=== PATIENT | male | born 1935 | race Native Hawaiian/Other Pacific Islander ===

== ENCOUNTER 2016-11-09 19:40 | Inpatient (IN) | payer MEDICAID ==
[2016-11-09] VITALS (9 sets, daily range): BP systolic 137–165; BP diastolic 62–77; PULSE 63–115; RESP 18–20; TEMP 98.1–98.6; O2SAT 88–100
[~2016-11-09] VITALS: Ht 177.8 cm; Wt 76.0 kg
[~2016-11-09 19:40] MED LIST: LORTA5 PO; METR-1 PO; SULF-154 PO; Z.0.UNKNOWN
[2016-11-09] MEDS ORDERED: ONDANSETRON HCL 4 MG/2 ML VIAL IVP ONE (20:00)
[2016-11-09] MEDS ORDERED: SODIUM CHLORIDE 0.9% FLUSH 10 ML FLUSH IVF PRN ×2 (20:00→22:15)
[2016-11-09 20:22] LABS: AUTOMATED NEUTROPHIL # 2.7 TH/MM3 (1.8-7.7); BASOPHIL % 0.1 % (0.0-2.0); EOSINOPHIL # 0.1 TH/MM3 (0-0.4); EOSINOPHIL % 0.5 % (0.0-4.0); LYMPH % 85.6 % (9.0-44.0); LYMPHOCYTE # 24.8 TH/MM3 (1.0-4.8); MEAN CELL VOLUME 89.3 FL (80.0-100.0); MEAN CORPUSCULAR HEMOGLOBIN 28.2 PG (27.0-34.0); MEAN CORPUSCULAR HGB CONC 31.6 % (32.0-36.0); MONO % 4.5 % (0.0-8.0); NEUT % 9.3 % (16.0-70.0); PLATELET COUNT 243 TH/MM3 (150-450); RED BLOOD COUNT 3.69 MIL/MM3 (4.50-5.90); RED CELL DISTRIBUTION WIDTH 18.8 % (11.6-17.2); WHITE BLOOD COUNT 28.9 TH/MM3 (4.0-11.0)
[2016-11-09] MEDS ORDERED: [UNRECOGNIZED DRUG - OTHER] PO (20:26)
[2016-11-09] MEDS ORDERED: [UNRECOGNIZED DRUG - OTHER] PO (20:26)
[2016-11-09] MEDS ORDERED: VESI5TAB2 PO (20:26)
[2016-11-09] MEDS ORDERED: PROS5TAB PO (20:26)
[2016-11-09] MEDS ORDERED: BISO5TAB5 PO (20:26)
[2016-11-09] MEDS ORDERED: GLIM1 PO (20:26)
[2016-11-09] MEDS ORDERED: TAMS0.4C4 PO (20:26)
--- NOTE | 2016-11-09 20:27 | PD ---
HPI Chief Complaint: Fall Time Seen by Provider: 19:51 Travel History International Travel<30 days: No Contact w/Intl Traveler<30days: No Traveled to known affect area: No History of Present Illness HPI 80-year-old male presents to the emergency department by EMS transport from home with backboard C-spine immobilization after a witnessed fall with loss of consciousness. According to the shrink pit operator report and a family member at bedside patient was walking up towards his family's home and when he went to make a step upwards he caught his foot on the step causing him to lose his balance and fall backwards hitting his head. Patient did have witnessed loss of consciousness. Patient apparently also had vomiting and when the paramedics arrived he was in a right lateral decubitus rescue position. Patient was placed on backboard C-spine immobilization Zofran was administered and there is been no further vomiting since the reported emesis at the scene. Patient continues to complain of nausea and dizziness. Patient does not report any arm or leg numbness or weakness. Patient has history of hypertension and atrial fibrillation. Patient takes only aspirin no other blood thinning agents reportedly. Other family members are en route to the hospital with patient's medications. PFSH Past Medical History Cardiovascular Problems: Yes Social History Alcohol Use: No Tobacco Use: No Allergies-Medications (Allergen,Severity, Reaction): Coded Allergies: Penicillins (Verified Allergy, Unknown, 11/09/16) Reported Meds & Prescriptions Reported Meds & Active Scripts Active Reported Vesicare (Solifenacin) 5 Mg Tab 5 Mg PO DAILY Tamsulosin (Tamsulosin HCl) 0.4 Mg Cap 0.4 Mg PO HS [stugeron] 25 Mg PO DAILY [urilax] 10 Mg PO DAILY Amaryl (Glimepiride) 1 Mg Tab 1 Mg PO DAILY Take with breakfast or first main meal Proscar (Finasteride) 5 Mg Tab 5 Mg PO DAILY Do not crush. Bisoprolol (Bisoprolol Fumarate) 5 Mg Tab 5 Mg PO DAILY Physical Exam Narrative GENERAL: Well-developed well-nourished male in no acute respiratory distress with backboard C-spine immobilization; GCS 14 SKIN: Warm and dry. HEAD: Atraumatic. Normocephalic. Posterior scalp area of erythema without laceration or abrasion. EYES: Pupils equal and round. Extraocular muscles intact. No scleral icterus. No injection or drainage. ENT: No nasal bleeding or discharge. Mucous membranes pink and moist. No hemotympanum bilaterally. NECK: Trachea midline. No JVD. Cervical collar in place. CARDIOVASCULAR: Regular rate and rhythm. RESPIRATORY: No accessory muscle use. Clear to auscultation. Breath sounds equal bilaterally. GASTROINTESTINAL: Abdomen soft, non-tender, nondistended. Hepatic and splenic margins not palpable. MUSCULOSKELETAL: Extremities without clubbing, cyanosis, or edema. No obvious deformities. With maintained spinal immobilization patient has been log rolled from the backboard direct palpation along the thoracic and dorsal spine elicits no pain and no bony step-off no ecchymosis or abrasion. NEUROLOGICAL: Awake and alert. No obvious cranial nerve deficits. Motor grossly within normal limits. Five out of 5 muscle strength in the arms and legs. Normal speech. PSYCHIATRIC: Appropriate mood and affect; insight and judgment normal. Data Data Last Documented VS Vital Signs Date Time Temp Pulse Resp B/P (MAP) Pulse Ox O2 Delivery O2 Flow Rate FiO2 11/09/16 21:20 87 18 161/72 (101) 97 Nasal Cannula 4.00 11/09/16 19:46 98.6 Orders Orders Electrocardiogram (11/09/16 19:51) Complete Blood Count With Diff (11/09/16 19:51) Comprehensive Metabolic Panel (11/09/16 19:51) Magnesium (Mg) (11/09/16 19:51) Act Partial Throm Time (Ptt) (11/09/16 19:51) Prothrombin Time / Inr (Pt) (11/09/16 19:51) Urinalysis - C+S If Indicated (11/09/16 19:51) Chest, Single Ap (11/09/16 19:51) Ct Brain W/O Iv Contrast(Rout) (11/09/16 19:51) Ct Cerv Spine W/O Contrast (11/09/16 19:51) Blood Glucose (11/09/16 19:51) Ecg Monitoring (11/09/16 19:51) Iv Access Insert/Monitor (11/09/16 19:51) Oximetry (11/09/16 19:51) Ondansetron Inj (Zofran Inj) (11/09/16 20:00) Sodium Chloride 0.9% Flush (Ns Flush) (11/09/16 20:00) Type And Screen (11/09/16 21:00) Platelet Pheresis (11/09/16 21:00) Blood Product Administration (11/09/16 21:00) Sodium Chlor 0.9% 250 Ml Inj (Ns 250 Ml (11/09/16 21:00) Admit Order (Ed Use Only) (11/09/16 ) ^ Saline Lock (11/09/16 22:02) Resp Oxygen Adrian C Titrat 1-4 L (11/09/16 ) Notify Dr: Other (11/09/16 22:02) Sodium Chloride 0.9% Flush (Ns Flush) (11/10/16 09:00) Sodium Chloride 0.9% Flush (Ns Flush) (11/09/16 22:15) Labs Laboratory Tests Test 11/09/16 20:05 White Blood Count 28.9 TH/MM3 Red Blood Count 3.69 MIL/MM3 Hemoglobin 10.4 GM/DL Hematocrit 33.0 % Mean Corpuscular Volume 89.3 FL Mean Corpuscular Hemoglobin 28.2 PG Mean Corpuscular Hemoglobin Concent 31.6 % Red Cell Distribution Width 18.8 % Platelet Count 243 TH/MM3 Mean Platelet Volume 7.0 FL Neutrophils (%) (Auto) 9.3 % Lymphocytes (%) (Auto) 85.6 % Monocytes (%) (Auto) 4.5 % Eosinophils (%) (Auto) 0.5 % Basophils (%) (Auto) 0.1 % Neutrophils # (Auto) 2.7 TH/MM3 Lymphocytes # (Auto) 24.8 TH/MM3 Monocytes # (Auto) 1.3 TH/MM3 Eosinophils # (Auto) 0.1 TH/MM3 Basophils # (Auto) 0.0 TH/MM3 CBC Comment AUTO DIFF Differential Total Cells Counted 100 Neutrophils % (Manual) 12 % Lymphocytes % 85 % Monocytes % 3 % Neutrophils # (Manual) 3.5 TH/MM3 Differential Comment FINAL DIFF MANUAL Platelet Estimate NORMAL Platelet Morphology Comment NORMAL Ovalocytes 1+ Keratocytes 1+ Prothrombin Time 12.3 SEC Prothromb Time International Ratio 1.1 RATIO Activated Partial Thromboplast Time 28.6 SEC Blood Urea Nitrogen 14 MG/DL Creatinine 0.62 MG/DL Random Glucose 108 MG/DL Total Protein 5.3 GM/DL Albumin 2.5 GM/DL Calcium Level 6.8 MG/DL Magnesium Level 1.4 MG/DL Alkaline Phosphatase 67 U/L Aspartate Amino Transf (AST/SGOT) 20 U/L Alanine Aminotransferase (ALT/SGPT) 17 U/L Total Bilirubin 0.7 MG/DL Sodium Level 141 MEQ/L Potassium Level 3.3 MEQ/L Chloride Level 111 MEQ/L Carbon Dioxide Level 24.1 MEQ/L Anion Gap 6 MEQ/L Estimat Glomerular Filtration Rate 124 ML/MIN Protein Corrected Calcium 7.7 MG/DL MDM Medical Decision Making Medical Screen Exam Complete: Yes Emergency Medical Condition: Yes Medical Record Reviewed: Yes Interpretation(s) Last Impressions Head CT 11/09/161950 Signed Impressions: Service Date/Time: Wednesday, November 09, 2016 20:14 - CONCLUSION: 1. Small to moderate size subdural hematoma along the right temporal and parietal lobes. 2. Multiple areas of high density intraparenchymal versus subarachnoid hemorrhage. Cj Isidro MD Chest X-Ray 11/09/161950 Signed Impressions: Service Date/Time: Wednesday, November 09, 2016 20:22 - CONCLUSION: Streaky interstitial opacities in both lungs. The chronicity of the findings are not known without prior studies for comparison. This may represent scarring and/or fibrosis. Pulmonary edema is less likely. Cj Isidro MD Cervical Spine CT 11/09/161950 Signed Impressions: Service Date/Time: Wednesday, November 09, 2016 20:14 - CONCLUSION: Negative trauma CT. Cj Isidro MD CBC & BMP Diagram 11/09/16 20:05 Total Protein 5.3 L, Albumin 2.5 L, Calcium Level 6.8 *L, Magnesium Level 1.4 L , Alkaline Phosphatase 67, Aspartate Amino Transf (AST/SGOT) 20, Alanine Aminotransferase (ALT/SGPT) 17, Total Bilirubin 0.7 Differential Diagnosis Minor closed head injury, CHI, skull fracture, concussion, arrhythmia, syncope, electrolyte disturbance, cervical spine sprain strain fracture, cord compression , TIA, CVA Narrative Course Patient placed on performing arts road manager log rolled off the backboard cervical collar remains in place; patient sent for urgent/emergent CT brain noncontrast Patient given additional antirheumatic At 8:35 PM son at bedside states that patient was attempting to step up onto a step of the home lost his balance fell backwards hit his head with immediate loss of consciousness that was estimated at 10-15 minutes during that time frame he did have an episode of 35 minutes of stiffening type tonic movement and then afterwards son rolled him over onto his side and shortly thereafter the patient seemed open his eyes appeared confused and then had an episode of vomiting. Shortly thereafter the patient was verbalizing that he wanted to set up and the son would not let him and shortly thereafter EMS arrived. Cervical collar removed by me after CT imaging reveals no acute abnormality. Patient and family informed of intracranial bleed with need for admission to the [facility] [place]. Call placed to neurosurgeon, Dr. Godfrey @ 9:50 PM Daughter in law at bedside reports recent increased dizziness and balance disturbance from baseline x 2 weeks no recent headaches no severe headaches and no family member holding the patient during fall --near by and witnessed @10 PM patient in ED noted to have increasing blood pressure systolic greater than 160mmHg --nicardipine ordered Ordered morphine sulfate 3 mg IV administered 2 mg as patient did not need additional dose of 1 mg has been wasted and not administered; pain medicine administered for complaint of pain It is [address] Godfrey is at patient's bedside Physician Communication Physician Communication discussed with NS Dr Godfrey will see in the ED and will admit; discussed with trauma surgeon Dr Philip--reports isolated head injury --to NS recommends 2 units platelets now Diagnosis Primary Impression: Subdural hematoma Additional Impression: Concussion Admitting Information Admitting Physician Requests: Admit Jeni William MD Nov 09, 2016 20:27
[2016-11-09 20:30] LABS: HEMO FLAGS AUTO DIFF
[2016-11-09 20:36] LABS: APTT (PATIENT) 28.6 SEC (24.3-30.1); INTERNATIONAL NORMALIZED RATIO 1.1 RATIO; PROTHROMBIN TIME - PATIENT 12.3 SEC (9.8-11.6)
--- NOTE | 2016-11-09 20:38 | RADRPT ---
EXAM DATE/TIME: 11/09/2016 20:14 [facility] COMPARISON: No previous studies available for comparison. INDICATIONS : Acute mental status changes after head trauma.. RADIATION DOSE: 32.43 CTDIvol (mGy) MEDICAL HISTORY : Cardiovascular disease. SURGICAL HISTORY : Non-responsive. ENCOUNTER: Initial ACUITY: 1 day PAIN SCALE: Non-responsive LOCATION: cranial TECHNIQUE: Multiple contiguous axial images were obtained of the head. Using automated exposure control and adj ustment of the mA and/or kV according to patient size, radiation dose was kept as low as reasonably a chievable to obtain optimal diagnostic quality images. DICOM format image data is available electro nically for review and comparison. FINDINGS: There is a high density subdural hematoma along the right frontal and parietal lobes measuring up to approximately 8 mm in transverse diameter. There are multiple areas of high density contusion and/or subarachnoid hemorrhage involving portions of the anterior frontal lobes, right frontal lobe and both high parietal lobes. The ventricular system is within normal limits. There is no midline shift. Diff use moderate atrophic changes noted. The posterior fossa and brainstem are intact. The suprasellar ci sterns are patent. The bone windows demonstrate no evidence of fracture. There soft tissue swelling over the right parie estephania bone. CONCLUSION: 1. Small to moderate size subdural hematoma along the right temporal and parietal lobes. 2. Multiple areas of high density intraparenchymal versus subarachnoid hemorrhage. Cj Isidro MD on November 09, 2016 at 20:31 Board Certified Radiologist. This report was verified electronically.
--- NOTE | 2016-11-09 20:40 | RADRPT ---
EXAM DATE/TIME: 11/09/2016 20:14 [facility] COMPARISON: No previous studies available for comparison. INDICATIONS : Acute mental status change after trauma. Intracranial hemorrhage.. RADIATION DOSE: 21.02 CTDIvol (mGy) MEDICAL HISTORY : Cardiovascular disease. SURGICAL HISTORY : Non-responsive. ENCOUNTER: Initial ACUITY: 1 day PAIN SCALE: Non-responsive LOCATION: neck TECHNIQUE: Volumetric scanning of the cervical spine was performed. Multiplanar reconstructions i n the sagittal, coronal and oblique axial planes were performed. Using automated exposure control a nd adjustment of the mA and/or kV according to patient size, radiation dose was kept as low as reason ably achievable to obtain optimal diagnostic quality images. DICOM format image data is available e lectronically for review and comparison. FINDINGS: The sagittal reconstructions demonstrate normal alignment and normal prevertebral soft tissues. The d ens is intact and there is a normal atlantoaxial relationship. Degenerative disc changes are present at the C3-4 through C6-7 levels with disc space narrowing hypertrophic change. There is diffuse osteo penia. The axial images demonstrate that the vertebral bodies and posterior elements are intact. The soft ti ssues are within normal limits. There is no evidence of acute fracture or malalignment. Degenerative disc and degenerative joint changes are present. CONCLUSION: Negative trauma CT. Cj Isidro MD on November 09, 2016 at 20:37 Board Certified Radiologist. This report was verified electronically.
[2016-11-09 20:44] LABS: BICARBONATE 24.1 MEQ/L (21.0-32.0); CALCIUM-PROTEIN CORRECTED 7.7 MG/DL (8.5-10.1); MAGNESIUM 1.4 MG/DL (1.5-2.5); POTASSIUM 3.3 MEQ/L (3.5-5.1); TOTAL BILIRUBIN ADULT 0.7 MG/DL (0.2-1.0)
--- NOTE | 2016-11-09 20:44 | RADRPT ---
EXAM DATE/TIME: 11/09/2016 20:22 [facility] COMPARISON: No previous studies available for comparison. INDICATIONS : Heart Palpitations, Trauma fall MEDICAL HISTORY : Cardiovascular disease. SURGICAL HISTORY : Non Responsive ENCOUNTER: Initial ACUITY: 1 day PAIN SCORE: Non-responsive. LOCATION: Bilateral chest FINDINGS: A single AP semierect view of the chest was obtained and demonstrates streaky interstitial opacities in both lungs with no focal consolidation or effusion. The heart size is within normal limits. There are mild atherosclerotic changes in the aorta. The bony thorax is intact. CONCLUSION: Streaky interstitial opacities in both lungs. The chronicity of the findings are not known without prior studies for comparison. This may represent scarring and/or fibrosis. Pulmonary ed chen is less likely. Cj Isidro MD on November 09, 2016 at 20:42 Board Certified Radiologist. This report was verified electronically.
[2016-11-09] MEDS ORDERED: SODIUM CHLOR 0.9% 250 ML INJ 250 ML IV ONE (21:00)
[2016-11-09 21:18] LABS: NEUTROPHIL # MANUAL DIFF 3.5 TH/MM3 (1.8-7.7); POLYS (SEG NEUTROPHILS) 12 % (16-70); WBC DIFF SAMPLE 100
[2016-11-09 21:23] LABS: KERATOCYTES 1+ (NORMAL); OVALOCYTES 1+ (NORMAL)
[2016-11-09 21:24] LABS: PLATELET ESTIMATE SMEAR NORMAL (NORMAL); PLATELET MORPHOLOGY NORMAL (NORMAL); SCAN/DIFF FINAL DIFF MANUAL
[2016-11-09] MEDS ORDERED: niCARdipine INJ 25 MG in SODIUM CHLOR 0.9% 250 ML INJ 250 ML IV PRN ×2 (22:15→23:45)
[2016-11-09] MEDS ORDERED: METOCLOPRAMIDE HCL 10 MG/2 ML VIAL IV PUSH ONE (22:30)
[2016-11-09 22:55] LABS: BLOOD, URINE NEG (NEG); COMMENT (UR) CULT NOT INDICATED; CULTURE IF INDICATED CULT NOT INDICATED; GLUCOSE,URINE NEG (NEG); HYALINE CAST, URINE 3 /lpf (RARE); KETONE, URINE 10 mg/dL (NEG); NITRITE,URINE NEG (NEG); PH, URINE 5.5 (5.0-8.5); SQUAMOUS EPITHELIAL CELL URINE <1 /hpf (0-5); URINE COLOR YELLOW (YELLW/STRAW)
[2016-11-09] MEDS ORDERED: MORPHINE SULFATE 4 MG/ML INJ IV PUSH ONE (23:00)
--- NOTE | 2016-11-09 23:44 | HHI.HP ---
HPI Service Neurosurgery Primary Care Physician No Primary Care Physician Chief Complaint: Fall History of Present Illness 80-year-old male who according to his family was going up a step into the house with his cane when he fell backwards, striking the back of his head. He was reportedly unconscious for 10-15 minutes. He then had some shaking in the extremities as he was waking up. He has been somewhat sleepy and a little confused since he woke up at the patient's family states that he is conversing reasonably well with them. He normally is fairly independent, ambulating with a cane and is usually mentally alert with only mild memory loss. Positive emesis reported. Patient has no complaint of headache or neck pain. No complaint of low back or joint pain. Review of Systems Constitutional: DENIES: Fever, Dizziness Eyes: DENIES: Blurred vision Respiratory: COMPLAINS OF: Wheezing, DENIES: Shortness of breath Cardiovascular: DENIES: Chest pain, Palpitations Gastrointestinal: COMPLAINS OF: Nausea, Vomiting, DENIES: Abdominal pain Musculoskeletal: DENIES: Joint pain, Muscle aches Hematologic/lymphatic: DENIES: Bruising Neurologic: COMPLAINS OF: Abnormal gait, Poor Balance, DENIES: Headache, Localized weakness Psychiatric: DENIES: Anxiety, Confusion Past Family Social History Allergies: Coded Allergies: Penicillins (Verified Allergy, Unknown, 11/09/16) Past Medical History Diabetes Hypertension Benign prostate hypertrophy 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 Possible coronary artery disease Past Surgical History Cardiac catheterization Lesion removed from neck Reported Medications Reported Meds & Active Scripts Active Reported Vesicare (Solifenacin) 5 Mg Tab 5 Mg PO DAILY Tamsulosin (Tamsulosin HCl) 0.4 Mg Cap 0.4 Mg PO HS [stugeron] 25 Mg PO DAILY [urilax] 10 Mg PO DAILY Amaryl (Glimepiride) 1 Mg Tab 1 Mg PO DAILY Take with breakfast or first main meal Proscar (Finasteride) 5 Mg Tab 5 Mg PO DAILY Do not crush. Bisoprolol (Bisoprolol Fumarate) 5 Mg Tab 5 Mg PO DAILY Family History Pulmonary disease in his parents. Social History Does not drink alcohol. Has not smoked cigarettes for many years Physical Exam Vital Signs Vital Signs Date Time Temp Pulse Resp B/P (MAP) Pulse Ox O2 Delivery O2 Flow Rate FiO2 11/09/16 23:07 98.1 115 18 137/62 97 11/09/16 22:59 110 18 137/62 (87) 96 Nasal Cannula 5.00 11/09/16 22:37 105 18 155/71 (99) 98 Nasal Cannula 5.00 11/09/16 22:26 99 20 165/77 (106) 98 Nasal Cannula 4.00 11/09/16 22:25 99 171/79 11/09/16 21:20 87 18 161/72 (101) 97 Nasal Cannula 4.00 11/09/16 20:56 93 20 164/69 (100) 100 Nasal Cannula 4.00 11/09/16 19:53 88 Room Air 11/09/16 19:46 98.6 63 20 157/74 (101) 96 Physical Exam GENERAL: This is a well-nourished, well-developed patient, no apparent distress. SKIN: No abrasions, contusion, rash noted. Skin warm and dry. HEAD: Area of abrasion and ecchymosis and mild tenderness over the bilateral posterior parietal-occipital region. EYES: Sclerae are clear and nonicteric ENT: No facial edema or ecchymosis. No periorbital edema. No CSF otorrhea or rhinorrhea. No palpable facial fracture or deformity.. Tympanic membranes clear on the left, not well seen on the right due to cerumen in the external auditory canal NECK: Trachea midline. No cervical spine tenderness. CARDIOVASCULAR: Regular rate and rhythm without murmurs, gallops, or rubs. RESPIRATORY: Clear to auscultation. Breath sounds equal bilaterally. No wheezes , rales, or rhonchi. GASTROINTESTINAL: Abdomen soft, non-tender, nondistended. No hepato-splenomegaly , or palpable masses. No guarding. MUSCULOSKELETAL: Extremities without cyanosis, or edema. No joint tenderness, or edema noted. No calf tenderness. Dorsalis pedis pulses 2+ bilateral NEUROLOGICAL: Mild lethargy He knows his family in the room. Cannot tell the date or where he is. Has poor recollection of the days earlier events. States that he "fell asleep" Speech is slow but clear Says only a few words in response to some questions. Somewhat irritable, particularly when asked to respond to questions. Follow simple commands with moderate difficulty Answers a few questions Diminished and insight Recent and remote memory are moderately diminished No evidence of anxiety or depression. Appears slightly irritable or agitated at times Pupils are equal and reactive to accommodation. Extra-ocular movements, visual magana to confrontation, facial sensorimotor, tongue, palate, sternocleidomastoid testing, hearing to finger rub testing, and bilateral shoulder shrug are all intact. Sensation is intact to light touch in all extremities Strength normal major flexion and extension groups all extremities Que's absent bilaterally No ankle clonus Plantar responses absent bilateral Fine motor movements intact upper extremities Laboratory Laboratory Tests Test 11/09/16 20:05 11/09/16 22:44 White Blood Count 28.9 Red Blood Count 3.69 Hemoglobin 10.4 Hematocrit 33.0 Mean Corpuscular Volume 89.3 Mean Corpuscular Hemoglobin 28.2 Mean Corpuscular Hemoglobin Concent 31.6 Red Cell Distribution Width 18.8 Platelet Count 243 Mean Platelet Volume 7.0 Neutrophils (%) (Auto) 9.3 Lymphocytes (%) (Auto) 85.6 Monocytes (%) (Auto) 4.5 Eosinophils (%) (Auto) 0.5 Basophils (%) (Auto) 0.1 Neutrophils # (Auto) 2.7 Lymphocytes # (Auto) 24.8 Monocytes # (Auto) 1.3 Eosinophils # (Auto) 0.1 Basophils # (Auto) 0.0 CBC Comment AUTO DIFF Differential Total Cells Counted 100 Neutrophils % (Manual) 12 Lymphocytes % 85 Monocytes % 3 Neutrophils # (Manual) 3.5 Differential Comment FINAL DIFF MANUAL Platelet Estimate NORMAL Platelet Morphology Comment NORMAL Ovalocytes 1+ Keratocytes 1+ Prothrombin Time 12.3 Prothromb Time International Ratio 1.1 Activated Partial Thromboplast Time 28.6 Blood Urea Nitrogen 14 Creatinine 0.62 Random Glucose 108 Total Protein 5.3 Albumin 2.5 Calcium Level 6.8 Magnesium Level 1.4 Alkaline Phosphatase 67 Aspartate Amino Transf (AST/SGOT) 20 Alanine Aminotransferase (ALT/SGPT) 17 Total Bilirubin 0.7 Sodium Level 141 Potassium Level 3.3 Chloride Level 111 Carbon Dioxide Level 24.1 Anion Gap 6 Estimat Glomerular Filtration Rate 124 Protein Corrected Calcium 7.7 Urine Color YELLOW Urine Turbidity CLEAR Urine pH 5.5 Urine Specific [place] 1.014 Urine Protein NEG Urine Glucose (UA) NEG Urine Ketones 10 Urine Occult Blood NEG Urine Nitrite NEG Urine Bilirubin NEG Urine Urobilinogen LESS THAN 2.0 Urine Leukocyte Esterase NEG Urine RBC 1 Urine WBC 1 Urine Squamous Epithelial Cells <1 Urine Hyaline Casts 3 Microscopic Urinalysis Comment CULT NOT INDICATED Result Diagram: 11/09/16200411/09/162004 Imaging 11/09/2016 CT scan head and cervical spine images are reviewed by the undersigned. Agree with findings as noted below: Head CT 11/09/161950 Signed Impressions: Service Date/Time: Wednesday, November 09, 2016 20:14 - CONCLUSION: 1. Small to moderate size subdural hematoma along the right temporal and parietal lobes. 2. Multiple areas of high density intraparenchymal versus subarachnoid hemorrhage. Cj Isidro MD Chest X-Ray 11/09/161950 Signed Impressions: Service Date/Time: Wednesday, November 09, 2016 20:22 - CONCLUSION: Streaky interstitial opacities in both lungs. The chronicity of the findings are not known without prior studies for comparison. This may represent scarring and/or fibrosis. Pulmonary edema is less likely. Cj Isidro MD Cervical Spine CT 11/09/161950 Signed Impressions: Service Date/Time: Wednesday, November 09, 2016 20:14 - CONCLUSION: Negative trauma CT. MD Gómez Cabrera VTE Risk Assessment Juani VTE Risk Assessment: No/Low Risk (score <= 1) VTE Pharm Contraindication: Hemorrhage Caprini Risk Assessment Model Point Value = 1 Point Value = 2 Point Value = 3 Point Value = 5 Age 41-60 Minor surgery BMI > 25 kg/m2 Swollen legs Varicose veins or History of unexplained or recurrent spontaneous Oral contraceptives or hormone replacement Sepsis (< 1 month) Serious lung disease, including pneumonia (< 1 month) Abnormal pulmonary function Acute myocardial infarction Congestive heart failure (< 1 month) History of inflammatory bowel disease Medical patient at bed rest Age 61-74 Arthroscopic surgery Major open surgery (> 45 min) Laparoscopic surgery (> 45 min) Malignancy Confined to bed (> 72 hours) Immobilizing plaster cast Central venous access Age >= 75 History of VTE Family history of VTE Factor V Leiden Prothrombin [id number] Lupus anticoagulant Anticardiolipin antibodies Elevated serum homocysteine Heparin-induced thrombocytopenia Other congenital or acquired thrombophilia Stroke (< 1 month) Elective arthroplasty Hip, pelvis, or leg fracture Acute spinal cord injury (< 1 month) Prophylaxis Regimen Total Risk Factor Score Risk Level Prophylaxis Regimen 0-1 Low Early ambulation 2 Moderate Order ONE of the following: *Sequential Compression Device (SCD) *Heparin 5000 units SQ BID 3-4 Higher Order ONE of the following medications: *Heparin 5000 units SQ TID *Enoxaparin/Lovenox 40 mg SQ daily (WT < 150 kg, CrCl > 30 mL/min) *Enoxaparin/Lovenox 30 mg SQ daily (WT < 150 kg, CrCl > 10-29 mL/min) *Enoxaparin/Lovenox 30 mg SQ BID (WT < 150 kg, CrCl > 30 mL/min) AND/OR *Sequential Compression Device (SCD) 5 or more Highest Order ONE of the following medications: *Heparin 5000 units SQ TID (Preferred with Epidurals) *Enoxaparin/Lovenox 40 mg SQ daily (WT < 150 kg, CrCl > 30 mL/min) *Enoxaparin/Lovenox 30 mg SQ daily (WT < 150 kg, CrCl > 10-29 mL/min) *Enoxaparin/Lovenox 30 mg SQ BID (WT < 150 kg, CrCl > 30 mL/min) AND *Sequential Compression Device (SCD) Assessment and Plan Assessment and Plan Impression: 1. Traumatic brain injury 2. Hypertension 3. Diabetes Plan: Patient will be admitted to intensive surgical care unit for close neurologic checks. Continue present diabetic medications with insulin sliding scale Continue nicardipine IV drip initially for blood pressure control with maintenance of the patient's previous antihypertensive medications and additional when necessary medications. Non-chemical DVT prophylaxis Ulcer prophylaxis Physical therapy evaluation with cautious mobilization out of bed. Follow up CT scan head Tony Godfrey MD Nov 09, 2016 23:44
[2016-11-09] MEDS ORDERED: GLUCAGON 1 MG/ML VIAL OTHER PRN (23:45)
[2016-11-09] MEDS ORDERED: ONDANSETRON HCL 4 MG/2 ML VIAL IV PRN (23:45)
[2016-11-10] VITALS (15 sets, daily range): BP systolic 108–127; BP diastolic 52–76; PULSE 88–132; RESP 14–22; TEMP 98.1–101.5; O2SAT 91–100
[2016-11-10] MEDS: NS + KCL 20 MEQ INJ 1,000 ML IV SCH ×3 (00:20→21:27)
--- NOTE | 2016-11-10 00:32 | PD.CONS ---
[facility] By Dr. Godfrey Reason for Consult HTN, and other chronic medical conditions Primary Care Physician No Primary Care Physician Diagnoses: History of Present Illness Written by GILBERTO Patiño acting as scribe for [Eddi] on 11/10/16 at 00: 22. 80 y/o with a history of HTN, DM, and BPH presented to the ED after a fall at home, with a LOC for 10-15 mins. Patient walks with a cane and fell backwards and hit his head. [facility] was consulted for management of HTN, and chronic conditions. Patient is oriented to person and place. He denies any pain, or headaches. Family is currently at bedside for questioning. Per the family patient has had a productive cough that they have noticed. Denies any fevers. 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 Bisoprolol (Bisoprolol Fumarate) 5 Mg Tab 5 Mg PO DAILY Active Ordered Medications Current Medications Medications (Trade) Dose Ordered Sig/Gregg Route Start Time Stop Time Status Last Admin Sodium Chloride 250 ml @ 15 mls/hr ONCE ONCE IV 11/09/16 21:00 11/10/16 13:39 11/09/16 23:09 (NS Flush) 2 ml BID IV FLUSH 11/10/16 09:00 (NS Flush) 2 ml UNSCH PRN IVF 11/09/16 22:15 (Proscar) 5 mg DAILY PO 11/10/16 09:00 (Amaryl) 1 mg DAILY PO 11/10/16 09:00 (Flomax) 0.4 mg HS PO 11/10/16 21:00 (Zebeta) 5 mg DAILY PO 11/10/16 09:00 (Detrol La) 2 mg DAILY PO 11/10/16 09:00 Nicardipine HCl 25 mg/Sodium Chloride 260 ml @ 52 mls/hr TITRATE PRN IV 11/09/16 23:45 (Colace) 100 mg BID PO 11/10/16 09:00 (Protonix) 40 mg DAILY PO 11/10/16 09:00 (Zofran Inj) 4 mg Q6H PRN IV 11/09/16 23:45 Potassium Chloride/Sodium Chloride 1,000 ml @ 84 mls/hr [id number] IV 11/09/16 23:45 11/10/16 00:20 (D50w (Vial) Inj) 50 ml UNSCH PRN IV 11/09/16 23:45 (Glucagon Inj) 1 mg UNSCH PRN OTHER 11/09/16 23:45 (NovoLIN R SUPPLEMENTAL SCALE) 1 ACHS SLIDING SCALE SQ 11/10/16 07:00 Family History Unknown family history Social History Tobacco use: prior smoker quit 1994 Alcohol use: Denies Physical Exam Vital Signs Vital Signs Date Time Temp Pulse Resp B/P (MAP) Pulse Ox O2 Delivery O2 Flow Rate FiO2 11/10/16 00:10 110 18 119/55 (76) 98 Nasal Cannula 4.00 11/09/16 23:42 98.3 109 18 137/62 97 11/09/16 23:07 98.1 115 18 137/62 97 11/09/16 22:59 110 18 137/62 (87) 96 Nasal Cannula 5.00 11/09/16 22:37 105 18 155/71 (99) 98 Nasal Cannula 5.00 11/09/16 22:26 99 20 165/77 (106) 98 Nasal Cannula 4.00 11/09/16 22:25 99 171/79 11/09/16 21:20 87 18 161/72 (101) 97 Nasal Cannula 4.00 11/09/16 20:56 93 20 164/69 (100) 100 Nasal Cannula 4.00 11/09/16 19:53 88 Room Air 11/09/16 19:46 98.6 63 20 157/74 (101) 96 Physical Exam GENERAL: This is a well-nourished, well-developed patient, in no apparent distress. SKIN: No rashes, ecchymoses or lesions. Cool and dry. HEAD: Atraumatic. Normocephalic. No temporal or scalp tenderness. EYES: Pupils equal round and reactive. Extraocular motions intact. ENT: Nose without bleeding, purulent drainage or septal hematoma. Airway patent. NECK: Trachea midline. No JVD or lymphadenopathy. CARDIOVASCULAR: Tachycardic rate and sinus rhythm without murmurs, gallops, or rubs. RESPIRATORY: No wheezes, rales, or rhonchi. Left lung base with crackles. GASTROINTESTINAL: Abdomen soft, non-tender, nondistended. No hepato-splenomegaly , or palpable masses. No guarding. MUSCULOSKELETAL: Extremities without clubbing, cyanosis, or edema. No joint tenderness, effusion, or edema noted. No calf tenderness. NEUROLOGICAL: Alert and oriented to person and place. Motor and sensory grossly within normal limits. Normal speech. Laboratory Laboratory Tests Test 11/09/16 20:05 11/09/16 22:44 White Blood Count 28.9 Red Blood Count 3.69 Hemoglobin 10.4 Hematocrit 33.0 Mean Corpuscular Volume 89.3 Mean Corpuscular Hemoglobin 28.2 Mean Corpuscular Hemoglobin Concent 31.6 Red Cell Distribution Width 18.8 Platelet Count 243 Mean Platelet Volume 7.0 Neutrophils (%) (Auto) 9.3 Lymphocytes (%) (Auto) 85.6 Monocytes (%) (Auto) 4.5 Eosinophils (%) (Auto) 0.5 Basophils (%) (Auto) 0.1 Neutrophils # (Auto) 2.7 Lymphocytes # (Auto) 24.8 Monocytes # (Auto) 1.3 Eosinophils # (Auto) 0.1 Basophils # (Auto) 0.0 CBC Comment AUTO DIFF Differential Total Cells Counted 100 Neutrophils % (Manual) 12 Lymphocytes % 85 Monocytes % 3 Neutrophils # (Manual) 3.5 Differential Comment FINAL DIFF MANUAL Platelet Estimate NORMAL Platelet Morphology Comment NORMAL Ovalocytes 1+ Keratocytes 1+ Prothrombin Time 12.3 Prothromb Time International Ratio 1.1 Activated Partial Thromboplast Time 28.6 Blood Urea Nitrogen 14 Creatinine 0.62 Random Glucose 108 Total Protein 5.3 Albumin 2.5 Calcium Level 6.8 Magnesium Level 1.4 Alkaline Phosphatase 67 Aspartate Amino Transf (AST/SGOT) 20 Alanine Aminotransferase (ALT/SGPT) 17 Total Bilirubin 0.7 Sodium Level 141 Potassium Level 3.3 Chloride Level 111 Carbon Dioxide Level 24.1 Anion Gap 6 Estimat Glomerular Filtration Rate 124 Protein Corrected Calcium 7.7 Urine Color YELLOW Urine Turbidity CLEAR Urine pH 5.5 Urine Specific [place] 1.014 Urine Protein NEG Urine Glucose (UA) NEG Urine Ketones 10 Urine Occult Blood NEG Urine Nitrite NEG Urine Bilirubin NEG Urine Urobilinogen LESS THAN 2.0 Urine Leukocyte Esterase NEG Urine RBC 1 Urine WBC 1 Urine Squamous Epithelial Cells <1 Urine Hyaline Casts 3 Microscopic Urinalysis Comment CULT NOT INDICATED Result Diagram: 11/09/16200411/09/162004 Imaging Last Impressions Head CT 11/09/161950 Signed Impressions: Service Date/Time: Wednesday, November 09, 2016 20:14 - CONCLUSION: 1. Small to moderate size subdural hematoma along the right temporal and parietal lobes. 2. Multiple areas of high density intraparenchymal versus subarachnoid hemorrhage. Cj Isidro MD Chest X-Ray 11/09/161950 Signed Impressions: Service Date/Time: Wednesday, November 09, 2016 20:22 - CONCLUSION: Streaky interstitial opacities in both lungs. The chronicity of the findings are not known without prior studies for comparison. This may represent scarring and/or fibrosis. Pulmonary edema is less likely. Cj Isidro MD Cervical Spine CT 11/09/161950 Signed Impressions: Service Date/Time: Wednesday, November 09, 2016 20:14 - CONCLUSION: Negative trauma CT. Cj Isidro MD Assessment and Plan Problem List: (1) Subdural hematoma ICD Code: I62.00 - Nontraumatic subdural hemorrhage, unspecified Status: Acute (2) Diabetes ICD Code: E11.9 - Type 2 diabetes mellitus without complications (3) Leukocytosis ICD Code: D72.829 - Elevated white blood cell count, unspecified Status: Acute (4) HTN (hypertension) ICD Code: I10 - Essential (primary) hypertension Status: Chronic Assessment and Plan 80 y/o with a history of HTN, DM, and BPH presented to the ED after a fall at home, with a LOC for 10-15 mins. Subdural hematoma Head CT reviewed and shows small to moderate size subdural hematoma along the right temporal and parietal lobes. -Managed by neurosurgery -Neuro checks Leukocytosis, wbc 28.9, unknown etiology, suspected stress, will treat empirically for cough -Levaquin IV daily -Incentive spirometer -Duonebs prn -Trend CBC in AM HTN, currently elevated, likely due to stress of fall -Cont home medications -Cardene drip PRN -Monitor vitals DM, chronic -Accu checks with SSI -Hold home PO meds for now -A1C ordered DVT prophylaxis: SCDs, hold chemical due to subdural Discussed Condition With Patient and Family This note was transcribed by scribe [Mariam Hoffman]. I, Dr. Montana Montague personally performed the history, physical exam, and medical decision making; and confirmed the accuracy of the information in the transcribed note. Authenticated by Dr. Montana Montague on 11/10/16 at 00:41. Mariam Hoffman Nov 10, 2016 00:32 Montana Montague MD Nov 10, 2016 01:41
[2016-11-10] MEDS ORDERED: MAGNESIUM SULFATE 1 GM PREMIX 100 ML IV ONE (01:45)
[2016-11-10] MEDS ORDERED: ACETAMINOPHEN 325 MG TAB PO PRN (01:45)
[2016-11-10] MEDS: LEVOFLOXACIN 750 MG PREMIX INJ 150 ML IV SCH (02:44)
--- NOTE | 2016-11-10 05:26 | RADRPT ---
EXAM DATE/TIME: 11/10/2016 04:50 [facility] COMPARISON: CT BRAIN W/O CONTRAST, November 09, 2016, 20:14. INDICATIONS : Follow up bleed. RADIATION DOSE: 32.44 CTDIvol (mGy) MEDICAL HISTORY : Hypertension. SURGICAL HISTORY : None. ENCOUNTER: Subsequent ACUITY: 1 day PAIN SCALE: Non-responsive LOCATION: cranial TECHNIQUE: Multiple contiguous axial images were obtained of the head. Using automated exposure control and adj ustment of the mA and/or kV according to patient size, radiation dose was kept as low as reasonably a chievable to obtain optimal diagnostic quality images. DICOM format image data is available electro nically for review and comparison. FINDINGS: Right greater than left bilateral subdural, subarachnoid and parenchymal hemorrhage again seen, all s lightly worse in the interim the right convexity subdural blood extends more posteriorly now to invol ve the occipital and posterior parietal lobes. It continues to measure around 8 mm in maximal thickne ss. There is increased parenchymal hemorrhage, most conspicuously of the right frontal lobe on series 4 image 17 and left frontal lobe on series 4 image 11. Blood in between the leaves of the tentorium and posterior falx has developed. There remains no midline shift. No mass lesion. No evidence of an acute ischemic event. CONCLUSION: Evolving and generally increased right greater than left subdural, parenchymal and subarachnoid blood . Please see above. Still no midline shift. Lonnie Carroll MD on November 10, 2016 at 5:20 Board Certified Radiologist. This report was verified electronically.
[2016-11-10] MEDS: INSULIN NovoLIN REGULAR SUPPLEMENTAL SCALE SQ SCH ×4 (07:00→21:00)
[2016-11-10 07:12] LABS: AUTOMATED NEUTROPHIL # 14.9 TH/MM3 (1.8-7.7); BASOPHIL # 0.1 TH/MM3 (0-0.2); BASOPHIL % 0.3 % (0.0-2.0); HEMATOCRIT 31.8 % (39.0-51.0); LYMPH % 57.9 % (9.0-44.0); LYMPHOCYTE # 22.7 TH/MM3 (1.0-4.8); MEAN CELL VOLUME 89.9 FL (80.0-100.0); MEAN CORPUSCULAR HEMOGLOBIN 29.4 PG (27.0-34.0); MEAN CORPUSCULAR HGB CONC 32.7 % (32.0-36.0); MONO % 3.7 % (0.0-8.0); NEUT % 38.1 % (16.0-70.0); PLATELET COUNT 239 TH/MM3 (150-450); RED BLOOD COUNT 3.53 MIL/MM3 (4.50-5.90); RED CELL DISTRIBUTION WIDTH 18.5 % (11.6-17.2); WHITE BLOOD COUNT 39.2 TH/MM3 (4.0-11.0)
[2016-11-10 07:16] LABS: HEMO FLAGS AUTO DIFF
[2016-11-10 07:28] LABS: APTT (PATIENT) 29.1 SEC (24.3-30.1); INTERNATIONAL NORMALIZED RATIO 1.1 RATIO; PROTHROMBIN TIME - PATIENT 12.2 SEC (9.8-11.6)
[2016-11-10 07:38] LABS: BICARBONATE 23.3 MEQ/L (21.0-32.0)
[2016-11-10] MEDS: BISOPROLOL FUMARATE 5 MG TAB PO SCH (09:00)
[2016-11-10 09:59] LABS: BANDS 8 % (0-6); EOSINOPHILS 2 % (0-4); NEUTROPHIL # MANUAL DIFF 12.2 TH/MM3 (1.8-7.7); POLYS (SEG NEUTROPHILS) 23 % (16-70); WBC DIFF SAMPLE 100
[2016-11-10 10:00] LABS: PLATELET ESTIMATE SMEAR NORMAL (NORMAL); PLATELET MORPHOLOGY NORMAL (NORMAL); SCAN/DIFF FINAL DIFF MANUAL; SMUDGE CELLS PRESENT PRESENT
[2016-11-10] MEDS: FINASTERIDE 5 MG TAB PO SCH (10:13)
[2016-11-10] MEDS: PANTOPRAZOLE SOD 40 MG DELAYED RELEASE TAB PO SCH (10:13)
[2016-11-10] MEDS: SODIUM CHLORIDE 0.9% FLUSH 10 ML FLUSH IV FLUSH SCH ×2 (10:13→21:26)
[2016-11-10] MEDS: DOCUSATE SODIUM 100 MG CAP PO SCH ×2 (10:13→21:26)
[2016-11-10] MEDS: GLIMEPIRIDE 1 MG TAB PO SCH (10:23)
[2016-11-10] MEDS: TOLTERODINE TARTRATE 2 MG CAP LA PO SCH (10:23)
--- NOTE | 2016-11-10 11:12 | HHI.PR ---
Subjective Remarks Follow-up subdural hematoma/metabolic encephalopathy 11/10/16-patient seen and examined him alert and oriented to self and place however with some confusion. Patient complains of headaches or denies any visual change. Son by the bedside. BP improved. WBC worsening Objective Vitals Vital Signs Date Time Temp Pulse Resp B/P (MAP) Pulse Ox O2 Delivery O2 Flow Rate FiO2 11/10/16 06:00 100 11/10/16 05:20 105 118/57 11/10/16 04:00 105 11/10/16 04:00 99.5 105 17 118/57 (77) 100 11/10/16 02:00 110 11/10/16 01:15 101.5 132 18 125/76 (92) 91 11/10/16 01:15 132 11/10/16 00:55 11/10/16 00:15 98.1 105 18 127/67 98 11/10/16 00:10 110 18 119/55 (76) 98 Nasal Cannula 4.00 11/09/16 23:42 98.3 109 18 137/62 97 11/09/16 23:07 98.1 115 18 137/62 97 11/09/16 22:59 110 18 137/62 (87) 96 Nasal Cannula 5.00 11/09/16 22:37 105 18 155/71 (99) 98 Nasal Cannula 5.00 11/09/16 22:26 99 20 165/77 (106) 98 Nasal Cannula 4.00 11/09/16 22:25 99 171/79 11/09/16 21:20 87 18 161/72 (101) 97 Nasal Cannula 4.00 11/09/16 20:56 93 20 164/69 (100) 100 Nasal Cannula 4.00 11/09/16 19:53 88 Room Air 11/09/16 19:46 98.6 63 20 157/74 (101) 96 I/O 11/09/16 11/09/16 11/09/16 11/10/16 11/10/16 11/10/16 06:59 14:59 22:59 06:59 14:59 22:59 Intake Total 1068 ml Output Total 1500 ml Balance -432 ml Intake IV Total 460 ml Platelets 578 ml Blood Product IV Normal Saline Flush 30 ml Output Urine Total 1500 ml Result Diagram: 11/10/16 0600 11/10/16 06 Imaging Last Impressions Head CT 11/10/16599 Signed Impressions: Service Date/Time: Thursday, November 10, 2016 04:50 - CONCLUSION: Evolving and generally increased right greater than left subdural, parenchymal and subarachnoid blood. Please see above. Still no midline shift. Lonnie Carroll MD Chest X-Ray 11/09/161950 Signed Impressions: Service Date/Time: Wednesday, November 09, 2016 20:22 - CONCLUSION: Streaky interstitial opacities in both lungs. The chronicity of the findings are not known without prior studies for comparison. This may represent scarring and/or fibrosis. Pulmonary edema is less likely. Cj Isidro MD Cervical Spine CT 11/09/161950 Signed Impressions: Service Date/Time: Wednesday, November 09, 2016 20:14 - CONCLUSION: Negative trauma CT. Cj Isidro MD Objective Remarks GENERAL: NAD however confused SKIN: Warm and dry. HEAD: Normocephalic. EYES: No scleral icterus. No injection or drainage. NECK: Supple, trachea midline. No JVD or lymphadenopathy. CARDIOVASCULAR: Regular rate and rhythm without murmurs, gallops, or rubs. RESPIRATORY: Breath sounds equal bilaterally. No accessory muscle use. GASTROINTESTINAL: Abdomen soft, non-tender, nondistended. MUSCULOSKELETAL: No cyanosis, or edema. BACK: Nontender without obvious deformity. No CVA tenderness. A/P Problem List: (1) Subdural hematoma ICD Code: I62.00 - Nontraumatic subdural hemorrhage, unspecified Status: Acute (2) Diabetes ICD Code: E11.9 - Type 2 diabetes mellitus without complications (3) Leukocytosis ICD Code: D72.829 - Elevated white blood cell count, unspecified Status: Acute (4) HTN (hypertension) ICD Code: I10 - Essential (primary) hypertension Status: Chronic Assessment and Plan 80 y/o with Subdural hematoma -Head CT reviewed and shows small to moderate size subdural hematoma along the right temporal and parietal lobes -Repeat head CT 11/10/16 evolving and worsening -Managed by neurosurgery -Neuro checks Leukocytosis -Worsening WBC -UA negative and CXR with opacities -Check Blood culture and sputum -Continue empiric Levaquin IV daily HTN, currently elevated, likely due to stress of fall -s/p Cardene drip PRN and continue with home medication DM, chronic -Accu checks with SSI -Hold home PO meds for now -A1C pending DVT prophylaxis: SCDs, hold chemical due to subdural Pontey,Chay VASQUES Nov 10, 2016 11:12
[2016-11-10 11:19] LABS: HEMOGLOBIN A1a 1.1 %; HEMOGLOBIN A1b 2.1 %; HEMOGLOBIN Ao 84.3 %; HEMOGLOBIN P3 4.1 %
--- NOTE | 2016-11-10 11:48 | HHI.NSPN ---
(Carol Lino) Note Status Status: Progress Note (Carol Lino) Interval History Interval History 80-year-old male who according to his family was going up a step into the house with his cane when he fell backwards, striking the back of his head. He was reportedly unconscious for 10-15 minutes. He then had some shaking in the extremities as he was waking up. He has been somewhat sleepy and a little confused since he woke up at the patient's family states that he is conversing reasonably well with them. He normally is fairly independent, ambulating with a cane and is usually mentally alert with only mild memory loss. Positive emesis reported. Patient has no complaint of headache or neck pain. No complaint of low back or joint pain. 11/10: nursing reports agitated overnight, currently sleeping. f/u CT Head completed, moves all four extremities. son translated - oriented to name and place only. (Carol Lino) Labs, Micro, & Vital Signs Results Date Time Temp Pulse Resp B/P (MAP) Pulse Ox O2 Delivery O2 Flow Rate FiO2 11/10/16 06:00 100 11/10/16 05:20 105 118/57 11/10/16 04:00 105 11/10/16 04:00 99.5 105 17 118/57 (77) 100 11/10/16 02:00 110 11/10/16 01:15 101.5 132 18 125/76 (92) 91 11/10/16 01:15 132 11/10/16 00:55 11/10/16 00:15 98.1 105 18 127/67 98 11/10/16 00:10 110 18 119/55 (76) 98 Nasal Cannula 4.00 11/09/16 23:42 98.3 109 18 137/62 97 11/09/16 23:07 98.1 115 18 137/62 97 11/09/16 22:59 110 18 137/62 (87) 96 Nasal Cannula 5.00 11/09/16 22:37 105 18 155/71 (99) 98 Nasal Cannula 5.00 11/09/16 22:26 99 20 165/77 (106) 98 Nasal Cannula 4.00 11/09/16 22:25 99 171/79 11/09/16 21:20 87 18 161/72 (101) 97 Nasal Cannula 4.00 11/09/16 20:56 93 20 164/69 (100) 100 Nasal Cannula 4.00 11/09/16 19:53 88 Room Air 11/09/16 19:46 98.6 63 20 157/74 (101) 96 Constitutional Vital Signs Date Time Temp Pulse Resp B/P (MAP) Pulse Ox O2 Delivery O2 Flow Rate FiO2 11/10/16 06:00 100 11/10/16 05:20 105 118/57 11/10/16 04:00 105 11/10/16 04:00 99.5 105 17 118/57 (77) 100 11/10/16 02:00 110 11/10/16 01:15 101.5 132 18 125/76 (92) 91 11/10/16 01:15 132 11/10/16 00:55 11/10/16 00:15 98.1 105 18 127/67 98 11/10/16 00:10 110 18 119/55 (76) 98 Nasal Cannula 4.00 11/09/16 23:42 98.3 109 18 137/62 97 11/09/16 23:07 98.1 115 18 137/62 97 11/09/16 22:59 110 18 137/62 (87) 96 Nasal Cannula 5.00 11/09/16 22:37 105 18 155/71 (99) 98 Nasal Cannula 5.00 11/09/16 22:26 99 20 165/77 (106) 98 Nasal Cannula 4.00 11/09/16 22:25 99 171/79 11/09/16 21:20 87 18 161/72 (101) 97 Nasal Cannula 4.00 11/09/16 20:56 93 20 164/69 (100) 100 Nasal Cannula 4.00 11/09/16 19:53 88 Room Air 11/09/16 19:46 98.6 63 20 157/74 (101) 96 (Carol Lino) Review of Systems ROS Limitations: Altered Mental Status (Carol Lino) Physical Exam Asleep but arousable, appears drowsy. per son's translation oriented to name and place only, not to time. Followed only simple commands CN: pupils 3-4 mm b/l. facial motor symmetric Left eye cataract Motor: generalized weakness but moved all four extremities against gravity to command Sensory: withdraw to local pain stimuli x 4 Cerebellar: cannot assess due to clinical condition Plantar response flexors b/l No ankle clonus (Carol Lino) The patient is lethargic but arousable Cranial nerve examination demonstrates the right pupil round, and reactive to light. Left eye cataract. Extra-ocular movements are intact with normal convergence. Facial motor function appears normal and symmetrical. Face sensation, hearing, visual magana, and olfaction can not be assessed properly due to the patients condition. The patient has an intact corneal reflex and a gag reflex. Sternocleidomastoid and trapezius have normal and symmetrical strength. Other cranial nerves are intact. Neck is soft and supple. Motor: generalized weakness but moved all four extremities against gravity to command Sensory: withdraw to local pain stimuli x 4 Deep tendon reflexes are 1+ and symmetrical in the biceps, triceps, and brachioradialis, bilaterally, in the upper extremities. In the lower extremities , the patellar and Achilles are 1+, bilaterally. There is a bilateral plantar flexion response. Hoffmanns sign is negative. There is no clonus Cerebellar examination is limited due to the patient condition (Mt Gordon MD) Medications Current Medications Current Medications Medications (Trade) Dose Ordered Sig/Gregg Route PRN Reason Start Time Stop Time Status Last Admin Dose Admin Sodium Chloride 250 ml @ 15 mls/hr ONCE ONCE IV 11/09/16 21:00 11/10/16 13:39 11/09/16 23:09 Sodium Chloride (NS Flush) 2 ml BID IV FLUSH 11/10/16 09:00 11/10/16 10:13 Sodium Chloride (NS Flush) 2 ml UNSCH PRN IVF FLUSH AFTER USING IV ACCESS 11/09/16 22:15 Finasteride (Proscar) 5 mg DAILY PO 11/10/16 09:00 11/10/16 10:13 Glimepiride (Amaryl) 1 mg DAILY PO 11/10/16 09:00 11/10/16 10:23 Tamsulosin HCl (Flomax) 0.4 mg HS PO 11/10/16 21:00 Bisoprolol Fumarate (Zebeta) 5 mg DAILY PO 11/10/16 09:00 Tolterodine Tartrate (Detrol La) 2 mg DAILY PO 11/10/16 09:00 11/10/16 10:23 Nicardipine HCl 25 mg/Sodium Chloride 260 ml @ 52 mls/hr TITRATE PRN IV SYS BP GREATER THAN 150 MMHG 11/09/16 23:45 Docusate Sodium (Colace) 100 mg BID PO 11/10/16 09:00 11/10/16 10:13 Pantoprazole Sodium (Protonix) 40 mg DAILY PO 11/10/16 09:00 11/10/16 10:13 Ondansetron HCl (Zofran Inj) 4 mg Q6H PRN IV NAUSEA OR VOMITING 11/09/16 23:45 Potassium Chloride/Sodium Chloride 1,000 ml @ 84 mls/hr [id number] IV 11/09/16 23:45 11/10/16 00:20 Dextrose (D50w (Vial) Inj) 50 ml UNSCH PRN IV HYPOGLYCEMIA-SEE COMMENTS 11/09/16 23:45 Glucagon (Glucagon Inj) 1 mg UNSCH PRN OTHER HYPOGLYCEMIA-SEE COMMENTS 11/09/16 23:45 Insulin Human Regular (NovoLIN R SUPPLEMENTAL SCALE) 1 ACHS SLIDING SCALE SQ 11/10/16 07:00 11/10/16 07:00 Levofloxacin/ Dextrose 150 ml @ 100 mls/hr Q24H IV 11/10/16 01:00 11/10/16 02:44 Acetaminophen (Tylenol) 650 mg Q4H PRN PO FEVER 11/10/16 01:45 (Carol Lino) Medical Decision Making MDM Remarks 80 y/o male 1. Traumatic brain injury following fall, f/u CT Head 11/10/16 with slight increase of right subdural hematoma and left frontal hematoma w/o midline shift 2. Hypertension 3. Diabetes (Carol Lino) Plan Plan Remarks f/u CT Head reviewed by Dr. Gordon, cont nonsurgical management, cont close neuro checks in ISC clear to start diet, advance as tolerated, PT eval with cautious mobilization OOB nonchemical dvt prophylaxis in view of acute ICH Protonix for stress ulcer prophylaxis dw son in room, and dw nursing staff (Carol Lino) Attending Statement Continue neuro checks. Pulmonary.. Continue aggressive pulmonary toilette, nasotracheal suction, and breathing treatments with nebulizers. Renal. monitor closely urine output, BUN and creatinine Endocrine. Monitor serial Acu checks and SSI as needed in detail ID monitor for signs of infection Protonix for stress ulcer prophylaxis Sterling hose and SCD's for DVT prophylaxis. The exam, history, and the medical decision-making described in the above note were completed with the assistance of the mid-level provider. I reviewed and agree with the findings presented. I attest that I had a [id number] encounter with the patient on the same day, and personally performed and documented my assessment and findings in the medical record. (Mt Gordon MD) Carol Lino Nov 10, 2016 11:48 Mt Gordon MD Nov 10, 2016 13:15
[2016-11-10] MEDS ORDERED: ACETAMINOPHEN/HYDROcodone 325 MG/10 MG TAB PO PRN (17:00)
[2016-11-10] MEDS ORDERED: MORPHINE SULFATE 4 MG/ML INJ IV PUSH PRN (17:15)
[2016-11-10] MEDS: ACETAMINOPHEN/HYDROcodone 325 MG/10 MG TAB PO SCH ×2 (18:19→21:00)
--- NOTE | 2016-11-10 20:04 | EKG ---
Date Performed: 11/10/2016 Time Performed: 01:15:32 PTAGE: 80 years EKG: Supraventricular tachycardia. Right axis deviation Possible anteroseptal infarct - age unde termined Inferior/lateral ST-T changes suggest myocardial injury/ischemia Low QRS voltages in limb le ads Abnormal ECG PREVIOUS TRACING : 11/09/2016 20.01 DOCTOR: Hector Olvera Interpretating Date/Time 11/10/2016 20:02:32
--- NOTE | 2016-11-10 20:09 | EKG ---
Date Performed: 11/09/2016 Time Performed: 20:01:15 PTAGE: 80 years EKG: Sinus rhythm MARKED RIGHT AXIS DEVIATION NONSPECIFIC ST & T-WAVE ABNORMALITY ABNORMAL ECG NO PREVIOUS TRACING DOCTOR: Hector Olvera Interpretating Date/Time 11/10/2016 20:05:36
[2016-11-10] MEDS: TAMSULOSIN HCL 0.4 MG CAP PO SCH (21:26)
[2016-11-11] VITALS (15 sets, daily range): BP systolic 114–133; BP diastolic 58–72; PULSE 86–116; RESP 17–26; TEMP 98.3–102; O2SAT 96–100
[2016-11-11] MEDS: ACETAMINOPHEN/HYDROcodone 325 MG/10 MG TAB PO SCH ×6 (01:00→20:51)
[2016-11-11] MEDS: LEVOFLOXACIN 750 MG PREMIX INJ 150 ML IV SCH (01:46)
[2016-11-11 05:38] LABS: AUTOMATED NEUTROPHIL # 8.8 TH/MM3 (1.8-7.7); BASOPHIL % 0.1 % (0.0-2.0); EOSINOPHIL % 0.1 % (0.0-4.0); HEMATOCRIT 29.8 % (39.0-51.0); LYMPH % 64.6 % (9.0-44.0); LYMPHOCYTE # 20.7 TH/MM3 (1.0-4.8); MEAN CELL VOLUME 91.4 FL (80.0-100.0); MEAN CORPUSCULAR HEMOGLOBIN 28.8 PG (27.0-34.0); MEAN CORPUSCULAR HGB CONC 31.6 % (32.0-36.0); MONO % 7.6 % (0.0-8.0); NEUT % 27.6 % (16.0-70.0); PLATELET COUNT 193 TH/MM3 (150-450); RED BLOOD COUNT 3.26 MIL/MM3 (4.50-5.90); RED CELL DISTRIBUTION WIDTH 18.8 % (11.6-17.2)
[2016-11-11 05:46] LABS: HEMO FLAGS AUTO DIFF
[2016-11-11] MEDS: INSULIN NovoLIN REGULAR SUPPLEMENTAL SCALE SQ SCH ×4 (06:35→20:52)
--- NOTE | 2016-11-11 07:44 | RADRPT ---
EXAM DATE/TIME: 11/11/2016 07:11 [facility] COMPARISON: CHEST SINGLE AP, November 09, 2016, 20:22. INDICATIONS : Short of breath. MEDICAL HISTORY : Cardiovascular disease. Hypertension SURGICAL HISTORY : None. ENCOUNTER: Initial ACUITY: 2 days PAIN SCORE: 0/10 LOCATION: Bilateral chest FINDINGS: 2 AP portable erect views of the chest were obtained and demonstrate streaky perihilar opacities exte nding upper and lower lobes with no focal consolidation or effusion. The heart size is within normal limits. The bony thorax remains intact. CONCLUSION: Mild streaky opacity remains in the perihilar regions without significant change. Cj Isidro MD on November 11, 2016 at 7:42 Board Certified Radiologist. This report was verified electronically.
[2016-11-11] MEDS ORDERED: RESP: ALBUTEROL 2.5 MG/IPRATROPIUM 0.5 MG NEB (PRN) NEB ×2 (07:45→13:30)
[2016-11-11 08:00] LABS: BANDS 2 % (0-6); POLYS (SEG NEUTROPHILS) 33 % (16-70); WBC DIFF SAMPLE 100
[2016-11-11 08:01] LABS: MYELOCYTES 1 % (0-0); NEUTROPHIL # MANUAL DIFF 11.5 TH/MM3 (1.8-7.7); OVALOCYTES 1+ (NORMAL)
[2016-11-11 08:02] LABS: KERATOCYTES OCC (NORMAL); SCAN/DIFF FINAL DIFF MANUAL
[2016-11-11] MEDS: RESP: ALBUTEROL 2.5 MG/IPRATROPIUM 0.5 MG NEB (PRN) NEB ×2 (08:19→20:13)
[2016-11-11] MEDS: FINASTERIDE 5 MG TAB PO SCH (09:00)
[2016-11-11] MEDS: PANTOPRAZOLE SOD 40 MG DELAYED RELEASE TAB PO SCH (09:00)
[2016-11-11] MEDS: GLIMEPIRIDE 1 MG TAB PO SCH (09:00)
[2016-11-11] MEDS: BISOPROLOL FUMARATE 5 MG TAB PO SCH (09:00)
[2016-11-11] MEDS: TOLTERODINE TARTRATE 2 MG CAP LA PO SCH (09:00)
[2016-11-11] MEDS: DOCUSATE SODIUM 100 MG CAP PO SCH ×2 (09:00→20:51)
[2016-11-11] MEDS: SODIUM CHLORIDE 0.9% FLUSH 10 ML FLUSH IV FLUSH SCH ×2 (09:00→20:51)
--- NOTE | 2016-11-11 09:55 | HHI.NSPN ---
(Brennon White) History Chief Complaint: Unable to obtain due to patient's mental status. (Brennon White) Interval History 11/09: 80-year-old male who according to his family was going up a step into the house with his cane when he fell backwards, striking the back of his head. He was reportedly unconscious for 10-15 minutes. He then had some shaking in the extremities as he was waking up. He has been somewhat sleepy and a little confused since he woke up at the patient's family states that he is conversing reasonably well with them. He normally is fairly independent, ambulating with a cane and is usually mentally alert with only mild memory loss. Positive emesis reported. Patient has no complaint of headache or neck pain. No complaint of low back or joint pain. 11/10: nursing reports agitated overnight, currently sleeping. f/u CT Head completed, moves all four extremities. son translated - oriented to name and place only. 11/11: Notified by PARVIN Stoner, that Nursing had notified her that the patient's mental status was worse this morning and that she had ordered a stat CT brain. When seen this morning the patient is obtunded and not answering to verbal stimuli. Nursing reports that CT had called and was sending someone up to transport the patient to the scanner. She stated that the patient did receive morphine and hydrocodone during the night for pain because he was agitated. (Brennon White) System Review Comments Unable to obtain due to patient's mental status. (Brennon White) Exam Results Vital Signs Date Time Temp Pulse Resp B/P (MAP) Pulse Ox O2 Delivery O2 Flow Rate FiO2 11/11/16 08:19 100 Nasal Cannula 2.00 11/11/16 06:00 106 11/11/16 04:00 98.7 21 122/58 (79) Intake and Output 11/11/16 11/11/16 11/12/16 08:00 16:00 00:00 Intake Total 978 ml Output Total 350 ml Balance 628 ml (Brennon White) Physical Examination GENERAL: Patient is obtunded and not responding to verbal stimuli. No evident distress. SKIN: Warm, dry & intact w/o any evident rashes, ulcerations or lesions. HEENT: No evident otorrhea or rhinorrhea. Pupils deviated to left, pupils appear equal but sluggish to react. NECK: No JVD, trachea midline. CARDIOVASCULAR: S1S2 w/regular but rapid rate, no M/G/R, radial & pedal pulses 2 + bilaterally, cap refill < 2 sec, no pedal edema. Monitor is sinus tachycardia w/o any evident ectopy. RESPIRATORY: Decreased breath sounds bilaterally w/slight expiratory wheeze noted on right, equal excursion, nonlaboured, on NC. GASTROINTESTINAL: Abdomen soft, rounded, bowel sounds not appreciated. MUSCULOSKELETAL: No evident deformity or clubbing. NEUROLOGICAL: Patient obtunded, only arouses to noxious stimuli to right hand with purposeful movement, questionable trace eye opening, moans. No response to noxious stimuli to the left hand or either foot. GCS 8-9 (E1-2 V2 M5). PERRL sluggish, left-side deviation. (Brennon White) Lab, Micro, Other Results Recent Impressions Chest X-Ray 11/11/16 0000 Signed Impressions: Service Date/Time: Friday, November 11, 2016 07:11 - CONCLUSION: Mild streaky opacity remains in the perihilar regions without significant change. Cj Isidro MD Head CT 11/10/16 0600 Signed Impressions: Service Date/Time: Thursday, November 10, 2016 04:50 - CONCLUSION: Evolving and generally increased right greater than left subdural, parenchymal and subarachnoid blood. Please see above. Still no midline shift. Lonnie Carroll MD Head CT 11/09/161950 Signed Impressions: Service Date/Time: Wednesday, November 09, 2016 20:14 - CONCLUSION: 1. Small to moderate size subdural hematoma along the right temporal and parietal lobes. 2. Multiple areas of high density intraparenchymal versus subarachnoid hemorrhage. Cj Isidro MD Chest X-Ray 11/09/161950 Signed Impressions: Service Date/Time: Wednesday, November 09, 2016 20:22 - CONCLUSION: Streaky interstitial opacities in both lungs. The chronicity of the findings are not known without prior studies for comparison. This may represent scarring and/or fibrosis. Pulmonary edema is less likely. Cj Isidro MD Cervical Spine CT 11/09/161950 Signed Impressions: Service Date/Time: Wednesday, November 09, 2016 20:14 - CONCLUSION: Negative trauma CT. Cj Isidro MD 11/09/16 11/09/16 11/10/16 11/10/16 11/11/16 11/11/16 06:00 18:00 06:00 18:00 06:00 18:00 Intake Total 1068 ml 1798 ml 978 ml Output Total 1500 ml 2150 ml 350 ml Balance -432 ml -352 ml 628 ml Intake Oral 240 ml IV Total 460 ml 1558 ml 978 ml Platelets 578 ml Blood Product IV Normal Saline Flush 30 ml Output Urine Total 1500 ml 2150 ml 350 ml Laboratory Tests Test 11/09/16 20:05 11/09/16 22:44 11/10/16 02:50 11/10/16 06:00 White Blood Count 28.9 TH/MM3 39.2 TH/MM3 Red Blood Count 3.69 MIL/MM3 3.53 MIL/MM3 Hemoglobin 10.4 GM/DL 10.4 GM/DL Hematocrit 33.0 % 31.8 % Mean Corpuscular Volume 89.3 FL 89.9 FL Mean Corpuscular Hemoglobin 28.2 PG 29.4 PG Mean Corpuscular Hemoglobin Concent 31.6 % 32.7 % Red Cell Distribution Width 18.8 % 18.5 % Platelet Count 243 TH/MM3 239 TH/MM3 Mean Platelet Volume 7.0 FL 7.6 FL Neutrophils (%) (Auto) 9.3 % 38.1 % Lymphocytes (%) (Auto) 85.6 % 57.9 % Monocytes (%) (Auto) 4.5 % 3.7 % Eosinophils (%) (Auto) 0.5 % 0.0 % Basophils (%) (Auto) 0.1 % 0.3 % Neutrophils # (Auto) 2.7 TH/MM3 14.9 TH/MM3 Lymphocytes # (Auto) 24.8 TH/MM3 22.7 TH/MM3 Monocytes # (Auto) 1.3 TH/MM3 1.4 TH/MM3 Eosinophils # (Auto) 0.1 TH/MM3 0.0 TH/MM3 Basophils # (Auto) 0.0 TH/MM3 0.1 TH/MM3 CBC Comment AUTO DIFF AUTO DIFF Differential Total Cells Counted 100 100 Neutrophils % (Manual) 12 % 23 % Lymphocytes % 85 % 62 % Monocytes % 3 % 5 % Neutrophils # (Manual) 3.5 TH/MM3 12.2 TH/MM3 Differential Comment FINAL DIFF MANUAL FINAL DIFF MANUAL Platelet Estimate NORMAL NORMAL Platelet Morphology Comment NORMAL NORMAL Ovalocytes 1+ Keratocytes 1+ Prothrombin Time 12.3 SEC 12.2 SEC Prothromb Time International Ratio 1.1 RATIO 1.1 RATIO Activated Partial Thromboplast Time 28.6 SEC 29.1 SEC Blood Urea Nitrogen 14 MG/DL 16 MG/DL Creatinine 0.62 MG/DL 0.87 MG/DL Random Glucose 108 MG/DL 164 MG/DL Total Protein 5.3 GM/DL Albumin 2.5 GM/DL Calcium Level 6.8 MG/DL 8.4 MG/DL Magnesium Level 1.4 MG/DL Alkaline Phosphatase 67 U/L Aspartate Amino Transf (AST/SGOT) 20 U/L Alanine Aminotransferase (ALT/SGPT) 17 U/L Total Bilirubin 0.7 MG/DL Sodium Level 141 MEQ/L 134 MEQ/L Potassium Level 3.3 MEQ/L 4.0 MEQ/L Chloride Level 111 MEQ/L 102 MEQ/L Carbon Dioxide Level 24.1 MEQ/L 23.3 MEQ/L Anion Gap 6 MEQ/L 9 MEQ/L Estimat Glomerular Filtration Rate 124 ML/MIN 84 ML/MIN Hemoglobin A1c 6.0 % Protein Corrected Calcium 7.7 MG/DL Urine Color YELLOW Urine Turbidity CLEAR Urine pH 5.5 Urine Specific [place] 1.014 Urine Protein NEG mg/dL Urine Glucose (UA) NEG mg/dL Urine Ketones 10 mg/dL Urine Occult Blood NEG Urine Nitrite NEG Urine Bilirubin NEG Urine Urobilinogen LESS THAN 2.0 MG/DL Urine Leukocyte Esterase NEG Urine RBC 1 /hpf Urine WBC 1 /hpf Urine Squamous Epithelial Cells <1 /hpf Urine Hyaline Casts 3 /lpf Microscopic Urinalysis Comment CULT NOT INDICATED Nasal Screen MRSA (PCR) MRSA NOT DETECTED Band Neutrophils % 8 % Eosinophils % 2 % Smudge Cells PRESENT Red Cell Morphology Comment NORMAL Test 11/11/16 04:58 White Blood Count 32.0 TH/MM3 Red Blood Count 3.26 MIL/MM3 Hemoglobin 9.4 GM/DL Hematocrit 29.8 % Mean Corpuscular Volume 91.4 FL Mean Corpuscular Hemoglobin 28.8 PG Mean Corpuscular Hemoglobin Concent 31.6 % Red Cell Distribution Width 18.8 % Platelet Count 193 TH/MM3 Mean Platelet Volume 7.3 FL Neutrophils (%) (Auto) 27.6 % Lymphocytes (%) (Auto) 64.6 % Monocytes (%) (Auto) 7.6 % Eosinophils (%) (Auto) 0.1 % Basophils (%) (Auto) 0.1 % Neutrophils # (Auto) 8.8 TH/MM3 Lymphocytes # (Auto) 20.7 TH/MM3 Monocytes # (Auto) 2.4 TH/MM3 Eosinophils # (Auto) 0.0 TH/MM3 Basophils # (Auto) 0.0 TH/MM3 CBC Comment AUTO DIFF Differential Total Cells Counted 100 Neutrophils % (Manual) 33 % Band Neutrophils % 2 % Lymphocytes % 60 % Monocytes % 4 % Neutrophils # (Manual) 11.5 TH/MM3 Myelocytes 1 % Differential Comment FINAL DIFF MANUAL Ovalocytes 1+ Keratocytes OCC Vital Signs Date Time Temp Pulse Resp B/P (MAP) Pulse Ox O2 Delivery O2 Flow Rate FiO2 11/11/16 08:19 100 Nasal Cannula 2.00 11/11/16 06:00 106 11/11/16 04:00 104 11/11/16 04:00 98.7 104 21 122/58 (79) 99 11/11/16 02:00 94 11/11/16 00:00 99.9 89 17 114/61 (78) 99 11/11/16 00:00 86 11/10/16 22:00 88 11/10/16 20:00 99.4 101 20 115/57 (76) 100 11/10/16 20:00 101 11/10/16 19:19 12 11/10/16 19:04 100 Nasal Cannula 3.00 11/10/16 19:00 100 Nasal Cannula 3.00 11/10/16 18:00 90 11/10/16 16:00 99.0 98 14 113/56 (75) 95 11/10/16 16:00 98 11/10/16 14:00 88 11/10/16 12:00 109 11/10/16 12:00 98.3 98 16 108/52 (70) 99 11/10/16 11:30 Nasal Cannula 3.00 11/10/16 10:00 109 11/10/16 08:00 98.6 109 22 111/59 (76) 98 11/10/16 08:00 109 11/10/16 07:00 98 Nasal Cannula 3.00 11/10/16 06:00 100 11/10/16 05:20 105 118/57 11/10/16 04:00 105 11/10/16 04:00 99.5 105 17 118/57 (77) 100 11/10/16 02:00 110 11/10/16 01:15 101.5 132 18 125/76 (92) 91 11/10/16 01:15 132 11/10/16 00:55 11/10/16 00:15 98.1 105 18 127/67 98 11/10/16 00:10 110 18 119/55 (76) 98 Nasal Cannula 4.00 11/09/16 23:42 98.3 109 18 137/62 97 11/09/16 23:07 98.1 115 18 137/62 97 11/09/16 22:59 110 18 137/62 (87) 96 Nasal Cannula 5.00 11/09/16 22:37 105 18 155/71 (99) 98 Nasal Cannula 5.00 11/09/16 22:26 99 20 165/77 (106) 98 Nasal Cannula 4.00 11/09/16 22:25 99 171/79 11/09/16 21:20 87 18 161/72 (101) 97 Nasal Cannula 4.00 11/09/16 20:56 93 20 164/69 (100) 100 Nasal Cannula 4.00 11/09/16 19:53 88 Room Air 11/09/16 19:46 98.6 63 20 157/74 (101) 96 (Brennon White) Medical Decision Making Impression and Plan Impression: 1. Traumatic brain injury 2. Hypertension 3. Diabetes Improved leukocytosis & neutrophilia. Slight decrease in haemoglobin. Sodium 134 yesterday morning. Patient with worsening neurological examination this morning. Plan: Stat CT brain already ordered and waiting to be done. Frequent neuro checks. Critical care management per Manager Strategy. Continue present diabetic medications with insulin sliding scale. Continue nicardipine IV drip initially for blood pressure control with maintenance of the patient's previous antihypertensive medications and additional when necessary medications. Non-chemical DVT prophylaxis. Ulcer prophylaxis. Physical therapy evaluation with cautious mobilization out of bed. (Brennon White) Attending Statement The exam, history, and the medical decision-making described in the above note were completed with the assistance of the mid-level provider. I reviewed and agree with the findings presented. I attest that I had a [id number] encounter with the patient on the same day, and personally performed and documented my assessment and findings in the medical record. Some decline in neurologic function today Continuing nicardipine blood pressure control Recheck CT scan head (Tony Godfrey MD) Brennon White Nov 11, 2016 09:55 Tony Godfrey MD Dec 15, 2016 05:32
--- NOTE | 2016-11-11 10:22 | RADRPT ---
EXAM DATE/TIME: 11/11/2016 09:44 [place] COMPARISON: CT BRAIN W/O CONTRAST, November 10, 2016, 4:50. INDICATIONS : Increased lethargy and left sided gaze this morning. RADIATION DOSE: 34.42 CTDIvol (mGy) MEDICAL HISTORY : Cardiovascular disease. Diabetes mellitus type 2. SURGICAL HISTORY : None. ENCOUNTER: Initial ACUITY: 1 day PAIN SCALE: 0/10 LOCATION: cranial TECHNIQUE: Multiple contiguous axial images were obtained of the head. Using automated exposure control and adj ustment of the mA and/or kV according to patient size, radiation dose was kept as low as reasonably a chievable to obtain optimal diagnostic quality images. DICOM format image data is available electro nically for review and comparison. FINDINGS: There are stable bifrontal contusions as well as subdural hematoma on the right and tentorial subdura l hematoma on the right as well. Subarachnoid hemorrhage is also present. Posterior fossa structures are unremarkable. The ventricles are unchanged in size. CONCLUSION: 1. Stable multiple intercranial contusions Blaine Shore MD on November 11, 2016 at 10:05 Board Certified Radiologist. This report was verified electronically.
[2016-11-11] MEDS ORDERED: levETIRAcetam 1000 MG INJ 100 ML IV ONE (12:30)
[2016-11-11] MEDS: NS + KCL 20 MEQ INJ 1,000 ML IV SCH (12:34)
--- NOTE | 2016-11-11 13:03 | PD.CONS ---
HPI Service Critical Care Medicine Consult Requested By [facility] Reason for Consult Deteriorating neurological status. Primary Care Physician No Primary Care Physician History of Present Illness 80 y/o man fell backwards two days ago and hit the back of his head quite hard. LOC and vomiting followed by general lethargy, but conversant and responsive. I was asked to see him by nurse today for lack of responsiveness about 1100 hours. Unresponsive now and morning head CT demonstrates increased edema surrounding intraparenchymal hemorrhages, unchanged subdural collections. Stat EEG revealed generalized seizure activity. Discussed with Neurosurgery Service and AED started. Patient protects airway well, nonconvulsive. Review of Systems ROS Unresponsive. with no additional comments (does not speak Japanese) Past Family Social History Allergies: Coded Allergies: Penicillins (Verified Allergy, Unknown, 11/09/16) Past Medical History Past Medical History Cardiovascular Problems: Yes Social History Alcohol Use: No Tobacco Use: No Allergies-Medications Allergies-Medications (Allergen,Severity, Reaction): Coded Allergies: Penicillins (Verified Allergy, Unknown, 11/09/16) Reported Meds & Prescriptions Reported Meds & Active Scripts Active Reported Vesicare (Solifenacin) 5 Mg Tab 5 Mg PO DAILY Tamsulosin (Tamsulosin HCl) 0.4 Mg Cap 0.4 Mg PO HS [stugeron] 25 Mg PO DAILY [urilax] 10 Mg PO DAILY Amaryl (Glimepiride) 1 Mg Tab 1 Mg PO DAILY Take with breakfast or first main meal Proscar (Finasteride) 5 Mg Tab 5 Mg PO DAILY Do not crush. Bisoprolol (Bisoprolol Fumarate) 5 Mg Tab 5 Mg PO DAILY Physical Exam Vital Signs Vital Signs Date Time Temp Pulse Resp B/P (MAP) Pulse Ox O2 Delivery O2 Flow Rate FiO2 11/11/16 08:19 100 Nasal Cannula 2.00 11/11/16 07:00 99 Nasal Cannula 3.00 11/11/16 06:00 106 11/11/16 04:00 104 11/11/16 04:00 98.7 104 21 122/58 (79) 99 11/11/16 02:00 94 11/11/16 00:00 99.9 89 17 114/61 (78) 99 11/11/16 00:00 86 11/10/16 22:00 88 11/10/16 20:00 99.4 101 20 115/57 (76) 100 11/10/16 20:00 101 11/10/16 19:19 12 11/10/16 19:04 100 Nasal Cannula 3.00 11/10/16 19:00 100 Nasal Cannula 3.00 11/10/16 18:00 90 11/10/16 16:00 99.0 98 14 113/56 (75) 95 11/10/16 16:00 98 11/10/16 14:00 88 Physical Exam Gen: Unresponsive. Neck: Rigid, airway widely patent. Lungs: Light wheezes, no crackles. Good air movement. Heart: NL S1S2, freq PMB. RRR, No JVD. Abdomen: Soft, nondistended, no guarding, no distention Extremities: Warm, well perfused. Trace edema feet. Neuro: Unresponsive. DTRs 1+ patella. No clonus. Pupils 3 mm, disconjugate gaze with slow horizontal movement. Laboratory Laboratory Tests Test 11/11/16 04:58 White Blood Count 32.0 Red Blood Count 3.26 Hemoglobin 9.4 Hematocrit 29.8 Mean Corpuscular Volume 91.4 Mean Corpuscular Hemoglobin 28.8 Mean Corpuscular Hemoglobin Concent 31.6 Red Cell Distribution Width 18.8 Platelet Count 193 Mean Platelet Volume 7.3 Neutrophils (%) (Auto) 27.6 Lymphocytes (%) (Auto) 64.6 Monocytes (%) (Auto) 7.6 Eosinophils (%) (Auto) 0.1 Basophils (%) (Auto) 0.1 Neutrophils # (Auto) 8.8 Lymphocytes # (Auto) 20.7 Monocytes # (Auto) 2.4 Eosinophils # (Auto) 0.0 Basophils # (Auto) 0.0 CBC Comment AUTO DIFF Differential Total Cells Counted 100 Neutrophils % (Manual) 33 Band Neutrophils % 2 Lymphocytes % 60 Monocytes % 4 Neutrophils # (Manual) 11.5 Myelocytes 1 Differential Comment FINAL DIFF MANUAL Ovalocytes 1+ Keratocytes OCC Date/Time Source Procedure Growth Status 11/10/16 19:15 Blood Peripheral Aerobic Blood Culture - Preliminary NO GROWTH IN 1 DAY Resulted 11/10/16 19:15 Blood Peripheral Anaerobic Blood Culture - Final QNS - SEE AEROBE REPORT Resulted Result Diagram: 11/11/16 0458 11/10/16 0600 Assessment and Plan Assessment and Plan Assessment: 1. Closed head injury 2. LOC. 3. Bilateral large intra-parenchymal hemorrhages 4. Traumatic SDH. 5. Nonconvulsive seizures. 6. DM, type 2. Oral agent controlled. Plan: 1. Keppra. 2. 2% saline bolus and maintenance. 3. Bronchodilator. 4. BNP, mag, phos 5. Protonix iv. 6. SCDs 7. SSI for euglycemia. 8. Head CT Dev Colin MD Nov 11, 2016 13:03
[2016-11-11] MEDS ORDERED: FUROSEMIDE 20 MG/2 ML VIAL IV PUSH ONE (13:30)
[2016-11-11] MEDS ORDERED: ACETAMINOPHEN 1000 MG/100 ML VIAL IV ONE (14:30)
[2016-11-11] MEDS ORDERED: SODIUM CHLORIDE 23.4% INJ 188 MEQ in SODIUM CHLOR 0.9% 1000 ML INJ 1,000 ML IV SCH (15:00)
[2016-11-11] MEDS: SODIUM CHLORIDE 23.4% INJ 188 MEQ in SODIUM CHLOR 0.9% 1000 ML INJ 1,000 ML IV SCH ×2 (15:43→16:00)
[2016-11-11 16:07] LABS: MAGNESIUM 1.9 MG/DL (1.5-2.5)
[2016-11-11] MEDS: levETIRAcetam 1000 MG INJ 100 ML IV SCH (20:39)
[2016-11-11] MEDS: TAMSULOSIN HCL 0.4 MG CAP PO SCH (20:51)
[2016-11-11] MEDS ORDERED: FOSPHENYTOIN INJ 1,000 MGPE in SODIUM CHLORIDE 0.9% INJ 50 ML IV ONE (21:30)
--- NOTE | 2016-11-11 22:53 | MG ---
cc: MORRO CANNON MD Lab No: [id number] Date: 11/11/16 Age: 80 Sex: M Race: DATE OF 1935 An 80-year-old with history of fall, hit his head, agitation, mental status changes. Stat EEG requested. 2-4 Hz activity, 20-60 microvolts, myogenic artifact noted followed by some rhythmic activity in the right frontal central region occurring at about EPOC 19, phase reversal around C4, lasts about 10-20 seconds, recurring at around EPOC 48 followed by generalized slowing, episodes of right frontal central sharp activity. Limited driving with photic stimulation. Single lead EKG showing sinus rhythm with some possible premature contraction and possible irregularity. INTERPRETATION Mild to moderate encephalopathy with asymmetric right frontal central slowing and brief bursts of sharp activity. Clinical correlation. Morro Cannon MD MG/EO /3:26 PM /10:31 PM MTDD
[2016-11-12] VITALS (18 sets, daily range): BP systolic 103–131; BP diastolic 55–62; PULSE 88–111; RESP 15–24; TEMP 98.4–100.2; O2SAT 96–100
[2016-11-12] MEDS ORDERED: LORazepam 2 MG/ML VIAL IV PRN (00:45)
[2016-11-12] MEDS: ACETAMINOPHEN/HYDROcodone 325 MG/10 MG TAB PO SCH ×2 (01:00→05:00)
[2016-11-12] MEDS: LEVOFLOXACIN 750 MG PREMIX INJ 150 ML IV SCH (01:01)
[2016-11-12] MEDS: RESP: ALBUTEROL 2.5 MG/IPRATROPIUM 0.5 MG NEB (PRN) NEB (02:10)
[2016-11-12] MEDS: FOSPHENYTOIN SODIUM 100 MG PE/2 ML VIAL IV SCH ×3 (05:41→17:50)
[2016-11-12] MEDS: INSULIN NovoLIN REGULAR SUPPLEMENTAL SCALE SQ SCH ×3 (05:42→17:51)
[2016-11-12] MEDS ORDERED: ETOMIDATE 40 MG/20 ML VIAL IV PUSH ONE (07:00)
[2016-11-12] MEDS ORDERED: ROCURONIUM INJ 100 MG/10 ML VIAL IV ONE (07:00)
[2016-11-12 07:05] LABS: BLOOD GAS BASE EXCESS 1.5 mmol/L (-2-2); BLOOD GAS HCO3 25 mmol/L (22-26); BLOOD GAS METHEMOGLOBIN 0.8 % (0-2); BLOOD GAS O2 HGB SATURATION 95 % (90-100); BLOOD GAS OXYGEN CONTENT 11.4 Vol % (12.0-20.0); BLOOD GAS PCO2 32 mmHg (38-42); BLOOD GAS PO2 85 mmHg (61-120); BLOOD GAS TOTAL HGB 8.4 G/DL (12.0-16.0); CRITICAL VALUE NO; DRAW SITE LT RADIAL; LITER FLOW 2 L/M; NUMBER OF ARTERIAL PUNCTURES 1; OXYGEN DEVICE NASAL CANNULA; TEMP CORR TO 98.6; ULNAR PULSE PRESENT
[2016-11-12 07:06] LABS: STAT NO
[2016-11-12] MEDS ORDERED: LIDOCAINE HCL 2% 100 MG/5 ML SYRINGE IV PUSH ONE (07:15)
--- NOTE | 2016-11-12 07:22 | HHI.CCPN ---
Subjective Remarks/Hospital Course 80 y/o man fell backwards two days ago and hit the back of his head quite hard. LOC and vomiting followed by general lethargy, but conversant and responsive. I was asked to see him by nurse today for lack of responsiveness about 1100 hours. Unresponsive now and morning head CT demonstrates increased edema surrounding intraparenchymal hemorrhages, unchanged subdural collections. Stat EEG revealed generalized seizure activity. Discussed with Neurosurgery Service and AED started. Patient protects airway well, nonconvulsive. Subjective 11/12: Patient unresponsive and looking towards left. On fosphenytoin 100 mg IV every 8 hours and levetiracetam 1000 mg IV twice a day. Will need intubation along with central line placed for 3% hypertonic saline Objective Vital Signs Date Time Temp Pulse Resp B/P (MAP) Pulse Ox O2 Delivery O2 Flow Rate FiO2 11/12/16 06:00 108 11/12/16 04:00 98.7 21 103/59 (74) 96 11/11/16 20:13 Nasal Cannula 3.00 Intake and Output 11/12/16 11/12/16 11/13/16 08:00 16:00 00:00 Intake Total 690 ml Output Total 650 ml Balance 40 ml Result Diagram: 11/11/16 0458 11/12/16 0428 Other Results ABG Test 11/12/16 06:44 Arterial Blood Carboxyhemoglobin 2.0 % Arterial Blood Methemoglobin 0.8 % Arterial Blood Oxygen Content 11.4 Vol % L Arterial Blood Partial Pressure CO2 32 mmHg L Arterial Blood Partial Pressure O2 85 mmHg Arterial Blood pH 7.50 H Blood Gas Base Excess 1.5 mmol/L Blood Gas HCO3 25 mmol/L Blood Gas Hemoglobin 8.4 G/DL L Blood Gas Liter Flow 2 L/M Blood Gas Oxygen Saturation 95 % Oxygen Delivery Device NASAL CANNULA Imaging Last Impressions Head CT 11/11/16 0000 Signed Impressions: Service Date/Time: Friday, November 11, 2016 09:44 - CONCLUSION: 1. Stable multiple intercranial contusions Blaine Shore MD Chest X-Ray 11/11/16 0000 Signed Impressions: Service Date/Time: Friday, November 11, 2016 07:11 - CONCLUSION: Mild streaky opacity remains in the perihilar regions without significant change. Cj Isidro MD Cervical Spine CT 11/09/161950 Signed Impressions: Service Date/Time: Wednesday, November 09, 2016 20:14 - CONCLUSION: Negative trauma CT. Cj Isidro MD Objective Remarks Gen: 80-year-old male, currently resting in bed unresponsive. Neck: Rigid, airway widely patent. No thyromegaly. Lungs: Light end expiratory wheezes, no crackles. Good air movement. Heart: RRR. S1S2, no S4. Without murmur, clicks or rubs Abdomen: Soft, nondistended, hypoactive bowel sounds are appreciated. No guarding, no distention Extremities: Warm, well perfused. Trace edema feet. Neuro: Unresponsive. DTRs 1+ patella. No clonus. Pupils 3 mm, disconjugate gaze with slow horizontal movement. A/P Assessment and Plan Neuro/Psych: Closed head injury - Traumatic Bilateral large intra-parenchymal hemorrhages/right temporal/parietal subdural hematoma and bifrontal contusions Nonconvulsive seizures CT brain 11/11 revealed bi frontal contusions, right temporal/parietal subdural hematoma around 8 mm in subarachnoid hemorrhage EEG 11/11 revealed mild to moderate encephalopathy. Right frontal/central generalized slowing with intermittent sharps waves Repeat EEG today Currently on fosphenytoin 100 mg IV every 8 hours. A.m. level pending. Along with levetiracetam 1000 mg IV twice a day. Currently on hydrocodone/acetaminophen 10/325 one to 2 tablets every 4 hours when necessary pain Currently on 2% saline at 40 cc an hour. We'll place on 3% saline at 20 cc an hour. Every 6 hours sodiums. Every 6 hours serum OSM. Goal maintain sodium currently 145 - 155 . Goal of serum osm less than 310 Neurosurgery/Dr. Godfrey follows CV: Atrial fibrillation Hypertension Currently normal saline at 84 cc an hour Currently on bisoprolol 5 mill grams by mouth daily/home medication with holding parameters for heart rate and blood pressure Not requiring vasopressors and/or antihypertensives. Goal keep systolic blood pressure less than 150 Resp: Acute respiratory insufficiency secondary to altered mental status Will likely require intubation for airway protection prvc 16/around 550/1/5/50 Ventilator bundle Albuterol/ipratropium aerosols every 6 hours with albuterol aerosols every 2 hours when necessary breakthrough dyspnea Spontaneous breathing trials when clinically indicated Follow post intubation x-ray and ABG GI: Patient is currently nothing by mouth. Start vital 1.5 trickle feeds today Lansoprazole 30 mg by tube for GI prophylaxis Docusate sodium 100 mg twice a day/senna 8.6 mg twice a day for bowel regimen : BPH Maintain Noriega Currently on tamsulosin 0.4 mg by mouth daily and tolterodine 2 mg by mouth daily - hospital substitution for finasteride 5 mg by mouth daily Endo: Diabetes mellitus - hemoglobin A1c 6.0 Currently on Novulin R sliding scale insulin every 6 hours to maintain euglycemia Holding glimepiride 5 mg by mouth daily. Renal: Creatinine currently within normal limits Monitor urine output Accurate I's and O's A.m. laboratories pending Heme: Leukocytosis Normocytic anemia Coags within normal limits. A.m. laboratories currently pending. ID: Currently on levofloxacin 500 mg IV daily We'll switch to vancomycin, aztreonam and metronidazole day #1 Pertinent cultures 11/11 - blood cultures 2 - no growth FEN: Hypophosphatemia Replace electrolytes as clinically indicated MSK: Physical therapy evaluate and treat Access - Utilize peripheral IV. Central line if indicated Prophylaxis - GI - lanosprazole DVT - SCD/pharmacological prophylaxis when okay with neurosurgery Critical care time 30 minutes Deshaun Arais MD Nov 12, 2016 07:22
[2016-11-12] MEDS ORDERED: SODIUM CHLORIDE 0.9% FLUSH 10 ML FLUSH IVF PRN (08:15)
--- NOTE | 2016-11-12 08:21 | PD.PROCEDR ---
Central Line Procedure REASON FOR PROCEDURE Central venous access PROCEDURE PERFORMED Central line placement: Right IJ CVL CONSENT Informed consent for procedure was obtained. The risks and benefits of the procedure were discussed to include but limited to bleeding, clot formation, infection, and even . ANESTHESIA Local injection of 1% Lidocaine DESCRIPTION OF THE PROCEDURE The patient was placed in supine, mild Trendelenburg position. The area was exposed and cleansed with ChloraPrep, times two. Large sterile drape was used to cover the patient, with the site exposed, under sterile conditions including cap, face mask, sterile gown, and sterile gloves. On single attempt, the introducer needle was inserted with negative pressure in syringe and venous flash was obtained. The guide wire was then advanced without any restriction and the needle was removed. The dilator was used without any complications. Using Seldinger technique the triple-lumen antibiotic coated catheter was advanced over the guide wire to a depth of 16 centimeters. The guide wire was removed. All ports were aspirated with dark venous blood return and flushed easily with sterile saline. All ports were capped. Antibiotic disc was placed around central line at puncture site. The central line was secured to the skin with two interrupted 2.0 silk sutures. The area was bandaged with sterile see- through central line bandage. RADIOLOGICAL DATA Ultrasound guidance was used to locate right internal jugular vein. Doppler/ color flow was used to confirm venous flow. COMPLICATIONS: No apparent complications ESTIMATED BLOOD LOSS: Less than 1 cc. Deshaun Arias MD Nov 12, 2016 08:21
--- NOTE | 2016-11-12 08:22 | PD.PROCEDR ---
Procedure Note Procedure DATE: 11/12/2016 PROCEDURE: Orotracheal intubation INDICATION: Respiratory failure/acute DETAILS OF PROCEDURE The patient was placed in optimal position and preoxygenated with 100% FiO2 via bag valve mask. At the start oxygen saturation was 100 %. The patient was administered 100 mg 2% lidocaine IV and 20 mg etomidate IV and 50 mg rocuronium IV. I entered the oropharynx with a size 4gvl GLIDESCOPE blade and obtained a grade 2 view of the airway. On single attempt a size 8.0 cuffed endotracheal tube was passed through the vocal cords. Correct tube location was confirmed with end tidal CO2 detector and by auscultating over bilateral lung magana. The endotracheal tube was secured with adhesive tape at a depth of 24 cm at the lips. The patient was connected to the ventilator. The patient tolerated the procedure well without any apparent complications. Oxygen saturations were maintained greater than 95% all times. STAT chest x-ray Pending at time of dictation. Deshaun Arias MD Nov 12, 2016 08:22
[2016-11-12] MEDS ORDERED: ONDANSETRON HCL 4 MG/2 ML VIAL IV PRN (08:30)
[2016-11-12] MEDS ORDERED: POTASSIUM PHOSPHATE MONOBASIC 500 MG TAB PO/TUBE PRN (08:30)
[2016-11-12] MEDS ORDERED: LACTULOSE SYRUP 20 GM/30 ML CUP PO PRN (08:30)
[2016-11-12] MEDS ORDERED: POTASSIUM CHLORIDE 25 MEQ EFFERVESCENT TAB PO PRN (08:30)
[2016-11-12] MEDS ORDERED: MAGNESIUM OXIDE 400 MG TAB PO PRN (08:30)
[2016-11-12] MEDS ORDERED: POTASSIUM CHLOR 20 MEQ PREMIX 100 ML IV PRN (08:30)
[2016-11-12] MEDS ORDERED: MAGNESIUM SULFATE INJ 2 GM in SODIUM CHLORIDE 0.9% INJ 96 ML IV PRN (08:30)
[2016-11-12] MEDS ORDERED: SODIUM CHLORIDE 0.9% FLUSH 10 ML FLUSH IV FLUSH PRN (08:30)
[2016-11-12] MEDS ORDERED: POTASSIUM PHOSPHATE INJ 30 MMOL in SODIUM CHLOR 0.9% 250 ML INJ 250 ML IV PRN (08:30)
[2016-11-12] MEDS ORDERED: MAGNESIUM SULFATE INJ 4 GM in SODIUM CHLORIDE 0.9% INJ 92 ML IV PRN (08:30)
[2016-11-12] MEDS ORDERED: BISACODYL 10 MG SUPP RECTAL PRN (08:30)
[2016-11-12] MEDS ORDERED: POTASSIUM CHLOR 40 MEQ PREMIX 100 ML IV-CENTRAL PRN (08:30)
[2016-11-12] MEDS ORDERED: Vancomycin Consult Pharmacy 1 EA OTHER SCH (08:30)
[2016-11-12] MEDS: SODIUM CHLORIDE 0.9% FLUSH 10 ML FLUSH IVF SCH (09:00)
[2016-11-12] MEDS ORDERED: 3% SALINE INJ 500 ML IV SCH (09:00)
[2016-11-12] MEDS: ARTIFICIAL TEARS OPTH SOLN 15 ML BTL EACH EYE SCH ×3 (09:00→17:05)
[2016-11-12] MEDS: FINASTERIDE 5 MG TAB PO SCH (09:00)
[2016-11-12] MEDS: JUVEN POWDER 1 PACK G-TUBE SCH ×2 (09:00→22:04)
--- NOTE | 2016-11-12 09:18 | RADRPT ---
EXAM DATE/TIME: 11/12/2016 08:15 [facility] COMPARISON: CHEST SINGLE AP, November 11, 2016, 7:11. INDICATIONS : Post central line placement. MEDICAL HISTORY : Cardiovascular disease. Diabetes mellitus type 2. SURGICAL HISTORY : None. ENCOUNTER: Subsequent ACUITY: 1 day PAIN SCORE: Non-responsive. LOCATION: Bilateral chest FINDINGS: Right internal jugular catheter tip projects over the origin of the superior vena cava. No evidence of pneumothorax. ET tube in good position. Gastric tube traverses the field of view. Patchy acinar opacities in the right midlung and left perihilar and left lower lung infiltrates are similar to kishore or exam. The heart is normal size. Mild curvature of the thoracic spine towards the right. CONCLUSION: Right IJ catheter tip at the origin the superior vena cava. No evidence of pneumothorax. Narayan Coulter MD on November 12, 2016 at 9:15 Board Certified Radiologist. This report was verified electronically.
[2016-11-12 09:24] LABS: BLOOD GAS BASE EXCESS 0.5 mmol/L (-2-2); BLOOD GAS CARBOXYHEMOGLOBIN 1.9 % (0-4); BLOOD GAS HCO3 24 mmol/L (22-26); BLOOD GAS METHEMOGLOBIN 0.7 % (0-2); BLOOD GAS O2 HGB SATURATION 97 % (90-100); BLOOD GAS OXYGEN CONTENT 11.7 Vol % (12.0-20.0); BLOOD GAS PCO2 32 mmHg (38-42); BLOOD GAS PO2 218 mmHg (61-120); BLOOD GAS TOTAL HGB 8.1 G/DL (12.0-16.0); CRITICAL VALUE NO; DRAW SITE RT RADIAL; FIO2 50 %; NUMBER OF ARTERIAL PUNCTURES 1; OXYGEN DEVICE VENTILATOR; STAT NO; TEMP CORR TO 98.6; ULNAR PULSE PRESENT; VENT SETTINGS PRVC/16/550/1.0/+5
[2016-11-12] MEDS: CHLORHEXIDINE 0.12% (ORAL KIT) 15 ML CUP MT SCH ×2 (09:29→22:00)
[2016-11-12] MEDS: SODIUM CHLOR 0.9% 1000 ML INJ 1,000 ML IV SCH (09:29)
[2016-11-12] MEDS: AZTREONAM INJ 2,000 MG in SODIUM CHLORIDE 0.9% INJ 100 ML IV SCH ×2 (09:29→16:59)
[2016-11-12] MEDS: levETIRAcetam 1000 MG INJ 100 ML IV SCH ×2 (09:30→22:05)
[2016-11-12] MEDS: SODIUM CHLORIDE 0.9% FLUSH 10 ML FLUSH IV FLUSH SCH ×2 (09:30→22:05)
[2016-11-12] MEDS: MIDAZOLAM 100 MG/100 ML INJ 100 ML IV PRN (09:30)
[2016-11-12] MEDS: 3% SALINE INJ 500 ML IV SCH (09:30)
[2016-11-12] MEDS: LANSOPRAZOLE SOLUTAB 30 MG TAB NG SCH (09:31)
[2016-11-12] MEDS: DOCUSATE SODIUM 100 MG/10 ML UDC PO SCH ×2 (09:31→22:04)
[2016-11-12] MEDS: BISOPROLOL FUMARATE 5 MG TAB PO SCH (09:31)
[2016-11-12] MEDS: TOLTERODINE TARTRATE 2 MG CAP LA PO SCH (09:31)
[2016-11-12] MEDS: SENNOSIDES SYRUP 8.8 MG/5 ML CUP NG SCH ×2 (09:31→22:04)
[2016-11-12] MEDS: RESP: ALBUTEROL 2.5 MG/IPRATROPIUM 0.5 MG NEB (SCH) INH ×3 (09:44→20:13)
[2016-11-12 09:46] LABS: AUTOMATED NEUTROPHIL # 4.3 TH/MM3 (1.8-7.7); HEMATOCRIT 22.9 % (39.0-51.0); LYMPH % 62.2 % (9.0-44.0); LYMPHOCYTE # 9.3 TH/MM3 (1.0-4.8); MEAN CELL VOLUME 88.6 FL (80.0-100.0); MEAN CORPUSCULAR HGB CONC 33.9 % (32.0-36.0); MONO % 8.8 % (0.0-8.0); PLATELET COUNT 168 TH/MM3 (150-450); RED BLOOD COUNT 2.59 MIL/MM3 (4.50-5.90); RED CELL DISTRIBUTION WIDTH 18.2 % (11.6-17.2); WHITE BLOOD COUNT 14.9 TH/MM3 (4.0-11.0)
[2016-11-12 09:50] LABS: HEMO FLAGS AUTO DIFF
[2016-11-12] MEDS ORDERED: VANCOMYCIN INJ 2,500 MG in SODIUM CHLORID 0.9% 500 ML INJ 500 ML IV ONE (10:00)
--- NOTE | 2016-11-12 10:04 | HHI.NSPN ---
History Chief Complaint: Unable to obtain due to patient's mental status. Interval History The patient has been intubated this morning due to persistent decreased mental status. Possibly a few more episodes of seizure activity reported last evening. He is continuing on Dilantin and Keppra for seizures Exam Results Vital Signs Date Time Temp Pulse Resp B/P (MAP) Pulse Ox O2 Delivery O2 Flow Rate FiO2 11/12/16 09:27 100 40 11/12/16 06:00 108 11/12/16 04:00 98.7 21 103/59 (74) 11/11/16 20:13 Nasal Cannula 3.00 Intake and Output 11/12/16 11/12/16 11/12/16 07:59 15:59 23:59 Intake Total 690 ml Output Total 650 ml Balance 40 ml Physical Examination GENERAL: Patient is now intubated SKIN: Warm, dry & intact w/o any evident rashes, ulcerations or lesions. HEENT: No CSF otorrhea or rhinorrhea NECK: No JVD, trachea midline. CARDIOVASCULAR: S1S2 w/regular but rapid rate, no M/G/R, radial & pedal pulses 2 + bilaterally, cap refill < 2 sec, no pedal edema. Monitor is sinus tachycardia w/o any evident ectopy. RESPIRATORY: Intubated. Breath sounds clear. GASTROINTESTINAL: Abdomen soft, rounded, bowel sounds not appreciated. MUSCULOSKELETAL: No evident deformity or clubbing. NEUROLOGICAL: No eye opening to voice or deep pain Does not follow commands Localizes with both upper extremities to deep pain over the chest. Mild withdrawal lower extremities to deep pain Pupils are 2-3 mm nonreactive Mild disconjugate oculocephalic movements Lab, Micro, Other Results Last 24 hours Impressions Chest X-Ray 11/12/16812 Signed Impressions: Service Date/Time: Saturday, November 12, 2016 08:15 - CONCLUSION: Right IJ catheter tip at the origin the superior vena cava. No evidence of pneumothorax. Narayan Coulter MD Laboratory Tests Test 11/11/16 14:40 11/12/16 04:28 11/12/16 06:44 11/12/16 09:08 Sodium Level 135 MEQ/L 139 MEQ/L Serum Osmolality 286 MOSM/KG 296 MOSM/KG Phosphorus Level 2.0 MG/DL Magnesium Level 1.9 MG/DL B-Type Natriuretic Peptide 460 PG/ML Blood Gas Puncture Site LT RADIAL RT RADIAL Blood Gas Patient Temperature 98.6 98.6 Blood Gas HCO3 25 mmol/L 24 mmol/L Blood Gas Base Excess 1.5 mmol/L 0.5 mmol/L Blood Gas Oxygen Saturation 95 % 97 % Arterial Blood pH 7.50 7.48 Arterial Blood Partial Pressure CO2 32 mmHg 32 mmHg Arterial Blood Partial Pressure O2 85 mmHg 218 mmHg Arterial Blood Oxygen Content 11.4 Vol % 11.7 Vol % Arterial Blood Carboxyhemoglobin 2.0 % 1.9 % Arterial Blood Methemoglobin 0.8 % 0.7 % Blood Gas Hemoglobin 8.4 G/DL 8.1 G/DL Oxygen Delivery Device NASAL CANNULA VENTILATOR Blood Gas Liter Flow 2 L/M Blood Gas Ventilator Setting PRVC/16/550/1.0/+5 Blood Gas Inspired Oxygen 50 % Test 11/12/16 09:12 White Blood Count 14.9 TH/MM3 Red Blood Count 2.59 MIL/MM3 Hemoglobin 7.8 GM/DL Hematocrit 22.9 % Mean Corpuscular Volume 88.6 FL Mean Corpuscular Hemoglobin 30.0 PG Mean Corpuscular Hemoglobin Concent 33.9 % Red Cell Distribution Width 18.2 % Platelet Count 168 TH/MM3 Mean Platelet Volume 7.2 FL Neutrophils (%) (Auto) 29.0 % Lymphocytes (%) (Auto) 62.2 % Monocytes (%) (Auto) 8.8 % Eosinophils (%) (Auto) 0.0 % Basophils (%) (Auto) 0.0 % Neutrophils # (Auto) 4.3 TH/MM3 Lymphocytes # (Auto) 9.3 TH/MM3 Monocytes # (Auto) 1.3 TH/MM3 Eosinophils # (Auto) 0.0 TH/MM3 Basophils # (Auto) 0.0 TH/MM3 CBC Comment AUTO DIFF Ammonia 27 MCMOL/L Medical Decision Making Impression and Plan Impression: 1. Traumatic brain injury. Most recent CT scan stable with scattered bilateral right and left hemisphere contusions and subarachnoid hemorrhage. No significant mass effect. 2. Persistent seizure activity. EEG 11/11/16 with occasional spikes Plan: Discussed with supervisor buffing and pasting today. Continue present anticonvulsants. Neurology consult Repeat EEG. Continue ventilatory support Patient's family in the room this morning Non-chemical DVT prophylaxis Follow-up CT scan head an Tony Bender MD Nov 12, 2016 10:04
[2016-11-12 10:09] LABS: INTERNATIONAL NORMALIZED RATIO 1.1 RATIO; PROTHROMBIN TIME - PATIENT 11.7 SEC (9.8-11.6)
--- NOTE | 2016-11-12 10:19 | RADRPT ---
EXAM DATE/TIME: 11/12/2016 08:23 [facility] COMPARISON: No previous studies available for comparison. INDICATIONS : Post NG tube placement. MEDICAL HISTORY : Cardiovascular disease. Diabetes mellitus type 2. SURGICAL HISTORY : None. ENCOUNTER: Subsequent ACUITY: 1 day PAIN SCORE: Non-responsive. LOCATION: abdomen FINDINGS: Single view centered to the mid and upper abdomen was performed Gastric tube tip and side-port projec t within the stomach. No dilated loops of bowel seen. The faint calcific densities project over the medial right kidney which measure in aggregate 2.6 x 1.2 cm. CONCLUSION: 1. Gastric tube in good position. 2. Probable right renal stones. Narayan Coulter MD on November 12, 2016 at 10:16 Board Certified Radiologist. This report was verified electronically.
[2016-11-12 10:21] LABS: BANDS 2 % (0-6); NEUTROPHIL # MANUAL DIFF 6.7 TH/MM3 (1.8-7.7); POLYS (SEG NEUTROPHILS) 43 % (16-70); WBC DIFF SAMPLE 100
[2016-11-12 10:22] LABS: PLATELET ESTIMATE SMEAR NORMAL (NORMAL); PLATELET MORPHOLOGY NORMAL (NORMAL); SCAN/DIFF FINAL DIFF MANUAL; SMUDGE CELLS PRESENT PRESENT
[2016-11-12] MEDS: VANCOMYCIN INJ 2,000 MG in SODIUM CHLORID 0.9% 500 ML INJ 500 ML IV SCH (10:27)
[2016-11-12] MEDS ORDERED: LORazepam 2 MG/ML VIAL IV PUSH ONE (12:30)
[2016-11-12 12:41] LABS: BICARBONATE 24.4 MEQ/L (21.0-32.0); POTASSIUM 3.2 MEQ/L (3.5-5.1)
[2016-11-12] MEDS: metroNIDAZOLE 500 MG TAB PO SCH ×2 (12:54→22:04)
[2016-11-12] MEDS: POTASSIUM PHOSPHATE MONOBASIC 500 MG TAB PO PRN (12:55)
[2016-11-12] MEDS: POTASSIUM CHLOR 40 MEQ PREMIX 100 ML IV-CENTRAL PRN ×2 (12:57→15:06)
--- NOTE | 2016-11-12 20:21 | MB ---
cc: ATIYA JASSO DATE OF CONSULTATION 11/12/16 REASON FOR CONSULTATION Seizure. HISTORY OF PRESENT ILLNESS Mr. Garza is an 80-year-old man who fell down stairs while walking into his house, fell backwards, striking the back of his head, with unconsciousness for 10-15 minutes. He is found to have on a CT scan of the brain small to moderate-sized subdural hematoma along the right temporal and parietal lobes, multiple high-density intraparenchymal areas of hemorrhage versus subarachnoid hemorrhage. The patient developed as well intermittent seizure activity as generalized jerking activity mainly with stimulation. He did have an EEG as well which showed evidence of sharp activity in the right frontal central area. The patient currently is on Cerebyx for seizure control at a dose of 100 milligrams IV q. 8 hours as well as Keppra 1000 milligrams IV q. 12 hours. His phenytoin level total was 6.6 which corrects with protein to 11. His albumin was low at 2.5. NEUROLOGIC EXAMINATION VITAL SIGNS: Blood pressure is 103/59, pulse is 110, respiratory rate 21, temperature 98 degrees. NEURO: Higher cortical function he is sedated, does not respond to commands. Pupils are equal, reactive. Extraocular movements intact to doll's eyes maneuver. On motor exam there is no spontaneous limb movement. No tonic-clonic activity. No posturing. LABORATORY DATA Phenytoin 6.6, protein corrected phenytoin was 11. The white count is 14,900, hemoglobin is 7.8, hematocrit 22.9%, platelet count 168,000. The sodium is 141, serum osmolality 297, PT 11.7, INR 1.1, APTT 37. IMPRESSION Cerebral contusion as well as subdural hematoma secondary to seizure. RECOMMENDATIONS We will increase the Keppra dose to 1000 milligrams q. 8 hours, also increase the Cerebyx to 100 milligrams IV q. 6 hours and follow levels. Will repeat an EEG in the morning as well. MD SID Farah/JOSE MARIA /5:01 PM /8:00 PM
[2016-11-12] MEDS: fentaNYL DRIP 250 ML IV PRN (20:33)
[2016-11-12] MEDS: TAMSULOSIN HCL 0.4 MG CAP PO SCH (22:04)
[2016-11-13] VITALS (20 sets, daily range): BP systolic 98–132; BP diastolic 55–64; PULSE 82–107; RESP 14–17; TEMP 98.3–101.4; O2SAT 98–100
[2016-11-13] MEDS: SODIUM CHLOR 0.9% 1000 ML INJ 1,000 ML IV SCH (00:08)
[2016-11-13] MEDS: FOSPHENYTOIN SODIUM 100 MG PE/2 ML VIAL IV SCH ×4 (00:43→17:42)
[2016-11-13] MEDS: AZTREONAM INJ 2,000 MG in SODIUM CHLORIDE 0.9% INJ 100 ML IV SCH ×3 (00:44→15:43)
[2016-11-13] MEDS: INSULIN NovoLIN REGULAR SUPPLEMENTAL SCALE SQ SCH ×4 (00:46→17:45)
[2016-11-13 01:00] LABS: POTASSIUM 3.7 MEQ/L (3.5-5.1)
[2016-11-13] MEDS: RESP: ALBUTEROL 2.5 MG/IPRATROPIUM 0.5 MG NEB (SCH) INH ×4 (01:48→19:59)
--- NOTE | 2016-11-13 05:43 | MG ---
cc: MORRO CANNON MD Lab No: [id number] Date: 11/12/2016 Age: 80 Sex: M Race: EEG RECORD NUMBER [id number] DATE OF 1935 NOTE 80-year-old on Versed drip. FINDINGS Asymmetric right hemispheric slowing with right frontal sharp discharges occurring, phase reversal at F8, 0.5-2 Hz. Rhythmic right hemispheric sharply contoured delta/theta activity occurring at epoch 25 followed by what appear to be discharges with minimal lateralization including at epoch 34 followed by generalized delta slowing. Recurrent episode at epoch 49 to epoch 59. Discharges more isolated and sparse towards the latter third of the recording. Single lead EKG showing sinus rhythm. INTERPRETATION Appearance of two electrographic seizures emanating from the right hemisphere as described above. Cessation of epileptic activity with less frequent right hemispheric discharges in the last third to quarter of the recording. Clinical correlation. Morro Cannon MD MG/SSB /8:12 PM /5:29 AM
[2016-11-13 05:56] LABS: HEMATOCRIT 22.4 % (39.0-51.0); MEAN CELL VOLUME 89.5 FL (80.0-100.0); MEAN CORPUSCULAR HEMOGLOBIN 30.9 PG (27.0-34.0); MEAN CORPUSCULAR HGB CONC 34.5 % (32.0-36.0); PLATELET COUNT 163 TH/MM3 (150-450); RED BLOOD COUNT 2.51 MIL/MM3 (4.50-5.90); RED CELL DISTRIBUTION WIDTH 18.2 % (11.6-17.2); WHITE BLOOD COUNT 10.6 TH/MM3 (4.0-11.0)
[2016-11-13] MEDS: levETIRAcetam 1000 MG INJ 100 ML IV SCH ×3 (05:57→21:46)
[2016-11-13] MEDS: metroNIDAZOLE 500 MG TAB PO SCH ×3 (05:57→21:46)
[2016-11-13 06:00] LABS: REVIEW FLAG FINAL
[2016-11-13 06:31] LABS: BICARBONATE 25.7 MEQ/L (21.0-32.0); MAGNESIUM 1.9 MG/DL (1.5-2.5); POTASSIUM 3.5 MEQ/L (3.5-5.1)
[2016-11-13] MEDS: CHLORHEXIDINE 0.12% (ORAL KIT) 15 ML CUP MT SCH ×2 (08:48→20:19)
[2016-11-13] MEDS: POTASSIUM CHLOR 40 MEQ PREMIX 100 ML IV-CENTRAL PRN (08:49)
[2016-11-13] MEDS: MIDAZOLAM 100 MG/100 ML INJ 100 ML IV PRN (08:49)
[2016-11-13] MEDS: LANSOPRAZOLE SOLUTAB 30 MG TAB NG SCH (08:50)
[2016-11-13] MEDS: SENNOSIDES SYRUP 8.8 MG/5 ML CUP NG SCH ×2 (08:50→21:45)
[2016-11-13] MEDS: DOCUSATE SODIUM 100 MG/10 ML UDC PO SCH ×2 (08:50→21:45)
[2016-11-13] MEDS: BISOPROLOL FUMARATE 5 MG TAB PO SCH (08:50)
[2016-11-13] MEDS: SODIUM CHLORIDE 0.9% FLUSH 10 ML FLUSH IV FLUSH SCH ×2 (08:50→21:45)
[2016-11-13] MEDS: TOLTERODINE TARTRATE 2 MG CAP LA PO SCH (08:50)
[2016-11-13] MEDS: SODIUM CHLORIDE 0.9% FLUSH 10 ML FLUSH IVF SCH (08:50)
[2016-11-13] MEDS: 3% SALINE INJ 500 ML IV SCH (08:50)
[2016-11-13] MEDS: FINASTERIDE 5 MG TAB PO SCH (08:50)
[2016-11-13] MEDS: JUVEN POWDER 1 PACK G-TUBE SCH ×2 (08:51→21:45)
[2016-11-13] MEDS: ARTIFICIAL TEARS OPTH SOLN 15 ML BTL EACH EYE SCH ×3 (08:51→17:42)
[2016-11-13] MEDS: VANCOMYCIN INJ 2,000 MG in SODIUM CHLORID 0.9% 500 ML INJ 500 ML IV SCH (10:34)
[2016-11-13] MEDS: POTASSIUM PHOSPHATE MONOBASIC 500 MG TAB PO PRN (10:35)
--- NOTE | 2016-11-13 10:51 | HHI.NSPN ---
(Brennon White) History Chief Complaint: Unable to obtain due to patient's mental status. (Brennon White) Interval History 11/09: 80-year-old male who according to his family was going up a step into the house with his cane when he fell backwards, striking the back of his head. He was reportedly unconscious for 10-15 minutes. He then had some shaking in the extremities as he was waking up. He has been somewhat sleepy and a little confused since he woke up at the patient's family states that he is conversing reasonably well with them. He normally is fairly independent, ambulating with a cane and is usually mentally alert with only mild memory loss. Positive emesis reported. Patient has no complaint of headache or neck pain. No complaint of low back or joint pain. 11/10: nursing reports agitated overnight, currently sleeping. f/u CT Head completed, moves all four extremities. son translated - oriented to name and place only. 11/11: Notified by PARVIN Stoner, that Nursing had notified her that the patient's mental status was worse this morning and that she had ordered a stat CT brain. When seen this morning the patient is obtunded and not answering to verbal stimuli. Nursing reports that CT had called and was sending someone up to transport the patient to the scanner. She stated that the patient did receive morphine and hydrocodone during the night for pain because he was agitated. 11/12: The patient has been intubated this morning due to persistent decreased mental status. Possibly a few more episodes of seizure activity reported last evening. He is continuing on Dilantin and Keppra for seizures. 11/13: The patient still is intubated, mechanically ventilated and sedated with midazolam. He does not respond to noxious stimulation. The EEG done yesterday morning did demonstrate seizure activity. Neurology evaluated the patient yesterday and adjusted his anti-epileptic medications. An EEG was done this morning prior to the patient being seen. (Brennon White) System Review Comments Unable to obtain due to patient's mental status. (Brennon White) Exam Results 11/11/16 11/11/16 11/12/16 11/12/16 11/13/16 11/13/16 06:00 18:00 06:00 18:00 06:00 18:00 Intake Total 978 ml 734 ml 690 ml 1150 ml 1182 ml 852 ml Output Total 350 ml 1000 ml 650 ml 460.0 ml 1150 ml Balance 628 ml -266 ml 40 ml 690.0 ml 32 ml 852 ml IV Total 978 ml 734 ml 690 ml 1081 ml 761 ml 852 ml Tube Feeding 69 ml 301 ml Tube Irrigant 120 ml Output Urine Total 350 ml 1000 ml 650 ml 450 ml 1150 ml Tube Feeding Residual Discard 10.0 ml # Bowel Movements 0 0 Vital Signs Date Time Temp Pulse Resp B/P (MAP) Pulse Ox O2 Delivery O2 Flow Rate FiO2 11/13/16 10:06 100 40 11/13/16 08:02 100 40 11/13/16 06:00 98 11/13/16 04:16 100 40 11/13/16 04:00 98.4 104 16 132/62 (85) 100 11/13/16 04:00 104 11/13/16 04:00 40 11/13/16 02:00 100 11/13/16 01:47 100 40 11/13/16 00:00 94 11/13/16 00:00 40 11/13/16 00:00 98.3 94 17 112/57 (75) 100 11/12/16 22:54 100 40 11/12/16 22:00 98 11/12/16 20:11 100 40 11/12/16 20:00 40 11/12/16 20:00 100 11/12/16 20:00 99.8 100 22 131/62 (85) 100 11/12/16 19:00 100 Mechanical Ventilator 40 11/12/16 18:00 99 11/12/16 17:04 100 40 11/12/16 16:00 40 11/12/16 16:00 90 11/12/16 16:00 99.5 90 21 113/55 (74) 100 11/12/16 14:00 88 11/12/16 12:00 88 11/12/16 12:00 98.4 88 15 110/56 (74) 100 11/12/16 12:00 40 11/12/16 11:32 100 40 11/12/16 10:00 106 11/12/16 09:30 40 11/12/16 09:27 100 40 11/12/16 08:00 96 11/12/16 08:00 50 11/12/16 08:00 100.2 96 20 112/57 (75) 99 11/12/16 07:50 99 50 11/12/16 07:50 100 Mechanical Ventilator 50 11/12/16 07:00 94 Nasal Cannula 3.00 11/12/16 06:00 108 11/12/16 04:00 98.7 110 21 103/59 (74) 96 11/12/16 04:00 110 11/12/16 02:00 100 11/12/16 00:00 111 11/12/16 00:00 98.9 111 24 124/59 (80) 98 11/11/16 22:00 106 11/11/16 20:13 99 Nasal Cannula 3.00 11/11/16 20:00 106 11/11/16 20:00 98.3 106 26 128/61 (83) 100 11/11/16 19:00 94 Nasal Cannula 3.00 11/11/16 18:19 100 Nasal Cannula 2.00 11/11/16 18:00 102 11/11/16 16:00 105 11/11/16 16:00 99.5 104 21 124/58 (80) 99 11/11/16 14:00 109 11/11/16 12:00 116 11/11/16 12:00 102.0 112 19 119/58 (78) 96 11/11/16 10:00 116 11/11/16 08:19 100 Nasal Cannula 2.00 11/11/16 08:00 99.2 101 20 133/72 (92) 100 11/11/16 08:00 101 11/11/16 07:00 99 Nasal Cannula 3.00 11/11/16 06:00 106 11/11/16 04:00 104 11/11/16 04:00 98.7 104 21 122/58 (79) 99 11/11/16 02:00 94 11/11/16 00:00 99.9 89 17 114/61 (78) 99 11/11/16 00:00 86 11/10/16 22:00 88 11/10/16 20:00 99.4 101 20 115/57 (76) 100 11/10/16 20:00 101 11/10/16 19:19 12 11/10/16 19:04 100 Nasal Cannula 3.00 11/10/16 19:00 100 Nasal Cannula 3.00 11/10/16 18:00 90 11/10/16 16:00 99.0 98 14 113/56 (75) 95 11/10/16 16:00 98 11/10/16 14:00 88 11/10/16 12:00 109 11/10/16 12:00 98.3 98 16 108/52 (70) 99 11/10/16 11:30 Nasal Cannula 3.00 (Brennon White) Physical Examination GENERAL: Patient is now intubated. He has midazolam 4 mL/hr infusing for sedation with fentanyl 150 mcg/hr for pain control. SKIN: Warm, dry & intact w/o any evident rashes, ulcerations or lesions. HEENT: Normocephalic. Pupils 2 mm equal but nonreactive. Orally intubated. OGT. NECK: No JVD, trachea midline. CARDIOVASCULAR: S1S2 w/RRR w/o M/G/R, radial & pedal pulses 2+ bilaterally, cap refill < 2 sec, dependent edema. Monitor is sinus rhythm w/o any evident ectopy. RESPIRATORY: Essentially clear bilaterally, equal excursion, nonlaboured, intubated and mechanically ventilated, not breathing above vent rate. GASTROINTESTINAL: Abdomen soft, rounded, bowel sounds not appreciated, OGT w/ enteral feeds. MUSCULOSKELETAL: No evident deformity or clubbing. NEUROLOGICAL: Intubated & sedated w/midazolam. GCS 3T. No eye opening to voice or noxious stimulation. Pupils are 2 mm nonreactive. Does not follow commands. No movement to localised or central noxious stimulation. Unable to assess sensation. (Brennon White) Lab, Micro, Other Results Recent Impressions Chest X-Ray 11/12/16 0813 Signed Impressions: Service Date/Time: Saturday, November 12, 2016 08:15 - CONCLUSION: Right IJ catheter tip at the origin the superior vena cava. No evidence of pneumothorax. Narayan Coulter MD Abdomen X-Ray 11/12/16 0000 Signed Impressions: Service Date/Time: Saturday, November 12, 2016 08:23 - CONCLUSION: 1. Gastric tube in good position. 2. Probable right renal stones. Narayan Coulter MD Head CT 11/11/16 0000 Signed Impressions: Service Date/Time: Friday, November 11, 2016 09:44 - CONCLUSION: 1. Stable multiple intercranial contusions Blaine Shore MD Chest X-Ray 11/11/16 0000 Signed Impressions: Service Date/Time: Friday, November 11, 2016 07:11 - CONCLUSION: Mild streaky opacity remains in the perihilar regions without significant change. Cj Isidro MD Laboratory Tests Test 11/11/16 04:58 11/11/16 14:40 11/12/16 04:28 11/12/16 06:44 White Blood Count 32.0 TH/MM3 Red Blood Count 3.26 MIL/MM3 Hemoglobin 9.4 GM/DL Hematocrit 29.8 % Mean Corpuscular Volume 91.4 FL Mean Corpuscular Hemoglobin 28.8 PG Mean Corpuscular Hemoglobin Concent 31.6 % Red Cell Distribution Width 18.8 % Platelet Count 193 TH/MM3 Mean Platelet Volume 7.3 FL Neutrophils (%) (Auto) 27.6 % Lymphocytes (%) (Auto) 64.6 % Monocytes (%) (Auto) 7.6 % Eosinophils (%) (Auto) 0.1 % Basophils (%) (Auto) 0.1 % Neutrophils # (Auto) 8.8 TH/MM3 Lymphocytes # (Auto) 20.7 TH/MM3 Monocytes # (Auto) 2.4 TH/MM3 Eosinophils # (Auto) 0.0 TH/MM3 Basophils # (Auto) 0.0 TH/MM3 CBC Comment AUTO DIFF Differential Total Cells Counted 100 Neutrophils % (Manual) 33 % Band Neutrophils % 2 % Lymphocytes % 60 % Monocytes % 4 % Neutrophils # (Manual) 11.5 TH/MM3 Myelocytes 1 % Differential Comment FINAL DIFF MANUAL Ovalocytes 1+ Keratocytes OCC Sodium Level 135 MEQ/L 139 MEQ/L Serum Osmolality 286 MOSM/KG 296 MOSM/KG Phosphorus Level 2.0 MG/DL Magnesium Level 1.9 MG/DL B-Type Natriuretic Peptide 460 PG/ML Blood Gas Puncture Site LT RADIAL Blood Gas Patient Temperature 98.6 Blood Gas HCO3 25 mmol/L Blood Gas Base Excess 1.5 mmol/L Blood Gas Oxygen Saturation 95 % Arterial Blood pH 7.50 Arterial Blood Partial Pressure CO2 32 mmHg Arterial Blood Partial Pressure O2 85 mmHg Arterial Blood Oxygen Content 11.4 Vol % Arterial Blood Carboxyhemoglobin 2.0 % Arterial Blood Methemoglobin 0.8 % Blood Gas Hemoglobin 8.4 G/DL Oxygen Delivery Device NASAL CANNULA Blood Gas Liter Flow 2 L/M Test 11/12/16 09:08 11/12/16 09:12 11/12/16 14:42 11/12/16 18:20 Blood Gas Puncture Site RT RADIAL Blood Gas Patient Temperature 98.6 Blood Gas HCO3 24 mmol/L Blood Gas Base Excess 0.5 mmol/L Blood Gas Oxygen Saturation 97 % Arterial Blood pH 7.48 Arterial Blood Partial Pressure CO2 32 mmHg Arterial Blood Partial Pressure O2 218 mmHg Arterial Blood Oxygen Content 11.7 Vol % Arterial Blood Carboxyhemoglobin 1.9 % Arterial Blood Methemoglobin 0.7 % Blood Gas Hemoglobin 8.1 G/DL Oxygen Delivery Device VENTILATOR Blood Gas Ventilator Setting PRVC/16/550/1.0/+5 Blood Gas Inspired Oxygen 50 % White Blood Count 14.9 TH/MM3 Red Blood Count 2.59 MIL/MM3 Hemoglobin 7.8 GM/DL Hematocrit 22.9 % Mean Corpuscular Volume 88.6 FL Mean Corpuscular Hemoglobin 30.0 PG Mean Corpuscular Hemoglobin Concent 33.9 % Red Cell Distribution Width 18.2 % Platelet Count 168 TH/MM3 Mean Platelet Volume 7.2 FL Neutrophils (%) (Auto) 29.0 % Lymphocytes (%) (Auto) 62.2 % Monocytes (%) (Auto) 8.8 % Eosinophils (%) (Auto) 0.0 % Basophils (%) (Auto) 0.0 % Neutrophils # (Auto) 4.3 TH/MM3 Lymphocytes # (Auto) 9.3 TH/MM3 Monocytes # (Auto) 1.3 TH/MM3 Eosinophils # (Auto) 0.0 TH/MM3 Basophils # (Auto) 0.0 TH/MM3 CBC Comment AUTO DIFF Differential Total Cells Counted 100 Neutrophils % (Manual) 43 % Band Neutrophils % 2 % Lymphocytes % 51 % Monocytes % 4 % Neutrophils # (Manual) 6.7 TH/MM3 Differential Comment FINAL DIFF MANUAL Smudge Cells PRESENT Platelet Estimate NORMAL Platelet Morphology Comment NORMAL Red Cell Morphology Comment NORMAL Prothrombin Time 11.7 SEC Prothromb Time International Ratio 1.1 RATIO Activated Partial Thromboplast Time 37.0 SEC Fibrinogen 432 mg/dL Blood Urea Nitrogen 24 MG/DL Creatinine 0.75 MG/DL Random Glucose 147 MG/DL Calcium Level 7.9 MG/DL Sodium Level 140 MEQ/L 141 MEQ/L 144 MEQ/L Potassium Level 3.2 MEQ/L Chloride Level 107 MEQ/L Carbon Dioxide Level 24.4 MEQ/L Anion Gap 9 MEQ/L Estimat Glomerular Filtration Rate 100 ML/MIN Phosphorus Level 1.8 MG/DL Magnesium Level 2.0 MG/DL Ammonia 27 MCMOL/L B-Type Natriuretic Peptide 541 PG/ML Phenytoin (Dilantin) Level 6.6 MCG/ML Serum Osmolality 297 MOSM/KG 305 MOSM/KG Test 11/13/16 00:00 11/13/16 05:40 Sodium Level 145 MEQ/L 146 MEQ/L Potassium Level 3.7 MEQ/L 3.5 MEQ/L Serum Osmolality 306 MOSM/KG 309 MOSM/KG White Blood Count 10.6 TH/MM3 Red Blood Count 2.51 MIL/MM3 Hemoglobin 7.7 GM/DL Hematocrit 22.4 % Mean Corpuscular Volume 89.5 FL Mean Corpuscular Hemoglobin 30.9 PG Mean Corpuscular Hemoglobin Concent 34.5 % Red Cell Distribution Width 18.2 % Platelet Count 163 TH/MM3 Mean Platelet Volume 7.4 FL Blood Urea Nitrogen 20 MG/DL Creatinine 0.64 MG/DL Random Glucose 186 MG/DL Calcium Level 7.5 MG/DL Phosphorus Level 1.5 MG/DL Magnesium Level 1.9 MG/DL Chloride Level 114 MEQ/L Carbon Dioxide Level 25.7 MEQ/L Anion Gap 6 MEQ/L Estimat Glomerular Filtration Rate 120 ML/MIN Phenytoin (Dilantin) Level 7.5 MCG/ML (Brennon White) Medical Decision Making Impression and Plan Impression: 1. Traumatic brain injury 2. Hypertension 3. Diabetes 4. Respiratory failure 5. Seizures Leukocytosis resolved. Haemoglobin stable. Sodium 146 this morning. Patient nonresponsive w/minimal sedation. Plan: Critical care management per Legal Cashier. Anti-epileptic medications per Neurology. Frequent neuro checks. Continue present diabetic medications with insulin sliding scale. Non-chemical DVT prophylaxis. Ulcer prophylaxis. Repeat CT brain in AM. (Brennon White) Attending Statement The exam, history, and the medical decision-making described in the above note were completed with the assistance of the mid-level provider. I reviewed and agree with the findings presented. I attest that I had a [id number] encounter with the patient on the same day, and personally performed and documented my assessment and findings in the medical record. There has been no significant change patient's neurologic status on my examination today. I spoke with the patient's daughter in the room late in the evening on 11/13/16. I discussed the patient's neurologic course and prognosis. Follow-up CT scan is planned for 11/14/16. (Tony Godfrey MD) Brennon WhiteP Nov 13, 2016 10:51 Tony Godfrey MD Nov 14, 2016 19:49
[2016-11-13] MEDS ORDERED: POTASSIUM PHOSPHATE INJ 30 MMOL in SODIUM CHLOR 0.9% 250 ML INJ 250 ML IV ONE (13:45)
--- NOTE | 2016-11-13 13:51 | HHI.CCPN ---
Subjective Remarks/Hospital Course 80 y/o man fell backwards two days ago and hit the back of his head quite hard. LOC and vomiting followed by general lethargy, but conversant and responsive. I was asked to see him by nurse today for lack of responsiveness about 1100 hours. Unresponsive now and morning head CT demonstrates increased edema surrounding intraparenchymal hemorrhages, unchanged subdural collections. Stat EEG revealed generalized seizure activity. Discussed with Neurosurgery Service and AED started. Patient protects airway well, nonconvulsive. 11/12: Patient unresponsive and looking towards left. On fosphenytoin 100 mg IV every 8 hours and levetiracetam 1000 mg IV twice a day. Will need intubation along with central line placed for 3% hypertonic saline Subjective 11/13: Intubated yesterday severity ongoing seizure activity. EEG revealed cessation of seizure activity with lorazepam injection.. Tolerating tube feeding. No bowel movement. Afebrile. Objective Vital Signs Date Time Temp Pulse Resp B/P (MAP) Pulse Ox O2 Delivery O2 Flow Rate FiO2 11/13/16 13:38 100 40 11/13/16 06:00 98 11/13/16 04:00 98.4 16 132/62 (85) 11/12/16 19:00 Mechanical Ventilator 11/12/16 07:00 3.00 Intake and Output 11/13/16 11/13/16 11/13/16 07:59 15:59 23:59 Intake Total 1082 ml 1002 ml Output Total 1150 ml Balance -68 ml 1002 ml Result Diagram: 11/13/16 0540 11/13/16 0540 Other Results Microbiology Date/Time Source Procedure Growth Status 11/11/16 14:40 Blood Peripheral Aerobic Blood Culture - Preliminary NO GROWTH IN 2 DAYS Resulted 11/11/16 14:40 Blood Peripheral Anaerobic Blood Culture - Preliminary NO GROWTH IN 2 DAYS Resulted 11/12/16 22:25 Nasal Aspirate Influenza Types A,B Antigen (MEENU) - Final NEGATIVE FOR FLU A AND B ANTIGEN.... Complete Imaging Last Impressions Chest X-Ray 11/12/16 0813 Signed Impressions: Service Date/Time: Saturday, November 12, 2016 08:15 - CONCLUSION: Right IJ catheter tip at the origin the superior vena cava. No evidence of pneumothorax. Narayan Coulter MD Abdomen X-Ray 11/12/16 0000 Signed Impressions: Service Date/Time: Saturday, November 12, 2016 08:23 - CONCLUSION: 1. Gastric tube in good position. 2. Probable right renal stones. Narayan Coulter MD Head CT 11/11/16 0000 Signed Impressions: Service Date/Time: Friday, November 11, 2016 09:44 - CONCLUSION: 1. Stable multiple intercranial contusions Blaine Shore MD Cervical Spine CT 11/09/16 195 Signed Impressions: Service Date/Time: Wednesday, November 09, 2016 20:14 - CONCLUSION: Negative trauma CT. Cj Isidro MD Objective Remarks Gen: 80-year-old male, currently resting in bed orotracheally intubated Neck: Rigid, airway widely patent. No thyromegaly.. Right IJ clean dry and intact Lungs: Light end expiratory wheezes, no crackles. Good air movement. Heart: RRR. S1S2, no S4. Without murmur, clicks or rubs Abdomen: Soft, nondistended, hypoactive bowel sounds are appreciated. No guarding, no distention Extremities: Warm, well perfused. Trace edema feet. Neuro: Cranial nerves II through XII appear grossly intact. Withdraws to pain bilaterally. Urinary Catheter: Yes Assessment to: Continue Noriega insert reason: Prolonged Immobilization Vascular Central Line Catheter: Yes Assessment to: Continue Date of Insertion: Nov 12, 2016 Line: Central Venous Catheter Side: Right Location: Internal, Jugular A/P Assessment and Plan Neuro/Psych: Closed head injury - Traumatic Bilateral large intra-parenchymal hemorrhages/right temporal/parietal subdural hematoma and bifrontal contusions Nonconvulsive seizures CT brain 11/11 revealed bi frontal contusions, right temporal/parietal subdural hematoma around 8 mm in subarachnoid hemorrhage EEG 11/11 revealed mild to moderate encephalopathy. Right frontal/central generalized slowing with intermittent sharps waves Repeat EEG 11/12 revealed 2 clinical seizure activities that cessation with 2 mg Ativan IV 1. Repeat EEG today pending Currently on fosphenytoin 100 mg IV every 6 hours. A.m. level pending. Along with levetiracetam 1000 mg IV twice a day. Currently on hydrocodone/acetaminophen 10/325 one to 2 tablets every 4 hours when necessary pain Currently on 3% saline at 20 cc an hour. Serial sodiums Every 6 hours sodiums. Every 6 hours serum OSM. Goal maintain sodium currently 145 - 155 . Goal of serum osm less than 310 Neurosurgery/Dr. Godfrey follows Repeat CT head ordered for today CV: Atrial fibrillation Hypertension Currently normal saline at 84 cc an hour Currently on bisoprolol 5 mill grams by mouth daily/home medication with holding parameters for heart rate and blood pressure Not requiring vasopressors and/or antihypertensives. Goal keep systolic blood pressure less than 150 Resp: Acute respiratory insufficiency secondary to altered mental status Will likely require intubation for airway protection [facility] 16/around 550/03/13/49 Ventilator bundle Albuterol/ipratropium aerosols every 6 hours with albuterol aerosols every 2 hours when necessary breakthrough dyspnea Spontaneous breathing trials when clinically indicated Follow post intubation x-ray and ABG GI: Continue vital 1.5 goal 65 cc daily with benefit protein Lansoprazole 30 mg by tube for GI prophylaxis Docusate sodium 100 mg twice a day/senna 8.6 mg twice a day for bowel regimen : BPH Maintain Noriega Currently on tamsulosin 0.4 mg by mouth daily and tolterodine 2 mg by mouth daily - hospital substitution for finasteride 5 mg by mouth daily Endo: Diabetes mellitus - hemoglobin A1c 6.0 Currently on Novulin R sliding scale insulin every 6 hours to maintain euglycemia Holding glimepiride 5 mg by mouth daily. Renal: Creatinine currently within normal limits Monitor urine output Accurate I's and O's A.m. laboratories pending Heme: Leukocytosis Normocytic anemia Coags within normal limits. A.m. laboratories currently pending. ID: Previously on levofloxacin 500 mg IV daily We'll switch to vancomycin, aztreonam and metronidazole day #2 Pertinent cultures 11/11 - blood cultures 2 - no growth FEN: Hypophosphatemia Replace electrolytes as clinically indicated. 30 mmol potassium phosphate IV 1 now MSK: Physical therapy evaluate and treat Access Left IJ CVL day #2 placed 11/12/2016 Prophylaxis - GI - lanosprazole DVT - SCD/pharmacological prophylaxis when okay with neurosurgery Critical care time 30 minutes Deshaun Arias MD Nov 13, 2016 13:51
--- NOTE | 2016-11-13 14:53 | HHI.PR ---
Review/Management Diagnosis s/p closed head injury with cerebral contusion and bilateral subdural hematoma secondary SZ. Plan increase phenytoin (protein corrected phenytoin 14.4) Diagnosis/Plan: Subjective Subjective Comments No acute events reported Active Medications Current Medications Medications (Trade) Dose Ordered Sig/Gregg Route Start Time Stop Time Status Last Admin (Proscar) 5 mg DAILY PO 11/10/16 09:00 11/13/16 08:50 (Flomax) 0.4 mg HS PO 11/10/16 21:00 11/12/16 22:04 (Zebeta) 5 mg DAILY PO 11/10/16 09:00 11/13/16 08:50 (Detrol La) 2 mg DAILY PO 11/10/16 09:00 11/13/16 08:50 Nicardipine HCl 25 mg/Sodium Chloride 260 ml @ 52 mls/hr TITRATE PRN IV 11/09/16 23:45 (D50w (Vial) Inj) 50 ml UNSCH PRN IV 11/09/16 23:45 (Glucagon Inj) 1 mg UNSCH PRN OTHER 11/09/16 23:45 (Ativan Inj) 1 mg Q5M PRN IV 11/12/16 00:45 11/12/16 01:45 (Peridex 0.12% Liq) 15 ml BID@08,20 MT 11/12/16 08:00 11/13/16 08:48 Midazolam HCl 100 ml @ 2 mls/hr TITRATE PRN IV 11/12/16 07:15 11/13/16 08:49 Fentanyl Citrate 250 ml @ 5 mls/hr TITRATE PRN IV 11/12/16 07:15 11/12/16 20:33 (NS Flush) DAILY IVF 11/12/16 09:00 11/13/16 08:50 (NS Flush) UNSCH PRN IVF 11/12/16 08:15 (Prevacid Odt) 30 mg DAILY NG 11/12/16 09:00 11/13/16 08:50 Pharmacy Profile Note 0 ml @ 0 mls/hr UNSCH OTHER 11/12/16 08:30 Aztreonam 2000 mg/ Sodium Chloride 100 ml @ 200 mls/hr Q8H IV 11/12/16 09:00 11/13/16 08:49 (Flagyl) 500 mg Q8HR PO 11/12/16 14:00 11/13/16 05:57 (Duane Powder) 1 pack BID G-TUBE 11/12/16 09:00 11/13/16 08:51 (NovoLIN R SUPPLEMENTAL SCALE) 1 Q6HR SQ 11/12/16 12:00 11/13/16 11:47 (Colace Liq) 100 mg Q12HR PO 11/12/16 09:00 11/13/16 08:50 (Senna Liq) 8.8 mg BID NG 11/12/16 09:00 11/13/16 08:50 (NS Flush) 2 ml UNSCH PRN IV FLUSH 11/12/16 08:30 (NS Flush) 2 ml BID IV FLUSH 11/12/16 09:00 11/13/16 08:50 (Tears Naturale Opth Soln) 1 drop TID EACH EYE 11/12/16 09:00 11/13/16 11:47 (Zofran Inj) 4 mg Q6H PRN IV 11/12/16 08:30 (Duoneb Neb) 1 ampule Q6HR NEB INH 11/12/16 10:00 11/13/16 10:00 (Albuterol Neb) 2.5 mg Q2HR NEB PRN INH 11/12/16 08:30 (Dulcolax Supp) 10 mg DAILY PRN RECTAL 11/12/16 08:30 (Lactulose Liq) 30 ml DAILY PRN PO 11/12/16 08:30 Potassium Chloride 100 ml @ 50 mls/hr Q2H PRN IV-CENTRAL 11/12/16 08:30 11/13/16 08:49 Potassium Chloride 100 ml @ 50 mls/hr Q2H PRN IV 11/12/16 08:30 (K-Lyte Cl Eff) 50 meq UNSCH PRN PO 11/12/16 08:30 Potassium Chloride 100 ml @ 25 mls/hr UNSCH PRN IV-CENTRAL 11/12/16 08:30 Potassium Chloride 100 ml @ 50 mls/hr Q2H PRN IV 11/12/16 08:30 Magnesium Sulfate 4 gm/Sodium Chloride 100 ml @ 50 mls/hr UNSCH PRN IV 11/12/16 08:30 (Mag-Ox) 800 mg UNSCH PRN PO 11/12/16 08:30 Magnesium Sulfate 2 gm/Sodium Chloride 100 ml @ 50 mls/hr UNSCH PRN IV 11/12/16 08:30 (K-Phos) 2,000 mg Q4H PRN PO 11/12/16 08:30 11/13/16 10:35 Sodium Phosphate 30 mmol/Sodium Chloride 250 ml @ 42 mls/hr UNSCH PRN IV 11/12/16 08:30 (K-Phos) 2,000 mg UNSCH PRN PO/TUBE 11/12/16 08:30 Potassium Phosphate 30 mmol/ Sodium Chloride 260 ml @ 42 mls/hr UNSCH PRN IV 11/12/16 08:30 (Tylenol 650 Mg/ 20 ml Liq) 650 mg Q6H PRN NG 11/12/16 08:45 Vancomycin HCl 2000 mg/Sodium Chloride 520 ml @ 250 mls/hr Q24H IV 11/12/16 11:00 11/13/16 10:34 Sodium Chloride 500 ml @ 20 mls/hr Q24H IV 11/12/16 09:00 11/13/16 08:50 Miscellaneous Information SPECIFIC LAB TO BE DRAWN:VANCOMYCIN TROUGH DATE TO... ONCE ONCE .XX 11/15/16 10:45 11/15/16 10:46 Levetriacetam 100 ml @ 400 mls/hr Q8HR IV 11/12/16 22:00 11/13/16 05:57 (Cerebyx Inj) 100 mgpe Q6HR IV 11/12/16 18:00 11/13/16 11:46 Potassium Phosphate 30 mmol/ Sodium Chloride 260 ml @ 43.333 mls/ hr ONCE ONCE IV 11/13/16 13:45 11/13/16 19:44 (Miralax) 17 gm BID OG-TUBE 11/13/16 21:00 (Lactulose Liq) 30 ml DAILY PO 11/14/16 09:00 UNV (Lactulose Liq) 30 ml ONCE ONCE PO 11/13/16 15:00 11/13/16 15:01 (Kondremul Liq) 30 ml ONCE ONCE PO 11/13/16 14:45 11/13/16 14:46 UNV (Glycerin Adult Supp) 2 gm BID PRN RECTAL 11/13/16 15:00 Allergies Allergies Coded Allergies Penicillins (Verified Allergy, Unknown, 11/09/16) Exam I&O / VS 11/13/16 11/13/16 11/14/16 15:00 23:00 07:00 Intake Total 1002 ml Balance 1002 ml IV Total 1002 ml Vital Signs Date Time Temp Pulse Resp B/P (MAP) Pulse Ox O2 Delivery O2 Flow Rate FiO2 11/13/16 13:38 100 40 11/13/16 10:06 100 40 11/13/16 08:02 100 40 11/13/16 06:00 98 11/13/16 04:16 100 40 11/13/16 04:00 98.4 104 16 132/62 (85) 100 11/13/16 04:00 104 11/13/16 04:00 40 11/13/16 02:00 100 11/13/16 01:47 100 40 11/13/16 00:00 94 11/13/16 00:00 40 11/13/16 00:00 98.3 94 17 112/57 (75) 100 11/12/16 22:54 100 40 11/12/16 22:00 98 11/12/16 20:11 100 40 11/12/16 20:00 40 11/12/16 20:00 100 11/12/16 20:00 99.8 100 22 131/62 (85) 100 11/12/16 19:00 100 Mechanical Ventilator 40 11/12/16 18:00 99 11/12/16 17:04 100 40 11/12/16 16:00 40 11/12/16 16:00 90 11/12/16 16:00 99.5 90 21 113/55 (74) 100 Exam Comments on ventilator. nonresponsive.PERRL MOTOR--no focal deficit. No myoclonus or clinical Sz seen at this time Objective Micro and Labs Laboratory Tests Test 11/12/16 18:20 11/13/16 00:00 11/13/16 05:40 11/13/16 13:30 Sodium Level 144 145 146 146 Serum Osmolality 305 306 309 310 Potassium Level 3.7 3.5 White Blood Count 10.6 Red Blood Count 2.51 Hemoglobin 7.7 Hematocrit 22.4 Mean Corpuscular Volume 89.5 Mean Corpuscular Hemoglobin 30.9 Mean Corpuscular Hemoglobin Concent 34.5 Red Cell Distribution Width 18.2 Platelet Count 163 Mean Platelet Volume 7.4 Blood Urea Nitrogen 20 Creatinine 0.64 Random Glucose 186 Calcium Level 7.5 Phosphorus Level 1.5 Magnesium Level 1.9 Chloride Level 114 Carbon Dioxide Level 25.7 Anion Gap 6 Estimat Glomerular Filtration Rate 120 Phenytoin (Dilantin) Level 7.5 8.6 Date/Time Source Procedure Growth Status 11/11/16 14:40 Blood Peripheral Aerobic Blood Culture - Preliminary NO GROWTH IN 2 DAYS Resulted 11/11/16 14:40 Blood Peripheral Anaerobic Blood Culture - Preliminary NO GROWTH IN 2 DAYS Resulted 11/12/16 22:25 Nasal Aspirate Influenza Types A,B Antigen (MEENU) - Final NEGATIVE FOR FLU A AND B ANTIGEN.... Complete Diagnostic Tests EEG---two electrographic sz from right hemisphere Omer Nguyen PhD Nov 13, 2016 14:53
[2016-11-13] MEDS ORDERED: LACTULOSE SYRUP 20 GM/30 ML CUP PO ONE (15:00)
[2016-11-13] MEDS ORDERED: GLYCERIN ADULT 2 GM SUPP RECTAL PRN (15:00)
[2016-11-13] MEDS ORDERED: FOSPHENYTOIN SODIUM 100 MG PE/2 ML VIAL IV ONE (16:00)
[2016-11-13] MEDS ORDERED: MINERAL OIL LIQUID 30 ML CUP PO ONE (16:00)
[2016-11-13] MEDS: ACETAMINOPHEN 650 MG/20.3 ML UDC NG PRN (16:59)
--- NOTE | 2016-11-13 17:45 | MG ---
cc: MORRO CANNON MD Lab No: [id number] Date: 11/13/2016 Age: 80 Sex: M Race: DATE OF : 1935 HISTORY: A 80 year-old with history of mental status changes. PROCEDURE: Generalized 1-3 hertz delta activity occurring. Mild pseudo periodic low voltage waveforms in the right frontal region. No driving with photic stimulation, single electrocardiogram showing sinus rhythm. INTERPRETATION: Moderate to severe encephalopathy, characterized by low amplitude delta slowing with continued right frontal slowing, periodic waves although low voltage appears to be an improvement from previous electroencephalogram. Clinical correlation. Morro Cannon MD MG/ /5:33 PM /5:35 PM
[2016-11-13] MEDS: TAMSULOSIN HCL 0.4 MG CAP PO SCH (21:00)
[2016-11-13] MEDS: POLYETHYLENE GLYCOL 17 GM PKG OG-TUBE SCH (21:45)
[2016-11-13] MEDS: fentaNYL DRIP 250 ML IV PRN (23:20)
[2016-11-14] VITALS (23 sets, daily range): BP systolic 113–151; BP diastolic 57–100; PULSE 93–128; RESP 14–20; TEMP 98.1–102.1; O2SAT 95–100
[2016-11-14] MEDS: FOSPHENYTOIN SODIUM 100 MG PE/2 ML VIAL IV SCH ×4 (00:10→16:57)
[2016-11-14] MEDS: INSULIN NovoLIN REGULAR SUPPLEMENTAL SCALE SQ SCH ×4 (00:30→16:57)
[2016-11-14] MEDS: AZTREONAM INJ 2,000 MG in SODIUM CHLORIDE 0.9% INJ 100 ML IV SCH ×3 (01:17→15:09)
[2016-11-14] MEDS ORDERED: hydrALAZINE HCL 20 MG/ML VIAL IV PUSH PRN (02:15)
[2016-11-14] MEDS: RESP: ALBUTEROL 2.5 MG/IPRATROPIUM 0.5 MG NEB (SCH) INH ×4 (02:50→20:39)
[2016-11-14] MEDS: METOPROLOL TARTRATE 5 MG/5 ML VIAL IV PUSH PRN (03:25)
[2016-11-14] MEDS: ACETAMINOPHEN 650 MG/20.3 ML UDC NG PRN ×3 (03:45→18:58)
[2016-11-14 04:05] LABS: AUTOMATED NEUTROPHIL # 4.9 TH/MM3 (1.8-7.7); BASOPHIL % 0.1 % (0.0-2.0); EOSINOPHIL # 0.1 TH/MM3 (0-0.4); EOSINOPHIL % 0.3 % (0.0-4.0); HEMATOCRIT 28.3 % (39.0-51.0); LYMPHOCYTE # 13.4 TH/MM3 (1.0-4.8); MEAN CELL VOLUME 91.1 FL (80.0-100.0); MEAN CORPUSCULAR HEMOGLOBIN 29.4 PG (27.0-34.0); MEAN CORPUSCULAR HGB CONC 32.3 % (32.0-36.0); MONO % 8.2 % (0.0-8.0); NEUT % 24.4 % (16.0-70.0); PLATELET COUNT 213 TH/MM3 (150-450); RED BLOOD COUNT 3.11 MIL/MM3 (4.50-5.90); RED CELL DISTRIBUTION WIDTH 18.5 % (11.6-17.2)
[2016-11-14 04:25] LABS: HEMO FLAGS AUTO DIFF
[2016-11-14 04:29] LABS: ALT (GPT) 12 U/L (12-78); ANION GAP 8 MEQ/L (5-15); AST (GOT) 15 U/L (15-37); BICARBONATE 24.9 MEQ/L (21.0-32.0); BLOOD UREA NITROGEN 19 MG/DL (7-18); CHLORIDE 115 MEQ/L (98-107); GLOMERULAR FILTRATION RATE 146 ML/MIN (>89); POTASSIUM 3.9 MEQ/L (3.5-5.1); SODIUM (NA) 148 MEQ/L (136-145)
[2016-11-14 04:32] LABS: ALKALINE PHOSPHATASE 58 U/L (45-117); TOTAL BILIRUBIN ADULT 1.2 MG/DL (0.2-1.0)
[2016-11-14 05:03] LABS: BANDS 2 % (0-6); NEUTROPHIL # MANUAL DIFF 5.8 TH/MM3 (1.8-7.7); POLYS (SEG NEUTROPHILS) 27 % (16-70); WBC DIFF SAMPLE 100
[2016-11-14 05:04] LABS: PLATELET ESTIMATE SMEAR NORMAL (NORMAL); PLATELET MORPHOLOGY NORMAL (NORMAL); SCAN/DIFF FINAL DIFF MANUAL
--- NOTE | 2016-11-14 05:48 | RADRPT ---
EXAM DATE/TIME: 11/14/2016 03:40 [facility] COMPARISON: CHEST SINGLE AP, November 12, 2016, 8:15. INDICATIONS : Respiratory failure MEDICAL HISTORY : Cardiovascular disease. Diabetes mellitus type 2. SURGICAL HISTORY : None. ENCOUNTER: Subsequent ACUITY: 3 days PAIN SCORE: Non-responsive. LOCATION: Bilateral chest FINDINGS: ETT is approximately 1.5 cm above the camryn. Right IJ is stable. NGT courses beyond the GE junction the tip of it from the image. Lungs are hyperaerated with mixed interstitial and airspace opacities i n the lower lobes bilaterally. Stable probable small left pleural effusion. Cardiomediastinal contour s are stable. Remainder of exam is unchanged. CONCLUSION: 1. Tubes and lines, as above. 2. Mild progression of bilateral lower lung zone mixed interstitial and airspace opacities. 3. Stable small left pleural effusion. Konstantin Dash MD on November 14, 2016 at 5:44 Board Certified Radiologist. This report was verified electronically.
--- NOTE | 2016-11-14 06:58 | RADRPT ---
EXAM DATE/TIME: 11/14/2016 06:29 [facility] COMPARISON: CT BRAIN W/O CONTRAST, November 11, 2016, 9:44. INDICATIONS : Follow up bleed. RADIATION DOSE: 27.30 CTDIvol (mGy) MEDICAL HISTORY : Cardiovascular disease. Diabetes mellitus type 2. SURGICAL HISTORY : None. ENCOUNTER: Subsequent ACUITY: 4 - 6 days PAIN SCALE: Non-responsive LOCATION: cranial TECHNIQUE: Multiple contiguous axial images were obtained of the head. Using automated exposure control and adj ustment of the mA and/or kV according to patient size, radiation dose was kept as low as reasonably a chievable to obtain optimal diagnostic quality images. DICOM format image data is available electro nically for review and comparison. FINDINGS: Evolving bilateral frontal contusions, right subdural hematoma, and tentorial subdural hematoma. Ther e is also evolving diffuse scattered bilateral subarachnoid hemorrhage. No evidence for intercurrent hemorrhage. Ventricles are stable in size and midline. Basilar cisterns are maintained. Brainstem and cerebellum are grossly intact. Remainder of exam is unchanged. CONCLUSION: 1. Evolving bifrontal contusions, subdural and subarachnoid hemorrhage. 2. No intercurrent hemorrhage or herniation. Konstantin Dash MD on November 14, 2016 at 6:53 Board Certified Radiologist. This report was verified electronically.
[2016-11-14] MEDS: metroNIDAZOLE 500 MG TAB PO SCH ×3 (07:00→21:29)
[2016-11-14] MEDS: levETIRAcetam 1000 MG INJ 100 ML IV SCH ×3 (07:00→21:29)
[2016-11-14] MEDS: CHLORHEXIDINE 0.12% (ORAL KIT) 15 ML CUP MT SCH ×2 (08:16→20:00)
[2016-11-14] MEDS: ARTIFICIAL TEARS OPTH SOLN 15 ML BTL EACH EYE SCH ×3 (08:17→16:38)
[2016-11-14] MEDS: JUVEN POWDER 1 PACK G-TUBE SCH ×2 (08:17→21:00)
[2016-11-14] MEDS: SODIUM CHLORIDE 0.9% FLUSH 10 ML FLUSH IV FLUSH SCH ×2 (08:18→21:30)
[2016-11-14] MEDS: SODIUM CHLORIDE 0.9% FLUSH 10 ML FLUSH IVF SCH (08:19)
[2016-11-14] MEDS: TOLTERODINE TARTRATE 2 MG CAP LA PO SCH (08:20)
[2016-11-14] MEDS: LACTULOSE SYRUP 20 GM/30 ML CUP PO SCH (08:20)
[2016-11-14] MEDS: DOCUSATE SODIUM 100 MG/10 ML UDC PO SCH ×2 (08:20→21:00)
[2016-11-14] MEDS: POLYETHYLENE GLYCOL 17 GM PKG OG-TUBE SCH ×2 (08:20→21:00)
[2016-11-14] MEDS: SENNOSIDES SYRUP 8.8 MG/5 ML CUP NG SCH ×2 (08:20→21:00)
[2016-11-14] MEDS: LANSOPRAZOLE SOLUTAB 30 MG TAB NG SCH (08:20)
[2016-11-14] MEDS: FINASTERIDE 5 MG TAB PO SCH (08:24)
[2016-11-14] MEDS: BISOPROLOL FUMARATE 5 MG TAB PO SCH (08:24)
[2016-11-14] MEDS: VANCOMYCIN INJ 2,000 MG in SODIUM CHLORID 0.9% 500 ML INJ 500 ML IV SCH (10:23)
[2016-11-14] MEDS: 3% SALINE INJ 500 ML IV SCH (10:24)
--- NOTE | 2016-11-14 11:28 | EKG ---
Date Performed: 11/14/2016 Time Performed: 04:31:38 PTAGE: 80 years EKG: Sinus tachycardia Rightward axis Inferior/lateral ST-T changes are nonspecific Low QRS volt ages in precordial leads Borderline ECG PREVIOUS TRACING : 11/10/2016 01.15 Compared to previous tracing, inferior and lateral ST depre ssion has nearly resolved. DOCTOR: Cesar Franco Interpretating Date/Time 11/14/2016 11:26:41
--- NOTE | 2016-11-14 14:58 | HHI.CCPN ---
Subjective Remarks/Hospital Course 80 y/o man fell backwards two days ago and hit the back of his head quite hard. LOC and vomiting followed by general lethargy, but conversant and responsive. I was asked to see him by nurse today for lack of responsiveness about 1100 hours. Unresponsive now and morning head CT demonstrates increased edema surrounding intraparenchymal hemorrhages, unchanged subdural collections. Stat EEG revealed generalized seizure activity. Discussed with Neurosurgery Service and AED started. Patient protects airway well, nonconvulsive. 11/12: Patient unresponsive and looking towards left. On fosphenytoin 100 mg IV every 8 hours and levetiracetam 1000 mg IV twice a day. Will need intubation along with central line placed for 3% hypertonic saline Subjective 11/13: Intubated yesterday severity ongoing seizure activity. EEG revealed cessation of seizure activity with lorazepam injection.. Tolerating tube feeding. No bowel movement. Afebrile. 11/14: Gas exchange acceptable. CT head worrisome. CXR with accumulating effusions. Daughter at bedside. Objective Vital Signs Date Time Temp Pulse Resp B/P (MAP) Pulse Ox O2 Delivery O2 Flow Rate FiO2 11/14/16 14:00 93 11/14/16 13:35 98.8 11/14/16 12:00 40 11/14/16 12:00 18 114/57 (76) 100 11/14/16 07:00 Mechanical Ventilator 11/12/16 07:00 3.00 Intake and Output 11/14/16 11/14/16 11/15/16 08:00 16:00 00:00 Intake Total 636 ml 1380 ml Output Total 1850 ml Balance -1214 ml 1380 ml Result Diagram: 11/14/16 0345 11/14/16 1300 Other Results Microbiology Date/Time Source Procedure Growth Status 11/12/16 22:25 Nasal Aspirate Influenza Types A,B Antigen (MEENU) - Final NEGATIVE FOR FLU A AND B ANTIGEN.... Complete 11/12/16 22:20 Sputum Endotracheal Gram Stain - Final Complete 11/12/16 22:20 Sputum Endotracheal Sputum Culture - Final HEAVY GROWTH NORMAL RESPIRATORY ITZEL Complete Imaging Last Impressions Chest X-Ray 11/12/16 0813 Signed Impressions: Service Date/Time: Saturday, November 12, 2016 08:15 - CONCLUSION: Right IJ catheter tip at the origin the superior vena cava. No evidence of pneumothorax. Narayan Coulter MD Abdomen X-Ray 11/12/16 0000 Signed Impressions: Service Date/Time: Saturday, November 12, 2016 08:23 - CONCLUSION: 1. Gastric tube in good position. 2. Probable right renal stones. Narayan Coulter MD Head CT 11/11/16 0000 Signed Impressions: Service Date/Time: Friday, November 11, 2016 09:44 - CONCLUSION: 1. Stable multiple intercranial contusions Blaine Shore MD Cervical Spine CT 11/09/161950 Signed Impressions: Service Date/Time: Wednesday, November 09, 2016 20:14 - CONCLUSION: Negative trauma CT. Cj Isidro MD Objective Remarks Gen: 80-year-old male, currently resting in bed orotracheally intubated Neck: Rigid, airway widely patent. No thyromegaly.. Right IJ clean dry and intact Lungs: Light end expiratory wheezes, no crackles. Good air movement. Heart: RRR. S1S2, no S4. Without murmur, clicks or rubs Abdomen: Soft, nondistended, hypoactive bowel sounds are appreciated. No guarding, no distention Extremities: Warm, well perfused. Trace edema feet. Neuro: Withdraws to pain bilaterally. Date of Insertion: Nov 12, 2016 Line: Central Venous Catheter Side: Right Location: Internal, Jugular A/P Assessment and Plan Neuro/Psych: Closed head injury - Traumatic Bilateral large intra-parenchymal hemorrhages/right temporal/parietal subdural hematoma and bifrontal contusions Nonconvulsive seizures CT brain 11/11 revealed bi frontal contusions, right temporal/parietal subdural hematoma around 8 mm in subarachnoid hemorrhage EEG 11/11 revealed mild to moderate encephalopathy. Right frontal/central generalized slowing with intermittent sharps waves Repeat EEG 11/12 revealed 2 clinical seizure activities that cessation with 2 mg Ativan IV 1. Repeat EEG today pending Currently on fosphenytoin 100 mg IV every 6 hours. A.m. level pending. Along with levetiracetam 1000 mg IV twice a day. Currently on hydrocodone/acetaminophen 10/325 one to 2 tablets every 4 hours when necessary pain Currently on 3% saline at 20 cc an hour. Serial sodiums Every 6 hours sodiums. Every 6 hours serum OSM. Goal maintain sodium currently 145 - 155 . Goal of serum osm less than 310 Neurosurgery/Dr. Godfrey follows Repeat CT head ordered for today -> edema CV: Atrial fibrillation Hypertension Currently normal saline at 84 cc an hour Currently on bisoprolol 5 mill grams by mouth daily/home medication with holding parameters for heart rate and blood pressure Not requiring vasopressors and/or antihypertensives. Goal keep systolic blood pressure less than 150 Resp: Acute respiratory insufficiency secondary to altered mental status Will likely require intubation for airway protection [facility] 16/around 550/03/13/49 Ventilator bundle Albuterol/ipratropium aerosols every 6 hours with albuterol aerosols every 2 hours when necessary breakthrough dyspnea Spontaneous breathing trials when clinically indicated Follow post intubation x-ray and ABG GI: Continue vital 1.5 goal 65 cc daily with benefit protein Lansoprazole 30 mg by tube for GI prophylaxis Docusate sodium 100 mg twice a day/senna 8.6 mg twice a day for bowel regimen : BPH Maintain Noriega Currently on tamsulosin 0.4 mg by mouth daily and tolterodine 2 mg by mouth daily - hospital substitution for finasteride 5 mg by mouth daily Endo: Diabetes mellitus - hemoglobin A1c 6.0 Currently on Novulin R sliding scale insulin every 6 hours to maintain euglycemia Holding glimepiride 5 mg by mouth daily. Renal: Creatinine currently within normal limits Monitor urine output Accurate I's and O's A.m. laboratories pending Heme: Leukocytosis Normocytic anemia Coags within normal limits. A.m. laboratories currently pending. ID: Previously on levofloxacin 500 mg IV daily We'll switch to vancomycin, aztreonam and metronidazole day #2 Pertinent cultures 11/11 - blood cultures 2 - no growth FEN: Hypophosphatemia Replace electrolytes as clinically indicated. 30 mmol potassium phosphate IV 1 now MSK: Physical therapy evaluate and treat Access Left IJ CVL day #3 placed 11/12/2016 Prophylaxis - GI - lanosprazole DVT - SCD/pharmacological prophylaxis when okay with neurosurgery Overall impression: Critically ill and deteriorating pulmonary status in wake of severe head injury. Unable to wean ventilator. Critical care 44 mins Dev Loaiza MD Nov 14, 2016 14:58
--- NOTE | 2016-11-14 15:48 | HHI.NSPN ---
([place] MACIAS) History Chief Complaint: Unable to obtain due to patient's mental status. (CindyBrennon MACIAS) Interval History 11/09: 80-year-old male who according to his family was going up a step into the house with his cane when he fell backwards, striking the back of his head. He was reportedly unconscious for 10-15 minutes. He then had some shaking in the extremities as he was waking up. He has been somewhat sleepy and a little confused since he woke up at the patient's family states that he is conversing reasonably well with them. He normally is fairly independent, ambulating with a cane and is usually mentally alert with only mild memory loss. Positive emesis reported. Patient has no complaint of headache or neck pain. No complaint of low back or joint pain. 11/10: nursing reports agitated overnight, currently sleeping. f/u CT Head completed, moves all four extremities. son translated - oriented to name and place only. 11/11: Notified by PARVIN Stoner, that Nursing had notified her that the patient's mental status was worse this morning and that she had ordered a stat CT brain. When seen this morning the patient is obtunded and not answering to verbal stimuli. Nursing reports that CT had called and was sending someone up to transport the patient to the scanner. She stated that the patient did receive morphine and hydrocodone during the night for pain because he was agitated. 11/12: The patient has been intubated this morning due to persistent decreased mental status. Possibly a few more episodes of seizure activity reported last evening. He is continuing on Dilantin and Keppra for seizures. 11/13: The patient still is intubated, mechanically ventilated and sedated with midazolam. He does not respond to noxious stimulation. The EEG done yesterday morning did demonstrate seizure activity. Neurology evaluated the patient yesterday and adjusted his anti-epileptic medications. An EEG was done this morning prior to the patient being seen. 11/14: The patient remains intubated. A midazolam drip is still infusing as is a fentanyl drip. A repeat Ct brain this morning demonstrated evolving contusions and haemorrhages. (Brennon White) System Review Comments Unable to obtain due to patient's mental status. (Brennon White) Exam Results 11/12/16 11/12/16 11/13/16 11/13/16 11/14/16 11/14/16 06:00 18:00 06:00 18:00 06:00 18:00 Intake Total 690 ml 1750 ml 1182 ml 2437 ml 686 ml 1380 ml Output Total 650 ml 460.0 ml 1150 ml 1500 ml 1850 ml Balance 40 ml 1290.0 ml 32 ml 937 ml -1164 ml 1380 ml IV Total 690 ml 1681 ml 761 ml 1832 ml 50 ml 1380 ml Tube Feeding 69 ml 301 ml 405 ml 536 ml Tube Irrigant 120 ml Other 200 ml 100 ml Output Urine Total 650 ml 450 ml 1150 ml 1500 ml 1850 ml Tube Feeding Residual Discard 10.0 ml 0 ml 0 ml # Bowel Movements 0 0 0 0 Vital Signs Date Time Temp Pulse Resp B/P (MAP) Pulse Ox O2 Delivery O2 Flow Rate FiO2 11/14/16 15:17 100 40 11/14/16 14:00 93 11/14/16 13:35 98.8 11/14/16 12:17 100.0 11/14/16 12:00 40 11/14/16 12:00 106 11/14/16 12:00 102.1 106 18 114/57 (76) 100 11/14/16 11:28 100 40 11/14/16 10:00 106 11/14/16 08:34 40 11/14/16 08:34 100 40 11/14/16 08:00 100 11/14/16 08:00 101.7 112 14 113/100 (104) 100 11/14/16 08:00 113 11/14/16 07:00 100 Mechanical Ventilator 11/14/16 06:15 100 100 11/14/16 06:00 112 11/14/16 04:08 100 40 11/14/16 04:00 102.1 128 14 124/66 (85) 95 11/14/16 04:00 40 11/14/16 04:00 125 11/14/16 02:00 112 11/14/16 01:15 100 40 11/14/16 00:00 98.1 100 14 140/67 (91) 100 11/14/16 00:00 100 11/14/16 00:00 40 11/13/16 22:18 100 40 11/13/16 22:00 94 11/13/16 20:33 99 40 11/13/16 20:00 40 11/13/16 20:00 98.4 82 14 98/55 (69) 98 11/13/16 20:00 82 11/13/16 19:00 100 Mechanical Ventilator 40 11/13/16 18:00 90 11/13/16 18:00 100.2 11/13/16 16:00 40 11/13/16 16:00 101.4 101 15 114/55 (74) 100 11/13/16 16:00 104 11/13/16 15:41 100 40 11/13/16 14:00 106 11/13/16 13:38 100 40 11/13/16 12:00 101 11/13/16 12:00 99.8 101 17 123/64 (83) 100 11/13/16 12:00 40 11/13/16 10:06 100 40 11/13/16 10:00 98 11/13/16 08:02 100 40 11/13/16 08:00 107 11/13/16 08:00 99.2 107 15 119/61 (80) 100 11/13/16 08:00 40 11/13/16 07:00 100 Mechanical Ventilator 40 11/13/16 06:00 98 11/13/16 04:16 100 40 11/13/16 04:00 98.4 104 16 132/62 (85) 100 11/13/16 04:00 104 11/13/16 04:00 40 11/13/16 02:00 100 11/13/16 01:47 100 40 11/13/16 00:00 94 11/13/16 00:00 40 11/13/16 00:00 98.3 94 17 112/57 (75) 100 11/12/16 22:54 100 40 11/12/16 22:00 98 11/12/16 20:11 100 40 11/12/16 20:00 40 11/12/16 20:00 100 11/12/16 20:00 99.8 100 22 131/62 (85) 100 11/12/16 19:00 100 Mechanical Ventilator 40 11/12/16 18:00 99 11/12/16 17:04 100 40 11/12/16 16:00 40 11/12/16 16:00 90 11/12/16 16:00 99.5 90 21 113/55 (74) 100 11/12/16 14:00 88 11/12/16 12:00 88 11/12/16 12:00 98.4 88 15 110/56 (74) 100 11/12/16 12:00 40 11/12/16 11:32 100 40 11/12/16 10:00 106 11/12/16 09:30 40 11/12/16 09:27 100 40 11/12/16 08:00 96 11/12/16 08:00 50 11/12/16 08:00 100.2 96 20 112/57 (75) 99 11/12/16 07:50 99 50 11/12/16 07:50 100 Mechanical Ventilator 50 11/12/16 07:00 94 Nasal Cannula 3.00 11/12/16 06:00 108 11/12/16 04:00 98.7 110 21 103/59 (74) 96 11/12/16 04:00 110 11/12/16 02:00 100 11/12/16 00:00 111 11/12/16 00:00 98.9 111 24 124/59 (80) 98 11/11/16 22:00 106 11/11/16 20:13 99 Nasal Cannula 3.00 11/11/16 20:00 106 11/11/16 20:00 98.3 106 26 128/61 (83) 100 11/11/16 19:00 94 Nasal Cannula 3.00 11/11/16 18:19 100 Nasal Cannula 2.00 11/11/16 18:00 102 11/11/16 16:00 105 11/11/16 16:00 99.5 104 21 124/58 (80) 99 (Brennon White) Physical Examination GENERAL: Patient remains intubated. He has midazolam 4 mL/hr infusing for sedation with fentanyl 100 mcg/hr for pain control. SKIN: Warm, dry & intact w/o any evident rashes, ulcerations or lesions. HEENT: Normocephalic. Right pupil 2 mm & left pupil 2.5 mm, both nonreactive. Orally intubated. OGT. NECK: No JVD, trachea midline. CARDIOVASCULAR: S1S2 w/RRR w/o M/G/R, radial & pedal pulses 2+ bilaterally, cap refill < 2 sec, dependent edema. Monitor is sinus rhythm w/o any evident ectopy. RESPIRATORY: Slightly coarse with expiratory wheezes bilaterally, equal excursion, nonlaboured, intubated and mechanically ventilated. GASTROINTESTINAL: Abdomen soft, rounded, bowel sounds not appreciated, OGT w/ enteral feeds. MUSCULOSKELETAL: No evident deformity or clubbing. NEUROLOGICAL: Intubated & sedated w/midazolam. GCS 8T (E3 V1T M4). Eye opening to voice & noxious stimulation. Right pupil 2 mm & left pupil 2.5 mm , both nonreactive. Does not follow commands. Trace movement of LUE to localised noxious stimulation to LUE & LLE. Apparent withdrawal with LUE & LLE to central noxious stimuliation. Unable to assess sensation. 3% saline at 20 mL/hr. (Brennon White) Lab, Micro, Other Results Recent Impressions Head CT 11/14/16 0600 Signed Impressions: Service Date/Time: Monday, November 14, 2016 06:29 - CONCLUSION: 1. Evolving bifrontal contusions, subdural and subarachnoid hemorrhage. 2. No intercurrent hemorrhage or herniation. Konstantin Dash MD Chest X-Ray 11/14/16 0600 Signed Impressions: Service Date/Time: Monday, November 14, 2016 03:40 - CONCLUSION: 1. Tubes and lines, as above. 2. Mild progression of bilateral lower lung zone mixed interstitial and airspace opacities. 3. Stable small left pleural effusion. Konstantin Dash MD Chest X-Ray 11/12/16 0813 Signed Impressions: Service Date/Time: Saturday, November 12, 2016 08:15 - CONCLUSION: Right IJ catheter tip at the origin the superior vena cava. No evidence of pneumothorax. Narayan Coulter MD Abdomen X-Ray 11/12/16 0000 Signed Impressions: Service Date/Time: Saturday, November 12, 2016 08:23 - CONCLUSION: 1. Gastric tube in good position. 2. Probable right renal stones. Narayan Coulter MD Laboratory Tests Test 11/12/16 04:28 11/12/16 06:44 11/12/16 09:08 11/12/16 09:12 Sodium Level 139 MEQ/L 140 MEQ/L Serum Osmolality 296 MOSM/KG Blood Gas Puncture Site LT RADIAL RT RADIAL Blood Gas Patient Temperature 98.6 98.6 Blood Gas HCO3 25 mmol/L 24 mmol/L Blood Gas Base Excess 1.5 mmol/L 0.5 mmol/L Blood Gas Oxygen Saturation 95 % 97 % Arterial Blood pH 7.50 7.48 Arterial Blood Partial Pressure CO2 32 mmHg 32 mmHg Arterial Blood Partial Pressure O2 85 mmHg 218 mmHg Arterial Blood Oxygen Content 11.4 Vol % 11.7 Vol % Arterial Blood Carboxyhemoglobin 2.0 % 1.9 % Arterial Blood Methemoglobin 0.8 % 0.7 % Blood Gas Hemoglobin 8.4 G/DL 8.1 G/DL Oxygen Delivery Device NASAL CANNULA VENTILATOR Blood Gas Liter Flow 2 L/M Blood Gas Ventilator Setting PRVC/16/550/1.0/+5 Blood Gas Inspired Oxygen 50 % White Blood Count 14.9 TH/MM3 Red Blood Count 2.59 MIL/MM3 Hemoglobin 7.8 GM/DL Hematocrit 22.9 % Mean Corpuscular Volume 88.6 FL Mean Corpuscular Hemoglobin 30.0 PG Mean Corpuscular Hemoglobin Concent 33.9 % Red Cell Distribution Width 18.2 % Platelet Count 168 TH/MM3 Mean Platelet Volume 7.2 FL Neutrophils (%) (Auto) 29.0 % Lymphocytes (%) (Auto) 62.2 % Monocytes (%) (Auto) 8.8 % Eosinophils (%) (Auto) 0.0 % Basophils (%) (Auto) 0.0 % Neutrophils # (Auto) 4.3 TH/MM3 Lymphocytes # (Auto) 9.3 TH/MM3 Monocytes # (Auto) 1.3 TH/MM3 Eosinophils # (Auto) 0.0 TH/MM3 Basophils # (Auto) 0.0 TH/MM3 CBC Comment AUTO DIFF Differential Total Cells Counted 100 Neutrophils % (Manual) 43 % Band Neutrophils % 2 % Lymphocytes % 51 % Monocytes % 4 % Neutrophils # (Manual) 6.7 TH/MM3 Differential Comment FINAL DIFF MANUAL Smudge Cells PRESENT Platelet Estimate NORMAL Platelet Morphology Comment NORMAL Red Cell Morphology Comment NORMAL Prothrombin Time 11.7 SEC Prothromb Time International Ratio 1.1 RATIO Activated Partial Thromboplast Time 37.0 SEC Fibrinogen 432 mg/dL Blood Urea Nitrogen 24 MG/DL Creatinine 0.75 MG/DL Random Glucose 147 MG/DL Calcium Level 7.9 MG/DL Potassium Level 3.2 MEQ/L Chloride Level 107 MEQ/L Carbon Dioxide Level 24.4 MEQ/L Anion Gap 9 MEQ/L Estimat Glomerular Filtration Rate 100 ML/MIN Phosphorus Level 1.8 MG/DL Magnesium Level 2.0 MG/DL Ammonia 27 MCMOL/L B-Type Natriuretic Peptide 541 PG/ML Phenytoin (Dilantin) Level 6.6 MCG/ML Test 11/12/16 14:42 11/12/16 18:20 11/13/16 00:00 11/13/16 05:40 Sodium Level 141 MEQ/L 144 MEQ/L 145 MEQ/L 146 MEQ/L Serum Osmolality 297 MOSM/KG 305 MOSM/KG 306 MOSM/KG 309 MOSM/KG Potassium Level 3.7 MEQ/L 3.5 MEQ/L White Blood Count 10.6 TH/MM3 Red Blood Count 2.51 MIL/MM3 Hemoglobin 7.7 GM/DL Hematocrit 22.4 % Mean Corpuscular Volume 89.5 FL Mean Corpuscular Hemoglobin 30.9 PG Mean Corpuscular Hemoglobin Concent 34.5 % Red Cell Distribution Width 18.2 % Platelet Count 163 TH/MM3 Mean Platelet Volume 7.4 FL Blood Urea Nitrogen 20 MG/DL Creatinine 0.64 MG/DL Random Glucose 186 MG/DL Calcium Level 7.5 MG/DL Phosphorus Level 1.5 MG/DL Magnesium Level 1.9 MG/DL Chloride Level 114 MEQ/L Carbon Dioxide Level 25.7 MEQ/L Anion Gap 6 MEQ/L Estimat Glomerular Filtration Rate 120 ML/MIN Phenytoin (Dilantin) Level 7.5 MCG/ML Test 11/13/16 13:30 11/13/16 15:35 11/13/16 18:10 11/14/16 03:45 Sodium Level 146 MEQ/L 148 MEQ/L Serum Osmolality 310 MOSM/KG 317 MOSM/KG 316 MOSM/KG Phenytoin (Dilantin) Level 8.6 MCG/ML 8.1 MCG/ML White Blood Count 20.0 TH/MM3 Red Blood Count 3.11 MIL/MM3 Hemoglobin 9.1 GM/DL Hematocrit 28.3 % Mean Corpuscular Volume 91.1 FL Mean Corpuscular Hemoglobin 29.4 PG Mean Corpuscular Hemoglobin Concent 32.3 % Red Cell Distribution Width 18.5 % Platelet Count 213 TH/MM3 Mean Platelet Volume 7.3 FL Neutrophils (%) (Auto) 24.4 % Lymphocytes (%) (Auto) 67.0 % Monocytes (%) (Auto) 8.2 % Eosinophils (%) (Auto) 0.3 % Basophils (%) (Auto) 0.1 % Neutrophils # (Auto) 4.9 TH/MM3 Lymphocytes # (Auto) 13.4 TH/MM3 Monocytes # (Auto) 1.6 TH/MM3 Eosinophils # (Auto) 0.1 TH/MM3 Basophils # (Auto) 0.0 TH/MM3 CBC Comment AUTO DIFF Differential Total Cells Counted 100 Neutrophils % (Manual) 27 % Band Neutrophils % 2 % Lymphocytes % 67 % Monocytes % 4 % Neutrophils # (Manual) 5.8 TH/MM3 Differential Comment FINAL DIFF MANUAL Platelet Estimate NORMAL Platelet Morphology Comment NORMAL Red Cell Morphology Comment NORMAL Blood Urea Nitrogen 19 MG/DL Creatinine 0.54 MG/DL Random Glucose 200 MG/DL Total Protein 6.0 GM/DL Albumin 2.2 GM/DL Calcium Level 8.0 MG/DL Phosphorus Level 1.9 MG/DL Magnesium Level 2.0 MG/DL Alkaline Phosphatase 58 U/L Aspartate Amino Transf (AST/SGOT) 15 U/L Alanine Aminotransferase (ALT/SGPT) 12 U/L Total Bilirubin 1.2 MG/DL Potassium Level 3.9 MEQ/L Chloride Level 115 MEQ/L Carbon Dioxide Level 24.9 MEQ/L Anion Gap 8 MEQ/L Estimat Glomerular Filtration Rate 146 ML/MIN Test 11/14/16 13:00 Sodium Level 149 MEQ/L Serum Osmolality 321 MOSM/KG Phenytoin (Dilantin) Level 11.7 MCG/ML (Brennon White) Medical Decision Making Impression and Plan Impression: 1. Traumatic brain injury 2. Hypertension 3. Diabetes 4. Respiratory failure 5. Seizures Leukocytosis this morning w/o neutrophilia/bandemia. Haemoglobin improved. Sodium 148 this morning & 149 this afternoon. Patient responding to noxious stimulation with eye opening & movement of left- sided extremities. Plan: Critical care management per [facility]. Anti-epileptic medications per Neurology. Frequent neuro checks. Continue present diabetic medications with insulin sliding scale. Non-chemical DVT prophylaxis. Ulcer prophylaxis. (Brennon White) Attending Statement I have personally seen and examined the patient on the date of this note. Pertinent documentation and study results have been reviewed by the undersigned. I have personally developed the treatment plan and performed medical decision making. Agree with findings, exam, and treatment plan as noted above. I spoke with the patient's family again in the room as well as on the telephone extensively this evening. He is examined by the undersigned this evening, now off sedation since early this morning. He has minimal attempted eye opening, disconjugate gaze without attempt to focus her follow. Localizes to deep pain with the right greater than left upper extremity but not following commands. The results of 11/14/16 CT scan of the head of been discussed. The study has been reviewed by the undersigned and revealed resolving diffuse proximal contusions with relatively mild diffuse subdural hygroma or hematoma formation without significant overall mass effect. EEG results reveal moderate to severe diffuse encephalopathy, no continuing seizure activity. I advised the family that the patient's prognosis is very guarded. Due to the diffuse nature of the brain injury as well as his age and poor neurologic function, it is unlikely that he will have a good recovery. It is anticipated the tracheostomy and feeding tube placement will be necessary if the family wishes to continue full supportive care. I have answered all of their questions. (Tony Godfrey MD) Brennon White Nov 14, 2016 15:48 Tony Godfrey MD Nov 14, 2016 19:52
[2016-11-14 18:01] LABS: POTASSIUM 3.6 MEQ/L (3.5-5.1)
[2016-11-14] MEDS: SODIUM PHOSPHATE INJ 30 MMOL in SODIUM CHLOR 0.9% 250 ML INJ 240 ML IV PRN (18:44)
[2016-11-14] MEDS: TAMSULOSIN HCL 0.4 MG CAP PO SCH (21:00)
--- NOTE | 2016-11-14 21:13 | HHI.PR ---
Review/Management Diagnosis s/p closed head injury with cerebral contusion and bilateral subdural hematoma secondary SZ. Plan continue current phenytoin dose Diagnosis/Plan: Subjective Subjective Comments No acute events reported No sz Active Medications Current Medications Medications (Trade) Dose Ordered Sig/Gregg Route Start Time Stop Time Status Last Admin (Proscar) 5 mg DAILY PO 11/10/16 09:00 11/14/16 08:24 (Flomax) 0.4 mg HS PO 11/10/16 21:00 11/12/16 22:04 (Zebeta) 5 mg DAILY PO 11/10/16 09:00 11/14/16 08:24 (Detrol La) 2 mg DAILY PO 11/10/16 09:00 11/14/16 08:20 Nicardipine HCl 25 mg/Sodium Chloride 260 ml @ 52 mls/hr TITRATE PRN IV 11/09/16 23:45 (D50w (Vial) Inj) 50 ml UNSCH PRN IV 11/09/16 23:45 (Glucagon Inj) 1 mg UNSCH PRN OTHER 11/09/16 23:45 (Ativan Inj) 1 mg Q5M PRN IV 11/12/16 00:45 11/12/16 01:45 (Peridex 0.12% Liq) 15 ml BID@08,20 MT 11/12/16 08:00 11/14/16 08:16 Midazolam HCl 100 ml @ 2 mls/hr TITRATE PRN IV 11/12/16 07:15 11/13/16 08:49 Fentanyl Citrate 250 ml @ 5 mls/hr TITRATE PRN IV 11/12/16 07:15 11/13/16 23:20 (NS Flush) DAILY IVF 11/12/16 09:00 11/14/16 08:19 (NS Flush) UNSCH PRN IVF 11/12/16 08:15 (Prevacid Odt) 30 mg DAILY NG 11/12/16 09:00 11/14/16 08:20 Pharmacy Profile Note 0 ml @ 0 mls/hr UNSCH OTHER 11/12/16 08:30 Aztreonam 2000 mg/ Sodium Chloride 100 ml @ 200 mls/hr Q8H IV 11/12/16 09:00 11/14/16 15:09 (Flagyl) 500 mg Q8HR PO 11/12/16 14:00 11/14/16 13:27 (Duane Powder) 1 pack BID G-TUBE 11/12/16 09:00 11/13/16 21:45 (NovoLIN R SUPPLEMENTAL SCALE) 1 Q6HR SQ 11/12/16 12:00 11/14/16 16:57 (Colace Liq) 100 mg Q12HR PO 11/12/16 09:00 11/14/16 08:20 (Senna Liq) 8.8 mg BID NG 11/12/16 09:00 11/14/16 08:20 (NS Flush) 2 ml UNSCH PRN IV FLUSH 11/12/16 08:30 (NS Flush) 2 ml BID IV FLUSH 11/12/16 09:00 11/14/16 08:18 (Tears Naturale Opth Soln) 1 drop TID EACH EYE 11/12/16 09:00 11/14/16 16:38 (Zofran Inj) 4 mg Q6H PRN IV 11/12/16 08:30 (Duoneb Neb) 1 ampule Q6HR NEB INH 11/12/16 10:00 11/14/16 20:39 (Albuterol Neb) 2.5 mg Q2HR NEB PRN INH 11/12/16 08:30 (Dulcolax Supp) 10 mg DAILY PRN RECTAL 11/12/16 08:30 (Lactulose Liq) 30 ml DAILY PRN PO 11/12/16 08:30 Potassium Chloride 100 ml @ 50 mls/hr Q2H PRN IV-CENTRAL 11/12/16 08:30 11/13/16 08:49 Potassium Chloride 100 ml @ 50 mls/hr Q2H PRN IV 11/12/16 08:30 (K-Lyte Cl Eff) 50 meq UNSCH PRN PO 11/12/16 08:30 Potassium Chloride 100 ml @ 25 mls/hr UNSCH PRN IV-CENTRAL 11/12/16 08:30 Potassium Chloride 100 ml @ 50 mls/hr Q2H PRN IV 11/12/16 08:30 Magnesium Sulfate 4 gm/Sodium Chloride 100 ml @ 50 mls/hr UNSCH PRN IV 11/12/16 08:30 (Mag-Ox) 800 mg UNSCH PRN PO 11/12/16 08:30 Magnesium Sulfate 2 gm/Sodium Chloride 100 ml @ 50 mls/hr UNSCH PRN IV 11/12/16 08:30 (K-Phos) 2,000 mg Q4H PRN PO 11/12/16 08:30 11/13/16 10:35 Sodium Phosphate 30 mmol/Sodium Chloride 250 ml @ 42 mls/hr UNSCH PRN IV 11/12/16 08:30 11/14/16 18:44 (K-Phos) 2,000 mg UNSCH PRN PO/TUBE 11/12/16 08:30 Potassium Phosphate 30 mmol/ Sodium Chloride 260 ml @ 42 mls/hr UNSCH PRN IV 11/12/16 08:30 11/14/16 06:15 (Tylenol 650 Mg/ 20 ml Liq) 650 mg Q6H PRN NG 11/12/16 08:45 11/14/16 18:58 Vancomycin HCl 2000 mg/Sodium Chloride 520 ml @ 250 mls/hr Q24H IV 11/12/16 11:00 11/14/16 10:23 Sodium Chloride 500 ml @ 20 mls/hr Q24H IV 11/12/16 09:00 11/14/16 10:24 Miscellaneous Information SPECIFIC LAB TO BE DRAWN:VANCOMYCIN TROUGH DATE TO... ONCE ONCE .XX 11/15/16 10:45 11/15/16 10:46 Levetriacetam 100 ml @ 400 mls/hr Q8HR IV 11/12/16 22:00 11/14/16 13:27 (Cerebyx Inj) 100 mgpe Q6HR IV 11/12/16 18:00 11/14/16 16:57 (Miralax) 17 gm BID OG-TUBE 11/13/16 21:00 11/14/16 08:20 (Lactulose Liq) 30 ml DAILY PO 11/14/16 09:00 11/14/16 08:20 (Glycerin Adult Supp) 2 gm BID PRN RECTAL 11/13/16 15:00 (Apresoline Inj) 20 mg Q4H PRN IV PUSH 11/14/16 02:15 11/14/16 03:07 (Lopressor Inj) 5 mg Q6H PRN IV PUSH 11/14/16 03:30 11/14/16 03:25 Allergies Allergies Coded Allergies Penicillins (Verified Allergy, Unknown, 11/09/16) Exam I&O / VS 11/14/16 11/14/16 11/15/16 15:00 23:00 07:00 Intake Total 1480 ml 3140 ml Output Total 1700 ml Balance 1480 ml 1440 ml IV Total 1480 ml 2216 ml Tube Feeding 424 ml Other 500 ml Output Urine Total 1700 ml # Bowel Movements 2 Vital Signs Date Time Temp Pulse Resp B/P (MAP) Pulse Ox O2 Delivery O2 Flow Rate FiO2 11/14/16 20:39 98 40 11/14/16 20:00 40 11/14/16 19:00 100 Mechanical Ventilator 11/14/16 18:54 101.6 11/14/16 18:00 100 11/14/16 16:00 101 11/14/16 16:00 40 11/14/16 16:00 100.1 101 19 151/65 (93) 100 11/14/16 15:17 100 40 11/14/16 14:00 93 11/14/16 13:35 98.8 11/14/16 12:17 100.0 11/14/16 12:00 40 11/14/16 12:00 106 11/14/16 12:00 102.1 106 18 114/57 (76) 100 11/14/16 11:28 100 40 11/14/16 10:00 106 11/14/16 08:34 40 11/14/16 08:34 100 40 11/14/16 08:00 100 11/14/16 08:00 101.7 112 14 113/100 (104) 100 11/14/16 08:00 113 11/14/16 07:00 100 Mechanical Ventilator 11/14/16 06:15 100 100 11/14/16 06:00 112 11/14/16 04:08 100 40 11/14/16 04:00 102.1 128 14 124/66 (85) 95 11/14/16 04:00 40 11/14/16 04:00 125 11/14/16 02:00 112 11/14/16 01:15 100 40 11/14/16 00:00 98.1 100 14 140/67 (91) 100 11/14/16 00:00 100 11/14/16 00:00 40 11/13/16 22:18 100 40 11/13/16 22:00 94 Exam Comments on ventilator. nonresponsive.PERRL MOTOR--no focal deficit. No myoclonus or clinical Sz seen at this time Objective Micro and Labs Laboratory Tests Test 11/14/16 03:45 11/14/16 13:00 11/14/16 17:25 White Blood Count 20.0 Red Blood Count 3.11 Hemoglobin 9.1 Hematocrit 28.3 Mean Corpuscular Volume 91.1 Mean Corpuscular Hemoglobin 29.4 Mean Corpuscular Hemoglobin Concent 32.3 Red Cell Distribution Width 18.5 Platelet Count 213 Mean Platelet Volume 7.3 Neutrophils (%) (Auto) 24.4 Lymphocytes (%) (Auto) 67.0 Monocytes (%) (Auto) 8.2 Eosinophils (%) (Auto) 0.3 Basophils (%) (Auto) 0.1 Neutrophils # (Auto) 4.9 Lymphocytes # (Auto) 13.4 Monocytes # (Auto) 1.6 Eosinophils # (Auto) 0.1 Basophils # (Auto) 0.0 CBC Comment AUTO DIFF Differential Total Cells Counted 100 Neutrophils % (Manual) 27 Band Neutrophils % 2 Lymphocytes % 67 Monocytes % 4 Neutrophils # (Manual) 5.8 Differential Comment FINAL DIFF MANUAL Platelet Estimate NORMAL Platelet Morphology Comment NORMAL Red Cell Morphology Comment NORMAL Blood Urea Nitrogen 19 Creatinine 0.54 Random Glucose 200 Total Protein 6.0 Albumin 2.2 Calcium Level 8.0 Phosphorus Level 1.9 2.3 Magnesium Level 2.0 Alkaline Phosphatase 58 Aspartate Amino Transf (AST/SGOT) 15 Alanine Aminotransferase (ALT/SGPT) 12 Total Bilirubin 1.2 Sodium Level 148 149 Potassium Level 3.9 3.6 Chloride Level 115 Carbon Dioxide Level 24.9 Anion Gap 8 Estimat Glomerular Filtration Rate 146 Serum Osmolality 316 321 319 Phenytoin (Dilantin) Level 11.7 Date/Time Source Procedure Growth Status 11/11/16 14:40 Blood Peripheral Aerobic Blood Culture - Preliminary NO GROWTH IN 3 DAYS Resulted 11/11/16 14:40 Blood Peripheral Anaerobic Blood Culture - Preliminary NO GROWTH IN 3 DAYS Resulted 11/12/16 22:25 Nasal Aspirate Influenza Types A,B Antigen (MEENU) - Final NEGATIVE FOR FLU A AND B ANTIGEN.... Complete Diagnostic Tests EEG---no epileptiform discharges, improved. Omer Nguyen PhD Nov 14, 2016 21:13
[2016-11-15] VITALS (15 sets, daily range): BP systolic 126–157; BP diastolic 58–86; PULSE 92–108; RESP 14–28; TEMP 100.5–102.7; O2SAT 100
[2016-11-15] MEDS: FOSPHENYTOIN SODIUM 100 MG PE/2 ML VIAL IV SCH ×4 (00:19→19:24)
[2016-11-15] MEDS: AZTREONAM INJ 2,000 MG in SODIUM CHLORIDE 0.9% INJ 100 ML IV SCH ×2 (00:19→10:09)
[2016-11-15] MEDS: INSULIN NovoLIN REGULAR SUPPLEMENTAL SCALE SQ SCH ×4 (00:47→18:00)
[2016-11-15] MEDS: ACETAMINOPHEN 650 MG/20.3 ML UDC NG PRN (02:10)
[2016-11-15] MEDS: RESP: ALBUTEROL 2.5 MG/IPRATROPIUM 0.5 MG NEB (SCH) INH ×4 (03:45→20:08)
[2016-11-15 05:42] LABS: AUTOMATED NEUTROPHIL # 4.8 TH/MM3 (1.8-7.7); BASOPHIL % 0.2 % (0.0-2.0); EOSINOPHIL % 0.2 % (0.0-4.0); HEMATOCRIT 26.1 % (39.0-51.0); LYMPH % 63.3 % (9.0-44.0); LYMPHOCYTE # 10.5 TH/MM3 (1.0-4.8); MEAN CELL VOLUME 91.2 FL (80.0-100.0); MEAN CORPUSCULAR HEMOGLOBIN 30.4 PG (27.0-34.0); MEAN CORPUSCULAR HGB CONC 33.3 % (32.0-36.0); MONO % 7.1 % (0.0-8.0); NEUT % 29.2 % (16.0-70.0); PLATELET COUNT 185 TH/MM3 (150-450); RED BLOOD COUNT 2.86 MIL/MM3 (4.50-5.90); RED CELL DISTRIBUTION WIDTH 17.8 % (11.6-17.2); WHITE BLOOD COUNT 16.6 TH/MM3 (4.0-11.0)
[2016-11-15 05:54] LABS: HEMO FLAGS AUTO DIFF
[2016-11-15] MEDS: metroNIDAZOLE 500 MG TAB PO SCH (06:26)
[2016-11-15] MEDS: levETIRAcetam 1000 MG INJ 100 ML IV SCH ×3 (06:26→21:00)
[2016-11-15] MEDS: 3% SALINE INJ 500 ML IV SCH (06:34)
[2016-11-15] MEDS: CHLORHEXIDINE 0.12% (ORAL KIT) 15 ML CUP MT SCH ×2 (08:00→20:00)
[2016-11-15 08:49] LABS: NEUTROPHIL # MANUAL DIFF 5.1 TH/MM3 (1.8-7.7); POLYS (SEG NEUTROPHILS) 31 % (16-70); WBC DIFF SAMPLE 100
[2016-11-15 08:50] LABS: ACANTHOCYTES 1+ (NORMAL); OVALOCYTES 1+ (NORMAL); PLATELET ESTIMATE SMEAR NORMAL (NORMAL); PLATELET MORPHOLOGY NORMAL (NORMAL); SCAN/DIFF FINAL DIFF MANUAL; SMUDGE CELLS PRESENT PRESENT
[2016-11-15] MEDS: POLYETHYLENE GLYCOL 17 GM PKG OG-TUBE SCH ×2 (09:00→20:59)
[2016-11-15] MEDS: DOCUSATE SODIUM 100 MG/10 ML UDC PO SCH ×2 (09:00→20:59)
[2016-11-15] MEDS: SODIUM CHLORIDE 0.9% FLUSH 10 ML FLUSH IVF SCH (09:00)
[2016-11-15] MEDS: LACTULOSE SYRUP 20 GM/30 ML CUP PO SCH (09:00)
[2016-11-15] MEDS: FINASTERIDE 5 MG TAB PO SCH (09:00)
[2016-11-15] MEDS: ARTIFICIAL TEARS OPTH SOLN 15 ML BTL EACH EYE SCH ×3 (09:00→18:00)
[2016-11-15] MEDS: SENNOSIDES SYRUP 8.8 MG/5 ML CUP NG SCH ×2 (09:00→20:59)
[2016-11-15] MEDS: TOLTERODINE TARTRATE 2 MG CAP LA PO SCH (09:00)
[2016-11-15] MEDS: LANSOPRAZOLE SOLUTAB 30 MG TAB NG SCH (10:09)
[2016-11-15] MEDS: SODIUM CHLORIDE 0.9% FLUSH 10 ML FLUSH IV FLUSH SCH ×2 (10:11→21:00)
[2016-11-15] MEDS: BISOPROLOL FUMARATE 5 MG TAB PO SCH (10:16)
[2016-11-15] MEDS ORDERED: PHARMACY ORDERED LAB ONE (10:45)
--- NOTE | 2016-11-15 10:49 | HHI.CCPN ---
Subjective Remarks/Hospital Course 80 y/o man fell backwards two days ago and hit the back of his head quite hard. LOC and vomiting followed by general lethargy, but conversant and responsive. I was asked to see him by nurse today for lack of responsiveness about 1100 hours. Unresponsive now and morning head CT demonstrates increased edema surrounding intraparenchymal hemorrhages, unchanged subdural collections. Stat EEG revealed generalized seizure activity. Discussed with Neurosurgery Service and AED started. Patient protects airway well, nonconvulsive. 11/12: Patient unresponsive and looking towards left. On fosphenytoin 100 mg IV every 8 hours and levetiracetam 1000 mg IV twice a day. Will need intubation along with central line placed for 3% hypertonic saline Subjective 11/13: Intubated yesterday severity ongoing seizure activity. EEG revealed cessation of seizure activity with lorazepam injection.. Tolerating tube feeding. No bowel movement. Afebrile. 11/14: Gas exchange acceptable. CT head worrisome. CXR with accumulating effusions. Daughter at bedside. 11/15: Severe neurological injury following backward fall. Medical therapy is maximized regarding prevention of cerebral edema and maintenance of cerebral perfusion. Objective Vital Signs Date Time Temp Pulse Resp B/P (MAP) Pulse Ox O2 Delivery O2 Flow Rate FiO2 11/15/16 08:34 40 11/15/16 08:34 100 11/15/16 06:00 98 11/15/16 04:00 100.5 18 129/65 (86) 11/14/16 19:00 Mechanical Ventilator 11/12/16 07:00 3.00 Intake and Output 11/15/16 11/15/16 11/15/16 07:59 15:59 23:59 Intake Total 944 ml Output Total 1500 ml Balance -556 ml Result Diagram: 11/15/16 0506 11/15/16 0506 Other Results Microbiology Date/Time Source Procedure Growth Status 11/12/16 22:25 Nasal Aspirate Influenza Types A,B Antigen (MEENU) - Final NEGATIVE FOR FLU A AND B ANTIGEN.... Complete 11/12/16 22:20 Sputum Endotracheal Gram Stain - Final Complete 11/12/16 22:20 Sputum Endotracheal Sputum Culture - Final HEAVY GROWTH NORMAL RESPIRATORY ITZEL Complete Imaging Last Impressions Chest X-Ray 11/12/16 0813 Signed Impressions: Service Date/Time: WedNovember 12, 2016 08:15 - CONCLUSION: Right IJ catheter tip at the origin the superior vena cava. No evidence of pneumothorax. Narayan Coulter MD Abdomen X-Ray 11/12/16 0000 Signed Impressions: Service Date/Time: Saturday, November 12, 2016 08:23 - CONCLUSION: 1. Gastric tube in good position. 2. Probable right renal stones. Narayan Coulter MD Head CT 11/11/16 0000 Signed Impressions: Service Date/Time: Friday, November 11, 2016 09:44 - CONCLUSION: 1. Stable multiple intercranial contusions Blaine Shore MD Cervical Spine CT 11/09/161950 Signed Impressions: Service Date/Time: Wednesday, November 09, 2016 20:14 - CONCLUSION: Negative trauma CT. Cj Isidro MD Objective Remarks Gen: 80-year-old male, currently resting in bed, intubated Neck: Orally intubated. No thyromegaly.. Right IJ clean dry and intact Lungs: No wheezes, no crackles. Good air movement. Heart: RRR. S1S2, no S4. Without murmur, rubs Abdomen: Soft, nondistended, active bowel sounds are appreciated. No guarding, no distention Extremities: Warm, well perfused. Trace edema feet. Neuro: Withdraws to pain bilaterally. Does not open eyes, focus or track. Date of Insertion: Nov 12, 2016 Line: Central Venous Catheter Side: Right Location: Internal, Jugular A/P Assessment and Plan Neuro/Psych: Closed head injury - Traumatic Bilateral large intra-parenchymal hemorrhages/right temporal/parietal subdural hematoma and bifrontal contusions Nonconvulsive seizures CT brain 11/11 revealed bi frontal contusions, right temporal/parietal subdural hematoma around 8 mm in subarachnoid hemorrhage EEG 11/11 revealed mild to moderate encephalopathy. Right frontal/central generalized slowing with intermittent sharps waves Repeat EEG 11/12 revealed 2 clinical seizure activities that cessation with 2 mg Ativan IV 1. Repeat EEG today pending Currently on fosphenytoin 100 mg IV every 6 hours. A.m. level pending. Along with levetiracetam 1000 mg IV twice a day. Currently on hydrocodone/acetaminophen 10/325 one to 2 tablets every 4 hours when necessary pain Currently on 3% saline at 20 cc an hour. Serial sodiums Every 6 hours sodiums. Every 6 hours serum OSM. Goal maintain sodium currently 145 - 155 . Goal of serum osm less than 300-320 Neurosurgery/Dr. Godfrey follows Repeat CT head ordered for today -> edema CV: Atrial fibrillation Hypertension Currently normal saline at 84 cc an hour Currently on bisoprolol 5 mill grams by mouth daily/home medication with holding parameters for heart rate and blood pressure Not requiring vasopressors and/or antihypertensives. Goal keep systolic blood pressure less than 150 Resp: Acute respiratory insufficiency secondary to altered mental status Will likely require intubation for airway protection [facility] 16/around 550/03/13/49 Ventilator bundle Albuterol/ipratropium aerosols every 6 hours with albuterol aerosols every 2 hours when necessary breakthrough dyspnea Spontaneous breathing trials when clinically indicated Follow post intubation x-ray and ABG GI: Continue vital 1.5 goal 65 cc daily with benefit protein Lansoprazole 30 mg by tube for GI prophylaxis Docusate sodium 100 mg twice a day/senna 8.6 mg twice a day for bowel regimen : BPH Maintain Noriega Currently on tamsulosin 0.4 mg by mouth daily and tolterodine 2 mg by mouth daily - hospital substitution for finasteride 5 mg by mouth daily Endo: Diabetes mellitus - hemoglobin A1c 6.0 Currently on Novulin R sliding scale insulin every 6 hours to maintain euglycemia Holding glimepiride 5 mg by mouth daily. Renal: Creatinine currently within normal limits Monitor urine output Accurate I's and O's Heme: Leukocytosis Normocytic anemia Coags within normal limits. A.m. laboratories currently pending. ID: Previously on levofloxacin 500 mg IV daily D/C vancomycin, aztreonam and metronidazole day #4 Pertinent cultures 11/11 - blood cultures 2 - no growth FEN: Hypophosphatemia MSK: Physical therapy evaluate and treat Access Left IJ CVL day #4 placed 11/12/2016 Prophylaxis - GI - lanosprazole DVT - SCD/pharmacological prophylaxis when okay with neurosurgery Overall impression: Critically ill and deteriorating pulmonary status in wake of severe head injury. Unable to wean ventilator. Critical care 39 mins Dev Loaiza MD Nov 15, 2016 10:49
--- NOTE | 2016-11-15 11:16 | HHI.NSPN ---
([place] MACIAS) History Chief Complaint: Unable to obtain due to patient's mental status. (CindyBrennon MACIAS) Interval History 11/09: 80-year-old male who according to his family was going up a step into the house with his cane when he fell backwards, striking the back of his head. He was reportedly unconscious for 10-15 minutes. He then had some shaking in the extremities as he was waking up. He has been somewhat sleepy and a little confused since he woke up at the patient's family states that he is conversing reasonably well with them. He normally is fairly independent, ambulating with a cane and is usually mentally alert with only mild memory loss. Positive emesis reported. Patient has no complaint of headache or neck pain. No complaint of low back or joint pain. 11/10: nursing reports agitated overnight, currently sleeping. f/u CT Head completed, moves all four extremities. son translated - oriented to name and place only. 11/11: Notified by PARVIN Stoner, that Nursing had notified her that the patient's mental status was worse this morning and that she had ordered a stat CT brain. When seen this morning the patient is obtunded and not answering to verbal stimuli. Nursing reports that CT had called and was sending someone up to transport the patient to the scanner. She stated that the patient did receive morphine and hydrocodone during the night for pain because he was agitated. 11/12: The patient has been intubated this morning due to persistent decreased mental status. Possibly a few more episodes of seizure activity reported last evening. He is continuing on Dilantin and Keppra for seizures. 11/13: The patient still is intubated, mechanically ventilated and sedated with midazolam. He does not respond to noxious stimulation. The EEG done yesterday morning did demonstrate seizure activity. Neurology evaluated the patient yesterday and adjusted his anti-epileptic medications. An EEG was done this morning prior to the patient being seen. 11/14: The patient remains intubated. A midazolam drip is still infusing as is a fentanyl drip. A repeat Ct brain this morning demonstrated evolving contusions and haemorrhages. 11/15: The patient is intubated without any sedation. The midazolam and fentanyl infusions were discontinued yesterday. A 3% saline drip continues to infuse. He did have a slight twitching of the eyelids when his name was called but no eye opening. (Brennon White) System Review Comments Unable to obtain due to patient's mental status. (Brennon White) Exam Results 11/13/16 11/13/16 11/14/16 11/14/16 11/15/16 11/15/16 05:59 17:59 05:59 17:59 05:59 17:59 Intake Total 880 ml 2253 ml 655 ml 2216 ml 3040 ml 944 ml Output Total 450 ml 1150.0 ml 1500.0 ml 1850 ml 1700 ml 1500 ml Balance 430 ml 1103.0 ml -845.0 ml 366 ml 1340 ml -556 ml IV Total 811 ml 1832 ml 50 ml 1580 ml 2116 ml 497 ml Tube Feeding 69 ml 301 ml 405 ml 536 ml 424 ml 447 ml Tube Irrigant 120 ml Other 200 ml 100 ml 500 ml Output Urine Total 450 ml 1150 ml 1500 ml 1850 ml 1700 ml 1500 ml Tube Feeding Residual Discard 0 ml 0 ml # Bowel Movements 0 0 0 0 2 0 Vital Signs Date Time Temp Pulse Resp B/P (MAP) Pulse Ox O2 Delivery O2 Flow Rate FiO2 11/15/16 08:34 40 11/15/16 08:34 100 40 11/15/16 06:00 98 11/15/16 04:12 100 40 11/15/16 04:00 100.5 92 18 129/65 (86) 100 11/15/16 04:00 92 11/15/16 04:00 40 11/15/16 02:00 102 11/15/16 00:15 100 40 11/15/16 00:00 40 11/15/16 00:00 102 11/15/16 00:00 101.3 102 20 135/68 (90) 100 11/14/16 22:42 100 40 11/14/16 22:00 100 11/14/16 20:39 98 40 11/14/16 20:00 98.5 98 20 122/61 (81) 99 11/14/16 20:00 98 11/14/16 20:00 40 11/14/16 19:00 100 Mechanical Ventilator 11/14/16 18:54 101.6 11/14/16 18:00 100 11/14/16 16:00 101 11/14/16 16:00 40 11/14/16 16:00 100.1 101 19 151/65 (93) 100 11/14/16 15:17 100 40 11/14/16 14:00 93 11/14/16 13:35 98.8 11/14/16 12:17 100.0 11/14/16 12:00 40 11/14/16 12:00 106 11/14/16 12:00 102.1 106 18 114/57 (76) 100 11/14/16 11:28 100 40 11/14/16 10:00 106 11/14/16 08:34 40 11/14/16 08:34 100 40 11/14/16 08:00 100 11/14/16 08:00 101.7 112 14 113/100 (104) 100 11/14/16 08:00 113 11/14/16 07:00 100 Mechanical Ventilator 11/14/16 06:15 100 100 11/14/16 06:00 112 11/14/16 04:08 100 40 11/14/16 04:00 102.1 128 14 124/66 (85) 95 11/14/16 04:00 40 11/14/16 04:00 125 11/14/16 02:00 112 11/14/16 01:15 100 40 11/14/16 00:00 98.1 100 14 140/67 (91) 100 11/14/16 00:00 100 11/14/16 00:00 40 11/13/16 22:18 100 40 11/13/16 22:00 94 11/13/16 20:33 99 40 11/13/16 20:00 40 11/13/16 20:00 98.4 82 14 98/55 (69) 98 11/13/16 20:00 82 11/13/16 19:00 100 Mechanical Ventilator 40 11/13/16 18:00 90 11/13/16 18:00 100.2 11/13/16 16:00 40 11/13/16 16:00 101.4 101 15 114/55 (74) 100 11/13/16 16:00 104 11/13/16 15:41 100 40 11/13/16 14:00 106 11/13/16 13:38 100 40 11/13/16 12:00 101 11/13/16 12:00 99.8 101 17 123/64 (83) 100 11/13/16 12:00 40 11/13/16 10:06 100 40 11/13/16 10:00 98 11/13/16 08:02 100 40 11/13/16 08:00 107 11/13/16 08:00 99.2 107 15 119/61 (80) 100 11/13/16 08:00 40 11/13/16 07:00 100 Mechanical Ventilator 40 11/13/16 06:00 98 11/13/16 04:16 100 40 11/13/16 04:00 98.4 104 16 132/62 (85) 100 11/13/16 04:00 104 11/13/16 04:00 40 11/13/16 02:00 100 11/13/16 01:47 100 40 11/13/16 00:00 94 11/13/16 00:00 40 11/13/16 00:00 98.3 94 17 112/57 (75) 100 11/12/16 22:54 100 40 11/12/16 22:00 98 11/12/16 20:11 100 40 11/12/16 20:00 40 11/12/16 20:00 100 11/12/16 20:00 99.8 100 22 131/62 (85) 100 11/12/16 19:00 100 Mechanical Ventilator 40 11/12/16 18:00 99 11/12/16 17:04 100 40 11/12/16 16:00 40 11/12/16 16:00 90 11/12/16 16:00 99.5 90 21 113/55 (74) 100 11/12/16 14:00 88 11/12/16 12:00 88 11/12/16 12:00 98.4 88 15 110/56 (74) 100 11/12/16 12:00 40 11/12/16 11:32 100 40 (Brennon White) Physical Examination GENERAL: Patient is intubated w/o any sedation. SKIN: Cool, dry & intact w/o any evident rashes, ulcerations or lesions. HEENT: Normocephalic. Pupils appear essentially equal but nonreactive. Orally intubated. OGT. NECK: No JVD, trachea midline. CARDIOVASCULAR: S1S2 w/RRR w/o M/G/R, radial & pedal pulses 2+ bilaterally, cap refill < 2 sec, dependent edema. Monitor is sinus rhythm w/o any evident ectopy. RESPIRATORY: Essentially clear bilaterally, equal excursion, nonlaboured, intubated and mechanically ventilated. GASTROINTESTINAL: Abdomen soft, rounded, bowel sounds not appreciated, OGT w/ enteral feeds. MUSCULOSKELETAL: No evident deformity or clubbing. NEUROLOGICAL: Intubated w/o any sedation. GCS 6T (E1 V1T M4). No eye opening to voice & noxious stimulation. He did have a slight twitching of the eyelids when his name was called. Pupils appear essentially equal, both nonreactive. Does not follow commands. No response to localised noxious stimulation but slight withdrawal with LUE to central noxious stimuliation. Unable to assess sensation. 3% saline at 20 mL/hr. (Brennon White) Lab, Micro, Other Results Recent Impressions Head CT 11/14/16599 Signed Impressions: Service Date/Time: Monday, November 14, 2016 06:29 - CONCLUSION: 1. Evolving bifrontal contusions, subdural and subarachnoid hemorrhage. 2. No intercurrent hemorrhage or herniation. Konstantin Dash MD Chest X-Ray 11/14/16 06 Signed Impressions: Service Date/Time: Monday, November 14, 2016 03:40 - CONCLUSION: 1. Tubes and lines, as above. 2. Mild progression of bilateral lower lung zone mixed interstitial and airspace opacities. 3. Stable small left pleural effusion. Konstantin Dash MD Laboratory Tests Test 11/12/16 14:42 11/12/16 18:20 11/13/16 00:00 11/13/16 05:40 Sodium Level 141 MEQ/L 144 MEQ/L 145 MEQ/L 146 MEQ/L Serum Osmolality 297 MOSM/KG 305 MOSM/KG 306 MOSM/KG 309 MOSM/KG Potassium Level 3.7 MEQ/L 3.5 MEQ/L White Blood Count 10.6 TH/MM3 Red Blood Count 2.51 MIL/MM3 Hemoglobin 7.7 GM/DL Hematocrit 22.4 % Mean Corpuscular Volume 89.5 FL Mean Corpuscular Hemoglobin 30.9 PG Mean Corpuscular Hemoglobin Concent 34.5 % Red Cell Distribution Width 18.2 % Platelet Count 163 TH/MM3 Mean Platelet Volume 7.4 FL Blood Urea Nitrogen 20 MG/DL Creatinine 0.64 MG/DL Random Glucose 186 MG/DL Calcium Level 7.5 MG/DL Phosphorus Level 1.5 MG/DL Magnesium Level 1.9 MG/DL Chloride Level 114 MEQ/L Carbon Dioxide Level 25.7 MEQ/L Anion Gap 6 MEQ/L Estimat Glomerular Filtration Rate 120 ML/MIN Phenytoin (Dilantin) Level 7.5 MCG/ML Test 11/13/16 13:30 11/13/16 15:35 11/13/16 18:10 11/14/16 03:45 Sodium Level 146 MEQ/L 148 MEQ/L Serum Osmolality 310 MOSM/KG 317 MOSM/KG 316 MOSM/KG Phenytoin (Dilantin) Level 8.6 MCG/ML 8.1 MCG/ML White Blood Count 20.0 TH/MM3 Red Blood Count 3.11 MIL/MM3 Hemoglobin 9.1 GM/DL Hematocrit 28.3 % Mean Corpuscular Volume 91.1 FL Mean Corpuscular Hemoglobin 29.4 PG Mean Corpuscular Hemoglobin Concent 32.3 % Red Cell Distribution Width 18.5 % Platelet Count 213 TH/MM3 Mean Platelet Volume 7.3 FL Neutrophils (%) (Auto) 24.4 % Lymphocytes (%) (Auto) 67.0 % Monocytes (%) (Auto) 8.2 % Eosinophils (%) (Auto) 0.3 % Basophils (%) (Auto) 0.1 % Neutrophils # (Auto) 4.9 TH/MM3 Lymphocytes # (Auto) 13.4 TH/MM3 Monocytes # (Auto) 1.6 TH/MM3 Eosinophils # (Auto) 0.1 TH/MM3 Basophils # (Auto) 0.0 TH/MM3 CBC Comment AUTO DIFF Differential Total Cells Counted 100 Neutrophils % (Manual) 27 % Band Neutrophils % 2 % Lymphocytes % 67 % Monocytes % 4 % Neutrophils # (Manual) 5.8 TH/MM3 Differential Comment FINAL DIFF MANUAL Platelet Estimate NORMAL Platelet Morphology Comment NORMAL Red Cell Morphology Comment NORMAL Blood Urea Nitrogen 19 MG/DL Creatinine 0.54 MG/DL Random Glucose 200 MG/DL Total Protein 6.0 GM/DL Albumin 2.2 GM/DL Calcium Level 8.0 MG/DL Phosphorus Level 1.9 MG/DL Magnesium Level 2.0 MG/DL Alkaline Phosphatase 58 U/L Aspartate Amino Transf (AST/SGOT) 15 U/L Alanine Aminotransferase (ALT/SGPT) 12 U/L Total Bilirubin 1.2 MG/DL Potassium Level 3.9 MEQ/L Chloride Level 115 MEQ/L Carbon Dioxide Level 24.9 MEQ/L Anion Gap 8 MEQ/L Estimat Glomerular Filtration Rate 146 ML/MIN Test 11/14/16 13:00 11/14/16 17:25 11/15/16 00:39 11/15/16 05:06 Sodium Level 149 MEQ/L 150 MEQ/L 148 MEQ/L Serum Osmolality 321 MOSM/KG 319 MOSM/KG 321 MOSM/KG 322 MOSM/KG Phenytoin (Dilantin) Level 11.7 MCG/ML Potassium Level 3.6 MEQ/L Phosphorus Level 2.3 MG/DL White Blood Count 16.6 TH/MM3 Red Blood Count 2.86 MIL/MM3 Hemoglobin 8.7 GM/DL Hematocrit 26.1 % Mean Corpuscular Volume 91.2 FL Mean Corpuscular Hemoglobin 30.4 PG Mean Corpuscular Hemoglobin Concent 33.3 % Red Cell Distribution Width 17.8 % Platelet Count 185 TH/MM3 Mean Platelet Volume 8.1 FL Neutrophils (%) (Auto) 29.2 % Lymphocytes (%) (Auto) 63.3 % Monocytes (%) (Auto) 7.1 % Eosinophils (%) (Auto) 0.2 % Basophils (%) (Auto) 0.2 % Neutrophils # (Auto) 4.8 TH/MM3 Lymphocytes # (Auto) 10.5 TH/MM3 Monocytes # (Auto) 1.2 TH/MM3 Eosinophils # (Auto) 0.0 TH/MM3 Basophils # (Auto) 0.0 TH/MM3 CBC Comment AUTO DIFF Differential Total Cells Counted 100 Neutrophils % (Manual) 31 % Lymphocytes % 67 % Monocytes % 2 % Neutrophils # (Manual) 5.1 TH/MM3 Differential Comment FINAL DIFF MANUAL Smudge Cells PRESENT Platelet Estimate NORMAL Platelet Morphology Comment NORMAL Ovalocytes 1+ Acanthocytes 1+ Test 11/15/16 10:45 (Brennon White) Medical Decision Making Impression and Plan Impression: 1. Traumatic brain injury 2. Hypertension 3. Diabetes 4. Respiratory failure 5. Seizures Leukocytosis w/some improvement. Haemoglobin essentially stable. Sodium 148 this morning. Patient with poor neurological examination, minimal response to central noxious stimulation. Plan: Discussed with patient's daughter. Plan of care discussed with Nursing. Critical care management per [employer]. Anti-epileptic medications per Neurology. Frequent neuro checks. Continue present diabetic medications with insulin sliding scale. Non-chemical DVT prophylaxis. Ulcer prophylaxis. (Brennon White) Attending Statement The exam, history, and the medical decision-making described in the above note were completed with the assistance of the mid-level provider. I reviewed and agree with the findings presented. I attest that I had a [id number] encounter with the patient on the same day, and personally performed and documented my assessment and findings in the medical record. On my examination of 11/15/16 the patient has at least moderate eye opening when stimulated. He seems to track a little to the left when stimulated, with conjugate gaze. Pupils are 3 mm reactive to 2 mm. Has brisk flexion with localization in response to deep pain over the chest and the left greater than right upper extremity. Mild withdrawal of the feet with mild deep pain stimulation. Not following commands I spoke at length with the patient's daughter today in the intensive surgical care unit. The CT scan head from 11/14/16 images were reviewed with her. Patient is a little more responsive and alert today. Issues regarding ventilator weaning, possible tracheostomy and PEG tube were discussed. She would like to wait as long as possible to place a tracheostomy, to see if the patient will improve enough to be extubated. (Tony Godfrey MD) Brennon White Nov 15, 2016 11:16 Tony Godfrey MD Nov 15, 2016 15:21
--- NOTE | 2016-11-15 14:22 | HHI.PR ---
Review/Management Diagnosis s/p closed head injury with cerebral contusion and bilateral subdural hematoma secondary SZ. Plan continue current phenytoin dose Diagnosis/Plan: Subjective Subjective Comments No acute events reported No sz noted. Active Medications Current Medications Medications (Trade) Dose Ordered Sig/Gregg Route Start Time Stop Time Status Last Admin (Proscar) 5 mg DAILY PO 11/10/16 09:00 11/14/16 08:24 (Flomax) 0.4 mg HS PO 11/10/16 21:00 11/12/16 22:04 (Zebeta) 5 mg DAILY PO 11/10/16 09:00 11/15/16 10:16 (Detrol La) 2 mg DAILY PO 11/10/16 09:00 11/14/16 08:20 Nicardipine HCl 25 mg/Sodium Chloride 260 ml @ 52 mls/hr TITRATE PRN IV 11/09/16 23:45 (D50w (Vial) Inj) 50 ml UNSCH PRN IV 11/09/16 23:45 (Glucagon Inj) 1 mg UNSCH PRN OTHER 11/09/16 23:45 (Ativan Inj) 1 mg Q5M PRN IV 11/12/16 00:45 11/12/16 01:45 (Peridex 0.12% Liq) 15 ml BID@08,20 MT 11/12/16 08:00 11/15/16 08:00 Midazolam HCl 100 ml @ 2 mls/hr TITRATE PRN IV 11/12/16 07:15 11/13/16 08:49 Fentanyl Citrate 250 ml @ 5 mls/hr TITRATE PRN IV 11/12/16 07:15 11/13/16 23:20 (NS Flush) DAILY IVF 11/12/16 09:00 11/14/16 08:19 (NS Flush) UNSCH PRN IVF 11/12/16 08:15 (Prevacid Odt) 30 mg DAILY NG 11/12/16 09:00 11/15/16 10:09 (NovoLIN R SUPPLEMENTAL SCALE) 1 Q6HR SQ 11/12/16 12:00 11/15/16 12:00 (Colace Liq) 100 mg Q12HR PO 11/12/16 09:00 11/14/16 08:20 (Senna Liq) 8.8 mg BID NG 11/12/16 09:00 11/14/16 08:20 (NS Flush) 2 ml UNSCH PRN IV FLUSH 11/12/16 08:30 (NS Flush) 2 ml BID IV FLUSH 11/12/16 09:00 11/15/16 10:11 (Tears Naturale Opth Soln) 1 drop TID EACH EYE 11/12/16 09:00 11/15/16 13:00 (Zofran Inj) 4 mg Q6H PRN IV 11/12/16 08:30 11/15/16 05:45 (Duoneb Neb) 1 ampule Q6HR NEB INH 11/12/16 10:00 11/15/16 08:33 (Albuterol Neb) 2.5 mg Q2HR NEB PRN INH 11/12/16 08:30 (Dulcolax Supp) 10 mg DAILY PRN RECTAL 11/12/16 08:30 (Lactulose Liq) 30 ml DAILY PRN PO 11/12/16 08:30 Potassium Chloride 100 ml @ 50 mls/hr Q2H PRN IV-CENTRAL 11/12/16 08:30 11/13/16 08:49 Potassium Chloride 100 ml @ 50 mls/hr Q2H PRN IV 11/12/16 08:30 (K-Lyte Cl Eff) 50 meq UNSCH PRN PO 11/12/16 08:30 Potassium Chloride 100 ml @ 25 mls/hr UNSCH PRN IV-CENTRAL 11/12/16 08:30 Potassium Chloride 100 ml @ 50 mls/hr Q2H PRN IV 11/12/16 08:30 Magnesium Sulfate 4 gm/Sodium Chloride 100 ml @ 50 mls/hr UNSCH PRN IV 11/12/16 08:30 (Mag-Ox) 800 mg UNSCH PRN PO 11/12/16 08:30 Magnesium Sulfate 2 gm/Sodium Chloride 100 ml @ 50 mls/hr UNSCH PRN IV 11/12/16 08:30 (K-Phos) 2,000 mg Q4H PRN PO 11/12/16 08:30 11/13/16 10:35 Sodium Phosphate 30 mmol/Sodium Chloride 250 ml @ 42 mls/hr UNSCH PRN IV 11/12/16 08:30 11/14/16 18:44 (K-Phos) 2,000 mg UNSCH PRN PO/TUBE 11/12/16 08:30 Potassium Phosphate 30 mmol/ Sodium Chloride 260 ml @ 42 mls/hr UNSCH PRN IV 11/12/16 08:30 11/14/16 06:15 (Tylenol 650 Mg/ 20 ml Liq) 650 mg Q6H PRN NG 11/12/16 08:45 11/15/16 02:10 Sodium Chloride 500 ml @ 20 mls/hr Q24H IV 11/12/16 09:00 11/15/16 06:34 Levetriacetam 100 ml @ 400 mls/hr Q8HR IV 11/12/16 22:00 11/15/16 13:12 (Cerebyx Inj) 100 mgpe Q6HR IV 11/12/16 18:00 11/15/16 13:12 (Miralax) 17 gm BID OG-TUBE 11/13/16 21:00 11/14/16 08:20 (Lactulose Liq) 30 ml DAILY PO 11/14/16 09:00 11/14/16 08:20 (Glycerin Adult Supp) 2 gm BID PRN RECTAL 11/13/16 15:00 (Apresoline Inj) 20 mg Q4H PRN IV PUSH 11/14/16 02:15 11/14/16 03:07 (Lopressor Inj) 5 mg Q6H PRN IV PUSH 11/14/16 03:30 11/14/16 03:25 Allergies Allergies Coded Allergies Penicillins (Verified Allergy, Unknown, 11/09/16) Exam I&O / VS Vital Signs Date Time Temp Pulse Resp B/P (MAP) Pulse Ox O2 Delivery O2 Flow Rate FiO2 11/15/16 11:52 100 40 11/15/16 08:34 40 11/15/16 08:34 100 40 11/15/16 08:00 40 11/15/16 08:00 98 11/15/16 07:00 100 Mechanical Ventilator 11/15/16 06:00 98 11/15/16 04:12 100 40 11/15/16 04:00 100.5 92 18 129/65 (86) 100 11/15/16 04:00 92 11/15/16 04:00 40 11/15/16 02:00 102 11/15/16 00:15 100 40 11/15/16 00:00 40 11/15/16 00:00 102 11/15/16 00:00 101.3 102 20 135/68 (90) 100 11/14/16 22:42 100 40 11/14/16 22:00 100 11/14/16 20:39 98 40 11/14/16 20:00 98.5 98 20 122/61 (81) 99 11/14/16 20:00 98 11/14/16 20:00 40 11/14/16 19:00 100 Mechanical Ventilator 11/14/16 18:54 101.6 11/14/16 18:00 100 11/14/16 16:00 101 11/14/16 16:00 40 11/14/16 16:00 100.1 101 19 151/65 (93) 100 11/14/16 15:17 100 40 Exam Comments on ventilator. more responsive today. Open eyes to voice. does not follow commands. PERRL MOTOR--no focal deficit. No myoclonus or clinical Sz seen at this time Objective Micro and Labs Laboratory Tests Test 11/14/16 17:25 11/15/16 00:39 11/15/16 05:06 11/15/16 10:45 Potassium Level 3.6 Serum Osmolality 319 321 322 Phosphorus Level 2.3 Sodium Level 150 148 151 White Blood Count 16.6 Red Blood Count 2.86 Hemoglobin 8.7 Hematocrit 26.1 Mean Corpuscular Volume 91.2 Mean Corpuscular Hemoglobin 30.4 Mean Corpuscular Hemoglobin Concent 33.3 Red Cell Distribution Width 17.8 Platelet Count 185 Mean Platelet Volume 8.1 Neutrophils (%) (Auto) 29.2 Lymphocytes (%) (Auto) 63.3 Monocytes (%) (Auto) 7.1 Eosinophils (%) (Auto) 0.2 Basophils (%) (Auto) 0.2 Neutrophils # (Auto) 4.8 Lymphocytes # (Auto) 10.5 Monocytes # (Auto) 1.2 Eosinophils # (Auto) 0.0 Basophils # (Auto) 0.0 CBC Comment AUTO DIFF Differential Total Cells Counted 100 Neutrophils % (Manual) 31 Lymphocytes % 67 Monocytes % 2 Neutrophils # (Manual) 5.1 Differential Comment FINAL DIFF MANUAL Smudge Cells PRESENT Platelet Estimate NORMAL Platelet Morphology Comment NORMAL Ovalocytes 1+ Acanthocytes 1+ Vancomycin Level Trough 8.0 Date/Time Source Procedure Growth Status 11/11/16 14:40 Blood Peripheral Aerobic Blood Culture - Preliminary NO GROWTH IN 4 DAYS Resulted 11/11/16 14:40 Blood Peripheral Anaerobic Blood Culture - Preliminary NO GROWTH IN 4 DAYS Resulted 11/12/16 22:25 Nasal Aspirate Influenza Types A,B Antigen (MEENU) - Final NEGATIVE FOR FLU A AND B ANTIGEN.... Complete Omer Nguyen PhD Nov 15, 2016 14:21
[2016-11-15 19:25] LABS: BICARBONATE 30.3 MEQ/L (21.0-32.0); POTASSIUM 3.5 MEQ/L (3.5-5.1)
[2016-11-15] MEDS: TAMSULOSIN HCL 0.4 MG CAP PO SCH (20:17)
[2016-11-15] MEDS: METOPROLOL TARTRATE 5 MG/5 ML VIAL IV PUSH PRN (21:35)
[2016-11-16] VITALS (19 sets, daily range): BP systolic 103–145; BP diastolic 61–80; PULSE 89–110; RESP 15–30; TEMP 98.9–102.2; O2SAT 95–100
[2016-11-16] MEDS: FOSPHENYTOIN SODIUM 100 MG PE/2 ML VIAL IV SCH ×5 (00:39→23:00)
[2016-11-16] MEDS: ACETAMINOPHEN 650 MG/20.3 ML UDC NG PRN ×4 (00:39→18:43)
[2016-11-16] MEDS: RESP: ALBUTEROL 2.5 MG/IPRATROPIUM 0.5 MG NEB (SCH) INH ×2 (01:09→07:57)
[2016-11-16 04:38] LABS: BICARBONATE 29.9 MEQ/L (21.0-32.0); POTASSIUM 3.3 MEQ/L (3.5-5.1)
[2016-11-16] MEDS: levETIRAcetam 1000 MG INJ 100 ML IV SCH ×3 (05:33→22:34)
[2016-11-16] MEDS: INSULIN NovoLIN REGULAR SUPPLEMENTAL SCALE SQ SCH ×4 (06:00→16:41)
[2016-11-16] MEDS: SODIUM CHLORIDE 0.9% FLUSH 10 ML FLUSH IVF SCH (07:34)
[2016-11-16] MEDS: SODIUM CHLORIDE 0.9% FLUSH 10 ML FLUSH IV FLUSH SCH ×2 (07:34→20:37)
[2016-11-16] MEDS: 3% SALINE INJ 500 ML IV SCH (08:34)
[2016-11-16] MEDS: SENNOSIDES SYRUP 8.8 MG/5 ML CUP NG SCH ×2 (08:34→20:37)
[2016-11-16] MEDS: BISOPROLOL FUMARATE 5 MG TAB PO SCH (08:35)
[2016-11-16] MEDS: TOLTERODINE TARTRATE 2 MG CAP LA PO SCH (08:35)
[2016-11-16] MEDS: FINASTERIDE 5 MG TAB PO SCH (08:35)
[2016-11-16] MEDS: LANSOPRAZOLE SOLUTAB 30 MG TAB NG SCH (08:35)
[2016-11-16] MEDS: CHLORHEXIDINE 0.12% (ORAL KIT) 15 ML CUP MT SCH ×2 (08:35→20:38)
[2016-11-16] MEDS: POLYETHYLENE GLYCOL 17 GM PKG OG-TUBE SCH ×2 (08:35→20:37)
[2016-11-16] MEDS: ARTIFICIAL TEARS OPTH SOLN 15 ML BTL EACH EYE SCH ×3 (08:35→17:11)
[2016-11-16] MEDS: DOCUSATE SODIUM 100 MG/10 ML UDC PO SCH ×2 (08:35→20:37)
[2016-11-16] MEDS: LACTULOSE SYRUP 20 GM/30 ML CUP PO SCH (08:35)
[2016-11-16] MEDS ORDERED: FUROSEMIDE 40 MG/4 ML VIAL IV PUSH ONE (09:30)
--- NOTE | 2016-11-16 09:37 | HHI.CCPN ---
Subjective Remarks/Hospital Course 80 y/o man fell backwards two days ago and hit the back of his head quite hard. LOC and vomiting followed by general lethargy, but conversant and responsive. I was asked to see him by nurse today for lack of responsiveness about 1100 hours. Unresponsive now and morning head CT demonstrates increased edema surrounding intraparenchymal hemorrhages, unchanged subdural collections. Stat EEG revealed generalized seizure activity. Discussed with Neurosurgery Service and AED started. Patient protects airway well, nonconvulsive. 11/12: Patient unresponsive and looking towards left. On fosphenytoin 100 mg IV every 8 hours and levetiracetam 1000 mg IV twice a day. Will need intubation along with central line placed for 3% hypertonic saline Subjective 11/13: Intubated yesterday severity ongoing seizure activity. EEG revealed cessation of seizure activity with lorazepam injection.. Tolerating tube feeding. No bowel movement. Afebrile. 11/14: Gas exchange acceptable. CT head worrisome. CXR with accumulating effusions. Daughter at bedside. 11/15: Severe neurological injury following backward fall. Medical therapy is maximized regarding prevention of cerebral edema and maintenance of cerebral perfusion. 11/16: Unresponsive. Serum well concentrated. Objective Vital Signs Date Time Temp Pulse Resp B/P (MAP) Pulse Ox O2 Delivery O2 Flow Rate FiO2 11/16/16 09:07 30 11/16/16 07:58 100 11/16/16 07:00 Mechanical Ventilator 11/16/16 06:00 106 11/16/16 04:00 98.9 15 143/80 (101) 11/12/16 07:00 3.00 Intake and Output 11/16/16 11/16/16 11/17/16 08:00 16:00 00:00 Intake Total 890 ml Output Total 1550 ml Balance -660 ml Result Diagram: 11/15/16 0506 11/16/16 0400 Imaging Last Impressions Chest X-Ray 11/12/16 0813 Signed Impressions: Service Date/Time: Saturday, November 12, 2016 08:15 - CONCLUSION: Right IJ catheter tip at the origin the superior vena cava. No evidence of pneumothorax. Narayan Coulter MD Abdomen X-Ray 11/12/16 0000 Signed Impressions: Service Date/Time: Saturday, November 12, 2016 08:23 - CONCLUSION: 1. Gastric tube in good position. 2. Probable right renal stones. Narayan Coulter MD Head CT 11/11/16 0000 Signed Impressions: Service Date/Time: Friday, November 11, 2016 09:44 - CONCLUSION: 1. Stable multiple intercranial contusions Blaine Shore MD Cervical Spine CT 11/09/161950 Signed Impressions: Service Date/Time: Wednesday, November 09, 2016 20:14 - CONCLUSION: Negative trauma CT. Cj Isidro MD Objective Remarks Gen: 80-year-old male, currently resting in bed, intubated Neck: Orally intubated. No thyromegaly.. Right IJ clean dry and intact Lungs: No wheezes, no crackles. Good air movement. Heart: RRR. S1S2, no S4. Without murmur, rubs Abdomen: Soft, nondistended, active bowel sounds are appreciated. No guarding, no distention Extremities: Warm, well perfused. Trace edema feet. Neuro: Withdraws to pain bilaterally. Does not open eyes, focus or track. Date of Insertion: Nov 12, 2016 Line: Central Venous Catheter Side: Right Location: Internal, Jugular A/P Assessment and Plan Neuro/Psych: Closed head injury - Traumatic Bilateral large intra-parenchymal hemorrhages/right temporal/parietal subdural hematoma and bifrontal contusions Nonconvulsive seizures CT brain 11/11 revealed bi frontal contusions, right temporal/parietal subdural hematoma around 8 mm in subarachnoid hemorrhage EEG 11/11 revealed mild to moderate encephalopathy. Right frontal/central generalized slowing with intermittent sharps waves Repeat EEG 11/12 revealed 2 clinical seizure activities that cessation with 2 mg Ativan IV 1. Repeat EEG today pending Currently on fosphenytoin 100 mg IV every 6 hours. A.m. level pending. Along with levetiracetam 1000 mg IV twice a day. Currently on hydrocodone/acetaminophen 10/325 one to 2 tablets every 4 hours when necessary pain Currently on 3% saline at 20 cc an hour. Serial sodiums Every 6 hours sodiums. Every 6 hours serum OSM. Goal maintain sodium currently 145 - 155 . Goal of serum osm less than 300-320 Neurosurgery/Dr. Godfrey follows Repeat CT head ordered for today -> edema CV: Atrial fibrillation Hypertension Currently normal saline at 84 cc an hour Currently on bisoprolol 5 mill grams by mouth daily/home medication with holding parameters for heart rate and blood pressure Not requiring vasopressors and/or antihypertensives. Goal keep systolic blood pressure less than 150 Resp: Acute respiratory insufficiency secondary to altered mental status Will likely require intubation for airway protection [facility] 16/around 550/1//50 Ventilator bundle Albuterol/ipratropium aerosols every 6 hours with albuterol aerosols every 2 hours when necessary breakthrough dyspnea Spontaneous breathing trials when clinically indicated Follow post intubation x-ray and ABG GI: Continue vital 1.5 goal 65 cc daily with benefit protein Lansoprazole 30 mg by tube for GI prophylaxis Docusate sodium 100 mg twice a day/senna 8.6 mg twice a day for bowel regimen : BPH Maintain Noriega Currently on tamsulosin 0.4 mg by mouth daily and tolterodine 2 mg by mouth daily - hospital substitution for finasteride 5 mg by mouth daily Endo: Diabetes mellitus - hemoglobin A1c 6.0 Currently on Novulin R sliding scale insulin every 6 hours to maintain euglycemia Holding glimepiride 5 mg by mouth daily. Renal: Creatinine currently within normal limits Monitor urine output Accurate I's and O's Heme: Leukocytosis Normocytic anemia Coags within normal limits. A.m. laboratories currently pending. ID: Previously on levofloxacin 500 mg IV daily D/C vancomycin, aztreonam and metronidazole day #4 Pertinent cultures 11/11 - blood cultures 2 - no growth FEN: Hypophosphatemia MSK: Physical therapy evaluate and treat Access Left IJ CVL day #5 placed 11/12/2016 Prophylaxis - GI - lanosprazole DVT - SCD/pharmacological prophylaxis when okay with neurosurgery Overall impression: Critically ill and deteriorating pulmonary status in wake of severe head injury. Unable to wean ventilator. Prognosis poor in this age group with this degree of neurological injury. Critical care 35 mins Dev Loaiza MD Nov 16, 2016 09:37
[2016-11-16] MEDS: METOPROLOL TARTRATE 25 MG TAB PO SCH ×2 (10:33→20:36)
--- NOTE | 2016-11-16 11:09 | HHI.NSPN ---
([place] MACIAS) History Chief Complaint: Unable to obtain due to patient's mental status. (CindyBrennon MACIAS) Interval History 11/09: 80-year-old male who according to his family was going up a step into the house with his cane when he fell backwards, striking the back of his head. He was reportedly unconscious for 10-15 minutes. He then had some shaking in the extremities as he was waking up. He has been somewhat sleepy and a little confused since he woke up at the patient's family states that he is conversing reasonably well with them. He normally is fairly independent, ambulating with a cane and is usually mentally alert with only mild memory loss. Positive emesis reported. Patient has no complaint of headache or neck pain. No complaint of low back or joint pain. 11/10: nursing reports agitated overnight, currently sleeping. f/u CT Head completed, moves all four extremities. son translated - oriented to name and place only. 11/11: Notified by PARVIN Stoner, that Nursing had notified her that the patient's mental status was worse this morning and that she had ordered a stat CT brain. When seen this morning the patient is obtunded and not answering to verbal stimuli. Nursing reports that CT had called and was sending someone up to transport the patient to the scanner. She stated that the patient did receive morphine and hydrocodone during the night for pain because he was agitated. 11/12: The patient has been intubated this morning due to persistent decreased mental status. Possibly a few more episodes of seizure activity reported last evening. He is continuing on Dilantin and Keppra for seizures. 11/13: The patient still is intubated, mechanically ventilated and sedated with midazolam. He does not respond to noxious stimulation. The EEG done yesterday morning did demonstrate seizure activity. Neurology evaluated the patient yesterday and adjusted his anti-epileptic medications. An EEG was done this morning prior to the patient being seen. 11/14: The patient remains intubated. A midazolam drip is still infusing as is a fentanyl drip. A repeat Ct brain this morning demonstrated evolving contusions and haemorrhages. 11/15: The patient is intubated without any sedation. The midazolam and fentanyl infusions were discontinued yesterday. A 3% saline drip continues to infuse. He did have a slight twitching of the eyelids when his name was called but no eye opening. 11/16: This morning the patient opened his eyes to verbal stimulation. He continues to be intubated without any sedation. (Brennon White) System Review Comments Unable to obtain due to patient's mental status. (Brennon White) Exam Results 11/14/16 11/14/16 11/15/16 11/15/16 11/16/16 11/16/16 06:00 18:00 06:00 18:00 06:00 18:00 Intake Total 1386 ml 4720 ml 1144 ml 2219 ml 790 ml 200 ml Output Total 1850 ml 1700 ml 1500 ml 1800 ml 1550 ml Balance -464 ml 3020 ml -356 ml 419 ml -760 ml 200 ml IV Total 750 ml 3796 ml 697 ml 1734 ml 479 ml 200 ml Tube Feeding 536 ml 424 ml 447 ml 485 ml 311 ml Other 100 ml 500 ml Output Urine Total 1850 ml 1700 ml 1500 ml 1800 ml 1550 ml Tube Feeding Residual Discard 0 ml # Bowel Movements 0 2 0 Vital Signs Date Time Temp Pulse Resp B/P (MAP) Pulse Ox O2 Delivery O2 Flow Rate FiO2 11/16/16 10:00 97 11/16/16 09:15 40 11/16/16 09:07 30 11/16/16 08:00 110 11/16/16 08:00 40 11/16/16 08:00 102.2 110 15 144/78 (100) 100 11/16/16 07:58 100 30 11/16/16 07:00 100 Mechanical Ventilator 30 11/16/16 06:00 106 11/16/16 04:34 100 30 11/16/16 04:00 102 11/16/16 04:00 98.9 102 15 143/80 (101) 100 11/16/16 04:00 40 11/16/16 02:00 102 11/16/16 01:09 100 30 11/16/16 00:00 40 11/16/16 00:00 108 11/16/16 00:00 102.0 108 16 139/68 (91) 100 11/15/16 22:00 102 11/15/16 20:08 100 40 11/15/16 20:00 101.9 108 28 140/67 (91) 100 11/15/16 20:00 40 11/15/16 20:00 108 11/15/16 19:00 100 Mechanical Ventilator 40 11/15/16 17:01 100 40 11/15/16 16:00 102.7 104 14 157/67 (97) 100 11/15/16 16:00 40 11/15/16 15:00 40 11/15/16 12:00 40 11/15/16 12:00 101.2 98 14 126/58 (80) 100 11/15/16 11:52 100 40 11/15/16 08:34 40 11/15/16 08:34 100 40 11/15/16 08:00 40 11/15/16 08:00 98 11/15/16 08:00 101.4 101 16 126/86 (99) 100 11/15/16 07:00 100 Mechanical Ventilator 11/15/16 06:00 98 11/15/16 04:12 100 40 11/15/16 04:00 100.5 92 18 129/65 (86) 100 11/15/16 04:00 92 11/15/16 04:00 40 11/15/16 02:00 102 11/15/16 00:15 100 40 11/15/16 00:00 40 11/15/16 00:00 102 11/15/16 00:00 101.3 102 20 135/68 (90) 100 11/14/16 22:42 100 40 11/14/16 22:00 100 11/14/16 20:39 98 40 11/14/16 20:00 98.5 98 20 122/61 (81) 99 11/14/16 20:00 98 11/14/16 20:00 40 11/14/16 19:00 100 Mechanical Ventilator 11/14/16 18:54 101.6 11/14/16 18:00 100 11/14/16 16:00 101 11/14/16 16:00 40 11/14/16 16:00 100.1 101 19 151/65 (93) 100 11/14/16 15:17 100 40 11/14/16 14:00 93 11/14/16 13:35 98.8 11/14/16 12:17 100.0 11/14/16 12:00 40 11/14/16 12:00 106 11/14/16 12:00 102.1 106 18 114/57 (76) 100 11/14/16 11:28 100 40 11/14/16 10:00 106 11/14/16 08:34 40 11/14/16 08:34 100 40 11/14/16 08:00 100 11/14/16 08:00 101.7 112 14 113/100 (104) 100 11/14/16 08:00 113 11/14/16 07:00 100 Mechanical Ventilator 11/14/16 06:15 100 100 11/14/16 06:00 112 11/14/16 04:08 100 40 11/14/16 04:00 102.1 128 14 124/66 (85) 95 11/14/16 04:00 40 11/14/16 04:00 125 11/14/16 02:00 112 11/14/16 01:15 100 40 11/14/16 00:00 98.1 100 14 140/67 (91) 100 11/14/16 00:00 100 11/14/16 00:00 40 11/13/16 22:18 100 40 11/13/16 22:00 94 11/13/16 20:33 99 40 11/13/16 20:00 40 11/13/16 20:00 98.4 82 14 98/55 (69) 98 11/13/16 20:00 82 11/13/16 19:00 100 Mechanical Ventilator 40 11/13/16 18:00 90 11/13/16 18:00 100.2 11/13/16 16:00 40 11/13/16 16:00 101.4 101 15 114/55 (74) 100 11/13/16 16:00 104 11/13/16 15:41 100 40 11/13/16 14:00 106 11/13/16 13:38 100 40 11/13/16 12:00 101 11/13/16 12:00 99.8 101 17 123/64 (83) 100 11/13/16 12:00 40 (Brennon White) Physical Examination GENERAL: Patient is intubated w/o any sedation. He does open his eyes to verbal stimulation. SKIN: Slightly hot to touch, dry & intact w/o any evident rashes, ulcerations or lesions. HEENT: Normocephalic. Pupils appear essentially equal and sluggish. Orally intubated. OGT. NECK: No JVD, trachea midline. CARDIOVASCULAR: S1S2 w/RRR w/o M/G/R, radial & pedal pulses 2+ bilaterally, cap refill < 2 sec, dependent edema. Monitor is sinus rhythm w/o any evident ectopy. RESPIRATORY: Essentially clear bilaterally, equal excursion, nonlaboured, intubated and mechanically ventilated. GASTROINTESTINAL: Abdomen soft, rounded, positive bowel sounds, OGT w/enteral feeds. MUSCULOSKELETAL: No evident deformity or clubbing. NEUROLOGICAL: Intubated w/o any sedation. GCS 8T (E3 V1T M4). Eye opening to voice & noxious stimulation. Pupils appear essentially equal and sluggish. Does not follow commands. No response to localised noxious stimulation but slight withdrawal with LUE to central noxious stimulation. Unable to assess sensation. (Brennon White) Lab, Micro, Other Results Recent Impressions Head CT 11/14/16 06 Signed Impressions: Service Date/Time: Monday, November 14, 2016 06:29 - CONCLUSION: 1. Evolving bifrontal contusions, subdural and subarachnoid hemorrhage. 2. No intercurrent hemorrhage or herniation. Konstantin Dash MD Chest X-Ray 11/14/16 06 Signed Impressions: Service Date/Time: Monday, November 14, 2016 03:40 - CONCLUSION: 1. Tubes and lines, as above. 2. Mild progression of bilateral lower lung zone mixed interstitial and airspace opacities. 3. Stable small left pleural effusion. Konstantin Dash MD Laboratory Tests Test 11/13/16 13:30 11/13/16 15:35 11/13/16 18:10 11/14/16 03:45 Sodium Level 146 MEQ/L 148 MEQ/L Serum Osmolality 310 MOSM/KG 317 MOSM/KG 316 MOSM/KG Phenytoin (Dilantin) Level 8.6 MCG/ML 8.1 MCG/ML White Blood Count 20.0 TH/MM3 Red Blood Count 3.11 MIL/MM3 Hemoglobin 9.1 GM/DL Hematocrit 28.3 % Mean Corpuscular Volume 91.1 FL Mean Corpuscular Hemoglobin 29.4 PG Mean Corpuscular Hemoglobin Concent 32.3 % Red Cell Distribution Width 18.5 % Platelet Count 213 TH/MM3 Mean Platelet Volume 7.3 FL Neutrophils (%) (Auto) 24.4 % Lymphocytes (%) (Auto) 67.0 % Monocytes (%) (Auto) 8.2 % Eosinophils (%) (Auto) 0.3 % Basophils (%) (Auto) 0.1 % Neutrophils # (Auto) 4.9 TH/MM3 Lymphocytes # (Auto) 13.4 TH/MM3 Monocytes # (Auto) 1.6 TH/MM3 Eosinophils # (Auto) 0.1 TH/MM3 Basophils # (Auto) 0.0 TH/MM3 CBC Comment AUTO DIFF Differential Total Cells Counted 100 Neutrophils % (Manual) 27 % Band Neutrophils % 2 % Lymphocytes % 67 % Monocytes % 4 % Neutrophils # (Manual) 5.8 TH/MM3 Differential Comment FINAL DIFF MANUAL Platelet Estimate NORMAL Platelet Morphology Comment NORMAL Red Cell Morphology Comment NORMAL Blood Urea Nitrogen 19 MG/DL Creatinine 0.54 MG/DL Random Glucose 200 MG/DL Total Protein 6.0 GM/DL Albumin 2.2 GM/DL Calcium Level 8.0 MG/DL Phosphorus Level 1.9 MG/DL Magnesium Level 2.0 MG/DL Alkaline Phosphatase 58 U/L Aspartate Amino Transf (AST/SGOT) 15 U/L Alanine Aminotransferase (ALT/SGPT) 12 U/L Total Bilirubin 1.2 MG/DL Potassium Level 3.9 MEQ/L Chloride Level 115 MEQ/L Carbon Dioxide Level 24.9 MEQ/L Anion Gap 8 MEQ/L Estimat Glomerular Filtration Rate 146 ML/MIN Test 11/14/16 13:00 11/14/16 17:25 11/15/16 00:39 11/15/16 05:06 Sodium Level 149 MEQ/L 150 MEQ/L 148 MEQ/L Serum Osmolality 321 MOSM/KG 319 MOSM/KG 321 MOSM/KG 322 MOSM/KG Phenytoin (Dilantin) Level 11.7 MCG/ML Potassium Level 3.6 MEQ/L Phosphorus Level 2.3 MG/DL White Blood Count 16.6 TH/MM3 Red Blood Count 2.86 MIL/MM3 Hemoglobin 8.7 GM/DL Hematocrit 26.1 % Mean Corpuscular Volume 91.2 FL Mean Corpuscular Hemoglobin 30.4 PG Mean Corpuscular Hemoglobin Concent 33.3 % Red Cell Distribution Width 17.8 % Platelet Count 185 TH/MM3 Mean Platelet Volume 8.1 FL Neutrophils (%) (Auto) 29.2 % Lymphocytes (%) (Auto) 63.3 % Monocytes (%) (Auto) 7.1 % Eosinophils (%) (Auto) 0.2 % Basophils (%) (Auto) 0.2 % Neutrophils # (Auto) 4.8 TH/MM3 Lymphocytes # (Auto) 10.5 TH/MM3 Monocytes # (Auto) 1.2 TH/MM3 Eosinophils # (Auto) 0.0 TH/MM3 Basophils # (Auto) 0.0 TH/MM3 CBC Comment AUTO DIFF Differential Total Cells Counted 100 Neutrophils % (Manual) 31 % Lymphocytes % 67 % Monocytes % 2 % Neutrophils # (Manual) 5.1 TH/MM3 Differential Comment FINAL DIFF MANUAL Smudge Cells PRESENT Platelet Estimate NORMAL Platelet Morphology Comment NORMAL Ovalocytes 1+ Acanthocytes 1+ Test 11/15/16 10:45 11/15/16 18:19 11/16/16 04:00 Sodium Level 151 MEQ/L 150 MEQ/L 151 MEQ/L Vancomycin Level Trough 8.0 MCG/ML Blood Urea Nitrogen 25 MG/DL 25 MG/DL Creatinine 0.66 MG/DL 0.71 MG/DL Random Glucose 244 MG/DL 256 MG/DL Calcium Level 7.6 MG/DL 8.1 MG/DL Potassium Level 3.5 MEQ/L 3.3 MEQ/L Chloride Level 115 MEQ/L 115 MEQ/L Carbon Dioxide Level 30.3 MEQ/L 29.9 MEQ/L Anion Gap 5 MEQ/L 6 MEQ/L Estimat Glomerular Filtration Rate 116 ML/MIN 106 ML/MIN Serum Osmolality 327 MOSM/KG (Brennon White) Medical Decision Making Impression and Plan Impression: 1. Traumatic brain injury 2. Hypertension 3. Diabetes 4. Respiratory failure 5. Seizures Sodium 151 this morning. Patient with poor neurological examination, opens eyes to voice, minimal motor response to central noxious stimulation. Plan: Plan of care discussed with Nursing. Critical care management per [employer]. Anti-epileptic medications per Neurology. Frequent neuro checks. Continue present diabetic medications with insulin sliding scale. Non-chemical DVT prophylaxis. Ulcer prophylaxis. (Brennon White) Attending Statement I have personally seen and examined the patient on 11/16/16. Pertinent documentation and study results have been reviewed by the undersigned. I have personally developed the treatment plan and performed medical decision making. Agree with findings, exam, and treatment plan as noted above. On my examination today the patient remains moderately lethargic. Now with moderate eye opening when stimulated. Not following commands Does not focus her follow with his eyes. Moderate disconjugate extraocular movements. Flexes and questionably localizes to deep pain left greater than right upper extremity. Patient continues to be somewhat more alert in the past couple days. Keep sodium within normal limits-no significant edema or mass effect on most recent CT scan. Discussion with the patient's family last evening indicates a desire to try to proceed to extubation in the next week if the patient's mental status continues to improve. (Tony Godfrey MD) Brennon White Nov 16, 2016 11:09 Tony Godfrey MD Nov 16, 2016 20:44
[2016-11-16 17:10] LABS: BICARBONATE 31.7 MEQ/L (21.0-32.0); POTASSIUM 3.3 MEQ/L (3.5-5.1)
[2016-11-16] MEDS ORDERED: FUROSEMIDE 40 MG/4 ML VIAL IV PUSH SCH (18:00)
[2016-11-16 19:42] LABS: MAGNESIUM 2.3 MG/DL (1.5-2.5)
[2016-11-16] MEDS: TAMSULOSIN HCL 0.4 MG CAP PO SCH ×2 (20:36→21:00)
[2016-11-16] MEDS: SODIUM PHOSPHATE INJ 30 MMOL in SODIUM CHLOR 0.9% 250 ML INJ 240 ML IV PRN (22:59)
[2016-11-17] VITALS (18 sets, daily range): BP systolic 122–158; BP diastolic 65–102; PULSE 78–116; RESP 20–30; TEMP 99–103.2; O2SAT 100
[2016-11-17] MEDS: INSULIN NovoLIN REGULAR SUPPLEMENTAL SCALE SQ SCH ×2 (00:22→05:59)
[2016-11-17] MEDS: levETIRAcetam 1000 MG INJ 100 ML IV SCH ×3 (05:10→21:14)
[2016-11-17] MEDS: FOSPHENYTOIN SODIUM 100 MG PE/2 ML VIAL IV SCH ×3 (05:10→18:00)
[2016-11-17] MEDS: ACETAMINOPHEN 650 MG/20.3 ML UDC NG PRN ×3 (05:10→21:14)
[2016-11-17] MEDS: METOPROLOL TARTRATE 5 MG/5 ML VIAL IV PUSH PRN ×2 (05:11→21:14)
[2016-11-17] MEDS ORDERED: MIDAZOLAM HCL 2 MG/2 ML VIAL ONE (05:30)
[2016-11-17] MEDS ORDERED: MIDAZOLAM HCL 2 MG/2 ML VIAL IV PUSH ONE (05:30)
[2016-11-17] MEDS ORDERED: SODIUM CHLOR 0.9% 1000 ML INJ 1,000 ML IV ONE ×3 (06:15→09:00)
--- NOTE | 2016-11-17 06:24 | RADRPT ---
EXAM DATE/TIME: 11/17/2016 05:42 [facility] COMPARISON: CHEST SINGLE AP, November 14, 2016, 3:40. INDICATIONS : Shortness of breath, possible pulmonary disease. MEDICAL HISTORY : Cardiovascular disease. Diabetes mellitus type II. SURGICAL HISTORY : None. ENCOUNTER: Subsequent ACUITY: 4 - 6 days PAIN SCORE: Non-responsive. LOCATION: Bilateral chest FINDINGS: A single view of the chest demonstrates endotracheal tube tip in satisfactory position. NG enters sto mach. Right central line in superior vena cava. Subsegmental basilar airspace disease. Heart size wit hin normal limits. CONCLUSION: 1. Support apparatus in satisfactory position. Subsegmental basilar air space disease improved from S eptember 8. Alex Goode MD on November 17, 2016 at 6:21 Board Certified Radiologist. This report was verified electronically.
[2016-11-17 06:25] LABS: BLOOD GAS BASE EXCESS 1.6 mmol/L (-2-2); BLOOD GAS CARBOXYHEMOGLOBIN 1.4 % (0-4); BLOOD GAS HCO3 25 mmol/L (22-26); BLOOD GAS METHEMOGLOBIN 0.8 % (0-2); BLOOD GAS O2 HGB SATURATION 96 % (90-100); BLOOD GAS OXYGEN CONTENT 14.8 Vol % (12.0-20.0); BLOOD GAS PCO2 32 mmHg (38-42); BLOOD GAS PO2 107 mmHg (61-120); BLOOD GAS TOTAL HGB 10.9 G/DL (12.0-16.0); TEMP CORR TO 98.6
[2016-11-17 06:26] LABS: CRITICAL VALUE NO; OXYGEN DEVICE VENTILATOR; VENT SETTINGS PRVC / AC /
[2016-11-17 06:27] LABS: DRAW SITE RT RADIAL; FIO2 35 %; NUMBER OF ARTERIAL PUNCTURES 1
[2016-11-17 06:31] LABS: ANION GAP 10 MEQ/L (5-15); BLOOD UREA NITROGEN 30 MG/DL (7-18); CHLORIDE 111 MEQ/L (98-107); GLOMERULAR FILTRATION RATE 71 ML/MIN (>89); POTASSIUM 4.2 MEQ/L (3.5-5.1); SODIUM (NA) 148 MEQ/L (136-145)
[2016-11-17] MEDS: SODIUM CHLORIDE 0.9% FLUSH 10 ML FLUSH IV FLUSH SCH ×2 (07:15→21:13)
[2016-11-17] MEDS: SODIUM CHLORIDE 0.9% FLUSH 10 ML FLUSH IVF SCH (07:15)
[2016-11-17 07:31] LABS: AUTOMATED NEUTROPHIL # 4.9 TH/MM3 (1.8-7.7); BASOPHIL # 0.1 TH/MM3 (0-0.2); BASOPHIL % 0.2 % (0.0-2.0); EOSINOPHIL # 0.1 TH/MM3 (0-0.4); EOSINOPHIL % 0.2 % (0.0-4.0); HEMATOCRIT 27.7 % (39.0-51.0); LYMPH % 78.7 % (9.0-44.0); LYMPHOCYTE # 23.9 TH/MM3 (1.0-4.8); MEAN CELL VOLUME 92.9 FL (80.0-100.0); MEAN CORPUSCULAR HEMOGLOBIN 29.5 PG (27.0-34.0); MEAN CORPUSCULAR HGB CONC 31.8 % (32.0-36.0); MONO % 4.8 % (0.0-8.0); NEUT % 16.1 % (16.0-70.0); PLATELET COUNT 200 TH/MM3 (150-450); RED BLOOD COUNT 2.98 MIL/MM3 (4.50-5.90); RED CELL DISTRIBUTION WIDTH 17.5 % (11.6-17.2); WHITE BLOOD COUNT 30.3 TH/MM3 (4.0-11.0)
[2016-11-17 07:38] LABS: HEMO FLAGS AUTO DIFF
[2016-11-17 07:51] LABS: AST (GOT) 33 U/L (15-37); MAGNESIUM 2.3 MG/DL (1.5-2.5); TOTAL BILIRUBIN ADULT 0.8 MG/DL (0.2-1.0)
[2016-11-17 08:13] LABS: ALKALINE PHOSPHATASE 58 U/L (45-117); ALT (GPT) 22 U/L (12-78)
[2016-11-17] MEDS ORDERED: GLUCAGON 1 MG/ML VIAL OTHER PRN (08:15)
[2016-11-17] MEDS ORDERED: Vancomycin Consult Pharmacy 1 EA OTHER SCH (08:15)
[2016-11-17] MEDS ORDERED: DEXTROSE 50% IN WATER 50 ML VIAL(D50) IV PRN (08:15)
--- NOTE | 2016-11-17 08:20 | HHI.CCPN ---
Subjective Remarks/Hospital Course 80 y/o man fell backwards two days ago and hit the back of his head quite hard. LOC and vomiting followed by general lethargy, but conversant and responsive. I was asked to see him by nurse today for lack of responsiveness about 1100 hours. Unresponsive now and morning head CT demonstrates increased edema surrounding intraparenchymal hemorrhages, unchanged subdural collections. Stat EEG revealed generalized seizure activity. Discussed with Neurosurgery Service and AED started. Patient protects airway well, nonconvulsive. 11/12: Patient unresponsive and looking towards left. On fosphenytoin 100 mg IV every 8 hours and levetiracetam 1000 mg IV twice a day. Will need intubation along with central line placed for 3% hypertonic saline Subjective 11/13: Intubated yesterday severity ongoing seizure activity. EEG revealed cessation of seizure activity with lorazepam injection.. Tolerating tube feeding. No bowel movement. Afebrile. 11/14: Gas exchange acceptable. CT head worrisome. CXR with accumulating effusions. Daughter at bedside. 11/15: Severe neurological injury following backward fall. Medical therapy is maximized regarding prevention of cerebral edema and maintenance of cerebral perfusion. 11/16: Unresponsive. Serum well concentrated. 11/17: He became hemodynamically unstable last night, associated with temp 103. Cultures obtained, abx started. Will remove central line. No neuro improvement. Objective Vital Signs Date Time Temp Pulse Resp B/P (MAP) Pulse Ox O2 Delivery O2 Flow Rate FiO2 11/17/16 07:59 100 30 11/17/16 07:00 Mechanical Ventilator 11/17/16 06:00 112 11/17/16 04:00 103.2 26 128/65 (86) Intake and Output 11/17/16 11/17/16 11/18/16 08:00 16:00 00:00 Intake Total 1380 ml Output Total 1950 ml Balance -570 ml Result Diagram: 11/17/16 0645 11/17/16 0530 Other Results Laboratory Tests Test 11/17/16 06:05 Blood Gas Puncture Site RT RADIAL Blood Gas Patient Temperature 98.6 Blood Gas HCO3 25 mmol/L (22-26) Blood Gas Base Excess 1.6 mmol/L (-2-2) Blood Gas Oxygen Saturation 96 % (90-100) Arterial Blood pH 7.49 (7.380-7.420) Arterial Blood Partial Pressure CO2 32 mmHg (38-42) Arterial Blood Partial Pressure O2 107 mmHg (61-120) Arterial Blood Oxygen Content 14.8 Vol % (12.0-20.0) Arterial Blood Carboxyhemoglobin 1.4 % (0-4) Arterial Blood Methemoglobin 0.8 % (0-2) Blood Gas Hemoglobin 10.9 G/DL (12.0-16.0) Oxygen Delivery Device VENTILATOR Blood Gas Ventilator Setting PRVC / AC / Blood Gas Inspired Oxygen 35 % Imaging Last Impressions Chest X-Ray 11/12/16 0813 Signed Impressions: Service Date/Time: Saturday, November 12, 2016 08:15 - CONCLUSION: Right IJ catheter tip at the origin the superior vena cava. No evidence of pneumothorax. Narayan Coulter MD Abdomen X-Ray 11/12/16 0000 Signed Impressions: Service Date/Time: Saturday, November 12, 2016 08:23 - CONCLUSION: 1. Gastric tube in good position. 2. Probable right renal stones. Narayan Coulter MD Head CT 11/11/16 0000 Signed Impressions: Service Date/Time: Friday, November 11, 2016 09:44 - CONCLUSION: 1. Stable multiple intercranial contusions Blaine Shore MD Cervical Spine CT 11/09/161950 Signed Impressions: Service Date/Time: Wednesday, November 09, 2016 20:14 - CONCLUSION: Negative trauma CT. Cj Isidro MD Objective Remarks Gen: 80-year-old male, intubated Neck: Supple. Orally intubated. Right IJ clean dry and intact Lungs: No wheezes, no crackles. Good air movement. Heart: RRR. S1S2. Without murmur, rubs Abdomen: Soft, nondistended, active bowel sounds are appreciated. No guarding, no distention Extremities: Warm, well perfused. Trace edema persists feet. Neuro: Withdraws to pain bilaterally. Does not open eyes, focus or track. Date of Insertion: Nov 12, 2016 Line: Central Venous Catheter Side: Right Location: Internal, Jugular A/P Assessment and Plan Neuro/Psych: Closed head injury - Traumatic Bilateral large intra-parenchymal hemorrhages/right temporal/parietal subdural hematoma and bifrontal contusions Nonconvulsive seizures CT brain 11/11 revealed bi frontal contusions, right temporal/parietal subdural hematoma around 8 mm in subarachnoid hemorrhage EEG 11/11 revealed mild to moderate encephalopathy. Right frontal/central generalized slowing with intermittent sharps waves Repeat EEG 11/12 revealed 2 clinical seizure activities that cessation with 2 mg Ativan IV 1. Repeat EEG today pending Currently on fosphenytoin 100 mg IV every 6 hours. A.m. level pending. Along with levetiracetam 1000 mg IV twice a day. Currently on hydrocodone/acetaminophen 10/325 one to 2 tablets every 4 hours when necessary pain Currently on 3% saline at 20 cc an hour. Serial sodiums Every 6 hours sodiums. Every 6 hours serum OSM. Goal maintain sodium currently 145 - 155 . Goal of serum osm less than 300-320 Neurosurgery/Dr. Godfrey follows Repeat CT head ordered for today -> edema CV: Atrial fibrillation Hypertension Currently normal saline at 84 cc an hour Currently on bisoprolol 5 mill grams by mouth daily/home medication with holding parameters for heart rate and blood pressure Not requiring vasopressors and/or antihypertensives. Goal keep systolic blood pressure less than 150 Resp: Acute respiratory insufficiency secondary to altered mental status Will likely require intubation for airway protection [facility] 16/around 550/03/13/49 Ventilator bundle Albuterol/ipratropium aerosols every 6 hours with albuterol aerosols every 2 hours when necessary breakthrough dyspnea Spontaneous breathing trials when clinically indicated Follow post intubation x-ray and ABG CXR today with light basilar infiltrates/atelectasis. GI: Continue vital 1.5 goal 65 cc daily with benefit protein Lansoprazole 30 mg by tube for GI prophylaxis Docusate sodium 100 mg twice a day/senna 8.6 mg twice a day for bowel regimen Change TFs to glucerna : BPH Maintain Noriega Currently on tamsulosin 0.4 mg by mouth daily and tolterodine 2 mg by mouth daily - hospital substitution for finasteride 5 mg by mouth daily Endo: Diabetes mellitus - hemoglobin A1c 6.0 Currently on Novulin R sliding scale insulin every 6 hours to maintain euglycemia Holding glimepiride 5 mg by mouth daily. Add levemir bid. Renal: Creatinine currently within normal limits Monitor urine output Accurate I's and O's Heme: Leukocytosis Normocytic anemia Coags within normal limits. A.m. laboratories currently pending. ID: Previously on levofloxacin 500 mg IV daily Cultures 11/17 Vanc, Cefepime started 11/17 Pertinent cultures 11/11 - blood cultures 2 - no growth FEN: Hypophosphatemia MSK: Physical therapy evaluate and treat Access Left IJ CVL day #6 placed 11/12/2016 Prophylaxis - GI - lanosprazole DVT - SCD/pharmacological prophylaxis when okay with neurosurgery Overall impression: Critically ill and deteriorating pulmonary status in wake of severe head injury. Unable to wean ventilator. No febrile to 103 and unstable hemodynamics. Prognosis poor in this age group with this degree of neurological injury. Critical care 40 mins Dev Loaiza MD Nov 17, 2016 08:20
--- NOTE | 2016-11-17 08:42 | HHI.NSPN ---
History Chief Complaint: Unable to obtain due to patient's mental status. Interval History 11/16/16: The patient has been intubated this morning due to persistent decreased mental status. Possibly a few more episodes of seizure activity reported last evening. He is continuing on Dilantin and Keppra for seizures 11/17/16: Patient remains intubated. He had a dose of intravenous sedation last night for agitation. Remains relatively alert. Positive fever last evening. Some difficulty with hemodynamic instability last evening. Exam Results Vital Signs Date Time Temp Pulse Resp B/P (MAP) Pulse Ox O2 Delivery O2 Flow Rate FiO2 11/17/16 07:59 100 30 11/17/16 07:00 Mechanical Ventilator 11/17/16 06:00 112 11/17/16 04:00 103.2 26 128/65 (86) Intake and Output 11/17/16 11/17/16 11/18/16 08:00 16:00 00:00 Intake Total 1380 ml Output Total 1950 ml Balance -570 ml Physical Examination GENERAL: Patient is intubated w/o any sedation. He does open his eyes to verbal stimulation. SKIN: Slightly hot to touch, dry & intact w/o any evident rashes, ulcerations or lesions. HEENT: Normocephalic. Pupils appear essentially equal and sluggish. Orally intubated. OGT. NECK: No JVD, trachea midline. CARDIOVASCULAR: S1S2 w/RRR w/o M/G/R, radial & pedal pulses 2+ bilaterally, cap refill < 2 sec, dependent edema. Monitor is sinus rhythm w/o any evident ectopy. RESPIRATORY: Essentially clear bilaterally, equal excursion, nonlaboured, intubated and mechanically ventilated. GASTROINTESTINAL: Abdomen soft, rounded, positive bowel sounds, OGT w/enteral feeds. MUSCULOSKELETAL: No evident deformity or clubbing. NEUROLOGICAL: Intubated w/o any sedation. Opens eyes well to voice. He tracks quite well with conjugate gaze to the left greater than right. Does not follow commands. No response to localised noxious stimulation but slight withdrawal with LUE to central noxious stimulation. Unable to assess sensation. Lab, Micro, Other Results Laboratory Tests Test 11/16/16 16:27 11/17/16 05:30 11/17/16 06:05 11/17/16 06:45 Blood Urea Nitrogen 23 MG/DL 30 MG/DL Creatinine 0.77 MG/DL 1.01 MG/DL Random Glucose 271 MG/DL 356 MG/DL Calcium Level 8.2 MG/DL 8.1 MG/DL Sodium Level 149 MEQ/L 148 MEQ/L Potassium Level 3.3 MEQ/L 4.2 MEQ/L Chloride Level 111 MEQ/L 111 MEQ/L Carbon Dioxide Level 31.7 MEQ/L 27.0 MEQ/L Anion Gap 6 MEQ/L 10 MEQ/L Estimat Glomerular Filtration Rate 97 ML/MIN 71 ML/MIN Phosphorus Level 1.8 MG/DL 3.5 MG/DL Magnesium Level 2.3 MG/DL 2.3 MG/DL Total Protein 6.4 GM/DL Albumin 2.0 GM/DL Alkaline Phosphatase 58 U/L Aspartate Amino Transf (AST/SGOT) 33 U/L Alanine Aminotransferase (ALT/SGPT) 22 U/L Total Bilirubin 0.8 MG/DL Blood Gas Puncture Site RT RADIAL Blood Gas Patient Temperature 98.6 Blood Gas HCO3 25 mmol/L Blood Gas Base Excess 1.6 mmol/L Blood Gas Oxygen Saturation 96 % Arterial Blood pH 7.49 Arterial Blood Partial Pressure CO2 32 mmHg Arterial Blood Partial Pressure O2 107 mmHg Arterial Blood Oxygen Content 14.8 Vol % Arterial Blood Carboxyhemoglobin 1.4 % Arterial Blood Methemoglobin 0.8 % Blood Gas Hemoglobin 10.9 G/DL Oxygen Delivery Device VENTILATOR Blood Gas Ventilator Setting PRVC / AC / Blood Gas Inspired Oxygen 35 % White Blood Count 30.3 TH/MM3 Red Blood Count 2.98 MIL/MM3 Hemoglobin 8.8 GM/DL Hematocrit 27.7 % Mean Corpuscular Volume 92.9 FL Mean Corpuscular Hemoglobin 29.5 PG Mean Corpuscular Hemoglobin Concent 31.8 % Red Cell Distribution Width 17.5 % Platelet Count 200 TH/MM3 Mean Platelet Volume 8.4 FL Neutrophils (%) (Auto) 16.1 % Lymphocytes (%) (Auto) 78.7 % Monocytes (%) (Auto) 4.8 % Eosinophils (%) (Auto) 0.2 % Basophils (%) (Auto) 0.2 % Neutrophils # (Auto) 4.9 TH/MM3 Lymphocytes # (Auto) 23.9 TH/MM3 Monocytes # (Auto) 1.5 TH/MM3 Eosinophils # (Auto) 0.1 TH/MM3 Basophils # (Auto) 0.1 TH/MM3 CBC Comment AUTO DIFF Medical Decision Making Impression and Plan Impression: 1. Traumatic brain injury. Most recent CT scan stable with scattered bilateral right and left hemisphere contusions and subarachnoid hemorrhage. No significant mass effect. 2. Persistent seizure activity. EEG 11/11/16 with occasional spikes 3. Fever. Increased white count to 30 K. Possible sepsis. Some hemodynamic instability last evening. Plan: Discussed with cognos administrator today. Cultures pending. Continue present anticonvulsants. Neurology consult Repeat EEG. Continue ventilatory support Patient's family in the room this morning Okay for Lovenox from neurosurgery standpoint Tony Godfrey MD Nov 17, 2016 08:42
[2016-11-17] MEDS: INSULIN DETEMIR 100 UNITS/ML VIAL SQ SCH ×2 (08:57→21:00)
[2016-11-17] MEDS: CEFEPIME INJ 2,000 MG in SODIUM CHLORIDE 0.9% INJ 100 ML IV SCH ×2 (08:58→21:12)
[2016-11-17] MEDS: SENNOSIDES SYRUP 8.8 MG/5 ML CUP NG SCH ×2 (08:58→21:13)
[2016-11-17] MEDS: LANSOPRAZOLE SOLUTAB 30 MG TAB NG SCH (08:58)
[2016-11-17] MEDS: ARTIFICIAL TEARS OPTH SOLN 15 ML BTL EACH EYE SCH ×3 (08:58→18:00)
[2016-11-17] MEDS: DOCUSATE SODIUM 100 MG/10 ML UDC PO SCH ×2 (08:58→21:13)
[2016-11-17] MEDS: POLYETHYLENE GLYCOL 17 GM PKG OG-TUBE SCH ×2 (08:58→21:13)
[2016-11-17] MEDS: METOPROLOL TARTRATE 25 MG TAB PO SCH ×2 (08:58→21:14)
[2016-11-17] MEDS: FINASTERIDE 5 MG TAB PO SCH (08:58)
[2016-11-17] MEDS: TOLTERODINE TARTRATE 2 MG CAP LA PO SCH (08:58)
[2016-11-17] MEDS: CHLORHEXIDINE 0.12% (ORAL KIT) 15 ML CUP MT SCH ×2 (08:58→21:12)
[2016-11-17] MEDS: LACTULOSE SYRUP 20 GM/30 ML CUP PO SCH (08:58)
[2016-11-17] MEDS: metroNIDAZOLE 500 MG TAB PO SCH ×3 (09:32→21:14)
[2016-11-17] MEDS: NS + KCL 20 MEQ INJ 1,000 ML IV SCH ×2 (09:32→18:08)
[2016-11-17] MEDS: INSULIN ASPART SUPPLEMENTAL SCALE SQ SCH ×3 (09:34→21:00)
[2016-11-17 11:39] LABS: BANDS 2 % (0-6); NEUTROPHIL # MANUAL DIFF 6.4 TH/MM3 (1.8-7.7); POLYS (SEG NEUTROPHILS) 19 % (16-70); WBC DIFF SAMPLE 100
[2016-11-17 11:40] LABS: ACANTHOCYTES OCC (NORMAL); OVALOCYTES 1+ (NORMAL); PLATELET ESTIMATE SMEAR NORMAL (NORMAL); PLATELET MORPHOLOGY NORMAL (NORMAL); SCAN/DIFF FINAL DIFF MANUAL; SMUDGE CELLS PRESENT PRESENT
--- NOTE | 2016-11-17 11:41 | RADRPT ---
EXAM DATE/TIME: 11/17/2016 10:03 [facility] COMPARISON: CT BRAIN W/O CONTRAST, November 14, 2016, 6:29. INDICATIONS : Subarachnoid hemorrhage. MEDICAL HISTORY : Subarachnoid hemorrhage. SURGICAL HISTORY : Cardiac cath. Neck surgery to remove cancer. ENCOUNTER: Initial ACUITY: 1 week PAIN SCORE: Nonresponsive. LOCATION: Bilateral cranial Current Exam: Nov 17, 2016 [place] Ratio: Right: UTO Left: UTO [place] Ratio: Right: UTO Left: UTO FINDINGS: Examination performed at bedside. Real-time ultrasound with the assistance of color and spectral Dop pler was utilized to evaluate the intracerebral circulation. Time-averaged maximal velocities are ca lculated in cm/s. Examination is essentially nondiagnostic due to poor transcranial windows. Flow is demonstrated in th e ophthalmic artery, vertebral arteries, and basilar artery. CONCLUSION: 1. Nondiagnostic examination due to poor transcranial windows. Konstantin Dash MD on November 17, 2016 at 11:37 Board Certified Radiologist. This report was verified electronically.
[2016-11-17] MEDS: VANCOMYCIN INJ 2,000 MG in SODIUM CHLORID 0.9% 500 ML INJ 500 ML IV ONE ×2 (12:31→13:12)
[2016-11-17] MEDS: RESP: ALBUTEROL 2.5 MG/3 ML NEB (PRN) INH (20:54)
[2016-11-17] MEDS: TAMSULOSIN HCL 0.4 MG CAP PO SCH (21:00)
[2016-11-18] VITALS (23 sets, daily range): BP systolic 127–145; BP diastolic 60–80; PULSE 97–130; RESP 26–30; TEMP 98.2–102.2; O2SAT 97–100
[2016-11-18] MEDS: FOSPHENYTOIN SODIUM 100 MG PE/2 ML VIAL IV SCH ×2 (01:28→05:34)
[2016-11-18] MEDS: INSULIN ASPART SUPPLEMENTAL SCALE SQ SCH ×4 (03:00→21:03)
[2016-11-18] MEDS: NS + KCL 20 MEQ INJ 1,000 ML IV SCH (04:02)
[2016-11-18] MEDS: ACETAMINOPHEN 650 MG/20.3 ML UDC NG PRN (04:02)
[2016-11-18] MEDS: METOPROLOL TARTRATE 5 MG/5 ML VIAL IV PUSH PRN (04:02)
[2016-11-18] MEDS: levETIRAcetam 1000 MG INJ 100 ML IV SCH ×3 (05:34→22:22)
[2016-11-18] MEDS: metroNIDAZOLE 500 MG TAB PO SCH ×3 (05:35→21:04)
[2016-11-18 08:39] LABS: BICARBONATE 23.6 MEQ/L (21.0-32.0)
[2016-11-18 08:47] LABS: POTASSIUM 5.6 MEQ/L (3.5-5.1)
[2016-11-18] MEDS: SODIUM CHLORIDE 0.9% FLUSH 10 ML FLUSH IVF SCH (09:00)
[2016-11-18] MEDS: POLYETHYLENE GLYCOL 17 GM PKG OG-TUBE SCH ×2 (09:00→21:00)
[2016-11-18] MEDS: DOCUSATE SODIUM 100 MG/10 ML UDC PO SCH ×2 (09:00→21:00)
[2016-11-18] MEDS: SODIUM CHLORIDE 0.9% FLUSH 10 ML FLUSH IV FLUSH SCH ×2 (09:00→21:01)
[2016-11-18] MEDS: SENNOSIDES SYRUP 8.8 MG/5 ML CUP NG SCH ×2 (09:00→21:00)
[2016-11-18] MEDS: LACTULOSE SYRUP 20 GM/30 ML CUP PO SCH (09:00)
--- NOTE | 2016-11-18 09:25 | HHI.NSPN ---
([place] MACIAS) History Chief Complaint: Unable to obtain due to patient's mental status. (CindyBrennon MACIAS) Interval History 11/09: 80-year-old male who according to his family was going up a step into the house with his cane when he fell backwards, striking the back of his head. He was reportedly unconscious for 10-15 minutes. He then had some shaking in the extremities as he was waking up. He has been somewhat sleepy and a little confused since he woke up at the patient's family states that he is conversing reasonably well with them. He normally is fairly independent, ambulating with a cane and is usually mentally alert with only mild memory loss. Positive emesis reported. Patient has no complaint of headache or neck pain. No complaint of low back or joint pain. 11/10: nursing reports agitated overnight, currently sleeping. f/u CT Head completed, moves all four extremities. son translated - oriented to name and place only. 11/11: Notified by PARVIN Stoner, that Nursing had notified her that the patient's mental status was worse this morning and that she had ordered a stat CT brain. When seen this morning the patient is obtunded and not answering to verbal stimuli. Nursing reports that CT had called and was sending someone up to transport the patient to the scanner. She stated that the patient did receive morphine and hydrocodone during the night for pain because he was agitated. 11/12: The patient has been intubated this morning due to persistent decreased mental status. Possibly a few more episodes of seizure activity reported last evening. He is continuing on Dilantin and Keppra for seizures. 11/13: The patient still is intubated, mechanically ventilated and sedated with midazolam. He does not respond to noxious stimulation. The EEG done yesterday morning did demonstrate seizure activity. Neurology evaluated the patient yesterday and adjusted his anti-epileptic medications. An EEG was done this morning prior to the patient being seen. 11/14: The patient remains intubated. A midazolam drip is still infusing as is a fentanyl drip. A repeat Ct brain this morning demonstrated evolving contusions and haemorrhages. 11/15: The patient is intubated without any sedation. The midazolam and fentanyl infusions were discontinued yesterday. A 3% saline drip continues to infuse. He did have a slight twitching of the eyelids when his name was called but no eye opening. 11/16: This morning the patient opened his eyes to verbal stimulation. He continues to be intubated without any sedation. 11/17/16: Patient remains intubated. He had a dose of intravenous sedation last night for agitation. Remains relatively alert. Positive fever last evening. Some difficulty with hemodynamic instability last evening. 11/18: The patient is on a cooling blanket with ice packs when seen this morning. He continues to be intubated. He does look to whomever is speaking and did follow commands. (Brennon White) System Review Comments Unable to obtain due to patient's mental status. (Brennon White) Exam Results 11/16/16 11/16/16 11/17/16 11/17/16 11/18/16 11/18/16 06:00 18:00 06:00 18:00 06:00 18:00 Intake Total 790 ml 1088 ml 1380 ml 4642 ml 2213 ml Output Total 1550 ml 2800 ml 1950 ml 1350 ml 900 ml Balance -760 ml -1712 ml -570 ml 3292 ml 1313 ml IV Total 479 ml 538 ml 467 ml 3892 ml 1327 ml Tube Feeding 311 ml 430 ml 673 ml 630 ml 586 ml Other 120 ml 240 ml 120 ml 300 ml Output Urine Total 1550 ml 2800 ml 1950 ml 1350 ml 900 ml # Bowel Movements 1 1 0 Vital Signs Date Time Temp Pulse Resp B/P (MAP) Pulse Ox O2 Delivery O2 Flow Rate FiO2 11/18/16 08:08 100 30 11/18/16 08:08 30 11/18/16 06:00 102 11/18/16 04:31 100 30 11/18/16 04:00 122 11/18/16 04:00 30 11/18/16 04:00 102.2 104 26 135/66 (89) 100 11/18/16 02:00 113 11/18/16 01:12 100 30 11/18/16 00:00 30 11/18/16 00:00 97 11/17/16 22:15 100 30 11/17/16 22:00 102 11/17/16 20:00 116 11/17/16 20:00 30 11/17/16 20:00 101.4 116 30 156/102 (120) 100 11/17/16 19:20 100 30 11/17/16 19:00 100 Mechanical Ventilator 30 11/17/16 18:00 110 11/17/16 16:00 30 11/17/16 16:00 105 11/17/16 16:00 100 30 11/17/16 16:00 100.0 105 24 158/69 (98) 100 11/17/16 14:00 78 11/17/16 12:00 109 11/17/16 12:00 30 11/17/16 12:00 101.6 114 24 151/70 (97) 100 11/17/16 11:53 100 30 11/17/16 10:00 109 11/17/16 09:48 30 11/17/16 09:45 30 11/17/16 08:00 109 11/17/16 08:00 30 11/17/16 08:00 99.5 109 24 122/66 (84) 100 11/17/16 07:59 100 30 11/17/16 07:00 100 Mechanical Ventilator 35 11/17/16 06:00 112 11/17/16 04:21 100 35 11/17/16 04:00 112 11/17/16 04:00 30 11/17/16 04:00 103.2 112 26 128/65 (86) 100 11/17/16 02:00 108 11/17/16 00:13 100 30 11/17/16 00:00 104 11/17/16 00:00 99.0 103 20 122/68 (86) 100 11/17/16 00:00 30 11/16/16 22:00 100 11/16/16 20:28 96 40 11/16/16 20:00 30 11/16/16 20:00 106 11/16/16 20:00 100.9 106 17 103/61 (75) 95 11/16/16 19:00 100 Mechanical Ventilator 30 11/16/16 18:00 107 11/16/16 17:02 99 30 11/16/16 16:00 40 11/16/16 16:00 98 11/16/16 16:00 99.6 98 30 145/77 (99) 96 11/16/16 15:57 100 30 11/16/16 14:00 98 11/16/16 12:27 96 30 11/16/16 12:00 40 11/16/16 12:00 99.9 89 28 119/71 (87) 96 11/16/16 12:00 89 11/16/16 10:00 97 11/16/16 09:15 40 11/16/16 09:07 30 11/16/16 08:00 110 11/16/16 08:00 40 11/16/16 08:00 102.2 110 15 144/78 (100) 100 11/16/16 07:58 100 30 11/16/16 07:00 100 Mechanical Ventilator 30 11/16/16 06:00 106 11/16/16 04:34 100 30 11/16/16 04:00 102 11/16/16 04:00 98.9 102 15 143/80 (101) 100 11/16/16 04:00 40 11/16/16 02:00 102 11/16/16 01:09 100 30 11/16/16 00:00 40 11/16/16 00:00 108 11/16/16 00:00 102.0 108 16 139/68 (91) 100 11/15/16 22:00 102 11/15/16 20:08 100 40 11/15/16 20:00 101.9 108 28 140/67 (91) 100 11/15/16 20:00 40 11/15/16 20:00 108 11/15/16 19:00 100 Mechanical Ventilator 40 11/15/16 17:01 100 40 11/15/16 16:00 102.7 104 14 157/67 (97) 100 11/15/16 16:00 40 11/15/16 15:00 40 11/15/16 12:00 40 11/15/16 12:00 101.2 98 14 126/58 (80) 100 11/15/16 11:52 100 40 (Brennon White) Physical Examination GENERAL: Patient remains intubated w/o any sedation. His eyes are open and he does look to whomever speaks. SKIN: Cool to touch but on cooling blanket, dry & intact w/o any evident rashes , ulcerations or lesions. HEENT: Normocephalic. Pupils appear essentially equal reactive. Orally intubated. OGT. NECK: No JVD, trachea midline. CARDIOVASCULAR: S1S2 w/RRR w/o M/G/R, radial & pedal pulses 2+ bilaterally, cap refill < 2 sec, dependent edema. Monitor is sinus tachycardia (low 100s) w/o any evident ectopy. RESPIRATORY: Essentially clear but diminished bilaterally, equal excursion, nonlaboured, intubated and mechanically ventilated. GASTROINTESTINAL: Abdomen distended, nontender, bowel sounds not appreciated, OGT w/enteral feeds. MUSCULOSKELETAL: No evident deformity or clubbing. NEUROLOGICAL: Intubated w/o any sedation. Eyes open and seems to track. PERRLA reactive. Follows commands. He does move his left hand to command but no other response to verbal command or localised noxious stimulation with RUE or BLE. Unable to assess sensation. (Brennon White) Lab, Micro, Other Results Recent Impressions Transcranial Doppler Study Complete 11/17/16 0000 Signed Impressions: Service Date/Time: Thursday, November 17, 2016 10:03 - CONCLUSION: 1. Nondiagnostic examination due to poor transcranial windows. Konstantin Dash MD Chest X-Ray 11/17/16 0000 Signed Impressions: Service Date/Time: Thursday, November 17, 2016 05:42 - CONCLUSION: 1. Support apparatus in satisfactory position. Subsegmental basilar air space disease improved from November 14. Alex Goode MD Laboratory Tests Test 11/15/16 10:45 11/15/16 18:19 11/16/16 04:00 11/16/16 16:27 Sodium Level 151 MEQ/L 150 MEQ/L 151 MEQ/L 149 MEQ/L Vancomycin Level Trough 8.0 MCG/ML Blood Urea Nitrogen 25 MG/DL 25 MG/DL 23 MG/DL Creatinine 0.66 MG/DL 0.71 MG/DL 0.77 MG/DL Random Glucose 244 MG/DL 256 MG/DL 271 MG/DL Calcium Level 7.6 MG/DL 8.1 MG/DL 8.2 MG/DL Potassium Level 3.5 MEQ/L 3.3 MEQ/L 3.3 MEQ/L Chloride Level 115 MEQ/L 115 MEQ/L 111 MEQ/L Carbon Dioxide Level 30.3 MEQ/L 29.9 MEQ/L 31.7 MEQ/L Anion Gap 5 MEQ/L 6 MEQ/L 6 MEQ/L Estimat Glomerular Filtration Rate 116 ML/MIN 106 ML/MIN 97 ML/MIN Serum Osmolality 327 MOSM/KG Phosphorus Level 1.8 MG/DL Magnesium Level 2.3 MG/DL Test 11/17/16 05:30 11/17/16 06:05 11/17/16 06:45 11/18/16 07:15 Blood Urea Nitrogen 30 MG/DL 33 MG/DL Creatinine 1.01 MG/DL 0.76 MG/DL Random Glucose 356 MG/DL 171 MG/DL Total Protein 6.4 GM/DL Albumin 2.0 GM/DL Calcium Level 8.1 MG/DL 8.1 MG/DL Phosphorus Level 3.5 MG/DL Magnesium Level 2.3 MG/DL Alkaline Phosphatase 58 U/L Aspartate Amino Transf (AST/SGOT) 33 U/L Alanine Aminotransferase (ALT/SGPT) 22 U/L Total Bilirubin 0.8 MG/DL Sodium Level 148 MEQ/L 152 MEQ/L Potassium Level 4.2 MEQ/L 5.6 MEQ/L Chloride Level 111 MEQ/L 119 MEQ/L Carbon Dioxide Level 27.0 MEQ/L 23.6 MEQ/L Anion Gap 10 MEQ/L 9 MEQ/L Estimat Glomerular Filtration Rate 71 ML/MIN 98 ML/MIN Blood Gas Puncture Site RT RADIAL Blood Gas Patient Temperature 98.6 Blood Gas HCO3 25 mmol/L Blood Gas Base Excess 1.6 mmol/L Blood Gas Oxygen Saturation 96 % Arterial Blood pH 7.49 Arterial Blood Partial Pressure CO2 32 mmHg Arterial Blood Partial Pressure O2 107 mmHg Arterial Blood Oxygen Content 14.8 Vol % Arterial Blood Carboxyhemoglobin 1.4 % Arterial Blood Methemoglobin 0.8 % Blood Gas Hemoglobin 10.9 G/DL Oxygen Delivery Device VENTILATOR Blood Gas Ventilator Setting PRVC / AC / Blood Gas Inspired Oxygen 35 % White Blood Count 30.3 TH/MM3 Red Blood Count 2.98 MIL/MM3 Hemoglobin 8.8 GM/DL Hematocrit 27.7 % Mean Corpuscular Volume 92.9 FL Mean Corpuscular Hemoglobin 29.5 PG Mean Corpuscular Hemoglobin Concent 31.8 % Red Cell Distribution Width 17.5 % Platelet Count 200 TH/MM3 Mean Platelet Volume 8.4 FL Neutrophils (%) (Auto) 16.1 % Lymphocytes (%) (Auto) 78.7 % Monocytes (%) (Auto) 4.8 % Eosinophils (%) (Auto) 0.2 % Basophils (%) (Auto) 0.2 % Neutrophils # (Auto) 4.9 TH/MM3 Lymphocytes # (Auto) 23.9 TH/MM3 Monocytes # (Auto) 1.5 TH/MM3 Eosinophils # (Auto) 0.1 TH/MM3 Basophils # (Auto) 0.1 TH/MM3 CBC Comment AUTO DIFF Differential Total Cells Counted 100 Neutrophils % (Manual) 19 % Band Neutrophils % 2 % Lymphocytes % 75 % Monocytes % 4 % Neutrophils # (Manual) 6.4 TH/MM3 Differential Comment FINAL DIFF MANUAL Smudge Cells PRESENT Platelet Estimate NORMAL Platelet Morphology Comment NORMAL Ovalocytes 1+ Acanthocytes OCC Random Vancomycin Level 9.8 COMMENT (Brennon White) Medical Decision Making Impression and Plan Impression: 1. Traumatic brain injury 2. Hypertension 3. Diabetes 4. Respiratory failure 5. Seizures Sodium 152 this morning. Worsening leukocytosis but no neutrophilia/bandemia. Patient with poor neurological examination, eyes open & appears to track, minimal motor response to command with left hand, no response to command or noxious stimulation RUE or BLE. Plan: Plan of care discussed with Nursing. Critical care management per Label Designer. Anti-epileptic medications per Neurology. Frequent neuro checks. Continue present diabetic medications with insulin sliding scale. Non-chemical DVT prophylaxis. Ulcer prophylaxis. (Brennon White) Attending Statement The exam, history, and the medical decision-making described in the above note were completed with the assistance of the mid-level provider. I reviewed and agree with the findings presented. I attest that I had a [id number] encounter with the patient on the same day, and personally performed and documented my assessment and findings in the medical record. Continued poor neurologic examination Possibly related to subclinical seizure activity Continuing anticonvulsants (Tony Godfrey MD) Brennon White Nov 18, 2016 09:25 Tony Godfrey MD Dec 15, 2016 05:32
[2016-11-18] MEDS ORDERED: FUROSEMIDE 100 MG/10 ML VIAL IV PUSH ONE (09:30)
[2016-11-18] MEDS: CEFEPIME INJ 2,000 MG in SODIUM CHLORIDE 0.9% INJ 100 ML IV SCH ×2 (09:31→21:01)
[2016-11-18] MEDS: FINASTERIDE 5 MG TAB PO SCH (09:32)
[2016-11-18] MEDS: TOLTERODINE TARTRATE 2 MG CAP LA PO SCH (09:32)
[2016-11-18] MEDS: INSULIN DETEMIR 100 UNITS/ML VIAL SQ SCH ×2 (09:32→21:02)
[2016-11-18] MEDS: LANSOPRAZOLE SOLUTAB 30 MG TAB NG SCH (09:32)
[2016-11-18] MEDS: METOPROLOL TARTRATE 25 MG TAB PO SCH ×2 (09:32→21:00)
[2016-11-18] MEDS: ARTIFICIAL TEARS OPTH SOLN 15 ML BTL EACH EYE SCH ×3 (09:33→17:54)
[2016-11-18] MEDS: CHLORHEXIDINE 0.12% (ORAL KIT) 15 ML CUP MT SCH ×2 (09:33→19:50)
--- NOTE | 2016-11-18 09:35 | HHI.CCPN ---
Subjective Remarks/Hospital Course 80 y/o man fell backwards two days ago and hit the back of his head quite hard. LOC and vomiting followed by general lethargy, but conversant and responsive. I was asked to see him by nurse today for lack of responsiveness about 1100 hours. Unresponsive now and morning head CT demonstrates increased edema surrounding intraparenchymal hemorrhages, unchanged subdural collections. Stat EEG revealed generalized seizure activity. Discussed with Neurosurgery Service and AED started. Patient protects airway well, nonconvulsive. 11/12: Patient unresponsive and looking towards left. On fosphenytoin 100 mg IV every 8 hours and levetiracetam 1000 mg IV twice a day. Will need intubation along with central line placed for 3% hypertonic saline Subjective 11/13: Intubated yesterday severity ongoing seizure activity. EEG revealed cessation of seizure activity with lorazepam injection.. Tolerating tube feeding. No bowel movement. Afebrile. 11/14: Gas exchange acceptable. CT head worrisome. CXR with accumulating effusions. Daughter at bedside. 11/15: Severe neurological injury following backward fall. Medical therapy is maximized regarding prevention of cerebral edema and maintenance of cerebral perfusion. 11/16: Unresponsive. Serum well concentrated. 11/17: He became hemodynamically unstable last night, associated with temp 103. Cultures obtained, abx started. Will remove central line. No neuro improvement. 11/18: Increased activity but not following commands. Remains edematous. Afebrile today. Temp 102.2, await sputum C&S. Objective Vital Signs Date Time Temp Pulse Resp B/P (MAP) Pulse Ox O2 Delivery O2 Flow Rate FiO2 11/18/16 08:08 100 30 11/18/16 06:00 102 11/18/16 04:00 102.2 26 135/66 (89) 11/17/16 19:00 Mechanical Ventilator Intake and Output 11/18/16 11/18/16 11/19/16 08:00 16:00 00:00 Intake Total 2213 ml Output Total 900 ml Balance 1313 ml Result Diagram: 11/17/16 0645 11/18/16 0715 Imaging Last Impressions Chest X-Ray 11/12/16 0813 Signed Impressions: Service Date/Time: Saturday, November 12, 2016 08:15 - CONCLUSION: Right IJ catheter tip at the origin the superior vena cava. No evidence of pneumothorax. Narayan Coulter MD Abdomen X-Ray 11/12/16 0000 Signed Impressions: Service Date/Time: Saturday, November 12, 2016 08:23 - CONCLUSION: 1. Gastric tube in good position. 2. Probable right renal stones. Narayan Coulter MD Head CT 11/11/16 0000 Signed Impressions: Service Date/Time: Friday, November 11, 2016 09:44 - CONCLUSION: 1. Stable multiple intercranial contusions Blaine Shore MD Cervical Spine CT 11/09/161950 Signed Impressions: Service Date/Time: Wednesday, November 09, 2016 20:14 - CONCLUSION: Negative trauma CT. Cj Isidro MD Objective Remarks Gen: 80-year-old male, intubated Neck: Supple. Orally intubated. Right IJ clean dry and intact Lungs: No wheezes, no crackles. Good air movement. Heart: RRR. S1S2. Without murmur, rubs Abdomen: Soft, nondistended, active bowel sounds are appreciated. No guarding, no distention Extremities: Warm, well perfused. Trace edema persists feet. Neuro: Withdraws to pain bilaterally. Does not open eyes, focus or track. Date of Insertion: Nov 12, 2016 Line: Central Venous Catheter Side: Right Location: Internal, Jugular A/P Assessment and Plan Neuro/Psych: Closed head injury - Traumatic Bilateral large intra-parenchymal hemorrhages/right temporal/parietal subdural hematoma and bifrontal contusions Nonconvulsive seizures CT brain 11/11 revealed bi frontal contusions, right temporal/parietal subdural hematoma around 8 mm in subarachnoid hemorrhage EEG 11/11 revealed mild to moderate encephalopathy. Right frontal/central generalized slowing with intermittent sharps waves Repeat EEG 11/12 revealed 2 clinical seizure activities that cessation with 2 mg Ativan IV 1. Repeat EEG today pending Currently on fosphenytoin 100 mg IV every 6 hours. A.m. level pending. Along with levetiracetam 1000 mg IV twice a day. Currently on hydrocodone/acetaminophen 10/325 one to 2 tablets every 4 hours when necessary pain Currently on 3% saline at 20 cc an hour. Serial sodiums Every 6 hours sodiums. Every 6 hours serum OSM. Goal maintain sodium currently 145 - 155 . Goal of serum osm less than 300-320 Neurosurgery/Dr. Godfrey follows Repeat CT head ordered for today -> edema CV: Atrial fibrillation Hypertension Currently normal saline at 84 cc an hour Currently on bisoprolol 5 mill grams by mouth daily/home medication with holding parameters for heart rate and blood pressure Not requiring vasopressors and/or antihypertensives. Goal keep systolic blood pressure less than 150 Resp: Acute respiratory insufficiency secondary to altered mental status Will likely require intubation for airway protection prvc 16/around 550/03/13/ Ventilator bundle Albuterol/ipratropium aerosols every 6 hours with albuterol aerosols every 2 hours when necessary breakthrough dyspnea Spontaneous breathing trials when clinically indicated Follow post intubation x-ray and ABG CXR today with light basilar infiltrates/atelectasis. GI: Continue vital 1.5 goal 65 cc daily with benefit protein Lansoprazole 30 mg by tube for GI prophylaxis Docusate sodium 100 mg twice a day/senna 8.6 mg twice a day for bowel regimen Change TFs to glucerna : BPH Maintain Noriega Currently on tamsulosin 0.4 mg by mouth daily and tolterodine 2 mg by mouth daily - hospital substitution for finasteride 5 mg by mouth daily Endo: Diabetes mellitus - hemoglobin A1c 6.0 Currently on Novulin R sliding scale insulin every 6 hours to maintain euglycemia Holding glimepiride 5 mg by mouth daily. Add levemir bid. Renal: Creatinine currently within normal limits Monitor urine output Accurate I's and O's Heme: Leukocytosis Normocytic anemia Coags within normal limits. A.m. laboratories currently pending. ID: Previously on levofloxacin 500 mg IV daily Cultures 11/17 Vanc, Cefepime started 11/17 Pertinent cultures 11/11 - blood cultures 2 - no growth FEN: Hypophosphatemia MSK: Physical therapy evaluate and treat Access Left IJ CVL day #7 placed 11/12/2016 Prophylaxis - GI - lanosprazole DVT - SCD/pharmacological prophylaxis when okay with neurosurgery Overall impression: Critically ill with impaired pulmonary status in wake of severe head injury. Unable to wean ventilator. Remains febrile to 102.2 and unstable hemodynamics. Critical care 38 mins Dev Loaiza MD Nov 18, 2016 09:35
[2016-11-18] MEDS: RESP: ALBUTEROL 2.5 MG/IPRATROPIUM 0.5 MG NEB (SCH) NEB ×3 (09:39→20:01)
--- NOTE | 2016-11-18 12:01 | RADRPT ---
EXAM DATE/TIME: 11/18/2016 10:32 [place] COMPARISON: CHEST SINGLE AP, November 17, 2016, 5:42. INDICATIONS : Hypoxemia. MEDICAL HISTORY : Cardiovascular disease. Diabetes mellitus type II. A-fib. SURGICAL HISTORY : None. ENCOUNTER: Subsequent ACUITY: 1 week PAIN SCORE: Non-responsive. LOCATION: Bilateral chest FINDINGS: An endotracheal tube has its tip 4 cm above the camryn. A nasogastric tube has its tip below the lucian phragm. Small bilateral pleural effusions are noted. Mild scattered infiltrates are noted bilateral ly and are stable. Degenerative changes and scoliosis of the thoracic spine are noted. The heart is stable. CONCLUSION: 1. Mild scattered stable pulmonary infiltrates. 2. Small bilateral pleural effusions. 3. Endotracheal tube and nasogastric tube in good positions. 4. Degenerative changes and scoliosis of the thoracic spine. Juan Manuel Michel MD on November 18, 2016 at 10:46 Board Certified Radiologist. This report was verified electronically.
[2016-11-18] MEDS: VANCOMYCIN INJ 2,250 MG in SODIUM CHLORID 0.9% 500 ML INJ 500 ML IV SCH (12:58)
[2016-11-18] MEDS: FOSPHENYTOIN INJ 100 MGPE in SODIUM CHLORIDE 0.9% INJ 50 ML IV SCH ×3 (13:58→23:37)
[2016-11-18 15:56] LABS: AUTOMATED NEUTROPHIL # 10.5 TH/MM3 (1.8-7.7); BASOPHIL # 0.1 TH/MM3 (0-0.2); BASOPHIL % 0.3 % (0.0-2.0); EOSINOPHIL # 0.2 TH/MM3 (0-0.4); EOSINOPHIL % 0.8 % (0.0-4.0); HEMATOCRIT 34.5 % (39.0-51.0); LYMPH % 49.9 % (9.0-44.0); LYMPHOCYTE # 12.7 TH/MM3 (1.0-4.8); MEAN CELL VOLUME 94.1 FL (80.0-100.0); MEAN CORPUSCULAR HEMOGLOBIN 30.3 PG (27.0-34.0); MEAN CORPUSCULAR HGB CONC 32.2 % (32.0-36.0); MONO % 7.5 % (0.0-8.0); NEUT % 41.5 % (16.0-70.0); PLATELET COUNT 192 TH/MM3 (150-450); RED BLOOD COUNT 3.67 MIL/MM3 (4.50-5.90); RED CELL DISTRIBUTION WIDTH 18.8 % (11.6-17.2); WHITE BLOOD COUNT 25.4 TH/MM3 (4.0-11.0)
[2016-11-18 15:58] LABS: HEMO FLAGS AUTO DIFF
--- NOTE | 2016-11-18 16:06 | HHI.PR ---
Review/Management Diagnosis s/p closed head injury with cerebral contusion and bilateral subdural hematoma secondary SZ. Plan continue current phenytoin dose and keppra recheck phenytoin level Diagnosis/Plan: Subjective Subjective Comments No acute events reported No recurrent sz--on cerebyx and keppra Active Medications Current Medications Medications (Trade) Dose Ordered Sig/Gregg Route Start Time Stop Time Status Last Admin (Proscar) 5 mg DAILY PO 11/10/16 09:00 11/18/16 09:32 (Flomax) 0.4 mg HS PO 11/10/16 21:00 11/12/16 22:04 (Detrol La) 2 mg DAILY PO 11/10/16 09:00 11/18/16 09:32 Nicardipine HCl 25 mg/Sodium Chloride 260 ml @ 52 mls/hr TITRATE PRN IV 11/09/16 23:45 (D50w (Vial) Inj) 50 ml UNSCH PRN IV 11/09/16 23:45 (Glucagon Inj) 1 mg UNSCH PRN OTHER 11/09/16 23:45 (Ativan Inj) 1 mg Q5M PRN IV 11/12/16 00:45 11/12/16 01:45 (Peridex 0.12% Liq) 15 ml BID@08,20 MT 11/12/16 08:00 11/18/16 09:33 Midazolam HCl 100 ml @ 2 mls/hr TITRATE PRN IV 11/12/16 07:15 11/13/16 08:49 Fentanyl Citrate 250 ml @ 5 mls/hr TITRATE PRN IV 11/12/16 07:15 11/13/16 23:20 (NS Flush) DAILY IVF 11/12/16 09:00 11/17/16 07:15 (NS Flush) UNSCH PRN IVF 11/12/16 08:15 (Prevacid Odt) 30 mg DAILY NG 11/12/16 09:00 11/18/16 09:32 (Colace Liq) 100 mg Q12HR PO 11/12/16 09:00 11/17/16 21:13 (Senna Liq) 8.8 mg BID NG 11/12/16 09:00 11/17/16 21:13 (NS Flush) 2 ml UNSCH PRN IV FLUSH 11/12/16 08:30 (NS Flush) 2 ml BID IV FLUSH 11/12/16 09:00 11/17/16 21:13 (Tears Naturale Opth Soln) 1 drop TID EACH EYE 11/12/16 09:00 11/18/16 13:00 (Zofran Inj) 4 mg Q6H PRN IV 11/12/16 08:30 11/15/16 05:45 (Albuterol Neb) 2.5 mg Q2HR NEB PRN INH 11/12/16 08:30 11/17/16 20:54 (Dulcolax Supp) 10 mg DAILY PRN RECTAL 11/12/16 08:30 (Lactulose Liq) 30 ml DAILY PRN PO 11/12/16 08:30 Potassium Chloride 100 ml @ 50 mls/hr Q2H PRN IV-CENTRAL 11/12/16 08:30 11/13/16 08:49 Potassium Chloride 100 ml @ 50 mls/hr Q2H PRN IV 11/12/16 08:30 (K-Lyte Cl Eff) 50 meq UNSCH PRN PO 11/12/16 08:30 Potassium Chloride 100 ml @ 25 mls/hr UNSCH PRN IV-CENTRAL 11/12/16 08:30 11/16/16 17:47 Potassium Chloride 100 ml @ 50 mls/hr Q2H PRN IV 11/12/16 08:30 11/16/16 05:34 Magnesium Sulfate 4 gm/Sodium Chloride 100 ml @ 50 mls/hr UNSCH PRN IV 11/12/16 08:30 (Mag-Ox) 800 mg UNSCH PRN PO 11/12/16 08:30 Magnesium Sulfate 2 gm/Sodium Chloride 100 ml @ 50 mls/hr UNSCH PRN IV 11/12/16 08:30 (K-Phos) 2,000 mg Q4H PRN PO 11/12/16 08:30 11/13/16 10:35 Sodium Phosphate 30 mmol/Sodium Chloride 250 ml @ 42 mls/hr UNSCH PRN IV 11/12/16 08:30 11/16/16 22:59 (K-Phos) 2,000 mg UNSCH PRN PO/TUBE 11/12/16 08:30 Potassium Phosphate 30 mmol/ Sodium Chloride 260 ml @ 42 mls/hr UNSCH PRN IV 11/12/16 08:30 11/14/16 06:15 (Tylenol 650 Mg/ 20 ml Liq) 650 mg Q6H PRN NG 11/12/16 08:45 11/18/16 04:02 Levetriacetam 100 ml @ 400 mls/hr Q8HR IV 11/12/16 22:00 11/18/16 13:00 (Miralax) 17 gm BID OG-TUBE 11/13/16 21:00 11/17/16 21:13 (Lactulose Liq) 30 ml DAILY PO 11/14/16 09:00 11/17/16 08:58 (Glycerin Adult Supp) 2 gm BID PRN RECTAL 11/13/16 15:00 (Apresoline Inj) 20 mg Q4H PRN IV PUSH 11/14/16 02:15 11/14/16 03:07 (Lopressor Inj) 5 mg Q6H PRN IV PUSH 11/14/16 03:30 11/18/16 04:02 (Lopressor) 25 mg Q12HR PO 11/16/16 09:30 11/18/16 09:32 (Levemir Inj) 12 units Q12HR SQ 11/17/16 09:00 11/18/16 09:32 (NovoLOG SUPPLEMENTAL SCALE) 1 Q6H SQ 11/17/16 09:00 11/18/16 14:47 Pharmacy Profile Note 0 ml @ 0 mls/hr UNSCH OTHER 11/17/16 08:15 Cefepime HCl 2000 mg/Sodium Chloride 100 ml @ 200 mls/hr Q12H IV 11/17/16 09:00 11/18/16 09:31 (Flagyl) 500 mg Q8HR PO 11/17/16 09:00 11/18/16 13:00 (Duoneb Neb) 1 ampule Q6HR NEB NEB 11/18/16 10:00 11/18/16 09:39 Vancomycin HCl 2250 mg/Sodium Chloride 522.5 ml @ 250 mls/hr Q18H IV 11/18/16 13:00 11/18/16 12:58 Miscellaneous Information SPECIFIC LAB TO BE DRAWN:VANCO TROUGH DATE TO... ONCE ONCE .XX 11/20/16 00:45 11/20/16 00:46 Fosphenytoin Sodium 100 mgpe/ Sodium Chloride 52 ml @ 208 mls/hr Q6HR IV 11/18/16 13:00 11/18/16 13:58 Allergies Allergies Coded Allergies Penicillins (Verified Allergy, Unknown, 11/09/16) Exam I&O / VS Vital Signs Date Time Temp Pulse Resp B/P (MAP) Pulse Ox O2 Delivery O2 Flow Rate FiO2 11/18/16 14:00 108 11/18/16 12:00 100.0 105 30 134/67 (89) 99 11/18/16 12:00 30 11/18/16 12:00 105 11/18/16 11:31 100 30 11/18/16 10:00 104 11/18/16 09:00 30 11/18/16 08:08 100 30 11/18/16 08:08 30 11/18/16 08:00 108 11/18/16 08:00 100.2 108 30 145/71 (95) 100 11/18/16 08:00 30 11/18/16 07:00 100 Mechanical Ventilator 30 11/18/16 06:00 102 11/18/16 04:31 100 30 11/18/16 04:00 122 11/18/16 04:00 30 11/18/16 04:00 102.2 104 26 135/66 (89) 100 11/18/16 02:00 113 11/18/16 01:12 100 30 11/18/16 00:00 30 11/18/16 00:00 97 11/17/16 22:15 100 30 11/17/16 22:00 102 11/17/16 20:00 116 11/17/16 20:00 30 11/17/16 20:00 101.4 116 30 156/102 (120) 100 11/17/16 19:20 100 30 11/17/16 19:00 100 Mechanical Ventilator 30 11/17/16 18:00 110 Exam Comments on ventilator. more responsive today. Open eyes to voice. does not follow commands. PERRL MOTOR--no focal deficit. No myoclonus or clinical Sz seen at this time Objective Micro and Labs Laboratory Tests Test 11/18/16 07:15 11/18/16 14:21 Blood Urea Nitrogen 33 Creatinine 0.76 Random Glucose 171 Calcium Level 8.1 Sodium Level 152 Potassium Level 5.6 Chloride Level 119 Carbon Dioxide Level 23.6 Anion Gap 9 Estimat Glomerular Filtration Rate 98 Random Vancomycin Level 9.8 White Blood Count 25.4 Red Blood Count 3.67 Hemoglobin 11.1 Hematocrit 34.5 Mean Corpuscular Volume 94.1 Mean Corpuscular Hemoglobin 30.3 Mean Corpuscular Hemoglobin Concent 32.2 Red Cell Distribution Width 18.8 Platelet Count 192 Mean Platelet Volume 9.0 Neutrophils (%) (Auto) 41.5 Lymphocytes (%) (Auto) 49.9 Monocytes (%) (Auto) 7.5 Eosinophils (%) (Auto) 0.8 Basophils (%) (Auto) 0.3 Neutrophils # (Auto) 10.5 Lymphocytes # (Auto) 12.7 Monocytes # (Auto) 1.9 Eosinophils # (Auto) 0.2 Basophils # (Auto) 0.1 CBC Comment AUTO DIFF Date/Time Source Procedure Growth Status 11/18/16 07:15 Blood Peripheral Aerobic Blood Culture Pending Received 11/18/16 07:15 Blood Peripheral Anaerobic Blood Culture Pending Received 11/17/16 08:50 Sputum Endotracheal Gram Stain - Final Resulted 11/17/16 08:50 Sputum Endotracheal Sputum Culture - Preliminary MODERATE GROWTH NORMAL RESPIRATORY FL... Resulted 11/17/16 08:50 Urine Catheterized Urine Urine Culture - Preliminary NO GROWTH IN 24 HOURS. Resulted Omer Nguyen PhD Nov 18, 2016 16:06
[2016-11-18 16:45] LABS: BANDS 3 % (0-6); NEUTROPHIL # MANUAL DIFF 13.7 TH/MM3 (1.8-7.7); POLYS (SEG NEUTROPHILS) 51 % (16-70); WBC DIFF SAMPLE 100
[2016-11-18 16:47] LABS: KERATOCYTES 1+ (NORMAL); OVALOCYTES 1+ (NORMAL); PLATELET ESTIMATE SMEAR NORMAL (NORMAL); PLATELET MORPHOLOGY NORMAL (NORMAL); SCAN/DIFF FINAL DIFF MANUAL; SMUDGE CELLS PRESENT PRESENT
[2016-11-18] MEDS: TAMSULOSIN HCL 0.4 MG CAP PO SCH (21:00)
[2016-11-18 21:30] LABS: BICARBONATE 24.5 MEQ/L (21.0-32.0); POTASSIUM 4.1 MEQ/L (3.5-5.1)
[2016-11-19] VITALS (17 sets, daily range): BP systolic 111–147; BP diastolic 56–72; PULSE 94–133; RESP 22–35; TEMP 98.4–100; O2SAT 96–100
[2016-11-19] MEDS ORDERED: METOPROLOL TARTRATE 5 MG/5 ML VIAL IV PUSH ONE (00:45)
[2016-11-19] MEDS ORDERED: DILTIAZEM HCL 25 MG/5 ML VIAL IV PUSH ONE (00:45)
[2016-11-19] MEDS ORDERED: DILTIAZEM INJ 125 MG in SODIUM CHLORIDE 0.9% INJ 100 ML IV PRN (00:45)
[2016-11-19] MEDS ORDERED: DIGOXIN 0.5 MG/2 ML VIAL IV PUSH ONE (00:45)
[2016-11-19] MEDS: INSULIN ASPART SUPPLEMENTAL SCALE SQ SCH ×4 (03:00→20:53)
[2016-11-19] MEDS: RESP: ALBUTEROL 2.5 MG/IPRATROPIUM 0.5 MG NEB (SCH) NEB ×4 (03:42→21:00)
[2016-11-19] MEDS: FOSPHENYTOIN INJ 100 MGPE in SODIUM CHLORIDE 0.9% INJ 50 ML IV SCH ×4 (05:21→23:48)
[2016-11-19] MEDS: metroNIDAZOLE 500 MG TAB PO SCH ×3 (05:21→21:33)
[2016-11-19] MEDS: levETIRAcetam 1000 MG INJ 100 ML IV SCH ×3 (05:46→22:17)
[2016-11-19] MEDS: VANCOMYCIN INJ 2,250 MG in SODIUM CHLORID 0.9% 500 ML INJ 500 ML IV SCH (06:05)
[2016-11-19] MEDS: CHLORHEXIDINE 0.12% (ORAL KIT) 15 ML CUP MT SCH ×2 (08:00→19:31)
[2016-11-19] MEDS: ARTIFICIAL TEARS OPTH SOLN 15 ML BTL EACH EYE SCH ×3 (08:50→18:00)
[2016-11-19] MEDS: DOCUSATE SODIUM 100 MG/10 ML UDC PO SCH ×2 (09:00→20:29)
[2016-11-19] MEDS: POLYETHYLENE GLYCOL 17 GM PKG OG-TUBE SCH ×2 (09:00→20:53)
[2016-11-19] MEDS: INSULIN DETEMIR 100 UNITS/ML VIAL SQ SCH ×2 (09:00→20:31)
[2016-11-19] MEDS: LACTULOSE SYRUP 20 GM/30 ML CUP PO SCH (09:00)
[2016-11-19] MEDS: SODIUM CHLORIDE 0.9% FLUSH 10 ML FLUSH IVF SCH (09:00)
[2016-11-19] MEDS: SODIUM CHLORIDE 0.9% FLUSH 10 ML FLUSH IV FLUSH SCH ×2 (09:00→20:31)
[2016-11-19] MEDS: SENNOSIDES SYRUP 8.8 MG/5 ML CUP NG SCH ×2 (09:00→20:29)
[2016-11-19] MEDS: LANSOPRAZOLE SOLUTAB 30 MG TAB NG SCH (09:06)
[2016-11-19] MEDS: TOLTERODINE TARTRATE 2 MG CAP LA PO SCH (09:06)
[2016-11-19] MEDS: METOPROLOL TARTRATE 25 MG TAB PO SCH ×2 (09:06→20:29)
[2016-11-19] MEDS: FINASTERIDE 5 MG TAB PO SCH (09:06)
[2016-11-19] MEDS: CEFEPIME INJ 2,000 MG in SODIUM CHLORIDE 0.9% INJ 100 ML IV SCH ×2 (09:07→20:30)
--- NOTE | 2016-11-19 10:25 | HHI.CCPN ---
Subjective Remarks/Hospital Course 80 y/o man fell backwards two days ago and hit the back of his head quite hard. LOC and vomiting followed by general lethargy, but conversant and responsive. I was asked to see him by nurse today for lack of responsiveness about 1100 hours. Unresponsive now and morning head CT demonstrates increased edema surrounding intraparenchymal hemorrhages, unchanged subdural collections. Stat EEG revealed generalized seizure activity. Discussed with Neurosurgery Service and AED started. Patient protects airway well, nonconvulsive. 11/12: Patient unresponsive and looking towards left. On fosphenytoin 100 mg IV every 8 hours and levetiracetam 1000 mg IV twice a day. Will need intubation along with central line placed for 3% hypertonic saline Subjective 11/13: Intubated yesterday severity ongoing seizure activity. EEG revealed cessation of seizure activity with lorazepam injection.. Tolerating tube feeding. No bowel movement. Afebrile. 11/14: Gas exchange acceptable. CT head worrisome. CXR with accumulating effusions. Daughter at bedside. 11/15: Severe neurological injury following backward fall. Medical therapy is maximized regarding prevention of cerebral edema and maintenance of cerebral perfusion. 11/16: Unresponsive. Serum well concentrated. 11/17: He became hemodynamically unstable last night, associated with temp 103. Cultures obtained, abx started. Will remove central line. No neuro improvement. 11/18: Increased activity but not following commands. Remains edematous. Afebrile today. Temp 102.2, await sputum C&S. 11/19: Breathing with more comfort but tachypneic. Gas exchange good. Will try to extubate - 50/50 chance of success. Blood with 2/4 GPC, on vancomycin. Objective Vital Signs Date Time Temp Pulse Resp B/P (MAP) Pulse Ox O2 Delivery O2 Flow Rate FiO2 11/19/16 09:53 30 11/19/16 08:43 100 11/19/16 08:00 102 11/19/16 08:00 98.7 24 146/69 (94) 11/19/16 07:00 Mechanical Ventilator Intake and Output 11/19/16 11/19/16 11/20/16 08:00 16:00 00:00 Intake Total 1156 ml Output Total 475.0 ml Balance 681.0 ml Result Diagram: 11/18/16 1421 11/18/162034 Other Results Microbiology Date/Time Source Procedure Growth Status 11/17/16 08:50 Urine Catheterized Urine Urine Culture - Final NO GROWTH IN 48 HOURS. Complete Imaging Last Impressions Chest X-Ray 11/12/16 0813 Signed Impressions: Service Date/Time: Saturday, November 12, 2016 08:15 - CONCLUSION: Right IJ catheter tip at the origin the superior vena cava. No evidence of pneumothorax. Narayan Coulter MD Abdomen X-Ray 11/12/16 0000 Signed Impressions: Service Date/Time: Saturday, November 12, 2016 08:23 - CONCLUSION: 1. Gastric tube in good position. 2. Probable right renal stones. Narayan Coulter MD Head CT 11/11/16 0000 Signed Impressions: Service Date/Time: Friday, November 11, 2016 09:44 - CONCLUSION: 1. Stable multiple intercranial contusions Blaine Shore MD Cervical Spine CT 11/09/161950 Signed Impressions: Service Date/Time: Wednesday, November 09, 2016 20:14 - CONCLUSION: Negative trauma CT. Cj Isidro MD Objective Remarks Gen: 80-year-old male, intubated Neck: Supple. Orally intubated. Right IJ clean dry and intact Lungs: No wheezes, no crackles. Good air movement. Heart: RRR. S1S2. Without murmur, rubs Abdomen: Soft, nondistended, active bowel sounds are appreciated. No guarding, no distention Extremities: Warm, well perfused. Trace edema persists feet. Neuro: Opens eyes, tracks, follows commands Date of Insertion: Nov 12, 2016 Line: Central Venous Catheter Side: Right Location: Internal, Jugular A/P Assessment and Plan Neuro/Psych: Closed head injury - Traumatic Bilateral large intra-parenchymal hemorrhages/right temporal/parietal subdural hematoma and bifrontal contusions Nonconvulsive seizures CT brain 11/11 revealed bi frontal contusions, right temporal/parietal subdural hematoma around 8 mm in subarachnoid hemorrhage EEG 11/11 revealed mild to moderate encephalopathy. Right frontal/central generalized slowing with intermittent sharps waves Repeat EEG 11/12 revealed 2 clinical seizure activities that cessation with 2 mg Ativan IV 1. Repeat EEG today pending Currently on fosphenytoin 100 mg IV every 6 hours. A.m. level pending. Along with levetiracetam 1000 mg IV twice a day. Currently on hydrocodone/acetaminophen 10/325 one to 2 tablets every 4 hours when necessary pain Currently on 3% saline at 20 cc an hour. Serial sodiums Every 6 hours sodiums. Every 6 hours serum OSM. Goal maintain sodium currently 145 - 155 . Goal of serum osm less than 300-320 Neurosurgery/Dr. Godfrey follows Repeat CT head ordered for today -> edema CV: Atrial fibrillation Hypertension Currently normal saline at 84 cc an hour Currently on bisoprolol 5 mill grams by mouth daily/home medication with holding parameters for heart rate and blood pressure Not requiring vasopressors and/or antihypertensives. Goal keep systolic blood pressure less than 150 Resp: Acute respiratory insufficiency secondary to altered mental status Will likely require intubation for airway protection [facility] 16/around 550/03/13/49 Ventilator bundle Albuterol/ipratropium aerosols every 6 hours with albuterol aerosols every 2 hours when necessary breakthrough dyspnea Spontaneous breathing trials when clinically indicated Follow post intubation x-ray and ABG CXR today with light basilar infiltrates/atelectasis. GI: Continue vital 1.5 goal 65 cc daily with benefit protein Lansoprazole 30 mg by tube for GI prophylaxis Docusate sodium 100 mg twice a day/senna 8.6 mg twice a day for bowel regimen Change TFs to glucerna : BPH Maintain Noriega Currently on tamsulosin 0.4 mg by mouth daily and tolterodine 2 mg by mouth daily - hospital substitution for finasteride 5 mg by mouth daily Endo: Diabetes mellitus - hemoglobin A1c 6.0 Currently on Novulin R sliding scale insulin every 6 hours to maintain euglycemia Holding glimepiride 5 mg by mouth daily. Add levemir bid. Renal: Creatinine currently within normal limits Monitor urine output Accurate I's and O's Heme: Leukocytosis Normocytic anemia Coags within normal limit ID: Previously on levofloxacin 500 mg IV daily Cultures 11/17 Vanc, Cefepime started 11/17 Pertinent cultures 11/11 - blood cultures 2 - no growth FEN: Hypophosphatemia MSK: Physical therapy evaluate and treat Access Left IJ CVL day #7 placed 11/12/2016 -> removed. Prophylaxis - GI - lanosprazole DVT - SCD/pharmacological prophylaxis when okay with neurosurgery Overall impression: Critically ill with impaired pulmonary status in wake of severe head injury. Will try to extubate. Dev Loaiza MD Nov 19, 2016 10:24
[2016-11-19 10:57] LABS: BASOPHIL # 0.1 TH/MM3 (0-0.2); BASOPHIL % 0.4 % (0.0-2.0); EOSINOPHIL # 0.3 TH/MM3 (0-0.4); HEMATOCRIT 27.7 % (39.0-51.0); LYMPH % 42.2 % (9.0-44.0); MEAN CORPUSCULAR HEMOGLOBIN 30.5 PG (27.0-34.0); MEAN CORPUSCULAR HGB CONC 33.5 % (32.0-36.0); MONO % 6.5 % (0.0-8.0); NEUT % 48.9 % (16.0-70.0); PLATELET COUNT 203 TH/MM3 (150-450); RED BLOOD COUNT 3.05 MIL/MM3 (4.50-5.90); RED CELL DISTRIBUTION WIDTH 17.8 % (11.6-17.2); WHITE BLOOD COUNT 14.2 TH/MM3 (4.0-11.0)
[2016-11-19 10:59] LABS: HEMO FLAGS AUTO DIFF
[2016-11-19 11:07] LABS: BICARBONATE 28.2 MEQ/L (21.0-32.0); MAGNESIUM 2.3 MG/DL (1.5-2.5); POTASSIUM 3.9 MEQ/L (3.5-5.1)
[2016-11-19 11:27] LABS: CALCIUM-PROTEIN CORRECTED 7.3 MG/DL (8.5-10.1)
[2016-11-19 13:13] LABS: BANDS 2 % (0-6); CORRECTED NUCLEATED RBC 1 /100 WBC (0-0); EOSINOPHILS 2 % (0-4); NEUTROPHIL # MANUAL DIFF 7.7 TH/MM3 (1.8-7.7); POLYS (SEG NEUTROPHILS) 52 % (16-70); WBC DIFF SAMPLE 100
[2016-11-19 13:14] LABS: SMUDGE CELLS PRESENT PRESENT
[2016-11-19 13:15] LABS: ACANTHOCYTES OCC (NORMAL); PLATELET ESTIMATE SMEAR NORMAL (NORMAL); PLATELET MORPHOLOGY NORMAL (NORMAL); SCAN/DIFF FINAL DIFF MANUAL
[2016-11-19 13:16] LABS: OVALOCYTES 1+ (NORMAL)
[2016-11-19] MEDS: SODIUM PHOSPHATE INJ 30 MMOL in SODIUM CHLOR 0.9% 250 ML INJ 240 ML IV PRN (13:58)
--- NOTE | 2016-11-19 15:07 | HHI.NSPN ---
(Brennon White) History Chief Complaint: Tired (Brennon White) Interval History 11/09: 80-year-old male who according to his family was going up a step into the house with his cane when he fell backwards, striking the back of his head. He was reportedly unconscious for 10-15 minutes. He then had some shaking in the extremities as he was waking up. He has been somewhat sleepy and a little confused since he woke up at the patient's family states that he is conversing reasonably well with them. He normally is fairly independent, ambulating with a cane and is usually mentally alert with only mild memory loss. Positive emesis reported. Patient has no complaint of headache or neck pain. No complaint of low back or joint pain. 11/10: nursing reports agitated overnight, currently sleeping. f/u CT Head completed, moves all four extremities. son translated - oriented to name and place only. 11/11: Notified by PARVIN Stoner, that Nursing had notified her that the patient's mental status was worse this morning and that she had ordered a stat CT brain. When seen this morning the patient is obtunded and not answering to verbal stimuli. Nursing reports that CT had called and was sending someone up to transport the patient to the scanner. She stated that the patient did receive morphine and hydrocodone during the night for pain because he was agitated. 11/12: The patient has been intubated this morning due to persistent decreased mental status. Possibly a few more episodes of seizure activity reported last evening. He is continuing on Dilantin and Keppra for seizures. 11/13: The patient still is intubated, mechanically ventilated and sedated with midazolam. He does not respond to noxious stimulation. The EEG done yesterday morning did demonstrate seizure activity. Neurology evaluated the patient yesterday and adjusted his anti-epileptic medications. An EEG was done this morning prior to the patient being seen. 11/14: The patient remains intubated. A midazolam drip is still infusing as is a fentanyl drip. A repeat Ct brain this morning demonstrated evolving contusions and haemorrhages. 11/15: The patient is intubated without any sedation. The midazolam and fentanyl infusions were discontinued yesterday. A 3% saline drip continues to infuse. He did have a slight twitching of the eyelids when his name was called but no eye opening. 11/16: This morning the patient opened his eyes to verbal stimulation. He continues to be intubated without any sedation. 11/17/16: Patient remains intubated. He had a dose of intravenous sedation last night for agitation. Remains relatively alert. Positive fever last evening. Some difficulty with hemodynamic instability last evening. 11/18: The patient is on a cooling blanket with ice packs when seen this morning. He continues to be intubated. He does look to whomever is speaking and did follow commands. 11/19: The patient is asleep but awakens on his own. He was extubated this morning and is now on a nasal cannula. He follows commands and moves all his extremities to a degree. He does tell his daughter that he is tired. The family reports earlier that the patient did ask where his and son were by name. (Brennon White) System Review Comments Unable to obtain due to patient's mental status. (Brennon White) Exam Results 11/17/16 11/17/16 11/18/16 11/18/16 11/19/16 11/19/16 06:00 18:00 06:00 18:00 06:00 18:00 Intake Total 1380 ml 4642 ml 2213 ml 1084.5 ml 1256 ml 152 ml Output Total 1950 ml 1350 ml 900 ml 3250 ml 475 ml 0 ml Balance -570 ml 3292 ml 1313 ml -2165.5 ml 781 ml 152 ml IV Total 467 ml 3892 ml 1327 ml 1084.5 ml 356 ml 152 ml Tube Feeding 673 ml 630 ml 586 ml 600 ml Other 240 ml 120 ml 300 ml 300 ml Output Urine Total 1950 ml 1350 ml 900 ml 3250 ml 475 ml Tube Feeding Residual Discard 0 ml 0 ml # Bowel Movements 1 0 1 0 Vital Signs Date Time Temp Pulse Resp B/P (MAP) Pulse Ox O2 Delivery O2 Flow Rate FiO2 11/19/16 14:00 100 11/19/16 12:00 98.9 98 32 119/56 (77) 100 11/19/16 12:00 105 11/19/16 10:35 100 Nasal Cannula 4.00 11/19/16 10:35 100 Nasal Cannula 4 11/19/16 10:00 98 11/19/16 09:53 Nasal Cannula 30 11/19/16 09:10 30 11/19/16 08:43 100 30 11/19/16 08:00 102 11/19/16 08:00 98.7 102 24 146/69 (94) 98 11/19/16 08:00 30 11/19/16 07:00 100 Mechanical Ventilator 30 11/19/16 06:00 94 11/19/16 04:40 96 30 11/19/16 04:00 30 11/19/16 04:00 99 11/19/16 04:00 99.5 100 28 147/72 (97) 100 11/19/16 02:00 96 11/19/16 01:23 100 30 11/19/16 00:00 30 11/19/16 00:00 100.0 133 29 111/69 (83) 100 11/19/16 00:00 133 11/18/16 23:30 130 11/18/16 23:00 100 30 11/18/16 22:18 100 30 11/18/16 22:00 100 11/18/16 21:35 100 30 11/18/16 20:00 30 11/18/16 20:00 98.2 104 28 127/60 (82) 100 11/18/16 20:00 104 11/18/16 19:16 100 30 11/18/16 19:00 100 Mechanical Ventilator 30 11/18/16 18:00 103 11/18/16 16:13 98 30 11/18/16 16:00 30 11/18/16 16:00 102 11/18/16 16:00 98.7 102 30 135/80 (98) 99 11/18/16 14:00 108 11/18/16 12:00 100.0 105 30 134/67 (89) 99 11/18/16 12:00 30 11/18/16 12:00 105 11/18/16 11:31 100 30 11/18/16 10:00 104 11/18/16 09:00 30 11/18/16 08:08 100 30 11/18/16 08:08 30 11/18/16 08:00 108 11/18/16 08:00 100.2 108 30 145/71 (95) 100 11/18/16 08:00 30 11/18/16 07:00 100 Mechanical Ventilator 30 11/18/16 06:00 102 11/18/16 04:31 100 30 11/18/16 04:00 122 11/18/16 04:00 30 11/18/16 04:00 102.2 104 26 135/66 (89) 100 11/18/16 02:00 113 11/18/16 01:12 100 30 11/18/16 00:00 30 11/18/16 00:00 97 11/17/16 22:15 100 30 11/17/16 22:00 102 11/17/16 20:00 116 11/17/16 20:00 30 11/17/16 20:00 101.4 116 30 156/102 (120) 100 11/17/16 19:20 100 30 11/17/16 19:00 100 Mechanical Ventilator 30 11/17/16 18:00 110 11/17/16 16:00 30 11/17/16 16:00 105 11/17/16 16:00 100 30 11/17/16 16:00 100.0 105 24 158/69 (98) 100 11/17/16 14:00 78 11/17/16 12:00 109 11/17/16 12:00 30 11/17/16 12:00 101.6 114 24 151/70 (97) 100 11/17/16 11:53 100 30 11/17/16 10:00 109 11/17/16 09:48 30 11/17/16 09:45 30 11/17/16 08:00 109 11/17/16 08:00 30 11/17/16 08:00 99.5 109 24 122/66 (84) 100 11/17/16 07:59 100 30 11/17/16 07:00 100 Mechanical Ventilator 35 11/17/16 06:00 112 11/17/16 04:21 100 35 11/17/16 04:00 112 11/17/16 04:00 30 11/17/16 04:00 103.2 112 26 128/65 (86) 100 11/17/16 02:00 108 11/17/16 00:13 100 30 11/17/16 00:00 104 11/17/16 00:00 99.0 103 20 122/68 (86) 100 11/17/16 00:00 30 11/16/16 22:00 100 11/16/16 20:28 96 40 11/16/16 20:00 30 11/16/16 20:00 106 11/16/16 20:00 100.9 106 17 103/61 (75) 95 11/16/16 19:00 100 Mechanical Ventilator 30 11/16/16 18:00 107 11/16/16 17:02 99 30 11/16/16 16:00 40 11/16/16 16:00 98 11/16/16 16:00 99.6 98 30 145/77 (99) 96 11/16/16 15:57 100 30 (Brennon White) Physical Examination GENERAL: Patient is asleep but awakens on his own. He is now extubated. He will look at whomever is speaking to him. SKIN: Cool, dry & intact w/o any evident rashes, ulcerations or lesions. HEENT: Normocephalic. Pupils appear essentially equal reactive. NECK: No JVD, trachea midline. CARDIOVASCULAR: S1S2 w/RRR w/o M/G/R, radial & pedal pulses 2+ bilaterally, cap refill < 2 sec, dependent edema. Monitor is sinus rhythm to sinus tachycardia ( low 100s) w/o any evident ectopy. RESPIRATORY: Slightly coarse & diminished bilaterally, equal excursion, mildly laboured, on NC. GASTROINTESTINAL: Abdomen distended, nontender, bowel sounds not appreciated. MUSCULOSKELETAL: No evident deformity or clubbing. NEUROLOGICAL: Asleep but awakens on own, drowsy, keeps drifting back off to sleep. GCS 14 (E4 V4 M6). Speaking in a few words, voice weak. Opens eyes and appears to track. PERRLA reactive. Follows commands. He does move the LUE spontaneously. He has some spontaneous movement of the LLE. He does have trace movement of the RUE & RLE to command. It appears that the patient is trying to reposition himself. Unable to assess sensation. (Brennon White) Lab, Micro, Other Results Recent Impressions Chest X-Ray 11/18/16 0000 Signed Impressions: Service Date/Time: Friday, November 18, 2016 10:32 - CONCLUSION: 1. Mild scattered stable pulmonary infiltrates. 2. Small bilateral pleural effusions. 3. Endotracheal tube and nasogastric tube in good positions. 4. Degenerative changes and scoliosis of the thoracic spine. Juan Manuel Michel MD Transcranial Doppler Study Complete 11/17/16 0000 Signed Impressions: Service Date/Time: Thursday, November 17, 2016 10:03 - CONCLUSION: 1. Nondiagnostic examination due to poor transcranial windows. Konstantin Dash MD Chest X-Ray 11/17/16 0000 Signed Impressions: Service Date/Time: Thursday, November 17, 2016 05:42 - CONCLUSION: 1. Support apparatus in satisfactory position. Subsegmental basilar air space disease improved from November 14. Alex Goode MD Laboratory Tests Test 11/16/16 16:27 11/17/16 05:30 11/17/16 06:05 11/17/16 06:45 Blood Urea Nitrogen 23 MG/DL 30 MG/DL Creatinine 0.77 MG/DL 1.01 MG/DL Random Glucose 271 MG/DL 356 MG/DL Calcium Level 8.2 MG/DL 8.1 MG/DL Sodium Level 149 MEQ/L 148 MEQ/L Potassium Level 3.3 MEQ/L 4.2 MEQ/L Chloride Level 111 MEQ/L 111 MEQ/L Carbon Dioxide Level 31.7 MEQ/L 27.0 MEQ/L Anion Gap 6 MEQ/L 10 MEQ/L Estimat Glomerular Filtration Rate 97 ML/MIN 71 ML/MIN Phosphorus Level 1.8 MG/DL 3.5 MG/DL Magnesium Level 2.3 MG/DL 2.3 MG/DL Total Protein 6.4 GM/DL Albumin 2.0 GM/DL Alkaline Phosphatase 58 U/L Aspartate Amino Transf (AST/SGOT) 33 U/L Alanine Aminotransferase (ALT/SGPT) 22 U/L Total Bilirubin 0.8 MG/DL Blood Gas Puncture Site RT RADIAL Blood Gas Patient Temperature 98.6 Blood Gas HCO3 25 mmol/L Blood Gas Base Excess 1.6 mmol/L Blood Gas Oxygen Saturation 96 % Arterial Blood pH 7.49 Arterial Blood Partial Pressure CO2 32 mmHg Arterial Blood Partial Pressure O2 107 mmHg Arterial Blood Oxygen Content 14.8 Vol % Arterial Blood Carboxyhemoglobin 1.4 % Arterial Blood Methemoglobin 0.8 % Blood Gas Hemoglobin 10.9 G/DL Oxygen Delivery Device VENTILATOR Blood Gas Ventilator Setting PRVC / AC / Blood Gas Inspired Oxygen 35 % White Blood Count 30.3 TH/MM3 Red Blood Count 2.98 MIL/MM3 Hemoglobin 8.8 GM/DL Hematocrit 27.7 % Mean Corpuscular Volume 92.9 FL Mean Corpuscular Hemoglobin 29.5 PG Mean Corpuscular Hemoglobin Concent 31.8 % Red Cell Distribution Width 17.5 % Platelet Count 200 TH/MM3 Mean Platelet Volume 8.4 FL Neutrophils (%) (Auto) 16.1 % Lymphocytes (%) (Auto) 78.7 % Monocytes (%) (Auto) 4.8 % Eosinophils (%) (Auto) 0.2 % Basophils (%) (Auto) 0.2 % Neutrophils # (Auto) 4.9 TH/MM3 Lymphocytes # (Auto) 23.9 TH/MM3 Monocytes # (Auto) 1.5 TH/MM3 Eosinophils # (Auto) 0.1 TH/MM3 Basophils # (Auto) 0.1 TH/MM3 CBC Comment AUTO DIFF Differential Total Cells Counted 100 Neutrophils % (Manual) 19 % Band Neutrophils % 2 % Lymphocytes % 75 % Monocytes % 4 % Neutrophils # (Manual) 6.4 TH/MM3 Differential Comment FINAL DIFF MANUAL Smudge Cells PRESENT Platelet Estimate NORMAL Platelet Morphology Comment NORMAL Ovalocytes 1+ Acanthocytes OCC Test 11/18/16 07:15 11/18/16 14:21 11/18/16 20:35 11/19/16 10:20 Blood Urea Nitrogen 33 MG/DL 33 MG/DL 39 MG/DL Creatinine 0.76 MG/DL 0.66 MG/DL 0.59 MG/DL Random Glucose 171 MG/DL 211 MG/DL 118 MG/DL Calcium Level 8.1 MG/DL 8.3 MG/DL 6.7 MG/DL Sodium Level 152 MEQ/L 147 MEQ/L 149 MEQ/L Potassium Level 5.6 MEQ/L 4.1 MEQ/L 3.9 MEQ/L Chloride Level 119 MEQ/L 114 MEQ/L 114 MEQ/L Carbon Dioxide Level 23.6 MEQ/L 24.5 MEQ/L 28.2 MEQ/L Anion Gap 9 MEQ/L 9 MEQ/L 7 MEQ/L Estimat Glomerular Filtration Rate 98 ML/MIN 116 ML/MIN 132 ML/MIN Random Vancomycin Level 9.8 COMMENT White Blood Count 25.4 TH/MM3 14.2 TH/MM3 Red Blood Count 3.67 MIL/MM3 3.05 MIL/MM3 Hemoglobin 11.1 GM/DL 9.3 GM/DL Hematocrit 34.5 % 27.7 % Mean Corpuscular Volume 94.1 FL 91.0 FL Mean Corpuscular Hemoglobin 30.3 PG 30.5 PG Mean Corpuscular Hemoglobin Concent 32.2 % 33.5 % Red Cell Distribution Width 18.8 % 17.8 % Platelet Count 192 TH/MM3 203 TH/MM3 Mean Platelet Volume 9.0 FL 9.0 FL Neutrophils (%) (Auto) 41.5 % 48.9 % Lymphocytes (%) (Auto) 49.9 % 42.2 % Monocytes (%) (Auto) 7.5 % 6.5 % Eosinophils (%) (Auto) 0.8 % 2.0 % Basophils (%) (Auto) 0.3 % 0.4 % Neutrophils # (Auto) 10.5 TH/MM3 7.0 TH/MM3 Lymphocytes # (Auto) 12.7 TH/MM3 6.0 TH/MM3 Monocytes # (Auto) 1.9 TH/MM3 0.9 TH/MM3 Eosinophils # (Auto) 0.2 TH/MM3 0.3 TH/MM3 Basophils # (Auto) 0.1 TH/MM3 0.1 TH/MM3 CBC Comment AUTO DIFF AUTO DIFF Differential Total Cells Counted 100 100 Neutrophils % (Manual) 51 % 52 % Band Neutrophils % 3 % 2 % Lymphocytes % 38 % 42 % Monocytes % 8 % 2 % Neutrophils # (Manual) 13.7 TH/MM3 7.7 TH/MM3 Differential Comment FINAL DIFF MANUAL FINAL DIFF MANUAL Plasma Cells % Smudge Cells PRESENT PRESENT Platelet Estimate NORMAL NORMAL Platelet Morphology Comment NORMAL NORMAL Ovalocytes 1+ 1+ Keratocytes 1+ Eosinophils % 2 % Nucleated Red Blood Cells 1 /100 WBC Basophilic Stippling MOD Acanthocytes OCC Total Protein 5.8 GM/DL Phosphorus Level 1.9 MG/DL Magnesium Level 2.3 MG/DL Protein Corrected Calcium 7.3 MG/DL Troponin I 0.11 NG/ML Thyroid Stimulating Hormone 3rd Gen 1.040 uIU/ML Phenytoin (Dilantin) Level 11.2 MCG/ML (Brennon White) Medical Decision Making Impression and Plan Impression: 1. Traumatic brain injury 2. Hypertension 3. Diabetes 4. Respiratory failure 5. Seizures Sodium 149 this morning. Improved leukocytosis w/o neutrophilia or bandemia. Patient with improved neurological examination although it is still poor. Plan: Plan of care discussed with patient's son. Critical care management per [facility]ial [facility]. Anti-epileptic medications per Neurology. Frequent neuro checks. Continue present diabetic medications with insulin sliding scale. Non-chemical DVT prophylaxis. Ulcer prophylaxis. (Brennon White) Attending Statement The exam, history, and the medical decision-making described in the above note were completed with the assistance of the mid-level provider. I reviewed and agree with the findings presented. I attest that I had a [id number] encounter with the patient on the same day, and personally performed and documented my assessment and findings in the medical record. No significant change in neurologic exam today Continuing anticonvulsants Blood pressure monitoring Prognosis guarded (Tony Godfrey MD) Brennon White Nov 19, 2016 15:07 Tony Godfrey MD Dec 15, 2016 05:33
[2016-11-19] MEDS: DEXTROSE 50% IN WATER 50 ML VIAL(D50) IV PRN (15:21)
--- NOTE | 2016-11-19 16:26 | HHI.PR ---
Review/Management Diagnosis s/p closed head injury with cerebral contusion and bilateral subdural hematoma secondary SZ. Plan continue current phenytoin dose and keppra phenytoin level is in the therapeutic range today. Diagnosis/Plan: Subjective Subjective Comments No acute events reported No seizures Active Medications Current Medications Medications (Trade) Dose Ordered Sig/Gregg Route Start Time Stop Time Status Last Admin (Proscar) 5 mg DAILY PO 11/10/16 09:00 11/19/16 09:06 (Flomax) 0.4 mg HS PO 11/10/16 21:00 11/12/16 22:04 (Detrol La) 2 mg DAILY PO 11/10/16 09:00 11/19/16 09:06 Nicardipine HCl 25 mg/Sodium Chloride 260 ml @ 52 mls/hr TITRATE PRN IV 11/09/16 23:45 (D50w (Vial) Inj) 50 ml UNSCH PRN IV 11/09/16 23:45 11/19/16 15:21 (Glucagon Inj) 1 mg UNSCH PRN OTHER 11/09/16 23:45 (Ativan Inj) 1 mg Q5M PRN IV 11/12/16 00:45 11/12/16 01:45 (Peridex 0.12% Liq) 15 ml BID@08,20 MT 11/12/16 08:00 11/19/16 08:00 Midazolam HCl 100 ml @ 2 mls/hr TITRATE PRN IV 11/12/16 07:15 11/13/16 08:49 Fentanyl Citrate 250 ml @ 5 mls/hr TITRATE PRN IV 11/12/16 07:15 11/13/16 23:20 (NS Flush) DAILY IVF 11/12/16 09:00 11/17/16 07:15 (NS Flush) UNSCH PRN IVF 11/12/16 08:15 (Prevacid Odt) 30 mg DAILY NG 11/12/16 09:00 11/19/16 09:06 (Colace Liq) 100 mg Q12HR PO 11/12/16 09:00 11/18/16 21:00 (Senna Liq) 8.8 mg BID NG 11/12/16 09:00 11/17/16 21:13 (NS Flush) 2 ml UNSCH PRN IV FLUSH 11/12/16 08:30 (NS Flush) 2 ml BID IV FLUSH 11/12/16 09:00 11/18/16 21:01 (Tears Naturale Opth Soln) 1 drop TID EACH EYE 11/12/16 09:00 11/19/16 13:00 (Zofran Inj) 4 mg Q6H PRN IV 11/12/16 08:30 11/15/16 05:45 (Albuterol Neb) 2.5 mg Q2HR NEB PRN INH 11/12/16 08:30 11/17/16 20:54 (Dulcolax Supp) 10 mg DAILY PRN RECTAL 11/12/16 08:30 (Lactulose Liq) 30 ml DAILY PRN PO 11/12/16 08:30 Potassium Chloride 100 ml @ 50 mls/hr Q2H PRN IV-CENTRAL 11/12/16 08:30 11/13/16 08:49 Potassium Chloride 100 ml @ 50 mls/hr Q2H PRN IV 11/12/16 08:30 (K-Lyte Cl Eff) 50 meq UNSCH PRN PO 11/12/16 08:30 Potassium Chloride 100 ml @ 25 mls/hr UNSCH PRN IV-CENTRAL 11/12/16 08:30 11/16/16 17:47 Potassium Chloride 100 ml @ 50 mls/hr Q2H PRN IV 11/12/16 08:30 11/16/16 05:34 Magnesium Sulfate 4 gm/Sodium Chloride 100 ml @ 50 mls/hr UNSCH PRN IV 11/12/16 08:30 (Mag-Ox) 800 mg UNSCH PRN PO 11/12/16 08:30 Magnesium Sulfate 2 gm/Sodium Chloride 100 ml @ 50 mls/hr UNSCH PRN IV 11/12/16 08:30 (K-Phos) 2,000 mg Q4H PRN PO 11/12/16 08:30 11/13/16 10:35 Sodium Phosphate 30 mmol/Sodium Chloride 250 ml @ 42 mls/hr UNSCH PRN IV 11/12/16 08:30 11/19/16 13:58 (K-Phos) 2,000 mg UNSCH PRN PO/TUBE 11/12/16 08:30 Potassium Phosphate 30 mmol/ Sodium Chloride 260 ml @ 42 mls/hr UNSCH PRN IV 11/12/16 08:30 11/14/16 06:15 (Tylenol 650 Mg/ 20 ml Liq) 650 mg Q6H PRN NG 11/12/16 08:45 11/18/16 04:02 Levetriacetam 100 ml @ 400 mls/hr Q8HR IV 11/12/16 22:00 11/19/16 13:42 (Miralax) 17 gm BID OG-TUBE 11/13/16 21:00 11/17/16 21:13 (Lactulose Liq) 30 ml DAILY PO 11/14/16 09:00 11/17/16 08:58 (Glycerin Adult Supp) 2 gm BID PRN RECTAL 11/13/16 15:00 (Apresoline Inj) 20 mg Q4H PRN IV PUSH 11/14/16 02:15 11/14/16 03:07 (Lopressor Inj) 5 mg Q6H PRN IV PUSH 11/14/16 03:30 11/18/16 04:02 (Lopressor) 25 mg Q12HR PO 11/16/16 09:30 11/19/16 09:06 (Levemir Inj) 12 units Q12HR SQ 11/17/16 09:00 11/18/16 21:02 (NovoLOG SUPPLEMENTAL SCALE) 1 Q6H SQ 11/17/16 09:00 11/18/16 21:03 Pharmacy Profile Note 0 ml @ 0 mls/hr UNSCH OTHER 11/17/16 08:15 Cefepime HCl 2000 mg/Sodium Chloride 100 ml @ 200 mls/hr Q12H IV 11/17/16 09:00 11/19/16 09:07 (Flagyl) 500 mg Q8HR PO 11/17/16 09:00 11/19/16 13:41 (Duoneb Neb) 1 ampule Q6HR NEB NEB 11/18/16 10:00 11/19/16 15:59 Vancomycin HCl 2250 mg/Sodium Chloride 522.5 ml @ 250 mls/hr Q18H IV 11/18/16 13:00 11/19/16 06:05 Miscellaneous Information SPECIFIC LAB TO BE DRAWN:VANCO TROUGH DATE TO... ONCE ONCE .XX 11/20/16 00:45 11/20/16 00:46 Fosphenytoin Sodium 100 mgpe/ Sodium Chloride 52 ml @ 208 mls/hr Q6HR IV 11/18/16 13:00 11/19/16 11:55 Diltiazem HCl 125 mg/Sodium Chloride 125 ml @ 5 mls/hr TITRATE PRN IV 11/19/16 00:45 Allergies Allergies Coded Allergies Penicillins (Verified Allergy, Unknown, 11/09/16) Exam I&O / VS 11/19/16 11/19/16 11/20/16 15:00 23:00 07:00 Output Total 0 ml Balance 0 ml Tube Feeding Residual Discard 0 ml Vital Signs Date Time Temp Pulse Resp B/P (MAP) Pulse Ox O2 Delivery O2 Flow Rate FiO2 11/19/16 16:00 106 11/19/16 16:00 98 Nasal Cannula 2.00 11/19/16 14:00 100 11/19/16 12:00 98.9 98 32 119/56 (77) 100 11/19/16 12:00 105 11/19/16 10:35 100 Nasal Cannula 4.00 11/19/16 10:35 100 Nasal Cannula 4 11/19/16 10:00 98 11/19/16 09:53 Nasal Cannula 30 11/19/16 09:10 30 11/19/16 08:43 100 30 11/19/16 08:00 102 11/19/16 08:00 98.7 102 24 146/69 (94) 98 11/19/16 08:00 30 11/19/16 07:00 100 Mechanical Ventilator 30 11/19/16 06:00 94 11/19/16 04:40 96 30 11/19/16 04:00 30 11/19/16 04:00 99 11/19/16 04:00 99.5 100 28 147/72 (97) 100 11/19/16 02:00 96 11/19/16 01:23 100 30 11/19/16 00:00 30 11/19/16 00:00 100.0 133 29 111/69 (83) 100 11/19/16 00:00 133 11/18/16 23:30 130 11/18/16 23:00 100 30 11/18/16 22:18 100 30 11/18/16 22:00 100 11/18/16 21:35 100 30 11/18/16 20:00 30 11/18/16 20:00 98.2 104 28 127/60 (82) 100 11/18/16 20:00 104 11/18/16 19:16 100 30 11/18/16 19:00 100 Mechanical Ventilator 30 11/18/16 18:00 103 Exam Comments MOTOR--no focal deficit. No myoclonus or clinical Sz seen at this time Objective Micro and Labs Laboratory Tests Test 11/18/16 20:35 11/19/16 10:20 Blood Urea Nitrogen 33 39 Creatinine 0.66 0.59 Random Glucose 211 118 Calcium Level 8.3 6.7 Sodium Level 147 149 Potassium Level 4.1 3.9 Chloride Level 114 114 Carbon Dioxide Level 24.5 28.2 Anion Gap 9 7 Estimat Glomerular Filtration Rate 116 132 White Blood Count 14.2 Red Blood Count 3.05 Hemoglobin 9.3 Hematocrit 27.7 Mean Corpuscular Volume 91.0 Mean Corpuscular Hemoglobin 30.5 Mean Corpuscular Hemoglobin Concent 33.5 Red Cell Distribution Width 17.8 Platelet Count 203 Mean Platelet Volume 9.0 Neutrophils (%) (Auto) 48.9 Lymphocytes (%) (Auto) 42.2 Monocytes (%) (Auto) 6.5 Eosinophils (%) (Auto) 2.0 Basophils (%) (Auto) 0.4 Neutrophils # (Auto) 7.0 Lymphocytes # (Auto) 6.0 Monocytes # (Auto) 0.9 Eosinophils # (Auto) 0.3 Basophils # (Auto) 0.1 CBC Comment AUTO DIFF Differential Total Cells Counted 100 Neutrophils % (Manual) 52 Band Neutrophils % 2 Lymphocytes % 42 Monocytes % 2 Eosinophils % 2 Neutrophils # (Manual) 7.7 Nucleated Red Blood Cells 1 Differential Comment FINAL DIFF MANUAL Smudge Cells PRESENT Platelet Estimate NORMAL Platelet Morphology Comment NORMAL Basophilic Stippling MOD Ovalocytes 1+ Acanthocytes OCC Total Protein 5.8 Phosphorus Level 1.9 Magnesium Level 2.3 Protein Corrected Calcium 7.3 Troponin I 0.11 Thyroid Stimulating Hormone 3rd Gen 1.040 Phenytoin (Dilantin) Level 11.2 Date/Time Source Procedure Growth Status 11/18/16 07:15 Blood Peripheral Aerobic Blood Culture - Preliminary Gram Positive Cocci Resulted 11/18/16 07:15 Blood Peripheral Anaerobic Blood Culture - Final QNS - SEE AEROBE REPORT Resulted 11/17/16 08:50 Sputum Endotracheal Gram Stain - Final Complete 11/17/16 08:50 Sputum Endotracheal Sputum Culture - Final HEAVY GROWTH NORMAL RESPIRATORY ITZEL Complete 11/17/16 08:50 Urine Catheterized Urine Urine Culture - Final NO GROWTH IN 48 HOURS. Complete Omer Nguyen PhD Nov 19, 2016 16:26
[2016-11-19] MEDS: TAMSULOSIN HCL 0.4 MG CAP PO SCH (20:29)
--- NOTE | 2016-11-19 21:27 | EKG ---
Date Performed: 11/18/2016 Time Performed: 23:23:08 PTAGE: 80 years EKG: Atrial fibrillation with rapid ventricular response. Rightward axis Possible anteroseptal i nfarct - age undetermined Inferior/lateral T wave changes are nonspecific Abnormal ECG PREVIOUS TRACING : 11/14/2016 04.31 Compared to prior tracing a fib now present DOCTOR: Zhanna Patricio Interpretating Date/Time 11/19/2016 21:26:10
[2016-11-20] VITALS (12 sets, daily range): BP systolic 107–141; BP diastolic 55–78; PULSE 98–114; RESP 19–26; TEMP 97.5–98.8; O2SAT 92–99
[2016-11-20] MEDS ORDERED: PHARMACY ORDERED LAB ONE (00:45)
[2016-11-20] MEDS: VANCOMYCIN INJ 2,250 MG in SODIUM CHLORID 0.9% 500 ML INJ 500 ML IV SCH ×2 (00:52→18:54)
[2016-11-20 01:17] LABS: AUTOMATED NEUTROPHIL # 4.7 TH/MM3 (1.8-7.7); BASOPHIL % 0.3 % (0.0-2.0); EOSINOPHIL # 0.2 TH/MM3 (0-0.4); EOSINOPHIL % 1.6 % (0.0-4.0); HEMO FLAGS AUTO DIFF; LYMPH % 52.4 % (9.0-44.0); LYMPHOCYTE # 6.3 TH/MM3 (1.0-4.8); MEAN CORPUSCULAR HEMOGLOBIN 29.3 PG (27.0-34.0); MEAN CORPUSCULAR HGB CONC 32.1 % (32.0-36.0); MONO % 6.3 % (0.0-8.0); NEUT % 39.4 % (16.0-70.0); PLATELET COUNT 257 TH/MM3 (150-450); RED BLOOD COUNT 2.96 MIL/MM3 (4.50-5.90); RED CELL DISTRIBUTION WIDTH 18.3 % (11.6-17.2)
[2016-11-20 02:10] LABS: EOSINOPHILS 1 % (0-4); NEUTROPHIL # MANUAL DIFF 8.4 TH/MM3 (1.8-7.7); POLYS (SEG NEUTROPHILS) 70 % (16-70); WBC DIFF SAMPLE 100
[2016-11-20 02:11] LABS: ACANTHOCYTES OCC (NORMAL); OVALOCYTES 1+ (NORMAL); PLATELET ESTIMATE SMEAR NORMAL (NORMAL)
[2016-11-20 02:12] LABS: PLATELET MORPHOLOGY NORMAL (NORMAL); SCAN/DIFF FINAL DIFF MANUAL; SMUDGE CELLS PRESENT PRESENT
[2016-11-20] MEDS: INSULIN ASPART SUPPLEMENTAL SCALE SQ SCH ×4 (03:00→21:00)
[2016-11-20 03:27] LABS: BICARBONATE 23.8 MEQ/L (21.0-32.0); POTASSIUM 3.4 MEQ/L (3.5-5.1)
[2016-11-20 03:30] LABS: VANCOMYCIN TROUGH 18.8 MCG/ML (5.0-10.0)
[2016-11-20] MEDS: RESP: ALBUTEROL 2.5 MG/IPRATROPIUM 0.5 MG NEB (SCH) NEB ×3 (04:02→16:15)
[2016-11-20] MEDS: FOSPHENYTOIN INJ 100 MGPE in SODIUM CHLORIDE 0.9% INJ 50 ML IV SCH ×3 (05:04→18:37)
[2016-11-20] MEDS: metroNIDAZOLE 500 MG TAB PO SCH ×3 (05:04→22:24)
[2016-11-20] MEDS: levETIRAcetam 1000 MG INJ 100 ML IV SCH ×3 (05:27→22:00)
[2016-11-20] MEDS: CHLORHEXIDINE 0.12% (ORAL KIT) 15 ML CUP MT SCH ×2 (08:00→20:00)
[2016-11-20] MEDS: SODIUM CHLORIDE 0.9% FLUSH 10 ML FLUSH IVF SCH (09:00)
[2016-11-20] MEDS: ARTIFICIAL TEARS OPTH SOLN 15 ML BTL EACH EYE SCH ×3 (09:00→18:05)
[2016-11-20] MEDS: INSULIN DETEMIR 100 UNITS/ML VIAL SQ SCH ×2 (09:02→21:00)
[2016-11-20] MEDS: POLYETHYLENE GLYCOL 17 GM PKG OG-TUBE SCH ×2 (09:03→22:22)
[2016-11-20] MEDS: CEFEPIME INJ 2,000 MG in SODIUM CHLORIDE 0.9% INJ 100 ML IV SCH (09:03)
[2016-11-20] MEDS: LANSOPRAZOLE SOLUTAB 30 MG TAB NG SCH (09:03)
[2016-11-20] MEDS: SODIUM CHLORIDE 0.9% FLUSH 10 ML FLUSH IV FLUSH SCH ×2 (09:03→21:00)
[2016-11-20] MEDS: DOCUSATE SODIUM 100 MG/10 ML UDC PO SCH ×2 (09:03→22:23)
[2016-11-20] MEDS: LACTULOSE SYRUP 20 GM/30 ML CUP PO SCH (09:03)
[2016-11-20] MEDS: FINASTERIDE 5 MG TAB PO SCH (09:04)
[2016-11-20] MEDS: TOLTERODINE TARTRATE 2 MG CAP LA PO SCH (09:04)
[2016-11-20] MEDS: SENNOSIDES SYRUP 8.8 MG/5 ML CUP NG SCH ×2 (09:04→22:23)
[2016-11-20] MEDS: METOPROLOL TARTRATE 25 MG TAB PO SCH ×2 (09:04→22:24)
--- NOTE | 2016-11-20 11:20 | HHI.CCPN ---
Subjective Remarks/Hospital Course 80 y/o man fell backwards two days ago and hit the back of his head quite hard. LOC and vomiting followed by general lethargy, but conversant and responsive. I was asked to see him by nurse today for lack of responsiveness about 1100 hours. Unresponsive now and morning head CT demonstrates increased edema surrounding intraparenchymal hemorrhages, unchanged subdural collections. Stat EEG revealed generalized seizure activity. Discussed with Neurosurgery Service and AED started. Patient protects airway well, nonconvulsive. 11/12: Patient unresponsive and looking towards left. On fosphenytoin 100 mg IV every 8 hours and levetiracetam 1000 mg IV twice a day. Will need intubation along with central line placed for 3% hypertonic saline Subjective 11/13: Intubated yesterday severity ongoing seizure activity. EEG revealed cessation of seizure activity with lorazepam injection.. Tolerating tube feeding. No bowel movement. Afebrile. 11/14: Gas exchange acceptable. CT head worrisome. CXR with accumulating effusions. Daughter at bedside. 11/15: Severe neurological injury following backward fall. Medical therapy is maximized regarding prevention of cerebral edema and maintenance of cerebral perfusion. 11/16: Unresponsive. Serum well concentrated. 11/17: He became hemodynamically unstable last night, associated with temp 103. Cultures obtained, abx started. Will remove central line. No neuro improvement. 11/18: Increased activity but not following commands. Remains edematous. Afebrile today. Temp 102.2, await sputum C&S. 11/19: Breathing with more comfort but tachypneic. Gas exchange good. Will try to extubate - 50/50 chance of success. Blood with 2/4 GPC, on vancomycin. 11/20: 80 y/o man fell backwards hitting his head about 11 days ago. Received SDHs and alejandro contusions with hemorrhage. Required intubation 7 days ago for obtundation. Now extubated 11/19 and breathing comfortably. Passed swallow evaluation for thickened liquids. Will need rehab for speech, swallowing. Generally weak. Fever to 103 3 nights ago, blood grew Staph 2/4 bottles. On vancomycin. No source identified. No central lines at the time. Objective Vital Signs Date Time Temp Pulse Resp B/P (MAP) Pulse Ox O2 Delivery O2 Flow Rate FiO2 11/20/16 08:00 110 11/20/16 07:41 99 Nasal Cannula 2.00 11/20/16 04:00 97.5 24 107/71 (83) 11/19/16 09:53 30 Intake and Output 11/20/16 11/20/16 11/21/16 08:00 16:00 00:00 Intake Total 1862.5 ml Output Total 775 ml Balance 1087.5 ml Result Diagram: 11/20/16 0045 11/20/16 0239 Imaging Last Impressions Chest X-Ray 11/12/16 0813 Signed Impressions: Service Date/Time: Saturday, November 12, 2016 08:15 - CONCLUSION: Right IJ catheter tip at the origin the superior vena cava. No evidence of pneumothorax. Narayan Coulter MD Abdomen X-Ray 11/12/16 0000 Signed Impressions: Service Date/Time: Saturday, November 12, 2016 08:23 - CONCLUSION: 1. Gastric tube in good position. 2. Probable right renal stones. Narayan Coulter MD Head CT 11/11/16 0000 Signed Impressions: Service Date/Time: Friday, November 11, 2016 09:44 - CONCLUSION: 1. Stable multiple intercranial contusions Blaine Shore MD Cervical Spine CT 11/09/161950 Signed Impressions: Service Date/Time: Wednesday, November 09, 2016 20:14 - CONCLUSION: Negative trauma CT. Cj Isidro MD Objective Remarks Gen: 80-year-old male, intubated Neck: Supple. Lungs: No wheezes, no crackles. Good air movement. Heart: RRR. S1S2. Without murmur, rubs Abdomen: Soft, nondistended, active bowel sounds. No guarding, no distention Extremities: Warm, well perfused. Trace edema persists feet. Neuro: Opens eyes, tracks, follows commands, conversant. Date of Insertion: Nov 12, 2016 Line: Central Venous Catheter Side: Right Location: Internal, Jugular A/P Assessment and Plan Neuro/Psych: Closed head injury - Traumatic Bilateral large intra-parenchymal hemorrhages/right temporal/parietal subdural hematoma and bifrontal contusions Nonconvulsive seizures CT brain 11/11 revealed bi frontal contusions, right temporal/parietal subdural hematoma around 8 mm in subarachnoid hemorrhage EEG 11/11 revealed mild to moderate encephalopathy. Right frontal/central generalized slowing with intermittent sharps waves Repeat EEG 11/12 revealed 2 clinical seizure activities that cessation with 2 mg Ativan IV 1. Repeat EEG today pending Currently on fosphenytoin 100 mg IV every 6 hours. A.m. level pending. Along with levetiracetam 1000 mg IV twice a day. Neurosurgery/Dr. Godfrey follows CV: Atrial fibrillation Hypertension Currently on lopressor with parameters for heart rate and blood pressure Not requiring vasopressors and/or antihypertensives. Goal keep systolic blood pressure less than 150 Resp: Acute respiratory insufficiency secondary to altered mental status Extubated 11/19 GI: Docusate sodium 100 mg twice a day/senna 8.6 mg twice a day for bowel regimen : BPH Maintain Noriega Currently on tamsulosin 0.4 mg by mouth daily and tolterodine 2 mg by mouth daily - hospital substitution for finasteride 5 mg by mouth daily Endo: Diabetes mellitus - hemoglobin A1c 6.0 Currently on Novulin R sliding scale insulin every 6 hours to maintain euglycemia Add levemir bid. Renal: Creatinine currently within normal limits Monitor urine output Accurate I's and O's Heme: Leukocytosis Normocytic anemia Coags within normal limit ID: Cultures 11/17 Vanc, Cefepime started 11/17 Pertinent cultures 11/11 - blood cultures 2 - no growth FEN: Hypophosphatemia MSK: Physical therapy evaluate and treat Access Left IJ CVL day #7 placed 11/12/2016 -> removed. Prophylaxis - GI - lanosprazole DVT - SCD/pharmacological prophylaxis when okay with neurosurgery Overall impression: Tolerating extubation. Very weak but conversant (hearing is weak). Dev Loaiza MD Nov 20, 2016 11:19
[2016-11-20] MEDS ORDERED: TERBUTALINE INJ 1 MG/ML AMP SQ PRN (16:30)
[2016-11-20] MEDS ORDERED: 3% SALINE INJ 500 ML IV ONE (16:30)
[2016-11-20] MEDS ORDERED: NOREPINEPHRINE INJ 4 MG in SODIUM CHLOR 0.9% 250 ML INJ 246 ML IV PRN (16:30)
--- NOTE | 2016-11-20 17:55 | HHI.NSPN ---
(Brennon White) History Chief Complaint: Generalised pain. (Brennon White) Interval History 11/09: 80-year-old male who according to his family was going up a step into the house with his cane when he fell backwards, striking the back of his head. He was reportedly unconscious for 10-15 minutes. He then had some shaking in the extremities as he was waking up. He has been somewhat sleepy and a little confused since he woke up at the patient's family states that he is conversing reasonably well with them. He normally is fairly independent, ambulating with a cane and is usually mentally alert with only mild memory loss. Positive emesis reported. Patient has no complaint of headache or neck pain. No complaint of low back or joint pain. 11/10: nursing reports agitated overnight, currently sleeping. f/u CT Head completed, moves all four extremities. son translated - oriented to name and place only. 11/11: Notified by PARVIN Stoner, that Nursing had notified her that the patient's mental status was worse this morning and that she had ordered a stat CT brain. When seen this morning the patient is obtunded and not answering to verbal stimuli. Nursing reports that CT had called and was sending someone up to transport the patient to the scanner. She stated that the patient did receive morphine and hydrocodone during the night for pain because he was agitated. 11/12: The patient has been intubated this morning due to persistent decreased mental status. Possibly a few more episodes of seizure activity reported last evening. He is continuing on Dilantin and Keppra for seizures. 11/13: The patient still is intubated, mechanically ventilated and sedated with midazolam. He does not respond to noxious stimulation. The EEG done yesterday morning did demonstrate seizure activity. Neurology evaluated the patient yesterday and adjusted his anti-epileptic medications. An EEG was done this morning prior to the patient being seen. 11/14: The patient remains intubated. A midazolam drip is still infusing as is a fentanyl drip. A repeat Ct brain this morning demonstrated evolving contusions and haemorrhages. 11/15: The patient is intubated without any sedation. The midazolam and fentanyl infusions were discontinued yesterday. A 3% saline drip continues to infuse. He did have a slight twitching of the eyelids when his name was called but no eye opening. 11/16: This morning the patient opened his eyes to verbal stimulation. He continues to be intubated without any sedation. 11/17/16: Patient remains intubated. He had a dose of intravenous sedation last night for agitation. Remains relatively alert. Positive fever last evening. Some difficulty with hemodynamic instability last evening. 11/18: The patient is on a cooling blanket with ice packs when seen this morning. He continues to be intubated. He does look to whomever is speaking and did follow commands. 11/19: The patient is asleep but awakens on his own. He was extubated this morning and is now on a nasal cannula. He follows commands and moves all his extremities to a degree. He does tell his daughter that he is tired. The family reports earlier that the patient did ask where his and son were by name. 11/20: When seen this afternoon the patient had just been transferred to a regular med/surg floor. He appears mildly distressed and is moaning. His daughter states that he has said he has pain all over. (Brennon White) System Review Comments Patient moaning when seen and not answering questions. The daughter does state that he has complained of generalised pain. (Brennon White) Exam Results 11/18/16 11/18/16 11/19/16 11/19/16 11/20/16 11/20/16 06:00 18:00 06:00 18:00 06:00 18:00 Intake Total 2213 ml 1084.5 ml 1256 ml 1307.5 ml 2364.5 ml Output Total 900 ml 3250 ml 475 ml 650 ml 775 ml Balance 1313 ml -2165.5 ml 781 ml 657.5 ml 1589.5 ml Intake Oral 240 ml IV Total 1327 ml 1084.5 ml 356 ml 976.5 ml 2124.5 ml Tube Feeding 586 ml 600 ml 281 ml 0 ml Other 300 ml 300 ml 50 ml 0 ml Output Urine Total 900 ml 3250 ml 475 ml 650 ml 775 ml Tube Feeding Residual Discard 0 ml 0 ml # Bowel Movements 0 1 0 0 0 Vital Signs Date Time Temp Pulse Resp B/P (MAP) Pulse Ox O2 Delivery O2 Flow Rate FiO2 11/20/16 16:16 93 21 11/20/16 08:00 110 11/20/16 07:41 99 Nasal Cannula 2.00 11/20/16 07:00 100 Nasal Cannula 2.00 11/20/16 06:00 111 11/20/16 04:00 97.5 105 24 107/71 (83) 97 11/20/16 04:00 105 11/20/16 02:00 102 11/20/16 00:00 98.2 100 26 110/55 (73) 97 11/20/16 00:00 100 11/19/16 22:00 104 11/19/16 21:00 98 Nasal Cannula 2.00 11/19/16 20:00 99.0 112 22 113/60 (77) 100 11/19/16 20:00 112 11/19/16 19:00 98 Nasal Cannula 2.00 11/19/16 18:00 110 11/19/16 16:00 106 11/19/16 16:00 98 Nasal Cannula 2.00 11/19/16 16:00 98.4 106 35 118/63 (81) 99 11/19/16 14:00 100 11/19/16 12:00 98.9 98 32 119/56 (77) 100 11/19/16 12:00 105 11/19/16 10:35 100 Nasal Cannula 4.00 11/19/16 10:35 100 Nasal Cannula 4 11/19/16 10:00 98 11/19/16 09:53 Nasal Cannula 30 11/19/16 09:10 30 11/19/16 08:43 100 30 11/19/16 08:00 102 11/19/16 08:00 98.7 102 24 146/69 (94) 98 11/19/16 08:00 30 11/19/16 07:00 100 Mechanical Ventilator 30 11/19/16 06:00 94 11/19/16 04:40 96 30 11/19/16 04:00 30 11/19/16 04:00 99 11/19/16 04:00 99.5 100 28 147/72 (97) 100 11/19/16 02:00 96 11/19/16 01:23 100 30 11/19/16 00:00 30 11/19/16 00:00 100.0 133 29 111/69 (83) 100 11/19/16 00:00 133 11/18/16 23:30 130 11/18/16 23:00 100 30 11/18/16 22:18 100 30 11/18/16 22:00 100 11/18/16 21:35 100 30 11/18/16 20:00 30 11/18/16 20:00 98.2 104 28 127/60 (82) 100 11/18/16 20:00 104 11/18/16 19:16 100 30 11/18/16 19:00 100 Mechanical Ventilator 30 11/18/16 18:00 103 11/18/16 16:13 98 30 11/18/16 16:00 30 11/18/16 16:00 102 11/18/16 16:00 98.7 102 30 135/80 (98) 99 11/18/16 14:00 108 11/18/16 12:00 100.0 105 30 134/67 (89) 99 11/18/16 12:00 30 11/18/16 12:00 105 11/18/16 11:31 100 30 11/18/16 10:00 104 11/18/16 09:00 30 11/18/16 08:08 100 30 11/18/16 08:08 30 11/18/16 08:00 108 11/18/16 08:00 100.2 108 30 145/71 (95) 100 11/18/16 08:00 30 11/18/16 07:00 100 Mechanical Ventilator 30 11/18/16 06:00 102 11/18/16 04:31 100 30 11/18/16 04:00 122 11/18/16 04:00 30 11/18/16 04:00 102.2 104 26 135/66 (89) 100 11/18/16 02:00 113 11/18/16 01:12 100 30 11/18/16 00:00 30 11/18/16 00:00 97 11/17/16 22:15 100 30 11/17/16 22:00 102 11/17/16 20:00 116 11/17/16 20:00 30 11/17/16 20:00 101.4 116 30 156/102 (120) 100 11/17/16 19:20 100 30 11/17/16 19:00 100 Mechanical Ventilator 30 11/17/16 18:00 110 (Brennon White) Physical Examination GENERAL: Patient awake & moaning. He appears mildly distressed & uncomfortable. SKIN: Cool, dry & intact w/o any evident rashes, ulcerations or lesions. HEENT: Normocephalic. Pupils appear essentially equal reactive. NECK: No JVD, trachea midline. CARDIOVASCULAR: S1S2 w/RRR w/o M/G/R, radial & pedal pulses 2+ bilaterally, cap refill < 2 sec, dependent edema. RESPIRATORY: Essentially clear, equal excursion, mildly laboured & tachypneic, on RA. GASTROINTESTINAL: Abdomen distended, nontender, bowel sounds not appreciated. MUSCULOSKELETAL: No evident deformity or clubbing. NEUROLOGICAL: Awake & moaning. GCS 12 (E4 V2 M6). No other verbalisation than moaning but daughter reports that he has said he is in pain. Opens eyes and appears to track. PERRLA reactive. Follows commands. He does move the LUE spontaneously. Slight spontaneous movement of the LLE. He does have trace movement of the RUE & RLE to command. Unable to assess sensation. (Brennon White) Lab, Micro, Other Results Recent Impressions Chest X-Ray 11/18/16 0000 Signed Impressions: Service Date/Time: Friday, November 18, 2016 10:32 - CONCLUSION: 1. Mild scattered stable pulmonary infiltrates. 2. Small bilateral pleural effusions. 3. Endotracheal tube and nasogastric tube in good positions. 4. Degenerative changes and scoliosis of the thoracic spine. Juan Manuel Michel MD Laboratory Tests Test 11/18/16 07:15 11/18/16 14:21 11/18/16 20:35 11/19/16 10:20 Blood Urea Nitrogen 33 MG/DL 33 MG/DL 39 MG/DL Creatinine 0.76 MG/DL 0.66 MG/DL 0.59 MG/DL Random Glucose 171 MG/DL 211 MG/DL 118 MG/DL Calcium Level 8.1 MG/DL 8.3 MG/DL 6.7 MG/DL Sodium Level 152 MEQ/L 147 MEQ/L 149 MEQ/L Potassium Level 5.6 MEQ/L 4.1 MEQ/L 3.9 MEQ/L Chloride Level 119 MEQ/L 114 MEQ/L 114 MEQ/L Carbon Dioxide Level 23.6 MEQ/L 24.5 MEQ/L 28.2 MEQ/L Anion Gap 9 MEQ/L 9 MEQ/L 7 MEQ/L Estimat Glomerular Filtration Rate 98 ML/MIN 116 ML/MIN 132 ML/MIN Random Vancomycin Level 9.8 COMMENT White Blood Count 25.4 TH/MM3 14.2 TH/MM3 Red Blood Count 3.67 MIL/MM3 3.05 MIL/MM3 Hemoglobin 11.1 GM/DL 9.3 GM/DL Hematocrit 34.5 % 27.7 % Mean Corpuscular Volume 94.1 FL 91.0 FL Mean Corpuscular Hemoglobin 30.3 PG 30.5 PG Mean Corpuscular Hemoglobin Concent 32.2 % 33.5 % Red Cell Distribution Width 18.8 % 17.8 % Platelet Count 192 TH/MM3 203 TH/MM3 Mean Platelet Volume 9.0 FL 9.0 FL Neutrophils (%) (Auto) 41.5 % 48.9 % Lymphocytes (%) (Auto) 49.9 % 42.2 % Monocytes (%) (Auto) 7.5 % 6.5 % Eosinophils (%) (Auto) 0.8 % 2.0 % Basophils (%) (Auto) 0.3 % 0.4 % Neutrophils # (Auto) 10.5 TH/MM3 7.0 TH/MM3 Lymphocytes # (Auto) 12.7 TH/MM3 6.0 TH/MM3 Monocytes # (Auto) 1.9 TH/MM3 0.9 TH/MM3 Eosinophils # (Auto) 0.2 TH/MM3 0.3 TH/MM3 Basophils # (Auto) 0.1 TH/MM3 0.1 TH/MM3 CBC Comment AUTO DIFF AUTO DIFF Differential Total Cells Counted 100 100 Neutrophils % (Manual) 51 % 52 % Band Neutrophils % 3 % 2 % Lymphocytes % 38 % 42 % Monocytes % 8 % 2 % Neutrophils # (Manual) 13.7 TH/MM3 7.7 TH/MM3 Differential Comment FINAL DIFF MANUAL FINAL DIFF MANUAL Plasma Cells % Smudge Cells PRESENT PRESENT Platelet Estimate NORMAL NORMAL Platelet Morphology Comment NORMAL NORMAL Ovalocytes 1+ 1+ Keratocytes 1+ Eosinophils % 2 % Nucleated Red Blood Cells 1 /100 WBC Basophilic Stippling MOD Acanthocytes OCC Total Protein 5.8 GM/DL Phosphorus Level 1.9 MG/DL Magnesium Level 2.3 MG/DL Protein Corrected Calcium 7.3 MG/DL Troponin I 0.11 NG/ML Thyroid Stimulating Hormone 3rd Gen 1.040 uIU/ML Phenytoin (Dilantin) Level 11.2 MCG/ML Test 11/20/16 00:45 11/20/16 02:39 White Blood Count 12.0 TH/MM3 Red Blood Count 2.96 MIL/MM3 Hemoglobin 8.7 GM/DL Hematocrit 27.0 % Mean Corpuscular Volume 91.0 FL Mean Corpuscular Hemoglobin 29.3 PG Mean Corpuscular Hemoglobin Concent 32.1 % Red Cell Distribution Width 18.3 % Platelet Count 257 TH/MM3 Mean Platelet Volume 8.8 FL Neutrophils (%) (Auto) 39.4 % Lymphocytes (%) (Auto) 52.4 % Monocytes (%) (Auto) 6.3 % Eosinophils (%) (Auto) 1.6 % Basophils (%) (Auto) 0.3 % Neutrophils # (Auto) 4.7 TH/MM3 Lymphocytes # (Auto) 6.3 TH/MM3 Monocytes # (Auto) 0.8 TH/MM3 Eosinophils # (Auto) 0.2 TH/MM3 Basophils # (Auto) 0.0 TH/MM3 CBC Comment AUTO DIFF Differential Total Cells Counted 100 Neutrophils % (Manual) 70 % Lymphocytes % 27 % Monocytes % 2 % Eosinophils % 1 % Neutrophils # (Manual) 8.4 TH/MM3 Differential Comment FINAL DIFF MANUAL Smudge Cells PRESENT Platelet Estimate NORMAL Platelet Morphology Comment NORMAL Ovalocytes 1+ Acanthocytes OCC Blood Urea Nitrogen 29 MG/DL Creatinine 0.51 MG/DL Random Glucose 118 MG/DL Calcium Level 7.6 MG/DL Sodium Level 151 MEQ/L Potassium Level 3.4 MEQ/L Chloride Level 119 MEQ/L Carbon Dioxide Level 23.8 MEQ/L Anion Gap 8 MEQ/L Estimat Glomerular Filtration Rate 156 ML/MIN Phosphorus Level 3.3 MG/DL Vancomycin Level Trough 18.8 MCG/ML (Brennon White) Medical Decision Making Impression and Plan Impression: 1. Traumatic brain injury 2. Hypertension 3. Diabetes 4. Respiratory failure 5. Seizures Sodium 151 this morning. Improved leukocytosis. Patient with essentially stable neurological examination. Plan: Plan of care discussed with patient's daughter. Neuro checks. Continue present diabetic medications with insulin sliding scale. Non-chemical DVT prophylaxis. Ulcer prophylaxis. (Brennon White) Attending Statement The exam, history, and the medical decision-making described in the above note were completed with the assistance of the mid-level provider. I reviewed and agree with the findings presented. I attest that I had a [id number] encounter with the patient on the same day, and personally performed and documented my assessment and findings in the medical record. Continuing non-chemical DVT prophylaxis Anticonvulsants (Tony Godfrey MD) Brennon White Nov 20, 2016 17:55 Tony Godfrey MD Dec 15, 2016 05:34
[2016-11-20 19:24] LABS: STAT NO; ULNAR PULSE PRESENT
[2016-11-20 20:37] LABS: BICARBONATE 26.6 MEQ/L (21.0-32.0); MAGNESIUM 2.4 MG/DL (1.5-2.5); POTASSIUM 3.5 MEQ/L (3.5-5.1)
[2016-11-20] MEDS: TAMSULOSIN HCL 0.4 MG CAP PO SCH (22:24)
[2016-11-21] VITALS (17 sets, daily range): BP systolic 112–153; BP diastolic 58–72; PULSE 94–111; RESP 20–42; TEMP 98.6–100.4; O2SAT 93–100
[2016-11-21] MEDS: INSULIN ASPART SUPPLEMENTAL SCALE SQ SCH ×3 (03:00→21:00)
[2016-11-21] MEDS: RESP: ALBUTEROL 2.5 MG/IPRATROPIUM 0.5 MG NEB (SCH) NEB ×4 (04:02→22:36)
[2016-11-21] MEDS: levETIRAcetam 1000 MG INJ 100 ML IV SCH ×3 (07:50→22:31)
[2016-11-21] MEDS: metroNIDAZOLE 500 MG TAB PO SCH (07:50)
[2016-11-21] MEDS: SODIUM CHLORIDE 0.9% FLUSH 10 ML FLUSH IVF SCH (09:00)
[2016-11-21] MEDS: TOLTERODINE TARTRATE 2 MG CAP LA PO SCH (09:00)
[2016-11-21] MEDS: FINASTERIDE 5 MG TAB PO SCH (09:00)
[2016-11-21] MEDS: LACTULOSE SYRUP 20 GM/30 ML CUP PO SCH (09:00)
[2016-11-21] MEDS: ARTIFICIAL TEARS OPTH SOLN 15 ML BTL EACH EYE SCH (09:00)
[2016-11-21] MEDS: LANSOPRAZOLE SOLUTAB 30 MG TAB NG SCH (09:00)
[2016-11-21 09:29] LABS: BLOOD GAS BASE EXCESS 3.9 mmol/L (-2-2); BLOOD GAS CARBOXYHEMOGLOBIN 1.4 % (0-4); BLOOD GAS HCO3 27 mmol/L (22-26); BLOOD GAS METHEMOGLOBIN 0.7 % (0-2); BLOOD GAS O2 HGB SATURATION 98 % (90-100); BLOOD GAS OXYGEN CONTENT 16.1 Vol % (12.0-20.0); BLOOD GAS PCO2 34 mmHg (38-42); BLOOD GAS PO2 293 mmHg (61-120); BLOOD GAS TOTAL HGB 11.2 G/DL (12.0-16.0); TEMP CORR TO 98.6
[2016-11-21 09:30] LABS: CRITICAL VALUE YES
[2016-11-21] MEDS ORDERED: FUROSEMIDE 40 MG/4 ML VIAL IV PUSH ONE (09:30)
[2016-11-21] MEDS ORDERED: RESP: ALBUTEROL 2.5 MG/IPRATROPIUM 0.5 MG NEB (SCH) NEB ONE (09:30)
[2016-11-21 09:31] LABS: DRAW SITE LT RADIAL; FIO2 100 %; LITER FLOW 15 L/M; NUMBER OF ARTERIAL PUNCTURES 1; OXYGEN DEVICE NRBR
[2016-11-21 09:32] LABS: STAT YES; ULNAR PULSE PRESENT
--- NOTE | 2016-11-21 09:56 | RADRPT ---
EXAM DATE/TIME: 11/21/2016 09:25 [facility] COMPARISON: CHEST SINGLE AP, November 18, 2016, 10:32. INDICATIONS : Shortness of breath. MEDICAL HISTORY : Cardiovascular disease. Diabetes mellitus type II. A-fib. SURGICAL HISTORY : None. ENCOUNTER: Initial ACUITY: 1 day PAIN SCORE: Non-responsive. LOCATION: Bilateral chest FINDINGS: The heart is mildly enlarged. There are bilateral pleural effusions and diffuse interstitial prominen ce suggesting congestive failure. This is stable compared to previous dated 11/18/16. There is continu ed consolidation at the left lung base. The patient has been extubated. The nasogastric tube has been removed. There degenerative changes within the spine and shoulders. CONCLUSION: 1. Continued basilar effusions and diffuse interstitial prominence suggesting congestive failure. 2. Continued consolidation at the left lung base. Anthony Burns MD on November 21, 2016 at 9:53 Board Certified Radiologist. This report was verified electronically.
--- NOTE | 2016-11-21 09:58 | HHI.PR ---
Subjective Remarks Paged by the nurse. Patient is noted requiring more O2, deteriorating. Patient with sob, no chest pain , no cough, n/v/d/c. Also is note dmore lethargic. Has worsened LE edema. No fevr or chills. Right sided weakness. Not able to move much right side either today. he is weak. Objective Vitals Vital Signs Date Time Temp Pulse Resp B/P (MAP) Pulse Ox O2 Delivery O2 Flow Rate FiO2 11/21/16 08:00 100.4 107 22 127/59 (81) 98 11/21/16 04:36 98.6 106 20 124/58 (80) 96 11/21/16 04:06 93 Nasal Cannula 4.00 11/21/16 00:30 99.2 104 22 112/71 (85) 97 11/20/16 21:40 92 Nasal Cannula 3.00 11/20/16 20:37 98.4 111 19 139/78 (98) 94 11/20/16 16:16 93 21 11/20/16 16:00 112 11/20/16 16:00 98.8 102 20 141/62 (88) 92 11/20/16 12:00 98 11/20/16 12:00 98.7 98 24 128/65 (86) 98 11/20/16 10:00 112 I/O 11/20/16 11/20/16 11/20/16 11/21/16 11/21/16 11/21/16 07:00 15:00 23:00 07:00 15:00 23:00 Intake Total 1862.5 ml 152 ml 240 ml 60 ml Output Total 775 ml 900 ml 600 ml Balance 1087.5 ml 152 ml -660 ml 60 ml -600 ml Intake Oral 240 ml 240 ml 60 ml IV Total 1622.5 ml 152 ml Tube Feeding 0 ml Other 0 ml Output Urine Total 775 ml 900 ml 600 ml # Bowel Movements 0 1 Result Diagram: 11/20/16 0045 11/20/16 1947 Imaging Last Impressions Chest X-Ray 11/21/16 0000 Signed Impressions: Service Date/Time: Monday, November 21, 2016 09:25 - CONCLUSION: 1. Continued basilar effusions and diffuse interstitial prominence suggesting congestive failure. 2. Continued consolidation at the left lung base. Anthony Burns MD Transcranial Doppler Study Complete 11/17/16 0000 Signed Impressions: Service Date/Time: Thursday, November 17, 2016 10:03 - CONCLUSION: 1. Nondiagnostic examination due to poor transcranial windows. Konstantin Dash MD Head CT 11/14/16 0600 Signed Impressions: Service Date/Time: Monday, November 14, 2016 06:29 - CONCLUSION: 1. Evolving bifrontal contusions, subdural and subarachnoid hemorrhage. 2. No intercurrent hemorrhage or herniation. Konstantin Dash MD Abdomen X-Ray 11/12/16 0000 Signed Impressions: Service Date/Time: Saturday, November 12, 2016 08:23 - CONCLUSION: 1. Gastric tube in good position. 2. Probable right renal stones. Narayan Coulter MD Cervical Spine CT 11/09/161950 Signed Impressions: Service Date/Time: Wednesday, November 09, 2016 20:14 - CONCLUSION: Negative trauma CT. Cj Isidro MD Objective Remarks GENERAL: 80 yo male, in bed, lethargic , but responding to vocal stimuli opens eyes, not able to move right side also left side of his body. With sob, on ventimask EYES: No scleral icterus. No injection or drainage. NECK: Supple, trachea midline. No JVD or lymphadenopathy. CARDIOVASCULAR: Regular rate and rhythm without murmurs, gallops, or rubs. RESPIRATORY: Breath sounds decreased, bibasilar crackles. No accessory muscle use. GASTROINTESTINAL: Abdomen soft, non-tender, nondistended. MUSCULOSKELETAL: No cyanosis, or edema. BACK: Nontender without obvious deformity. No CVA tenderness. NEURO: Doesn't follow commands, opens eyes to vocal stimuli, not able to rise hands or legs when asked. Date of Insertion: Nov 12, 2016 Line: Central Venous Catheter Side: Right Location: Internal, Jugular A/P Problem List: (1) Subdural hematoma ICD Code: I62.00 - Nontraumatic subdural hemorrhage, unspecified Status: Acute (2) Diabetes ICD Code: E11.9 - Type 2 diabetes mellitus without complications (3) Leukocytosis ICD Code: D72.829 - Elevated white blood cell count, unspecified Status: Acute (4) HTN (hypertension) ICD Code: I10 - Essential (primary) hypertension Status: Chronic Assessment and Plan Acute respiratory insufficiency secondary to altered mental status Extubated 11/19 Patient was transferred to med/surg floor and on 11/21 noted more lethargic and with sob, patiemt with acute repiratory failure 2/2 fluid overload. CXR with congestion. Receive lasix 40 IV x 1 time, prabhakar placed for accurate OP , had 1800 UOP after lasix. Respiratory status improving. ABG, cbc, bmp, LA stat. Patient was transferred back to ICU for further care, [place] [facility] consulted. Patient is also noted more letahrgic will repeat CT head, discussed with Villa MELENDREZ from neurosurgical team Neuro/Psych: Closed head injury - Traumatic Bilateral large intra-parenchymal hemorrhages/right temporal/parietal subdural hematoma and bifrontal contusions Nonconvulsive seizures CT brain 11/11 revealed bi frontal contusions, right temporal/parietal subdural hematoma around 8 mm in subarachnoid hemorrhage EEG 11/11 revealed mild to moderate encephalopathy. Right frontal/central generalized slowing with intermittent sharps waves Repeat EEG 11/12 revealed 2 clinical seizure activities that cessation with 2 mg Ativan IV 1. Repeat EEG today pending Currently on fosphenytoin 100 mg IV every 6 hours. A.m. level pending. Along with levetiracetam 1000 mg IV twice a day. Neurosurgery/Dr. Godfrey follows CV: Atrial fibrillation Hypertension Currently on lopressor with parameters for heart rate and blood pressure Not requiring vasopressors and/or antihypertensives. Goal keep systolic blood pressure less than 150 Resp: GI: Docusate sodium 100 mg twice a day/senna 8.6 mg twice a day for bowel regimen : BPH Maintain Prabhakar Currently on tamsulosin 0.4 mg by mouth daily and tolterodine 2 mg by mouth daily - hospital substitution for finasteride 5 mg by mouth daily Endo: Diabetes mellitus - hemoglobin A1c 6.0 Currently on Novulin R sliding scale insulin every 6 hours to maintain euglycemia Add levemir bid. Renal: Creatinine currently within normal limits Monitor urine output Accurate I's and O's Heme: Leukocytosis Normocytic anemia Coags within normal limit ID: Cultures 11/17 Vanc, Cefepime started 11/17 Pertinent cultures 11/11 - blood cultures 2 - no growth FEN: Hypophosphatemia MSK: Physical therapy evaluate and treat Access Left IJ CVL day #7 placed 11/12/2016 -> removed. Prophylaxis - GI - lanosprazole DVT - SCD/pharmacological prophylaxis when okay with neurosurgery Transfer to ICU as patient is deteriorating. Miracle Stanton MD Nov 21, 2016 09:58
[2016-11-21 10:04] LABS: HEMATOCRIT 29.9 % (39.0-51.0); MEAN CELL VOLUME 91.3 FL (80.0-100.0); MEAN CORPUSCULAR HEMOGLOBIN 29.5 PG (27.0-34.0); MEAN CORPUSCULAR HGB CONC 32.4 % (32.0-36.0); PLATELET COUNT 269 TH/MM3 (150-450); RED BLOOD COUNT 3.28 MIL/MM3 (4.50-5.90); RED CELL DISTRIBUTION WIDTH 17.6 % (11.6-17.2); REVIEW FLAG FINAL; WHITE BLOOD COUNT 9.4 TH/MM3 (4.0-11.0)
--- NOTE | 2016-11-21 10:07 | HHI.FPPN ---
Addendum to progress note ADDENDUM Reason for addendum: Additonal documentation Additional information S: Adrian Greenberg and Jackie responded to [facility] on 11/21/16 @ 0920 hours to Rm 1525 where Mr Garza, an 80 YO male was found with increased WOB, respiratory distress and AMS. Pt was admitted on 11/09 with subdural hematoma and recently moved out of the ICU yesterday. ST saw him yesterday and cleared him for PO intake of thick liquids. Pt was tachycardic with labored breathing and hypertensive. Additionally, spoke to [id number] who told us Mr Garza was speaking, walking and talking yesterday, but this morning on arrival she found him with labored breathing and not at baseline. Spoke to PARVIN White to coordinate care. O: Vitals: T-100.4, P-108, RR-32, BP 170/88 and 100% on nonrebreather Fasting BS 108 Physical Exam: Gen: elderly male had to rouse lying in bed on nonrebreather mask on 100% O2 HEENT: NCAT CV: tachycardic w/regular rhythm, no m/r/g Pulm: course breath sounds in bilateral lung magana, R worse than L Abdom: soft, no rebound or guarding or apparent tenderness, no masses Laboratory Tests Test 11/09/16 20:05 11/09/16 22:44 11/10/16 02:50 11/11/16 04:58 Hemoglobin A1c 6.0 % Urine Color YELLOW Urine Turbidity CLEAR Urine pH 5.5 Urine Specific [place] 1.014 Urine Protein NEG mg/dL Urine Glucose (UA) NEG mg/dL Urine Ketones 10 mg/dL Urine Occult Blood NEG Urine Nitrite NEG Urine Bilirubin NEG Urine Urobilinogen LESS THAN 2.0 MG/DL Urine Leukocyte Esterase NEG Urine RBC 1 /hpf Urine WBC 1 /hpf Urine Squamous Epithelial Cells <1 /hpf Urine Hyaline Casts 3 /lpf Microscopic Urinalysis Comment CULT NOT INDICATED Nasal Screen MRSA (PCR) MRSA NOT DETECTED Myelocytes 1 % Test 11/12/16 09:12 11/14/16 03:45 11/15/16 18:19 11/17/16 06:05 Prothrombin Time 11.7 SEC Prothromb Time International Ratio 1.1 RATIO Activated Partial Thromboplast Time 37.0 SEC Fibrinogen 432 mg/dL Ammonia 27 MCMOL/L B-Type Natriuretic Peptide 541 PG/ML Red Cell Morphology Comment NORMAL Serum Osmolality 327 MOSM/KG Blood Gas Ventilator Setting PRVC / AC / Test 11/18/16 07:15 11/18/16 14:21 11/19/16 10:20 11/20/16 00:45 Random Vancomycin Level 9.8 COMMENT Plasma Cells % Keratocytes 1+ Band Neutrophils % 2 % Nucleated Red Blood Cells 1 /100 WBC Basophilic Stippling MOD Protein Corrected Calcium 7.3 MG/DL Thyroid Stimulating Hormone 3rd Gen 1.040 uIU/ML Phenytoin (Dilantin) Level 11.2 MCG/ML Neutrophils (%) (Auto) 39.4 % Lymphocytes (%) (Auto) 52.4 % Monocytes (%) (Auto) 6.3 % Eosinophils (%) (Auto) 1.6 % Basophils (%) (Auto) 0.3 % Neutrophils # (Auto) 4.7 TH/MM3 Lymphocytes # (Auto) 6.3 TH/MM3 Monocytes # (Auto) 0.8 TH/MM3 Eosinophils # (Auto) 0.2 TH/MM3 Basophils # (Auto) 0.0 TH/MM3 CBC Comment AUTO DIFF Differential Total Cells Counted 100 Neutrophils % (Manual) 70 % Lymphocytes % 27 % Monocytes % 2 % Eosinophils % 1 % Neutrophils # (Manual) 8.4 TH/MM3 Differential Comment FINAL DIFF MANUAL Smudge Cells PRESENT Platelet Estimate NORMAL Platelet Morphology Comment NORMAL Ovalocytes 1+ Acanthocytes OCC Test 11/20/16 02:39 11/20/16 19:47 11/21/16 09:15 11/21/16 09:32 Vancomycin Level Trough 18.8 MCG/ML Estimat Glomerular Filtration Rate 108 ML/MIN Blood Urea Nitrogen 24 MG/DL Creatinine 0.70 MG/DL Random Glucose 168 MG/DL Calcium Level 7.9 MG/DL Phosphorus Level 2.2 MG/DL Magnesium Level 2.4 MG/DL Sodium Level 153 MEQ/L Potassium Level 3.5 MEQ/L Chloride Level 119 MEQ/L Carbon Dioxide Level 26.6 MEQ/L Blood Gas Puncture Site LT RADIAL Blood Gas Patient Temperature 98.6 Blood Gas HCO3 27 mmol/L Blood Gas Base Excess 3.9 mmol/L Blood Gas Oxygen Saturation 98 % Arterial Blood pH 7.52 Arterial Blood Partial Pressure CO2 34 mmHg Arterial Blood Partial Pressure O2 293 mmHg Arterial Blood Oxygen Content 16.1 Vol % Arterial Blood Carboxyhemoglobin 1.4 % Arterial Blood Methemoglobin 0.7 % Blood Gas Hemoglobin 11.2 G/DL Oxygen Delivery Device NRBR Blood Gas Liter Flow 15 L/M Blood Gas Inspired Oxygen 100 % White Blood Count 9.4 TH/MM3 Red Blood Count 3.28 MIL/MM3 Hemoglobin 9.7 GM/DL Hematocrit 29.9 % Mean Corpuscular Volume 91.3 FL Mean Corpuscular Hemoglobin 29.5 PG Mean Corpuscular Hemoglobin Concent 32.4 % Red Cell Distribution Width 17.6 % Platelet Count 269 TH/MM3 Mean Platelet Volume 8.0 FL A/P: 80 YO male w/increased WOB and respiratory distress with decreased mentation and hard to rouse. DDx: Oversedation vs fluid overload vs Aspiration vs. PE vs CVA Plan: -ABG--pH 7.52, PCO2 33, PO2 293, HCO3 27, BE 3.9, Hgb 11.2 -CXR--my reading: showed bilateral atelectasis with possible bibasilar consolidation -EKG -Troponin, CMP, CBC, D-dimer, Lactate -Lasix 40 mg IV -Duonebs -Chest CT if D-dimer high -Consider CT head -Spoke to PARVIN White who agreed with the plan -Transfer back to ICU for further mgmt Rancho Mejia MD R1 Nov 21, 2016 10:07
[2016-11-21] MEDS ORDERED: POTASSIUM CHLOR 20 MEQ PREMIX 100 ML IV ONE (10:15)
--- NOTE | 2016-11-21 10:25 | HHI.NSPN ---
(CindyBrennon MACIAS) History Chief Complaint: Unable to obtain due to patient's mental condition. (CindyBrennon MACIAS) Interval History 11/09: 80-year-old male who according to his family was going up a step into the house with his cane when he fell backwards, striking the back of his head. He was reportedly unconscious for 10-15 minutes. He then had some shaking in the extremities as he was waking up. He has been somewhat sleepy and a little confused since he woke up at the patient's family states that he is conversing reasonably well with them. He normally is fairly independent, ambulating with a cane and is usually mentally alert with only mild memory loss. Positive emesis reported. Patient has no complaint of headache or neck pain. No complaint of low back or joint pain. 11/10: nursing reports agitated overnight, currently sleeping. f/u CT Head completed, moves all four extremities. son translated - oriented to name and place only. 11/11: Notified by PARVIN Stoner, that Nursing had notified her that the patient's mental status was worse this morning and that she had ordered a stat CT brain. When seen this morning the patient is obtunded and not answering to verbal stimuli. Nursing reports that CT had called and was sending someone up to transport the patient to the scanner. She stated that the patient did receive morphine and hydrocodone during the night for pain because he was agitated. 11/12: The patient has been intubated this morning due to persistent decreased mental status. Possibly a few more episodes of seizure activity reported last evening. He is continuing on Dilantin and Keppra for seizures. 11/13: The patient still is intubated, mechanically ventilated and sedated with midazolam. He does not respond to noxious stimulation. The EEG done yesterday morning did demonstrate seizure activity. Neurology evaluated the patient yesterday and adjusted his anti-epileptic medications. An EEG was done this morning prior to the patient being seen. 11/14: The patient remains intubated. A midazolam drip is still infusing as is a fentanyl drip. A repeat Ct brain this morning demonstrated evolving contusions and haemorrhages. 11/15: The patient is intubated without any sedation. The midazolam and fentanyl infusions were discontinued yesterday. A 3% saline drip continues to infuse. He did have a slight twitching of the eyelids when his name was called but no eye opening. 11/16: This morning the patient opened his eyes to verbal stimulation. He continues to be intubated without any sedation. 11/17/16: Patient remains intubated. He had a dose of intravenous sedation last night for agitation. Remains relatively alert. Positive fever last evening. Some difficulty with hemodynamic instability last evening. 11/18: The patient is on a cooling blanket with ice packs when seen this morning. He continues to be intubated. He does look to whomever is speaking and did follow commands. 11/19: The patient is asleep but awakens on his own. He was extubated this morning and is now on a nasal cannula. He follows commands and moves all his extremities to a degree. He does tell his daughter that he is tired. The family reports earlier that the patient did ask where his and son were by name. 11/20: When seen this afternoon the patient had just been transferred to a regular med/surg floor. He appears mildly distressed and is moaning. His daughter states that he has said he has pain all over. 11/21: Notified by [facility] physician (Dr Mejia, PGY1) that patient was having increased respiratory effort. He reported that the patient's oxygen saturation was satisfactory but the chest x-ray demonstrated fluid overload. Therefore 40 mg furosemide IV was ordered as was a nebuliser treatment. When seen the patient appeared moderately distress and had just received the furosemide with the nebuliser treatment ongoing. The Charge Nurse reported that the patient was lethargic and not responding to commands. He reported that the Payment Processor is aware that the patient is being transferred to [facility] for further care and management. The Hospitalist was present and evaluating the patient. (Brennon Wihte) System Review Comments Unable to obtain due to patient's mental condition. (Brennon White) Exam Results 11/19/16 11/19/16 11/20/16 11/20/16 11/21/16 11/21/16 05:59 17:59 05:59 17:59 05:59 17:59 Intake Total 666 ml 1052 ml 2180.0 ml 1732 ml 60 ml Output Total 3250.0 ml 475.0 ml 650 ml 1675 ml 600 ml Balance -2584.0 ml 577.0 ml 1530.0 ml 57 ml 60 ml -600 ml Intake Oral 480 ml 60 ml IV Total 666 ml 152 ml 1849.0 ml 1252 ml Tube Feeding 600 ml 281 ml 0 ml Other 300 ml 50 ml 0 ml Output Urine Total 3250 ml 475 ml 650 ml 1675 ml 600 ml Tube Feeding Residual Discard 0 ml 0 ml # Bowel Movements 1 0 0 0 1 Vital Signs Date Time Temp Pulse Resp B/P (MAP) Pulse Ox O2 Delivery O2 Flow Rate FiO2 11/21/16 08:00 100.4 107 22 127/59 (81) 98 11/21/16 04:36 98.6 106 20 124/58 (80) 96 11/21/16 04:06 93 Nasal Cannula 4.00 11/21/16 00:30 99.2 104 22 112/71 (85) 97 11/20/16 21:40 92 Nasal Cannula 3.00 11/20/16 20:37 98.4 111 19 139/78 (98) 94 11/20/16 16:16 93 21 11/20/16 16:00 112 11/20/16 16:00 98.8 102 20 141/62 (88) 92 11/20/16 12:00 98 11/20/16 12:00 98.7 98 24 128/65 (86) 98 11/20/16 10:00 112 11/20/16 08:00 110 11/20/16 08:00 98.5 114 26 119/66 (83) 96 11/20/16 07:41 99 Nasal Cannula 2.00 11/20/16 07:00 100 Nasal Cannula 2.00 11/20/16 06:00 111 11/20/16 04:00 97.5 105 24 107/71 (83) 97 11/20/16 04:00 105 11/20/16 02:00 102 11/20/16 00:00 98.2 100 26 110/55 (73) 97 11/20/16 00:00 100 11/19/16 22:00 104 11/19/16 21:00 98 Nasal Cannula 2.00 11/19/16 20:00 99.0 112 22 113/60 (77) 100 11/19/16 20:00 112 11/19/16 19:00 98 Nasal Cannula 2.00 11/19/16 18:00 110 11/19/16 16:00 106 11/19/16 16:00 98 Nasal Cannula 2.00 11/19/16 16:00 98.4 106 35 118/63 (81) 99 11/19/16 14:00 100 11/19/16 12:00 98.9 98 32 119/56 (77) 100 11/19/16 12:00 105 11/19/16 10:35 100 Nasal Cannula 4.00 11/19/16 10:35 100 Nasal Cannula 4 11/19/16 10:00 98 11/19/16 09:53 Nasal Cannula 30 11/19/16 09:10 30 11/19/16 08:43 100 30 11/19/16 08:00 102 11/19/16 08:00 98.7 102 24 146/69 (94) 98 11/19/16 08:00 30 11/19/16 07:00 100 Mechanical Ventilator 30 11/19/16 06:00 94 11/19/16 04:40 96 30 11/19/16 04:00 30 11/19/16 04:00 99 11/19/16 04:00 99.5 100 28 147/72 (97) 100 11/19/16 02:00 96 11/19/16 01:23 100 30 11/19/16 00:00 30 11/19/16 00:00 100.0 133 29 111/69 (83) 100 11/19/16 00:00 133 11/18/16 23:30 130 11/18/16 23:00 100 30 11/18/16 22:18 100 30 11/18/16 22:00 100 11/18/16 21:35 100 30 11/18/16 20:00 30 11/18/16 20:00 98.2 104 28 127/60 (82) 100 11/18/16 20:00 104 11/18/16 19:16 100 30 11/18/16 19:00 100 Mechanical Ventilator 30 11/18/16 18:00 103 11/18/16 16:13 98 30 11/18/16 16:00 30 11/18/16 16:00 102 11/18/16 16:00 98.7 102 30 135/80 (98) 99 11/18/16 14:00 108 11/18/16 12:00 100.0 105 30 134/67 (89) 99 11/18/16 12:00 30 11/18/16 12:00 105 11/18/16 11:31 100 30 (Brennon White) Physical Examination GENERAL: Patient lethargic. He appears moderately distressed & uncomfortable. SKIN: Cool, dry & intact w/o any evident rashes, ulcerations or lesions. HEENT: Normocephalic. Pupils appear essentially equal reactive. NECK: No JVD, trachea midline. CARDIOVASCULAR: S1S2 w/RRR w/o M/G/R, radial & pedal pulses 2+ bilaterally, cap refill < 2 sec, increased pedal edema bilaterally this morning. RESPIRATORY: Coarse bilaterally, equal excursion, moderately laboured & tachypneic, on neb tx. GASTROINTESTINAL: Abdomen distended, nontender, bowel sounds not appreciated. MUSCULOSKELETAL: No evident deformity or clubbing. NEUROLOGICAL: Lethargic but opens eyes to verbal stimulation. GCS 10-11 (E3 V2 M5-6). No verbalisation except for moaning. Opens eyes to voice and looks at speaker. PERRLA reactive. Seems to follow simple commands. He appears to slightly move the left hand to verbal stimulation. No other movement noted to command. He was also noted to move the left hand spontaneously. Unable to assess sensation. Addendum at 1127: The patient still is lethargic. He spontaneously moves the right & left hands. His only verbalisation is moaning. He does open his eyes to voice and looks at the speaker. No motor response to noxious stimulation of either lower extremity. He is now in ISC. BET (Brennon White) Lab, Micro, Other Results Imaging Addendum at 1110: I personally reviewed the CT brain completed this morning which demonstrated continued evolution of the bleeds. No acute bleeds noted. BET Laboratory Tests Test 11/18/16 14:21 11/18/16 20:35 11/19/16 10:20 9/14/17 00:45 White Blood Count 25.4 TH/MM3 14.2 TH/MM3 12.0 TH/MM3 Red Blood Count 3.67 MIL/MM3 3.05 MIL/MM3 2.96 MIL/MM3 Hemoglobin 11.1 GM/DL 9.3 GM/DL 8.7 GM/DL Hematocrit 34.5 % 27.7 % 27.0 % Mean Corpuscular Volume 94.1 FL 91.0 FL 91.0 FL Mean Corpuscular Hemoglobin 30.3 PG 30.5 PG 29.3 PG Mean Corpuscular Hemoglobin Concent 32.2 % 33.5 % 32.1 % Red Cell Distribution Width 18.8 % 17.8 % 18.3 % Platelet Count 192 TH/MM3 203 TH/MM3 257 TH/MM3 Mean Platelet Volume 9.0 FL 9.0 FL 8.8 FL Neutrophils (%) (Auto) 41.5 % 48.9 % 39.4 % Lymphocytes (%) (Auto) 49.9 % 42.2 % 52.4 % Monocytes (%) (Auto) 7.5 % 6.5 % 6.3 % Eosinophils (%) (Auto) 0.8 % 2.0 % 1.6 % Basophils (%) (Auto) 0.3 % 0.4 % 0.3 % Neutrophils # (Auto) 10.5 TH/MM3 7.0 TH/MM3 4.7 TH/MM3 Lymphocytes # (Auto) 12.7 TH/MM3 6.0 TH/MM3 6.3 TH/MM3 Monocytes # (Auto) 1.9 TH/MM3 0.9 TH/MM3 0.8 TH/MM3 Eosinophils # (Auto) 0.2 TH/MM3 0.3 TH/MM3 0.2 TH/MM3 Basophils # (Auto) 0.1 TH/MM3 0.1 TH/MM3 0.0 TH/MM3 CBC Comment AUTO DIFF AUTO DIFF AUTO DIFF Differential Total Cells Counted 100 100 100 Neutrophils % (Manual) 51 % 52 % 70 % Band Neutrophils % 3 % 2 % Lymphocytes % 38 % 42 % 27 % Monocytes % 8 % 2 % 2 % Neutrophils # (Manual) 13.7 TH/MM3 7.7 TH/MM3 8.4 TH/MM3 Differential Comment FINAL DIFF MANUAL FINAL DIFF MANUAL FINAL DIFF MANUAL Plasma Cells % Smudge Cells PRESENT PRESENT PRESENT Platelet Estimate NORMAL NORMAL NORMAL Platelet Morphology Comment NORMAL NORMAL NORMAL Ovalocytes 1+ 1+ 1+ Keratocytes 1+ Blood Urea Nitrogen 33 MG/DL 39 MG/DL Creatinine 0.66 MG/DL 0.59 MG/DL Random Glucose 211 MG/DL 118 MG/DL Calcium Level 8.3 MG/DL 6.7 MG/DL Sodium Level 147 MEQ/L 149 MEQ/L Potassium Level 4.1 MEQ/L 3.9 MEQ/L Chloride Level 114 MEQ/L 114 MEQ/L Carbon Dioxide Level 24.5 MEQ/L 28.2 MEQ/L Anion Gap 9 MEQ/L 7 MEQ/L Estimat Glomerular Filtration Rate 116 ML/MIN 132 ML/MIN Eosinophils % 2 % 1 % Nucleated Red Blood Cells 1 /100 WBC Basophilic Stippling MOD Acanthocytes OCC OCC Total Protein 5.8 GM/DL Phosphorus Level 1.9 MG/DL Magnesium Level 2.3 MG/DL Protein Corrected Calcium 7.3 MG/DL Troponin I 0.11 NG/ML Thyroid Stimulating Hormone 3rd Gen 1.040 uIU/ML Phenytoin (Dilantin) Level 11.2 MCG/ML Test 11/20/16 02:39 11/20/16 19:47 11/21/16 09:15 11/21/16 09:32 Blood Urea Nitrogen 29 MG/DL 24 MG/DL Creatinine 0.51 MG/DL 0.70 MG/DL Random Glucose 118 MG/DL 168 MG/DL Calcium Level 7.6 MG/DL 7.9 MG/DL Sodium Level 151 MEQ/L 153 MEQ/L Potassium Level 3.4 MEQ/L 3.5 MEQ/L Chloride Level 119 MEQ/L 119 MEQ/L Carbon Dioxide Level 23.8 MEQ/L 26.6 MEQ/L Anion Gap 8 MEQ/L 7 MEQ/L Estimat Glomerular Filtration Rate 156 ML/MIN 108 ML/MIN Phosphorus Level 3.3 MG/DL 2.2 MG/DL Vancomycin Level Trough 18.8 MCG/ML Magnesium Level 2.4 MG/DL Blood Gas Puncture Site LT RADIAL Blood Gas Patient Temperature 98.6 Blood Gas HCO3 27 mmol/L Blood Gas Base Excess 3.9 mmol/L Blood Gas Oxygen Saturation 98 % Arterial Blood pH 7.52 Arterial Blood Partial Pressure CO2 34 mmHg Arterial Blood Partial Pressure O2 293 mmHg Arterial Blood Oxygen Content 16.1 Vol % Arterial Blood Carboxyhemoglobin 1.4 % Arterial Blood Methemoglobin 0.7 % Blood Gas Hemoglobin 11.2 G/DL Oxygen Delivery Device NRBR Blood Gas Liter Flow 15 L/M Blood Gas Inspired Oxygen 100 % White Blood Count 9.4 TH/MM3 Red Blood Count 3.28 MIL/MM3 Hemoglobin 9.7 GM/DL Hematocrit 29.9 % Mean Corpuscular Volume 91.3 FL Mean Corpuscular Hemoglobin 29.5 PG Mean Corpuscular Hemoglobin Concent 32.4 % Red Cell Distribution Width 17.6 % Platelet Count 269 TH/MM3 Mean Platelet Volume 8.0 FL (Brennon White) Medical Decision Making Impression and Plan Impression: 1. Traumatic brain injury 2. Hypertension 3. Diabetes 4. Respiratory failure 5. Seizures No leukocytosis this morning. Blood cultures x2 () positive for Staphylococcus aureus, Staphylococcus epidermidis & Streptococcus species, on vancomycin, sensitivities pending. Patient with essentially stable neurological examination compared to yesterday. Respiratory distress w/alkalosis. Addendum at 1140: Labs from [facility]: Sodium 149=>154; troponin I 0.08 , lactic acid: 1.5; BNP still pending. BET Plan: Plan of care discussed with patient's daughter & Hospitalist. Critical care management per Payment Processor. Frequent neuro checks. Continue present diabetic medications with insulin sliding scale. Non-chemical DVT prophylaxis. Ulcer prophylaxis. Will follow blood culture sensitivities. Stat CT brain. Transfer to [facility]. (Brennon White) Attending Statement The exam, history, and the medical decision-making described in the above note were completed with the assistance of the mid-level provider. I reviewed and agree with the findings presented. I attest that I had a [id number] encounter with the patient on the same day, and personally performed and documented my assessment and findings in the medical record. Mild improvement in neurologic exam Respiratory treatments as needed Continue non-chemical DVT prophylaxis (Tony Godfrey MD) Brennon White Nov 21, 2016 10:25 Tony Godfrey MD Dec 15, 2016 05:35
[2016-11-21 10:28] LABS: BICARBONATE 25.8 MEQ/L (21.0-32.0)
[2016-11-21 10:29] LABS: POTASSIUM 3.8 MEQ/L (3.5-5.1)
[2016-11-21 10:42] LABS: BICARBONATE 25.7 MEQ/L (21.0-32.0); CALCIUM-PROTEIN CORRECTED 8.3 MG/DL (8.5-10.1); POTASSIUM 3.6 MEQ/L (3.5-5.1); TOTAL BILIRUBIN ADULT 1.2 MG/DL (0.2-1.0)
[2016-11-21 10:42] LABS: CALCIUM-PROTEIN CORRECTED 8.3 MG/DL (8.5-10.1)
--- NOTE | 2016-11-21 11:02 | RADRPT ---
EXAM DATE/TIME: 11/21/2016 10:22 [place] COMPARISON: CT BRAIN W/O CONTRAST, November 10, 2016, 4:50. CT BRAIN W/O CONTRAST, November 09, 2016, 20:14. CT BRAIN W/O CONTRAST, November 14, 2016, 6:29. INDICATIONS : Altered mental status. RADIATION DOSE: 32.06 CTDIvol (mGy) MEDICAL HISTORY : Cardiovascular disease. Neck cancer SURGICAL HISTORY : None. ENCOUNTER: Initial ACUITY: 1 day PAIN SCALE: Non-responsive LOCATION: neck TECHNIQUE: Multiple contiguous axial images were obtained of the head. Using automated exposure control and adj ustment of the mA and/or kV according to patient size, radiation dose was kept as low as reasonably a chievable to obtain optimal diagnostic quality images. DICOM format image data is available electro nically for review and comparison. FINDINGS: There has been no significant interval change. Multifocal brain contusions are grossly stable. Predom inantly hygromas subdural fluid is again seen layering over the right convexity with some high densit y subdural fluid along the tentorium asymmetric to the right. The ventricles are stable. There is sli ght leftward subfalcine deviation which is unchanged. The basal cisterns remain patent. No new areas of hemorrhage are identified. CONCLUSION: Grossly stable brain appearance Lonnie Blanchard MD on November 21, 2016 at 10:56 Board Certified Radiologist. This report was verified electronically.
--- NOTE | 2016-11-21 13:46 | EKG ---
Date Performed: 11/21/2016 Time Performed: 10:53:58 PTAGE: 80 years EKG: Sinus rhythm BORDERLINE RIGHT AXIS DEVIATION SEPTAL MYOCARDIAL INFARCTION , PROBABLY OLD ABNORMAL ECG PREVIOUS TRACING : 11/18/2016 23.23 Sinus rhythm has replaced atrial fibrillation compared to t he old tracing. DOCTOR: Bola Walker Interpretating Date/Time 11/21/2016 13:46:16
--- NOTE | 2016-11-21 14:02 | OTSOAPIP ---
TIME SESSION COMPLETED: 2PM TREATMENT TIME: 0 MINS. CHART REVIEWED. S: EVALUATION ORDER RECEIVED O: PATIENT HALICAT TO [facility] THIS AM A: PATIENT RESPONSE TO TREATMENT:PATIENT HAD CHANGE IN STATUS P: CANCEL OT ORDER UNTIL NEW ORDERS REQUESTED _ Therapist: Danae Graham OTR/L Signature on file
--- NOTE | 2016-11-21 14:09 | HHI.CCPN ---
Subjective Remarks/Hospital Course 80 y/o man fell backwards two days ago and hit the back of his head quite hard. LOC and vomiting followed by general lethargy, but conversant and responsive. I was asked to see him by nurse today for lack of responsiveness about 1100 hours. Unresponsive now and morning head CT demonstrates increased edema surrounding intraparenchymal hemorrhages, unchanged subdural collections. Stat EEG revealed generalized seizure activity. Discussed with Neurosurgery Service and AED started. Patient protects airway well, nonconvulsive. 11/12: Patient unresponsive and looking towards left. On fosphenytoin 100 mg IV every 8 hours and levetiracetam 1000 mg IV twice a day. Will need intubation along with central line placed for 3% hypertonic saline Subjective 11/13: Intubated yesterday severity ongoing seizure activity. EEG revealed cessation of seizure activity with lorazepam injection.. Tolerating tube feeding. No bowel movement. Afebrile. 11/14: Gas exchange acceptable. CT head worrisome. CXR with accumulating effusions. Daughter at bedside. 11/15: Severe neurological injury following backward fall. Medical therapy is maximized regarding prevention of cerebral edema and maintenance of cerebral perfusion. 11/16: Unresponsive. Serum well concentrated. 11/17: He became hemodynamically unstable last night, associated with temp 103. Cultures obtained, abx started. Will remove central line. No neuro improvement. 11/18: Increased activity but not following commands. Remains edematous. Afebrile today. Temp 102.2, await sputum C&S. 11/19: Breathing with more comfort but tachypneic. Gas exchange good. Will try to extubate - 50/50 chance of success. Blood with 2/4 GPC, on vancomycin. 11/20: 80 y/o man fell backwards hitting his head about 11 days ago. Received SDHs and alejandro contusions with hemorrhage. Required intubation 7 days ago for obtundation. Now extubated 11/19 and breathing comfortably. Passed swallow evaluation for thickened liquids. Will need rehab for speech, swallowing. Generally weak. Fever to 103 3 nights ago, blood grew Staph 2/4 bottles. On vancomycin. No source identified. No central lines at the time. 11/21: More SOB today, less alert. Moves 4 limbs with strength Objective Vital Signs Date Time Temp Pulse Resp B/P (MAP) Pulse Ox O2 Delivery O2 Flow Rate FiO2 11/21/16 12:00 99.3 111 36 140/67 (91) 100 11/21/16 04:06 Nasal Cannula 4.00 11/20/16 16:16 21 Intake and Output 11/21/16 11/21/16 11/22/16 08:00 16:00 00:00 Intake Total 60 ml Output Total 2400 ml Balance 60 ml -2400 ml Result Diagram: 11/21/16 0932 11/21/16 0932 Other Results Laboratory Tests Test 11/21/16 09:15 Blood Gas Puncture Site LT RADIAL Blood Gas Patient Temperature 98.6 Blood Gas HCO3 27 mmol/L (22-26) Blood Gas Base Excess 3.9 mmol/L (-2-2) Blood Gas Oxygen Saturation 98 % (90-100) Arterial Blood pH 7.52 (7.380-7.420) Arterial Blood Partial Pressure CO2 34 mmHg (38-42) Arterial Blood Partial Pressure O2 293 mmHg (61-120) Arterial Blood Oxygen Content 16.1 Vol % (12.0-20.0) Arterial Blood Carboxyhemoglobin 1.4 % (0-4) Arterial Blood Methemoglobin 0.7 % (0-2) Blood Gas Hemoglobin 11.2 G/DL (12.0-16.0) Oxygen Delivery Device NRBR Blood Gas Liter Flow 15 L/M Blood Gas Inspired Oxygen 100 % Imaging Last Impressions Chest X-Ray 11/12/16 0813 Signed Impressions: Service Date/Time: Saturday, November 12, 2016 08:15 - CONCLUSION: Right IJ catheter tip at the origin the superior vena cava. No evidence of pneumothorax. Narayan Coulter MD Abdomen X-Ray 11/12/16 0000 Signed Impressions: Service Date/Time: Saturday, November 12, 2016 08:23 - CONCLUSION: 1. Gastric tube in good position. 2. Probable right renal stones. Narayan Coulter MD Head CT 11/11/16 0000 Signed Impressions: Service Date/Time: Friday, November 11, 2016 09:44 - CONCLUSION: 1. Stable multiple intercranial contusions Blaine Shore MD Cervical Spine CT 11/09/161950 Signed Impressions: Service Date/Time: Wednesday, November 09, 2016 20:14 - CONCLUSION: Negative trauma CT. Cj Isidro MD Objective Remarks Gen: 80-year-old male, intubated Neck: Supple. Lungs: No wheezes, few crackles. Good air movement. Heart: RRR. S1S2. Without murmur, rubs. Neck veins full. Abdomen: Soft, nondistended, active bowel sounds. No guarding, no distention Extremities: Warm, well perfused. Trace edema persists feet. Neuro: Opens eyes, tracks, lethargic, conversant. Date of Insertion: Nov 12, 2016 Line: Central Venous Catheter Side: Right Location: Internal, Jugular A/P Assessment and Plan Neuro/Psych: Closed head injury - Traumatic Bilateral large intra-parenchymal hemorrhages/right temporal/parietal subdural hematoma and bifrontal contusions Nonconvulsive seizures CT brain 11/11 revealed bi frontal contusions, right temporal/parietal subdural hematoma around 8 mm in subarachnoid hemorrhage EEG 11/11 revealed mild to moderate encephalopathy. Right frontal/central generalized slowing with intermittent sharps waves Repeat EEG 11/12 revealed 2 clinical seizure activities that cessation with 2 mg Ativan IV 1. Repeat EEG today pending Currently on fosphenytoin 100 mg IV every 6 hours. A.m. level pending. Along with levetiracetam 1000 mg IV twice a day. Neurosurgery/Dr. Godfrey follows CV: Atrial fibrillation Hypertension Currently on lopressor with parameters for heart rate and blood pressure Not requiring vasopressors and/or antihypertensives. Goal keep systolic blood pressure less than 150 Resp: Acute respiratory insufficiency secondary to altered mental status Extubated 11/19 GI: Docusate sodium 100 mg twice a day/senna 8.6 mg twice a day for bowel regimen : BPH Maintain Noriega Currently on tamsulosin 0.4 mg by mouth daily and tolterodine 2 mg by mouth daily - hospital substitution for finasteride 5 mg by mouth daily Endo: Diabetes mellitus - hemoglobin A1c 6.0 Currently on Novulin R sliding scale insulin every 6 hours to maintain euglycemia Add levemir bid. Renal: Creatinine currently within normal limits Monitor urine output Accurate I's and O's Heme: Leukocytosis Normocytic anemia Coags within normal limit ID: Cultures 11/17 Vanc, Cefepime started 11/17 Pertinent cultures 11/11 - blood cultures 2 - no growth FEN: Hypophosphatemia MSK: Physical therapy evaluate and treat Access Left IJ CVL day #7 placed 11/12/2016 -> removed. Prophylaxis - GI - lanosprazole DVT - SCD/pharmacological prophylaxis when okay with neurosurgery Overall impression: Tolerating extubation. Very weak. Moving air well. Dev Loaiza MD Nov 21, 2016 14:09
[2016-11-21] MEDS: VANCOMYCIN INJ 2,250 MG in SODIUM CHLORID 0.9% 500 ML INJ 500 ML IV SCH (15:10)
[2016-11-21] MEDS: METOPROLOL TARTRATE 5 MG/5 ML VIAL IV PUSH PRN (15:18)
[2016-11-21] MEDS: FOSPHENYTOIN INJ 100 MGPE in SODIUM CHLORIDE 0.9% INJ 50 ML IV SCH ×4 (15:24→18:37)
--- NOTE | 2016-11-21 16:46 | PD.WCN.NOT ---
Wound Consult Description: Received consult from Doctor Josse regarding sacral pressure injury Communicated with: biomass power plant manager Jillian hamlin, JAYDEN Montoya [facility] Recommendation: Please cleanse sacral,buttock, and scrotal areas with soap and water, pat dry before applying Calazime barrier cream BID and PRN. Please obtain pressure relieving support surface K-4 bed from [facility]. Please continue to turn patient every 2 hours and PRN. Additional Information: Patient seen on [address] [place] [id number] for evaluation of sacral pressure injury. Patient to R side with the assistance of [employer] assurance manager Jillian hamlin to reveal DTI measures 7 cm x 6 cm that is opening to partial thickness skin loss that measures 4 cm x 3 cm x ~<0.1cm on sacral area. Patient cleansed of stool from bowel small bowel movement, with soap and water. Patient is also noted with some moisture related partial thickness skin loss to scrotal area.Patted patient dry before applying thick layer of Calazime barrier cream. Klever CARPENTERassurance manager positioned patient off of bottom to L side with pillows [facility] Nov 21, 2016 16:46
[2016-11-21] MEDS: CHLORHEXIDINE 0.12% (ORAL KIT) 15 ML CUP MT SCH (20:00)
[2016-11-21] MEDS: TAMSULOSIN HCL 0.4 MG CAP PO SCH (21:00)
[2016-11-21] MEDS: INSULIN DETEMIR 100 UNITS/ML VIAL SQ SCH (21:00)
[2016-11-21] MEDS: SENNOSIDES SYRUP 8.8 MG/5 ML CUP NG SCH (21:00)
[2016-11-21] MEDS: METOPROLOL TARTRATE 25 MG TAB PO SCH (21:00)
[2016-11-21] MEDS: POLYETHYLENE GLYCOL 17 GM PKG OG-TUBE SCH (21:00)
[2016-11-21] MEDS: DOCUSATE SODIUM 100 MG/10 ML UDC PO SCH (21:00)
[2016-11-21] MEDS: SODIUM CHLORIDE 0.9% FLUSH 10 ML FLUSH IV FLUSH SCH (22:27)
[2016-11-22] VITALS (20 sets, daily range): BP systolic 106–154; BP diastolic 57–68; PULSE 98–110; RESP 20–30; TEMP 98.2–99.1; O2SAT 95–100
[2016-11-22] MEDS: FOSPHENYTOIN INJ 100 MGPE in SODIUM CHLORIDE 0.9% INJ 50 ML IV SCH ×4 (01:07→19:08)
[2016-11-22] MEDS: INSULIN ASPART SUPPLEMENTAL SCALE SQ SCH ×4 (03:00→21:00)
[2016-11-22] MEDS: RESP: ALBUTEROL 2.5 MG/IPRATROPIUM 0.5 MG NEB (SCH) NEB ×2 (03:34→08:01)
[2016-11-22] MEDS: levETIRAcetam 1000 MG INJ 100 ML IV SCH ×3 (05:34→21:21)
[2016-11-22] MEDS ORDERED: PHARMACY ORDERED LAB ONE (06:45)
[2016-11-22 08:05] LABS: AUTOMATED NEUTROPHIL # 3.5 TH/MM3 (1.8-7.7); BASOPHIL % 0.5 % (0.0-2.0); EOSINOPHIL # 0.3 TH/MM3 (0-0.4); EOSINOPHIL % 2.3 % (0.0-4.0); HEMATOCRIT 29.2 % (39.0-51.0); HEMO FLAGS AUTO DIFF; LYMPH % 58.1 % (9.0-44.0); LYMPHOCYTE # 6.4 TH/MM3 (1.0-4.8); MEAN CELL VOLUME 91.2 FL (80.0-100.0); MEAN CORPUSCULAR HEMOGLOBIN 29.6 PG (27.0-34.0); MEAN CORPUSCULAR HGB CONC 32.4 % (32.0-36.0); NEUT % 32.1 % (16.0-70.0); PLATELET COUNT 252 TH/MM3 (150-450); RED BLOOD COUNT 3.21 MIL/MM3 (4.50-5.90); RED CELL DISTRIBUTION WIDTH 18.1 % (11.6-17.2)
[2016-11-22 08:23] LABS: BICARBONATE 26.8 MEQ/L (21.0-32.0); POTASSIUM 3.5 MEQ/L (3.5-5.1)
[2016-11-22] MEDS: ARTIFICIAL TEARS OPTH SOLN 15 ML BTL EACH EYE SCH ×3 (09:00→18:00)
[2016-11-22] MEDS: LACTULOSE SYRUP 20 GM/30 ML CUP PO SCH (09:00)
[2016-11-22] MEDS: INSULIN DETEMIR 100 UNITS/ML VIAL SQ SCH ×2 (09:00→22:00)
[2016-11-22] MEDS: FINASTERIDE 5 MG TAB PO SCH (09:00)
[2016-11-22] MEDS: TOLTERODINE TARTRATE 2 MG CAP LA PO SCH (09:00)
[2016-11-22] MEDS: LANSOPRAZOLE SOLUTAB 30 MG TAB NG SCH (09:00)
[2016-11-22] MEDS: DOCUSATE SODIUM 100 MG/10 ML UDC PO SCH ×2 (09:00→20:56)
[2016-11-22] MEDS: POLYETHYLENE GLYCOL 17 GM PKG OG-TUBE SCH ×2 (09:00→21:00)
[2016-11-22] MEDS: METOPROLOL TARTRATE 25 MG TAB PO SCH ×2 (09:00→20:56)
[2016-11-22] MEDS: SENNOSIDES SYRUP 8.8 MG/5 ML CUP NG SCH ×2 (09:00→21:00)
[2016-11-22 09:02] LABS: BASOPHILS 1 % (0-2); CORRECTED NUCLEATED RBC 1 /100 WBC (0-0); EOSINOPHILS 2 % (0-4); NEUTROPHIL # MANUAL DIFF 4.8 TH/MM3 (1.8-7.7); POLYS (SEG NEUTROPHILS) 44 % (16-70); TOXIC GRANULATION 1+ (NORMAL); WBC DIFF SAMPLE 100
[2016-11-22 09:03] LABS: KERATOCYTES OCC (NORMAL); OVALOCYTES 1+ (NORMAL)
[2016-11-22 09:04] LABS: SCAN/DIFF FINAL DIFF MANUAL
[2016-11-22] MEDS: SODIUM CHLORIDE 0.9% FLUSH 10 ML FLUSH IV FLUSH SCH ×2 (09:26→20:55)
[2016-11-22] MEDS: SODIUM CHLORIDE 0.9% FLUSH 10 ML FLUSH IVF SCH (09:26)
[2016-11-22] MEDS: CHLORHEXIDINE 0.12% (ORAL KIT) 15 ML CUP MT SCH ×2 (09:59→20:00)
--- NOTE | 2016-11-22 10:00 | HHI.NSPN ---
(Chay Alvarez) History Chief Complaint: Unable to obtain due to patient's mental condition. (Chay Alvarez) Interval History 11/09: 80-year-old male who according to his family was going up a step into the house with his cane when he fell backwards, striking the back of his head. He was reportedly unconscious for 10-15 minutes. He then had some shaking in the extremities as he was waking up. He has been somewhat sleepy and a little confused since he woke up at the patient's family states that he is conversing reasonably well with them. He normally is fairly independent, ambulating with a cane and is usually mentally alert with only mild memory loss. Positive emesis reported. Patient has no complaint of headache or neck pain. No complaint of low back or joint pain. 11/10: nursing reports agitated overnight, currently sleeping. f/u CT Head completed, moves all four extremities. son translated - oriented to name and place only. 11/11: Notified by PARVIN Stoner, that Nursing had notified her that the patient's mental status was worse this morning and that she had ordered a stat CT brain. When seen this morning the patient is obtunded and not answering to verbal stimuli. Nursing reports that CT had called and was sending someone up to transport the patient to the scanner. She stated that the patient did receive morphine and hydrocodone during the night for pain because he was agitated. 11/12: The patient has been intubated this morning due to persistent decreased mental status. Possibly a few more episodes of seizure activity reported last evening. He is continuing on Dilantin and Keppra for seizures. 11/13: The patient still is intubated, mechanically ventilated and sedated with midazolam. He does not respond to noxious stimulation. The EEG done yesterday morning did demonstrate seizure activity. Neurology evaluated the patient yesterday and adjusted his anti-epileptic medications. An EEG was done this morning prior to the patient being seen. 11/14: The patient remains intubated. A midazolam drip is still infusing as is a fentanyl drip. A repeat Ct brain this morning demonstrated evolving contusions and haemorrhages. 11/15: The patient is intubated without any sedation. The midazolam and fentanyl infusions were discontinued yesterday. A 3% saline drip continues to infuse. He did have a slight twitching of the eyelids when his name was called but no eye opening. 11/16: This morning the patient opened his eyes to verbal stimulation. He continues to be intubated without any sedation. 11/17/16: Patient remains intubated. He had a dose of intravenous sedation last night for agitation. Remains relatively alert. Positive fever last evening. Some difficulty with hemodynamic instability last evening. 11/18: The patient is on a cooling blanket with ice packs when seen this morning. He continues to be intubated. He does look to whomever is speaking and did follow commands. 11/19: The patient is asleep but awakens on his own. He was extubated this morning and is now on a nasal cannula. He follows commands and moves all his extremities to a degree. He does tell his daughter that he is tired. The family reports earlier that the patient did ask where his and son were by name. 11/20: When seen this afternoon the patient had just been transferred to a regular med/surg floor. He appears mildly distressed and is moaning. His daughter states that he has said he has pain all over. 11/21: Notified by [facility] physician (Dr Mejia, PGY1) that patient was having increased respiratory effort. He reported that the patient's oxygen saturation was satisfactory but the chest x-ray demonstrated fluid overload. Therefore 40 mg furosemide IV was ordered as was a nebuliser treatment. When seen the patient appeared moderately distress and had just received the furosemide with the nebuliser treatment ongoing. The Charge Nurse reported that the patient was lethargic and not responding to commands. He reported that the Central Office Installer is aware that the patient is being transferred to [facility] for further care and management. The Hospitalist was present and evaluating the patient. 11/22: Patient not opening eyes or following commands. Not verbalizing. (Chay Alvarez) System Review Comments Not able to obtain given clinical condition. (Chay Alvarez) Exam Results Vital Signs Date Time Temp Pulse Resp B/P (MAP) Pulse Ox O2 Delivery O2 Flow Rate FiO2 11/22/16 08:01 99 Nasal Cannula 5.00 11/22/16 06:00 107 11/22/16 04:00 98.9 30 125/58 (80) 11/20/16 16:16 21 Intake and Output 11/22/16 11/22/16 11/23/16 08:00 16:00 00:00 Output Total 700 ml Balance -700 ml (Chay Alvarez) Physical Examination Respiratory: Clear to auscultation bilaterally. Patient on 8 L of O2 Heart: Mild sinus tachycardia. Abdomen: Soft positive bowel sounds Skin: No cyanosis or erythema Muscle: Patient follow commands for muscle testing. Withdraws to painful stimuli in extremities. Neuro: Patient not opening eyes or following commands. Left pupil appears irregular surgical. Right pupil 3 mm slight reaction (Chay Alvarez) Lab, Micro, Other Results Laboratory Tests Test 11/21/16 14:30 11/22/16 06:11 11/22/16 08:44 D-Dimer Quantitative (PE/DVT) 24.65 MG/L FEU White Blood Count 11.0 TH/MM3 Red Blood Count 3.21 MIL/MM3 Hemoglobin 9.5 GM/DL Hematocrit 29.2 % Mean Corpuscular Volume 91.2 FL Mean Corpuscular Hemoglobin 29.6 PG Mean Corpuscular Hemoglobin Concent 32.4 % Red Cell Distribution Width 18.1 % Platelet Count 252 TH/MM3 Mean Platelet Volume 7.9 FL Neutrophils (%) (Auto) 32.1 % Lymphocytes (%) (Auto) 58.1 % Monocytes (%) (Auto) 7.0 % Eosinophils (%) (Auto) 2.3 % Basophils (%) (Auto) 0.5 % Neutrophils # (Auto) 3.5 TH/MM3 Lymphocytes # (Auto) 6.4 TH/MM3 Monocytes # (Auto) 0.8 TH/MM3 Eosinophils # (Auto) 0.3 TH/MM3 Basophils # (Auto) 0.0 TH/MM3 CBC Comment AUTO DIFF Differential Total Cells Counted 100 Neutrophils % (Manual) 44 % Lymphocytes % 47 % Monocytes % 6 % Eosinophils % 2 % Basophils % 1 % Neutrophils # (Manual) 4.8 TH/MM3 Nucleated Red Blood Cells 1 /100 WBC Differential Comment FINAL DIFF MANUAL Toxic Granulation 1+ Basophilic Stippling FAINT Ovalocytes 1+ Keratocytes OCC Hematology Comments Blood Urea Nitrogen 19 MG/DL Creatinine 0.52 MG/DL Random Glucose 96 MG/DL Calcium Level 7.7 MG/DL Sodium Level 152 MEQ/L Potassium Level 3.5 MEQ/L Chloride Level 116 MEQ/L Carbon Dioxide Level 26.8 MEQ/L Anion Gap 9 MEQ/L Estimat Glomerular Filtration Rate 152 ML/MIN B-Type Natriuretic Peptide 388 PG/ML Vancomycin Level Trough 25.3 MCG/ML Last Impressions Head CT 11/21/16 0000 Signed Impressions: Service Date/Time: Monday, November 21, 2016 10:22 - CONCLUSION: Grossly stable brain appearance Lonnie Blanchard MD Chest X-Ray 11/21/16 0000 Signed Impressions: Service Date/Time: Monday, November 21, 2016 09:25 - CONCLUSION: 1. Continued basilar effusions and diffuse interstitial prominence suggesting congestive failure. 2. Continued consolidation at the left lung base. Anthony Burns MD Transcranial Doppler Study Complete 11/17/16 0000 Signed Impressions: Service Date/Time: Thursday, November 17, 2016 10:03 - CONCLUSION: 1. Nondiagnostic examination due to poor transcranial windows. Konstantin Dash MD Abdomen X-Ray 11/12/16 0000 Signed Impressions: Service Date/Time: Saturday, November 12, 2016 08:23 - CONCLUSION: 1. Gastric tube in good position. 2. Probable right renal stones. Narayan Coulter MD Cervical Spine CT 11/09/161950 Signed Impressions: Service Date/Time: Wednesday, November 09, 2016 20:14 - CONCLUSION: Negative trauma CT. Cj Isidro MD (Chay Alvarez) Medical Decision Making Impression and Plan Impression: 1. Traumatic brain injury 2. Hypertension 3. Diabetes 4. Respiratory failure 5. Seizures Blood cultures x2 () positive for Staphylococcus aureus, Staphylococcus epidermidis & Streptococcus species, on vancomycin, sensitivities pending. Plan: Critical care management per Central Office Installer. Frequent neuro checks. Continue present diabetic medications with insulin sliding scale. Non-chemical DVT prophylaxis. Ulcer prophylaxis. Will follow blood culture sensitivities. Continue rehabilitation efforts (Chay Alvarez) Attending Statement The exam, history, and the medical decision-making described in the above note were completed with the assistance of the mid-level provider. I reviewed and agree with the findings presented. I attest that I had a [id number] encounter with the patient on the same day, and personally performed and documented my assessment and findings in the medical record. (Shakir Segovia MD) Chay Alvarez Nov 22, 2016 10:00 Shakir Segovia MD Nov 22, 2016 14:13
--- NOTE | 2016-11-22 10:51 | HHI.CCPN ---
Subjective Remarks/Hospital Course 80 y/o man fell backwards two days ago and hit the back of his head quite hard. LOC and vomiting followed by general lethargy, but conversant and responsive. I was asked to see him by nurse today for lack of responsiveness about 1100 hours. Unresponsive now and morning head CT demonstrates increased edema surrounding intraparenchymal hemorrhages, unchanged subdural collections. Stat EEG revealed generalized seizure activity. Discussed with Neurosurgery Service and AED started. Patient protects airway well, nonconvulsive. 11/12: Patient unresponsive and looking towards left. On fosphenytoin 100 mg IV every 8 hours and levetiracetam 1000 mg IV twice a day. Will need intubation along with central line placed for 3% hypertonic saline Subjective 11/13: Intubated yesterday severity ongoing seizure activity. EEG revealed cessation of seizure activity with lorazepam injection.. Tolerating tube feeding. No bowel movement. Afebrile. 11/14: Gas exchange acceptable. CT head worrisome. CXR with accumulating effusions. Daughter at bedside. 11/15: Severe neurological injury following backward fall. Medical therapy is maximized regarding prevention of cerebral edema and maintenance of cerebral perfusion. 11/16: Unresponsive. Serum well concentrated. 11/17: He became hemodynamically unstable last night, associated with temp 103. Cultures obtained, abx started. Will remove central line. No neuro improvement. 11/18: Increased activity but not following commands. Remains edematous. Afebrile today. Temp 102.2, await sputum C&S. 11/19: Breathing with more comfort but tachypneic. Gas exchange good. Will try to extubate - 50/50 chance of success. Blood with 2/4 GPC, on vancomycin. 11/20: 80 y/o man fell backwards hitting his head about 11 days ago. Received SDHs and alejandro contusions with hemorrhage. Required intubation 7 days ago for obtundation. Now extubated 11/19 and breathing comfortably. Passed swallow evaluation for thickened liquids. Will need rehab for speech, swallowing. Generally weak. Fever to 103 3 nights ago, blood grew Staph 2/4 bottles. On vancomycin. No source identified. No central lines at the time. 11/21: More SOB today, less alert. Moves 4 limbs with strength. 11/22: Breathing comfortably. Fussy but eating meals. Transfer to floor. He tends to retain fluid, continue iv lasix for now, other meds PO. Objective Vital Signs Date Time Temp Pulse Resp B/P (MAP) Pulse Ox O2 Delivery O2 Flow Rate FiO2 11/22/16 08:01 99 Nasal Cannula 5.00 11/22/16 06:00 107 11/22/16 04:00 98.9 30 125/58 (80) 11/20/16 16:16 21 Intake and Output 11/22/16 11/22/16 11/23/16 08:00 16:00 00:00 Output Total 700 ml Balance -700 ml Result Diagram: 11/22/16 0611 11/22/16 0611 Imaging Last Impressions Chest X-Ray 11/12/16 0813 Signed Impressions: Service Date/Time: Saturday, November 12, 2016 08:15 - CONCLUSION: Right IJ catheter tip at the origin the superior vena cava. No evidence of pneumothorax. Narayan Coulter MD Abdomen X-Ray 11/12/16 0000 Signed Impressions: Service Date/Time: Saturday, November 12, 2016 08:23 - CONCLUSION: 1. Gastric tube in good position. 2. Probable right renal stones. Narayan Coulter MD Head CT 11/11/16 0000 Signed Impressions: Service Date/Time: Friday, November 11, 2016 09:44 - CONCLUSION: 1. Stable multiple intercranial contusions Blaine Shore MD Cervical Spine CT 11/09/161950 Signed Impressions: Service Date/Time: Wednesday, November 09, 2016 20:14 - CONCLUSION: Negative trauma CT. Cj Isidro MD Objective Remarks Gen: 80-year-old male, intubated Neck: Supple. Lungs: No wheezes, clear. Good air movement. Heart: RRR. S1S2. Without murmur, rubs. No JVD. Abdomen: Soft, nondistended, active bowel sounds. No guarding, no distention Extremities: Warm, well perfused. Edema feet and ankles. Neuro: Opens eyes, tracks, much more alert, conversant. Date of Insertion: Nov 12, 2016 Line: Central Venous Catheter Side: Right Location: Internal, Jugular A/P Assessment and Plan Neuro/Psych: Closed head injury - Traumatic Bilateral large intra-parenchymal hemorrhages/right temporal/parietal subdural hematoma and bifrontal contusions Nonconvulsive seizures CT brain 11/11 revealed bi frontal contusions, right temporal/parietal subdural hematoma around 8 mm in subarachnoid hemorrhage EEG 11/11 revealed mild to moderate encephalopathy. Right frontal/central generalized slowing with intermittent sharps waves Repeat EEG 11/12 revealed 2 clinical seizure activities that cessation with 2 mg Ativan IV 1. Repeat EEG today pending Currently on fosphenytoin 100 mg IV every 6 hours. A.m. level pending. Along with levetiracetam 1000 mg IV twice a day. Neurosurgery/Dr. Godfrey follows CV: Atrial fibrillation Hypertension Currently on lopressor with parameters for heart rate and blood pressure Not requiring vasopressors and/or antihypertensives. Goal keep systolic blood pressure less than 150 Resp: Acute respiratory insufficiency secondary to altered mental status Extubated 11/19 GI: Docusate sodium 100 mg twice a day/senna 8.6 mg twice a day for bowel regimen : BPH Maintain Noriega Currently on tamsulosin 0.4 mg by mouth daily and tolterodine 2 mg by mouth daily - hospital substitution for finasteride 5 mg by mouth daily Endo: Diabetes mellitus - hemoglobin A1c 6.0 Currently on Novulin R sliding scale insulin every 6 hours to maintain euglycemia Add levemir bid. Renal: Creatinine currently within normal limits Monitor urine output Accurate I's and O's Heme: Leukocytosis Normocytic anemia Coags within normal limit ID: Cultures 11/17 Vanc, Cefepime started 11/17 Pertinent cultures 11/11 - blood cultures 2 - no growth 11/18: blood cults Contaminants FEN: Hypophosphatemia MSK: Physical therapy evaluate and treat Access PIV Prophylaxis - GI - lanosprazole DVT - SCD/pharmacological prophylaxis when okay with neurosurgery Overall impression: Improved breathing. Comfortable now. 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 Dev Loaiza MD Nov 22, 2016 10:50
[2016-11-22] MEDS: FUROSEMIDE 40 MG/4 ML VIAL IV PUSH SCH (11:29)
[2016-11-22] MEDS: TAMSULOSIN HCL 0.4 MG CAP PO SCH (21:20)
[2016-11-23] VITALS (12 sets, daily range): BP systolic 110–123; BP diastolic 57–65; PULSE 83–96; RESP 22–29; TEMP 97.6–98.9; O2SAT 96–100
[2016-11-23] MEDS: FOSPHENYTOIN INJ 100 MGPE in SODIUM CHLORIDE 0.9% INJ 50 ML IV SCH ×4 (00:14→17:50)
[2016-11-23] MEDS: INSULIN ASPART SUPPLEMENTAL SCALE SQ SCH ×4 (03:00→22:13)
[2016-11-23] MEDS: levETIRAcetam 1000 MG INJ 100 ML IV SCH ×3 (05:36→22:11)
[2016-11-23 05:38] LABS: BICARBONATE 30.9 MEQ/L (21.0-32.0); POTASSIUM 3.1 MEQ/L (3.5-5.1)
[2016-11-23] MEDS: POTASSIUM CHLOR 20 MEQ PREMIX 100 ML IV PRN ×4 (06:24→13:09)
--- NOTE | 2016-11-23 06:56 | HHI.NSPN ---
(Chay Alvarez) History Chief Complaint: Unable to obtain due to patient's mental condition. (Chay Alvarez) Interval History 11/09: 80-year-old male who according to his family was going up a step into the house with his cane when he fell backwards, striking the back of his head. He was reportedly unconscious for 10-15 minutes. He then had some shaking in the extremities as he was waking up. He has been somewhat sleepy and a little confused since he woke up at the patient's family states that he is conversing reasonably well with them. He normally is fairly independent, ambulating with a cane and is usually mentally alert with only mild memory loss. Positive emesis reported. Patient has no complaint of headache or neck pain. No complaint of low back or joint pain. 11/10: nursing reports agitated overnight, currently sleeping. f/u CT Head completed, moves all four extremities. son translated - oriented to name and place only. 11/11: Notified by PARVIN Stoner, that Nursing had notified her that the patient's mental status was worse this morning and that she had ordered a stat CT brain. When seen this morning the patient is obtunded and not answering to verbal stimuli. Nursing reports that CT had called and was sending someone up to transport the patient to the scanner. She stated that the patient did receive morphine and hydrocodone during the night for pain because he was agitated. 11/12: The patient has been intubated this morning due to persistent decreased mental status. Possibly a few more episodes of seizure activity reported last evening. He is continuing on Dilantin and Keppra for seizures. 11/13: The patient still is intubated, mechanically ventilated and sedated with midazolam. He does not respond to noxious stimulation. The EEG done yesterday morning did demonstrate seizure activity. Neurology evaluated the patient yesterday and adjusted his anti-epileptic medications. An EEG was done this morning prior to the patient being seen. 11/14: The patient remains intubated. A midazolam drip is still infusing as is a fentanyl drip. A repeat Ct brain this morning demonstrated evolving contusions and haemorrhages. 11/15: The patient is intubated without any sedation. The midazolam and fentanyl infusions were discontinued yesterday. A 3% saline drip continues to infuse. He did have a slight twitching of the eyelids when his name was called but no eye opening. 11/16: This morning the patient opened his eyes to verbal stimulation. He continues to be intubated without any sedation. 11/17/16: Patient remains intubated. He had a dose of intravenous sedation last night for agitation. Remains relatively alert. Positive fever last evening. Some difficulty with hemodynamic instability last evening. 11/18: The patient is on a cooling blanket with ice packs when seen this morning. He continues to be intubated. He does look to whomever is speaking and did follow commands. 11/19: The patient is asleep but awakens on his own. He was extubated this morning and is now on a nasal cannula. He follows commands and moves all his extremities to a degree. He does tell his daughter that he is tired. The family reports earlier that the patient did ask where his and son were by name. 11/20: When seen this afternoon the patient had just been transferred to a regular med/surg floor. He appears mildly distressed and is moaning. His daughter states that he has said he has pain all over. 11/21: Notified by [facility] physician (Dr Mejia, PGY1) that patient was having increased respiratory effort. He reported that the patient's oxygen saturation was satisfactory but the chest x-ray demonstrated fluid overload. Therefore 40 mg furosemide IV was ordered as was a nebuliser treatment. When seen the patient appeared moderately distress and had just received the furosemide with the nebuliser treatment ongoing. The Charge Nurse reported that the patient was lethargic and not responding to commands. He reported that the Artificial Glass Eye Maker is aware that the patient is being transferred to [facility] for further care and management. The Hospitalist was present and evaluating the patient. 11/22: Patient not opening eyes or following commands. Not verbalizing. 11/23: Pt opens eyes and tracks around room. He is restless. Not following commands for staff or reportedly family. Pt not verbalizing. (Chay Alvarez) System Review Comments Not able to obtain given clinical condition. (Chay Alvarez) Exam Results Vital Signs Date Time Temp Pulse Resp B/P (MAP) Pulse Ox O2 Delivery O2 Flow Rate FiO2 11/23/16 06:00 95 11/23/16 04:00 98.3 26 118/58 (78) 96 11/22/16 21:30 Nasal Cannula 2.00 11/20/16 16:16 21 Intake and Output 11/23/16 11/23/16 11/24/16 08:00 16:00 00:00 Intake Total 204 ml Output Total 400 ml Balance -196 ml (Chay Alvarez) Physical Examination Respiratory: Clear to auscultation bilaterally. Patient on 6 L of O2 Heart: NSR. No murmurs Abdomen: Soft positive bowel sounds Skin: No cyanosis or erythema Muscle: Patient not following commands for muscle testing. Restless when he awakens. Moves right upper extremity more spontaneously than LUE although RN states he has brought both above his head. Neuro: Patient opening eyes to voice. Restless when awoken. Not following commands. Left pupil appears irregular surgical. Right pupil 3 mm slight reaction. Not verbalizing. (Chay Alvarez) Lab, Micro, Other Results Last Impressions Head CT 11/21/16 0000 Signed Impressions: Service Date/Time: Monday, November 21, 2016 10:22 - CONCLUSION: Grossly stable brain appearance Lonnie Blanchard MD Chest X-Ray 11/21/16 0000 Signed Impressions: Service Date/Time: Monday, November 21, 2016 09:25 - CONCLUSION: 1. Continued basilar effusions and diffuse interstitial prominence suggesting congestive failure. 2. Continued consolidation at the left lung base. Anthony Burns MD Transcranial Doppler Study Complete 11/17/16 0000 Signed Impressions: Service Date/Time: Thursday, November 17, 2016 10:03 - CONCLUSION: 1. Nondiagnostic examination due to poor transcranial windows. Konstantin Dash MD Abdomen X-Ray 11/12/16 0000 Signed Impressions: Service Date/Time: Saturday, November 12, 2016 08:23 - CONCLUSION: 1. Gastric tube in good position. 2. Probable right renal stones. Narayan Coulter MD Cervical Spine CT 11/09/161950 Signed Impressions: Service Date/Time: Wednesday, November 09, 2016 20:14 - CONCLUSION: Negative trauma CT. Cj Isidro MD Laboratory Tests Test 11/22/16 08:44 11/23/16 04:55 Vancomycin Level Trough 25.3 MCG/ML Blood Urea Nitrogen 17 MG/DL Creatinine 0.60 MG/DL Random Glucose 122 MG/DL Calcium Level 8.4 MG/DL Sodium Level 150 MEQ/L Potassium Level 3.1 MEQ/L Chloride Level 113 MEQ/L Carbon Dioxide Level 30.9 MEQ/L Anion Gap 6 MEQ/L Estimat Glomerular Filtration Rate 129 ML/MIN Random Vancomycin Level 15.0 COMMENT (Chay Alvarez) Medical Decision Making Impression and Plan Impression: 1. Traumatic brain injury 2. Hypertension 3. Diabetes 4. Respiratory failure 5. Seizures Blood cultures x2 () positive for Staphylococcus aureus, Staphylococcus epidermidis & Streptococcus species, on vancomycin, sensitivities pending. Plan: Critical care management per Artificial Glass Eye Maker. Frequent neuro checks. Continue present diabetic medications with insulin sliding scale. Non-chemical DVT prophylaxis. Ulcer prophylaxis. Continue rehabilitation efforts (Chay Alvarez) Attending Statement The exam, history, and the medical decision-making described in the above note were completed with the assistance of the mid-level provider. I reviewed and agree with the findings presented. I attest that I had a [id number] encounter with the patient on the same day, and personally performed and documented my assessment and findings in the medical record. (Shakir Segovia MD) Chay Alvarez Nov 23, 2016 06:56 Shakir Segovia MD Nov 23, 2016 10:21
[2016-11-23] MEDS: ARTIFICIAL TEARS OPTH SOLN 15 ML BTL EACH EYE SCH ×3 (08:01→17:37)
[2016-11-23] MEDS: SODIUM CHLORIDE 0.9% FLUSH 10 ML FLUSH IV FLUSH SCH ×2 (08:01→22:15)
[2016-11-23] MEDS: CHLORHEXIDINE 0.12% (ORAL KIT) 15 ML CUP MT SCH ×2 (08:01→22:15)
[2016-11-23] MEDS: POLYETHYLENE GLYCOL 17 GM PKG OG-TUBE SCH ×2 (08:02→22:17)
[2016-11-23] MEDS: SODIUM CHLORIDE 0.9% FLUSH 10 ML FLUSH IVF SCH (08:02)
[2016-11-23] MEDS: SENNOSIDES SYRUP 8.8 MG/5 ML CUP NG SCH ×2 (08:02→22:17)
[2016-11-23] MEDS: TOLTERODINE TARTRATE 2 MG CAP LA PO SCH (08:03)
[2016-11-23] MEDS: FINASTERIDE 5 MG TAB PO SCH (08:03)
[2016-11-23] MEDS: LACTULOSE SYRUP 20 GM/30 ML CUP PO SCH (08:03)
[2016-11-23] MEDS: DOCUSATE SODIUM 100 MG/10 ML UDC PO SCH ×2 (08:04→22:17)
--- NOTE | 2016-11-23 08:37 | HHI.CCPN ---
Subjective Remarks/Hospital Course 80 y/o man fell backwards two days ago and hit the back of his head quite hard. LOC and vomiting followed by general lethargy, but conversant and responsive. I was asked to see him by nurse today for lack of responsiveness about 1100 hours. Unresponsive now and morning head CT demonstrates increased edema surrounding intraparenchymal hemorrhages, unchanged subdural collections. Stat EEG revealed generalized seizure activity. Discussed with Neurosurgery Service and AED started. Patient protects airway well, nonconvulsive. 11/12: Patient unresponsive and looking towards left. On fosphenytoin 100 mg IV every 8 hours and levetiracetam 1000 mg IV twice a day. Will need intubation along with central line placed for 3% hypertonic saline Subjective 11/13: Intubated yesterday severity ongoing seizure activity. EEG revealed cessation of seizure activity with lorazepam injection.. Tolerating tube feeding. No bowel movement. Afebrile. 11/14: Gas exchange acceptable. CT head worrisome. CXR with accumulating effusions. Daughter at bedside. 11/15: Severe neurological injury following backward fall. Medical therapy is maximized regarding prevention of cerebral edema and maintenance of cerebral perfusion. 11/16: Unresponsive. Serum well concentrated. 11/17: He became hemodynamically unstable last night, associated with temp 103. Cultures obtained, abx started. Will remove central line. No neuro improvement. 11/18: Increased activity but not following commands. Remains edematous. Afebrile today. Temp 102.2, await sputum C&S. 11/19: Breathing with more comfort but tachypneic. Gas exchange good. Will try to extubate - 50/50 chance of success. Blood with 2/4 GPC, on vancomycin. 11/20: 80 y/o man fell backwards hitting his head about 11 days ago. Received SDHs and alejandro contusions with hemorrhage. Required intubation 7 days ago for obtundation. Now extubated 11/19 and breathing comfortably. Passed swallow evaluation for thickened liquids. Will need rehab for speech, swallowing. Generally weak. Fever to 103 3 nights ago, blood grew Staph 2/4 bottles. On vancomycin. No source identified. No central lines at the time. 11/21: More SOB today, less alert. Moves 4 limbs with strength. 11/22: Breathing comfortably. Fussy but eating meals. Transfer to floor. He tends to retain fluid, continue iv lasix for now, other meds PO. 11/23: Elderly man fell backward and hit his head 2 weeks ago. Developed SDH and two intraparenchymal hemorrhages. Required mechanical ventilation when he became obtunded on 3rd day. Extubated a week ago. Very weak, but cooperative. Eating now. Objective Vital Signs Date Time Temp Pulse Resp B/P (MAP) Pulse Ox O2 Delivery O2 Flow Rate FiO2 11/23/16 07:00 Nasal Cannula 2.00 11/23/16 06:00 95 11/23/16 04:00 98.3 26 118/58 (78) 96 11/20/16 16:16 21 Intake and Output 11/23/16 11/23/16 11/24/16 08:00 16:00 00:00 Intake Total 204 ml Output Total 400 ml Balance -196 ml Result Diagram: 11/22/16 0611 11/23/16 0455 Imaging Last Impressions Chest X-Ray 11/12/16 0813 Signed Impressions: Service Date/Time: Saturday, November 12, 2016 08:15 - CONCLUSION: Right IJ catheter tip at the origin the superior vena cava. No evidence of pneumothorax. Narayan Coulter MD Abdomen X-Ray 11/12/16 0000 Signed Impressions: Service Date/Time: Saturday, November 12, 2016 08:23 - CONCLUSION: 1. Gastric tube in good position. 2. Probable right renal stones. Narayan Coulter MD Head CT 11/11/16 0000 Signed Impressions: Service Date/Time: Friday, November 11, 2016 09:44 - CONCLUSION: 1. Stable multiple intercranial contusions Blaine Shore MD Cervical Spine CT 11/09/161950 Signed Impressions: Service Date/Time: Wednesday, November 09, 2016 20:14 - CONCLUSION: Negative trauma CT. Cj Isidro MD Objective Remarks Gen: 80-year-old male, conversant. Neck: Supple. Lungs: No wheezes, clear. Good air movement. Heart: RRR. S1S2. Without murmur, rubs. No JVD. Abdomen: Soft, nondistended, active bowel sounds. No guarding, no distention. Extremities: Warm, well perfused. Chronic edema feet and ankles. Neuro: Opens eyes, tracks, much more alert, conversant. Swallows well, eating. Date of Insertion: Nov 12, 2016 Line: Central Venous Catheter Side: Right Location: Internal, Jugular A/P Assessment and Plan Neuro/Psych: Closed head injury - Traumatic Bilateral large intra-parenchymal hemorrhages/right temporal/parietal subdural hematoma and bifrontal contusions Nonconvulsive seizures CT brain 11/11 revealed bi frontal contusions, right temporal/parietal subdural hematoma around 8 mm in subarachnoid hemorrhage EEG 11/11 revealed mild to moderate encephalopathy. Right frontal/central generalized slowing with intermittent sharps waves Repeat EEG 11/12 revealed 2 clinical seizure activities that cessation with 2 mg Ativan IV 1. Repeat EEG today pending Currently on fosphenytoin 100 mg IV every 6 hours. A.m. level pending. Along with levetiracetam 1000 mg IV twice a day. Neurosurgery/Dr. Godfrey follows CV: Atrial fibrillation Hypertension Currently on lopressor with parameters for heart rate and blood pressure Not requiring vasopressors and/or antihypertensives. Goal keep systolic blood pressure less than 150 Resp: Acute respiratory insufficiency secondary to altered mental status Extubated 11/19 GI: Docusate sodium 100 mg twice a day/senna 8.6 mg twice a day for bowel regimen : BPH Maintain Noriega Currently on tamsulosin 0.4 mg by mouth daily and tolterodine 2 mg by mouth daily - hospital substitution for finasteride 5 mg by mouth daily Endo: Diabetes mellitus - hemoglobin A1c 6.0 Currently on Novulin R sliding scale insulin every 6 hours to maintain euglycemia Levemir bid. Renal: Creatinine currently within normal limits Monitor urine output Accurate I's and O's Heme: Leukocytosis Normocytic anemia Coags within normal limit ID: Cultures 11/17 Vanc, Cefepime started 11/17 for a possible sepsis episode. Cefepime stopped . Vanc until 11/25. Staph in blood but no central lines at the time. Pertinent cultures 11/11 - blood cultures 2 - no growth 11/18: blood cults: Contaminants FEN: Hypophosphatemia MSK: Physical therapy evaluate and treat Access PIV Prophylaxis - GI - lanosprazole DVT - SCD/pharmacological prophylaxis when okay with neurosurgery Overall impression: Improved breathing. Comfortable now. 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 Dev Loaiza MD Nov 23, 2016 08:37
[2016-11-23] MEDS: METOPROLOL TARTRATE 25 MG TAB PO SCH ×2 (08:39→22:12)
[2016-11-23] MEDS: FUROSEMIDE 40 MG/4 ML VIAL IV PUSH SCH (08:39)
[2016-11-23] MEDS: LANSOPRAZOLE SOLUTAB 30 MG TAB NG SCH (08:39)
[2016-11-23] MEDS: INSULIN DETEMIR 100 UNITS/ML VIAL SQ SCH ×2 (08:40→22:14)
[2016-11-23] MEDS ORDERED: VANCOMYCIN INJ 1,600 MG in SODIUM CHLORID 0.9% 500 ML INJ 500 ML IV ONE (11:00)
--- NOTE | 2016-11-23 15:27 | ECHRPT ---
Indication: HEART FAILURE CONCLUSIONS The left ventricular systolic function is mildly reduced with an estimated ejection fraction in the range of 45- 50%. Hypokinetic apical cap wall motion. Hypokinetic apical anterior wall. Hypokinetic mid-anterior septal wall motion. Doppler parameters are consistent with impaired left ventricular relaxtion (grade 1 diastolic dysfun ction). Moderate mitral annular calcification. Mild thickening of the mitral valve leaflets. Trace mitral valve regurgitation. The aortic valve is not well visualized. Aortic valve sclerosis is present. No aortic valve stenosis. No aortic valve regurgitation. There is mild tricuspid valve regurgitation. There is estimated mild pulmonary hypertension present (range 40-50 mmHg). The inferior vena cava (IVC) is normal in size. BP: 127 / 59 HR: 107 Rhythm: Sinus MEASUREMENTS (Male / Female) Normal Values Technical Quality:Fair 2D ECHO LV Diastolic Diameter PLAX 4.9 cm 4.2 - 5.9 / 3.9 - 5.3 cm LV Systolic Diameter PLAX 3.0 cm IVS Diastolic Thickness 1.0 cm 0.6 - 1.0 / 0.6 - 0.9 cm LVPW Diastolic Thickness 1.0 cm 0.6 - 1.0 / 0.6 - 0.9 cm LV Relative Wall Thickness 0.4 LVOT Diameter 2.0 cm Aortic Root Diameter 2.6 cm LA Systolic Diameter LX 2.1 cm 3.0 - 4.0 / 2.7 - 3.8 cm M-MODE AV Cusp Separation MM 1.8 cm DOPPLER AV Peak Velocity 157.0 cm/s AV Peak Gradient 9.9 mmHg AV Mean Gradient 4.0 mmHg AV Velocity Time Integral 22.8 cm LVOT Peak Velocity 86.5 cm/s LVOT Peak Gradient 3.0 mmHg LVOT Velocity Time Integral 16.5 cm LVOT Cardiac Index 2774.7 cm/minm AV Area Cont Eq vti 2.3 cm AV Area Cont Eq pk 1.7 cm Mitral E Point Velocity 87.9 cm/s Mitral A Point Velocity 114.0 cm/s Mitral E to A Ratio 0.8 LV E' Lateral Velocity 5.9 cm/s Mitral E to LV E' Lateral Ratio 14.8 LV E' Septal Velocity 6.8 cm/s Mitral E to LV E' Septal Ratio 12.9 TR Peak Velocity 273.0 cm/s TR Peak Gradient 29.8 mmHg PV Peak Velocity 70.7 cm/s PV Peak Gradient 2.0 mmHg FINDINGS LEFT VENTRICLE The left ventricular systolic function is mildly reduced with an estimated ejection fraction in the range of 45- 50%. Hypokinetic apical cap wall motion. Hypokinetic apical anterior wall. Hypokinetic mid-anterior septal wall motion. Doppler parameters are consistent with impaired left ventricular relaxtion (grade 1 diastolic dysfun ction). RIGHT VENTRICLE Normal right ventricular size and systolic function. LEFT ATRIUM The left atrial size is normal. RIGHT ATRIUM The right atrial size is normal. ATRIAL SEPTUM Normal atrial septal thickness without atrial level shunting by limited color doppler interrogation. AORTA The aortic root and proximal ascending aorta are normal in size on limited imaging. MITRAL VALVE Moderate mitral annular calcification. Mild thickening of the mitral valve leaflets. Trace mitral valve regurgitation. AORTIC VALVE The aortic valve is not well visualized. Aortic valve sclerosis is present. No aortic valve stenosis. No aortic valve regurgitation. TRICUSPID VALVE Structurally normal tricuspid valve. There is mild tricuspid valve regurgitation. There is estimated mild pulmonary hypertension present (range 40-50 mmHg). VESSELS The inferior vena cava (IVC) is normal in size. PERICARDIUM No pericardial effusion. Roderick Bryson MD (Electronically Signed) Final Date:23 November 2016 15:26
[2016-11-23] MEDS: TAMSULOSIN HCL 0.4 MG CAP PO SCH (22:12)
[2016-11-24] MEDS: FOSPHENYTOIN INJ 100 MGPE in SODIUM CHLORIDE 0.9% INJ 50 ML IV SCH ×5 (00:03→22:14)
[2016-11-24 00:04] VITALS: BP 113/58; PULSE 88; RESP 24; TEMP 97.7; O2SAT 94
[2016-11-24] MEDS: INSULIN ASPART SUPPLEMENTAL SCALE SQ SCH ×5 (03:51→21:00)
[2016-11-24 04:10] VITALS: BP 127/65; PULSE 85; RESP 24; TEMP 97.8; O2SAT 91
[2016-11-24] MEDS: DEXTROSE 50% IN WATER 50 ML VIAL(D50) IV PRN (04:19)
[2016-11-24] MEDS: levETIRAcetam 1000 MG INJ 100 ML IV SCH ×3 (05:30→22:17)
[2016-11-24] MEDS: CHLORHEXIDINE 0.12% (ORAL KIT) 15 ML CUP MT SCH ×2 (07:37→20:00)
[2016-11-24 08:00] VITALS: BP 133/63; PULSE 85; RESP 18; TEMP 97.7; O2SAT 94
[2016-11-24 08:17] LABS: AUTOMATED NEUTROPHIL # 2.9 TH/MM3 (1.8-7.7); BASOPHIL % 0.4 % (0.0-2.0); EOSINOPHIL # 0.2 TH/MM3 (0-0.4); EOSINOPHIL % 2.3 % (0.0-4.0); HEMATOCRIT 27.9 % (39.0-51.0); LYMPHOCYTE # 6.5 TH/MM3 (1.0-4.8); MEAN CELL VOLUME 91.2 FL (80.0-100.0); MEAN CORPUSCULAR HEMOGLOBIN 29.5 PG (27.0-34.0); MEAN CORPUSCULAR HGB CONC 32.4 % (32.0-36.0); MONO % 7.3 % (0.0-8.0); PLATELET COUNT 299 TH/MM3 (150-450); RED BLOOD COUNT 3.06 MIL/MM3 (4.50-5.90); WHITE BLOOD COUNT 10.5 TH/MM3 (4.0-11.0)
[2016-11-24 08:19] LABS: HEMO FLAGS AUTO DIFF
[2016-11-24 08:38] LABS: BICARBONATE 29.5 MEQ/L (21.0-32.0); POTASSIUM 3.3 MEQ/L (3.5-5.1)
[2016-11-24] MEDS: POLYETHYLENE GLYCOL 17 GM PKG OG-TUBE SCH ×2 (09:00→22:15)
[2016-11-24] MEDS: INSULIN DETEMIR 100 UNITS/ML VIAL SQ SCH ×2 (09:00→15:29)
[2016-11-24] MEDS: SENNOSIDES SYRUP 8.8 MG/5 ML CUP NG SCH ×2 (09:00→22:16)
[2016-11-24] MEDS: LACTULOSE SYRUP 20 GM/30 ML CUP PO SCH (09:00)
[2016-11-24] MEDS: DOCUSATE SODIUM 100 MG/10 ML UDC PO SCH ×2 (09:00→22:15)
--- NOTE | 2016-11-24 09:04 | HHI.PR ---
Subjective Remarks In bed, with some sob, appears with congestion. Answers to some questions,. he is very weak and feels very tired. Cough , nonproductive. No fever or chills. No abdominal pain . No n/v/d/c. decreased appetite. Objective Vitals Vital Signs Date Time Temp Pulse Resp B/P (MAP) Pulse Ox O2 Delivery O2 Flow Rate FiO2 11/24/16 04:10 97.8 85 24 127/65 (85) 91 11/24/16 01:43 95 Nasal Cannula 1.00 11/24/16 00:04 97.7 88 24 113/58 (76) 94 11/23/16 21:40 97.7 91 22 111/62 (78) 96 11/23/16 18:00 89 11/23/16 16:00 97.6 83 26 123/58 (79) 98 11/23/16 16:00 83 11/23/16 14:00 87 11/23/16 12:00 97.7 84 26 116/65 (82) 97 11/23/16 12:00 84 11/23/16 10:00 85 I/O 11/23/16 11/23/16 11/23/16 11/24/16 11/24/16 11/24/16 07:00 15:00 23:00 07:00 15:00 23:00 Intake Total 204 ml 750 ml 768 ml 50 ml Output Total 400 ml 1850 ml 200 ml Balance -196 ml 750 ml -1082 ml -150 ml IV Total 204 ml 750 ml 768 ml 50 ml Output Urine Total 400 ml 1850 ml 200 ml # Bowel Movements 1 2 Result Diagram: 11/24/16 0739 11/24/16 0739 Imaging Last Impressions Head CT 11/21/16 0000 Signed Impressions: Service Date/Time: Monday, November 21, 2016 10:22 - CONCLUSION: Grossly stable brain appearance Lonnie Blanchard MD Chest X-Ray 11/21/16 0000 Signed Impressions: Service Date/Time: Monday, November 21, 2016 09:25 - CONCLUSION: 1. Continued basilar effusions and diffuse interstitial prominence suggesting congestive failure. 2. Continued consolidation at the left lung base. Anthony Burns MD Transcranial Doppler Study Complete 11/17/16 0000 Signed Impressions: Service Date/Time: Thursday, November 17, 2016 10:03 - CONCLUSION: 1. Nondiagnostic examination due to poor transcranial windows. Konstantin Dash MD Abdomen X-Ray 11/12/16 0000 Signed Impressions: Service Date/Time: Saturday, November 12, 2016 08:23 - CONCLUSION: 1. Gastric tube in good position. 2. Probable right renal stones. Narayan Coulter MD Cervical Spine CT 11/09/16 195 Signed Impressions: Service Date/Time: Wednesday, November 09, 2016 20:14 - CONCLUSION: Negative trauma CT. Cj Isidro MD Objective Remarks GENERAL: 80 yo male, in bed, appears chronically ill, sick. EYES: No scleral icterus. No injection or drainage. NECK: Supple, trachea midline. No JVD or lymphadenopathy. CARDIOVASCULAR: Regular rate and rhythm without murmurs, gallops, or rubs. RESPIRATORY: Breath sounds decreased, bibasilar crackles. No accessory muscle use. GASTROINTESTINAL: Abdomen soft, non-tender, nondistended. MUSCULOSKELETAL: No cyanosis, or edema. BACK: Nontender without obvious deformity. No CVA tenderness. NEURO: Patient is more awake, Moves arms in legs. Date of Insertion: Nov 12, 2016 Line: Central Venous Catheter Side: Right Location: Internal, Jugular A/P Problem List: (1) Subdural hematoma ICD Code: I62.00 - Nontraumatic subdural hemorrhage, unspecified Status: Acute (2) Diabetes ICD Code: E11.9 - Type 2 diabetes mellitus without complications (3) Leukocytosis ICD Code: D72.829 - Elevated white blood cell count, unspecified Status: Acute (4) HTN (hypertension) ICD Code: I10 - Essential (primary) hypertension Status: Chronic Assessment and Plan Acute respiratory insufficiency secondary to altered mental status Extubated 11/19 Patient was transferred to med/surg floor and on 11/21 noted more lethargic and with sob, patiemt with acute repiratory failure 2/2 fluid overload. CXR with congestion. Receive lasix 40 IV x 1 time, prabhakar placed for accurate OP , had 1800 UOP after lasix. Respiratory status improving. ABG, cbc, bmp, LA stat. Patient was transferred back to ICU for further care, In Process Inspector consulted. Patient is also noted more letahrgic will repeat CT head, discussed with Villa MELENDREZ from neurosurgical team 11/24/16 patient still with sob , congested, continue lasix. monitor UOP and kidney function closely. O2 support as Neuro/Psych: Closed head injury - Traumatic Bilateral large intra-parenchymal hemorrhages/right temporal/parietal subdural hematoma and bifrontal contusions Nonconvulsive seizures CT brain 11/11 revealed bi frontal contusions, right temporal/parietal subdural hematoma around 8 mm in subarachnoid hemorrhage EEG 11/11 revealed mild to moderate encephalopathy. Right frontal/central generalized slowing with intermittent sharps waves Repeat EEG 11/12 revealed 2 clinical seizure activities that cessation with 2 mg Ativan IV 1. Repeat EEG today pending Currently on fosphenytoin 100 mg IV every 6 hours. A.m. level pending. Along with levetiracetam 1000 mg IV twice a day. Neurosurgery/Dr. Godfrey follows CV: Atrial fibrillation Hypertension Currently on lopressor with parameters for heart rate and blood pressure Not requiring vasopressors and/or antihypertensives. Goal keep systolic blood pressure less than 150 Resp: GI: Docusate sodium 100 mg twice a day/senna 8.6 mg twice a day for bowel regimen : BPH Maintain Prabhakar Currently on tamsulosin 0.4 mg by mouth daily and tolterodine 2 mg by mouth daily - hospital substitution for finasteride 5 mg by mouth daily Endo: Diabetes mellitus - hemoglobin A1c 6.0 Currently on Novulin R sliding scale insulin every 6 hours to maintain euglycemia Add levemir bid. Renal: Creatinine currently within normal limits Monitor urine output Accurate I's and O's Heme: Leukocytosis Normocytic anemia Coags within normal limit ID: Cultures 11/17 Vanc, Cefepime started 11/17 Pertinent cultures 11/11 - blood cultures 2 - no growth FEN: Hypophosphatemia MSK: Physical therapy evaluate and treat Access Left IJ CVL day #7 placed 11/12/2016 -> removed. Prophylaxis - GI - lanosprazole DVT - SCD/pharmacological prophylaxis when okay with neurosurgery Discussed with the patient,. nurse, family at bedside DC plan; Pending improvement. Need rehab. Consult PT/OT /Miracle Parra MD Nov 24, 2016 09:04
[2016-11-24] MEDS: TOLTERODINE TARTRATE 2 MG CAP LA PO SCH (09:19)
[2016-11-24] MEDS: SODIUM CHLORIDE 0.9% FLUSH 10 ML FLUSH IV FLUSH SCH ×2 (09:19→21:00)
[2016-11-24] MEDS: FUROSEMIDE 40 MG/4 ML VIAL IV PUSH SCH (09:20)
[2016-11-24] MEDS: METOPROLOL TARTRATE 25 MG TAB PO SCH ×2 (09:20→22:16)
[2016-11-24] MEDS: LANSOPRAZOLE SOLUTAB 30 MG TAB NG SCH (09:21)
[2016-11-24] MEDS: SODIUM CHLORIDE 0.9% FLUSH 10 ML FLUSH IVF SCH (09:21)
[2016-11-24] MEDS: FINASTERIDE 5 MG TAB PO SCH (09:21)
[2016-11-24] MEDS: ARTIFICIAL TEARS OPTH SOLN 15 ML BTL EACH EYE SCH ×3 (09:22→17:47)
[2016-11-24 09:35] LABS: EOSINOPHILS 3 % (0-4); NEUTROPHIL # MANUAL DIFF 3.7 TH/MM3 (1.8-7.7); POLYS (SEG NEUTROPHILS) 35 % (16-70); WBC DIFF SAMPLE 100
[2016-11-24 09:36] LABS: PLATELET ESTIMATE SMEAR NORMAL (NORMAL); PLATELET MORPHOLOGY NORMAL (NORMAL); SCAN/DIFF FINAL DIFF MANUAL; SMUDGE CELLS PRESENT PRESENT
[2016-11-24 09:38] LABS: ACANTHOCYTES OCC (NORMAL)
[2016-11-24 12:00] VITALS: BP 101/56; PULSE 99; RESP 26; TEMP 97.5; O2SAT 98
--- NOTE | 2016-11-24 12:14 | HHI.NSPN ---
(CindyBrennon MACIAS) History Chief Complaint: Unable to obtain due to patient's mental condition. (CindyBrennon MACIAS) Interval History 11/09: 80-year-old male who according to his family was going up a step into the house with his cane when he fell backwards, striking the back of his head. He was reportedly unconscious for 10-15 minutes. He then had some shaking in the extremities as he was waking up. He has been somewhat sleepy and a little confused since he woke up at the patient's family states that he is conversing reasonably well with them. He normally is fairly independent, ambulating with a cane and is usually mentally alert with only mild memory loss. Positive emesis reported. Patient has no complaint of headache or neck pain. No complaint of low back or joint pain. 11/10: nursing reports agitated overnight, currently sleeping. f/u CT Head completed, moves all four extremities. son translated - oriented to name and place only. 11/11: Notified by PARVIN Stoner, that Nursing had notified her that the patient's mental status was worse this morning and that she had ordered a stat CT brain. When seen this morning the patient is obtunded and not answering to verbal stimuli. Nursing reports that CT had called and was sending someone up to transport the patient to the scanner. She stated that the patient did receive morphine and hydrocodone during the night for pain because he was agitated. 11/12: The patient has been intubated this morning due to persistent decreased mental status. Possibly a few more episodes of seizure activity reported last evening. He is continuing on Dilantin and Keppra for seizures. 11/13: The patient still is intubated, mechanically ventilated and sedated with midazolam. He does not respond to noxious stimulation. The EEG done yesterday morning did demonstrate seizure activity. Neurology evaluated the patient yesterday and adjusted his anti-epileptic medications. An EEG was done this morning prior to the patient being seen. 11/14: The patient remains intubated. A midazolam drip is still infusing as is a fentanyl drip. A repeat Ct brain this morning demonstrated evolving contusions and haemorrhages. 11/15: The patient is intubated without any sedation. The midazolam and fentanyl infusions were discontinued yesterday. A 3% saline drip continues to infuse. He did have a slight twitching of the eyelids when his name was called but no eye opening. 11/16: This morning the patient opened his eyes to verbal stimulation. He continues to be intubated without any sedation. 11/17/16: Patient remains intubated. He had a dose of intravenous sedation last night for agitation. Remains relatively alert. Positive fever last evening. Some difficulty with hemodynamic instability last evening. 11/18: The patient is on a cooling blanket with ice packs when seen this morning. He continues to be intubated. He does look to whomever is speaking and did follow commands. 11/19: The patient is asleep but awakens on his own. He was extubated this morning and is now on a nasal cannula. He follows commands and moves all his extremities to a degree. He does tell his daughter that he is tired. The family reports earlier that the patient did ask where his and son were by name. 11/20: When seen this afternoon the patient had just been transferred to a regular med/surg floor. He appears mildly distressed and is moaning. His daughter states that he has said he has pain all over. 11/21: Notified by [facility] physician (Dr Mejia, PGY1) that patient was having increased respiratory effort. He reported that the patient's oxygen saturation was satisfactory but the chest x-ray demonstrated fluid overload. Therefore 40 mg furosemide IV was ordered as was a nebuliser treatment. When seen the patient appeared moderately distress and had just received the furosemide with the nebuliser treatment ongoing. The Charge Nurse reported that the patient was lethargic and not responding to commands. He reported that the Stereo Equipment Installer is aware that the patient is being transferred to [facility] for further care and management. The Hospitalist was present and evaluating the patient. 11/22: Patient not opening eyes or following commands. Not verbalizing. 11/23: Pt opens eyes and tracks around room. He is restless. Not following commands for staff or reportedly family. Pt not verbalizing. 11/24: This morning the patient is awake and tracks. He is noted to move the upper extremities spontaneously. He moans but there is no other verbalisation. The son did state that yesterday he was talking quite a bit. When asked the son states that he has no complaint of pain but says that he feels tired all the time. (Brennon White) System Review Comments Unable to obtain due to patient's mental condition. (Brennon White) Exam Results 11/22/16 11/22/16 11/23/16 11/23/16 11/24/16 11/24/16 06:00 18:00 06:00 18:00 06:00 18:00 Intake Total 240 ml 356 ml 1368 ml 200 ml Output Total 700 ml 2200 ml 400 ml 1850 ml 200 ml Balance -700 ml -1960 ml -44 ml -482 ml 200 ml -200 ml Intake Oral 240 ml IV Total 356 ml 1368 ml 200 ml Output Urine Total 700 ml 2200 ml 400 ml 1850 ml 200 ml # Bowel Movements 1 1 2 Vital Signs Date Time Temp Pulse Resp B/P (MAP) Pulse Ox O2 Delivery O2 Flow Rate FiO2 11/24/16 08:00 97.7 85 18 133/63 (86) 94 11/24/16 04:10 97.8 85 24 127/65 (85) 91 11/24/16 01:43 95 Nasal Cannula 1.00 11/24/16 00:04 97.7 88 24 113/58 (76) 94 11/23/16 21:40 97.7 91 22 111/62 (78) 96 11/23/16 18:00 89 11/23/16 16:00 97.6 83 26 123/58 (79) 98 11/23/16 16:00 83 11/23/16 14:00 87 11/23/16 12:00 97.7 84 26 116/65 (82) 97 11/23/16 12:00 84 11/23/16 10:00 85 11/23/16 08:00 98.2 95 26 110/58 (75) 96 11/23/16 08:00 94 11/23/16 07:00 96 Nasal Cannula 2.00 11/23/16 07:00 Nasal Cannula 2.00 11/23/16 06:00 95 11/23/16 04:00 96 11/23/16 04:00 98.3 96 26 118/58 (78) 96 11/23/16 02:00 95 11/23/16 00:00 98.9 92 29 117/57 (77) 100 11/23/16 00:00 92 11/22/16 22:00 98 11/22/16 21:30 98 Nasal Cannula 2.00 11/22/16 21:07 97 4.00 11/22/16 20:00 106 11/22/16 20:00 99.1 106 24 125/68 (87) 99 11/22/16 19:00 99 Nasal Cannula 4.00 11/22/16 18:00 108 11/22/16 16:00 98.9 108 20 113/57 (75) 95 11/22/16 16:00 108 11/22/16 15:00 110 11/22/16 14:00 110 11/22/16 13:00 108 11/22/16 12:00 98.6 108 24 127/62 (83) 100 11/22/16 12:00 108 11/22/16 11:00 106 11/22/16 10:00 106 11/22/16 09:00 100 Non-Rebreather 11/22/16 09:00 108 11/22/16 08:01 99 Nasal Cannula 5.00 11/22/16 08:00 106 11/22/16 08:00 98.2 106 24 106/61 (76) 100 11/22/16 06:57 106 11/22/16 06:00 107 11/22/16 04:00 98.9 108 30 125/58 (80) 100 11/22/16 04:00 108 11/22/16 03:35 96 Simple Mask 8.00 11/22/16 02:00 106 11/22/16 00:00 108 11/22/16 00:00 98.6 108 30 154/64 (94) 100 11/21/16 22:55 99 Simple Mask 10.00 11/21/16 22:00 102 11/21/16 20:00 99.3 100 35 144/60 (88) 100 11/21/16 20:00 100 11/21/16 19:00 100 Non-Rebreather 11/21/16 16:00 99.0 94 34 146/65 (92) 100 11/21/16 15:58 100 Partial Rebreather 12.00 11/21/16 12:00 99.3 111 36 140/67 (91) 100 (Brennon White) Physical Examination GENERAL: Patient awake & tracking. He does not appear in any distress. SKIN: Warm, dry & intact w/o any evident rashes, ulcerations or lesions. HEENT: Normocephalic. Right pupil 2mm and appears sluggish, left appears irregular. NECK: No JVD, trachea midline. CARDIOVASCULAR: S1S2 w/RRR w/o M/G/R, radial & pedal pulses 2+ bilaterally, cap refill < 2 sec, 1+ pedal edema bilaterally. RESPIRATORY: Essentially clear bilaterally, equal excursion, slightly tachypneic , on NC. GASTROINTESTINAL: Abdomen soft, appears tender, moaning & reaches for practitioner's hands as palpated, bowel sounds not appreciated. MUSCULOSKELETAL: No evident deformity or clubbing. NEUROLOGICAL: Awake & moaning. GCS 11-12 (E4 V2 M5-6). No verbalisation except for moaning. Right pupil 2mm and appears sluggish, left appears irregular, patient attempts to avoid having pupils checked. Questionable if patient did follow simple commands. Questionable if patient did squeeze right had to command. He spontaneously moves all extremities to a limited degree but no other movement noted to command. He did reach up and grasp this practitioner's hand with his right as well as move the left hand upon palpation of the abdomen. Unable to assess sensation. (Brennon White) Lab, Micro, Other Results Laboratory Tests Test 11/21/16 14:30 11/22/16 06:11 11/22/16 08:44 11/23/16 04:55 D-Dimer Quantitative (PE/DVT) 24.65 MG/L FEU White Blood Count 11.0 TH/MM3 Red Blood Count 3.21 MIL/MM3 Hemoglobin 9.5 GM/DL Hematocrit 29.2 % Mean Corpuscular Volume 91.2 FL Mean Corpuscular Hemoglobin 29.6 PG Mean Corpuscular Hemoglobin Concent 32.4 % Red Cell Distribution Width 18.1 % Platelet Count 252 TH/MM3 Mean Platelet Volume 7.9 FL Neutrophils (%) (Auto) 32.1 % Lymphocytes (%) (Auto) 58.1 % Monocytes (%) (Auto) 7.0 % Eosinophils (%) (Auto) 2.3 % Basophils (%) (Auto) 0.5 % Neutrophils # (Auto) 3.5 TH/MM3 Lymphocytes # (Auto) 6.4 TH/MM3 Monocytes # (Auto) 0.8 TH/MM3 Eosinophils # (Auto) 0.3 TH/MM3 Basophils # (Auto) 0.0 TH/MM3 CBC Comment AUTO DIFF Differential Total Cells Counted 100 Neutrophils % (Manual) 44 % Lymphocytes % 47 % Monocytes % 6 % Eosinophils % 2 % Basophils % 1 % Neutrophils # (Manual) 4.8 TH/MM3 Nucleated Red Blood Cells 1 /100 WBC Differential Comment FINAL DIFF MANUAL Toxic Granulation 1+ Basophilic Stippling FAINT Ovalocytes 1+ Keratocytes OCC Hematology Comments Blood Urea Nitrogen 19 MG/DL 17 MG/DL Creatinine 0.52 MG/DL 0.60 MG/DL Random Glucose 96 MG/DL 122 MG/DL Calcium Level 7.7 MG/DL 8.4 MG/DL Sodium Level 152 MEQ/L 150 MEQ/L Potassium Level 3.5 MEQ/L 3.1 MEQ/L Chloride Level 116 MEQ/L 113 MEQ/L Carbon Dioxide Level 26.8 MEQ/L 30.9 MEQ/L Anion Gap 9 MEQ/L 6 MEQ/L Estimat Glomerular Filtration Rate 152 ML/MIN 129 ML/MIN B-Type Natriuretic Peptide 388 PG/ML Vancomycin Level Trough 25.3 MCG/ML Random Vancomycin Level 15.0 COMMENT Test 11/23/16 20:40 11/24/16 07:39 Potassium Level 3.6 MEQ/L 3.3 MEQ/L White Blood Count 10.5 TH/MM3 Red Blood Count 3.06 MIL/MM3 Hemoglobin 9.0 GM/DL Hematocrit 27.9 % Mean Corpuscular Volume 91.2 FL Mean Corpuscular Hemoglobin 29.5 PG Mean Corpuscular Hemoglobin Concent 32.4 % Red Cell Distribution Width 18.0 % Platelet Count 299 TH/MM3 Mean Platelet Volume 7.6 FL Neutrophils (%) (Auto) 28.0 % Lymphocytes (%) (Auto) 62.0 % Monocytes (%) (Auto) 7.3 % Eosinophils (%) (Auto) 2.3 % Basophils (%) (Auto) 0.4 % Neutrophils # (Auto) 2.9 TH/MM3 Lymphocytes # (Auto) 6.5 TH/MM3 Monocytes # (Auto) 0.8 TH/MM3 Eosinophils # (Auto) 0.2 TH/MM3 Basophils # (Auto) 0.0 TH/MM3 CBC Comment AUTO DIFF Differential Total Cells Counted 100 Neutrophils % (Manual) 35 % Lymphocytes % 60 % Monocytes % 2 % Eosinophils % 3 % Neutrophils # (Manual) 3.7 TH/MM3 Differential Comment FINAL DIFF MANUAL Smudge Cells PRESENT Platelet Estimate NORMAL Platelet Morphology Comment NORMAL Basophilic Stippling FAINT Acanthocytes OCC Blood Urea Nitrogen 19 MG/DL Creatinine 0.49 MG/DL Random Glucose 108 MG/DL Calcium Level 7.8 MG/DL Sodium Level 148 MEQ/L Chloride Level 112 MEQ/L Carbon Dioxide Level 29.5 MEQ/L Anion Gap 7 MEQ/L Estimat Glomerular Filtration Rate 163 ML/MIN Random Vancomycin Level 15.5 COMMENT (Brennon White) Medical Decision Making Impression and Plan Impression: 1. Traumatic brain injury 2. Hypertension 3. Diabetes 4. Respiratory failure 5. Seizures No leukocytosis this morning. Sodium 148 this morning. Blood cultures x2 () positive for Staphylococcus aureus, Staphylococcus epidermidis & Viridians Streptococcus group & Staphylococcus warneri, on vancomycin. Patient maintaining airway, neuro exam essentially stable. Plan: Plan of care discussed with patient's son. Medical management per Hospitalist. Continue neuro checks. Continue present diabetic medications with insulin sliding scale. Non-chemical DVT prophylaxis. Ulcer prophylaxis. Appreciate Hospitalist's input and assistance. (Brennon White) Attending Statement The exam, history, and the medical decision-making described in the above note were completed with the assistance of the mid-level provider. I reviewed and agree with the findings presented. I attest that I had a [id number] encounter with the patient on the same day, and personally performed and documented my assessment and findings in the medical record. Continuing insulin sliding scale Monitoring electrolytes Continue seizure prophylaxis (Tony Godfrey MD) Brennon White Nov 24, 2016 12:12 Tony Godfrey MD Dec 15, 2016 05:36
[2016-11-24] MEDS: VANCOMYCIN 1,500 MG/NS 500 ML IV SCH ×2 (13:29)
[2016-11-24] MEDS ORDERED: DEXTROSE 50% IN WATER 50 ML SYRINGE ONE ×2 (15:14→15:21)
[2016-11-24 16:00] VITALS: BP 110/58; PULSE 78; RESP 22; TEMP 98.1; O2SAT 94
[2016-11-24 20:00] VITALS: BP 130/69; PULSE 83; RESP 18; TEMP 97.4; O2SAT 94
[2016-11-24] MEDS: TAMSULOSIN HCL 0.4 MG CAP PO SCH (22:16)
[2016-11-24] MEDS: ACETAMINOPHEN 650 MG/20.3 ML UDC NG PRN (22:16)
[2016-11-25] VITALS: BP 132/73; PULSE 78; RESP 18; TEMP 97.2; O2SAT 94
[2016-11-25 04:00] VITALS: BP 135/66; PULSE 83; RESP 20; TEMP 97.2; O2SAT 96
[2016-11-25 08:00] VITALS: BP 125/67; PULSE 87; RESP 24; O2SAT 99
[2016-11-25] MEDS: INSULIN ASPART SUPPLEMENTAL SCALE SQ SCH ×4 (08:00→21:11)
[2016-11-25] MEDS: CHLORHEXIDINE 0.12% (ORAL KIT) 15 ML CUP MT SCH ×2 (08:00→20:00)
[2016-11-25] MEDS: SENNOSIDES SYRUP 8.8 MG/5 ML CUP NG SCH ×2 (09:00→20:59)
[2016-11-25] MEDS: METOPROLOL TARTRATE 25 MG TAB PO SCH ×2 (09:00→20:59)
[2016-11-25] MEDS: FUROSEMIDE 40 MG/4 ML VIAL IV PUSH SCH (09:00)
[2016-11-25] MEDS: LACTULOSE SYRUP 20 GM/30 ML CUP PO SCH (09:00)
[2016-11-25] MEDS: POLYETHYLENE GLYCOL 17 GM PKG OG-TUBE SCH ×2 (09:00→20:59)
[2016-11-25] MEDS: SODIUM CHLORIDE 0.9% FLUSH 10 ML FLUSH IV FLUSH SCH ×2 (09:00→20:59)
[2016-11-25] MEDS: ARTIFICIAL TEARS OPTH SOLN 15 ML BTL EACH EYE SCH ×3 (09:00→18:00)
[2016-11-25] MEDS: SODIUM CHLORIDE 0.9% FLUSH 10 ML FLUSH IVF SCH (09:00)
[2016-11-25] MEDS: DOCUSATE SODIUM 100 MG/10 ML UDC PO SCH ×2 (09:00→20:59)
[2016-11-25] MEDS ORDERED: DEXTROSE 50% IN WATER 50 ML SYRINGE IV PRN (09:30)
[2016-11-25] MEDS: LANSOPRAZOLE SOLUTAB 30 MG TAB NG SCH (10:00)
[2016-11-25] MEDS: FINASTERIDE 5 MG TAB PO SCH (10:00)
[2016-11-25] MEDS: TOLTERODINE TARTRATE 2 MG CAP LA PO SCH (10:05)
--- NOTE | 2016-11-25 10:16 | HHI.PR ---
Subjective Remarks More awake and alert today, follows some commands per family. Moves hands more than the legs. Noted hypoglycemic as he is not eating DC levemir. on hypoglycemic protocol. NO fever or chills. Feels very weak and tired. No appetite. Objective Vitals Vital Signs Date Time Temp Pulse Resp B/P (MAP) Pulse Ox O2 Delivery O2 Flow Rate FiO2 11/25/16 08:00 87 24 125/67 (86) 99 11/25/16 04:00 97.2 83 20 135/66 (89) 96 11/25/16 00:00 97.2 78 18 132/73 (92) 94 11/24/16 20:00 97.4 83 18 130/69 (89) 94 11/24/16 16:00 98.1 78 22 110/58 (75) 94 11/24/16 12:00 97.5 99 26 101/56 (71) 98 I/O 11/24/16 11/24/16 11/24/16 11/25/16 11/25/16 11/25/16 07:00 15:00 23:00 07:00 15:00 23:00 Intake Total 50 ml 50 ml 600 ml 700 ml Output Total 200 ml 775 ml Balance -150 ml -725 ml 600 ml 700 ml Intake Oral 0 ml 700 ml IV Total 50 ml 50 ml 600 ml Output Urine Total 200 ml 775 ml # Bowel Movements 1 Result Diagram: 11/24/16 0739 11/24/16 1632 Imaging Last Impressions Head CT 11/21/16 0000 Signed Impressions: Service Date/Time: Monday, November 21, 2016 10:22 - CONCLUSION: Grossly stable brain appearance Lonnie Blanchard MD Chest X-Ray 11/21/16 0000 Signed Impressions: Service Date/Time: Monday, November 21, 2016 09:25 - CONCLUSION: 1. Continued basilar effusions and diffuse interstitial prominence suggesting congestive failure. 2. Continued consolidation at the left lung base. Anthony Burns MD Transcranial Doppler Study Complete 11/17/16 0000 Signed Impressions: Service Date/Time: Thursday, November 17, 2016 10:03 - CONCLUSION: 1. Nondiagnostic examination due to poor transcranial windows. Konstantin Dash MD Abdomen X-Ray 11/12/16 0000 Signed Impressions: Service Date/Time: Saturday, November 12, 2016 08:23 - CONCLUSION: 1. Gastric tube in good position. 2. Probable right renal stones. Narayan Coulter MD Cervical Spine CT 11/09/161950 Signed Impressions: Service Date/Time: Wednesday, November 09, 2016 20:14 - CONCLUSION: Negative trauma CT. Cj Isidro MD Objective Remarks GENERAL: 80 yo male, in bed, appears chronically ill, sick. EYES: No scleral icterus. No injection or drainage. NECK: Supple, trachea midline. No JVD or lymphadenopathy. CARDIOVASCULAR: Regular rate and rhythm without murmurs, gallops, or rubs. RESPIRATORY: Breath sounds decreased, bibasilar crackles. No accessory muscle use. GASTROINTESTINAL: Abdomen soft, non-tender, nondistended. MUSCULOSKELETAL: No cyanosis, or edema. BACK: Nontender without obvious deformity. No CVA tenderness. NEURO: Patient is more awake, Moves arms in legs. Date of Insertion: Nov 12, 2016 Line: Central Venous Catheter Side: Right Location: Internal, Jugular A/P Problem List: (1) Subdural hematoma ICD Code: I62.00 - Nontraumatic subdural hemorrhage, unspecified Status: Acute (2) Diabetes ICD Code: E11.9 - Type 2 diabetes mellitus without complications (3) Leukocytosis ICD Code: D72.829 - Elevated white blood cell count, unspecified Status: Acute (4) HTN (hypertension) ICD Code: I10 - Essential (primary) hypertension Status: Chronic Assessment and Plan Acute respiratory insufficiency secondary to altered mental status, improving Extubated 11/19 Patient was transferred to med/surg floor and on 11/21 noted more lethargic and with sob, patiemt with acute repiratory failure 2/2 fluid overload. CXR with congestion. Receive lasix 40 IV x 1 time, prabhakar placed for accurate OP , had 1800 UOP after lasix. Respiratory status improving. ABG, cbc, bmp, LA stat. Patient was transferred back to ICU for further care, Skip Locator consulted. Patient is also noted more letahrgic will repeat CT head, discussed with Villa MELENDREZ from neurosurgical team 11/24/16 patient still with sob , congested, continue lasix. monitor UOP and kidney function closely. O2 support Neuro/Psych: Closed head injury - Traumatic Bilateral large intra-parenchymal hemorrhages/right temporal/parietal subdural hematoma and bifrontal contusions Nonconvulsive seizures CT brain 11/11 revealed bi frontal contusions, right temporal/parietal subdural hematoma around 8 mm in subarachnoid hemorrhage EEG 11/11 revealed mild to moderate encephalopathy. Right frontal/central generalized slowing with intermittent sharps waves Repeat EEG 11/12 revealed 2 clinical seizure activities that cessation with 2 mg Ativan IV 1. Repeat EEG today pending Currently on fosphenytoin 100 mg IV every 6 hours. A.m. level pending. Along with levetiracetam 1000 mg IV twice a day. Neurosurgery/Dr. Godfrey follows CV: Atrial fibrillation Hypertension Currently on lopressor with parameters for heart rate and blood pressure Not requiring vasopressors and/or antihypertensives. Goal keep systolic blood pressure less than 150 Resp: GI: Docusate sodium 100 mg twice a day/senna 8.6 mg twice a day for bowel regimen : BPH Maintain Prabhakar Currently on tamsulosin 0.4 mg by mouth daily and tolterodine 2 mg by mouth daily - hospital substitution for finasteride 5 mg by mouth daily Endo: Diabetes mellitus - hemoglobin A1c 6.0 DC levemir as noted hypoglycemia patient is not eating. Novolin R sliding scale insulin if need. Hypoglycemic protocol CXonsul dietary Add MVT, megace to increase appetite Junior Paralegal for calorie count Renal: Creatinine currently within normal limits Monitor urine output Accurate I's and O's Heme: Leukocytosis Normocytic anemia Coags within normal limit ID: Cultures 11/17 Vanc, Cefepime started 11/17 Pertinent cultures 11/11 - blood cultures 2 - no growth FEN: Hypophosphatemia MSK: Physical therapy evaluate and treat Access Left IJ CVL day #7 placed 11/12/2016 -> removed. Prophylaxis - GI - lanosprazole DVT - SCD/pharmacological prophylaxis when okay with neurosurgery Discussed with the patient,. nurse, family at bedside DC plan; Pending improvement. Needs rehab. Consult PT/OT /Miracle Parra MD Nov 25, 2016 10:15
[2016-11-25] MEDS ORDERED: MEGESTROL ACETATE SUSP 400 MG/10 ML CUP PO ONE (11:15)
[2016-11-25 12:00] VITALS: BP 107/63; PULSE 87; RESP 24; O2SAT 99
[2016-11-25] MEDS: FOSPHENYTOIN INJ 100 MGPE in SODIUM CHLORIDE 0.9% INJ 50 ML IV SCH ×3 (12:00→23:30)
[2016-11-25] MEDS: levETIRAcetam 1000 MG INJ 100 ML IV SCH ×2 (13:31→21:00)
[2016-11-25] MEDS: VANCOMYCIN 1,500 MG/NS 500 ML IV SCH ×2 (14:40)
[2016-11-25 16:00] VITALS: BP 121/62; PULSE 85; RESP 24; O2SAT 99
--- NOTE | 2016-11-25 16:03 | HHI.NSPN ---
(CindyBrennon MACIAS) History Chief Complaint: Unable to obtain due to patient's mental condition. (CindyBrennon MACIAS) Interval History 11/09: 80-year-old male who according to his family was going up a step into the house with his cane when he fell backwards, striking the back of his head. He was reportedly unconscious for 10-15 minutes. He then had some shaking in the extremities as he was waking up. He has been somewhat sleepy and a little confused since he woke up at the patient's family states that he is conversing reasonably well with them. He normally is fairly independent, ambulating with a cane and is usually mentally alert with only mild memory loss. Positive emesis reported. Patient has no complaint of headache or neck pain. No complaint of low back or joint pain. 11/10: nursing reports agitated overnight, currently sleeping. f/u CT Head completed, moves all four extremities. son translated - oriented to name and place only. 11/11: Notified by PARVIN Stoner, that Nursing had notified her that the patient's mental status was worse this morning and that she had ordered a stat CT brain. When seen this morning the patient is obtunded and not answering to verbal stimuli. Nursing reports that CT had called and was sending someone up to transport the patient to the scanner. She stated that the patient did receive morphine and hydrocodone during the night for pain because he was agitated. 11/12: The patient has been intubated this morning due to persistent decreased mental status. Possibly a few more episodes of seizure activity reported last evening. He is continuing on Dilantin and Keppra for seizures. 11/13: The patient still is intubated, mechanically ventilated and sedated with midazolam. He does not respond to noxious stimulation. The EEG done yesterday morning did demonstrate seizure activity. Neurology evaluated the patient yesterday and adjusted his anti-epileptic medications. An EEG was done this morning prior to the patient being seen. 11/14: The patient remains intubated. A midazolam drip is still infusing as is a fentanyl drip. A repeat Ct brain this morning demonstrated evolving contusions and haemorrhages. 11/15: The patient is intubated without any sedation. The midazolam and fentanyl infusions were discontinued yesterday. A 3% saline drip continues to infuse. He did have a slight twitching of the eyelids when his name was called but no eye opening. 11/16: This morning the patient opened his eyes to verbal stimulation. He continues to be intubated without any sedation. 11/17/16: Patient remains intubated. He had a dose of intravenous sedation last night for agitation. Remains relatively alert. Positive fever last evening. Some difficulty with hemodynamic instability last evening. 11/18: The patient is on a cooling blanket with ice packs when seen this morning. He continues to be intubated. He does look to whomever is speaking and did follow commands. 11/19: The patient is asleep but awakens on his own. He was extubated this morning and is now on a nasal cannula. He follows commands and moves all his extremities to a degree. He does tell his daughter that he is tired. The family reports earlier that the patient did ask where his and son were by name. 11/20: When seen this afternoon the patient had just been transferred to a regular med/surg floor. He appears mildly distressed and is moaning. His daughter states that he has said he has pain all over. 11/21: Notified by [facility] physician (Dr Mejia, PGY1) that patient was having increased respiratory effort. He reported that the patient's oxygen saturation was satisfactory but the chest x-ray demonstrated fluid overload. Therefore 40 mg furosemide IV was ordered as was a nebuliser treatment. When seen the patient appeared moderately distress and had just received the furosemide with the nebuliser treatment ongoing. The Charge Nurse reported that the patient was lethargic and not responding to commands. He reported that the Analog Circuit Designer is aware that the patient is being transferred to [facility] for further care and management. The Hospitalist was present and evaluating the patient. 11/22: Patient not opening eyes or following commands. Not verbalizing. 11/23: Pt opens eyes and tracks around room. He is restless. Not following commands for staff or reportedly family. Pt not verbalizing. 11/24: This morning the patient is awake and tracks. He is noted to move the upper extremities spontaneously. He moans but there is no other verbalisation. The son did state that yesterday he was talking quite a bit. When asked the son states that he has no complaint of pain but says that he feels tired all the time. 11/25: The patient is drowsy when seen this afternoon. He does squeeze with the right hand mimicking it demonstrated, otherwise he responded to local noxious stimulation. He did attempt to verbalise a few words. (Brennon White) System Review Comments Unable to obtain due to patient's mental condition. (Brennon White) Exam Results 11/23/16 11/23/16 11/24/16 11/24/16 11/25/16 11/25/16 06:00 18:00 06:00 18:00 06:00 18:00 Intake Total 356 ml 1368 ml 200 ml 650 ml 1180 ml Output Total 400 ml 1850 ml 975 ml Balance -44 ml -482 ml 200 ml -325 ml 1180 ml Intake Oral 0 ml 1180 ml IV Total 356 ml 1368 ml 200 ml 650 ml Output Urine Total 400 ml 1850 ml 975 ml # Bowel Movements 1 2 1 2 Vital Signs Date Time Temp Pulse Resp B/P (MAP) Pulse Ox O2 Delivery O2 Flow Rate FiO2 11/25/16 12:00 87 24 107/63 (78) 99 11/25/16 08:00 87 24 125/67 (86) 99 11/25/16 04:00 97.2 83 20 135/66 (89) 96 11/25/16 00:00 97.2 78 18 132/73 (92) 94 11/24/16 20:00 97.4 83 18 130/69 (89) 94 11/24/16 16:00 98.1 78 22 110/58 (75) 94 11/24/16 12:00 97.5 99 26 101/56 (71) 98 11/24/16 08:00 97.7 85 18 133/63 (86) 94 11/24/16 08:00 94 Nasal Cannula 1.00 11/24/16 04:10 97.8 85 24 127/65 (85) 91 11/24/16 01:43 95 Nasal Cannula 1.00 11/24/16 00:04 97.7 88 24 113/58 (76) 94 11/23/16 21:40 97.7 91 22 111/62 (78) 96 11/23/16 18:00 89 11/23/16 16:00 97.6 83 26 123/58 (79) 98 11/23/16 16:00 83 11/23/16 14:00 87 11/23/16 12:00 97.7 84 26 116/65 (82) 97 11/23/16 12:00 84 11/23/16 10:00 85 11/23/16 08:00 98.2 95 26 110/58 (75) 96 11/23/16 08:00 94 11/23/16 07:00 96 Nasal Cannula 2.00 11/23/16 07:00 Nasal Cannula 2.00 11/23/16 06:00 95 11/23/16 04:00 96 11/23/16 04:00 98.3 96 26 118/58 (78) 96 11/23/16 02:00 95 11/23/16 00:00 98.9 92 29 117/57 (77) 100 11/23/16 00:00 92 11/22/16 22:00 98 11/22/16 21:30 98 Nasal Cannula 2.00 11/22/16 21:07 97 4.00 11/22/16 20:00 106 11/22/16 20:00 99.1 106 24 125/68 (87) 99 11/22/16 19:00 99 Nasal Cannula 4.00 11/22/16 18:00 108 11/22/16 16:00 98.9 108 20 113/57 (75) 95 11/22/16 16:00 108 (Brennon White) Physical Examination GENERAL: Patient drowsy but does interact. He does not appear in any distress. SKIN: Warm, dry & intact w/o any evident rashes, ulcerations or lesions. HEENT: Normocephalic. Right pupil 2mm and appears sluggish, left appears irregular. NECK: No JVD, trachea midline. CARDIOVASCULAR: S1S2 w/RRR w/o M/G/R, radial & pedal pulses 2+ bilaterally, cap refill < 2 sec, 1+ pedal edema bilaterally. RESPIRATORY: Slightly coarse bilaterally w/referred sounds from throat, equal excursion, slightly tachypneic, on NC. GASTROINTESTINAL: Abdomen soft, appears nontender, bowel sounds not appreciated. MUSCULOSKELETAL: No evident deformity or clubbing. NEUROLOGICAL: Awake & fairly alert briefly but does drift off to sleep. GCS 13 (E4 V3 M6). Attempted to verbal a few words otherwise was moaning. Right pupil 2mm and appears sluggish, left appears irregular, patient attempts to avoid having pupils checked. Did mimick simple command to squeeze after demonstrated. Weak right hand egg packer to command. Withdrew to local noxious stimulation to LUE & BLE. Unable to assess sensation. (Brennon White) Lab, Micro, Other Results Laboratory Tests Test 11/23/16 04:55 11/23/16 20:40 11/24/16 07:39 11/24/16 16:32 Blood Urea Nitrogen 17 MG/DL 19 MG/DL Creatinine 0.60 MG/DL 0.49 MG/DL Random Glucose 122 MG/DL 108 MG/DL 144 MG/DL Calcium Level 8.4 MG/DL 7.8 MG/DL Sodium Level 150 MEQ/L 148 MEQ/L Potassium Level 3.1 MEQ/L 3.6 MEQ/L 3.3 MEQ/L Chloride Level 113 MEQ/L 112 MEQ/L Carbon Dioxide Level 30.9 MEQ/L 29.5 MEQ/L Anion Gap 6 MEQ/L 7 MEQ/L Estimat Glomerular Filtration Rate 129 ML/MIN 163 ML/MIN Random Vancomycin Level 15.0 COMMENT 15.5 COMMENT White Blood Count 10.5 TH/MM3 Red Blood Count 3.06 MIL/MM3 Hemoglobin 9.0 GM/DL Hematocrit 27.9 % Mean Corpuscular Volume 91.2 FL Mean Corpuscular Hemoglobin 29.5 PG Mean Corpuscular Hemoglobin Concent 32.4 % Red Cell Distribution Width 18.0 % Platelet Count 299 TH/MM3 Mean Platelet Volume 7.6 FL Neutrophils (%) (Auto) 28.0 % Lymphocytes (%) (Auto) 62.0 % Monocytes (%) (Auto) 7.3 % Eosinophils (%) (Auto) 2.3 % Basophils (%) (Auto) 0.4 % Neutrophils # (Auto) 2.9 TH/MM3 Lymphocytes # (Auto) 6.5 TH/MM3 Monocytes # (Auto) 0.8 TH/MM3 Eosinophils # (Auto) 0.2 TH/MM3 Basophils # (Auto) 0.0 TH/MM3 CBC Comment AUTO DIFF Differential Total Cells Counted 100 Neutrophils % (Manual) 35 % Lymphocytes % 60 % Monocytes % 2 % Eosinophils % 3 % Neutrophils # (Manual) 3.7 TH/MM3 Differential Comment FINAL DIFF MANUAL Smudge Cells PRESENT Platelet Estimate NORMAL Platelet Morphology Comment NORMAL Basophilic Stippling FAINT Acanthocytes OCC (Brennon White) Medical Decision Making Impression and Plan Impression: 1. Traumatic brain injury 2. Hypertension 3. Diabetes 4. Respiratory failure 5. Seizures Patient maintaining airway, neuro exam essentially stable. Plan: Medical management per Hospitalist. Continue neuro checks. Continue present diabetic medications with insulin sliding scale. Non-chemical DVT prophylaxis. Ulcer prophylaxis. Appreciate Hospitalist's input and assistance. (Brennon White) Attending Statement I have personally seen and examined the patient on the date of this note. Pertinent documentation and study results have been reviewed by the undersigned. I have personally developed the treatment plan and performed medical decision making. Agree with findings, exam, and treatment plan as noted above. On examination this evening, the patient is moderately lethargic. However the patient's daughter at bedside states that he has been mostly quite alert today, conversing a little with the family and following commands. She states that he ate quite well today. Respirations to auscultation reveal mild upper airway congestion, but lung magana otherwise clear. Cardiac regular Abdomen soft The patient's most recent CT scan of the head from 11/21/16 was reviewed with the patient's daughter today. No significant increase in subdural fluid collection compared to the previous scan. There may be some improvement in the left frontotemporal parietal subdural fluid collection. Right frontal contusions continue to evolve with decreasing attenuation. Labs reviewed. Persistent electrolyte abnormalities including mild hypokalemia. Medicine notes reviewed. Patient remains on antihypertensive medications. Remains on antibiotics with recent positive blood cultures from 11/18/16 and reviewed. Wound care evaluation and interventions continue for sacral skin ulceration. Diabetes medications adjusted per medicine. Case management no severe. He is stable for discharge to penitentiary or inpatient rehabilitation from a neurosurgery standpoint once cleared by medicine service. Had a long discussion with the patient's daughter in the room today, for approximately 15 minutes and all questions answered. (Tony Godfrey MD) Brennon White Nov 25, 2016 16:03 Tony Godfrey MD Nov 25, 2016 21:02
[2016-11-25 20:00] VITALS: BP 108/54; PULSE 91; RESP 18; TEMP 97.4; O2SAT 98
[2016-11-25] MEDS: TAMSULOSIN HCL 0.4 MG CAP PO SCH (20:59)
[2016-11-26] VITALS (8 sets, daily range): BP systolic 118–142; BP diastolic 50–88; PULSE 79–111; RESP 18–22; TEMP 97.2–98.9; O2SAT 94–98
[2016-11-26] MEDS: levETIRAcetam 1000 MG INJ 100 ML IV SCH ×3 (05:17→21:53)
[2016-11-26] MEDS: FOSPHENYTOIN INJ 100 MGPE in SODIUM CHLORIDE 0.9% INJ 50 ML IV SCH ×4 (05:17→23:46)
[2016-11-26] MEDS: CHLORHEXIDINE 0.12% (ORAL KIT) 15 ML CUP MT SCH ×2 (08:00→20:00)
[2016-11-26] MEDS: INSULIN ASPART SUPPLEMENTAL SCALE SQ SCH ×4 (08:00→21:00)
[2016-11-26] MEDS ORDERED: CALCIUM CARBONATE 500 MG CHEWABLE TAB CHEW ONE (08:15)
[2016-11-26] MEDS: SODIUM CHLORIDE 0.9% FLUSH 10 ML FLUSH IVF SCH (09:00)
[2016-11-26] MEDS: POTASSIUM PHOSPHATE MONOBASIC 500 MG TAB PO SCH (09:00)
[2016-11-26] MEDS: SENNOSIDES SYRUP 8.8 MG/5 ML CUP NG SCH ×2 (09:00→21:00)
[2016-11-26] MEDS: SODIUM CHLORIDE 0.9% FLUSH 10 ML FLUSH IV FLUSH SCH ×2 (09:00→21:54)
[2016-11-26] MEDS: ARTIFICIAL TEARS OPTH SOLN 15 ML BTL EACH EYE SCH ×3 (09:00→17:33)
[2016-11-26] MEDS: LACTULOSE SYRUP 20 GM/30 ML CUP PO SCH (09:00)
[2016-11-26] MEDS: POLYETHYLENE GLYCOL 17 GM PKG OG-TUBE SCH ×2 (09:00→21:00)
[2016-11-26] MEDS: CALCIUM CARBONATE 500 MG CHEWABLE TAB CHEW SCH ×2 (09:00→21:49)
[2016-11-26] MEDS: METOPROLOL TARTRATE 25 MG TAB PO SCH ×2 (09:00→21:49)
[2016-11-26] MEDS: FUROSEMIDE 40 MG/4 ML VIAL IV PUSH SCH (10:42)
[2016-11-26] MEDS: MEGESTROL ACETATE SUSP 400 MG/10 ML CUP PO SCH (10:46)
[2016-11-26] MEDS: FINASTERIDE 5 MG TAB PO SCH (10:46)
[2016-11-26] MEDS: LANSOPRAZOLE SOLUTAB 30 MG TAB NG SCH (10:46)
[2016-11-26] MEDS: DOCUSATE SODIUM 100 MG/10 ML UDC PO SCH ×2 (10:46→21:00)
[2016-11-26] MEDS: TOLTERODINE TARTRATE 2 MG CAP LA PO SCH (10:48)
[2016-11-26 11:26] LABS: HEMATOCRIT 27.3 % (39.0-51.0); MEAN CELL VOLUME 90.3 FL (80.0-100.0); MEAN CORPUSCULAR HEMOGLOBIN 29.1 PG (27.0-34.0); MEAN CORPUSCULAR HGB CONC 32.3 % (32.0-36.0); PLATELET COUNT 312 TH/MM3 (150-450); RED BLOOD COUNT 3.02 MIL/MM3 (4.50-5.90); RED CELL DISTRIBUTION WIDTH 18.5 % (11.6-17.2); WHITE BLOOD COUNT 7.9 TH/MM3 (4.0-11.0)
[2016-11-26 11:35] LABS: HEMO FLAGS AUTO DIFF
[2016-11-26 11:40] LABS: ALT (GPT) 15 U/L (12-78); ANION GAP 7 MEQ/L (5-15); AST (GOT) 29 U/L (15-37); BICARBONATE 25.6 MEQ/L (21.0-32.0); BLOOD UREA NITROGEN 18 MG/DL (7-18); CHLORIDE 110 MEQ/L (98-107); GLOMERULAR FILTRATION RATE 149 ML/MIN (>89); MAGNESIUM 1.9 MG/DL (1.5-2.5); POTASSIUM 3.2 MEQ/L (3.5-5.1); SODIUM (NA) 143 MEQ/L (136-145)
[2016-11-26 11:42] LABS: ALKALINE PHOSPHATASE 140 U/L (45-117); TOTAL BILIRUBIN ADULT 2.5 MG/DL (0.2-1.0)
--- NOTE | 2016-11-26 11:51 | HHI.PR ---
Subjective Remarks Sleepy per family he is sleepy but arousable by vocal stimuli. Patient falls asleep easily. Follows some commands when asked by family. not able to do PT. Not much cough, no wheezing. Patient denies having any pain. Objective Vitals Vital Signs Date Time Temp Pulse Resp B/P (MAP) Pulse Ox O2 Delivery O2 Flow Rate FiO2 11/26/16 09:14 97 Nasal Cannula 2.00 11/26/16 08:00 98.7 111 20 119/56 (77) 98 11/26/16 05:46 98.9 110 20 118/50 (72) 95 11/26/16 00:00 98.7 79 18 142/88 (106) 94 11/25/16 23:30 94 Nasal Cannula 2.00 11/25/16 21:55 Nasal Cannula 2.00 11/25/16 21:12 Nasal Cannula 2.00 11/25/16 20:00 97.4 91 18 108/54 (72) 98 11/25/16 16:00 85 24 121/62 (81) 99 11/25/16 12:00 87 24 107/63 (78) 99 I/O 11/25/16 11/25/16 11/25/16 11/26/16 11/26/16 11/26/16 07:00 15:00 23:00 07:00 15:00 23:00 Intake Total 1180 ml Output Total 950 ml Balance 1180 ml -950 ml Intake Oral 1180 ml Output Urine Total 950 ml # Bowel Movements 2 2 Result Diagram: 11/26/16 1042 11/26/16 1042 Imaging Last Impressions Head CT 11/21/16 0000 Signed Impressions: Service Date/Time: Monday, November 21, 2016 10:22 - CONCLUSION: Grossly stable brain appearance Lonnie Blanchard MD Chest X-Ray 11/21/16 0000 Signed Impressions: Service Date/Time: Monday, November 21, 2016 09:25 - CONCLUSION: 1. Continued basilar effusions and diffuse interstitial prominence suggesting congestive failure. 2. Continued consolidation at the left lung base. Anthony Burns MD Transcranial Doppler Study Complete 11/17/16 0000 Signed Impressions: Service Date/Time: Thursday, November 17, 2016 10:03 - CONCLUSION: 1. Nondiagnostic examination due to poor transcranial windows. Konstantin Dash MD Abdomen X-Ray 11/12/16 0000 Signed Impressions: Service Date/Time: Saturday, November 12, 2016 08:23 - CONCLUSION: 1. Gastric tube in good position. 2. Probable right renal stones. Narayan Coulter MD Cervical Spine CT 11/09/161950 Signed Impressions: Service Date/Time: Wednesday, November 09, 2016 20:14 - CONCLUSION: Negative trauma CT. Cj Isidro MD Objective Remarks GENERAL: 80 yo male, in bed, appears chronically ill, sick. EYES: No scleral icterus. No injection or drainage. NECK: Supple, trachea midline. No JVD or lymphadenopathy. CARDIOVASCULAR: Regular rate and rhythm without murmurs, gallops, or rubs. RESPIRATORY: Breath sounds decreased, bibasilar crackles. No accessory muscle use. GASTROINTESTINAL: Abdomen soft, non-tender, nondistended. MUSCULOSKELETAL: No cyanosis, or edema. BACK: Nontender without obvious deformity. No CVA tenderness. NEURO: Patient is more awake, Moves arms in legs. Date of Insertion: Nov 12, 2016 Line: Central Venous Catheter Side: Right Location: Internal, Jugular A/P Problem List: (1) Subdural hematoma ICD Code: I62.00 - Nontraumatic subdural hemorrhage, unspecified Status: Acute (2) Diabetes ICD Code: E11.9 - Type 2 diabetes mellitus without complications (3) Leukocytosis ICD Code: D72.829 - Elevated white blood cell count, unspecified Status: Acute (4) HTN (hypertension) ICD Code: I10 - Essential (primary) hypertension Status: Chronic Assessment and Plan Acute respiratory insufficiency secondary to altered mental status, improving Extubated 11/19 Patient was transferred to med/surg floor and on 11/21 noted more lethargic and with sob, patiemt with acute repiratory failure 2/2 fluid overload. CXR with congestion. Receive lasix 40 IV x 1 time, prabhakar placed for accurate OP , had 1800 UOP after lasix. Respiratory status improving. ABG, cbc, bmp, LA stat. Patient was transferred back to ICU for further care, Sales Order Clerk consulted. Patient is also noted more letahrgic will repeat CT head, discussed with Villa MELENDREZ from neurosurgical team 11/24/16 patient still with sob , congested, continue lasix. monitor UOP and kidney function closely. O2 support Neuro/Psych: Closed head injury - Traumatic Bilateral large intra-parenchymal hemorrhages/right temporal/parietal subdural hematoma and bifrontal contusions Nonconvulsive seizures CT brain 11/11 revealed bi frontal contusions, right temporal/parietal subdural hematoma around 8 mm in subarachnoid hemorrhage EEG 11/11 revealed mild to moderate encephalopathy. Right frontal/central generalized slowing with intermittent sharps waves Repeat EEG 11/12 revealed 2 clinical seizure activities that cessation with 2 mg Ativan IV 1. Repeat EEG today pending Currently on fosphenytoin 100 mg IV every 6 hours. A.m. level pending. Along with levetiracetam 1000 mg IV twice a day. Neurosurgery/Dr. Godfrey follows CV: Atrial fibrillation Hypertension Currently on lopressor with parameters for heart rate and blood pressure Not requiring vasopressors and/or antihypertensives. Goal keep systolic blood pressure less than 150 Resp: GI: Docusate sodium 100 mg twice a day/senna 8.6 mg twice a day for bowel regimen : BPH Maintain Prabhakar Currently on tamsulosin 0.4 mg by mouth daily and tolterodine 2 mg by mouth daily - hospital substitution for finasteride 5 mg by mouth daily Endo: Diabetes mellitus - hemoglobin A1c 6.0 DC levemir as noted hypoglycemia patient is not eating. Novolin R sliding scale insulin if need. Hypoglycemic protocol CXonsul dietary Add MVT, megace to increase appetite Running Instructor for calorie count Renal: Creatinine currently within normal limits Monitor urine output Accurate I's and O's Heme: Leukocytosis Normocytic anemia Coags within normal limit ID: Cultures 11/17 Vanc, Cefepime started 11/17 Pertinent cultures 11/11 - blood cultures 2 - no growth FEN: Hypophosphatemia MSK: Physical therapy evaluate and treat Access Left IJ CVL day #7 placed 11/12/2016 -> removed. Prophylaxis - GI - lanosprazole DVT - SCD/pharmacological prophylaxis when okay with neurosurgery Discussed with the patient,. nurse, family at bedside DC plan; Pending improvement. Needs rehab. Consult PT/OT /Miracle Parra MD Nov 26, 2016 11:51
[2016-11-26 12:41] LABS: BANDS 2 % (0-6); EOSINOPHILS 3 % (0-4); NEUTROPHIL # MANUAL DIFF 3.2 TH/MM3 (1.8-7.7); POLYS (SEG NEUTROPHILS) 38 % (16-70); SCAN/DIFF FINAL DIFF MANUAL; SMUDGE CELLS PRESENT PRESENT; WBC DIFF SAMPLE 100
[2016-11-26 12:42] LABS: PLATELET ESTIMATE SMEAR NORMAL (NORMAL); PLATELET MORPHOLOGY NORMAL (NORMAL)
[2016-11-26] MEDS ORDERED: PHARMACY ORDERED LAB ONE (12:45)
--- NOTE | 2016-11-26 13:15 | HHI.NSPN ---
(CindyBrennon MACIAS) History Chief Complaint: Unable to obtain due to patient's mental condition. (CindyBrennon MACIAS) Interval History 11/09: 80-year-old male who according to his family was going up a step into the house with his cane when he fell backwards, striking the back of his head. He was reportedly unconscious for 10-15 minutes. He then had some shaking in the extremities as he was waking up. He has been somewhat sleepy and a little confused since he woke up at the patient's family states that he is conversing reasonably well with them. He normally is fairly independent, ambulating with a cane and is usually mentally alert with only mild memory loss. Positive emesis reported. Patient has no complaint of headache or neck pain. No complaint of low back or joint pain. 11/10: nursing reports agitated overnight, currently sleeping. f/u CT Head completed, moves all four extremities. son translated - oriented to name and place only. 11/11: Notified by PARVIN Stoner, that Nursing had notified her that the patient's mental status was worse this morning and that she had ordered a stat CT brain. When seen this morning the patient is obtunded and not answering to verbal stimuli. Nursing reports that CT had called and was sending someone up to transport the patient to the scanner. She stated that the patient did receive morphine and hydrocodone during the night for pain because he was agitated. 11/12: The patient has been intubated this morning due to persistent decreased mental status. Possibly a few more episodes of seizure activity reported last evening. He is continuing on Dilantin and Keppra for seizures. 11/13: The patient still is intubated, mechanically ventilated and sedated with midazolam. He does not respond to noxious stimulation. The EEG done yesterday morning did demonstrate seizure activity. Neurology evaluated the patient yesterday and adjusted his anti-epileptic medications. An EEG was done this morning prior to the patient being seen. 11/14: The patient remains intubated. A midazolam drip is still infusing as is a fentanyl drip. A repeat Ct brain this morning demonstrated evolving contusions and haemorrhages. 11/15: The patient is intubated without any sedation. The midazolam and fentanyl infusions were discontinued yesterday. A 3% saline drip continues to infuse. He did have a slight twitching of the eyelids when his name was called but no eye opening. 11/16: This morning the patient opened his eyes to verbal stimulation. He continues to be intubated without any sedation. 11/17/16: Patient remains intubated. He had a dose of intravenous sedation last night for agitation. Remains relatively alert. Positive fever last evening. Some difficulty with hemodynamic instability last evening. 11/18: The patient is on a cooling blanket with ice packs when seen this morning. He continues to be intubated. He does look to whomever is speaking and did follow commands. 11/19: The patient is asleep but awakens on his own. He was extubated this morning and is now on a nasal cannula. He follows commands and moves all his extremities to a degree. He does tell his daughter that he is tired. The family reports earlier that the patient did ask where his and son were by name. 11/20: When seen this afternoon the patient had just been transferred to a regular med/surg floor. He appears mildly distressed and is moaning. His daughter states that he has said he has pain all over. 11/21: Notified by [facility] physician (Dr Mejia, PGY1) that patient was having increased respiratory effort. He reported that the patient's oxygen saturation was satisfactory but the chest x-ray demonstrated fluid overload. Therefore 40 mg furosemide IV was ordered as was a nebuliser treatment. When seen the patient appeared moderately distress and had just received the furosemide with the nebuliser treatment ongoing. The Charge Nurse reported that the patient was lethargic and not responding to commands. He reported that the Physical Chemist is aware that the patient is being transferred to [facility] for further care and management. The Hospitalist was present and evaluating the patient. 11/22: Patient not opening eyes or following commands. Not verbalizing. 11/23: Pt opens eyes and tracks around room. He is restless. Not following commands for staff or reportedly family. Pt not verbalizing. 11/24: This morning the patient is awake and tracks. He is noted to move the upper extremities spontaneously. He moans but there is no other verbalisation. The son did state that yesterday he was talking quite a bit. When asked the son states that he has no complaint of pain but says that he feels tired all the time. 11/25: The patient is drowsy when seen this afternoon. He does squeeze with the right hand mimicking it demonstrated, otherwise he responded to local noxious stimulation. He did attempt to verbalise a few words. 11/26: The patient is initially seen with Dr Godfrey this morning and is lethargic. His daughter reports that he will not wake up to eat breakfast. This afternoon when seen the patient remains lethargic and minimally responsive to noxious stimulation. His daughter reported that the patient was up for the whole night, not last night but the night before. (Brennon White) System Review Comments Unable to obtain due to patient's mental condition. (Brennon White) Exam Results 11/24/16 11/24/16 11/25/16 11/25/16 11/26/16 11/26/16 06:00 18:00 06:00 18:00 06:00 18:00 Intake Total 200 ml 650 ml 1180 ml Output Total 975 ml 950 ml Balance 200 ml -325 ml 1180 ml -950 ml Intake Oral 0 ml 1180 ml IV Total 200 ml 650 ml Output Urine Total 975 ml 950 ml # Bowel Movements 1 2 2 Vital Signs Date Time Temp Pulse Resp B/P (MAP) Pulse Ox O2 Delivery O2 Flow Rate FiO2 11/26/16 12:00 98.6 104 20 122/61 (81) 95 11/26/16 09:14 97 Nasal Cannula 2.00 11/26/16 08:00 98.7 111 20 119/56 (77) 98 11/26/16 05:46 98.9 110 20 118/50 (72) 95 11/26/16 00:00 98.7 79 18 142/88 (106) 94 11/25/16 23:30 94 Nasal Cannula 2.00 11/25/16 21:55 Nasal Cannula 2.00 11/25/16 21:12 Nasal Cannula 2.00 11/25/16 20:00 97.4 91 18 108/54 (72) 98 11/25/16 16:00 85 24 121/62 (81) 99 11/25/16 12:00 87 24 107/63 (78) 99 11/25/16 08:00 87 24 125/67 (86) 99 11/25/16 04:00 97.2 83 20 135/66 (89) 96 11/25/16 00:00 97.2 78 18 132/73 (92) 94 11/24/16 20:00 97.4 83 18 130/69 (89) 94 11/24/16 16:00 98.1 78 22 110/58 (75) 94 11/24/16 12:00 97.5 99 26 101/56 (71) 98 11/24/16 08:00 97.7 85 18 133/63 (86) 94 11/24/16 08:00 94 Nasal Cannula 1.00 11/24/16 04:10 97.8 85 24 127/65 (85) 91 11/24/16 01:43 95 Nasal Cannula 1.00 11/24/16 00:04 97.7 88 24 113/58 (76) 94 11/23/16 21:40 97.7 91 22 111/62 (78) 96 11/23/16 18:00 89 11/23/16 16:00 97.6 83 26 123/58 (79) 98 11/23/16 16:00 83 11/23/16 14:00 87 (Brennon White) Physical Examination GENERAL: Patient lethargic but does not appear in any distress. SKIN: Warm, dry & intact w/o any evident rashes, ulcerations or lesions. HEENT: Normocephalic. NECK: No JVD, trachea midline. CARDIOVASCULAR: S1S2 w/regular but rapid rate w/o M/G/R, radial & pedal pulses 2 + bilaterally, cap refill < 2 sec, 1+ pedal edema bilaterally. RESPIRATORY: Essentially clear bilaterally, equal excursion, nonlaboured, on NC. GASTROINTESTINAL: Abdomen soft, appears nontender, bowel sounds not appreciated. MUSCULOSKELETAL: No evident deformity or clubbing. NEUROLOGICAL: Lethargic. GCS 9 (E2 V2 M5). Patient closes eyes and turns head to avoid having pupils checked. Moans in response to noxious stimulation. Partial eye opening to central noxious stimulation. Weak movement to local noxious stimulation to LUE=LLE>RUE, none to the RLE. Patient with purposeful movement left hand to try and remove practitioner's hand to central noxious stimulation. Unable to assess sensation. (Brennon White) Lab, Micro, Other Results Laboratory Tests Test 11/23/16 20:40 11/24/16 07:39 11/24/16 16:32 11/26/16 09:15 Potassium Level 3.6 MEQ/L 3.3 MEQ/L White Blood Count 10.5 TH/MM3 Red Blood Count 3.06 MIL/MM3 Hemoglobin 9.0 GM/DL Hematocrit 27.9 % Mean Corpuscular Volume 91.2 FL Mean Corpuscular Hemoglobin 29.5 PG Mean Corpuscular Hemoglobin Concent 32.4 % Red Cell Distribution Width 18.0 % Platelet Count 299 TH/MM3 Mean Platelet Volume 7.6 FL Neutrophils (%) (Auto) 28.0 % Lymphocytes (%) (Auto) 62.0 % Monocytes (%) (Auto) 7.3 % Eosinophils (%) (Auto) 2.3 % Basophils (%) (Auto) 0.4 % Neutrophils # (Auto) 2.9 TH/MM3 Lymphocytes # (Auto) 6.5 TH/MM3 Monocytes # (Auto) 0.8 TH/MM3 Eosinophils # (Auto) 0.2 TH/MM3 Basophils # (Auto) 0.0 TH/MM3 CBC Comment AUTO DIFF Differential Total Cells Counted 100 Neutrophils % (Manual) 35 % Lymphocytes % 60 % Monocytes % 2 % Eosinophils % 3 % Neutrophils # (Manual) 3.7 TH/MM3 Differential Comment FINAL DIFF MANUAL Smudge Cells PRESENT Platelet Estimate NORMAL Platelet Morphology Comment NORMAL Basophilic Stippling FAINT Acanthocytes OCC Blood Urea Nitrogen 19 MG/DL Creatinine 0.49 MG/DL 0.53 MG/DL Random Glucose 108 MG/DL 144 MG/DL Calcium Level 7.8 MG/DL Sodium Level 148 MEQ/L Chloride Level 112 MEQ/L Carbon Dioxide Level 29.5 MEQ/L Anion Gap 7 MEQ/L Estimat Glomerular Filtration Rate 163 ML/MIN 149 ML/MIN Random Vancomycin Level 15.5 COMMENT Test 11/26/16 10:42 11/26/16 12:42 White Blood Count 7.9 TH/MM3 Red Blood Count 3.02 MIL/MM3 Hemoglobin 8.8 GM/DL Hematocrit 27.3 % Mean Corpuscular Volume 90.3 FL Mean Corpuscular Hemoglobin 29.1 PG Mean Corpuscular Hemoglobin Concent 32.3 % Red Cell Distribution Width 18.5 % Platelet Count 312 TH/MM3 Mean Platelet Volume 7.2 FL CBC Comment AUTO DIFF Differential Total Cells Counted 100 Neutrophils % (Manual) 38 % Band Neutrophils % 2 % Lymphocytes % 54 % Monocytes % 3 % Eosinophils % 3 % Neutrophils # (Manual) 3.2 TH/MM3 Differential Comment FINAL DIFF MANUAL Smudge Cells PRESENT Platelet Estimate NORMAL Platelet Morphology Comment NORMAL Blood Urea Nitrogen 18 MG/DL Creatinine 0.53 MG/DL Random Glucose 142 MG/DL Total Protein 5.4 GM/DL Albumin 1.5 GM/DL Calcium Level 7.7 MG/DL Phosphorus Level 2.5 MG/DL Magnesium Level 1.9 MG/DL Alkaline Phosphatase 140 U/L Aspartate Amino Transf (AST/SGOT) 29 U/L Alanine Aminotransferase (ALT/SGPT) 15 U/L Total Bilirubin 2.5 MG/DL Sodium Level 143 MEQ/L Potassium Level 3.2 MEQ/L Chloride Level 110 MEQ/L Carbon Dioxide Level 25.6 MEQ/L Anion Gap 7 MEQ/L Estimat Glomerular Filtration Rate 149 ML/MIN Prealbumin 6 MG/DL (Brennon White) Medical Decision Making Impression and Plan Impression: 1. Traumatic brain injury 2. Hypertension 3. Diabetes 4. Respiratory failure 5. Seizures Patient maintaining airway, less responsive today. Labs reviewed, low potassium being replaced by Hospitalist. Plan: Medical management per Hospitalist. Continue neuro checks. Continue present diabetic medications with insulin sliding scale. Non-chemical DVT prophylaxis. Ulcer prophylaxis. Appreciate Hospitalist's input and assistance. If patient remains lethargic tomorrow will obtain CT brain. (Brennon White) Attending Statement I have personally seen and examined the patient on 11/26/16. Pertinent documentation and study results have been reviewed by the undersigned. I have personally developed the treatment plan and performed medical decision making. Agree with findings, exam, and treatment plan as noted above. Patient remained somewhat lethargic today. Brief eye opening and focusing to the left but not following commands. Mild flexion up her extremities to deep pain. No attempt to verbalize. Remains with upper respiratory congestion. Cardiac exam regular without murmur. Abdomen soft Not tolerating diet well. Discussed with family. Continuing supportive care. Prognosis for meaningful recovery appears rather poor this point. (Tony Godfrey MD) Brennon White Nov 26, 2016 13:15 Tony Godfrey MD Nov 27, 2016 21:18
[2016-11-26] MEDS: VANCOMYCIN 1,500 MG/NS 500 ML IV SCH ×2 (14:08)
[2016-11-26] MEDS: TAMSULOSIN HCL 0.4 MG CAP PO SCH (21:49)
[2016-11-27] VITALS (7 sets, daily range): BP systolic 118–133; BP diastolic 56–74; PULSE 95–110; RESP 19–22; TEMP 96.4–98; O2SAT 93–97
[2016-11-27] MEDS: levETIRAcetam 1000 MG INJ 100 ML IV SCH ×3 (05:09→21:08)
[2016-11-27] MEDS: FOSPHENYTOIN INJ 100 MGPE in SODIUM CHLORIDE 0.9% INJ 50 ML IV SCH ×4 (05:09→23:50)
[2016-11-27] MEDS: INSULIN ASPART SUPPLEMENTAL SCALE SQ SCH ×4 (08:52→21:00)
[2016-11-27] MEDS: TOLTERODINE TARTRATE 2 MG CAP LA PO SCH (08:58)
[2016-11-27] MEDS: CALCIUM CARBONATE 500 MG CHEWABLE TAB CHEW SCH ×2 (08:58→21:08)
[2016-11-27] MEDS: LANSOPRAZOLE SOLUTAB 30 MG TAB NG SCH (08:58)
[2016-11-27] MEDS: MEGESTROL ACETATE SUSP 400 MG/10 ML CUP PO SCH (08:58)
[2016-11-27] MEDS: METOPROLOL TARTRATE 25 MG TAB PO SCH ×2 (08:58→21:08)
[2016-11-27] MEDS: FINASTERIDE 5 MG TAB PO SCH (08:58)
[2016-11-27] MEDS: DOCUSATE SODIUM 100 MG/10 ML UDC PO SCH ×2 (09:00→21:00)
[2016-11-27] MEDS: LACTULOSE SYRUP 20 GM/30 ML CUP PO SCH (09:00)
[2016-11-27] MEDS: POLYETHYLENE GLYCOL 17 GM PKG OG-TUBE SCH ×2 (09:00→21:00)
[2016-11-27] MEDS: SENNOSIDES SYRUP 8.8 MG/5 ML CUP NG SCH ×2 (09:00→21:00)
[2016-11-27] MEDS: POTASSIUM PHOSPHATE MONOBASIC 500 MG TAB PO SCH (09:00)
[2016-11-27] MEDS: SODIUM CHLORIDE 0.9% FLUSH 10 ML FLUSH IV FLUSH SCH ×2 (09:08→21:09)
[2016-11-27] MEDS: FUROSEMIDE 40 MG/4 ML VIAL IV PUSH SCH (09:08)
[2016-11-27] MEDS: SODIUM CHLORIDE 0.9% FLUSH 10 ML FLUSH IVF SCH (09:09)
--- NOTE | 2016-11-27 09:20 | HHI.PR ---
Subjective Remarks In bed, more awake today. Feels very tired. BS better controlled. Not eating much. Family at bedside. Moves arms more than the legs, follows some commands when family asks. Objective Vitals Vital Signs Date Time Temp Pulse Resp B/P (MAP) Pulse Ox O2 Delivery O2 Flow Rate FiO2 11/27/16 09:15 98.0 98 20 118/56 (76) 96 11/27/16 08:45 96 Nasal Cannula 2.00 11/27/16 04:00 97.4 95 20 128/60 (82) 97 11/26/16 23:45 Nasal Cannula 2.00 11/26/16 20:00 97.2 96 20 123/62 (82) 95 11/26/16 17:46 96 Nasal Cannula 2.00 11/26/16 17:17 98.6 102 22 119/57 (77) 96 11/26/16 12:00 98.6 104 20 122/61 (81) 95 I/O 11/26/16 11/26/16 11/26/16 11/27/16 11/27/16 11/27/16 07:00 15:00 23:00 07:00 15:00 23:00 Intake Total 100 ml 104 ml Output Total 950 ml 875 ml Balance -950 ml 100 ml -771 ml IV Total 100 ml 104 ml Output Urine Total 950 ml 875 ml # Bowel Movements 2 2 Result Diagram: 11/26/16 1042 11/26/16 1042 Imaging Last Impressions Head CT 11/21/16 0000 Signed Impressions: Service Date/Time: Monday, November 21, 2016 10:22 - CONCLUSION: Grossly stable brain appearance Lonnie Blanchard MD Chest X-Ray 11/21/16 0000 Signed Impressions: Service Date/Time: Monday, November 21, 2016 09:25 - CONCLUSION: 1. Continued basilar effusions and diffuse interstitial prominence suggesting congestive failure. 2. Continued consolidation at the left lung base. Anthony Burns MD Transcranial Doppler Study Complete 11/17/16 0000 Signed Impressions: Service Date/Time: Thursday, November 17, 2016 10:03 - CONCLUSION: 1. Nondiagnostic examination due to poor transcranial windows. Konstantin Dash MD Abdomen X-Ray 11/12/16 0000 Signed Impressions: Service Date/Time: Saturday, November 12, 2016 08:23 - CONCLUSION: 1. Gastric tube in good position. 2. Probable right renal stones. Narayan Coulter MD Cervical Spine CT 11/09/161950 Signed Impressions: Service Date/Time: Wednesday, November 09, 2016 20:14 - CONCLUSION: Negative trauma CT. Cj Isidro MD Objective Remarks GENERAL: 80 yo male, in bed, appears chronically ill, sick. EYES: No scleral icterus. No injection or drainage. NECK: Supple, trachea midline. No JVD or lymphadenopathy. CARDIOVASCULAR: Regular rate and rhythm without murmurs, gallops, or rubs. RESPIRATORY: Breath sounds decreased, bibasilar crackles. No accessory muscle use. GASTROINTESTINAL: Abdomen soft, non-tender, nondistended. MUSCULOSKELETAL: No cyanosis, or edema. BACK: Nontender without obvious deformity. No CVA tenderness. NEURO: Patient is more awake, Moves arms in legs. Date of Insertion: Nov 12, 2016 Line: Central Venous Catheter Side: Right Location: Internal, Jugular A/P Problem List: (1) Subdural hematoma ICD Code: I62.00 - Nontraumatic subdural hemorrhage, unspecified Status: Acute (2) Diabetes ICD Code: E11.9 - Type 2 diabetes mellitus without complications (3) Leukocytosis ICD Code: D72.829 - Elevated white blood cell count, unspecified Status: Acute (4) HTN (hypertension) ICD Code: I10 - Essential (primary) hypertension Status: Chronic Assessment and Plan Acute respiratory insufficiency secondary to altered mental status, improving Extubated 11/19 Patient was transferred to med/surg floor and on 11/21 noted more lethargic and with sob, patiemt with acute repiratory failure 2/2 fluid overload. CXR with congestion. Receive lasix 40 IV x 1 time, prabhakar placed for accurate OP , had 1800 UOP after lasix. Respiratory status improving. ABG, cbc, bmp, LA stat. Patient was transferred back to ICU for further care, Manufacturing Leader consulted. Patient is also noted more letahrgic will repeat CT head, discussed with Villa MELENDREZ from neurosurgical team 11/24/16 patient still with sob , congested, continue lasix. monitor UOP and kidney function closely. O2 support Neuro/Psych: Closed head injury - Traumatic Bilateral large intra-parenchymal hemorrhages/right temporal/parietal subdural hematoma and bifrontal contusions Nonconvulsive seizures CT brain 11/11 revealed bi frontal contusions, right temporal/parietal subdural hematoma around 8 mm in subarachnoid hemorrhage EEG 11/11 revealed mild to moderate encephalopathy. Right frontal/central generalized slowing with intermittent sharps waves Repeat EEG 11/12 revealed 2 clinical seizure activities that cessation with 2 mg Ativan IV 1. Repeat EEG today pending Currently on fosphenytoin 100 mg IV every 6 hours. A.m. level pending. Along with levetiracetam 1000 mg IV twice a day. Neurosurgery/Dr. Godfrey follows CV: Atrial fibrillation Hypertension Currently on lopressor with parameters for heart rate and blood pressure Not requiring vasopressors and/or antihypertensives. Goal keep systolic blood pressure less than 150 Resp: GI: Docusate sodium 100 mg twice a day/senna 8.6 mg twice a day for bowel regimen : BPH Maintain Prabhakar Currently on tamsulosin 0.4 mg by mouth daily and tolterodine 2 mg by mouth daily - hospital substitution for finasteride 5 mg by mouth daily Endo: Diabetes mellitus - hemoglobin A1c 6.0 DC levemir as noted hypoglycemia patient is not eating. Novolin R sliding scale insulin if need. Hypoglycemic protocol CXonsul dietary Add MVT, megace to increase appetite Solder Making Supervisor for calorie count Renal: Creatinine currently within normal limits Monitor urine output Accurate I's and O's Heme: Leukocytosis Normocytic anemia Coags within normal limit ID: Cultures 11/17 Vanc, Cefepime started 11/17 Pertinent cultures 11/11 - blood cultures 2 - no growth FEN: Hypophosphatemia MSK: Physical therapy evaluate and treat Access Left IJ CVL day #7 placed 11/12/2016 -> removed. Prophylaxis - GI - lanosprazole DVT - SCD/pharmacological prophylaxis when okay with neurosurgery Discussed with the patient,. nurse, family at bedside DC plan; Pending improvement. Needs rehab. Consult PT/OT /Miracle Parra MD Nov 27, 2016 09:20
[2016-11-27 11:20] LABS: AUTOMATED NEUTROPHIL # 1.8 TH/MM3 (1.8-7.7); BASOPHIL % 0.3 % (0.0-2.0); EOSINOPHIL # 0.1 TH/MM3 (0-0.4); EOSINOPHIL % 1.3 % (0.0-4.0); LYMPH % 70.3 % (9.0-44.0); LYMPHOCYTE # 6.5 TH/MM3 (1.0-4.8); MEAN CELL VOLUME 89.5 FL (80.0-100.0); MEAN CORPUSCULAR HEMOGLOBIN 28.9 PG (27.0-34.0); MEAN CORPUSCULAR HGB CONC 32.3 % (32.0-36.0); MONO % 8.3 % (0.0-8.0); NEUT % 19.8 % (16.0-70.0); PLATELET COUNT 377 TH/MM3 (150-450); RED BLOOD COUNT 3.24 MIL/MM3 (4.50-5.90); RED CELL DISTRIBUTION WIDTH 18.6 % (11.6-17.2); WHITE BLOOD COUNT 9.2 TH/MM3 (4.0-11.0)
[2016-11-27 11:25] LABS: HEMO FLAGS AUTO DIFF
[2016-11-27] MEDS: ARTIFICIAL TEARS OPTH SOLN 15 ML BTL EACH EYE SCH ×3 (11:48→18:00)
[2016-11-27 11:50] LABS: BICARBONATE 24.8 MEQ/L (21.0-32.0)
[2016-11-27] MEDS: VANCOMYCIN 1,500 MG/NS 500 ML IV SCH ×2 (12:20)
[2016-11-27 12:51] LABS: BANDS 2 % (0-6); NEUTROPHIL # MANUAL DIFF 2.6 TH/MM3 (1.8-7.7); POLYS (SEG NEUTROPHILS) 26 % (16-70); WBC DIFF SAMPLE 100
[2016-11-27 12:52] LABS: OVALOCYTES 1+ (NORMAL); PLATELET ESTIMATE SMEAR NORMAL (NORMAL); PLATELET MORPHOLOGY NORMAL (NORMAL); SCAN/DIFF FINAL DIFF MANUAL
[2016-11-27 12:53] LABS: SMUDGE CELLS PRESENT PRESENT
--- NOTE | 2016-11-27 12:55 | HHI.NSPN ---
(CindyBrennon MACIAS) History Chief Complaint: Unable to obtain due to patient's mental condition. (CindyBrennon MACIAS) Interval History 11/09: 80-year-old male who according to his family was going up a step into the house with his cane when he fell backwards, striking the back of his head. He was reportedly unconscious for 10-15 minutes. He then had some shaking in the extremities as he was waking up. He has been somewhat sleepy and a little confused since he woke up at the patient's family states that he is conversing reasonably well with them. He normally is fairly independent, ambulating with a cane and is usually mentally alert with only mild memory loss. Positive emesis reported. Patient has no complaint of headache or neck pain. No complaint of low back or joint pain. 11/10: nursing reports agitated overnight, currently sleeping. f/u CT Head completed, moves all four extremities. son translated - oriented to name and place only. 11/11: Notified by PARVIN Stoner, that Nursing had notified her that the patient's mental status was worse this morning and that she had ordered a stat CT brain. When seen this morning the patient is obtunded and not answering to verbal stimuli. Nursing reports that CT had called and was sending someone up to transport the patient to the scanner. She stated that the patient did receive morphine and hydrocodone during the night for pain because he was agitated. 11/12: The patient has been intubated this morning due to persistent decreased mental status. Possibly a few more episodes of seizure activity reported last evening. He is continuing on Dilantin and Keppra for seizures. 11/13: The patient still is intubated, mechanically ventilated and sedated with midazolam. He does not respond to noxious stimulation. The EEG done yesterday morning did demonstrate seizure activity. Neurology evaluated the patient yesterday and adjusted his anti-epileptic medications. An EEG was done this morning prior to the patient being seen. 11/14: The patient remains intubated. A midazolam drip is still infusing as is a fentanyl drip. A repeat Ct brain this morning demonstrated evolving contusions and haemorrhages. 11/15: The patient is intubated without any sedation. The midazolam and fentanyl infusions were discontinued yesterday. A 3% saline drip continues to infuse. He did have a slight twitching of the eyelids when his name was called but no eye opening. 11/16: This morning the patient opened his eyes to verbal stimulation. He continues to be intubated without any sedation. 11/17/16: Patient remains intubated. He had a dose of intravenous sedation last night for agitation. Remains relatively alert. Positive fever last evening. Some difficulty with hemodynamic instability last evening. 11/18: The patient is on a cooling blanket with ice packs when seen this morning. He continues to be intubated. He does look to whomever is speaking and did follow commands. 11/19: The patient is asleep but awakens on his own. He was extubated this morning and is now on a nasal cannula. He follows commands and moves all his extremities to a degree. He does tell his daughter that he is tired. The family reports earlier that the patient did ask where his and son were by name. 11/20: When seen this afternoon the patient had just been transferred to a regular med/surg floor. He appears mildly distressed and is moaning. His daughter states that he has said he has pain all over. 11/21: Notified by [facility] physician (Dr Mejia, PGY1) that patient was having increased respiratory effort. He reported that the patient's oxygen saturation was satisfactory but the chest x-ray demonstrated fluid overload. Therefore 40 mg furosemide IV was ordered as was a nebuliser treatment. When seen the patient appeared moderately distress and had just received the furosemide with the nebuliser treatment ongoing. The Charge Nurse reported that the patient was lethargic and not responding to commands. He reported that the S[employer] Fil[employer] Extruder is aware that the patient is being transferred to [facility] for further care and management. The Hospitalist was present and evaluating the patient. 11/22: Patient not opening eyes or following commands. Not verbalizing. 11/23: Pt opens eyes and tracks around room. He is restless. Not following commands for staff or reportedly family. Pt not verbalizing. 11/24: This morning the patient is awake and tracks. He is noted to move the upper extremities spontaneously. He moans but there is no other verbalisation. The son did state that yesterday he was talking quite a bit. When asked the son states that he has no complaint of pain but says that he feels tired all the time. 11/25: The patient is drowsy when seen this afternoon. He does squeeze with the right hand mimicking it demonstrated, otherwise he responded to local noxious stimulation. He did attempt to verbalise a few words. 11/26: The patient is initially seen with Dr Godfrey this morning and is lethargic. His daughter reports that he will not wake up to eat breakfast. This afternoon when seen the patient remains lethargic and minimally responsive to noxious stimulation. His daughter reported that the patient was up for the whole night, not last night but the night before. 11/27: This morning the patient remains lethargic. His daughter reports that he did briefly wake some yesterday and she was able to feed him but not today. (Brennon White) System Review Comments Unable to obtain due to patient's mental condition. (Brennon White) Exam Results 11/25/16 11/25/16 11/26/16 11/26/16 11/27/16 11/27/16 06:00 18:00 06:00 18:00 06:00 18:00 Intake Total 1180 ml 204 ml Output Total 950 ml 875 ml Balance 1180 ml -950 ml -671 ml Intake Oral 1180 ml IV Total 204 ml Output Urine Total 950 ml 875 ml # Bowel Movements 2 2 2 Vital Signs Date Time Temp Pulse Resp B/P (MAP) Pulse Ox O2 Delivery O2 Flow Rate FiO2 11/27/16 12:06 96.4 100 19 128/74 (92) 95 11/27/16 12:01 Nasal Cannula 2.00 11/27/16 09:15 98.0 98 20 118/56 (76) 96 11/27/16 08:45 96 Nasal Cannula 2.00 11/27/16 04:00 97.4 95 20 128/60 (82) 97 11/26/16 23:45 Nasal Cannula 2.00 11/26/16 20:00 97.2 96 20 123/62 (82) 95 11/26/16 17:46 96 Nasal Cannula 2.00 11/26/16 17:17 98.6 102 22 119/57 (77) 96 11/26/16 12:00 98.6 104 20 122/61 (81) 95 11/26/16 09:14 97 Nasal Cannula 2.00 11/26/16 08:00 98.7 111 20 119/56 (77) 98 11/26/16 07:00 98 Nasal Cannula 2.00 11/26/16 05:46 98.9 110 20 118/50 (72) 95 11/26/16 00:00 98.7 79 18 142/88 (106) 94 11/25/16 23:30 94 Nasal Cannula 2.00 11/25/16 21:55 Nasal Cannula 2.00 11/25/16 21:12 Nasal Cannula 2.00 11/25/16 20:00 97.4 91 18 108/54 (72) 98 11/25/16 16:00 85 24 121/62 (81) 99 11/25/16 12:00 87 24 107/63 (78) 99 11/25/16 08:00 87 24 125/67 (86) 99 11/25/16 04:00 97.2 83 20 135/66 (89) 96 11/25/16 00:00 97.2 78 18 132/73 (92) 94 11/24/16 20:00 97.4 83 18 130/69 (89) 94 11/24/16 16:00 98.1 78 22 110/58 (75) 94 (Brennon White) Physical Examination GENERAL: Patient remains lethargic, no apparent in any distress. SKIN: Warm, dry & intact w/o any evident rashes, ulcerations or lesions. HEENT: Normocephalic. NECK: No JVD, trachea midline. CARDIOVASCULAR: S1S2 w/RRR w/o M/G/R, radial & pedal pulses 2+ bilaterally, cap refill < 2 sec, 1+ pedal edema bilaterally. RESPIRATORY: Essentially clear bilaterally, equal excursion, nonlaboured, on NC. GASTROINTESTINAL: Abdomen soft, appears nontender, bowel sounds not appreciated. MUSCULOSKELETAL: No evident deformity or clubbing. NEUROLOGICAL: Lethargic. GCS 9 (E2 V2 M5). Patient resistant to left pupil being examined, right appears 3 mm and reactive. Moans in response to noxious stimulation. Partial eye opening to local noxious stimulation. Weak movement to local noxious stimulation to LUE but none to the others, does moan w/stimulation to UEs. Patient spontaneously moves left hand and right hand. Unable to assess sensation. (Brennon White) Lab, Micro, Other Results Laboratory Tests Test 11/24/16 16:32 11/26/16 09:15 11/26/16 10:42 11/26/16 12:42 Random Glucose 144 MG/DL 142 MG/DL Creatinine 0.53 MG/DL 0.53 MG/DL Estimat Glomerular Filtration Rate 149 ML/MIN 149 ML/MIN White Blood Count 7.9 TH/MM3 Red Blood Count 3.02 MIL/MM3 Hemoglobin 8.8 GM/DL Hematocrit 27.3 % Mean Corpuscular Volume 90.3 FL Mean Corpuscular Hemoglobin 29.1 PG Mean Corpuscular Hemoglobin Concent 32.3 % Red Cell Distribution Width 18.5 % Platelet Count 312 TH/MM3 Mean Platelet Volume 7.2 FL CBC Comment AUTO DIFF Differential Total Cells Counted 100 Neutrophils % (Manual) 38 % Band Neutrophils % 2 % Lymphocytes % 54 % Monocytes % 3 % Eosinophils % 3 % Neutrophils # (Manual) 3.2 TH/MM3 Differential Comment FINAL DIFF MANUAL Smudge Cells PRESENT Platelet Estimate NORMAL Platelet Morphology Comment NORMAL Blood Urea Nitrogen 18 MG/DL Total Protein 5.4 GM/DL Albumin 1.5 GM/DL Calcium Level 7.7 MG/DL Phosphorus Level 2.5 MG/DL Magnesium Level 1.9 MG/DL Alkaline Phosphatase 140 U/L Aspartate Amino Transf (AST/SGOT) 29 U/L Alanine Aminotransferase (ALT/SGPT) 15 U/L Total Bilirubin 2.5 MG/DL Sodium Level 143 MEQ/L Potassium Level 3.2 MEQ/L Chloride Level 110 MEQ/L Carbon Dioxide Level 25.6 MEQ/L Anion Gap 7 MEQ/L Prealbumin 6 MG/DL Vancomycin Level Trough 15.4 MCG/ML Test 11/27/16 10:10 White Blood Count 9.2 TH/MM3 Red Blood Count 3.24 MIL/MM3 Hemoglobin 9.4 GM/DL Hematocrit 29.0 % Mean Corpuscular Volume 89.5 FL Mean Corpuscular Hemoglobin 28.9 PG Mean Corpuscular Hemoglobin Concent 32.3 % Red Cell Distribution Width 18.6 % Platelet Count 377 TH/MM3 Mean Platelet Volume 7.2 FL Neutrophils (%) (Auto) 19.8 % Lymphocytes (%) (Auto) 70.3 % Monocytes (%) (Auto) 8.3 % Eosinophils (%) (Auto) 1.3 % Basophils (%) (Auto) 0.3 % Neutrophils # (Auto) 1.8 TH/MM3 Lymphocytes # (Auto) 6.5 TH/MM3 Monocytes # (Auto) 0.8 TH/MM3 Eosinophils # (Auto) 0.1 TH/MM3 Basophils # (Auto) 0.0 TH/MM3 CBC Comment AUTO DIFF Blood Urea Nitrogen 16 MG/DL Creatinine 0.53 MG/DL Random Glucose 137 MG/DL Calcium Level 8.1 MG/DL Phosphorus Level 2.7 MG/DL Magnesium Level 2.0 MG/DL Sodium Level 140 MEQ/L Potassium Level 3.0 MEQ/L Chloride Level 106 MEQ/L Carbon Dioxide Level 24.8 MEQ/L Anion Gap 9 MEQ/L Estimat Glomerular Filtration Rate 149 ML/MIN (Brennon White) Medical Decision Making Impression and Plan Impression: 1. Traumatic brain injury 2. Hypertension 3. Diabetes 4. Respiratory failure 5. Seizures Patient maintaining airway, still with poor neuro exam. Plan: Medical management per Hospitalist. Continue neuro checks. Continue present diabetic medications with insulin sliding scale. Non-chemical DVT prophylaxis. Ulcer prophylaxis. Appreciate Hospitalist's input and assistance. CT brain w/o contrast. (Brennon White) Attending Statement The exam, history, and the medical decision-making described in the above note were completed with the assistance of the mid-level provider. I reviewed and agree with the findings presented. I attest that I had a [id number] encounter with the patient on the same day, and personally performed and documented my assessment and findings in the medical record. On my examination today, the patient continues with upper respiratory congestion. Irregular heart rate Abdomen soft nontender Brief line opening to voice. Focuses to the left to voice. Minimal left grasp, not definitely to command. Mild withdrawal lower extremities deep pain Lesser movement right upper extremity Labs reviewed. Decreased potassium, albumin, protein. Overall poor nutritional intake. Discussed treatment plan and prognosis with the family at bedside. Plan repeat CT scan head in the a.m. (Tony Godfrey MD) Brennon White Nov 27, 2016 12:55 Tony Godfrey MD Nov 27, 2016 21:22
[2016-11-27] MEDS: CHLORHEXIDINE 0.12% (ORAL KIT) 15 ML CUP MT SCH ×2 (15:43→20:00)
[2016-11-27] MEDS: TAMSULOSIN HCL 0.4 MG CAP PO SCH (21:08)
[2016-11-27] MEDS: RESP: ALBUTEROL 2.5 MG/3 ML NEB (PRN) INH (21:36)
--- NOTE | 2016-11-27 22:58 | RADRPT ---
EXAM DATE/TIME: 11/27/2016 22:36 [facility] COMPARISON: CHEST SINGLE AP, November 21, 2016, 9:25. INDICATIONS : Congestion MEDICAL HISTORY : Cardiovascular disease. Neck cancer SURGICAL HISTORY : None. ENCOUNTER: Subsequent ACUITY: 4 - 6 days PAIN SCORE: Non-responsive. LOCATION: chest FINDINGS: Bibasilar consolidation improved, now mild. Probably a small pleural effusion on each side. No pneumo thorax. Heart size stable, thin normal limits. CONCLUSION: Decreasing consolidation and effusions of both bases. Lonnie Carroll MD on November 27, 2016 at 22:56 Board Certified Radiologist. This report was verified electronically.
[2016-11-28 01:15] VITALS: BP 124/58; PULSE 91; RESP 20; TEMP 97.4; O2SAT 94
[2016-11-28 05:44] VITALS: BP 122/62; PULSE 97; RESP 22; TEMP 97.9; O2SAT 94
[2016-11-28] MEDS: levETIRAcetam 1000 MG INJ 100 ML IV SCH ×3 (06:26→21:44)
[2016-11-28] MEDS: FOSPHENYTOIN INJ 100 MGPE in SODIUM CHLORIDE 0.9% INJ 50 ML IV SCH ×3 (06:27→18:23)
[2016-11-28] MEDS: CHLORHEXIDINE 0.12% (ORAL KIT) 15 ML CUP MT SCH ×2 (08:00→20:00)
[2016-11-28 08:23] VITALS: BP 134/62; PULSE 105; RESP 20; TEMP 97.8; O2SAT 95
--- NOTE | 2016-11-28 08:58 | RADRPT ---
EXAM DATE/TIME: 11/28/2016 08:21 [facility] COMPARISON: CT BRAIN W/O CONTRAST, November 14, 2016, 6:29. INDICATIONS : Altered mental status. RADIATION DOSE: 29.57 CTDIvol (mGy) MEDICAL HISTORY : Cardiovascular disease. Diabetes SURGICAL HISTORY : None. ENCOUNTER: Subsequent ACUITY: 3 weeks PAIN SCALE: Non-responsive LOCATION: cranial TECHNIQUE: Multiple contiguous axial images were obtained of the head. Using automated exposure control and adj ustment of the mA and/or kV according to patient size, radiation dose was kept as low as reasonably a chievable to obtain optimal diagnostic quality images. DICOM format image data is available electro nically for review and comparison. FINDINGS: CEREBRUM: Bilateral evolving intraparenchymal hemorrhages are again seen. Adjacent areas of vasogenic edema rem ains within the frontal lobes. Cerebral atrophy. No midline shift. Minimal subdural hemorrhages bilat erally. POSTERIOR FOSSA: The cerebellum and brainstem are intact. The 4th ventricle is midline. The cerebellopontine angle i s unremarkable. EXTRACRANIAL: The visualized portion of the orbits is intact. SKULL: The calvaria is intact. No evidence of skull fracture. CONCLUSION: 1. Evolving bilateral intraparenchymal hemorrhages with vasogenic edema. Decreasing acute hemorrhage. 2. No midline shift. Chay De La Cruz MD on November 28, 2016 at 8:50 Board Certified Radiologist. This report was verified electronically.
[2016-11-28] MEDS: LANSOPRAZOLE SOLUTAB 30 MG TAB NG SCH (09:19)
[2016-11-28] MEDS: CALCIUM CARBONATE 500 MG CHEWABLE TAB CHEW SCH ×2 (09:19→21:48)
[2016-11-28] MEDS: FINASTERIDE 5 MG TAB PO SCH (09:19)
[2016-11-28] MEDS: POTASSIUM PHOSPHATE MONOBASIC 500 MG TAB PO SCH (09:19)
[2016-11-28] MEDS: TOLTERODINE TARTRATE 2 MG CAP LA PO SCH (09:19)
[2016-11-28] MEDS: LACTULOSE SYRUP 20 GM/30 ML CUP PO SCH (09:20)
[2016-11-28] MEDS: MEGESTROL ACETATE SUSP 400 MG/10 ML CUP PO SCH (09:20)
[2016-11-28] MEDS: FUROSEMIDE 40 MG/4 ML VIAL IV PUSH SCH (09:20)
[2016-11-28] MEDS: DOCUSATE SODIUM 100 MG/10 ML UDC PO SCH ×2 (09:20→21:00)
[2016-11-28] MEDS: METOPROLOL TARTRATE 25 MG TAB PO SCH ×2 (09:20→21:48)
[2016-11-28] MEDS: POLYETHYLENE GLYCOL 17 GM PKG OG-TUBE SCH ×2 (09:21→21:00)
[2016-11-28] MEDS: SENNOSIDES SYRUP 8.8 MG/5 ML CUP NG SCH ×2 (09:21→21:00)
[2016-11-28] MEDS: SODIUM CHLORIDE 0.9% FLUSH 10 ML FLUSH IV FLUSH SCH ×2 (09:22→21:46)
[2016-11-28] MEDS: SODIUM CHLORIDE 0.9% FLUSH 10 ML FLUSH IVF SCH (09:22)
[2016-11-28] MEDS: ARTIFICIAL TEARS OPTH SOLN 15 ML BTL EACH EYE SCH ×3 (09:22→18:23)
[2016-11-28] MEDS: INSULIN ASPART SUPPLEMENTAL SCALE SQ SCH ×4 (09:22→21:00)
--- NOTE | 2016-11-28 11:22 | HHI.NSPN ---
(CindyBrennon MACIAS) History Chief Complaint: Unable to obtain due to patient's mental condition. (CindyBrennon MACIAS) Interval History 11/09: 80-year-old male who according to his family was going up a step into the house with his cane when he fell backwards, striking the back of his head. He was reportedly unconscious for 10-15 minutes. He then had some shaking in the extremities as he was waking up. He has been somewhat sleepy and a little confused since he woke up at the patient's family states that he is conversing reasonably well with them. He normally is fairly independent, ambulating with a cane and is usually mentally alert with only mild memory loss. Positive emesis reported. Patient has no complaint of headache or neck pain. No complaint of low back or joint pain. 11/10: nursing reports agitated overnight, currently sleeping. f/u CT Head completed, moves all four extremities. son translated - oriented to name and place only. 11/11: Notified by PARVIN Stoner, that Nursing had notified her that the patient's mental status was worse this morning and that she had ordered a stat CT brain. When seen this morning the patient is obtunded and not answering to verbal stimuli. Nursing reports that CT had called and was sending someone up to transport the patient to the scanner. She stated that the patient did receive morphine and hydrocodone during the night for pain because he was agitated. 11/12: The patient has been intubated this morning due to persistent decreased mental status. Possibly a few more episodes of seizure activity reported last evening. He is continuing on Dilantin and Keppra for seizures. 11/13: The patient still is intubated, mechanically ventilated and sedated with midazolam. He does not respond to noxious stimulation. The EEG done yesterday morning did demonstrate seizure activity. Neurology evaluated the patient yesterday and adjusted his anti-epileptic medications. An EEG was done this morning prior to the patient being seen. 11/14: The patient remains intubated. A midazolam drip is still infusing as is a fentanyl drip. A repeat Ct brain this morning demonstrated evolving contusions and haemorrhages. 11/15: The patient is intubated without any sedation. The midazolam and fentanyl infusions were discontinued yesterday. A 3% saline drip continues to infuse. He did have a slight twitching of the eyelids when his name was called but no eye opening. 11/16: This morning the patient opened his eyes to verbal stimulation. He continues to be intubated without any sedation. 11/17/16: Patient remains intubated. He had a dose of intravenous sedation last night for agitation. Remains relatively alert. Positive fever last evening. Some difficulty with hemodynamic instability last evening. 11/18: The patient is on a cooling blanket with ice packs when seen this morning. He continues to be intubated. He does look to whomever is speaking and did follow commands. 11/19: The patient is asleep but awakens on his own. He was extubated this morning and is now on a nasal cannula. He follows commands and moves all his extremities to a degree. He does tell his daughter that he is tired. The family reports earlier that the patient did ask where his and son were by name. 11/20: When seen this afternoon the patient had just been transferred to a regular med/surg floor. He appears mildly distressed and is moaning. His daughter states that he has said he has pain all over. 11/21: Notified by [facility] physician (Dr Mejia, PGY1) that patient was having increased respiratory effort. He reported that the patient's oxygen saturation was satisfactory but the chest x-ray demonstrated fluid overload. Therefore 40 mg furosemide IV was ordered as was a nebuliser treatment. When seen the patient appeared moderately distress and had just received the furosemide with the nebuliser treatment ongoing. The Charge Nurse reported that the patient was lethargic and not responding to commands. He reported that the [employer] is aware that the patient is being transferred to [facility] for further care and management. The Hospitalist was present and evaluating the patient. 11/22: Patient not opening eyes or following commands. Not verbalizing. 11/23: Pt opens eyes and tracks around room. He is restless. Not following commands for staff or reportedly family. Pt not verbalizing. 11/24: This morning the patient is awake and tracks. He is noted to move the upper extremities spontaneously. He moans but there is no other verbalisation. The son did state that yesterday he was talking quite a bit. When asked the son states that he has no complaint of pain but says that he feels tired all the time. 11/25: The patient is drowsy when seen this afternoon. He does squeeze with the right hand mimicking it demonstrated, otherwise he responded to local noxious stimulation. He did attempt to verbalise a few words. 11/26: The patient is initially seen with Dr Godfrey this morning and is lethargic. His daughter reports that he will not wake up to eat breakfast. This afternoon when seen the patient remains lethargic and minimally responsive to noxious stimulation. His daughter reported that the patient was up for the whole night, not last night but the night before. 11/27: This morning the patient remains lethargic. His daughter reports that he did briefly wake some yesterday and she was able to feed him but not today. 11/28: The patient is drowsy this morning. He does awaken to voice and looks at this practitioner. The son states that the patient didn't know him this morning. He did say the patient did squeeze with his right hand and moved it spontaneously and would grab the covers and move them. He does say that the patient did not move any of his other extremities. The patient did eat well this morning according to the son. The son did have to feed the patient. The patient had a repeat CT brain yesterday due to his continued lethargy/ drowsiness which demonstrated continued evolution of the bilateral intraparenchymal haemorrhages with the subdural haemorrhages decreasing. (Brennon White) System Review Comments Unable to obtain due to patient's mental condition. (Brennon White) Exam Results 11/26/16 11/26/16 11/27/16 11/27/16 11/28/16 11/28/16 06:00 18:00 06:00 18:00 06:00 18:00 Intake Total 204 ml 1062 ml 100 ml 100 ml Output Total 950 ml 875 ml 2800 ml 200 ml Balance -950 ml -671 ml -1738 ml -100 ml 100 ml IV Total 204 ml 1062 ml 100 ml 100 ml Output Urine Total 950 ml 875 ml 2800 ml 200 ml # Bowel Movements 2 2 1 Vital Signs Date Time Temp Pulse Resp B/P (MAP) Pulse Ox O2 Delivery O2 Flow Rate FiO2 11/28/16 09:43 95 Nasal Cannula 3.00 Humidified 11/28/16 08:23 97.8 105 20 134/62 (86) 95 11/28/16 05:44 97.9 97 22 122/62 (82) 94 11/28/16 01:15 97.4 91 20 124/58 (80) 94 11/27/16 21:32 94 Nasal Cannula 3.00 Humidified 11/27/16 20:30 97.7 96 20 120/59 (79) 93 11/27/16 18:01 96 Nasal Cannula 2.00 11/27/16 16:26 97.9 110 22 133/70 (91) 96 11/27/16 12:06 96.4 100 19 128/74 (92) 95 11/27/16 12:01 Nasal Cannula 2.00 11/27/16 09:15 98.0 98 20 118/56 (76) 96 11/27/16 08:45 96 Nasal Cannula 2.00 11/27/16 04:00 97.4 95 20 128/60 (82) 97 11/26/16 23:45 Nasal Cannula 2.00 11/26/16 20:00 97.2 96 20 123/62 (82) 95 11/26/16 17:46 96 Nasal Cannula 2.00 11/26/16 17:17 98.6 102 22 119/57 (77) 96 11/26/16 12:00 98.6 104 20 122/61 (81) 95 11/26/16 09:14 97 Nasal Cannula 2.00 11/26/16 08:00 98.7 111 20 119/56 (77) 98 11/26/16 07:00 98 Nasal Cannula 2.00 11/26/16 05:46 98.9 110 20 118/50 (72) 95 11/26/16 00:00 98.7 79 18 142/88 (106) 94 11/25/16 23:30 94 Nasal Cannula 2.00 11/25/16 21:55 Nasal Cannula 2.00 11/25/16 21:12 Nasal Cannula 2.00 11/25/16 20:00 97.4 91 18 108/54 (72) 98 11/25/16 16:00 85 24 121/62 (81) 99 11/25/16 12:00 87 24 107/63 (78) 99 (Brennon White) Physical Examination GENERAL: Patient drowsy, opens eyes to voice and looks at this practitioner, no apparent distress. SKIN: Warm, dry & intact w/o any evident rashes, ulcerations or lesions. HEENT: Normocephalic. Pupils appear to be 2 mm and sluggish. NECK: No JVD, trachea midline. CARDIOVASCULAR: S1S2 w/RRR w/o M/G/R, radial & pedal pulses 2+ bilaterally, cap refill < 2 sec, 1+ pedal edema bilaterally. RESPIRATORY: Essentially clear bilaterally, equal excursion, nonlaboured, on NC. GASTROINTESTINAL: Abdomen soft, appears nontender, positive bowel sounds. MUSCULOSKELETAL: No evident deformity or clubbing. NEUROLOGICAL: Drowsy, opens eyes to voice and looks at this practitioner. GCS 9 (E3 V2 M4). Pupils appear to be 2 mm and sluggish. Does not follow any commands. Moans in response to noxious stimulation to BUE. Very weak withdrawal response to local noxious stimulation to right hand>left hand, none to BLE. Unable to assess sensation. (Brennon White) Lab, Micro, Other Results Recent Impressions Head CT 11/28/16 0600 Signed Impressions: Service Date/Time: Monday, November 28, 2016 08:21 - CONCLUSION: 1. Evolving bilateral intraparenchymal hemorrhages with vasogenic edema. Decreasing acute hemorrhage. 2. No midline shift. Chay De La Cruz MD Chest X-Ray 11/27/16 0000 Signed Impressions: Service Date/Time: November 22:36 - CONCLUSION: Decreasing consolidation and effusions of both bases. Lonnie Carroll MD Laboratory Tests Test 11/26/16 09:15 11/26/16 10:42 11/26/16 12:42 11/27/16 10:10 Creatinine 0.53 MG/DL 0.53 MG/DL 0.53 MG/DL Estimat Glomerular Filtration Rate 149 ML/MIN 149 ML/MIN 149 ML/MIN White Blood Count 7.9 TH/MM3 9.2 TH/MM3 Red Blood Count 3.02 MIL/MM3 3.24 MIL/MM3 Hemoglobin 8.8 GM/DL 9.4 GM/DL Hematocrit 27.3 % 29.0 % Mean Corpuscular Volume 90.3 FL 89.5 FL Mean Corpuscular Hemoglobin 29.1 PG 28.9 PG Mean Corpuscular Hemoglobin Concent 32.3 % 32.3 % Red Cell Distribution Width 18.5 % 18.6 % Platelet Count 312 TH/MM3 377 TH/MM3 Mean Platelet Volume 7.2 FL 7.2 FL CBC Comment AUTO DIFF AUTO DIFF Differential Total Cells Counted 100 100 Neutrophils % (Manual) 38 % 26 % Band Neutrophils % 2 % 2 % Lymphocytes % 54 % 65 % Monocytes % 3 % 7 % Eosinophils % 3 % Neutrophils # (Manual) 3.2 TH/MM3 2.6 TH/MM3 Differential Comment FINAL DIFF MANUAL FINAL DIFF MANUAL Smudge Cells PRESENT PRESENT Platelet Estimate NORMAL NORMAL Platelet Morphology Comment NORMAL NORMAL Blood Urea Nitrogen 18 MG/DL 16 MG/DL Random Glucose 142 MG/DL 137 MG/DL Total Protein 5.4 GM/DL Albumin 1.5 GM/DL Calcium Level 7.7 MG/DL 8.1 MG/DL Phosphorus Level 2.5 MG/DL 2.7 MG/DL Magnesium Level 1.9 MG/DL 2.0 MG/DL Alkaline Phosphatase 140 U/L Aspartate Amino Transf (AST/SGOT) 29 U/L Alanine Aminotransferase (ALT/SGPT) 15 U/L Total Bilirubin 2.5 MG/DL Sodium Level 143 MEQ/L 140 MEQ/L Potassium Level 3.2 MEQ/L 3.0 MEQ/L Chloride Level 110 MEQ/L 106 MEQ/L Carbon Dioxide Level 25.6 MEQ/L 24.8 MEQ/L Anion Gap 7 MEQ/L 9 MEQ/L Prealbumin 6 MG/DL Vancomycin Level Trough 15.4 MCG/ML Neutrophils (%) (Auto) 19.8 % Lymphocytes (%) (Auto) 70.3 % Monocytes (%) (Auto) 8.3 % Eosinophils (%) (Auto) 1.3 % Basophils (%) (Auto) 0.3 % Neutrophils # (Auto) 1.8 TH/MM3 Lymphocytes # (Auto) 6.5 TH/MM3 Monocytes # (Auto) 0.8 TH/MM3 Eosinophils # (Auto) 0.1 TH/MM3 Basophils # (Auto) 0.0 TH/MM3 Ovalocytes 1+ Test 11/28/16 06:22 Creatinine 0.46 MG/DL Estimat Glomerular Filtration Rate 175 ML/MIN (Brennon White) Medical Decision Making Impression and Plan Impression: 1. Traumatic brain injury 2. Hypertension 3. Diabetes 4. Respiratory failure 5. Seizures Patient continues to maintain his airway, neuro exam essentially stable. Repeat CT brain yesterday with continued evolution of intraparenchymal haemorrhages and decrease in the subdurals. Plan: Medical management per Hospitalist. Continue neuro checks. Continue present diabetic medications with insulin sliding scale. Non-chemical DVT prophylaxis. Ulcer prophylaxis. Appreciate Hospitalist's input and assistance. (Brennon White) Attending Statement The exam, history, and the medical decision-making described in the above note were completed with the assistance of the mid-level provider. I reviewed and agree with the findings presented. I attest that I had a [id number] encounter with the patient on the same day, and personally performed and documented my assessment and findings in the medical record. On my examination today, the patient is little more alert. He focuses and follows with conjugate gaze for a reasonably long period of time. He has a mild left grasp, questionably to command. Minimal right upper extremity motor function. He does not attempt to verbalize. 11/28/2016 CT scan head images reviewed by the undersigned. There is relatively stable bilateral subdural hygroma, diffuse atrophy, mild to moderate diffuse ventriculomegaly, all likely related to atrophy. The bilateral contusions are resolving. No family in the room this evening. He is stable from a neurosurgical standpoint. No neurosurgical intervention planned Family is inquiring regarding transfer to [facility]. He is stable for discharge to rehabilitation/residential from a neurosurgery standpoint. (Tony Godfrey MD) Brennon White Nov 28, 2016 11:22 Tony Godfrey MD Nov 28, 2016 19:53
--- NOTE | 2016-11-28 11:31 | HHI.PR ---
Subjective Remarks Went for cT , was seen thereafter. Patien tis more awake and alert today. however he does fall asleep easily. Some cough, however he is too weak to cough. No wheezing. K low, however was noted eating better. Follows commands with family. BS better controlled no more hypoglycemia Objective Vitals Vital Signs Date Time Temp Pulse Resp B/P (MAP) Pulse Ox O2 Delivery O2 Flow Rate FiO2 11/28/16 09:43 95 Nasal Cannula 3.00 Humidified 11/28/16 08:23 97.8 105 20 134/62 (86) 95 11/28/16 05:44 97.9 97 22 122/62 (82) 94 11/28/16 01:15 97.4 91 20 124/58 (80) 94 11/27/16 21:32 94 Nasal Cannula 3.00 Humidified 11/27/16 20:30 97.7 96 20 120/59 (79) 93 11/27/16 18:01 96 Nasal Cannula 2.00 11/27/16 16:26 97.9 110 22 133/70 (91) 96 11/27/16 12:06 96.4 100 19 128/74 (92) 95 11/27/16 12:01 Nasal Cannula 2.00 I/O 11/27/16 11/27/16 11/27/16 11/28/16 11/28/16 11/28/16 07:00 15:00 23:00 07:00 15:00 23:00 Intake Total 104 ml 1062 ml 200 ml Output Total 875 ml 2800 ml 200 ml Balance -771 ml -2800 ml 1062 ml 0 ml IV Total 104 ml 1062 ml 200 ml Output Urine Total 875 ml 2800 ml 200 ml # Bowel Movements 2 1 Result Diagram: 11/27/16 1010 11/28/16 0622 Imaging Last Impressions Head CT 11/28/16 0600 Signed Impressions: Service Date/Time: Monday, November 28, 2016 08:21 - CONCLUSION: 1. Evolving bilateral intraparenchymal hemorrhages with vasogenic edema. Decreasing acute hemorrhage. 2. No midline shift. Chay De La Cruz MD Chest X-Ray 11/27/16 0000 Signed Impressions: Service Date/Time: November 22:36 - CONCLUSION: Decreasing consolidation and effusions of both bases. Lonnie Carroll MD Transcranial Doppler Study Complete 11/17/16 0000 Signed Impressions: Service Date/Time: Thursday, November 17, 2016 10:03 - CONCLUSION: 1. Nondiagnostic examination due to poor transcranial windows. Konstantin Dash MD Abdomen X-Ray 11/12/16 0000 Signed Impressions: Service Date/Time: Saturday, November 12, 2016 08:23 - CONCLUSION: 1. Gastric tube in good position. 2. Probable right renal stones. Narayan Coulter MD Cervical Spine CT 11/09/161950 Signed Impressions: Service Date/Time: Wednesday, November 09, 2016 20:14 - CONCLUSION: Negative trauma CT. Cj Isidro MD Objective Remarks GENERAL: 80 yo male, in bed, appears chronically ill, sick. EYES: No scleral icterus. No injection or drainage. NECK: Supple, trachea midline. No JVD or lymphadenopathy. CARDIOVASCULAR: Regular rate and rhythm without murmurs, gallops, or rubs. RESPIRATORY: Breath sounds decreased, bibasilar crackles. No accessory muscle use. GASTROINTESTINAL: Abdomen soft, non-tender, nondistended. MUSCULOSKELETAL: No cyanosis, or edema. BACK: Nontender without obvious deformity. No CVA tenderness. NEURO: Patient is more awake, Moves arms in legs. Date of Insertion: Nov 12, 2016 Line: Central Venous Catheter Side: Right Location: Internal, Jugular A/P Problem List: (1) Subdural hematoma ICD Code: I62.00 - Nontraumatic subdural hemorrhage, unspecified Status: Acute (2) Diabetes ICD Code: E11.9 - Type 2 diabetes mellitus without complications (3) Leukocytosis ICD Code: D72.829 - Elevated white blood cell count, unspecified Status: Acute (4) HTN (hypertension) ICD Code: I10 - Essential (primary) hypertension Status: Chronic Assessment and Plan Acute respiratory insufficiency secondary to altered mental status, improving Extubated 11/19 Patient was transferred to med/surg floor and on 11/21 noted more lethargic and with sob, patiemt with acute repiratory failure 2/2 fluid overload. CXR with congestion. Receive lasix 40 IV x 1 time, prabhakar placed for accurate OP , had 1800 UOP after lasix. Respiratory status improving. ABG, cbc, bmp, LA stat. Patient was transferred back to ICU for further care, Grants Manager consulted. Patient is also noted more letahrgic will repeat CT head, discussed with Villa MELENDREZ from neurosurgical team 11/24/16 patient still with sob , congested, continue lasix. monitor UOP and kidney function closely. O2 support Neuro/Psych: Closed head injury - Traumatic Bilateral large intra-parenchymal hemorrhages/right temporal/parietal subdural hematoma and bifrontal contusions Nonconvulsive seizures CT brain 11/11 revealed bi frontal contusions, right temporal/parietal subdural hematoma around 8 mm in subarachnoid hemorrhage EEG 11/11 revealed mild to moderate encephalopathy. Right frontal/central generalized slowing with intermittent sharps waves Repeat EEG 11/12 revealed 2 clinical seizure activities that cessation with 2 mg Ativan IV 1. Repeat EEG today pending Currently on fosphenytoin 100 mg IV every 6 hours. A.m. level pending. Along with levetiracetam 1000 mg IV twice a day. Neurosurgery/Dr. Godfrey follows Repeat CT 11/28/16 reviewed evolving bilat hhg with associated vasogenic edema, decreasing acute bleeding CV: Atrial fibrillation Hypertension Currently on lopressor with parameters for heart rate and blood pressure Not requiring vasopressors and/or antihypertensives. Goal keep systolic blood pressure less than 150 Resp: GI: Docusate sodium 100 mg twice a day/senna 8.6 mg twice a day for bowel regimen : BPH Maintain Prabhakar Currently on tamsulosin 0.4 mg by mouth daily and tolterodine 2 mg by mouth daily - hospital substitution for finasteride 5 mg by mouth daily Endo: Diabetes mellitus - hemoglobin A1c 6.0 DC levemir as noted hypoglycemia patient is not eating. Novolin R sliding scale insulin if need. Hypoglycemic protocol CXonsul dietary Add MVT, megace to increase appetite [employer] Associate for calorie count Renal: Creatinine currently within normal limits Monitor urine output Accurate I's and O's Heme: Leukocytosis Normocytic anemia Coags within normal limit ID: Cultures 11/17 Vanc, Cefepime started 11/17 Pertinent cultures 11/11 - blood cultures 2 - no growth FEN: Hypophosphatemia MSK: Physical therapy evaluate and treat Access Left IJ CVL day #7 placed 11/12/2016 -> removed. Prophylaxis - GI - lanosprazole DVT - SCD/pharmacological prophylaxis when okay with neurosurgery Discussed with the patient,. nurse, family at bedside DC plan: Pending improvement. Needs rehab. Consult PT/OT /Miracle Parra MD Nov 28, 2016 11:31
[2016-11-28 11:58] VITALS: BP 137/66; PULSE 103; RESP 20; TEMP 97.4; O2SAT 95
[2016-11-28] MEDS: VANCOMYCIN 1,500 MG/NS 500 ML IV SCH ×2 (12:08)
[2016-11-28 16:21] VITALS: BP 119/60; PULSE 93; RESP 20; TEMP 97.4; O2SAT 96
[2016-11-28 20:18] VITALS: BP 117/56; PULSE 91; RESP 20; TEMP 97.5
[2016-11-28] MEDS: TAMSULOSIN HCL 0.4 MG CAP PO SCH (21:48)
[2016-11-29] VITALS (7 sets, daily range): BP systolic 119–141; BP diastolic 57–73; PULSE 86–104; RESP 16–22; TEMP 97.3–98.1; O2SAT 93–99
[2016-11-29] MEDS: FOSPHENYTOIN INJ 100 MGPE in SODIUM CHLORIDE 0.9% INJ 50 ML IV SCH ×4 (00:01→17:01)
[2016-11-29] MEDS: levETIRAcetam 1000 MG INJ 100 ML IV SCH ×3 (05:47→20:33)
[2016-11-29] MEDS: CHLORHEXIDINE 0.12% (ORAL KIT) 15 ML CUP MT SCH ×2 (07:49→20:00)
[2016-11-29] MEDS: INSULIN ASPART SUPPLEMENTAL SCALE SQ SCH ×4 (07:50→20:32)
[2016-11-29] MEDS: DOCUSATE SODIUM 100 MG/10 ML UDC PO SCH ×2 (09:00→20:37)
[2016-11-29] MEDS: SENNOSIDES SYRUP 8.8 MG/5 ML CUP NG SCH ×2 (09:00→20:50)
[2016-11-29] MEDS: ARTIFICIAL TEARS OPTH SOLN 15 ML BTL EACH EYE SCH ×3 (09:00→16:48)
[2016-11-29] MEDS: SODIUM CHLORIDE 0.9% FLUSH 10 ML FLUSH IVF SCH (09:00)
[2016-11-29] MEDS: SODIUM CHLORIDE 0.9% FLUSH 10 ML FLUSH IV FLUSH SCH ×2 (09:00→20:37)
[2016-11-29] MEDS: POLYETHYLENE GLYCOL 17 GM PKG OG-TUBE SCH ×2 (09:00→20:36)
[2016-11-29] MEDS: LACTULOSE SYRUP 20 GM/30 ML CUP PO SCH (09:00)
[2016-11-29] MEDS: FUROSEMIDE 40 MG/4 ML VIAL IV PUSH SCH ×2 (09:00→10:43)
[2016-11-29] MEDS: MEGESTROL ACETATE SUSP 400 MG/10 ML CUP PO SCH (09:16)
[2016-11-29] MEDS: TOLTERODINE TARTRATE 2 MG CAP LA PO SCH (09:16)
[2016-11-29] MEDS: FINASTERIDE 5 MG TAB PO SCH (09:16)
[2016-11-29] MEDS: CALCIUM CARBONATE 500 MG CHEWABLE TAB CHEW SCH ×2 (09:16→20:37)
[2016-11-29] MEDS: LANSOPRAZOLE SOLUTAB 30 MG TAB NG SCH (09:16)
[2016-11-29] MEDS: METOPROLOL TARTRATE 25 MG TAB PO SCH ×2 (09:16→20:37)
[2016-11-29] MEDS ORDERED: POTASSIUM CHLORIDE 25 MEQ EFFERVESCENT TAB PO ONE (10:30)
--- NOTE | 2016-11-29 11:22 | HHI.PR ---
Subjective Remarks Follow-up traumatic brain injury/intraparenchymal hemorrhage/subdural hemorrhaging/acute respiratory insufficiency/metabolic encephalopathy 11/29/16-patient seen and examined, daughter by the bedside. He is responding to daughter's cues. Per daughter, patient seems to be more alert. Like patient to be transferred back to [facility] in 2-3 weeks after discharge, and she is wondering if he can make it on a special plane Objective Vitals Vital Signs Date Time Temp Pulse Resp B/P (MAP) Pulse Ox O2 Delivery O2 Flow Rate FiO2 11/29/16 09:43 97 Nasal Cannula 2.00 11/29/16 04:00 98.1 92 22 126/58 (80) 95 11/29/16 03:06 Nasal Cannula 2.00 Humidified 11/29/16 00:00 97.6 86 22 119/57 (77) 97 11/28/16 20:18 97.5 91 20 117/56 (76) 11/28/16 16:21 97.4 93 20 119/60 (79) 96 11/28/16 11:58 97.4 103 20 137/66 (89) 95 I/O 11/28/16 11/28/16 11/28/16 11/29/16 11/29/16 11/29/16 07:00 15:00 23:00 07:00 15:00 23:00 Intake Total 200 ml 951 ml 200 ml Output Total 200 ml 2500 ml 350 ml Balance 0 ml -1549 ml -150 ml Intake Oral 120 ml IV Total 200 ml 831 ml 200 ml Output Urine Total 200 ml 2500 ml 350 ml # Bowel Movements 1 Result Diagram: 11/27/16 1010 11/28/16 0622 Imaging Last Impressions Head CT 11/28/16 0600 Signed Impressions: Service Date/Time: Monday, November 28, 2016 08:21 - CONCLUSION: 1. Evolving bilateral intraparenchymal hemorrhages with vasogenic edema. Decreasing acute hemorrhage. 2. No midline shift. Chay De La Cruz MD Chest X-Ray 11/27/16 0000 Signed Impressions: Service Date/Time: November 22:36 - CONCLUSION: Decreasing consolidation and effusions of both bases. Lonnie Carroll MD Transcranial Doppler Study Complete 11/17/16 0000 Signed Impressions: Service Date/Time: Thursday, November 17, 2016 10:03 - CONCLUSION: 1. Nondiagnostic examination due to poor transcranial windows. Konstantin Dash MD Abdomen X-Ray 11/12/16 0000 Signed Impressions: Service Date/Time: Saturday, November 12, 2016 08:23 - CONCLUSION: 1. Gastric tube in good position. 2. Probable right renal stones. Narayan Coulter MD Cervical Spine CT 11/09/16 195 Signed Impressions: Service Date/Time: Wednesday, November 09, 2016 20:14 - CONCLUSION: Negative trauma CT. Cj Isidro MD Objective Remarks GENERAL: NAD , somehow lethargic but easily arousable SKIN: Warm and dry. HEAD: Normocephalic. EYES: No scleral icterus. No injection or drainage. NECK: Supple, trachea midline. No JVD or lymphadenopathy. CARDIOVASCULAR: Regular rate and rhythm without murmurs, gallops, or rubs. RESPIRATORY: Breath sounds equal bilaterally. No accessory muscle use. GASTROINTESTINAL: Abdomen soft, non-tender, nondistended. MUSCULOSKELETAL: No cyanosis, or edema. BACK: Nontender without obvious deformity. No CVA tenderness. Date of Insertion: Nov 12, 2016 Line: Central Venous Catheter Side: Right Location: Internal, Jugular A/P Problem List: (1) Subdural hematoma ICD Code: I62.00 - Nontraumatic subdural hemorrhage, unspecified Status: Acute (2) Diabetes ICD Code: E11.9 - Type 2 diabetes mellitus without complications (3) Leukocytosis ICD Code: D72.829 - Elevated white blood cell count, unspecified Status: Acute (4) HTN (hypertension) ICD Code: I10 - Essential (primary) hypertension Status: Chronic Assessment and Plan 80 y/o with Closed head injury Subdural hematoma Bilateral intracranial hemorrhaging -Repeat head CT 11/28/16 noted and review by me -Managed by neurosurgery and no indication for surgery at this time -Neuro checks Metabolic encephalopathy Improving and continue with current care Acute respiratory insufficiency secondary to altered mental status Improving Continue with DuoNeb when necessary and maintain oxygen saturation above 92% Atrial fibrillation Hypertension Continue with Lopressor Oral anticoagulation contraindicated secondary to intracranial bleed Benign prosthetic hyperplasia Continue with Flomax Noriega care Diabetes mellitus - hemoglobin A1c 6.0 Prophylaxis - GI - lanosprazole DVT - SCD/pharmacological prophylaxis when okay with neurosurgery Pontey,Chay MD Nov 29, 2016 11:22
[2016-11-29] MEDS: VANCOMYCIN 1,500 MG/NS 500 ML IV SCH ×2 (12:20)
--- NOTE | 2016-11-29 12:43 | HHI.NSPN ---
(Carol Lino) Note Status Status: Progress Note (Carol Lino) Interval History Interval History 80-year-old male who according to his family was going up a step into the house with his cane when he fell backwards, striking the back of his head. He was reportedly unconscious for 10-15 minutes. He then had some shaking in the extremities as he was waking up. He has been somewhat sleepy and a little confused since he woke up at the patient's family states that he is conversing reasonably well with them. He normally is fairly independent, ambulating with a cane and is usually mentally alert with only mild memory loss. Positive emesis reported. Patient has no complaint of headache or neck pain. No complaint of low back or joint pain. 11/10: nursing reports agitated overnight, currently sleeping. f/u CT Head completed, moves all four extremities. son translated - oriented to name and place only. 11/09: 80-year-old male who according to his family was going up a step into the house with his cane when he fell backwards, striking the back of his head. He was reportedly unconscious for 10-15 minutes. He then had some shaking in the extremities as he was waking up. He has been somewhat sleepy and a little confused since he woke up at the patient's family states that he is conversing reasonably well with them. He normally is fairly independent, ambulating with a cane and is usually mentally alert with only mild memory loss. Positive emesis reported. Patient has no complaint of headache or neck pain. No complaint of low back or joint pain. 11/10: nursing reports agitated overnight, currently sleeping. f/u CT Head completed, moves all four extremities. son translated - oriented to name and place only. 11/11: Notified by PARVIN Stoner, that Nursing had notified her that the patient's mental status was worse this morning and that she had ordered a stat CT brain. When seen this morning the patient is obtunded and not answering to verbal stimuli. Nursing reports that CT had called and was sending someone up to transport the patient to the scanner. She stated that the patient did receive morphine and hydrocodone during the night for pain because he was agitated. 11/12: The patient has been intubated this morning due to persistent decreased mental status. Possibly a few more episodes of seizure activity reported last evening. He is continuing on Dilantin and Keppra for seizures. 11/13: The patient still is intubated, mechanically ventilated and sedated with midazolam. He does not respond to noxious stimulation. The EEG done yesterday morning did demonstrate seizure activity. Neurology evaluated the patient yesterday and adjusted his anti-epileptic medications. An EEG was done this morning prior to the patient being seen. 11/14: The patient remains intubated. A midazolam drip is still infusing as is a fentanyl drip. A repeat Ct brain this morning demonstrated evolving contusions and haemorrhages. 11/15: The patient is intubated without any sedation. The midazolam and fentanyl infusions were discontinued yesterday. A 3% saline drip continues to infuse. He did have a slight twitching of the eyelids when his name was called but no eye opening. 11/16: This morning the patient opened his eyes to verbal stimulation. He continues to be intubated without any sedation. 11/17/16: Patient remains intubated. He had a dose of intravenous sedation last night for agitation. Remains relatively alert. Positive fever last evening. Some difficulty with hemodynamic instability last evening. 11/18: The patient is on a cooling blanket with ice packs when seen this morning. He continues to be intubated. He does look to whomever is speaking and did follow commands. 11/19: The patient is asleep but awakens on his own. He was extubated this morning and is now on a nasal cannula. He follows commands and moves all his extremities to a degree. He does tell his daughter that he is tired. The family reports earlier that the patient did ask where his and son were by name. 11/20: When seen this afternoon the patient had just been transferred to a regular med/surg floor. He appears mildly distressed and is moaning. His daughter states that he has said he has pain all over. 11/21: Notified by [facility] physician (Dr Mejia, PGY1) that patient was having increased respiratory effort. He reported that the patient's oxygen saturation was satisfactory but the chest x-ray demonstrated fluid overload. Therefore 40 mg furosemide IV was ordered as was a nebuliser treatment. When seen the patient appeared moderately distress and had just received the furosemide with the nebuliser treatment ongoing. The Charge Nurse reported that the patient was lethargic and not responding to commands. He reported that the Graduation Coach is aware that the patient is being transferred to [facility] for further care and management. The Hospitalist was present and evaluating the patient. 11/22: Patient not opening eyes or following commands. Not verbalizing. 11/23: Pt opens eyes and tracks around room. He is restless. Not following commands for staff or reportedly family. Pt not verbalizing. 11/24: This morning the patient is awake and tracks. He is noted to move the upper extremities spontaneously. He moans but there is no other verbalisation. The son did state that yesterday he was talking quite a bit. When asked the son states that he has no complaint of pain but says that he feels tired all the time. 11/25: The patient is drowsy when seen this afternoon. He does squeeze with the right hand mimicking it demonstrated, otherwise he responded to local noxious stimulation. He did attempt to verbalise a few words. 11/26: The patient is initially seen with Dr Godfrey this morning and is lethargic. His daughter reports that he will not wake up to eat breakfast. This afternoon when seen the patient remains lethargic and minimally responsive to noxious stimulation. His daughter reported that the patient was up for the whole night, not last night but the night before. 11/27: This morning the patient remains lethargic. His daughter reports that he did briefly wake some yesterday and she was able to feed him but not today. 11/28: The patient is drowsy this morning. He does awaken to voice and looks at this practitioner. The son states that the patient didn't know him this morning. He did say the patient did squeeze with his right hand and moved it spontaneously and would grab the covers and move them. He does say that the patient did not move any of his other extremities. The patient did eat well this morning according to the son. The son did have to feed the patient. The patient had a repeat CT brain yesterday due to his continued lethargy/ drowsiness which demonstrated continued evolution of the bilateral intraparenchymal haemorrhages with the subdural haemorrhages decreasing. 11/29: family in room, says pt doing well, she would like to try to fly him back to [place] for more medical care following completion of rehab (Carol Lino) Labs, Micro, & Vital Signs Results Date Time Temp Pulse Resp B/P (MAP) Pulse Ox O2 Delivery O2 Flow Rate FiO2 11/29/16 09:43 97 Nasal Cannula 2.00 11/29/16 08:00 97.3 101 16 141/65 (90) 98 11/29/16 04:00 98.1 92 22 126/58 (80) 95 11/29/16 03:06 Nasal Cannula 2.00 Humidified 11/29/16 00:00 97.6 86 22 119/57 (77) 97 11/28/16 20:18 97.5 91 20 117/56 (76) 11/28/16 16:21 97.4 93 20 119/60 (79) 96 Constitutional Vital Signs Date Time Temp Pulse Resp B/P (MAP) Pulse Ox O2 Delivery O2 Flow Rate FiO2 11/29/16 09:43 97 Nasal Cannula 2.00 11/29/16 08:00 97.3 101 16 141/65 (90) 98 11/29/16 04:00 98.1 92 22 126/58 (80) 95 11/29/16 03:06 Nasal Cannula 2.00 Humidified 11/29/16 00:00 97.6 86 22 119/57 (77) 97 11/28/16 20:18 97.5 91 20 117/56 (76) 11/28/16 16:21 97.4 93 20 119/60 (79) 96 (Carol Lino) Physical Exam Awake, opens eyes to voice, focuses. no acute distress. Not following commands, nonverbal. Moans to pain stimuli CN: Pupils appear to be 2 mm and sluggish to react. Facial symmetric at rest Motor: minimal response to local pain stimuli (Carol Lino) Awake, opens eyes to voice, focuses. no acute distress. Not following commands, Moans to pain stimuli CN: Pupils appear to be 2 mm and sluggish to react. Facial symmetric at rest Motor: minimal response to local pain stimuli Sensory exam. He respoinds to pain Cerebellar is not possible due to his condition (Mt Gordon MD) Medications Current Medications Current Medications Medications (Trade) Dose Ordered Sig/Gregg Route PRN Reason Start Time Stop Time Status Last Admin Dose Admin Finasteride (Proscar) 5 mg DAILY PO 11/10/16 09:00 11/29/16 09:16 Tamsulosin HCl (Flomax) 0.4 mg HS PO 11/10/16 21:00 11/28/16 21:48 Tolterodine Tartrate (Detrol La) 2 mg DAILY PO 11/10/16 09:00 11/29/16 09:16 Glucagon (Glucagon Inj) 1 mg UNSCH PRN OTHER HYPOGLYCEMIA-SEE COMMENTS 11/09/16 23:45 11/24/16 03:48 Lorazepam (Ativan Inj) 1 mg Q5M PRN IV SEIZURES 11/12/16 00:45 11/12/16 01:45 Chlorhexidine Gluconate (Peridex 0.12% Liq) 15 ml BID@08,20 MT 11/12/16 08:00 11/28/16 20:00 Midazolam HCl 100 ml @ 2 mls/hr TITRATE PRN IV SEDATION 11/12/16 07:15 11/13/16 08:49 Sodium Chloride (NS Flush) DAILY IVF 11/12/16 09:00 11/28/16 09:22 Sodium Chloride (NS Flush) UNSCH PRN IVF SEE PROTOCOL 11/12/16 08:15 Lansoprazole (Prevacid Odt) 30 mg DAILY NG 11/12/16 09:00 11/29/16 09:16 Docusate Sodium (Colace Liq) 100 mg Q12HR PO 11/12/16 09:00 11/26/16 10:46 Sennosides (Senna Liq) 8.8 mg BID NG 11/12/16 09:00 11/24/16 22:16 Sodium Chloride (NS Flush) 2 ml UNSCH PRN IV FLUSH FLUSH AFTER USING IV ACCESS 11/12/16 08:30 Sodium Chloride (NS Flush) 2 ml BID IV FLUSH 11/12/16 09:00 11/29/16 09:00 Artificial Tears (Tears Naturale Opth Soln) 1 drop TID EACH EYE 11/12/16 09:00 11/29/16 09:00 Ondansetron HCl (Zofran Inj) 4 mg Q6H PRN IV NAUSEA OR VOMITING 11/12/16 08:30 11/15/16 05:45 Albuterol Sulfate (Albuterol Neb) 2.5 mg Q2HR NEB PRN INH SOB/WHEEZING 11/12/16 08:30 11/27/16 21:36 Bisacodyl (Dulcolax Supp) 10 mg DAILY PRN RECTAL SEVERE CONSITIPATION 11/12/16 08:30 Lactulose (Lactulose Liq) 30 ml DAILY PRN PO SEVERE CONSITIPATION 11/12/16 08:30 Acetaminophen (Tylenol 650 Mg/ 20 ml Liq) 650 mg Q6H PRN NG FEVER 11/12/16 08:45 11/24/16 22:16 Levetriacetam 100 ml @ 400 mls/hr Q8HR IV 11/12/16 22:00 11/29/16 05:47 Polyethylene Glycol (Miralax) 17 gm BID OG-TUBE 11/13/16 21:00 11/24/16 22:15 Lactulose (Lactulose Liq) 30 ml DAILY PO 11/14/16 09:00 11/22/16 09:00 Glycerin (Glycerin Adult Supp) 2 gm BID PRN RECTAL CONSTIPATION - SEVERE 11/13/16 15:00 Hydralazine HCl (Apresoline Inj) 20 mg Q4H PRN IV PUSH SBP>150, DBP>90 11/14/16 02:15 11/14/16 03:07 Metoprolol Tartrate (Lopressor) 25 mg Q12HR PO 11/16/16 09:30 11/29/16 09:16 Pharmacy Profile Note 0 ml @ 0 mls/hr UNSCH OTHER 11/17/16 08:15 Fosphenytoin Sodium 100 mgpe/ Sodium Chloride 52 ml @ 208 mls/hr Q6HR IV 11/18/16 13:00 11/29/16 12:19 Terbutaline Sulfate (Brethine Inj) 1 mg UNSCH PRN SQ For Extravasation 11/20/16 16:30 Furosemide (Lasix Inj) 40 mg DAILY IV PUSH 11/22/16 11:00 11/29/16 10:43 Vancomycin HCl 1500 mg/Sodium Chloride 515 ml @ 257.5 mls/ hr Q24H IV 11/24/16 13:00 11/29/16 12:20 Insulin Aspart (NovoLOG SUPPLEMENTAL SCALE) 1 ACHS SLIDING SCALE SQ 11/24/16 17:00 11/29/16 12:19 Dextrose (D50w (Syr) Inj) 50 ml UNSCH PRN IV HYPOGLYCEMIA-SEE COMMENTS 11/25/16 09:30 11/25/16 09:46 Megestrol Acetate (Megace Liq) 400 mg DAILY PO 11/26/16 09:00 11/29/16 09:16 Calcium Carbonate (Tums Chew) 500 mg Q12HR CHEW 11/26/16 09:00 12/06/16 08:59 11/29/16 09:16 Miscellaneous Information SPECIFIC LAB TO BE DRAWN:VANCOMYCIN TROUGH DATE TO... ONCE ONCE .XX 11/30/16 12:45 11/30/16 12:46 (Carol Lino) Medical Decision Making MDM Remarks 80 y/o male 1. Traumatic brain injury following fall, Repeat CT brain with continued evolution of intraparenchymal hemorrhages and decrease in the subdural 2. Hypertension 3. Diabetes 4. Seizures (Carol Lino) Plan Plan Remarks neuro stable cont current care and treatment start dc planning to SNF/rehab - case mgt consulted cont medical mgt dw family (Carol Lino) Attending Statement Continue neuro checks. Pulmonary.. Continue aggressive pulmonary toilette, nasotracheal suction, and breathing treatments with nebulizers. Nutrition. NPO Renal. monitor closely urine output, BUN and creatinine Endocrine. Monitor serial Acu checks and SSI as needed in detail ID monitor for signs of infection Protonix for stress ulcer prophylaxis Sterling hose and SCD's for DVT prophylaxis The exam, history, and the medical decision-making described in the above note were completed with the assistance of the mid-level provider. I reviewed and agree with the findings presented. I attest that I had a [id number] encounter with the patient on the same day, and personally performed and documented my assessment and findings in the medical record. (Mt Gordon MD) Carol Lino Nov 29, 2016 12:43 Mt Gordon MD Nov 29, 2016 22:37
[2016-11-29] MEDS: TAMSULOSIN HCL 0.4 MG CAP PO SCH (20:37)
[2016-11-29] MEDS: RESP: ALBUTEROL 2.5 MG/3 ML NEB (PRN) INH (21:19)
[2016-11-30] VITALS: BP_SYST 114; BP_SYST 155; BP_DIAS 54; BP_DIAS 69; PULSE 87; RESP 18; TEMP 97.4; O2SAT 93; O2SAT 96
[2016-11-30] MEDS: FOSPHENYTOIN INJ 100 MGPE in SODIUM CHLORIDE 0.9% INJ 50 ML IV SCH ×4 (00:56→17:18)
[2016-11-30 04:00] VITALS: BP 128/60; PULSE 89; RESP 18; TEMP 98.2; O2SAT 95
[2016-11-30] MEDS: levETIRAcetam 1000 MG INJ 100 ML IV SCH ×2 (05:35→14:00)
[2016-11-30] MEDS: INSULIN ASPART SUPPLEMENTAL SCALE SQ SCH ×4 (07:58→21:25)
[2016-11-30] MEDS: CHLORHEXIDINE 0.12% (ORAL KIT) 15 ML CUP MT SCH ×2 (07:58→20:00)
[2016-11-30] MEDS: DOCUSATE SODIUM 100 MG/10 ML UDC PO SCH ×2 (07:59→21:22)
[2016-11-30] MEDS: POLYETHYLENE GLYCOL 17 GM PKG OG-TUBE SCH ×2 (07:59→21:22)
[2016-11-30] MEDS: SENNOSIDES SYRUP 8.8 MG/5 ML CUP NG SCH ×2 (07:59→21:22)
[2016-11-30] MEDS: LACTULOSE SYRUP 20 GM/30 ML CUP PO SCH (07:59)
[2016-11-30] MEDS: ARTIFICIAL TEARS OPTH SOLN 15 ML BTL EACH EYE SCH ×3 (07:59→17:17)
[2016-11-30 08:00] VITALS: BP 142/67; PULSE 66; RESP 20; TEMP 98.2; O2SAT 96
[2016-11-30] MEDS: SODIUM CHLORIDE 0.9% FLUSH 10 ML FLUSH IV FLUSH SCH ×2 (09:00→21:23)
[2016-11-30] MEDS: SODIUM CHLORIDE 0.9% FLUSH 10 ML FLUSH IVF SCH (09:00)
[2016-11-30] MEDS: FUROSEMIDE 40 MG/4 ML VIAL IV PUSH SCH (09:01)
[2016-11-30] MEDS: LANSOPRAZOLE SOLUTAB 30 MG TAB NG SCH (09:01)
[2016-11-30] MEDS: FINASTERIDE 5 MG TAB PO SCH (09:01)
[2016-11-30] MEDS: MEGESTROL ACETATE SUSP 400 MG/10 ML CUP PO SCH (09:01)
[2016-11-30] MEDS: METOPROLOL TARTRATE 25 MG TAB PO SCH ×2 (09:01→21:24)
[2016-11-30] MEDS: CALCIUM CARBONATE 500 MG CHEWABLE TAB CHEW SCH ×2 (09:01→21:21)
[2016-11-30] MEDS: TOLTERODINE TARTRATE 2 MG CAP LA PO SCH (09:01)
--- NOTE | 2016-11-30 10:08 | HHI.PR ---
Subjective Remarks Follow-up traumatic brain injury/intraparenchymal hemorrhage/subdural hemorrhaging/acute respiratory insufficiency/metabolic encephalopathy 11/29/16-patient seen and examined, daughter by the bedside. He is responding to daughter's cues. Per daughter, patient seems to be more alert. Like patient to be transferred back to [facility] in 2-3 weeks after discharge, and she is wondering if he can make it on a special plane 11/30/16-patient seen and examined, patient much more alert today. Appears to be choking on his food. Son By the Bedside Objective Vitals Vital Signs Date Time Temp Pulse Resp B/P (MAP) Pulse Ox O2 Delivery O2 Flow Rate FiO2 11/30/16 08:00 98.2 66 20 142/67 (92) 96 11/30/16 07:31 96 Nasal Cannula 2.00 Humidified 11/30/16 04:00 98.2 89 18 128/60 (82) 95 11/30/16 00:00 97.4 87 18 114/54 (74) 96 11/30/16 00:00 97 Nasal Cannula 2.00 11/29/16 21:21 99 Nasal Cannula 2.00 11/29/16 20:00 97.4 92 18 129/73 (91) 96 11/29/16 16:00 97.6 94 18 133/65 (87) 94 11/29/16 12:00 97.8 104 16 135/72 (93) 93 I/O 11/29/16 11/29/16 11/29/16 11/30/16 11/30/16 11/30/16 07:00 15:00 23:00 07:00 15:00 23:00 Intake Total 200 ml 200 ml 100 ml 52 ml Output Total 350 ml 1725 ml 700 ml 325 ml Balance -150 ml -1525 ml -600 ml -273 ml Intake Oral 200 ml IV Total 200 ml 100 ml 52 ml Output Urine Total 350 ml 1725 ml 700 ml 325 ml # Bowel Movements 1 1 1 Result Diagram: 11/27/16 1010 11/28/16 0622 Objective Remarks GENERAL: NAD , somehow lethargic but easily arousable SKIN: Warm and dry. HEAD: Normocephalic. EYES: No scleral icterus. No injection or drainage. NECK: Supple, trachea midline. No JVD or lymphadenopathy. CARDIOVASCULAR: Regular rate and rhythm without murmurs, gallops, or rubs. RESPIRATORY: Breath sounds equal bilaterally. No accessory muscle use. GASTROINTESTINAL: Abdomen soft, non-tender, nondistended. MUSCULOSKELETAL: No cyanosis, or edema. BACK: Nontender without obvious deformity. No CVA tenderness. Date of Insertion: Nov 12, 2016 Line: Central Venous Catheter Side: Right Location: Internal, Jugular A/P Problem List: (1) Subdural hematoma ICD Code: I62.00 - Nontraumatic subdural hemorrhage, unspecified Status: Acute (2) Diabetes ICD Code: E11.9 - Type 2 diabetes mellitus without complications (3) Leukocytosis ICD Code: D72.829 - Elevated white blood cell count, unspecified Status: Acute (4) HTN (hypertension) ICD Code: I10 - Essential (primary) hypertension Status: Chronic (5) Dysphagia ICD Code: R13.10 - Dysphagia, unspecified Assessment and Plan 80 y/o with Closed head injury Subdural hematoma Bilateral intracranial hemorrhaging -Repeat head CT 11/28/16 noted and review by me -Managed by neurosurgery and no indication for surgery at this time -Neuro checks Metabolic encephalopathy Improving and continue with current care Acute respiratory insufficiency secondary to altered mental status Improving Continue with DuoNeb when necessary and maintain oxygen saturation above 92% Atrial fibrillation Hypertension Continue with Lopressor Oral anticoagulation contraindicated secondary to intracranial bleed Benign prosthetic hyperplasia Continue with Flomax Noriega care Diabetes mellitus - hemoglobin A1c 6.0 Dysphagia r/o Check modified barium swallow today 11/30/16 Prophylaxis - GI - lanosprazole DVT - SCD/pharmacological prophylaxis when okay with neurosurgery Chay Veliz MD Nov 30, 2016 10:08
--- NOTE | 2016-11-30 10:33 | HHI.NSPN ---
(Carol Lino) Note Status Status: Progress Note (Carol Lino) Interval History Interval History 80-year-old male who according to his family was going up a step into the house with his cane when he fell backwards, striking the back of his head. He was reportedly unconscious for 10-15 minutes. He then had some shaking in the extremities as he was waking up. He has been somewhat sleepy and a little confused since he woke up at the patient's family states that he is conversing reasonably well with them. He normally is fairly independent, ambulating with a cane and is usually mentally alert with only mild memory loss. Positive emesis reported. Patient has no complaint of headache or neck pain. No complaint of low back or joint pain. 11/10: nursing reports agitated overnight, currently sleeping. f/u CT Head completed, moves all four extremities. son translated - oriented to name and place only. 11/09: 80-year-old male who according to his family was going up a step into the house with his cane when he fell backwards, striking the back of his head. He was reportedly unconscious for 10-15 minutes. He then had some shaking in the extremities as he was waking up. He has been somewhat sleepy and a little confused since he woke up at the patient's family states that he is conversing reasonably well with them. He normally is fairly independent, ambulating with a cane and is usually mentally alert with only mild memory loss. Positive emesis reported. Patient has no complaint of headache or neck pain. No complaint of low back or joint pain. 11/10: nursing reports agitated overnight, currently sleeping. f/u CT Head completed, moves all four extremities. son translated - oriented to name and place only. 11/11: Notified by PARVIN Stoner, that Nursing had notified her that the patient's mental status was worse this morning and that she had ordered a stat CT brain. When seen this morning the patient is obtunded and not answering to verbal stimuli. Nursing reports that CT had called and was sending someone up to transport the patient to the scanner. She stated that the patient did receive morphine and hydrocodone during the night for pain because he was agitated. 11/12: The patient has been intubated this morning due to persistent decreased mental status. Possibly a few more episodes of seizure activity reported last evening. He is continuing on Dilantin and Keppra for seizures. 11/13: The patient still is intubated, mechanically ventilated and sedated with midazolam. He does not respond to noxious stimulation. The EEG done yesterday morning did demonstrate seizure activity. Neurology evaluated the patient yesterday and adjusted his anti-epileptic medications. An EEG was done this morning prior to the patient being seen. 11/14: The patient remains intubated. A midazolam drip is still infusing as is a fentanyl drip. A repeat Ct brain this morning demonstrated evolving contusions and haemorrhages. 11/15: The patient is intubated without any sedation. The midazolam and fentanyl infusions were discontinued yesterday. A 3% saline drip continues to infuse. He did have a slight twitching of the eyelids when his name was called but no eye opening. 11/16: This morning the patient opened his eyes to verbal stimulation. He continues to be intubated without any sedation. 11/17/16: Patient remains intubated. He had a dose of intravenous sedation last night for agitation. Remains relatively alert. Positive fever last evening. Some difficulty with hemodynamic instability last evening. 11/18: The patient is on a cooling blanket with ice packs when seen this morning. He continues to be intubated. He does look to whomever is speaking and did follow commands. 11/19: The patient is asleep but awakens on his own. He was extubated this morning and is now on a nasal cannula. He follows commands and moves all his extremities to a degree. He does tell his daughter that he is tired. The family reports earlier that the patient did ask where his and son were by name. 11/20: When seen this afternoon the patient had just been transferred to a regular med/surg floor. He appears mildly distressed and is moaning. His daughter states that he has said he has pain all over. 11/21: Notified by [facility] physician (Dr Mejia, PGY1) that patient was having increased respiratory effort. He reported that the patient's oxygen saturation was satisfactory but the chest x-ray demonstrated fluid overload. Therefore 40 mg furosemide IV was ordered as was a nebuliser treatment. When seen the patient appeared moderately distress and had just received the furosemide with the nebuliser treatment ongoing. The Charge Nurse reported that the patient was lethargic and not responding to commands. He reported that the Tube Lancer is aware that the patient is being transferred to [facility] for further care and management. The Hospitalist was present and evaluating the patient. 11/22: Patient not opening eyes or following commands. Not verbalizing. 11/23: Pt opens eyes and tracks around room. He is restless. Not following commands for staff or reportedly family. Pt not verbalizing. 11/24: This morning the patient is awake and tracks. He is noted to move the upper extremities spontaneously. He moans but there is no other verbalisation. The son did state that yesterday he was talking quite a bit. When asked the son states that he has no complaint of pain but says that he feels tired all the time. 11/25: The patient is drowsy when seen this afternoon. He does squeeze with the right hand mimicking it demonstrated, otherwise he responded to local noxious stimulation. He did attempt to verbalise a few words. 11/26: The patient is initially seen with Dr Godfrey this morning and is lethargic. His daughter reports that he will not wake up to eat breakfast. This afternoon when seen the patient remains lethargic and minimally responsive to noxious stimulation. His daughter reported that the patient was up for the whole night, not last night but the night before. 11/27: This morning the patient remains lethargic. His daughter reports that he did briefly wake some yesterday and she was able to feed him but not today. 11/28: The patient is drowsy this morning. He does awaken to voice and looks at this practitioner. The son states that the patient didn't know him this morning. He did say the patient did squeeze with his right hand and moved it spontaneously and would grab the covers and move them. He does say that the patient did not move any of his other extremities. The patient did eat well this morning according to the son. The son did have to feed the patient. The patient had a repeat CT brain yesterday due to his continued lethargy/ drowsiness which demonstrated continued evolution of the bilateral intraparenchymal haemorrhages with the subdural haemorrhages decreasing. 11/29: family in room, says pt doing well, she would like to try to fly him back to [place] for more medical care following completion of rehab 11/30: appears more awake today, son would like to try to have patient brought back to [place] following discharge. (Carol Lino) Labs, Micro, & Vital Signs Results Date Time Temp Pulse Resp B/P (MAP) Pulse Ox O2 Delivery O2 Flow Rate FiO2 11/30/16 08:00 98.2 66 20 142/67 (92) 96 11/30/16 07:31 96 Nasal Cannula 2.00 Humidified 11/30/16 04:00 98.2 89 18 128/60 (82) 95 11/30/16 00:00 97.4 87 18 114/54 (74) 96 11/30/16 00:00 97 Nasal Cannula 2.00 11/29/16 21:21 99 Nasal Cannula 2.00 11/29/16 20:00 97.4 92 18 129/73 (91) 96 11/29/16 16:00 97.6 94 18 133/65 (87) 94 11/29/16 12:00 97.8 104 16 135/72 (93) 93 Constitutional Vital Signs Date Time Temp Pulse Resp B/P (MAP) Pulse Ox O2 Delivery O2 Flow Rate FiO2 11/30/16 08:00 98.2 66 20 142/67 (92) 96 11/30/16 07:31 96 Nasal Cannula 2.00 Humidified 11/30/16 04:00 98.2 89 18 128/60 (82) 95 11/30/16 00:00 97.4 87 18 114/54 (74) 96 11/30/16 00:00 97 Nasal Cannula 2.00 11/29/16 21:21 99 Nasal Cannula 2.00 11/29/16 20:00 97.4 92 18 129/73 (91) 96 11/29/16 16:00 97.6 94 18 133/65 (87) 94 11/29/16 12:00 97.8 104 16 135/72 (93) 93 (Carol Lino) Review of Systems ROS Limitations: Clinical Condition (Carol Lino) Physical Exam Appearing more awake and alert today. Mumbling. Looks around the room. Motor: Moving right upper extremity purposefully. intermittent left upper and b/ l LE movements CN: Pupils 3-4 mm and sluggish to react. Facial symmetric at rest Neck: soft, supple Cerebellar: cannot assess due to clinical condition (Carol Lino) Awake, opens eyes to voice, focuses. no acute distress. Not following commands, Moans to pain stimuli CN: Pupils appear to be 2 mm and sluggish to react. Facial symmetric at rest Motor: minimal response to local pain stimuli Sensory exam. He respoinds to pain Cerebellar is not possible due to his condition (Mt Gordon MD) Medications Current Medications Current Medications Medications (Trade) Dose Ordered Sig/Gregg Route PRN Reason Start Time Stop Time Status Last Admin Dose Admin Finasteride (Proscar) 5 mg DAILY PO 11/10/16 09:00 11/30/16 09:01 Tamsulosin HCl (Flomax) 0.4 mg HS PO 11/10/16 21:00 11/29/16 20:37 Tolterodine Tartrate (Detrol La) 2 mg DAILY PO 11/10/16 09:00 11/30/16 09:01 Glucagon (Glucagon Inj) 1 mg UNSCH PRN OTHER HYPOGLYCEMIA-SEE COMMENTS 11/09/16 23:45 11/24/16 03:48 Lorazepam (Ativan Inj) 1 mg Q5M PRN IV SEIZURES 11/12/16 00:45 11/12/16 01:45 Chlorhexidine Gluconate (Peridex 0.12% Liq) 15 ml BID@08,20 MT 11/12/16 08:00 11/28/16 20:00 Midazolam HCl 100 ml @ 2 mls/hr TITRATE PRN IV SEDATION 11/12/16 07:15 11/13/16 08:49 Sodium Chloride (NS Flush) DAILY IVF 11/12/16 09:00 11/28/16 09:22 Sodium Chloride (NS Flush) UNSCH PRN IVF SEE PROTOCOL 11/12/16 08:15 Lansoprazole (Prevacid Odt) 30 mg DAILY NG 11/12/16 09:00 11/30/16 09:01 Docusate Sodium (Colace Liq) 100 mg Q12HR PO 11/12/16 09:00 11/29/16 20:37 Sennosides (Senna Liq) 8.8 mg BID NG 11/12/16 09:00 11/24/16 22:16 Sodium Chloride (NS Flush) 2 ml UNSCH PRN IV FLUSH FLUSH AFTER USING IV ACCESS 11/12/16 08:30 Sodium Chloride (NS Flush) 2 ml BID IV FLUSH 11/12/16 09:00 11/30/16 09:00 Artificial Tears (Tears Naturale Opth Soln) 1 drop TID EACH EYE 11/12/16 09:00 11/29/16 09:00 Ondansetron HCl (Zofran Inj) 4 mg Q6H PRN IV NAUSEA OR VOMITING 11/12/16 08:30 11/15/16 05:45 Albuterol Sulfate (Albuterol Neb) 2.5 mg Q2HR NEB PRN INH SOB/WHEEZING 11/12/16 08:30 11/29/16 21:19 Bisacodyl (Dulcolax Supp) 10 mg DAILY PRN RECTAL SEVERE CONSITIPATION 11/12/16 08:30 Lactulose (Lactulose Liq) 30 ml DAILY PRN PO SEVERE CONSITIPATION 11/12/16 08:30 Acetaminophen (Tylenol 650 Mg/ 20 ml Liq) 650 mg Q6H PRN NG FEVER 11/12/16 08:45 11/24/16 22:16 Levetriacetam 100 ml @ 400 mls/hr Q8HR IV 11/12/16 22:00 11/30/16 05:35 Polyethylene Glycol (Miralax) 17 gm BID OG-TUBE 11/13/16 21:00 11/29/16 20:36 Lactulose (Lactulose Liq) 30 ml DAILY PO 11/14/16 09:00 11/22/16 09:00 Glycerin (Glycerin Adult Supp) 2 gm BID PRN RECTAL CONSTIPATION - SEVERE 11/13/16 15:00 Hydralazine HCl (Apresoline Inj) 20 mg Q4H PRN IV PUSH SBP>150, DBP>90 11/14/16 02:15 11/14/16 03:07 Metoprolol Tartrate (Lopressor) 25 mg Q12HR PO 11/16/16 09:30 11/30/16 09:01 Pharmacy Profile Note 0 ml @ 0 mls/hr UNSCH OTHER 11/17/16 08:15 Fosphenytoin Sodium 100 mgpe/ Sodium Chloride 52 ml @ 208 mls/hr Q6HR IV 11/18/16 13:00 11/30/16 06:18 Terbutaline Sulfate (Brethine Inj) 1 mg UNSCH PRN SQ For Extravasation 11/20/16 16:30 Furosemide (Lasix Inj) 40 mg DAILY IV PUSH 11/22/16 11:00 11/30/16 09:01 Vancomycin HCl 1500 mg/Sodium Chloride 515 ml @ 257.5 mls/ hr Q24H IV 11/24/16 13:00 11/29/16 12:20 Insulin Aspart (NovoLOG SUPPLEMENTAL SCALE) 1 ACHS SLIDING SCALE SQ 11/24/16 17:00 11/29/16 20:32 Dextrose (D50w (Syr) Inj) 50 ml UNSCH PRN IV HYPOGLYCEMIA-SEE COMMENTS 11/25/16 09:30 11/25/16 09:46 Megestrol Acetate (Megace Liq) 400 mg DAILY PO 11/26/16 09:00 11/30/16 09:01 Calcium Carbonate (Tums Chew) 500 mg Q12HR CHEW 11/26/16 09:00 12/06/16 08:59 11/30/16 09:01 Miscellaneous Information SPECIFIC LAB TO BE DRAWN:VANCOMYCIN TROUGH DATE TO... ONCE ONCE .XX 11/30/16 12:45 11/30/16 12:46 (Carol Lino) Current Medications Current Medications Ondansetron HCl (Zofran Inj) 4 mg ONCE ONCE IVP Last administered on 11/09/16 19:57; Start 11/09/16 at 20:00; Stop 11/09/16 at 20:01; Status DC Sodium Chloride (NS Flush) 2 ml UNSCH PRN IVF FLUSH AFTER USING IV ACCESS; Start 11/09/16 at 20:00; Stop 11/09/16 at 22:09; Status DC Sodium Chloride 250 ml @ 15 mls/hr ONCE ONCE IV Last administered on 23:09; Start 11/09/16 at 21:00; Stop 11/10/16 at 13:39; Status DC Sodium Chloride (NS Flush) 2 ml BID IV FLUSH Last administered on 11/11/16 09: 00; Start 11/10/16 at 09:00; Stop 11/12/16 at 08:15; Status DC Sodium Chloride (NS Flush) 2 ml UNSCH PRN IVF FLUSH AFTER USING IV ACCESS; Start 11/09/16 at 22:15; Stop 11/12/16 at 08:15; Status DC Nicardipine HCl 25 mg/Sodium Chloride 260 ml @ 52 mls/hr TITRATE PRN IV Blood pressure management Last administered on 11/09/16 22:25; Start 11/09/16 at 22:15 ; Stop 11/09/16 at 23:53; Status DC Metoclopramide HCl (Reglan Inj) 10 mg ONCE ONCE IV PUSH Last administered on 22:36; Start 11/09/16 at 22:30; Stop 11/09/16 at 22:31; Status DC Morphine Sulfate (Morphine Inj) 3 mg ONCE ONCE IV PUSH Last administered on 23:01; Start 11/09/16 at 23:00; Stop 11/09/16 at 23:01; Status DC Finasteride (Proscar) 5 mg DAILY PO Last administered on 11/30/16 09:01; Start 11/10/16 at 09:00 Glimepiride (Amaryl) 1 mg DAILY PO Last administered on 11/10/16 10:23; Start 11/10/16 at 09:00; Stop 11/11/16 at 13:35; Status DC Tamsulosin HCl (Flomax) 0.4 mg HS PO Last administered on 11/29/16 20:37; Start 11/10/16 at 21:00 Bisoprolol Fumarate (Zebeta) 5 mg DAILY PO Last administered on 11/16/16 08:35 ; Start 11/10/16 at 09:00; Stop 11/16/16 at 09:35; Status DC Tolterodine Tartrate (Detrol La) 2 mg DAILY PO Last administered on 11/30/16 09:01; Start 11/10/16 at 09:00 Nicardipine HCl 25 mg/Sodium Chloride 260 ml @ 52 mls/hr TITRATE PRN IV SYS BP GREATER THAN 150 MMHG; Start 11/09/16 at 23:45; Stop 11/21/16 at 14:08; Status DC Docusate Sodium (Colace) 100 mg BID PO Last administered on 11/10/16 21:26; Start 11/10/16 at 09:00; Stop 11/12/16 at 08:21; Status DC Pantoprazole Sodium (Protonix) 40 mg DAILY PO Last administered on 11/10/16 10: 13; Start 11/10/16 at 09:00; Stop 11/11/16 at 13:35; Status DC Ondansetron HCl (Zofran Inj) 4 mg Q6H PRN IV NAUSEA OR VOMITING; Start 11/09/16 at 23:45; Stop 11/12/16 at 08:55; Status DC Potassium Chloride/Sodium Chloride 1,000 ml @ 84 mls/hr [id number] IV Last administered on 11/11/16 12:34; Start 11/09/16 at 23:45; Stop 11/11/16 at 13:35; Status DC Dextrose (D50w (Vial) Inj) 50 ml UNSCH PRN IV HYPOGLYCEMIA-SEE COMMENTS Last administered on 11/24/16 04:19; Start 11/09/16 at 23:45; Stop 11/25/16 at 09:27 ; Status DC Glucagon (Glucagon Inj) 1 mg UNSCH PRN OTHER HYPOGLYCEMIA-SEE COMMENTS Last administered on 11/24/16 03:48; Start 11/09/16 at 23:45 Insulin Human Regular (NovoLIN R SUPPLEMENTAL SCALE) 1 ACHS SLIDING SCALE SQ Last administered on 11/10/16 11:00; Start 11/10/16 at 07:00; Stop 11/12/16 at 08: 21; Status DC Levofloxacin/ Dextrose 150 ml @ 100 mls/hr Q24H IV Last administered on 01:01; Start 11/10/16 at 01:00; Stop 11/12/16 at 08:21; Status DC Acetaminophen (Tylenol) 650 mg Q4H PRN PO FEVER; Start 11/10/16 at 01:45; Stop 11/12/16 at 08:21; Status DC Magnesium Sulfate/ Dextrose 100 ml @ 100 mls/hr ONCE ONCE IV Last administered on 11/10/16 02:44; Start 11/10/16 at 01:45; Stop 11/10/16 at 02:44; Status DC Acetaminophen/ Hydrocodone Bitart ([place] 10-325 Mg) 1 tab Q4H PO Last administered on 11/10/16 18:19; Start 11/10/16 at 17:00; Stop 11/12/16 at 08:21; Status DC Acetaminophen/ Hydrocodone Bitart ([place] 10-325 Mg) 1 tab Q4H PRN PO PAIN 4-10 ; Start 11/10/16 at 17:00; Stop 11/12/16 at 08:21; Status DC Morphine Sulfate (Morphine Inj) 2 mg Q4H PRN IV PUSH BREAKTHROUGH PAIN Last administered on 11/10/16 18:18; Start 11/10/16 at 17:15; Stop 11/12/16 at 08:26; Status DC Albuterol/ Ipratropium (Duoneb Neb) 1 ampule Q6HR WHILE AWAKE NEB PRN NEB WHEEZING; Start 11/11/16 at 07:45; Stop 11/11/16 at 08:10; Status DC Albuterol/ Ipratropium (Duoneb Neb) 1 ampule Q2HR NEB PRN NEB SOB/WHEEZING Last administered on 11/12/16 02:10; Start 11/11/16 at 09:00; Stop 11/12/16 at 08: 21; Status DC Levetriacetam 100 ml @ 400 mls/hr BOLUS ONCE IV Last administered on 12:33; Start 11/11/16 at 12:30; Stop 11/11/16 at 12:44; Status DC Levetriacetam 100 ml @ 400 mls/hr Q12HR IV Last administered on 11/12/16 09:30 ; Start 11/11/16 at 21:00; Stop 11/12/16 at 17:07; Status DC Sodium Chloride 188 meq/Sodium Chloride 1,047 ml @ 40 mls/hr Q24H IV Last administered on 11/11/16 15:00; Start 11/11/16 at 15:00; Stop 11/12/16 at 08:21; Status DC Acetaminophen (Ofirmev 1000 Mg/ 100 ml Inj) 1,000 mg ONCE ONCE IV Last administered on 11/11/16 14:54; Start 11/11/16 at 14:30; Stop 11/11/16 at 14:31; Status DC Albuterol/ Ipratropium (Duoneb Neb) 1 ampule Q4HR NEB PRN NEB wheezing; Start 11/11/16 at 13:30; Stop 11/12/16 at 08:21; Status DC Furosemide (Lasix Inj) 20 mg ONCE ONCE IV PUSH Last administered on 11/11/16 14:54; Start 11/11/16 at 13:30; Stop 11/11/16 at 14:27; Status DC Sodium Chloride 188 meq/Sodium Chloride 200 ml @ 200 mls/hr Q1H IV Last administered on 11/11/16 16:00; Start 11/11/16 at 15:00; Stop 11/11/16 at 16:00; Status DC Fosphenytoin Sodium 1000 mgpe/ Sodium Chloride 70 ml @ 280 mls/hr ONCE ONCE IV Last administered on 11/11/16 21:44; Start 11/11/16 at 21:30; Stop 11/11/16 at 21:44; Status DC Fosphenytoin Sodium (Cerebyx Inj) 100 mgpe Q8HR IV Last administered on 12:54; Start 11/12/16 at 06:00; Stop 11/12/16 at 17:07; Status DC Lorazepam (Ativan Inj) 1 mg Q5M PRN IV SEIZURES Last administered on 11/12/16 01:45; Start 11/12/16 at 00:45 Etomidate (Amidate Inj) 40 mg ONCE ONCE IV PUSH Last administered on 11/12/16 07:00; Start 11/12/16 at 07:00; Stop 11/12/16 at 07:15; Status DC Rocuronium [place] (Zemuron Inj) 100 mg BOLUS ONCE IV Last administered on 11/12 07:00; Start 11/12/16 at 07:00; Stop 11/12/16 at 07:16; Status DC Lidocaine HCl (Xylocaine 2% Inj) 100 mg ONCE ONCE IV PUSH Last administered on 11/12/16 07:39; Start 11/12/16 at 07:15; Stop 11/12/16 at 07:16; Status DC Chlorhexidine Gluconate (Peridex 0.12% Liq) 15 ml BID@08,20 MT Last administered on 11/28/16 20:00; Start 11/12/16 at 08:00 Midazolam HCl 100 ml @ 2 mls/hr TITRATE PRN IV SEDATION Last administered on 08:49; Start 11/12/16 at 07:15 Fentanyl Citrate 250 ml @ 5 mls/hr TITRATE PRN IV SEDATION Last administered on 11/13/16 23:20; Start 11/12/16 at 07:15; Stop 11/21/16 at 14:08; Status DC Sodium Chloride (NS Flush) DAILY IVF Last administered on 11/28/16 09:22; Start 11/12/16 at 09:00 Sodium Chloride (NS Flush) UNSCH PRN IVF SEE PROTOCOL; Start 11/12/16 at 08:15 Lansoprazole (Prevacid Odt) 30 mg DAILY NG Last administered on 11/30/16 09:01 ; Start 11/12/16 at 09:00 Sodium Chloride 500 ml @ 20 mls/hr CONTINUOUS IV ; Start 11/12/16 at 09:00; Status Cancel Pharmacy Profile Note 0 ml @ 0 mls/hr UNSCH OTHER ; Start 11/12/16 at 08:30; Stop 11/15/16 at 10:51; Status DC Aztreonam 2000 mg/ Sodium Chloride 100 ml @ 200 mls/hr Q8H IV Last administered on 11/15/16 10:09; Start 11/12/16 at 09:00; Stop 11/15/16 at 10:51; Status DC Metronidazole (Flagyl) 500 mg Q8HR PO Last administered on 11/15/16 06:26; Start 11/12/16 at 14:00; Stop 11/15/16 at 10:51; Status DC Arginine HCl ([place] Powder) 1 pack BID G-TUBE Last administered on 11/14/16 21: 00; Start 11/12/16 at 09:00; Stop 11/15/16 at 04:13; Status DC Insulin Human Regular (NovoLIN R SUPPLEMENTAL SCALE) 1 Q6HR SQ Last administered on 11/17/16 05:59; Start 11/12/16 at 12:00; Stop 11/17/16 at 08:09 ; Status DC Docusate Sodium (Colace Liq) 100 mg Q12HR PO Last administered on 11/29/16 20: 37; Start 11/12/16 at 09:00 Sennosides (Senna Liq) 8.8 mg BID NG Last administered on 11/24/16 22:16; Start 11/12/16 at 09:00 Sodium Chloride (NS Flush) 2 ml UNSCH PRN IV FLUSH FLUSH AFTER USING IV ACCESS ; Start 11/12/16 at 08:30 Sodium Chloride (NS Flush) 2 ml BID IV FLUSH Last administered on 11/30/16 09: 00; Start 11/12/16 at 09:00 Artificial Tears (Tears Naturale Opth Soln) 1 drop TID EACH EYE Last administered on 11/29/16 09:00; Start 11/12/16 at 09:00 Ondansetron HCl (Zofran Inj) 4 mg Q6H PRN IV NAUSEA OR VOMITING Last administered on 11/15/16 05:45; Start 11/12/16 at 08:30 Albuterol/ Ipratropium (Duoneb Neb) 1 ampule Q6HR NEB INH Last administered on 11/16/16 07:57; Start 11/12/16 at 10:00; Stop 11/16/16 at 09:59; Status DC Albuterol Sulfate (Albuterol Neb) 2.5 mg Q2HR NEB PRN INH SOB/WHEEZING Last administered on 11/29/16 21:19; Start 11/12/16 at 08:30 Bisacodyl (Dulcolax Supp) 10 mg DAILY PRN RECTAL SEVERE CONSITIPATION; Start at 08:30 Lactulose (Lactulose Liq) 30 ml DAILY PRN PO SEVERE CONSITIPATION; Start at 08:30 Sodium Chloride 1,000 ml @ 84 mls/hr [id number] IV Last administered on 11/13/16 00:08; Start 11/12/16 at 08:30; Stop 11/13/16 at 08:18; Status DC Potassium Chloride 100 ml @ 50 mls/hr Q2H PRN IV-CENTRAL For Potassium 2.8 - 3.2 mEq/L Last administered on 11/13/16 08:49; Start 11/12/16 at 08:30; Stop at 07:46; Status DC Potassium Chloride 100 ml @ 50 mls/hr Q2H PRN IV For Potassium 2.8 - 3.2 mEq/ L Last administered on 11/23/16 13:09; Start 11/12/16 at 08:30; Stop 11/24/16 at 07:46; Status DC Potassium Bicarb/ Potassium Chloride (K-[place] Cl Eff) 50 meq UNSCH PRN PO For Potassium 3.3 - 3.5 mEq/L Last administered on 11/20/16 13:06; Start 11/12/16 at 08:30; Stop 11/24/16 at 07:46; Status DC Potassium Chloride 100 ml @ 25 mls/hr UNSCH PRN IV-CENTRAL For Potassium 3.3 - 3.5 mEq/L Last administered on 11/16/16 17:47; Start 11/12/16 at 08:30; Stop 11/24/16 at 07:46; Status DC Potassium Chloride 100 ml @ 50 mls/hr Q2H PRN IV For Potassium 3.3 - 3.5 mEq/ L Last administered on 11/16/16 05:34; Start 11/12/16 at 08:30; Stop 11/24/16 at 07:46; Status DC Magnesium Sulfate 4 gm/Sodium Chloride 100 ml @ 50 mls/hr UNSCH PRN IV For Magnesium 0.9 - 1.1 mg/dL; Start 11/12/16 at 08:30; Stop 11/24/16 at 07:46; Status DC Magnesium Oxide (Mag-Ox) 800 mg UNSCH PRN PO For Magnesium 1.2 - 1.6 mg/dL; Start 11/12/16 at 08:30; Stop 11/24/16 at 07:46; Status DC Magnesium Sulfate 2 gm/Sodium Chloride 100 ml @ 50 mls/hr UNSCH PRN IV For Magnesium 1.2 - 1.6 mg/dL; Start 11/12/16 at 08:30; Stop 11/24/16 at 07:46; Status DC Potassium Phosphate (K-Phos) 2,000 mg Q4H PRN PO For Phosphorus < 2.5 mg/dL Last administered on 11/13/16 10:35; Start 11/12/16 at 08:30; Stop 11/24/16 at 07 :46; Status DC Sodium Phosphate 30 mmol/Sodium Chloride 250 ml @ 42 mls/hr UNSCH PRN IV For Phosphorus < 2.5 mg/dL Last administered on 11/19/16 13:58; Start 11/12/16 at 08 :30; Stop 11/24/16 at 07:46; Status DC Potassium Phosphate (K-Phos) 2,000 mg UNSCH PRN PO/TUBE SEE LABEL COMMENTS; Start 11/12/16 at 08:30; Stop 11/24/16 at 07:46; Status DC Potassium Phosphate 30 mmol/ Sodium Chloride 260 ml @ 42 mls/hr UNSCH PRN IV SEE LABEL COMMENTS Last administered on 11/14/16 06:15; Start 11/12/16 at 08:30; Stop 11/24/16 at 07:46; Status DC Acetaminophen (Tylenol 650 Mg/ 20 ml Liq) 650 mg Q6H PRN NG FEVER Last administered on 11/24/16 22:16; Start 11/12/16 at 08:45 Vancomycin HCl 2500 mg/Sodium Chloride 525 ml @ 250 mls/hr ONCE ONCE IV ; Start 11/12/16 at 10:00; Stop 11/12/16 at 10:00; Status DC Vancomycin HCl 2000 mg/Sodium Chloride 520 ml @ 250 mls/hr Q24H IV Last administered on 11/14/16 10:23; Start 11/12/16 at 11:00; Stop 11/15/16 at 10:51; Status DC Sodium Chloride 500 ml @ 20 mls/hr Q24H IV Last administered on 11/16/16 08: 34; Start 11/12/16 at 09:00; Stop 11/16/16 at 09:35; Status DC Miscellaneous Information SPECIFIC LAB TO BE DRAWN:VANCOMYCIN TROUGH DATE TO... ONCE ONCE .XX Last administered on 11/15/16 10:40; Start 11/15/16 at 10:45; Stop 11/15/16 at 10:46; Status DC Lorazepam (Ativan Inj) 2 mg ONCE ONCE IV PUSH Last administered on 11/12/16 12 :43; Start 11/12/16 at 12:30; Stop 11/12/16 at 12:31; Status DC Levetriacetam 100 ml @ 400 mls/hr Q8HR IV Last administered on 11/30/16 05:35 ; Start 11/12/16 at 22:00; Status Future Hold Fosphenytoin Sodium (Cerebyx Inj) 100 mgpe Q6HR IV Last administered on 05:34; Start 11/12/16 at 18:00; Stop 11/18/16 at 13:11; Status DC Potassium Phosphate 30 mmol/ Sodium Chloride 260 ml @ 43.333 mls/ hr ONCE ONCE IV Last administered on 11/13/16 15:42; Start 11/13/16 at 13:45; Stop at 19:44; Status DC Polyethylene Glycol (Miralax) 17 gm BID OG-TUBE Last administered on 11/29/16 20:36; Start 11/13/16 at 21:00 Lactulose (Lactulose Liq) 30 ml DAILY PO Last administered on 11/22/16 09:00; Start 11/14/16 at 09:00 Lactulose (Lactulose Liq) 30 ml ONCE ONCE PO Last administered on 11/13/16 15: 42; Start 11/13/16 at 15:00; Stop 11/13/16 at 15:01; Status DC Mineral Oil (Mineral Oil Liq) 30 ml ONCE ONCE PO ; Start 11/13/16 at 16:00; Stop 11/13/16 at 16:01; Status DC Glycerin (Glycerin Adult Supp) 2 gm BID PRN RECTAL CONSTIPATION - SEVERE; Start 11/13/16 at 15:00 Fosphenytoin Sodium (Cerebyx Inj) 300 mgpe ONCE ONCE IV Last administered on 15:43; Start 11/13/16 at 16:00; Stop 11/13/16 at 16:01; Status DC Hydralazine HCl (Apresoline Inj) 20 mg Q4H PRN IV PUSH SBP>150, DBP>90 Last administered on 11/14/16 03:07; Start 11/14/16 at 02:15 Metoprolol Tartrate (Lopressor Inj) 5 mg Q6H PRN IV PUSH HR>100 Last administered on 11/21/16 15:18; Start 11/14/16 at 03:30; Stop 11/22/16 at 10:47 ; Status DC Metoprolol Tartrate (Lopressor) 25 mg Q12HR PO Last administered on 11/30/16 09:01; Start 11/16/16 at 09:30 Furosemide (Lasix Inj) 40 mg ONCE ONCE IV PUSH Last administered on 11/16/16 10:34; Start 11/16/16 at 09:30; Stop 11/16/16 at 09:36; Status DC Furosemide (Lasix Inj) 40 mg BID@09,18 IV PUSH Last administered on 11/16/16 17:11; Start 11/16/16 at 18:00; Stop 11/17/16 at 08:47; Status DC Midazolam HCl (Versed Inj) 2 mg ONCE ONCE IV PUSH Last administered on 05:31; Start 11/17/16 at 05:30; Stop 11/17/16 at 05:31; Status DC Fentanyl Citrate (fentaNYL INJ) 100 mcg ONCE ONCE IV PUSH Last administered on 11/17/16 05:31; Start 11/17/16 at 05:30; Stop 11/17/16 at 05:31; Status DC Fentanyl Citrate (fentaNYL INJ) 100 mcg STK-MED ONCE .ROUTE ; Start 11/17/16 at 05:30; Stop 11/17/16 at 05:31; Status DC Midazolam HCl (Versed Inj) 2 mg STK-MED ONCE .ROUTE ; Start 11/17/16 at 05:30; Stop 11/17/16 at 05:31; Status DC Sodium Chloride 1,000 ml @ 999 mls/hr BOLUS ONCE IV Last administered on 11/17 06:15; Start 11/17/16 at 06:15; Stop 11/17/16 at 07:15; Status DC Sodium Chloride 1,000 ml @ 999 mls/hr BOLUS ONCE IV Last administered on 11/17 06:15; Start 11/17/16 at 06:15; Stop 11/17/16 at 07:15; Status DC Insulin Detemir (Levemir Inj) 12 units Q12HR SQ Last administered on 11/24/16 09:00; Start 11/17/16 at 09:00; Stop 11/24/16 at 16:11; Status DC Dextrose (D50w (Vial) Inj) 50 ml UNSCH PRN IV HYPOGLYCEMIA-SEE COMMENTS; Start 11/17/16 at 08:15; Status UNV Glucagon (Glucagon Inj) 1 mg UNSCH PRN OTHER HYPOGLYCEMIA-SEE COMMENTS; Start 11/17/16 at 08:15; Status UNV Insulin Aspart (NovoLOG SUPPLEMENTAL SCALE) 1 Q6H SQ Last administered on 22:13; Start 11/17/16 at 09:00; Stop 11/24/16 at 16:17; Status DC Pharmacy Profile Note 0 ml @ 0 mls/hr UNSCH OTHER ; Start 11/17/16 at 08:15 Cefepime HCl 2000 mg/Sodium Chloride 100 ml @ 200 mls/hr Q12H IV Last administered on 11/20/16 09:03; Start 11/17/16 at 09:00; Stop 11/20/16 at 11:24 ; Status DC Potassium Chloride/Sodium Chloride 1,000 ml @ 100 mls/hr Q10H IV Last administered on 11/18/16 04:02; Start 11/17/16 at 08:45; Stop 11/18/16 at 09:29 ; Status DC Metronidazole (Flagyl) 500 mg Q8HR PO Last administered on 11/21/16 07:50; Start 11/17/16 at 09:00; Stop 11/21/16 at 14:08; Status DC Sodium Chloride 1,000 ml @ 999 mls/hr BOLUS ONCE IV Last administered on 11/17 09:32; Start 11/17/16 at 09:00; Stop 11/17/16 at 10:00; Status DC Vancomycin HCl 2000 mg/Sodium Chloride 520 ml @ 260 mls/hr ONCE ONCE IV Last administered on 11/17/16 13:12; Start 11/17/16 at 12:00; Stop 11/17/16 at 13:59 ; Status DC Furosemide (Lasix Inj) 60 mg ONCE ONCE IV PUSH Last administered on 11/18/16 09:36; Start 11/18/16 at 09:30; Stop 11/18/16 at 09:31; Status DC Albuterol/ Ipratropium (Duoneb Neb) 1 ampule Q6HR NEB NEB Last administered on 11/22/16 08:01; Start 11/18/16 at 10:00; Stop 11/22/16 at 09:59; Status DC Vancomycin HCl 2250 mg/Sodium Chloride 522.5 ml @ 250 mls/hr Q18H IV Last administered on 11/21/16 15:10; Start 11/18/16 at 13:00; Stop 11/23/16 at 08:53 ; Status DC Miscellaneous Information SPECIFIC LAB TO BE DRAWN:VANCO TROUGH DATE TO... ONCE ONCE .XX Last administered on 11/20/16 00:45; Start 11/20/16 at 00:45; Stop 11/20/16 at 00:46; Status DC Fosphenytoin Sodium 100 mgpe/ Sodium Chloride 52 ml @ 208 mls/hr Q6HR IV Last administered on 11/30/16 13:10; Start 11/18/16 at 13:00; Status Future Hold Diltiazem HCl (Cardizem Inj) 15 mg ONCE ONCE IV PUSH Last administered on 11/19 01:01; Start 11/19/16 at 00:45; Stop 11/19/16 at 00:48; Status DC Diltiazem HCl 125 mg/Sodium Chloride 125 ml @ 5 mls/hr TITRATE PRN IV Tachycardia; Start 11/19/16 at 00:45; Stop 11/22/16 at 10:47; Status DC Metoprolol Tartrate (Lopressor Inj) 5 mg ONCE ONCE IV PUSH Last administered on 11/19/16 00:53; Start 11/19/16 at 00:45; Stop 11/19/16 at 00:49; Status DC Digoxin (Lanoxin Inj) 0.25 mg ONCE ONCE IV PUSH ; Start 11/19/16 at 00:45; Stop 11/19/16 at 00:47; Status DC Miscellaneous Information SPECIFIC LAB TO BE RENETTA... ONCE ONCE .XX Last administered on 11/22/16 06:45; Start 11/22/16 at 06:45; Stop 11/22/16 at 06:46 ; Status DC Norepinephrine Bitartrate 4 mg/ Sodium Chloride 250 ml @ 7.5 mls/hr TITRATE PRN IV Blood pressure management; Start 11/20/16 at 16:30; Stop 11/21/16 at 14: 08; Status DC Terbutaline Sulfate (Brethine Inj) 1 mg UNSCH PRN SQ For Extravasation; Start 11/20/16 at 16:30 Sodium Chloride 500 ml @ 20 mls/hr ONCE ONCE IV Last administered on 18:05; Start 11/20/16 at 16:30; Stop 11/21/16 at 14:08; Status DC Furosemide (Lasix Inj) 40 mg ONCE ONCE IV PUSH Last administered on 11/21/16 09:31; Start 11/21/16 at 09:30; Stop 11/21/16 at 09:31; Status DC Albuterol/ Ipratropium (Duoneb Neb) 1 ampule ONCE ONCE NEB Last administered on 11/21/16 09:30; Start 11/21/16 at 09:30; Stop 11/21/16 at 10:00; Status DC Potassium Chloride 100 ml @ 50 mls/hr BOLUS ONCE IV ; Start 11/21/16 at 10:15 ; Stop 11/21/16 at 12:14; Status DC Furosemide (Lasix Inj) 40 mg DAILY IV PUSH Last administered on 11/30/16 09:01 ; Start 11/22/16 at 11:00 Vancomycin HCl 1600 mg/Sodium Chloride 516 ml @ 250 mls/hr ONCE ONCE IV Last administered on 11/23/16 10:47; Start 11/23/16 at 11:00; Stop 11/23/16 at 13:03 ; Status DC Vancomycin HCl 1500 mg/Sodium Chloride 515 ml @ 257.5 mls/ hr Q24H IV Last administered on 11/29/16 12:20; Start 11/24/16 at 13:00; Stop 11/30/16 at 14:50 ; Status DC Miscellaneous Information SPECIFIC LAB TO BE RENETTA... ONCE ONCE .XX Last administered on 11/26/16 12:45; Start 11/26/16 at 12:45; Stop 11/26/16 at 12:46 ; Status DC Dextrose (D50w (Syr) Inj) 50 ml STK-MED ONCE .ROUTE Last administered on 15:18; Start 11/24/16 at 15:14; Stop 11/24/16 at 15:15; Status DC Dextrose (D50w (Syr) Inj) 50 ml STK-MED ONCE .ROUTE ; Start 11/24/16 at 15:21; Stop 11/24/16 at 15:22; Status DC Insulin Aspart (NovoLOG SUPPLEMENTAL SCALE) 1 ACHS SLIDING SCALE SQ Last administered on 11/30/16 17:19; Start 11/24/16 at 17:00 Dextrose (D50w (Syr) Inj) 50 ml UNSCH PRN IV HYPOGLYCEMIA-SEE COMMENTS Last administered on 11/25/16 09:46; Start 11/25/16 at 09:30 Megestrol Acetate (Megace Liq) 400 mg ONCE ONCE PO Last administered on 13:08; Start 11/25/16 at 11:15; Stop 11/25/16 at 11:19; Status DC Megestrol Acetate (Megace Liq) 400 mg DAILY PO Last administered on 11/30/16 09:01; Start 11/26/16 at 09:00 Calcium Carbonate (Tums Chew) 500 mg ONCE ONCE CHEW Last administered on 10:47; Start 11/26/16 at 08:15; Stop 11/26/16 at 08:17; Status DC Calcium Carbonate (Tums Chew) 500 mg Q12HR CHEW Last administered on 11/30/16 09:01; Start 11/26/16 at 09:00; Stop 12/06/16 at 08:59 Potassium Phosphate (K-Phos) 500 mg DAILY PO Last administered on 11/28/16 09: 19; Start 11/26/16 at 09:00; Stop 11/29/16 at 08:59; Status DC Miscellaneous Information SPECIFIC LAB TO BE DRAWN:VANCOMYCIN TROUGH DATE TO... ONCE ONCE .XX Last administered on 11/30/16 12:45; Start 11/30/16 at 12:45; Stop 11/30/16 at 12:46; Status DC Potassium Bicarb/ Potassium Chloride (K-Lyte Cl Eff) 50 meq ONCE ONCE PO Last administered on 11/29/16 10:43; Start 11/29/16 at 10:30; Stop 11/29/16 at 10:31; Status DC Vancomycin HCl 1750 mg/Sodium Chloride 517.5 ml @ 257.5 mls/ hr Q24H IV ; Start 11/30/16 at 17:00; Status Future Hold Miscellaneous Information SPECIFIC LAB TO BE RENETTA... ONCE ONCE .XX ; Start 12/02 at 16:45; Stop 12/02/16 at 16:46 Levetriacetam (Keppra) 1,000 mg Q8HR PO ; Start 11/30/16 at 22:00 Phenytoin (Dilantin) 100 mg Q6HR PO ; Start 11/30/16 at 19:45 (Mt Gordon MD) Medical Decision Making MDM Remarks 80 y/o male 1. Traumatic brain injury following fall, Repeat CT brain with continued evolution of intraparenchymal hemorrhages and decrease in the subdural 2. Hypertension 3. Diabetes 4. Seizures (Carol Lino) MDM Remarks Last 48 hours Impressions Upper Extremity Ultrasound 11/30/16 0000 Signed Impressions: Service Date/Time: Wednesday, November 30, 2016 18:49 - CONCLUSION: 1. Superficial venous thrombosis. 2. No deep venous thrombosis. Cj Isdiro MD Modified Barium Swallow 11/30/16 0000 Signed Impressions: Service Date/Time: Wednesday, November 30, 2016 00:00 - CONCLUSION: Please refer to speech pathology report for full details. Lonnie Cook MD (Mt Gordon MD) Plan Plan Remarks cont current care and treatment case mgt for dc planning to SNF/rehab son would like to bring pt back to [facility] from [place] standpoint for travel via air cont medical mgt Dr. Gordon dw son in room (Carol Lino) Plan Remarks Continue neuro checks. Pulmonary.. Continue aggressive pulmonary toilette, nasotracheal suction, and breathing treatments with nebulizers. Nutrition. NPO Renal. monitor closely urine output, BUN and creatinine Endocrine. Monitor serial Acu checks and SSI as needed in detail ID monitor for signs of infection Protonix for stress ulcer prophylaxis Sterling hose and SCD's for DVT prophylaxis The exam, history, and the medical decision-making described in the above note were completed with the assistance of the mid-level provider. I reviewed and agree with the findings presented. I attest that I had a [id number] encounter with the patient on the same day, and personally performed and documented my assessment and findings in the medical record. (Mt Gordon MD) Carol Lino Nov 30, 2016 10:33 Mt Gordon MD Nov 30, 2016 21:18
[2016-11-30 12:00] VITALS: BP 127/66; PULSE 98; RESP 20; TEMP 98.1; O2SAT 97
[2016-11-30] MEDS ORDERED: PHARMACY ORDERED LAB ONE (12:45)
--- NOTE | 2016-11-30 13:02 | RADRPT ---
EXAM DATE/TIME: 11/30/2016 00:00 [facility] COMPARISON: No previous studies available for comparison. INDICATIONS : Dysphagia FLUORO TIME: 2.5 minutes IMAGE COUNT: 0 CONTRAST: Dose as prescribed by speech pathologist. MEDICAL HISTORY : Cardiovascular disease. Diabetes mellitus type II. SURGICAL HISTORY : None. ENCOUNTER: Initial ACUITY: 3 weeks PAIN SCORE: Non-responsive. LOCATION: Bilateral esophagus FINDINGS: A modified barium swallow was performed with speech pathology. Patient was given a variety of liquids to swallow. Material pools in the vallecula. However, no aspiration is observed. For a full detailed report, see report by the speech pathologist. CONCLUSION: Please refer to speech pathology report for full details. Lonnie Cook MD on November 30, 2016 at 13:00 Board Certified Radiologist. This report was verified electronically.
[2016-11-30 16:00] VITALS: BP 132/63; PULSE 99; RESP 20; TEMP 98.1; O2SAT 97
[2016-11-30] MEDS ORDERED: VANCOMYCIN INJ 1,750 MG in SODIUM CHLORID 0.9% 500 ML INJ 500 ML IV SCH (17:00)
--- NOTE | 2016-11-30 19:36 | RADRPT ---
EXAM DATE/TIME: 11/30/2016 18:49 [facility] COMPARISON: No previous studies available for comparison. INDICATIONS : Left arm swelling. MEDICAL HISTORY : Atrial fibrillation. Nausea. Vomiting. Diabetes. Chemotherapy. SURGICAL HISTORY : Neck surgery for cancer removal. Cardiac catheterization. ENCOUNTER: Initial ACUITY: 1 day PAIN SCORE: Non-responsive LOCATION: Left arm. FINDINGS: There is spontaneous flow documented in the brachial, basilic, axillary, and subclavian veins. The v essels are compressible and augmentation response is documented. Superficial thrombosis is noted in t he left cephalic vein extending from the proximal upper arm to the wrist. No filling defects are seen . The flow is phasic with respiration. Direction of flow in the jugular vein is caudal. CONCLUSION: 1. Superficial venous thrombosis. 2. No deep venous thrombosis. Cj Isidro MD on November 30, 2016 at 19:34 Board Certified Radiologist. This report was verified electronically.
[2016-11-30] MEDS: levETIRAcetam 500 MG TAB PO SCH (21:20)
[2016-11-30] MEDS: TAMSULOSIN HCL 0.4 MG CAP PO SCH (21:24)
[2016-11-30] MEDS: PHENYTOIN SODIUM 100 MG CAP PO SCH (21:46)
[2016-11-30 22:00] VITALS: BP 141/68; PULSE 98; RESP 19; TEMP 97.7; O2SAT 96
[2016-12-01 00:40] VITALS: BP 140/60; PULSE 88; RESP 19; TEMP 98.4; O2SAT 96
[2016-12-01] MEDS: PHENYTOIN SODIUM 100 MG CAP PO SCH ×4 (00:59→18:12)
[2016-12-01 04:00] VITALS: BP 143/75; PULSE 97; RESP 19; TEMP 97.6; O2SAT 97
[2016-12-01] MEDS: levETIRAcetam 500 MG TAB PO SCH ×3 (05:53→21:14)
[2016-12-01 08:00] VITALS: BP 145/74; PULSE 95; RESP 20; TEMP 97.4; O2SAT 96
[2016-12-01] MEDS: INSULIN ASPART SUPPLEMENTAL SCALE SQ SCH ×4 (08:00→21:16)
[2016-12-01] MEDS: CHLORHEXIDINE 0.12% (ORAL KIT) 15 ML CUP MT SCH ×2 (08:00→20:00)
[2016-12-01] MEDS: DOCUSATE SODIUM 100 MG/10 ML UDC PO SCH ×2 (09:00→21:00)
[2016-12-01] MEDS: SODIUM CHLORIDE 0.9% FLUSH 10 ML FLUSH IV FLUSH SCH ×2 (09:00→21:14)
[2016-12-01] MEDS: LACTULOSE SYRUP 20 GM/30 ML CUP PO SCH (09:00)
[2016-12-01] MEDS: SODIUM CHLORIDE 0.9% FLUSH 10 ML FLUSH IVF SCH (09:00)
[2016-12-01] MEDS: LANSOPRAZOLE SOLUTAB 30 MG TAB NG SCH (09:00)
[2016-12-01] MEDS: POLYETHYLENE GLYCOL 17 GM PKG OG-TUBE SCH ×2 (09:00→21:00)
[2016-12-01] MEDS: SENNOSIDES SYRUP 8.8 MG/5 ML CUP NG SCH ×2 (09:00→21:14)
[2016-12-01] MEDS: ARTIFICIAL TEARS OPTH SOLN 15 ML BTL EACH EYE SCH ×3 (09:00→18:00)
[2016-12-01] MEDS: MEGESTROL ACETATE SUSP 400 MG/10 ML CUP PO SCH (09:29)
[2016-12-01] MEDS: FUROSEMIDE 40 MG/4 ML VIAL IV PUSH SCH (09:29)
[2016-12-01] MEDS: METOPROLOL TARTRATE 25 MG TAB PO SCH ×2 (09:31→21:15)
[2016-12-01] MEDS: FINASTERIDE 5 MG TAB PO SCH (09:33)
[2016-12-01] MEDS: CALCIUM CARBONATE 500 MG CHEWABLE TAB CHEW SCH ×2 (09:34→21:13)
[2016-12-01] MEDS: TOLTERODINE TARTRATE 2 MG CAP LA PO SCH (09:36)
--- NOTE | 2016-12-01 11:46 | HHI.PR ---
Subjective Remarks Follow-up traumatic brain injury/intraparenchymal hemorrhage/subdural hemorrhaging/acute respiratory insufficiency/metabolic encephalopathy 11/29/16-patient seen and examined, daughter by the bedside. He is responding to daughter's cues. Per daughter, patient seems to be more alert. Like patient to be transferred back to [facility] in 2-3 weeks after discharge, and she is wondering if he can make it on a special plane 11/30/16-patient seen and examined, patient much more alert today. Appears to be choking on his food. Son By the Bedside 12/01/16-patient seen and examined; he appears more drowsy and lethargic today. Doppler left upper extremity positive for superficial venous thrombosis. Afebrile. Daughter by the bedside Objective Vitals Vital Signs Date Time Temp Pulse Resp B/P (MAP) Pulse Ox O2 Delivery O2 Flow Rate FiO2 12/01/16 08:00 97.4 95 20 145/74 (97) 96 12/01/16 04:00 97.6 97 19 143/75 (97) 97 12/01/16 00:40 98.4 88 19 140/60 (86) 96 11/30/16 22:00 97.7 98 19 141/68 (92) 96 11/30/16 22:00 Nasal Cannula 2.00 Humidified 11/30/16 16:00 98.1 99 20 132/63 (86) 97 11/30/16 12:00 98.1 98 20 127/66 (86) 97 I/O 11/30/16 11/30/16 11/30/16 12/01/16 12/01/16 12/01/16 07:00 15:00 23:00 07:00 15:00 23:00 Intake Total 52 ml 200 ml 250 ml Output Total 325 ml 2000 ml 200 ml 300 ml 600 ml Balance -273 ml -2000 ml 0 ml -50 ml -600 ml Intake Oral 200 ml 250 ml IV Total 52 ml Output Urine Total 325 ml 2000 ml 200 ml 300 ml 600 ml # Bowel Movements 1 1 2 3 Result Diagram: 11/27/16 1010 11/30/16 1330 Imaging Last Impressions Upper Extremity Ultrasound 11/30/16 0000 Signed Impressions: Service Date/Time: Wednesday, November 30, 2016 18:49 - CONCLUSION: 1. Superficial venous thrombosis. 2. No deep venous thrombosis. Cj Isidro MD Modified Barium Swallow 11/30/16 0000 Signed Impressions: Service Date/Time: Wednesday, November 30, 2016 00:00 - CONCLUSION: Please refer to speech pathology report for full details. Lonnie Cook MD Head CT 11/28/16 0600 Signed Impressions: Service Date/Time: Monday, November 28, 2016 08:21 - CONCLUSION: 1. Evolving bilateral intraparenchymal hemorrhages with vasogenic edema. Decreasing acute hemorrhage. 2. No midline shift. Chay De La Cruz MD Chest X-Ray 11/27/16 0000 Signed Impressions: Service Date/Time: November 22:36 - CONCLUSION: Decreasing consolidation and effusions of both bases. Lonnie Carroll MD Transcranial Doppler Study Complete 11/17/16 0000 Signed Impressions: Service Date/Time: Thursday, November 17, 2016 10:03 - CONCLUSION: 1. Nondiagnostic examination due to poor transcranial windows. Konstantin Dash MD Abdomen X-Ray 11/12/16 0000 Signed Impressions: Service Date/Time: Saturday, November 12, 2016 08:23 - CONCLUSION: 1. Gastric tube in good position. 2. Probable right renal stones. Narayan Coulter MD Cervical Spine CT 11/09/161950 Signed Impressions: Service Date/Time: Wednesday, November 09, 2016 20:14 - CONCLUSION: Negative trauma CT. Cj Isidro MD Objective Remarks GENERAL: NAD , somehow lethargic but easily arousable SKIN: Warm and dry. HEAD: Normocephalic. EYES: No scleral icterus. No injection or drainage. NECK: Supple, trachea midline. No JVD or lymphadenopathy. CARDIOVASCULAR: Regular rate and rhythm without murmurs, gallops, or rubs. RESPIRATORY: Breath sounds equal bilaterally. No accessory muscle use. GASTROINTESTINAL: Abdomen soft, non-tender, nondistended. MUSCULOSKELETAL: No cyanosis, or edema. BACK: Nontender without obvious deformity. No CVA tenderness. Date of Insertion: Nov 12, 2016 Line: Central Venous Catheter Side: Right Location: Internal, Jugular A/P Problem List: (1) Subdural hematoma ICD Code: I62.00 - Nontraumatic subdural hemorrhage, unspecified Status: Acute (2) Diabetes ICD Code: E11.9 - Type 2 diabetes mellitus without complications (3) Leukocytosis ICD Code: D72.829 - Elevated white blood cell count, unspecified Status: Acute (4) HTN (hypertension) ICD Code: I10 - Essential (primary) hypertension Status: Chronic (5) Dysphagia ICD Code: R13.10 - Dysphagia, unspecified Assessment and Plan 80 y/o with Closed head injury Subdural hematoma Bilateral intracranial hemorrhaging -Secondary to mentation change, will check head CT today 12/01/16 -Managed by neurosurgery and no indication for surgery at this time -Neuro checks -Continue with Keppra and Dilantin by mouth Metabolic encephalopathy Recheck head CT today 12/01/16 Also check chest x-ray to rule out any pulmonary infiltrate Acute respiratory insufficiency secondary to altered mental status Improving Continue with DuoNeb when necessary and maintain oxygen saturation above 92% Atrial fibrillation Hypertension Continue with Lopressor Oral anticoagulation contraindicated secondary to intracranial bleed Benign prosthetic hyperplasia Continue with Flomax Noriega care Diabetes mellitus - hemoglobin A1c 6.0 Dysphagia r/o Check modified barium swallow today 11/30/16 Prophylaxis - GI - lanosprazole DVT - SCD/pharmacological prophylaxis when okay with neurosurgery Chay Veliz MD Dec 01, 2016 11:46
[2016-12-01 12:00] VITALS: BP 138/69; PULSE 97; RESP 20; TEMP 97.6; O2SAT 97
--- NOTE | 2016-12-01 12:00 | HHI.NSPN ---
([facility]) History Chief Complaint: Unable to obtain due to patient's clinical condition. ([facility]) Interval History 11/09: 80-year-old male who according to his family was going up a step into the house with his cane when he fell backwards, striking the back of his head. He was reportedly unconscious for 10-15 minutes. He then had some shaking in the extremities as he was waking up. He has been somewhat sleepy and a little confused since he woke up at the patient's family states that he is conversing reasonably well with them. He normally is fairly independent, ambulating with a cane and is usually mentally alert with only mild memory loss. Positive emesis reported. Patient has no complaint of headache or neck pain. No complaint of low back or joint pain. 11/10: nursing reports agitated overnight, currently sleeping. f/u CT Head completed, moves all four extremities. son translated - oriented to name and place only. 11/11: Notified by PARVIN Stoner, that Nursing had notified her that the patient's mental status was worse this morning and that she had ordered a stat CT brain. When seen this morning the patient is obtunded and not answering to verbal stimuli. Nursing reports that CT had called and was sending someone up to transport the patient to the scanner. She stated that the patient did receive morphine and hydrocodone during the night for pain because he was agitated. 11/12: The patient has been intubated this morning due to persistent decreased mental status. Possibly a few more episodes of seizure activity reported last evening. He is continuing on Dilantin and Keppra for seizures. 11/13: The patient still is intubated, mechanically ventilated and sedated with midazolam. He does not respond to noxious stimulation. The EEG done yesterday morning did demonstrate seizure activity. Neurology evaluated the patient yesterday and adjusted his anti-epileptic medications. An EEG was done this morning prior to the patient being seen. 11/14: The patient remains intubated. A midazolam drip is still infusing as is a fentanyl drip. A repeat Ct brain this morning demonstrated evolving contusions and haemorrhages. 11/15: The patient is intubated without any sedation. The midazolam and fentanyl infusions were discontinued yesterday. A 3% saline drip continues to infuse. He did have a slight twitching of the eyelids when his name was called but no eye opening. 11/16: This morning the patient opened his eyes to verbal stimulation. He continues to be intubated without any sedation. 11/17/16: Patient remains intubated. He had a dose of intravenous sedation last night for agitation. Remains relatively alert. Positive fever last evening. Some difficulty with hemodynamic instability last evening. 11/18: The patient is on a cooling blanket with ice packs when seen this morning. He continues to be intubated. He does look to whomever is speaking and did follow commands. 11/19: The patient is asleep but awakens on his own. He was extubated this morning and is now on a nasal cannula. He follows commands and moves all his extremities to a degree. He does tell his daughter that he is tired. The family reports earlier that the patient did ask where his and son were by name. 11/20: When seen this afternoon the patient had just been transferred to a regular med/surg floor. He appears mildly distressed and is moaning. His daughter states that he has said he has pain all over. 11/21: Notified by [facility] physician (Dr Mejia, PGY1) that patient was having increased respiratory effort. He reported that the patient's oxygen saturation was satisfactory but the chest x-ray demonstrated fluid overload. Therefore 40 mg furosemide IV was ordered as was a nebuliser treatment. When seen the patient appeared moderately distress and had just received the furosemide with the nebuliser treatment ongoing. The Charge Nurse reported that the patient was lethargic and not responding to commands. He reported that the [employer] T[employer] Helper is aware that the patient is being transferred to [facility] for further care and management. The Hospitalist was present and evaluating the patient. 11/22: Patient not opening eyes or following commands. Not verbalizing. 11/23: Pt opens eyes and tracks around room. He is restless. Not following commands for staff or reportedly family. Pt not verbalizing. 11/24: This morning the patient is awake and tracks. He is noted to move the upper extremities spontaneously. He moans but there is no other verbalisation. The son did state that yesterday he was talking quite a bit. When asked the son states that he has no complaint of pain but says that he feels tired all the time. 11/25: The patient is drowsy when seen this afternoon. He does squeeze with the right hand mimicking it demonstrated, otherwise he responded to local noxious stimulation. He did attempt to verbalise a few words. 11/26: The patient is initially seen with Dr Godfrey this morning and is lethargic. His daughter reports that he will not wake up to eat breakfast. This afternoon when seen the patient remains lethargic and minimally responsive to noxious stimulation. His daughter reported that the patient was up for the whole night, not last night but the night before. 11/27: This morning the patient remains lethargic. His daughter reports that he did briefly wake some yesterday and she was able to feed him but not today. 11/28: The patient is drowsy this morning. He does awaken to voice and looks at this practitioner. The son states that the patient didn't know him this morning. He did say the patient did squeeze with his right hand and moved it spontaneously and would grab the covers and move them. He does say that the patient did not move any of his other extremities. The patient did eat well this morning according to the son. The son did have to feed the patient. The patient had a repeat CT brain yesterday due to his continued lethargy/ drowsiness which demonstrated continued evolution of the bilateral intraparenchymal haemorrhages with the subdural haemorrhages decreasing. 11/29: family in room, says pt doing well, she would like to try to fly him back to [facility] for more medical care following completion of rehab 11/30: appears more awake today, son would like to try to have patient brought back to [facility] following discharge. 12/01: The patient is awake today when seen. After the daughter told him who I was he responded with "Daniel doctor." He did follow some some commands. In speaking with the daughter the plan is to take her father back home in 3 to 4 weeks, basically once all the arrangements have been made. When asked about transferring to [facility] she said that the family wanted him to stay here until the arrangements have been made. Notified this morning by PARVIN Valdez, that Dr Navarrete had notified him that there is a physician in [place] [facility] that would like to speak with Dr Godfrey regarding the patient and that the telephone number is on the chart. (Brennon White) System Review Comments Unable to obtain due to patient's clinical condition. (Brennon White) Exam Results 11/29/16 11/29/16 11/30/16 11/30/16 12/01/16 12/01/16 06:00 18:00 06:00 18:00 06:00 18:00 Intake Total 1031 ml 200 ml 152 ml 450 ml Output Total 2475 ml 625 ml 2000 ml 500 ml 600 ml Balance 1031 ml -2275 ml -473 ml -2000 ml -50 ml -600 ml Intake Oral 200 ml 450 ml IV Total 1031 ml 152 ml Output Urine Total 2475 ml 625 ml 2000 ml 500 ml 600 ml # Bowel Movements 2 1 1 5 Vital Signs Date Time Temp Pulse Resp B/P (MAP) Pulse Ox O2 Delivery O2 Flow Rate FiO2 12/01/16 08:00 97.4 95 20 145/74 (97) 96 12/01/16 04:00 97.6 97 19 143/75 (97) 97 12/01/16 00:40 98.4 88 19 140/60 (86) 96 11/30/16 22:00 97.7 98 19 141/68 (92) 96 11/30/16 22:00 Nasal Cannula 2.00 Humidified 11/30/16 16:00 98.1 99 20 132/63 (86) 97 11/30/16 12:00 98.1 98 20 127/66 (86) 97 11/30/16 08:00 98.2 66 20 142/67 (92) 96 11/30/16 07:31 96 Nasal Cannula 2.00 Humidified 11/30/16 04:00 98.2 89 18 128/60 (82) 95 11/30/16 00:00 97.4 87 18 114/54 (74) 96 11/30/16 00:00 97 Nasal Cannula 2.00 11/29/16 21:21 99 Nasal Cannula 2.00 11/29/16 20:00 97.4 92 18 129/73 (91) 96 11/29/16 16:00 97.6 94 18 133/65 (87) 94 11/29/16 12:00 97.8 104 16 135/72 (93) 93 11/29/16 09:43 97 Nasal Cannula 2.00 11/29/16 08:00 97.3 101 16 141/65 (90) 98 11/29/16 04:00 98.1 92 22 126/58 (80) 95 11/29/16 03:06 Nasal Cannula 2.00 Humidified 11/29/16 00:00 97.6 86 22 119/57 (77) 97 11/28/16 20:18 97.5 91 20 117/56 (76) 11/28/16 16:21 97.4 93 20 119/60 (79) 96 11/28/16 11:58 97.4 103 20 137/66 (89) 95 (Brennon White) Physical Examination GENERAL: Patient awake and looks at this practitioner, no apparent distress. SKIN: Warm, dry & intact w/o any evident rashes, ulcerations or lesions. HEENT: Normocephalic. Pupils appear to be 2 mm and sluggish. NECK: No JVD, trachea midline. CARDIOVASCULAR: S1S2 w/RRR w/o M/G/R, radial & pedal pulses 2+ bilaterally, cap refill < 2 sec, 1+ pedal edema bilaterally. RESPIRATORY: Essentially clear bilaterally, equal excursion, nonlaboured, on NC. GASTROINTESTINAL: Abdomen soft, nontender, positive bowel sounds. MUSCULOSKELETAL: No evident deformity or clubbing. NEUROLOGICAL: Awake & alert, looks at this practitioner. GCS 13 (E4 V3 M6). Pupils appear to be 2 mm and sluggish. Follow simple commands with some coaxing. He does verbalise "Hello doctor" after his daughter tells him who I am, voice is garbled. He does squeeze to command with both hands R>L, but no response to command or noxious stimulation to BLE. Unable to assess sensation. (Brennon White) Lab, Micro, Other Results Recent Impressions Upper Extremity Ultrasound 11/30/16 0000 Signed Impressions: Service Date/Time: Wednesday, November 30, 2016 18:49 - CONCLUSION: 1. Superficial venous thrombosis. 2. No deep venous thrombosis. Cj Isidro MD Modified Barium Swallow 11/30/16 0000 Signed Impressions: Service Date/Time: Wednesday, November 30, 2016 00:00 - CONCLUSION: Please refer to speech pathology report for full details. Lonnie Cook MD Laboratory Tests Test 11/30/16 13:30 Creatinine 0.66 MG/DL Estimat Glomerular Filtration Rate 116 ML/MIN Vancomycin Level Trough 8.0 MCG/ML (Brennon White) Medical Decision Making Impression and Plan Impression: 1. Traumatic brain injury 2. Hypertension 3. Diabetes 4. Respiratory failure 5. Seizures Patient maintaining airway, neuro exam with slight improvement o/w stable. Repeat CT brain with continued evolution of intraparenchymal haemorrhages and decrease in the subdurals. Plan: Medical management per Hospitalist. Continue neuro checks. Continue present diabetic medications with insulin sliding scale. Non-chemical DVT prophylaxis. Ulcer prophylaxis. Appreciate Hospitalist's input and assistance. Patient is able to be discharged for further rehab from NSGY's perspective. (Brennon White) Attending Statement The exam, history, and the medical decision-making described in the above note were completed with the assistance of the mid-level provider. I reviewed and agree with the findings presented. I attest that I had a [id number] encounter with the patient on the same day, and personally performed and documented my assessment and findings in the medical record. More alert and responsive today. Family considering transfer home (Tony Godfrey MD) Brennon White Dec 01, 2016 11:59 Tony Godfrey MD Dec 02, 2016 21:47
--- NOTE | 2016-12-01 13:01 | RADRPT ---
EXAM DATE/TIME: 12/01/2016 11:38 [facility] COMPARISON: CHEST SINGLE AP, November 27, 2016, 22:36. BA SWALLOW W/SPEECH PATHOLOGY, November 30, 2016, 0:00. INDICATIONS : Shory of breath MEDICAL HISTORY : atrial fibrillation, diabetes, chemotherapy SURGICAL HISTORY : neck surgery for cancer, cardiac catherization ENCOUNTER: Initial ACUITY: 1 week PAIN SCORE: Non-responsive. LOCATION: Bilateral chest FINDINGS: The heart is mildly enlarged. There is a left basilar effusion and mild consolidative change in the l eft lower lobe. There is diffuse interstitial prominence which is similar in appearance to previous d ated 11/27/16. Exam would suggest congestive failure. The osseous structures are intact. CONCLUSION: 1. Small bilateral effusions with consolidative changes in the left lower lobe and diffuse interstiti al prominence. Exam would suggest congestive failure. Study is stable compared to prior dated 11/27/16 . Anthony Burns MD on December 01, 2016 at 12:59 Board Certified Radiologist. This report was verified electronically.
--- NOTE | 2016-12-01 13:42 | RADRPT ---
EXAM DATE/TIME: 12/01/2016 13:14 [facility] COMPARISON: CT BRAIN W/O CONTRAST, November 21, 2016, 10:22. CT BRAIN W/O CONTRAST, November 28, 2016, 8:21. INDICATIONS : Follow up intracranial hemorrhage. RADIATION DOSE: 56.40 CTDIvol (mGy) MEDICAL HISTORY : Cardiovascular disease. Diabetes mellitus type 2. SURGICAL HISTORY : None. ENCOUNTER: Subsequent ACUITY: 2 weeks PAIN SCALE: 0/10 LOCATION: cranial TECHNIQUE: Multiple contiguous axial images were obtained of the head. Using automated exposure control and adj ustment of the mA and/or kV according to patient size, radiation dose was kept as low as reasonably a chievable to obtain optimal diagnostic quality images. DICOM format image data is available electro nically for review and comparison. FINDINGS: Bilateral hypodense subdural hematomas are seen in the occipital region and along the tentorium cereb hillary on the right as well as small right frontal subdural hematoma unchanged. The left frontal parenc hymal bleed is decreased in density with a small amount of edema identified. There is atrophy and mod erate confluent hypodense white matter disease in the periventricular regions. The right frontal and left insular bleeds are much less conspicuous with a small amount of residual high density in the rig ht frontal region with a small amount of surrounding edema. There is no midline shift or mass effect. Vascular calcifications are noted. No fractures. CONCLUSION: Evolving intracranial hemorrhagic foci as above, both intra-axial and extra-axial. Jesus Lee MD on December 01, 2016 at 13:39 Board Certified Radiologist. This report was verified electronically.
[2016-12-01 15:14] LABS: AUTOMATED NEUTROPHIL # 1.7 TH/MM3 (1.8-7.7); BASOPHIL % 0.1 % (0.0-2.0); EOSINOPHIL # 0.1 TH/MM3 (0-0.4); EOSINOPHIL % 1.1 % (0.0-4.0); HEMATOCRIT 30.1 % (39.0-51.0); LYMPH % 75.3 % (9.0-44.0); LYMPHOCYTE # 8.7 TH/MM3 (1.0-4.8); MEAN CELL VOLUME 89.5 FL (80.0-100.0); MEAN CORPUSCULAR HEMOGLOBIN 28.8 PG (27.0-34.0); MEAN CORPUSCULAR HGB CONC 32.1 % (32.0-36.0); MONO % 8.4 % (0.0-8.0); NEUT % 15.1 % (16.0-70.0); PLATELET COUNT 347 TH/MM3 (150-450); RED BLOOD COUNT 3.36 MIL/MM3 (4.50-5.90); RED CELL DISTRIBUTION WIDTH 19.5 % (11.6-17.2); WHITE BLOOD COUNT 11.6 TH/MM3 (4.0-11.0)
[2016-12-01 15:20] LABS: HEMO FLAGS AUTO DIFF
[2016-12-01 15:32] LABS: POTASSIUM 3.8 MEQ/L (3.5-5.1)
[2016-12-01 16:00] VITALS: BP 147/70; PULSE 98; RESP 20; TEMP 98.1; O2SAT 98
[2016-12-01 18:02] LABS: BLASTS 1 % (0-0); EOSINOPHILS 1 % (0-4); NEUTROPHIL # MANUAL DIFF 1.7 TH/MM3 (1.8-7.7); POLYS (SEG NEUTROPHILS) 15 % (16-70); WBC DIFF SAMPLE 100
[2016-12-01 18:03] LABS: PLATELET ESTIMATE SMEAR NORMAL (NORMAL); PLATELET MORPHOLOGY NORMAL (NORMAL); SCAN/DIFF FINAL DIFF MANUAL
[2016-12-01 18:04] LABS: OVALOCYTES 1+ (NORMAL)
[2016-12-01 18:05] LABS: KERATOCYTES OCC (NORMAL)
[2016-12-01 18:10] LABS: SMUDGE CELLS PRESENT PRESENT
[2016-12-01] MEDS: VANCOMYCIN INJ 1,750 MG in SODIUM CHLORID 0.9% 500 ML INJ 500 ML IV SCH (18:18)
[2016-12-01 20:00] VITALS: BP 139/65; PULSE 95; RESP 20; TEMP 97.2; O2SAT 98
[2016-12-01] MEDS: TAMSULOSIN HCL 0.4 MG CAP PO SCH (21:15)
[2016-12-01 21:57] LABS: BLOOD, URINE TRACE (NEG); COMMENT (UR) CATH-CULTURE IND; CULTURE IF INDICATED CATH CULTURE IND; GLUCOSE,URINE NEG (NEG); KETONE, URINE NEG (NEG); MUCUS URINE FEW /lpf (OCC); NITRITE,URINE NEG (NEG); PH, URINE 5.5 (5.0-8.5); SQUAMOUS EPITHELIAL CELL URINE 1 /hpf (0-5); URINE COLOR YELLOW (YELLW/STRAW)
[2016-12-02] VITALS (7 sets, daily range): BP systolic 127–152; BP diastolic 60–74; PULSE 85–107; RESP 18–20; TEMP 97.2–98.3; O2SAT 95–100
[2016-12-02] MEDS: PHENYTOIN SODIUM 100 MG CAP PO SCH ×4 (00:11→18:48)
[2016-12-02] MEDS: levETIRAcetam 500 MG TAB PO SCH ×3 (05:22→21:01)
[2016-12-02] MEDS: CHLORHEXIDINE 0.12% (ORAL KIT) 15 ML CUP MT SCH ×2 (08:00→20:00)
[2016-12-02] MEDS: INSULIN ASPART SUPPLEMENTAL SCALE SQ SCH ×4 (08:00→20:54)
[2016-12-02] MEDS: ARTIFICIAL TEARS OPTH SOLN 15 ML BTL EACH EYE SCH ×3 (09:00→18:00)
[2016-12-02] MEDS: SODIUM CHLORIDE 0.9% FLUSH 10 ML FLUSH IVF SCH (09:00)
[2016-12-02] MEDS: MEGESTROL ACETATE SUSP 400 MG/10 ML CUP PO SCH (09:54)
[2016-12-02] MEDS: POLYETHYLENE GLYCOL 17 GM PKG OG-TUBE SCH ×2 (09:54→20:54)
[2016-12-02] MEDS: LACTULOSE SYRUP 20 GM/30 ML CUP PO SCH (09:54)
[2016-12-02] MEDS: TOLTERODINE TARTRATE 2 MG CAP LA PO SCH (09:54)
[2016-12-02] MEDS: CALCIUM CARBONATE 500 MG CHEWABLE TAB CHEW SCH ×2 (09:54→20:53)
[2016-12-02] MEDS: DOCUSATE SODIUM 100 MG/10 ML UDC PO SCH ×2 (09:54→20:53)
[2016-12-02] MEDS: SENNOSIDES SYRUP 8.8 MG/5 ML CUP NG SCH ×2 (09:55→20:53)
[2016-12-02] MEDS: LANSOPRAZOLE SOLUTAB 30 MG TAB NG SCH (09:55)
[2016-12-02] MEDS: FUROSEMIDE 40 MG/4 ML VIAL IV PUSH SCH (09:55)
[2016-12-02] MEDS: FINASTERIDE 5 MG TAB PO SCH (09:56)
[2016-12-02] MEDS: SODIUM CHLORIDE 0.9% FLUSH 10 ML FLUSH IV FLUSH SCH ×2 (09:56→20:54)
[2016-12-02] MEDS: METOPROLOL TARTRATE 25 MG TAB PO SCH ×2 (09:56→20:54)
--- NOTE | 2016-12-02 11:27 | HHI.PR ---
Subjective Remarks Follow-up traumatic brain injury/intraparenchymal hemorrhage/subdural hemorrhaging/acute respiratory insufficiency/metabolic encephalopathy 11/29/16-patient seen and examined, daughter by the bedside. He is responding to daughter's cues. Per daughter, patient seems to be more alert. Like patient to be transferred back to [facility] in 2-3 weeks after discharge, and she is wondering if he can make it on a special plane 11/30/16-patient seen and examined, patient much more alert today. Appears to be choking on his food. Son By the Bedside 12/01/16-patient seen and examined; he appears more drowsy and lethargic today. Doppler left upper extremity positive for superficial venous thrombosis. Afebrile. Daughter by the bedside 12/02/16-patient seen and examined much more alert today. UA positive. Afebrile. WBC up. Daughter by the bedside Objective Vitals Vital Signs Date Time Temp Pulse Resp B/P (MAP) Pulse Ox O2 Delivery O2 Flow Rate FiO2 12/02/16 08:00 97.4 107 20 152/74 (100) 97 12/02/16 05:26 97.9 101 19 144/74 (97) 96 12/02/16 00:08 97.2 85 20 131/64 (86) 100 12/01/16 21:30 96 Nasal Cannula 2.00 Humidified 12/01/16 20:00 97.2 95 20 139/65 (89) 98 12/01/16 16:00 98.1 98 20 147/70 (95) 98 12/01/16 12:00 97.6 97 20 138/69 (92) 97 I/O 12/01/16 12/01/16 12/01/16 12/02/16 12/02/16 12/02/16 07:00 15:00 23:00 07:00 15:00 23:00 Intake Total 250 ml Output Total 300 ml 1250 ml 800 ml 1100 ml Balance -50 ml -1250 ml -800 ml -1100 ml Intake Oral 250 ml Output Urine Total 300 ml 1250 ml 800 ml 1100 ml # Bowel Movements 3 Result Diagram: 12/01/16 1449 12/02/16 0830 Imaging Last Impressions Head CT 12/01/16 0000 Signed Impressions: Service Date/Time: Thursday, December 01, 2016 13:14 - CONCLUSION: Evolving intracranial hemorrhagic foci as above, both intra-axial and extra-axial. Jesus Lee MD Chest X-Ray 12/01/16 0000 Signed Impressions: Service Date/Time: Thursday, December 01, 2016 11:38 - CONCLUSION: 1. Small bilateral effusions with consolidative changes in the left lower lobe and diffuse interstitial prominence. Exam would suggest congestive failure. Study is stable compared to prior dated 11/27/16. Anthony Burns MD Upper Extremity Ultrasound 11/30/16 0000 Signed Impressions: Service Date/Time: Wednesday, November 30, 2016 18:49 - CONCLUSION: 1. Superficial venous thrombosis. 2. No deep venous thrombosis. Cj Isidro MD Modified Barium Swallow 11/30/16 0000 Signed Impressions: Service Date/Time: Wednesday, November 30, 2016 00:00 - CONCLUSION: Please refer to speech pathology report for full details. Lonnie Cook MD Transcranial Doppler Study Complete 11/17/16 0000 Signed Impressions: Service Date/Time: Thursday, November 17, 2016 10:03 - CONCLUSION: 1. Nondiagnostic examination due to poor transcranial windows. Konstantin Dash MD Abdomen X-Ray 11/12/16 0000 Signed Impressions: Service Date/Time: Saturday, November 12, 2016 08:23 - CONCLUSION: 1. Gastric tube in good position. 2. Probable right renal stones. Narayan Coulter MD Cervical Spine CT 11/09/161950 Signed Impressions: Service Date/Time: Wednesday, November 09, 2016 20:14 - CONCLUSION: Negative trauma CT. Cj Isidro MD Objective Remarks GENERAL: NAD , somehow lethargic but easily arousable SKIN: Warm and dry. HEAD: Normocephalic. EYES: No scleral icterus. No injection or drainage. NECK: Supple, trachea midline. No JVD or lymphadenopathy. CARDIOVASCULAR: Regular rate and rhythm without murmurs, gallops, or rubs. RESPIRATORY: Breath sounds equal bilaterally. No accessory muscle use. GASTROINTESTINAL: Abdomen soft, non-tender, nondistended. MUSCULOSKELETAL: No cyanosis, or edema. BACK: Nontender without obvious deformity. No CVA tenderness. Date of Insertion: Nov 12, 2016 Line: Central Venous Catheter Side: Right Location: Internal, Jugular A/P Problem List: (1) Subdural hematoma ICD Code: I62.00 - Nontraumatic subdural hemorrhage, unspecified Status: Acute (2) Diabetes ICD Code: E11.9 - Type 2 diabetes mellitus without complications (3) Leukocytosis ICD Code: D72.829 - Elevated white blood cell count, unspecified Status: Acute (4) HTN (hypertension) ICD Code: I10 - Essential (primary) hypertension Status: Chronic (5) Dysphagia ICD Code: R13.10 - Dysphagia, unspecified (6) Urinary tract infection ICD Code: N39.0 - Urinary tract infection, site not specified Assessment and Plan 80 y/o with Closed head injury Subdural hematoma Bilateral intracranial hemorrhaging -Managed by neurosurgery and no indication for surgery at this time -Neuro checks -Continue with Keppra and Dilantin by mouth Metabolic encephalopathy-improving Recheck head CT 12/01/16 noted UA positive therefore will start patient on Azactam Acute respiratory insufficiency secondary to altered mental status Improving Continue with DuoNeb when necessary and maintain oxygen saturation above 92% Atrial fibrillation Hypertension Continue with Lopressor Oral anticoagulation contraindicated secondary to intracranial bleed Benign prosthetic hyperplasia Continue with Flomax Noriega care Diabetes mellitus - hemoglobin A1c 6.0 Dysphagia r/o Barium swallow study normal Urinary tract infection Start Azactam 1 g IV every 12H today 12/02/16 pending urine culture Prophylaxis - GI - lanosprazole DVT - SCD/pharmacological prophylaxis when okay with neurosurgery Chay Veliz MD Dec 02, 2016 11:27
[2016-12-02] MEDS: AZTREONAM INJ 2,000 MG in SODIUM CHLORIDE 0.9% INJ 100 ML IV SCH (13:15)
--- NOTE | 2016-12-02 16:35 | HHI.NSPN ---
([facility]) History Chief Complaint: Unable to obtain due to patient's clinical condition. ([facility]) Interval History 11/09: 80-year-old male who according to his family was going up a step into the house with his cane when he fell backwards, striking the back of his head. He was reportedly unconscious for 10-15 minutes. He then had some shaking in the extremities as he was waking up. He has been somewhat sleepy and a little confused since he woke up at the patient's family states that he is conversing reasonably well with them. He normally is fairly independent, ambulating with a cane and is usually mentally alert with only mild memory loss. Positive emesis reported. Patient has no complaint of headache or neck pain. No complaint of low back or joint pain. 11/10: nursing reports agitated overnight, currently sleeping. f/u CT Head completed, moves all four extremities. son translated - oriented to name and place only. 11/11: Notified by PARVIN Stoner, that Nursing had notified her that the patient's mental status was worse this morning and that she had ordered a stat CT brain. When seen this morning the patient is obtunded and not answering to verbal stimuli. Nursing reports that CT had called and was sending someone up to transport the patient to the scanner. She stated that the patient did receive morphine and hydrocodone during the night for pain because he was agitated. 11/12: The patient has been intubated this morning due to persistent decreased mental status. Possibly a few more episodes of seizure activity reported last evening. He is continuing on Dilantin and Keppra for seizures. 11/13: The patient still is intubated, mechanically ventilated and sedated with midazolam. He does not respond to noxious stimulation. The EEG done yesterday morning did demonstrate seizure activity. Neurology evaluated the patient yesterday and adjusted his anti-epileptic medications. An EEG was done this morning prior to the patient being seen. 11/14: The patient remains intubated. A midazolam drip is still infusing as is a fentanyl drip. A repeat Ct brain this morning demonstrated evolving contusions and haemorrhages. 11/15: The patient is intubated without any sedation. The midazolam and fentanyl infusions were discontinued yesterday. A 3% saline drip continues to infuse. He did have a slight twitching of the eyelids when his name was called but no eye opening. 11/16: This morning the patient opened his eyes to verbal stimulation. He continues to be intubated without any sedation. 11/17/16: Patient remains intubated. He had a dose of intravenous sedation last night for agitation. Remains relatively alert. Positive fever last evening. Some difficulty with hemodynamic instability last evening. 11/18: The patient is on a cooling blanket with ice packs when seen this morning. He continues to be intubated. He does look to whomever is speaking and did follow commands. 11/19: The patient is asleep but awakens on his own. He was extubated this morning and is now on a nasal cannula. He follows commands and moves all his extremities to a degree. He does tell his daughter that he is tired. The family reports earlier that the patient did ask where his and son were by name. 11/20: When seen this afternoon the patient had just been transferred to a regular med/surg floor. He appears mildly distressed and is moaning. His daughter states that he has said he has pain all over. 11/21: Notified by [facility] physician (Dr Mejia, PGY1) that patient was having increased respiratory effort. He reported that the patient's oxygen saturation was satisfactory but the chest x-ray demonstrated fluid overload. Therefore 40 mg furosemide IV was ordered as was a nebuliser treatment. When seen the patient appeared moderately distress and had just received the furosemide with the nebuliser treatment ongoing. The Charge Nurse reported that the patient was lethargic and not responding to commands. He reported that the Strip Machine Tender is aware that the patient is being transferred to [facility] for further care and management. The Hospitalist was present and evaluating the patient. 11/22: Patient not opening eyes or following commands. Not verbalizing. 11/23: Pt opens eyes and tracks around room. He is restless. Not following commands for staff or reportedly family. Pt not verbalizing. 11/24: This morning the patient is awake and tracks. He is noted to move the upper extremities spontaneously. He moans but there is no other verbalisation. The son did state that yesterday he was talking quite a bit. When asked the son states that he has no complaint of pain but says that he feels tired all the time. 11/25: The patient is drowsy when seen this afternoon. He does squeeze with the right hand mimicking it demonstrated, otherwise he responded to local noxious stimulation. He did attempt to verbalise a few words. 11/26: The patient is initially seen with Dr Godfrey this morning and is lethargic. His daughter reports that he will not wake up to eat breakfast. This afternoon when seen the patient remains lethargic and minimally responsive to noxious stimulation. His daughter reported that the patient was up for the whole night, not last night but the night before. 11/27: This morning the patient remains lethargic. His daughter reports that he did briefly wake some yesterday and she was able to feed him but not today. 11/28: The patient is drowsy this morning. He does awaken to voice and looks at this practitioner. The son states that the patient didn't know him this morning. He did say the patient did squeeze with his right hand and moved it spontaneously and would grab the covers and move them. He does say that the patient did not move any of his other extremities. The patient did eat well this morning according to the son. The son did have to feed the patient. The patient had a repeat CT brain yesterday due to his continued lethargy/ drowsiness which demonstrated continued evolution of the bilateral intraparenchymal haemorrhages with the subdural haemorrhages decreasing. 11/29: family in room, says pt doing well, she would like to try to fly him back to [facility] for more medical care following completion of rehab 11/30: appears more awake today, son would like to try to have patient brought back to [facility] following discharge. 12/01: The patient is awake today when seen. After the daughter told him who I was he responded with "Daniel doctor." He did follow some some commands. In speaking with the daughter the plan is to take her father back home in 3 to 4 weeks, basically once all the arrangements have been made. When asked about transferring to [facility] she said that the family wanted him to stay here until the arrangements have been made. Notified this morning by PARVIN Valdez, that Dr Navarrete had notified him that there is a physician in [place] that would like to speak with Dr Godfrey regarding the patient and that the telephone number is on the chart. 12/02: When seen this afternoon the patient is awake and alert. He does respond and grasps this practitioner's hand in greeting it seems. He does not verbalise. He did have a repeat CT brain yesterday afternoon which demonstrated evolving haemorrhages. (Brennon White) System Review Comments Unable to obtain due to patient's clinical condition. (Brennon White) Exam Results 11/30/16 11/30/16 12/01/16 12/01/16 12/02/16 12/02/16 05:59 17:59 05:59 17:59 05:59 17:59 Intake Total 152 ml 450 ml Output Total 300 ml 2325 ml 500 ml 1250 ml 1900 ml 1000 ml Balance -148 ml -2325 ml -50 ml -1250 ml -1900 ml -1000 ml Intake Oral 450 ml IV Total 152 ml Output Urine Total 300 ml 2325 ml 500 ml 1250 ml 1900 ml 1000 ml # Bowel Movements 2 5 Vital Signs Date Time Temp Pulse Resp B/P (MAP) Pulse Ox O2 Delivery O2 Flow Rate FiO2 12/02/16 16:00 97.3 103 20 127/66 (86) 98 12/02/16 12:00 98.0 103 20 147/67 (93) 95 12/02/16 08:00 97.4 107 20 152/74 (100) 97 12/02/16 05:26 97.9 101 19 144/74 (97) 96 12/02/16 00:08 97.2 85 20 131/64 (86) 100 12/01/16 21:30 96 Nasal Cannula 2.00 Humidified 12/01/16 20:00 97.2 95 20 139/65 (89) 98 12/01/16 16:00 98.1 98 20 147/70 (95) 98 12/01/16 12:00 97.6 97 20 138/69 (92) 97 12/01/16 08:00 97.4 95 20 145/74 (97) 96 12/01/16 07:00 Nasal Cannula 2.00 12/01/16 04:00 97.6 97 19 143/75 (97) 97 12/01/16 00:40 98.4 88 19 140/60 (86) 96 11/30/16 22:00 97.7 98 19 141/68 (92) 96 11/30/16 22:00 Nasal Cannula 2.00 Humidified 11/30/16 16:00 98.1 99 20 132/63 (86) 97 11/30/16 12:00 98.1 98 20 127/66 (86) 97 11/30/16 08:00 98.2 66 20 142/67 (92) 96 11/30/16 07:31 96 Nasal Cannula 2.00 Humidified 11/30/16 04:00 98.2 89 18 128/60 (82) 95 11/30/16 00:00 97.4 87 18 114/54 (74) 96 11/30/16 00:00 97 Nasal Cannula 2.00 11/29/16 21:21 99 Nasal Cannula 2.00 11/29/16 20:00 97.4 92 18 129/73 (91) 96 (Brennon White) Physical Examination GENERAL: Patient awake & alert, readily interacts, no apparent distress. SKIN: Warm, dry & intact w/o any evident rashes, ulcerations or lesions. HEENT: Normocephalic, atraumatic. NECK: No JVD, trachea midline. CARDIOVASCULAR: S1S2 w/RRR w/o M/G/R, radial & pedal pulses 2+ bilaterally, cap refill < 2 sec, 1+ pedal edema bilaterally. RESPIRATORY: Essentially clear bilaterally, equal excursion, nonlaboured, on NC. GASTROINTESTINAL: Abdomen soft, nontender, positive bowel sounds. MUSCULOSKELETAL: No evident deformity or clubbing. NEUROLOGICAL: Awake & alert, readily interacts. GCS 13 (E4 V3 M6). Moans only, no verbalisation otherwise. Follow simple commands. He is noted to spontaneously move the LUE. 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 Unable to assess sensation. (Brennon White) Lab, Micro, Other Results Recent Impressions Head CT 12/01/16 0000 Signed Impressions: Service Date/Time: Thursday, December 01, 2016 13:14 - CONCLUSION: Evolving intracranial hemorrhagic foci as above, both intra-axial and extra-axial. Jesus Lee MD Chest X-Ray 12/01/16 0000 Signed Impressions: Service Date/Time: Thursday, December 01, 2016 11:38 - CONCLUSION: 1. Small bilateral effusions with consolidative changes in the left lower lobe and diffuse interstitial prominence. Exam would suggest congestive failure. Study is stable compared to prior dated 11/27/16. Anthony Burns MD Upper Extremity Ultrasound 11/30/16 0000 Signed Impressions: Service Date/Time: Wednesday, November 30, 2016 18:49 - CONCLUSION: 1. Superficial venous thrombosis. 2. No deep venous thrombosis. Cj Isidro MD Modified Barium Swallow 11/30/16 0000 Signed Impressions: Service Date/Time: Wednesday, November 30, 2016 00:00 - CONCLUSION: Please refer to speech pathology report for full details. Lonnie Cook MD Laboratory Tests Test 11/30/16 13:30 12/01/16 14:49 12/01/16 21:30 12/02/16 08:30 Creatinine 0.66 MG/DL 0.66 MG/DL 0.47 MG/DL Estimat Glomerular Filtration Rate 116 ML/MIN 116 ML/MIN 171 ML/MIN Vancomycin Level Trough 8.0 MCG/ML White Blood Count 11.6 TH/MM3 Red Blood Count 3.36 MIL/MM3 Hemoglobin 9.7 GM/DL Hematocrit 30.1 % Mean Corpuscular Volume 89.5 FL Mean Corpuscular Hemoglobin 28.8 PG Mean Corpuscular Hemoglobin Concent 32.1 % Red Cell Distribution Width 19.5 % Platelet Count 347 TH/MM3 Mean Platelet Volume 6.7 FL Neutrophils (%) (Auto) 15.1 % Lymphocytes (%) (Auto) 75.3 % Monocytes (%) (Auto) 8.4 % Eosinophils (%) (Auto) 1.1 % Basophils (%) (Auto) 0.1 % Neutrophils # (Auto) 1.7 TH/MM3 Lymphocytes # (Auto) 8.7 TH/MM3 Monocytes # (Auto) 1.0 TH/MM3 Eosinophils # (Auto) 0.1 TH/MM3 Basophils # (Auto) 0.0 TH/MM3 CBC Comment AUTO DIFF Differential Total Cells Counted 100 Neutrophils % (Manual) 15 % Lymphocytes % 81 % Monocytes % 2 % Eosinophils % 1 % Neutrophils # (Manual) 1.7 TH/MM3 Differential Comment FINAL DIFF MANUAL Atypical Lymphocytes % Blastocytes 1 % Smudge Cells PRESENT Platelet Estimate NORMAL Platelet Morphology Comment NORMAL Ovalocytes 1+ Keratocytes OCC Blood Urea Nitrogen 15 MG/DL Random Glucose 226 MG/DL Calcium Level 8.2 MG/DL Sodium Level 135 MEQ/L Potassium Level 3.8 MEQ/L Chloride Level 101 MEQ/L Carbon Dioxide Level 27.0 MEQ/L Anion Gap 7 MEQ/L Ammonia 18 MCMOL/L Urine Color YELLOW Urine Turbidity CLOUDY Urine pH 5.5 Urine Specific [place] 1.022 Urine Protein 30 mg/dL Urine Glucose (UA) NEG mg/dL Urine Ketones NEG mg/dL Urine Occult Blood TRACE Urine Nitrite NEG Urine Bilirubin NEG Urine Urobilinogen 4.0 MG/DL Urine Leukocyte Esterase LARGE Urine RBC 165 /hpf Urine WBC 148 /hpf Urine Squamous Epithelial Cells 1 /hpf Urine Amorphous Sediment RARE Urine Mucus FEW /lpf Urine Yeast (Budding) MANY Microscopic Urinalysis Comment CATH-CULTURE IND (Brennon White) Medical Decision Making Impression and Plan Impression: 1. Traumatic brain injury 2. Hypertension 3. Diabetes 4. Respiratory failure 5. Seizures Patient maintaining airway, neuro exam with slight improvement o/w stable. CT brain with continued evolution of intraparenchymal haemorrhages and decrease in the subdurals. CT brain demonstrates evolving haemorrhages. Plan: Medical management per Hospitalist. Continue neuro checks. Non-chemical DVT prophylaxis. Ulcer prophylaxis. Appreciate Hospitalist's input and assistance. Patient is able to be discharged for further rehab from NSGY's perspective. (Brennon White) Attending Statement The exam, history, and the medical decision-making described in the above note were completed with the assistance of the mid-level provider. I reviewed and agree with the findings presented. I attest that I had a [id number] encounter with the patient on the same day, and personally performed and documented my assessment and findings in the medical record. Neurologic exam fluctuates but gradually improving Stable for discharge with arrangements made (Tony Godfrey MD) Brennon White Dec 02, 2016 16:35 Tony Godfrey MD Dec 15, 2016 05:37
[2016-12-02] MEDS: VANCOMYCIN INJ 1,750 MG in SODIUM CHLORID 0.9% 500 ML INJ 500 ML IV SCH (18:53)
[2016-12-02] MEDS: TAMSULOSIN HCL 0.4 MG CAP PO SCH (20:53)
[2016-12-02] MEDS: MUPIROCIN 2% CREAM 15 GM TOPICAL SCH (20:53)
[2016-12-03] MEDS: AZTREONAM INJ 2,000 MG in SODIUM CHLORIDE 0.9% INJ 100 ML IV SCH ×2 (00:04→12:00)
[2016-12-03] MEDS: PHENYTOIN SODIUM 100 MG CAP PO SCH ×4 (00:05→18:11)
--- NOTE | 2016-12-03 01:53 | RADRPT ---
EXAM DATE/TIME: 12/03/2016 00:53 [facility] COMPARISON: No previous studies available for comparison. INDICATIONS : Right arm swelling. MEDICAL HISTORY : Atrial fibrillation. Nausea. Vomiting. Diabetes. Chemotherapy. SURGICAL HISTORY : Neck surgery for cancer removal. Cardiac catheterization. ENCOUNTER: Subsequent ACUITY: 1 day PAIN SCORE: Non-responsive LOCATION: Right arm. FINDINGS: The examination is positive for occlusive deep venous thrombosis in the cephalic and basilic vein on the right. Internal jugular, subclavian, axillary and brachial veins are patent. CONCLUSION: 1. Occlusive DVT in the cephalic and basilic vein on the right. Alex Goode MD on December 03, 2016 at 1:51 Board Certified Radiologist. This report was verified electronically.
[2016-12-03 04:00] VITALS: BP 115/57; PULSE 104; RESP 18; TEMP 97.9; O2SAT 96
[2016-12-03] MEDS: levETIRAcetam 500 MG TAB PO SCH ×3 (05:25→21:21)
[2016-12-03 08:00] VITALS: BP 123/58; PULSE 107; RESP 15; TEMP 98.1; O2SAT 97
[2016-12-03] MEDS: CHLORHEXIDINE 0.12% (ORAL KIT) 15 ML CUP MT SCH ×2 (08:00→20:00)
[2016-12-03] MEDS: LACTULOSE SYRUP 20 GM/30 ML CUP PO SCH (09:00)
[2016-12-03] MEDS: SENNOSIDES SYRUP 8.8 MG/5 ML CUP NG SCH ×2 (09:00→21:00)
[2016-12-03] MEDS: ARTIFICIAL TEARS OPTH SOLN 15 ML BTL EACH EYE SCH ×3 (09:00→18:00)
[2016-12-03] MEDS: DOCUSATE SODIUM 100 MG/10 ML UDC PO SCH ×2 (09:00→21:00)
[2016-12-03] MEDS: LANSOPRAZOLE SOLUTAB 30 MG TAB NG SCH (09:00)
[2016-12-03] MEDS: MUPIROCIN 2% CREAM 15 GM TOPICAL SCH ×2 (09:00→21:22)
[2016-12-03] MEDS: SODIUM CHLORIDE 0.9% FLUSH 10 ML FLUSH IV FLUSH SCH ×2 (09:00→21:00)
[2016-12-03] MEDS: POLYETHYLENE GLYCOL 17 GM PKG OG-TUBE SCH ×2 (09:00→21:00)
[2016-12-03] MEDS: SODIUM CHLORIDE 0.9% FLUSH 10 ML FLUSH IVF SCH (09:00)
[2016-12-03] MEDS: CALCIUM CARBONATE 500 MG CHEWABLE TAB CHEW SCH ×2 (09:12→21:21)
[2016-12-03] MEDS: MEGESTROL ACETATE SUSP 400 MG/10 ML CUP PO SCH (09:12)
[2016-12-03] MEDS: FINASTERIDE 5 MG TAB PO SCH (09:13)
[2016-12-03] MEDS: TOLTERODINE TARTRATE 2 MG CAP LA PO SCH (09:13)
[2016-12-03] MEDS: METOPROLOL TARTRATE 25 MG TAB PO SCH ×2 (09:13→21:21)
[2016-12-03] MEDS: INSULIN ASPART SUPPLEMENTAL SCALE SQ SCH ×4 (09:15→21:00)
[2016-12-03] MEDS: FUROSEMIDE 40 MG/4 ML VIAL IV PUSH SCH (10:28)
--- NOTE | 2016-12-03 10:58 | HHI.NSPN ---
([facility]) History Chief Complaint: Unable to obtain due to patient's clinical condition. ([facility]) Interval History 11/09: 80-year-old male who according to his family was going up a step into the house with his cane when he fell backwards, striking the back of his head. He was reportedly unconscious for 10-15 minutes. He then had some shaking in the extremities as he was waking up. He has been somewhat sleepy and a little confused since he woke up at the patient's family states that he is conversing reasonably well with them. He normally is fairly independent, ambulating with a cane and is usually mentally alert with only mild memory loss. Positive emesis reported. Patient has no complaint of headache or neck pain. No complaint of low back or joint pain. 11/10: nursing reports agitated overnight, currently sleeping. f/u CT Head completed, moves all four extremities. son translated - oriented to name and place only. 11/11: Notified by PARVIN Stoner, that Nursing had notified her that the patient's mental status was worse this morning and that she had ordered a stat CT brain. When seen this morning the patient is obtunded and not answering to verbal stimuli. Nursing reports that CT had called and was sending someone up to transport the patient to the scanner. She stated that the patient did receive morphine and hydrocodone during the night for pain because he was agitated. 11/12: The patient has been intubated this morning due to persistent decreased mental status. Possibly a few more episodes of seizure activity reported last evening. He is continuing on Dilantin and Keppra for seizures. 11/13: The patient still is intubated, mechanically ventilated and sedated with midazolam. He does not respond to noxious stimulation. The EEG done yesterday morning did demonstrate seizure activity. Neurology evaluated the patient yesterday and adjusted his anti-epileptic medications. An EEG was done this morning prior to the patient being seen. 11/14: The patient remains intubated. A midazolam drip is still infusing as is a fentanyl drip. A repeat Ct brain this morning demonstrated evolving contusions and haemorrhages. 11/15: The patient is intubated without any sedation. The midazolam and fentanyl infusions were discontinued yesterday. A 3% saline drip continues to infuse. He did have a slight twitching of the eyelids when his name was called but no eye opening. 11/16: This morning the patient opened his eyes to verbal stimulation. He continues to be intubated without any sedation. 11/17/16: Patient remains intubated. He had a dose of intravenous sedation last night for agitation. Remains relatively alert. Positive fever last evening. Some difficulty with hemodynamic instability last evening. 11/18: The patient is on a cooling blanket with ice packs when seen this morning. He continues to be intubated. He does look to whomever is speaking and did follow commands. 11/19: The patient is asleep but awakens on his own. He was extubated this morning and is now on a nasal cannula. He follows commands and moves all his extremities to a degree. He does tell his daughter that he is tired. The family reports earlier that the patient did ask where his and son were by name. 11/20: When seen this afternoon the patient had just been transferred to a regular med/surg floor. He appears mildly distressed and is moaning. His daughter states that he has said he has pain all over. 11/21: Notified by [facility] physician (Dr Mejia, PGY1) that patient was having increased respiratory effort. He reported that the patient's oxygen saturation was satisfactory but the chest x-ray demonstrated fluid overload. Therefore 40 mg furosemide IV was ordered as was a nebuliser treatment. When seen the patient appeared moderately distress and had just received the furosemide with the nebuliser treatment ongoing. The Charge Nurse reported that the patient was lethargic and not responding to commands. He reported that the Underpresser Hand is aware that the patient is being transferred to [facility] for further care and management. The Hospitalist was present and evaluating the patient. 11/22: Patient not opening eyes or following commands. Not verbalizing. 11/23: Pt opens eyes and tracks around room. He is restless. Not following commands for staff or reportedly family. Pt not verbalizing. 11/24: This morning the patient is awake and tracks. He is noted to move the upper extremities spontaneously. He moans but there is no other verbalisation. The son did state that yesterday he was talking quite a bit. When asked the son states that he has no complaint of pain but says that he feels tired all the time. 11/25: The patient is drowsy when seen this afternoon. He does squeeze with the right hand mimicking it demonstrated, otherwise he responded to local noxious stimulation. He did attempt to verbalise a few words. 11/26: The patient is initially seen with Dr Godfrey this morning and is lethargic. His daughter reports that he will not wake up to eat breakfast. This afternoon when seen the patient remains lethargic and minimally responsive to noxious stimulation. His daughter reported that the patient was up for the whole night, not last night but the night before. 11/27: This morning the patient remains lethargic. His daughter reports that he did briefly wake some yesterday and she was able to feed him but not today. 11/28: The patient is drowsy this morning. He does awaken to voice and looks at this practitioner. The son states that the patient didn't know him this morning. He did say the patient did squeeze with his right hand and moved it spontaneously and would grab the covers and move them. He does say that the patient did not move any of his other extremities. The patient did eat well this morning according to the son. The son did have to feed the patient. The patient had a repeat CT brain yesterday due to his continued lethargy/ drowsiness which demonstrated continued evolution of the bilateral intraparenchymal haemorrhages with the subdural haemorrhages decreasing. 11/29: family in room, says pt doing well, she would like to try to fly him back to [facility] for more medical care following completion of rehab 11/30: appears more awake today, son would like to try to have patient brought back to [facility] following discharge. 12/01: The patient is awake today when seen. After the daughter told him who I was he responded with "Daniel doctor." He did follow some some commands. In speaking with the daughter the plan is to take her father back home in 3 to 4 weeks, basically once all the arrangements have been made. When asked about transferring to [facility] she said that the family wanted him to stay here until the arrangements have been made. Notified this morning by PARVIN Valdez, that Dr Navarrete had notified him that there is a physician in [facility] that would like to speak with Dr Godfrey regarding the patient and that the telephone number is on the chart. 12/02: When seen this afternoon the patient is awake and alert. He does respond and grasps this practitioner's hand in greeting it seems. He does not verbalise. He did have a repeat CT brain yesterday afternoon which demonstrated evolving haemorrhages. 12/03:This morning the patient is awake. He does try to verbalise a couple words but it is garbled. Nursing reports that the patient has had diarrhea and held the docusate and lactulose. The patient had an ultrasound of the right upper extremity yesterday which did demonstrated occlusive thrombus to the cephalic and basilic veins. (Brennon White) System Review Comments Unable to obtain due to patient's clinical condition. (Brennon White) Exam Results 12/01/16 12/01/16 12/02/16 12/02/16 12/03/16 12/03/16 06:00 18:00 06:00 18:00 06:00 18:00 Intake Total 450 ml Output Total 500 ml 1250 ml 1900 ml 1000 ml 1000 ml 400 ml Balance -50 ml -1250 ml -1900 ml -1000 ml -1000 ml -400 ml Intake Oral 450 ml Output Urine Total 500 ml 1250 ml 1900 ml 1000 ml 1000 ml 400 ml # Bowel Movements 5 2 Vital Signs Date Time Temp Pulse Resp B/P (MAP) Pulse Ox O2 Delivery O2 Flow Rate FiO2 12/03/16 08:00 98.1 107 15 123/58 (79) 97 12/03/16 04:00 97.9 104 18 115/57 (76) 96 12/02/16 23:31 97 Nasal Cannula 2.00 12/02/16 23:00 98.2 101 18 132/60 (84) 97 12/02/16 20:00 98.3 105 20 138/70 (92) 97 12/02/16 16:00 97.3 103 20 127/66 (86) 98 12/02/16 12:00 98.0 103 20 147/67 (93) 95 12/02/16 08:00 97.4 107 20 152/74 (100) 97 12/02/16 05:26 97.9 101 19 144/74 (97) 96 12/02/16 00:08 97.2 85 20 131/64 (86) 100 12/01/16 21:30 96 Nasal Cannula 2.00 Humidified 12/01/16 20:00 97.2 95 20 139/65 (89) 98 12/01/16 16:00 98.1 98 20 147/70 (95) 98 12/01/16 12:00 97.6 97 20 138/69 (92) 97 12/01/16 08:00 97.4 95 20 145/74 (97) 96 12/01/16 07:00 Nasal Cannula 2.00 12/01/16 04:00 97.6 97 19 143/75 (97) 97 12/01/16 00:40 98.4 88 19 140/60 (86) 96 11/30/16 22:00 97.7 98 19 141/68 (92) 96 11/30/16 22:00 Nasal Cannula 2.00 Humidified 11/30/16 16:00 98.1 99 20 132/63 (86) 97 11/30/16 12:00 98.1 98 20 127/66 (86) 97 (Brennon White) Physical Examination GENERAL: Patient awake & fairly alert, interacts w/some coaxing, no apparent distress. SKIN: Warm, dry & intact w/o any evident rashes, ulcerations or lesions. HEENT: Normocephalic, atraumatic. NECK: No JVD, trachea midline. CARDIOVASCULAR: S1S2 w/RRR w/o M/G/R, radial & pedal pulses 2+ bilaterally, cap refill < 2 sec, 1+ pedal edema bilaterally. RESPIRATORY: Essentially clear bilaterally, equal excursion, nonlaboured, on NC. GASTROINTESTINAL: Abdomen soft, nontender, positive bowel sounds. MUSCULOSKELETAL: No evident deformity or clubbing. NEUROLOGICAL: Awake & alert, readily interacts. GCS 13 (E4 V3 M6). Attempts to verbalis a couple words but garbled. Follow simple commands. He does spontaneously move the LUE. Slight squeeze with the left hand and trace movement of the left foot to command , no response on right. Unable to assess sensation. (Brennon White) Lab, Micro, Other Results Recent Impressions Upper Extremity Ultrasound 12/02/16 0000 Signed Impressions: Service Date/Time: Saturday, December 03, 2016 00:53 - CONCLUSION: 1. Occlusive DVT in the cephalic and basilic vein on the right. Alex Goode MD Head CT 12/01/16 0000 Signed Impressions: Service Date/Time: Thursday, December 01, 2016 13:14 - CONCLUSION: Evolving intracranial hemorrhagic foci as above, both intra-axial and extra-axial. Jesus Lee MD Chest X-Ray 12/01/16 0000 Signed Impressions: Service Date/Time: Thursday, December 01, 2016 11:38 - CONCLUSION: 1. Small bilateral effusions with consolidative changes in the left lower lobe and diffuse interstitial prominence. Exam would suggest congestive failure. Study is stable compared to prior dated 11/27/16. Anthony Burns MD Laboratory Tests Test 11/30/16 13:30 12/01/16 14:49 12/01/16 21:30 12/02/16 08:30 Creatinine 0.66 MG/DL 0.66 MG/DL 0.47 MG/DL Estimat Glomerular Filtration Rate 116 ML/MIN 116 ML/MIN 171 ML/MIN Vancomycin Level Trough 8.0 MCG/ML White Blood Count 11.6 TH/MM3 Red Blood Count 3.36 MIL/MM3 Hemoglobin 9.7 GM/DL Hematocrit 30.1 % Mean Corpuscular Volume 89.5 FL Mean Corpuscular Hemoglobin 28.8 PG Mean Corpuscular Hemoglobin Concent 32.1 % Red Cell Distribution Width 19.5 % Platelet Count 347 TH/MM3 Mean Platelet Volume 6.7 FL Neutrophils (%) (Auto) 15.1 % Lymphocytes (%) (Auto) 75.3 % Monocytes (%) (Auto) 8.4 % Eosinophils (%) (Auto) 1.1 % Basophils (%) (Auto) 0.1 % Neutrophils # (Auto) 1.7 TH/MM3 Lymphocytes # (Auto) 8.7 TH/MM3 Monocytes # (Auto) 1.0 TH/MM3 Eosinophils # (Auto) 0.1 TH/MM3 Basophils # (Auto) 0.0 TH/MM3 CBC Comment AUTO DIFF Differential Total Cells Counted 100 Neutrophils % (Manual) 15 % Lymphocytes % 81 % Monocytes % 2 % Eosinophils % 1 % Neutrophils # (Manual) 1.7 TH/MM3 Differential Comment FINAL DIFF MANUAL Atypical Lymphocytes % Blastocytes 1 % Smudge Cells PRESENT Platelet Estimate NORMAL Platelet Morphology Comment NORMAL Ovalocytes 1+ Keratocytes OCC Blood Urea Nitrogen 15 MG/DL Random Glucose 226 MG/DL Calcium Level 8.2 MG/DL Sodium Level 135 MEQ/L Potassium Level 3.8 MEQ/L Chloride Level 101 MEQ/L Carbon Dioxide Level 27.0 MEQ/L Anion Gap 7 MEQ/L Ammonia 18 MCMOL/L Urine Color YELLOW Urine Turbidity CLOUDY Urine pH 5.5 Urine Specific [place] 1.022 Urine Protein 30 mg/dL Urine Glucose (UA) NEG mg/dL Urine Ketones NEG mg/dL Urine Occult Blood TRACE Urine Nitrite NEG Urine Bilirubin NEG Urine Urobilinogen 4.0 MG/DL Urine Leukocyte Esterase LARGE Urine RBC 165 /hpf Urine WBC 148 /hpf Urine Squamous Epithelial Cells 1 /hpf Urine Amorphous Sediment RARE Urine Mucus FEW /lpf Urine Yeast (Budding) MANY Microscopic Urinalysis Comment CATH-CULTURE IND (Brennon White) Medical Decision Making Impression and Plan Impression: 1. Traumatic brain injury 2. Hypertension 3. Diabetes 4. Respiratory failure 5. Seizures Patient maintaining airway, neuro exam stable. CT brain with continued evolution of intraparenchymal haemorrhages and decrease in the subdurals. CT brain demonstrates evolving haemorrhages. Occlusive DVT to right cephalic & basilic veins. Plan: Medical management per Hospitalist. Continue neuro checks. Ulcer prophylaxis. Appreciate Hospitalist's input and assistance. Patient is able to be discharged for further rehab from NSGY's perspective. (Brennon White) Attending Statement The exam, history, and the medical decision-making described in the above note were completed with the assistance of the mid-level provider. I reviewed and agree with the findings presented. I attest that I had a [id number] encounter with the patient on the same day, and personally performed and documented my assessment and findings in the medical record. Neurologic exam gradually improving Continuing respiratory treatments as needed Ongoing discussions with family regarding discharge plans (Tony Godfrey MD) Brennon White Dec 03, 2016 10:58 Tony Godfrey MD Dec 15, 2016 05:38
--- NOTE | 2016-12-03 11:53 | HHI.PR ---
Subjective Remarks Follow-up traumatic brain injury/intraparenchymal hemorrhage/subdural hemorrhaging/acute respiratory insufficiency/metabolic encephalopathy 11/29/16-patient seen and examined, daughter by the bedside. He is responding to daughter's cues. Per daughter, patient seems to be more alert. Like patient to be transferred back to [facility] in 2-3 weeks after discharge, and she is wondering if he can make it on a special plane 11/30/16-patient seen and examined, patient much more alert today. Appears to be choking on his food. Son By the Bedside 12/01/16-patient seen and examined; he appears more drowsy and lethargic today. Doppler left upper extremity positive for superficial venous thrombosis. Afebrile. Daughter by the bedside 12/02/16-patient seen and examined much more alert today. UA positive. Afebrile. WBC up. Daughter by the bedside 12/03/16-patient seen and examined alert however showing discomfort from Noriega. Daughter by the bedside Objective Vitals Vital Signs Date Time Temp Pulse Resp B/P (MAP) Pulse Ox O2 Delivery O2 Flow Rate FiO2 12/03/16 08:00 98.1 107 15 123/58 (79) 97 12/03/16 04:00 97.9 104 18 115/57 (76) 96 12/02/16 23:31 97 Nasal Cannula 2.00 12/02/16 23:00 98.2 101 18 132/60 (84) 97 12/02/16 20:00 98.3 105 20 138/70 (92) 97 12/02/16 16:00 97.3 103 20 127/66 (86) 98 12/02/16 12:00 98.0 103 20 147/67 (93) 95 I/O 12/02/16 12/02/16 12/02/16 12/03/16 12/03/16 12/03/16 07:00 15:00 23:00 07:00 15:00 23:00 Output Total 1100 ml 2000 ml 400 ml Balance -1100 ml -2000 ml -400 ml Output Urine Total 1100 ml 2000 ml 400 ml # Bowel Movements 2 Result Diagram: 12/01/16 1449 12/02/16 0830 Imaging Last Impressions Upper Extremity Ultrasound 12/02/16 0000 Signed Impressions: Service Date/Time: Saturday, December 03, 2016 00:53 - CONCLUSION: 1. Occlusive DVT in the cephalic and basilic vein on the right. Alex Goode MD Head CT 12/01/16 0000 Signed Impressions: Service Date/Time: Thursday, December 01, 2016 13:14 - CONCLUSION: Evolving intracranial hemorrhagic foci as above, both intra-axial and extra-axial. Jesus Lee MD Chest X-Ray 12/01/16 0000 Signed Impressions: Service Date/Time: Thursday, December 01, 2016 11:38 - CONCLUSION: 1. Small bilateral effusions with consolidative changes in the left lower lobe and diffuse interstitial prominence. Exam would suggest congestive failure. Study is stable compared to prior dated 11/27/16. Anthony Burns MD Modified Barium Swallow 11/30/16 0000 Signed Impressions: Service Date/Time: Wednesday, November 30, 2016 00:00 - CONCLUSION: Please refer to speech pathology report for full details. Lonnie Cook MD Transcranial Doppler Study Complete 11/17/16 0000 Signed Impressions: Service Date/Time: Thursday, November 17, 2016 10:03 - CONCLUSION: 1. Nondiagnostic examination due to poor transcranial windows. Konstantin Dash MD Abdomen X-Ray 11/12/16 0000 Signed Impressions: Service Date/Time: Saturday, November 12, 2016 08:23 - CONCLUSION: 1. Gastric tube in good position. 2. Probable right renal stones. Narayan Coulter MD Cervical Spine CT 11/09/161950 Signed Impressions: Service Date/Time: Wednesday, November 09, 2016 20:14 - CONCLUSION: Negative trauma CT. Cj Isidro MD Objective Remarks GENERAL: NAD , somehow lethargic but easily arousable SKIN: Warm and dry. HEAD: Normocephalic. EYES: No scleral icterus. No injection or drainage. NECK: Supple, trachea midline. No JVD or lymphadenopathy. CARDIOVASCULAR: Regular rate and rhythm without murmurs, gallops, or rubs. RESPIRATORY: Breath sounds equal bilaterally. No accessory muscle use. GASTROINTESTINAL: Abdomen soft, non-tender, nondistended. MUSCULOSKELETAL: No cyanosis, or edema. BACK: Nontender without obvious deformity. No CVA tenderness. Date of Insertion: Nov 12, 2016 Line: Central Venous Catheter Side: Right Location: Internal, Jugular A/P Problem List: (1) Subdural hematoma ICD Code: I62.00 - Nontraumatic subdural hemorrhage, unspecified Status: Acute (2) Diabetes ICD Code: E11.9 - Type 2 diabetes mellitus without complications (3) Leukocytosis ICD Code: D72.829 - Elevated white blood cell count, unspecified Status: Acute (4) HTN (hypertension) ICD Code: I10 - Essential (primary) hypertension Status: Chronic (5) Dysphagia ICD Code: R13.10 - Dysphagia, unspecified (6) Urinary tract infection ICD Code: N39.0 - Urinary tract infection, site not specified Assessment and Plan 80 y/o with Closed head injury Subdural hematoma Bilateral intracranial hemorrhaging -Managed by neurosurgery and no indication for surgery at this time -Neuro checks -Continue with Keppra and Dilantin by mouth; monitor level Metabolic encephalopathy-improving Recheck head CT 12/01/16 noted UA positive therefore will start patient on Azactam Acute respiratory insufficiency secondary to altered mental status Improving Continue with DuoNeb when necessary and maintain oxygen saturation above 92% Atrial fibrillation Hypertension Continue with Lopressor Oral anticoagulation contraindicated secondary to intracranial bleed Benign prosthetic hyperplasia Continue with Flomax Noriega care Diabetes mellitus - hemoglobin A1c 6.0 Occlusive DVT in cephalic vein right upper extremity Hematology consultation pending Dysphagia r/o Barium swallow study normal Urinary tract infection Continue Azactam 1 g IV every 12H Start patient on Diflucan 100 mg by mouth daily 11/26/16 secondary to been culture positive for Jane Prophylaxis - GI - lanosprazole DVT - SCD/pharmacological prophylaxis when okay with neurosurgery Chay Veliz MD Dec 03, 2016 11:53
[2016-12-03 12:00] VITALS: BP 122/61; PULSE 99; RESP 15; TEMP 98.3; O2SAT 95
[2016-12-03 16:00] VITALS: BP 136/64; PULSE 97; RESP 15; TEMP 98.3; O2SAT 96
[2016-12-03] MEDS ORDERED: PHARMACY ORDERED LAB ONE (17:45)
[2016-12-03] MEDS: BELLADONNA ALKALOIDS/OPIUM 60 MG SUPP RECTAL SCH (18:00)
[2016-12-03] MEDS: VANCOMYCIN INJ 1,750 MG in SODIUM CHLORID 0.9% 500 ML INJ 500 ML IV SCH (18:04)
[2016-12-03 20:00] VITALS: BP 140/77; PULSE 96; RESP 18; TEMP 98.1; O2SAT 99
[2016-12-03 20:07] LABS: FERRITIN 399 NG/ML (26-388); LDH SERUM 284 U/L (87-241); TRANSFERRIN IRON PROFILE 115 MG/DL (200-360)
[2016-12-03] MEDS: TAMSULOSIN HCL 0.4 MG CAP PO SCH (21:21)
--- NOTE | 2016-12-03 22:00 | MB ---
cc: TACO FERRELL MD DATE OF CONSULTATION 12/03/2016 REASON FOR HEMATOLOGY CONSULT: HISTORY OF THE PRESENT ILLNESS Mr. Garza is an 80-year-old gentleman with a history of high blood pressure, benign prostate hypertrophy, type 2 diabetes mellitus, coronary artery disease who was admitted to the hospital on November 09 after a fall at home where he fell backwards and hit the back of his head. He was unconcious after the fall and per family report experienced seizure activity prior to awakening. He had altered mental status and was brought to the hospital. Head CT scan on admission showed a small to moderate-sized subdural hematoma along the right frontal and parietal lobes measuring up to 8 mm with multiple areas of high density contusions and / or subarachnoid hemorrhage involving portions of the anterior frontal lobes, right frontal lobe and both high parietal lobes. Neurosurgery has been following the patient throughout his hospital stay. He was admitted to the Intensive Care Unit and followed with close neurologic checks. His blood pressure was managed closely. He had a complicated hospital course requiring intubation, antiepileptic medications for seizures, antibioitc therapy for infection. After extubation, he was noted to have decreased ability to breathe and was given Lasix. He was transferred again to a higher level of care due to worsening mental status. He is currently on a regular floor bed. His family reports that his mental status is improving, however his mental status is not yet at baseline. Hematology service was consulted for evaluation and management of blood clot. He was noted to have right arm swelling and he had an ultrasound that was done on November 30 which revealed a superficial venous thrombosis in the left cephalic vein extending from the proximal upper arm to the wrist. No DVT was identified at that time. Repeat ultrasound was done on December 02, 2016 which showed a occlusive deep venous thrombosis in the cephalic and basilic vein on the right. Internal jugular, subclavian, axillary and brachial veins are patent. REVIEW OF SYSTEMS Unable to obtain due to mental status. PAST MEDICAL HISTORY 1. Hypertension. 2. BPH. 3. Diabetes mellitus type 2. 4. Heart disease. PAST SURGICAL HISTORY 1. Resection of lymph node in neck that was benign. 2. Coronary artery angioplasty. FAMILY HISTORY No family history of blood clots. SOCIAL HISTORY The patient lives in this area with his son and [id number]. He has a good support system with his extended family. He was a previous smoker but quit many years ago. Denies any alcohol use and he is currently retired. ALLERGIES ALLERGY TO PENICILLIN. MEDICATIONS Current hospital medications include: 1. Aztreonam. 2. Bisacodyl. 3. Calcium carbonate. 4. Docusate. 5. Finasteride. 6. Fluconazole. 7. Lasix. 8. Hydralazine. 9. Aspart insulin. 10. Lactulose. 11. Pantoprazole. 12. Keppra. 13. Lorazepam. 14. Megace. 15. Metoprolol. 16. Midazolam. 17. Dilantin. 18. MiraLax. 19. Senna. 20. Flomax. 21. Vancomycin. PHYSICAL EXAMINATION GENERAL: elderly, frail man in no distress, sleeping in bed NECK: supple with no palpable LAD EYES: No scleral icterus CV: regular rate and rhythm with no murmurs Lungs: clear to auscultation bilaterally Abdomen: soft, nontender, nondistended, bowel sounds present Ext: bilateral lower extremities with no edema. Left arm with no swelling, peripheral IV in place. Right arm with non pitting edema. No palpable veins Neuro: sleeping during the majority of the interview. Responds to family members at bedside, smiles when asked questions, recognizes family members. Skin: no rashes, bruises ASSESSMENT AND PLAN 1. Clot of right upper extremity basilic and cephalic veins. Discussed ultrasound with radiologist. Discussed that the cephalic vein is a superficial vein that is long and drains to the subclavian vein while the basilic vein is a short segment superficial vein that drains into the brachial vein. Discussed that at this institution the basilic vein is called a deep vein due to the short segment and the drainage into the brachial vein. Ultrasound noted that the brachial vein was patent. He does have edema that is present on physical exam. Discussed with family treatment of superficial and deep upper extremity thrombosis. This includes anticoagulation for DVT of the upper extremities and consideration of anticoagulation for symptomatic superficial venous thrombosis although ideal treatment is unclear from the literature. Discussed that thrombosis was presumable due to irritation from previous IV catheter. Discussed that with any anticoagulation there is a risk fo bleeding and given the fact that he recently has had intracranial hemorrhage and is still not recovered, he would be at great risk to have worsening of the bleeding in his brain. The benefits of anticoagulation include decreased clot propagation and prevention of clot breakage and traveling to the lungs causing a pulmonary embolism. Discussed at length with family at bedside risks versus benefits of anticoagulation. Feel that the risks of anticoagulation vastly outweigh benefit. Would hold off on anticoagulation at this point in time. Would avoid having any intravenous lines placed in his right arm. Would ask for neurosurgery's comments on when it would be safe for him to be on anticoagulation 2. Anemia. Uncertain of baseline. Hemoglobin at the time of hospital admission was 10.4 and has ranged from 7.7-11.1 during this hospitalization. We will order studies for work up including vitamin B12, folate, iron studies. We will order a peripheral blood smear. 3. Intermittent leukocytosis. White blood cell count of 28.9 on admission to the hospital that has slowly declined and is 11.6 today. He is currently being treated for a urinary tract infection with blood cultures from the growing multiple bacteria in the aerobic bottle. Differential on CBC December 01 showed one blast cell. He has also intermittently had bandemia during his hospital stay. Will order repeat CBC, blood smear and flow cytometry for further evaluation. This is likely secondary due to bone marrow stress from hospitalization and infection but we will certainly rule out underlying bone marrow malignancy. MD GENEVA Ortega/SCHUYLER /5:58 PM /9:19 PM MTDMary
[2016-12-03 22:16] LABS: RETIC % 2.5 % (0.4-3.0); REVIEW FLAG FINAL
[2016-12-03 22:21] LABS: AUTOMATED NEUTROPHIL # 2.6 TH/MM3 (1.8-7.7); BASOPHIL % 0.1 % (0.0-2.0); EOSINOPHIL # 0.1 TH/MM3 (0-0.4); EOSINOPHIL % 0.7 % (0.0-4.0); HEMATOCRIT 31.5 % (39.0-51.0); LYMPH % 73.1 % (9.0-44.0); LYMPHOCYTE # 11.1 TH/MM3 (1.0-4.8); MEAN CORPUSCULAR HEMOGLOBIN 29.2 PG (27.0-34.0); MEAN CORPUSCULAR HGB CONC 32.8 % (32.0-36.0); MONO % 8.8 % (0.0-8.0); NEUT % 17.3 % (16.0-70.0); PLATELET COUNT 319 TH/MM3 (150-450); RED BLOOD COUNT 3.54 MIL/MM3 (4.50-5.90); RED CELL DISTRIBUTION WIDTH 19.4 % (11.6-17.2); WHITE BLOOD COUNT 15.2 TH/MM3 (4.0-11.0)
[2016-12-03 22:23] LABS: HEMO FLAGS AUTO DIFF
[2016-12-03 22:48] LABS: BANDS 2 % (0-6); EOSINOPHILS 2 % (0-4); NEUTROPHIL # MANUAL DIFF 3.6 TH/MM3 (1.8-7.7); POLYS (SEG NEUTROPHILS) 22 % (16-70); WBC DIFF SAMPLE 100
[2016-12-03 22:49] LABS: PLATELET ESTIMATE SMEAR NORMAL (NORMAL); PLATELET MORPHOLOGY NORMAL (NORMAL); SCAN/DIFF FINAL DIFF MANUAL
[2016-12-04] VITALS (7 sets, daily range): BP systolic 120–179; BP diastolic 55–88; PULSE 95–108; RESP 16–22; TEMP 97.9–98.8; O2SAT 93–98
[2016-12-04] MEDS: BELLADONNA ALKALOIDS/OPIUM 60 MG SUPP RECTAL SCH ×5 (00:10→23:54)
[2016-12-04] MEDS: AZTREONAM INJ 2,000 MG in SODIUM CHLORIDE 0.9% INJ 100 ML IV SCH (00:10)
[2016-12-04] MEDS: PHENYTOIN SODIUM 100 MG CAP PO SCH ×5 (00:10→23:54)
[2016-12-04] MEDS: levETIRAcetam 500 MG TAB PO SCH ×3 (06:26→21:13)
[2016-12-04] MEDS: CHLORHEXIDINE 0.12% (ORAL KIT) 15 ML CUP MT SCH ×2 (08:00→21:12)
[2016-12-04] MEDS: INSULIN ASPART SUPPLEMENTAL SCALE SQ SCH ×4 (08:00→21:12)
[2016-12-04] MEDS: LACTULOSE SYRUP 20 GM/30 ML CUP PO SCH (08:33)
[2016-12-04] MEDS: SODIUM CHLORIDE 0.9% FLUSH 10 ML FLUSH IVF SCH (08:33)
[2016-12-04] MEDS: POLYETHYLENE GLYCOL 17 GM PKG OG-TUBE SCH ×2 (08:33→21:14)
[2016-12-04] MEDS: FUROSEMIDE 40 MG/4 ML VIAL IV PUSH SCH (08:37)
[2016-12-04] MEDS: SODIUM CHLORIDE 0.9% FLUSH 10 ML FLUSH IV FLUSH SCH ×2 (08:37→21:15)
[2016-12-04] MEDS: DOCUSATE SODIUM 100 MG/10 ML UDC PO SCH ×2 (08:38→21:14)
[2016-12-04] MEDS: SENNOSIDES SYRUP 8.8 MG/5 ML CUP NG SCH (08:39)
[2016-12-04] MEDS: MEGESTROL ACETATE SUSP 400 MG/10 ML CUP PO SCH (08:39)
[2016-12-04] MEDS: TOLTERODINE TARTRATE 2 MG CAP LA PO SCH (08:40)
[2016-12-04] MEDS: METOPROLOL TARTRATE 25 MG TAB PO SCH ×2 (08:40→21:13)
[2016-12-04] MEDS: LANSOPRAZOLE SOLUTAB 30 MG TAB NG SCH (08:40)
[2016-12-04] MEDS: FINASTERIDE 5 MG TAB PO SCH (08:40)
[2016-12-04] MEDS: CALCIUM CARBONATE 500 MG CHEWABLE TAB CHEW SCH ×2 (08:40→21:15)
[2016-12-04] MEDS: ARTIFICIAL TEARS OPTH SOLN 15 ML BTL EACH EYE SCH ×3 (08:40→14:15)
[2016-12-04] MEDS: FLUCONAZOLE 100 MG TAB PO SCH (08:40)
[2016-12-04] MEDS: MUPIROCIN 2% CREAM 15 GM TOPICAL SCH ×2 (08:41→21:13)
[2016-12-04 10:04] LABS: INTERNATIONAL NORMALIZED RATIO 1.1 RATIO; PROTHROMBIN TIME - PATIENT 11.9 SEC (9.8-11.6)
--- NOTE | 2016-12-04 10:55 | HHI.NSPN ---
History Chief Complaint: Unable to obtain due to patient's clinical condition. Interval History 11/09: 80-year-old male who according to his family was going up a step into the house with his cane when he fell backwards, striking the back of his head. He was reportedly unconscious for 10-15 minutes. He then had some shaking in the extremities as he was waking up. He has been somewhat sleepy and a little confused since he woke up at the patient's family states that he is conversing reasonably well with them. He normally is fairly independent, ambulating with a cane and is usually mentally alert with only mild memory loss. Positive emesis reported. Patient has no complaint of headache or neck pain. No complaint of low back or joint pain. 11/10: nursing reports agitated overnight, currently sleeping. f/u CT Head completed, moves all four extremities. son translated - oriented to name and place only. 11/11: Notified by PARVIN Stoner, that Nursing had notified her that the patient's mental status was worse this morning and that she had ordered a stat CT brain. When seen this morning the patient is obtunded and not answering to verbal stimuli. Nursing reports that CT had called and was sending someone up to transport the patient to the scanner. She stated that the patient did receive morphine and hydrocodone during the night for pain because he was agitated. 11/12: The patient has been intubated this morning due to persistent decreased mental status. Possibly a few more episodes of seizure activity reported last evening. He is continuing on Dilantin and Keppra for seizures. 11/13: The patient still is intubated, mechanically ventilated and sedated with midazolam. He does not respond to noxious stimulation. The EEG done yesterday morning did demonstrate seizure activity. Neurology evaluated the patient yesterday and adjusted his anti-epileptic medications. An EEG was done this morning prior to the patient being seen. 11/14: The patient remains intubated. A midazolam drip is still infusing as is a fentanyl drip. A repeat Ct brain this morning demonstrated evolving contusions and haemorrhages. 11/15: The patient is intubated without any sedation. The midazolam and fentanyl infusions were discontinued yesterday. A 3% saline drip continues to infuse. He did have a slight twitching of the eyelids when his name was called but no eye opening. 11/16: This morning the patient opened his eyes to verbal stimulation. He continues to be intubated without any sedation. 11/17/16: Patient remains intubated. He had a dose of intravenous sedation last night for agitation. Remains relatively alert. Positive fever last evening. Some difficulty with hemodynamic instability last evening. 11/18: The patient is on a cooling blanket with ice packs when seen this morning. He continues to be intubated. He does look to whomever is speaking and did follow commands. 11/19: The patient is asleep but awakens on his own. He was extubated this morning and is now on a nasal cannula. He follows commands and moves all his extremities to a degree. He does tell his daughter that he is tired. The family reports earlier that the patient did ask where his and son were by name. 11/20: When seen this afternoon the patient had just been transferred to a regular med/surg floor. He appears mildly distressed and is moaning. His daughter states that he has said he has pain all over. 11/21: Notified by [facility] physician (Dr Mejia, PGY1) that patient was having increased respiratory effort. He reported that the patient's oxygen saturation was satisfactory but the chest x-ray demonstrated fluid overload. Therefore 40 mg furosemide IV was ordered as was a nebuliser treatment. When seen the patient appeared moderately distress and had just received the furosemide with the nebuliser treatment ongoing. The Charge Nurse reported that the patient was lethargic and not responding to commands. He reported that the [employer] is aware that the patient is being transferred to [facility] for further care and management. The Hospitalist was present and evaluating the patient. 11/22: Patient not opening eyes or following commands. Not verbalizing. 11/23: Pt opens eyes and tracks around room. He is restless. Not following commands for staff or reportedly family. Pt not verbalizing. 12/04: Pt opens eyes. Not following commands. Not verbalizing. System Review Comments Not able to obtain given clinical condition. Exam Results Vital Signs Date Time Temp Pulse Resp B/P (MAP) Pulse Ox O2 Delivery O2 Flow Rate FiO2 12/04/16 04:00 98.4 98 18 144/67 (92) 96 12/03/16 22:00 Nasal Cannula 2.00 Intake and Output 12/04/16 12/04/16 12/05/16 08:00 16:00 00:00 Output Total 300 ml Balance -300 ml Physical Examination GENERAL: Patient awake & fairly alert, interacts w/some coaxing, no apparent distress. SKIN: Warm, dry & intact w/o any evident rashes, ulcerations or lesions. HEENT: Normocephalic, atraumatic. NECK: No JVD, trachea midline. CARDIOVASCULAR: S1S2 w/RRR w/o M/G/R. RESPIRATORY: mild coarse bs bilaterally. GASTROINTESTINAL: Abdomen soft, nontender, positive bowel sounds. MUSCULOSKELETAL: No evident deformity or clubbing. NEUROLOGICAL: Awake. He does spontaneously move the LUE. Slight squeeze with the left hand and trace movement of the left foot to command , no response on right. Unable to assess sensation. Lab, Micro, Other Results Last Impressions Upper Extremity Ultrasound 12/02/16 0000 Signed Impressions: Service Date/Time: Saturday, December 03, 2016 00:53 - CONCLUSION: 1. Occlusive DVT in the cephalic and basilic vein on the right. Alex Goode MD Head CT 12/01/16 0000 Signed Impressions: Service Date/Time: Thursday, December 01, 2016 13:14 - CONCLUSION: Evolving intracranial hemorrhagic foci as above, both intra-axial and extra-axial. Jesus Lee MD Chest X-Ray 12/01/16 0000 Signed Impressions: Service Date/Time: Thursday, December 01, 2016 11:38 - CONCLUSION: 1. Small bilateral effusions with consolidative changes in the left lower lobe and diffuse interstitial prominence. Exam would suggest congestive failure. Study is stable compared to prior dated 11/27/16. Anthony Burns MD Modified Barium Swallow 11/30/16 0000 Signed Impressions: Service Date/Time: Wednesday, November 30, 2016 00:00 - CONCLUSION: Please refer to speech pathology report for full details. Lonnie Cook MD Transcranial Doppler Study Complete 11/17/16 0000 Signed Impressions: Service Date/Time: Thursday, November 17, 2016 10:03 - CONCLUSION: 1. Nondiagnostic examination due to poor transcranial windows. Konstantin Dash MD Abdomen X-Ray 11/12/16 0000 Signed Impressions: Service Date/Time: Saturday, November 12, 2016 08:23 - CONCLUSION: 1. Gastric tube in good position. 2. Probable right renal stones. Narayan Coulter MD Cervical Spine CT 11/09/16 195 Signed Impressions: Service Date/Time: Wednesday, November 09, 2016 20:14 - CONCLUSION: Negative trauma CT. Cj Isidro MD Laboratory Tests Test 12/03/16 17:50 12/03/16 21:51 12/04/16 09:15 Haptoglobin 87 MG/DL Iron Level 41 MCG/DL Total Iron Binding Capacity 161 MCG/DL Percent Iron Saturation 25.5 % Ferritin 399 NG/ML Lactate Dehydrogenase 284 U/L Vitamin B12 Level 1653 PG/ML Vancomycin Level Trough 14.4 MCG/ML White Blood Count 15.2 TH/MM3 Red Blood Count 3.54 MIL/MM3 Hemoglobin 10.3 GM/DL Hematocrit 31.5 % Mean Corpuscular Volume 89.0 FL Mean Corpuscular Hemoglobin 29.2 PG Mean Corpuscular Hemoglobin Concent 32.8 % Red Cell Distribution Width 19.4 % Platelet Count 319 TH/MM3 Mean Platelet Volume 6.9 FL Neutrophils (%) (Auto) 17.3 % Lymphocytes (%) (Auto) 73.1 % Monocytes (%) (Auto) 8.8 % Eosinophils (%) (Auto) 0.7 % Basophils (%) (Auto) 0.1 % Neutrophils # (Auto) 2.6 TH/MM3 Lymphocytes # (Auto) 11.1 TH/MM3 Monocytes # (Auto) 1.3 TH/MM3 Eosinophils # (Auto) 0.1 TH/MM3 Basophils # (Auto) 0.0 TH/MM3 CBC Comment AUTO DIFF Differential Total Cells Counted 100 Neutrophils % (Manual) 22 % Band Neutrophils % 2 % Lymphocytes % 67 % Monocytes % 7 % Eosinophils % 2 % Neutrophils # (Manual) 3.6 TH/MM3 Differential Comment FINAL DIFF MANUAL Atypical Lymphocytes % Platelet Estimate NORMAL Platelet Morphology Comment NORMAL Blood Smear Pathologist Review Reticulocyte Count 2.5 % Absolute Reticulocyte Count 89.1 MIL/L Prothrombin Time 11.9 SEC Prothromb Time International Ratio 1.1 RATIO Activated Partial Thromboplast Time 32.0 SEC Creatinine 0.62 MG/DL Estimat Glomerular Filtration Rate 124 ML/MIN Folate 11.7 NG/ML Medical Decision Making Impression and Plan Impression: 1. Traumatic brain injury 2. Hypertension 3. Diabetes 4. Respiratory failure 5. Seizures Plan: Continue with neuro checks. Non-chemical DVT prophylaxis. Ulcer prophylaxis. Continue rehabilitation efforts Chay Alvarez Dec 04, 2016 10:55 am
--- NOTE | 2016-12-04 11:07 | HHI.PR ---
Subjective Remarks Follow-up traumatic brain injury/intraparenchymal hemorrhage/subdural hemorrhaging/acute respiratory insufficiency/metabolic encephalopathy 11/29/16-patient seen and examined, daughter by the bedside. He is responding to daughter's cues. Per daughter, patient seems to be more alert. Like patient to be transferred back to [facility] in 2-3 weeks after discharge, and she is wondering if he can make it on a special plane 11/30/16-patient seen and examined, patient much more alert today. Appears to be choking on his food. Son By the Bedside 12/01/16-patient seen and examined; he appears more drowsy and lethargic today. Doppler left upper extremity positive for superficial venous thrombosis. Afebrile. Daughter by the bedside 12/02/16-patient seen and examined much more alert today. UA positive. Afebrile. WBC up. Daughter by the bedside 12/03/16-patient seen and examined alert however showing discomfort from Noriega. Daughter by the bedside 12/04/16-patient seen and examined, some shortness of breath and goggling sounds ; WBC trending up Objective Vitals Vital Signs Date Time Temp Pulse Resp B/P (MAP) Pulse Ox O2 Delivery O2 Flow Rate FiO2 12/04/16 04:00 98.4 98 18 144/67 (92) 96 12/04/16 00:18 98.3 95 18 120/61 (80) 98 12/03/16 22:00 98 Nasal Cannula 2.00 12/03/16 20:00 98.1 96 18 140/77 (98) 99 12/03/16 16:00 98.3 97 15 136/64 (88) 96 12/03/16 12:00 98.3 99 15 122/61 (81) 95 I/O 12/03/16 12/03/16 12/03/16 12/04/16 12/04/16 12/04/16 07:00 15:00 23:00 07:00 15:00 23:00 Output Total 400 ml 300 ml Balance -400 ml -300 ml Output Urine Total 400 ml 300 ml # Bowel Movements 2 3 Result Diagram: 12/03/16215012/04/1615 Objective Remarks GENERAL: NAD , somehow lethargic but easily arousable SKIN: Warm and dry. HEAD: Normocephalic. EYES: No scleral icterus. No injection or drainage. NECK: Supple, trachea midline. No JVD or lymphadenopathy. CARDIOVASCULAR: Regular rate and rhythm without murmurs, gallops, or rubs. RESPIRATORY: Breath sounds equal bilaterally. No accessory muscle use. GASTROINTESTINAL: Abdomen soft, non-tender, nondistended. MUSCULOSKELETAL: No cyanosis, or edema. BACK: Nontender without obvious deformity. No CVA tenderness. Date of Insertion: Nov 12, 2016 Line: Central Venous Catheter Side: Right Location: Internal, Jugular A/P Problem List: (1) Subdural hematoma ICD Code: I62.00 - Nontraumatic subdural hemorrhage, unspecified Status: Acute (2) Diabetes ICD Code: E11.9 - Type 2 diabetes mellitus without complications (3) Leukocytosis ICD Code: D72.829 - Elevated white blood cell count, unspecified Status: Acute (4) HTN (hypertension) ICD Code: I10 - Essential (primary) hypertension Status: Chronic (5) Dysphagia ICD Code: R13.10 - Dysphagia, unspecified (6) Urinary tract infection ICD Code: N39.0 - Urinary tract infection, site not specified Assessment and Plan 80 y/o with Closed head injury Subdural hematoma Bilateral intracranial hemorrhaging -Managed by neurosurgery and no indication for surgery at this time -Neuro checks -Continue with Keppra and Dilantin by mouth; monitor level Metabolic encephalopathy-improving head CT 12/01/16 noted Respiratory insufficiency Check checks x-ray CPT Schedule and DuoNeb when necessary and maintain oxygen saturation above 92% Atrial fibrillation Hypertension Continue with Lopressor Oral anticoagulation contraindicated secondary to intracranial bleed Decubitus ulcer Start Santyl Reconsult wound care Repositioning every 2 hour Benign prosthetic hyperplasia Continue with Flomax Noriega care Diabetes mellitus - hemoglobin A1c 6.0 Occlusive DVT in cephalic vein right upper extremity Hematology consultation appreciated however oral anticoagulation contraindicated Dysphagia r/o Barium swallow study normal Urinary tract infection Continue Azactam 1 g IV every 12H on Diflucan 100 mg by mouth daily 12/03/16 secondary to been culture positive for Jane Prophylaxis - GI - lanosprazole DVT - SCD/pharmacological prophylaxis when okay with neurosurgery Chay Veliz MD Dec 04, 2016 11:07
[2016-12-04] MEDS ORDERED: HYOSCYAMINE 0.125 MG TAB PO PRN (11:30)
[2016-12-04] MEDS: COLLAGENASE OINT 30 GM TUBE TOPICAL SCH (11:38)
--- NOTE | 2016-12-04 12:39 | RADRPT ---
EXAM DATE/TIME: 12/04/2016 11:58 [facility] COMPARISON: CHEST SINGLE AP, December 01, 2016, 11:38. INDICATIONS : Shortness of breath; Infiltrate. MEDICAL HISTORY : atrial fibrillation, diabetes, chemotherapy SURGICAL HISTORY : neck surgery for cancer, cardiac catherization ENCOUNTER: Subsequent ACUITY: 3 weeks PAIN SCORE: 0/10 LOCATION: Bilateral chest FINDINGS: There has been improvement in aeration with decrease in interstitial and bibasilar alveolar infiltrat e. Slight blunting of the left costophrenic angle indicates some residual left pleural fluid. Cardiac contours are grossly stable. CONCLUSION: Improving aeration. Lonnie Blanchard MD on December 04, 2016 at 12:37 Board Certified Radiologist. This report was verified electronically.
[2016-12-04] MEDS: RESP: ALBUTEROL 2.5 MG/IPRATROPIUM 0.5 MG NEB (SCH) NEB ×2 (14:26→19:57)
[2016-12-04] MEDS: VANCOMYCIN INJ 1,750 MG in SODIUM CHLORID 0.9% 500 ML INJ 500 ML IV SCH (17:04)
--- NOTE | 2016-12-04 18:16 | PD.WCN.NOT ---
Wound Consult Description: Patient seen for follow up of DTI to sacral area. Communicated with: JAYDEN hamlin and call placed to Doctor Jose Alfredo Recommendation: Please cleanse unstageable pressure injury to sacral area with normal saline only. Apply mable thick coverage of santyl ointment to wound bed on sacral area and cover with Slightly moistened Maxorb II (Calcium alginate) dressing. Cover with ABD pad secured with tape or cover with bordered gauze. Please apply skin prep to periwound before applying adhesive to skin.Please change dressing daily Additional Information: Patient seen on [address] for follow up of sacral DTI. Position patient to R side with the assistance of Orin hamlin and [employer] to reveal adhesive foam dressing in place over wound. Removed adhesive foam dressing in place to reveal unstagable pressure injury to sacral area. Wound measures 4.5cm x 2.2cm x slough. Wound bed presents with ~30% coverage yellow adherent slough and ~70% pink tissue.Wound is noted with a butterfly shape and well defined wound margins that appear attached. Wound drainage is minimal and sero-sanguinous without odor.Patient cleansed of stool from bowel small bowel movement, with soap and water. Wound cleansed with normal saline and applied adhesive foam dressing in place for now. Sprayed periwound with skin prep before applying dressing. Ashley Ghotra [facility] Dec 04, 2016 18:16
[2016-12-04] MEDS: TAMSULOSIN HCL 0.4 MG CAP PO SCH (21:13)
[2016-12-05] VITALS (8 sets, daily range): BP systolic 130–139; BP diastolic 63–76; PULSE 95–109; RESP 17–22; TEMP 97.4–99.6; O2SAT 93–99
[2016-12-05] MEDS: PHENYTOIN SODIUM 100 MG CAP PO SCH ×3 (05:22→17:01)
[2016-12-05] MEDS: BELLADONNA ALKALOIDS/OPIUM 60 MG SUPP RECTAL SCH (05:22)
[2016-12-05] MEDS: levETIRAcetam 500 MG TAB PO SCH ×3 (05:22→20:52)
[2016-12-05 07:24] LABS: AUTOMATED NEUTROPHIL # 3.1 TH/MM3 (1.8-7.7); BASOPHIL % 0.2 % (0.0-2.0); EOSINOPHIL # 0.1 TH/MM3 (0-0.4); EOSINOPHIL % 0.9 % (0.0-4.0); HEMATOCRIT 27.9 % (39.0-51.0); LYMPH % 66.4 % (9.0-44.0); LYMPHOCYTE # 8.9 TH/MM3 (1.0-4.8); MEAN CELL VOLUME 88.1 FL (80.0-100.0); MEAN CORPUSCULAR HEMOGLOBIN 29.6 PG (27.0-34.0); MEAN CORPUSCULAR HGB CONC 33.6 % (32.0-36.0); MONO % 9.3 % (0.0-8.0); NEUT % 23.2 % (16.0-70.0); PLATELET COUNT 300 TH/MM3 (150-450); RED BLOOD COUNT 3.16 MIL/MM3 (4.50-5.90); RED CELL DISTRIBUTION WIDTH 19.1 % (11.6-17.2); WHITE BLOOD COUNT 13.4 TH/MM3 (4.0-11.0)
[2016-12-05] MEDS: INSULIN ASPART SUPPLEMENTAL SCALE SQ SCH ×4 (07:32→21:24)
[2016-12-05 07:34] LABS: HEMO FLAGS AUTO DIFF
[2016-12-05 07:43] LABS: BICARBONATE 29.4 MEQ/L (21.0-32.0); POTASSIUM 3.6 MEQ/L (3.5-5.1)
[2016-12-05] MEDS: CHLORHEXIDINE 0.12% (ORAL KIT) 15 ML CUP MT SCH ×2 (08:00→20:51)
[2016-12-05] MEDS: RESP: ALBUTEROL 2.5 MG/IPRATROPIUM 0.5 MG NEB (SCH) NEB ×3 (08:14→20:04)
[2016-12-05] MEDS: POLYETHYLENE GLYCOL 17 GM PKG OG-TUBE SCH ×2 (09:00→20:52)
[2016-12-05] MEDS: ARTIFICIAL TEARS OPTH SOLN 15 ML BTL EACH EYE SCH ×3 (09:00→16:23)
[2016-12-05] MEDS: SODIUM CHLORIDE 0.9% FLUSH 10 ML FLUSH IVF SCH (09:00)
[2016-12-05] MEDS: SODIUM CHLORIDE 0.9% FLUSH 10 ML FLUSH IV FLUSH SCH ×2 (09:00→21:00)
[2016-12-05] MEDS: FUROSEMIDE 40 MG/4 ML VIAL IV PUSH SCH (09:22)
[2016-12-05] MEDS: TOLTERODINE TARTRATE 2 MG CAP LA PO SCH (09:22)
[2016-12-05] MEDS: FINASTERIDE 5 MG TAB PO SCH (09:22)
[2016-12-05] MEDS: LANSOPRAZOLE SOLUTAB 30 MG TAB NG SCH (09:22)
[2016-12-05] MEDS: FLUCONAZOLE 100 MG TAB PO SCH (09:22)
[2016-12-05] MEDS: MEGESTROL ACETATE SUSP 400 MG/10 ML CUP PO SCH (09:22)
[2016-12-05] MEDS: CALCIUM CARBONATE 500 MG CHEWABLE TAB CHEW SCH ×2 (09:22→20:51)
[2016-12-05] MEDS: DOCUSATE SODIUM 100 MG/10 ML UDC PO SCH ×2 (09:22→20:53)
[2016-12-05] MEDS: METOPROLOL TARTRATE 25 MG TAB PO SCH ×2 (09:23→20:51)
[2016-12-05] MEDS: MUPIROCIN 2% CREAM 15 GM TOPICAL SCH ×2 (09:24→20:52)
[2016-12-05] MEDS: COLLAGENASE OINT 30 GM TUBE TOPICAL SCH (09:25)
--- NOTE | 2016-12-05 11:25 | HHI.PR ---
Subjective Remarks Follow-up traumatic brain injury/intraparenchymal hemorrhage/subdural hemorrhaging/acute respiratory insufficiency/metabolic encephalopathy 11/29/16-patient seen and examined, daughter by the bedside. He is responding to daughter's cues. Per daughter, patient seems to be more alert. Like patient to be transferred back to [facility] in 2-3 weeks after discharge, and she is wondering if he can make it on a special plane 11/30/16-patient seen and examined, patient much more alert today. Appears to be choking on his food. Son By the Bedside 12/01/16-patient seen and examined; he appears more drowsy and lethargic today. Doppler left upper extremity positive for superficial venous thrombosis. Afebrile. Daughter by the bedside 12/02/16-patient seen and examined much more alert today. UA positive. Afebrile. WBC up. Daughter by the bedside 12/03/16-patient seen and examined alert however showing discomfort from Noriega. Daughter by the bedside 12/04/16-patient seen and examined, some shortness of breath and goggling sounds ; WBC trending up 12/05/16-patient seen and examined, patient is more oriented today and more talkative. Afebrile Objective Vitals Vital Signs Date Time Temp Pulse Resp B/P (MAP) Pulse Ox O2 Delivery O2 Flow Rate FiO2 12/05/16 08:00 97.4 95 17 131/67 (88) 97 12/05/16 05:15 98.3 97 20 132/63 (86) 97 12/05/16 02:23 95 Nasal Cannula 2.00 12/05/16 01:02 97 Nasal Cannula 3.00 12/05/16 00:40 97.7 101 22 130/76 (94) 95 12/04/16 20:30 98.8 108 22 138/88 (105) 96 12/04/16 19:59 95 Nasal Cannula 3.00 12/04/16 16:00 98.2 103 16 124/55 (78) 93 12/04/16 12:00 97.9 97 16 122/68 (86) 93 I/O 12/04/16 12/04/16 12/04/16 12/05/16 12/05/16 12/05/16 07:00 15:00 23:00 07:00 15:00 23:00 Intake Total 425 ml 100 ml Output Total 300 ml 200 ml 600 ml Balance -300 ml 225 ml -500 ml Intake Oral 425 ml 100 ml Output Urine Total 300 ml 200 ml 600 ml # Bowel Movements 3 0 0 Result Diagram: 12/05/1670212/05/16702 Objective Remarks GENERAL: NAD , somehow lethargic but easily arousable SKIN: Warm and dry. HEAD: Normocephalic. EYES: No scleral icterus. No injection or drainage. NECK: Supple, trachea midline. No JVD or lymphadenopathy. CARDIOVASCULAR: Regular rate and rhythm without murmurs, gallops, or rubs. RESPIRATORY: Breath sounds equal bilaterally. No accessory muscle use. GASTROINTESTINAL: Abdomen soft, non-tender, nondistended. MUSCULOSKELETAL: No cyanosis, or edema. BACK: Nontender without obvious deformity. No CVA tenderness. Date of Insertion: Nov 12, 2016 Line: Central Venous Catheter Side: Right Location: Internal, Jugular A/P Problem List: (1) Subdural hematoma ICD Code: I62.00 - Nontraumatic subdural hemorrhage, unspecified Status: Acute (2) Diabetes ICD Code: E11.9 - Type 2 diabetes mellitus without complications (3) Leukocytosis ICD Code: D72.829 - Elevated white blood cell count, unspecified Status: Acute (4) HTN (hypertension) ICD Code: I10 - Essential (primary) hypertension Status: Chronic (5) Dysphagia ICD Code: R13.10 - Dysphagia, unspecified (6) Urinary tract infection ICD Code: N39.0 - Urinary tract infection, site not specified Assessment and Plan 80 y/o with Closed head injury Subdural hematoma Bilateral intracranial hemorrhaging -Managed by neurosurgery and no indication for surgery at this time -Neuro checks -Continue with Keppra and Dilantin by mouth; monitor level Metabolic encephalopathy-improving head CT 12/01/16 noted CXR with improving aeration Respiratory insufficiency Chest x-ray with improvement in aeration Continue CPT Schedule and DuoNeb when necessary and maintain oxygen saturation above 92% Atrial fibrillation Hypertension Continue with Lopressor Oral anticoagulation contraindicated secondary to intracranial bleed Decubitus ulcer Continue Santyl Reconsult wound care Repositioning every 2 hour Benign prosthetic hyperplasia Continue with Flomax Noriega care Diabetes mellitus - hemoglobin A1c 6.0 Occlusive DVT in cephalic vein right upper extremity Hematology consultation appreciated however oral anticoagulation contraindicated Dysphagia r/o Barium swallow study normal Urinary tract infection d/jose luis Azactam 1 g IV every 12H on Diflucan 100 mg by mouth daily 12/03/16 secondary to been culture positive for Jane Prophylaxis - GI - lanosprazole DVT - SCD/pharmacological prophylaxis when okay with neurosurgery Chay Veliz MD Dec 05, 2016 11:25
--- NOTE | 2016-12-05 11:55 | HHI.NSPN ---
History Chief Complaint: Unable to obtain due to patient's clinical condition. Interval History Chief Complaint: Unable to obtain due to patient's clinical condition. Interval History 11/09: 80-year-old male who according to his family was going up a step into the house with his cane when he fell backwards, striking the back of his head. He was reportedly unconscious for 10-15 minutes. He then had some shaking in the extremities as he was waking up. He has been somewhat sleepy and a little confused since he woke up at the patient's family states that he is conversing reasonably well with them. He normally is fairly independent, ambulating with a cane and is usually mentally alert with only mild memory loss. Positive emesis reported. Patient has no complaint of headache or neck pain. No complaint of low back or joint pain. 11/10: nursing reports agitated overnight, currently sleeping. f/u CT Head completed, moves all four extremities. son translated - oriented to name and place only. 11/11: Notified by PARVIN Stoner, that Nursing had notified her that the patient's mental status was worse this morning and that she had ordered a stat CT brain. When seen this morning the patient is obtunded and not answering to verbal stimuli. Nursing reports that CT had called and was sending someone up to transport the patient to the scanner. She stated that the patient did receive morphine and hydrocodone during the night for pain because he was agitated. 11/12: The patient has been intubated this morning due to persistent decreased mental status. Possibly a few more episodes of seizure activity reported last evening. He is continuing on Dilantin and Keppra for seizures. 11/13: The patient still is intubated, mechanically ventilated and sedated with midazolam. He does not respond to noxious stimulation. The EEG done yesterday morning did demonstrate seizure activity. Neurology evaluated the patient yesterday and adjusted his anti-epileptic medications. An EEG was done this morning prior to the patient being seen. 11/14: The patient remains intubated. A midazolam drip is still infusing as is a fentanyl drip. A repeat Ct brain this morning demonstrated evolving contusions and haemorrhages. 11/15: The patient is intubated without any sedation. The midazolam and fentanyl infusions were discontinued yesterday. A 3% saline drip continues to infuse. He did have a slight twitching of the eyelids when his name was called but no eye opening. 11/16: This morning the patient opened his eyes to verbal stimulation. He continues to be intubated without any sedation. 11/17/16: Patient remains intubated. He had a dose of intravenous sedation last night for agitation. Remains relatively alert. Positive fever last evening. Some difficulty with hemodynamic instability last evening. 11/18: The patient is on a cooling blanket with ice packs when seen this morning. He continues to be intubated. He does look to whomever is speaking and did follow commands. 11/19: The patient is asleep but awakens on his own. He was extubated this morning and is now on a nasal cannula. He follows commands and moves all his extremities to a degree. He does tell his daughter that he is tired. The family reports earlier that the patient did ask where his and son were by name. 11/20: When seen this afternoon the patient had just been transferred to a regular med/surg floor. He appears mildly distressed and is moaning. His daughter states that he has said he has pain all over. 11/21: Notified by [facility] physician (Dr Mejia, PGY1) that patient was having increased respiratory effort. He reported that the patient's oxygen saturation was satisfactory but the chest x-ray demonstrated fluid overload. Therefore 40 mg furosemide IV was ordered as was a nebuliser treatment. When seen the patient appeared moderately distress and had just received the furosemide with the nebuliser treatment ongoing. The Charge Nurse reported that the patient was lethargic and not responding to commands. He reported that the Agitator Operator is aware that the patient is being transferred to [facility] for further care and management. The Hospitalist was present and evaluating the patient. 11/22: Patient not opening eyes or following commands. Not verbalizing. 11/23: Pt opens eyes and tracks around room. He is restless. Not following commands for staff or reportedly family. Pt not verbalizing. 12/04: Pt opens eyes. Not following commands. Not verbalizing. 12/05: Patient opens eyes to voice, smiles, questionable followed simple command left UE x one, not following commands other extremities. Not verbalizing. System Review Comments Not able to obtain given clinical condition. Exam Results Vital Signs Date Time Temp Pulse Resp B/P (MAP) Pulse Ox O2 Delivery O2 Flow Rate FiO2 12/05/16 08:00 97.4 95 17 131/67 (88) 97 12/05/16 02:23 Nasal Cannula 2.00 Intake and Output 12/05/16 12/05/16 12/06/16 08:00 16:00 00:00 Intake Total 100 ml Output Total 600 ml Balance -500 ml Physical Examination GENERAL: Patient awake & fairly alert, interacts w/some coaxing, no apparent distress. SKIN: Warm, dry & intact w/o any evident rashes, ulcerations or lesions. HEENT: Normocephalic, atraumatic. NECK: No JVD, trachea midline. CARDIOVASCULAR: S1S2 w/RRR w/o M/G/R. RESPIRATORY: mild coarse bs bilaterally. GASTROINTESTINAL: Abdomen soft, nontender, positive bowel sounds. MUSCULOSKELETAL: No evident deformity or clubbing. NEUROLOGICAL: Awake. He does spontaneously move the LUE. Slight squeeze with the left hand and trace movement of the left foot to command , no response on right. Unable to assess sensation. Lab, Micro, Other Results Last Impressions Chest X-Ray 12/04/16 0000 Signed Impressions: Service Date/Time: November 11:58 - CONCLUSION: Improving aeration. Lonnie Blanchard MD Upper Extremity Ultrasound 12/02/16 0000 Signed Impressions: Service Date/Time: Saturday, December 03, 2016 00:53 - CONCLUSION: 1. Occlusive DVT in the cephalic and basilic vein on the right. Alex Goode MD Head CT 12/01/16 0000 Signed Impressions: Service Date/Time: Thursday, December 01, 2016 13:14 - CONCLUSION: Evolving intracranial hemorrhagic foci as above, both intra-axial and extra-axial. Jesus Lee MD Modified Barium Swallow 11/30/16 0000 Signed Impressions: Service Date/Time: Wednesday, November 30, 2016 00:00 - CONCLUSION: Please refer to speech pathology report for full details. Lonnie Cook MD Transcranial Doppler Study Complete 11/17/16 0000 Signed Impressions: Service Date/Time: Thursday, November 17, 2016 10:03 - CONCLUSION: 1. Nondiagnostic examination due to poor transcranial windows. Konstantin Dash MD Abdomen X-Ray 11/12/16 0000 Signed Impressions: Service Date/Time: Saturday, November 12, 2016 08:23 - CONCLUSION: 1. Gastric tube in good position. 2. Probable right renal stones. Narayan Coulter MD Cervical Spine CT 11/09/161950 Signed Impressions: Service Date/Time: Wednesday, November 09, 2016 20:14 - CONCLUSION: Negative trauma CT. Cj Isidro MD Medical Decision Making Impression and Plan Medical Decision Making Impression and Plan Impression: 1. Traumatic brain injury 2. Hypertension 3. Diabetes 4. Respiratory failure 5. Seizures Plan: Continue with neuro checks. Non-chemical DVT prophylaxis. Ulcer prophylaxis. Continue rehabilitation efforts. Continue Current Care. Total Minutes: 18 Galen Jimenes MD Dec 05, 2016 11:55
[2016-12-05 12:32] LABS: BANDS 1 % (0-6); EOSINOPHILS 1 % (0-4); NEUTROPHIL # MANUAL DIFF 2.9 TH/MM3 (1.8-7.7); POLYS (SEG NEUTROPHILS) 21 % (16-70); WBC DIFF SAMPLE 100
[2016-12-05 12:35] LABS: PLATELET ESTIMATE SMEAR NORMAL (NORMAL); PLATELET MORPHOLOGY NORMAL (NORMAL); SCAN/DIFF FINAL DIFF MANUAL; SMUDGE CELLS PRESENT PRESENT
[2016-12-05 12:36] LABS: OVALOCYTES 1+ (NORMAL)
--- NOTE | 2016-12-05 14:40 | PD.ONC.PN ---
Subjective Subjective Remarks Mr. Garza has reduced swelling in arm. He does not follow direction. Objective Data Date Time Temp Pulse Resp B/P (MAP) Pulse Ox O2 Delivery O2 Flow Rate FiO2 12/05/16 12:00 Nasal Cannula 2.00 12/05/16 08:00 97.4 95 17 131/67 (88) 97 12/05/16 05:15 98.3 97 20 132/63 (86) 97 12/05/16 02:23 95 Nasal Cannula 2.00 12/05/16 01:02 97 Nasal Cannula 3.00 12/05/16 00:40 97.7 101 22 130/76 (94) 95 12/04/16 20:30 98.8 108 22 138/88 (105) 96 12/04/16 19:59 95 Nasal Cannula 3.00 12/04/16 16:00 98.2 103 16 124/55 (78) 93 12/05/16 12/05/16 12/05/16 06:59 14:59 22:59 Intake Total 100 ml Output Total 600 ml Balance -500 ml Result Diagram: 12/05/16 0703 12/05/16 0703 Laboratory Results Laboratory Tests Test 12/05/16 07:03 White Blood Count 13.4 TH/MM3 Red Blood Count 3.16 MIL/MM3 Hemoglobin 9.4 GM/DL Hematocrit 27.9 % Mean Corpuscular Volume 88.1 FL Mean Corpuscular Hemoglobin 29.6 PG Mean Corpuscular Hemoglobin Concent 33.6 % Red Cell Distribution Width 19.1 % Platelet Count 300 TH/MM3 Mean Platelet Volume 6.8 FL Neutrophils (%) (Auto) 23.2 % Lymphocytes (%) (Auto) 66.4 % Monocytes (%) (Auto) 9.3 % Eosinophils (%) (Auto) 0.9 % Basophils (%) (Auto) 0.2 % Neutrophils # (Auto) 3.1 TH/MM3 Lymphocytes # (Auto) 8.9 TH/MM3 Monocytes # (Auto) 1.2 TH/MM3 Eosinophils # (Auto) 0.1 TH/MM3 Basophils # (Auto) 0.0 TH/MM3 CBC Comment AUTO DIFF Differential Total Cells Counted 100 Neutrophils % (Manual) 21 % Band Neutrophils % 1 % Lymphocytes % 69 % Monocytes % 8 % Eosinophils % 1 % Neutrophils # (Manual) 2.9 TH/MM3 Differential Comment FINAL DIFF MANUAL Smudge Cells PRESENT Platelet Estimate NORMAL Platelet Morphology Comment NORMAL Ovalocytes 1+ Blood Urea Nitrogen 15 MG/DL Creatinine 0.51 MG/DL Random Glucose 142 MG/DL Calcium Level 8.7 MG/DL Sodium Level 135 MEQ/L Potassium Level 3.6 MEQ/L Chloride Level 99 MEQ/L Carbon Dioxide Level 29.4 MEQ/L Anion Gap 7 MEQ/L Estimat Glomerular Filtration Rate 156 ML/MIN Culture Results Microbiology Date/Time Source Procedure Growth Status 12/04/16 18:10 Blood Peripheral Aerobic Blood Culture - Preliminary NO GROWTH IN 1 DAY Resulted 12/04/16 18:10 Blood Peripheral Anaerobic Blood Culture - Preliminary NO GROWTH IN 1 DAY Resulted 12/04/16 18:05 Blood Peripheral Aerobic Blood Culture - Preliminary NO GROWTH IN 1 DAY Resulted 12/04/16 18:05 Blood Peripheral Anaerobic Blood Culture - Preliminary NO GROWTH IN 1 DAY Resulted Administered Medications Medications (Trade) Dose Ordered Sig/Gregg Route PRN Reason Start Time Stop Time Status Last Admin Dose Admin Finasteride (Proscar) 5 mg DAILY PO 11/10/16 09:00 12/05/16 09:22 Tamsulosin HCl (Flomax) 0.4 mg HS PO 11/10/16 21:00 12/04/16 21:13 Tolterodine Tartrate (Detrol La) 2 mg DAILY PO 11/10/16 09:00 12/05/16 09:22 Glucagon (Glucagon Inj) 1 mg UNSCH PRN OTHER HYPOGLYCEMIA-SEE COMMENTS 11/09/16 23:45 11/24/16 03:48 Lorazepam (Ativan Inj) 1 mg Q5M PRN IV SEIZURES 11/12/16 00:45 11/12/16 01:45 Chlorhexidine Gluconate (Peridex 0.12% Liq) 15 ml BID@08,20 MT 11/12/16 08:00 12/05/16 08:00 Midazolam HCl 100 ml @ 2 mls/hr TITRATE PRN IV SEDATION 11/12/16 07:15 11/13/16 08:49 Sodium Chloride (NS Flush) DAILY IVF 11/12/16 09:00 11/28/16 09:22 Lansoprazole (Prevacid Odt) 30 mg DAILY NG 11/12/16 09:00 12/05/16 09:22 Docusate Sodium (Colace Liq) 100 mg Q12HR PO 11/12/16 09:00 12/05/16 09:22 Sodium Chloride (NS Flush) 2 ml BID IV FLUSH 11/12/16 09:00 12/05/16 09:00 Artificial Tears (Tears Naturale Opth Soln) 1 drop TID EACH EYE 11/12/16 09:00 12/05/16 09:00 Ondansetron HCl (Zofran Inj) 4 mg Q6H PRN IV NAUSEA OR VOMITING 11/12/16 08:30 11/15/16 05:45 Albuterol Sulfate (Albuterol Neb) 2.5 mg Q2HR NEB PRN INH SOB/WHEEZING 11/12/16 08:30 11/29/16 21:19 Acetaminophen (Tylenol 650 Mg/ 20 ml Liq) 650 mg Q6H PRN NG FEVER 11/12/16 08:45 11/24/16 22:16 Levetriacetam 100 ml @ 400 mls/hr Q8HR IV 11/12/16 22:00 Future Hold 11/30/16 05:35 Polyethylene Glycol (Miralax) 17 gm BID OG-TUBE 11/13/16 21:00 12/02/16 09:54 Lactulose (Lactulose Liq) 30 ml DAILY PO 11/14/16 09:00 Future Hold 12/02/16 09:54 Hydralazine HCl (Apresoline Inj) 20 mg Q4H PRN IV PUSH SBP>150, DBP>90 11/14/16 02:15 11/14/16 03:07 Metoprolol Tartrate (Lopressor) 25 mg Q12HR PO 11/16/16 09:30 12/05/16 09:23 Fosphenytoin Sodium 100 mgpe/ Sodium Chloride 52 ml @ 208 mls/hr Q6HR IV 11/18/16 13:00 Future Hold 11/30/16 13:10 Furosemide (Lasix Inj) 40 mg DAILY IV PUSH 11/22/16 11:00 12/05/16 09:22 Insulin Aspart (NovoLOG SUPPLEMENTAL SCALE) 1 ACHS SLIDING SCALE SQ 11/24/16 17:00 12/05/16 12:00 Dextrose (D50w (Syr) Inj) 50 ml UNSCH PRN IV HYPOGLYCEMIA-SEE COMMENTS 11/25/16 09:30 11/25/16 09:46 Megestrol Acetate (Megace Liq) 400 mg DAILY PO 11/26/16 09:00 12/05/16 09:22 Calcium Carbonate (Tums Chew) 500 mg Q12HR CHEW 11/26/16 09:00 12/06/16 08:59 12/05/16 09:22 Levetriacetam (Keppra) 1,000 mg Q8HR PO 11/30/16 22:00 12/05/16 05:22 Phenytoin (Dilantin) 100 mg Q6HR PO 11/30/16 19:45 12/05/16 12:05 Vancomycin HCl 1750 mg/Sodium Chloride 517.5 ml @ 257.5 mls/ hr Q24H IV 12/01/16 18:00 12/04/16 17:04 Mupirocin (Bactroban 2% Cream) 1 applic Q12HR TOPICAL 12/02/16 21:00 12/05/16 09:24 Fluconazole (Diflucan) 100 mg DAILY PO 12/04/16 09:00 12/05/16 09:22 Collagenase (Santyl Oint) 1 applic DAILY TOPICAL 12/04/16 12:00 12/05/16 09:25 Albuterol/ Ipratropium (Duoneb Neb) 1 ampule Q6HR WHILE AWAKE NEB NEB 12/04/16 14:00 12/05/16 08:14 Objective Remarks GENERAL: appears stated age, no distress SKIN: Warm and dry. HEAD: Normocephalic. EYES: No scleral icterus. No injection or drainage. NECK: Supple, trachea midline. LYMPHATIC: No adenopathy. CARDIOVASCULAR: Regular rate and rhythm without murmurs. RESPIRATORY: Breath sounds equal bilaterally. No accessory muscle use. GASTROINTESTINAL: Abdomen soft, non-tender, nondistended. EXTREMITIES: No edema of bilateral lower extremities. No edema of bilateral upper extremities NEUROLOGICAL: Does not follow directions, responds to verbal stimuli. Assessment/Plan Assessment 1. Intracranial hemorrhage: after fall. Currently with encephalopathy. Neurosurgery service following. Precludes systemic anticoagulation. 2. Right sided cephalic and basilic vein clot: decreased swelling in right arm , no tenderness on exam, no cording of veins. Continue to monitor. 3. Anemia: ACD likely exacerbated by acute infection. B12, folate, haptoglobin WNL. Stable. Continue to follow. 4. Leukocytosis with early forms on differential. Peripheral blood smear notes possibility of underlying bone marrow disorder. Flow cytometry sent. Will follow up results. Veronica Man MD Dec 05, 2016 14:39
[2016-12-05] MEDS: VANCOMYCIN INJ 1,750 MG in SODIUM CHLORID 0.9% 500 ML INJ 500 ML IV SCH (17:01)
[2016-12-05] MEDS: TAMSULOSIN HCL 0.4 MG CAP PO SCH (20:51)
[2016-12-06] VITALS (8 sets, daily range): BP systolic 127–156; BP diastolic 61–69; PULSE 100–120; RESP 18–20; TEMP 98–99.9; O2SAT 92–100
[2016-12-06] MEDS: PHENYTOIN SODIUM 100 MG CAP PO SCH ×5 (00:17→23:19)
[2016-12-06] MEDS: levETIRAcetam 500 MG TAB PO SCH ×3 (05:39→20:47)
[2016-12-06] MEDS: INSULIN ASPART SUPPLEMENTAL SCALE SQ SCH ×4 (08:00→20:41)
[2016-12-06] MEDS: CHLORHEXIDINE 0.12% (ORAL KIT) 15 ML CUP MT SCH ×2 (08:00→20:41)
[2016-12-06] MEDS: FUROSEMIDE 40 MG/4 ML VIAL IV PUSH SCH (08:59)
[2016-12-06] MEDS: FINASTERIDE 5 MG TAB PO SCH (08:59)
[2016-12-06] MEDS: MEGESTROL ACETATE SUSP 400 MG/10 ML CUP PO SCH (08:59)
[2016-12-06] MEDS: LANSOPRAZOLE SOLUTAB 30 MG TAB NG SCH (08:59)
[2016-12-06] MEDS: FLUCONAZOLE 100 MG TAB PO SCH (08:59)
[2016-12-06] MEDS: METOPROLOL TARTRATE 25 MG TAB PO SCH ×2 (08:59→20:40)
[2016-12-06] MEDS: DOCUSATE SODIUM 100 MG/10 ML UDC PO SCH ×2 (08:59→20:41)
[2016-12-06] MEDS: TOLTERODINE TARTRATE 2 MG CAP LA PO SCH (08:59)
[2016-12-06] MEDS: ARTIFICIAL TEARS OPTH SOLN 15 ML BTL EACH EYE SCH ×3 (09:00→17:27)
[2016-12-06] MEDS: POLYETHYLENE GLYCOL 17 GM PKG OG-TUBE SCH ×2 (09:00→20:41)
[2016-12-06] MEDS: SODIUM CHLORIDE 0.9% FLUSH 10 ML FLUSH IVF SCH (09:00)
[2016-12-06] MEDS: SODIUM CHLORIDE 0.9% FLUSH 10 ML FLUSH IV FLUSH SCH ×2 (09:00→20:41)
[2016-12-06] MEDS: MUPIROCIN 2% CREAM 15 GM TOPICAL SCH ×2 (09:00→20:41)
[2016-12-06] MEDS: COLLAGENASE OINT 30 GM TUBE TOPICAL SCH (09:00)
[2016-12-06] MEDS: RESP: ALBUTEROL 2.5 MG/IPRATROPIUM 0.5 MG NEB (SCH) NEB ×3 (09:32→20:48)
--- NOTE | 2016-12-06 10:18 | HHI.PR ---
Subjective Remarks Follow up visit SDH, UE DVT, HTN, DM2. Patient seen and examined today. Daughter at the bedside. Daughter reports that overnight patient has been talking and telling stories to family members. Patient is more alert and awake , garbled speech. Respiratory therapist at the bedside giving nebulizer treatment. Patient keeps on pulling and tugging on the mask. When asked if he is doing okay, patient just looked at me and close his eyes. When asked to follow commands, patient does not want to move his extremities but was observed moving it prior to asking. As per daughter, patient does not usually follow commands to anyone but would do everything by himself. Appears comfortable. Objective Vitals Vital Signs Date Time Temp Pulse Resp B/P (MAP) Pulse Ox O2 Delivery O2 Flow Rate FiO2 12/06/16 09:32 95 Nasal Cannula 2.00 12/06/16 08:05 98.2 109 18 156/67 (96) 95 12/06/16 05:41 98.7 107 19 147/68 (94) 100 12/06/16 02:42 Nasal Cannula 2.00 12/06/16 01:17 99.9 100 19 140/64 (89) 95 12/05/16 20:08 99 Nasal Cannula 3.00 12/05/16 20:00 99.6 109 18 139/71 (93) 93 12/05/16 16:00 98.6 100 17 136/69 (91) 96 12/05/16 12:00 Nasal Cannula 2.00 12/05/16 12:00 99.2 96 17 131/72 (91) 95 I/O 12/05/16 12/05/16 12/05/16 12/06/16 12/06/16 12/06/16 07:00 15:00 23:00 07:00 15:00 23:00 Intake Total 100 ml 60 ml Output Total 600 ml 500 ml Balance -500 ml -440 ml Intake Oral 100 ml 60 ml Output Urine Total 600 ml 500 ml # Bowel Movements 0 Result Diagram: 12/05/1603 12/05/1603 Imaging Last Impressions Chest X-Ray 12/04/16 0000 Signed Impressions: Service Date/Time: November 11:58 - CONCLUSION: Improving aeration. Lonnie Blanchard MD Upper Extremity Ultrasound 12/02/16 0000 Signed Impressions: Service Date/Time: Saturday, December 03, 2016 00:53 - CONCLUSION: 1. Occlusive DVT in the cephalic and basilic vein on the right. Alex Goode MD Head CT 12/01/16 0000 Signed Impressions: Service Date/Time: Thursday, December 01, 2016 13:14 - CONCLUSION: Evolving intracranial hemorrhagic foci as above, both intra-axial and extra-axial. Jesus Lee MD Modified Barium Swallow 11/30/16 0000 Signed Impressions: Service Date/Time: Wednesday, November 30, 2016 00:00 - CONCLUSION: Please refer to speech pathology report for full details. Lonnie Cook MD Transcranial Doppler Study Complete 11/17/16 0000 Signed Impressions: Service Date/Time: Thursday, November 17, 2016 10:03 - CONCLUSION: 1. Nondiagnostic examination due to poor transcranial windows. Konstantin Dash MD Abdomen X-Ray 11/12/16 0000 Signed Impressions: Service Date/Time: Saturday, November 12, 2016 08:23 - CONCLUSION: 1. Gastric tube in good position. 2. Probable right renal stones. Narayan Coulter MD Cervical Spine CT 11/09/161950 Signed Impressions: Service Date/Time: Wednesday, November 09, 2016 20:14 - CONCLUSION: Negative trauma CT. Cj Isidro MD Objective Remarks GENERAL: This is a thin-appearing, well-developed patient, in no apparent distress. SKIN: Warm and dry. HEENT: Normocephalic. Pupils equal round and reactive. Nose without bleeding. Airway patent. NECK: Trachea midline. Supple. CARDIOVASCULAR: Regular rate and rhythm without murmurs, gallops, or rubs. RESPIRATORY: Diminished bilateral bases. No wheezes, rales, or rhonchi. GASTROINTESTINAL: Abdomen soft, non-tender, nondistended. Bowel Sounds normoactive x4. MUSCULOSKELETAL: Extremities without clubbing, cyanosis, bilateral lower extremity +1 edema. NEUROLOGICAL: Awake and alert. Moves all extremities weakly. Garbled speech. Date of Insertion: Nov 12, 2016 Line: Central Venous Catheter Side: Right Location: Internal, Jugular A/P Problem List: (1) Subdural hematoma ICD Code: I62.00 - Nontraumatic subdural hemorrhage, unspecified Status: Acute (2) Diabetes ICD Code: E11.9 - Type 2 diabetes mellitus without complications (3) Leukocytosis ICD Code: D72.829 - Elevated white blood cell count, unspecified Status: Acute (4) HTN (hypertension) ICD Code: I10 - Essential (primary) hypertension Status: Chronic (5) Dysphagia ICD Code: R13.10 - Dysphagia, unspecified (6) Urinary tract infection ICD Code: N39.0 - Urinary tract infection, site not specified Assessment and Plan 80 y/o with a history of HTN, DM, and BPH presented to the ED after a fall at home, with a LOC for 10-15 mins. Closed head injury Subdural hematoma Bilateral intracranial hemorrhaging - Managed by neurosurgery and no indication for surgery at this time - Neuro checks - Continue with Keppra and Dilantin by mouth; monitor level Metabolic encephalopathy-improving - head CT 12/01/16 noted - CXR with improving aeration - More awake and alert. Leukocytosis, ? Sepsis Anemia - Blood cultures NG x1 day. Will continue to follow. - Continue Vancomycin for now. Will DC when BC culture is negative - Hematology following. Ordered other testing R/O other bone marrow abnormality. Follow results. - Low grade temp 99.9 Respiratory insufficiency - Chest x-ray with improvement in aeration - Continue CPT - Schedule and DuoNeb when necessary and maintain oxygen saturation above 92% - Improving aeration with CXR Atrial fibrillation Hypertension - Continue with Lopressor 25mg BID - Oral anticoagulation contraindicated secondary to intracranial bleed - Monitor BP Trend Decubitus ulcer, DTI sacral area - Continue Santyl - Wound care following. Recommends mable thick coverage of santyl ointment to wound bed on sacral area and cover with Slightly moistened Maxorb II ( Calcium alginate) dressing. Cover with ABD pad secured with tape or cover with bordered gauze. 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 Monitor accucheck Occlusive DVT in cephalic vein right upper extremity - Hematology consultation appreciated however oral anticoagulation contraindicated - Avoid IV access RUE Dysphagia r/o - Barium swallow study normal Urinary tract infection - off Azactam 1 g IV every 12H - on Diflucan 100 mg by mouth daily 12/03/16 secondary to been culture positive for Jane Prophylaxis GI - lanosprazole DVT - SCD/pharmacological prophylaxis when okay with neurosurgery Discuss with patient, daughter, Nickvince Discharge Planning Plan for patient to go back to [facility]. Pending Medicaid application. CM following. Difficult SNF placement. Veronica Coley Dec 06, 2016 10:18
--- NOTE | 2016-12-06 13:47 | HHI.NSPN ---
History Chief Complaint: Unable to obtain due to patient's clinical condition. Interval History Chief Complaint: Unable to obtain due to patient's clinical condition. Interval History 11/09: 80-year-old male who according to his family was going up a step into the house with his cane when he fell backwards, striking the back of his head. He was reportedly unconscious for 10-15 minutes. He then had some shaking in the extremities as he was waking up. He has been somewhat sleepy and a little confused since he woke up at the patient's family states that he is conversing reasonably well with them. He normally is fairly independent, ambulating with a cane and is usually mentally alert with only mild memory loss. Positive emesis reported. Patient has no complaint of headache or neck pain. No complaint of low back or joint pain. 11/10: nursing reports agitated overnight, currently sleeping. f/u CT Head completed, moves all four extremities. son translated - oriented to name and place only. 11/11: Notified by PARVIN Stoner, that Nursing had notified her that the patient's mental status was worse this morning and that she had ordered a stat CT brain. When seen this morning the patient is obtunded and not answering to verbal stimuli. Nursing reports that CT had called and was sending someone up to transport the patient to the scanner. She stated that the patient did receive morphine and hydrocodone during the night for pain because he was agitated. 11/12: The patient has been intubated this morning due to persistent decreased mental status. Possibly a few more episodes of seizure activity reported last evening. He is continuing on Dilantin and Keppra for seizures. 11/13: The patient still is intubated, mechanically ventilated and sedated with midazolam. He does not respond to noxious stimulation. The EEG done yesterday morning did demonstrate seizure activity. Neurology evaluated the patient yesterday and adjusted his anti-epileptic medications. An EEG was done this morning prior to the patient being seen. 11/14: The patient remains intubated. A midazolam drip is still infusing as is a fentanyl drip. A repeat Ct brain this morning demonstrated evolving contusions and haemorrhages. 11/15: The patient is intubated without any sedation. The midazolam and fentanyl infusions were discontinued yesterday. A 3% saline drip continues to infuse. He did have a slight twitching of the eyelids when his name was called but no eye opening. 11/16: This morning the patient opened his eyes to verbal stimulation. He continues to be intubated without any sedation. 11/17/16: Patient remains intubated. He had a dose of intravenous sedation last night for agitation. Remains relatively alert. Positive fever last evening. Some difficulty with hemodynamic instability last evening. 11/18: The patient is on a cooling blanket with ice packs when seen this morning. He continues to be intubated. He does look to whomever is speaking and did follow commands. 11/19: The patient is asleep but awakens on his own. He was extubated this morning and is now on a nasal cannula. He follows commands and moves all his extremities to a degree. He does tell his daughter that he is tired. The family reports earlier that the patient did ask where his and son were by name. 11/20: When seen this afternoon the patient had just been transferred to a regular med/surg floor. He appears mildly distressed and is moaning. His daughter states that he has said he has pain all over. 11/21: Notified by [facility] physician (Dr Mejia, PGY1) that patient was having increased respiratory effort. He reported that the patient's oxygen saturation was satisfactory but the chest x-ray demonstrated fluid overload. Therefore 40 mg furosemide IV was ordered as was a nebuliser treatment. When seen the patient appeared moderately distress and had just received the furosemide with the nebuliser treatment ongoing. The Charge Nurse reported that the patient was lethargic and not responding to commands. He reported that the Furnace Feeder is aware that the patient is being transferred to [facility] for further care and management. The Hospitalist was present and evaluating the patient. 11/22: Patient not opening eyes or following commands. Not verbalizing. 11/23: Pt opens eyes and tracks around room. He is restless. Not following commands for staff or reportedly family. Pt not verbalizing. 12/04: Pt opens eyes. Not following commands. Not verbalizing. 12/05: Patient opens eyes to voice, smiles, questionable followed simple command left UE x one, not following commands other extremities. Not verbalizing. 12/06: Patient's Daughter at bedside. Patient opens eyes to voice, smiles, questionable followed simple command left UE x one, not following commands other extremities. Not verbalizing. System Review Comments Not able to obtain given clinical condition. Exam Results Vital Signs Date Time Temp Pulse Resp B/P (MAP) Pulse Ox O2 Delivery O2 Flow Rate FiO2 12/06/16 12:00 98.0 109 18 127/65 (85) 96 12/06/16 10:30 Nasal Cannula 3.00 Intake and Output 12/06/16 12/06/16 12/07/16 08:00 16:00 00:00 Intake Total 60 ml Output Total 500 ml Balance -440 ml Physical Examination GENERAL: Patient awake & fairly alert, interacts w/some coaxing, no apparent distress. SKIN: Warm, dry & intact w/o any evident rashes, ulcerations or lesions. HEENT: Normocephalic, atraumatic. NECK: No JVD, trachea midline. CARDIOVASCULAR: S1S2 w/RRR w/o M/G/R. RESPIRATORY: mild coarse bs bilaterally. GASTROINTESTINAL: Abdomen soft, nontender, positive bowel sounds. MUSCULOSKELETAL: No evident deformity or clubbing. NEUROLOGICAL: Awake. He does spontaneously move the LUE. Slight squeeze with the left hand and trace movement of the left foot to command , no response on right. Unable to assess sensation. Lab, Micro, Other Results Current Medications Medications (Trade) Dose Ordered Sig/Gregg Route PRN Reason Start Time Stop Time Status Last Admin Dose Admin Finasteride (Proscar) 5 mg DAILY PO 11/10/16 09:00 12/06/16 08:59 Tamsulosin HCl (Flomax) 0.4 mg HS PO 11/10/16 21:00 12/05/16 20:51 Tolterodine Tartrate (Detrol La) 2 mg DAILY PO 11/10/16 09:00 12/06/16 08:59 Glucagon (Glucagon Inj) 1 mg UNSCH PRN OTHER HYPOGLYCEMIA-SEE COMMENTS 11/09/16 23:45 11/24/16 03:48 Lorazepam (Ativan Inj) 1 mg Q5M PRN IV SEIZURES 11/12/16 00:45 11/12/16 01:45 Chlorhexidine Gluconate (Peridex 0.12% Liq) 15 ml BID@08,20 MT 11/12/16 08:00 12/06/16 08:00 Midazolam HCl 100 ml @ 2 mls/hr TITRATE PRN IV SEDATION 11/12/16 07:15 11/13/16 08:49 Sodium Chloride (NS Flush) DAILY IVF 11/12/16 09:00 11/28/16 09:22 Sodium Chloride (NS Flush) UNSCH PRN IVF SEE PROTOCOL 11/12/16 08:15 Lansoprazole (Prevacid Odt) 30 mg DAILY NG 11/12/16 09:00 12/06/16 08:59 Docusate Sodium (Colace Liq) 100 mg Q12HR PO 11/12/16 09:00 12/06/16 08:59 Sodium Chloride (NS Flush) 2 ml UNSCH PRN IV FLUSH FLUSH AFTER USING IV ACCESS 11/12/16 08:30 Sodium Chloride (NS Flush) 2 ml BID IV FLUSH 11/12/16 09:00 12/06/16 09:00 Artificial Tears (Tears Naturale Opth Soln) 1 drop TID EACH EYE 11/12/16 09:00 12/06/16 13:00 Ondansetron HCl (Zofran Inj) 4 mg Q6H PRN IV NAUSEA OR VOMITING 11/12/16 08:30 11/15/16 05:45 Albuterol Sulfate (Albuterol Neb) 2.5 mg Q2HR NEB PRN INH SOB/WHEEZING 11/12/16 08:30 11/29/16 21:19 Bisacodyl (Dulcolax Supp) 10 mg DAILY PRN RECTAL SEVERE CONSITIPATION 11/12/16 08:30 Acetaminophen (Tylenol 650 Mg/ 20 ml Liq) 650 mg Q6H PRN NG FEVER 11/12/16 08:45 11/24/16 22:16 Levetriacetam 100 ml @ 400 mls/hr Q8HR IV 11/12/16 22:00 Future Hold 11/30/16 05:35 Polyethylene Glycol (Miralax) 17 gm BID OG-TUBE 11/13/16 21:00 12/02/16 09:54 Lactulose (Lactulose Liq) 30 ml DAILY PO 11/14/16 09:00 Future Hold 12/02/16 09:54 Glycerin (Glycerin Adult Supp) 2 gm BID PRN RECTAL CONSTIPATION - SEVERE 11/13/16 15:00 Hydralazine HCl (Apresoline Inj) 20 mg Q4H PRN IV PUSH SBP>150, DBP>90 11/14/16 02:15 11/14/16 03:07 Metoprolol Tartrate (Lopressor) 25 mg Q12HR PO 11/16/16 09:30 12/06/16 08:59 Pharmacy Profile Note 0 ml @ 0 mls/hr UNSCH OTHER 11/17/16 08:15 Fosphenytoin Sodium 100 mgpe/ Sodium Chloride 52 ml @ 208 mls/hr Q6HR IV 11/18/16 13:00 Future Hold 11/30/16 13:10 Terbutaline Sulfate (Brethine Inj) 1 mg UNSCH PRN SQ For Extravasation 11/20/16 16:30 Furosemide (Lasix Inj) 40 mg DAILY IV PUSH 11/22/16 11:00 12/06/16 08:59 Insulin Aspart (NovoLOG SUPPLEMENTAL SCALE) 1 ACHS SLIDING SCALE SQ 11/24/16 17:00 12/06/16 12:00 Dextrose (D50w (Syr) Inj) 50 ml UNSCH PRN IV HYPOGLYCEMIA-SEE COMMENTS 11/25/16 09:30 11/25/16 09:46 Megestrol Acetate (Megace Liq) 400 mg DAILY PO 11/26/16 09:00 12/06/16 08:59 Levetriacetam (Keppra) 1,000 mg Q8HR PO 11/30/16 22:00 12/06/16 13:33 Phenytoin (Dilantin) 100 mg Q6HR PO 11/30/16 19:45 12/06/16 12:45 Vancomycin HCl 1750 mg/Sodium Chloride 517.5 ml @ 257.5 mls/ hr Q24H IV 12/01/16 18:00 12/05/16 17:01 Mupirocin (Bactroban 2% Cream) 1 applic Q12HR TOPICAL 12/02/16 21:00 12/06/16 09:00 Fluconazole (Diflucan) 100 mg DAILY PO 12/04/16 09:00 12/06/16 08:59 Collagenase (Santyl Oint) 1 applic DAILY TOPICAL 12/04/16 12:00 12/06/16 09:00 Albuterol/ Ipratropium (Duoneb Neb) 1 ampule Q6HR WHILE AWAKE NEB NEB 12/04/16 14:00 12/06/16 12:06 Hyoscyamine Sulfate (Levsin) 0.125 mg Q4H PRN PO abdo spasm 12/04/16 11:30 Heparin Sodium (Porcine) (Heparin Central Flush) 200 units DAILY IV FLUSH 12/05/16 12:00 Medical Decision Making Impression and Plan Medical Decision Making Impression and Plan Impression: 1. Traumatic brain injury 2. Hypertension 3. Diabetes 4. Respiratory failure 5. Seizures Plan: Continue with neuro checks. Non-chemical DVT prophylaxis. Ulcer prophylaxis. Continue rehabilitation efforts. Continue Current Care. Total Minutes: 18 Galen Jimenes MD Dec 06, 2016 13:47
[2016-12-06] MEDS: VANCOMYCIN INJ 1,750 MG in SODIUM CHLORID 0.9% 500 ML INJ 500 ML IV SCH (17:13)
[2016-12-06] MEDS: TAMSULOSIN HCL 0.4 MG CAP PO SCH (20:40)
[2016-12-06] MEDS: ACETAMINOPHEN 650 MG/20.3 ML UDC NG PRN (23:19)
[2016-12-07] VITALS (9 sets, daily range): BP systolic 66–160; BP diastolic 63–84; PULSE 104–126; RESP 18–20; TEMP 98.4–102.2; O2SAT 90–98
[2016-12-07] MEDS: PHENYTOIN SODIUM 100 MG CAP PO SCH ×3 (05:02→17:05)
[2016-12-07] MEDS: levETIRAcetam 500 MG TAB PO SCH ×3 (05:02→21:52)
[2016-12-07] MEDS: CHLORHEXIDINE 0.12% (ORAL KIT) 15 ML CUP MT SCH ×2 (08:00→21:56)
[2016-12-07] MEDS: INSULIN ASPART SUPPLEMENTAL SCALE SQ SCH ×4 (08:00→21:59)
[2016-12-07] MEDS: TOLTERODINE TARTRATE 2 MG CAP LA PO SCH (08:46)
[2016-12-07] MEDS: FLUCONAZOLE 100 MG TAB PO SCH (08:47)
[2016-12-07] MEDS: LANSOPRAZOLE SOLUTAB 30 MG TAB NG SCH (08:47)
[2016-12-07] MEDS: FUROSEMIDE 40 MG/4 ML VIAL IV PUSH SCH (08:47)
[2016-12-07] MEDS: METOPROLOL TARTRATE 25 MG TAB PO SCH ×2 (08:47→21:56)
[2016-12-07] MEDS: FINASTERIDE 5 MG TAB PO SCH (08:47)
[2016-12-07] MEDS: SODIUM CHLORIDE 0.9% FLUSH 10 ML FLUSH IV FLUSH SCH ×2 (08:47→21:56)
[2016-12-07] MEDS: DOCUSATE SODIUM 100 MG/10 ML UDC PO SCH ×2 (08:47→21:52)
[2016-12-07] MEDS: MEGESTROL ACETATE SUSP 400 MG/10 ML CUP PO SCH (08:47)
[2016-12-07] MEDS: ARTIFICIAL TEARS OPTH SOLN 15 ML BTL EACH EYE SCH ×3 (08:47→17:05)
[2016-12-07] MEDS: MUPIROCIN 2% CREAM 15 GM TOPICAL SCH ×2 (08:48→21:57)
[2016-12-07] MEDS: SODIUM CHLORIDE 0.9% FLUSH 10 ML FLUSH IVF SCH (08:48)
[2016-12-07] MEDS: POLYETHYLENE GLYCOL 17 GM PKG OG-TUBE SCH ×2 (08:48→21:52)
[2016-12-07] MEDS: COLLAGENASE OINT 30 GM TUBE TOPICAL SCH (08:49)
[2016-12-07] MEDS: RESP: ALBUTEROL 2.5 MG/IPRATROPIUM 0.5 MG NEB (SCH) NEB ×3 (09:41→19:43)
[2016-12-07 10:03] LABS: HEMATOCRIT 31.6 % (39.0-51.0); MEAN CORPUSCULAR HEMOGLOBIN 29.4 PG (27.0-34.0); MEAN CORPUSCULAR HGB CONC 33.4 % (32.0-36.0); PLATELET COUNT 323 TH/MM3 (150-450); RED BLOOD COUNT 3.59 MIL/MM3 (4.50-5.90); RED CELL DISTRIBUTION WIDTH 18.5 % (11.6-17.2); REVIEW FLAG FINAL; WHITE BLOOD COUNT 16.4 TH/MM3 (4.0-11.0)
[2016-12-07 10:07] LABS: BICARBONATE 27.8 MEQ/L (21.0-32.0); POTASSIUM 3.4 MEQ/L (3.5-5.1)
--- NOTE | 2016-12-07 10:23 | HHI.PR ---
Objective Vitals Vital Signs Date Time Temp Pulse Resp B/P (MAP) Pulse Ox O2 Delivery O2 Flow Rate FiO2 12/07/16 09:41 95 21 12/07/16 09:30 Nasal Cannula 3.00 12/07/16 08:16 98.5 104 18 160/84 (109) 98 12/07/16 05:29 98.7 105 18 150/70 (96) 96 12/07/16 00:36 100.1 104 18 132/63 (86) 95 12/06/16 20:49 94 Nasal Cannula 3.00 12/06/16 20:27 99.0 120 18 130/61 (84) 94 12/06/16 19:45 Nasal Cannula 2.00 12/06/16 17:12 99.2 120 20 147/69 (95) 92 12/06/16 12:00 98.0 109 18 127/65 (85) 96 12/06/16 10:30 Nasal Cannula 3.00 I/O 12/06/16 12/06/16 12/06/16 12/07/16 12/07/16 12/07/16 07:00 15:00 23:00 07:00 15:00 23:00 Intake Total 60 ml 720 ml 480 ml Output Total 500 ml 1100 ml 500 ml Balance -440 ml -380 ml -20 ml Intake Oral 60 ml 720 ml 480 ml Output Urine Total 500 ml 1100 ml 500 ml # Bowel Movements 1 1 Result Diagram: 12/07/1659 12/07/1659 Objective Remarks GENERAL: This is a thin-appearing, well-developed patient, in no apparent distress. SKIN: Warm and dry. HEENT: Normocephalic. Pupils equal round and reactive. Nose without bleeding. Airway patent. NECK: Trachea midline. Supple. CARDIOVASCULAR: Regular rate and rhythm without murmurs, gallops, or rubs. RESPIRATORY: Diminished bilateral bases. No wheezes, rales, or rhonchi. GASTROINTESTINAL: Abdomen soft, non-tender, nondistended. Bowel Sounds normoactive x4. MUSCULOSKELETAL: Extremities without clubbing, cyanosis, bilateral lower extremity +1 edema. NEUROLOGICAL: Awake and alert. Moves all extremities weakly. Garbled speech. Date of Insertion: Nov 12, 2016 Line: Central Venous Catheter Side: Right Location: Internal, Jugular A/P Problem List: (1) Subdural hematoma ICD Code: I62.00 - Nontraumatic subdural hemorrhage, unspecified Status: Acute (2) Diabetes ICD Code: E11.9 - Type 2 diabetes mellitus without complications (3) Leukocytosis ICD Code: D72.829 - Elevated white blood cell count, unspecified Status: Acute (4) HTN (hypertension) ICD Code: I10 - Essential (primary) hypertension Status: Chronic (5) Dysphagia ICD Code: R13.10 - Dysphagia, unspecified (6) Urinary tract infection ICD Code: N39.0 - Urinary tract infection, site not specified Assessment and Plan 80 y/o with a history of HTN, DM, and BPH presented to the ED after a fall at home, with a LOC for 10-15 mins. Closed head injury Subdural hematoma Bilateral intracranial hemorrhaging - Managed by neurosurgery and no indication for surgery at this time - Neuro checks - Continue with Keppra and Dilantin by mouth; monitor level Metabolic encephalopathy-improving - head CT 12/01/16 noted - CXR with improving aeration - More awake and alert. Leukocytosis, ? Sepsis Anemia - Blood cultures NG x1 day. Will continue to follow. - Continue Vancomycin for now. Will DC when BC culture is negative - Hematology following. Ordered other testing R/O other bone marrow abnormality. Follow results. - Low grade temp 99.9 Respiratory insufficiency - Chest x-ray with improvement in aeration - Continue CPT - Schedule and DuoNeb when necessary and maintain oxygen saturation above 92% - Improving aeration with CXR Atrial fibrillation Hypertension - Continue with Lopressor 25mg BID - Oral anticoagulation contraindicated secondary to intracranial bleed - Monitor BP Trend Decubitus ulcer, DTI sacral area - Continue Santyl - Wound care following. Recommends mable thick coverage of santyl ointment to wound bed on sacral area and cover with Slightly moistened Maxorb II ( Calcium alginate) dressing. Cover with ABD pad secured with tape or cover with bordered gauze. 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 Monitor accucheck Occlusive DVT in cephalic vein right upper extremity - Hematology consultation appreciated however oral anticoagulation contraindicated - Avoid IV access RUE Dysphagia r/o - Barium swallow study normal Urinary tract infection - off Azactam 1 g IV every 12H - on Diflucan 100 mg by mouth daily 12/03/16 secondary to been culture positive for Jane Prophylaxis GI - lanosprazole DVT - SCD/pharmacological prophylaxis when okay with neurosurgery Discuss with patient, daughter, Dr. Veliz Discharge Planning Plan for patient to go back to [facility]. Pending Medicaid application. CM following. Difficult SNF placement. Veronica Coley Dec 07, 2016 10:23
--- NOTE | 2016-12-07 10:35 | HHI.PR ---
Subjective Remarks Follow up visit SDH, UE DVT, HTN, DM2. Patient seen and examined today. Daughter at the bedside. Daughter reports that patient was awake overnight and usually now being sleepy at the day time. Has not been OOB. daughter reports prabhakar has been tugged by patient and is now having minimal leaking. Patient stimulated by name call. Opens eyes, patient said "hello" and when asked, states "I am okay". Follows some commands. Denies any complaints. Objective Vitals Vital Signs Date Time Temp Pulse Resp B/P (MAP) Pulse Ox O2 Delivery O2 Flow Rate FiO2 12/07/16 09:41 95 21 12/07/16 09:30 Nasal Cannula 3.00 12/07/16 08:16 98.5 104 18 160/84 (109) 98 12/07/16 05:29 98.7 105 18 150/70 (96) 96 12/07/16 00:36 100.1 104 18 132/63 (86) 95 12/06/16 20:49 94 Nasal Cannula 3.00 12/06/16 20:27 99.0 120 18 130/61 (84) 94 12/06/16 19:45 Nasal Cannula 2.00 12/06/16 17:12 99.2 120 20 147/69 (95) 92 12/06/16 12:00 98.0 109 18 127/65 (85) 96 12/06/16 10:30 Nasal Cannula 3.00 I/O 12/06/16 12/06/16 12/06/16 12/07/16 12/07/16 12/07/16 07:00 15:00 23:00 07:00 15:00 23:00 Intake Total 60 ml 720 ml 480 ml Output Total 500 ml 1100 ml 500 ml Balance -440 ml -380 ml -20 ml Intake Oral 60 ml 720 ml 480 ml Output Urine Total 500 ml 1100 ml 500 ml # Bowel Movements 1 1 Result Diagram: 12/07/1659 12/07/1659 Imaging Last Impressions Chest X-Ray 12/04/16 0000 Signed Impressions: Service Date/Time: November 11:58 - CONCLUSION: Improving aeration. Lonnie Blanchard MD Upper Extremity Ultrasound 12/02/16 0000 Signed Impressions: Service Date/Time: Saturday, December 03, 2016 00:53 - CONCLUSION: 1. Occlusive DVT in the cephalic and basilic vein on the right. Alex Goode MD Head CT 12/01/16 0000 Signed Impressions: Service Date/Time: Thursday, December 01, 2016 13:14 - CONCLUSION: Evolving intracranial hemorrhagic foci as above, both intra-axial and extra-axial. Jesus Lee MD Modified Barium Swallow 11/30/16 0000 Signed Impressions: Service Date/Time: Wednesday, November 30, 2016 00:00 - CONCLUSION: Please refer to speech pathology report for full details. Lonnie Cook MD Transcranial Doppler Study Complete 11/17/16 0000 Signed Impressions: Service Date/Time: Thursday, November 17, 2016 10:03 - CONCLUSION: 1. Nondiagnostic examination due to poor transcranial windows. Konstantin Dash MD Abdomen X-Ray 11/12/16 0000 Signed Impressions: Service Date/Time: Saturday, November 12, 2016 08:23 - CONCLUSION: 1. Gastric tube in good position. 2. Probable right renal stones. Narayan Coulter MD Cervical Spine CT 11/09/161950 Signed Impressions: Service Date/Time: Wednesday, November 09, 2016 20:14 - CONCLUSION: Negative trauma CT. Cj Isidro MD Objective Remarks GENERAL: This is a thin-appearing, well-developed patient, in no apparent distress. SKIN: Warm and dry. HEENT: Normocephalic. Pupils equal round and reactive. Nose without bleeding. Airway patent. NECK: Trachea midline. Supple. CARDIOVASCULAR: Regular rate and rhythm without murmurs, gallops, or rubs. RESPIRATORY: Diminished bilateral bases. No wheezes, rales, or rhonchi. GASTROINTESTINAL: Abdomen soft, non-tender, nondistended. Bowel Sounds normoactive x4. MUSCULOSKELETAL: Extremities without clubbing, cyanosis, bilateral lower extremity +1 edema. NEUROLOGICAL: Awake and alert. Moves all extremities weakly. Clear speech. Date of Insertion: Nov 12, 2016 Line: Central Venous Catheter Side: Right Location: Internal, Jugular A/P Problem List: (1) Subdural hematoma ICD Code: I62.00 - Nontraumatic subdural hemorrhage, unspecified Status: Acute (2) Diabetes ICD Code: E11.9 - Type 2 diabetes mellitus without complications (3) Leukocytosis ICD Code: D72.829 - Elevated white blood cell count, unspecified Status: Acute (4) HTN (hypertension) ICD Code: I10 - Essential (primary) hypertension Status: Chronic (5) Dysphagia ICD Code: R13.10 - Dysphagia, unspecified (6) Urinary tract infection ICD Code: N39.0 - Urinary tract infection, site not specified Assessment and Plan 80 y/o with a history of HTN, DM, and BPH presented to the ED after a fall at home, with a LOC for 10-15 mins. Closed head injury Subdural hematoma Bilateral intracranial hemorrhaging - Managed by neurosurgery and no indication for surgery at this time - Neuro checks - Continue with Keppra and Dilantin by mouth; monitor level - Improving mentation Metabolic encephalopathy-improving - head CT 12/01/16 noted - CXR with improving aeration - More awake and alert. Leukocytosis, ? Sepsis Anemia - Blood cultures NG x1 day. Will continue to follow. - Continue Vancomycin for now. Will DC when BC culture is negative - Hematology following. Ordered other testing R/O other bone marrow abnormality. Follow results. Respiratory insufficiency - Chest x-ray with improvement in aeration - Continue CPT - Schedule and DuoNeb when necessary and maintain oxygen saturation above 92% - Improving aeration with CXR Atrial fibrillation Hypertension - Continue with Lopressor 25mg BID - Oral anticoagulation contraindicated secondary to intracranial bleed - Monitor BP Trend Decubitus ulcer, DTI sacral area - Continue Santyl - Wound care following. Recommends mable thick coverage of santyl ointment to wound bed on sacral area and cover with Slightly moistened Maxorb II ( Calcium alginate) dressing. Cover with ABD pad secured with tape or cover with bordered gauze. 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 Monitor accucheck Occlusive DVT in cephalic vein right upper extremity - Hematology consultation appreciated however oral anticoagulation contraindicated - Avoid IV access RUE Dysphagia r/o - Barium swallow study normal Urinary tract infection - off Azactam 1 g IV every 12H - on Diflucan 100 mg by mouth daily 12/03/16 secondary to been culture positive for Jane Prabhakar leaking - Reinflate, if continues to leak will reinsert Generalized weakness - Has not been OOB to chair. Attempts by PT unsuccessful because he is drowsy in AM. Waking hours at night. Will request stretcher chair and increase activity in AM. May benefit with sleep program. Prophylaxis GI - lanosprazole DVT - SCD/pharmacological prophylaxis when okay with neurosurgery Discuss with patient, daughter, Rosalbasherrell Discharge Planning Plan for patient to go back to [facility]. Pending Medicaid application. CM following. Difficult SNF placement. Veronica Coley Dec 07, 2016 10:35
--- NOTE | 2016-12-07 12:21 | HHI.NSPN ---
History Chief Complaint: Unable to obtain due to patient's clinical condition. Interval History Chief Complaint: Unable to obtain due to patient's clinical condition. Interval History 11/09: 80-year-old male who according to his family was going up a step into the house with his cane when he fell backwards, striking the back of his head. He was reportedly unconscious for 10-15 minutes. He then had some shaking in the extremities as he was waking up. He has been somewhat sleepy and a little confused since he woke up at the patient's family states that he is conversing reasonably well with them. He normally is fairly independent, ambulating with a cane and is usually mentally alert with only mild memory loss. Positive emesis reported. Patient has no complaint of headache or neck pain. No complaint of low back or joint pain. 11/10: nursing reports agitated overnight, currently sleeping. f/u CT Head completed, moves all four extremities. son translated - oriented to name and place only. 11/11: Notified by PARVIN Stoner, that Nursing had notified her that the patient's mental status was worse this morning and that she had ordered a stat CT brain. When seen this morning the patient is obtunded and not answering to verbal stimuli. Nursing reports that CT had called and was sending someone up to transport the patient to the scanner. She stated that the patient did receive morphine and hydrocodone during the night for pain because he was agitated. 11/12: The patient has been intubated this morning due to persistent decreased mental status. Possibly a few more episodes of seizure activity reported last evening. He is continuing on Dilantin and Keppra for seizures. 11/13: The patient still is intubated, mechanically ventilated and sedated with midazolam. He does not respond to noxious stimulation. The EEG done yesterday morning did demonstrate seizure activity. Neurology evaluated the patient yesterday and adjusted his anti-epileptic medications. An EEG was done this morning prior to the patient being seen. 11/14: The patient remains intubated. A midazolam drip is still infusing as is a fentanyl drip. A repeat Ct brain this morning demonstrated evolving contusions and haemorrhages. 11/15: The patient is intubated without any sedation. The midazolam and fentanyl infusions were discontinued yesterday. A 3% saline drip continues to infuse. He did have a slight twitching of the eyelids when his name was called but no eye opening. 11/16: This morning the patient opened his eyes to verbal stimulation. He continues to be intubated without any sedation. 11/17/16: Patient remains intubated. He had a dose of intravenous sedation last night for agitation. Remains relatively alert. Positive fever last evening. Some difficulty with hemodynamic instability last evening. 11/18: The patient is on a cooling blanket with ice packs when seen this morning. He continues to be intubated. He does look to whomever is speaking and did follow commands. 11/19: The patient is asleep but awakens on his own. He was extubated this morning and is now on a nasal cannula. He follows commands and moves all his extremities to a degree. He does tell his daughter that he is tired. The family reports earlier that the patient did ask where his and son were by name. 11/20: When seen this afternoon the patient had just been transferred to a regular med/surg floor. He appears mildly distressed and is moaning. His daughter states that he has said he has pain all over. 11/21: Notified by [facility] physician (Dr Mejia, PGY1) that patient was having increased respiratory effort. He reported that the patient's oxygen saturation was satisfactory but the chest x-ray demonstrated fluid overload. Therefore 40 mg furosemide IV was ordered as was a nebuliser treatment. When seen the patient appeared moderately distress and had just received the furosemide with the nebuliser treatment ongoing. The Charge Nurse reported that the patient was lethargic and not responding to commands. He reported that the Probation And Patrol Agent is aware that the patient is being transferred to [facility] for further care and management. The Hospitalist was present and evaluating the patient. 11/22: Patient not opening eyes or following commands. Not verbalizing. 11/23: Pt opens eyes and tracks around room. He is restless. Not following commands for staff or reportedly family. Pt not verbalizing. 12/04: Pt opens eyes. Not following commands. Not verbalizing. 12/05: Patient opens eyes to voice, smiles, questionable followed simple command left UE x one, not following commands other extremities. Not verbalizing. 12/06: Patient's Daughter at bedside. Patient opens eyes to voice, smiles, questionable followed simple command left UE x one, not following commands other extremities. Not verbalizing. 12/07: Patient opens eyes to voice, smiles, questionable followed simple command left UE x one, not following commands other extremities. Not verbalizing. System Review Comments Not able to obtain given clinical condition. Exam Results Vital Signs Date Time Temp Pulse Resp B/P (MAP) Pulse Ox O2 Delivery O2 Flow Rate FiO2 12/07/16 12:04 98.4 105 18 130/70 (90) 91 12/07/16 09:41 21 12/07/16 09:30 Nasal Cannula 3.00 Intake and Output 12/07/16 12/07/16 12/08/16 08:00 16:00 00:00 Intake Total 480 ml Output Total 500 ml Balance -20 ml Physical Examination GENERAL: Patient awake & fairly alert, interacts w/some coaxing, no apparent distress. SKIN: Warm, dry & intact w/o any evident rashes, ulcerations or lesions. HEENT: Normocephalic, atraumatic. NECK: No JVD, trachea midline. CARDIOVASCULAR: S1S2 w/RRR w/o M/G/R. RESPIRATORY: mild coarse bs bilaterally. GASTROINTESTINAL: Abdomen soft, nontender, positive bowel sounds. MUSCULOSKELETAL: No evident deformity or clubbing. NEUROLOGICAL: Awake. He does spontaneously move the LUE. Slight squeeze with the left hand and trace movement of the left foot to command , no response on right. Unable to assess sensation. Medical Decision Making Impression and Plan Medical Decision Making Impression and Plan Impression: 1. Traumatic brain injury 2. Hypertension 3. Diabetes 4. Respiratory failure 5. Seizures Plan: Continue with neuro checks. Non-chemical DVT prophylaxis. Ulcer prophylaxis. Continue rehabilitation efforts. Continue Current Care. Total Minutes: 18 Galen Jimenes MD Dec 07, 2016 12:21
[2016-12-07] MEDS ORDERED: POTASSIUM CHLORIDE 10 MEQ CONTROLLED RELEASE TAB PO ONE (13:00)
[2016-12-07] MEDS: VANCOMYCIN INJ 1,750 MG in SODIUM CHLORID 0.9% 500 ML INJ 500 ML IV SCH (17:05)
[2016-12-07] MEDS: ACETAMINOPHEN 650 MG/20.3 ML UDC NG PRN (19:35)
[2016-12-07] MEDS: TAMSULOSIN HCL 0.4 MG CAP PO SCH (22:17)
[2016-12-08] VITALS (7 sets, daily range): BP systolic 132–168; BP diastolic 63–76; PULSE 96–104; RESP 18–20; TEMP 98.2–98.6; O2SAT 95–100
[2016-12-08] MEDS: PHENYTOIN SODIUM 100 MG CAP PO SCH ×5 (00:30→16:52)
[2016-12-08] MEDS: levETIRAcetam 500 MG TAB PO SCH ×3 (05:19→21:21)
[2016-12-08] MEDS: CHLORHEXIDINE 0.12% (ORAL KIT) 15 ML CUP MT SCH ×2 (08:00→21:17)
[2016-12-08] MEDS: INSULIN ASPART SUPPLEMENTAL SCALE SQ SCH ×4 (08:00→21:21)
[2016-12-08] MEDS: SODIUM CHLORIDE 0.9% FLUSH 10 ML FLUSH IVF SCH (08:47)
[2016-12-08] MEDS: POLYETHYLENE GLYCOL 17 GM PKG OG-TUBE SCH ×2 (08:47→21:18)
[2016-12-08] MEDS: ARTIFICIAL TEARS OPTH SOLN 15 ML BTL EACH EYE SCH ×3 (08:47→16:46)
[2016-12-08] MEDS: TOLTERODINE TARTRATE 2 MG CAP LA PO SCH (08:56)
[2016-12-08] MEDS: FINASTERIDE 5 MG TAB PO SCH (08:56)
[2016-12-08] MEDS: FLUCONAZOLE 100 MG TAB PO SCH (08:56)
[2016-12-08] MEDS: MEGESTROL ACETATE SUSP 400 MG/10 ML CUP PO SCH (08:56)
[2016-12-08] MEDS: METOPROLOL TARTRATE 25 MG TAB PO SCH ×2 (08:56→21:20)
[2016-12-08] MEDS: LANSOPRAZOLE SOLUTAB 30 MG TAB NG SCH (08:57)
[2016-12-08] MEDS: MUPIROCIN 2% CREAM 15 GM TOPICAL SCH ×2 (08:57→21:21)
[2016-12-08] MEDS: SODIUM CHLORIDE 0.9% FLUSH 10 ML FLUSH IV FLUSH SCH ×2 (08:57→21:17)
[2016-12-08] MEDS: DOCUSATE SODIUM 100 MG/10 ML UDC PO SCH ×2 (08:57→21:00)
[2016-12-08] MEDS: FUROSEMIDE 40 MG/4 ML VIAL IV PUSH SCH (08:57)
[2016-12-08] MEDS: COLLAGENASE OINT 30 GM TUBE TOPICAL SCH (08:58)
--- NOTE | 2016-12-08 10:54 | HHI.PR ---
Subjective Remarks Follow up visit SDH, UE DVT, HTN, DM2. Patient seen and examined today. Daughter in law at the bedside. Patient laying in bed. Drowsy/ lethargic. States he is tired. As per family member, janel was up early to day and sat in stretcher chair for breakfast, then she had to be cleaned and bathe that it tired him out. States he still talks more at nigh but now sleeping on and off at night compared to previous days. No acute issues. Objective Vitals Vital Signs Date Time Temp Pulse Resp B/P (MAP) Pulse Ox O2 Delivery O2 Flow Rate FiO2 12/08/16 08:42 98.3 103 20 142/71 (94) 96 12/08/16 05:42 98.4 103 20 168/76 (106) 97 12/08/16 01:22 98.6 104 20 132/70 (90) 100 12/07/16 21:50 99.7 12/07/16 20:31 102.2 126 20 151/70 (97) 95 12/07/16 20:00 100 Nasal Cannula 3.00 12/07/16 19:44 91 Nasal Cannula 3.00 12/07/16 16:31 98.4 112 18 66/ 92 12/07/16 12:04 98.4 105 18 130/70 (90) 91 I/O 12/07/16 12/07/16 12/07/16 12/08/16 12/08/16 12/08/16 07:00 15:00 23:00 07:00 15:00 23:00 Intake Total 480 ml 1237.5 ml 120 ml Output Total 500 ml 1425 ml 500 ml Balance -20 ml -187.5 ml -380 ml Intake Oral 480 ml 720 ml 120 ml IV Total 517.5 ml Output Urine Total 500 ml 1425 ml 500 ml # Bowel Movements 1 Result Diagram: 12/07/16 0859 12/07/1659 Imaging Last Impressions Chest X-Ray 12/04/16 0000 Signed Impressions: Service Date/Time: November 11:58 - CONCLUSION: Improving aeration. Lonnie Blanchard MD Upper Extremity Ultrasound 12/02/16 0000 Signed Impressions: Service Date/Time: Saturday, December 03, 2016 00:53 - CONCLUSION: 1. Occlusive DVT in the cephalic and basilic vein on the right. Alex Goode MD Head CT 12/01/16 0000 Signed Impressions: Service Date/Time: Thursday, December 01, 2016 13:14 - CONCLUSION: Evolving intracranial hemorrhagic foci as above, both intra-axial and extra-axial. Jesus Lee MD Modified Barium Swallow 11/30/16 0000 Signed Impressions: Service Date/Time: Wednesday, November 30, 2016 00:00 - CONCLUSION: Please refer to speech pathology report for full details. Lonnie Cook MD Transcranial Doppler Study Complete 11/17/16 0000 Signed Impressions: Service Date/Time: Thursday, November 17, 2016 10:03 - CONCLUSION: 1. Nondiagnostic examination due to poor transcranial windows. Konstantin Dash MD Abdomen X-Ray 11/12/16 0000 Signed Impressions: Service Date/Time: Saturday, November 12, 2016 08:23 - CONCLUSION: 1. Gastric tube in good position. 2. Probable right renal stones. Narayan Coulter MD Cervical Spine CT 11/09/161950 Signed Impressions: Service Date/Time: Wednesday, November 09, 2016 20:14 - CONCLUSION: Negative trauma CT. Cj Isidro MD Objective Remarks GENERAL: This is a thin-appearing, well-developed patient, in no apparent distress. SKIN: Warm and dry. HEENT: Nose without bleeding. Airway patent. NECK: Trachea midline. Supple. CARDIOVASCULAR: Regular rate and rhythm without murmurs, gallops, or rubs. RESPIRATORY: Coarse breath sounds BUL. No wheezes, rales, or rhonchi. GASTROINTESTINAL: Abdomen soft, non-tender, nondistended. Bowel Sounds normoactive x4. MUSCULOSKELETAL: Extremities without clubbing, cyanosis, bilateral lower extremity +1 edema. NEUROLOGICAL: Drowsy. Moves all extremities weakly. Clear speech. Date of Insertion: Nov 12, 2016 Line: Central Venous Catheter Side: Right Location: Internal, Jugular A/P Problem List: (1) Subdural hematoma ICD Code: I62.00 - Nontraumatic subdural hemorrhage, unspecified Status: Acute (2) Diabetes ICD Code: E11.9 - Type 2 diabetes mellitus without complications (3) Leukocytosis ICD Code: D72.829 - Elevated white blood cell count, unspecified Status: Acute (4) HTN (hypertension) ICD Code: I10 - Essential (primary) hypertension Status: Chronic (5) Dysphagia ICD Code: R13.10 - Dysphagia, unspecified (6) Urinary tract infection ICD Code: N39.0 - Urinary tract infection, site not specified Assessment and Plan 80 y/o with a history of HTN, DM, and BPH presented to the ED after a fall at home, with a LOC for 10-15 mins. Closed head injury Subdural hematoma Bilateral intracranial hemorrhaging - Managed by neurosurgery and no indication for surgery at this time - Neuro checks - Continue with Keppra and Dilantin by mouth; monitor level - Improving mentation Metabolic encephalopathy-improving - head CT 12/01/16 noted - CXR with improving aeration - Continue neurochecks Leukocytosis, ? Sepsis Anemia - WBC 15.2 -->13.4 --> 16.4 - Continue Vancomycin for now. Will DC when BC culture is negative in 5 days. Blood cultures NG x4 days. - Hematology following. Ordered other testing R/O other bone marrow abnormality. Follow results. - Trend WBC Respiratory insufficiency - Chest x-ray with improvement in aeration - Continue CPT - Schedule and DuoNeb when necessary and maintain oxygen saturation above 92% - Improving aeration with CXR Atrial fibrillation Hypertension - Continue with Lopressor 25mg BID - Oral anticoagulation contraindicated secondary to intracranial bleed - Monitor BP Trend Decubitus ulcer, DTI sacral area - Continue Santyl - Wound care following. Recommends mable thick coverage of santyl ointment to wound bed on sacral area and cover with Slightly moistened Maxorb II ( Calcium alginate) dressing. Cover with ABD pad secured with tape or cover with bordered gauze. 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 Monitor accucheck Occlusive DVT in cephalic vein right upper extremity - Hematology consultation appreciated however oral anticoagulation contraindicated - Avoid IV access RUE Dysphagia r/o - Barium swallow study normal Urinary tract infection - off Azactam 1 g IV every 12H - on Diflucan 100 mg by mouth daily 12/03/16 secondary to been culture positive for Jane - Plan for voiding trial when more awake and active Generalized weakness, prolonged hospitalization - Has not been OOB to chair. - Attempts by PT unsuccessful because he is drowsy in AM. Waking hours at night, improving - Stretcher chair and increase activity in AM. Participates - May benefit with sleep program. Prophylaxis GI - lanosprazole DVT - SCD/pharmacological prophylaxis when okay with neurosurgery Discuss with patient, daughter, Dr. Veliz Discharge Planning Plan for patient to go back to [facility]. Pending Medicaid application. CM following. Difficult SNF placement. Veronica Coley Dec 08, 2016 10:54
[2016-12-08 11:00] LABS: BICARBONATE 28.2 MEQ/L (21.0-32.0); POTASSIUM 3.5 MEQ/L (3.5-5.1)
[2016-12-08] MEDS: RESP: ALBUTEROL 2.5 MG/IPRATROPIUM 0.5 MG NEB (SCH) NEB ×2 (14:14→20:21)
[2016-12-08] MEDS: VANCOMYCIN INJ 1,750 MG in SODIUM CHLORID 0.9% 500 ML INJ 500 ML IV SCH (16:46)
[2016-12-08] MEDS: TAMSULOSIN HCL 0.4 MG CAP PO SCH (21:18)
[2016-12-09] VITALS (8 sets, daily range): BP systolic 99–144; BP diastolic 54–70; PULSE 92–147; RESP 18–20; TEMP 97.8–99.7; O2SAT 92–98
[2016-12-09] MEDS: PHENYTOIN SODIUM 100 MG CAP PO SCH ×4 (01:02→17:27)
[2016-12-09] MEDS: levETIRAcetam 500 MG TAB PO SCH ×3 (07:03→21:37)
[2016-12-09] MEDS: CHLORHEXIDINE 0.12% (ORAL KIT) 15 ML CUP MT SCH ×2 (07:22→21:57)
[2016-12-09] MEDS: INSULIN ASPART SUPPLEMENTAL SCALE SQ SCH ×4 (08:00→21:46)
[2016-12-09] MEDS: RESP: ALBUTEROL 2.5 MG/IPRATROPIUM 0.5 MG NEB (SCH) NEB ×3 (08:20→19:10)
[2016-12-09] MEDS: POLYETHYLENE GLYCOL 17 GM PKG OG-TUBE SCH ×2 (08:21→21:53)
[2016-12-09] MEDS: SODIUM CHLORIDE 0.9% FLUSH 10 ML FLUSH IVF SCH (08:33)
[2016-12-09] MEDS: FUROSEMIDE 40 MG/4 ML VIAL IV PUSH SCH (08:33)
[2016-12-09] MEDS: ARTIFICIAL TEARS OPTH SOLN 15 ML BTL EACH EYE SCH ×3 (08:33→17:27)
[2016-12-09] MEDS: SODIUM CHLORIDE 0.9% FLUSH 10 ML FLUSH IV FLUSH SCH ×2 (08:33→21:56)
[2016-12-09] MEDS: DOCUSATE SODIUM 100 MG/10 ML UDC PO SCH ×2 (08:37→21:35)
[2016-12-09] MEDS: MEGESTROL ACETATE SUSP 400 MG/10 ML CUP PO SCH (08:37)
[2016-12-09] MEDS: FLUCONAZOLE 100 MG TAB PO SCH (08:40)
[2016-12-09] MEDS: LANSOPRAZOLE SOLUTAB 30 MG TAB NG SCH (08:40)
[2016-12-09] MEDS: TOLTERODINE TARTRATE 2 MG CAP LA PO SCH (08:40)
[2016-12-09] MEDS: METOPROLOL TARTRATE 25 MG TAB PO SCH ×2 (08:40→21:37)
[2016-12-09] MEDS: FINASTERIDE 5 MG TAB PO SCH (08:40)
[2016-12-09 08:45] LABS: MEAN CELL VOLUME 88.6 FL (80.0-100.0); MEAN CORPUSCULAR HEMOGLOBIN 28.5 PG (27.0-34.0); MEAN CORPUSCULAR HGB CONC 32.2 % (32.0-36.0); PLATELET COUNT 324 TH/MM3 (150-450); RED BLOOD COUNT 3.28 MIL/MM3 (4.50-5.90); REVIEW FLAG FINAL
[2016-12-09] MEDS: COLLAGENASE OINT 30 GM TUBE TOPICAL SCH (08:45)
[2016-12-09] MEDS: MUPIROCIN 2% CREAM 15 GM TOPICAL SCH ×2 (08:45→21:52)
--- NOTE | 2016-12-09 10:54 | HHI.PR ---
Subjective Remarks Follow up visit SDH, UE DVT, HTN, DM2. Patient seen and examined today. Daughter at the bedside. Patient laying in bed. Drowsy/ lethargic. Patient said hello and that he is doing okay and went back to sleep. Daughter states that patient did not sleep again last night and was talking to everyone. States last night he has complaints of generalized pain but does not describe or elaborates on it. Appears comfortable. No acute issues. Objective Vitals Vital Signs Date Time Temp Pulse Resp B/P (MAP) Pulse Ox O2 Delivery O2 Flow Rate FiO2 12/09/16 08:51 98.1 147 18 112/70 (84) 95 12/09/16 08:50 95 Nasal Cannula 2.00 12/09/16 08:23 95 Nasal Cannula 3.00 12/09/16 04:00 97.8 92 18 141/67 (91) 92 12/09/16 00:00 98 Nasal Cannula 2.00 12/09/16 00:00 98.5 111 18 144/68 (93) 95 12/08/16 20:21 96 Nasal Cannula 3.00 12/08/16 20:15 100 Nasal Cannula 3.00 12/08/16 20:00 98.5 104 18 141/69 (93) 96 12/08/16 15:54 98.3 102 20 133/64 (87) 96 12/08/16 12:20 95 Nasal Cannula 2.00 12/08/16 12:19 98.2 96 20 133/63 (86) 95 I/O 12/08/16 12/08/16 12/08/16 12/09/16 12/09/16 12/09/16 07:00 15:00 23:00 07:00 15:00 23:00 Intake Total 120 ml 480 ml 517.5 ml 60 ml Output Total 500 ml 875 ml 800 ml Balance -380 ml -395 ml 517.5 ml 60 ml -800 ml Intake Oral 120 ml 480 ml 60 ml IV Total 517.5 ml Output Urine Total 500 ml 875 ml 800 ml # Bowel Movements 1 2 Result Diagram: 12/09/16 0806 12/08/16 0921 Imaging Last Impressions Chest X-Ray 12/04/16 0000 Signed Impressions: Service Date/Time: November 11:58 - CONCLUSION: Improving aeration. Lonnie Blanchard MD Upper Extremity Ultrasound 12/02/16 0000 Signed Impressions: Service Date/Time: Saturday, December 03, 2016 00:53 - CONCLUSION: 1. Occlusive DVT in the cephalic and basilic vein on the right. Alex Goode MD Head CT 12/01/16 0000 Signed Impressions: Service Date/Time: Thursday, December 01, 2016 13:14 - CONCLUSION: Evolving intracranial hemorrhagic foci as above, both intra-axial and extra-axial. Jesus Lee MD Modified Barium Swallow 11/30/16 0000 Signed Impressions: Service Date/Time: Wednesday, November 30, 2016 00:00 - CONCLUSION: Please refer to speech pathology report for full details. Lonnie Cook MD Transcranial Doppler Study Complete 11/17/16 Signed Impressions: Service Date/Time: Thursday, November 17, 2016 10:03 - CONCLUSION: 1. Nondiagnostic examination due to poor transcranial windows. Konstantin Dash MD Abdomen X-Ray 11/12/16 Signed Impressions: Service Date/Time: Saturday, November 12, 2016 08:23 - CONCLUSION: 1. Gastric tube in good position. 2. Probable right renal stones. Narayan Coulter MD Cervical Spine CT 11/09/161950 Signed Impressions: Service Date/Time: Wednesday, November 09, 2016 20:14 - CONCLUSION: Negative trauma CT. Cj Isidro MD Objective Remarks GENERAL: This is a thin-appearing, well-developed patient, in no apparent distress. SKIN: Warm and dry. HEENT: Nose without bleeding. Airway patent. NECK: Trachea midline. Supple. CARDIOVASCULAR: Tachycardia without murmurs, gallops, or rubs. RESPIRATORY: Coarse breath sounds BUL. No wheezes, rales, or rhonchi. GASTROINTESTINAL: Abdomen soft, non-tender, nondistended. Bowel Sounds normoactive x4. MUSCULOSKELETAL: Extremities without clubbing, cyanosis, bilateral lower extremity +1 edema. NEUROLOGICAL: Drowsy. Moves all extremities weakly. Clear speech. Date of Insertion: Nov 12, 2016 Line: Central Venous Catheter Side: Right Location: Internal, Jugular A/P Problem List: (1) Subdural hematoma ICD Code: I62.00 - Nontraumatic subdural hemorrhage, unspecified Status: Acute (2) Diabetes ICD Code: E11.9 - Type 2 diabetes mellitus without complications (3) Leukocytosis ICD Code: D72.829 - Elevated white blood cell count, unspecified Status: Acute (4) HTN (hypertension) ICD Code: I10 - Essential (primary) hypertension Status: Chronic (5) Dysphagia ICD Code: R13.10 - Dysphagia, unspecified (6) Urinary tract infection ICD Code: N39.0 - Urinary tract infection, site not specified Assessment and Plan 80 y/o with a history of HTN, DM, and BPH presented to the ED after a fall at home, with a LOC for 10-15 mins. Closed head injury Subdural hematoma Bilateral intracranial hemorrhaging - Managed by neurosurgery and no indication for surgery at this time - Neuro checks, seizure precautions - Continue with Keppra and Dilantin by mouth; monitor level - Improving mentation Metabolic encephalopathy-improving - head CT 12/01/16 showed Bilateral hypodense subdural hematomas are seen in the occipital region and along the tentorium cerebelli on the right as well as small right frontal subdural hematoma unchanged. The left frontal parenchymal bleed is decreased in density with a small amount of edema identified. There is atrophy and moderate confluent hypodense white matter disease in the periventricular regions. The right frontal and left insular bleeds are much less conspicuous with a small amount of residual high density in the right frontal region with a small amount of surrounding edema. There is no midline shift or mass effect. Vascular calcifications are noted. No fractures. - CXR with improving aeration - Continue neurochecks Leukocytosis, ? Sepsis Anemia - WBC 15.2 -->13.4 --> 16.4 --> 13.0 - Hematology following. Ordered other testing R/O other bone marrow abnormality. Follow results. - Blood cultures no growth in 5 days. DC Vanco as planned. - Continue to trend WBC Respiratory insufficiency - Chest x-ray with improvement in aeration - Continue CPT - Schedule and DuoNeb when necessary and maintain oxygen saturation above 92% - Improving aeration with CXR Atrial fibrillation Hypertension - Continue with Lopressor 25mg BID - Oral anticoagulation contraindicated secondary to intracranial bleed - Monitor BP Trend - HR elevated 120s-140's. On exam HR 90s-100s. Continue to monitor. Decubitus ulcer, DTI sacral area - Continue Santyl - Wound care following. Recommends mable thick coverage of santyl ointment to wound bed on sacral area and cover with Slightly moistened Maxorb II ( Calcium alginate) dressing. Cover with ABD pad secured with tape or cover with bordered gauze. 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 Monitor accucheck Occlusive DVT in cephalic vein right upper extremity - Hematology consultation appreciated however oral anticoagulation contraindicated - Avoid IV access RUE Dysphagia r/o - Barium swallow study normal Urinary tract infection - off Azactam 1 g IV every 12H - on Diflucan 100 mg by mouth daily 12/03/16 secondary to been culture positive for Jane - Plan for voiding trial when more awake and active Generalized weakness, prolonged hospitalization - Has not been OOB to chair. - Attempts by PT unsuccessful because he is drowsy in AM. Waking hours at night, improving - Stretcher chair and increase activity in AM. - May benefit with sleep program. Prophylaxis GI - lanosprazole DVT - SCD/pharmacological prophylaxis when okay with neurosurgery Discuss with patient, daughter, Dr. Veliz Discharge Planning Plan for patient to go back to [facility]. Pending Medicaid application. CM following. Difficult SNF placement. Veronica Coley Dec 09, 2016 10:54
--- NOTE | 2016-12-09 11:44 | PD.ONC.PN ---
Subjective Subjective Remarks Resting in bed with daughter at bedside. Objective Data Date Time Temp Pulse Resp B/P (MAP) Pulse Ox O2 Delivery O2 Flow Rate FiO2 12/09/16 08:51 98.1 147 18 112/70 (84) 95 12/09/16 08:50 95 Nasal Cannula 2.00 12/09/16 08:23 95 Nasal Cannula 3.00 12/09/16 04:00 97.8 92 18 141/67 (91) 92 12/09/16 00:00 98 Nasal Cannula 2.00 12/09/16 00:00 98.5 111 18 144/68 (93) 95 12/08/16 20:21 96 Nasal Cannula 3.00 12/08/16 20:15 100 Nasal Cannula 3.00 12/08/16 20:00 98.5 104 18 141/69 (93) 96 12/08/16 15:54 98.3 102 20 133/64 (87) 96 12/08/16 12:20 95 Nasal Cannula 2.00 12/08/16 12:19 98.2 96 20 133/63 (86) 95 12/09/16 12/09/16 12/09/16 07:00 15:00 23:00 Intake Total 60 ml Output Total 800 ml Balance 60 ml -800 ml Result Diagram: 12/09/16 0806 12/08/16 0921 Laboratory Results Laboratory Tests Test 12/09/16 08:06 White Blood Count 13.0 TH/MM3 Red Blood Count 3.28 MIL/MM3 Hemoglobin 9.3 GM/DL Hematocrit 29.0 % Mean Corpuscular Volume 88.6 FL Mean Corpuscular Hemoglobin 28.5 PG Mean Corpuscular Hemoglobin Concent 32.2 % Red Cell Distribution Width 18.0 % Platelet Count 324 TH/MM3 Mean Platelet Volume 7.1 FL Administered Medications Medications (Trade) Dose Ordered Sig/Gregg Route PRN Reason Start Time Stop Time Status Last Admin Dose Admin Finasteride (Proscar) 5 mg DAILY PO 11/10/16 09:00 12/09/16 08:40 Tamsulosin HCl (Flomax) 0.4 mg HS PO 11/10/16 21:00 12/08/16 21:18 Tolterodine Tartrate (Detrol La) 2 mg DAILY PO 11/10/16 09:00 12/09/16 08:40 Glucagon (Glucagon Inj) 1 mg UNSCH PRN OTHER HYPOGLYCEMIA-SEE COMMENTS 11/09/16 23:45 11/24/16 03:48 Lorazepam (Ativan Inj) 1 mg Q5M PRN IV SEIZURES 11/12/16 00:45 11/12/16 01:45 Chlorhexidine Gluconate (Peridex 0.12% Liq) 15 ml BID@08,20 MT 11/12/16 08:00 12/08/16 21:17 Sodium Chloride (NS Flush) DAILY IVF 11/12/16 09:00 11/28/16 09:22 Lansoprazole (Prevacid Odt) 30 mg DAILY NG 11/12/16 09:00 12/09/16 08:40 Docusate Sodium (Colace Liq) 100 mg Q12HR PO 11/12/16 09:00 12/09/16 08:37 Sodium Chloride (NS Flush) 2 ml BID IV FLUSH 11/12/16 09:00 12/09/16 08:33 Artificial Tears (Tears Naturale Opth Soln) 1 drop TID EACH EYE 11/12/16 09:00 12/09/16 08:33 Ondansetron HCl (Zofran Inj) 4 mg Q6H PRN IV NAUSEA OR VOMITING 11/12/16 08:30 11/15/16 05:45 Albuterol Sulfate (Albuterol Neb) 2.5 mg Q2HR NEB PRN INH SOB/WHEEZING 11/12/16 08:30 11/29/16 21:19 Acetaminophen (Tylenol 650 Mg/ 20 ml Liq) 650 mg Q6H PRN NG FEVER 11/12/16 08:45 12/07/16 19:35 Levetriacetam 100 ml @ 400 mls/hr Q8HR IV 11/12/16 22:00 Future Hold 11/30/16 05:35 Polyethylene Glycol (Miralax) 17 gm BID OG-TUBE 11/13/16 21:00 12/09/16 08:21 Lactulose (Lactulose Liq) 30 ml DAILY PO 11/14/16 09:00 Future Hold 12/02/16 09:54 Hydralazine HCl (Apresoline Inj) 20 mg Q4H PRN IV PUSH SBP>150, DBP>90 11/14/16 02:15 11/14/16 03:07 Metoprolol Tartrate (Lopressor) 25 mg Q12HR PO 11/16/16 09:30 12/09/16 08:40 Fosphenytoin Sodium 100 mgpe/ Sodium Chloride 52 ml @ 208 mls/hr Q6HR IV 11/18/16 13:00 Future Hold 11/30/16 13:10 Furosemide (Lasix Inj) 40 mg DAILY IV PUSH 11/22/16 11:00 12/09/16 08:33 Insulin Aspart (NovoLOG SUPPLEMENTAL SCALE) 1 ACHS SLIDING SCALE SQ 11/24/16 17:00 12/09/16 08:00 Dextrose (D50w (Syr) Inj) 50 ml UNSCH PRN IV HYPOGLYCEMIA-SEE COMMENTS 11/25/16 09:30 11/25/16 09:46 Megestrol Acetate (Megace Liq) 400 mg DAILY PO 11/26/16 09:00 12/09/16 08:37 Levetriacetam (Keppra) 1,000 mg Q8HR PO 11/30/16 22:00 12/09/16 07:03 Phenytoin (Dilantin) 100 mg Q6HR PO 11/30/16 19:45 12/09/16 07:03 Vancomycin HCl 1750 mg/Sodium Chloride 517.5 ml @ 257.5 mls/ hr Q24H IV 12/01/16 18:00 12/08/16 16:46 Mupirocin (Bactroban 2% Cream) 1 applic Q12HR TOPICAL 12/02/16 21:00 12/09/16 08:45 Fluconazole (Diflucan) 100 mg DAILY PO 12/04/16 09:00 12/09/16 08:40 Collagenase (Santyl Oint) 1 applic DAILY TOPICAL 12/04/16 12:00 12/09/16 08:45 Albuterol/ Ipratropium (Duoneb Neb) 1 ampule Q6HR WHILE AWAKE NEB NEB 12/08/16 14:00 12/09/16 08:20 Objective Remarks GENERAL: elderly man in no distress SKIN: Warm and dry. HEAD: Normocephalic. EYES: No scleral icterus. No injection or drainage. NECK: Supple, trachea midline. No JVD or lymphadenopathy. LYMPHATIC: No adenopathy. CARDIOVASCULAR: Regular rate and rhythm without murmurs. RESPIRATORY: Breath sounds equal bilaterally. No accessory muscle use. GASTROINTESTINAL: Abdomen soft, non-tender, nondistended. EXTREMITIES: No edema of extremities NEUROLOGICAL: do not follow commands Assessment/Plan Assessment 1. Subdural and intracranial hemorrhage: sustained after fall. Mental status not at baseline. Neurosurgery service following closely. 2. Right sided cephalic and basilic vein clot: decreased swelling in right arm , no tenderness on exam, no cording of veins. Continue to monitor. Recent intracranial bleed precludes systemic anticoagulation. 3. Anemia: ACD likely exacerbated by acute infection. B12, folate, haptoglobin WNL. Stable during hospitalization. Continue to follow. 4. 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 Awaiting results of TCR gene rearrangement studies from pathology. Discussed with family. Veronica Man MD Dec 09, 2016 11:43
[2016-12-09] MEDS: VANCOMYCIN INJ 1,750 MG in SODIUM CHLORID 0.9% 500 ML INJ 500 ML IV SCH (17:27)
[2016-12-09] MEDS ORDERED: PHARMACY ORDERED LAB ONE (17:45)
[2016-12-09] MEDS: TAMSULOSIN HCL 0.4 MG CAP PO SCH (21:35)
[2016-12-10] VITALS (9 sets, daily range): BP systolic 121–160; BP diastolic 61–74; PULSE 90–106; RESP 18–20; TEMP 97.4–98.7; O2SAT 92–99
[2016-12-10] MEDS: PHENYTOIN SODIUM 100 MG CAP PO SCH ×5 (00:38→23:00)
[2016-12-10] MEDS: levETIRAcetam 500 MG TAB PO SCH ×3 (05:52→22:31)
[2016-12-10] MEDS: CHLORHEXIDINE 0.12% (ORAL KIT) 15 ML CUP MT SCH ×2 (07:34→20:00)
[2016-12-10] MEDS: INSULIN ASPART SUPPLEMENTAL SCALE SQ SCH ×4 (08:00→21:00)
[2016-12-10] MEDS: RESP: ALBUTEROL 2.5 MG/IPRATROPIUM 0.5 MG NEB (SCH) NEB ×3 (08:03→19:17)
[2016-12-10] MEDS: SODIUM CHLORIDE 0.9% FLUSH 10 ML FLUSH IVF SCH (08:07)
[2016-12-10] MEDS: POLYETHYLENE GLYCOL 17 GM PKG OG-TUBE SCH ×2 (08:45→22:31)
[2016-12-10] MEDS: FLUCONAZOLE 100 MG TAB PO SCH (08:46)
[2016-12-10] MEDS: METOPROLOL TARTRATE 25 MG TAB PO SCH ×2 (08:46→22:31)
[2016-12-10] MEDS: FINASTERIDE 5 MG TAB PO SCH (08:46)
[2016-12-10] MEDS: LANSOPRAZOLE SOLUTAB 30 MG TAB NG SCH (08:46)
[2016-12-10] MEDS: MEGESTROL ACETATE SUSP 400 MG/10 ML CUP PO SCH (08:49)
[2016-12-10] MEDS: DOCUSATE SODIUM 100 MG/10 ML UDC PO SCH ×2 (08:50→22:31)
[2016-12-10] MEDS: FUROSEMIDE 40 MG/4 ML VIAL IV PUSH SCH (08:51)
[2016-12-10] MEDS: SODIUM CHLORIDE 0.9% FLUSH 10 ML FLUSH IV FLUSH SCH ×2 (08:51→21:00)
[2016-12-10] MEDS: COLLAGENASE OINT 30 GM TUBE TOPICAL SCH (08:56)
[2016-12-10] MEDS: MUPIROCIN 2% CREAM 15 GM TOPICAL SCH ×2 (08:56→21:00)
[2016-12-10] MEDS: ARTIFICIAL TEARS OPTH SOLN 15 ML BTL EACH EYE SCH ×3 (08:57→17:04)
--- NOTE | 2016-12-10 09:36 | HHI.PR ---
Subjective Remarks Follow up visit SDH, UE DVT, HTN, DM2. Patient seen and examined today. Daughter at the bedside. Patient laying in bed. Drowsy/ lethargic. States he is doing okay. Discuss with patient and daughter did he needs encouragement and increased activity including out of bed to chair. If patient has pain informed the nurse and the nurse could give pain medication but this should not monitor him from increasing his activity as well as getting out of bed to chair. Encouraged daughter to do range of motion exercises while patient is in bed and when she stays with the patient. Appears comfortable. No acute issues Objective Vitals Vital Signs Date Time Temp Pulse Resp B/P (MAP) Pulse Ox O2 Delivery O2 Flow Rate FiO2 12/10/16 08:04 92 Nasal Cannula 2.00 12/10/16 08:00 98.5 102 20 151/69 (96) 97 12/10/16 05:00 97.5 99 18 160/74 (102) 96 12/10/16 00:29 97.5 90 18 121/61 (81) 97 12/09/16 20:41 99.1 95 20 114/56 (75) 98 12/09/16 20:00 97 Nasal Cannula 2.00 12/09/16 19:10 96 Nasal Cannula 3.00 12/09/16 16:00 99.6 97 18 99/54 (69) 96 12/09/16 12:50 99.7 124 18 109/58 (75) 95 I/O 12/09/16 12/09/16 12/09/16 12/10/16 12/10/16 12/10/16 07:00 15:00 23:00 07:00 15:00 23:00 Intake Total 60 ml 240 ml 517.5 ml Output Total 1100 ml 325 ml Balance 60 ml -860 ml 517.5 ml -325 ml Intake Oral 60 ml 240 ml IV Total 517.5 ml Output Urine Total 1100 ml 325 ml # Bowel Movements 1 4 2 Result Diagram: 12/09/1680512/10/16 0708 Imaging Last Impressions Chest X-Ray 12/04/16 0000 Signed Impressions: Service Date/Time: November 11:58 - CONCLUSION: Improving aeration. Lonnie Blanchard MD Upper Extremity Ultrasound 12/02/16 0000 Signed Impressions: Service Date/Time: Saturday, December 03, 2016 00:53 - CONCLUSION: 1. Occlusive DVT in the cephalic and basilic vein on the right. Alex Goode MD Head CT 12/01/16 0000 Signed Impressions: Service Date/Time: Thursday, December 01, 2016 13:14 - CONCLUSION: Evolving intracranial hemorrhagic foci as above, both intra-axial and extra-axial. Jesus Lee MD Modified Barium Swallow 11/30/16 0000 Signed Impressions: Service Date/Time: Wednesday, November 30, 2016 00:00 - CONCLUSION: Please refer to speech pathology report for full details. Lonnie Cook MD Transcranial Doppler Study Complete 11/17/16 0000 Signed Impressions: Service Date/Time: Thursday, November 17, 2016 10:03 - CONCLUSION: 1. Nondiagnostic examination due to poor transcranial windows. Konstantin Dash MD Abdomen X-Ray 11/12/16 0000 Signed Impressions: Service Date/Time: Saturday, November 12, 2016 08:23 - CONCLUSION: 1. Gastric tube in good position. 2. Probable right renal stones. Narayan Coulter MD Cervical Spine CT 11/09/161950 Signed Impressions: Service Date/Time: Wednesday, November 09, 2016 20:14 - CONCLUSION: Negative trauma CT. Cj Isidro MD Objective Remarks GENERAL: This is a thin-appearing, well-developed patient, in no apparent distress. SKIN: Warm and dry. HEENT: Nose without bleeding. Airway patent. NECK: Trachea midline. Supple. CARDIOVASCULAR: Heart rate irregular, rate wnl without murmurs, gallops, or rubs. RESPIRATORY: Coarse breath sounds BUL. No wheezes, rales, or rhonchi. GASTROINTESTINAL: Abdomen soft, non-tender, nondistended. Bowel Sounds normoactive x4. MUSCULOSKELETAL: Extremities without clubbing, cyanosis, bilateral lower extremity +1 edema. NEUROLOGICAL: Drowsy. Moves all extremities weakly. Clear speech. Date of Insertion: Nov 12, 2016 Line: Central Venous Catheter Side: Right Location: Internal, Jugular A/P Problem List: (1) Subdural hematoma ICD Code: I62.00 - Nontraumatic subdural hemorrhage, unspecified Status: Acute (2) Diabetes ICD Code: E11.9 - Type 2 diabetes mellitus without complications (3) Leukocytosis ICD Code: D72.829 - Elevated white blood cell count, unspecified Status: Acute (4) HTN (hypertension) ICD Code: I10 - Essential (primary) hypertension Status: Chronic (5) Dysphagia ICD Code: R13.10 - Dysphagia, unspecified (6) Urinary tract infection ICD Code: N39.0 - Urinary tract infection, site not specified Assessment and Plan 80 y/o with a history of HTN, DM, and BPH presented to the ED after a fall at home, with a LOC for 10-15 mins. Closed head injury Subdural hematoma Bilateral intracranial hemorrhaging - Managed by neurosurgery and no indication for surgery at this time - Neuro checks, seizure precautions - Continue with Keppra and Dilantin by mouth; monitor level - Improving mentation Metabolic encephalopathy-improving - head CT 12/01/16 showed Bilateral hypodense subdural hematomas are seen in the occipital region and along the tentorium cerebelli on the right as well as small right frontal subdural hematoma unchanged. The left frontal parenchymal bleed is decreased in density with a small amount of edema identified. There is atrophy and moderate confluent hypodense white matter disease in the periventricular regions. The right frontal and left insular bleeds are much less conspicuous with a small amount of residual high density in the right frontal region with a small amount of surrounding edema. There is no midline shift or mass effect. Vascular calcifications are noted. No fractures. - CXR with improving aeration - Continue neurochecks Leukocytosis, ? Sepsis Anemia - WBC 15.2 -->13.4 --> 16.4 --> 13.0 - Hematology following. Ordered other testing R/O other bone marrow abnormality. Follow results. - Blood cultures no growth in 5 days. DC Vanco as planned. - Continue to trend WBC. 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 Respiratory insufficiency - Chest x-ray with improvement in aeration - Continue CPT - Schedule and DuoNeb when necessary and maintain oxygen saturation above 92% - Improving aeration with CXR Atrial fibrillation Hypertension - Continue with Lopressor 25mg BID - Oral anticoagulation contraindicated secondary to intracranial bleed - Monitor BP Trend - On exam HR 90s Decubitus ulcer, DTI sacral area - Continue Santyl - Wound care following. Recommends mable thick coverage of santyl ointment to wound bed on sacral area and cover with Slightly moistened Maxorb II ( Calcium alginate) dressing. Cover with ABD pad secured with tape or cover with bordered gauze. 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 Monitor accucheck Occlusive DVT in cephalic vein right upper extremity - Hematology consultation appreciated however oral anticoagulation contraindicated - Avoid IV access RUE Dysphagia r/o - Barium swallow study normal Urinary tract infection - off Azactam 1 g IV every 12H - on Diflucan 100 mg by mouth daily 12/03/16 secondary to been culture positive for Jane - Plan for voiding trial when more awake and active Generalized weakness, prolonged hospitalization - Has not been OOB to chair. - Attempts by PT unsuccessful because he is drowsy in AM. Waking hours at night, improving - Encourage family to do ROM exercises with patient while in bed. Needs to be aggressive with increase activity, OOB-chair, if patient has pain, to be addressed with pain medication -tylenol. Discuss with family members that pain should not deter him to increase his activities or being OOB to chair. - May benefit with sleep program. Encourage activities in the morning so that patient can sleep during the night. Prophylaxis GI - lanosprazole DVT - SCD/pharmacological prophylaxis when okay with neurosurgery Discuss with patient, daughter, Dr. Hoang Discharge Planning Plan for patient to go back to [facility]. Pending Medicaid application. CM following. Difficult SNF placement. Veronica Coley Dec 10, 2016 09:36
[2016-12-10] MEDS: TOLTERODINE TARTRATE 2 MG CAP LA PO SCH (09:49)
[2016-12-10] MEDS: TAMSULOSIN HCL 0.4 MG CAP PO SCH (22:31)
[2016-12-11] VITALS (8 sets, daily range): BP systolic 131–171; BP diastolic 63–80; PULSE 97–113; RESP 14–20; TEMP 97.4–98.7; O2SAT 95–99
[2016-12-11] MEDS: PHENYTOIN SODIUM 100 MG CAP PO SCH ×3 (06:36→17:03)
[2016-12-11] MEDS: levETIRAcetam 500 MG TAB PO SCH ×3 (06:36→21:17)
[2016-12-11] MEDS: RESP: ALBUTEROL 2.5 MG/IPRATROPIUM 0.5 MG NEB (SCH) NEB ×3 (07:52→19:45)
[2016-12-11] MEDS: CHLORHEXIDINE 0.12% (ORAL KIT) 15 ML CUP MT SCH ×2 (08:00→20:00)
[2016-12-11] MEDS: INSULIN ASPART SUPPLEMENTAL SCALE SQ SCH ×4 (08:00→21:18)
[2016-12-11] MEDS: POLYETHYLENE GLYCOL 17 GM PKG OG-TUBE SCH ×2 (09:00→21:16)
[2016-12-11] MEDS: SODIUM CHLORIDE 0.9% FLUSH 10 ML FLUSH IVF SCH (09:00)
[2016-12-11] MEDS: ARTIFICIAL TEARS OPTH SOLN 15 ML BTL EACH EYE SCH ×3 (09:00→17:03)
[2016-12-11] MEDS: DOCUSATE SODIUM 100 MG/10 ML UDC PO SCH ×2 (09:00→21:17)
[2016-12-11] MEDS: FUROSEMIDE 40 MG/4 ML VIAL IV PUSH SCH (09:00)
[2016-12-11] MEDS: SODIUM CHLORIDE 0.9% FLUSH 10 ML FLUSH IV FLUSH SCH ×2 (09:00→21:19)
[2016-12-11] MEDS: TOLTERODINE TARTRATE 2 MG CAP LA PO SCH (10:01)
[2016-12-11] MEDS: FINASTERIDE 5 MG TAB PO SCH (10:01)
[2016-12-11] MEDS: FLUCONAZOLE 100 MG TAB PO SCH (10:01)
[2016-12-11] MEDS: LANSOPRAZOLE SOLUTAB 30 MG TAB NG SCH (10:01)
[2016-12-11] MEDS: METOPROLOL TARTRATE 25 MG TAB PO SCH ×2 (10:01→21:17)
[2016-12-11] MEDS: COLLAGENASE OINT 30 GM TUBE TOPICAL SCH (10:04)
[2016-12-11] MEDS: MEGESTROL ACETATE SUSP 400 MG/10 ML CUP PO SCH (10:05)
[2016-12-11] MEDS: MUPIROCIN 2% CREAM 15 GM TOPICAL SCH ×2 (10:05→21:18)
--- NOTE | 2016-12-11 10:13 | HHI.PR ---
Subjective Remarks Follow up visit SDH, UE DVT, HTN, DM2. Patient seen and examined today. Son at the bedside. Patient laying in bed. Drowsy/ lethargic. Coughs occasionally. States he is tired. According to son, patient is awake at night and tired in the morning. States his usual routine at home is that he stays up all nigh until 2-4 in am and wakes up at 4 in the afternoon. Objective Vitals Vital Signs Date Time Temp Pulse Resp B/P (MAP) Pulse Ox O2 Delivery O2 Flow Rate FiO2 12/11/16 08:00 98.2 110 14 136/63 (87) 96 12/11/16 07:53 98 Nasal Cannula 2.00 12/11/16 04:00 98.3 104 20 153/74 (100) 95 12/11/16 00:00 97.6 101 20 157/74 (101) 99 12/10/16 22:43 106 153/72 (99) 12/10/16 22:30 Nasal Cannula 2.00 12/10/16 20:01 98.6 90 18 148/68 (94) 99 12/10/16 19:17 97 Nasal Cannula 2.00 12/10/16 16:00 97.4 102 20 149/70 (96) 97 12/10/16 13:07 98.7 98 20 136/61 (86) 99 I/O 12/10/16 12/10/16 12/10/16 12/11/16 12/11/16 12/11/16 07:00 15:00 23:00 07:00 15:00 23:00 Output Total 325 ml 1400 ml 250 ml 350 ml Balance -325 ml -1400 ml -250 ml -350 ml Output Urine Total 325 ml 1400 ml 250 ml 350 ml # Bowel Movements 2 1 Result Diagram: 12/09/16 0806 12/10/16 0708 Imaging Last Impressions Chest X-Ray 12/04/16 0000 Signed Impressions: Service Date/Time: November 11:58 - CONCLUSION: Improving aeration. Lonnie Blanchard MD Upper Extremity Ultrasound 12/02/16 0000 Signed Impressions: Service Date/Time: Saturday, December 03, 2016 00:53 - CONCLUSION: 1. Occlusive DVT in the cephalic and basilic vein on the right. Alex Goode MD Head CT 12/01/16 0000 Signed Impressions: Service Date/Time: Thursday, December 01, 2016 13:14 - CONCLUSION: Evolving intracranial hemorrhagic foci as above, both intra-axial and extra-axial. Jesus Lee MD Modified Barium Swallow 11/30/16 0000 Signed Impressions: Service Date/Time: Wednesday, November 30, 2016 00:00 - CONCLUSION: Please refer to speech pathology report for full details. Lonnie Cook MD Transcranial Doppler Study Complete 11/17/16 0000 Signed Impressions: Service Date/Time: Thursday, November 17, 2016 10:03 - CONCLUSION: 1. Nondiagnostic examination due to poor transcranial windows. Konstantin Dash MD Abdomen X-Ray 11/12/16 0000 Signed Impressions: Service Date/Time: Saturday, November 12, 2016 08:23 - CONCLUSION: 1. Gastric tube in good position. 2. Probable right renal stones. Narayan Coulter MD Cervical Spine CT 11/09/161950 Signed Impressions: Service Date/Time: Wednesday, November 09, 2016 20:14 - CONCLUSION: Negative trauma CT. Cj Isidro MD Objective Remarks GENERAL: This is a thin-appearing, well-developed patient, in no apparent distress. SKIN: Warm and dry. HEENT: Nose without bleeding. Airway patent. NECK: Trachea midline. Supple. CARDIOVASCULAR: Heart rate irregular, rate wnl without murmurs, gallops, or rubs. RESPIRATORY: Coarse breath sounds BUL. No wheezes, rales, or rhonchi. GASTROINTESTINAL: Abdomen soft, non-tender, nondistended. Bowel Sounds normoactive x4. MUSCULOSKELETAL: Extremities without clubbing, cyanosis, bilateral lower extremity +1 edema. NEUROLOGICAL: Drowsy. Moves all extremities weakly. Date of Insertion: Nov 12, 2016 Line: Central Venous Catheter Side: Right Location: Internal, Jugular A/P Problem List: (1) Subdural hematoma ICD Code: I62.00 - Nontraumatic subdural hemorrhage, unspecified Status: Acute (2) Diabetes ICD Code: E11.9 - Type 2 diabetes mellitus without complications (3) Leukocytosis ICD Code: D72.829 - Elevated white blood cell count, unspecified Status: Acute (4) HTN (hypertension) ICD Code: I10 - Essential (primary) hypertension Status: Chronic (5) Dysphagia ICD Code: R13.10 - Dysphagia, unspecified (6) Urinary tract infection ICD Code: N39.0 - Urinary tract infection, site not specified Assessment and Plan 80 y/o with a history of HTN, DM, and BPH presented to the ED after a fall at home, with a LOC for 10-15 mins. Closed head injury Subdural hematoma Bilateral intracranial hemorrhaging - Managed by neurosurgery and no indication for surgery at this time - Neuro checks, seizure precautions - Continue with Keppra and Dilantin by mouth; monitor level - Lethargic in am. Metabolic encephalopathy-improving - head CT 12/01/16 showed Bilateral hypodense subdural hematomas are seen in the occipital region and along the tentorium cerebelli on the right as well as small right frontal subdural hematoma unchanged. The left frontal parenchymal bleed is decreased in density with a small amount of edema identified. There is atrophy and moderate confluent hypodense white matter disease in the periventricular regions. The right frontal and left insular bleeds are much less conspicuous with a small amount of residual high density in the right frontal region with a small amount of surrounding edema. There is no midline shift or mass effect. Vascular calcifications are noted. No fractures. - CXR with improving aeration - Continue neurochecks Leukocytosis, ? Sepsis Anemia - WBC 15.2 -->13.4 --> 16.4 --> 13.0 - Hematology following. Ordered other testing R/O other bone marrow abnormality. Follow results. - Blood cultures no growth in 5 days. DC Vanco as planned. - Continue to trend WBC. 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 Respiratory insufficiency - Chest x-ray with improvement in aeration - Continue CPT - Schedule and DuoNeb when necessary and maintain oxygen saturation above 92% - Improving aeration with CXR - Wean off O2 nc Atrial fibrillation Hypertension - Continue with Lopressor 25mg BID - Oral anticoagulation contraindicated secondary to intracranial bleed - Monitor BP Trend - On exam HR 80s- 90s Decubitus ulcer, DTI sacral area - Continue Santyl - Wound care following. Recommends mable thick coverage of santyl ointment to wound bed on sacral area and cover with Slightly moistened Maxorb II ( Calcium alginate) dressing. Cover with ABD pad secured with tape or cover with bordered gauze. 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 Monitor accucheck Occlusive DVT in cephalic vein right upper extremity - Hematology consultation appreciated however oral anticoagulation contraindicated - Avoid IV access RUE Dysphagia r/o - Barium swallow study normal Urinary tract infection - off Azactam 1 g IV every 12H - on Diflucan 100 mg by mouth daily 12/03/16 secondary to been culture positive for Jane - Plan for voiding trial when more awake and active Generalized weakness, prolonged hospitalization - Has not been OOB to chair. - Attempts by PT unsuccessful because he is drowsy in AM. Waking hours at night, improving - Encourage family to do ROM exercises with patient while in bed. Needs to be aggressive with increase activity, OOB-chair, if patient has pain, to be addressed with pain medication -tylenol. Discuss with family members that pain should not deter him to increase his activities or being OOB to chair. - May benefit with sleep program. Encourage activities in the morning so that patient can sleep during the night. Will ask neurosurgery if ok to give sleep aid at night. Prophylaxis GI - lanosprazole DVT - SCD/pharmacological prophylaxis when okay with neurosurgery Discuss with patient, Son, Dr. Hoang Discharge Planning Plan for patient to go back to [facility]. Pending Medicaid application. CM following. Difficult SNF placement. May transfer to [facility] when bed is available. Veronica Coley Dec 11, 2016 10:13
[2016-12-11 15:37] LABS: BLOOD GAS BASE EXCESS 5.3 mmol/L (-2-2); BLOOD GAS HCO3 29 mmol/L (22-26); BLOOD GAS METHEMOGLOBIN 0.6 % (0-2); BLOOD GAS O2 HGB SATURATION 92 % (90-100); BLOOD GAS OXYGEN CONTENT 12.6 Vol % (12.0-20.0); BLOOD GAS PCO2 35 mmHg (38-42); BLOOD GAS PO2 68 mmHg (61-120); BLOOD GAS TOTAL HGB 9.7 G/DL (12.0-16.0); TEMP CORR TO 98.6
[2016-12-11 15:38] LABS: CRITICAL VALUE YES
[2016-12-11 15:39] LABS: DRAW SITE RT RADIAL; FIO2 21 %; NUMBER OF ARTERIAL PUNCTURES 1; OXYGEN DEVICE RA; STAT NO; ULNAR PULSE PRESENT
[2016-12-11] MEDS ORDERED: PHARMACY ORDERED LAB ONE (17:45)
[2016-12-11] MEDS: TAMSULOSIN HCL 0.4 MG CAP PO SCH (21:17)
[2016-12-12] VITALS: BP 145/67; PULSE 97; RESP 19; RESP 20; TEMP 97.5; O2SAT 95
[2016-12-12] MEDS: PHENYTOIN SODIUM 100 MG CAP PO SCH ×5 (00:12→23:56)
[2016-12-12 04:00] VITALS: BP 148/72; PULSE 106; RESP 20; TEMP 98.2; O2SAT 93
[2016-12-12] MEDS: levETIRAcetam 500 MG TAB PO SCH ×3 (06:27→23:56)
[2016-12-12] MEDS: CHLORHEXIDINE 0.12% (ORAL KIT) 15 ML CUP MT SCH ×2 (07:57→20:00)
[2016-12-12] MEDS: SODIUM CHLORIDE 0.9% FLUSH 10 ML FLUSH IVF SCH (07:58)
[2016-12-12] MEDS: DOCUSATE SODIUM 100 MG/10 ML UDC PO SCH ×2 (07:58→20:41)
[2016-12-12] MEDS: POLYETHYLENE GLYCOL 17 GM PKG OG-TUBE SCH ×2 (07:58→20:41)
[2016-12-12 08:00] VITALS: BP 163/56; PULSE 106; RESP 20; TEMP 98.5; O2SAT 96
[2016-12-12] MEDS: MUPIROCIN 2% CREAM 15 GM TOPICAL SCH ×2 (08:00→20:42)
[2016-12-12] MEDS: INSULIN ASPART SUPPLEMENTAL SCALE SQ SCH ×4 (08:00→20:42)
[2016-12-12] MEDS: ARTIFICIAL TEARS OPTH SOLN 15 ML BTL EACH EYE SCH ×3 (08:01→17:29)
[2016-12-12] MEDS: COLLAGENASE OINT 30 GM TUBE TOPICAL SCH (08:01)
[2016-12-12] MEDS: FLUCONAZOLE 100 MG TAB PO SCH (08:02)
[2016-12-12] MEDS: SODIUM CHLORIDE 0.9% FLUSH 10 ML FLUSH IV FLUSH SCH ×2 (08:02→20:41)
[2016-12-12] MEDS: TOLTERODINE TARTRATE 2 MG CAP LA PO SCH (08:02)
[2016-12-12] MEDS: LANSOPRAZOLE SOLUTAB 30 MG TAB NG SCH (08:02)
[2016-12-12] MEDS: FUROSEMIDE 40 MG/4 ML VIAL IV PUSH SCH (08:03)
[2016-12-12] MEDS: MEGESTROL ACETATE SUSP 400 MG/10 ML CUP PO SCH (08:04)
[2016-12-12] MEDS: METOPROLOL TARTRATE 25 MG TAB PO SCH (08:04)
[2016-12-12] MEDS: FINASTERIDE 5 MG TAB PO SCH (08:05)
[2016-12-12 08:17] LABS: BASOPHIL % 0.4 % (0.0-2.0); EOSINOPHIL # 0.2 TH/MM3 (0-0.4); EOSINOPHIL % 1.6 % (0.0-4.0); HEMATOCRIT 29.7 % (39.0-51.0); LYMPH % 63.6 % (9.0-44.0); LYMPHOCYTE # 7.6 TH/MM3 (1.0-4.8); MEAN CELL VOLUME 87.8 FL (80.0-100.0); MEAN CORPUSCULAR HEMOGLOBIN 29.4 PG (27.0-34.0); MEAN CORPUSCULAR HGB CONC 33.5 % (32.0-36.0); MONO % 9.4 % (0.0-8.0); PLATELET COUNT 417 TH/MM3 (150-450); RED BLOOD COUNT 3.38 MIL/MM3 (4.50-5.90); RED CELL DISTRIBUTION WIDTH 18.4 % (11.6-17.2); WHITE BLOOD COUNT 11.9 TH/MM3 (4.0-11.0)
[2016-12-12 08:25] LABS: HEMO FLAGS AUTO DIFF
[2016-12-12 08:31] LABS: BICARBONATE 29.2 MEQ/L (21.0-32.0)
[2016-12-12 08:34] LABS: POTASSIUM 2.9 MEQ/L (3.5-5.1)
[2016-12-12 09:41] LABS: BANDS 1 % (0-6); BASOPHILS 3 % (0-2); METAMYELOCYTES 2 % (0-1); PLATELET ESTIMATE SMEAR NORMAL (NORMAL); PLATELET MORPHOLOGY NORMAL (NORMAL); POLYS (SEG NEUTROPHILS) 39 % (16-70); SCAN/DIFF FINAL DIFF MANUAL; WBC DIFF SAMPLE 100
[2016-12-12] MEDS: RESP: ALBUTEROL 2.5 MG/IPRATROPIUM 0.5 MG NEB (SCH) NEB (10:13)
--- NOTE | 2016-12-12 10:57 | HHI.PR ---
Subjective Remarks Follow up visit SDH, UE DVT, HTN, DM2. Patient seen and examined today. Patient is laying in bed. Continues to be drowsy and lethargic. Grimaces to pain. Occasional cough noted. As per nursing, no acute issues overnight. Patient was out of bed yesterday for about 2 hours with physical therapy. Appears comfortable. Objective Vitals Vital Signs Date Time Temp Pulse Resp B/P (MAP) Pulse Ox O2 Delivery O2 Flow Rate FiO2 12/12/16 08:00 98.5 106 20 163/56 (91) 96 12/12/16 07:00 96 Room Air 12/12/16 04:00 98.2 106 20 148/72 (97) 93 12/12/16 00:00 97.5 97 19 95 12/12/16 00:00 97.5 97 20 145/67 (93) 95 12/11/16 22:15 Room Air 12/11/16 20:00 98.4 104 20 171/80 (110) 95 12/11/16 19:46 95 21 12/11/16 16:00 98.7 97 14 164/75 (104) 95 12/11/16 12:00 97.4 113 14 131/73 (92) 97 I/O 12/11/16 12/11/16 12/11/16 12/12/16 12/12/16 12/12/16 07:00 15:00 23:00 07:00 15:00 23:00 Intake Total 290 ml Output Total 350 ml 600 ml Balance -350 ml 290 ml -600 ml Intake Oral 290 ml Output Urine Total 350 ml 600 ml # Bowel Movements 1 Result Diagram: 12/12/16 0713 12/12/16 0713 Imaging Last Impressions Chest X-Ray 12/04/16 0000 Signed Impressions: Service Date/Time: November 11:58 - CONCLUSION: Improving aeration. Lonnie Blanchard MD Upper Extremity Ultrasound 12/02/16 0000 Signed Impressions: Service Date/Time: Saturday, December 03, 2016 00:53 - CONCLUSION: 1. Occlusive DVT in the cephalic and basilic vein on the right. Alex Goode MD Head CT 12/01/16 0000 Signed Impressions: Service Date/Time: Thursday, December 01, 2016 13:14 - CONCLUSION: Evolving intracranial hemorrhagic foci as above, both intra-axial and extra-axial. Jesus Lee MD Modified Barium Swallow 11/30/16 0000 Signed Impressions: Service Date/Time: Wednesday, November 30, 2016 00:00 - CONCLUSION: Please refer to speech pathology report for full details. oLnnie Cook MD Transcranial Doppler Study Complete 11/17/16 0000 Signed Impressions: Service Date/Time: Thursday, November 17, 2016 10:03 - CONCLUSION: 1. Nondiagnostic examination due to poor transcranial windows. Konstantin Dash MD Abdomen X-Ray 11/12/16 0000 Signed Impressions: Service Date/Time: Saturday, November 12, 2016 08:23 - CONCLUSION: 1. Gastric tube in good position. 2. Probable right renal stones. Narayan Coulter MD Cervical Spine CT 11/09/161950 Signed Impressions: Service Date/Time: Wednesday, November 09, 2016 20:14 - CONCLUSION: Negative trauma CT. Cj Isidro MD Objective Remarks GENERAL: This is a thin-appearing, well-developed patient, in no apparent distress. SKIN: Warm and dry. HEENT: Nose without bleeding. Airway patent. NECK: Trachea midline. Supple. CARDIOVASCULAR: Heart rate irregular, rate wnl without murmurs, gallops, or rubs. RESPIRATORY: Coarse breath sounds BUL. No wheezes, rales, or rhonchi. GASTROINTESTINAL: Abdomen soft, non-tender, nondistended. Bowel Sounds normoactive x4. MUSCULOSKELETAL: Extremities without clubbing, cyanosis, bilateral lower extremity trace edema. NEUROLOGICAL: Drowsy. Moves all extremities weakly. Date of Insertion: Nov 12, 2016 Line: Central Venous Catheter Side: Right Location: Internal, Jugular A/P Problem List: (1) Subdural hematoma ICD Code: I62.00 - Nontraumatic subdural hemorrhage, unspecified Status: Acute (2) Diabetes ICD Code: E11.9 - Type 2 diabetes mellitus without complications (3) Leukocytosis ICD Code: D72.829 - Elevated white blood cell count, unspecified Status: Acute (4) HTN (hypertension) ICD Code: I10 - Essential (primary) hypertension Status: Chronic (5) Dysphagia ICD Code: R13.10 - Dysphagia, unspecified (6) Urinary tract infection ICD Code: N39.0 - Urinary tract infection, site not specified Assessment and Plan 80 y/o with a history of HTN, DM, and BPH presented to the ED after a fall at home, with a LOC for 10-15 mins. Closed head injury Subdural hematoma Bilateral intracranial hemorrhaging - Managed by neurosurgery and no indication for surgery at this time - Neuro checks, seizure precautions - Continue with Keppra and Dilantin by mouth; monitor level - Lethargic in am. Metabolic encephalopathy-improving - head CT 12/01/16 showed Bilateral hypodense subdural hematomas are seen in the occipital region and along the tentorium cerebelli on the right as well as small right frontal subdural hematoma unchanged. The left frontal parenchymal bleed is decreased in density with a small amount of edema identified. There is atrophy and moderate confluent hypodense white matter disease in the periventricular regions. The right frontal and left insular bleeds are much less conspicuous with a small amount of residual high density in the right frontal region with a small amount of surrounding edema. There is no midline shift or mass effect. Vascular calcifications are noted. No fractures. - CXR with improving aeration - Continue neurochecks - Ammonia level within normal. ABG without any changes. Leukocytosis, ? Sepsis Anemia - WBC 15.2 -->13.4 --> 16.4 --> 13.0 - Hematology following. Ordered other testing R/O other bone marrow abnormality. Follow results. - Blood cultures no growth in 5 days. DC Vanco as planned. - Continue to trend WBC. 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 Respiratory insufficiency - Chest x-ray with improvement in aeration - Continue CPT - Schedule and DuoNeb when necessary and maintain oxygen saturation above 92% - Improving aeration with CXR - Wean off O2 nc Atrial fibrillation Hypertension - Continue with Lopressor 25mg BID, increase to TID for better rate control and BP control - Oral anticoagulation contraindicated secondary to intracranial bleed - Monitor BP Trend, HR Decubitus ulcer, DTI sacral area - Continue Santyl - Wound care following. Recommends mable thick coverage of santyl ointment to wound bed on sacral area and cover with Slightly moistened Maxorb II ( Calcium alginate) dressing. Cover with ABD pad secured with tape or cover with bordered gauze. 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 Monitor accucheck Occlusive DVT in cephalic vein right upper extremity - Hematology consultation appreciated however oral anticoagulation contraindicated - Avoid IV access RUE Dysphagia r/o - Barium swallow study normal - Reassess by speech for swallowing evaluation. Nursing reports patient is coughing with meals. Urinary tract infection - off Azactam 1 g IV every 12H - on Diflucan 100 mg by mouth daily 12/03/16 secondary to been culture positive for Ajne - Plan for voiding trial when more awake and active Generalized weakness, prolonged hospitalization - Has not been OOB to chair. - Attempts by PT unsuccessful because he is drowsy in AM. Waking hours at night, improving - Encourage family to do ROM exercises with patient while in bed. Needs to be aggressive with increase activity, OOB-chair, if patient has pain, to be addressed with pain medication -tylenol. Discuss with family members that pain should not deter him to increase his activities or being OOB to chair. - May benefit with sleep program. Encourage activities in the morning so that patient can sleep during the night. Will ask neurosurgery if ok to give sleep aid at night. Prophylaxis GI - lanosprazole DVT - SCD/pharmacological prophylaxis when okay with neurosurgery Discuss with patient, nursing, Dr. Haong Discharge Planning Plan for patient to go back to [facility]. Pending Medicaid application. CM following. Difficult SNF placement. May transfer to [facility] when bed is available. Veronica Coley Dec 12, 2016 10:57
[2016-12-12] MEDS ORDERED: POTASSIUM CHLORIDE 25 MEQ EFFERVESCENT TAB PO ONE ×2 (11:00→11:30)
[2016-12-12] MEDS: POTASSIUM CHLOR 20 MEQ PREMIX 100 ML IV SCH ×2 (11:50→14:20)
[2016-12-12 12:00] VITALS: BP 146/71; PULSE 99; RESP 20; TEMP 98; O2SAT 95
[2016-12-12 16:00] VITALS: BP 159/77; PULSE 103; RESP 18; TEMP 99.3; O2SAT 96
[2016-12-12] MEDS ORDERED: METOPROLOL TARTRATE 25 MG TAB PO SCH (18:00)
--- NOTE | 2016-12-12 18:21 | PD.ONC.PN ---
Subjective Subjective Remarks Resting in bed, does not follow commands Objective Data Date Time Temp Pulse Resp B/P (MAP) Pulse Ox O2 Delivery O2 Flow Rate FiO2 12/12/16 16:00 99.3 103 18 159/77 (104) 96 12/12/16 12:00 98.0 99 20 146/71 (96) 95 12/12/16 08:00 98.5 106 20 163/56 (91) 96 12/12/16 07:00 96 Room Air 12/12/16 04:00 98.2 106 20 148/72 (97) 93 12/12/16 00:00 97.5 97 19 95 12/12/16 00:00 97.5 97 20 145/67 (93) 95 12/11/16 22:15 Room Air 12/11/16 20:00 98.4 104 20 171/80 (110) 95 12/11/16 19:46 95 21 12/12/16 12/12/16 12/12/16 07:00 15:00 23:00 Output Total 600 ml Balance -600 ml Result Diagram: 12/12/1613 12/12/16 0713 Laboratory Results Laboratory Tests Test 12/12/16 07:13 White Blood Count 11.9 TH/MM3 Red Blood Count 3.38 MIL/MM3 Hemoglobin 10.0 GM/DL Hematocrit 29.7 % Mean Corpuscular Volume 87.8 FL Mean Corpuscular Hemoglobin 29.4 PG Mean Corpuscular Hemoglobin Concent 33.5 % Red Cell Distribution Width 18.4 % Platelet Count 417 TH/MM3 Mean Platelet Volume 7.3 FL Neutrophils (%) (Auto) 25.0 % Lymphocytes (%) (Auto) 63.6 % Monocytes (%) (Auto) 9.4 % Eosinophils (%) (Auto) 1.6 % Basophils (%) (Auto) 0.4 % Neutrophils # (Auto) 3.0 TH/MM3 Lymphocytes # (Auto) 7.6 TH/MM3 Monocytes # (Auto) 1.1 TH/MM3 Eosinophils # (Auto) 0.2 TH/MM3 Basophils # (Auto) 0.0 TH/MM3 CBC Comment AUTO DIFF Differential Total Cells Counted 100 Neutrophils % (Manual) 39 % Band Neutrophils % 1 % Lymphocytes % 46 % Monocytes % 9 % Basophils % 3 % Neutrophils # (Manual) 5.0 TH/MM3 Metamyelocytes 2 % Differential Comment FINAL DIFF MANUAL Platelet Estimate NORMAL Platelet Morphology Comment NORMAL Red Cell Morphology Comment NORMAL Blood Urea Nitrogen 17 MG/DL Creatinine 0.64 MG/DL Random Glucose 158 MG/DL Calcium Level 9.5 MG/DL Sodium Level 135 MEQ/L Potassium Level 2.9 MEQ/L Chloride Level 99 MEQ/L Carbon Dioxide Level 29.2 MEQ/L Anion Gap 7 MEQ/L Estimat Glomerular Filtration Rate 120 ML/MIN Administered Medications Medications (Trade) Dose Ordered Sig/Gregg Route PRN Reason Start Time Stop Time Status Last Admin Dose Admin Finasteride (Proscar) 5 mg DAILY PO 11/10/16 09:00 12/12/16 08:05 Tamsulosin HCl (Flomax) 0.4 mg HS PO 11/10/16 21:00 12/11/16 21:17 Tolterodine Tartrate (Detrol La) 2 mg DAILY PO 11/10/16 09:00 12/12/16 08:02 Glucagon (Glucagon Inj) 1 mg UNSCH PRN OTHER HYPOGLYCEMIA-SEE COMMENTS 11/09/16 23:45 11/24/16 03:48 Lorazepam (Ativan Inj) 1 mg Q5M PRN IV SEIZURES 11/12/16 00:45 11/12/16 01:45 Chlorhexidine Gluconate (Peridex 0.12% Liq) 15 ml BID@08,20 MT 11/12/16 08:00 12/09/16 21:57 Sodium Chloride (NS Flush) DAILY IVF 11/12/16 09:00 11/28/16 09:22 Lansoprazole (Prevacid Odt) 30 mg DAILY NG 11/12/16 09:00 12/12/16 08:02 Docusate Sodium (Colace Liq) 100 mg Q12HR PO 11/12/16 09:00 12/11/16 21:17 Sodium Chloride (NS Flush) 2 ml BID IV FLUSH 11/12/16 09:00 12/12/16 08:02 Artificial Tears (Tears Naturale Opth Soln) 1 drop TID EACH EYE 11/12/16 09:00 12/12/16 17:29 Ondansetron HCl (Zofran Inj) 4 mg Q6H PRN IV NAUSEA OR VOMITING 11/12/16 08:30 11/15/16 05:45 Albuterol Sulfate (Albuterol Neb) 2.5 mg Q2HR NEB PRN INH SOB/WHEEZING 11/12/16 08:30 11/29/16 21:19 Acetaminophen (Tylenol 650 Mg/ 20 ml Liq) 650 mg Q6H PRN NG FEVER 11/12/16 08:45 12/07/16 19:35 Levetriacetam 100 ml @ 400 mls/hr Q8HR IV 11/12/16 22:00 Future Hold 11/30/16 05:35 Polyethylene Glycol (Miralax) 17 gm BID OG-TUBE 11/13/16 21:00 12/11/16 21:16 Lactulose (Lactulose Liq) 30 ml DAILY PO 11/14/16 09:00 Future Hold 12/02/16 09:54 Hydralazine HCl (Apresoline Inj) 20 mg Q4H PRN IV PUSH SBP>150, DBP>90 11/14/16 02:15 11/14/16 03:07 Fosphenytoin Sodium 100 mgpe/ Sodium Chloride 52 ml @ 208 mls/hr Q6HR IV 11/18/16 13:00 Future Hold 11/30/16 13:10 Furosemide (Lasix Inj) 40 mg DAILY IV PUSH 11/22/16 11:00 12/12/16 08:03 Insulin Aspart (NovoLOG SUPPLEMENTAL SCALE) 1 ACHS SLIDING SCALE SQ 11/24/16 17:00 12/12/16 12:00 Dextrose (D50w (Syr) Inj) 50 ml UNSCH PRN IV HYPOGLYCEMIA-SEE COMMENTS 11/25/16 09:30 11/25/16 09:46 Megestrol Acetate (Megace Liq) 400 mg DAILY PO 11/26/16 09:00 12/12/16 08:04 Levetriacetam (Keppra) 1,000 mg Q8HR PO 11/30/16 22:00 12/12/16 11:55 Phenytoin (Dilantin) 100 mg Q6HR PO 11/30/16 19:45 12/12/16 17:29 Mupirocin (Bactroban 2% Cream) 1 applic Q12HR TOPICAL 12/02/16 21:00 12/12/16 08:00 Fluconazole (Diflucan) 100 mg DAILY PO 12/04/16 09:00 12/12/16 08:02 Collagenase (Santyl Oint) 1 applic DAILY TOPICAL 12/04/16 12:00 12/12/16 08:01 Objective Remarks GENERAL: elderly man in no distress SKIN: Warm and dry. HEAD: Normocephalic. EYES: No scleral icterus. No injection or drainage. NECK: Supple, trachea midline. No JVD or lymphadenopathy. LYMPHATIC: No adenopathy. CARDIOVASCULAR: Regular rate and rhythm without murmurs. RESPIRATORY: Breath sounds equal bilaterally. No accessory muscle use. EXTREMITIES: No cyanosis, or edema, SCDs in place MUSCULOSKELETAL: Adequate muscle tone. NEUROLOGICAL: does not respond to questions or follow commands Assessment/Plan Assessment 1. Subdural and intracranial hemorrhage: sustained after fall. Mental status not at baseline. Neurosurgery service following closely. 2. Right sided cephalic and basilic vein clot: decreased swelling in right arm , no tenderness on exam, no cording of veins. Continue to monitor. Recent intracranial bleed precludes systemic anticoagulation. Would avoid IV line placement in right arm 3. Anemia: ACD likely exacerbated by acute infection. B12, folate, haptoglobin WNL. Stable during hospitalization. Continue to follow. 4. 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 Awaiting results of TCR gene rearrangement studies from pathology. Veronica Man MD Dec 12, 2016 18:21
[2016-12-12 20:00] VITALS: BP 149/73; PULSE 103; RESP 18; TEMP 99.2; O2SAT 96
[2016-12-12] MEDS: ACETAMINOPHEN SUSP 160 MG/5 ML UDC PO PRN (20:39)
[2016-12-12] MEDS: TAMSULOSIN HCL 0.4 MG CAP PO SCH (20:41)
--- NOTE | 2016-12-12 23:13 | HHI.NSPN ---
History Chief Complaint: Unable to obtain due to patient's clinical condition. Interval History Patient reported to be sleeping a little better at night. Still lethargic much of the day. According to family he is saying a few words and responds to questions, remains confused, following a few commands occasionally. Exam Results Vital Signs Date Time Temp Pulse Resp B/P (MAP) Pulse Ox O2 Delivery O2 Flow Rate FiO2 12/12/16 22:06 18 12/12/16 20:00 99.2 103 149/73 (98) 96 12/12/16 07:00 Room Air 12/11/16 19:46 21 12/11/16 07:53 2.00 Intake and Output 12/12/16 12/12/16 12/13/16 08:00 16:00 00:00 Output Total 600 ml Balance -600 ml Physical Examination GENERAL: Patient sitting up in bed, no apparent distress SKIN: Warm, dry & intact. Protective dressing in place over sacrum HEENT: Normocephalic, atraumatic. NECK: No JVD, trachea midline. CARDIOVASCULAR: Regular without murmur RESPIRATORY: Clear, regular, nonlabored GASTROINTESTINAL: Abdomen soft, nontender, positive bowel sounds. MUSCULOSKELETAL: No evident deformity or clubbing. NEUROLOGICAL: Awake and relatively alert Readily focuses to the left greater than right with conjugate gaze and response to verbal stimulation. Seems to attempt to verbalize, unintelligible. Not following commands but occasional purposeful movements with the left greater than right upper extremity. Lab, Micro, Other Results Laboratory Tests Test 12/12/16 07:13 White Blood Count 11.9 TH/MM3 Red Blood Count 3.38 MIL/MM3 Hemoglobin 10.0 GM/DL Hematocrit 29.7 % Mean Corpuscular Volume 87.8 FL Mean Corpuscular Hemoglobin 29.4 PG Mean Corpuscular Hemoglobin Concent 33.5 % Red Cell Distribution Width 18.4 % Platelet Count 417 TH/MM3 Mean Platelet Volume 7.3 FL Neutrophils (%) (Auto) 25.0 % Lymphocytes (%) (Auto) 63.6 % Monocytes (%) (Auto) 9.4 % Eosinophils (%) (Auto) 1.6 % Basophils (%) (Auto) 0.4 % Neutrophils # (Auto) 3.0 TH/MM3 Lymphocytes # (Auto) 7.6 TH/MM3 Monocytes # (Auto) 1.1 TH/MM3 Eosinophils # (Auto) 0.2 TH/MM3 Basophils # (Auto) 0.0 TH/MM3 CBC Comment AUTO DIFF Differential Total Cells Counted 100 Neutrophils % (Manual) 39 % Band Neutrophils % 1 % Lymphocytes % 46 % Monocytes % 9 % Basophils % 3 % Neutrophils # (Manual) 5.0 TH/MM3 Metamyelocytes 2 % Differential Comment FINAL DIFF MANUAL Platelet Estimate NORMAL Platelet Morphology Comment NORMAL Red Cell Morphology Comment NORMAL Blood Urea Nitrogen 17 MG/DL Creatinine 0.64 MG/DL Random Glucose 158 MG/DL Calcium Level 9.5 MG/DL Sodium Level 135 MEQ/L Potassium Level 2.9 MEQ/L Chloride Level 99 MEQ/L Carbon Dioxide Level 29.2 MEQ/L Anion Gap 7 MEQ/L Estimat Glomerular Filtration Rate 120 ML/MIN Medical Decision Making Impression and Plan Impression/plan: 1. Traumatic brain injury. Most recent CT scan stable with resolving contusions, stable mild to moderate subdural fluid collections without significant mass effect. 2. UTI. Positive Jane on recent culture. On Diflucan 3. Hypertension, atrial fibrillation. Remains on Lopressor. 3. Recent seizures. He remains on Keppra and Dilantin. Recheck Dilantin level 4. Sacral decubitus ulcer. Continuing decubitus precautions, wound care, Santyl 5. Leukocytosis. Hematology following-workup in progress 6. Diabetes. Remains on insulin sliding scale. 7. Respiratory insufficiency. Improving. Most recent chest x-ray improved. Weaning off oxygen. Findings were discussed with the patient's family on 12/11/16. They are trying to make arrangements to transfer the patient back to [facility]. Continuing therapy Total Minutes: 18 Tony Godfrey MD Dec 12, 2016 23:13
[2016-12-13 00:11] VITALS: BP 132/76; PULSE 133; RESP 19; TEMP 99.3; O2SAT 94
[2016-12-13] MEDS: METOPROLOL TARTRATE 25 MG TAB PO SCH ×4 (00:51→20:40)
[2016-12-13 04:12] VITALS: BP 139/76; PULSE 116; RESP 18; TEMP 98.7; O2SAT 94
[2016-12-13] MEDS: levETIRAcetam 500 MG TAB PO SCH ×3 (06:15→20:40)
[2016-12-13] MEDS: PHENYTOIN SODIUM 100 MG CAP PO SCH ×3 (06:15→17:37)
[2016-12-13 06:59] LABS: BICARBONATE 23.2 MEQ/L (21.0-32.0)
[2016-12-13 07:06] LABS: POTASSIUM 4.7 MEQ/L (3.5-5.1)
[2016-12-13 08:00] VITALS: BP 138/78; PULSE 106; RESP 19; TEMP 98.2; O2SAT 94
[2016-12-13] MEDS: CHLORHEXIDINE 0.12% (ORAL KIT) 15 ML CUP MT SCH ×2 (08:00→20:51)
[2016-12-13] MEDS: INSULIN ASPART SUPPLEMENTAL SCALE SQ SCH ×4 (08:00→21:00)
[2016-12-13] MEDS: SODIUM CHLORIDE 0.9% FLUSH 10 ML FLUSH IV FLUSH SCH ×2 (09:00→20:42)
[2016-12-13] MEDS: COLLAGENASE OINT 30 GM TUBE TOPICAL SCH (09:00)
[2016-12-13] MEDS: POLYETHYLENE GLYCOL 17 GM PKG OG-TUBE SCH ×2 (09:00→20:39)
[2016-12-13] MEDS: ARTIFICIAL TEARS OPTH SOLN 15 ML BTL EACH EYE SCH ×3 (09:00→17:37)
[2016-12-13] MEDS: FUROSEMIDE 40 MG/4 ML VIAL IV PUSH SCH (09:00)
[2016-12-13] MEDS: SODIUM CHLORIDE 0.9% FLUSH 10 ML FLUSH IVF SCH (09:00)
[2016-12-13] MEDS: DOCUSATE SODIUM 100 MG/10 ML UDC PO SCH ×2 (10:28→20:39)
[2016-12-13] MEDS: MEGESTROL ACETATE SUSP 400 MG/10 ML CUP PO SCH (10:28)
[2016-12-13] MEDS: FLUCONAZOLE 100 MG TAB PO SCH (10:28)
[2016-12-13] MEDS: TOLTERODINE TARTRATE 2 MG CAP LA PO SCH (10:28)
[2016-12-13] MEDS: LANSOPRAZOLE SOLUTAB 30 MG TAB NG SCH (10:28)
[2016-12-13] MEDS: FINASTERIDE 5 MG TAB PO SCH (10:28)
[2016-12-13] MEDS: MUPIROCIN 2% CREAM 15 GM TOPICAL SCH ×2 (10:30→20:52)
--- NOTE | 2016-12-13 11:13 | HHI.PR ---
Subjective Remarks Follow up visit SDH, UE DVT, HTN, DM2. 12/13: Seen in his bedroom in the presence of his Daughter Miss Cardozo, he is a patient with status post Traumatic Brain injury, CT scan demonstrated resolving contusion, stable mild to moderate subdural fluid collections with out significant mass effect. No nausea, vomit or diarrhea. Objective Vital Signs Date Time Temp Pulse Resp B/P (MAP) Pulse Ox O2 Delivery O2 Flow Rate FiO2 12/13/16 08:00 98.2 106 19 138/78 (98) 94 12/13/16 04:12 98.7 116 18 139/76 (97) 94 12/13/16 00:11 99.3 133 19 132/76 (94) 94 12/12/16 22:06 18 12/12/16 21:35 95 Room Air 12/12/16 20:00 99.2 103 18 149/73 (98) 96 12/12/16 16:00 99.3 103 18 159/77 (104) 96 12/12/16 12:00 98.0 99 20 146/71 (96) 95 I/O 12/12/16 12/12/16 12/12/16 12/13/16 12/13/16 12/13/16 06:59 14:59 22:59 06:59 14:59 22:59 Output Total 600 ml 600 ml Balance -600 ml -600 ml Output Urine Total 600 ml 600 ml # Bowel Movements 1 1 Result Diagram: 12/12/16 0713 12/13/16 0600 Imaging Last Impressions Chest X-Ray 12/04/16 0000 Signed Impressions: Service Date/Time: November 11:58 - CONCLUSION: Improving aeration. Lonnie Blanchard MD Upper Extremity Ultrasound 12/02/16 0000 Signed Impressions: Service Date/Time: Saturday, December 03, 2016 00:53 - CONCLUSION: 1. Occlusive DVT in the cephalic and basilic vein on the right. Alex Goode MD Head CT 12/01/16 0000 Signed Impressions: Service Date/Time: Thursday, December 01, 2016 13:14 - CONCLUSION: Evolving intracranial hemorrhagic foci as above, both intra-axial and extra-axial. Jesus Lee MD Modified Barium Swallow 11/30/16 0000 Signed Impressions: Service Date/Time: Wednesday, November 30, 2016 00:00 - CONCLUSION: Please refer to speech pathology report for full details. Lonnie Cook MD Transcranial Doppler Study Complete 11/17/16 0000 Signed Impressions: Service Date/Time: Thursday, November 17, 2016 10:03 - CONCLUSION: 1. Nondiagnostic examination due to poor transcranial windows. Konstantin Dash MD Abdomen X-Ray 11/12/16 0000 Signed Impressions: Service Date/Time: Saturday, November 12, 2016 08:23 - CONCLUSION: 1. Gastric tube in good position. 2. Probable right renal stones. Narayan Coulter MD Cervical Spine CT 11/09/161950 Signed Impressions: Service Date/Time: Wednesday, November 09, 2016 20:14 - CONCLUSION: Negative trauma CT. Cj Isidro MD Procedures None Other Results Laboratory Tests Test 11/09/16 20:05 11/09/16 22:44 11/10/16 02:50 11/11/16 04:58 Hemoglobin A1c 6.0 % Urine Hyaline Casts 3 /lpf Nasal Screen MRSA (PCR) MRSA NOT DETECTED Myelocytes 1 % Test 11/12/16 09:12 11/15/16 18:19 11/17/16 06:05 11/18/16 14:21 Fibrinogen 432 mg/dL Serum Osmolality 327 MOSM/KG Blood Gas Ventilator Setting PRVC / AC / Plasma Cells % Test 11/19/16 10:20 11/21/16 09:15 11/21/16 09:32 11/21/16 14:30 Thyroid Stimulating Hormone 3rd Gen 1.040 uIU/ML Phenytoin (Dilantin) Level 11.2 MCG/ML Blood Gas Liter Flow 15 L/M Lactic Acid Level 1.5 mmol/L Protein Corrected Calcium 8.3 MG/DL Troponin I 0.08 NG/ML D-Dimer Quantitative (PE/DVT) 24.65 MG/L FEU Test 11/22/16 06:11 11/24/16 07:39 11/26/16 10:42 11/27/16 10:10 Nucleated Red Blood Cells 1 /100 WBC Toxic Granulation 1+ Hematology Comments B-Type Natriuretic Peptide 388 PG/ML Basophilic Stippling FAINT Acanthocytes OCC Random Vancomycin Level 15.5 COMMENT Blood Urea Nitrogen 18 MG/DL 16 MG/DL Creatinine 0.53 MG/DL 0.53 MG/DL Random Glucose 142 MG/DL 137 MG/DL Total Protein 5.4 GM/DL Albumin 1.5 GM/DL Calcium Level 7.7 MG/DL 8.1 MG/DL Phosphorus Level 2.5 MG/DL 2.7 MG/DL Magnesium Level 1.9 MG/DL 2.0 MG/DL Alkaline Phosphatase 140 U/L Aspartate Amino Transf (AST/SGOT) 29 U/L Alanine Aminotransferase (ALT/SGPT) 15 U/L Total Bilirubin 2.5 MG/DL Sodium Level 143 MEQ/L 140 MEQ/L Potassium Level 3.2 MEQ/L 3.0 MEQ/L Chloride Level 110 MEQ/L 106 MEQ/L Carbon Dioxide Level 25.6 MEQ/L 24.8 MEQ/L Prealbumin 6 MG/DL Test 12/01/16 14:49 12/01/16 21:30 12/03/16 17:50 12/03/16 21:51 Blastocytes 1 % Keratocytes OCC Urine Color YELLOW Urine Turbidity CLOUDY Urine pH 5.5 Urine Specific Seanor 1.022 Urine Protein 30 mg/dL Urine Glucose (UA) NEG mg/dL Urine Ketones NEG mg/dL Urine Occult Blood TRACE Urine Nitrite NEG Urine Bilirubin NEG Urine Urobilinogen 4.0 MG/DL Urine Leukocyte Esterase LARGE Urine RBC 165 /hpf Urine WBC 148 /hpf Urine Squamous Epithelial Cells 1 /hpf Urine Amorphous Sediment RARE Urine Mucus FEW /lpf Urine Yeast (Budding) MANY Microscopic Urinalysis Comment CATH-CULTURE IND Haptoglobin 87 MG/DL Iron Level 41 MCG/DL Total Iron Binding Capacity 161 MCG/DL Percent Iron Saturation 25.5 % Ferritin 399 NG/ML Lactate Dehydrogenase 284 U/L Vitamin B12 Level 1653 PG/ML Atypical Lymphocytes % Blood Smear Pathologist Review Reticulocyte Count 2.5 % Absolute Reticulocyte Count 89.1 MIL/L Test 12/04/16 09:15 12/05/16 07:03 12/09/16 16:45 12/11/16 13:31 Prothrombin Time 11.9 SEC Prothromb Time International Ratio 1.1 RATIO Activated Partial Thromboplast Time 32.0 SEC Folate 11.7 NG/ML Immunophenotypic Analysis (T) Eosinophils % 1 % Smudge Cells PRESENT Ovalocytes 1+ Vancomycin Level Trough 15.8 MCG/ML Ammonia 15 MCMOL/L Test 12/11/16 15:20 12/12/16 07:13 12/13/16 06:00 Blood Gas Puncture Site RT RADIAL Blood Gas Patient Temperature 98.6 Blood Gas HCO3 29 mmol/L Blood Gas Base Excess 5.3 mmol/L Blood Gas Oxygen Saturation 92 % Arterial Blood pH 7.52 Arterial Blood Partial Pressure CO2 35 mmHg Arterial Blood Partial Pressure O2 68 mmHg Arterial Blood Oxygen Content 12.6 Vol % Arterial Blood Carboxyhemoglobin 2.0 % Arterial Blood Methemoglobin 0.6 % Blood Gas Hemoglobin 9.7 G/DL Oxygen Delivery Device RA Blood Gas Inspired Oxygen 21 % White Blood Count 11.9 TH/MM3 Red Blood Count 3.38 MIL/MM3 Hemoglobin 10.0 GM/DL Hematocrit 29.7 % Mean Corpuscular Volume 87.8 FL Mean Corpuscular Hemoglobin 29.4 PG Mean Corpuscular Hemoglobin Concent 33.5 % Red Cell Distribution Width 18.4 % Platelet Count 417 TH/MM3 Mean Platelet Volume 7.3 FL Neutrophils (%) (Auto) 25.0 % Lymphocytes (%) (Auto) 63.6 % Monocytes (%) (Auto) 9.4 % Eosinophils (%) (Auto) 1.6 % Basophils (%) (Auto) 0.4 % Neutrophils # (Auto) 3.0 TH/MM3 Lymphocytes # (Auto) 7.6 TH/MM3 Monocytes # (Auto) 1.1 TH/MM3 Eosinophils # (Auto) 0.2 TH/MM3 Basophils # (Auto) 0.0 TH/MM3 CBC Comment AUTO DIFF Differential Total Cells Counted 100 Neutrophils % (Manual) 39 % Band Neutrophils % 1 % Lymphocytes % 46 % Monocytes % 9 % Basophils % 3 % Neutrophils # (Manual) 5.0 TH/MM3 Metamyelocytes 2 % Differential Comment FINAL DIFF MANUAL Platelet Estimate NORMAL Platelet Morphology Comment NORMAL Red Cell Morphology Comment NORMAL Blood Urea Nitrogen 23 MG/DL Creatinine 0.72 MG/DL Random Glucose 202 MG/DL Calcium Level 9.2 MG/DL Sodium Level 135 MEQ/L Potassium Level 4.7 MEQ/L Chloride Level 104 MEQ/L Carbon Dioxide Level 23.2 MEQ/L Anion Gap 8 MEQ/L Estimat Glomerular Filtration Rate 105 ML/MIN Objective Remarks GENERAL: This is a thin-appearing, well-developed patient, in no apparent distress. SKIN: Warm and dry. HEENT: Nose without bleeding. Airway patent. NECK: Trachea midline. Supple. CARDIOVASCULAR: Heart rate irregular, rate wnl without murmurs, gallops, or rubs. RESPIRATORY: Coarse breath sounds BUL. No wheezes, rales, or rhonchi. GASTROINTESTINAL: Abdomen soft, non-tender, nondistended. Bowel Sounds normoactive x4. MUSCULOSKELETAL: Extremities without clubbing, cyanosis, bilateral lower extremity trace edema. NEUROLOGICAL: Drowsy. Moves all extremities weakly. Medications and IVs Current Medications Medications (Trade) Dose Ordered Sig/Gregg Route Start Time Stop Time Status Last Admin (Proscar) 5 mg DAILY PO 11/10/16 09:00 12/13/16 10:28 (Flomax) 0.4 mg HS PO 11/10/16 21:00 12/12/16 20:41 (Detrol La) 2 mg DAILY PO 11/10/16 09:00 12/13/16 10:28 (Glucagon Inj) 1 mg UNSCH PRN OTHER 11/09/16 23:45 11/24/16 03:48 (Ativan Inj) 1 mg Q5M PRN IV 11/12/16 00:45 11/12/16 01:45 (Peridex 0.12% Liq) 15 ml BID@08,20 MT 11/12/16 08:00 12/13/16 08:00 (NS Flush) DAILY IVF 11/12/16 09:00 11/28/16 09:22 (NS Flush) UNSCH PRN IVF 11/12/16 08:15 (Prevacid Odt) 30 mg DAILY NG 11/12/16 09:00 12/13/16 10:28 (Colace Liq) 100 mg Q12HR PO 11/12/16 09:00 12/13/16 10:28 (NS Flush) 2 ml UNSCH PRN IV FLUSH 11/12/16 08:30 (NS Flush) 2 ml BID IV FLUSH 11/12/16 09:00 12/13/16 09:00 (Tears Naturale Opth Soln) 1 drop TID EACH EYE 11/12/16 09:00 12/13/16 09:00 (Zofran Inj) 4 mg Q6H PRN IV 11/12/16 08:30 11/15/16 05:45 (Albuterol Neb) 2.5 mg Q2HR NEB PRN INH 11/12/16 08:30 11/29/16 21:19 (Dulcolax Supp) 10 mg DAILY PRN RECTAL 11/12/16 08:30 (Tylenol 650 Mg/ 20 ml Liq) 650 mg Q6H PRN NG 11/12/16 08:45 12/07/16 19:35 Levetriacetam 100 ml @ 400 mls/hr Q8HR IV 11/12/16 22:00 Future Hold 11/30/16 05:35 (Miralax) 17 gm BID OG-TUBE 11/13/16 21:00 12/12/16 20:41 (Lactulose Liq) 30 ml DAILY PO 11/14/16 09:00 Future Hold 12/02/16 09:54 (Glycerin Adult Supp) 2 gm BID PRN RECTAL 11/13/16 15:00 (Apresoline Inj) 20 mg Q4H PRN IV PUSH 11/14/16 02:15 11/14/16 03:07 Fosphenytoin Sodium 100 mgpe/ Sodium Chloride 52 ml @ 208 mls/hr Q6HR IV 11/18/16 13:00 Future Hold 11/30/16 13:10 (Brethine Inj) 1 mg UNSCH PRN SQ 11/20/16 16:30 (Lasix Inj) 40 mg DAILY IV PUSH 11/22/16 11:00 12/13/16 09:00 (NovoLOG SUPPLEMENTAL SCALE) 1 ACHS SLIDING SCALE SQ 11/24/16 17:00 12/13/16 08:00 (D50w (Syr) Inj) 50 ml UNSCH PRN IV 11/25/16 09:30 11/25/16 09:46 (Megace Liq) 400 mg DAILY PO 11/26/16 09:00 12/13/16 10:28 (Keppra) 1,000 mg Q8HR PO 11/30/16 22:00 12/13/16 06:15 (Dilantin) 100 mg Q6HR PO 11/30/16 19:45 12/13/16 06:15 (Bactroban 2% Cream) 1 applic Q12HR TOPICAL 12/02/16 21:00 12/13/16 10:30 (Diflucan) 100 mg DAILY PO 12/04/16 09:00 12/13/16 10:28 (Santyl Oint) 1 applic DAILY TOPICAL 12/04/16 12:00 12/13/16 09:00 (Levsin) 0.125 mg Q4H PRN PO 12/04/16 11:30 (Heparin Central Flush) 200 units DAILY IV FLUSH 12/05/16 12:00 (Tylenol 160 Mg/ 5 ml Liq) 650 mg Q4H PRN PO 12/11/16 11:00 12/12/16 20:39 (Lopressor) 25 mg Q8HR PO 12/13/16 00:45 12/13/16 06:15 A/P Assessment and Plan 80 y/o with a history of HTN, DM, and BPH presented to the ED after a fall at home, with a LOC for 10-15 mins. Closed head injury Subdural hematoma Bilateral intracranial hemorrhaging - Managed by neurosurgery and no indication for surgery. - Neuro checks, seizure precautions - Continue with Keppra and Dilantin by mouth; monitor level, confused. Metabolic encephalopathy-improving - head CT 12/01/16 showed Bilateral hypodense subdural hematomas are seen in the occipital region and along the tentorium cerebelli on the right as well as small right frontal subdural hematoma unchanged. The left frontal parenchymal bleed is decreased in density with a small amount of edema identified. There is atrophy and moderate confluent hypodense white matter disease in the periventricular regions. The right frontal and left insular bleeds are much less conspicuous with a small amount of residual high density in the right frontal region with a small amount of surrounding edema. There is no midline shift or mass effect. Vascular calcifications are noted. No fractures. - CXR with improving aeration - Continue neurochecks - Ammonia level within normal. ABG without any changes. Leukocytosis, ? Sepsis Anemia - WBC 15.2 -->13.4 --> 16.4 --> 13.0 - Hematology following. Ordered other testing R/O other bone marrow abnormality. Follow results. - Blood cultures no growth in 5 days. DC Vanco as planned. - Continue to trend WBC. 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 Atrial fibrillation Hypertension - Continue with Lopressor 25mg BID, increase to TID for better rate control and BP control - Oral anticoagulation contraindicated secondary to intracranial bleed - Monitor BP Trend, HR Decubitus ulcer, DTI sacral area - Continue Santyl - Wound care following. Recommends mable thick coverage of Santyl ointment. 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 Monitor accucheck Occlusive DVT in cephalic vein right upper extremity - Hematology consultation appreciated however oral anticoagulation contraindicated - Avoid IV access RUE Urinary tract infection - off Azactam 1 g IV every 12H - on Diflucan 100 mg by mouth daily 12/03/16 secondary to been culture positive for Jane Generalized weakness, prolonged hospitalization - Attempts by PT unsuccessful because he is drowsy in AM. Waking hours at night, improving Prophylaxis GI - lanosprazole DVT - SCD/pharmacological prophylaxis when okay with neurosurgery Discharge Planning 12/12/16- Pt only qualifies for emergency medicaid, no placement possible at this time. [facility] and [facility] both declined. Unable to proceed with discharge planning at this time. Kameron Mcfarland MD Dec 13, 2016 11:13
--- NOTE | 2016-12-13 11:18 | HHI.PR ---
Review/Management Plan continue current phenytoin dose and keppra phenytoin level is in the therapeutic range today. 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 eating less; losing weight taking pills no sz activity Active Medications Current Medications Medications (Trade) Dose Ordered Sig/Gregg Route Start Time Stop Time Status Last Admin (Proscar) 5 mg DAILY PO 11/10/16 09:00 12/13/16 10:28 (Flomax) 0.4 mg HS PO 11/10/16 21:00 12/12/16 20:41 (Detrol La) 2 mg DAILY PO 11/10/16 09:00 12/13/16 10:28 (Glucagon Inj) 1 mg UNSCH PRN OTHER 11/09/16 23:45 11/24/16 03:48 (Ativan Inj) 1 mg Q5M PRN IV 11/12/16 00:45 11/12/16 01:45 (Peridex 0.12% Liq) 15 ml BID@08,20 MT 11/12/16 08:00 12/13/16 08:00 (NS Flush) DAILY IVF 11/12/16 09:00 11/28/16 09:22 (NS Flush) UNSCH PRN IVF 11/12/16 08:15 (Prevacid Odt) 30 mg DAILY NG 11/12/16 09:00 12/13/16 10:28 (Colace Liq) 100 mg Q12HR PO 11/12/16 09:00 12/13/16 10:28 (NS Flush) 2 ml UNSCH PRN IV FLUSH 11/12/16 08:30 (NS Flush) 2 ml BID IV FLUSH 11/12/16 09:00 12/13/16 09:00 (Tears Naturale Opth Soln) 1 drop TID EACH EYE 11/12/16 09:00 12/13/16 09:00 (Zofran Inj) 4 mg Q6H PRN IV 11/12/16 08:30 11/15/16 05:45 (Albuterol Neb) 2.5 mg Q2HR NEB PRN INH 11/12/16 08:30 11/29/16 21:19 (Dulcolax Supp) 10 mg DAILY PRN RECTAL 11/12/16 08:30 (Tylenol 650 Mg/ 20 ml Liq) 650 mg Q6H PRN NG 11/12/16 08:45 12/07/16 19:35 Levetriacetam 100 ml @ 400 mls/hr Q8HR IV 11/12/16 22:00 Future Hold 11/30/16 05:35 (Miralax) 17 gm BID OG-TUBE 11/13/16 21:00 12/12/16 20:41 (Lactulose Liq) 30 ml DAILY PO 11/14/16 09:00 Future Hold 12/02/16 09:54 (Glycerin Adult Supp) 2 gm BID PRN RECTAL 11/13/16 15:00 (Apresoline Inj) 20 mg Q4H PRN IV PUSH 11/14/16 02:15 11/14/16 03:07 Fosphenytoin Sodium 100 mgpe/ Sodium Chloride 52 ml @ 208 mls/hr Q6HR IV 11/18/16 13:00 Future Hold 11/30/16 13:10 (Brethine Inj) 1 mg UNSCH PRN SQ 11/20/16 16:30 (Lasix Inj) 40 mg DAILY IV PUSH 11/22/16 11:00 12/13/16 09:00 (NovoLOG SUPPLEMENTAL SCALE) 1 ACHS SLIDING SCALE SQ 11/24/16 17:00 12/13/16 08:00 (D50w (Syr) Inj) 50 ml UNSCH PRN IV 11/25/16 09:30 11/25/16 09:46 (Megace Liq) 400 mg DAILY PO 11/26/16 09:00 12/13/16 10:28 (Keppra) 1,000 mg Q8HR PO 11/30/16 22:00 12/13/16 06:15 (Dilantin) 100 mg Q6HR PO 11/30/16 19:45 12/13/16 06:15 (Bactroban 2% Cream) 1 applic Q12HR TOPICAL 12/02/16 21:00 12/13/16 10:30 (Diflucan) 100 mg DAILY PO 12/04/16 09:00 12/13/16 10:28 (Santyl Oint) 1 applic DAILY TOPICAL 12/04/16 12:00 12/13/16 09:00 (Levsin) 0.125 mg Q4H PRN PO 12/04/16 11:30 (Heparin Central Flush) 200 units DAILY IV FLUSH 12/05/16 12:00 (Tylenol 160 Mg/ 5 ml Liq) 650 mg Q4H PRN PO 12/11/16 11:00 12/12/16 20:39 (Lopressor) 25 mg Q8HR PO 12/13/16 00:45 12/13/16 06:15 Allergies Allergies Coded Allergies Penicillins (Verified Allergy, Unknown, 11/09/16) Review of Systems All other ROS: ROS reviewed as documented in chart Exam I&O / VS Vital Signs Date Time Temp Pulse Resp B/P (MAP) Pulse Ox O2 Delivery O2 Flow Rate FiO2 12/13/16 08:00 98.2 106 19 138/78 (98) 94 12/13/16 04:12 98.7 116 18 139/76 (97) 94 12/13/16 00:11 99.3 133 19 132/76 (94) 94 12/12/16 22:06 18 12/12/16 21:35 95 Room Air 12/12/16 20:00 99.2 103 18 149/73 (98) 96 12/12/16 16:00 99.3 103 18 159/77 (104) 96 12/12/16 12:00 98.0 99 20 146/71 (96) 95 Exam Comments drowsy, not following, not verbal, head tilt to left, grimaces, resists pupillary exam, mild rt hemiparesis, localizes well with left side Objective Micro and Labs Laboratory Tests Test 12/13/16 06:00 Blood Urea Nitrogen 23 Creatinine 0.72 Random Glucose 202 Calcium Level 9.2 Sodium Level 135 Potassium Level 4.7 Chloride Level 104 Carbon Dioxide Level 23.2 Anion Gap 8 Estimat Glomerular Filtration Rate 105 Date/Time Source Procedure Growth Status 12/04/16 18:10 Blood Peripheral Aerobic Blood Culture - Final NO GROWTH IN 5 DAYS Complete 12/04/16 18:10 Blood Peripheral Anaerobic Blood Culture - Final NO GROWTH IN 5 DAYS Complete 11/17/16 08:50 Sputum Endotracheal Gram Stain - Final Complete 11/17/16 08:50 Sputum Endotracheal Sputum Culture - Final HEAVY GROWTH NORMAL RESPIRATORY ITZEL Complete 12/01/16 21:30 Urine Catheterized Urine Urine Culture - Final Jane Albicans Complete Problem Qualifiers (1) Traumatic brain injury: Qualified Codes: S06.9X1A - Unspecified intracranial injury with loss of consciousness of 30 minutes or less, initial encounter (2) HTN (hypertension): Qualified Codes: I10 - Essential (primary) hypertension Ernst Pedersen MD Dec 13, 2016 11:18
[2016-12-13 12:00] VITALS: BP 143/75; PULSE 95; RESP 18; TEMP 99; O2SAT 97
--- NOTE | 2016-12-13 13:05 | RADRPT ---
EXAM DATE/TIME: 12/13/2016 12:20 [facility] COMPARISON: CT BRAIN W/O CONTRAST, December 01, 2016, 13:14. INDICATIONS : Lethargy. Fall with hit to back of head and loss of conciousness. MEDICAL HISTORY : Benign prostatic hyperplasia, (BPH) Diabetes mellitus type 2. Hypertension. SURGICAL HISTORY : Lesion removed from neck. ENCOUNTER: Sequela ACUITY: 1 month PAIN SCORE: 0/10 LOCATION: cranial TECHNIQUE: Multiplanar, multisequence MRI of the brain was performed without contrast. FINDINGS: Axial diffusion restricted images demonstrate areas of acute subdural and intraparenchymal hemorrhage . There is lateral hemorrhage seen posteriorly along the right posterior parietal cortex measuring 3 mm in thickness. This extends down along the occipital cortex as well. This area measures 7 mm. This is seen bilaterally. There is intraparenchymal hemorrhage evident in the anterior right parietal fili ex measuring 1.9 x 1.9 cm. There is a secondary of intraparenchymal hemorrhage evident in the orbital frontal portion of the left frontal lobe entering approximately 1.5 x 1.8 cm. The SWI images demonst rate scattered areas of punctate intraparenchymal hemorrhage within both hemispheres. These areas are similar in size to the previous CT scan of 12/01/16. They are however isodense on that examination. There is cortical atrophy. The ventricles are dilated. There is a punctate area of hemorrhage seen along the anterior aspect of the left cerebellar hemisphe re within the posterior fossa. The posterior fossa is otherwise unremarkable in appearance. The visualized portion of sinus and orbit are intact. CONCLUSION: 1. The examination demonstrates multiple small areas of intraparenchymal and extra-axial hemorrhage a s described above. These areas are more apparent on the patient's MRI examination than on the CT. Dir ect comparison is made. The areas of edema and hemorrhage appear similar though they are isointense o n the CT. 2. There is extensive white matter signal abnormality consistent with microvascular ischemic demyelin ative change. There is cortical atrophy. Anthony Burns MD on December 13, 2016 at 12:55 Board Certified Radiologist. This report was verified electronically.
[2016-12-13 15:55] LABS: BACTERIA, URINE MOD /hpf; BLOOD, URINE MOD (NEG); CALCIUM OXALATE CRYSTALS,URINE OCC /hpf; GLUCOSE,URINE NEG (NEG); HYALINE CAST, URINE 7 /lpf (RARE); KETONE, URINE NEG (NEG); MUCUS URINE FEW /lpf (OCC); NITRITE,URINE NEG (NEG); SQUAMOUS EPITHELIAL CELL URINE <1 /hpf (0-5); URINE COLOR YELLOW (YELLW/STRAW)
[2016-12-13 15:59] LABS: COMMENT (UR) CATH-CULTURE IND; CULTURE IF INDICATED CATH CULTURE IND
[2016-12-13 16:00] VITALS: BP 145/79; PULSE 95; RESP 19; TEMP 97.9; O2SAT 96
--- NOTE | 2016-12-13 16:41 | HHI.NSPN ---
History Chief Complaint: Unable to obtain due to patient's clinical condition. Interval History Slept little better last night according to family. According to family he is saying a few words and responds to questions, remains confused, following a few commands occasionally. Exam Results Vital Signs Date Time Temp Pulse Resp B/P (MAP) Pulse Ox O2 Delivery O2 Flow Rate FiO2 12/13/16 16:00 97.9 95 19 145/79 (101) 96 12/13/16 09:30 Nasal Cannula 2.00 12/11/16 19:46 21 Intake and Output 12/13/16 12/13/16 12/14/16 08:00 16:00 00:00 Intake Total 480 ml Output Total 1200 ml Balance -720 ml Physical Examination GENERAL: Patient sitting up in bed, no apparent distress SKIN: Warm, dry & intact. Protective dressing in place over sacrum HEENT: Normocephalic, atraumatic. NECK: No JVD, trachea midline. CARDIOVASCULAR: Regular without murmur RESPIRATORY: Clear, regular, nonlabored GASTROINTESTINAL: Abdomen soft, nontender, positive bowel sounds. MUSCULOSKELETAL: No evident deformity or clubbing. NEUROLOGICAL: He is sleeping this afternoon when examined. A little less responsive but gradually arouses with stimulation. Readily focuses to the left greater than right with conjugate gaze and response to verbal stimulation. Nonverbal Not following commands but occasional purposeful movements with the left greater than right upper extremity. He reaches up with his left hand and scratches his nose Lab, Micro, Other Results Laboratory Tests Test 12/13/16 06:00 12/13/16 14:46 Blood Urea Nitrogen 23 MG/DL Creatinine 0.72 MG/DL Random Glucose 202 MG/DL Calcium Level 9.2 MG/DL Sodium Level 135 MEQ/L Potassium Level 4.7 MEQ/L Chloride Level 104 MEQ/L Carbon Dioxide Level 23.2 MEQ/L Anion Gap 8 MEQ/L Estimat Glomerular Filtration Rate 105 ML/MIN Phenytoin (Dilantin) Level 8.0 MCG/ML Urine Color YELLOW Urine Turbidity HAZY Urine pH 6.0 Urine Specific [place] 1.018 Urine Protein 30 mg/dL Urine Glucose (UA) NEG mg/dL Urine Ketones NEG mg/dL Urine Occult Blood MOD Urine Nitrite NEG Urine Bilirubin NEG Urine Urobilinogen 4.0 MG/DL Urine Leukocyte Esterase MOD Urine RBC 53 /hpf Urine WBC 36 /hpf Urine WBC Clumps RARE Urine Squamous Epithelial Cells <1 /hpf Urine Calcium Oxalate Crystals OCC /hpf Urine Bacteria MOD /hpf Urine Hyaline Casts 7 /lpf Urine Mucus FEW /lpf Microscopic Urinalysis Comment CATH-CULTURE IND Medical Decision Making Impression and Plan Impression/plan: 1. Traumatic brain injury. Most recent CT scan stable with resolving contusions, stable mild to moderate subdural fluid collections without significant mass effect. 2. UTI. Positive Jane on recent culture. On Diflucan 3. Hypertension, atrial fibrillation. Remains on Lopressor. 3. Recent seizures. He remains on Keppra and Dilantin. 12/13/16 Dilantin level 8.0 4. Sacral decubitus ulcer. Continuing decubitus precautions, wound care, Santyl 5. Leukocytosis. Hematology following-workup in progress 6. Diabetes. Remains on insulin sliding scale. 7. Respiratory insufficiency. Improving. Most recent chest x-ray improved. Weaning off oxygen. Findings were discussed with the patient's family again today, his oldest son in the room. They are trying to make arrangements to transfer the patient back to [facility]. Continuing therapy Total Minutes: 18 Tony Godfrey MD Dec 13, 2016 16:41
[2016-12-13] MEDS: TAMSULOSIN HCL 0.4 MG CAP PO SCH (20:39)
[2016-12-13 21:45] VITALS: BP 135/73; PULSE 98; RESP 21; TEMP 98.7; O2SAT 97
--- NOTE | 2016-12-13 22:32 | MG ---
cc: MORRO CANNON MD Lab No: [id number] Date: 12/13/16 Age: 80 Sex: M Race: 1935. An 80-year-old, history of lethargy, confusion. Generalized 1-3 Hz delta activity 20-50 microvolts with occasional theta intrusion, left greater than right slowing. Mild EEG variability reactivity. Limited driving with photic stimulation. Single lead EKG showing sinus rhythm. INTERPRETATION Moderate encephalopathy with asymmetric left greater than right slowing. Clinical correlation. MD GABY Chatman/ /9:36 PM /10:23 PM
[2016-12-14] VITALS (7 sets, daily range): BP systolic 120–175; BP diastolic 73–86; PULSE 91–101; RESP 16–20; TEMP 97.9–98.4; O2SAT 96–97
[2016-12-14] MEDS: PHENYTOIN SODIUM 100 MG CAP PO SCH ×4 (00:22→17:17)
[2016-12-14] MEDS: ACETAMINOPHEN SUSP 160 MG/5 ML UDC PO PRN (02:33)
[2016-12-14] MEDS: levETIRAcetam 500 MG TAB PO SCH ×3 (06:48→21:59)
[2016-12-14] MEDS: METOPROLOL TARTRATE 25 MG TAB PO SCH ×3 (06:49→21:59)
[2016-12-14] MEDS: CHLORHEXIDINE 0.12% (ORAL KIT) 15 ML CUP MT SCH ×2 (08:00→20:00)
[2016-12-14] MEDS: INSULIN ASPART SUPPLEMENTAL SCALE SQ SCH ×4 (08:00→22:05)
[2016-12-14] MEDS: ARTIFICIAL TEARS OPTH SOLN 15 ML BTL EACH EYE SCH ×3 (08:47→17:15)
[2016-12-14] MEDS: SODIUM CHLORIDE 0.9% FLUSH 10 ML FLUSH IV FLUSH SCH ×2 (08:48→22:00)
[2016-12-14] MEDS: POLYETHYLENE GLYCOL 17 GM PKG OG-TUBE SCH ×2 (08:48→21:00)
[2016-12-14] MEDS: SODIUM CHLORIDE 0.9% FLUSH 10 ML FLUSH IVF SCH (08:48)
[2016-12-14] MEDS: COLLAGENASE OINT 30 GM TUBE TOPICAL SCH (08:48)
[2016-12-14] MEDS: FUROSEMIDE 40 MG/4 ML VIAL IV PUSH SCH (08:50)
[2016-12-14] MEDS: FINASTERIDE 5 MG TAB PO SCH (08:51)
[2016-12-14] MEDS: LANSOPRAZOLE SOLUTAB 30 MG TAB NG SCH (08:51)
[2016-12-14] MEDS: MUPIROCIN 2% CREAM 15 GM TOPICAL SCH ×2 (08:51→21:00)
[2016-12-14] MEDS: DOCUSATE SODIUM 100 MG/10 ML UDC PO SCH ×2 (08:51→21:59)
[2016-12-14] MEDS: TOLTERODINE TARTRATE 2 MG CAP LA PO SCH (08:51)
[2016-12-14] MEDS: MEGESTROL ACETATE SUSP 400 MG/10 ML CUP PO SCH (08:51)
[2016-12-14] MEDS: FLUCONAZOLE 100 MG TAB PO SCH (08:51)
--- NOTE | 2016-12-14 11:07 | HHI.PR ---
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 Status: Acute (3) HTN (hypertension) ICD Codes: I10 - Essential (primary) hypertension Status: Chronic (4) Diabetes ICD Codes: E11.9 - Type 2 diabetes mellitus without complications Status: Chronic (5) Subdural hematoma ICD Codes: I62.00 - Nontraumatic subdural hemorrhage, unspecified Status: Acute Subjective Subjective Comments No acute events reported No sz Active Medications Current Medications Medications (Trade) Dose Ordered Sig/Gregg Route Start Time Stop Time Status Last Admin (Proscar) 5 mg DAILY PO 11/10/16 09:00 12/14/16 08:51 (Flomax) 0.4 mg HS PO 11/10/16 21:00 12/13/16 20:39 (Detrol La) 2 mg DAILY PO 11/10/16 09:00 12/14/16 08:51 (Glucagon Inj) 1 mg UNSCH PRN OTHER 11/09/16 23:45 11/24/16 03:48 (Ativan Inj) 1 mg Q5M PRN IV 11/12/16 00:45 11/12/16 01:45 (Peridex 0.12% Liq) 15 ml BID@08,20 MT 11/12/16 08:00 12/13/16 20:51 (NS Flush) DAILY IVF 11/12/16 09:00 11/28/16 09:22 (NS Flush) UNSCH PRN IVF 11/12/16 08:15 (Prevacid Odt) 30 mg DAILY NG 11/12/16 09:00 12/14/16 08:51 (Colace Liq) 100 mg Q12HR PO 11/12/16 09:00 12/14/16 08:51 (NS Flush) 2 ml UNSCH PRN IV FLUSH 11/12/16 08:30 (NS Flush) 2 ml BID IV FLUSH 11/12/16 09:00 12/14/16 08:48 (Tears Naturale Opth Soln) 1 drop TID EACH EYE 11/12/16 09:00 12/14/16 08:47 (Zofran Inj) 4 mg Q6H PRN IV 11/12/16 08:30 11/15/16 05:45 (Albuterol Neb) 2.5 mg Q2HR NEB PRN INH 11/12/16 08:30 11/29/16 21:19 (Dulcolax Supp) 10 mg DAILY PRN RECTAL 11/12/16 08:30 (Tylenol 650 Mg/ 20 ml Liq) 650 mg Q6H PRN NG 11/12/16 08:45 12/07/16 19:35 Levetriacetam 100 ml @ 400 mls/hr Q8HR IV 11/12/16 22:00 Future Hold 11/30/16 05:35 (Miralax) 17 gm BID OG-TUBE 11/13/16 21:00 12/13/16 20:39 (Lactulose Liq) 30 ml DAILY PO 11/14/16 09:00 Future Hold 12/02/16 09:54 (Glycerin Adult Supp) 2 gm BID PRN RECTAL 11/13/16 15:00 (Apresoline Inj) 20 mg Q4H PRN IV PUSH 11/14/16 02:15 11/14/16 03:07 Fosphenytoin Sodium 100 mgpe/ Sodium Chloride 52 ml @ 208 mls/hr Q6HR IV 11/18/16 13:00 Future Hold 11/30/16 13:10 (Brethine Inj) 1 mg UNSCH PRN SQ 11/20/16 16:30 (Lasix Inj) 40 mg DAILY IV PUSH 11/22/16 11:00 12/14/16 08:50 (NovoLOG SUPPLEMENTAL SCALE) 1 ACHS SLIDING SCALE SQ 11/24/16 17:00 12/14/16 08:00 (D50w (Syr) Inj) 50 ml UNSCH PRN IV 11/25/16 09:30 11/25/16 09:46 (Megace Liq) 400 mg DAILY PO 11/26/16 09:00 12/14/16 08:51 (Keppra) 1,000 mg Q8HR PO 11/30/16 22:00 12/14/16 06:48 (Dilantin) 100 mg Q6HR PO 11/30/16 19:45 12/14/16 06:48 (Bactroban 2% Cream) 1 applic Q12HR TOPICAL 12/02/16 21:00 12/14/16 08:51 (Diflucan) 100 mg DAILY PO 12/04/16 09:00 12/14/16 08:51 (Santyl Oint) 1 applic DAILY TOPICAL 12/04/16 12:00 12/14/16 08:48 (Levsin) 0.125 mg Q4H PRN PO 12/04/16 11:30 (Heparin Central Flush) 200 units DAILY IV FLUSH 12/05/16 12:00 (Tylenol 160 Mg/ 5 ml Liq) 650 mg Q4H PRN PO 12/11/16 11:00 12/14/16 02:33 (Lopressor) 25 mg Q8HR PO 12/13/16 00:45 12/14/16 06:49 Allergies Allergies Coded Allergies Penicillins (Verified Allergy, Unknown, 11/09/16) Review of Systems All other ROS: ROS reviewed as documented in chart Exam I&O / VS Vital Signs Date Time Temp Pulse Resp B/P (MAP) Pulse Ox O2 Delivery O2 Flow Rate FiO2 12/14/16 09:15 95 164/81 (108) 97 12/14/16 08:00 98.3 94 18 175/86 (115) 96 12/14/16 06:30 98.0 100 20 120/80 (93) 96 12/14/16 04:14 Room Air 12/14/16 00:30 97.9 96 20 130/76 (94) 96 12/13/16 21:45 98.7 98 21 135/73 (93) 97 12/13/16 16:00 97.9 95 19 145/79 (101) 96 12/13/16 12:00 99.0 95 18 143/75 (97) 97 Exam Comments alert, not following, not verbal, better eye contact, ou 3-2mm, mild rt hemiparesis, localizes well with left side Objective Micro and Labs Laboratory Tests Test 12/13/16 14:46 12/14/16 08:10 Urine Color YELLOW Urine Turbidity HAZY Urine pH 6.0 Urine Specific [place] 1.018 Urine Protein 30 Urine Glucose (UA) NEG Urine Ketones NEG Urine Occult Blood MOD Urine Nitrite NEG Urine Bilirubin NEG Urine Urobilinogen 4.0 Urine Leukocyte Esterase MOD Urine RBC 53 Urine WBC 36 Urine WBC Clumps RARE Urine Squamous Epithelial Cells <1 Urine Calcium Oxalate Crystals OCC Urine Bacteria MOD Urine Hyaline Casts 7 Urine Mucus FEW Microscopic Urinalysis Comment CATH-CULTURE IND Phenytoin (Dilantin) Level 11.0 Date/Time Source Procedure Growth Status 12/04/16 18:10 Blood Peripheral Aerobic Blood Culture - Final NO GROWTH IN 5 DAYS Complete 12/04/16 18:10 Blood Peripheral Anaerobic Blood Culture - Final NO GROWTH IN 5 DAYS Complete 11/17/16 08:50 Sputum Endotracheal Gram Stain - Final Complete 11/17/16 08:50 Sputum Endotracheal Sputum Culture - Final HEAVY GROWTH NORMAL RESPIRATORY ITZEL Complete 12/13/16 14:46 Urine Catheterized Urine Urine Culture Pending Received Problem Qualifiers (1) Traumatic brain injury: Qualified Codes: S06.9X1A - Unspecified intracranial injury with loss of consciousness of 30 minutes or less, initial encounter (2) HTN (hypertension): Qualified Codes: I10 - Essential (primary) hypertension Ernst Pedersen MD Dec 14, 2016 11:07
--- NOTE | 2016-12-14 13:38 | HHI.PR ---
Subjective Remarks Follow up visit SDH, UE DVT, HTN, DM2. Patient seen and examined today. Patient is laying in bed. Continues to be drowsy and lethargic. Grimaces to pain. Occasional cough noted. As per nursing, no acute issues overnight. Patient was out of bed yesterday for about 2 hours with physical therapy. Appears comfortable. 12/14: Seen in his bedroom in the presence of nurse, and his Daughter Miss Cardozo no new issues. continue Neurosurgery working the case Objective Vital Signs Date Time Temp Pulse Resp B/P (MAP) Pulse Ox O2 Delivery O2 Flow Rate FiO2 12/14/16 09:15 95 164/81 (108) 97 12/14/16 08:00 98.3 94 18 175/86 (115) 96 12/14/16 06:30 98.0 100 20 120/80 (93) 96 12/14/16 04:14 Room Air 12/14/16 00:30 97.9 96 20 130/76 (94) 96 12/13/16 21:45 98.7 98 21 135/73 (93) 97 12/13/16 16:00 97.9 95 19 145/79 (101) 96 I/O 12/13/16 12/13/16 12/13/16 12/14/16 12/14/16 12/14/16 07:00 15:00 23:00 07:00 15:00 23:00 Intake Total 480 ml 540 ml 150 ml Output Total 1200 ml 200 ml 300 ml Balance -720 ml 340 ml -150 ml Intake Oral 480 ml 540 ml 150 ml Output Urine Total 1200 ml 200 ml 300 ml # Bowel Movements 1 2 0 2 Result Diagram: 12/12/16 0713 12/13/16 0600 Imaging Last Impressions Brain MRI 12/13/16 0000 Signed Impressions: Service Date/Time: Tuesday, December 13, 2016 12:20 - CONCLUSION: 1. The examination demonstrates multiple small areas of intraparenchymal and extra-axial hemorrhage as described above. These areas are more apparent on the patient's MRI examination than on the CT. Direct comparison is made. The areas of edema and hemorrhage appear similar though they are isointense on the CT. 2. 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 There is cortical atrophy. Anthony Burns MD Chest X-Ray 12/04/16 0000 Signed Impressions: Service Date/Time: November 11:58 - CONCLUSION: Improving aeration. Lonnie Blanchard MD Upper Extremity Ultrasound 12/02/16 0000 Signed Impressions: Service Date/Time: Saturday, December 03, 2016 00:53 - CONCLUSION: 1. Occlusive DVT in the cephalic and basilic vein on the right. Alex Goode MD Head CT 12/01/16 0000 Signed Impressions: Service Date/Time: Thursday, December 01, 2016 13:14 - CONCLUSION: Evolving intracranial hemorrhagic foci as above, both intra-axial and extra-axial. Jesus Lee MD Modified Barium Swallow 11/30/16 0000 Signed Impressions: Service Date/Time: Wednesday, November 30, 2016 00:00 - CONCLUSION: Please refer to speech pathology report for full details. Lonnie Cook MD Transcranial Doppler Study Complete 11/17/16 0000 Signed Impressions: Service Date/Time: Thursday, November 17, 2016 10:03 - CONCLUSION: 1. Nondiagnostic examination due to poor transcranial windows. Konstantin Dash MD Abdomen X-Ray 11/12/16 0000 Signed Impressions: Service Date/Time: Saturday, November 12, 2016 08:23 - CONCLUSION: 1. Gastric tube in good position. 2. Probable right renal stones. Narayan Coulter MD Cervical Spine CT 11/09/161950 Signed Impressions: Service Date/Time: Wednesday, November 09, 2016 20:14 - CONCLUSION: Negative trauma CT. Cj Isidro MD Procedures NONE Other Results Laboratory Tests Test 11/09/16 20:05 11/10/16 02:50 11/11/16 04:58 11/12/16 09:12 Hemoglobin A1c 6.0 % Nasal Screen MRSA (PCR) MRSA NOT DETECTED Myelocytes 1 % Fibrinogen 432 mg/dL Test 11/15/16 18:19 11/17/16 06:05 11/18/16 14:21 11/19/16 10:20 Serum Osmolality 327 MOSM/KG Blood Gas Ventilator Setting PRVC / AC / Plasma Cells % Thyroid Stimulating Hormone 3rd Gen 1.040 uIU/ML Test 11/21/16 09:15 11/21/16 09:32 11/21/16 14:30 11/22/16 06:11 Blood Gas Liter Flow 15 L/M Lactic Acid Level 1.5 mmol/L Protein Corrected Calcium 8.3 MG/DL Troponin I 0.08 NG/ML D-Dimer Quantitative (PE/DVT) 24.65 MG/L FEU Nucleated Red Blood Cells 1 /100 WBC Toxic Granulation 1+ Hematology Comments B-Type Natriuretic Peptide 388 PG/ML Test 11/24/16 07:39 11/26/16 10:42 11/27/16 10:10 12/01/16 14:49 Basophilic Stippling FAINT Acanthocytes OCC Random Vancomycin Level 15.5 COMMENT Blood Urea Nitrogen 18 MG/DL 16 MG/DL Creatinine 0.53 MG/DL 0.53 MG/DL Random Glucose 142 MG/DL 137 MG/DL Total Protein 5.4 GM/DL Albumin 1.5 GM/DL Calcium Level 7.7 MG/DL 8.1 MG/DL Phosphorus Level 2.5 MG/DL 2.7 MG/DL Magnesium Level 1.9 MG/DL 2.0 MG/DL Alkaline Phosphatase 140 U/L Aspartate Amino Transf (AST/SGOT) 29 U/L Alanine Aminotransferase (ALT/SGPT) 15 U/L Total Bilirubin 2.5 MG/DL Sodium Level 143 MEQ/L 140 MEQ/L Potassium Level 3.2 MEQ/L 3.0 MEQ/L Chloride Level 110 MEQ/L 106 MEQ/L Carbon Dioxide Level 25.6 MEQ/L 24.8 MEQ/L Prealbumin 6 MG/DL Blastocytes 1 % Keratocytes OCC Test 12/01/16 21:30 12/03/16 17:50 12/03/16 21:51 12/04/16 09:15 Urine Amorphous Sediment RARE Urine Yeast (Budding) MANY Haptoglobin 87 MG/DL Iron Level 41 MCG/DL Total Iron Binding Capacity 161 MCG/DL Percent Iron Saturation 25.5 % Ferritin 399 NG/ML Lactate Dehydrogenase 284 U/L Vitamin B12 Level 1653 PG/ML Atypical Lymphocytes % Blood Smear Pathologist Review Reticulocyte Count 2.5 % Absolute Reticulocyte Count 89.1 MIL/L Prothrombin Time 11.9 SEC Prothromb Time International Ratio 1.1 RATIO Activated Partial Thromboplast Time 32.0 SEC Folate 11.7 NG/ML Immunophenotypic Analysis (T) Test 12/05/16 07:03 12/09/16 16:45 12/11/16 13:31 12/11/16 15:20 Eosinophils % 1 % Smudge Cells PRESENT Ovalocytes 1+ Vancomycin Level Trough 15.8 MCG/ML Ammonia 15 MCMOL/L Blood Gas Puncture Site RT RADIAL Blood Gas Patient Temperature 98.6 Blood Gas HCO3 29 mmol/L Blood Gas Base Excess 5.3 mmol/L Blood Gas Oxygen Saturation 92 % Arterial Blood pH 7.52 Arterial Blood Partial Pressure CO2 35 mmHg Arterial Blood Partial Pressure O2 68 mmHg Arterial Blood Oxygen Content 12.6 Vol % Arterial Blood Carboxyhemoglobin 2.0 % Arterial Blood Methemoglobin 0.6 % Blood Gas Hemoglobin 9.7 G/DL Oxygen Delivery Device RA Blood Gas Inspired Oxygen 21 % Test 12/12/16 07:13 12/13/16 06:00 12/13/16 14:46 12/14/16 08:10 White Blood Count 11.9 TH/MM3 Red Blood Count 3.38 MIL/MM3 Hemoglobin 10.0 GM/DL Hematocrit 29.7 % Mean Corpuscular Volume 87.8 FL Mean Corpuscular Hemoglobin 29.4 PG Mean Corpuscular Hemoglobin Concent 33.5 % Red Cell Distribution Width 18.4 % Platelet Count 417 TH/MM3 Mean Platelet Volume 7.3 FL Neutrophils (%) (Auto) 25.0 % Lymphocytes (%) (Auto) 63.6 % Monocytes (%) (Auto) 9.4 % Eosinophils (%) (Auto) 1.6 % Basophils (%) (Auto) 0.4 % Neutrophils # (Auto) 3.0 TH/MM3 Lymphocytes # (Auto) 7.6 TH/MM3 Monocytes # (Auto) 1.1 TH/MM3 Eosinophils # (Auto) 0.2 TH/MM3 Basophils # (Auto) 0.0 TH/MM3 CBC Comment AUTO DIFF Differential Total Cells Counted 100 Neutrophils % (Manual) 39 % Band Neutrophils % 1 % Lymphocytes % 46 % Monocytes % 9 % Basophils % 3 % Neutrophils # (Manual) 5.0 TH/MM3 Metamyelocytes 2 % Differential Comment FINAL DIFF MANUAL Platelet Estimate NORMAL Platelet Morphology Comment NORMAL Red Cell Morphology Comment NORMAL Blood Urea Nitrogen 23 MG/DL Creatinine 0.72 MG/DL Random Glucose 202 MG/DL Calcium Level 9.2 MG/DL Sodium Level 135 MEQ/L Potassium Level 4.7 MEQ/L Chloride Level 104 MEQ/L Carbon Dioxide Level 23.2 MEQ/L Anion Gap 8 MEQ/L Estimat Glomerular Filtration Rate 105 ML/MIN Urine Color YELLOW Urine Turbidity HAZY Urine pH 6.0 Urine Specific [place] 1.018 Urine Protein 30 mg/dL Urine Glucose (UA) NEG mg/dL Urine Ketones NEG mg/dL Urine Occult Blood MOD Urine Nitrite NEG Urine Bilirubin NEG Urine Urobilinogen 4.0 MG/DL Urine Leukocyte Esterase MOD Urine RBC 53 /hpf Urine WBC 36 /hpf Urine WBC Clumps RARE Urine Squamous Epithelial Cells <1 /hpf Urine Calcium Oxalate Crystals OCC /hpf Urine Bacteria MOD /hpf Urine Hyaline Casts 7 /lpf Urine Mucus FEW /lpf Microscopic Urinalysis Comment CATH-CULTURE IND Albumin 2.3 GM/DL Phenytoin (Dilantin) Level 11.0 MCG/ML Objective Remarks GENERAL: This is a thin-appearing, well-developed patient, in no apparent distress. SKIN: Warm and dry. HEENT: Nose without bleeding. Airway patent. NECK: Trachea midline. Supple. CARDIOVASCULAR: Heart rate irregular, rate wnl without murmurs, gallops, or rubs. RESPIRATORY: Coarse breath sounds BUL. No wheezes, rales, or rhonchi. GASTROINTESTINAL: Abdomen soft, non-tender, nondistended. Bowel Sounds normoactive x4. MUSCULOSKELETAL: Extremities without clubbing, cyanosis, bilateral lower extremity trace edema. NEUROLOGICAL: Drowsy. Moves all extremities weakly. Medications and IVs Current Medications Medications (Trade) Dose Ordered Sig/Gregg Route Start Time Stop Time Status Last Admin (Proscar) 5 mg DAILY PO 11/10/16 09:00 12/14/16 08:51 (Flomax) 0.4 mg HS PO 11/10/16 21:00 12/13/16 20:39 (Detrol La) 2 mg DAILY PO 11/10/16 09:00 12/14/16 08:51 (Glucagon Inj) 1 mg UNSCH PRN OTHER 11/09/16 23:45 11/24/16 03:48 (Ativan Inj) 1 mg Q5M PRN IV 11/12/16 00:45 11/12/16 01:45 (Peridex 0.12% Liq) 15 ml BID@08,20 MT 11/12/16 08:00 12/13/16 20:51 (NS Flush) DAILY IVF 11/12/16 09:00 11/28/16 09:22 (NS Flush) UNSCH PRN IVF 11/12/16 08:15 (Prevacid Odt) 30 mg DAILY NG 11/12/16 09:00 12/14/16 08:51 (Colace Liq) 100 mg Q12HR PO 11/12/16 09:00 12/14/16 08:51 (NS Flush) 2 ml UNSCH PRN IV FLUSH 11/12/16 08:30 (NS Flush) 2 ml BID IV FLUSH 11/12/16 09:00 12/14/16 08:48 (Tears Naturale Opth Soln) 1 drop TID EACH EYE 11/12/16 09:00 12/14/16 12:48 (Zofran Inj) 4 mg Q6H PRN IV 11/12/16 08:30 11/15/16 05:45 (Albuterol Neb) 2.5 mg Q2HR NEB PRN INH 11/12/16 08:30 11/29/16 21:19 (Dulcolax Supp) 10 mg DAILY PRN RECTAL 11/12/16 08:30 (Tylenol 650 Mg/ 20 ml Liq) 650 mg Q6H PRN NG 11/12/16 08:45 12/07/16 19:35 Levetriacetam 100 ml @ 400 mls/hr Q8HR IV 11/12/16 22:00 Future Hold 11/30/16 05:35 (Miralax) 17 gm BID OG-TUBE 11/13/16 21:00 12/13/16 20:39 (Lactulose Liq) 30 ml DAILY PO 11/14/16 09:00 Future Hold 12/02/16 09:54 (Glycerin Adult Supp) 2 gm BID PRN RECTAL 11/13/16 15:00 (Apresoline Inj) 20 mg Q4H PRN IV PUSH 11/14/16 02:15 11/14/16 03:07 Fosphenytoin Sodium 100 mgpe/ Sodium Chloride 52 ml @ 208 mls/hr Q6HR IV 11/18/16 13:00 Future Hold 11/30/16 13:10 (Brethine Inj) 1 mg UNSCH PRN SQ 11/20/16 16:30 (Lasix Inj) 40 mg DAILY IV PUSH 11/22/16 11:00 12/14/16 08:50 (NovoLOG SUPPLEMENTAL SCALE) 1 ACHS SLIDING SCALE SQ 11/24/16 17:00 12/14/16 12:00 (D50w (Syr) Inj) 50 ml UNSCH PRN IV 11/25/16 09:30 11/25/16 09:46 (Megace Liq) 400 mg DAILY PO 11/26/16 09:00 12/14/16 08:51 (Keppra) 1,000 mg Q8HR PO 11/30/16 22:00 12/14/16 12:49 (Bactroban 2% Cream) 1 applic Q12HR TOPICAL 12/02/16 21:00 12/14/16 08:51 (Diflucan) 100 mg DAILY PO 12/04/16 09:00 12/14/16 08:51 (Santyl Oint) 1 applic DAILY TOPICAL 12/04/16 12:00 12/14/16 08:48 (Levsin) 0.125 mg Q4H PRN PO 12/04/16 11:30 (Heparin Central Flush) 200 units DAILY IV FLUSH 12/05/16 12:00 (Tylenol 160 Mg/ 5 ml Liq) 650 mg Q4H PRN PO 12/11/16 11:00 12/14/16 02:33 (Lopressor) 25 mg Q8HR PO 12/13/16 00:45 12/14/16 12:48 (Dilantin) 100 mg TID PO 12/14/16 13:00 12/14/16 12:49 A/P Assessment and Plan 80 y/o with a history of HTN, DM, and BPH presented to the ED after a fall at home, with a LOC for 10-15 mins. Closed head injury Subdural hematoma Bilateral intracranial hemorrhaging - Managed by neurosurgery and no indication for surgery. - Neuro checks, seizure precautions - Continue with Keppra and Dilantin by mouth; monitor level, confused. Metabolic encephalopathy-improving - head CT 12/01/16 showed Bilateral hypodense subdural hematomas are seen in the occipital region and along the tentorium cerebelli on the right as well as small right frontal subdural hematoma unchanged. The left frontal parenchymal bleed is decreased in density with a small amount of edema identified. There is atrophy and moderate confluent hypodense white matter disease in the periventricular regions. The right frontal and left insular bleeds are much less conspicuous with a small amount of residual high density in the right frontal region with a small amount of surrounding edema. There is no midline shift or mass effect. Vascular calcifications are noted. No fractures. - CXR with improving aeration - Continue neurochecks - Ammonia level within normal. ABG without any changes. Leukocytosis, ? Sepsis Anemia - WBC 15.2 -->13.4 --> 16.4 --> 13.0 - Hematology following. Ordered other testing R/O other bone marrow abnormality. Follow results. - Blood cultures no growth in 5 days. DC Vanco as planned. - Continue to trend WBC. 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 Atrial fibrillation Hypertension - Continue with Lopressor 25mg BID, increase to TID for better rate control and BP control - Oral anticoagulation contraindicated secondary to intracranial bleed - Monitor BP Trend, HR Decubitus ulcer, DTI sacral area - Continue Santyl - Wound care following. Recommends mable thick coverage of Santyl ointment. 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 Monitor accucheck Occlusive DVT in cephalic vein right upper extremity - Hematology consultation appreciated however oral anticoagulation contraindicated - Avoid IV access RUE Urinary tract infection - off Azactam 1 g IV every 12H - on Diflucan 100 mg by mouth daily 12/03/16 secondary to been culture positive for Jane Generalized weakness, prolonged hospitalization - Attempts by PT unsuccessful because he is drowsy in AM. Waking hours at night, improving Prophylaxis GI - lanosprazole DVT - SCD/pharmacological prophylaxis when okay with neurosurgery Discharge Planning 12/12/16- Pt only qualifies for emergency medicaid, no placement possible at this time. [facility] and [facility] both declined. Unable to proceed with discharge planning at this time. Kameron Mcfarland MD Dec 14, 2016 13:38
--- NOTE | 2016-12-14 19:04 | HHI.NSPN ---
History Chief Complaint: Unable to obtain due to patient's clinical condition. Interval History A little more alert today. According to family he is saying a few words and responds to questions, remains confused, following a few commands occasionally. Exam Results Vital Signs Date Time Temp Pulse Resp B/P (MAP) Pulse Ox O2 Delivery O2 Flow Rate FiO2 12/14/16 16:00 98.1 91 16 157/80 (105) 96 12/14/16 04:14 Room Air 12/13/16 09:30 2.00 12/11/16 19:46 21 Intake and Output 12/14/16 12/14/16 12/15/16 08:00 16:00 00:00 Intake Total 150 ml Output Total 300 ml 400 ml Balance -150 ml -400 ml Physical Examination GENERAL: Patient sitting up in bed, no apparent distress SKIN: Warm, dry & intact. Protective dressing in place over sacrum HEENT: Normocephalic, atraumatic. NECK: No JVD, trachea midline. CARDIOVASCULAR: Regular without murmur RESPIRATORY: Clear, regular, nonlabored GASTROINTESTINAL: Abdomen soft, nontender, positive bowel sounds. MUSCULOSKELETAL: No evident deformity or clubbing. NEUROLOGICAL: He is awake and alert today. He tracks and focuses well with his eyes. Attempts to verbalize. His family states that his words are partially intelligible. Not following commands but occasional purposeful movements with the left greater than right upper extremity. Medical Decision Making Impression and Plan Impression/plan: 1. Traumatic brain injury. Most recent CT scan stable with resolving contusions, stable mild to moderate subdural fluid collections without significant mass effect. 2. UTI. Positive Jane on recent culture. On Diflucan 3. Hypertension, atrial fibrillation. Remains on Lopressor. 3. Recent seizures. He remains on Keppra and Dilantin. 12/13/16 Dilantin level 8.0 4. Sacral decubitus ulcer. Continuing decubitus precautions, wound care, Santyl 5. Leukocytosis. Hematology following-workup in progress 6. Diabetes. Remains on insulin sliding scale. 7. Respiratory insufficiency. Improving. Most recent chest x-ray improved. Weaning off oxygen. Findings were discussed with the patient's family again today. We will assist them with any documentation that they require to transfer the patient back to [facility]. Continuing therapy Total Minutes: 18 Tony Godfrey MD Dec 14, 2016 19:04
[2016-12-14] MEDS: TAMSULOSIN HCL 0.4 MG CAP PO SCH (21:59)
[2016-12-15 00:15] VITALS: BP 135/76; PULSE 94; RESP 20; TEMP 97.7; O2SAT 98
[2016-12-15] MEDS: METOPROLOL TARTRATE 25 MG TAB PO SCH ×3 (05:37→21:04)
[2016-12-15] MEDS: levETIRAcetam 500 MG TAB PO SCH ×3 (05:37→21:04)
[2016-12-15 06:00] VITALS: BP 139/86; PULSE 101; RESP 20; TEMP 98.1; O2SAT 98
[2016-12-15] MEDS: SODIUM CHLORIDE 0.9% FLUSH 10 ML FLUSH IVF SCH (09:00)
[2016-12-15] MEDS: POLYETHYLENE GLYCOL 17 GM PKG OG-TUBE SCH ×2 (09:00→21:00)
[2016-12-15] MEDS: DOCUSATE SODIUM 100 MG/10 ML UDC PO SCH ×2 (09:00→21:00)
[2016-12-15] MEDS: INSULIN ASPART SUPPLEMENTAL SCALE SQ SCH ×4 (09:04→21:16)
[2016-12-15] MEDS: TOLTERODINE TARTRATE 2 MG CAP LA PO SCH (09:05)
[2016-12-15] MEDS: FUROSEMIDE 40 MG/4 ML VIAL IV PUSH SCH (09:06)
[2016-12-15] MEDS: FINASTERIDE 5 MG TAB PO SCH (09:06)
[2016-12-15] MEDS: FLUCONAZOLE 100 MG TAB PO SCH (09:06)
[2016-12-15] MEDS: LANSOPRAZOLE SOLUTAB 30 MG TAB NG SCH (09:06)
[2016-12-15] MEDS: SODIUM CHLORIDE 0.9% FLUSH 10 ML FLUSH IV FLUSH SCH ×2 (09:07→21:04)
[2016-12-15] MEDS: MEGESTROL ACETATE SUSP 400 MG/10 ML CUP PO SCH (09:07)
[2016-12-15 09:09] VITALS: BP 128/78; PULSE 102; RESP 20; TEMP 98.2; O2SAT 94
[2016-12-15] MEDS: CHLORHEXIDINE 0.12% (ORAL KIT) 15 ML CUP MT SCH ×2 (09:09→20:00)
[2016-12-15] MEDS: COLLAGENASE OINT 30 GM TUBE TOPICAL SCH (09:09)
[2016-12-15] MEDS: ARTIFICIAL TEARS OPTH SOLN 15 ML BTL EACH EYE SCH ×3 (09:09→18:00)
[2016-12-15] MEDS: MUPIROCIN 2% CREAM 15 GM TOPICAL SCH ×2 (09:10→21:00)
[2016-12-15] MEDS: PHENYTOIN SODIUM 100 MG CAP PO SCH ×3 (09:11→18:07)
[2016-12-15 10:29] LABS: MAGNESIUM 1.9 MG/DL (1.5-2.5)
--- NOTE | 2016-12-15 12:08 | HHI.NSPN ---
([facility] [facility]) History Chief Complaint: Unable to obtain due to patient's clinical condition. ([place] [facility]) Interval History 11/09: 80-year-old male who according to his family was going up a step into the house with his cane when he fell backwards, striking the back of his head. He was reportedly unconscious for 10-15 minutes. He then had some shaking in the extremities as he was waking up. He has been somewhat sleepy and a little confused since he woke up at the patient's family states that he is conversing reasonably well with them. He normally is fairly independent, ambulating with a cane and is usually mentally alert with only mild memory loss. Positive emesis reported. Patient has no complaint of headache or neck pain. No complaint of low back or joint pain. 11/10: nursing reports agitated overnight, currently sleeping. f/u CT Head completed, moves all four extremities. son translated - oriented to name and place only. 11/11: Notified by PARVIN Stoner, that Nursing had notified her that the patient's mental status was worse this morning and that she had ordered a stat CT brain. When seen this morning the patient is obtunded and not answering to verbal stimuli. Nursing reports that CT had called and was sending someone up to transport the patient to the scanner. She stated that the patient did receive morphine and hydrocodone during the night for pain because he was agitated. 11/12: The patient has been intubated this morning due to persistent decreased mental status. Possibly a few more episodes of seizure activity reported last evening. He is continuing on Dilantin and Keppra for seizures. 11/13: The patient still is intubated, mechanically ventilated and sedated with midazolam. He does not respond to noxious stimulation. The EEG done yesterday morning did demonstrate seizure activity. Neurology evaluated the patient yesterday and adjusted his anti-epileptic medications. An EEG was done this morning prior to the patient being seen. 11/14: The patient remains intubated. A midazolam drip is still infusing as is a fentanyl drip. A repeat Ct brain this morning demonstrated evolving contusions and haemorrhages. 11/15: The patient is intubated without any sedation. The midazolam and fentanyl infusions were discontinued yesterday. A 3% saline drip continues to infuse. He did have a slight twitching of the eyelids when his name was called but no eye opening. 11/16: This morning the patient opened his eyes to verbal stimulation. He continues to be intubated without any sedation. 11/17/16: Patient remains intubated. He had a dose of intravenous sedation last night for agitation. Remains relatively alert. Positive fever last evening. Some difficulty with hemodynamic instability last evening. 11/18: The patient is on a cooling blanket with ice packs when seen this morning. He continues to be intubated. He does look to whomever is speaking and did follow commands. 11/19: The patient is asleep but awakens on his own. He was extubated this morning and is now on a nasal cannula. He follows commands and moves all his extremities to a degree. He does tell his daughter that he is tired. The family reports earlier that the patient did ask where his and son were by name. 11/20: When seen this afternoon the patient had just been transferred to a regular med/surg floor. He appears mildly distressed and is moaning. His daughter states that he has said he has pain all over. 11/21: Notified by [facility] physician (Dr Mejia, PGY1) that patient was having increased respiratory effort. He reported that the patient's oxygen saturation was satisfactory but the chest x-ray demonstrated fluid overload. Therefore 40 mg furosemide IV was ordered as was a nebuliser treatment. When seen the patient appeared moderately distress and had just received the furosemide with the nebuliser treatment ongoing. The Charge Nurse reported that the patient was lethargic and not responding to commands. He reported that the Advance Agent is aware that the patient is being transferred to [facility] for further care and management. The Hospitalist was present and evaluating the patient. 11/22: Patient not opening eyes or following commands. Not verbalizing. 11/23: Pt opens eyes and tracks around room. He is restless. Not following commands for staff or reportedly family. Pt not verbalizing. 11/24: This morning the patient is awake and tracks. He is noted to move the upper extremities spontaneously. He moans but there is no other verbalisation. The son did state that yesterday he was talking quite a bit. When asked the son states that he has no complaint of pain but says that he feels tired all the time. 11/25: The patient is drowsy when seen this afternoon. He does squeeze with the right hand mimicking it demonstrated, otherwise he responded to local noxious stimulation. He did attempt to verbalise a few words. 11/26: The patient is initially seen with Dr Godfrey this morning and is lethargic. His daughter reports that he will not wake up to eat breakfast. This afternoon when seen the patient remains lethargic and minimally responsive to noxious stimulation. His daughter reported that the patient was up for the whole night, not last night but the night before. 11/27: This morning the patient remains lethargic. His daughter reports that he did briefly wake some yesterday and she was able to feed him but not today. 11/28: The patient is drowsy this morning. He does awaken to voice and looks at this practitioner. The son states that the patient didn't know him this morning. He did say the patient did squeeze with his right hand and moved it spontaneously and would grab the covers and move them. He does say that the patient did not move any of his other extremities. The patient did eat well this morning according to the son. The son did have to feed the patient. The patient had a repeat CT brain yesterday due to his continued lethargy/ drowsiness which demonstrated continued evolution of the bilateral intraparenchymal haemorrhages with the subdural haemorrhages decreasing. 11/29: family in room, says pt doing well, she would like to try to fly him back to [facility] for more medical care following completion of rehab 11/30: appears more awake today, son would like to try to have patient brought back to [facility] following discharge. 12/01: The patient is awake today when seen. After the daughter told him who I was he responded with "Daniel doctor." He did follow some some commands. In speaking with the daughter the plan is to take her father back home in 3 to 4 weeks, basically once all the arrangements have been made. When asked about transferring to [place] she said that the family wanted him to stay here until the arrangements have been made. Notified this morning by PARVIN Valdez, that Dr Navarrete had notified him that there is a physician in [place] that would like to speak with Dr Godfrey regarding the patient and that the telephone number is on the chart. 12/02: When seen this afternoon the patient is awake and alert. He does respond and grasps this practitioner's hand in greeting it seems. He does not verbalise. He did have a repeat CT brain yesterday afternoon which demonstrated evolving haemorrhages. 12/03:This morning the patient is awake. He does try to verbalise a couple words but it is garbled. Nursing reports that the patient has had diarrhea and held the docusate and lactulose. The patient had an ultrasound of the right upper extremity yesterday which did demonstrated occlusive thrombus to the cephalic and basilic veins. 12/04: Pt opens eyes. Not following commands. Not verbalizing. 12/05: Patient opens eyes to voice, smiles, questionable followed simple command left UE x one, not following commands other extremities. Not verbalizing. 12/06: Patient's Daughter at bedside. Patient opens eyes to voice, smiles, questionable followed simple command left UE x one, not following commands other extremities. Not verbalizing. 12/07: Patient opens eyes to voice, smiles, questionable followed simple command left UE x one, not following commands other extremities. Not verbalizing. 12/13: Patient reported to be sleeping a little better at night. Still lethargic much of the day. According to family he is saying a few words and responds to questions, remains confused, following a few commands occasionally. 12/15: Patient extremely lethargic. No response to verbal stimulation but did withdraw upper extremities and open eyes to localised noxious stimulation. Slight moaning but no other response. (Brennon White) System Review Comments Unable to obtain due to patient's clinical condition. (Brennon White) Exam Results 12/13/16 12/13/16 12/14/16 12/14/16 12/15/16 12/15/16 06:00 18:00 06:00 18:00 06:00 18:00 Intake Total 480 ml 540 ml 150 ml 100 ml Output Total 600 ml 1200 ml 200 ml 700 ml 400 ml Balance -600 ml -720 ml 340 ml -550 ml -300 ml Intake Oral 480 ml 540 ml 150 ml 100 ml Output Urine Total 600 ml 1200 ml 200 ml 700 ml 400 ml # Bowel Movements 2 2 0 6 1 Vital Signs Date Time Temp Pulse Resp B/P (MAP) Pulse Ox O2 Delivery O2 Flow Rate FiO2 12/15/16 09:09 98.2 102 20 128/78 (95) 94 12/15/16 06:00 98.1 101 20 139/86 (103) 98 12/15/16 00:15 97.7 94 20 135/76 (95) 98 12/14/16 21:30 98.2 100 20 148/73 (98) 97 12/14/16 16:00 98.1 91 16 157/80 (105) 96 12/14/16 12:00 98.4 101 19 134/75 (94) 97 12/14/16 09:15 95 164/81 (108) 97 12/14/16 08:00 98.3 94 18 175/86 (115) 96 12/14/16 06:30 98.0 100 20 120/80 (93) 96 12/14/16 04:14 Room Air 12/14/16 00:30 97.9 96 20 130/76 (94) 96 12/13/16 21:45 98.7 98 21 135/73 (93) 97 12/13/16 16:00 97.9 95 19 145/79 (101) 96 12/13/16 12:00 99.0 95 18 143/75 (97) 97 12/13/16 09:30 Nasal Cannula 2.00 12/13/16 08:00 98.2 106 19 138/78 (98) 94 12/13/16 04:12 98.7 116 18 139/76 (97) 94 12/13/16 00:11 99.3 133 19 132/76 (94) 94 12/12/16 22:06 18 12/12/16 21:35 95 Room Air 12/12/16 20:00 99.2 103 18 149/73 (98) 96 12/12/16 16:00 99.3 103 18 159/77 (104) 96 12/12/16 12:00 98.0 99 20 146/71 (96) 95 (Brennon White) Physical Examination GENERAL: Lethargic, minimal response to noxious stimulation. SKIN: Warm, dry & intact. HEENT: Normocephalic, atraumatic. NECK: No JVD, trachea midline. CARDIOVASCULAR: S1S2 w/RRR w/o M/G/R, radial & pedal pulses 2+ bilaterally, cap refill < 2 sec, 1+ pedal edema. RESPIRATORY: Clear but slightly decreased bilaterally w/o W/R/R, equal excursion , nonlaboured, on RA. GASTROINTESTINAL: Abdomen soft, nontender, positive bowel sounds. MUSCULOSKELETAL: No evident deformity or clubbing. NEUROLOGICAL: Lethargic, GCS 8-9 (E2 V2 M4-5). Eye opening & slight moaning to local noxious stimulus to BUE. Did not follow commands. Withdrawal response vs questionable purposeful movement of BUE to local noxious stimulation, no response with BLE. (Brennon White) Lab, Micro, Other Results Recent Impressions Brain MRI 12/13/16 0000 Signed Impressions: Service Date/Time: Tuesday, December 13, 2016 12:20 - CONCLUSION: 1. The examination demonstrates multiple small areas of intraparenchymal and extra-axial hemorrhage as described above. These areas are more apparent on the patient's MRI examination than on the CT. Direct comparison is made. The areas of edema and hemorrhage appear similar though they are isointense on the CT. 2. 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 There is cortical atrophy. Anthony Burns MD Laboratory Tests Test 12/13/16 06:00 12/13/16 14:46 12/14/16 08:10 12/14/16 13:50 Blood Urea Nitrogen 23 MG/DL Creatinine 0.72 MG/DL Random Glucose 202 MG/DL Calcium Level 9.2 MG/DL Sodium Level 135 MEQ/L Potassium Level 4.7 MEQ/L Chloride Level 104 MEQ/L Carbon Dioxide Level 23.2 MEQ/L Anion Gap 8 MEQ/L Estimat Glomerular Filtration Rate 105 ML/MIN Phenytoin (Dilantin) Level 8.0 MCG/ML 11.0 MCG/ML Urine Color YELLOW Urine Turbidity HAZY Urine pH 6.0 Urine Specific [place] 1.018 Urine Protein 30 mg/dL Urine Glucose (UA) NEG mg/dL Urine Ketones NEG mg/dL Urine Occult Blood MOD Urine Nitrite NEG Urine Bilirubin NEG Urine Urobilinogen 4.0 MG/DL Urine Leukocyte Esterase MOD Urine RBC 53 /hpf Urine WBC 36 /hpf Urine WBC Clumps RARE Urine Squamous Epithelial Cells <1 /hpf Urine Calcium Oxalate Crystals OCC /hpf Urine Bacteria MOD /hpf Urine Hyaline Casts 7 /lpf Urine Mucus FEW /lpf Microscopic Urinalysis Comment CATH-CULTURE IND Albumin 2.3 GM/DL Test 12/15/16 07:39 Potassium Level 3.0 MEQ/L Phosphorus Level 2.9 MG/DL Magnesium Level 1.9 MG/DL Phenytoin (Dilantin) Level 11.0 MCG/ML (Brennon White) Medical Decision Making Impression and Plan Impression: 1. Traumatic brain injury 2. Respiratory failure, improved 3. Seizures 4. Jane UTI, resolved 5. Occlusive DVT to right cephalic & basilic veins 6. Leukocytosis 7. Sacral decubitus 8. Atrial fibrillation 9. Hypertension 10. Diabetes Patient maintaining airway, lethargic today. CT brain with continued evolution of intraparenchymal haemorrhages and decrease in the subdurals. CT brain demonstrates evolving haemorrhages. MRI brain demonstrates intraparenchymal & extra-axial haemorrhages w/ edema stable when compared to CT. 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 Plan: Medical management per Hospitalist. Remains on insulin sliding scale. Remains on metoprolol. Remains on Keppra and Dilantin. Continue decubitus precautions and wound care w/Santyl. Continue neuro checks. Haematology for leukocytosis work-up. Ulcer prophylaxis. Appreciate Hospitalist's input and assistance. Arrangements being made to transfer patient back to [facility]. (Brennon White) Attending Statement I have personally seen and examined the patient on the date of this note. Pertinent documentation and study results have been reviewed by the undersigned. I have personally developed the treatment plan and performed medical decision making. Agree with findings, exam, and treatment plan as noted above. Examination on 12/16/16 reveals relatively stable overall neurologic function. Continues to attempt to vocalize Not following commands consistently Spontaneous purposeful movements of her extremities Continuing Dilantin and Keppra for seizures Respiratory treatments as needed Continue therapies Family continues to try to arrange transfer back to [facility]. (Tony Godfrey MD) Brennon White Dec 15, 2016 12:08 Tony Godfrey MD Dec 17, 2016 19:58
[2016-12-15 12:39] VITALS: BP 133/69; PULSE 110; RESP 20; TEMP 97.2; O2SAT 95
--- NOTE | 2016-12-15 15:57 | HHI.PR ---
Subjective Remarks Follow up visit SDH, UE DVT, HTN, DM2. Patient seen and examined today. Patient is laying in bed. Continues to be drowsy and lethargic. Grimaces to pain. Occasional cough noted. As per nursing, no acute issues overnight. Patient was out of bed yesterday for about 2 hours with physical therapy. Appears comfortable. 12/15: Seen in his bedroom in the presence of his Daughter Miss Cardozo, stable continue Confused, Neurosurgery following, no nausea, vomit of diarrhea. Objective Vital Signs Date Time Temp Pulse Resp B/P (MAP) Pulse Ox O2 Delivery O2 Flow Rate FiO2 12/15/16 12:39 97.2 110 20 133/69 (90) 95 12/15/16 09:09 98.2 102 20 128/78 (95) 94 12/15/16 06:00 98.1 101 20 139/86 (103) 98 12/15/16 00:15 97.7 94 20 135/76 (95) 98 12/14/16 21:30 98.2 100 20 148/73 (98) 97 12/14/16 16:00 98.1 91 16 157/80 (105) 96 I/O 12/14/16 12/14/16 12/14/16 12/15/16 12/15/16 12/15/16 07:00 15:00 23:00 07:00 15:00 23:00 Intake Total 150 ml 0 ml 100 ml Output Total 300 ml 400 ml 100 ml 300 ml Balance -150 ml -400 ml -100 ml -200 ml Intake Oral 150 ml 0 ml 100 ml Output Urine Total 300 ml 400 ml 100 ml 300 ml # Bowel Movements 2 4 0 1 Result Diagram: 12/12/16 0713 12/15/16 0739 Imaging Last Impressions Brain MRI 12/13/16 0000 Signed Impressions: Service Date/Time: Tuesday, December 13, 2016 12:20 - CONCLUSION: 1. The examination demonstrates multiple small areas of intraparenchymal and extra-axial hemorrhage as described above. These areas are more apparent on the patient's MRI examination than on the CT. Direct comparison is made. The areas of edema and hemorrhage appear similar though they are isointense on the CT. 2. 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 There is cortical atrophy. Anthony Burns MD Chest X-Ray 12/04/16 0000 Signed Impressions: Service Date/Time: November 11:58 - CONCLUSION: Improving aeration. Lonnie Blanchard MD Upper Extremity Ultrasound 12/02/16 0000 Signed Impressions: Service Date/Time: Saturday, December 03, 2016 00:53 - CONCLUSION: 1. Occlusive DVT in the cephalic and basilic vein on the right. Alex Goode MD Head CT 12/01/16 0000 Signed Impressions: Service Date/Time: Thursday, December 01, 2016 13:14 - CONCLUSION: Evolving intracranial hemorrhagic foci as above, both intra-axial and extra-axial. Jesus Lee MD Modified Barium Swallow 11/30/16 0000 Signed Impressions: Service Date/Time: Wednesday, November 30, 2016 00:00 - CONCLUSION: Please refer to speech pathology report for full details. Lonnie Cook MD Transcranial Doppler Study Complete 11/17/16 0000 Signed Impressions: Service Date/Time: Thursday, November 17, 2016 10:03 - CONCLUSION: 1. Nondiagnostic examination due to poor transcranial windows. Konstantin Dash MD Abdomen X-Ray 11/12/16 0000 Signed Impressions: Service Date/Time: Saturday, November 12, 2016 08:23 - CONCLUSION: 1. Gastric tube in good position. 2. Probable right renal stones. Narayan Coulter MD Cervical Spine CT 11/09/161950 Signed Impressions: Service Date/Time: Wednesday, November 09, 2016 20:14 - CONCLUSION: Negative trauma CT. Cj Isidro MD Procedures None Other Results Laboratory Tests Test 11/09/16 20:05 11/10/16 02:50 11/11/16 04:58 11/12/16 09:12 Hemoglobin A1c 6.0 % Nasal Screen MRSA (PCR) MRSA NOT DETECTED Myelocytes 1 % Fibrinogen 432 mg/dL Test 11/15/16 18:19 11/17/16 06:05 11/18/16 14:21 11/19/16 10:20 Serum Osmolality 327 MOSM/KG Blood Gas Ventilator Setting PRVC / AC / Plasma Cells % Thyroid Stimulating Hormone 3rd Gen 1.040 uIU/ML Test 11/21/16 09:15 11/21/16 09:32 11/21/16 14:30 11/22/16 06:11 Blood Gas Liter Flow 15 L/M Lactic Acid Level 1.5 mmol/L Protein Corrected Calcium 8.3 MG/DL Troponin I 0.08 NG/ML D-Dimer Quantitative (PE/DVT) 24.65 MG/L FEU Nucleated Red Blood Cells 1 /100 WBC Toxic Granulation 1+ Hematology Comments B-Type Natriuretic Peptide 388 PG/ML Test 11/24/16 07:39 11/26/16 10:42 12/01/16 14:49 12/01/16 21:30 Basophilic Stippling FAINT Acanthocytes OCC Random Vancomycin Level 15.5 COMMENT Blood Urea Nitrogen 18 MG/DL Creatinine 0.53 MG/DL Random Glucose 142 MG/DL Total Protein 5.4 GM/DL Albumin 1.5 GM/DL Calcium Level 7.7 MG/DL Phosphorus Level 2.5 MG/DL Magnesium Level 1.9 MG/DL Alkaline Phosphatase 140 U/L Aspartate Amino Transf (AST/SGOT) 29 U/L Alanine Aminotransferase (ALT/SGPT) 15 U/L Total Bilirubin 2.5 MG/DL Sodium Level 143 MEQ/L Potassium Level 3.2 MEQ/L Chloride Level 110 MEQ/L Carbon Dioxide Level 25.6 MEQ/L Prealbumin 6 MG/DL Blastocytes 1 % Keratocytes OCC Urine Amorphous Sediment RARE Urine Yeast (Budding) MANY Test 12/03/16 17:50 12/03/16 21:51 12/04/16 09:15 12/05/16 07:03 Haptoglobin 87 MG/DL Iron Level 41 MCG/DL Total Iron Binding Capacity 161 MCG/DL Percent Iron Saturation 25.5 % Ferritin 399 NG/ML Lactate Dehydrogenase 284 U/L Vitamin B12 Level 1653 PG/ML Atypical Lymphocytes % Blood Smear Pathologist Review Reticulocyte Count 2.5 % Absolute Reticulocyte Count 89.1 MIL/L Prothrombin Time 11.9 SEC Prothromb Time International Ratio 1.1 RATIO Activated Partial Thromboplast Time 32.0 SEC Folate 11.7 NG/ML Immunophenotypic Analysis (T) Eosinophils % 1 % Smudge Cells PRESENT Ovalocytes 1+ Test 12/09/16 16:45 12/11/16 13:31 12/11/16 15:20 12/12/16 07:13 Vancomycin Level Trough 15.8 MCG/ML Ammonia 15 MCMOL/L Blood Gas Puncture Site RT RADIAL Blood Gas Patient Temperature 98.6 Blood Gas HCO3 29 mmol/L Blood Gas Base Excess 5.3 mmol/L Blood Gas Oxygen Saturation 92 % Arterial Blood pH 7.52 Arterial Blood Partial Pressure CO2 35 mmHg Arterial Blood Partial Pressure O2 68 mmHg Arterial Blood Oxygen Content 12.6 Vol % Arterial Blood Carboxyhemoglobin 2.0 % Arterial Blood Methemoglobin 0.6 % Blood Gas Hemoglobin 9.7 G/DL Oxygen Delivery Device RA Blood Gas Inspired Oxygen 21 % White Blood Count 11.9 TH/MM3 Red Blood Count 3.38 MIL/MM3 Hemoglobin 10.0 GM/DL Hematocrit 29.7 % Mean Corpuscular Volume 87.8 FL Mean Corpuscular Hemoglobin 29.4 PG Mean Corpuscular Hemoglobin Concent 33.5 % Red Cell Distribution Width 18.4 % Platelet Count 417 TH/MM3 Mean Platelet Volume 7.3 FL Neutrophils (%) (Auto) 25.0 % Lymphocytes (%) (Auto) 63.6 % Monocytes (%) (Auto) 9.4 % Eosinophils (%) (Auto) 1.6 % Basophils (%) (Auto) 0.4 % Neutrophils # (Auto) 3.0 TH/MM3 Lymphocytes # (Auto) 7.6 TH/MM3 Monocytes # (Auto) 1.1 TH/MM3 Eosinophils # (Auto) 0.2 TH/MM3 Basophils # (Auto) 0.0 TH/MM3 CBC Comment AUTO DIFF Differential Total Cells Counted 100 Neutrophils % (Manual) 39 % Band Neutrophils % 1 % Lymphocytes % 46 % Monocytes % 9 % Basophils % 3 % Neutrophils # (Manual) 5.0 TH/MM3 Metamyelocytes 2 % Differential Comment FINAL DIFF MANUAL Platelet Estimate NORMAL Platelet Morphology Comment NORMAL Red Cell Morphology Comment NORMAL Test 12/13/16 06:00 12/13/16 14:46 12/14/16 08:10 12/14/16 13:50 Blood Urea Nitrogen 23 MG/DL Creatinine 0.72 MG/DL Random Glucose 202 MG/DL Calcium Level 9.2 MG/DL Sodium Level 135 MEQ/L Potassium Level 4.7 MEQ/L Chloride Level 104 MEQ/L Carbon Dioxide Level 23.2 MEQ/L Anion Gap 8 MEQ/L Estimat Glomerular Filtration Rate 105 ML/MIN Urine Color YELLOW Urine Turbidity HAZY Urine pH 6.0 Urine Specific [place] 1.018 Urine Protein 30 mg/dL Urine Glucose (UA) NEG mg/dL Urine Ketones NEG mg/dL Urine Occult Blood MOD Urine Nitrite NEG Urine Bilirubin NEG Urine Urobilinogen 4.0 MG/DL Urine Leukocyte Esterase MOD Urine RBC 53 /hpf Urine WBC 36 /hpf Urine WBC Clumps RARE Urine Squamous Epithelial Cells <1 /hpf Urine Calcium Oxalate Crystals OCC /hpf Urine Bacteria MOD /hpf Urine Hyaline Casts 7 /lpf Urine Mucus FEW /lpf Microscopic Urinalysis Comment CATH-CULTURE IND Albumin 2.3 GM/DL Test 12/15/16 07:39 Potassium Level 3.0 MEQ/L Phosphorus Level 2.9 MG/DL Magnesium Level 1.9 MG/DL Phenytoin (Dilantin) Level 11.0 MCG/ML Objective Remarks GENERAL: This is a thin-appearing, well-developed patient, in no apparent distress. SKIN: Warm and dry. HEENT: Nose without bleeding. Airway patent. NECK: Trachea midline. Supple. CARDIOVASCULAR: Heart rate irregular, rate wnl without murmurs, gallops, or rubs. RESPIRATORY: Coarse breath sounds BUL. No wheezes, rales, or rhonchi. GASTROINTESTINAL: Abdomen soft, non-tender, nondistended. Bowel Sounds normoactive x4. MUSCULOSKELETAL: Extremities without clubbing, cyanosis, bilateral lower extremity trace edema. NEUROLOGICAL: Drowsy. Moves all extremities weakly. Medications and IVs Current Medications Medications (Trade) Dose Ordered Sig/Gregg Route Start Time Stop Time Status Last Admin (Proscar) 5 mg DAILY PO 11/10/16 09:00 12/15/16 09:06 (Flomax) 0.4 mg HS PO 11/10/16 21:00 12/14/16 21:59 (Detrol La) 2 mg DAILY PO 11/10/16 09:00 12/15/16 09:05 (Glucagon Inj) 1 mg UNSCH PRN OTHER 11/09/16 23:45 11/24/16 03:48 (Ativan Inj) 1 mg Q5M PRN IV 11/12/16 00:45 11/12/16 01:45 (Peridex 0.12% Liq) 15 ml BID@08,20 MT 11/12/16 08:00 12/15/16 09:09 (NS Flush) DAILY IVF 11/12/16 09:00 11/28/16 09:22 (NS Flush) UNSCH PRN IVF 11/12/16 08:15 (Prevacid Odt) 30 mg DAILY NG 11/12/16 09:00 12/15/16 09:06 (Colace Liq) 100 mg Q12HR PO 11/12/16 09:00 12/14/16 21:59 (NS Flush) 2 ml UNSCH PRN IV FLUSH 11/12/16 08:30 (NS Flush) 2 ml BID IV FLUSH 11/12/16 09:00 12/15/16 09:07 (Tears Naturale Opth Soln) 1 drop TID EACH EYE 11/12/16 09:00 12/15/16 13:23 (Zofran Inj) 4 mg Q6H PRN IV 11/12/16 08:30 11/15/16 05:45 (Albuterol Neb) 2.5 mg Q2HR NEB PRN INH 11/12/16 08:30 11/29/16 21:19 (Dulcolax Supp) 10 mg DAILY PRN RECTAL 11/12/16 08:30 (Tylenol 650 Mg/ 20 ml Liq) 650 mg Q6H PRN NG 11/12/16 08:45 12/07/16 19:35 Levetriacetam 100 ml @ 400 mls/hr Q8HR IV 11/12/16 22:00 Future Hold 11/30/16 05:35 (Miralax) 17 gm BID OG-TUBE 11/13/16 21:00 12/13/16 20:39 (Lactulose Liq) 30 ml DAILY PO 11/14/16 09:00 Future Hold 12/02/16 09:54 (Glycerin Adult Supp) 2 gm BID PRN RECTAL 11/13/16 15:00 (Apresoline Inj) 20 mg Q4H PRN IV PUSH 11/14/16 02:15 11/14/16 03:07 Fosphenytoin Sodium 100 mgpe/ Sodium Chloride 52 ml @ 208 mls/hr Q6HR IV 11/18/16 13:00 Future Hold 11/30/16 13:10 (Brethine Inj) 1 mg UNSCH PRN SQ 11/20/16 16:30 (Lasix Inj) 40 mg DAILY IV PUSH 11/22/16 11:00 12/15/16 09:06 (NovoLOG SUPPLEMENTAL SCALE) 1 ACHS SLIDING SCALE SQ 11/24/16 17:00 12/15/16 13:23 (D50w (Syr) Inj) 50 ml UNSCH PRN IV 11/25/16 09:30 11/25/16 09:46 (Megace Liq) 400 mg DAILY PO 11/26/16 09:00 12/15/16 09:07 (Keppra) 1,000 mg Q8HR PO 11/30/16 22:00 12/15/16 13:22 (Bactroban 2% Cream) 1 applic Q12HR TOPICAL 12/02/16 21:00 12/15/16 09:10 (Diflucan) 100 mg DAILY PO 12/04/16 09:00 12/15/16 09:06 (Santyl Oint) 1 applic DAILY TOPICAL 12/04/16 12:00 12/15/16 09:09 (Levsin) 0.125 mg Q4H PRN PO 12/04/16 11:30 (Heparin Central Flush) 200 units DAILY IV FLUSH 12/05/16 12:00 (Tylenol 160 Mg/ 5 ml Liq) 650 mg Q4H PRN PO 12/11/16 11:00 12/14/16 02:33 (Lopressor) 25 mg Q8HR PO 12/13/16 00:45 12/15/16 13:22 (Dilantin) 100 mg TID PO 12/14/16 13:00 12/15/16 13:22 A/P Assessment and Plan 80 y/o with a history of HTN, DM, and BPH presented to the ED after a fall at home, with a LOC for 10-15 mins. Closed head injury Subdural hematoma Bilateral intracranial hemorrhaging - Managed by neurosurgery and no indication for surgery. - Neuro checks, seizure precautions - Keppra and Cerebyx on hold. Metabolic encephalopathy-improving - head CT 12/01/16 showed Bilateral hypodense subdural hematomas are seen in the occipital region and along the tentorium cerebelli on the right as well as small right frontal subdural hematoma unchanged. The left frontal parenchymal bleed is decreased in density with a small amount of edema identified. There is atrophy and moderate confluent hypodense white matter disease in the periventricular regions. The right frontal and left insular bleeds are much less conspicuous with a small amount of residual high density in the right frontal region with a small amount of surrounding edema. There is no midline shift or mass effect. Vascular calcifications are noted. No fractures. - CXR with improving aeration - Continue neurochecks - Ammonia level within normal. ABG without any changes. Leukocytosis, ? Sepsis Anemia - WBC 15.2 -->13.4 --> 16.4 --> 13.0 - Hematology following. Ordered other testing R/O other bone marrow abnormality. Follow results. - Blood cultures no growth in 5 days. DC Vanco as planned. - Continue to trend WBC. 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 Atrial fibrillation Hypertension - Continue with Lopressor 25mg BID, increase to TID for better rate control and BP control - Oral anticoagulation contraindicated secondary to intracranial bleed - Monitor BP Trend, HR Decubitus ulcer, DTI sacral area - Continue Santyl - Wound care following. Recommends mable thick coverage of Santyl ointment. 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 Monitor accucheck Occlusive DVT in cephalic vein right upper extremity - Hematology consultation appreciated however oral anticoagulation contraindicated - Avoid IV access RUE Urinary tract infection - off Azactam 1 g IV every 12H - on Diflucan 100 mg by mouth daily 12/03/16 secondary to been culture positive for Jane Generalized weakness, prolonged hospitalization - Attempts by PT unsuccessful because he is drowsy in AM. Waking hours at night, improving Prophylaxis GI - lanosprazole DVT - SCD/pharmacological prophylaxis when okay with neurosurgery No changes to anterior assessment. Discharge Planning 12/12/16- Pt only qualifies for emergency medicaid, no placement possible at this time. [facility] declined. Unable to proceed with discharge planning at this time. Kameron Mcfarland MD Dec 15, 2016 15:57
[2016-12-15 16:27] VITALS: BP 135/67; PULSE 94; RESP 20; TEMP 97.4; O2SAT 97
[2016-12-15] MEDS: TAMSULOSIN HCL 0.4 MG CAP PO SCH (21:04)
[2016-12-15 21:08] VITALS: BP 155/79; PULSE 90; RESP 24; TEMP 94.7; O2SAT 97
[2016-12-16] VITALS (7 sets, daily range): BP systolic 121–158; BP diastolic 75–85; PULSE 87–115; RESP 17–24; TEMP 97.2–98.2; O2SAT 95–98
[2016-12-16] MEDS: METOPROLOL TARTRATE 25 MG TAB PO SCH ×3 (06:37→21:29)
[2016-12-16] MEDS: levETIRAcetam 500 MG TAB PO SCH ×3 (06:37→21:28)
[2016-12-16] MEDS: CHLORHEXIDINE 0.12% (ORAL KIT) 15 ML CUP MT SCH ×2 (08:00→20:00)
[2016-12-16] MEDS: INSULIN ASPART SUPPLEMENTAL SCALE SQ SCH (08:42)
[2016-12-16] MEDS: SODIUM CHLORIDE 0.9% FLUSH 10 ML FLUSH IV FLUSH SCH ×2 (08:44→21:00)
[2016-12-16] MEDS: ARTIFICIAL TEARS OPTH SOLN 15 ML BTL EACH EYE SCH ×3 (08:44→17:25)
[2016-12-16] MEDS: SODIUM CHLORIDE 0.9% FLUSH 10 ML FLUSH IVF SCH (08:44)
[2016-12-16] MEDS: TOLTERODINE TARTRATE 2 MG CAP LA PO SCH (08:45)
[2016-12-16] MEDS: DOCUSATE SODIUM 100 MG/10 ML UDC PO SCH ×2 (08:45→21:00)
[2016-12-16] MEDS: FINASTERIDE 5 MG TAB PO SCH (08:45)
[2016-12-16] MEDS: FLUCONAZOLE 100 MG TAB PO SCH (08:45)
[2016-12-16] MEDS: FUROSEMIDE 40 MG/4 ML VIAL IV PUSH SCH (08:45)
[2016-12-16] MEDS: POLYETHYLENE GLYCOL 17 GM PKG OG-TUBE SCH ×2 (08:45→21:00)
[2016-12-16] MEDS: LANSOPRAZOLE SOLUTAB 30 MG TAB NG SCH (08:45)
[2016-12-16] MEDS: PHENYTOIN SODIUM 100 MG CAP PO SCH ×3 (08:45→17:25)
[2016-12-16] MEDS: MEGESTROL ACETATE SUSP 400 MG/10 ML CUP PO SCH (08:46)
[2016-12-16] MEDS: MUPIROCIN 2% CREAM 15 GM TOPICAL SCH ×2 (08:55→21:33)
[2016-12-16] MEDS: COLLAGENASE OINT 30 GM TUBE TOPICAL SCH (08:56)
[2016-12-16] MEDS ORDERED: POTASSIUM CHLORIDE 20 MEQ CONTROLLED RELEASE TAB PO ONE ×2 (10:30→13:00)
--- NOTE | 2016-12-16 10:40 | HHI.PR ---
Subjective Remarks Follow up visit SDH, UE DVT, HTN, DM2. Patient seen and examined today. Patient is laying in bed. Continues to be drowsy and lethargic. Grimaces to pain. Occasional cough noted. As per nursing, no acute issues overnight. Patient was out of bed yesterday for about 2 hours with physical therapy. Appears comfortable. 12/16: Stable in his bedroom, in sitting position and sometimes seen in chair. continue confused. no nausea, vomit or diarrhea his Daughter by his side. Objective Vital Signs Date Time Temp Pulse Resp B/P (MAP) Pulse Ox O2 Delivery O2 Flow Rate FiO2 12/16/16 08:28 97.8 104 19 142/85 (104) 95 12/16/16 05:17 98.2 99 24 141/77 (98) 96 12/16/16 01:38 97.5 97 24 149/83 (105) 97 12/15/16 21:08 94.7 90 24 155/79 (104) 97 12/15/16 16:27 97.4 94 20 135/67 (89) 97 12/15/16 12:39 97.2 110 20 133/69 (90) 95 I/O 12/15/16 12/15/16 12/15/16 12/16/16 12/16/16 12/16/16 07:00 15:00 23:00 07:00 15:00 23:00 Intake Total 100 ml 240 ml Output Total 300 ml 350 ml 600 ml Balance -200 ml -110 ml -600 ml Intake Oral 100 ml 240 ml Output Urine Total 300 ml 350 ml 600 ml # Bowel Movements 1 1 Result Diagram: 12/12/16 0713 12/15/16 0739 Imaging Last Impressions Brain MRI 12/13/16 0000 Signed Impressions: Service Date/Time: Tuesday, December 13, 2016 12:20 - CONCLUSION: 1. The examination demonstrates multiple small areas of intraparenchymal and extra-axial hemorrhage as described above. These areas are more apparent on the patient's MRI examination than on the CT. Direct comparison is made. The areas of edema and hemorrhage appear similar though they are isointense on the CT. 2. 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 There is cortical atrophy. Anthony Burns MD Chest X-Ray 12/04/16 0000 Signed Impressions: Service Date/Time: November 11:58 - CONCLUSION: Improving aeration. Lonnie Blanchard MD Upper Extremity Ultrasound 12/02/16 0000 Signed Impressions: Service Date/Time: Saturday, December 03, 2016 00:53 - CONCLUSION: 1. Occlusive DVT in the cephalic and basilic vein on the right. Alex Goode MD Head CT 12/01/16 0000 Signed Impressions: Service Date/Time: Thursday, December 01, 2016 13:14 - CONCLUSION: Evolving intracranial hemorrhagic foci as above, both intra-axial and extra-axial. Jesus Lee MD Modified Barium Swallow 11/30/16 0000 Signed Impressions: Service Date/Time: Wednesday, November 30, 2016 00:00 - CONCLUSION: Please refer to speech pathology report for full details. Lonnie Cook MD Transcranial Doppler Study Complete 11/17/16 0000 Signed Impressions: Service Date/Time: Thursday, November 17, 2016 10:03 - CONCLUSION: 1. Nondiagnostic examination due to poor transcranial windows. Konstantin Dash MD Abdomen X-Ray 11/12/16 0000 Signed Impressions: Service Date/Time: Saturday, November 12, 2016 08:23 - CONCLUSION: 1. Gastric tube in good position. 2. Probable right renal stones. Narayan Coulter MD Cervical Spine CT 11/09/161950 Signed Impressions: Service Date/Time: Wednesday, November 09, 2016 20:14 - CONCLUSION: Negative trauma CT. Cj Isidro MD Procedures None Other Results Laboratory Tests Test 11/09/16 20:05 11/10/16 02:50 11/11/16 04:58 11/12/16 09:12 Hemoglobin A1c 6.0 % Nasal Screen MRSA (PCR) MRSA NOT DETECTED Myelocytes 1 % Fibrinogen 432 mg/dL Test 11/15/16 18:19 11/17/16 06:05 11/18/16 14:21 11/19/16 10:20 Serum Osmolality 327 MOSM/KG Blood Gas Ventilator Setting PRVC / AC / Plasma Cells % Thyroid Stimulating Hormone 3rd Gen 1.040 uIU/ML Test 11/21/16 09:15 11/21/16 09:32 11/21/16 14:30 11/22/16 06:11 Blood Gas Liter Flow 15 L/M Lactic Acid Level 1.5 mmol/L Protein Corrected Calcium 8.3 MG/DL Troponin I 0.08 NG/ML D-Dimer Quantitative (PE/DVT) 24.65 MG/L FEU Nucleated Red Blood Cells 1 /100 WBC Toxic Granulation 1+ Hematology Comments B-Type Natriuretic Peptide 388 PG/ML Test 11/24/16 07:39 11/26/16 10:42 12/01/16 14:49 12/01/16 21:30 Basophilic Stippling FAINT Acanthocytes OCC Random Vancomycin Level 15.5 COMMENT Blood Urea Nitrogen 18 MG/DL Creatinine 0.53 MG/DL Random Glucose 142 MG/DL Total Protein 5.4 GM/DL Albumin 1.5 GM/DL Calcium Level 7.7 MG/DL Phosphorus Level 2.5 MG/DL Magnesium Level 1.9 MG/DL Alkaline Phosphatase 140 U/L Aspartate Amino Transf (AST/SGOT) 29 U/L Alanine Aminotransferase (ALT/SGPT) 15 U/L Total Bilirubin 2.5 MG/DL Sodium Level 143 MEQ/L Potassium Level 3.2 MEQ/L Chloride Level 110 MEQ/L Carbon Dioxide Level 25.6 MEQ/L Prealbumin 6 MG/DL Blastocytes 1 % Keratocytes OCC Urine Amorphous Sediment RARE Urine Yeast (Budding) MANY Test 12/03/16 17:50 12/03/16 21:51 12/04/16 09:15 12/05/16 07:03 Haptoglobin 87 MG/DL Iron Level 41 MCG/DL Total Iron Binding Capacity 161 MCG/DL Percent Iron Saturation 25.5 % Ferritin 399 NG/ML Lactate Dehydrogenase 284 U/L Vitamin B12 Level 1653 PG/ML Atypical Lymphocytes % Blood Smear Pathologist Review Reticulocyte Count 2.5 % Absolute Reticulocyte Count 89.1 MIL/L Prothrombin Time 11.9 SEC Prothromb Time International Ratio 1.1 RATIO Activated Partial Thromboplast Time 32.0 SEC Folate 11.7 NG/ML Immunophenotypic Analysis (T) Eosinophils % 1 % Smudge Cells PRESENT Ovalocytes 1+ Test 12/09/16 16:45 12/11/16 13:31 12/11/16 15:20 12/12/16 07:13 Vancomycin Level Trough 15.8 MCG/ML Ammonia 15 MCMOL/L Blood Gas Puncture Site RT RADIAL Blood Gas Patient Temperature 98.6 Blood Gas HCO3 29 mmol/L Blood Gas Base Excess 5.3 mmol/L Blood Gas Oxygen Saturation 92 % Arterial Blood pH 7.52 Arterial Blood Partial Pressure CO2 35 mmHg Arterial Blood Partial Pressure O2 68 mmHg Arterial Blood Oxygen Content 12.6 Vol % Arterial Blood Carboxyhemoglobin 2.0 % Arterial Blood Methemoglobin 0.6 % Blood Gas Hemoglobin 9.7 G/DL Oxygen Delivery Device RA Blood Gas Inspired Oxygen 21 % White Blood Count 11.9 TH/MM3 Red Blood Count 3.38 MIL/MM3 Hemoglobin 10.0 GM/DL Hematocrit 29.7 % Mean Corpuscular Volume 87.8 FL Mean Corpuscular Hemoglobin 29.4 PG Mean Corpuscular Hemoglobin Concent 33.5 % Red Cell Distribution Width 18.4 % Platelet Count 417 TH/MM3 Mean Platelet Volume 7.3 FL Neutrophils (%) (Auto) 25.0 % Lymphocytes (%) (Auto) 63.6 % Monocytes (%) (Auto) 9.4 % Eosinophils (%) (Auto) 1.6 % Basophils (%) (Auto) 0.4 % Neutrophils # (Auto) 3.0 TH/MM3 Lymphocytes # (Auto) 7.6 TH/MM3 Monocytes # (Auto) 1.1 TH/MM3 Eosinophils # (Auto) 0.2 TH/MM3 Basophils # (Auto) 0.0 TH/MM3 CBC Comment AUTO DIFF Differential Total Cells Counted 100 Neutrophils % (Manual) 39 % Band Neutrophils % 1 % Lymphocytes % 46 % Monocytes % 9 % Basophils % 3 % Neutrophils # (Manual) 5.0 TH/MM3 Metamyelocytes 2 % Differential Comment FINAL DIFF MANUAL Platelet Estimate NORMAL Platelet Morphology Comment NORMAL Red Cell Morphology Comment NORMAL Test 12/13/16 06:00 12/13/16 14:46 12/14/16 08:10 12/14/16 13:50 Blood Urea Nitrogen 23 MG/DL Creatinine 0.72 MG/DL Random Glucose 202 MG/DL Calcium Level 9.2 MG/DL Sodium Level 135 MEQ/L Potassium Level 4.7 MEQ/L Chloride Level 104 MEQ/L Carbon Dioxide Level 23.2 MEQ/L Anion Gap 8 MEQ/L Estimat Glomerular Filtration Rate 105 ML/MIN Urine Color YELLOW Urine Turbidity HAZY Urine pH 6.0 Urine Specific [place] 1.018 Urine Protein 30 mg/dL Urine Glucose (UA) NEG mg/dL Urine Ketones NEG mg/dL Urine Occult Blood MOD Urine Nitrite NEG Urine Bilirubin NEG Urine Urobilinogen 4.0 MG/DL Urine Leukocyte Esterase MOD Urine RBC 53 /hpf Urine WBC 36 /hpf Urine WBC Clumps RARE Urine Squamous Epithelial Cells <1 /hpf Urine Calcium Oxalate Crystals OCC /hpf Urine Bacteria MOD /hpf Urine Hyaline Casts 7 /lpf Urine Mucus FEW /lpf Microscopic Urinalysis Comment CATH-CULTURE IND Albumin 2.3 GM/DL Test 12/15/16 07:39 12/16/16 09:15 Potassium Level 3.0 MEQ/L Phosphorus Level 2.9 MG/DL Magnesium Level 1.9 MG/DL Phenytoin (Dilantin) Level 10.4 MCG/ML Objective Remarks GENERAL: This is a thin-appearing, well-developed patient, in no apparent distress. SKIN: Warm and dry. HEENT: Nose without bleeding. Airway patent. NECK: Trachea midline. Supple. CARDIOVASCULAR: Heart rate irregular, rate wnl without murmurs, gallops, or rubs. RESPIRATORY: Coarse breath sounds BUL. No wheezes, rales, or rhonchi. GASTROINTESTINAL: Abdomen soft, non-tender, nondistended. Bowel Sounds normoactive x4. MUSCULOSKELETAL: Extremities without clubbing, cyanosis, bilateral lower extremity trace edema. NEUROLOGICAL: Drowsy. Moves all extremities weakly. Medications and IVs Current Medications Medications (Trade) Dose Ordered Sig/Gregg Route Start Time Stop Time Status Last Admin (Proscar) 5 mg DAILY PO 11/10/16 09:00 12/16/16 08:45 (Flomax) 0.4 mg HS PO 11/10/16 21:00 12/15/16 21:04 (Detrol La) 2 mg DAILY PO 11/10/16 09:00 12/16/16 08:45 (Glucagon Inj) 1 mg UNSCH PRN OTHER 11/09/16 23:45 11/24/16 03:48 (Ativan Inj) 1 mg Q5M PRN IV 11/12/16 00:45 11/12/16 01:45 (Peridex 0.12% Liq) 15 ml BID@08,20 MT 11/12/16 08:00 12/15/16 20:00 (NS Flush) DAILY IVF 11/12/16 09:00 11/28/16 09:22 (NS Flush) UNSCH PRN IVF 11/12/16 08:15 (Prevacid Odt) 30 mg DAILY NG 11/12/16 09:00 12/16/16 08:45 (Colace Liq) 100 mg Q12HR PO 11/12/16 09:00 12/14/16 21:59 (NS Flush) 2 ml UNSCH PRN IV FLUSH 11/12/16 08:30 (NS Flush) 2 ml BID IV FLUSH 11/12/16 09:00 12/16/16 08:44 (Tears Naturale Opth Soln) 1 drop TID EACH EYE 11/12/16 09:00 12/16/16 08:44 (Zofran Inj) 4 mg Q6H PRN IV 11/12/16 08:30 11/15/16 05:45 (Albuterol Neb) 2.5 mg Q2HR NEB PRN INH 11/12/16 08:30 11/29/16 21:19 (Dulcolax Supp) 10 mg DAILY PRN RECTAL 11/12/16 08:30 (Tylenol 650 Mg/ 20 ml Liq) 650 mg Q6H PRN NG 11/12/16 08:45 12/07/16 19:35 Levetriacetam 100 ml @ 400 mls/hr Q8HR IV 11/12/16 22:00 Future Hold 11/30/16 05:35 (Miralax) 17 gm BID OG-TUBE 11/13/16 21:00 12/13/16 20:39 (Lactulose Liq) 30 ml DAILY PO 11/14/16 09:00 Future Hold 12/02/16 09:54 (Glycerin Adult Supp) 2 gm BID PRN RECTAL 11/13/16 15:00 (Apresoline Inj) 20 mg Q4H PRN IV PUSH 11/14/16 02:15 11/14/16 03:07 Fosphenytoin Sodium 100 mgpe/ Sodium Chloride 52 ml @ 208 mls/hr Q6HR IV 11/18/16 13:00 Future Hold 11/30/16 13:10 (Brethine Inj) 1 mg UNSCH PRN SQ 11/20/16 16:30 (Lasix Inj) 40 mg DAILY IV PUSH 11/22/16 11:00 12/16/16 08:45 (NovoLOG SUPPLEMENTAL SCALE) 1 ACHS SLIDING SCALE SQ 11/24/16 17:00 12/16/16 08:42 (D50w (Syr) Inj) 50 ml UNSCH PRN IV 11/25/16 09:30 11/25/16 09:46 (Megace Liq) 400 mg DAILY PO 11/26/16 09:00 12/16/16 08:46 (Keppra) 1,000 mg Q8HR PO 11/30/16 22:00 12/16/16 06:37 (Bactroban 2% Cream) 1 applic Q12HR TOPICAL 12/02/16 21:00 12/16/16 08:55 (Diflucan) 100 mg DAILY PO 12/04/16 09:00 12/16/16 08:45 (Santyl Oint) 1 applic DAILY TOPICAL 12/04/16 12:00 12/16/16 08:56 (Levsin) 0.125 mg Q4H PRN PO 12/04/16 11:30 (Heparin Central Flush) 200 units DAILY IV FLUSH 12/05/16 12:00 (Tylenol 160 Mg/ 5 ml Liq) 650 mg Q4H PRN PO 12/11/16 11:00 12/14/16 02:33 (Lopressor) 25 mg Q8HR PO 12/13/16 00:45 12/16/16 06:37 (Dilantin) 100 mg TID PO 12/14/16 13:00 12/16/16 08:45 (KCl) 40 meq ONCE ONCE PO 12/16/16 10:30 12/16/16 10:31 (KCl) 40 meq ONCE ONCE PO 12/16/16 13:00 12/16/16 13:01 A/P Assessment and Plan 80 y/o with a history of HTN, DM, and BPH presented to the ED after a fall at home, with a LOC for 10-15 mins. Closed head injury Subdural hematoma Bilateral intracranial hemorrhaging - Managed by neurosurgery and no indication for surgery. - Neuro checks, seizure precautions - Keppra and Cerebyx on hold. Metabolic encephalopathy-improving - head CT 12/01/16 showed Bilateral hypodense subdural hematomas are seen in the occipital region and along the tentorium cerebelli on the right as well as small right frontal subdural hematoma unchanged. The left frontal parenchymal bleed is decreased in density with a small amount of edema identified. There is atrophy and moderate confluent hypodense white matter disease in the periventricular regions. The right frontal and left insular bleeds are much less conspicuous with a small amount of residual high density in the right frontal region with a small amount of surrounding edema. There is no midline shift or mass effect. Vascular calcifications are noted. No fractures. - CXR with improving aeration - Continue neurochecks - Ammonia level within normal. ABG without any changes. Leukocytosis, ? Sepsis Anemia - WBC 15.2 -->13.4 --> 16.4 --> 13.0 - Hematology following. Ordered other testing R/O other bone marrow abnormality. Follow results. - Blood cultures no growth in 5 days. DC Vanco as planned. - Continue to trend WBC. 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 Atrial fibrillation Hypertension - Continue with Lopressor 25mg BID, increase to TID for better rate control and BP control - Oral anticoagulation contraindicated secondary to intracranial bleed - Monitor BP Trend, HR Decubitus ulcer, DTI sacral area - Continue Santyl - Wound care following. Recommends mable thick coverage of Santyl ointment. 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 Monitor accucheck increased insulin sliding scale to Moderate due to uncontrol Occlusive DVT in cephalic vein right upper extremity - Hematology consultation appreciated however oral anticoagulation contraindicated - Avoid IV access RUE Urinary tract infection - off Azactam 1 g IV every 12H - on Diflucan 100 mg by mouth daily 12/03/16 secondary to been culture positive for Jane Generalized weakness, prolonged hospitalization - Attempts by PT unsuccessful because he is drowsy in AM. Waking hours at night, improving Electrolyte derangement Potassium in 3 replaced. Prophylaxis GI - lanosprazole DVT - SCD/pharmacological prophylaxis when okay with neurosurgery No changes to anterior assessment. Discharge Planning 12/12/16- Pt only qualifies for emergency medicaid, no placement possible at this time. [facility] both declined. Unable to proceed with discharge planning at this time. Kameron Mcfarland MD Dec 16, 2016 10:40
[2016-12-16] MEDS: INSULIN NovoLIN REGULAR SUPPLEMENTAL SCALE SQ SCH ×3 (12:19→21:32)
--- NOTE | 2016-12-16 15:23 | HHI.NSPN ---
([facility]) History Chief Complaint: Unable to obtain due to patient's clinical condition. ([facility]) Interval History 11/09: 80-year-old male who according to his family was going up a step into the house with his cane when he fell backwards, striking the back of his head. He was reportedly unconscious for 10-15 minutes. He then had some shaking in the extremities as he was waking up. He has been somewhat sleepy and a little confused since he woke up at the patient's family states that he is conversing reasonably well with them. He normally is fairly independent, ambulating with a cane and is usually mentally alert with only mild memory loss. Positive emesis reported. Patient has no complaint of headache or neck pain. No complaint of low back or joint pain. 11/10: nursing reports agitated overnight, currently sleeping. f/u CT Head completed, moves all four extremities. son translated - oriented to name and place only. 11/11: Notified by PARVIN Stoner, that Nursing had notified her that the patient's mental status was worse this morning and that she had ordered a stat CT brain. When seen this morning the patient is obtunded and not answering to verbal stimuli. Nursing reports that CT had called and was sending someone up to transport the patient to the scanner. She stated that the patient did receive morphine and hydrocodone during the night for pain because he was agitated. 11/12: The patient has been intubated this morning due to persistent decreased mental status. Possibly a few more episodes of seizure activity reported last evening. He is continuing on Dilantin and Keppra for seizures. 11/13: The patient still is intubated, mechanically ventilated and sedated with midazolam. He does not respond to noxious stimulation. The EEG done yesterday morning did demonstrate seizure activity. Neurology evaluated the patient yesterday and adjusted his anti-epileptic medications. An EEG was done this morning prior to the patient being seen. 11/14: The patient remains intubated. A midazolam drip is still infusing as is a fentanyl drip. A repeat Ct brain this morning demonstrated evolving contusions and haemorrhages. 11/15: The patient is intubated without any sedation. The midazolam and fentanyl infusions were discontinued yesterday. A 3% saline drip continues to infuse. He did have a slight twitching of the eyelids when his name was called but no eye opening. 11/16: This morning the patient opened his eyes to verbal stimulation. He continues to be intubated without any sedation. 11/17/16: Patient remains intubated. He had a dose of intravenous sedation last night for agitation. Remains relatively alert. Positive fever last evening. Some difficulty with hemodynamic instability last evening. 11/18: The patient is on a cooling blanket with ice packs when seen this morning. He continues to be intubated. He does look to whomever is speaking and did follow commands. 11/19: The patient is asleep but awakens on his own. He was extubated this morning and is now on a nasal cannula. He follows commands and moves all his extremities to a degree. He does tell his daughter that he is tired. The family reports earlier that the patient did ask where his and son were by name. 11/20: When seen this afternoon the patient had just been transferred to a regular med/surg floor. He appears mildly distressed and is moaning. His daughter states that he has said he has pain all over. 11/21: Notified by [facility] physician (Dr Mejia, PGY1) that patient was having increased respiratory effort. He reported that the patient's oxygen saturation was satisfactory but the chest x-ray demonstrated fluid overload. Therefore 40 mg furosemide IV was ordered as was a nebuliser treatment. When seen the patient appeared moderately distress and had just received the furosemide with the nebuliser treatment ongoing. The Charge Nurse reported that the patient was lethargic and not responding to commands. He reported that the Headline Writer is aware that the patient is being transferred to [facility] for further care and management. The Hospitalist was present and evaluating the patient. 11/22: Patient not opening eyes or following commands. Not verbalizing. 11/23: Pt opens eyes and tracks around room. He is restless. Not following commands for staff or reportedly family. Pt not verbalizing. 11/24: This morning the patient is awake and tracks. He is noted to move the upper extremities spontaneously. He moans but there is no other verbalisation. The son did state that yesterday he was talking quite a bit. When asked the son states that he has no complaint of pain but says that he feels tired all the time. 11/25: The patient is drowsy when seen this afternoon. He does squeeze with the right hand mimicking it demonstrated, otherwise he responded to local noxious stimulation. He did attempt to verbalise a few words. 11/26: The patient is initially seen with Dr Godfrey this morning and is lethargic. His daughter reports that he will not wake up to eat breakfast. This afternoon when seen the patient remains lethargic and minimally responsive to noxious stimulation. His daughter reported that the patient was up for the whole night, not last night but the night before. 11/27: This morning the patient remains lethargic. His daughter reports that he did briefly wake some yesterday and she was able to feed him but not today. 11/28: The patient is drowsy this morning. He does awaken to voice and looks at this practitioner. The son states that the patient didn't know him this morning. He did say the patient did squeeze with his right hand and moved it spontaneously and would grab the covers and move them. He does say that the patient did not move any of his other extremities. The patient did eat well this morning according to the son. The son did have to feed the patient. The patient had a repeat CT brain yesterday due to his continued lethargy/ drowsiness which demonstrated continued evolution of the bilateral intraparenchymal haemorrhages with the subdural haemorrhages decreasing. 11/29: family in room, says pt doing well, she would like to try to fly him back to [facility] for more medical care following completion of rehab 11/30: appears more awake today, son would like to try to have patient brought back to [facility] following discharge. 12/01: The patient is awake today when seen. After the daughter told him who I was he responded with "Daniel doctor." He did follow some some commands. In speaking with the daughter the plan is to take her father back home in 3 to 4 weeks, basically once all the arrangements have been made. When asked about transferring to [facility] she said that the family wanted him to stay here until the arrangements have been made. Notified this morning by PARVIN Valdez, that Dr Navarrete had notified him that there is a physician in [place] that would like to speak with Dr Godfrey regarding the patient and that the telephone number is on the chart. 12/02: When seen this afternoon the patient is awake and alert. He does respond and grasps this practitioner's hand in greeting it seems. He does not verbalise. He did have a repeat CT brain yesterday afternoon which demonstrated evolving haemorrhages. 12/03:This morning the patient is awake. He does try to verbalise a couple words but it is garbled. Nursing reports that the patient has had diarrhea and held the docusate and lactulose. The patient had an ultrasound of the right upper extremity yesterday which did demonstrated occlusive thrombus to the cephalic and basilic veins. 12/04: Pt opens eyes. Not following commands. Not verbalizing. 12/05: Patient opens eyes to voice, smiles, questionable followed simple command left UE x one, not following commands other extremities. Not verbalizing. 12/06: Patient's Daughter at bedside. Patient opens eyes to voice, smiles, questionable followed simple command left UE x one, not following commands other extremities. Not verbalizing. 12/07: Patient opens eyes to voice, smiles, questionable followed simple command left UE x one, not following commands other extremities. Not verbalizing. 12/13: Patient reported to be sleeping a little better at night. Still lethargic much of the day. According to family he is saying a few words and responds to questions, remains confused, following a few commands occasionally. 12/15: Patient extremely lethargic. No response to verbal stimulation but did withdraw upper extremities and open eyes to localised noxious stimulation. Slight moaning but no other response. 12/16: The patient is lethargic but less so today. He was noted to open his eyes and move both upper extremities spontaneously. He did respond to some commands weakly but did not verbalise. (Brennon White) System Review Comments Unable to obtain due to patient's clinical condition. (Brennon White) Exam Results 12/14/16 12/14/16 12/15/16 12/15/16 12/16/16 12/16/16 05:59 17:59 05:59 17:59 05:59 17:59 Intake Total 540 ml 150 ml 0 ml 340 ml 240 ml Output Total 200 ml 700 ml 100 ml 650 ml 600 ml 550 ml Balance 340 ml -550 ml -100 ml -310 ml -600 ml -310 ml Intake Oral 540 ml 150 ml 0 ml 340 ml 240 ml Output Urine Total 200 ml 700 ml 100 ml 650 ml 600 ml 550 ml Bladder Scan Volume Amount 517 ml # Bowel Movements 0 6 0 2 Vital Signs Date Time Temp Pulse Resp B/P (MAP) Pulse Ox O2 Delivery O2 Flow Rate FiO2 12/16/16 13:21 97.2 115 18 121/78 (92) 96 12/16/16 08:28 97.8 104 19 142/85 (104) 95 12/16/16 05:17 98.2 99 24 141/77 (98) 96 12/16/16 01:38 97.5 97 24 149/83 (105) 97 12/15/16 21:08 94.7 90 24 155/79 (104) 97 12/15/16 16:27 97.4 94 20 135/67 (89) 97 12/15/16 12:39 97.2 110 20 133/69 (90) 95 12/15/16 09:09 98.2 102 20 128/78 (95) 94 12/15/16 06:00 98.1 101 20 139/86 (103) 98 12/15/16 00:15 97.7 94 20 135/76 (95) 98 12/14/16 21:30 98.2 100 20 148/73 (98) 97 12/14/16 16:00 98.1 91 16 157/80 (105) 96 12/14/16 12:00 98.4 101 19 134/75 (94) 97 12/14/16 09:15 95 164/81 (108) 97 12/14/16 08:00 98.3 94 18 175/86 (115) 96 12/14/16 06:30 98.0 100 20 120/80 (93) 96 12/14/16 04:14 Room Air 12/14/16 00:30 97.9 96 20 130/76 (94) 96 12/13/16 21:45 98.7 98 21 135/73 (93) 97 12/13/16 16:00 97.9 95 19 145/79 (101) 96 (Brennon White) Physical Examination GENERAL: Slightly less lethargic, some response to commands, no apparent distress. SKIN: Warm, dry & intact. HEENT: Normocephalic, atraumatic. NECK: No JVD, trachea midline. CARDIOVASCULAR: S1S2 w/RRR w/o M/G/R, radial & pedal pulses 2+ bilaterally, cap refill < 2 sec, 1+ pedal edema. RESPIRATORY: Clear but slightly decreased bilaterally w/o W/R/R, equal excursion , nonlaboured, on RA. GASTROINTESTINAL: Abdomen soft, nontender, bowel sounds not appreciated. MUSCULOSKELETAL: No evident deformity or clubbing. NEUROLOGICAL: Slightly less lethargic, GCS 10 (E3 V1 M6). Eye opening spontaneously. No verbalisation. Did follow some simple commands. Spontaneous movement of the upper extremities noted. Trace squeeze with left hand to command. Did move toes and feet to command. (Brennon White) Lab, Micro, Other Results Laboratory Tests Test 12/14/16 08:10 12/14/16 13:50 12/15/16 07:39 12/16/16 09:15 Albumin 2.3 GM/DL Phenytoin (Dilantin) Level 11.0 MCG/ML 11.0 MCG/ML 10.4 MCG/ML Potassium Level 3.0 MEQ/L Phosphorus Level 2.9 MG/DL Magnesium Level 1.9 MG/DL (Brennon White) Medical Decision Making Impression and Plan Impression: 1. Traumatic brain injury 2. Respiratory failure, improved 3. Seizures 4. Jane UTI, resolved 5. Occlusive DVT to right cephalic & basilic veins 6. Leukocytosis 7. Sacral decubitus 8. Atrial fibrillation 9. Hypertension 10. Diabetes Patient maintaining airway, less lethargic today and did follow some commands. CT brain with continued evolution of intraparenchymal haemorrhages and decrease in the subdurals. CT brain demonstrates evolving haemorrhages. MRI brain demonstrates intraparenchymal & extra-axial haemorrhages w/ edema stable when compared to CT. 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 Plan: Medical management per Hospitalist. Remains on insulin sliding scale. Remains on metoprolol. Remains on Keppra and Dilantin. Continue decubitus precautions and wound care w/Santyl. Continue neuro checks. Haematology for leukocytosis work-up. Ulcer prophylaxis. Appreciate Hospitalist's input and assistance. Arrangements being made to transfer patient back to [facility]. (Brennon White) Attending Statement I have personally seen and examined the patient on the date of this note. Pertinent documentation and study results have been reviewed by the undersigned. I have personally developed the treatment plan and performed medical decision making. Agree with findings, exam, and treatment plan as noted above. Examination on 12/16/16 reveals relatively stable overall neurologic function. Continues to attempt to vocalize Seems to occasionally move his left upper and lower extremity to command today Spontaneous purposeful movements of her extremities Continuing Dilantin and Keppra for seizures Respiratory treatments as needed Sacral decubitus care Continue therapies Family continues to try to arrange transfer back to [facility]. (Tony Godfrey MD) Brennon White Dec 16, 2016 15:23 Tony Godfrey MD Dec 17, 2016 20:00
[2016-12-16] MEDS: TAMSULOSIN HCL 0.4 MG CAP PO SCH (21:28)
[2016-12-17 00:41] VITALS: BP 154/78; PULSE 98; RESP 24; TEMP 99.2; O2SAT 98
[2016-12-17] MEDS: levETIRAcetam 500 MG TAB PO SCH ×3 (05:38→20:28)
[2016-12-17] MEDS: METOPROLOL TARTRATE 25 MG TAB PO SCH ×3 (05:38→20:28)
[2016-12-17 05:40] VITALS: BP 140/76; PULSE 96; RESP 20; TEMP 97; O2SAT 96
[2016-12-17 08:00] VITALS: BP 165/87; PULSE 93; RESP 18; TEMP 97.9; O2SAT 97
[2016-12-17] MEDS: CHLORHEXIDINE 0.12% (ORAL KIT) 15 ML CUP MT SCH ×2 (08:00→20:00)
[2016-12-17] MEDS: INSULIN NovoLIN REGULAR SUPPLEMENTAL SCALE SQ SCH ×4 (08:10→20:47)
[2016-12-17] MEDS: ARTIFICIAL TEARS OPTH SOLN 15 ML BTL EACH EYE SCH ×3 (08:13→17:31)
[2016-12-17] MEDS: COLLAGENASE OINT 30 GM TUBE TOPICAL SCH (08:15)
[2016-12-17] MEDS: MUPIROCIN 2% CREAM 15 GM TOPICAL SCH ×2 (08:15→20:28)
[2016-12-17] MEDS: FUROSEMIDE 40 MG/4 ML VIAL IV PUSH SCH (08:15)
[2016-12-17] MEDS: SODIUM CHLORIDE 0.9% FLUSH 10 ML FLUSH IVF SCH (08:17)
[2016-12-17] MEDS: SODIUM CHLORIDE 0.9% FLUSH 10 ML FLUSH IV FLUSH SCH ×2 (08:17→20:27)
[2016-12-17] MEDS: TOLTERODINE TARTRATE 2 MG CAP LA PO SCH (08:18)
[2016-12-17] MEDS: DOCUSATE SODIUM 100 MG/10 ML UDC PO SCH ×2 (08:18→20:27)
[2016-12-17] MEDS: POLYETHYLENE GLYCOL 17 GM PKG OG-TUBE SCH ×2 (08:18→20:27)
[2016-12-17] MEDS: PHENYTOIN SODIUM 100 MG CAP PO SCH ×3 (08:18→17:31)
[2016-12-17] MEDS: FINASTERIDE 5 MG TAB PO SCH (08:18)
[2016-12-17] MEDS: FLUCONAZOLE 100 MG TAB PO SCH (08:18)
[2016-12-17] MEDS: MEGESTROL ACETATE SUSP 400 MG/10 ML CUP PO SCH (08:18)
[2016-12-17] MEDS: LANSOPRAZOLE SOLUTAB 30 MG TAB NG SCH (08:18)
--- NOTE | 2016-12-17 09:24 | HHI.PR ---
Subjective Remarks Follow up visit SDH, UE DVT, HTN, DM2. Patient seen and examined today. Patient is laying in bed. Continues to be drowsy and lethargic. Grimaces to pain. Occasional cough noted. As per nursing, no acute issues overnight. Patient was out of bed yesterday for about 2 hours with physical therapy. Appears comfortable. 12/16: Stable in his bedroom, in sitting position and sometimes seen in chair. continue confused. no nausea, vomit or diarrhea his Daughter by his side. 12/17: Seen in his bedroom in the presence of His Daughter and Daughter, they asked me about his father and consulted to Palliative care consult placed but they want to continue Aggressive management at this time. No nausea, vomit or diarrhea. Objective Vital Signs Date Time Temp Pulse Resp B/P (MAP) Pulse Ox O2 Delivery O2 Flow Rate FiO2 12/17/16 08:00 97.9 93 18 165/87 (113) 97 12/17/16 05:40 97.0 96 20 140/76 (97) 96 12/17/16 00:41 99.2 98 24 154/78 (103) 98 12/16/16 22:32 98 12/16/16 21:25 97.7 93 20 158/75 (102) 98 12/16/16 16:24 97.4 87 17 144/78 (100) 96 12/16/16 13:21 97.2 115 18 121/78 (92) 96 I/O 12/16/16 12/16/16 12/16/16 12/17/16 12/17/16 12/17/16 07:00 15:00 23:00 07:00 15:00 23:00 Intake Total 240 ml Output Total 600 ml 550 ml 500 ml Balance -600 ml -310 ml -500 ml Intake Oral 240 ml Output Urine Total 600 ml 550 ml 500 ml Bladder Scan Volume Amount 517 ml 244 ml 260 ml 517 ml 315 ml Result Diagram: 12/15/16 0739 Imaging Last Impressions Brain MRI 12/13/16 0000 Signed Impressions: Service Date/Time: Tuesday, December 13, 2016 12:20 - CONCLUSION: 1. The examination demonstrates multiple small areas of intraparenchymal and extra-axial hemorrhage as described above. These areas are more apparent on the patient's MRI examination than on the CT. Direct comparison is made. The areas of edema and hemorrhage appear similar though they are isointense on the CT. 2. 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 There is cortical atrophy. Anthony Burns MD Chest X-Ray 12/04/16 0000 Signed Impressions: Service Date/Time: November 11:58 - CONCLUSION: Improving aeration. Lonnie Blanchard MD Upper Extremity Ultrasound 12/02/16 0000 Signed Impressions: Service Date/Time: Saturday, December 03, 2016 00:53 - CONCLUSION: 1. Occlusive DVT in the cephalic and basilic vein on the right. Alex Goode MD Head CT 12/01/16 0000 Signed Impressions: Service Date/Time: Thursday, December 01, 2016 13:14 - CONCLUSION: Evolving intracranial hemorrhagic foci as above, both intra-axial and extra-axial. Jesus Lee MD Modified Barium Swallow 11/30/16 0000 Signed Impressions: Service Date/Time: Wednesday, November 30, 2016 00:00 - CONCLUSION: Please refer to speech pathology report for full details. Lonnie Cook MD Transcranial Doppler Study Complete 11/17/16 0000 Signed Impressions: Service Date/Time: Thursday, November 17, 2016 10:03 - CONCLUSION: 1. Nondiagnostic examination due to poor transcranial windows. Konstantin Dash MD Abdomen X-Ray 11/12/16 0000 Signed Impressions: Service Date/Time: Saturday, November 12, 2016 08:23 - CONCLUSION: 1. Gastric tube in good position. 2. Probable right renal stones. Narayan Coulter MD Cervical Spine CT 11/09/161950 Signed Impressions: Service Date/Time: Wednesday, November 09, 2016 20:14 - CONCLUSION: Negative trauma CT. Cj Isidro MD Procedures None Other Results Laboratory Tests Test 11/09/16 20:05 11/10/16 02:50 11/11/16 04:58 11/12/16 09:12 Hemoglobin A1c 6.0 % Nasal Screen MRSA (PCR) MRSA NOT DETECTED Myelocytes 1 % Fibrinogen 432 mg/dL Test 11/15/16 18:19 11/17/16 06:05 11/18/16 14:21 11/19/16 10:20 Serum Osmolality 327 MOSM/KG Blood Gas Ventilator Setting PRVC / AC / Plasma Cells % Thyroid Stimulating Hormone 3rd Gen 1.040 uIU/ML Test 11/21/16 09:15 11/21/16 09:32 11/21/16 14:30 11/22/16 06:11 Blood Gas Liter Flow 15 L/M Lactic Acid Level 1.5 mmol/L Protein Corrected Calcium 8.3 MG/DL Troponin I 0.08 NG/ML D-Dimer Quantitative (PE/DVT) 24.65 MG/L FEU Nucleated Red Blood Cells 1 /100 WBC Toxic Granulation 1+ Hematology Comments B-Type Natriuretic Peptide 388 PG/ML Test 11/24/16 07:39 11/26/16 10:42 12/01/16 14:49 12/01/16 21:30 Basophilic Stippling FAINT Acanthocytes OCC Random Vancomycin Level 15.5 COMMENT Blood Urea Nitrogen 18 MG/DL Creatinine 0.53 MG/DL Random Glucose 142 MG/DL Total Protein 5.4 GM/DL Albumin 1.5 GM/DL Calcium Level 7.7 MG/DL Phosphorus Level 2.5 MG/DL Magnesium Level 1.9 MG/DL Alkaline Phosphatase 140 U/L Aspartate Amino Transf (AST/SGOT) 29 U/L Alanine Aminotransferase (ALT/SGPT) 15 U/L Total Bilirubin 2.5 MG/DL Sodium Level 143 MEQ/L Potassium Level 3.2 MEQ/L Chloride Level 110 MEQ/L Carbon Dioxide Level 25.6 MEQ/L Prealbumin 6 MG/DL Blastocytes 1 % Keratocytes OCC Urine Amorphous Sediment RARE Urine Yeast (Budding) MANY Test 12/03/16 17:50 12/03/16 21:51 12/04/16 09:15 12/05/16 07:03 Haptoglobin 87 MG/DL Iron Level 41 MCG/DL Total Iron Binding Capacity 161 MCG/DL Percent Iron Saturation 25.5 % Ferritin 399 NG/ML Lactate Dehydrogenase 284 U/L Vitamin B12 Level 1653 PG/ML Atypical Lymphocytes % Blood Smear Pathologist Review Reticulocyte Count 2.5 % Absolute Reticulocyte Count 89.1 MIL/L Prothrombin Time 11.9 SEC Prothromb Time International Ratio 1.1 RATIO Activated Partial Thromboplast Time 32.0 SEC T-Cell Gene Rearrangement (PCR) Folate 11.7 NG/ML Immunophenotypic Analysis (T) Eosinophils % 1 % Smudge Cells PRESENT Ovalocytes 1+ Test 12/09/16 16:45 10/5/17 13:31 12/11/16 15:20 12/12/16 07:13 Vancomycin Level Trough 15.8 MCG/ML Ammonia 15 MCMOL/L Blood Gas Puncture Site RT RADIAL Blood Gas Patient Temperature 98.6 Blood Gas HCO3 29 mmol/L Blood Gas Base Excess 5.3 mmol/L Blood Gas Oxygen Saturation 92 % Arterial Blood pH 7.52 Arterial Blood Partial Pressure CO2 35 mmHg Arterial Blood Partial Pressure O2 68 mmHg Arterial Blood Oxygen Content 12.6 Vol % Arterial Blood Carboxyhemoglobin 2.0 % Arterial Blood Methemoglobin 0.6 % Blood Gas Hemoglobin 9.7 G/DL Oxygen Delivery Device RA Blood Gas Inspired Oxygen 21 % White Blood Count 11.9 TH/MM3 Red Blood Count 3.38 MIL/MM3 Hemoglobin 10.0 GM/DL Hematocrit 29.7 % Mean Corpuscular Volume 87.8 FL Mean Corpuscular Hemoglobin 29.4 PG Mean Corpuscular Hemoglobin Concent 33.5 % Red Cell Distribution Width 18.4 % Platelet Count 417 TH/MM3 Mean Platelet Volume 7.3 FL Neutrophils (%) (Auto) 25.0 % Lymphocytes (%) (Auto) 63.6 % Monocytes (%) (Auto) 9.4 % Eosinophils (%) (Auto) 1.6 % Basophils (%) (Auto) 0.4 % Neutrophils # (Auto) 3.0 TH/MM3 Lymphocytes # (Auto) 7.6 TH/MM3 Monocytes # (Auto) 1.1 TH/MM3 Eosinophils # (Auto) 0.2 TH/MM3 Basophils # (Auto) 0.0 TH/MM3 CBC Comment AUTO DIFF Differential Total Cells Counted 100 Neutrophils % (Manual) 39 % Band Neutrophils % 1 % Lymphocytes % 46 % Monocytes % 9 % Basophils % 3 % Neutrophils # (Manual) 5.0 TH/MM3 Metamyelocytes 2 % Differential Comment FINAL DIFF MANUAL Platelet Estimate NORMAL Platelet Morphology Comment NORMAL Red Cell Morphology Comment NORMAL Test 12/13/16 06:00 12/13/16 14:46 12/14/16 08:10 12/14/16 13:50 Blood Urea Nitrogen 23 MG/DL Creatinine 0.72 MG/DL Random Glucose 202 MG/DL Calcium Level 9.2 MG/DL Sodium Level 135 MEQ/L Potassium Level 4.7 MEQ/L Chloride Level 104 MEQ/L Carbon Dioxide Level 23.2 MEQ/L Anion Gap 8 MEQ/L Estimat Glomerular Filtration Rate 105 ML/MIN Urine Color YELLOW Urine Turbidity HAZY Urine pH 6.0 Urine Specific Cooper 1.018 Urine Protein 30 mg/dL Urine Glucose (UA) NEG mg/dL Urine Ketones NEG mg/dL Urine Occult Blood MOD Urine Nitrite NEG Urine Bilirubin NEG Urine Urobilinogen 4.0 MG/DL Urine Leukocyte Esterase MOD Urine RBC 53 /hpf Urine WBC 36 /hpf Urine WBC Clumps RARE Urine Squamous Epithelial Cells <1 /hpf Urine Calcium Oxalate Crystals OCC /hpf Urine Bacteria MOD /hpf Urine Hyaline Casts 7 /lpf Urine Mucus FEW /lpf Microscopic Urinalysis Comment CATH-CULTURE IND Albumin 2.3 GM/DL Test 12/15/16 07:39 12/16/16 09:15 Potassium Level 3.0 MEQ/L Phosphorus Level 2.9 MG/DL Magnesium Level 1.9 MG/DL Phenytoin (Dilantin) Level 10.4 MCG/ML Objective Remarks GENERAL: Well-developed patient, in no apparent distress. SKIN: Warm and dry. HEENT: Nose without bleeding. Airway patent. NECK: Trachea midline. Supple. CARDIOVASCULAR: Heart rate irregular, rate wnl without murmurs, gallops, or rubs. RESPIRATORY: Coarse breath sounds BUL. No wheezes, rales, or rhonchi. GASTROINTESTINAL: Abdomen soft, non-tender, nondistended. Bowel Sounds normoactive x4. MUSCULOSKELETAL: Extremities without clubbing, cyanosis, bilateral lower extremity trace edema. NEUROLOGICAL: Drowsy. Moves all extremities weak, confused. Medications and IVs Current Medications Medications (Trade) Dose Ordered Sig/Gregg Route Start Time Stop Time Status Last Admin (Proscar) 5 mg DAILY PO 11/10/16 09:00 12/17/16 08:18 (Flomax) 0.4 mg HS PO 11/10/16 21:00 12/16/16 21:28 (Detrol La) 2 mg DAILY PO 11/10/16 09:00 12/17/16 08:18 (Glucagon Inj) 1 mg UNSCH PRN OTHER 11/09/16 23:45 11/24/16 03:48 (Ativan Inj) 1 mg Q5M PRN IV 11/12/16 00:45 11/12/16 01:45 (Peridex 0.12% Liq) 15 ml BID@08,20 MT 11/12/16 08:00 12/15/16 20:00 (NS Flush) DAILY IVF 11/12/16 09:00 11/28/16 09:22 (NS Flush) UNSCH PRN IVF 11/12/16 08:15 (Prevacid Odt) 30 mg DAILY NG 11/12/16 09:00 12/17/16 08:18 (Colace Liq) 100 mg Q12HR PO 11/12/16 09:00 12/17/16 08:18 (NS Flush) 2 ml UNSCH PRN IV FLUSH 11/12/16 08:30 (NS Flush) 2 ml BID IV FLUSH 11/12/16 09:00 12/17/16 08:17 (Tears Naturale Opth Soln) 1 drop TID EACH EYE 11/12/16 09:00 12/17/16 08:13 (Zofran Inj) 4 mg Q6H PRN IV 11/12/16 08:30 11/15/16 05:45 (Albuterol Neb) 2.5 mg Q2HR NEB PRN INH 11/12/16 08:30 11/29/16 21:19 (Dulcolax Supp) 10 mg DAILY PRN RECTAL 11/12/16 08:30 (Tylenol 650 Mg/ 20 ml Liq) 650 mg Q6H PRN NG 11/12/16 08:45 12/07/16 19:35 Levetriacetam 100 ml @ 400 mls/hr Q8HR IV 11/12/16 22:00 Future Hold 11/30/16 05:35 (Miralax) 17 gm BID OG-TUBE 11/13/16 21:00 12/13/16 20:39 (Lactulose Liq) 30 ml DAILY PO 11/14/16 09:00 Future Hold 12/02/16 09:54 (Glycerin Adult Supp) 2 gm BID PRN RECTAL 11/13/16 15:00 (Apresoline Inj) 20 mg Q4H PRN IV PUSH 11/14/16 02:15 11/14/16 03:07 Fosphenytoin Sodium 100 mgpe/ Sodium Chloride 52 ml @ 208 mls/hr Q6HR IV 11/18/16 13:00 Future Hold 11/30/16 13:10 (Brethine Inj) 1 mg UNSCH PRN SQ 11/20/16 16:30 (Lasix Inj) 40 mg DAILY IV PUSH 11/22/16 11:00 12/17/16 08:15 (D50w (Syr) Inj) 50 ml UNSCH PRN IV 11/25/16 09:30 11/25/16 09:46 (Megace Liq) 400 mg DAILY PO 11/26/16 09:00 12/17/16 08:18 (Keppra) 1,000 mg Q8HR PO 11/30/16 22:00 12/17/16 05:38 (Bactroban 2% Cream) 1 applic Q12HR TOPICAL 12/02/16 21:00 12/17/16 08:15 (Diflucan) 100 mg DAILY PO 12/04/16 09:00 12/17/16 08:18 (Santyl Oint) 1 applic DAILY TOPICAL 12/04/16 12:00 12/17/16 08:15 (Levsin) 0.125 mg Q4H PRN PO 12/04/16 11:30 (Heparin Central Flush) 200 units DAILY IV FLUSH 12/05/16 12:00 (Tylenol 160 Mg/ 5 ml Liq) 650 mg Q4H PRN PO 12/11/16 11:00 12/14/16 02:33 (Lopressor) 25 mg Q8HR PO 12/13/16 00:45 12/17/16 05:38 (Dilantin) 100 mg TID PO 12/14/16 13:00 12/17/16 08:18 (NovoLIN R SUPPLEMENTAL SCALE) 1 ACHS SLIDING SCALE SQ 12/16/16 12:00 12/17/16 08:10 A/P Assessment and Plan 80 y/o with a history of HTN, DM, and BPH presented to the ED after a fall at home, with a LOC for 10-15 mins. Closed head injury Subdural hematoma Bilateral intracranial hemorrhaging - Managed by neurosurgery and no indication for surgery. - Neuro checks, seizure precautions - Keppra and Cerebyx on hold. Metabolic encephalopathy-improving - head CT 12/01/16 showed Bilateral hypodense subdural hematomas are seen in the occipital region and along the tentorium cerebelli on the right as well as small right frontal subdural hematoma unchanged. The left frontal parenchymal bleed is decreased in density with a small amount of edema identified. There is atrophy and moderate confluent hypodense white matter disease in the periventricular regions. The right frontal and left insular bleeds are much less conspicuous with a small amount of residual high density in the right frontal region with a small amount of surrounding edema. There is no midline shift or mass effect. Vascular calcifications are noted. No fractures. Anemia - WBC 15.2 -->13.4 --> 16.4 --> 13.0 - Hematology following. Ordered other testing R/O other bone marrow abnormality. Follow results. - Blood cultures no growth in 5 days. DC Vanco as planned. - Continue to trend WBC. 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 Atrial fibrillation Hypertension - Continue with Lopressor 25mg BID, increase to TID for better rate control and BP control - Oral anticoagulation contraindicated secondary to intracranial bleed - Monitor BP Trend, HR Decubitus ulcer, DTI sacral area - Continue Santyl - Wound care following. Recommends mable thick coverage of Santyl ointment. 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 Diabetes mellitus - hemoglobin A1c 6.0 - ISS. Uncontrolled blood sugars and started on long lasting insulin low dose. Occlusive DVT in cephalic vein right upper extremity - Hematology consultation appreciated however oral anticoagulation contraindicated - Avoid IV access RUE Urinary tract infection - off Azactam 1 g IV every 12H - on Diflucan 100 mg by mouth daily 12/03/16 secondary to been culture positive for Jane Generalized weakness, prolonged hospitalization - Attempts by PT unsuccessful because he is drowsy in AM. Waking hours at night, improving Prophylaxis GI - lanosprazole DVT - SCD/pharmacological prophylaxis when okay with neurosurgery No changes to anterior assessment. Discharge Planning 12/12/16- Pt only qualifies for emergency medicaid, no placement possible at this time. [facility] declined. Unable to proceed with discharge planning at this time. Kameron Mcfarland MD Dec 17, 2016 09:24
[2016-12-17 10:30] LABS: AUTOMATED NEUTROPHIL # 3.1 TH/MM3 (1.8-7.7); BASOPHIL # 0.1 TH/MM3 (0-0.2); BASOPHIL % 0.5 % (0.0-2.0); EOSINOPHIL # 0.2 TH/MM3 (0-0.4); HEMATOCRIT 36.2 % (39.0-51.0); LYMPH % 72.6 % (9.0-44.0); LYMPHOCYTE # 12.2 TH/MM3 (1.0-4.8); MEAN CORPUSCULAR HEMOGLOBIN 29.1 PG (27.0-34.0); MEAN CORPUSCULAR HGB CONC 32.7 % (32.0-36.0); MONO % 7.7 % (0.0-8.0); NEUT % 18.2 % (16.0-70.0); PLATELET COUNT 532 TH/MM3 (150-450); RED BLOOD COUNT 4.07 MIL/MM3 (4.50-5.90); RED CELL DISTRIBUTION WIDTH 18.8 % (11.6-17.2); WHITE BLOOD COUNT 16.8 TH/MM3 (4.0-11.0)
[2016-12-17 10:32] LABS: HEMO FLAGS AUTO DIFF
[2016-12-17 11:07] LABS: BASOPHILS 1 % (0-2); EOSINOPHILS 1 % (0-4); METAMYELOCYTES 1 % (0-1); MYELOCYTES 1 % (0-0); NEUTROPHIL # MANUAL DIFF 7.4 TH/MM3 (1.8-7.7); POLYS (SEG NEUTROPHILS) 42 % (16-70); WBC DIFF SAMPLE 100
[2016-12-17 11:08] LABS: PLATELET ESTIMATE SMEAR HIGH (NORMAL); PLATELET MORPHOLOGY NORMAL (NORMAL); SCAN/DIFF FINAL DIFF MANUAL
[2016-12-17 11:13] LABS: BICARBONATE 23.9 MEQ/L (21.0-32.0); POTASSIUM 4.3 MEQ/L (3.5-5.1)
[2016-12-17 12:00] VITALS: BP 144/84; PULSE 116; RESP 18; TEMP 97.4; O2SAT 97
--- NOTE | 2016-12-17 12:31 | PD.CONS ---
Consult Service Palliative Care . Consult Requested By Dr. Morillo . Primary Care Physician No Primary Care Physician . Reason for Consultation a. To assist with evaluation and management of symptoms including: Encephalopathy, debility, dysphasia b. To assist medical decision maker(s) with: better understanding of current medical conditions; weighing benefits/burdens of medical treatment options; making medical treatment decisions. . HPI History of Present Illness Mr. 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 He presented to [facility] ED on 2016 via EMS from his home after a witnessed fall with loss of consciousness. Per EMS report, the patient was observed by his grandson walking into the house when he missed the front step falling backward onto the concrete walkway and hitting his head. He experienced loss of consciousness and vomiting followed by general lethargy. Upon arrival to the ED, the patient was oriented to person and place. Complaining of persistent nausea and dizziness. Family verbalized concern that patient had experienced increased dizziness and balance disturbances from baseline 2 weeks. Patient was hypertensive with a systolic blood pressure was >160 in the ED; nicardipine was ordered. = Chest x-ray showed streaky interstitial opacities in both lung; also clearly representing scarring and/or fibrosis. Pulmonary edema less likely. = CT of the cervical spine was negative = CT of the head revealed a small to moderate size subdural hematoma along the right temporal and parietal lobes. There were multiple areas of high density intraparenchymal versus subarachnoid hemorrhage. Neurosurgery was consulted, no indication for surgery. Follow-up CT on 11/10/2016 showed evolving and generally increased right > left subdural, parenchymal and subarachnoid blood. No midline shift. Stat EEG revealed generalized seizure activity. Cerebyx increased to 100 mg IV every 6 hours and Keppra increased to 1000 mg every 8 hours. 11/12/16: Patient unresponsive, subsequently intubated. Imaging continues to reveal evolving bifrontal contusions, subdural and subarachnoid hemorrhage. Patient remained intubated for approximately 1 week before being extubated on 11/19/2016; swallow evaluation completed with recommendations for thickened liquids. 11/21/2016: CT of the brain showing no significant interval change. Multifocal brain contusions are grossly stable. Predominantly hygromas subdural fluid is again seen layering over the right convexity with some high density subdural fluid along the tentorium asymmetric to the right. The ventricles are stable. There is slight leftward subfalcine deviation which is unchanged. The basal cisterns remain patent. No new areas of hemorrhage were identified. Follow-up chest x-ray with continued basilar effusions and diffuse interstitial prominence suggesting congestive failure. Continued consolidation at the left lung base. Cultures from 11/18/16 growing multiple bacteria in the aerobic bottle. 12/03/2016: Hematology was consulted for evaluation and management of a blood clot. Patient developed right arm swelling, and ultrasound done on 11/30/16 revealed a superficial venous thrombosis in the left cephalic vein extending from the proximal arm to the wrist a repeat ultrasound on 12/02/16 showed an occlusive DVT in the cephalic and basilic vein on the right. His persistent benefits of anticoagulation were discussed with the family who felt the risk of anticoagulation vastly outweighed the benefits. 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 Awaiting results of TCR gene rearrangement studies from pathology. 12/13/2016 MRI of the brain demonstrated multiple areas of intraparenchymal and extra-axial hemorrhages. These areas are more apparent on the patient's MRI examination on the CT. The areas of edema and hemorrhage appears similar though they are isointense on the CT. 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 There is cortical atrophy. Per case management note, patient qualifies for emergency Medicaid only therefore placement is not possible at this time.Family indicating they would like to arrange for the patient to return to [facility] upon discharge. Palliative Care was consulted to assist with symptom management and to discuss with the family the benefits and burdens of his current illnesses and the options regarding future care. . Function/Cognitive Trajectory Patient was active prior to this hospitalization traveling every year to the [place] to visit his son/family and spending a month in [place]. Family reports the patient had experienced increased dizziness and balance disturbances from baseline for 2 weeks prior to his fall and subsequent brain injury. . Review of Systems ROS Limitations: Altered Mental Status, Speech Impaired, Poor Historian Constitutional: COMPLAINS OF: Weight loss (approximate weight loss of 60 lbs. 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 CAD . Past Surgical History Cardiac catheterization Lesion removed from neck . Reported Medications Vesicare (Solifenacin) 5 Mg Tab 5 Mg PO DAILY Tamsulosin (Tamsulosin HCl) 0.4 Mg Cap 0.4 Mg PO HS [stugeron] 25 Mg PO DAILY [urilax] 10 Mg PO DAILY Amaryl (Glimepiride) 1 Mg Tab 1 Mg PO DAILY Take with breakfast or first main meal Proscar (Finasteride) 5 Mg Tab 5 Mg PO DAILY Do not crush. Bisoprolol (Bisoprolol Fumarate) 5 Mg Tab 5 Mg PO DAILY . Current Medications Medications (Trade) Dose Ordered Sig/Gregg Route Start Time Stop Time Status Last Admin (Proscar) 5 mg DAILY PO 11/10/16 09:00 12/17/16 08:18 (Flomax) 0.4 mg HS PO 11/10/16 21:00 12/16/16 21:28 (Detrol La) 2 mg DAILY PO 11/10/16 09:00 12/17/16 08:18 (Glucagon Inj) 1 mg UNSCH PRN OTHER 11/09/16 23:45 11/24/16 03:48 (Ativan Inj) 1 mg Q5M PRN IV 11/12/16 00:45 11/12/16 01:45 (Peridex 0.12% Liq) 15 ml BID@08,20 MT 11/12/16 08:00 12/15/16 20:00 (NS Flush) DAILY IVF 11/12/16 09:00 11/28/16 09:22 (NS Flush) UNSCH PRN IVF 11/12/16 08:15 (Prevacid Odt) 30 mg DAILY NG 11/12/16 09:00 12/17/16 08:18 (Colace Liq) 100 mg Q12HR PO 11/12/16 09:00 12/17/16 08:18 (NS Flush) 2 ml UNSCH PRN IV FLUSH 11/12/16 08:30 (NS Flush) 2 ml BID IV FLUSH 11/12/16 09:00 12/17/16 08:17 (Tears Naturale Opth Soln) 1 drop TID EACH EYE 11/12/16 09:00 12/17/16 08:13 (Zofran Inj) 4 mg Q6H PRN IV 11/12/16 08:30 11/15/16 05:45 (Albuterol Neb) 2.5 mg Q2HR NEB PRN INH 11/12/16 08:30 11/29/16 21:19 (Dulcolax Supp) 10 mg DAILY PRN RECTAL 11/12/16 08:30 (Tylenol 650 Mg/ 20 ml Liq) 650 mg Q6H PRN NG 11/12/16 08:45 12/07/16 19:35 Levetriacetam 100 ml @ 400 mls/hr Q8HR IV 11/12/16 22:00 Future Hold 11/30/16 05:35 (Miralax) 17 gm BID OG-TUBE 11/13/16 21:00 12/13/16 20:39 (Lactulose Liq) 30 ml DAILY PO 11/14/16 09:00 Future Hold 12/02/16 09:54 (Glycerin Adult Supp) 2 gm BID PRN RECTAL 11/13/16 15:00 (Apresoline Inj) 20 mg Q4H PRN IV PUSH 11/14/16 02:15 11/14/16 03:07 Fosphenytoin Sodium 100 mgpe/ Sodium Chloride 52 ml @ 208 mls/hr Q6HR IV 11/18/16 13:00 Future Hold 11/30/16 13:10 (Brethine Inj) 1 mg UNSCH PRN SQ 11/20/16 16:30 (Lasix Inj) 40 mg DAILY IV PUSH 11/22/16 11:00 12/17/16 08:15 (D50w (Syr) Inj) 50 ml UNSCH PRN IV 11/25/16 09:30 11/25/16 09:46 (Megace Liq) 400 mg DAILY PO 11/26/16 09:00 12/17/16 08:18 (Keppra) 1,000 mg Q8HR PO 11/30/16 22:00 12/17/16 05:38 (Bactroban 2% Cream) 1 applic Q12HR TOPICAL 12/02/16 21:00 12/17/16 08:15 (Diflucan) 100 mg DAILY PO 12/04/16 09:00 12/17/16 08:18 (Santyl Oint) 1 applic DAILY TOPICAL 12/04/16 12:00 12/17/16 08:15 (Levsin) 0.125 mg Q4H PRN PO 12/04/16 11:30 (Heparin Central Flush) 200 units DAILY IV FLUSH 12/05/16 12:00 (Tylenol 160 Mg/ 5 ml Liq) 650 mg Q4H PRN PO 12/11/16 11:00 12/14/16 02:33 (Lopressor) 25 mg Q8HR PO 12/13/16 00:45 12/17/16 05:38 (Dilantin) 100 mg TID PO 12/14/16 13:00 12/17/16 08:18 (NovoLIN R SUPPLEMENTAL SCALE) 1 ACHS SLIDING SCALE SQ 12/16/16 12:00 12/17/16 08:10 (Norvasc) 5 mg DAILY PO 12/17/16 12:00 (Levemir Inj) 5 units Q12H SQ 12/17/16 12:00 . Family History Pulmonary disease in parents. . Substance Use Tobacco: Remote history tobacco use Alcohol: Patient does not consume alcohol Prescription med abuse: None known Illicits: None known . Psychosocial History Patient was born in [place] [facility]. His preferred pain which is Lithuanian. He has been to his (Marlene) for approximately 60 years. Together they have 4 children (2 boys and 2 girls) and 14 grandchildren. 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 He loves to travel and visits his son in the [place] yearly; he also spends time in each at every year. . Spiritual/Cultural Factors Bahai . Living Will: Never completed Health Care Surrogate: Never completed Durable Power of Psychiatric Nursing Aide: Never completed Documented care wishes: No known documented care wishes are available. . Today's verbally stated goals: Patient is unable to participate in establishment of medical treatment goals secondary to his current clinical condition. . Family/friends goals: Family is working to coordinate patient's transfer from [facility] in [place] to a [facility] in [facility]. The medical team is aware. . Ethical and Legal Issues Per [place] statutes, in the absence of written advanced directives healthcare proxy decision making would fall to the patient's . However, the patient's family is making decisions together and have mutually agreed on aggressive goals at this time. Physical Exam Vital Signs Date Time Temp Pulse Resp B/P (MAP) Pulse Ox O2 Delivery O2 Flow Rate FiO2 12/17/16 08:00 97.9 93 18 165/87 (113) 97 12/17/16 05:40 97.0 96 20 140/76 (97) 96 12/17/16 00:41 99.2 98 24 154/78 (103) 98 12/16/16 22:32 98 12/16/16 21:25 97.7 93 20 158/75 (102) 98 12/16/16 16:24 97.4 87 17 144/78 (100) 96 12/16/16 13:21 97.2 115 18 121/78 (92) 96 12/17/16 12/18/16 19:00 07:00 Output Total 475 ml Balance -475 ml Output Urine Total 475 ml Exam CONSTITUTIONAL/GENERAL: This is an elderly, frail man who is restless in a recliner chair. TUBES/LINES/DRAINS:PIV, Noriega catheter SKIN: No jaundice, rashes, or lesions. Ecchymoses to all 4 extremities. No wounds seen anteriorly. Skin temperature appropriate. Not diaphoretic. HEAD: Atraumatic. Normocephalic. EYES: Pupils equal and round and reactive. Extraocular motions intact. No scleral icterus. No injection or drainage. Fundi not examined. ENT: Hard of hearing . Nose without bleeding or purulent drainage. Moist oral mucosa. NECK: Trachea midline. Supple, nontender. CARDIOVASCULAR: Regular rate and rhythm without murmurs, gallops, or rubs. No JVD. Peripheral pulses symmetric. RESPIRATORY/CHEST: Symmetric, unlabored respirations. Clear to auscultation. Breath sounds equal bilaterally. No wheezes, rales, or rhonchi. GASTROINTESTINAL: Abdomen soft, non-tender, nondistended. No guarding. Bowel sounds present. GENITOURINARY: Without palpable bladder distension. Noriega catheter in place. MUSCULOSKELETAL: Extremities without clubbing, cyanosis. 2 +edema to BLE. No mottling or clubbing. NEUROLOGICAL: Awake and lethargic. Motor and sensory grossly within normal limits. Tends to lean to the left. Follows simple commands. Moves all extremities. PSYCHIATRIC: No obvious anxiety/depression. no apparent hallucinations or other psychotic thought process. Restless in chair. . Diagnostic Tests Laboratory Laboratory Tests Test 12/14/16 13:50 12/15/16 07:39 12/16/16 09:15 12/17/16 08:35 Potassium Level 3.0 MEQ/L (3.5-5.1) 4.3 MEQ/L (3.5-5.1) Phosphorus Level 2.9 MG/DL (2.5-4.9) Magnesium Level 1.9 MG/DL (1.5-2.5) Phenytoin (Dilantin) Level 11.0 MCG/ML (10.0-20.0) 10.4 MCG/ML (10.0-20.0) 11.4 MCG/ML (10.0-20.0) White Blood Count 16.8 TH/MM3 (4.0-11.0) Red Blood Count 4.07 MIL/MM3 (4.50-5.90) Hemoglobin 11.9 GM/DL (13.0-17.0) Hematocrit 36.2 % (39.0-51.0) Mean Corpuscular Volume 89.0 FL (80.0-100.0) Mean Corpuscular Hemoglobin 29.1 PG (27.0-34.0) Mean Corpuscular Hemoglobin Concent 32.7 % (32.0-36.0) Red Cell Distribution Width 18.8 % (11.6-17.2) Platelet Count 532 TH/MM3 (150-450) Mean Platelet Volume 7.2 FL (7.0-11.0) Neutrophils (%) (Auto) 18.2 % (16.0-70.0) Lymphocytes (%) (Auto) 72.6 % (9.0-44.0) Monocytes (%) (Auto) 7.7 % (0.0-8.0) Eosinophils (%) (Auto) 1.0 % (0.0-4.0) Basophils (%) (Auto) 0.5 % (0.0-2.0) Neutrophils # (Auto) 3.1 TH/MM3 (1.8-7.7) Lymphocytes # (Auto) 12.2 TH/MM3 (1.0-4.8) Monocytes # (Auto) 1.3 TH/MM3 (0-0.9) Eosinophils # (Auto) 0.2 TH/MM3 (0-0.4) Basophils # (Auto) 0.1 TH/MM3 (0-0.2) CBC Comment AUTO DIFF Differential Total Cells Counted 100 Neutrophils % (Manual) 42 % (16-70) Lymphocytes % 34 % (9-44) Monocytes % 20 % (0-8) Eosinophils % 1 % (0-4) Basophils % 1 % (0-2) Neutrophils # (Manual) 7.4 TH/MM3 (1.8-7.7) Metamyelocytes 1 % (0-1) Myelocytes 1 % (0-0) Differential Comment FINAL DIFF MANUAL Platelet Estimate HIGH (NORMAL) Platelet Morphology Comment NORMAL (NORMAL) Blood Urea Nitrogen 29 MG/DL (7-18) Creatinine 0.59 MG/DL (0.60-1.30) Random Glucose 178 MG/DL (74-106) Calcium Level 10.1 MG/DL (8.5-10.1) Sodium Level 137 MEQ/L (136-145) Chloride Level 103 MEQ/L (98-107) Carbon Dioxide Level 23.9 MEQ/L (21.0-32.0) Anion Gap 10 MEQ/L (5-15) Estimat Glomerular Filtration Rate 131 ML/MIN (>89) Result Diagram: 12/17/16 0835 12/17/16 0835 Procedures 11/12/2016: Right IJ CVL placement 11/12/2016: Intubation : Extubation Patient/Family Conference Present at Family Conference: Met with patient's daughter (Juliane) at bedside and again privately. Also present, [employer] translation program was utilized. . Family Conference Location: Bedside, Consult Room Issues Discussed: * Palliative care role, purpose, approach * Additional medical, psychosocial, and spiritual history * Patients general health, functional status, and cognitive changes in the months leading up to the current hospitalization * Patient/family understanding of the current medical problems * Patient/family understanding of prognosis * Patients goals of care as best understood from advance directives and/or conversations and/or values * Current medical treatment options and benefits/burdens of those options * Likely scenarios comparing ongoing aggressive care with a transition to comfort measures only * Questions answered to the best of my ability * Palliative care contact information provided . Assessment and Plan Disease Oriented Problem List: (1) Sacral decubitus ulcer (2) Atrial fibrillation (3) Subdural hematoma (4) Leukocytosis (5) HTN (hypertension) (6) Urinary tract infection (7) Traumatic brain injury (8) Diabetes (9) Post traumatic seizure Symptom Scale: (1) Debility (2) Encephalopathy (3) Dysphasia Pertinent Non-Medical Issues Psychosocial: Patient was born in [place] [facility]. His preferred pain which is Lithuanian. He has been to his (Marlene) for approximately 60 years. Together they have 4 children (2 boys and 2 girls) and 14 grandchildren. 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 He loves to travel and visits his son in the [place] yearly; he also spends time in each at every year. Spiritual: Bahai Legal: Per [place] statutes, in the absence of written advanced directives healthcare proxy decision making would fall to the patient's . However, the patient's family is making decisions together and have mutually agreed on aggressive goals at this time. Ethical issues impacting care: No known ethical issues impacting care at this time. . Important Contacts Marty Garza: son: [phone] Karen Castro: [id number]: [phone] . Prognosis Patient is a 81-year-old male who sustained a traumatic brain injury after a fall with LOC on 11/09/2016. MRI brain demonstrates intraparenchymal & extra-axial hemorrhages w/edema stable when compared to CT. 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 Patient remains intermittently confused with ongoing neurological deficits. He is on Keppra and Dilantin for generalized seizures that were noted on EEG. Patient's hospitalization has been complicated by bacteremia and UTI. Given the patient's advanced age, complicated hospital course is persistent neurological deficits; he is at risk for ongoing decline and continued complications requiring rehospitalization. . Code Status: Full Code Plan * FULL CODE * Decision-making: Per [place] statutes, in the absence of written advanced directives healthcare proxy decision making would fall to the patient's . However, the patient's family is making decisions together and have mutually agreed on aggressive goals at this time. * AGGRESSIVE GOALS * Per case management note, patient qualifies for emergency Medicaid only therefore placement is not possible at this time.Family indicating they would like to arrange for the patient to return to [facility] upon discharge. The medical team is aware of this plan. * Met with patient's daughter (Juliane) at bedside and again privately. Also present, Axel MACIAS. [employer] translation program was utilized. * Discussed with Dr. Morillo, outsole caser (Mary) and bedside nurse (Chantelle). * Symptom management - encephalopathy: Awake and lethargic, intermittently confused. Responsiveness is variable. Responds to some questions with 1-2 word answers, however Lithuanian is his [place] language. He follows simple commands. Tends to lean to the left. * Symptom management - dysphasia: Patient tolerating pured diet with nectar consistency thickened liquids without any signs or symptoms of aspiration. His intake is poor per family. Speech therapy continues to follow. * Symptom management - debility: Patient was active prior to this hospitalization traveling every year to the [place] to visit his son/ family and spending a month in [place]. Family reports the patient had experienced increased dizziness and balance disturbances from baseline for 2 weeks prior to his fall and subsequent brain injury. Requires Felton lift for transfers from bed to chair. Occupational therapy and physical therapy following. * Palliative care contact information provided to the patient's daughter. * Palliative care will continue to follow this patient throughout his hospitalization to establish trust, assist with symptom management and clarification of medical treatment goals. Thank you for the opportunity to participate in the care of Mr. Garza. . Attestation To help prompt me to consider important information that might be impacting today's encounter and assessment, information from prior notes written by myself or my colleagues may have been "brought forward" into today's note. My signature on this note, however, is an attestation that I personally performed the exam, history, and/or decision-making noted today, and, unless otherwise indicated, the interactions with patient, family, and staff as well as the review of records all occurred today. I also attest that the listed assessment and stated plan reflect my best clinical judgment today based on the combination of historical information, prior notes, and today's exam/ interactions. When time spent is documented, it refers only to time spent today by the signer, or if indicated, combined time spent today by collaborating physician/nurse practitioner. . Hillary Wen Dec 17, 2016 12:31
[2016-12-17] MEDS: amLODIPine BESYLATE 5 MG TAB PO SCH (13:08)
[2016-12-17] MEDS: INSULIN DETEMIR 100 UNITS/ML VIAL SQ SCH ×2 (13:08→23:31)
[2016-12-17 16:00] VITALS: BP 149/77; PULSE 99; RESP 18; TEMP 98.2; O2SAT 97
[2016-12-17] MEDS: TAMSULOSIN HCL 0.4 MG CAP PO SCH (20:28)
[2016-12-17 21:15] VITALS: BP 145/85; PULSE 97; RESP 16; TEMP 98.1; O2SAT 97
[2016-12-18 00:05] VITALS: BP 149/75; PULSE 79; RESP 16; TEMP 97.3; O2SAT 96
[2016-12-18 04:00] VITALS: BP 155/97; PULSE 104; RESP 16; TEMP 97.2; O2SAT 95
[2016-12-18] MEDS: METOPROLOL TARTRATE 25 MG TAB PO SCH ×3 (06:06→21:33)
[2016-12-18] MEDS: levETIRAcetam 500 MG TAB PO SCH ×3 (06:06→21:33)
[2016-12-18 08:00] VITALS: BP 140/87; PULSE 99; RESP 18; TEMP 98.2; O2SAT 98
[2016-12-18] MEDS: INSULIN NovoLIN REGULAR SUPPLEMENTAL SCALE SQ SCH ×4 (08:00→21:00)
[2016-12-18] MEDS: CHLORHEXIDINE 0.12% (ORAL KIT) 15 ML CUP MT SCH ×2 (08:00→20:00)
[2016-12-18] MEDS: FUROSEMIDE 40 MG/4 ML VIAL IV PUSH SCH (09:00)
[2016-12-18] MEDS: ARTIFICIAL TEARS OPTH SOLN 15 ML BTL EACH EYE SCH ×3 (09:00→18:00)
[2016-12-18] MEDS: COLLAGENASE OINT 30 GM TUBE TOPICAL SCH (09:00)
[2016-12-18] MEDS: SODIUM CHLORIDE 0.9% FLUSH 10 ML FLUSH IVF SCH (09:00)
[2016-12-18] MEDS: POLYETHYLENE GLYCOL 17 GM PKG OG-TUBE SCH ×2 (09:00→21:33)
[2016-12-18] MEDS: FLUCONAZOLE 100 MG TAB PO SCH (09:40)
[2016-12-18] MEDS: PHENYTOIN SODIUM 100 MG CAP PO SCH ×3 (09:40→18:26)
[2016-12-18] MEDS: TOLTERODINE TARTRATE 2 MG CAP LA PO SCH (09:40)
[2016-12-18] MEDS: amLODIPine BESYLATE 5 MG TAB PO SCH (09:40)
[2016-12-18] MEDS: LANSOPRAZOLE SOLUTAB 30 MG TAB NG SCH (09:40)
[2016-12-18] MEDS: MEGESTROL ACETATE SUSP 400 MG/10 ML CUP PO SCH (09:40)
[2016-12-18] MEDS: FINASTERIDE 5 MG TAB PO SCH (09:40)
[2016-12-18] MEDS: DOCUSATE SODIUM 100 MG/10 ML UDC PO SCH ×2 (09:42→21:33)
[2016-12-18] MEDS: SODIUM CHLORIDE 0.9% FLUSH 10 ML FLUSH IV FLUSH SCH ×2 (09:44→21:00)
[2016-12-18 12:36] VITALS: BP 110/67; PULSE 102; RESP 18; TEMP 98.1; O2SAT 99
--- NOTE | 2016-12-18 13:29 | HHI.PR ---
Subjective Remarks Follow up visit SDH, UE DVT, HTN, DM2. Patient seen and examined today. Patient is laying in bed. Continues to be drowsy and lethargic. Grimaces to pain. Occasional cough noted. As per nursing, no acute issues overnight. Patient was out of bed yesterday for about 2 hours with physical therapy. Appears comfortable. 12/16: Stable in his bedroom, in sitting position and sometimes seen in chair. continue confused. no nausea, vomit or diarrhea his Daughter by his side. 12/17: Seen in his bedroom in the presence of His Daughter and Daughter, they asked me about his father and consulted to Palliative care consult placed but they want to continue Aggressive management at this time. 12/18: Stable, Lethargic and weak as per her Daughter in the room, Mrs. Cardozo. No Nausea, vomit or diarrhea. Objective Vital Signs Date Time Temp Pulse Resp B/P (MAP) Pulse Ox O2 Delivery O2 Flow Rate FiO2 12/18/16 12:36 98.1 102 18 110/67 (81) 99 12/18/16 08:00 98.2 99 18 140/87 (104) 98 12/18/16 04:00 97.2 104 16 155/97 (116) 95 12/18/16 00:05 97.3 79 16 149/75 (99) 96 12/17/16 21:15 98.1 97 16 145/85 (105) 97 12/17/16 16:00 98.2 99 18 149/77 (101) 97 I/O 12/17/16 12/17/16 12/17/16 12/18/16 12/18/16 12/18/16 07:00 15:00 23:00 07:00 15:00 23:00 Output Total 500 ml 475 ml 450 ml Balance -500 ml -475 ml -450 ml Output Urine Total 500 ml 475 ml 450 ml Bladder Scan Volume Amount 260 ml 315 ml # Bowel Movements 1 0 Result Diagram: 12/17/16 0835 12/17/16 0835 Imaging Last Impressions Brain MRI 12/13/16 0000 Signed Impressions: Service Date/Time: Tuesday, December 13, 2016 12:20 - CONCLUSION: 1. The examination demonstrates multiple small areas of intraparenchymal and extra-axial hemorrhage as described above. These areas are more apparent on the patient's MRI examination than on the CT. Direct comparison is made. The areas of edema and hemorrhage appear similar though they are isointense on the CT. 2. 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 There is cortical atrophy. Anthony Burns MD Chest X-Ray 12/04/16 0000 Signed Impressions: Service Date/Time: November 11:58 - CONCLUSION: Improving aeration. Lonnie Blanchard MD Upper Extremity Ultrasound 12/02/16 0000 Signed Impressions: Service Date/Time: Saturday, December 03, 2016 00:53 - CONCLUSION: 1. Occlusive DVT in the cephalic and basilic vein on the right. Alex Goode MD Head CT 12/01/16 0000 Signed Impressions: Service Date/Time: Thursday, December 01, 2016 13:14 - CONCLUSION: Evolving intracranial hemorrhagic foci as above, both intra-axial and extra-axial. Jesus Lee MD Modified Barium Swallow 11/30/16 0000 Signed Impressions: Service Date/Time: Wednesday, November 30, 2016 00:00 - CONCLUSION: Please refer to speech pathology report for full details. Lonnie Cook MD Transcranial Doppler Study Complete 11/17/16 0000 Signed Impressions: Service Date/Time: Thursday, November 17, 2016 10:03 - CONCLUSION: 1. Nondiagnostic examination due to poor transcranial windows. Konstantin Dash MD Abdomen X-Ray 11/12/16 0000 Signed Impressions: Service Date/Time: Saturday, November 12, 2016 08:23 - CONCLUSION: 1. Gastric tube in good position. 2. Probable right renal stones. Narayan Coulter MD Cervical Spine CT 11/09/161950 Signed Impressions: Service Date/Time: Wednesday, November 09, 2016 20:14 - CONCLUSION: Negative trauma CT. Cj Isidro MD Procedures None Other Results Laboratory Tests Test 11/09/16 20:05 11/10/16 02:50 11/12/16 09:12 11/15/16 18:19 Hemoglobin A1c 6.0 % Nasal Screen MRSA (PCR) MRSA NOT DETECTED Fibrinogen 432 mg/dL Serum Osmolality 327 MOSM/KG Test 11/17/16 06:05 11/18/16 14:21 11/19/16 10:20 11/21/16 09:15 Blood Gas Ventilator Setting PRVC / AC / Plasma Cells % Thyroid Stimulating Hormone 3rd Gen 1.040 uIU/ML Blood Gas Liter Flow 15 L/M Test 11/21/16 09:32 11/21/16 14:30 11/22/16 06:11 11/24/16 07:39 Lactic Acid Level 1.5 mmol/L Protein Corrected Calcium 8.3 MG/DL Troponin I 0.08 NG/ML D-Dimer Quantitative (PE/DVT) 24.65 MG/L FEU Nucleated Red Blood Cells 1 /100 WBC Toxic Granulation 1+ Hematology Comments B-Type Natriuretic Peptide 388 PG/ML Basophilic Stippling FAINT Acanthocytes OCC Random Vancomycin Level 15.5 COMMENT Test 11/26/16 10:42 12/01/16 14:49 12/01/16 21:30 12/03/16 17:50 Blood Urea Nitrogen 18 MG/DL Creatinine 0.53 MG/DL Random Glucose 142 MG/DL Total Protein 5.4 GM/DL Albumin 1.5 GM/DL Calcium Level 7.7 MG/DL Phosphorus Level 2.5 MG/DL Magnesium Level 1.9 MG/DL Alkaline Phosphatase 140 U/L Aspartate Amino Transf (AST/SGOT) 29 U/L Alanine Aminotransferase (ALT/SGPT) 15 U/L Total Bilirubin 2.5 MG/DL Sodium Level 143 MEQ/L Potassium Level 3.2 MEQ/L Chloride Level 110 MEQ/L Carbon Dioxide Level 25.6 MEQ/L Prealbumin 6 MG/DL Blastocytes 1 % Keratocytes OCC Urine Amorphous Sediment RARE Urine Yeast (Budding) MANY Haptoglobin 87 MG/DL Iron Level 41 MCG/DL Total Iron Binding Capacity 161 MCG/DL Percent Iron Saturation 25.5 % Ferritin 399 NG/ML Lactate Dehydrogenase 284 U/L Vitamin B12 Level 1653 PG/ML Test 12/03/16 21:51 12/04/16 09:15 12/05/16 07:03 12/09/16 16:45 Atypical Lymphocytes % Blood Smear Pathologist Review Reticulocyte Count 2.5 % Absolute Reticulocyte Count 89.1 MIL/L Prothrombin Time 11.9 SEC Prothromb Time International Ratio 1.1 RATIO Activated Partial Thromboplast Time 32.0 SEC T-Cell Gene Rearrangement (PCR) Folate 11.7 NG/ML Immunophenotypic Analysis (T) Smudge Cells PRESENT Ovalocytes 1+ Vancomycin Level Trough 15.8 MCG/ML Test 12/11/16 13:31 12/11/16 15:20 12/12/16 07:13 12/13/16 14:46 Ammonia 15 MCMOL/L Blood Gas Puncture Site RT RADIAL Blood Gas Patient Temperature 98.6 Blood Gas HCO3 29 mmol/L Blood Gas Base Excess 5.3 mmol/L Blood Gas Oxygen Saturation 92 % Arterial Blood pH 7.52 Arterial Blood Partial Pressure CO2 35 mmHg Arterial Blood Partial Pressure O2 68 mmHg Arterial Blood Oxygen Content 12.6 Vol % Arterial Blood Carboxyhemoglobin 2.0 % Arterial Blood Methemoglobin 0.6 % Blood Gas Hemoglobin 9.7 G/DL Oxygen Delivery Device RA Blood Gas Inspired Oxygen 21 % Band Neutrophils % 1 % Red Cell Morphology Comment NORMAL Urine Color YELLOW Urine Turbidity HAZY Urine pH 6.0 Urine Specific [place] 1.018 Urine Protein 30 mg/dL Urine Glucose (UA) NEG mg/dL Urine Ketones NEG mg/dL Urine Occult Blood MOD Urine Nitrite NEG Urine Bilirubin NEG Urine Urobilinogen 4.0 MG/DL Urine Leukocyte Esterase MOD Urine RBC 53 /hpf Urine WBC 36 /hpf Urine WBC Clumps RARE Urine Squamous Epithelial Cells <1 /hpf Urine Calcium Oxalate Crystals OCC /hpf Urine Bacteria MOD /hpf Urine Hyaline Casts 7 /lpf Urine Mucus FEW /lpf Microscopic Urinalysis Comment CATH-CULTURE IND Test 12/14/16 08:10 12/14/16 13:50 12/15/16 07:39 12/17/16 08:35 Albumin 2.3 GM/DL Phosphorus Level 2.9 MG/DL Magnesium Level 1.9 MG/DL White Blood Count 16.8 TH/MM3 Red Blood Count 4.07 MIL/MM3 Hemoglobin 11.9 GM/DL Hematocrit 36.2 % Mean Corpuscular Volume 89.0 FL Mean Corpuscular Hemoglobin 29.1 PG Mean Corpuscular Hemoglobin Concent 32.7 % Red Cell Distribution Width 18.8 % Platelet Count 532 TH/MM3 Mean Platelet Volume 7.2 FL Neutrophils (%) (Auto) 18.2 % Lymphocytes (%) (Auto) 72.6 % Monocytes (%) (Auto) 7.7 % Eosinophils (%) (Auto) 1.0 % Basophils (%) (Auto) 0.5 % Neutrophils # (Auto) 3.1 TH/MM3 Lymphocytes # (Auto) 12.2 TH/MM3 Monocytes # (Auto) 1.3 TH/MM3 Eosinophils # (Auto) 0.2 TH/MM3 Basophils # (Auto) 0.1 TH/MM3 CBC Comment AUTO DIFF Differential Total Cells Counted 100 Neutrophils % (Manual) 42 % Lymphocytes % 34 % Monocytes % 20 % Eosinophils % 1 % Basophils % 1 % Neutrophils # (Manual) 7.4 TH/MM3 Metamyelocytes 1 % Myelocytes 1 % Differential Comment FINAL DIFF MANUAL Platelet Estimate HIGH Platelet Morphology Comment NORMAL Blood Urea Nitrogen 29 MG/DL Creatinine 0.59 MG/DL Random Glucose 178 MG/DL Calcium Level 10.1 MG/DL Sodium Level 137 MEQ/L Potassium Level 4.3 MEQ/L Chloride Level 103 MEQ/L Carbon Dioxide Level 23.9 MEQ/L Anion Gap 10 MEQ/L Estimat Glomerular Filtration Rate 131 ML/MIN Test 12/18/16 08:38 Phenytoin (Dilantin) Level 10.2 MCG/ML Objective Remarks GENERAL: Well-developed patient, in no apparent distress. SKIN: Warm and dry. HEENT: Nose without bleeding. Airway patent. NECK: Trachea midline. Supple. CARDIOVASCULAR: Heart rate irregular, rate wnl without murmurs, gallops, or rubs. RESPIRATORY: Coarse breath sounds BUL. No wheezes, rales, or rhonchi. GASTROINTESTINAL: Abdomen soft, non-tender, nondistended. Bowel Sounds normoactive x4. MUSCULOSKELETAL: Extremities without clubbing, cyanosis, bilateral lower extremity trace edema. NEUROLOGICAL: Drowsy. Moves all extremities weak, confused. Medications and IVs Current Medications Medications (Trade) Dose Ordered Sig/Gregg Route Start Time Stop Time Status Last Admin (Proscar) 5 mg DAILY PO 11/10/16 09:00 12/18/16 09:40 (Flomax) 0.4 mg HS PO 11/10/16 21:00 12/17/16 20:28 (Detrol La) 2 mg DAILY PO 11/10/16 09:00 12/18/16 09:40 (Glucagon Inj) 1 mg UNSCH PRN OTHER 11/09/16 23:45 11/24/16 03:48 (Ativan Inj) 1 mg Q5M PRN IV 11/12/16 00:45 11/12/16 01:45 (Peridex 0.12% Liq) 15 ml BID@08,20 MT 11/12/16 08:00 12/15/16 20:00 (NS Flush) DAILY IVF 11/12/16 09:00 11/28/16 09:22 (NS Flush) UNSCH PRN IVF 11/12/16 08:15 (Prevacid Odt) 30 mg DAILY NG 11/12/16 09:00 12/18/16 09:40 (Colace Liq) 100 mg Q12HR PO 11/12/16 09:00 12/18/16 09:42 (NS Flush) 2 ml UNSCH PRN IV FLUSH 11/12/16 08:30 (NS Flush) 2 ml BID IV FLUSH 11/12/16 09:00 12/18/16 09:44 (Tears Naturale Opth Soln) 1 drop TID EACH EYE 11/12/16 09:00 12/17/16 17:31 (Zofran Inj) 4 mg Q6H PRN IV 11/12/16 08:30 11/15/16 05:45 (Albuterol Neb) 2.5 mg Q2HR NEB PRN INH 11/12/16 08:30 11/29/16 21:19 (Dulcolax Supp) 10 mg DAILY PRN RECTAL 11/12/16 08:30 (Tylenol 650 Mg/ 20 ml Liq) 650 mg Q6H PRN NG 11/12/16 08:45 12/07/16 19:35 Levetriacetam 100 ml @ 400 mls/hr Q8HR IV 11/12/16 22:00 Future Hold 11/30/16 05:35 (Miralax) 17 gm BID OG-TUBE 11/13/16 21:00 12/13/16 20:39 (Lactulose Liq) 30 ml DAILY PO 11/14/16 09:00 Future Hold 12/02/16 09:54 (Glycerin Adult Supp) 2 gm BID PRN RECTAL 11/13/16 15:00 (Apresoline Inj) 20 mg Q4H PRN IV PUSH 11/14/16 02:15 11/14/16 03:07 Fosphenytoin Sodium 100 mgpe/ Sodium Chloride 52 ml @ 208 mls/hr Q6HR IV 11/18/16 13:00 Future Hold 11/30/16 13:10 (Brethine Inj) 1 mg UNSCH PRN SQ 11/20/16 16:30 (Lasix Inj) 40 mg DAILY IV PUSH 11/22/16 11:00 12/18/16 09:00 (D50w (Syr) Inj) 50 ml UNSCH PRN IV 11/25/16 09:30 11/25/16 09:46 (Megace Liq) 400 mg DAILY PO 11/26/16 09:00 12/18/16 09:40 (Keppra) 1,000 mg Q8HR PO 11/30/16 22:00 12/18/16 06:06 (Bactroban 2% Cream) 1 applic Q12HR TOPICAL 12/02/16 21:00 12/17/16 20:28 (Diflucan) 100 mg DAILY PO 12/04/16 09:00 12/18/16 09:40 (Santyl Oint) 1 applic DAILY TOPICAL 12/04/16 12:00 12/17/16 08:15 (Levsin) 0.125 mg Q4H PRN PO 12/04/16 11:30 (Heparin Central Flush) 200 units DAILY IV FLUSH 12/05/16 12:00 (Tylenol 160 Mg/ 5 ml Liq) 650 mg Q4H PRN PO 12/11/16 11:00 12/14/16 02:33 (Lopressor) 25 mg Q8HR PO 12/13/16 00:45 12/18/16 06:06 (Dilantin) 100 mg TID PO 12/14/16 13:00 12/18/16 09:40 (NovoLIN R SUPPLEMENTAL SCALE) 1 ACHS SLIDING SCALE SQ 12/16/16 12:00 12/17/16 20:47 (Norvasc) 5 mg DAILY PO 12/17/16 12:00 12/18/16 09:40 (Levemir Inj) 5 units Q12H SQ 12/17/16 12:00 12/17/16 23:31 A/P Assessment and Plan 80 y/o with a history of HTN, DM, and BPH presented to the ED after a fall at home, with a LOC for 10-15 mins. Closed head injury Subdural hematoma Bilateral intracranial hemorrhaging - Managed by neurosurgery and no indication for surgery. - Neuro checks, seizure precautions - Keppra and Cerebyx on hold. Metabolic encephalopathy-improving - head CT 12/01/16 showed Bilateral hypodense subdural hematomas are seen in the occipital region and along the tentorium cerebelli on the right as well as small right frontal subdural hematoma unchanged. The left frontal parenchymal bleed is decreased in density with a small amount of edema identified. There is atrophy and moderate confluent hypodense white matter disease in the periventricular regions. The right frontal and left insular bleeds are much less conspicuous with a small amount of residual high density in the right frontal region with a small amount of surrounding edema. There is no midline shift or mass effect. Vascular calcifications are noted. No fractures. Anemia - WBC 15.2 -->13.4 --> 16.4 --> 13.0 - Hematology following. Ordered other testing R/O other bone marrow abnormality. Follow results. - Blood cultures no growth in 5 days. DC Vanco as planned. - Continue to trend WBC. 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 Atrial fibrillation Hypertension - Continue with Lopressor 25mg BID, increase to TID for better rate control and BP control - Oral anticoagulation contraindicated secondary to intracranial bleed - Monitor BP Trend, HR Decubitus ulcer, DTI sacral area - Continue Santyl - Wound care following. Recommends mable thick coverage of Santyl ointment. 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 Diabetes mellitus - hemoglobin A1c 6.0 - ISS. Uncontrolled blood sugars and started on long lasting insulin low dose. Occlusive DVT in cephalic vein right upper extremity - Hematology consultation appreciated however oral anticoagulation contraindicated - Avoid IV access RUE Urinary tract infection - off Azactam 1 g IV every 12H - on Diflucan 100 mg by mouth daily 12/03/16 secondary to been culture positive for Jane, Stop today will follow Urinalysis and culture, he has Noriega cath high risk for reinfection. Generalized weakness, prolonged hospitalization - Attempts by PT unsuccessful because he is drowsy in AM. Waking hours at night, improving Prophylaxis GI - lanosprazole DVT - SCD/pharmacological prophylaxis when okay with neurosurgery Discharge Planning 12/16/16- [place] nurse- family is asking for records, stated Dr. Godfrey stated he would get records for family to give to the [facility]. Nurse kenia Godfrey and confirmed. Following for outcome of family's meeting with makeda[place]. Kameron Mcfarland MD Dec 18, 2016 13:29
[2016-12-18] MEDS: INSULIN DETEMIR 100 UNITS/ML VIAL SQ SCH (13:42)
[2016-12-18 16:38] VITALS: BP 137/82; PULSE 91; RESP 18; TEMP 98.2; O2SAT 99
[2016-12-18] MEDS: MUPIROCIN 2% CREAM 15 GM TOPICAL SCH ×2 (18:28→21:00)
[2016-12-18 20:45] VITALS: BP 136/72; PULSE 104; RESP 18; TEMP 98.6; O2SAT 95
--- NOTE | 2016-12-18 21:15 | HHI.NSPN ---
History Chief Complaint: Unable to obtain due to patient's clinical condition. Interval History A little more alert today. According to family he is saying a few words and responds to questions, remains confused, following a few commands occasionally. Exam Results Vital Signs Date Time Temp Pulse Resp B/P (MAP) Pulse Ox O2 Delivery O2 Flow Rate FiO2 12/18/16 20:45 98.6 104 18 136/72 (93) 95 Intake and Output 12/18/16 12/18/16 12/19/16 08:00 16:00 00:00 Intake Total 480 ml Output Total 450 ml 575 ml Balance -450 ml -95 ml Physical Examination GENERAL: Awake and relatively alert. SKIN: Warm, dry & intact. HEENT: Normocephalic, atraumatic. NECK: No JVD, trachea midline. CARDIOVASCULAR: Regular rhythm. RESPIRATORY: Clear respirations GASTROINTESTINAL: Abdomen soft, no obvious tenderness MUSCULOSKELETAL: No evident deformity or clubbing. NEUROLOGICAL: Tracks with his eyes Conjugate gaze Moves upper and lower extremities mild to moderate spontaneous and intermittent to command Lab, Micro, Other Results Laboratory Tests Test 12/18/16 08:38 Phenytoin (Dilantin) Level 10.2 MCG/ML Medical Decision Making Impression and Plan Impression/plan: 1. Traumatic brain injury. Most recent CT scan stable with resolving contusions, stable mild to moderate subdural fluid collections without significant mass effect. 2. UTI. Positive Jane on recent culture. On Diflucan 3. Hypertension, atrial fibrillation. Remains on Lopressor. 3. Recent seizures. He remains on Keppra and Dilantin. Dilantin level today satisfactory 4. Sacral decubitus ulcer. Continuing decubitus precautions, wound care, Santyl 5. Leukocytosis. Hematology following-workup in progress 6. Diabetes. Remains on insulin sliding scale. 7. Respiratory insufficiency. Improving. Most recent chest x-ray improved. Weaning off oxygen. Family is continuing efforts to have the patient transferred back to [facility] [place]. Tony Godfrey MD Dec 18, 2016 21:15
[2016-12-18] MEDS: TAMSULOSIN HCL 0.4 MG CAP PO SCH (21:33)
[2016-12-19] MEDS: INSULIN DETEMIR 100 UNITS/ML VIAL SQ SCH ×2 (00:19→13:36)
[2016-12-19 01:11] VITALS: BP 153/81; PULSE 103; RESP 18; TEMP 97.8; O2SAT 95
[2016-12-19 05:15] VITALS: BP 126/82; PULSE 104; RESP 16; TEMP 97.6; O2SAT 96
[2016-12-19] MEDS: METOPROLOL TARTRATE 25 MG TAB PO SCH ×3 (05:41→20:45)
[2016-12-19] MEDS: levETIRAcetam 500 MG TAB PO SCH ×3 (05:41→20:45)
[2016-12-19 08:00] VITALS: BP 143/80; PULSE 102; RESP 18; TEMP 97.6; O2SAT 97
[2016-12-19] MEDS: INSULIN NovoLIN REGULAR SUPPLEMENTAL SCALE SQ SCH ×4 (08:00→20:34)
[2016-12-19] MEDS: CHLORHEXIDINE 0.12% (ORAL KIT) 15 ML CUP MT SCH ×2 (08:00→20:00)
[2016-12-19] MEDS: POLYETHYLENE GLYCOL 17 GM PKG OG-TUBE SCH ×2 (09:00→20:34)
[2016-12-19] MEDS: TOLTERODINE TARTRATE 2 MG CAP LA PO SCH (09:00)
[2016-12-19] MEDS: SODIUM CHLORIDE 0.9% FLUSH 10 ML FLUSH IV FLUSH SCH ×2 (09:00→20:34)
[2016-12-19] MEDS: ARTIFICIAL TEARS OPTH SOLN 15 ML BTL EACH EYE SCH ×3 (09:00→18:00)
[2016-12-19] MEDS: MUPIROCIN 2% CREAM 15 GM TOPICAL SCH ×2 (09:00→20:37)
[2016-12-19] MEDS: SODIUM CHLORIDE 0.9% FLUSH 10 ML FLUSH IVF SCH (09:00)
[2016-12-19] MEDS: COLLAGENASE OINT 30 GM TUBE TOPICAL SCH ×2 (09:00→14:50)
--- NOTE | 2016-12-19 09:44 | HHI.NSPN ---
([facility]) History Chief Complaint: Unable to obtain due to patient's clinical condition. ([facility]) Interval History 11/09: 80-year-old male who according to his family was going up a step into the house with his cane when he fell backwards, striking the back of his head. He was reportedly unconscious for 10-15 minutes. He then had some shaking in the extremities as he was waking up. He has been somewhat sleepy and a little confused since he woke up at the patient's family states that he is conversing reasonably well with them. He normally is fairly independent, ambulating with a cane and is usually mentally alert with only mild memory loss. Positive emesis reported. Patient has no complaint of headache or neck pain. No complaint of low back or joint pain. 11/10: nursing reports agitated overnight, currently sleeping. f/u CT Head completed, moves all four extremities. son translated - oriented to name and place only. 11/11: Notified by PARVIN Stoner, that Nursing had notified her that the patient's mental status was worse this morning and that she had ordered a stat CT brain. When seen this morning the patient is obtunded and not answering to verbal stimuli. Nursing reports that CT had called and was sending someone up to transport the patient to the scanner. She stated that the patient did receive morphine and hydrocodone during the night for pain because he was agitated. 11/12: The patient has been intubated this morning due to persistent decreased mental status. Possibly a few more episodes of seizure activity reported last evening. He is continuing on Dilantin and Keppra for seizures. 11/13: The patient still is intubated, mechanically ventilated and sedated with midazolam. He does not respond to noxious stimulation. The EEG done yesterday morning did demonstrate seizure activity. Neurology evaluated the patient yesterday and adjusted his anti-epileptic medications. An EEG was done this morning prior to the patient being seen. 11/14: The patient remains intubated. A midazolam drip is still infusing as is a fentanyl drip. A repeat Ct brain this morning demonstrated evolving contusions and haemorrhages. 11/15: The patient is intubated without any sedation. The midazolam and fentanyl infusions were discontinued yesterday. A 3% saline drip continues to infuse. He did have a slight twitching of the eyelids when his name was called but no eye opening. 11/16: This morning the patient opened his eyes to verbal stimulation. He continues to be intubated without any sedation. 11/17/16: Patient remains intubated. He had a dose of intravenous sedation last night for agitation. Remains relatively alert. Positive fever last evening. Some difficulty with hemodynamic instability last evening. 11/18: The patient is on a cooling blanket with ice packs when seen this morning. He continues to be intubated. He does look to whomever is speaking and did follow commands. 11/19: The patient is asleep but awakens on his own. He was extubated this morning and is now on a nasal cannula. He follows commands and moves all his extremities to a degree. He does tell his daughter that he is tired. The family reports earlier that the patient did ask where his and son were by name. 11/20: When seen this afternoon the patient had just been transferred to a regular med/surg floor. He appears mildly distressed and is moaning. His daughter states that he has said he has pain all over. 11/21: Notified by [facility] physician (Dr Mejia, PGY1) that patient was having increased respiratory effort. He reported that the patient's oxygen saturation was satisfactory but the chest x-ray demonstrated fluid overload. Therefore 40 mg furosemide IV was ordered as was a nebuliser treatment. When seen the patient appeared moderately distress and had just received the furosemide with the nebuliser treatment ongoing. The Charge Nurse reported that the patient was lethargic and not responding to commands. He reported that the [employer] is aware that the patient is being transferred to [facility] for further care and management. The Hospitalist was present and evaluating the patient. 11/22: Patient not opening eyes or following commands. Not verbalizing. 11/23: Pt opens eyes and tracks around room. He is restless. Not following commands for staff or reportedly family. Pt not verbalizing. 11/24: This morning the patient is awake and tracks. He is noted to move the upper extremities spontaneously. He moans but there is no other verbalisation. The son did state that yesterday he was talking quite a bit. When asked the son states that he has no complaint of pain but says that he feels tired all the time. 11/25: The patient is drowsy when seen this afternoon. He does squeeze with the right hand mimicking it demonstrated, otherwise he responded to local noxious stimulation. He did attempt to verbalise a few words. 11/26: The patient is initially seen with Dr Godfrey this morning and is lethargic. His daughter reports that he will not wake up to eat breakfast. This afternoon when seen the patient remains lethargic and minimally responsive to noxious stimulation. His daughter reported that the patient was up for the whole night, not last night but the night before. 11/27: This morning the patient remains lethargic. His daughter reports that he did briefly wake some yesterday and she was able to feed him but not today. 11/28: The patient is drowsy this morning. He does awaken to voice and looks at this practitioner. The son states that the patient didn't know him this morning. He did say the patient did squeeze with his right hand and moved it spontaneously and would grab the covers and move them. He does say that the patient did not move any of his other extremities. The patient did eat well this morning according to the son. The son did have to feed the patient. The patient had a repeat CT brain yesterday due to his continued lethargy/ drowsiness which demonstrated continued evolution of the bilateral intraparenchymal haemorrhages with the subdural haemorrhages decreasing. 11/29: family in room, says pt doing well, she would like to try to fly him back to [facility] for more medical care following completion of rehab 11/30: appears more awake today, son would like to try to have patient brought back to [facility] following discharge. 12/01: The patient is awake today when seen. After the daughter told him who I was he responded with "Daniel doctor." He did follow some some commands. In speaking with the daughter the plan is to take her father back home in 3 to 4 weeks, basically once all the arrangements have been made. When asked about transferring to [facility] she said that the family wanted him to stay here until the arrangements have been made. Notified this morning by PARVIN Valdez, that Dr Navarrete had notified him that there is a physician in [facility] that would like to speak with Dr Godfrey regarding the patient and that the telephone number is on the chart. 12/02: When seen this afternoon the patient is awake and alert. He does respond and grasps this practitioner's hand in greeting it seems. He does not verbalise. He did have a repeat CT brain yesterday afternoon which demonstrated evolving haemorrhages. 12/03:This morning the patient is awake. He does try to verbalise a couple words but it is garbled. Nursing reports that the patient has had diarrhea and held the docusate and lactulose. The patient had an ultrasound of the right upper extremity yesterday which did demonstrated occlusive thrombus to the cephalic and basilic veins. 12/04: Pt opens eyes. Not following commands. Not verbalizing. 12/05: Patient opens eyes to voice, smiles, questionable followed simple command left UE x one, not following commands other extremities. Not verbalizing. 12/06: Patient's Daughter at bedside. Patient opens eyes to voice, smiles, questionable followed simple command left UE x one, not following commands other extremities. Not verbalizing. 12/07: Patient opens eyes to voice, smiles, questionable followed simple command left UE x one, not following commands other extremities. Not verbalizing. 12/13: Patient reported to be sleeping a little better at night. Still lethargic much of the day. According to family he is saying a few words and responds to questions, remains confused, following a few commands occasionally. 12/15: Patient extremely lethargic. No response to verbal stimulation but did withdraw upper extremities and open eyes to localised noxious stimulation. Slight moaning but no other response. 12/16: The patient is lethargic but less so today. He was noted to open his eyes and move both upper extremities spontaneously. He did respond to some commands weakly but did not verbalise. 12/19: This morning the patient is seen in rounds with Dr. Godfrey. The patient is awake and alert and did track with his eyes. The undersigned acts as a scribe for the remainder of this note. (Brennon White) Exam Results 12/17/16 12/17/16 12/18/16 12/18/16/13/17 10/13/17 06:00 18:00 06:00 18:00 06:00 18:00 Intake Total 480 ml Output Total 500 ml 475 ml 1025 ml Balance -500 ml -475 ml -545 ml Intake Oral 480 ml Output Urine Total 500 ml 475 ml 1025 ml Bladder Scan Volume Amount 260 ml 315 ml # Bowel Movements 1 1 Vital Signs Date Time Temp Pulse Resp B/P (MAP) Pulse Ox O2 Delivery O2 Flow Rate FiO2 12/19/16 08:00 97.6 102 18 143/80 (101) 97 12/19/16 05:15 97.6 104 16 126/82 (97) 96 12/19/16 01:11 97.8 103 18 153/81 (105) 95 12/18/16 20:45 98.6 104 18 136/72 (93) 95 12/18/16 16:38 98.2 91 18 137/82 (100) 99 12/18/16 12:36 98.1 102 18 110/67 (81) 99 12/18/16 08:00 98.2 99 18 140/87 (104) 98 12/18/16 04:00 97.2 104 16 155/97 (116) 95 12/18/16 00:05 97.3 79 16 149/75 (99) 96 12/17/16 21:15 98.1 97 16 145/85 (105) 97 12/17/16 16:00 98.2 99 18 149/77 (101) 97 12/17/16 12:00 97.4 116 18 144/84 (104) 97 12/17/16 08:00 97.9 93 18 165/87 (113) 97 12/17/16 05:40 97.0 96 20 140/76 (97) 96 12/17/16 00:41 99.2 98 24 154/78 (103) 98 12/16/16 22:32 98 12/16/16 21:25 97.7 93 20 158/75 (102) 98 12/16/16 16:24 97.4 87 17 144/78 (100) 96 12/16/16 13:21 97.2 115 18 121/78 (92) 96 (Brennon White) Physical Examination Awake and alert but nonverbal. The patient did track with his eyes. He spontaneously moved both upper extremities. He had a weak hand grasp with the right hand. (Brennon White) Lab, Micro, Other Results Laboratory Tests Test 12/17/16 08:35 12/18/16 08:38 12/19/16 07:49 White Blood Count 16.8 TH/MM3 Red Blood Count 4.07 MIL/MM3 Hemoglobin 11.9 GM/DL Hematocrit 36.2 % Mean Corpuscular Volume 89.0 FL Mean Corpuscular Hemoglobin 29.1 PG Mean Corpuscular Hemoglobin Concent 32.7 % Red Cell Distribution Width 18.8 % Platelet Count 532 TH/MM3 Mean Platelet Volume 7.2 FL Neutrophils (%) (Auto) 18.2 % Lymphocytes (%) (Auto) 72.6 % Monocytes (%) (Auto) 7.7 % Eosinophils (%) (Auto) 1.0 % Basophils (%) (Auto) 0.5 % Neutrophils # (Auto) 3.1 TH/MM3 Lymphocytes # (Auto) 12.2 TH/MM3 Monocytes # (Auto) 1.3 TH/MM3 Eosinophils # (Auto) 0.2 TH/MM3 Basophils # (Auto) 0.1 TH/MM3 CBC Comment AUTO DIFF Differential Total Cells Counted 100 Neutrophils % (Manual) 42 % Lymphocytes % 34 % Monocytes % 20 % Eosinophils % 1 % Basophils % 1 % Neutrophils # (Manual) 7.4 TH/MM3 Metamyelocytes 1 % Myelocytes 1 % Differential Comment FINAL DIFF MANUAL Platelet Estimate HIGH Platelet Morphology Comment NORMAL Blood Urea Nitrogen 29 MG/DL Creatinine 0.59 MG/DL Random Glucose 178 MG/DL Calcium Level 10.1 MG/DL Sodium Level 137 MEQ/L Potassium Level 4.3 MEQ/L Chloride Level 103 MEQ/L Carbon Dioxide Level 23.9 MEQ/L Anion Gap 10 MEQ/L Estimat Glomerular Filtration Rate 131 ML/MIN Phenytoin (Dilantin) Level 11.4 MCG/ML 10.2 MCG/ML 11.2 MCG/ML (Brennon White) Medical Decision Making Impression and Plan Impression: 1. Traumatic brain injury 2. Respiratory failure, improved 3. Seizures 4. Jane UTI, resolved 5. Occlusive DVT to right cephalic & basilic veins 6. Leukocytosis 7. Sacral decubitus 8. Atrial fibrillation 9. Hypertension 10. Diabetes Plan: Medical management per Hospitalist. No active issues for Neurosurgery. Will see if Hospitalist will accept patient. (Brennon White) Attending Statement I have personally seen and examined the patient on the date of this note. Pertinent documentation and study results have been reviewed by the undersigned. I have personally developed the treatment plan and performed medical decision making. Agree with findings, exam, and treatment plan as noted above. Patient remains relatively awake and alert this morning. Tracking with his eyes Grasps both hands, apparently to command. Purposeful with the upper extremities. Neurologic exam stable No further neurosurgical intervention planned. Possible transfer to medicine service. Family arranging transfer to [facility]. (Tony Godfrey MD) Brennon White Dec 19, 2016 09:44 Tony Godfrey MD Dec 19, 2016 18:25
[2016-12-19] MEDS: amLODIPine BESYLATE 5 MG TAB PO SCH (09:56)
[2016-12-19] MEDS: FINASTERIDE 5 MG TAB PO SCH (09:56)
[2016-12-19] MEDS: PHENYTOIN SODIUM 100 MG CAP PO SCH ×3 (09:56→18:19)
[2016-12-19] MEDS: MEGESTROL ACETATE SUSP 400 MG/10 ML CUP PO SCH (09:57)
[2016-12-19] MEDS: LANSOPRAZOLE SOLUTAB 30 MG TAB NG SCH (09:57)
[2016-12-19] MEDS: FUROSEMIDE 40 MG/4 ML VIAL IV PUSH SCH (09:57)
[2016-12-19] MEDS: DOCUSATE SODIUM 100 MG/10 ML UDC PO SCH ×2 (09:57→20:34)
--- NOTE | 2016-12-19 10:11 | HHI.PR ---
Subjective Remarks Follow up visit SDH, UE DVT, HTN, DM2. Patient seen and examined today. Patient is laying in bed. Continues to be drowsy and lethargic. Grimaces to pain. Occasional cough noted. As per nursing, no acute issues overnight. Patient was out of bed yesterday for about 2 hours with physical therapy. Appears comfortable. 12/16: Stable in his bedroom, in sitting position and sometimes seen in chair. continue confused. no nausea, vomit or diarrhea his Daughter by his side. 12/17: Seen in his bedroom in the presence of His Daughter and Daughter, they asked me about his father and consulted to Palliative care consult placed but they want to continue Aggressive management at this time. 12/18: Stable, Lethargic and weak as per her Daughter in the room, Mrs. Cardozo. No Nausea, vomit or diarrhea. 12/19: Seen with his Son in the room Mr. Sanders, stable no changes to anterior assessment, has Noriega cath in place, no nausea, vomit, or diarrhea, adjusted Insulin due to uncontrolled blood sugar. Objective Vital Signs Date Time Temp Pulse Resp B/P (MAP) Pulse Ox O2 Delivery O2 Flow Rate FiO2 12/19/16 08:00 97.6 102 18 143/80 (101) 97 12/19/16 05:15 97.6 104 16 126/82 (97) 96 12/19/16 01:11 97.8 103 18 153/81 (105) 95 12/18/16 20:45 98.6 104 18 136/72 (93) 95 12/18/16 16:38 98.2 91 18 137/82 (100) 99 12/18/16 12:36 98.1 102 18 110/67 (81) 99 I/O 12/18/16 12/18/16 12/18/16 12/19/16 12/19/16 12/19/16 07:00 15:00 23:00 07:00 15:00 23:00 Intake Total 480 ml Output Total 450 ml 575 ml Balance -450 ml -95 ml Intake Oral 480 ml Output Urine Total 450 ml 575 ml # Bowel Movements 0 1 Result Diagram: 12/17/16 0835 12/17/16 0835 Imaging Last Impressions Brain MRI 12/13/16 0000 Signed Impressions: Service Date/Time: Tuesday, December 13, 2016 12:20 - CONCLUSION: 1. The examination demonstrates multiple small areas of intraparenchymal and extra-axial hemorrhage as described above. These areas are more apparent on the patient's MRI examination than on the CT. Direct comparison is made. The areas of edema and hemorrhage appear similar though they are isointense on the CT. 2. 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 There is cortical atrophy. Anthony Burns MD Chest X-Ray 12/04/16 0000 Signed Impressions: Service Date/Time: November 11:58 - CONCLUSION: Improving aeration. Lonnie Blanchard MD Upper Extremity Ultrasound 12/02/16 0000 Signed Impressions: Service Date/Time: Saturday, December 03, 2016 00:53 - CONCLUSION: 1. Occlusive DVT in the cephalic and basilic vein on the right. Alex Goode MD Head CT 12/01/16 0000 Signed Impressions: Service Date/Time: Thursday, December 01, 2016 13:14 - CONCLUSION: Evolving intracranial hemorrhagic foci as above, both intra-axial and extra-axial. Jesus Lee MD Modified Barium Swallow 11/30/16 0000 Signed Impressions: Service Date/Time: Wednesday, November 30, 2016 00:00 - CONCLUSION: Please refer to speech pathology report for full details. Lonnie Cook MD Transcranial Doppler Study Complete 11/17/16 0000 Signed Impressions: Service Date/Time: Thursday, November 17, 2016 10:03 - CONCLUSION: 1. Nondiagnostic examination due to poor transcranial windows. Konstantin Dash MD Abdomen X-Ray 11/12/16 0000 Signed Impressions: Service Date/Time: Saturday, November 12, 2016 08:23 - CONCLUSION: 1. Gastric tube in good position. 2. Probable right renal stones. Narayan Coulter MD Cervical Spine CT 11/09/161950 Signed Impressions: Service Date/Time: Wednesday, November 09, 2016 20:14 - CONCLUSION: Negative trauma CT. Cj Isidro MD Procedures None Other Results Laboratory Tests Test 11/09/16 20:05 11/10/16 02:50 11/12/16 09:12 11/15/16 18:19 Hemoglobin A1c 6.0 % Nasal Screen MRSA (PCR) MRSA NOT DETECTED Fibrinogen 432 mg/dL Serum Osmolality 327 MOSM/KG Test 11/17/16 06:05 11/18/16 14:21 11/19/16 10:20 11/21/16 09:15 Blood Gas Ventilator Setting PRVC / AC / Plasma Cells % Thyroid Stimulating Hormone 3rd Gen 1.040 uIU/ML Blood Gas Liter Flow 15 L/M Test 11/21/16 09:32 11/21/16 14:30 11/22/16 06:11 11/24/16 07:39 Lactic Acid Level 1.5 mmol/L Protein Corrected Calcium 8.3 MG/DL Troponin I 0.08 NG/ML D-Dimer Quantitative (PE/DVT) 24.65 MG/L FEU Nucleated Red Blood Cells 1 /100 WBC Toxic Granulation 1+ Hematology Comments B-Type Natriuretic Peptide 388 PG/ML Basophilic Stippling FAINT Acanthocytes OCC Random Vancomycin Level 15.5 COMMENT Test 11/26/16 10:42 12/01/16 14:49 12/01/16 21:30 12/03/16 17:50 Blood Urea Nitrogen 18 MG/DL Creatinine 0.53 MG/DL Random Glucose 142 MG/DL Total Protein 5.4 GM/DL Albumin 1.5 GM/DL Calcium Level 7.7 MG/DL Phosphorus Level 2.5 MG/DL Magnesium Level 1.9 MG/DL Alkaline Phosphatase 140 U/L Aspartate Amino Transf (AST/SGOT) 29 U/L Alanine Aminotransferase (ALT/SGPT) 15 U/L Total Bilirubin 2.5 MG/DL Sodium Level 143 MEQ/L Potassium Level 3.2 MEQ/L Chloride Level 110 MEQ/L Carbon Dioxide Level 25.6 MEQ/L Prealbumin 6 MG/DL Blastocytes 1 % Keratocytes OCC Urine Amorphous Sediment RARE Urine Yeast (Budding) MANY Haptoglobin 87 MG/DL Iron Level 41 MCG/DL Total Iron Binding Capacity 161 MCG/DL Percent Iron Saturation 25.5 % Ferritin 399 NG/ML Lactate Dehydrogenase 284 U/L Vitamin B12 Level 1653 PG/ML Test 12/03/16 21:51 12/04/16 09:15 12/05/16 07:03 12/09/16 16:45 Atypical Lymphocytes % Blood Smear Pathologist Review Reticulocyte Count 2.5 % Absolute Reticulocyte Count 89.1 MIL/L Prothrombin Time 11.9 SEC Prothromb Time International Ratio 1.1 RATIO Activated Partial Thromboplast Time 32.0 SEC T-Cell Gene Rearrangement (PCR) Folate 11.7 NG/ML Immunophenotypic Analysis (T) Smudge Cells PRESENT Ovalocytes 1+ Vancomycin Level Trough 15.8 MCG/ML Test 12/11/16 13:31 12/11/16 15:20 12/12/16 07:13 12/13/16 14:46 Ammonia 15 MCMOL/L Blood Gas Puncture Site RT RADIAL Blood Gas Patient Temperature 98.6 Blood Gas HCO3 29 mmol/L Blood Gas Base Excess 5.3 mmol/L Blood Gas Oxygen Saturation 92 % Arterial Blood pH 7.52 Arterial Blood Partial Pressure CO2 35 mmHg Arterial Blood Partial Pressure O2 68 mmHg Arterial Blood Oxygen Content 12.6 Vol % Arterial Blood Carboxyhemoglobin 2.0 % Arterial Blood Methemoglobin 0.6 % Blood Gas Hemoglobin 9.7 G/DL Oxygen Delivery Device RA Blood Gas Inspired Oxygen 21 % Band Neutrophils % 1 % Red Cell Morphology Comment NORMAL Urine Color YELLOW Urine Turbidity HAZY Urine pH 6.0 Urine Specific [place] 1.018 Urine Protein 30 mg/dL Urine Glucose (UA) NEG mg/dL Urine Ketones NEG mg/dL Urine Occult Blood MOD Urine Nitrite NEG Urine Bilirubin NEG Urine Urobilinogen 4.0 MG/DL Urine Leukocyte Esterase MOD Urine RBC 53 /hpf Urine WBC 36 /hpf Urine WBC Clumps RARE Urine Squamous Epithelial Cells <1 /hpf Urine Calcium Oxalate Crystals OCC /hpf Urine Bacteria MOD /hpf Urine Hyaline Casts 7 /lpf Urine Mucus FEW /lpf Microscopic Urinalysis Comment CATH-CULTURE IND Test 12/14/16 08:10 12/14/16 13:50 12/15/16 07:39 12/17/16 08:35 Albumin 2.3 GM/DL Free Phenytoin Level 1.5 mg/L Phosphorus Level 2.9 MG/DL Magnesium Level 1.9 MG/DL White Blood Count 16.8 TH/MM3 Red Blood Count 4.07 MIL/MM3 Hemoglobin 11.9 GM/DL Hematocrit 36.2 % Mean Corpuscular Volume 89.0 FL Mean Corpuscular Hemoglobin 29.1 PG Mean Corpuscular Hemoglobin Concent 32.7 % Red Cell Distribution Width 18.8 % Platelet Count 532 TH/MM3 Mean Platelet Volume 7.2 FL Neutrophils (%) (Auto) 18.2 % Lymphocytes (%) (Auto) 72.6 % Monocytes (%) (Auto) 7.7 % Eosinophils (%) (Auto) 1.0 % Basophils (%) (Auto) 0.5 % Neutrophils # (Auto) 3.1 TH/MM3 Lymphocytes # (Auto) 12.2 TH/MM3 Monocytes # (Auto) 1.3 TH/MM3 Eosinophils # (Auto) 0.2 TH/MM3 Basophils # (Auto) 0.1 TH/MM3 CBC Comment AUTO DIFF Differential Total Cells Counted 100 Neutrophils % (Manual) 42 % Lymphocytes % 34 % Monocytes % 20 % Eosinophils % 1 % Basophils % 1 % Neutrophils # (Manual) 7.4 TH/MM3 Metamyelocytes 1 % Myelocytes 1 % Differential Comment FINAL DIFF MANUAL Platelet Estimate HIGH Platelet Morphology Comment NORMAL Blood Urea Nitrogen 29 MG/DL Creatinine 0.59 MG/DL Random Glucose 178 MG/DL Calcium Level 10.1 MG/DL Sodium Level 137 MEQ/L Potassium Level 4.3 MEQ/L Chloride Level 103 MEQ/L Carbon Dioxide Level 23.9 MEQ/L Anion Gap 10 MEQ/L Estimat Glomerular Filtration Rate 131 ML/MIN Test 12/19/16 07:49 Phenytoin (Dilantin) Level 11.2 MCG/ML Objective Remarks GENERAL: Well-developed patient, in no apparent distress. SKIN: Warm and dry. HEENT: Nose without bleeding. Airway patent. NECK: Trachea midline. Supple. CARDIOVASCULAR: Heart rate irregular, rate wnl without murmurs, gallops, or rubs. RESPIRATORY: Coarse breath sounds BUL. No wheezes, rales, or rhonchi. GASTROINTESTINAL: Abdomen soft, non-tender, nondistended. Bowel Sounds normoactive x4. MUSCULOSKELETAL: Extremities without clubbing, cyanosis, bilateral lower extremity trace edema. NEUROLOGICAL: Drowsy. Moves all extremities weak, confused. Medications and IVs Current Medications Medications (Trade) Dose Ordered Sig/Gregg Route Start Time Stop Time Status Last Admin (Proscar) 5 mg DAILY PO 11/10/16 09:00 12/18/16 09:40 (Flomax) 0.4 mg HS PO 11/10/16 21:00 12/18/16 21:33 (Detrol La) 2 mg DAILY PO 11/10/16 09:00 12/18/16 09:40 (Glucagon Inj) 1 mg UNSCH PRN OTHER 11/09/16 23:45 11/24/16 03:48 (Ativan Inj) 1 mg Q5M PRN IV 11/12/16 00:45 11/12/16 01:45 (Peridex 0.12% Liq) 15 ml BID@08,20 MT 11/12/16 08:00 12/18/16 20:00 (NS Flush) DAILY IVF 11/12/16 09:00 11/28/16 09:22 (NS Flush) UNSCH PRN IVF 11/12/16 08:15 (Prevacid Odt) 30 mg DAILY NG 11/12/16 09:00 12/18/16 09:40 (Colace Liq) 100 mg Q12HR PO 11/12/16 09:00 12/18/16 21:33 (NS Flush) 2 ml UNSCH PRN IV FLUSH 11/12/16 08:30 (NS Flush) 2 ml BID IV FLUSH 11/12/16 09:00 12/18/16 21:00 (Tears Naturale Opth Soln) 1 drop TID EACH EYE 11/12/16 09:00 12/18/16 18:00 (Zofran Inj) 4 mg Q6H PRN IV 11/12/16 08:30 11/15/16 05:45 (Albuterol Neb) 2.5 mg Q2HR NEB PRN INH 11/12/16 08:30 11/29/16 21:19 (Dulcolax Supp) 10 mg DAILY PRN RECTAL 11/12/16 08:30 (Tylenol 650 Mg/ 20 ml Liq) 650 mg Q6H PRN NG 11/12/16 08:45 12/07/16 19:35 Levetriacetam 100 ml @ 400 mls/hr Q8HR IV 11/12/16 22:00 Future Hold 11/30/16 05:35 (Miralax) 17 gm BID OG-TUBE 11/13/16 21:00 12/18/16 21:33 (Lactulose Liq) 30 ml DAILY PO 11/14/16 09:00 Future Hold 12/02/16 09:54 (Glycerin Adult Supp) 2 gm BID PRN RECTAL 11/13/16 15:00 (Apresoline Inj) 20 mg Q4H PRN IV PUSH 11/14/16 02:15 11/14/16 03:07 Fosphenytoin Sodium 100 mgpe/ Sodium Chloride 52 ml @ 208 mls/hr Q6HR IV 11/18/16 13:00 Future Hold 11/30/16 13:10 (Brethine Inj) 1 mg UNSCH PRN SQ 11/20/16 16:30 (Lasix Inj) 40 mg DAILY IV PUSH 11/22/16 11:00 12/18/16 09:00 (D50w (Syr) Inj) 50 ml UNSCH PRN IV 11/25/16 09:30 11/25/16 09:46 (Megace Liq) 400 mg DAILY PO 11/26/16 09:00 12/18/16 09:40 (Keppra) 1,000 mg Q8HR PO 11/30/16 22:00 12/19/16 05:41 (Bactroban 2% Cream) 1 applic Q12HR TOPICAL 12/02/16 21:00 12/18/16 21:00 (Santyl Oint) 1 applic DAILY TOPICAL 12/04/16 12:00 12/18/16 09:00 (Levsin) 0.125 mg Q4H PRN PO 12/04/16 11:30 (Heparin Central Flush) 200 units DAILY IV FLUSH 12/05/16 12:00 (Tylenol 160 Mg/ 5 ml Liq) 650 mg Q4H PRN PO 12/11/16 11:00 12/14/16 02:33 (Lopressor) 25 mg Q8HR PO 12/13/16 00:45 12/19/16 05:41 (Dilantin) 100 mg TID PO 12/14/16 13:00 12/18/16 18:26 (NovoLIN R SUPPLEMENTAL SCALE) 1 ACHS SLIDING SCALE SQ 12/16/16 12:00 12/18/16 21:00 (Norvasc) 5 mg DAILY PO 12/17/16 12:00 12/18/16 09:40 (Levemir Inj) 5 units Q12H SQ 12/17/16 12:00 12/19/16 00:19 A/P Assessment and Plan 80 y/o with a history of HTN, DM, and BPH presented to the ED after a fall at home, with a LOC for 10-15 mins. Closed head injury Subdural hematoma Bilateral intracranial hemorrhaging - Managed by neurosurgery and no indication for surgery. - Neuro checks, seizure precautions - Keppra and Cerebyx on hold. Metabolic encephalopathy-improving - head CT 12/01/16 showed Bilateral hypodense subdural hematomas are seen in the occipital region and along the tentorium cerebelli on the right as well as small right frontal subdural hematoma unchanged. The left frontal parenchymal bleed is decreased in density with a small amount of edema identified. There is atrophy and moderate confluent hypodense white matter disease in the periventricular regions. The right frontal and left insular bleeds are much less conspicuous with a small amount of residual high density in the right frontal region with a small amount of surrounding edema. There is no midline shift or mass effect. Vascular calcifications are noted. No fractures. Anemia - WBC 15.2 -->13.4 --> 16.4 --> 13.0 - Hematology following. Ordered other testing R/O other bone marrow abnormality. Follow results. - Blood cultures no growth in 5 days. DC Vanco as planned. - Continue to trend WBC. 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 Atrial fibrillation Hypertension - Continue with Lopressor 25mg BID, increase to TID for better rate control and BP control - Oral anticoagulation contraindicated secondary to intracranial bleed - Monitor BP Trend, HR Decubitus ulcer, DTI sacral area - Continue Santyl - Wound care following. Recommends mable thick coverage of Santyl ointment. 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 Diabetes mellitus - hemoglobin A1c 6.0 - ISS. Uncontrolled blood sugars, will continue sliding scale increased Levemir to 10 units BID. Occlusive DVT in cephalic vein right upper extremity - Hematology consultation appreciated however oral anticoagulation contraindicated - Avoid IV access RUE Urinary tract infection - off Azactam 1 g IV every 12H - on Diflucan 100 mg by mouth daily 12/03/16 secondary to been culture positive for Jane, Stop 12/18/16 will follow Urinalysis and culture, he has Noriega cath high risk for reinfection. Generalized weakness, prolonged hospitalization - Attempts by PT unsuccessful because he is drowsy in AM. Waking hours at night, improving Prophylaxis GI - lanosprazole DVT - SCD/pharmacological prophylaxis when okay with neurosurgery Discharge Planning Staffing Account Manager working the discharge. Kameron Mcfarland MD Dec 19, 2016 10:11
[2016-12-19] MEDS ORDERED: INSULIN DETEMIR 100 UNITS/ML VIAL SQ ONE (11:15)
[2016-12-19 12:00] VITALS: BP 133/78; PULSE 107; RESP 18; TEMP 98.1; O2SAT 96
--- NOTE | 2016-12-19 14:41 | PD.WCN.NOT ---
Wound Consult Description: Follow up for sacral DTI that is now opened to unstageable pressure injury Communicated with: JAYDEN Bright and Doctor Ilia Recommendation: Please continue to cleanse unstageable pressure injury to sacral area with normal saline only. Apply mable thick coverage of santyl ointment to wound bed on sacral area and cover with Slightly moistened Maxorb II (Calcium alginate) dressing. Cover with ABD pad secured with tape or cover with bordered gauze. Please apply skin prep to periwound before applying adhesive to skin.Please change dressing daily Additional Information: Patient seen on for follow up of sacral DTI opened to unstageable pressure injury.Patient positioned to R side with the assistance of Deangelo CARPENTER [address] [place] [id number] and [employer] to reveal wound to sacral area. Wound measures ~4cm x ~4cm x slough. Wound bed presents with ~20% coverage yellow adherent slough and ~80% pink tissue.Wound already covered with Santyl ointment that was applied by Deangelo CARPENTER [address] [place] [phone] Wound is noted with a round shape and well defined wound margins that appear attached. Wound drainage is minimal and sero-sanguinous without odor.Patient cleansed of stool from bowel small bowel movement, with soap and water.Applied slightly moistened maxorb II (Calcium alginate) over wound bed and covered wound with bordered gauze. Applied skin prep to periwound before applying bordered gauze.Wound appears overall improved today. Ashley Ghotra [facility] Dec 19, 2016 14:41
[2016-12-19 16:00] VITALS: BP 144/78; PULSE 95; RESP 18; TEMP 97.4; O2SAT 98
[2016-12-19] MEDS: TAMSULOSIN HCL 0.4 MG CAP PO SCH (20:34)
[2016-12-19 20:48] VITALS: BP 160/94; PULSE 93; RESP 18; TEMP 97.5; O2SAT 99
[2016-12-20 01:08] VITALS: BP 181/92; PULSE 95; RESP 18; TEMP 97.5; O2SAT 100
[2016-12-20] MEDS: ACETAMINOPHEN 650 MG/20.3 ML UDC NG PRN (02:14)
[2016-12-20 04:00] VITALS: BP 135/72; PULSE 88; RESP 18; TEMP 97.5; O2SAT 97
[2016-12-20] MEDS: METOPROLOL TARTRATE 25 MG TAB PO SCH ×3 (06:09→21:47)
[2016-12-20] MEDS: levETIRAcetam 500 MG TAB PO SCH ×3 (06:09→21:47)
[2016-12-20 08:00] VITALS: BP 156/87; PULSE 95; RESP 20; TEMP 97.5; O2SAT 99
[2016-12-20] MEDS: CHLORHEXIDINE 0.12% (ORAL KIT) 15 ML CUP MT SCH ×2 (08:00→20:00)
[2016-12-20] MEDS: INSULIN NovoLIN REGULAR SUPPLEMENTAL SCALE SQ SCH ×4 (08:00→21:00)
[2016-12-20 08:38] LABS: POTASSIUM 3.6 MEQ/L (3.5-5.1)
[2016-12-20] MEDS: MUPIROCIN 2% CREAM 15 GM TOPICAL SCH ×2 (09:00→20:36)
[2016-12-20] MEDS: DOCUSATE SODIUM 100 MG/10 ML UDC PO SCH ×2 (09:00→20:35)
[2016-12-20] MEDS: SODIUM CHLORIDE 0.9% FLUSH 10 ML FLUSH IVF SCH (09:00)
[2016-12-20] MEDS: COLLAGENASE OINT 30 GM TUBE TOPICAL SCH ×2 (09:00)
[2016-12-20] MEDS: POLYETHYLENE GLYCOL 17 GM PKG OG-TUBE SCH ×2 (09:00→20:35)
[2016-12-20] MEDS: ARTIFICIAL TEARS OPTH SOLN 15 ML BTL EACH EYE SCH ×3 (09:00→17:24)
--- NOTE | 2016-12-20 09:02 | HHI.NSPN ---
History Chief Complaint: Unable to obtain due to patient's clinical condition. Interval History 11/09: 80-year-old male who according to his family was going up a step into the house with his cane when he fell backwards, striking the back of his head. He was reportedly unconscious for 10-15 minutes. He then had some shaking in the extremities as he was waking up. He has been somewhat sleepy and a little confused since he woke up at the patient's family states that he is conversing reasonably well with them. He normally is fairly independent, ambulating with a cane and is usually mentally alert with only mild memory loss. Positive emesis reported. Patient has no complaint of headache or neck pain. No complaint of low back or joint pain. 11/10: nursing reports agitated overnight, currently sleeping. f/u CT Head completed, moves all four extremities. son translated - oriented to name and place only. 11/11: Notified by PARVIN Stoner, that Nursing had notified her that the patient's mental status was worse this morning and that she had ordered a stat CT brain. When seen this morning the patient is obtunded and not answering to verbal stimuli. Nursing reports that CT had called and was sending someone up to transport the patient to the scanner. She stated that the patient did receive morphine and hydrocodone during the night for pain because he was agitated. 11/12: The patient has been intubated this morning due to persistent decreased mental status. Possibly a few more episodes of seizure activity reported last evening. He is continuing on Dilantin and Keppra for seizures. 11/13: The patient still is intubated, mechanically ventilated and sedated with midazolam. He does not respond to noxious stimulation. The EEG done yesterday morning did demonstrate seizure activity. Neurology evaluated the patient yesterday and adjusted his anti-epileptic medications. An EEG was done this morning prior to the patient being seen. 11/14: The patient remains intubated. A midazolam drip is still infusing as is a fentanyl drip. A repeat Ct brain this morning demonstrated evolving contusions and haemorrhages. 11/15: The patient is intubated without any sedation. The midazolam and fentanyl infusions were discontinued yesterday. A 3% saline drip continues to infuse. He did have a slight twitching of the eyelids when his name was called but no eye opening. 11/16: This morning the patient opened his eyes to verbal stimulation. He continues to be intubated without any sedation. 11/17/16: Patient remains intubated. He had a dose of intravenous sedation last night for agitation. Remains relatively alert. Positive fever last evening. Some difficulty with hemodynamic instability last evening. 11/18: The patient is on a cooling blanket with ice packs when seen this morning. He continues to be intubated. He does look to whomever is speaking and did follow commands. 11/19: The patient is asleep but awakens on his own. He was extubated this morning and is now on a nasal cannula. He follows commands and moves all his extremities to a degree. He does tell his daughter that he is tired. The family reports earlier that the patient did ask where his and son were by name. 11/20: When seen this afternoon the patient had just been transferred to a regular med/surg floor. He appears mildly distressed and is moaning. His daughter states that he has said he has pain all over. 11/21: Notified by [facility] physician (Dr Mejia, PGY1) that patient was having increased respiratory effort. He reported that the patient's oxygen saturation was satisfactory but the chest x-ray demonstrated fluid overload. Therefore 40 mg furosemide IV was ordered as was a nebuliser treatment. When seen the patient appeared moderately distress and had just received the furosemide with the nebuliser treatment ongoing. The Charge Nurse reported that the patient was lethargic and not responding to commands. He reported that the [employer] Operator is aware that the patient is being transferred to [facility] for further care and management. The Hospitalist was present and evaluating the patient. 11/22: Patient not opening eyes or following commands. Not verbalizing. 11/23: Pt opens eyes and tracks around room. He is restless. Not following commands for staff or reportedly family. Pt not verbalizing. 12/04: Pt opens eyes. Not following commands. Not verbalizing. 12/20: Pt awake being fed by family. follows commands for family at bedside moves toes and whipper hands. System Review Comments Not able to obtain given clinical exam. Exam Results Vital Signs Date Time Temp Pulse Resp B/P (MAP) Pulse Ox O2 Delivery O2 Flow Rate FiO2 12/20/16 08:00 97.5 95 20 156/87 (110) 99 Intake and Output 12/20/16 12/20/16 12/21/16 08:00 16:00 00:00 Output Total 600 ml Balance -600 ml Physical Examination Resp: CTA bilaterally Heart: NSR no murmurs Abd: Soft positive bs Skin: No cyanosis or erythema Muscle: Moves toes and whipper hands to command. Neuro: Pt awake and alert. Follows commands for family. Not verbalizing. Lab, Micro, Other Results Laboratory Tests Test 12/20/16 08:03 Potassium Level 3.6 MEQ/L Phosphorus Level 3.2 MG/DL Magnesium Level 2.0 MG/DL Medical Decision Making Impression and Plan Impression: 1. Traumatic brain injury 2. Hypertension 3. Diabetes 4. Respiratory failure 5. Seizures Plan: Continue with neuro checks. Non-chemical DVT prophylaxis. Ulcer prophylaxis. Continue rehabilitation efforts Discussed plan of care with hospitalist. Family working on getting approval for transfer to [place]. Chay Alvarez Dec 20, 2016 9:02 am
--- NOTE | 2016-12-20 09:20 | HHI.PR ---
Subjective Remarks Follow up visit SDH, UE DVT, HTN, DM2. Patient seen and examined today. Patient is laying in bed. Continues to be drowsy and lethargic. Grimaces to pain. Occasional cough noted. As per nursing, no acute issues overnight. Patient was out of bed yesterday for about 2 hours with physical therapy. Appears comfortable. 12/16: Stable in his bedroom, in sitting position and sometimes seen in chair. continue confused. no nausea, vomit or diarrhea his Daughter by his side. 12/17: Seen in his bedroom in the presence of His Daughter and Daughter, they asked me about his father and consulted to Palliative care consult placed but they want to continue Aggressive management at this time. 12/18: Stable, Lethargic and weak as per her Daughter in the room, Mrs. Cardozo. No Nausea, vomit or diarrhea. 12/19: Seen with his Son in the room Mr. Sanders, stable no changes to anterior assessment, has Noriega cath in place, adjusted Insulin due to uncontrolled blood sugar. 12/20: Seen in the presence of his Daughter no new issues, discussed with Neurosurgery specialist PARVIN, awaiting for [employer] approval to come back to [place], no nausea, vomit or diarrhea, improving as per Neurosurgery. Objective Vital Signs Date Time Temp Pulse Resp B/P (MAP) Pulse Ox O2 Delivery O2 Flow Rate FiO2 12/20/16 08:00 97.5 95 20 156/87 (110) 99 12/20/16 04:00 97.5 88 18 135/72 (93) 97 12/20/16 01:08 97.5 95 18 181/92 (121) 100 12/19/16 20:48 97.5 93 18 160/94 (116) 99 12/19/16 16:00 97.4 95 18 144/78 (100) 98 12/19/16 12:00 98.1 107 18 133/78 (96) 96 I/O 12/19/16 12/19/16 12/19/16 12/20/16 12/20/16 12/20/16 06:59 14:59 22:59 06:59 14:59 22:59 Intake Total 480 ml Output Total 400 ml 600 ml Balance 80 ml -600 ml Intake Oral 480 ml Output Urine Total 400 ml 600 ml # Bowel Movements 2 1 2 Result Diagram: 12/17/16 0835 12/20/16 0803 Imaging Last Impressions Brain MRI 12/13/16 0000 Signed Impressions: Service Date/Time: Tuesday, December 13, 2016 12:20 - CONCLUSION: 1. The examination demonstrates multiple small areas of intraparenchymal and extra-axial hemorrhage as described above. These areas are more apparent on the patient's MRI examination than on the CT. Direct comparison is made. The areas of edema and hemorrhage appear similar though they are isointense on the CT. 2. 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 There is cortical atrophy. Anthony Burns MD Chest X-Ray 12/04/16 0000 Signed Impressions: Service Date/Time: November 11:58 - CONCLUSION: Improving aeration. Lonnie Blanchard MD Upper Extremity Ultrasound 12/02/16 0000 Signed Impressions: Service Date/Time: Saturday, December 03, 2016 00:53 - CONCLUSION: 1. Occlusive DVT in the cephalic and basilic vein on the right. Alex Goode MD Head CT 12/01/16 0000 Signed Impressions: Service Date/Time: Thursday, December 01, 2016 13:14 - CONCLUSION: Evolving intracranial hemorrhagic foci as above, both intra-axial and extra-axial. Jesus Lee MD Modified Barium Swallow 11/30/16 0000 Signed Impressions: Service Date/Time: Wednesday, November 30, 2016 00:00 - CONCLUSION: Please refer to speech pathology report for full details. Lonnie Cook MD Transcranial Doppler Study Complete 11/17/16 0000 Signed Impressions: Service Date/Time: Thursday, November 17, 2016 10:03 - CONCLUSION: 1. Nondiagnostic examination due to poor transcranial windows. Konstantin Dash MD Abdomen X-Ray 11/12/16 0000 Signed Impressions: Service Date/Time: Saturday, November 12, 2016 08:23 - CONCLUSION: 1. Gastric tube in good position. 2. Probable right renal stones. Narayan Coulter MD Cervical Spine CT 11/09/161950 Signed Impressions: Service Date/Time: Wednesday, November 09, 2016 20:14 - CONCLUSION: Negative trauma CT. Cj Isidro MD Procedures None Other Results Laboratory Tests Test 11/09/16 20:05 11/10/16 02:50 11/12/16 09:12 11/15/16 18:19 Hemoglobin A1c 6.0 % Nasal Screen MRSA (PCR) MRSA NOT DETECTED Fibrinogen 432 mg/dL Serum Osmolality 327 MOSM/KG Test 11/17/16 06:05 11/18/16 14:21 11/19/16 10:20 11/21/16 09:15 Blood Gas Ventilator Setting PRVC / AC / Plasma Cells % Thyroid Stimulating Hormone 3rd Gen 1.040 uIU/ML Blood Gas Liter Flow 15 L/M Test 11/21/16 09:32 11/21/16 14:30 11/22/16 06:11 11/24/16 07:39 Lactic Acid Level 1.5 mmol/L Protein Corrected Calcium 8.3 MG/DL Troponin I 0.08 NG/ML D-Dimer Quantitative (PE/DVT) 24.65 MG/L FEU Nucleated Red Blood Cells 1 /100 WBC Toxic Granulation 1+ Hematology Comments B-Type Natriuretic Peptide 388 PG/ML Basophilic Stippling FAINT Acanthocytes OCC Random Vancomycin Level 15.5 COMMENT Test 11/26/16 10:42 12/01/16 14:49 12/01/16 21:30 12/03/16 17:50 Blood Urea Nitrogen 18 MG/DL Creatinine 0.53 MG/DL Random Glucose 142 MG/DL Total Protein 5.4 GM/DL Albumin 1.5 GM/DL Calcium Level 7.7 MG/DL Phosphorus Level 2.5 MG/DL Magnesium Level 1.9 MG/DL Alkaline Phosphatase 140 U/L Aspartate Amino Transf (AST/SGOT) 29 U/L Alanine Aminotransferase (ALT/SGPT) 15 U/L Total Bilirubin 2.5 MG/DL Sodium Level 143 MEQ/L Potassium Level 3.2 MEQ/L Chloride Level 110 MEQ/L Carbon Dioxide Level 25.6 MEQ/L Prealbumin 6 MG/DL Blastocytes 1 % Keratocytes OCC Urine Amorphous Sediment RARE Urine Yeast (Budding) MANY Haptoglobin 87 MG/DL Iron Level 41 MCG/DL Total Iron Binding Capacity 161 MCG/DL Percent Iron Saturation 25.5 % Ferritin 399 NG/ML Lactate Dehydrogenase 284 U/L Vitamin B12 Level 1653 PG/ML Test 12/03/16 21:51 12/04/16 09:15 12/05/16 07:03 12/09/16 16:45 Atypical Lymphocytes % Blood Smear Pathologist Review Reticulocyte Count 2.5 % Absolute Reticulocyte Count 89.1 MIL/L Prothrombin Time 11.9 SEC Prothromb Time International Ratio 1.1 RATIO Activated Partial Thromboplast Time 32.0 SEC T-Cell Gene Rearrangement (PCR) Folate 11.7 NG/ML Immunophenotypic Analysis (T) Smudge Cells PRESENT Ovalocytes 1+ Vancomycin Level Trough 15.8 MCG/ML Test 12/11/16 13:31 12/11/16 15:20 12/12/16 07:13 12/13/16 14:46 Ammonia 15 MCMOL/L Blood Gas Puncture Site RT RADIAL Blood Gas Patient Temperature 98.6 Blood Gas HCO3 29 mmol/L Blood Gas Base Excess 5.3 mmol/L Blood Gas Oxygen Saturation 92 % Arterial Blood pH 7.52 Arterial Blood Partial Pressure CO2 35 mmHg Arterial Blood Partial Pressure O2 68 mmHg Arterial Blood Oxygen Content 12.6 Vol % Arterial Blood Carboxyhemoglobin 2.0 % Arterial Blood Methemoglobin 0.6 % Blood Gas Hemoglobin 9.7 G/DL Oxygen Delivery Device RA Blood Gas Inspired Oxygen 21 % Band Neutrophils % 1 % Red Cell Morphology Comment NORMAL Urine Color YELLOW Urine Turbidity HAZY Urine pH 6.0 Urine Specific [place] 1.018 Urine Protein 30 mg/dL Urine Glucose (UA) NEG mg/dL Urine Ketones NEG mg/dL Urine Occult Blood MOD Urine Nitrite NEG Urine Bilirubin NEG Urine Urobilinogen 4.0 MG/DL Urine Leukocyte Esterase MOD Urine RBC 53 /hpf Urine WBC 36 /hpf Urine WBC Clumps RARE Urine Squamous Epithelial Cells <1 /hpf Urine Calcium Oxalate Crystals OCC /hpf Urine Bacteria MOD /hpf Urine Hyaline Casts 7 /lpf Urine Mucus FEW /lpf Microscopic Urinalysis Comment CATH-CULTURE IND Test 12/14/16 08:10 12/14/16 13:50 12/17/16 08:35 12/19/16 07:49 Albumin 2.3 GM/DL Free Phenytoin Level 1.5 mg/L White Blood Count 16.8 TH/MM3 Red Blood Count 4.07 MIL/MM3 Hemoglobin 11.9 GM/DL Hematocrit 36.2 % Mean Corpuscular Volume 89.0 FL Mean Corpuscular Hemoglobin 29.1 PG Mean Corpuscular Hemoglobin Concent 32.7 % Red Cell Distribution Width 18.8 % Platelet Count 532 TH/MM3 Mean Platelet Volume 7.2 FL Neutrophils (%) (Auto) 18.2 % Lymphocytes (%) (Auto) 72.6 % Monocytes (%) (Auto) 7.7 % Eosinophils (%) (Auto) 1.0 % Basophils (%) (Auto) 0.5 % Neutrophils # (Auto) 3.1 TH/MM3 Lymphocytes # (Auto) 12.2 TH/MM3 Monocytes # (Auto) 1.3 TH/MM3 Eosinophils # (Auto) 0.2 TH/MM3 Basophils # (Auto) 0.1 TH/MM3 CBC Comment AUTO DIFF Differential Total Cells Counted 100 Neutrophils % (Manual) 42 % Lymphocytes % 34 % Monocytes % 20 % Eosinophils % 1 % Basophils % 1 % Neutrophils # (Manual) 7.4 TH/MM3 Metamyelocytes 1 % Myelocytes 1 % Differential Comment FINAL DIFF MANUAL Platelet Estimate HIGH Platelet Morphology Comment NORMAL Blood Urea Nitrogen 29 MG/DL Creatinine 0.59 MG/DL Random Glucose 178 MG/DL Calcium Level 10.1 MG/DL Sodium Level 137 MEQ/L Potassium Level 4.3 MEQ/L Chloride Level 103 MEQ/L Carbon Dioxide Level 23.9 MEQ/L Anion Gap 10 MEQ/L Estimat Glomerular Filtration Rate 131 ML/MIN Phenytoin (Dilantin) Level 11.2 MCG/ML Test 12/20/16 08:03 Potassium Level 3.6 MEQ/L Phosphorus Level 3.2 MG/DL Magnesium Level 2.0 MG/DL Objective Remarks GENERAL: Well-developed patient, in no apparent distress. SKIN: Warm and dry. HEENT: Nose without bleeding. Airway patent. NECK: Trachea midline. Supple. MUSCULOSKELETAL: Extremities without clubbing, cyanosis NEUROLOGICAL: Drowsy. Moves all extremities weak, confused. Medications and IVs Current Medications Medications (Trade) Dose Ordered Sig/Gregg Route Start Time Stop Time Status Last Admin (Proscar) 5 mg DAILY PO 11/10/16 09:00 12/19/16 09:56 (Flomax) 0.4 mg HS PO 11/10/16 21:00 12/19/16 20:34 (Detrol La) 2 mg DAILY PO 11/10/16 09:00 12/19/16 09:00 (Glucagon Inj) 1 mg UNSCH PRN OTHER 11/09/16 23:45 11/24/16 03:48 (Ativan Inj) 1 mg Q5M PRN IV 11/12/16 00:45 11/12/16 01:45 (Peridex 0.12% Liq) 15 ml BID@08,20 MT 11/12/16 08:00 12/19/16 20:00 (NS Flush) DAILY IVF 11/12/16 09:00 11/28/16 09:22 (NS Flush) UNSCH PRN IVF 11/12/16 08:15 (Prevacid Odt) 30 mg DAILY NG 11/12/16 09:00 12/19/16 09:57 (Colace Liq) 100 mg Q12HR PO 11/12/16 09:00 12/19/16 20:34 (NS Flush) 2 ml UNSCH PRN IV FLUSH 11/12/16 08:30 (NS Flush) 2 ml BID IV FLUSH 11/12/16 09:00 12/19/16 20:34 (Tears Naturale Opth Soln) 1 drop TID EACH EYE 11/12/16 09:00 12/19/16 18:00 (Zofran Inj) 4 mg Q6H PRN IV 11/12/16 08:30 11/15/16 05:45 (Albuterol Neb) 2.5 mg Q2HR NEB PRN INH 11/12/16 08:30 11/29/16 21:19 (Dulcolax Supp) 10 mg DAILY PRN RECTAL 11/12/16 08:30 (Tylenol 650 Mg/ 20 ml Liq) 650 mg Q6H PRN NG 11/12/16 08:45 12/20/16 02:14 Levetriacetam 100 ml @ 400 mls/hr Q8HR IV 11/12/16 22:00 Future Hold 11/30/16 05:35 (Miralax) 17 gm BID OG-TUBE 11/13/16 21:00 12/19/16 20:34 (Lactulose Liq) 30 ml DAILY PO 11/14/16 09:00 Future Hold 12/02/16 09:54 (Glycerin Adult Supp) 2 gm BID PRN RECTAL 11/13/16 15:00 (Apresoline Inj) 20 mg Q4H PRN IV PUSH 11/14/16 02:15 11/14/16 03:07 Fosphenytoin Sodium 100 mgpe/ Sodium Chloride 52 ml @ 208 mls/hr Q6HR IV 11/18/16 13:00 Future Hold 11/30/16 13:10 (Brethine Inj) 1 mg UNSCH PRN SQ 11/20/16 16:30 (Lasix Inj) 40 mg DAILY IV PUSH 11/22/16 11:00 12/19/16 09:57 (D50w (Syr) Inj) 50 ml UNSCH PRN IV 11/25/16 09:30 11/25/16 09:46 (Megace Liq) 400 mg DAILY PO 11/26/16 09:00 12/19/16 09:57 (Keppra) 1,000 mg Q8HR PO 11/30/16 22:00 12/20/16 06:09 (Bactroban 2% Cream) 1 applic Q12HR TOPICAL 12/02/16 21:00 12/19/16 20:37 (Santyl Oint) 1 applic DAILY TOPICAL 12/04/16 12:00 12/18/16 09:00 (Levsin) 0.125 mg Q4H PRN PO 12/04/16 11:30 (Heparin Central Flush) 200 units DAILY IV FLUSH 12/05/16 12:00 (Tylenol 160 Mg/ 5 ml Liq) 650 mg Q4H PRN PO 12/11/16 11:00 12/14/16 02:33 (Lopressor) 25 mg Q8HR PO 12/13/16 00:45 12/20/16 06:09 (Dilantin) 100 mg TID PO 12/14/16 13:00 12/19/16 18:19 (NovoLIN R SUPPLEMENTAL SCALE) 1 ACHS SLIDING SCALE SQ 12/16/16 12:00 12/19/16 20:34 (Norvasc) 5 mg DAILY PO 12/17/16 12:00 12/19/16 09:56 (Levemir Inj) 10 units Q12H SQ 12/19/16 12:00 12/20/16 00:00 (Santyl Oint) 1 applic DAILY TOPICAL 12/19/16 14:45 12/19/16 14:50 A/P Assessment and Plan 80 y/o with a history of HTN, DM, and BPH presented to the ED after a fall at home, with a LOC for 10-15 mins. Closed head injury Subdural hematoma Bilateral intracranial hemorrhaging - Managed by neurosurgery and no indication for surgery. - Neuro checks, seizure precautions - Keppra and Cerebyx on hold. Metabolic encephalopathy-improving - head CT 12/01/16 showed Bilateral hypodense subdural hematomas are seen in the occipital region and along the tentorium cerebelli on the right as well as small right frontal subdural hematoma unchanged. The left frontal parenchymal bleed is decreased in density with a small amount of edema identified. There is atrophy and moderate confluent hypodense white matter disease in the periventricular regions. The right frontal and left insular bleeds are much less conspicuous with a small amount of residual high density in the right frontal region with a small amount of surrounding edema. There is no midline shift or mass effect. Vascular calcifications are noted. No fractures. Anemia - WBC 15.2 -->13.4 --> 16.4 --> 13.0 - Hematology following. Ordered other testing R/O other bone marrow abnormality. Follow results. - Blood cultures no growth in 5 days. DC Vanco as planned. - Continue to trend WBC. 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 Atrial fibrillation Hypertension - Continue with Lopressor 25mg BID, increase to TID for better rate control and BP control - Oral anticoagulation contraindicated secondary to intracranial bleed - Monitor BP Trend, HR Decubitus ulcer, DTI sacral area - Continue Santyl - Wound care following. Recommends mable thick coverage of Santyl ointment. 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 Diabetes mellitus - hemoglobin A1c 6.0 - ISS. Uncontrolled blood sugars, will continue sliding scale increased Levemir to 10 units BID. Occlusive DVT in cephalic vein right upper extremity - Hematology consultation appreciated however oral anticoagulation contraindicated - Avoid IV access RUE Urinary tract infection - off Azactam 1 g IV every 12H - on Diflucan 100 mg by mouth daily 12/03/16 secondary to been culture positive for Jane, Stop 12/18/16 will follow Urinalysis and culture, he has Noriega cath high risk for reinfection. Electrolyte derangement replaced. Prophylaxis GI - lanosprazole DVT - SCD/pharmacological prophylaxis when okay with neurosurgery Discussed with Patient and his Daughter in the room, also with Neurosurgery PARVIN Alvarez appreciated input. Discharge Planning Maintenance Carpenter working the discharge. Kameron Mcfarland MD Dec 20, 2016 09:20
[2016-12-20] MEDS ORDERED: POTASSIUM CHLORIDE 25 MEQ EFFERVESCENT TAB PO ONE (10:00)
[2016-12-20] MEDS: LANSOPRAZOLE SOLUTAB 30 MG TAB NG SCH (10:24)
[2016-12-20] MEDS: PHENYTOIN SODIUM 100 MG CAP PO SCH ×3 (10:25→17:24)
[2016-12-20] MEDS: TOLTERODINE TARTRATE 2 MG CAP LA PO SCH (10:25)
[2016-12-20] MEDS: FINASTERIDE 5 MG TAB PO SCH (10:25)
[2016-12-20] MEDS: amLODIPine BESYLATE 5 MG TAB PO SCH (10:25)
[2016-12-20] MEDS: MEGESTROL ACETATE SUSP 400 MG/10 ML CUP PO SCH (10:25)
[2016-12-20] MEDS: FUROSEMIDE 40 MG/4 ML VIAL IV PUSH SCH (10:26)
[2016-12-20] MEDS: SODIUM CHLORIDE 0.9% FLUSH 10 ML FLUSH IV FLUSH SCH ×2 (10:28→20:36)
[2016-12-20 12:00] VITALS: BP 139/74; PULSE 99; RESP 20; TEMP 97.7; O2SAT 98
[2016-12-20] MEDS: INSULIN DETEMIR 100 UNITS/ML VIAL SQ SCH ×2 (12:00)
[2016-12-20 16:00] VITALS: BP 151/79; PULSE 97; RESP 20; TEMP 98.3; O2SAT 98
[2016-12-20] MEDS: TAMSULOSIN HCL 0.4 MG CAP PO SCH (20:35)
[2016-12-20 20:54] VITALS: BP 131/77; PULSE 94; RESP 18; TEMP 98.3; O2SAT 98
[2016-12-21 00:37] VITALS: BP 142/76; PULSE 97; RESP 18; TEMP 97.7; O2SAT 99
[2016-12-21 05:30] VITALS: BP 131/87; PULSE 108; RESP 18; TEMP 97.4; O2SAT 97
[2016-12-21] MEDS: METOPROLOL TARTRATE 25 MG TAB PO SCH ×3 (06:29→21:23)
[2016-12-21] MEDS: levETIRAcetam 500 MG TAB PO SCH ×3 (06:31→21:23)
[2016-12-21] MEDS: INSULIN NovoLIN REGULAR SUPPLEMENTAL SCALE SQ SCH ×4 (07:29→21:00)
[2016-12-21 08:00] VITALS: BP 135/67; PULSE 105; RESP 16; TEMP 97.7; O2SAT 96
[2016-12-21] MEDS: CHLORHEXIDINE 0.12% (ORAL KIT) 15 ML CUP MT SCH ×2 (08:00→21:38)
[2016-12-21] MEDS: ARTIFICIAL TEARS OPTH SOLN 15 ML BTL EACH EYE SCH ×3 (08:32→17:51)
[2016-12-21] MEDS: MUPIROCIN 2% CREAM 15 GM TOPICAL SCH ×2 (08:33→21:00)
[2016-12-21] MEDS: MEGESTROL ACETATE SUSP 400 MG/10 ML CUP PO SCH (08:35)
[2016-12-21] MEDS: FUROSEMIDE 40 MG/4 ML VIAL IV PUSH SCH (08:37)
[2016-12-21] MEDS: SODIUM CHLORIDE 0.9% FLUSH 10 ML FLUSH IVF SCH (08:39)
[2016-12-21] MEDS: SODIUM CHLORIDE 0.9% FLUSH 10 ML FLUSH IV FLUSH SCH ×2 (08:39→21:24)
[2016-12-21] MEDS: LANSOPRAZOLE SOLUTAB 30 MG TAB NG SCH (08:40)
[2016-12-21] MEDS: POLYETHYLENE GLYCOL 17 GM PKG OG-TUBE SCH ×2 (08:41→21:00)
[2016-12-21] MEDS: DOCUSATE SODIUM 100 MG/10 ML UDC PO SCH ×2 (08:41→21:00)
[2016-12-21] MEDS: TOLTERODINE TARTRATE 2 MG CAP LA PO SCH (08:42)
[2016-12-21] MEDS: PHENYTOIN SODIUM 100 MG CAP PO SCH ×3 (08:42→17:51)
[2016-12-21] MEDS: FINASTERIDE 5 MG TAB PO SCH (08:44)
[2016-12-21] MEDS: amLODIPine BESYLATE 5 MG TAB PO SCH (08:45)
[2016-12-21] MEDS: INSULIN DETEMIR 100 UNITS/ML VIAL SQ SCH ×2 (08:47→21:00)
[2016-12-21] MEDS: COLLAGENASE OINT 30 GM TUBE TOPICAL SCH ×2 (08:48)
[2016-12-21 11:30] VITALS: BP 120/73; PULSE 104; RESP 17; TEMP 97.9; O2SAT 99
--- NOTE | 2016-12-21 13:08 | HHI.PR ---
Subjective Remarks Follow up visit SDH, UE DVT, HTN, DM2. Patient seen and examined today. Patient is laying in bed. Continues to be drowsy and lethargic. Grimaces to pain. Occasional cough noted. As per nursing, no acute issues overnight. Patient was out of bed yesterday for about 2 hours with physical therapy. Appears comfortable. 12/16: Stable in his bedroom, in sitting position and sometimes seen in chair. continue confused. no nausea, vomit or diarrhea his Daughter by his side. 12/17: Seen in his bedroom in the presence of His Daughter and Daughter, they asked me about his father and consulted to Palliative care consult placed but they want to continue Aggressive management at this time. 12/18: Stable, Lethargic and weak as per her Daughter in the room, Mrs. Cardozo. No Nausea, vomit or diarrhea. 12/19: Seen with his Son in the room Mr. Sanders, stable no changes to anterior assessment, has Noriega cath in place, adjusted Insulin due to uncontrolled blood sugar. 12/20: Seen in the presence of his Daughter no new issues, discussed with Neurosurgery specialist PARVIN, awaiting for [facility] approval to come back to [place], no nausea, vomit or diarrhea, improving as per Neurosurgery 12-21 NOT BEEN CLEARED TO GO HOME YET, AWAIT CLEARANCE BY HIS EMBASSY TOLERATING A DIET BUT VERY SLOW TO EAT IT Objective Vitals Vital Signs Date Time Temp Pulse Resp B/P (MAP) Pulse Ox O2 Delivery O2 Flow Rate FiO2 12/21/16 11:30 97.9 104 17 120/73 (89) 99 12/21/16 08:00 97.7 105 16 135/67 (89) 96 12/21/16 05:30 97.4 108 18 131/87 (102) 97 12/21/16 00:37 97.7 97 18 142/76 (98) 99 12/20/16 20:54 98.3 94 18 131/77 (95) 98 12/20/16 16:00 98.3 97 20 151/79 (103) 98 I/O 12/20/16 12/20/16 12/20/16 12/21/16 12/21/16 12/21/16 07:00 15:00 23:00 07:00 15:00 23:00 Intake Total 1200 ml Output Total 600 ml 550 ml 1000 ml Balance -600 ml 650 ml -1000 ml Intake Oral 1200 ml Output Urine Total 600 ml 550 ml 1000 ml # Bowel Movements 2 1 1 Result Diagram: 12/17/16 0835 12/20/16 0803 Other Results Laboratory Tests Test 12/19/16 07:49 12/20/16 08:03 Phenytoin (Dilantin) Level 11.2 MCG/ML Potassium Level 3.6 MEQ/L Phosphorus Level 3.2 MG/DL Magnesium Level 2.0 MG/DL Imaging Last Impressions Brain MRI 12/13/16 0000 Signed Impressions: Service Date/Time: Tuesday, December 13, 2016 12:20 - CONCLUSION: 1. The examination demonstrates multiple small areas of intraparenchymal and extra-axial hemorrhage as described above. These areas are more apparent on the patient's MRI examination than on the CT. Direct comparison is made. The areas of edema and hemorrhage appear similar though they are isointense on the CT. 2. 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 There is cortical atrophy. Anthony Burns MD Chest X-Ray 12/04/16 0000 Signed Impressions: Service Date/Time: November 11:58 - CONCLUSION: Improving aeration. Lonnie Blanchard MD Upper Extremity Ultrasound 12/02/16 0000 Signed Impressions: Service Date/Time: Saturday, December 03, 2016 00:53 - CONCLUSION: 1. Occlusive DVT in the cephalic and basilic vein on the right. Alex Goode MD Head CT 12/01/16 0000 Signed Impressions: Service Date/Time: Thursday, December 01, 2016 13:14 - CONCLUSION: Evolving intracranial hemorrhagic foci as above, both intra-axial and extra-axial. Jesus Lee MD Modified Barium Swallow 11/30/16 0000 Signed Impressions: Service Date/Time: Wednesday, November 30, 2016 00:00 - CONCLUSION: Please refer to speech pathology report for full details. Lonnie Cook MD Transcranial Doppler Study Complete 11/17/16 0000 Signed Impressions: Service Date/Time: Thursday, November 17, 2016 10:03 - CONCLUSION: 1. Nondiagnostic examination due to poor transcranial windows. Konstantin Dash MD Abdomen X-Ray 11/12/16 0000 Signed Impressions: Service Date/Time: Saturday, November 12, 2016 08:23 - CONCLUSION: 1. Gastric tube in good position. 2. Probable right renal stones. Narayan Coulter MD Cervical Spine CT 11/09/161950 Signed Impressions: Service Date/Time: Wednesday, November 09, 2016 20:14 - CONCLUSION: Negative trauma CT. Cj Isidro MD Objective Remarks GENERAL: CONFUSED SKIN: Warm and dry. HEAD: Atraumatic. Normocephalic. EYES: Pupils equal and round. No scleral icterus. No injection or drainage. ENT: No nasal bleeding or discharge. Mucous membranes pink and moist. NECK: Trachea midline. No JVD. SUPPLE CARDIOVASCULAR: IRRegular rate and rhythm. S1,S 2 NO S3 OR S4 RESPIRATORY: No accessory muscle use. Clear to auscultation. Breath sounds equal bilaterally. GASTROINTESTINAL: Abdomen soft, non-tender, nondistended. Hepatic and splenic margins not palpable. MUSCULOSKELETAL: Extremities without clubbing, cyanosis, or edema. No obvious deformities. NEUROLOGICAL: Awake and alert. No obvious cranial nerve deficits. Motor grossly within normal limits. 4 out of 5 muscle strength in the arms and legs. ABNormal speech. PSYCHIATRIC: INAppropriate mood and affect; insight and judgment ABnormal. Medications and IVs Current Medications Ondansetron HCl (Zofran Inj) 4 mg ONCE ONCE IVP Last administered on 11/09/16 19:57; Start 11/09/16 at 20:00; Stop 11/09/16 at 20:01; Status DC Sodium Chloride (NS Flush) 2 ml UNSCH PRN IVF FLUSH AFTER USING IV ACCESS; Start 11/09/16 at 20:00; Stop 11/09/16 at 22:09; Status DC Sodium Chloride 250 ml @ 15 mls/hr ONCE ONCE IV Last administered on 23:09; Start 11/09/16 at 21:00; Stop 11/10/16 at 13:39; Status DC Sodium Chloride (NS Flush) 2 ml BID IV FLUSH Last administered on 11/11/16 09: 00; Start 11/10/16 at 09:00; Stop 11/12/16 at 08:15; Status DC Sodium Chloride (NS Flush) 2 ml UNSCH PRN IVF FLUSH AFTER USING IV ACCESS; Start 11/09/16 at 22:15; Stop 11/12/16 at 08:15; Status DC Nicardipine HCl 25 mg/Sodium Chloride 260 ml @ 52 mls/hr TITRATE PRN IV Blood pressure management Last administered on 11/09/16 22:25; Start 11/09/16 at 22:15 ; Stop 11/09/16 at 23:53; Status DC Metoclopramide HCl (Reglan Inj) 10 mg ONCE ONCE IV PUSH Last administered on 22:36; Start 11/09/16 at 22:30; Stop 11/09/16 at 22:31; Status DC Morphine Sulfate (Morphine Inj) 3 mg ONCE ONCE IV PUSH Last administered on 23:01; Start 11/09/16 at 23:00; Stop 11/09/16 at 23:01; Status DC Finasteride (Proscar) 5 mg DAILY PO Last administered on 12/21/16 08:44; Start 11/10/16 at 09:00 Glimepiride (Amaryl) 1 mg DAILY PO Last administered on 11/10/16 10:23; Start 11/10/16 at 09:00; Stop 11/11/16 at 13:35; Status DC Tamsulosin HCl (Flomax) 0.4 mg HS PO Last administered on 12/20/16 20:35; Start 11/10/16 at 21:00 Bisoprolol Fumarate (Zebeta) 5 mg DAILY PO Last administered on 11/16/16 08:35 ; Start 11/10/16 at 09:00; Stop 11/16/16 at 09:35; Status DC Tolterodine Tartrate (Detrol La) 2 mg DAILY PO Last administered on 12/21/16 08:42; Start 11/10/16 at 09:00 Nicardipine HCl 25 mg/Sodium Chloride 260 ml @ 52 mls/hr TITRATE PRN IV SYS BP GREATER THAN 150 MMHG; Start 11/09/16 at 23:45; Stop 11/21/16 at 14:08; Status DC Docusate Sodium (Colace) 100 mg BID PO Last administered on 11/10/16 21:26; Start 11/10/16 at 09:00; Stop 11/12/16 at 08:21; Status DC Pantoprazole Sodium (Protonix) 40 mg DAILY PO Last administered on 11/10/16 10: 13; Start 11/10/16 at 09:00; Stop 11/11/16 at 13:35; Status DC Ondansetron HCl (Zofran Inj) 4 mg Q6H PRN IV NAUSEA OR VOMITING; Start 11/09/16 at 23:45; Stop 11/12/16 at 08:55; Status DC Potassium Chloride/Sodium Chloride 1,000 ml @ 84 mls/hr [id number] IV Last administered on 11/11/16 12:34; Start 11/09/16 at 23:45; Stop 11/11/16 at 13:35; Status DC Dextrose (D50w (Vial) Inj) 50 ml UNSCH PRN IV HYPOGLYCEMIA-SEE COMMENTS Last administered on 11/24/16 04:19; Start 11/09/16 at 23:45; Stop 11/25/16 at 09:27 ; Status DC Glucagon (Glucagon Inj) 1 mg UNSCH PRN OTHER HYPOGLYCEMIA-SEE COMMENTS Last administered on 11/24/16 03:48; Start 11/09/16 at 23:45 Insulin Human Regular (NovoLIN R SUPPLEMENTAL SCALE) 1 ACHS SLIDING SCALE SQ Last administered on 11/10/16 11:00; Start 11/10/16 at 07:00; Stop 11/12/16 at 08: 21; Status DC Levofloxacin/ Dextrose 150 ml @ 100 mls/hr Q24H IV Last administered on 01:01; Start 11/10/16 at 01:00; Stop 11/12/16 at 08:21; Status DC Acetaminophen (Tylenol) 650 mg Q4H PRN PO FEVER; Start 11/10/16 at 01:45; Stop 11/12/16 at 08:21; Status DC Magnesium Sulfate/ Dextrose 100 ml @ 100 mls/hr ONCE ONCE IV Last administered on 11/10/16 02:44; Start 11/10/16 at 01:45; Stop 11/10/16 at 02:44; Status DC Acetaminophen/ Hydrocodone Bitart ([place] 10-325 Mg) 1 tab Q4H PO Last administered on 11/10/16 18:19; Start 11/10/16 at 17:00; Stop 11/12/16 at 08:21; Status DC Acetaminophen/ Hydrocodone Bitart ([place] 10-325 Mg) 1 tab Q4H PRN PO PAIN 4-10 ; Start 11/10/16 at 17:00; Stop 11/12/16 at 08:21; Status DC Morphine Sulfate (Morphine Inj) 2 mg Q4H PRN IV PUSH BREAKTHROUGH PAIN Last administered on 11/10/16 18:18; Start 11/10/16 at 17:15; Stop 11/12/16 at 08:26; Status DC Albuterol/ Ipratropium (Duoneb Neb) 1 ampule Q6HR WHILE AWAKE NEB PRN NEB WHEEZING; Start 11/11/16 at 07:45; Stop 11/11/16 at 08:10; Status DC Albuterol/ Ipratropium (Duoneb Neb) 1 ampule Q2HR NEB PRN NEB SOB/WHEEZING Last administered on 11/12/16 02:10; Start 11/11/16 at 09:00; Stop 11/12/16 at 08: 21; Status DC Levetriacetam 100 ml @ 400 mls/hr BOLUS ONCE IV Last administered on 12:33; Start 11/11/16 at 12:30; Stop 11/11/16 at 12:44; Status DC Levetriacetam 100 ml @ 400 mls/hr Q12HR IV Last administered on 11/12/16 09:30 ; Start 11/11/16 at 21:00; Stop 11/12/16 at 17:07; Status DC Sodium Chloride 188 meq/Sodium Chloride 1,047 ml @ 40 mls/hr Q24H IV Last administered on 11/11/16 15:00; Start 11/11/16 at 15:00; Stop 11/12/16 at 08:21; Status DC Acetaminophen (Ofirmev 1000 Mg/ 100 ml Inj) 1,000 mg ONCE ONCE IV Last administered on 11/11/16 14:54; Start 11/11/16 at 14:30; Stop 11/11/16 at 14:31; Status DC Albuterol/ Ipratropium (Duoneb Neb) 1 ampule Q4HR NEB PRN NEB wheezing; Start 11/11/16 at 13:30; Stop 11/12/16 at 08:21; Status DC Furosemide (Lasix Inj) 20 mg ONCE ONCE IV PUSH Last administered on 11/11/16 14:54; Start 11/11/16 at 13:30; Stop 11/11/16 at 14:27; Status DC Sodium Chloride 188 meq/Sodium Chloride 200 ml @ 200 mls/hr Q1H IV Last administered on 11/11/16 16:00; Start 11/11/16 at 15:00; Stop 11/11/16 at 16:00; Status DC Fosphenytoin Sodium 1000 mgpe/ Sodium Chloride 70 ml @ 280 mls/hr ONCE ONCE IV Last administered on 11/11/16 21:44; Start 11/11/16 at 21:30; Stop 11/11/16 at 21:44; Status DC Fosphenytoin Sodium (Cerebyx Inj) 100 mgpe Q8HR IV Last administered on 12:54; Start 11/12/16 at 06:00; Stop 11/12/16 at 17:07; Status DC Lorazepam (Ativan Inj) 1 mg Q5M PRN IV SEIZURES Last administered on 11/12/16 01:45; Start 11/12/16 at 00:45 Etomidate (Amidate Inj) 40 mg ONCE ONCE IV PUSH Last administered on 11/12/16 07:00; Start 11/12/16 at 07:00; Stop 11/12/16 at 07:15; Status DC Rocuronium [place] (Zemuron Inj) 100 mg BOLUS ONCE IV Last administered on 11/12 07:00; Start 11/12/16 at 07:00; Stop 11/12/16 at 07:16; Status DC Lidocaine HCl (Xylocaine 2% Inj) 100 mg ONCE ONCE IV PUSH Last administered on 11/12/16 07:39; Start 11/12/16 at 07:15; Stop 11/12/16 at 07:16; Status DC Chlorhexidine Gluconate (Peridex 0.12% Liq) 15 ml BID@08,20 MT Last administered on 12/21/16 08:00; Start 11/12/16 at 08:00 Midazolam HCl 100 ml @ 2 mls/hr TITRATE PRN IV SEDATION Last administered on 08:49; Start 11/12/16 at 07:15; Stop 12/08/16 at 12:35; Status DC Fentanyl Citrate 250 ml @ 5 mls/hr TITRATE PRN IV SEDATION Last administered on 11/13/16 23:20; Start 11/12/16 at 07:15; Stop 11/21/16 at 14:08; Status DC Sodium Chloride (NS Flush) DAILY IVF Last administered on 11/28/16 09:22; Start 11/12/16 at 09:00 Sodium Chloride (NS Flush) UNSCH PRN IVF SEE PROTOCOL; Start 11/12/16 at 08:15 Lansoprazole (Prevacid Odt) 30 mg DAILY NG Last administered on 12/21/16 08: 40; Start 11/12/16 at 09:00 Sodium Chloride 500 ml @ 20 mls/hr CONTINUOUS IV ; Start 11/12/16 at 09:00; Status Cancel Pharmacy Profile Note 0 ml @ 0 mls/hr UNSCH OTHER ; Start 11/12/16 at 08:30; Stop 11/15/16 at 10:51; Status DC Aztreonam 2000 mg/ Sodium Chloride 100 ml @ 200 mls/hr Q8H IV Last administered on 11/15/16 10:09; Start 11/12/16 at 09:00; Stop 11/15/16 at 10:51; Status DC Metronidazole (Flagyl) 500 mg Q8HR PO Last administered on 11/15/16 06:26; Start 11/12/16 at 14:00; Stop 11/15/16 at 10:51; Status DC Arginine HCl ([place] Powder) 1 pack BID G-TUBE Last administered on 11/14/16 21: 00; Start 11/12/16 at 09:00; Stop 11/15/16 at 04:13; Status DC Insulin Human Regular (NovoLIN R SUPPLEMENTAL SCALE) 1 Q6HR SQ Last administered on 11/17/16 05:59; Start 11/12/16 at 12:00; Stop 11/17/16 at 08:09 ; Status DC Docusate Sodium (Colace Liq) 100 mg Q12HR PO Last administered on 12/19/16 20 :34; Start 11/12/16 at 09:00 Sennosides (Senna Liq) 8.8 mg BID NG Last administered on 12/04/16 08:39; Start 11/12/16 at 09:00; Stop 12/04/16 at 11:03; Status DC Sodium Chloride (NS Flush) 2 ml UNSCH PRN IV FLUSH FLUSH AFTER USING IV ACCESS ; Start 11/12/16 at 08:30 Sodium Chloride (NS Flush) 2 ml BID IV FLUSH Last administered on 12/21/16 08 :39; Start 11/12/16 at 09:00 Artificial Tears (Tears Naturale Opth Soln) 1 drop TID EACH EYE Last administered on 12/21/16 08:32; Start 11/12/16 at 09:00 Ondansetron HCl (Zofran Inj) 4 mg Q6H PRN IV NAUSEA OR VOMITING Last administered on 11/15/16 05:45; Start 11/12/16 at 08:30 Albuterol/ Ipratropium (Duoneb Neb) 1 ampule Q6HR NEB INH Last administered on 11/16/16 07:57; Start 11/12/16 at 10:00; Stop 11/16/16 at 09:59; Status DC Albuterol Sulfate (Albuterol Neb) 2.5 mg Q2HR NEB PRN INH SOB/WHEEZING Last administered on 11/29/16 21:19; Start 11/12/16 at 08:30 Bisacodyl (Dulcolax Supp) 10 mg DAILY PRN RECTAL SEVERE CONSITIPATION; Start at 08:30 Lactulose (Lactulose Liq) 30 ml DAILY PRN PO SEVERE CONSITIPATION; Start at 08:30; Stop 12/04/16 at 11:03; Status DC Sodium Chloride 1,000 ml @ 84 mls/hr [id number] IV Last administered on 11/13/16 00:08; Start 11/12/16 at 08:30; Stop 11/13/16 at 08:18; Status DC Potassium Chloride 100 ml @ 50 mls/hr Q2H PRN IV-CENTRAL For Potassium 2.8 - 3.2 mEq/L Last administered on 11/13/16 08:49; Start 11/12/16 at 08:30; Stop at 07:46; Status DC Potassium Chloride 100 ml @ 50 mls/hr Q2H PRN IV For Potassium 2.8 - 3.2 mEq/ L Last administered on 11/23/16 13:09; Start 11/12/16 at 08:30; Stop 11/24/16 at 07:46; Status DC Potassium Bicarb/ Potassium Chloride (K-Lyte Cl Eff) 50 meq UNSCH PRN PO For Potassium 3.3 - 3.5 mEq/L Last administered on 11/20/16 13:06; Start 11/12/16 at 08:30; Stop 11/24/16 at 07:46; Status DC Potassium Chloride 100 ml @ 25 mls/hr UNSCH PRN IV-CENTRAL For Potassium 3.3 - 3.5 mEq/L Last administered on 11/16/16 17:47; Start 11/12/16 at 08:30; Stop 11/24/16 at 07:46; Status DC Potassium Chloride 100 ml @ 50 mls/hr Q2H PRN IV For Potassium 3.3 - 3.5 mEq/ L Last administered on 11/16/16 05:34; Start 11/12/16 at 08:30; Stop 11/24/16 at 07:46; Status DC Magnesium Sulfate 4 gm/Sodium Chloride 100 ml @ 50 mls/hr UNSCH PRN IV For Magnesium 0.9 - 1.1 mg/dL; Start 11/12/16 at 08:30; Stop 11/24/16 at 07:46; Status DC Magnesium Oxide (Mag-Ox) 800 mg UNSCH PRN PO For Magnesium 1.2 - 1.6 mg/dL; Start 11/12/16 at 08:30; Stop 11/24/16 at 07:46; Status DC Magnesium Sulfate 2 gm/Sodium Chloride 100 ml @ 50 mls/hr UNSCH PRN IV For Magnesium 1.2 - 1.6 mg/dL; Start 11/12/16 at 08:30; Stop 11/24/16 at 07:46; Status DC Potassium Phosphate (K-Phos) 2,000 mg Q4H PRN PO For Phosphorus < 2.5 mg/dL Last administered on 11/13/16 10:35; Start 11/12/16 at 08:30; Stop 11/24/16 at 07 :46; Status DC Sodium Phosphate 30 mmol/Sodium Chloride 250 ml @ 42 mls/hr UNSCH PRN IV For Phosphorus < 2.5 mg/dL Last administered on 11/19/16 13:58; Start 11/12/16 at 08 :30; Stop 11/24/16 at 07:46; Status DC Potassium Phosphate (K-Phos) 2,000 mg UNSCH PRN PO/TUBE SEE LABEL COMMENTS; Start 11/12/16 at 08:30; Stop 11/24/16 at 07:46; Status DC Potassium Phosphate 30 mmol/ Sodium Chloride 260 ml @ 42 mls/hr UNSCH PRN IV SEE LABEL COMMENTS Last administered on 11/14/16 06:15; Start 11/12/16 at 08:30; Stop 11/24/16 at 07:46; Status DC Acetaminophen (Tylenol 650 Mg/ 20 ml Liq) 650 mg Q6H PRN NG FEVER Last administered on 12/20/16 02:14; Start 11/12/16 at 08:45 Vancomycin HCl 2500 mg/Sodium Chloride 525 ml @ 250 mls/hr ONCE ONCE IV ; Start 11/12/16 at 10:00; Stop 11/12/16 at 10:00; Status DC Vancomycin HCl 2000 mg/Sodium Chloride 520 ml @ 250 mls/hr Q24H IV Last administered on 11/14/16 10:23; Start 11/12/16 at 11:00; Stop 11/15/16 at 10:51; Status DC Sodium Chloride 500 ml @ 20 mls/hr Q24H IV Last administered on 11/16/16 08: 34; Start 11/12/16 at 09:00; Stop 11/16/16 at 09:35; Status DC Miscellaneous Information SPECIFIC LAB TO BE DRAWN:VANCOMYCIN TROUGH DATE TO... ONCE ONCE .XX Last administered on 11/15/16 10:40; Start 11/15/16 at 10:45; Stop 11/15/16 at 10:46; Status DC Lorazepam (Ativan Inj) 2 mg ONCE ONCE IV PUSH Last administered on 11/12/16 12 :43; Start 11/12/16 at 12:30; Stop 11/12/16 at 12:31; Status DC Levetriacetam 100 ml @ 400 mls/hr Q8HR IV Last administered on 11/30/16 05:35 ; Start 11/12/16 at 22:00; Status Future Hold Fosphenytoin Sodium (Cerebyx Inj) 100 mgpe Q6HR IV Last administered on 05:34; Start 11/12/16 at 18:00; Stop 11/18/16 at 13:11; Status DC Potassium Phosphate 30 mmol/ Sodium Chloride 260 ml @ 43.333 mls/ hr ONCE ONCE IV Last administered on 11/13/16 15:42; Start 11/13/16 at 13:45; Stop at 19:44; Status DC Polyethylene Glycol (Miralax) 17 gm BID OG-TUBE Last administered on 20:34; Start 11/13/16 at 21:00 Lactulose (Lactulose Liq) 30 ml DAILY PO Last administered on 12/02/16 09:54; Start 11/14/16 at 09:00; Status Future Hold Lactulose (Lactulose Liq) 30 ml ONCE ONCE PO Last administered on 11/13/16 15: 42; Start 11/13/16 at 15:00; Stop 11/13/16 at 15:01; Status DC Mineral Oil (Mineral Oil Liq) 30 ml ONCE ONCE PO ; Start 11/13/16 at 16:00; Stop 11/13/16 at 16:01; Status DC Glycerin (Glycerin Adult Supp) 2 gm BID PRN RECTAL CONSTIPATION - SEVERE; Start 11/13/16 at 15:00 Fosphenytoin Sodium (Cerebyx Inj) 300 mgpe ONCE ONCE IV Last administered on 15:43; Start 11/13/16 at 16:00; Stop 11/13/16 at 16:01; Status DC Hydralazine HCl (Apresoline Inj) 20 mg Q4H PRN IV PUSH SBP>150, DBP>90 Last administered on 11/14/16 03:07; Start 11/14/16 at 02:15 Metoprolol Tartrate (Lopressor Inj) 5 mg Q6H PRN IV PUSH HR>100 Last administered on 11/21/16 15:18; Start 11/14/16 at 03:30; Stop 11/22/16 at 10:47 ; Status DC Metoprolol Tartrate (Lopressor) 25 mg Q12HR PO Last administered on 12/12/16 08:04; Start 11/16/16 at 09:30; Stop 12/12/16 at 17:53; Status DC Furosemide (Lasix Inj) 40 mg ONCE ONCE IV PUSH Last administered on 11/16/16 10:34; Start 11/16/16 at 09:30; Stop 11/16/16 at 09:36; Status DC Furosemide (Lasix Inj) 40 mg BID@09,18 IV PUSH Last administered on 11/16/16 17:11; Start 11/16/16 at 18:00; Stop 11/17/16 at 08:47; Status DC Midazolam HCl (Versed Inj) 2 mg ONCE ONCE IV PUSH Last administered on 05:31; Start 11/17/16 at 05:30; Stop 11/17/16 at 05:31; Status DC Fentanyl Citrate (fentaNYL INJ) 100 mcg ONCE ONCE IV PUSH Last administered on 11/17/16 05:31; Start 11/17/16 at 05:30; Stop 11/17/16 at 05:31; Status DC Fentanyl Citrate (fentaNYL INJ) 100 mcg STK-MED ONCE .ROUTE ; Start 11/17/16 at 05:30; Stop 11/17/16 at 05:31; Status DC Midazolam HCl (Versed Inj) 2 mg STK-MED ONCE .ROUTE ; Start 11/17/16 at 05:30; Stop 11/17/16 at 05:31; Status DC Sodium Chloride 1,000 ml @ 999 mls/hr BOLUS ONCE IV Last administered on 11/17 06:15; Start 11/17/16 at 06:15; Stop 11/17/16 at 07:15; Status DC Sodium Chloride 1,000 ml @ 999 mls/hr BOLUS ONCE IV Last administered on 11/17 06:15; Start 11/17/16 at 06:15; Stop 11/17/16 at 07:15; Status DC Insulin Detemir (Levemir Inj) 12 units Q12HR SQ Last administered on 11/24/16 09:00; Start 11/17/16 at 09:00; Stop 11/24/16 at 16:11; Status DC Dextrose (D50w (Vial) Inj) 50 ml UNSCH PRN IV HYPOGLYCEMIA-SEE COMMENTS; Start 11/17/16 at 08:15; Status UNV Glucagon (Glucagon Inj) 1 mg UNSCH PRN OTHER HYPOGLYCEMIA-SEE COMMENTS; Start 11/17/16 at 08:15; Status UNV Insulin Aspart (NovoLOG SUPPLEMENTAL SCALE) 1 Q6H SQ Last administered on 22:13; Start 11/17/16 at 09:00; Stop 11/24/16 at 16:17; Status DC Pharmacy Profile Note 0 ml @ 0 mls/hr UNSCH OTHER ; Start 11/17/16 at 08:15; Stop 12/10/16 at 09:28; Status DC Cefepime HCl 2000 mg/Sodium Chloride 100 ml @ 200 mls/hr Q12H IV Last administered on 11/20/16 09:03; Start 11/17/16 at 09:00; Stop 11/20/16 at 11:24 ; Status DC Potassium Chloride/Sodium Chloride 1,000 ml @ 100 mls/hr Q10H IV Last administered on 11/18/16 04:02; Start 11/17/16 at 08:45; Stop 11/18/16 at 09:29 ; Status DC Metronidazole (Flagyl) 500 mg Q8HR PO Last administered on 11/21/16 07:50; Start 11/17/16 at 09:00; Stop 11/21/16 at 14:08; Status DC Sodium Chloride 1,000 ml @ 999 mls/hr BOLUS ONCE IV Last administered on 11/17 09:32; Start 11/17/16 at 09:00; Stop 11/17/16 at 10:00; Status DC Vancomycin HCl 2000 mg/Sodium Chloride 520 ml @ 260 mls/hr ONCE ONCE IV Last administered on 11/17/16 13:12; Start 11/17/16 at 12:00; Stop 11/17/16 at 13:59 ; Status DC Furosemide (Lasix Inj) 60 mg ONCE ONCE IV PUSH Last administered on 11/18/16 09:36; Start 11/18/16 at 09:30; Stop 11/18/16 at 09:31; Status DC Albuterol/ Ipratropium (Duoneb Neb) 1 ampule Q6HR NEB NEB Last administered on 11/22/16 08:01; Start 11/18/16 at 10:00; Stop 11/22/16 at 09:59; Status DC Vancomycin HCl 2250 mg/Sodium Chloride 522.5 ml @ 250 mls/hr Q18H IV Last administered on 11/21/16 15:10; Start 11/18/16 at 13:00; Stop 11/23/16 at 08:53 ; Status DC Miscellaneous Information SPECIFIC LAB TO BE DRAWN:VANCO TROUGH DATE TO... ONCE ONCE .XX Last administered on 11/20/16 00:45; Start 11/20/16 at 00:45; Stop 11/20/16 at 00:46; Status DC Fosphenytoin Sodium 100 mgpe/ Sodium Chloride 52 ml @ 208 mls/hr Q6HR IV Last administered on 11/30/16 13:10; Start 11/18/16 at 13:00; Status Future Hold Diltiazem HCl (Cardizem Inj) 15 mg ONCE ONCE IV PUSH Last administered on 11/19 01:01; Start 11/19/16 at 00:45; Stop 11/19/16 at 00:48; Status DC Diltiazem HCl 125 mg/Sodium Chloride 125 ml @ 5 mls/hr TITRATE PRN IV Tachycardia; Start 11/19/16 at 00:45; Stop 11/22/16 at 10:47; Status DC Metoprolol Tartrate (Lopressor Inj) 5 mg ONCE ONCE IV PUSH Last administered on 11/19/16 00:53; Start 11/19/16 at 00:45; Stop 11/19/16 at 00:49; Status DC Digoxin (Lanoxin Inj) 0.25 mg ONCE ONCE IV PUSH ; Start 11/19/16 at 00:45; Stop 11/19/16 at 00:47; Status DC Miscellaneous Information SPECIFIC LAB TO BE RENETTA... ONCE ONCE .XX Last administered on 11/22/16 06:45; Start 11/22/16 at 06:45; Stop 11/22/16 at 06:46 ; Status DC Norepinephrine Bitartrate 4 mg/ Sodium Chloride 250 ml @ 7.5 mls/hr TITRATE PRN IV Blood pressure management; Start 11/20/16 at 16:30; Stop 11/21/16 at 14: 08; Status DC Terbutaline Sulfate (Brethine Inj) 1 mg UNSCH PRN SQ For Extravasation; Start 11/20/16 at 16:30 Sodium Chloride 500 ml @ 20 mls/hr ONCE ONCE IV Last administered on 18:05; Start 11/20/16 at 16:30; Stop 11/21/16 at 14:08; Status DC Furosemide (Lasix Inj) 40 mg ONCE ONCE IV PUSH Last administered on 11/21/16 09:31; Start 11/21/16 at 09:30; Stop 11/21/16 at 09:31; Status DC Albuterol/ Ipratropium (Duoneb Neb) 1 ampule ONCE ONCE NEB Last administered on 11/21/16 09:30; Start 11/21/16 at 09:30; Stop 11/21/16 at 10:00; Status DC Potassium Chloride 100 ml @ 50 mls/hr BOLUS ONCE IV ; Start 11/21/16 at 10:15 ; Stop 11/21/16 at 12:14; Status DC Furosemide (Lasix Inj) 40 mg DAILY IV PUSH Last administered on 12/21/16 08: 37; Start 11/22/16 at 11:00 Vancomycin HCl 1600 mg/Sodium Chloride 516 ml @ 250 mls/hr ONCE ONCE IV Last administered on 11/23/16 10:47; Start 11/23/16 at 11:00; Stop 11/23/16 at 13:03 ; Status DC Vancomycin HCl 1500 mg/Sodium Chloride 515 ml @ 257.5 mls/ hr Q24H IV Last administered on 11/29/16 12:20; Start 11/24/16 at 13:00; Stop 11/30/16 at 14:50 ; Status DC Miscellaneous Information SPECIFIC LAB TO BE RENETTA... ONCE ONCE .XX Last administered on 11/26/16 12:45; Start 11/26/16 at 12:45; Stop 11/26/16 at 12:46 ; Status DC Dextrose (D50w (Syr) Inj) 50 ml STK-MED ONCE .ROUTE Last administered on 15:18; Start 11/24/16 at 15:14; Stop 11/24/16 at 15:15; Status DC Dextrose (D50w (Syr) Inj) 50 ml STK-MED ONCE .ROUTE ; Start 11/24/16 at 15:21; Stop 11/24/16 at 15:22; Status DC Insulin Aspart (NovoLOG SUPPLEMENTAL SCALE) 1 ACHS SLIDING SCALE SQ Last administered on 12/16/16 08:42; Start 11/24/16 at 17:00; Stop 12/16/16 at 10: 40; Status DC Dextrose (D50w (Syr) Inj) 50 ml UNSCH PRN IV HYPOGLYCEMIA-SEE COMMENTS Last administered on 11/25/16 09:46; Start 11/25/16 at 09:30 Megestrol Acetate (Megace Liq) 400 mg ONCE ONCE PO Last administered on 13:08; Start 11/25/16 at 11:15; Stop 11/25/16 at 11:19; Status DC Megestrol Acetate (Megace Liq) 400 mg DAILY PO Last administered on 12/21/16 08:35; Start 11/26/16 at 09:00 Calcium Carbonate (Tums Chew) 500 mg ONCE ONCE CHEW Last administered on 10:47; Start 11/26/16 at 08:15; Stop 11/26/16 at 08:17; Status DC Calcium Carbonate (Tums Chew) 500 mg Q12HR CHEW Last administered on 12/05/16 20:51; Start 11/26/16 at 09:00; Stop 12/06/16 at 08:59; Status DC Potassium Phosphate (K-Phos) 500 mg DAILY PO Last administered on 11/28/16 09: 19; Start 11/26/16 at 09:00; Stop 11/29/16 at 08:59; Status DC Miscellaneous Information SPECIFIC LAB TO BE DRAWN:VANCOMYCIN TROUGH DATE TO... ONCE ONCE .XX Last administered on 11/30/16 12:45; Start 11/30/16 at 12:45; Stop 11/30/16 at 12:46; Status DC Potassium Bicarb/ Potassium Chloride (K-Lyte Cl Eff) 50 meq ONCE ONCE PO Last administered on 11/29/16 10:43; Start 11/29/16 at 10:30; Stop 11/29/16 at 10:31; Status DC Vancomycin HCl 1750 mg/Sodium Chloride 517.5 ml @ 257.5 mls/ hr Q24H IV ; Start 11/30/16 at 17:00; Stop 12/01/16 at 17:17; Status DC Miscellaneous Information SPECIFIC LAB TO BE RENETTA... ONCE ONCE .XX Last administered on 12/03/16 17:45; Start 12/03/16 at 17:45; Stop 12/03/16 at 17:46 ; Status DC Levetriacetam (Keppra) 1,000 mg Q8HR PO Last administered on 12/21/16 06:31; Start 11/30/16 at 22:00 Phenytoin (Dilantin) 100 mg Q6HR PO Last administered on 12/14/16 06:48; Start 11/30/16 at 19:45; Stop 12/14/16 at 11:06; Status DC Vancomycin HCl 1750 mg/Sodium Chloride 517.5 ml @ 257.5 mls/ hr Q24H IV Last administered on 12/09/16 17:27; Start 12/01/16 at 18:00; Stop 12/10/16 at 09:28 ; Status DC Aztreonam 2000 mg/ Sodium Chloride 100 ml @ 200 mls/hr Q12H IV Last administered on 12/04/16 00:10; Start 12/02/16 at 12:00; Stop 12/04/16 at 11:08 ; Status DC Mupirocin (Bactroban 2% Cream) 1 applic Q12HR TOPICAL Last administered on 08:33; Start 12/02/16 at 21:00 Fluconazole (Diflucan) 100 mg DAILY PO Last administered on 12/18/16 09:40; Start 12/04/16 at 09:00; Stop 12/18/16 at 13:32; Status DC Belladonna Alkaloids/Opium (B & O Supp) 60 mg Q6HR RECTAL Last administered on 12/05/16 05:22; Start 12/03/16 at 18:00; Stop 12/05/16 at 08:31; Status DC Collagenase (Santyl Oint) 1 applic DAILY TOPICAL Last administered on 08:48; Start 12/04/16 at 12:00 Albuterol/ Ipratropium (Duoneb Neb) 1 ampule Q6HR WHILE AWAKE NEB NEB Last administered on 12/07/16 19:43; Start 12/04/16 at 14:00; Stop 12/08/16 at 12:35 ; Status DC Hyoscyamine Sulfate (Levsin) 0.125 mg Q4H PRN PO abdo spasm; Start 12/04/16 at 11:30 Heparin Sodium (Porcine) (Heparin Central Flush) 200 units DAILY IV FLUSH Last administered on 12/21/16 08:33; Start 12/05/16 at 12:00 Miscellaneous Information SPECIFIC LAB TO BE DRAWN:VANCOMYCIN TROUGH DATE TO... ONCE ONCE .XX Last administered on 12/09/16 16:54; Start 12/09/16 at 17:45; Stop 12/09/16 at 17:46; Status DC Potassium Chloride (KCl) 30 meq ONCE ONCE PO Last administered on 12/07/16 13 :03; Start 12/07/16 at 13:00; Stop 12/07/16 at 13:01; Status DC Albuterol/ Ipratropium (Duoneb Neb) 1 ampule Q6HR WHILE AWAKE NEB NEB Last administered on 12/12/16 10:13; Start 12/08/16 at 14:00; Stop 12/12/16 at 12:29 ; Status DC Miscellaneous Information SPECIFIC LAB TO BE DRAWN:VANCO TROUGH DATE TO BE DR... ONCE ONCE .XX ; Start 12/11/16 at 17:45; Stop 12/11/16 at 17:46; Status Cancel Acetaminophen (Tylenol 160 Mg/ 5 ml Liq) 650 mg Q4H PRN PO PAIN SCALE 1-10 Last administered on 12/14/16 02:33; Start 12/11/16 at 11:00 Potassium Bicarb/ Potassium Chloride (K-Lyte Cl Eff) 50 meq ONCE ONCE PO ; Start 12/12/16 at 11:00; Stop 12/12/16 at 11:10; Status DC Potassium Chloride 100 ml @ 50 mls/hr Q2H IV Last administered on 12/12/16 14 :20; Start 12/12/16 at 11:30; Stop 12/12/16 at 15:29; Status DC Potassium Bicarb/ Potassium Chloride (K-Lyte Cl Eff) 25 meq ONCE ONCE PO Last administered on 12/12/16 11:50; Start 12/12/16 at 11:30; Stop 12/12/16 at 11:31; Status DC Metoprolol Tartrate (Lopressor) 25 mg TID PO Last administered on 12/12/16 18: 31; Start 12/12/16 at 18:00; Stop 12/13/16 at 00:44; Status DC Metoprolol Tartrate (Lopressor) 25 mg Q8HR PO Last administered on 12/21/16 06:29; Start 12/13/16 at 00:45 Phenytoin (Dilantin) 100 mg TID PO Last administered on 12/21/16 08:42; Start 12/14/16 at 13:00 Potassium Chloride (KCl) 40 meq ONCE ONCE PO Last administered on 12/16/16 11:45; Start 12/16/16 at 10:30; Stop 12/16/16 at 10:31; Status DC Potassium Chloride (KCl) 40 meq ONCE ONCE PO Last administered on 12/16/16 14:04; Start 12/16/16 at 13:00; Stop 12/16/16 at 13:01; Status DC Insulin Human Regular (NovoLIN R SUPPLEMENTAL SCALE) 1 ACHS SLIDING SCALE SQ Last administered on 12/20/16 17:00; Start 12/16/16 at 12:00 Amlodipine Besylate (Norvasc) 5 mg DAILY PO Last administered on 12/21/16 08: 45; Start 12/17/16 at 12:00 Insulin Detemir (Levemir Inj) 5 units Q12H SQ Last administered on 12/19/16 00:19; Start 12/17/16 at 12:00; Stop 12/19/16 at 10:29; Status DC Insulin Detemir (Levemir Inj) 10 units Q12H SQ Last administered on 12/20/16 12:00; Start 12/19/16 at 12:00; Stop 12/21/16 at 00:28; Status DC Insulin Detemir (Levemir Inj) 5 units ONCE ONCE SQ Last administered on 13:36; Start 12/19/16 at 11:15; Stop 12/19/16 at 11:16; Status DC Collagenase (Santyl Oint) 1 applic DAILY TOPICAL Last administered on 09:00; Start 12/19/16 at 14:45 Potassium Bicarb/ Potassium Chloride (K-Lyte Cl Eff) 25 meq ONCE ONCE PO Last administered on 12/20/16 10:00; Start 12/20/16 at 10:00; Stop 12/20/16 at 10:01; Status DC Insulin Detemir (Levemir Inj) 10 units BID SQ Last administered on 12/21/16t 08:47; Start 12/21/16 at 09:00 Date of Insertion: Nov 12, 2016 Line: Central Venous Catheter Side: Right Location: Internal, Jugular A/P Problem List: (1) Subdural hematoma ICD Code: I62.00 - Nontraumatic subdural hemorrhage, unspecified Status: Acute (2) Diabetes ICD Code: E11.9 - Type 2 diabetes mellitus without complications Status: Chronic (3) Leukocytosis ICD Code: D72.829 - Elevated white blood cell count, unspecified Status: Acute (4) HTN (hypertension) ICD Code: I10 - Essential (primary) hypertension Status: Chronic (5) Dysphagia ICD Code: R13.10 - Dysphagia, unspecified (6) Urinary tract infection ICD Code: N39.0 - Urinary tract infection, site not specified Assessment and Plan 80 y/o with a history of HTN, DM, and BPH presented to the ED after a fall at home, with a LOC for 10-15 mins. Closed head injury Subdural hematoma Bilateral intracranial hemorrhaging - Managed by neurosurgery and no indication for surgery. - Neuro checks, seizure precautions - Keppra and Cerebyx on hold. Metabolic encephalopathy-improving - head CT 12/01/16 showed Bilateral hypodense subdural hematomas are seen in the occipital region and along the tentorium cerebelli on the right as well as small right frontal subdural hematoma unchanged. The left frontal parenchymal bleed is decreased in density with a small amount of edema identified. There is atrophy and moderate confluent hypodense white matter disease in the periventricular regions. The right frontal and left insular bleeds are much less conspicuous with a small amount of residual high density in the right frontal region with a small amount of surrounding edema. There is no midline shift or mass effect. Vascular calcifications are noted. No fractures. Anemia - WBC 15.2 -->13.4 --> 16.4 --> 13.0 - Hematology following. Ordered other testing R/O other bone marrow abnormality. Follow results. - Blood cultures no growth in 5 days. DC Vanco as planned. - Continue to trend WBC. 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 Atrial fibrillation Hypertension - Continue with Lopressor 25mg BID, increase to TID for better rate control and BP control - Oral anticoagulation contraindicated secondary to intracranial bleed - Monitor BP Trend, HR Decubitus ulcer, DTI sacral area - Continue Santyl - Wound care following. Recommends mable thick coverage of Santyl ointment. 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 Diabetes mellitus - hemoglobin A1c 6.0 - ISS. Uncontrolled blood sugars, will continue sliding scale increased Levemir to 10 units BID. Occlusive DVT in cephalic vein right upper extremity - Hematology consultation appreciated however oral anticoagulation contraindicated - Avoid IV access RUE Urinary tract infection - off Azactam 1 g IV every 12H - on Diflucan 100 mg by mouth daily 12/03/16 secondary to been culture positive for Jane, Stop 12/18/16 will follow Urinalysis and culture, he has Noriega cath high risk for reinfection. Electrolyte derangement replaced. Prophylaxis GI - lanosprazole DVT - SCD/pharmacological prophylaxis when okay with neurosurgery Discussed with Patient and his Daughter in the room, Discharge Planning AWAIT SAFE PLACEMENT AND RETURN TO HIS [facility]OM[facility] Problem Qualifiers (1) HTN (hypertension): Qualified Codes: I10 - Essential (primary) hypertension Lawrence Deal DO Dec 21, 2016 13:08
[2016-12-21 15:32] VITALS: BP 141/74; PULSE 91; RESP 16; TEMP 97.8; O2SAT 99
[2016-12-21 20:30] VITALS: BP 171/89; PULSE 102; RESP 20; TEMP 97.4; O2SAT 98
[2016-12-21] MEDS: TAMSULOSIN HCL 0.4 MG CAP PO SCH (21:23)
[2016-12-22 00:29] VITALS: BP 161/82; PULSE 92; RESP 18; TEMP 97.4; O2SAT 97
[2016-12-22 05:00] VITALS: BP 142/76; PULSE 98; RESP 18; TEMP 98.2; O2SAT 96
[2016-12-22] MEDS: levETIRAcetam 500 MG TAB PO SCH ×3 (05:59→21:02)
[2016-12-22] MEDS: METOPROLOL TARTRATE 25 MG TAB PO SCH ×3 (05:59→21:02)
[2016-12-22] MEDS: CHLORHEXIDINE 0.12% (ORAL KIT) 15 ML CUP MT SCH ×2 (08:00→20:00)
[2016-12-22] MEDS: INSULIN NovoLIN REGULAR SUPPLEMENTAL SCALE SQ SCH ×4 (08:00→21:06)
[2016-12-22] MEDS: ARTIFICIAL TEARS OPTH SOLN 15 ML BTL EACH EYE SCH ×3 (08:24→17:23)
[2016-12-22] MEDS: DOCUSATE SODIUM 100 MG/10 ML UDC PO SCH ×2 (08:30→21:00)
[2016-12-22] MEDS: FINASTERIDE 5 MG TAB PO SCH (08:30)
[2016-12-22] MEDS: amLODIPine BESYLATE 5 MG TAB PO SCH (08:30)
[2016-12-22] MEDS: MEGESTROL ACETATE SUSP 400 MG/10 ML CUP PO SCH (08:30)
[2016-12-22] MEDS: LANSOPRAZOLE SOLUTAB 30 MG TAB NG SCH (08:30)
[2016-12-22] MEDS: INSULIN DETEMIR 100 UNITS/ML VIAL SQ SCH ×2 (08:31→21:08)
[2016-12-22] MEDS: PHENYTOIN SODIUM 100 MG CAP PO SCH ×3 (08:31→17:24)
[2016-12-22] MEDS: COLLAGENASE OINT 30 GM TUBE TOPICAL SCH ×2 (08:31)
[2016-12-22] MEDS: FUROSEMIDE 40 MG/4 ML VIAL IV PUSH SCH (08:31)
[2016-12-22] MEDS: TOLTERODINE TARTRATE 2 MG CAP LA PO SCH (08:31)
[2016-12-22] MEDS: SODIUM CHLORIDE 0.9% FLUSH 10 ML FLUSH IV FLUSH SCH ×2 (08:40→21:10)
[2016-12-22] MEDS: SODIUM CHLORIDE 0.9% FLUSH 10 ML FLUSH IVF SCH (08:40)
[2016-12-22 08:41] VITALS: BP 135/82; PULSE 94; RESP 20; TEMP 97.8; O2SAT 97
[2016-12-22] MEDS: POLYETHYLENE GLYCOL 17 GM PKG OG-TUBE SCH ×2 (08:41→21:00)
[2016-12-22] MEDS: MUPIROCIN 2% CREAM 15 GM TOPICAL SCH ×2 (08:41→21:11)
[2016-12-22 13:00] VITALS: BP 137/74; PULSE 101; RESP 20; TEMP 97.5; O2SAT 98
--- NOTE | 2016-12-22 13:06 | HHI.PR ---
Subjective Remarks Follow up visit SDH, UE DVT, HTN, DM2. Patient seen and examined today. Patient is laying in bed. Continues to be drowsy and lethargic. Grimaces to pain. Occasional cough noted. As per nursing, no acute issues overnight. Patient was out of bed yesterday for about 2 hours with physical therapy. Appears comfortable. 12/16: Stable in his bedroom, in sitting position and sometimes seen in chair. continue confused. no nausea, vomit or diarrhea his Daughter by his side. 12/17: Seen in his bedroom in the presence of His Daughter and Daughter, they asked me about his father and consulted to Palliative care consult placed but they want to continue Aggressive management at this time. 12/18: Stable, Lethargic and weak as per her Daughter in the room, Mrs. Cardozo. No Nausea, vomit or diarrhea. 12/19: Seen with his Son in the room Mr. Sanders, stable no changes to anterior assessment, has Noriega cath in place, adjusted Insulin due to uncontrolled blood sugar. 12/20: Seen in the presence of his Daughter no new issues, discussed with Neurosurgery specialist PARVIN, awaiting for [facility] approval to come back to [place], no nausea, vomit or diarrhea, improving as per Neurosurgery 10-15 NOT BEEN CLEARED TO GO HOME YET, AWAIT CLEARANCE BY HIS EMBASSY TOLERATING A DIET BUT VERY SLOW TO EAT IT 10-16 SUGARS ARE BORDERLINE BUT POOR ORAL INTAKE STILL BLOOD SUGAR WAS 130S THIS MORNING SUSAN RN AND FAMILY AND PT Objective Vitals Vital Signs Date Time Temp Pulse Resp B/P (MAP) Pulse Ox O2 Delivery O2 Flow Rate FiO2 12/22/16 08:41 97.8 94 20 135/82 (99) 97 12/22/16 05:00 98.2 98 18 142/76 (98) 96 12/22/16 00:29 97.4 92 18 161/82 (108) 97 12/21/16 20:30 97.4 102 20 171/89 (116) 98 12/21/16 15:32 97.8 91 16 141/74 (96) 99 I/O 12/21/16 12/21/16 12/21/16 12/22/16 12/22/16 12/22/16 06:59 14:59 22:59 06:59 14:59 22:59 Output Total 1000 ml 400 ml 175 ml Balance -1000 ml -400 ml -175 ml Output Urine Total 1000 ml 400 ml 175 ml # Bowel Movements 1 1 Result Diagram: 12/20/16 0803 Imaging Last Impressions Brain MRI 12/13/16 0000 Signed Impressions: Service Date/Time: Tuesday, December 13, 2016 12:20 - CONCLUSION: 1. The examination demonstrates multiple small areas of intraparenchymal and extra-axial hemorrhage as described above. These areas are more apparent on the patient's MRI examination than on the CT. Direct comparison is made. The areas of edema and hemorrhage appear similar though they are isointense on the CT. 2. 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 There is cortical atrophy. Anthony Burns MD Chest X-Ray 12/04/16 0000 Signed Impressions: Service Date/Time: November 11:58 - CONCLUSION: Improving aeration. Lonnie Blanchard MD Upper Extremity Ultrasound 12/02/16 0000 Signed Impressions: Service Date/Time: Saturday, December 03, 2016 00:53 - CONCLUSION: 1. Occlusive DVT in the cephalic and basilic vein on the right. Alex Goode MD Head CT 12/01/16 0000 Signed Impressions: Service Date/Time: Thursday, December 01, 2016 13:14 - CONCLUSION: Evolving intracranial hemorrhagic foci as above, both intra-axial and extra-axial. Jesus Lee MD Modified Barium Swallow 11/30/16 0000 Signed Impressions: Service Date/Time: Wednesday, November 30, 2016 00:00 - CONCLUSION: Please refer to speech pathology report for full details. Lonnie Cook MD Transcranial Doppler Study Complete 11/17/16 0000 Signed Impressions: Service Date/Time: Thursday, November 17, 2016 10:03 - CONCLUSION: 1. Nondiagnostic examination due to poor transcranial windows. Konstantin Dash MD Abdomen X-Ray 11/12/16 0000 Signed Impressions: Service Date/Time: Saturday, November 12, 2016 08:23 - CONCLUSION: 1. Gastric tube in good position. 2. Probable right renal stones. Narayan Coulter MD Cervical Spine CT 11/09/161950 Signed Impressions: Service Date/Time: Wednesday, November 09, 2016 20:14 - CONCLUSION: Negative trauma CT. Cj Isidro MD Objective Remarks GENERAL: CONFUSED SKIN: Warm and dry. HEAD: Atraumatic. Normocephalic. EYES: Pupils equal and round. No scleral icterus. No injection or drainage. ENT: No nasal bleeding or discharge. Mucous membranes pink and moist. NECK: Trachea midline. No JVD. SUPPLE CARDIOVASCULAR: IRRegular rate and rhythm. S1,S 2 NO S3 OR S4 RESPIRATORY: No accessory muscle use. Clear to auscultation. Breath sounds equal bilaterally. GASTROINTESTINAL: Abdomen soft, non-tender, nondistended. Hepatic and splenic margins not palpable. MUSCULOSKELETAL: Extremities without clubbing, cyanosis, or edema. No obvious deformities. NEUROLOGICAL: Awake and alert. No obvious cranial nerve deficits. Motor grossly within normal limits. 4 out of 5 muscle strength in the arms and legs. ABNormal speech. PSYCHIATRIC: INAppropriate mood and affect; insight and judgment ABnormal. Medications and IVs Current Medications Ondansetron HCl (Zofran Inj) 4 mg ONCE ONCE IVP Last administered on 11/09/16 19:57; Start 11/09/16 at 20:00; Stop 11/09/16 at 20:01; Status DC Sodium Chloride (NS Flush) 2 ml UNSCH PRN IVF FLUSH AFTER USING IV ACCESS; Start 11/09/16 at 20:00; Stop 11/09/16 at 22:09; Status DC Sodium Chloride 250 ml @ 15 mls/hr ONCE ONCE IV Last administered on 23:09; Start 11/09/16 at 21:00; Stop 11/10/16 at 13:39; Status DC Sodium Chloride (NS Flush) 2 ml BID IV FLUSH Last administered on 11/11/16 09: 00; Start 11/10/16 at 09:00; Stop 11/12/16 at 08:15; Status DC Sodium Chloride (NS Flush) 2 ml UNSCH PRN IVF FLUSH AFTER USING IV ACCESS; Start 11/09/16 at 22:15; Stop 11/12/16 at 08:15; Status DC Nicardipine HCl 25 mg/Sodium Chloride 260 ml @ 52 mls/hr TITRATE PRN IV Blood pressure management Last administered on 11/09/16 22:25; Start 11/09/16 at 22:15 ; Stop 11/09/16 at 23:53; Status DC Metoclopramide HCl (Reglan Inj) 10 mg ONCE ONCE IV PUSH Last administered on 22:36; Start 11/09/16 at 22:30; Stop 11/09/16 at 22:31; Status DC Morphine Sulfate (Morphine Inj) 3 mg ONCE ONCE IV PUSH Last administered on 23:01; Start 11/09/16 at 23:00; Stop 11/09/16 at 23:01; Status DC Finasteride (Proscar) 5 mg DAILY PO Last administered on 12/22/16 08:30; Start 11/10/16 at 09:00 Glimepiride (Amaryl) 1 mg DAILY PO Last administered on 11/10/16 10:23; Start 11/10/16 at 09:00; Stop 11/11/16 at 13:35; Status DC Tamsulosin HCl (Flomax) 0.4 mg HS PO Last administered on 12/21/16 21:23; Start 11/10/16 at 21:00 Bisoprolol Fumarate (Zebeta) 5 mg DAILY PO Last administered on 11/16/16 08:35 ; Start 11/10/16 at 09:00; Stop 11/16/16 at 09:35; Status DC Tolterodine Tartrate (Detrol La) 2 mg DAILY PO Last administered on 12/22/16 08:31; Start 11/10/16 at 09:00 Nicardipine HCl 25 mg/Sodium Chloride 260 ml @ 52 mls/hr TITRATE PRN IV SYS BP GREATER THAN 150 MMHG; Start 11/09/16 at 23:45; Stop 11/21/16 at 14:08; Status DC Docusate Sodium (Colace) 100 mg BID PO Last administered on 11/10/16 21:26; Start 11/10/16 at 09:00; Stop 11/12/16 at 08:21; Status DC Pantoprazole Sodium (Protonix) 40 mg DAILY PO Last administered on 11/10/16 10: 13; Start 11/10/16 at 09:00; Stop 11/11/16 at 13:35; Status DC Ondansetron HCl (Zofran Inj) 4 mg Q6H PRN IV NAUSEA OR VOMITING; Start 11/09/16 at 23:45; Stop 11/12/16 at 08:55; Status DC Potassium Chloride/Sodium Chloride 1,000 ml @ 84 mls/hr [id number] IV Last administered on 11/11/16 12:34; Start 11/09/16 at 23:45; Stop 11/11/16 at 13:35; Status DC Dextrose (D50w (Vial) Inj) 50 ml UNSCH PRN IV HYPOGLYCEMIA-SEE COMMENTS Last administered on 11/24/16 04:19; Start 11/09/16 at 23:45; Stop 11/25/16 at 09:27 ; Status DC Glucagon (Glucagon Inj) 1 mg UNSCH PRN OTHER HYPOGLYCEMIA-SEE COMMENTS Last administered on 11/24/16 03:48; Start 11/09/16 at 23:45 Insulin Human Regular (NovoLIN R SUPPLEMENTAL SCALE) 1 ACHS SLIDING SCALE SQ Last administered on 11/10/16 11:00; Start 11/10/16 at 07:00; Stop 11/12/16 at 08: 21; Status DC Levofloxacin/ Dextrose 150 ml @ 100 mls/hr Q24H IV Last administered on 01:01; Start 11/10/16 at 01:00; Stop 11/12/16 at 08:21; Status DC Acetaminophen (Tylenol) 650 mg Q4H PRN PO FEVER; Start 11/10/16 at 01:45; Stop 11/12/16 at 08:21; Status DC Magnesium Sulfate/ Dextrose 100 ml @ 100 mls/hr ONCE ONCE IV Last administered on 11/10/16 02:44; Start 11/10/16 at 01:45; Stop 11/10/16 at 02:44; Status DC Acetaminophen/ Hydrocodone Bitart ([place] 10-325 Mg) 1 tab Q4H PO Last administered on 11/10/16 18:19; Start 11/10/16 at 17:00; Stop 11/12/16 at 08:21; Status DC Acetaminophen/ Hydrocodone Bitart ([place] 10-325 Mg) 1 tab Q4H PRN PO PAIN 4-10 ; Start 11/10/16 at 17:00; Stop 11/12/16 at 08:21; Status DC Morphine Sulfate (Morphine Inj) 2 mg Q4H PRN IV PUSH BREAKTHROUGH PAIN Last administered on 11/10/16 18:18; Start 11/10/16 at 17:15; Stop 11/12/16 at 08:26; Status DC Albuterol/ Ipratropium (Duoneb Neb) 1 ampule Q6HR WHILE AWAKE NEB PRN NEB WHEEZING; Start 11/11/16 at 07:45; Stop 11/11/16 at 08:10; Status DC Albuterol/ Ipratropium (Duoneb Neb) 1 ampule Q2HR NEB PRN NEB SOB/WHEEZING Last administered on 11/12/16 02:10; Start 11/11/16 at 09:00; Stop 11/12/16 at 08: 21; Status DC Levetriacetam 100 ml @ 400 mls/hr BOLUS ONCE IV Last administered on 12:33; Start 11/11/16 at 12:30; Stop 11/11/16 at 12:44; Status DC Levetriacetam 100 ml @ 400 mls/hr Q12HR IV Last administered on 11/12/16 09:30 ; Start 11/11/16 at 21:00; Stop 11/12/16 at 17:07; Status DC Sodium Chloride 188 meq/Sodium Chloride 1,047 ml @ 40 mls/hr Q24H IV Last administered on 11/11/16 15:00; Start 11/11/16 at 15:00; Stop 11/12/16 at 08:21; Status DC Acetaminophen (Ofirmev 1000 Mg/ 100 ml Inj) 1,000 mg ONCE ONCE IV Last administered on 11/11/16 14:54; Start 11/11/16 at 14:30; Stop 11/11/16 at 14:31; Status DC Albuterol/ Ipratropium (Duoneb Neb) 1 ampule Q4HR NEB PRN NEB wheezing; Start 11/11/16 at 13:30; Stop 11/12/16 at 08:21; Status DC Furosemide (Lasix Inj) 20 mg ONCE ONCE IV PUSH Last administered on 11/11/16 14:54; Start 11/11/16 at 13:30; Stop 11/11/16 at 14:27; Status DC Sodium Chloride 188 meq/Sodium Chloride 200 ml @ 200 mls/hr Q1H IV Last administered on 11/11/16 16:00; Start 11/11/16 at 15:00; Stop 11/11/16 at 16:00; Status DC Fosphenytoin Sodium 1000 mgpe/ Sodium Chloride 70 ml @ 280 mls/hr ONCE ONCE IV Last administered on 11/11/16 21:44; Start 11/11/16 at 21:30; Stop 11/11/16 at 21:44; Status DC Fosphenytoin Sodium (Cerebyx Inj) 100 mgpe Q8HR IV Last administered on 12:54; Start 11/12/16 at 06:00; Stop 11/12/16 at 17:07; Status DC Lorazepam (Ativan Inj) 1 mg Q5M PRN IV SEIZURES Last administered on 11/12/16 01:45; Start 11/12/16 at 00:45 Etomidate (Amidate Inj) 40 mg ONCE ONCE IV PUSH Last administered on 11/12/16 07:00; Start 11/12/16 at 07:00; Stop 11/12/16 at 07:15; Status DC Rocuronium [place] (Zemuron Inj) 100 mg BOLUS ONCE IV Last administered on 11/12 07:00; Start 11/12/16 at 07:00; Stop 11/12/16 at 07:16; Status DC Lidocaine HCl (Xylocaine 2% Inj) 100 mg ONCE ONCE IV PUSH Last administered on 11/12/16 07:39; Start 11/12/16 at 07:15; Stop 11/12/16 at 07:16; Status DC Chlorhexidine Gluconate (Peridex 0.12% Liq) 15 ml BID@08,20 MT Last administered on 12/21/16 21:38; Start 11/12/16 at 08:00 Midazolam HCl 100 ml @ 2 mls/hr TITRATE PRN IV SEDATION Last administered on 08:49; Start 11/12/16 at 07:15; Stop 12/08/16 at 12:35; Status DC Fentanyl Citrate 250 ml @ 5 mls/hr TITRATE PRN IV SEDATION Last administered on 11/13/16 23:20; Start 11/12/16 at 07:15; Stop 11/21/16 at 14:08; Status DC Sodium Chloride (NS Flush) DAILY IVF Last administered on 11/28/16 09:22; Start 11/12/16 at 09:00 Sodium Chloride (NS Flush) UNSCH PRN IVF SEE PROTOCOL; Start 11/12/16 at 08:15 Lansoprazole (Prevacid Odt) 30 mg DAILY NG Last administered on 12/22/16 08: 30; Start 11/12/16 at 09:00 Sodium Chloride 500 ml @ 20 mls/hr CONTINUOUS IV ; Start 11/12/16 at 09:00; Status Cancel Pharmacy Profile Note 0 ml @ 0 mls/hr UNSCH OTHER ; Start 11/12/16 at 08:30; Stop 11/15/16 at 10:51; Status DC Aztreonam 2000 mg/ Sodium Chloride 100 ml @ 200 mls/hr Q8H IV Last administered on 11/15/16 10:09; Start 11/12/16 at 09:00; Stop 11/15/16 at 10:51; Status DC Metronidazole (Flagyl) 500 mg Q8HR PO Last administered on 11/15/16 06:26; Start 11/12/16 at 14:00; Stop 11/15/16 at 10:51; Status DC Arginine HCl ([place] Powder) 1 pack BID G-TUBE Last administered on 11/14/16 21: 00; Start 11/12/16 at 09:00; Stop 11/15/16 at 04:13; Status DC Insulin Human Regular (NovoLIN R SUPPLEMENTAL SCALE) 1 Q6HR SQ Last administered on 11/17/16 05:59; Start 11/12/16 at 12:00; Stop 11/17/16 at 08:09 ; Status DC Docusate Sodium (Colace Liq) 100 mg Q12HR PO Last administered on 12/22/16 08 :30; Start 11/12/16 at 09:00 Sennosides (Senna Liq) 8.8 mg BID NG Last administered on 12/04/16 08:39; Start 11/12/16 at 09:00; Stop 12/04/16 at 11:03; Status DC Sodium Chloride (NS Flush) 2 ml UNSCH PRN IV FLUSH FLUSH AFTER USING IV ACCESS ; Start 11/12/16 at 08:30 Sodium Chloride (NS Flush) 2 ml BID IV FLUSH Last administered on 12/22/16 08 :40; Start 11/12/16 at 09:00 Artificial Tears (Tears Naturale Opth Soln) 1 drop TID EACH EYE Last administered on 12/22/16 08:24; Start 11/12/16 at 09:00 Ondansetron HCl (Zofran Inj) 4 mg Q6H PRN IV NAUSEA OR VOMITING Last administered on 11/15/16 05:45; Start 11/12/16 at 08:30 Albuterol/ Ipratropium (Duoneb Neb) 1 ampule Q6HR NEB INH Last administered on 11/16/16 07:57; Start 11/12/16 at 10:00; Stop 11/16/16 at 09:59; Status DC Albuterol Sulfate (Albuterol Neb) 2.5 mg Q2HR NEB PRN INH SOB/WHEEZING Last administered on 11/29/16 21:19; Start 11/12/16 at 08:30 Bisacodyl (Dulcolax Supp) 10 mg DAILY PRN RECTAL SEVERE CONSITIPATION; Start at 08:30 Lactulose (Lactulose Liq) 30 ml DAILY PRN PO SEVERE CONSITIPATION; Start at 08:30; Stop 12/04/16 at 11:03; Status DC Sodium Chloride 1,000 ml @ 84 mls/hr [id number] IV Last administered on 11/13/16 00:08; Start 11/12/16 at 08:30; Stop 11/13/16 at 08:18; Status DC Potassium Chloride 100 ml @ 50 mls/hr Q2H PRN IV-CENTRAL For Potassium 2.8 - 3.2 mEq/L Last administered on 11/13/16 08:49; Start 11/12/16 at 08:30; Stop at 07:46; Status DC Potassium Chloride 100 ml @ 50 mls/hr Q2H PRN IV For Potassium 2.8 - 3.2 mEq/ L Last administered on 11/23/16 13:09; Start 11/12/16 at 08:30; Stop 11/24/16 at 07:46; Status DC Potassium Bicarb/ Potassium Chloride (K-Lyte Cl Eff) 50 meq UNSCH PRN PO For Potassium 3.3 - 3.5 mEq/L Last administered on 11/20/16 13:06; Start 11/12/16 at 08:30; Stop 11/24/16 at 07:46; Status DC Potassium Chloride 100 ml @ 25 mls/hr UNSCH PRN IV-CENTRAL For Potassium 3.3 - 3.5 mEq/L Last administered on 11/16/16 17:47; Start 11/12/16 at 08:30; Stop 11/24/16 at 07:46; Status DC Potassium Chloride 100 ml @ 50 mls/hr Q2H PRN IV For Potassium 3.3 - 3.5 mEq/ L Last administered on 11/16/16 05:34; Start 11/12/16 at 08:30; Stop 11/24/16 at 07:46; Status DC Magnesium Sulfate 4 gm/Sodium Chloride 100 ml @ 50 mls/hr UNSCH PRN IV For Magnesium 0.9 - 1.1 mg/dL; Start 11/12/16 at 08:30; Stop 11/24/16 at 07:46; Status DC Magnesium Oxide (Mag-Ox) 800 mg UNSCH PRN PO For Magnesium 1.2 - 1.6 mg/dL; Start 11/12/16 at 08:30; Stop 11/24/16 at 07:46; Status DC Magnesium Sulfate 2 gm/Sodium Chloride 100 ml @ 50 mls/hr UNSCH PRN IV For Magnesium 1.2 - 1.6 mg/dL; Start 11/12/16 at 08:30; Stop 11/24/16 at 07:46; Status DC Potassium Phosphate (K-Phos) 2,000 mg Q4H PRN PO For Phosphorus < 2.5 mg/dL Last administered on 11/13/16 10:35; Start 11/12/16 at 08:30; Stop 11/24/16 at 07 :46; Status DC Sodium Phosphate 30 mmol/Sodium Chloride 250 ml @ 42 mls/hr UNSCH PRN IV For Phosphorus < 2.5 mg/dL Last administered on 11/19/16 13:58; Start 11/12/16 at 08 :30; Stop 11/24/16 at 07:46; Status DC Potassium Phosphate (K-Phos) 2,000 mg UNSCH PRN PO/TUBE SEE LABEL COMMENTS; Start 11/12/16 at 08:30; Stop 11/24/16 at 07:46; Status DC Potassium Phosphate 30 mmol/ Sodium Chloride 260 ml @ 42 mls/hr UNSCH PRN IV SEE LABEL COMMENTS Last administered on 11/14/16 06:15; Start 11/12/16 at 08:30; Stop 11/24/16 at 07:46; Status DC Acetaminophen (Tylenol 650 Mg/ 20 ml Liq) 650 mg Q6H PRN NG FEVER Last administered on 12/20/16 02:14; Start 11/12/16 at 08:45 Vancomycin HCl 2500 mg/Sodium Chloride 525 ml @ 250 mls/hr ONCE ONCE IV ; Start 11/12/16 at 10:00; Stop 11/12/16 at 10:00; Status DC Vancomycin HCl 2000 mg/Sodium Chloride 520 ml @ 250 mls/hr Q24H IV Last administered on 11/14/16 10:23; Start 11/12/16 at 11:00; Stop 11/15/16 at 10:51; Status DC Sodium Chloride 500 ml @ 20 mls/hr Q24H IV Last administered on 11/16/16 08: 34; Start 11/12/16 at 09:00; Stop 11/16/16 at 09:35; Status DC Miscellaneous Information SPECIFIC LAB TO BE DRAWN:VANCOMYCIN TROUGH DATE TO... ONCE ONCE .XX Last administered on 11/15/16 10:40; Start 11/15/16 at 10:45; Stop 11/15/16 at 10:46; Status DC Lorazepam (Ativan Inj) 2 mg ONCE ONCE IV PUSH Last administered on 11/12/16 12 :43; Start 11/12/16 at 12:30; Stop 11/12/16 at 12:31; Status DC Levetriacetam 100 ml @ 400 mls/hr Q8HR IV Last administered on 11/30/16 05:35 ; Start 11/12/16 at 22:00; Status Future Hold Fosphenytoin Sodium (Cerebyx Inj) 100 mgpe Q6HR IV Last administered on 05:34; Start 11/12/16 at 18:00; Stop 11/18/16 at 13:11; Status DC Potassium Phosphate 30 mmol/ Sodium Chloride 260 ml @ 43.333 mls/ hr ONCE ONCE IV Last administered on 11/13/16 15:42; Start 11/13/16 at 13:45; Stop at 19:44; Status DC Polyethylene Glycol (Miralax) 17 gm BID OG-TUBE Last administered on 20:34; Start 11/13/16 at 21:00 Lactulose (Lactulose Liq) 30 ml DAILY PO Last administered on 12/02/16 09:54; Start 11/14/16 at 09:00; Status Future Hold Lactulose (Lactulose Liq) 30 ml ONCE ONCE PO Last administered on 11/13/16 15: 42; Start 11/13/16 at 15:00; Stop 11/13/16 at 15:01; Status DC Mineral Oil (Mineral Oil Liq) 30 ml ONCE ONCE PO ; Start 11/13/16 at 16:00; Stop 11/13/16 at 16:01; Status DC Glycerin (Glycerin Adult Supp) 2 gm BID PRN RECTAL CONSTIPATION - SEVERE; Start 11/13/16 at 15:00 Fosphenytoin Sodium (Cerebyx Inj) 300 mgpe ONCE ONCE IV Last administered on 15:43; Start 11/13/16 at 16:00; Stop 11/13/16 at 16:01; Status DC Hydralazine HCl (Apresoline Inj) 20 mg Q4H PRN IV PUSH SBP>150, DBP>90 Last administered on 11/14/16 03:07; Start 11/14/16 at 02:15 Metoprolol Tartrate (Lopressor Inj) 5 mg Q6H PRN IV PUSH HR>100 Last administered on 11/21/16 15:18; Start 11/14/16 at 03:30; Stop 11/22/16 at 10:47 ; Status DC Metoprolol Tartrate (Lopressor) 25 mg Q12HR PO Last administered on 12/12/16 08:04; Start 11/16/16 at 09:30; Stop 12/12/16 at 17:53; Status DC Furosemide (Lasix Inj) 40 mg ONCE ONCE IV PUSH Last administered on 11/16/16 10:34; Start 11/16/16 at 09:30; Stop 11/16/16 at 09:36; Status DC Furosemide (Lasix Inj) 40 mg BID@,18 IV PUSH Last administered on 11/16/16 17:11; Start 11/16/16 at 18:00; Stop 11/17/16 at 08:47; Status DC Midazolam HCl (Versed Inj) 2 mg ONCE ONCE IV PUSH Last administered on 05:31; Start 11/17/16 at 05:30; Stop 11/17/16 at 05:31; Status DC Fentanyl Citrate (fentaNYL INJ) 100 mcg ONCE ONCE IV PUSH Last administered on 11/17/16 05:31; Start 11/17/16 at 05:30; Stop 11/17/16 at 05:31; Status DC Fentanyl Citrate (fentaNYL INJ) 100 mcg STK-MED ONCE .ROUTE ; Start 11/17/16 at 05:30; Stop 11/17/16 at 05:31; Status DC Midazolam HCl (Versed Inj) 2 mg STK-MED ONCE .ROUTE ; Start 11/17/16 at 05:30; Stop 11/17/16 at 05:31; Status DC Sodium Chloride 1,000 ml @ 999 mls/hr BOLUS ONCE IV Last administered on 11/17 06:15; Start 11/17/16 at 06:15; Stop 11/17/16 at 07:15; Status DC Sodium Chloride 1,000 ml @ 999 mls/hr BOLUS ONCE IV Last administered on 11/17 06:15; Start 11/17/16 at 06:15; Stop 11/17/16 at 07:15; Status DC Insulin Detemir (Levemir Inj) 12 units Q12HR SQ Last administered on 11/24/16 09:00; Start 11/17/16 at 09:00; Stop 11/24/16 at 16:11; Status DC Dextrose (D50w (Vial) Inj) 50 ml UNSCH PRN IV HYPOGLYCEMIA-SEE COMMENTS; Start 11/17/16 at 08:15; Status UNV Glucagon (Glucagon Inj) 1 mg UNSCH PRN OTHER HYPOGLYCEMIA-SEE COMMENTS; Start 11/17/16 at 08:15; Status UNV Insulin Aspart (NovoLOG SUPPLEMENTAL SCALE) 1 Q6H SQ Last administered on 22:13; Start 11/17/16 at 09:00; Stop 11/24/16 at 16:17; Status DC Pharmacy Profile Note 0 ml @ 0 mls/hr UNSCH OTHER ; Start 11/17/16 at 08:15; Stop 12/10/16 at 09:28; Status DC Cefepime HCl 2000 mg/Sodium Chloride 100 ml @ 200 mls/hr Q12H IV Last administered on 11/20/16 09:03; Start 11/17/16 at 09:00; Stop 11/20/16 at 11:24 ; Status DC Potassium Chloride/Sodium Chloride 1,000 ml @ 100 mls/hr Q10H IV Last administered on 11/18/16 04:02; Start 11/17/16 at 08:45; Stop 11/18/16 at 09:29 ; Status DC Metronidazole (Flagyl) 500 mg Q8HR PO Last administered on 11/21/16 07:50; Start 11/17/16 at 09:00; Stop 11/21/16 at 14:08; Status DC Sodium Chloride 1,000 ml @ 999 mls/hr BOLUS ONCE IV Last administered on 11/17 09:32; Start 11/17/16 at 09:00; Stop 11/17/16 at 10:00; Status DC Vancomycin HCl 2000 mg/Sodium Chloride 520 ml @ 260 mls/hr ONCE ONCE IV Last administered on 11/17/16 13:12; Start 11/17/16 at 12:00; Stop 11/17/16 at 13:59 ; Status DC Furosemide (Lasix Inj) 60 mg ONCE ONCE IV PUSH Last administered on 11/18/16 09:36; Start 11/18/16 at 09:30; Stop 11/18/16 at 09:31; Status DC Albuterol/ Ipratropium (Duoneb Neb) 1 ampule Q6HR NEB NEB Last administered on 11/22/16 08:01; Start 11/18/16 at 10:00; Stop 11/22/16 at 09:59; Status DC Vancomycin HCl 2250 mg/Sodium Chloride 522.5 ml @ 250 mls/hr Q18H IV Last administered on 11/21/16 15:10; Start 11/18/16 at 13:00; Stop 11/23/16 at 08:53 ; Status DC Miscellaneous Information SPECIFIC LAB TO BE DRAWN:VANCO TROUGH DATE TO... ONCE ONCE .XX Last administered on 11/20/16 00:45; Start 11/20/16 at 00:45; Stop 11/20/16 at 00:46; Status DC Fosphenytoin Sodium 100 mgpe/ Sodium Chloride 52 ml @ 208 mls/hr Q6HR IV Last administered on 11/30/16 13:10; Start 11/18/16 at 13:00; Status Future Hold Diltiazem HCl (Cardizem Inj) 15 mg ONCE ONCE IV PUSH Last administered on 11/19 01:01; Start 11/19/16 at 00:45; Stop 11/19/16 at 00:48; Status DC Diltiazem HCl 125 mg/Sodium Chloride 125 ml @ 5 mls/hr TITRATE PRN IV Tachycardia; Start 11/19/16 at 00:45; Stop 11/22/16 at 10:47; Status DC Metoprolol Tartrate (Lopressor Inj) 5 mg ONCE ONCE IV PUSH Last administered on 11/19/16 00:53; Start 11/19/16 at 00:45; Stop 11/19/16 at 00:49; Status DC Digoxin (Lanoxin Inj) 0.25 mg ONCE ONCE IV PUSH ; Start 11/19/16 at 00:45; Stop 11/19/16 at 00:47; Status DC Miscellaneous Information SPECIFIC LAB TO BE RENETTA... ONCE ONCE .XX Last administered on 11/22/16 06:45; Start 11/22/16 at 06:45; Stop 11/22/16 at 06:46 ; Status DC Norepinephrine Bitartrate 4 mg/ Sodium Chloride 250 ml @ 7.5 mls/hr TITRATE PRN IV Blood pressure management; Start 11/20/16 at 16:30; Stop 11/21/16 at 14: 08; Status DC Terbutaline Sulfate (Brethine Inj) 1 mg UNSCH PRN SQ For Extravasation; Start 11/20/16 at 16:30 Sodium Chloride 500 ml @ 20 mls/hr ONCE ONCE IV Last administered on 18:05; Start 11/20/16 at 16:30; Stop 11/21/16 at 14:08; Status DC Furosemide (Lasix Inj) 40 mg ONCE ONCE IV PUSH Last administered on 11/21/16 09:31; Start 11/21/16 at 09:30; Stop 11/21/16 at 09:31; Status DC Albuterol/ Ipratropium (Duoneb Neb) 1 ampule ONCE ONCE NEB Last administered on 11/21/16 09:30; Start 11/21/16 at 09:30; Stop 11/21/16 at 10:00; Status DC Potassium Chloride 100 ml @ 50 mls/hr BOLUS ONCE IV ; Start 11/21/16 at 10:15 ; Stop 11/21/16 at 12:14; Status DC Furosemide (Lasix Inj) 40 mg DAILY IV PUSH Last administered on 12/22/16 08: 31; Start 11/22/16 at 11:00 Vancomycin HCl 1600 mg/Sodium Chloride 516 ml @ 250 mls/hr ONCE ONCE IV Last administered on 11/23/16 10:47; Start 11/23/16 at 11:00; Stop 11/23/16 at 13:03 ; Status DC Vancomycin HCl 1500 mg/Sodium Chloride 515 ml @ 257.5 mls/ hr Q24H IV Last administered on 11/29/16 12:20; Start 11/24/16 at 13:00; Stop 11/30/16 at 14:50 ; Status DC Miscellaneous Information SPECIFIC LAB TO BE RENETTA... ONCE ONCE .XX Last administered on 11/26/16 12:45; Start 11/26/16 at 12:45; Stop 11/26/16 at 12:46 ; Status DC Dextrose (D50w (Syr) Inj) 50 ml STK-MED ONCE .ROUTE Last administered on 15:18; Start 11/24/16 at 15:14; Stop 11/24/16 at 15:15; Status DC Dextrose (D50w (Syr) Inj) 50 ml STK-MED ONCE .ROUTE ; Start 11/24/16 at 15:21; Stop 11/24/16 at 15:22; Status DC Insulin Aspart (NovoLOG SUPPLEMENTAL SCALE) 1 ACHS SLIDING SCALE SQ Last administered on 12/16/16 08:42; Start 11/24/16 at 17:00; Stop 12/16/16 at 10: 40; Status DC Dextrose (D50w (Syr) Inj) 50 ml UNSCH PRN IV HYPOGLYCEMIA-SEE COMMENTS Last administered on 11/25/16 09:46; Start 11/25/16 at 09:30 Megestrol Acetate (Megace Liq) 400 mg ONCE ONCE PO Last administered on 13:08; Start 11/25/16 at 11:15; Stop 11/25/16 at 11:19; Status DC Megestrol Acetate (Megace Liq) 400 mg DAILY PO Last administered on 12/22/16 08:30; Start 11/26/16 at 09:00 Calcium Carbonate (Tums Chew) 500 mg ONCE ONCE CHEW Last administered on 10:47; Start 11/26/16 at 08:15; Stop 11/26/16 at 08:17; Status DC Calcium Carbonate (Tums Chew) 500 mg Q12HR CHEW Last administered on 12/05/16 20:51; Start 11/26/16 at 09:00; Stop 12/06/16 at 08:59; Status DC Potassium Phosphate (K-Phos) 500 mg DAILY PO Last administered on 11/28/16 09: 19; Start 11/26/16 at 09:00; Stop 11/29/16 at 08:59; Status DC Miscellaneous Information SPECIFIC LAB TO BE DRAWN:VANCOMYCIN TROUGH DATE TO... ONCE ONCE .XX Last administered on 11/30/16 12:45; Start 11/30/16 at 12:45; Stop 11/30/16 at 12:46; Status DC Potassium Bicarb/ Potassium Chloride (K-Lyte Cl Eff) 50 meq ONCE ONCE PO Last administered on 11/29/16 10:43; Start 11/29/16 at 10:30; Stop 11/29/16 at 10:31; Status DC Vancomycin HCl 1750 mg/Sodium Chloride 517.5 ml @ 257.5 mls/ hr Q24H IV ; Start 11/30/16 at 17:00; Stop 12/01/16 at 17:17; Status DC Miscellaneous Information SPECIFIC LAB TO BE RENETTA... ONCE ONCE .XX Last administered on 12/03/16 17:45; Start 12/03/16 at 17:45; Stop 12/03/16 at 17:46 ; Status DC Levetriacetam (Keppra) 1,000 mg Q8HR PO Last administered on 12/22/16 05:59; Start 11/30/16 at 22:00 Phenytoin (Dilantin) 100 mg Q6HR PO Last administered on 12/14/16 06:48; Start 11/30/16 at 19:45; Stop 12/14/16 at 11:06; Status DC Vancomycin HCl 1750 mg/Sodium Chloride 517.5 ml @ 257.5 mls/ hr Q24H IV Last administered on 12/09/16 17:27; Start 12/01/16 at 18:00; Stop 12/10/16 at 09:28 ; Status DC Aztreonam 2000 mg/ Sodium Chloride 100 ml @ 200 mls/hr Q12H IV Last administered on 12/04/16 00:10; Start 12/02/16 at 12:00; Stop 12/04/16 at 11:08 ; Status DC Mupirocin (Bactroban 2% Cream) 1 applic Q12HR TOPICAL Last administered on 08:41; Start 12/02/16 at 21:00 Fluconazole (Diflucan) 100 mg DAILY PO Last administered on 12/18/16 09:40; Start 12/04/16 at 09:00; Stop 12/18/16 at 13:32; Status DC Belladonna Alkaloids/Opium (B & O Supp) 60 mg Q6HR RECTAL Last administered on 12/05/16 05:22; Start 12/03/16 at 18:00; Stop 12/05/16 at 08:31; Status DC Collagenase (Santyl Oint) 1 applic DAILY TOPICAL Last administered on 08:31; Start 12/04/16 at 12:00 Albuterol/ Ipratropium (Duoneb Neb) 1 ampule Q6HR WHILE AWAKE NEB NEB Last administered on 12/07/16 19:43; Start 12/04/16 at 14:00; Stop 12/08/16 at 12:35 ; Status DC Hyoscyamine Sulfate (Levsin) 0.125 mg Q4H PRN PO abdo spasm; Start 12/04/16 at 11:30 Heparin Sodium (Porcine) (Heparin Central Flush) 200 units DAILY IV FLUSH Last administered on 12/21/16 08:33; Start 12/05/16 at 12:00 Miscellaneous Information SPECIFIC LAB TO BE DRAWN:VANCOMYCIN TROUGH DATE TO... ONCE ONCE .XX Last administered on 12/09/16 16:54; Start 12/09/16 at 17:45; Stop 12/09/16 at 17:46; Status DC Potassium Chloride (KCl) 30 meq ONCE ONCE PO Last administered on 12/07/16 13 :03; Start 12/07/16 at 13:00; Stop 12/07/16 at 13:01; Status DC Albuterol/ Ipratropium (Duoneb Neb) 1 ampule Q6HR WHILE AWAKE NEB NEB Last administered on 12/12/16 10:13; Start 12/08/16 at 14:00; Stop 12/12/16 at 12:29 ; Status DC Miscellaneous Information SPECIFIC LAB TO BE DRAWN:VANCO TROUGH DATE TO BE DR... ONCE ONCE .XX ; Start 12/11/16 at 17:45; Stop 12/11/16 at 17:46; Status Cancel Acetaminophen (Tylenol 160 Mg/ 5 ml Liq) 650 mg Q4H PRN PO PAIN SCALE 1-10 Last administered on 12/14/16 02:33; Start 12/11/16 at 11:00 Potassium Bicarb/ Potassium Chloride (K-Lyte Cl Eff) 50 meq ONCE ONCE PO ; Start 12/12/16 at 11:00; Stop 12/12/16 at 11:10; Status DC Potassium Chloride 100 ml @ 50 mls/hr Q2H IV Last administered on 12/12/16 14 :20; Start 12/12/16 at 11:30; Stop 12/12/16 at 15:29; Status DC Potassium Bicarb/ Potassium Chloride (K-Lyte Cl Eff) 25 meq ONCE ONCE PO Last administered on 12/12/16 11:50; Start 12/12/16 at 11:30; Stop 12/12/16 at 11:31; Status DC Metoprolol Tartrate (Lopressor) 25 mg TID PO Last administered on 12/12/16 18: 31; Start 12/12/16 at 18:00; Stop 12/13/16 at 00:44; Status DC Metoprolol Tartrate (Lopressor) 25 mg Q8HR PO Last administered on 12/22/16 05:59; Start 12/13/16 at 00:45 Phenytoin (Dilantin) 100 mg TID PO Last administered on 12/22/16 08:31; Start 12/14/16 at 13:00 Potassium Chloride (KCl) 40 meq ONCE ONCE PO Last administered on 12/16/16 11:45; Start 12/16/16 at 10:30; Stop 12/16/16 at 10:31; Status DC Potassium Chloride (KCl) 40 meq ONCE ONCE PO Last administered on 12/16/16 14:04; Start 12/16/16 at 13:00; Stop 12/16/16 at 13:01; Status DC Insulin Human Regular (NovoLIN R SUPPLEMENTAL SCALE) 1 ACHS SLIDING SCALE SQ Last administered on 12/21/16 21:00; Start 12/16/16 at 12:00 Amlodipine Besylate (Norvasc) 5 mg DAILY PO Last administered on 12/22/16 08: 30; Start 12/17/16 at 12:00 Insulin Detemir (Levemir Inj) 5 units Q12H SQ Last administered on 12/19/16 00:19; Start 12/17/16 at 12:00; Stop 12/19/16 at 10:29; Status DC Insulin Detemir (Levemir Inj) 10 units Q12H SQ Last administered on 12/20/16 12:00; Start 12/19/16 at 12:00; Stop 12/21/16 at 00:28; Status DC Insulin Detemir (Levemir Inj) 5 units ONCE ONCE SQ Last administered on 13:36; Start 12/19/16 at 11:15; Stop 12/19/16 at 11:16; Status DC Collagenase (Santyl Oint) 1 applic DAILY TOPICAL Last administered on 08:31; Start 12/19/16 at 14:45 Potassium Bicarb/ Potassium Chloride (K-Lyte Cl Eff) 25 meq ONCE ONCE PO Last administered on 12/20/16 10:00; Start 12/20/16 at 10:00; Stop 12/20/16 at 10:01; Status DC Insulin Detemir (Levemir Inj) 10 units BID SQ Last administered on 12/22/16 08:31; Start 12/21/16 at 09:00 Date of Insertion: Nov 12, 2016 Line: Central Venous Catheter Side: Right Location: Internal, Jugular A/P Problem List: (1) Subdural hematoma ICD Code: I62.00 - Nontraumatic subdural hemorrhage, unspecified Status: Acute (2) Diabetes ICD Code: E11.9 - Type 2 diabetes mellitus without complications Status: Chronic (3) Leukocytosis ICD Code: D72.829 - Elevated white blood cell count, unspecified Status: Acute (4) HTN (hypertension) ICD Code: I10 - Essential (primary) hypertension Status: Chronic (5) Dysphagia ICD Code: R13.10 - Dysphagia, unspecified (6) Urinary tract infection ICD Code: N39.0 - Urinary tract infection, site not specified Assessment and Plan 80 y/o with a history of HTN, DM, and BPH presented to the ED after a fall at home, with a LOC for 10-15 mins. Closed head injury Subdural hematoma Bilateral intracranial hemorrhaging - Managed by neurosurgery and no indication for surgery. - Neuro checks, seizure precautions - Keppra and Cerebyx on hold. Metabolic encephalopathy-improving - head CT 12/01/16 showed Bilateral hypodense subdural hematomas are seen in the occipital region and along the tentorium cerebelli on the right as well as small right frontal subdural hematoma unchanged. The left frontal parenchymal bleed is decreased in density with a small amount of edema identified. There is atrophy and moderate confluent hypodense white matter disease in the periventricular regions. The right frontal and left insular bleeds are much less conspicuous with a small amount of residual high density in the right frontal region with a small amount of surrounding edema. There is no midline shift or mass effect. Vascular calcifications are noted. No fractures. Anemia - WBC 15.2 -->13.4 --> 16.4 --> 13.0 - Hematology following. Ordered other testing R/O other bone marrow abnormality. Follow results. - Blood cultures no growth in 5 days. DC Vanco as planned. - Continue to trend WBC. 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 Atrial fibrillation Hypertension - Continue with Lopressor 25mg BID, increase to TID for better rate control and BP control - Oral anticoagulation contraindicated secondary to intracranial bleed - Monitor BP Trend, HR Decubitus ulcer, DTI sacral area - Continue Santyl - Wound care following. Recommends mable thick coverage of Santyl ointment. 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 Diabetes mellitus - hemoglobin A1c 6.0 - ISS. Uncontrolled blood sugars, will continue sliding scale increased Levemir to 10 units BID. MONITOR BLOOD SUGARS Occlusive DVT in cephalic vein right upper extremity - Hematology consultation appreciated however oral anticoagulation contraindicated - Avoid IV access RUE Urinary tract infection - off Azactam 1 g IV every 12H - on Diflucan 100 mg by mouth daily 12/03/16 secondary to been culture positive for Jane, Stop 12/18/16 will follow Urinalysis and culture, he has Noriega cath high risk for reinfection. Electrolyte derangement replaced. Prophylaxis GI - lanosprazole DVT - SCD/pharmacological prophylaxis when okay with neurosurgery AM LABS Discussed with Patient and his Daughter in the room, Discharge Planning AWAIT SAFE PLACEMENT AND RETURN TO HIS HOMELAND Problem Qualifiers (1) HTN (hypertension): Qualified Codes: I10 - Essential (primary) hypertension Lawrence Deal DO Dec 22, 2016 13:06
--- NOTE | 2016-12-22 13:09 | HHI.NSPN ---
History Chief Complaint: Unable to obtain due to patient's clinical condition. Interval History A little more alert today. According to family he is saying a few words and responds to questions, remains confused, following a few commands occasionally. Exam Results Vital Signs Date Time Temp Pulse Resp B/P (MAP) Pulse Ox O2 Delivery O2 Flow Rate FiO2 12/22/16 13:00 97.5 101 20 137/74 (95) 98 Intake and Output 12/22/16 12/22/16 12/23/16 08:00 16:00 00:00 Output Total 175 ml Balance -175 ml Physical Examination Resp: CTA bilaterally Heart: NSR no murmurs Abd: Soft positive bs Skin: No cyanosis or erythema Neuro: Pt awake and alert. He focuses and follows relatively well to the right and left. Moves upper and lower extremities with moderate strength spontaneous. Not following commands this morning. Medical Decision Making Impression and Plan Impression/plan: 1. Traumatic brain injury. Most recent CT scan stable with resolving contusions, stable mild to moderate subdural fluid collections without significant mass effect. 2. UTI. Initial treatment completed. Follow-up urine culture negative thus far. 3. Hypertension, atrial fibrillation. Remains on Lopressor. 3. Recent seizures. He remains on Keppra and Dilantin. Dilantin level today satisfactory 4. Sacral decubitus ulcer. Continuing decubitus precautions, wound care, Santyl 5. Leukocytosis. Hematology following-workup in progress 6. Diabetes. Remains on insulin sliding scale. 7. Respiratory insufficiency. Improving. Most recent chest x-ray improved. Weaning off oxygen. Family is continuing efforts to have the patient transferred back to [facility]. Tony Godfrey MD Dec 22, 2016 13:09
--- NOTE | 2016-12-22 15:32 | HHI.HCPN ---
Reason for visit a. To assist with evaluation and management of symptoms including: Encephalopathy, debility, dysphasia b. To assist medical decision maker(s) with: better understanding of current medical conditions; weighing benefits/burdens of medical treatment options; making medical treatment decisions. . (Axel Whitney) Subjective/Interval History Mr. 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 He presented to [facility] ED on 2016 via EMS from his home after a witnessed fall with loss of consciousness. Per EMS report, the patient was observed by his grandson walking into the house when he missed the front step falling backward onto the concrete walkway and hitting his head. Patient seen in room. Sleeping but easily arousable. Daughter at bedside. Patient not communicating much and daughter verbalizes that he does communicate with her in indonesian though he is not talking much and seems to be sleeping more. Daughter reported that patient sometimes does not participate in PT because he is very sleepy. Patient is afebrile. SBP 130s- 140s. O2 saturation high 90s on room air. Speech therapy following. Per daughter patient takes a long time to finish his meals. Patient needs to be fed. No current imaging and laboratory workup. Discussed case with bedside RN. Daughter stated that they are still waiting for clearance from [facility] to have patient transferred to [facility]. . Family/friend interactions Spoke to patients matthieu Cardozo at bedside. Awaiting clearance from [facility]. . (Axel Whitney) Advance Directives Living Will: Never completed Health Care Surrogate: Never completed Durable Power of Client Relationship Consultant: Never completed (Axel Whitney) Advance Directive Specifics Documented care wishes: No known documented care wishes are available. . (Axel Whitney) Objective Vital Signs Date Time Temp Pulse Resp B/P (MAP) Pulse Ox O2 Delivery O2 Flow Rate FiO2 12/22/16 13:00 97.5 101 20 137/74 (95) 98 12/22/16 08:41 97.8 94 20 135/82 (99) 97 12/22/16 05:00 98.2 98 18 142/76 (98) 96 12/22/16 00:29 97.4 92 18 161/82 (108) 97 12/21/16 20:30 97.4 102 20 171/89 (116) 98 12/21/16 15:32 97.8 91 16 141/74 (96) 99 Intake & Output 12/22/16 12/22/16 07:00 19:00 Output Total 175 ml Balance -175 ml Output Urine Total 175 ml # Bowel Movements 1 Physical Exam CONSTITUTIONAL/GENERAL: This is an elderly, ill looking frail man with no signs of distress or discomfort. TUBES/LINES/DRAINS:PIV, Noriega catheter SKIN: No jaundice, rashes, or lesions. Ecchymoses to all 4 extremities. No wounds seen anteriorly. Skin temperature appropriate. Not diaphoretic. HEAD: Atraumatic. Normocephalic. EYES: Pupils equal and round and reactive. Extraocular motions intact. No scleral icterus. No injection or drainage. Fundi not examined. ENT: Hard of hearing . Nose without bleeding or purulent drainage. Moist oral mucosa. NECK: Trachea midline. Supple, nontender. CARDIOVASCULAR: Regular rate and rhythm without murmurs, gallops, or rubs. No JVD. Peripheral pulses symmetric. RESPIRATORY/CHEST: Symmetric, unlabored respirations. Clear to auscultation. Breath sounds equal bilaterally. No wheezes, rales, or rhonchi. GASTROINTESTINAL: Abdomen soft, non-tender, nondistended. No guarding. Bowel sounds present. GENITOURINARY: Without palpable bladder distension. Noriega catheter in place. MUSCULOSKELETAL: Extremities without clubbing, cyanosis.No edema to all 4 extremities. No mottling or clubbing. NEUROLOGICAL: Sleeping and easily arousable. Motor and sensory grossly within normal limits.Follows simple commands when asked in Slovenian by daughter. Moves all extremities. PSYCHIATRIC: No obvious anxiety/depression. no apparent hallucinations or other psychotic thought process. . (Axel Whitney) Diagnostic Tests Laboratory Laboratory Tests Test 12/20/16 08:03 Potassium Level 3.6 MEQ/L (3.5-5.1) Phosphorus Level 3.2 MG/DL (2.5-4.9) Magnesium Level 2.0 MG/DL (1.5-2.5) (Axel Whitney) Result Diagram: 12/20/16 0803 Imaging Last Impressions Brain MRI 12/13/16 0000 Signed Impressions: Service Date/Time: Tuesday, December 13, 2016 12:20 - CONCLUSION: 1. The examination demonstrates multiple small areas of intraparenchymal and extra-axial hemorrhage as described above. These areas are more apparent on the patient's MRI examination than on the CT. Direct comparison is made. The areas of edema and hemorrhage appear similar though they are isointense on the CT. 2. 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 There is cortical atrophy. Anthony Burns MD Chest X-Ray 12/04/16 0000 Signed Impressions: Service Date/Time: November 11:58 - CONCLUSION: Improving aeration. Lonnie Blanchard MD Upper Extremity Ultrasound 12/02/16 0000 Signed Impressions: Service Date/Time: Saturday, December 03, 2016 00:53 - CONCLUSION: 1. Occlusive DVT in the cephalic and basilic vein on the right. Alex Goode MD Head CT 12/01/16 0000 Signed Impressions: Service Date/Time: Thursday, December 01, 2016 13:14 - CONCLUSION: Evolving intracranial hemorrhagic foci as above, both intra-axial and extra-axial. Jesus Lee MD Modified Barium Swallow 11/30/16 0000 Signed Impressions: Service Date/Time: Wednesday, November 30, 2016 00:00 - CONCLUSION: Please refer to speech pathology report for full details. Lonnie Cook MD Transcranial Doppler Study Complete 11/17/16 0000 Signed Impressions: Service Date/Time: Thursday, November 17, 2016 10:03 - CONCLUSION: 1. Nondiagnostic examination due to poor transcranial windows. Konstantin Dash MD Abdomen X-Ray 11/12/16 0000 Signed Impressions: Service Date/Time: Saturday, November 12, 2016 08:23 - CONCLUSION: 1. Gastric tube in good position. 2. Probable right renal stones. Narayan Coulter MD Cervical Spine CT 11/09/161950 Signed Impressions: Service Date/Time: Wednesday, November 09, 2016 20:14 - CONCLUSION: Negative trauma CT. Cj Isidro MD Procedures 11/12/2016: Right IJ CVL placement 11/12/2016: Intubation 12/19/2016: Extubation (Axel Whitney) Assessment and Plan Disease Oriented Problem List: (1) Sacral decubitus ulcer (2) Atrial fibrillation (3) Subdural hematoma (4) Leukocytosis (5) HTN (hypertension) (6) Urinary tract infection (7) Traumatic brain injury (8) Diabetes (9) Post traumatic seizure Symptom Scale: (1) Debility 0-10 Scale: Unable to quantify (2) Encephalopathy 0-10 Scale: Unable to quantify (3) Dysphasia 0-10 Scale: Unable to quantify Pertinent Non-Medical Issues Psychosocial: Patient was born in [place]. His preferred pain which is Slovenian. He has been to his (Marlene) for approximately 60 years. Together they have 4 children (2 boys and 2 girls) and 14 grandchildren. 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 [facility]. He loves to travel and visits his son in the [place] yearly; he also spends time in each at every year. Spiritual: Buddhist Legal: Per [place] statutes, in the absence of written advanced directives healthcare proxy decision making would fall to the patient's . However, the patient's family is making decisions together and have mutually agreed on aggressive goals at this time. Ethical issues impacting care: No known ethical issues impacting care at this time. . Important Contacts Marty Garza: son: [phone] Karen Castro: [id number]: [phone] . Prognosis Patient is a 81-year-old male who sustained a traumatic brain injury after a fall with LOC on 11/09/2016. MRI brain demonstrates intraparenchymal & extra-axial hemorrhages w/edema stable when compared to CT. 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 Patient remains intermittently confused with ongoing neurological deficits. He is on Keppra and Dilantin for generalized seizures that were noted on EEG. Patient's hospitalization has been complicated by bacteremia and UTI. Given the patient's advanced age, complicated hospital course is persistent neurological deficits; he is at risk for ongoing decline and continued complications requiring rehospitalization. . Code Status: Full Code Plan * FULL CODE * Decision-making: Per [place] statutes, in the absence of written advanced directives healthcare proxy decision making would fall to the patient's . However, the patient's family is making decisions together and have mutually agreed on aggressive goals at this time. * Goals -12/22/2016- Remain Aggressive * Symptom management - dysphasia: Patient tolerating pured diet with nectar consistency thickened liquids without any signs or symptoms of aspiration. His intake is poor per family. Requires to be fed, per daughter patient takes a long time to finish a meal- approximately 1 hour. Speech therapy continues to follow. Continues to be at risk for aspiration, close monitoring required when eating. * Symptom management - debility: Patient was active prior to this hospitalization traveling every year to the [place] to visit his son/ family and spending a month in [place]. Family reports the patient had experienced increased dizziness and balance disturbances from baseline for 2 weeks prior to his fall and subsequent brain injury. Requires Felton lift for transfers from bed to chair. Occupational therapy and physical therapy following. Patient increasingly getting sleepy and weaker, unable to participate in therapy. * Palliative care contact information provided to the patient's daughter. * Palliative care will continue to follow this patient throughout his hospitalization to establish trust, assist with symptom management and clarification of medical treatment goals. (Axel Whitney) Plan Plan Above assessment and plan reviewed, patient evaluated in dual visit with GILBERTO Zheng. Agree with above assessment and plan. (Hillary Wen) Attestation To help prompt me to consider important information that might be impacting today's encounter and assessment, information from prior notes written by myself or my colleagues may have been "brought forward" into today's note. My signature on this note, however, is an attestation that I personally performed the exam, history, and/or decision-making noted today, and, unless otherwise indicated, the interactions with patient, family, and staff as well as the review of records all occurred today. I also attest that the listed assessment and stated plan reflect my best clinical judgment today based on the combination of historical information, prior notes, and today's exam/ interactions. When time spent is documented, it refers only to time spent today by the signer, or if indicated, combined time spent today by collaborating physician/nurse practitioner. . (Axel Whitney) Axel Whitney Dec 22, 2016 15:32 Hillary Wen Dec 22, 2016 17:22
--- NOTE | 2016-12-22 15:58 | PD.ONC.PN ---
Subjective Subjective Remarks Resting in bed with daughter at bedside. Objective Data Date Time Temp Pulse Resp B/P (MAP) Pulse Ox O2 Delivery O2 Flow Rate FiO2 12/22/16 13:00 97.5 101 20 137/74 (95) 98 12/22/16 08:41 97.8 94 20 135/82 (99) 97 12/22/16 05:00 98.2 98 18 142/76 (98) 96 12/22/16 00:29 97.4 92 18 161/82 (108) 97 12/21/16 20:30 97.4 102 20 171/89 (116) 98 12/22/16 12/22/16 12/22/16 07:00 15:00 23:00 Output Total 175 ml Balance -175 ml Result Diagram: 12/20/16802 Administered Medications Medications (Trade) Dose Ordered Sig/Gregg Route PRN Reason Start Time Stop Time Status Last Admin Dose Admin Finasteride (Proscar) 5 mg DAILY PO 11/10/16 09:00 12/22/16 08:30 Tamsulosin HCl (Flomax) 0.4 mg HS PO 11/10/16 21:00 12/21/16 21:23 Tolterodine Tartrate (Detrol La) 2 mg DAILY PO 11/10/16 09:00 12/22/16 08:31 Glucagon (Glucagon Inj) 1 mg UNSCH PRN OTHER HYPOGLYCEMIA-SEE COMMENTS 11/09/16 23:45 11/24/16 03:48 Lorazepam (Ativan Inj) 1 mg Q5M PRN IV SEIZURES 11/12/16 00:45 11/12/16 01:45 Chlorhexidine Gluconate (Peridex 0.12% Liq) 15 ml BID@08,20 MT 11/12/16 08:00 12/21/16 21:38 Sodium Chloride (NS Flush) DAILY IVF 11/12/16 09:00 11/28/16 09:22 Lansoprazole (Prevacid Odt) 30 mg DAILY NG 11/12/16 09:00 12/22/16 08:30 Docusate Sodium (Colace Liq) 100 mg Q12HR PO 11/12/16 09:00 12/22/16 08:30 Sodium Chloride (NS Flush) 2 ml BID IV FLUSH 11/12/16 09:00 12/22/16 08:40 Artificial Tears (Tears Naturale Opth Soln) 1 drop TID EACH EYE 11/12/16 09:00 12/22/16 13:00 Ondansetron HCl (Zofran Inj) 4 mg Q6H PRN IV NAUSEA OR VOMITING 11/12/16 08:30 11/15/16 05:45 Albuterol Sulfate (Albuterol Neb) 2.5 mg Q2HR NEB PRN INH SOB/WHEEZING 11/12/16 08:30 11/29/16 21:19 Acetaminophen (Tylenol 650 Mg/ 20 ml Liq) 650 mg Q6H PRN NG FEVER 11/12/16 08:45 12/20/16 02:14 Levetriacetam 100 ml @ 400 mls/hr Q8HR IV 11/12/16 22:00 Future Hold 11/30/16 05:35 Polyethylene Glycol (Miralax) 17 gm BID OG-TUBE 11/13/16 21:00 12/19/16 20:34 Lactulose (Lactulose Liq) 30 ml DAILY PO 11/14/16 09:00 Future Hold 12/02/16 09:54 Hydralazine HCl (Apresoline Inj) 20 mg Q4H PRN IV PUSH SBP>150, DBP>90 11/14/16 02:15 11/14/16 03:07 Fosphenytoin Sodium 100 mgpe/ Sodium Chloride 52 ml @ 208 mls/hr Q6HR IV 11/18/16 13:00 Future Hold 11/30/16 13:10 Furosemide (Lasix Inj) 40 mg DAILY IV PUSH 11/22/16 11:00 12/22/16 08:31 Dextrose (D50w (Syr) Inj) 50 ml UNSCH PRN IV HYPOGLYCEMIA-SEE COMMENTS 11/25/16 09:30 11/25/16 09:46 Megestrol Acetate (Megace Liq) 400 mg DAILY PO 11/26/16 09:00 12/22/16 08:30 Levetriacetam (Keppra) 1,000 mg Q8HR PO 11/30/16 22:00 12/22/16 13:02 Mupirocin (Bactroban 2% Cream) 1 applic Q12HR TOPICAL 12/02/16 21:00 12/22/16 08:41 Collagenase (Santyl Oint) 1 applic DAILY TOPICAL 12/04/16 12:00 12/22/16 08:31 Heparin Sodium (Porcine) (Heparin Central Flush) 200 units DAILY IV FLUSH 12/05/16 12:00 12/21/16 08:33 Acetaminophen (Tylenol 160 Mg/ 5 ml Liq) 650 mg Q4H PRN PO PAIN SCALE 1-10 12/11/16 11:00 12/14/16 02:33 Metoprolol Tartrate (Lopressor) 25 mg Q8HR PO 12/13/16 00:45 12/22/16 13:02 Phenytoin (Dilantin) 100 mg TID PO 12/14/16 13:00 12/22/16 13:02 Insulin Human Regular (NovoLIN R SUPPLEMENTAL SCALE) 1 ACHS SLIDING SCALE SQ 12/16/16 12:00 12/21/16 21:00 Amlodipine Besylate (Norvasc) 5 mg DAILY PO 12/17/16 12:00 12/22/16 08:30 Collagenase (Santyl Oint) 1 applic DAILY TOPICAL 12/19/16 14:45 12/22/16 08:31 Insulin Detemir (Levemir Inj) 10 units BID SQ 12/21/16 09:00 12/22/16 08:31 Objective Remarks GENERAL: frail, elderly man, sleeping in bed SKIN: Warm and dry. HEAD: Normocephalic. LYMPHATIC: No adenopathy. RESPIRATORY: No accessory muscle use. GASTROINTESTINAL: Abdomen soft, non-tender, nondistended. NEUROLOGICAL: Per daughter he does not interact with family. Occasionally will say single words. Does not follow commands Assessment/Plan Assessment 1. Subdural and intracranial hemorrhage: sustained after fall. Mental status not at baseline. Neurosurgery service following closely. 2. Right sided cephalic and basilic vein clot: Recent intracranial bleed precludes systemic anticoagulation. 3. Anemia: ACD likely exacerbated by acute infection. B12, folate, haptoglobin WNL. Stable during hospitalization. Continue to follow. 4. 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 TCR gamma gene rearrangement is detected indicating the presence of a monoclonal lymphoid population. 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 Ideally would perform further evaluation to include bone marrow biopsy. Given seemingly indolent nature of this disease, no severe cytopenias, no B symptoms, no splenomegaly on exam and very frail status (PS of 4) patient would not be a candidate for treatment. This was discussed with his family at bedside. Will hold off on further evaluation at this time. If mental status and performance status improve can proceed with work up at a future date. Daughter stated that they are working on transferring patient to a hospital in [facility]. Hematology consult service will sign off at this time. Please call with further questions or concerns. Veronica Man MD Dec 22, 2016 15:58
[2016-12-22 16:30] VITALS: BP 138/75; PULSE 90; RESP 18; TEMP 98.6; O2SAT 98
[2016-12-22 20:00] VITALS: BP 148/66; PULSE 95; RESP 19; TEMP 97.8; O2SAT 100
[2016-12-22] MEDS: TAMSULOSIN HCL 0.4 MG CAP PO SCH (21:02)
[2016-12-23] VITALS: BP 146/72; PULSE 94; RESP 24; TEMP 97.9; O2SAT 99
[2016-12-23 04:00] VITALS: BP 154/88; PULSE 104; RESP 22; TEMP 97.8; O2SAT 97
[2016-12-23] MEDS: METOPROLOL TARTRATE 25 MG TAB PO SCH ×3 (05:20→21:09)
[2016-12-23] MEDS: levETIRAcetam 500 MG TAB PO SCH ×3 (05:20→21:09)
[2016-12-23 07:12] LABS: HEMATOCRIT 36.4 % (39.0-51.0); MEAN CELL VOLUME 87.6 FL (80.0-100.0); MEAN CORPUSCULAR HEMOGLOBIN 28.9 PG (27.0-34.0); PLATELET COUNT 425 TH/MM3 (150-450); RED BLOOD COUNT 4.15 MIL/MM3 (4.50-5.90); RED CELL DISTRIBUTION WIDTH 19.3 % (11.6-17.2); WHITE BLOOD COUNT 13.5 TH/MM3 (4.0-11.0)
[2016-12-23 07:14] LABS: HEMO FLAGS AUTO DIFF
[2016-12-23 07:44] LABS: ANION GAP 8 MEQ/L (5-15); AST (GOT) 46 U/L (15-37); BICARBONATE 28.7 MEQ/L (21.0-32.0); BLOOD UREA NITROGEN 29 MG/DL (7-18); CHLORIDE 104 MEQ/L (98-107); GLOMERULAR FILTRATION RATE 152 ML/MIN (>89); POTASSIUM 3.1 MEQ/L (3.5-5.1); SODIUM (NA) 141 MEQ/L (136-145)
[2016-12-23 07:45] LABS: ALT (GPT) 50 U/L (12-78)
[2016-12-23 07:47] LABS: ALKALINE PHOSPHATASE 169 U/L (45-117); TOTAL BILIRUBIN ADULT 0.7 MG/DL (0.2-1.0)
[2016-12-23 07:54] LABS: EOSINOPHILS 3 % (0-4); NEUTROPHIL # MANUAL DIFF 3.2 TH/MM3 (1.8-7.7); PLATELET ESTIMATE SMEAR NORMAL (NORMAL); POLYS (SEG NEUTROPHILS) 24 % (16-70); SCAN/DIFF FINAL DIFF MANUAL; WBC DIFF SAMPLE 100
[2016-12-23 07:55] LABS: PLATELET MORPHOLOGY NORMAL (NORMAL)
[2016-12-23 08:00] VITALS: BP 149/88; PULSE 99; RESP 18; TEMP 97.6; O2SAT 95
[2016-12-23] MEDS: CHLORHEXIDINE 0.12% (ORAL KIT) 15 ML CUP MT SCH ×2 (08:00→20:00)
[2016-12-23] MEDS: MEGESTROL ACETATE SUSP 400 MG/10 ML CUP PO SCH (08:51)
[2016-12-23] MEDS: INSULIN DETEMIR 100 UNITS/ML VIAL SQ SCH ×2 (08:51→21:00)
[2016-12-23] MEDS: LANSOPRAZOLE SOLUTAB 30 MG TAB NG SCH (08:53)
[2016-12-23] MEDS: TOLTERODINE TARTRATE 2 MG CAP LA PO SCH (08:53)
[2016-12-23] MEDS: amLODIPine BESYLATE 5 MG TAB PO SCH (08:53)
[2016-12-23] MEDS: PHENYTOIN SODIUM 100 MG CAP PO SCH ×3 (08:53→16:59)
[2016-12-23] MEDS: FINASTERIDE 5 MG TAB PO SCH (08:53)
[2016-12-23] MEDS: FUROSEMIDE 40 MG/4 ML VIAL IV PUSH SCH (08:56)
[2016-12-23] MEDS: ARTIFICIAL TEARS OPTH SOLN 15 ML BTL EACH EYE SCH ×3 (08:59→18:00)
[2016-12-23] MEDS: MUPIROCIN 2% CREAM 15 GM TOPICAL SCH ×2 (09:00→21:00)
[2016-12-23] MEDS: DOCUSATE SODIUM 100 MG/10 ML UDC PO SCH ×2 (09:00→21:09)
[2016-12-23] MEDS: COLLAGENASE OINT 30 GM TUBE TOPICAL SCH ×2 (09:00)
[2016-12-23] MEDS: SODIUM CHLORIDE 0.9% FLUSH 10 ML FLUSH IV FLUSH SCH ×2 (09:00→21:09)
[2016-12-23] MEDS: POLYETHYLENE GLYCOL 17 GM PKG OG-TUBE SCH ×2 (09:00→21:09)
[2016-12-23] MEDS: SODIUM CHLORIDE 0.9% FLUSH 10 ML FLUSH IVF SCH (09:00)
--- NOTE | 2016-12-23 09:11 | HHI.NSPN ---
(Brennon Whiet) History Chief Complaint: Unable to obtain due to patient's clinical condition. (Brennon White) Interval History 12/07: Patient opens eyes to voice, smiles, questionable followed simple command left UE x one, not following commands other extremities. Not verbalizing. 12/13: Patient reported to be sleeping a little better at night. Still lethargic much of the day. According to family he is saying a few words and responds to questions, remains confused, following a few commands occasionally. 12/15: Patient extremely lethargic. No response to verbal stimulation but did withdraw upper extremities and open eyes to localised noxious stimulation. Slight moaning but no other response. 12/16: The patient is lethargic but less so today. He was noted to open his eyes and move both upper extremities spontaneously. He did respond to some commands weakly but did not verbalise. 12/19: This morning the patient is seen in rounds with Dr. Godfrey. The patient is awake and alert and did track with his eyes. 12/23: When seen this morning the patient's daughter is feeding him. He does spontaneously open his eyes and move the upper extremities. He does appear to track with the eyes. (Brennon White) System Review Comments Unable to obtain due to patient's clinical condition. (Brennon White) Exam Results 12/21/16 12/21/16 12/22/16 12/22/16 12/23/16 12/23/16 06:00 18:00 06:00 18:00 06:00 18:00 Intake Total 480 ml Output Total 1000 ml 400 ml 975 ml 525 ml Balance -1000 ml -400 ml -495 ml -525 ml Intake Oral 480 ml Output Urine Total 1000 ml 400 ml 975 ml 525 ml # Bowel Movements 1 2 0 Vital Signs Date Time Temp Pulse Resp B/P (MAP) Pulse Ox O2 Delivery O2 Flow Rate FiO2 12/23/16 04:00 97.8 104 22 154/88 (110) 97 12/23/16 00:00 97.9 94 24 146/72 (96) 99 12/22/16 20:00 97.8 95 19 148/66 (93) 100 12/22/16 16:30 98.6 90 18 138/75 (96) 98 12/22/16 13:00 97.5 101 20 137/74 (95) 98 12/22/16 08:41 97.8 94 20 135/82 (99) 97 12/22/16 05:00 98.2 98 18 142/76 (98) 96 12/22/16 00:29 97.4 92 18 161/82 (108) 97 12/21/16 20:30 97.4 102 20 171/89 (116) 98 12/21/16 15:32 97.8 91 16 141/74 (96) 99 12/21/16 11:30 97.9 104 17 120/73 (89) 99 12/21/16 08:00 97.7 105 16 135/67 (89) 96 12/21/16 05:30 97.4 108 18 131/87 (102) 97 12/21/16 00:37 97.7 97 18 142/76 (98) 99 12/20/16 20:54 98.3 94 18 131/77 (95) 98 12/20/16 16:00 98.3 97 20 151/79 (103) 98 12/20/16 12:00 97.7 99 20 139/74 (95) 98 (Brennon White) Physical Examination GENERAL: Drowsy but awake, appears to track, being fed breakfast, no apparent distress. SKIN: Warm, dry & intact. HEENT: Normocephalic, atraumatic. NECK: No JVD, trachea midline. CARDIOVASCULAR: S1S2 w/RRR w/o M/G/R, radial & pedal pulses 2+ bilaterally, cap refill < 2 sec, 1+ pedal edema. RESPIRATORY: Clear but decreased bilaterally w/o W/R/R, equal excursion, nonlaboured, on RA. GASTROINTESTINAL: Abdomen soft, nontender, bowel sounds not appreciated. MUSCULOSKELETAL: No evident deformity or clubbing. NEUROLOGICAL: Drowsy but awake, GCS 10 (E4 V1 M5). Eye open spontaneously, appears to track. No verbalisation other than clearing throat. Did not follow any simple commands. Spontaneous movement of the upper extremities noted but no response to command w /any extremity. (Brennon White) Lab, Micro, Other Results Laboratory Tests Test 12/23/16 06:34 White Blood Count 13.5 TH/MM3 Red Blood Count 4.15 MIL/MM3 Hemoglobin 12.0 GM/DL Hematocrit 36.4 % Mean Corpuscular Volume 87.6 FL Mean Corpuscular Hemoglobin 28.9 PG Mean Corpuscular Hemoglobin Concent 33.0 % Red Cell Distribution Width 19.3 % Platelet Count 425 TH/MM3 Mean Platelet Volume 7.0 FL CBC Comment AUTO DIFF Differential Total Cells Counted 100 Neutrophils % (Manual) 24 % Lymphocytes % 63 % Monocytes % 10 % Eosinophils % 3 % Neutrophils # (Manual) 3.2 TH/MM3 Differential Comment FINAL DIFF MANUAL Platelet Estimate NORMAL Platelet Morphology Comment NORMAL Blood Urea Nitrogen 29 MG/DL Creatinine 0.52 MG/DL Random Glucose 128 MG/DL Total Protein 7.8 GM/DL Albumin 2.6 GM/DL Calcium Level 10.2 MG/DL Phosphorus Level 2.9 MG/DL Magnesium Level 2.0 MG/DL Alkaline Phosphatase 169 U/L Aspartate Amino Transf (AST/SGOT) 46 U/L Alanine Aminotransferase (ALT/SGPT) 50 U/L Total Bilirubin 0.7 MG/DL Sodium Level 141 MEQ/L Potassium Level 3.1 MEQ/L Chloride Level 104 MEQ/L Carbon Dioxide Level 28.7 MEQ/L Anion Gap 8 MEQ/L Estimat Glomerular Filtration Rate 152 ML/MIN (Brennon White) Medical Decision Making Impression and Plan Impression: 1. Traumatic brain injury 2. Respiratory failure, improved 3. Seizures 4. Jane UTI, resolved 5. Occlusive DVT to right cephalic & basilic veins 6. Leukocytosis 7. Sacral decubitus 8. Atrial fibrillation 9. Hypertension 10. Diabetes Patient awake but not following commands. T-cell lymphoproliferative disorder per Haematology/Oncology, at present feel patient is not a candidate for treatment. Plan: Medical management per Hospitalist. No active issues for Neurosurgery. Will see if Hospitalist will accept patient. Awaiting clearance for medical transport back to [facility]. Appreciate Hospitalist, Palliative Care & Haematology/Oncology input. (Brennon White) Attending Statement Right attestation Patient seems to be a little less alert for the past couple days. He is awake but at least moderately lethargic. His family states that he only infrequently will say 1 or 2 words. He is not following commands He has moderate conjugate extraocular movements He is purposeful with the upper extremities, moves all extremities mild to moderate spontaneous. Continue to monitor neurologic exam. A follow-up CT scan of the head will be obtained this week if he continues to remain more lethargic. He has a slight amount of erythema around the left forearm IV site. A bio patch is in place. This was discussed with his nurse this morning and an assessment will be made to possibly change the IV site. (Tony Godfrey MD) Brennon White Dec 23, 2016 09:11 Tony Godfrey MD Dec 23, 2016 10:03
[2016-12-23] MEDS: INSULIN NovoLIN REGULAR SUPPLEMENTAL SCALE SQ SCH ×4 (09:15→21:00)
[2016-12-23 12:00] VITALS: BP 136/78; PULSE 114; RESP 20; TEMP 97.7; O2SAT 99
[2016-12-23] MEDS: POTASSIUM CHLORIDE 20 MEQ CONTROLLED RELEASE TAB PO SCH ×3 (13:07→20:00)
--- NOTE | 2016-12-23 13:41 | HHI.PR ---
Subjective Remarks Follow up visit SDH, UE DVT, HTN, DM2. Patient seen and examined today. Patient is laying in bed. Continues to be drowsy and lethargic. Grimaces to pain. Occasional cough noted. As per nursing, no acute issues overnight. Patient was out of bed yesterday for about 2 hours with physical therapy. Appears comfortable. 12/16: Stable in his bedroom, in sitting position and sometimes seen in chair. continue confused. no nausea, vomit or diarrhea his Daughter by his side. 12/17: Seen in his bedroom in the presence of His Daughter and Daughter, they asked me about his father and consulted to Palliative care consult placed but they want to continue Aggressive management at this time. 12/18: Stable, Lethargic and weak as per her Daughter in the room, Mrs. Cardozo. No Nausea, vomit or diarrhea. 12/19: Seen with his Son in the room Mr. Sanders, stable no changes to anterior assessment, has Noriega cath in place, adjusted Insulin due to uncontrolled blood sugar. 12/20: Seen in the presence of his Daughter no new issues, discussed with Neurosurgery specialist PARVIN, awaiting for [facility] approval to come back to [place], no nausea, vomit or diarrhea, improving as per Neurosurgery 1015 NOT BEEN CLEARED TO GO HOME YET, AWAIT CLEARANCE BY HIS EMBASSY TOLERATING A DIET BUT VERY SLOW TO EAT IT 10-16 SUGARS ARE BORDERLINE BUT POOR ORAL INTAKE STILL BLOOD SUGAR WAS 130S THIS MORNING DW RN AND FAMILY AND PT 12-23 NO NEW COMPLAINTS DW RN AND DAUGHTER AND CM Objective Vitals Vital Signs Date Time Temp Pulse Resp B/P (MAP) Pulse Ox O2 Delivery O2 Flow Rate FiO2 12/23/16 12:00 97.7 114 20 136/78 (97) 99 12/23/16 08:00 97.6 99 18 149/88 (108) 95 12/23/16 04:00 97.8 104 22 154/88 (110) 97 12/23/16 00:00 97.9 94 24 146/72 (96) 99 12/22/16 20:00 97.8 95 19 148/66 (93) 100 12/22/16 16:30 98.6 90 18 138/75 (96) 98 I/O 12/22/16 12/22/16 12/22/16 12/23/16 12/23/16 10/17/17 07:00 15:00 23:00 07:00 15:00 23:00 Intake Total 480 ml Output Total 175 ml 800 ml 425 ml 100 ml Balance -175 ml -320 ml -425 ml -100 ml Intake Oral 480 ml Output Urine Total 175 ml 800 ml 425 ml 100 ml # Bowel Movements 1 1 0 Result Diagram: 12/23/16 0634 12/23/16 0634 Other Results Laboratory Tests Test 12/23/16 06:34 White Blood Count 13.5 TH/MM3 Red Blood Count 4.15 MIL/MM3 Hemoglobin 12.0 GM/DL Hematocrit 36.4 % Mean Corpuscular Volume 87.6 FL Mean Corpuscular Hemoglobin 28.9 PG Mean Corpuscular Hemoglobin Concent 33.0 % Red Cell Distribution Width 19.3 % Platelet Count 425 TH/MM3 Mean Platelet Volume 7.0 FL CBC Comment AUTO DIFF Differential Total Cells Counted 100 Neutrophils % (Manual) 24 % Lymphocytes % 63 % Monocytes % 10 % Eosinophils % 3 % Neutrophils # (Manual) 3.2 TH/MM3 Differential Comment FINAL DIFF MANUAL Platelet Estimate NORMAL Platelet Morphology Comment NORMAL Blood Urea Nitrogen 29 MG/DL Creatinine 0.52 MG/DL Random Glucose 128 MG/DL Total Protein 7.8 GM/DL Albumin 2.6 GM/DL Calcium Level 10.2 MG/DL Phosphorus Level 2.9 MG/DL Magnesium Level 2.0 MG/DL Alkaline Phosphatase 169 U/L Aspartate Amino Transf (AST/SGOT) 46 U/L Alanine Aminotransferase (ALT/SGPT) 50 U/L Total Bilirubin 0.7 MG/DL Sodium Level 141 MEQ/L Potassium Level 3.1 MEQ/L Chloride Level 104 MEQ/L Carbon Dioxide Level 28.7 MEQ/L Anion Gap 8 MEQ/L Estimat Glomerular Filtration Rate 152 ML/MIN Imaging Last Impressions Brain MRI 12/13/16 0000 Signed Impressions: Service Date/Time: Tuesday, December 13, 2016 12:20 - CONCLUSION: 1. The examination demonstrates multiple small areas of intraparenchymal and extra-axial hemorrhage as described above. These areas are more apparent on the patient's MRI examination than on the CT. Direct comparison is made. The areas of edema and hemorrhage appear similar though they are isointense on the CT. 2. 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 There is cortical atrophy. Anthony Burns MD Chest X-Ray 12/04/16 0000 Signed Impressions: Service Date/Time: November 11:58 - CONCLUSION: Improving aeration. Lonnie Blanhcard MD Upper Extremity Ultrasound 12/02/16 0000 Signed Impressions: Service Date/Time: Saturday, December 03, 2016 00:53 - CONCLUSION: 1. Occlusive DVT in the cephalic and basilic vein on the right. Alex Goode MD Head CT 12/01/16 0000 Signed Impressions: Service Date/Time: Thursday, December 01, 2016 13:14 - CONCLUSION: Evolving intracranial hemorrhagic foci as above, both intra-axial and extra-axial. Jesus Lee MD Modified Barium Swallow 11/30/16 0000 Signed Impressions: Service Date/Time: Wednesday, November 30, 2016 00:00 - CONCLUSION: Please refer to speech pathology report for full details. Lonnie Cook MD Transcranial Doppler Study Complete 11/17/16 0000 Signed Impressions: Service Date/Time: Thursday, November 17, 2016 10:03 - CONCLUSION: 1. Nondiagnostic examination due to poor transcranial windows. Konstantin Dash MD Abdomen X-Ray 11/12/16 0000 Signed Impressions: Service Date/Time: Saturday, November 12, 2016 08:23 - CONCLUSION: 1. Gastric tube in good position. 2. Probable right renal stones. Narayan Coulter MD Cervical Spine CT 11/09/161950 Signed Impressions: Service Date/Time: Wednesday, November 09, 2016 20:14 - CONCLUSION: Negative trauma CT. Cj Isidro MD Objective Remarks GENERAL: CONFUSED SKIN: Warm and dry. HEAD: Atraumatic. Normocephalic. EYES: Pupils equal and round. No scleral icterus. No injection or drainage. ENT: No nasal bleeding or discharge. Mucous membranes pink and moist. NECK: Trachea midline. No JVD. SUPPLE CARDIOVASCULAR: IRRegular rate and rhythm. S1,S 2 NO S3 OR S4 RESPIRATORY: No accessory muscle use. Clear to auscultation. Breath sounds equal bilaterally. GASTROINTESTINAL: Abdomen soft, non-tender, nondistended. Hepatic and splenic margins not palpable. MUSCULOSKELETAL: Extremities without clubbing, cyanosis, or edema. No obvious deformities. NEUROLOGICAL: Awake and alert. No obvious cranial nerve deficits. Motor grossly within normal limits. 4 out of 5 muscle strength in the arms and legs. ABNormal speech. PSYCHIATRIC: INAppropriate mood and affect; insight and judgment ABnormal. Medications and IVs Current Medications Ondansetron HCl (Zofran Inj) 4 mg ONCE ONCE IVP Last administered on 11/09/16 19:57; Start 11/09/16 at 20:00; Stop 11/09/16 at 20:01; Status DC Sodium Chloride (NS Flush) 2 ml UNSCH PRN IVF FLUSH AFTER USING IV ACCESS; Start 11/09/16 at 20:00; Stop 11/09/16 at 22:09; Status DC Sodium Chloride 250 ml @ 15 mls/hr ONCE ONCE IV Last administered on 23:09; Start 11/09/16 at 21:00; Stop 11/10/16 at 13:39; Status DC Sodium Chloride (NS Flush) 2 ml BID IV FLUSH Last administered on 11/11/16 09: 00; Start 11/10/16 at 09:00; Stop 11/12/16 at 08:15; Status DC Sodium Chloride (NS Flush) 2 ml UNSCH PRN IVF FLUSH AFTER USING IV ACCESS; Start 11/09/16 at 22:15; Stop 11/12/16 at 08:15; Status DC Nicardipine HCl 25 mg/Sodium Chloride 260 ml @ 52 mls/hr TITRATE PRN IV Blood pressure management Last administered on 11/09/16 22:25; Start 11/09/16 at 22:15 ; Stop 11/09/16 at 23:53; Status DC Metoclopramide HCl (Reglan Inj) 10 mg ONCE ONCE IV PUSH Last administered on 22:36; Start 11/09/16 at 22:30; Stop 11/09/16 at 22:31; Status DC Morphine Sulfate (Morphine Inj) 3 mg ONCE ONCE IV PUSH Last administered on 23:01; Start 11/09/16 at 23:00; Stop 11/09/16 at 23:01; Status DC Finasteride (Proscar) 5 mg DAILY PO Last administered on 12/23/16 08:53; Start 11/10/16 at 09:00 Glimepiride (Amaryl) 1 mg DAILY PO Last administered on 11/10/16 10:23; Start 11/10/16 at 09:00; Stop 11/11/16 at 13:35; Status DC Tamsulosin HCl (Flomax) 0.4 mg HS PO Last administered on 12/22/16 21:02; Start 11/10/16 at 21:00 Bisoprolol Fumarate (Zebeta) 5 mg DAILY PO Last administered on 11/16/16 08:35 ; Start 11/10/16 at 09:00; Stop 11/16/16 at 09:35; Status DC Tolterodine Tartrate (Detrol La) 2 mg DAILY PO Last administered on 12/23/16 08:53; Start 11/10/16 at 09:00 Nicardipine HCl 25 mg/Sodium Chloride 260 ml @ 52 mls/hr TITRATE PRN IV SYS BP GREATER THAN 150 MMHG; Start 11/09/16 at 23:45; Stop 11/21/16 at 14:08; Status DC Docusate Sodium (Colace) 100 mg BID PO Last administered on 11/10/16 21:26; Start 11/10/16 at 09:00; Stop 11/12/16 at 08:21; Status DC Pantoprazole Sodium (Protonix) 40 mg DAILY PO Last administered on 11/10/16 10: 13; Start 11/10/16 at 09:00; Stop 11/11/16 at 13:35; Status DC Ondansetron HCl (Zofran Inj) 4 mg Q6H PRN IV NAUSEA OR VOMITING; Start 11/09/16 at 23:45; Stop 11/12/16 at 08:55; Status DC Potassium Chloride/Sodium Chloride 1,000 ml @ 84 mls/hr [id number] IV Last administered on 11/11/16 12:34; Start 11/09/16 at 23:45; Stop 11/11/16 at 13:35; Status DC Dextrose (D50w (Vial) Inj) 50 ml UNSCH PRN IV HYPOGLYCEMIA-SEE COMMENTS Last administered on 11/24/16 04:19; Start 11/09/16 at 23:45; Stop 11/25/16 at 09:27 ; Status DC Glucagon (Glucagon Inj) 1 mg UNSCH PRN OTHER HYPOGLYCEMIA-SEE COMMENTS Last administered on 11/24/16 03:48; Start 11/09/16 at 23:45 Insulin Human Regular (NovoLIN R SUPPLEMENTAL SCALE) 1 ACHS SLIDING SCALE SQ Last administered on 11/10/16 11:00; Start 11/10/16 at 07:00; Stop 11/12/16 at 08: 21; Status DC Levofloxacin/ Dextrose 150 ml @ 100 mls/hr Q24H IV Last administered on 01:01; Start 11/10/16 at 01:00; Stop 11/12/16 at 08:21; Status DC Acetaminophen (Tylenol) 650 mg Q4H PRN PO FEVER; Start 11/10/16 at 01:45; Stop 11/12/16 at 08:21; Status DC Magnesium Sulfate/ Dextrose 100 ml @ 100 mls/hr ONCE ONCE IV Last administered on 11/10/16 02:44; Start 11/10/16 at 01:45; Stop 11/10/16 at 02:44; Status DC Acetaminophen/ Hydrocodone Bitart ([place] 10-325 Mg) 1 tab Q4H PO Last administered on 11/10/16 18:19; Start 11/10/16 at 17:00; Stop 11/12/16 at 08:21; Status DC Acetaminophen/ Hydrocodone Bitart ([place] 10-325 Mg) 1 tab Q4H PRN PO PAIN 4-10 ; Start 11/10/16 at 17:00; Stop 11/12/16 at 08:21; Status DC Morphine Sulfate (Morphine Inj) 2 mg Q4H PRN IV PUSH BREAKTHROUGH PAIN Last administered on 11/10/16 18:18; Start 11/10/16 at 17:15; Stop 11/12/16 at 08:26; Status DC Albuterol/ Ipratropium (Duoneb Neb) 1 ampule Q6HR WHILE AWAKE NEB PRN NEB WHEEZING; Start 11/11/16 at 07:45; Stop 11/11/16 at 08:10; Status DC Albuterol/ Ipratropium (Duoneb Neb) 1 ampule Q2HR NEB PRN NEB SOB/WHEEZING Last administered on 11/12/16 02:10; Start 11/11/16 at 09:00; Stop 11/12/16 at 08: 21; Status DC Levetriacetam 100 ml @ 400 mls/hr BOLUS ONCE IV Last administered on 12:33; Start 11/11/16 at 12:30; Stop 11/11/16 at 12:44; Status DC Levetriacetam 100 ml @ 400 mls/hr Q12HR IV Last administered on 11/12/16 09:30 ; Start 11/11/16 at 21:00; Stop 11/12/16 at 17:07; Status DC Sodium Chloride 188 meq/Sodium Chloride 1,047 ml @ 40 mls/hr Q24H IV Last administered on 11/11/16 15:00; Start 11/11/16 at 15:00; Stop 11/12/16 at 08:21; Status DC Acetaminophen (Ofirmev 1000 Mg/ 100 ml Inj) 1,000 mg ONCE ONCE IV Last administered on 11/11/16 14:54; Start 11/11/16 at 14:30; Stop 11/11/16 at 14:31; Status DC Albuterol/ Ipratropium (Duoneb Neb) 1 ampule Q4HR NEB PRN NEB wheezing; Start 11/11/16 at 13:30; Stop 11/12/16 at 08:21; Status DC Furosemide (Lasix Inj) 20 mg ONCE ONCE IV PUSH Last administered on 11/11/16 14:54; Start 11/11/16 at 13:30; Stop 11/11/16 at 14:27; Status DC Sodium Chloride 188 meq/Sodium Chloride 200 ml @ 200 mls/hr Q1H IV Last administered on 11/11/16 16:00; Start 11/11/16 at 15:00; Stop 11/11/16 at 16:00; Status DC Fosphenytoin Sodium 1000 mgpe/ Sodium Chloride 70 ml @ 280 mls/hr ONCE ONCE IV Last administered on 11/11/16 21:44; Start 11/11/16 at 21:30; Stop 11/11/16 at 21:44; Status DC Fosphenytoin Sodium (Cerebyx Inj) 100 mgpe Q8HR IV Last administered on 12:54; Start 11/12/16 at 06:00; Stop 11/12/16 at 17:07; Status DC Lorazepam (Ativan Inj) 1 mg Q5M PRN IV SEIZURES Last administered on 11/12/16 01:45; Start 11/12/16 at 00:45 Etomidate (Amidate Inj) 40 mg ONCE ONCE IV PUSH Last administered on 11/12/16 07:00; Start 11/12/16 at 07:00; Stop 11/12/16 at 07:15; Status DC Rocuronium [place] (Zemuron Inj) 100 mg BOLUS ONCE IV Last administered on 11/12 07:00; Start 11/12/16 at 07:00; Stop 11/12/16 at 07:16; Status DC Lidocaine HCl (Xylocaine 2% Inj) 100 mg ONCE ONCE IV PUSH Last administered on 11/12/16 07:39; Start 11/12/16 at 07:15; Stop 11/12/16 at 07:16; Status DC Chlorhexidine Gluconate (Peridex 0.12% Liq) 15 ml BID@08,20 MT Last administered on 12/23/16 08:00; Start 11/12/16 at 08:00 Midazolam HCl 100 ml @ 2 mls/hr TITRATE PRN IV SEDATION Last administered on 08:49; Start 11/12/16 at 07:15; Stop 12/08/16 at 12:35; Status DC Fentanyl Citrate 250 ml @ 5 mls/hr TITRATE PRN IV SEDATION Last administered on 11/13/16 23:20; Start 11/12/16 at 07:15; Stop 11/21/16 at 14:08; Status DC Sodium Chloride (NS Flush) DAILY IVF Last administered on 12/23/16 09:00; Start 11/12/16 at 09:00 Sodium Chloride (NS Flush) UNSCH PRN IVF SEE PROTOCOL; Start 11/12/16 at 08:15 Lansoprazole (Prevacid Odt) 30 mg DAILY NG Last administered on 12/23/16 08: 53; Start 11/12/16 at 09:00 Sodium Chloride 500 ml @ 20 mls/hr CONTINUOUS IV ; Start 11/12/16 at 09:00; Status Cancel Pharmacy Profile Note 0 ml @ 0 mls/hr UNSCH OTHER ; Start 11/12/16 at 08:30; Stop 11/15/16 at 10:51; Status DC Aztreonam 2000 mg/ Sodium Chloride 100 ml @ 200 mls/hr Q8H IV Last administered on 11/15/16 10:09; Start 11/12/16 at 09:00; Stop 11/15/16 at 10:51; Status DC Metronidazole (Flagyl) 500 mg Q8HR PO Last administered on 11/15/16 06:26; Start 11/12/16 at 14:00; Stop 11/15/16 at 10:51; Status DC Arginine HCl ([place] Powder) 1 pack BID G-TUBE Last administered on 11/14/16 21: 00; Start 11/12/16 at 09:00; Stop 11/15/16 at 04:13; Status DC Insulin Human Regular (NovoLIN R SUPPLEMENTAL SCALE) 1 Q6HR SQ Last administered on 11/17/16 05:59; Start 11/12/16 at 12:00; Stop 11/17/16 at 08:09 ; Status DC Docusate Sodium (Colace Liq) 100 mg Q12HR PO Last administered on 12/22/16 08 :30; Start 11/12/16 at 09:00 Sennosides (Senna Liq) 8.8 mg BID NG Last administered on 12/04/16 08:39; Start 11/12/16 at 09:00; Stop 12/04/16 at 11:03; Status DC Sodium Chloride (NS Flush) 2 ml UNSCH PRN IV FLUSH FLUSH AFTER USING IV ACCESS ; Start 11/12/16 at 08:30 Sodium Chloride (NS Flush) 2 ml BID IV FLUSH Last administered on 12/23/16 09 :00; Start 11/12/16 at 09:00 Artificial Tears (Tears Naturale Opth Soln) 1 drop TID EACH EYE Last administered on 12/23/16 13:00; Start 11/12/16 at 09:00 Ondansetron HCl (Zofran Inj) 4 mg Q6H PRN IV NAUSEA OR VOMITING Last administered on 11/15/16 05:45; Start 11/12/16 at 08:30 Albuterol/ Ipratropium (Duoneb Neb) 1 ampule Q6HR NEB INH Last administered on 11/16/16 07:57; Start 11/12/16 at 10:00; Stop 11/16/16 at 09:59; Status DC Albuterol Sulfate (Albuterol Neb) 2.5 mg Q2HR NEB PRN INH SOB/WHEEZING Last administered on 11/29/16 21:19; Start 11/12/16 at 08:30 Bisacodyl (Dulcolax Supp) 10 mg DAILY PRN RECTAL SEVERE CONSITIPATION; Start at 08:30 Lactulose (Lactulose Liq) 30 ml DAILY PRN PO SEVERE CONSITIPATION; Start at 08:30; Stop 12/04/16 at 11:03; Status DC Sodium Chloride 1,000 ml @ 84 mls/hr [id number] IV Last administered on 11/13/16 00:08; Start 11/12/16 at 08:30; Stop 11/13/16 at 08:18; Status DC Potassium Chloride 100 ml @ 50 mls/hr Q2H PRN IV-CENTRAL For Potassium 2.8 - 3.2 mEq/L Last administered on 11/13/16 08:49; Start 11/12/16 at 08:30; Stop at 07:46; Status DC Potassium Chloride 100 ml @ 50 mls/hr Q2H PRN IV For Potassium 2.8 - 3.2 mEq/ L Last administered on 11/23/16 13:09; Start 11/12/16 at 08:30; Stop 11/24/16 at 07:46; Status DC Potassium Bicarb/ Potassium Chloride (K-Lyte Cl Eff) 50 meq UNSCH PRN PO For Potassium 3.3 - 3.5 mEq/L Last administered on 11/20/16 13:06; Start 11/12/16 at 08:30; Stop 11/24/16 at 07:46; Status DC Potassium Chloride 100 ml @ 25 mls/hr UNSCH PRN IV-CENTRAL For Potassium 3.3 - 3.5 mEq/L Last administered on 11/16/16 17:47; Start 11/12/16 at 08:30; Stop 11/24/16 at 07:46; Status DC Potassium Chloride 100 ml @ 50 mls/hr Q2H PRN IV For Potassium 3.3 - 3.5 mEq/ L Last administered on 11/16/16 05:34; Start 11/12/16 at 08:30; Stop 11/24/16 at 07:46; Status DC Magnesium Sulfate 4 gm/Sodium Chloride 100 ml @ 50 mls/hr UNSCH PRN IV For Magnesium 0.9 - 1.1 mg/dL; Start 11/12/16 at 08:30; Stop 11/24/16 at 07:46; Status DC Magnesium Oxide (Mag-Ox) 800 mg UNSCH PRN PO For Magnesium 1.2 - 1.6 mg/dL; Start 11/12/16 at 08:30; Stop 11/24/16 at 07:46; Status DC Magnesium Sulfate 2 gm/Sodium Chloride 100 ml @ 50 mls/hr UNSCH PRN IV For Magnesium 1.2 - 1.6 mg/dL; Start 11/12/16 at 08:30; Stop 11/24/16 at 07:46; Status DC Potassium Phosphate (K-Phos) 2,000 mg Q4H PRN PO For Phosphorus < 2.5 mg/dL Last administered on 11/13/16 10:35; Start 11/12/16 at 08:30; Stop 11/24/16 at 07 :46; Status DC Sodium Phosphate 30 mmol/Sodium Chloride 250 ml @ 42 mls/hr UNSCH PRN IV For Phosphorus < 2.5 mg/dL Last administered on 11/19/16 13:58; Start 11/12/16 at 08 :30; Stop 11/24/16 at 07:46; Status DC Potassium Phosphate (K-Phos) 2,000 mg UNSCH PRN PO/TUBE SEE LABEL COMMENTS; Start 11/12/16 at 08:30; Stop 11/24/16 at 07:46; Status DC Potassium Phosphate 30 mmol/ Sodium Chloride 260 ml @ 42 mls/hr UNSCH PRN IV SEE LABEL COMMENTS Last administered on 11/14/16 06:15; Start 11/12/16 at 08:30; Stop 11/24/16 at 07:46; Status DC Acetaminophen (Tylenol 650 Mg/ 20 ml Liq) 650 mg Q6H PRN NG FEVER Last administered on 12/20/16t 02:14; Start 11/12/16 at 08:45 Vancomycin HCl 2500 mg/Sodium Chloride 525 ml @ 250 mls/hr ONCE ONCE IV ; Start 11/12/16 at 10:00; Stop 11/12/16 at 10:00; Status DC Vancomycin HCl 2000 mg/Sodium Chloride 520 ml @ 250 mls/hr Q24H IV Last administered on 11/14/16 10:23; Start 11/12/16 at 11:00; Stop 11/15/16 at 10:51; Status DC Sodium Chloride 500 ml @ 20 mls/hr Q24H IV Last administered on 11/16/16 08: 34; Start 11/12/16 at 09:00; Stop 11/16/16 at 09:35; Status DC Miscellaneous Information SPECIFIC LAB TO BE DRAWN:VANCOMYCIN TROUGH DATE TO... ONCE ONCE .XX Last administered on 11/15/16 10:40; Start 11/15/16 at 10:45; Stop 11/15/16 at 10:46; Status DC Lorazepam (Ativan Inj) 2 mg ONCE ONCE IV PUSH Last administered on 11/12/16 12 :43; Start 11/12/16 at 12:30; Stop 11/12/16 at 12:31; Status DC Levetriacetam 100 ml @ 400 mls/hr Q8HR IV Last administered on 11/30/16 05:35 ; Start 11/12/16 at 22:00; Status Future Hold Fosphenytoin Sodium (Cerebyx Inj) 100 mgpe Q6HR IV Last administered on 05:34; Start 11/12/16 at 18:00; Stop 11/18/16 at 13:11; Status DC Potassium Phosphate 30 mmol/ Sodium Chloride 260 ml @ 43.333 mls/ hr ONCE ONCE IV Last administered on 11/13/16 15:42; Start 11/13/16 at 13:45; Stop at 19:44; Status DC Polyethylene Glycol (Miralax) 17 gm BID OG-TUBE Last administered on 20:34; Start 11/13/16 at 21:00 Lactulose (Lactulose Liq) 30 ml DAILY PO Last administered on 12/02/16 09:54; Start 11/14/16 at 09:00; Status Future Hold Lactulose (Lactulose Liq) 30 ml ONCE ONCE PO Last administered on 11/13/16 15: 42; Start 11/13/16 at 15:00; Stop 11/13/16 at 15:01; Status DC Mineral Oil (Mineral Oil Liq) 30 ml ONCE ONCE PO ; Start 11/13/16 at 16:00; Stop 11/13/16 at 16:01; Status DC Glycerin (Glycerin Adult Supp) 2 gm BID PRN RECTAL CONSTIPATION - SEVERE; Start 11/13/16 at 15:00 Fosphenytoin Sodium (Cerebyx Inj) 300 mgpe ONCE ONCE IV Last administered on 15:43; Start 11/13/16 at 16:00; Stop 11/13/16 at 16:01; Status DC Hydralazine HCl (Apresoline Inj) 20 mg Q4H PRN IV PUSH SBP>150, DBP>90 Last administered on 11/14/16 03:07; Start 11/14/16 at 02:15 Metoprolol Tartrate (Lopressor Inj) 5 mg Q6H PRN IV PUSH HR>100 Last administered on 11/21/16 15:18; Start 11/14/16 at 03:30; Stop 11/22/16 at 10:47 ; Status DC Metoprolol Tartrate (Lopressor) 25 mg Q12HR PO Last administered on 12/12/16 08:04; Start 11/16/16 at 09:30; Stop 12/12/16 at 17:53; Status DC Furosemide (Lasix Inj) 40 mg ONCE ONCE IV PUSH Last administered on 11/16/16 10:34; Start 11/16/16 at 09:30; Stop 11/16/16 at 09:36; Status DC Furosemide (Lasix Inj) 40 mg BID@,18 IV PUSH Last administered on 11/16/16 17:11; Start 11/16/16 at 18:00; Stop 11/17/16 at 08:47; Status DC Midazolam HCl (Versed Inj) 2 mg ONCE ONCE IV PUSH Last administered on 05:31; Start 11/17/16 at 05:30; Stop 11/17/16 at 05:31; Status DC Fentanyl Citrate (fentaNYL INJ) 100 mcg ONCE ONCE IV PUSH Last administered on 11/17/16 05:31; Start 11/17/16 at 05:30; Stop 11/17/16 at 05:31; Status DC Fentanyl Citrate (fentaNYL INJ) 100 mcg STK-MED ONCE .ROUTE ; Start 11/17/16 at 05:30; Stop 11/17/16 at 05:31; Status DC Midazolam HCl (Versed Inj) 2 mg STK-MED ONCE .ROUTE ; Start 11/17/16 at 05:30; Stop 11/17/16 at 05:31; Status DC Sodium Chloride 1,000 ml @ 999 mls/hr BOLUS ONCE IV Last administered on 11/17 06:15; Start 11/17/16 at 06:15; Stop 11/17/16 at 07:15; Status DC Sodium Chloride 1,000 ml @ 999 mls/hr BOLUS ONCE IV Last administered on 11/17 06:15; Start 11/17/16 at 06:15; Stop 11/17/16 at 07:15; Status DC Insulin Detemir (Levemir Inj) 12 units Q12HR SQ Last administered on 11/24/16 09:00; Start 11/17/16 at 09:00; Stop 11/24/16 at 16:11; Status DC Dextrose (D50w (Vial) Inj) 50 ml UNSCH PRN IV HYPOGLYCEMIA-SEE COMMENTS; Start 11/17/16 at 08:15; Status UNV Glucagon (Glucagon Inj) 1 mg UNSCH PRN OTHER HYPOGLYCEMIA-SEE COMMENTS; Start 11/17/16 at 08:15; Status UNV Insulin Aspart (NovoLOG SUPPLEMENTAL SCALE) 1 Q6H SQ Last administered on 22:13; Start 11/17/16 at 09:00; Stop 11/24/16 at 16:17; Status DC Pharmacy Profile Note 0 ml @ 0 mls/hr UNSCH OTHER ; Start 11/17/16 at 08:15; Stop 12/10/16 at 09:28; Status DC Cefepime HCl 2000 mg/Sodium Chloride 100 ml @ 200 mls/hr Q12H IV Last administered on 11/20/16 09:03; Start 11/17/16 at 09:00; Stop 11/20/16 at 11:24 ; Status DC Potassium Chloride/Sodium Chloride 1,000 ml @ 100 mls/hr Q10H IV Last administered on 11/18/16 04:02; Start 11/17/16 at 08:45; Stop 11/18/16 at 09:29 ; Status DC Metronidazole (Flagyl) 500 mg Q8HR PO Last administered on 11/21/16 07:50; Start 11/17/16 at 09:00; Stop 11/21/16 at 14:08; Status DC Sodium Chloride 1,000 ml @ 999 mls/hr BOLUS ONCE IV Last administered on 11/17 09:32; Start 11/17/16 at 09:00; Stop 11/17/16 at 10:00; Status DC Vancomycin HCl 2000 mg/Sodium Chloride 520 ml @ 260 mls/hr ONCE ONCE IV Last administered on 11/17/16 13:12; Start 11/17/16 at 12:00; Stop 11/17/16 at 13:59 ; Status DC Furosemide (Lasix Inj) 60 mg ONCE ONCE IV PUSH Last administered on 11/18/16 09:36; Start 11/18/16 at 09:30; Stop 11/18/16 at 09:31; Status DC Albuterol/ Ipratropium (Duoneb Neb) 1 ampule Q6HR NEB NEB Last administered on 11/22/16 08:01; Start 11/18/16 at 10:00; Stop 11/22/16 at 09:59; Status DC Vancomycin HCl 2250 mg/Sodium Chloride 522.5 ml @ 250 mls/hr Q18H IV Last administered on 11/21/16 15:10; Start 11/18/16 at 13:00; Stop 11/23/16 at 08:53 ; Status DC Miscellaneous Information SPECIFIC LAB TO BE DRAWN:VANCO TROUGH DATE TO... ONCE ONCE .XX Last administered on 11/20/16 00:45; Start 11/20/16 at 00:45; Stop 11/20/16 at 00:46; Status DC Fosphenytoin Sodium 100 mgpe/ Sodium Chloride 52 ml @ 208 mls/hr Q6HR IV Last administered on 11/30/16 13:10; Start 11/18/16 at 13:00; Status Future Hold Diltiazem HCl (Cardizem Inj) 15 mg ONCE ONCE IV PUSH Last administered on 11/19 01:01; Start 11/19/16 at 00:45; Stop 11/19/16 at 00:48; Status DC Diltiazem HCl 125 mg/Sodium Chloride 125 ml @ 5 mls/hr TITRATE PRN IV Tachycardia; Start 11/19/16 at 00:45; Stop 11/22/16 at 10:47; Status DC Metoprolol Tartrate (Lopressor Inj) 5 mg ONCE ONCE IV PUSH Last administered on 11/19/16 00:53; Start 11/19/16 at 00:45; Stop 11/19/16 at 00:49; Status DC Digoxin (Lanoxin Inj) 0.25 mg ONCE ONCE IV PUSH ; Start 11/19/16 at 00:45; Stop 11/19/16 at 00:47; Status DC Miscellaneous Information SPECIFIC LAB TO BE RENETTA... ONCE ONCE .XX Last administered on 11/22/16 06:45; Start 11/22/16 at 06:45; Stop 11/22/16 at 06:46 ; Status DC Norepinephrine Bitartrate 4 mg/ Sodium Chloride 250 ml @ 7.5 mls/hr TITRATE PRN IV Blood pressure management; Start 11/20/16 at 16:30; Stop 11/21/16 at 14: 08; Status DC Terbutaline Sulfate (Brethine Inj) 1 mg UNSCH PRN SQ For Extravasation; Start 11/20/16 at 16:30 Sodium Chloride 500 ml @ 20 mls/hr ONCE ONCE IV Last administered on 18:05; Start 11/20/16 at 16:30; Stop 11/21/16 at 14:08; Status DC Furosemide (Lasix Inj) 40 mg ONCE ONCE IV PUSH Last administered on 11/21/16 09:31; Start 11/21/16 at 09:30; Stop 11/21/16 at 09:31; Status DC Albuterol/ Ipratropium (Duoneb Neb) 1 ampule ONCE ONCE NEB Last administered on 11/21/16 09:30; Start 11/21/16 at 09:30; Stop 11/21/16 at 10:00; Status DC Potassium Chloride 100 ml @ 50 mls/hr BOLUS ONCE IV ; Start 11/21/16 at 10:15 ; Stop 11/21/16 at 12:14; Status DC Furosemide (Lasix Inj) 40 mg DAILY IV PUSH Last administered on 12/23/16 08: 56; Start 11/22/16 at 11:00 Vancomycin HCl 1600 mg/Sodium Chloride 516 ml @ 250 mls/hr ONCE ONCE IV Last administered on 11/23/16 10:47; Start 11/23/16 at 11:00; Stop 11/23/16 at 13:03 ; Status DC Vancomycin HCl 1500 mg/Sodium Chloride 515 ml @ 257.5 mls/ hr Q24H IV Last administered on 11/29/16 12:20; Start 11/24/16 at 13:00; Stop 11/30/16 at 14:50 ; Status DC Miscellaneous Information SPECIFIC LAB TO BE RENETTA... ONCE ONCE .XX Last administered on 11/26/16 12:45; Start 11/26/16 at 12:45; Stop 11/26/16 at 12:46 ; Status DC Dextrose (D50w (Syr) Inj) 50 ml STK-MED ONCE .ROUTE Last administered on 15:18; Start 11/24/16 at 15:14; Stop 11/24/16 at 15:15; Status DC Dextrose (D50w (Syr) Inj) 50 ml STK-MED ONCE .ROUTE ; Start 11/24/16 at 15:21; Stop 11/24/16 at 15:22; Status DC Insulin Aspart (NovoLOG SUPPLEMENTAL SCALE) 1 ACHS SLIDING SCALE SQ Last administered on 12/16/16 08:42; Start 11/24/16 at 17:00; Stop 12/16/16 at 10: 40; Status DC Dextrose (D50w (Syr) Inj) 50 ml UNSCH PRN IV HYPOGLYCEMIA-SEE COMMENTS Last administered on 11/25/16 09:46; Start 11/25/16 at 09:30 Megestrol Acetate (Megace Liq) 400 mg ONCE ONCE PO Last administered on 13:08; Start 11/25/16 at 11:15; Stop 11/25/16 at 11:19; Status DC Megestrol Acetate (Megace Liq) 400 mg DAILY PO Last administered on 12/23/16 08:51; Start 11/26/16 at 09:00 Calcium Carbonate (Tums Chew) 500 mg ONCE ONCE CHEW Last administered on 10:47; Start 11/26/16 at 08:15; Stop 11/26/16 at 08:17; Status DC Calcium Carbonate (Tums Chew) 500 mg Q12HR CHEW Last administered on 12/05/16 20:51; Start 11/26/16 at 09:00; Stop 12/06/16 at 08:59; Status DC Potassium Phosphate (K-Phos) 500 mg DAILY PO Last administered on 11/28/16 09: 19; Start 11/26/16 at 09:00; Stop 11/29/16 at 08:59; Status DC Miscellaneous Information SPECIFIC LAB TO BE DRAWN:VANCOMYCIN TROUGH DATE TO... ONCE ONCE .XX Last administered on 11/30/16 12:45; Start 11/30/16 at 12:45; Stop 11/30/16 at 12:46; Status DC Potassium Bicarb/ Potassium Chloride (K-Lyte Cl Eff) 50 meq ONCE ONCE PO Last administered on 11/29/16 10:43; Start 11/29/16 at 10:30; Stop 11/29/16 at 10:31; Status DC Vancomycin HCl 1750 mg/Sodium Chloride 517.5 ml @ 257.5 mls/ hr Q24H IV ; Start 11/30/16 at 17:00; Stop 12/01/16 at 17:17; Status DC Miscellaneous Information SPECIFIC LAB TO BE RENETTA... ONCE ONCE .XX Last administered on 12/03/16 17:45; Start 12/03/16 at 17:45; Stop 12/03/16 at 17:46 ; Status DC Levetriacetam (Keppra) 1,000 mg Q8HR PO Last administered on 12/23/16 13:02; Start 11/30/16 at 22:00 Phenytoin (Dilantin) 100 mg Q6HR PO Last administered on 12/14/16 06:48; Start 11/30/16 at 19:45; Stop 12/14/16 at 11:06; Status DC Vancomycin HCl 1750 mg/Sodium Chloride 517.5 ml @ 257.5 mls/ hr Q24H IV Last administered on 12/09/16 17:27; Start 12/01/16 at 18:00; Stop 12/10/16 at 09:28 ; Status DC Aztreonam 2000 mg/ Sodium Chloride 100 ml @ 200 mls/hr Q12H IV Last administered on 12/04/16 00:10; Start 12/02/16 at 12:00; Stop 12/04/16 at 11:08 ; Status DC Mupirocin (Bactroban 2% Cream) 1 applic Q12HR TOPICAL Last administered on 09:00; Start 12/02/16 at 21:00 Fluconazole (Diflucan) 100 mg DAILY PO Last administered on 12/18/16 09:40; Start 12/04/16 at 09:00; Stop 12/18/16 at 13:32; Status DC Belladonna Alkaloids/Opium (B & O Supp) 60 mg Q6HR RECTAL Last administered on 12/05/16 05:22; Start 12/03/16 at 18:00; Stop 12/05/16 at 08:31; Status DC Collagenase (Santyl Oint) 1 applic DAILY TOPICAL Last administered on 08:31; Start 12/04/16 at 12:00 Albuterol/ Ipratropium (Duoneb Neb) 1 ampule Q6HR WHILE AWAKE NEB NEB Last administered on 12/07/16 19:43; Start 12/04/16 at 14:00; Stop 12/08/16 at 12:35 ; Status DC Hyoscyamine Sulfate (Levsin) 0.125 mg Q4H PRN PO abdo spasm; Start 12/04/16 at 11:30 Heparin Sodium (Porcine) (Heparin Central Flush) 200 units DAILY IV FLUSH Last administered on 12/23/16 09:00; Start 12/05/16 at 12:00 Miscellaneous Information SPECIFIC LAB TO BE DRAWN:VANCOMYCIN TROUGH DATE TO... ONCE ONCE .XX Last administered on 12/09/16 16:54; Start 12/09/16 at 17:45; Stop 12/09/16 at 17:46; Status DC Potassium Chloride (KCl) 30 meq ONCE ONCE PO Last administered on 12/07/16 13 :03; Start 12/07/16 at 13:00; Stop 12/07/16 at 13:01; Status DC Albuterol/ Ipratropium (Duoneb Neb) 1 ampule Q6HR WHILE AWAKE NEB NEB Last administered on 12/12/16 10:13; Start 12/08/16 at 14:00; Stop 12/12/16 at 12:29 ; Status DC Miscellaneous Information SPECIFIC LAB TO BE DRAWN:VANCO TROUGH DATE TO BE DR... ONCE ONCE .XX ; Start 12/11/16 at 17:45; Stop 12/11/16 at 17:46; Status Cancel Acetaminophen (Tylenol 160 Mg/ 5 ml Liq) 650 mg Q4H PRN PO PAIN SCALE 1-10 Last administered on 12/14/16 02:33; Start 12/11/16 at 11:00 Potassium Bicarb/ Potassium Chloride (K-Lyte Cl Eff) 50 meq ONCE ONCE PO ; Start 12/12/16 at 11:00; Stop 12/12/16 at 11:10; Status DC Potassium Chloride 100 ml @ 50 mls/hr Q2H IV Last administered on 12/12/16 14 :20; Start 12/12/16 at 11:30; Stop 12/12/16 at 15:29; Status DC Potassium Bicarb/ Potassium Chloride (K-Lyte Cl Eff) 25 meq ONCE ONCE PO Last administered on 12/12/16 11:50; Start 12/12/16 at 11:30; Stop 12/12/16 at 11:31; Status DC Metoprolol Tartrate (Lopressor) 25 mg TID PO Last administered on 12/12/16 18: 31; Start 12/12/16 at 18:00; Stop 12/13/16 at 00:44; Status DC Metoprolol Tartrate (Lopressor) 25 mg Q8HR PO Last administered on 12/23/16 13:02; Start 12/13/16 at 00:45 Phenytoin (Dilantin) 100 mg TID PO Last administered on 12/23/16 13:02; Start 12/14/16 at 13:00 Potassium Chloride (KCl) 40 meq ONCE ONCE PO Last administered on 12/16/16 11:45; Start 12/16/16 at 10:30; Stop 12/16/16 at 10:31; Status DC Potassium Chloride (KCl) 40 meq ONCE ONCE PO Last administered on 12/16/16 14:04; Start 12/16/16 at 13:00; Stop 12/16/16 at 13:01; Status DC Insulin Human Regular (NovoLIN R SUPPLEMENTAL SCALE) 1 ACHS SLIDING SCALE SQ Last administered on 12/23/16 13:00; Start 12/16/16 at 12:00 Amlodipine Besylate (Norvasc) 5 mg DAILY PO Last administered on 12/23/16 08: 53; Start 12/17/16 at 12:00 Insulin Detemir (Levemir Inj) 5 units Q12H SQ Last administered on 12/19/16 00:19; Start 12/17/16 at 12:00; Stop 12/19/16 at 10:29; Status DC Insulin Detemir (Levemir Inj) 10 units Q12H SQ Last administered on 12/20/16 12:00; Start 12/19/16 at 12:00; Stop 12/21/16 at 00:28; Status DC Insulin Detemir (Levemir Inj) 5 units ONCE ONCE SQ Last administered on 13:36; Start 12/19/16 at 11:15; Stop 12/19/16 at 11:16; Status DC Collagenase (Santyl Oint) 1 applic DAILY TOPICAL Last administered on 08:31; Start 12/19/16 at 14:45 Potassium Bicarb/ Potassium Chloride (K-Lyte Cl Eff) 25 meq ONCE ONCE PO Last administered on 12/20/16 10:00; Start 12/20/16 at 10:00; Stop 12/20/16 at 10:01; Status DC Insulin Detemir (Levemir Inj) 10 units BID SQ Last administered on 12/23/16 08:51; Start 12/21/16 at 09:00 Potassium Chloride (KCl) 20 meq Q4HR PO Last administered on 12/23/16 13:07; Start 12/23/16 at 12:00; Stop 12/24/16 at 00:01 Date of Insertion: Nov 12, 2016 Line: Central Venous Catheter Side: Right Location: Internal, Jugular A/P Problem List: (1) Subdural hematoma ICD Code: I62.00 - Nontraumatic subdural hemorrhage, unspecified Status: Acute (2) Diabetes ICD Code: E11.9 - Type 2 diabetes mellitus without complications Status: Chronic (3) Leukocytosis ICD Code: D72.829 - Elevated white blood cell count, unspecified Status: Acute (4) HTN (hypertension) ICD Code: I10 - Essential (primary) hypertension Status: Chronic (5) Dysphagia ICD Code: R13.10 - Dysphagia, unspecified (6) Urinary tract infection ICD Code: N39.0 - Urinary tract infection, site not specified Assessment and Plan 80 y/o with a history of HTN, DM, and BPH presented to the ED after a fall at home, with a LOC for 10-15 mins. Closed head injury Subdural hematoma Bilateral intracranial hemorrhaging - Managed by neurosurgery and no indication for surgery. - Neuro checks, seizure precautions - Keppra and Cerebyx on hold. Metabolic encephalopathy-improving - head CT 12/01/16 showed Bilateral hypodense subdural hematomas are seen in the occipital region and along the tentorium cerebelli on the right as well as small right frontal subdural hematoma unchanged. The left frontal parenchymal bleed is decreased in density with a small amount of edema identified. There is atrophy and moderate confluent hypodense white matter disease in the periventricular regions. The right frontal and left insular bleeds are much less conspicuous with a small amount of residual high density in the right frontal region with a small amount of surrounding edema. There is no midline shift or mass effect. Vascular calcifications are noted. No fractures. Anemia - WBC 15.2 -->13.4 --> 16.4 --> 13.0 - Hematology following. Ordered other testing R/O other bone marrow abnormality. Follow results. - Blood cultures no growth in 5 days. DC Vanco as planned. - Continue to trend WBC. 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 Atrial fibrillation Hypertension - Continue with Lopressor 25mg BID, increase to TID for better rate control and BP control - Oral anticoagulation contraindicated secondary to intracranial bleed - Monitor BP Trend, HR Decubitus ulcer, DTI sacral area - Continue Santyl - Wound care following. Recommends mable thick coverage of Santyl ointment. 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 Diabetes mellitus - hemoglobin A1c 6.0 - ISS. Uncontrolled blood sugars, will continue sliding scale increased Levemir to 10 units BID. MONITOR BLOOD SUGARS Occlusive DVT in cephalic vein right upper extremity - Hematology consultation appreciated however oral anticoagulation contraindicated - Avoid IV access RUE Urinary tract infection - off Azactam 1 g IV every 12H - on Diflucan 100 mg by mouth daily 12/03/16 secondary to been culture positive for Jane, Stop 12/18/16 will follow Urinalysis and culture, he has Noriega cath high risk for reinfection. 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 HYPOKALEMIA WILL REPLACE Prophylaxis GI - lanosprazole DVT - SCD/pharmacological prophylaxis when okay with neurosurgery AM LABS Discussed with Patient and his Daughter in the room, Discharge Planning AWAIT SAFE PLACEMENT AND RETURN TO HIS [facility]EL[facility] IN [facility] Problem Qualifiers (1) HTN (hypertension): Qualified Codes: I10 - Essential (primary) hypertension Lawrence Deal DO Dec 23, 2016 13:41
[2016-12-23] MEDS ORDERED: POTASSIUM CHLORIDE 25 MEQ EFFERVESCENT TAB PO ONE (13:45)
[2016-12-23 16:00] VITALS: BP 150/72; PULSE 95; RESP 18; TEMP 97.6; O2SAT 97
[2016-12-23 20:00] VITALS: BP 168/74; PULSE 100; RESP 19; TEMP 97.8; O2SAT 99
[2016-12-23] MEDS: TAMSULOSIN HCL 0.4 MG CAP PO SCH (21:08)
[2016-12-24] VITALS: BP 139/87; PULSE 96; RESP 19; TEMP 98; O2SAT 98
[2016-12-24] MEDS: POTASSIUM CHLORIDE 20 MEQ CONTROLLED RELEASE TAB PO SCH (00:09)
[2016-12-24 04:00] VITALS: BP 134/74; PULSE 62; RESP 18; TEMP 97.8; O2SAT 100
[2016-12-24] MEDS: levETIRAcetam 500 MG TAB PO SCH ×3 (05:06→21:10)
[2016-12-24] MEDS: METOPROLOL TARTRATE 25 MG TAB PO SCH ×3 (05:06→21:11)
[2016-12-24 08:00] VITALS: BP 145/92; PULSE 94; RESP 20; TEMP 97.9; O2SAT 98
[2016-12-24] MEDS: CHLORHEXIDINE 0.12% (ORAL KIT) 15 ML CUP MT SCH ×2 (08:00→20:00)
[2016-12-24] MEDS: INSULIN NovoLIN REGULAR SUPPLEMENTAL SCALE SQ SCH ×4 (08:00→21:00)
[2016-12-24] MEDS: SODIUM CHLORIDE 0.9% FLUSH 10 ML FLUSH IV FLUSH SCH ×2 (09:00→21:12)
[2016-12-24] MEDS: POLYETHYLENE GLYCOL 17 GM PKG OG-TUBE SCH ×2 (09:00→21:00)
[2016-12-24] MEDS: ARTIFICIAL TEARS OPTH SOLN 15 ML BTL EACH EYE SCH ×3 (09:00→18:00)
[2016-12-24] MEDS: MUPIROCIN 2% CREAM 15 GM TOPICAL SCH ×2 (09:00→21:00)
[2016-12-24] MEDS: SODIUM CHLORIDE 0.9% FLUSH 10 ML FLUSH IVF SCH (09:00)
[2016-12-24] MEDS: COLLAGENASE OINT 30 GM TUBE TOPICAL SCH ×2 (09:00→16:39)
[2016-12-24] MEDS: INSULIN DETEMIR 100 UNITS/ML VIAL SQ SCH ×2 (09:00→21:00)
--- NOTE | 2016-12-24 09:18 | HHI.NSPN ---
History Chief Complaint: Unable to obtain due to patient's clinical condition. Interval History Much more alert today. Exam Results Vital Signs Date Time Temp Pulse Resp B/P (MAP) Pulse Ox O2 Delivery O2 Flow Rate FiO2 12/24/16 04:00 97.8 62 18 134/74 (94) 100 Intake and Output 12/24/16 12/24/16 12/25/16 08:00 16:00 00:00 Output Total 150 ml Balance -150 ml Physical Examination GENERAL: Awake and alert. No apparent distress SKIN: Warm, dry & intact. HEENT: Normocephalic, atraumatic. NECK: No JVD, trachea midline. CARDIOVASCULAR: S1S2 w/RRR w/o M/G/R, radial & pedal pulses 2+ bilaterally, cap refill < 2 sec, 1+ pedal edema. RESPIRATORY: Clear but decreased bilaterally w/o W/R/R, equal excursion, nonlaboured, on RA. GASTROINTESTINAL: Abdomen soft, nontender, bowel sounds not appreciated. MUSCULOSKELETAL: No evident deformity or clubbing. NEUROLOGICAL: Awake and alert. He is actually talking relatively well today, short phrases. Extraocular movements are intact. Facial motor movements appear symmetric Moves all extremities with good strength. Medical Decision Making Impression and Plan Impression/plan: 1. Traumatic brain injury. Most recent CT scan stable with resolving contusions, stable mild to moderate subdural fluid collections without significant mass effect. He is much more alert on examination of 12/24/16, conversing relatively well. 2. UTI. Initial treatment completed. Follow-up urine culture negative thus far. 3. Hypertension, atrial fibrillation. Remains on Lopressor. 3. Recent seizures. He remains on Keppra and Dilantin. Dilantin level today satisfactory 4. Sacral decubitus ulcer. Continuing decubitus precautions, wound care, Santyl 5. Leukocytosis. Hematology following-workup in progress 6. Diabetes. Remains on insulin sliding scale. 7. Respiratory insufficiency. Improving. Most recent chest x-ray improved. Weaning off oxygen. Family is continuing efforts to have the patient transferred back to [facility]. Tony Godfrey MD Dec 24, 2016 09:18
[2016-12-24] MEDS: LANSOPRAZOLE SOLUTAB 30 MG TAB NG SCH (10:10)
[2016-12-24] MEDS: MEGESTROL ACETATE SUSP 400 MG/10 ML CUP PO SCH (10:10)
[2016-12-24] MEDS: FUROSEMIDE 40 MG/4 ML VIAL IV PUSH SCH (10:11)
[2016-12-24] MEDS: TOLTERODINE TARTRATE 2 MG CAP LA PO SCH (10:12)
[2016-12-24] MEDS: DOCUSATE SODIUM 100 MG/10 ML UDC PO SCH ×2 (10:12→21:11)
[2016-12-24] MEDS: PHENYTOIN SODIUM 100 MG CAP PO SCH ×3 (10:13→18:04)
[2016-12-24] MEDS: FINASTERIDE 5 MG TAB PO SCH (10:13)
[2016-12-24] MEDS: amLODIPine BESYLATE 5 MG TAB PO SCH (10:15)
[2016-12-24 10:54] LABS: AUTOMATED NEUTROPHIL # 2.7 TH/MM3 (1.8-7.7); BASOPHIL # 0.1 TH/MM3 (0-0.2); BASOPHIL % 0.3 % (0.0-2.0); EOSINOPHIL # 0.1 TH/MM3 (0-0.4); EOSINOPHIL % 0.8 % (0.0-4.0); HEMATOCRIT 37.6 % (39.0-51.0); LYMPH % 75.3 % (9.0-44.0); LYMPHOCYTE # 12.5 TH/MM3 (1.0-4.8); MEAN CELL VOLUME 88.5 FL (80.0-100.0); MEAN CORPUSCULAR HEMOGLOBIN 29.3 PG (27.0-34.0); MEAN CORPUSCULAR HGB CONC 33.1 % (32.0-36.0); MONO % 7.6 % (0.0-8.0); PLATELET COUNT 418 TH/MM3 (150-450); RED BLOOD COUNT 4.25 MIL/MM3 (4.50-5.90); RED CELL DISTRIBUTION WIDTH 18.8 % (11.6-17.2); WHITE BLOOD COUNT 16.6 TH/MM3 (4.0-11.0)
[2016-12-24 11:00] LABS: HEMO FLAGS AUTO DIFF
[2016-12-24 11:15] LABS: ANION GAP 6 MEQ/L (5-15); AST (GOT) 39 U/L (15-37); BLOOD UREA NITROGEN 31 MG/DL (7-18); CHLORIDE 106 MEQ/L (98-107); GLOMERULAR FILTRATION RATE 111 ML/MIN (>89); MAGNESIUM 2.1 MG/DL (1.5-2.5); SODIUM (NA) 141 MEQ/L (136-145)
[2016-12-24 11:23] LABS: ALKALINE PHOSPHATASE 177 U/L (45-117); ALT (GPT) 48 U/L (12-78); TOTAL BILIRUBIN ADULT 0.7 MG/DL (0.2-1.0)
--- NOTE | 2016-12-24 11:45 | HHI.PR ---
Subjective Remarks Follow up visit SDH, UE DVT, HTN, DM2. Patient seen and examined today. Patient is laying in bed. Continues to be drowsy and lethargic. Grimaces to pain. Occasional cough noted. As per nursing, no acute issues overnight. Patient was out of bed yesterday for about 2 hours with physical therapy. Appears comfortable. 12/16: Stable in his bedroom, in sitting position and sometimes seen in chair. continue confused. no nausea, vomit or diarrhea his Daughter by his side. 12/17: Seen in his bedroom in the presence of His Daughter and Daughter, they asked me about his father and consulted to Palliative care consult placed but they want to continue Aggressive management at this time. 12/18: Stable, Lethargic and weak as per her Daughter in the room, Mrs. Cardozo. No Nausea, vomit or diarrhea. 12/19: Seen with his Son in the room Mr. Sanders, stable no changes to anterior assessment, has Noriega cath in place, adjusted Insulin due to uncontrolled blood sugar. 12/20: Seen in the presence of his Daughter no new issues, discussed with Neurosurgery specialist PARVIN, awaiting for [facility] approval to come back to [place], no nausea, vomit or diarrhea, improving as per Neurosurgery 10-15 NOT BEEN CLEARED TO GO HOME YET, AWAIT CLEARANCE BY HIS EMBASSY TOLERATING A DIET BUT VERY SLOW TO EAT IT 10-16 SUGARS ARE BORDERLINE BUT POOR ORAL INTAKE STILL BLOOD SUGAR WAS 130S THIS MORNING DW RN AND FAMILY AND PT 10-17 NO NEW COMPLAINTS DW RN AND DAUGHTER AND CM 10-18 SEEN SITTING IN CHAIR WITH DAUGHTER IN ATTENDANCE NO NEW COMPLAINTS AWAIT SAFE TRANSIT HOME TO [facility] Objective Vitals Vital Signs Date Time Temp Pulse Resp B/P (MAP) Pulse Ox O2 Delivery O2 Flow Rate FiO2 12/24/16 08:00 97.9 94 20 145/92 (109) 98 12/24/16 04:00 97.8 62 18 134/74 (94) 100 12/24/16 00:00 98.0 96 19 139/87 (104) 98 12/23/16 20:00 97.8 100 19 168/74 (105) 99 12/23/16 16:00 97.6 95 18 150/72 (98) 97 12/23/16 12:00 97.7 114 20 136/78 (97) 99 I/O 12/23/16 12/23/16 12/23/16 12/24/16 12/24/16 12/24/16 06:59 14:59 22:59 06:59 14:59 22:59 Output Total 100 ml 425 ml 150 ml 150 ml Balance -100 ml -425 ml -150 ml -150 ml Output Urine Total 100 ml 425 ml 150 ml 150 ml # Bowel Movements 0 1 0 1 Result Diagram: 12/24/16 0836 12/24/16 0836 Other Results Laboratory Tests Test 12/23/16 06:34 12/24/16 08:36 White Blood Count 13.5 TH/MM3 16.6 TH/MM3 Red Blood Count 4.15 MIL/MM3 4.25 MIL/MM3 Hemoglobin 12.0 GM/DL 12.4 GM/DL Hematocrit 36.4 % 37.6 % Mean Corpuscular Volume 87.6 FL 88.5 FL Mean Corpuscular Hemoglobin 28.9 PG 29.3 PG Mean Corpuscular Hemoglobin Concent 33.0 % 33.1 % Red Cell Distribution Width 19.3 % 18.8 % Platelet Count 425 TH/MM3 418 TH/MM3 Mean Platelet Volume 7.0 FL 7.7 FL CBC Comment AUTO DIFF AUTO DIFF Differential Total Cells Counted 100 Neutrophils % (Manual) 24 % Lymphocytes % 63 % Monocytes % 10 % Eosinophils % 3 % Neutrophils # (Manual) 3.2 TH/MM3 Differential Comment FINAL DIFF MANUAL Platelet Estimate NORMAL Platelet Morphology Comment NORMAL Blood Urea Nitrogen 29 MG/DL 31 MG/DL Creatinine 0.52 MG/DL 0.68 MG/DL Random Glucose 128 MG/DL 78 MG/DL Total Protein 7.8 GM/DL 8.1 GM/DL Albumin 2.6 GM/DL 2.7 GM/DL Calcium Level 10.2 MG/DL 10.4 MG/DL Phosphorus Level 2.9 MG/DL 2.5 MG/DL Magnesium Level 2.0 MG/DL 2.1 MG/DL Alkaline Phosphatase 169 U/L 177 U/L Aspartate Amino Transf (AST/SGOT) 46 U/L 39 U/L Alanine Aminotransferase (ALT/SGPT) 50 U/L 48 U/L Total Bilirubin 0.7 MG/DL 0.7 MG/DL Sodium Level 141 MEQ/L 141 MEQ/L Potassium Level 3.1 MEQ/L 4.0 MEQ/L Chloride Level 104 MEQ/L 106 MEQ/L Carbon Dioxide Level 28.7 MEQ/L 29.0 MEQ/L Anion Gap 8 MEQ/L 6 MEQ/L Estimat Glomerular Filtration Rate 152 ML/MIN 111 ML/MIN Neutrophils (%) (Auto) 16.0 % Lymphocytes (%) (Auto) 75.3 % Monocytes (%) (Auto) 7.6 % Eosinophils (%) (Auto) 0.8 % Basophils (%) (Auto) 0.3 % Neutrophils # (Auto) 2.7 TH/MM3 Lymphocytes # (Auto) 12.5 TH/MM3 Monocytes # (Auto) 1.3 TH/MM3 Eosinophils # (Auto) 0.1 TH/MM3 Basophils # (Auto) 0.1 TH/MM3 Imaging Last Impressions Brain MRI 12/13/16 0000 Signed Impressions: Service Date/Time: Tuesday, December 13, 2016 12:20 - CONCLUSION: 1. The examination demonstrates multiple small areas of intraparenchymal and extra-axial hemorrhage as described above. These areas are more apparent on the patient's MRI examination than on the CT. Direct comparison is made. The areas of edema and hemorrhage appear similar though they are isointense on the CT. 2. 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 There is cortical atrophy. Anthony Burns MD Chest X-Ray 12/04/16 0000 Signed Impressions: Service Date/Time: November 11:58 - CONCLUSION: Improving aeration. Lonnie Blanchard MD Upper Extremity Ultrasound 12/02/16 0000 Signed Impressions: Service Date/Time: Saturday, December 03, 2016 00:53 - CONCLUSION: 1. Occlusive DVT in the cephalic and basilic vein on the right. Alex Goode MD Head CT 12/01/16 0000 Signed Impressions: Service Date/Time: Thursday, December 01, 2016 13:14 - CONCLUSION: Evolving intracranial hemorrhagic foci as above, both intra-axial and extra-axial. Jesus Lee MD Modified Barium Swallow 11/30/16 0000 Signed Impressions: Service Date/Time: Wednesday, November 30, 2016 00:00 - CONCLUSION: Please refer to speech pathology report for full details. Lonnie Cook MD Transcranial Doppler Study Complete 11/17/16 0000 Signed Impressions: Service Date/Time: Thursday, November 17, 2016 10:03 - CONCLUSION: 1. Nondiagnostic examination due to poor transcranial windows. Konstantin Dash MD Abdomen X-Ray 11/12/16 0000 Signed Impressions: Service Date/Time: Saturday, November 12, 2016 08:23 - CONCLUSION: 1. Gastric tube in good position. 2. Probable right renal stones. Narayan Coulter MD Cervical Spine CT 11/09/16 195 Signed Impressions: Service Date/Time: Wednesday, November 09, 2016 20:14 - CONCLUSION: Negative trauma CT. Cj Isidro MD Objective Remarks GENERAL: CONFUSED SKIN: Warm and dry. HEAD: Atraumatic. Normocephalic. EYES: Pupils equal and round. No scleral icterus. No injection or drainage. ENT: No nasal bleeding or discharge. Mucous membranes pink and moist. NECK: Trachea midline. No JVD. SUPPLE CARDIOVASCULAR: IRRegular rate and rhythm. S1,S 2 NO S3 OR S4 RESPIRATORY: No accessory muscle use. Clear to auscultation. Breath sounds equal bilaterally. GASTROINTESTINAL: Abdomen soft, non-tender, nondistended. Hepatic and splenic margins not palpable. MUSCULOSKELETAL: Extremities without clubbing, cyanosis, or edema. No obvious deformities. NEUROLOGICAL: Awake and alert. No obvious cranial nerve deficits. Motor grossly within normal limits. 4 out of 5 muscle strength in the arms and legs. ABNormal speech. PSYCHIATRIC: INAppropriate mood and affect; insight and judgment ABnormal. Medications and IVs Current Medications Ondansetron HCl (Zofran Inj) 4 mg ONCE ONCE IVP Last administered on 11/09/16 19:57; Start 11/09/16 at 20:00; Stop 11/09/16 at 20:01; Status DC Sodium Chloride (NS Flush) 2 ml UNSCH PRN IVF FLUSH AFTER USING IV ACCESS; Start 11/09/16 at 20:00; Stop 11/09/16 at 22:09; Status DC Sodium Chloride 250 ml @ 15 mls/hr ONCE ONCE IV Last administered on 23:09; Start 11/09/16 at 21:00; Stop 11/10/16 at 13:39; Status DC Sodium Chloride (NS Flush) 2 ml BID IV FLUSH Last administered on 11/11/16 09: 00; Start 11/10/16 at 09:00; Stop 11/12/16 at 08:15; Status DC Sodium Chloride (NS Flush) 2 ml UNSCH PRN IVF FLUSH AFTER USING IV ACCESS; Start 11/09/16 at 22:15; Stop 11/12/16 at 08:15; Status DC Nicardipine HCl 25 mg/Sodium Chloride 260 ml @ 52 mls/hr TITRATE PRN IV Blood pressure management Last administered on 11/09/16 22:25; Start 11/09/16 at 22:15 ; Stop 11/09/16 at 23:53; Status DC Metoclopramide HCl (Reglan Inj) 10 mg ONCE ONCE IV PUSH Last administered on 22:36; Start 11/09/16 at 22:30; Stop 11/09/16 at 22:31; Status DC Morphine Sulfate (Morphine Inj) 3 mg ONCE ONCE IV PUSH Last administered on 23:01; Start 11/09/16 at 23:00; Stop 11/09/16 at 23:01; Status DC Finasteride (Proscar) 5 mg DAILY PO Last administered on 12/24/16 10:13; Start 11/10/16 at 09:00 Glimepiride (Amaryl) 1 mg DAILY PO Last administered on 11/10/16 10:23; Start 11/10/16 at 09:00; Stop 11/11/16 at 13:35; Status DC Tamsulosin HCl (Flomax) 0.4 mg HS PO Last administered on 12/23/16 21:08; Start 11/10/16 at 21:00 Bisoprolol Fumarate (Zebeta) 5 mg DAILY PO Last administered on 11/16/16 08:35 ; Start 11/10/16 at 09:00; Stop 11/16/16 at 09:35; Status DC Tolterodine Tartrate (Detrol La) 2 mg DAILY PO Last administered on 12/24/16 10:12; Start 11/10/16 at 09:00 Nicardipine HCl 25 mg/Sodium Chloride 260 ml @ 52 mls/hr TITRATE PRN IV SYS BP GREATER THAN 150 MMHG; Start 11/09/16 at 23:45; Stop 11/21/16 at 14:08; Status DC Docusate Sodium (Colace) 100 mg BID PO Last administered on 11/10/16 21:26; Start 11/10/16 at 09:00; Stop 11/12/16 at 08:21; Status DC Pantoprazole Sodium (Protonix) 40 mg DAILY PO Last administered on 11/10/16 10: 13; Start 11/10/16 at 09:00; Stop 11/11/16 at 13:35; Status DC Ondansetron HCl (Zofran Inj) 4 mg Q6H PRN IV NAUSEA OR VOMITING; Start 11/09/16 at 23:45; Stop 11/12/16 at 08:55; Status DC Potassium Chloride/Sodium Chloride 1,000 ml @ 84 mls/hr [id number] IV Last administered on 11/11/16 12:34; Start 11/09/16 at 23:45; Stop 11/11/16 at 13:35; Status DC Dextrose (D50w (Vial) Inj) 50 ml UNSCH PRN IV HYPOGLYCEMIA-SEE COMMENTS Last administered on 11/24/16 04:19; Start 11/09/16 at 23:45; Stop 11/25/16 at 09:27 ; Status DC Glucagon (Glucagon Inj) 1 mg UNSCH PRN OTHER HYPOGLYCEMIA-SEE COMMENTS Last administered on 11/24/16 03:48; Start 11/09/16 at 23:45 Insulin Human Regular (NovoLIN R SUPPLEMENTAL SCALE) 1 ACHS SLIDING SCALE SQ Last administered on 11/10/16 11:00; Start 11/10/16 at 07:00; Stop 11/12/16 at 08: 21; Status DC Levofloxacin/ Dextrose 150 ml @ 100 mls/hr Q24H IV Last administered on 01:01; Start 11/10/16 at 01:00; Stop 11/12/16 at 08:21; Status DC Acetaminophen (Tylenol) 650 mg Q4H PRN PO FEVER; Start 11/10/16 at 01:45; Stop 11/12/16 at 08:21; Status DC Magnesium Sulfate/ Dextrose 100 ml @ 100 mls/hr ONCE ONCE IV Last administered on 11/10/16 02:44; Start 11/10/16 at 01:45; Stop 11/10/16 at 02:44; Status DC Acetaminophen/ Hydrocodone Bitart ([place] 10-325 Mg) 1 tab Q4H PO Last administered on 11/10/16 18:19; Start 11/10/16 at 17:00; Stop 11/12/16 at 08:21; Status DC Acetaminophen/ Hydrocodone Bitart ([place] 10-325 Mg) 1 tab Q4H PRN PO PAIN 4-10 ; Start 11/10/16 at 17:00; Stop 11/12/16 at 08:21; Status DC Morphine Sulfate (Morphine Inj) 2 mg Q4H PRN IV PUSH BREAKTHROUGH PAIN Last administered on 11/10/16 18:18; Start 11/10/16 at 17:15; Stop 11/12/16 at 08:26; Status DC Albuterol/ Ipratropium (Duoneb Neb) 1 ampule Q6HR WHILE AWAKE NEB PRN NEB WHEEZING; Start 11/11/16 at 07:45; Stop 11/11/16 at 08:10; Status DC Albuterol/ Ipratropium (Duoneb Neb) 1 ampule Q2HR NEB PRN NEB SOB/WHEEZING Last administered on 11/12/16 02:10; Start 11/11/16 at 09:00; Stop 11/12/16 at 08: 21; Status DC Levetriacetam 100 ml @ 400 mls/hr BOLUS ONCE IV Last administered on 12:33; Start 11/11/16 at 12:30; Stop 11/11/16 at 12:44; Status DC Levetriacetam 100 ml @ 400 mls/hr Q12HR IV Last administered on 11/12/16 09:30 ; Start 11/11/16 at 21:00; Stop 11/12/16 at 17:07; Status DC Sodium Chloride 188 meq/Sodium Chloride 1,047 ml @ 40 mls/hr Q24H IV Last administered on 11/11/16 15:00; Start 11/11/16 at 15:00; Stop 11/12/16 at 08:21; Status DC Acetaminophen (Ofirmev 1000 Mg/ 100 ml Inj) 1,000 mg ONCE ONCE IV Last administered on 11/11/16 14:54; Start 11/11/16 at 14:30; Stop 11/11/16 at 14:31; Status DC Albuterol/ Ipratropium (Duoneb Neb) 1 ampule Q4HR NEB PRN NEB wheezing; Start 11/11/16 at 13:30; Stop 11/12/16 at 08:21; Status DC Furosemide (Lasix Inj) 20 mg ONCE ONCE IV PUSH Last administered on 11/11/16 14:54; Start 11/11/16 at 13:30; Stop 11/11/16 at 14:27; Status DC Sodium Chloride 188 meq/Sodium Chloride 200 ml @ 200 mls/hr Q1H IV Last administered on 11/11/16 16:00; Start 11/11/16 at 15:00; Stop 11/11/16 at 16:00; Status DC Fosphenytoin Sodium 1000 mgpe/ Sodium Chloride 70 ml @ 280 mls/hr ONCE ONCE IV Last administered on 11/11/16 21:44; Start 11/11/16 at 21:30; Stop 11/11/16 at 21:44; Status DC Fosphenytoin Sodium (Cerebyx Inj) 100 mgpe Q8HR IV Last administered on 12:54; Start 11/12/16 at 06:00; Stop 11/12/16 at 17:07; Status DC Lorazepam (Ativan Inj) 1 mg Q5M PRN IV SEIZURES Last administered on 11/12/16 01:45; Start 11/12/16 at 00:45 Etomidate (Amidate Inj) 40 mg ONCE ONCE IV PUSH Last administered on 11/12/16 07:00; Start 11/12/16 at 07:00; Stop 11/12/16 at 07:15; Status DC Rocuronium Hitchcock (Zemuron Inj) 100 mg BOLUS ONCE IV Last administered on 11/12 07:00; Start 11/12/16 at 07:00; Stop 11/12/16 at 07:16; Status DC Lidocaine HCl (Xylocaine 2% Inj) 100 mg ONCE ONCE IV PUSH Last administered on 11/12/16 07:39; Start 11/12/16 at 07:15; Stop 11/12/16 at 07:16; Status DC Chlorhexidine Gluconate (Peridex 0.12% Liq) 15 ml BID@08,20 MT Last administered on 12/23/16 20:00; Start 11/12/16 at 08:00 Midazolam HCl 100 ml @ 2 mls/hr TITRATE PRN IV SEDATION Last administered on 08:49; Start 11/12/16 at 07:15; Stop 12/08/16 at 12:35; Status DC Fentanyl Citrate 250 ml @ 5 mls/hr TITRATE PRN IV SEDATION Last administered on 11/13/16 23:20; Start 11/12/16 at 07:15; Stop 11/21/16 at 14:08; Status DC Sodium Chloride (NS Flush) DAILY IVF Last administered on 12/23/16 09:00; Start 11/12/16 at 09:00 Sodium Chloride (NS Flush) UNSCH PRN IVF SEE PROTOCOL; Start 11/12/16 at 08:15 Lansoprazole (Prevacid Odt) 30 mg DAILY NG Last administered on 12/24/16 10: 10; Start 11/12/16 at 09:00 Sodium Chloride 500 ml @ 20 mls/hr CONTINUOUS IV ; Start 11/12/16 at 09:00; Status Cancel Pharmacy Profile Note 0 ml @ 0 mls/hr UNSCH OTHER ; Start 11/12/16 at 08:30; Stop 11/15/16 at 10:51; Status DC Aztreonam 2000 mg/ Sodium Chloride 100 ml @ 200 mls/hr Q8H IV Last administered on 11/15/16 10:09; Start 11/12/16 at 09:00; Stop 11/15/16 at 10:51; Status DC Metronidazole (Flagyl) 500 mg Q8HR PO Last administered on 11/15/16 06:26; Start 11/12/16 at 14:00; Stop 11/15/16 at 10:51; Status DC Arginine HCl (Duane Powder) 1 pack BID G-TUBE Last administered on 11/14/16 21: 00; Start 11/12/16 at 09:00; Stop 11/15/16 at 04:13; Status DC Insulin Human Regular (NovoLIN R SUPPLEMENTAL SCALE) 1 Q6HR SQ Last administered on 11/17/16 05:59; Start 11/12/16 at 12:00; Stop 11/17/16 at 08:09 ; Status DC Docusate Sodium (Colace Liq) 100 mg Q12HR PO Last administered on 12/24/16 10 :12; Start 11/12/16 at 09:00 Sennosides (Senna Liq) 8.8 mg BID NG Last administered on 12/04/16 08:39; Start 11/12/16 at 09:00; Stop 12/04/16 at 11:03; Status DC Sodium Chloride (NS Flush) 2 ml UNSCH PRN IV FLUSH FLUSH AFTER USING IV ACCESS ; Start 11/12/16 at 08:30 Sodium Chloride (NS Flush) 2 ml BID IV FLUSH Last administered on 12/23/16 21 :09; Start 11/12/16 at 09:00 Artificial Tears (Tears Naturale Opth Soln) 1 drop TID EACH EYE Last administered on 12/23/16 13:00; Start 11/12/16 at 09:00 Ondansetron HCl (Zofran Inj) 4 mg Q6H PRN IV NAUSEA OR VOMITING Last administered on 11/15/16 05:45; Start 11/12/16 at 08:30 Albuterol/ Ipratropium (Duoneb Neb) 1 ampule Q6HR NEB INH Last administered on 11/16/16 07:57; Start 11/12/16 at 10:00; Stop 11/16/16 at 09:59; Status DC Albuterol Sulfate (Albuterol Neb) 2.5 mg Q2HR NEB PRN INH SOB/WHEEZING Last administered on 11/29/16 21:19; Start 11/12/16 at 08:30 Bisacodyl (Dulcolax Supp) 10 mg DAILY PRN RECTAL SEVERE CONSITIPATION; Start at 08:30 Lactulose (Lactulose Liq) 30 ml DAILY PRN PO SEVERE CONSITIPATION; Start at 08:30; Stop 12/04/16 at 11:03; Status DC Sodium Chloride 1,000 ml @ 84 mls/hr [id number] IV Last administered on 11/13/16 00:08; Start 11/12/16 at 08:30; Stop 11/13/16 at 08:18; Status DC Potassium Chloride 100 ml @ 50 mls/hr Q2H PRN IV-CENTRAL For Potassium 2.8 - 3.2 mEq/L Last administered on 11/13/16 08:49; Start 11/12/16 at 08:30; Stop at 07:46; Status DC Potassium Chloride 100 ml @ 50 mls/hr Q2H PRN IV For Potassium 2.8 - 3.2 mEq/ L Last administered on 11/23/16 13:09; Start 11/12/16 at 08:30; Stop 11/24/16 at 07:46; Status DC Potassium Bicarb/ Potassium Chloride (K-Lyte Cl Eff) 50 meq UNSCH PRN PO For Potassium 3.3 - 3.5 mEq/L Last administered on 11/20/16 13:06; Start 11/12/16 at 08:30; Stop 11/24/16 at 07:46; Status DC Potassium Chloride 100 ml @ 25 mls/hr UNSCH PRN IV-CENTRAL For Potassium 3.3 - 3.5 mEq/L Last administered on 11/16/16 17:47; Start 11/12/16 at 08:30; Stop 11/24/16 at 07:46; Status DC Potassium Chloride 100 ml @ 50 mls/hr Q2H PRN IV For Potassium 3.3 - 3.5 mEq/ L Last administered on 11/16/16 05:34; Start 11/12/16 at 08:30; Stop 11/24/16 at 07:46; Status DC Magnesium Sulfate 4 gm/Sodium Chloride 100 ml @ 50 mls/hr UNSCH PRN IV For Magnesium 0.9 - 1.1 mg/dL; Start 11/12/16 at 08:30; Stop 11/24/16 at 07:46; Status DC Magnesium Oxide (Mag-Ox) 800 mg UNSCH PRN PO For Magnesium 1.2 - 1.6 mg/dL; Start 11/12/16 at 08:30; Stop 11/24/16 at 07:46; Status DC Magnesium Sulfate 2 gm/Sodium Chloride 100 ml @ 50 mls/hr UNSCH PRN IV For Magnesium 1.2 - 1.6 mg/dL; Start 11/12/16 at 08:30; Stop 11/24/16 at 07:46; Status DC Potassium Phosphate (K-Phos) 2,000 mg Q4H PRN PO For Phosphorus < 2.5 mg/dL Last administered on 11/13/16 10:35; Start 11/12/16 at 08:30; Stop 11/24/16 at 07 :46; Status DC Sodium Phosphate 30 mmol/Sodium Chloride 250 ml @ 42 mls/hr UNSCH PRN IV For Phosphorus < 2.5 mg/dL Last administered on 11/19/16 13:58; Start 11/12/16 at 08 :30; Stop 11/24/16 at 07:46; Status DC Potassium Phosphate (K-Phos) 2,000 mg UNSCH PRN PO/TUBE SEE LABEL COMMENTS; Start 11/12/16 at 08:30; Stop 11/24/16 at 07:46; Status DC Potassium Phosphate 30 mmol/ Sodium Chloride 260 ml @ 42 mls/hr UNSCH PRN IV SEE LABEL COMMENTS Last administered on 11/14/16 06:15; Start 11/12/16 at 08:30; Stop 11/24/16 at 07:46; Status DC Acetaminophen (Tylenol 650 Mg/ 20 ml Liq) 650 mg Q6H PRN NG FEVER Last administered on 12/20/16 02:14; Start 11/12/16 at 08:45 Vancomycin HCl 2500 mg/Sodium Chloride 525 ml @ 250 mls/hr ONCE ONCE IV ; Start 11/12/16 at 10:00; Stop 11/12/16 at 10:00; Status DC Vancomycin HCl 2000 mg/Sodium Chloride 520 ml @ 250 mls/hr Q24H IV Last administered on 11/14/16 10:23; Start 11/12/16 at 11:00; Stop 11/15/16 at 10:51; Status DC Sodium Chloride 500 ml @ 20 mls/hr Q24H IV Last administered on 11/16/16 08: 34; Start 11/12/16 at 09:00; Stop 11/16/16 at 09:35; Status DC Miscellaneous Information SPECIFIC LAB TO BE DRAWN:VANCOMYCIN TROUGH DATE TO... ONCE ONCE .XX Last administered on 11/15/16 10:40; Start 11/15/16 at 10:45; Stop 11/15/16 at 10:46; Status DC Lorazepam (Ativan Inj) 2 mg ONCE ONCE IV PUSH Last administered on 11/12/16 12 :43; Start 11/12/16 at 12:30; Stop 11/12/16 at 12:31; Status DC Levetriacetam 100 ml @ 400 mls/hr Q8HR IV Last administered on 11/30/16 05:35 ; Start 11/12/16 at 22:00; Status Future Hold Fosphenytoin Sodium (Cerebyx Inj) 100 mgpe Q6HR IV Last administered on 05:34; Start 11/12/16 at 18:00; Stop 11/18/16 at 13:11; Status DC Potassium Phosphate 30 mmol/ Sodium Chloride 260 ml @ 43.333 mls/ hr ONCE ONCE IV Last administered on 11/13/16 15:42; Start 11/13/16 at 13:45; Stop at 19:44; Status DC Polyethylene Glycol (Miralax) 17 gm BID OG-TUBE Last administered on 21:09; Start 11/13/16 at 21:00 Lactulose (Lactulose Liq) 30 ml DAILY PO Last administered on 12/02/16 09:54; Start 11/14/16 at 09:00; Status Future Hold Lactulose (Lactulose Liq) 30 ml ONCE ONCE PO Last administered on 11/13/16 15: 42; Start 11/13/16 at 15:00; Stop 11/13/16 at 15:01; Status DC Mineral Oil (Mineral Oil Liq) 30 ml ONCE ONCE PO ; Start 11/13/16 at 16:00; Stop 11/13/16 at 16:01; Status DC Glycerin (Glycerin Adult Supp) 2 gm BID PRN RECTAL CONSTIPATION - SEVERE; Start 11/13/16 at 15:00 Fosphenytoin Sodium (Cerebyx Inj) 300 mgpe ONCE ONCE IV Last administered on 15:43; Start 11/13/16 at 16:00; Stop 11/13/16 at 16:01; Status DC Hydralazine HCl (Apresoline Inj) 20 mg Q4H PRN IV PUSH SBP>150, DBP>90 Last administered on 11/14/16 03:07; Start 11/14/16 at 02:15 Metoprolol Tartrate (Lopressor Inj) 5 mg Q6H PRN IV PUSH HR>100 Last administered on 11/21/16 15:18; Start 11/14/16 at 03:30; Stop 11/22/16 at 10:47 ; Status DC Metoprolol Tartrate (Lopressor) 25 mg Q12HR PO Last administered on 12/12/16 08:04; Start 11/16/16 at 09:30; Stop 12/12/16 at 17:53; Status DC Furosemide (Lasix Inj) 40 mg ONCE ONCE IV PUSH Last administered on 11/16/16 10:34; Start 11/16/16 at 09:30; Stop 11/16/16 at 09:36; Status DC Furosemide (Lasix Inj) 40 mg BID@09,18 IV PUSH Last administered on 11/16/16 17:11; Start 11/16/16 at 18:00; Stop 11/17/16 at 08:47; Status DC Midazolam HCl (Versed Inj) 2 mg ONCE ONCE IV PUSH Last administered on 05:31; Start 11/17/16 at 05:30; Stop 11/17/16 at 05:31; Status DC Fentanyl Citrate (fentaNYL INJ) 100 mcg ONCE ONCE IV PUSH Last administered on 11/17/16 05:31; Start 11/17/16 at 05:30; Stop 11/17/16 at 05:31; Status DC Fentanyl Citrate (fentaNYL INJ) 100 mcg STK-MED ONCE .ROUTE ; Start 11/17/16 at 05:30; Stop 11/17/16 at 05:31; Status DC Midazolam HCl (Versed Inj) 2 mg STK-MED ONCE .ROUTE ; Start 11/17/16 at 05:30; Stop 11/17/16 at 05:31; Status DC Sodium Chloride 1,000 ml @ 999 mls/hr BOLUS ONCE IV Last administered on 11/17 06:15; Start 11/17/16 at 06:15; Stop 11/17/16 at 07:15; Status DC Sodium Chloride 1,000 ml @ 999 mls/hr BOLUS ONCE IV Last administered on 11/17 06:15; Start 11/17/16 at 06:15; Stop 11/17/16 at 07:15; Status DC Insulin Detemir (Levemir Inj) 12 units Q12HR SQ Last administered on 11/24/16 09:00; Start 11/17/16 at 09:00; Stop 11/24/16 at 16:11; Status DC Dextrose (D50w (Vial) Inj) 50 ml UNSCH PRN IV HYPOGLYCEMIA-SEE COMMENTS; Start 11/17/16 at 08:15; Status UNV Glucagon (Glucagon Inj) 1 mg UNSCH PRN OTHER HYPOGLYCEMIA-SEE COMMENTS; Start 11/17/16 at 08:15; Status UNV Insulin Aspart (NovoLOG SUPPLEMENTAL SCALE) 1 Q6H SQ Last administered on 22:13; Start 11/17/16 at 09:00; Stop 11/24/16 at 16:17; Status DC Pharmacy Profile Note 0 ml @ 0 mls/hr UNSCH OTHER ; Start 11/17/16 at 08:15; Stop 12/10/16 at 09:28; Status DC Cefepime HCl 2000 mg/Sodium Chloride 100 ml @ 200 mls/hr Q12H IV Last administered on 11/20/16 09:03; Start 11/17/16 at 09:00; Stop 11/20/16 at 11:24 ; Status DC Potassium Chloride/Sodium Chloride 1,000 ml @ 100 mls/hr Q10H IV Last administered on 11/18/16 04:02; Start 11/17/16 at 08:45; Stop 11/18/16 at 09:29 ; Status DC Metronidazole (Flagyl) 500 mg Q8HR PO Last administered on 11/21/16 07:50; Start 11/17/16 at 09:00; Stop 11/21/16 at 14:08; Status DC Sodium Chloride 1,000 ml @ 999 mls/hr BOLUS ONCE IV Last administered on 11/17 09:32; Start 11/17/16 at 09:00; Stop 11/17/16 at 10:00; Status DC Vancomycin HCl 2000 mg/Sodium Chloride 520 ml @ 260 mls/hr ONCE ONCE IV Last administered on 11/17/16 13:12; Start 11/17/16 at 12:00; Stop 11/17/16 at 13:59 ; Status DC Furosemide (Lasix Inj) 60 mg ONCE ONCE IV PUSH Last administered on 11/18/16 09:36; Start 11/18/16 at 09:30; Stop 11/18/16 at 09:31; Status DC Albuterol/ Ipratropium (Duoneb Neb) 1 ampule Q6HR NEB NEB Last administered on 11/22/16 08:01; Start 11/18/16 at 10:00; Stop 11/22/16 at 09:59; Status DC Vancomycin HCl 2250 mg/Sodium Chloride 522.5 ml @ 250 mls/hr Q18H IV Last administered on 11/21/16 15:10; Start 11/18/16 at 13:00; Stop 11/23/16 at 08:53 ; Status DC Miscellaneous Information SPECIFIC LAB TO BE DRAWN:VANCO TROUGH DATE TO... ONCE ONCE .XX Last administered on 11/20/16 00:45; Start 11/20/16 at 00:45; Stop 11/20/16 at 00:46; Status DC Fosphenytoin Sodium 100 mgpe/ Sodium Chloride 52 ml @ 208 mls/hr Q6HR IV Last administered on 11/30/16 13:10; Start 11/18/16 at 13:00; Status Future Hold Diltiazem HCl (Cardizem Inj) 15 mg ONCE ONCE IV PUSH Last administered on 11/19 01:01; Start 11/19/16 at 00:45; Stop 11/19/16 at 00:48; Status DC Diltiazem HCl 125 mg/Sodium Chloride 125 ml @ 5 mls/hr TITRATE PRN IV Tachycardia; Start 11/19/16 at 00:45; Stop 11/22/16 at 10:47; Status DC Metoprolol Tartrate (Lopressor Inj) 5 mg ONCE ONCE IV PUSH Last administered on 11/19/16 00:53; Start 11/19/16 at 00:45; Stop 11/19/16 at 00:49; Status DC Digoxin (Lanoxin Inj) 0.25 mg ONCE ONCE IV PUSH ; Start 11/19/16 at 00:45; Stop 11/19/16 at 00:47; Status DC Miscellaneous Information SPECIFIC LAB TO BE RENETTA... ONCE ONCE .XX Last administered on 11/22/16 06:45; Start 11/22/16 at 06:45; Stop 11/22/16 at 06:46 ; Status DC Norepinephrine Bitartrate 4 mg/ Sodium Chloride 250 ml @ 7.5 mls/hr TITRATE PRN IV Blood pressure management; Start 11/20/16 at 16:30; Stop 11/21/16 at 14: 08; Status DC Terbutaline Sulfate (Brethine Inj) 1 mg UNSCH PRN SQ For Extravasation; Start 11/20/16 at 16:30 Sodium Chloride 500 ml @ 20 mls/hr ONCE ONCE IV Last administered on 18:05; Start 11/20/16 at 16:30; Stop 11/21/16 at 14:08; Status DC Furosemide (Lasix Inj) 40 mg ONCE ONCE IV PUSH Last administered on 11/21/16 09:31; Start 11/21/16 at 09:30; Stop 11/21/16 at 09:31; Status DC Albuterol/ Ipratropium (Duoneb Neb) 1 ampule ONCE ONCE NEB Last administered on 11/21/16 09:30; Start 11/21/16 at 09:30; Stop 11/21/16 at 10:00; Status DC Potassium Chloride 100 ml @ 50 mls/hr BOLUS ONCE IV ; Start 11/21/16 at 10:15 ; Stop 11/21/16 at 12:14; Status DC Furosemide (Lasix Inj) 40 mg DAILY IV PUSH Last administered on 12/24/16 10: 11; Start 11/22/16 at 11:00 Vancomycin HCl 1600 mg/Sodium Chloride 516 ml @ 250 mls/hr ONCE ONCE IV Last administered on 11/23/16 10:47; Start 11/23/16 at 11:00; Stop 11/23/16 at 13:03 ; Status DC Vancomycin HCl 1500 mg/Sodium Chloride 515 ml @ 257.5 mls/ hr Q24H IV Last administered on 11/29/16 12:20; Start 11/24/16 at 13:00; Stop 11/30/16 at 14:50 ; Status DC Miscellaneous Information SPECIFIC LAB TO BE RENETTA... ONCE ONCE .XX Last administered on 11/26/16 12:45; Start 11/26/16 at 12:45; Stop 11/26/16 at 12:46 ; Status DC Dextrose (D50w (Syr) Inj) 50 ml STK-MED ONCE .ROUTE Last administered on 15:18; Start 11/24/16 at 15:14; Stop 11/24/16 at 15:15; Status DC Dextrose (D50w (Syr) Inj) 50 ml STK-MED ONCE .ROUTE ; Start 11/24/16 at 15:21; Stop 11/24/16 at 15:22; Status DC Insulin Aspart (NovoLOG SUPPLEMENTAL SCALE) 1 ACHS SLIDING SCALE SQ Last administered on 12/16/16 08:42; Start 11/24/16 at 17:00; Stop 12/16/16 at 10: 40; Status DC Dextrose (D50w (Syr) Inj) 50 ml UNSCH PRN IV HYPOGLYCEMIA-SEE COMMENTS Last administered on 11/25/16 09:46; Start 11/25/16 at 09:30 Megestrol Acetate (Megace Liq) 400 mg ONCE ONCE PO Last administered on 13:08; Start 11/25/16 at 11:15; Stop 11/25/16 at 11:19; Status DC Megestrol Acetate (Megace Liq) 400 mg DAILY PO Last administered on 12/24/16 10:10; Start 11/26/16 at 09:00 Calcium Carbonate (Tums Chew) 500 mg ONCE ONCE CHEW Last administered on 10:47; Start 11/26/16 at 08:15; Stop 11/26/16 at 08:17; Status DC Calcium Carbonate (Tums Chew) 500 mg Q12HR CHEW Last administered on 12/05/16 20:51; Start 11/26/16 at 09:00; Stop 12/06/16 at 08:59; Status DC Potassium Phosphate (K-Phos) 500 mg DAILY PO Last administered on 11/28/16 09: 19; Start 11/26/16 at 09:00; Stop 11/29/16 at 08:59; Status DC Miscellaneous Information SPECIFIC LAB TO BE DRAWN:VANCOMYCIN TROUGH DATE TO... ONCE ONCE .XX Last administered on 11/30/16 12:45; Start 11/30/16 at 12:45; Stop 11/30/16 at 12:46; Status DC Potassium Bicarb/ Potassium Chloride (K-Lyte Cl Eff) 50 meq ONCE ONCE PO Last administered on 11/29/16 10:43; Start 11/29/16 at 10:30; Stop 11/29/16 at 10:31; Status DC Vancomycin HCl 1750 mg/Sodium Chloride 517.5 ml @ 257.5 mls/ hr Q24H IV ; Start 11/30/16 at 17:00; Stop 12/01/16 at 17:17; Status DC Miscellaneous Information SPECIFIC LAB TO BE RENETTA... ONCE ONCE .XX Last administered on 12/03/16 17:45; Start 12/03/16 at 17:45; Stop 12/03/16 at 17:46 ; Status DC Levetriacetam (Keppra) 1,000 mg Q8HR PO Last administered on 12/24/16 05:06; Start 11/30/16 at 22:00 Phenytoin (Dilantin) 100 mg Q6HR PO Last administered on 12/14/16 06:48; Start 11/30/16 at 19:45; Stop 12/14/16 at 11:06; Status DC Vancomycin HCl 1750 mg/Sodium Chloride 517.5 ml @ 257.5 mls/ hr Q24H IV Last administered on 12/09/16 17:27; Start 12/01/16 at 18:00; Stop 12/10/16 at 09:28 ; Status DC Aztreonam 2000 mg/ Sodium Chloride 100 ml @ 200 mls/hr Q12H IV Last administered on 12/04/16 00:10; Start 12/02/16 at 12:00; Stop 12/04/16 at 11:08 ; Status DC Mupirocin (Bactroban 2% Cream) 1 applic Q12HR TOPICAL Last administered on 09:00; Start 12/02/16 at 21:00 Fluconazole (Diflucan) 100 mg DAILY PO Last administered on 12/18/16 09:40; Start 12/04/16 at 09:00; Stop 12/18/16 at 13:32; Status DC Belladonna Alkaloids/Opium (B & O Supp) 60 mg Q6HR RECTAL Last administered on 12/05/16 05:22; Start 12/03/16 at 18:00; Stop 12/05/16 at 08:31; Status DC Collagenase (Santyl Oint) 1 applic DAILY TOPICAL Last administered on 08:31; Start 12/04/16 at 12:00 Albuterol/ Ipratropium (Duoneb Neb) 1 ampule Q6HR WHILE AWAKE NEB NEB Last administered on 12/07/16 19:43; Start 12/04/16 at 14:00; Stop 12/08/16 at 12:35 ; Status DC Hyoscyamine Sulfate (Levsin) 0.125 mg Q4H PRN PO abdo spasm; Start 12/04/16 at 11:30 Heparin Sodium (Porcine) (Heparin Central Flush) 200 units DAILY IV FLUSH Last administered on 12/23/16 09:00; Start 12/05/16 at 12:00 Miscellaneous Information SPECIFIC LAB TO BE DRAWN:VANCOMYCIN TROUGH DATE TO... ONCE ONCE .XX Last administered on 12/09/16 16:54; Start 12/09/16 at 17:45; Stop 12/09/16 at 17:46; Status DC Potassium Chloride (KCl) 30 meq ONCE ONCE PO Last administered on 12/07/16 13 :03; Start 12/07/16 at 13:00; Stop 12/07/16 at 13:01; Status DC Albuterol/ Ipratropium (Duoneb Neb) 1 ampule Q6HR WHILE AWAKE NEB NEB Last administered on 12/12/16 10:13; Start 12/08/16 at 14:00; Stop 12/12/16 at 12:29 ; Status DC Miscellaneous Information SPECIFIC LAB TO BE DRAWN:VANCO TROUGH DATE TO BE DR... ONCE ONCE .XX ; Start 12/11/16 at 17:45; Stop 12/11/16 at 17:46; Status Cancel Acetaminophen (Tylenol 160 Mg/ 5 ml Liq) 650 mg Q4H PRN PO PAIN SCALE 1-10 Last administered on 12/14/16 02:33; Start 12/11/16 at 11:00 Potassium Bicarb/ Potassium Chloride (K-Lyte Cl Eff) 50 meq ONCE ONCE PO ; Start 12/12/16 at 11:00; Stop 12/12/16 at 11:10; Status DC Potassium Chloride 100 ml @ 50 mls/hr Q2H IV Last administered on 12/12/16 14 :20; Start 12/12/16 at 11:30; Stop 12/12/16 at 15:29; Status DC Potassium Bicarb/ Potassium Chloride (K-Lyte Cl Eff) 25 meq ONCE ONCE PO Last administered on 12/12/16 11:50; Start 12/12/16 at 11:30; Stop 12/12/16 at 11:31; Status DC Metoprolol Tartrate (Lopressor) 25 mg TID PO Last administered on 12/12/16 18: 31; Start 12/12/16 at 18:00; Stop 12/13/16 at 00:44; Status DC Metoprolol Tartrate (Lopressor) 25 mg Q8HR PO Last administered on 12/24/16 05:06; Start 12/13/16 at 00:45 Phenytoin (Dilantin) 100 mg TID PO Last administered on 12/24/16 10:13; Start 12/14/16 at 13:00 Potassium Chloride (KCl) 40 meq ONCE ONCE PO Last administered on 12/16/16 11:45; Start 12/16/16 at 10:30; Stop 12/16/16 at 10:31; Status DC Potassium Chloride (KCl) 40 meq ONCE ONCE PO Last administered on 12/16/16 14:04; Start 12/16/16 at 13:00; Stop 12/16/16 at 13:01; Status DC Insulin Human Regular (NovoLIN R SUPPLEMENTAL SCALE) 1 ACHS SLIDING SCALE SQ Last administered on 12/23/16 21:00; Start 12/16/16 at 12:00 Amlodipine Besylate (Norvasc) 5 mg DAILY PO Last administered on 12/24/16 10: 15; Start 12/17/16 at 12:00 Insulin Detemir (Levemir Inj) 5 units Q12H SQ Last administered on 12/19/16 00:19; Start 12/17/16 at 12:00; Stop 12/19/16 at 10:29; Status DC Insulin Detemir (Levemir Inj) 10 units Q12H SQ Last administered on 12/20/16 12:00; Start 12/19/16 at 12:00; Stop 12/21/16 at 00:28; Status DC Insulin Detemir (Levemir Inj) 5 units ONCE ONCE SQ Last administered on 13:36; Start 12/19/16 at 11:15; Stop 12/19/16 at 11:16; Status DC Collagenase (Santyl Oint) 1 applic DAILY TOPICAL Last administered on 08:31; Start 12/19/16 at 14:45 Potassium Bicarb/ Potassium Chloride (K-Lyte Cl Eff) 25 meq ONCE ONCE PO Last administered on 12/20/16 10:00; Start 12/20/16 at 10:00; Stop 12/20/16 at 10:01; Status DC Insulin Detemir (Levemir Inj) 10 units BID SQ Last administered on 12/24/16 09:00; Start 12/21/16 at 09:00 Potassium Chloride (KCl) 20 meq Q4HR PO Last administered on 12/24/16 00:09; Start 12/23/16 at 12:00; Stop 12/24/16 at 00:01; Status DC Potassium Bicarb/ Potassium Chloride (K-Lyte Cl Eff) 50 meq ONCE ONCE PO Last administered on 12/23/16 13:45; Start 12/23/16 at 13:45; Stop 12/23/16 at 13:46; Status DC Date of Insertion: Nov 12, 2016 Line: Central Venous Catheter Side: Right Location: Internal, Jugular A/P Problem List: (1) Subdural hematoma ICD Code: I62.00 - Nontraumatic subdural hemorrhage, unspecified Status: Acute (2) Diabetes ICD Code: E11.9 - Type 2 diabetes mellitus without complications Status: Chronic (3) Leukocytosis ICD Code: D72.829 - Elevated white blood cell count, unspecified Status: Acute (4) HTN (hypertension) ICD Code: I10 - Essential (primary) hypertension Status: Chronic (5) Dysphagia ICD Code: R13.10 - Dysphagia, unspecified (6) Urinary tract infection ICD Code: N39.0 - Urinary tract infection, site not specified Assessment and Plan 80 y/o with a history of HTN, DM, and BPH presented to the ED after a fall at home, with a LOC for 10-15 mins. Closed head injury Subdural hematoma Bilateral intracranial hemorrhaging - Managed by neurosurgery and no indication for surgery. - Neuro checks, seizure precautions - Keppra and Cerebyx on hold. Metabolic encephalopathy-improving - head CT 12/01/16 showed Bilateral hypodense subdural hematomas are seen in the occipital region and along the tentorium cerebelli on the right as well as small right frontal subdural hematoma unchanged. The left frontal parenchymal bleed is decreased in density with a small amount of edema identified. There is atrophy and moderate confluent hypodense white matter disease in the periventricular regions. The right frontal and left insular bleeds are much less conspicuous with a small amount of residual high density in the right frontal region with a small amount of surrounding edema. There is no midline shift or mass effect. Vascular calcifications are noted. No fractures. Anemia - WBC 15.2 -->13.4 --> 16.4 --> 13.0->16 - Hematology following. Ordered other testing R/O other bone marrow abnormality. Follow results. - Blood cultures no growth in 5 days. DC Vanco as planned. - Continue to trend WBC. 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 Atrial fibrillation Hypertension - Continue with Lopressor 25mg BID, increase to TID for better rate control and BP control - Oral anticoagulation contraindicated secondary to intracranial bleed - Monitor BP Trend, HR Decubitus ulcer, DTI sacral area - Continue Santyl - Wound care following. Recommends mable thick coverage of Santyl ointment. 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 Diabetes mellitus - hemoglobin A1c 6.0 - ISS. Uncontrolled blood sugars, will continue sliding scale increased Levemir to 10 units BID. MONITOR BLOOD SUGARS Occlusive DVT in cephalic vein right upper extremity - Hematology consultation appreciated however oral anticoagulation contraindicated - Avoid IV access RUE Urinary tract infection - off Azactam 1 g IV every 12H - on Diflucan 100 mg by mouth daily 12/03/16 secondary to been culture positive for Jane, Stop 12/18/16 will follow Urinalysis and culture, he has Noriega cath high risk for reinfection. 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 HYPOKALEMIA WILL REPLACE Prophylaxis GI - lanosprazole DVT - SCD/pharmacological prophylaxis when okay with neurosurgery AM LABS Discussed with Patient and his Daughter in the room, Discharge Planning AWAIT SAFE PLACEMENT AND RETURN TO HIS [facility]ELAND IN [facility] Problem Qualifiers (1) HTN (hypertension): Qualified Codes: I10 - Essential (primary) hypertension Lawrence Deal DO Dec 24, 2016 11:45
[2016-12-24 11:48] LABS: NEUTROPHIL # MANUAL DIFF 0.8 TH/MM3 (1.8-7.7); POLYS (SEG NEUTROPHILS) 5 % (16-70); WBC DIFF SAMPLE 100
[2016-12-24 11:50] LABS: PLATELET ESTIMATE SMEAR HIGH (NORMAL); PLATELET MORPHOLOGY NORMAL (NORMAL); SCAN/DIFF FINAL DIFF MANUAL
[2016-12-24 12:00] VITALS: BP 130/82; PULSE 107; RESP 20; TEMP 97.7; O2SAT 98
[2016-12-24 20:33] VITALS: BP 141/79; PULSE 100; RESP 18; TEMP 98.5; O2SAT 98
[2016-12-24] MEDS: TAMSULOSIN HCL 0.4 MG CAP PO SCH (21:11)
[2016-12-25 00:16] VITALS: BP 132/100; PULSE 101; RESP 19; TEMP 99.1; O2SAT 98
[2016-12-25 04:30] VITALS: BP 158/79; PULSE 102; RESP 19; TEMP 97.9; O2SAT 96
[2016-12-25] MEDS: METOPROLOL TARTRATE 25 MG TAB PO SCH ×3 (06:30→22:00)
[2016-12-25] MEDS: levETIRAcetam 500 MG TAB PO SCH ×3 (06:30→21:01)
[2016-12-25] MEDS: CHLORHEXIDINE 0.12% (ORAL KIT) 15 ML CUP MT SCH ×2 (08:00→20:00)
[2016-12-25] MEDS: INSULIN NovoLIN REGULAR SUPPLEMENTAL SCALE SQ SCH ×4 (08:00→21:00)
[2016-12-25] MEDS: DOCUSATE SODIUM 100 MG/10 ML UDC PO SCH ×2 (08:58→21:02)
[2016-12-25] MEDS: TOLTERODINE TARTRATE 2 MG CAP LA PO SCH (08:58)
[2016-12-25] MEDS: POLYETHYLENE GLYCOL 17 GM PKG OG-TUBE SCH ×2 (08:58→21:02)
[2016-12-25] MEDS: MEGESTROL ACETATE SUSP 400 MG/10 ML CUP PO SCH (08:58)
[2016-12-25] MEDS: LANSOPRAZOLE SOLUTAB 30 MG TAB NG SCH (08:59)
[2016-12-25] MEDS: amLODIPine BESYLATE 5 MG TAB PO SCH (08:59)
[2016-12-25] MEDS: FINASTERIDE 5 MG TAB PO SCH (08:59)
[2016-12-25] MEDS: FUROSEMIDE 40 MG/4 ML VIAL IV PUSH SCH (08:59)
[2016-12-25] MEDS: PHENYTOIN SODIUM 100 MG CAP PO SCH ×3 (08:59→17:41)
[2016-12-25] MEDS: SODIUM CHLORIDE 0.9% FLUSH 10 ML FLUSH IVF SCH (09:00)
[2016-12-25] MEDS: SODIUM CHLORIDE 0.9% FLUSH 10 ML FLUSH IV FLUSH SCH ×2 (09:00→21:00)
[2016-12-25] MEDS: MUPIROCIN 2% CREAM 15 GM TOPICAL SCH ×2 (09:00→21:00)
[2016-12-25] MEDS: COLLAGENASE OINT 30 GM TUBE TOPICAL SCH ×2 (09:00)
[2016-12-25] MEDS: ARTIFICIAL TEARS OPTH SOLN 15 ML BTL EACH EYE SCH ×3 (09:00→18:00)
[2016-12-25] MEDS: INSULIN DETEMIR 100 UNITS/ML VIAL SQ SCH ×2 (09:00→21:00)
--- NOTE | 2016-12-25 09:30 | HHI.NSPN ---
(Brennon White) History Chief Complaint: Unable to obtain due to patient's clinical condition. (Brennon White) Interval History 12/07: Patient opens eyes to voice, smiles, questionable followed simple command left UE x one, not following commands other extremities. Not verbalizing. 12/13: Patient reported to be sleeping a little better at night. Still lethargic much of the day. According to family he is saying a few words and responds to questions, remains confused, following a few commands occasionally. 12/15: Patient extremely lethargic. No response to verbal stimulation but did withdraw upper extremities and open eyes to localised noxious stimulation. Slight moaning but no other response. 12/16: The patient is lethargic but less so today. He was noted to open his eyes and move both upper extremities spontaneously. He did respond to some commands weakly but did not verbalise. 12/19: This morning the patient is seen in rounds with Dr. Godfrey. The patient is awake and alert and did track with his eyes. 12/23: When seen this morning the patient's daughter is feeding him. He does spontaneously open his eyes and move the upper extremities. He does appear to track with the eyes. 12/24: The patient is awake this morning and moving the right upper extremity spontaneously. He is watching Nursing and his family as they move about in the room. The [id number] reports that the embassy is to call the hospital once everything is ready for the patient to be transferred back to [facility] or if they need any further information. She says her , the patient's son, spoke with the embassy yesterday. (Brennon White) System Review Comments Unable to obtain due to patient's clinical condition. (Brennon White) Exam Results 12/23/16 12/23/16 12/24/16 12/24/16 12/25/16 12/25/16 06:00 18:00 06:00 18:00 06:00 18:00 Intake Total 120 ml 60 ml Output Total 525 ml 425 ml 150 ml 150 ml 250 ml 150 ml Balance -525 ml -425 ml -150 ml -150 ml -130 ml -90 ml Intake Oral 120 ml 60 ml Output Urine Total 525 ml 425 ml 150 ml 150 ml 250 ml 150 ml # Bowel Movements 0 1 0 1 1 Vital Signs Date Time Temp Pulse Resp B/P (MAP) Pulse Ox O2 Delivery O2 Flow Rate FiO2 12/25/16 04:30 97.9 102 19 158/79 (105) 96 12/25/16 00:16 99.1 101 19 132/100 (111) 98 12/24/16 20:33 98.5 100 18 141/79 (99) 98 12/24/16 12:00 97.7 107 20 130/82 (98) 98 12/24/16 08:00 97.9 94 20 145/92 (109) 98 12/24/16 04:00 97.8 62 18 134/74 (94) 100 12/24/16 00:00 98.0 96 19 139/87 (104) 98 12/23/16 20:00 97.8 100 19 168/74 (105) 99 12/23/16 16:00 97.6 95 18 150/72 (98) 97 12/23/16 12:00 97.7 114 20 136/78 (97) 99 12/23/16 08:00 97.6 99 18 149/88 (108) 95 12/23/16 04:00 97.8 104 22 154/88 (110) 97 12/23/16 00:00 97.9 94 24 146/72 (96) 99 12/22/16 20:00 97.8 95 19 148/66 (93) 100 12/22/16 16:30 98.6 90 18 138/75 (96) 98 12/22/16 13:00 97.5 101 20 137/74 (95) 98 (Brennon White) Physical Examination GENERAL: Awake and alert. Looking about as Nursing and family move around in the room. No apparent distress SKIN: Warm, dry & intact. HEENT: Normocephalic, atraumatic. NECK: No JVD, trachea midline. CARDIOVASCULAR: S1S2 w/RRR w/o M/G/R, radial & pedal pulses 2+ bilaterally, cap refill < 2 sec, 1+ pedal edema. RESPIRATORY: Clear but decreased bilaterally w/o W/R/R, equal excursion, nonlaboured, on RA. GASTROINTESTINAL: Abdomen soft, nontender, bowel sounds not appreciated. MUSCULOSKELETAL: No evident deformity or clubbing. NEUROLOGICAL: Awake and alert. He did speak in short phrases. Follows simple commands. Facial motor movements appear symmetric. Moves all extremities with good strength. (Brennon White) Lab, Micro, Other Results Laboratory Tests Test 12/23/16 06:34 12/24/16 08:36 White Blood Count 13.5 TH/MM3 16.6 TH/MM3 Red Blood Count 4.15 MIL/MM3 4.25 MIL/MM3 Hemoglobin 12.0 GM/DL 12.4 GM/DL Hematocrit 36.4 % 37.6 % Mean Corpuscular Volume 87.6 FL 88.5 FL Mean Corpuscular Hemoglobin 28.9 PG 29.3 PG Mean Corpuscular Hemoglobin Concent 33.0 % 33.1 % Red Cell Distribution Width 19.3 % 18.8 % Platelet Count 425 TH/MM3 418 TH/MM3 Mean Platelet Volume 7.0 FL 7.7 FL CBC Comment AUTO DIFF AUTO DIFF Differential Total Cells Counted 100 100 Neutrophils % (Manual) 24 % 5 % Lymphocytes % 63 % 89 % Monocytes % 10 % 6 % Eosinophils % 3 % Neutrophils # (Manual) 3.2 TH/MM3 0.8 TH/MM3 Differential Comment FINAL DIFF MANUAL FINAL DIFF MANUAL Platelet Estimate NORMAL HIGH Platelet Morphology Comment NORMAL NORMAL Blood Urea Nitrogen 29 MG/DL 31 MG/DL Creatinine 0.52 MG/DL 0.68 MG/DL Random Glucose 128 MG/DL 78 MG/DL Total Protein 7.8 GM/DL 8.1 GM/DL Albumin 2.6 GM/DL 2.7 GM/DL Calcium Level 10.2 MG/DL 10.4 MG/DL Phosphorus Level 2.9 MG/DL 2.5 MG/DL Magnesium Level 2.0 MG/DL 2.1 MG/DL Alkaline Phosphatase 169 U/L 177 U/L Aspartate Amino Transf (AST/SGOT) 46 U/L 39 U/L Alanine Aminotransferase (ALT/SGPT) 50 U/L 48 U/L Total Bilirubin 0.7 MG/DL 0.7 MG/DL Sodium Level 141 MEQ/L 141 MEQ/L Potassium Level 3.1 MEQ/L 4.0 MEQ/L Chloride Level 104 MEQ/L 106 MEQ/L Carbon Dioxide Level 28.7 MEQ/L 29.0 MEQ/L Anion Gap 8 MEQ/L 6 MEQ/L Estimat Glomerular Filtration Rate 152 ML/MIN 111 ML/MIN Neutrophils (%) (Auto) 16.0 % Lymphocytes (%) (Auto) 75.3 % Monocytes (%) (Auto) 7.6 % Eosinophils (%) (Auto) 0.8 % Basophils (%) (Auto) 0.3 % Neutrophils # (Auto) 2.7 TH/MM3 Lymphocytes # (Auto) 12.5 TH/MM3 Monocytes # (Auto) 1.3 TH/MM3 Eosinophils # (Auto) 0.1 TH/MM3 Basophils # (Auto) 0.1 TH/MM3 (Brennon White) Medical Decision Making Impression and Plan Impression: 1. Traumatic brain injury 2. Respiratory failure, improved 3. Seizures 4. Jane UTI, resolved 5. Occlusive DVT to right cephalic & basilic veins 6. Leukocytosis 7. Sacral decubitus 8. Atrial fibrillation 9. Hypertension 10. Diabetes Patient awake, more interactive today. T-cell lymphoproliferative disorder per Haematology/Oncology, at present feel patient is not a candidate for treatment. Plan: Medical management per Hospitalist. No active issues for Neurosurgery. Awaiting clearance for medical transport back to [facility]. Appreciate Hospitalist, Palliative Care & Haematology/Oncology input. (Brennon White) Attending Statement I have personally seen and examined the patient on the date of this note. Pertinent documentation and study results have been reviewed by the undersigned. I have personally developed the treatment plan and performed medical decision making. Agree with findings, exam, and treatment plan as noted above. Patient initially not very alert this morning, but upon follow-up examination is relatively awake, trying to converse. Moves all extremities Patient status discussed with family in the room today. No significant change in neurologic exam over the past week. Continuing efforts for transfer back home. (Tony Godfrey MD) Brennon White Dec 25, 2016 09:30 Tony Godfrey MD Dec 25, 2016 17:46
[2016-12-25 10:20] VITALS: BP 134/79; PULSE 100; RESP 20; TEMP 98.2; O2SAT 98
[2016-12-25 12:16] VITALS: BP 142/82; PULSE 101; RESP 20; TEMP 97.6; O2SAT 98
[2016-12-25 16:03] VITALS: BP 129/69; PULSE 94; RESP 20; TEMP 98.3; O2SAT 97
--- NOTE | 2016-12-25 19:23 | HHI.PR ---
Subjective Remarks no major overnight events patient is nonverbal. afebrile w stable vital signs Objective Vitals Vital Signs Date Time Temp Pulse Resp B/P (MAP) Pulse Ox O2 Delivery O2 Flow Rate FiO2 12/25/16 16:03 98.3 94 20 129/69 (89) 97 12/25/16 12:16 97.6 101 20 142/82 (102) 98 12/25/16 10:20 98.2 100 20 134/79 (97) 98 12/25/16 04:30 97.9 102 19 158/79 (105) 96 12/25/16 00:16 99.1 101 19 132/100 (111) 98 12/24/16 20:33 98.5 100 18 141/79 (99) 98 I/O 12/24/16 12/24/16 12/24/16 12/25/16 12/25/16 12/25/16 07:00 15:00 23:00 07:00 15:00 23:00 Intake Total 120 ml 60 ml 600 ml Output Total 150 ml 250 ml 150 ml 450 ml Balance -150 ml -130 ml -90 ml 150 ml Intake Oral 120 ml 60 ml 600 ml Output Urine Total 150 ml 250 ml 150 ml 450 ml # Bowel Movements 1 1 2 Result Diagram: 12/24/16 0836 12/24/1636 Imaging Last Impressions Brain MRI 12/13/16 0000 Signed Impressions: Service Date/Time: Tuesday, December 13, 2016 12:20 - CONCLUSION: 1. The examination demonstrates multiple small areas of intraparenchymal and extra-axial hemorrhage as described above. These areas are more apparent on the patient's MRI examination than on the CT. Direct comparison is made. The areas of edema and hemorrhage appear similar though they are isointense on the CT. 2. 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 There is cortical atrophy. Anthony Burns MD Chest X-Ray 12/04/16 0000 Signed Impressions: Service Date/Time: November 11:58 - CONCLUSION: Improving aeration. Lonnie Blanchard MD Upper Extremity Ultrasound 12/02/16 0000 Signed Impressions: Service Date/Time: Saturday, December 03, 2016 00:53 - CONCLUSION: 1. Occlusive DVT in the cephalic and basilic vein on the right. Alex Goode MD Head CT 12/01/16 0000 Signed Impressions: Service Date/Time: Thursday, December 01, 2016 13:14 - CONCLUSION: Evolving intracranial hemorrhagic foci as above, both intra-axial and extra-axial. Jesus Lee MD Modified Barium Swallow 11/30/16 0000 Signed Impressions: Service Date/Time: Wednesday, November 30, 2016 00:00 - CONCLUSION: Please refer to speech pathology report for full details. Lonnie Cook MD Transcranial Doppler Study Complete 11/17/16 0000 Signed Impressions: Service Date/Time: Thursday, November 17, 2016 10:03 - CONCLUSION: 1. Nondiagnostic examination due to poor transcranial windows. Konstantin Dash MD Abdomen X-Ray 11/12/16 0000 Signed Impressions: Service Date/Time: Saturday, November 12, 2016 08:23 - CONCLUSION: 1. Gastric tube in good position. 2. Probable right renal stones. Narayan Coulter MD Cervical Spine CT 11/09/161950 Signed Impressions: Service Date/Time: Wednesday, November 09, 2016 20:14 - CONCLUSION: Negative trauma CT. Cj Isidro MD Objective Remarks Patient awake and alert Non verbal Clear lungs BL Awake and alert. No obvious cranial nerve deficits. Motor grossly within normal limits. 4 out of 5 muscle strength in the arms and legs. abnormal insight and judgement. Medications and IVs Current Medications Medications (Trade) Dose Ordered Sig/Gregg Route Start Time Stop Time Status Last Admin (Proscar) 5 mg DAILY PO 11/10/16 09:00 12/25/16 08:59 (Flomax) 0.4 mg HS PO 11/10/16 21:00 12/25/16 21:02 (Detrol La) 2 mg DAILY PO 11/10/16 09:00 12/25/16 08:58 (Glucagon Inj) 1 mg UNSCH PRN OTHER 11/09/16 23:45 11/24/16 03:48 (Ativan Inj) 1 mg Q5M PRN IV 11/12/16 00:45 11/12/16 01:45 (Peridex 0.12% Liq) 15 ml BID@08,20 MT 11/12/16 08:00 12/24/16 20:00 (NS Flush) DAILY IVF 11/12/16 09:00 12/23/16 09:00 (NS Flush) UNSCH PRN IVF 11/12/16 08:15 (Prevacid Odt) 30 mg DAILY NG 11/12/16 09:00 12/25/16 08:59 (Colace Liq) 100 mg Q12HR PO 11/12/16 09:00 12/25/16 21:02 (NS Flush) 2 ml UNSCH PRN IV FLUSH 11/12/16 08:30 (NS Flush) 2 ml BID IV FLUSH 11/12/16 09:00 12/25/16 21:00 (Tears Naturale Opth Soln) 1 drop TID EACH EYE 11/12/16 09:00 12/25/16 18:00 (Zofran Inj) 4 mg Q6H PRN IV 11/12/16 08:30 11/15/16 05:45 (Albuterol Neb) 2.5 mg Q2HR NEB PRN INH 11/12/16 08:30 11/29/16 21:19 (Dulcolax Supp) 10 mg DAILY PRN RECTAL 11/12/16 08:30 (Tylenol 650 Mg/ 20 ml Liq) 650 mg Q6H PRN NG 11/12/16 08:45 12/20/16 02:14 Levetriacetam 100 ml @ 400 mls/hr Q8HR IV 11/12/16 22:00 Future Hold 11/30/16 05:35 (Miralax) 17 gm BID OG-TUBE 11/13/16 21:00 12/25/16 21:02 (Lactulose Liq) 30 ml DAILY PO 11/14/16 09:00 Future Hold 12/02/16 09:54 (Glycerin Adult Supp) 2 gm BID PRN RECTAL 11/13/16 15:00 (Apresoline Inj) 20 mg Q4H PRN IV PUSH 11/14/16 02:15 11/14/16 03:07 Fosphenytoin Sodium 100 mgpe/ Sodium Chloride 52 ml @ 208 mls/hr Q6HR IV 11/18/16 13:00 Future Hold 11/30/16 13:10 (Brethine Inj) 1 mg UNSCH PRN SQ 11/20/16 16:30 (Lasix Inj) 40 mg DAILY IV PUSH 11/22/16 11:00 12/25/16 08:59 (D50w (Syr) Inj) 50 ml UNSCH PRN IV 11/25/16 09:30 11/25/16 09:46 (Megace Liq) 400 mg DAILY PO 11/26/16 09:00 12/25/16 08:58 (Keppra) 1,000 mg Q8HR PO 11/30/16 22:00 12/25/16 21:01 (Bactroban 2% Cream) 1 applic Q12HR TOPICAL 12/02/16 21:00 12/25/16 21:00 (Santyl Oint) 1 applic DAILY TOPICAL 12/04/16 12:00 12/25/16 09:00 (Levsin) 0.125 mg Q4H PRN PO 12/04/16 11:30 (Heparin Central Flush) 200 units DAILY IV FLUSH 12/05/16 12:00 12/23/16 09:00 (Tylenol 160 Mg/ 5 ml Liq) 650 mg Q4H PRN PO 12/11/16 11:00 12/14/16 02:33 (Lopressor) 25 mg Q8HR PO 12/13/16 00:45 12/25/16 22:00 (Dilantin) 100 mg TID PO 12/14/16 13:00 12/25/16 17:41 (NovoLIN R SUPPLEMENTAL SCALE) 1 ACHS SLIDING SCALE SQ 12/16/16 12:00 12/25/16 21:00 (Norvasc) 5 mg DAILY PO 12/17/16 12:00 12/25/16 08:59 (Santyl Oint) 1 applic DAILY TOPICAL 12/19/16 14:45 12/24/16 09:00 (Levemir Inj) 10 units BID SQ 12/21/16 09:00 12/25/16 21:00 Date of Insertion: Nov 12, 2016 Line: Central Venous Catheter Side: Right Location: Internal, Jugular A/P Problem List: (1) Subdural hematoma ICD Code: I62.00 - Nontraumatic subdural hemorrhage, unspecified Status: Acute (2) Diabetes ICD Code: E11.9 - Type 2 diabetes mellitus without complications Status: Chronic (3) Leukocytosis ICD Code: D72.829 - Elevated white blood cell count, unspecified Status: Acute (4) HTN (hypertension) ICD Code: I10 - Essential (primary) hypertension Status: Chronic (5) Dysphagia ICD Code: R13.10 - Dysphagia, unspecified (6) Urinary tract infection ICD Code: N39.0 - Urinary tract infection, site not specified Assessment and Plan 80 y/o with a history of HTN, DM, and BPH presented to the ED after a fall at home, with a LOC for 10-15 mins. Closed head injury Subdural hematoma Bilateral intracranial hemorrhaging - Managed by neurosurgery and no indication for surgery. - Neuro checks, seizure precautions - Keppra and Cerebyx on hold. Metabolic encephalopathy-improving - head CT 12/01/16 showed Bilateral hypodense subdural hematomas are seen in the occipital region and along the tentorium cerebelli on the right as well as small right frontal subdural hematoma unchanged. The left frontal parenchymal bleed is decreased in density with a small amount of edema identified. There is atrophy and moderate confluent hypodense white matter disease in the periventricular regions. The right frontal and left insular bleeds are much less conspicuous with a small amount of residual high density in the right frontal region with a small amount of surrounding edema. There is no midline shift or mass effect. Vascular calcifications are noted. No fractures. Anemia - WBC 15.2 -->13.4 --> 16.4 --> 13.0->16 - Hematology following. Ordered other testing R/O other bone marrow abnormality. Follow results. - Blood cultures no growth in 5 days. DC Vanco as planned. - Continue to trend WBC. 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 Atrial fibrillation Hypertension - Continue with Lopressor 25mg BID, increase to TID for better rate control and BP control - Oral anticoagulation contraindicated secondary to intracranial bleed - Monitor BP Trend, HR Decubitus ulcer, DTI sacral area - Continue Santyl - Wound care following. Recommends mable thick coverage of Santyl ointment. 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 Diabetes mellitus - hemoglobin A1c 6.0 - ISS. Uncontrolled blood sugars, will continue sliding scale increased Levemir to 10 units BID. MONITOR BLOOD SUGARS Occlusive DVT in cephalic vein right upper extremity - Hematology consultation appreciated however oral anticoagulation contraindicated - Avoid IV access RUE Urinary tract infection - off Azactam 1 g IV every 12H - on Diflucan 100 mg by mouth daily 12/03/16 secondary to been culture positive for Jane, Stop 12/18/16 will follow Urinalysis and culture, he has Noriega cath high risk for reinfection. 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 Prophylaxis GI - lanosprazole DVT - SCD/pharmacological prophylaxis when okay with neurosurgery Problem Qualifiers (1) HTN (hypertension): Qualified Codes: I10 - Essential (primary) hypertension Carlos Mc MD Dec 25, 2016 19:23
[2016-12-25 20:37] VITALS: BP 159/80; PULSE 100; RESP 17; TEMP 97.6; O2SAT 97
[2016-12-25] MEDS: TAMSULOSIN HCL 0.4 MG CAP PO SCH (21:02)
[2016-12-26 00:29] VITALS: BP 137/58; PULSE 92; RESP 18; TEMP 98.4; O2SAT 97
[2016-12-26 04:54] VITALS: BP 147/83; PULSE 103; RESP 18; TEMP 98.6; O2SAT 96
[2016-12-26] MEDS: levETIRAcetam 500 MG TAB PO SCH ×3 (05:59→21:08)
[2016-12-26] MEDS: METOPROLOL TARTRATE 25 MG TAB PO SCH ×3 (05:59→21:08)
[2016-12-26] MEDS: CHLORHEXIDINE 0.12% (ORAL KIT) 15 ML CUP MT SCH ×2 (08:00→20:00)
[2016-12-26] MEDS: INSULIN NovoLIN REGULAR SUPPLEMENTAL SCALE SQ SCH ×4 (08:00→21:00)
[2016-12-26 08:30] VITALS: BP 135/87; PULSE 104; RESP 17; TEMP 98.1; O2SAT 96
[2016-12-26] MEDS: SODIUM CHLORIDE 0.9% FLUSH 10 ML FLUSH IVF SCH (09:00)
[2016-12-26] MEDS: COLLAGENASE OINT 30 GM TUBE TOPICAL SCH ×2 (09:00)
[2016-12-26] MEDS: DOCUSATE SODIUM 100 MG/10 ML UDC PO SCH ×2 (09:00→21:08)
[2016-12-26] MEDS: ARTIFICIAL TEARS OPTH SOLN 15 ML BTL EACH EYE SCH ×3 (09:00→18:00)
[2016-12-26] MEDS: INSULIN DETEMIR 100 UNITS/ML VIAL SQ SCH ×2 (09:00→21:00)
[2016-12-26] MEDS: SODIUM CHLORIDE 0.9% FLUSH 10 ML FLUSH IV FLUSH SCH ×2 (09:00→21:00)
[2016-12-26] MEDS: POLYETHYLENE GLYCOL 17 GM PKG OG-TUBE SCH ×2 (09:00→21:08)
[2016-12-26] MEDS: PHENYTOIN SODIUM 100 MG CAP PO SCH ×3 (09:40→18:07)
[2016-12-26] MEDS: FUROSEMIDE 40 MG/4 ML VIAL IV PUSH SCH (09:41)
[2016-12-26] MEDS: LANSOPRAZOLE SOLUTAB 30 MG TAB NG SCH (09:42)
[2016-12-26] MEDS: amLODIPine BESYLATE 5 MG TAB PO SCH (09:42)
[2016-12-26] MEDS: TOLTERODINE TARTRATE 2 MG CAP LA PO SCH (09:42)
[2016-12-26] MEDS: FINASTERIDE 5 MG TAB PO SCH (09:43)
[2016-12-26] MEDS: MEGESTROL ACETATE SUSP 400 MG/10 ML CUP PO SCH (09:43)
[2016-12-26] MEDS: MUPIROCIN 2% CREAM 15 GM TOPICAL SCH ×2 (09:46→21:00)
--- NOTE | 2016-12-26 09:52 | HHI.NSPN ---
History Chief Complaint: Unable to obtain due to patient's clinical condition. Interval History No new problems reported by the family. Remains a little lethargic this morning. Mental status has been fluctuating according to family. Exam Results Vital Signs Date Time Temp Pulse Resp B/P (MAP) Pulse Ox O2 Delivery O2 Flow Rate FiO2 12/26/16 08:30 98.1 104 17 135/87 (103) 96 Intake and Output 12/26/16 12/26/16 12/27/16 08:00 16:00 00:00 Intake Total 120 ml Output Total 150 ml Balance -30 ml Physical Examination GENERAL: Mild to moderate lethargy. SKIN: Warm, dry & intact. HEENT: Normocephalic, atraumatic. NECK: No JVD, trachea midline. CARDIOVASCULAR: S1S2 w/RRR w/o M/G/R, radial & pedal pulses 2+ bilaterally, cap refill < 2 sec, 1+ pedal edema. RESPIRATORY: Clear but decreased bilaterally w/o W/R/R, equal excursion, nonlaboured, on RA. GASTROINTESTINAL: Abdomen soft, nontender, bowel sounds not appreciated. MUSCULOSKELETAL: No evident deformity or clubbing. NEUROLOGICAL: Mild to moderate lethargy. Arouses easily to voice Says one or 2 words intermittent Follows simple commands. Facial motor movements appear symmetric. Moves all extremities with good strength. Medical Decision Making Impression and Plan Impression/plan: 1. Traumatic brain injury. Most recent CT scan stable with resolving contusions, stable mild to moderate subdural fluid collections without significant mass effect. Mental status fluctuating throughout the day but overall stable over the past week. 2. UTI. Initial treatment completed. Follow-up urine culture negative thus far. 3. Hypertension, atrial fibrillation. Remains on Lopressor. 3. Recent seizures. He remains on Keppra and Dilantin. Dilantin level today satisfactory 4. Sacral decubitus ulcer. Continuing decubitus precautions, wound care, Santyl 5. Leukocytosis. Hematology following-workup in progress 6. Diabetes. Remains on insulin sliding scale. 7. Respiratory insufficiency. Improving. Most recent chest x-ray improved. Weaning off oxygen. Family is continuing efforts to have the patient transferred back to [facility]. Patient's family states that they are waiting word from the embassy regarding transportation Tony Godfrey MD Dec 26, 2016 09:52
--- NOTE | 2016-12-26 11:43 | HHI.PR ---
Subjective Remarks Follow up visit SDH, UE DVT, HTN, DM2. Patient seen and examined today. Patient is laying in bed. Continues to be drowsy and lethargic. Eyes opening to name call and tactile stimulation. Daughter at the bedside. Patient appears to be comfortable. As per daughter, patient continues to have on and off slowly at night and in the daytime. States that he has been eating better. No acute issues overnight. Objective Vitals Vital Signs Date Time Temp Pulse Resp B/P (MAP) Pulse Ox O2 Delivery O2 Flow Rate FiO2 12/26/16 08:30 98.1 104 17 135/87 (103) 96 12/26/16 04:54 98.6 103 18 147/83 (104) 96 12/26/16 00:29 98.4 92 18 137/58 (84) 97 12/25/16 20:37 97.6 100 17 159/80 (106) 97 12/25/16 16:03 98.3 94 20 129/69 (89) 97 12/25/16 12:16 97.6 101 20 142/82 (102) 98 I/O 12/25/16 12/25/16 12/25/16 12/26/16 12/26/16 12/26/16 07:00 15:00 23:00 07:00 15:00 23:00 Intake Total 60 ml 600 ml 120 ml 120 ml Output Total 150 ml 450 ml 200 ml 150 ml Balance -90 ml 150 ml -80 ml -30 ml Intake Oral 60 ml 600 ml 120 ml 120 ml Output Urine Total 150 ml 450 ml 200 ml 150 ml # Bowel Movements 2 1 Result Diagram: 12/24/1636 12/24/1636 Imaging Last Impressions Brain MRI 12/13/16 0000 Signed Impressions: Service Date/Time: Tuesday, December 13, 2016 12:20 - CONCLUSION: 1. The examination demonstrates multiple small areas of intraparenchymal and extra-axial hemorrhage as described above. These areas are more apparent on the patient's MRI examination than on the CT. Direct comparison is made. The areas of edema and hemorrhage appear similar though they are isointense on the CT. 2. 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 There is cortical atrophy. Anthony Burns MD Chest X-Ray 12/04/16 0000 Signed Impressions: Service Date/Time: November 11:58 - CONCLUSION: Improving aeration. Lonnie Blanchard MD Upper Extremity Ultrasound 12/02/16 0000 Signed Impressions: Service Date/Time: Saturday, December 03, 2016 00:53 - CONCLUSION: 1. Occlusive DVT in the cephalic and basilic vein on the right. Alex Goode MD Head CT 12/01/16 0000 Signed Impressions: Service Date/Time: Thursday, December 01, 2016 13:14 - CONCLUSION: Evolving intracranial hemorrhagic foci as above, both intra-axial and extra-axial. Jesus Lee MD Modified Barium Swallow 11/30/16 Signed Impressions: Service Date/Time: Wednesday, November 30, 2016 00:00 - CONCLUSION: Please refer to speech pathology report for full details. Lonnie Cook MD Transcranial Doppler Study Complete 11/17/16 Signed Impressions: Service Date/Time: Thursday, November 17, 2016 10:03 - CONCLUSION: 1. Nondiagnostic examination due to poor transcranial windows. Konstantin Dash MD Abdomen X-Ray 11/12/16 Signed Impressions: Service Date/Time: Saturday, November 12, 2016 08:23 - CONCLUSION: 1. Gastric tube in good position. 2. Probable right renal stones. Narayan Coulter MD Cervical Spine CT 11/09/161950 Signed Impressions: Service Date/Time: Wednesday, November 09, 2016 20:14 - CONCLUSION: Negative trauma CT. Cj Isidro MD Objective Remarks GENERAL: This is a thin-appearing, well-developed patient, in no apparent distress. SKIN: Warm and dry. HEENT: Nose without bleeding. Airway patent. NECK: Trachea midline. Supple. CARDIOVASCULAR: Heart rate irregular, rate wnl without murmurs, gallops, or rubs. RESPIRATORY: Coarse breath sounds BUL. No wheezes, rales, or rhonchi. GASTROINTESTINAL: Abdomen soft, non-tender, nondistended. Bowel Sounds normoactive x4. MUSCULOSKELETAL: Extremities without clubbing, cyanosis, bilateral lower extremity trace edema. NEUROLOGICAL: Drowsy. Moves all extremities weakly. Date of Insertion: Nov 12, 2016 Line: Central Venous Catheter Side: Right Location: Internal, Jugular A/P Problem List: (1) Subdural hematoma ICD Code: I62.00 - Nontraumatic subdural hemorrhage, unspecified Status: Acute (2) Diabetes ICD Code: E11.9 - Type 2 diabetes mellitus without complications Status: Chronic (3) Leukocytosis ICD Code: D72.829 - Elevated white blood cell count, unspecified Status: Acute (4) HTN (hypertension) ICD Code: I10 - Essential (primary) hypertension Status: Chronic (5) Dysphagia ICD Code: R13.10 - Dysphagia, unspecified (6) Urinary tract infection ICD Code: N39.0 - Urinary tract infection, site not specified Assessment and Plan 80 y/o with a history of HTN, DM, and BPH presented to the ED after a fall at home, with a LOC for 10-15 mins. Closed head injury Subdural hematoma Bilateral intracranial hemorrhaging - Managed by neurosurgery and no indication for surgery at this time - Neuro checks, seizure precautions - Continue with Keppra and Dilantin by mouth; monitor level - Lethargic in am. Metabolic encephalopathy - head CT 12/01/16 showed Bilateral hypodense subdural hematomas are seen in the occipital region and along the tentorium cerebelli on the right as well as small right frontal subdural hematoma unchanged. The left frontal parenchymal bleed is decreased in density with a small amount of edema identified. There is atrophy and moderate confluent hypodense white matter disease in the periventricular regions. The right frontal and left insular bleeds are much less conspicuous with a small amount of residual high density in the right frontal region with a small amount of surrounding edema. There is no midline shift or mass effect. Vascular calcifications are noted. No fractures. - CXR with improving aeration - Continue neurochecks - Ammonia level within normal. ABG without any changes. - Repeat brain MRI 12/13/16 showed 1. Examination demonstrates multiple small areas of intraparenchymal and extra ache she'll hemorrhage as described above he Sears are more apparent on the patient's MRI examination done on the CT. Direct comparison is made. The areas of edema and hemorrhage appears similar though they are isointense on the CT. 2. 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 There is cortical atrophy. - Patient remains lethargic on and off. Leukocytosis Anemia - Hematology following. Ordered other testing R/O other bone marrow abnormality. Follow results. - Blood cultures no growth in 5 days. Off antibiotics. 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 Respiratory insufficiency - Chest x-ray with improvement in aeration - Continue CPT - Schedule and DuoNeb when necessary and maintain oxygen saturation above 92% - Improving aeration with CXR - Wean off O2 nc Atrial fibrillation Hypertension - Continue with Lopressor 25mg BID, increase to TID for better rate control and BP control - Oral anticoagulation contraindicated secondary to intracranial bleed - Monitor BP Trend, HR Decubitus ulcer, DTI sacral area - Continue Santyl - Wound care following. Recommends mable thick coverage of santyl ointment to wound bed on sacral area and cover with Slightly moistened Maxorb II ( Calcium alginate) dressing. Cover with ABD pad secured with tape or cover with bordered gauze. 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 Monitor accucheck Occlusive DVT in cephalic vein right upper extremity - Hematology consultation appreciated however oral anticoagulation contraindicated - Avoid IV access RUE Dysphagia secondary to intracranial hemorrhage - Barium swallow study normal - Reassess by speech for swallowing evaluation. Recommends pure diet, nectar thickened consistency liquids. - Aspiration precaution Generalized weakness, prolonged hospitalization - Has not been OOB to chair. - Attempts by PT unsuccessful because he is drowsy in AM. Waking hours at night, improving - Encourage family to do ROM exercises with patient while in bed. Needs to be aggressive with increase activity, OOB-chair, if patient has pain, to be addressed with pain medication -tylenol. Discuss with family members that pain should not deter him to increase his activities or being OOB to chair. - Encourage activities in the morning so that patient can sleep during the night. Urinary tract infection, resolved - off antibiotics - Plan for voiding trial when more awake and active. Prophylaxis GI - lanosprazole DVT - SCD/pharmacological prophylaxis when okay with neurosurgery Discuss with patient, nursing, Dr. Hoang Discharge Planning CM daughter at the bedside. States that [facility] will contact the hospital when they are ready for patient transfer. Plan for patient to go back to [facility]. Pending Medicaid application. CM following. Difficult SNF placement. Transfer to [facility] when bed is available. Problem Qualifiers (1) HTN (hypertension): Qualified Codes: I10 - Essential (primary) hypertension Veronica Coley Dec 26, 2016 11:43
[2016-12-26 12:12] VITALS: BP 119/64; PULSE 104; RESP 20; TEMP 97.9; O2SAT 95
[2016-12-26 16:01] VITALS: BP 136/75; PULSE 93; RESP 20; TEMP 97.9; O2SAT 98
[2016-12-26 20:46] VITALS: BP 144/76; RESP 20; TEMP 97.6; O2SAT 99
[2016-12-26] MEDS: TAMSULOSIN HCL 0.4 MG CAP PO SCH (21:08)
[2016-12-27 01:00] VITALS: BP 155/89; PULSE 98; RESP 24; TEMP 97.4; O2SAT 98
[2016-12-27 05:11] VITALS: BP 149/86; PULSE 110; RESP 24; TEMP 97.2; O2SAT 99
[2016-12-27] MEDS: levETIRAcetam 500 MG TAB PO SCH ×3 (06:39→21:00)
[2016-12-27] MEDS: METOPROLOL TARTRATE 25 MG TAB PO SCH ×3 (06:39→21:00)
[2016-12-27 08:00] VITALS: BP 154/92; PULSE 107; RESP 18; TEMP 98.1; O2SAT 98
[2016-12-27] MEDS: INSULIN NovoLIN REGULAR SUPPLEMENTAL SCALE SQ SCH ×4 (08:00→20:55)
[2016-12-27] MEDS: CHLORHEXIDINE 0.12% (ORAL KIT) 15 ML CUP MT SCH ×2 (08:00→20:00)
[2016-12-27] MEDS: DOCUSATE SODIUM 100 MG/10 ML UDC PO SCH ×2 (09:00→20:55)
[2016-12-27] MEDS: POLYETHYLENE GLYCOL 17 GM PKG OG-TUBE SCH ×2 (09:00→20:54)
[2016-12-27] MEDS: INSULIN DETEMIR 100 UNITS/ML VIAL SQ SCH ×2 (09:00→20:57)
[2016-12-27] MEDS: ARTIFICIAL TEARS OPTH SOLN 15 ML BTL EACH EYE SCH ×3 (09:00→17:53)
[2016-12-27] MEDS: SODIUM CHLORIDE 0.9% FLUSH 10 ML FLUSH IV FLUSH SCH ×2 (09:00→20:55)
[2016-12-27] MEDS: SODIUM CHLORIDE 0.9% FLUSH 10 ML FLUSH IVF SCH (09:00)
[2016-12-27] MEDS: COLLAGENASE OINT 30 GM TUBE TOPICAL SCH ×2 (09:00→10:06)
--- NOTE | 2016-12-27 09:43 | HHI.PR ---
Subjective Remarks Follow up visit SDH, UE DVT, HTN, DM2. Patient seen and examined today. Patient is laying in bed. Continues to be drowsy and lethargic. Nonverbal. Eyes opening to name call and tactile stimulation. Daughter at the bedside. Spoke with nurse, no acute issues overnight. Objective Vitals Vital Signs Date Time Temp Pulse Resp B/P (MAP) Pulse Ox O2 Delivery O2 Flow Rate FiO2 12/27/16 08:00 98.1 107 18 154/92 (112) 98 12/27/16 05:11 97.2 110 24 149/86 (107) 99 12/27/16 01:00 97.4 98 24 155/89 (111) 98 12/26/16 20:46 97.6 20 144/76 (98) 99 12/26/16 16:01 97.9 93 20 136/75 (95) 98 12/26/16 12:12 97.9 104 20 119/64 (82) 95 I/O 12/26/16 12/26/16 12/26/16 12/27/16 12/27/16 12/27/16 07:00 15:00 23:00 07:00 15:00 23:00 Intake Total 120 ml Output Total 150 ml 700 ml 201 ml Balance -30 ml -700 ml -201 ml Intake Oral 120 ml Output Urine Total 150 ml 700 ml 200 ml Stool Total 1 ml # Bowel Movements 1 1 1 Result Diagram: 12/24/1636 12/24/1636 Imaging Last Impressions Brain MRI 12/13/16 0000 Signed Impressions: Service Date/Time: Tuesday, December 13, 2016 12:20 - CONCLUSION: 1. The examination demonstrates multiple small areas of intraparenchymal and extra-axial hemorrhage as described above. These areas are more apparent on the patient's MRI examination than on the CT. Direct comparison is made. The areas of edema and hemorrhage appear similar though they are isointense on the CT. 2. 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 There is cortical atrophy. Anthony Burns MD Chest X-Ray 12/04/16 0000 Signed Impressions: Service Date/Time: November 11:58 - CONCLUSION: Improving aeration. Lonnie Blanchard MD Upper Extremity Ultrasound 12/02/16 0000 Signed Impressions: Service Date/Time: Saturday, December 03, 2016 00:53 - CONCLUSION: 1. Occlusive DVT in the cephalic and basilic vein on the right. Alex Goode MD Head CT 12/01/16 0000 Signed Impressions: Service Date/Time: Thursday, December 01, 2016 13:14 - CONCLUSION: Evolving intracranial hemorrhagic foci as above, both intra-axial and extra-axial. Jesus Lee MD Modified Barium Swallow 11/30/16 0000 Signed Impressions: Service Date/Time: Wednesday, November 30, 2016 00:00 - CONCLUSION: Please refer to speech pathology report for full details. Lonnie Cook MD Transcranial Doppler Study Complete 11/17/16 0000 Signed Impressions: Service Date/Time: Thursday, November 17, 2016 10:03 - CONCLUSION: 1. Nondiagnostic examination due to poor transcranial windows. Konstantin Dash MD Abdomen X-Ray 11/12/16 0000 Signed Impressions: Service Date/Time: Saturday, November 12, 2016 08:23 - CONCLUSION: 1. Gastric tube in good position. 2. Probable right renal stones. Narayan Coulter MD Cervical Spine CT 11/09/161950 Signed Impressions: Service Date/Time: Wednesday, November 09, 2016 20:14 - CONCLUSION: Negative trauma CT. Cj Isidro MD Objective Remarks GENERAL: This is a thin-appearing, well-developed patient, in no apparent distress. SKIN: Warm and dry. HEENT: Nose without bleeding. Airway patent. NECK: Trachea midline. Supple. CARDIOVASCULAR: Heart rate irregular, rate wnl without murmurs, gallops, or rubs. RESPIRATORY: Diminished bases. No wheezes, rales, or rhonchi. GASTROINTESTINAL: Abdomen soft, non-tender, nondistended. Bowel Sounds normoactive x4. Noriega draining urine with slightly cloudy, yellow. MUSCULOSKELETAL: Extremities without clubbing, cyanosis, bilateral lower extremity trace edema. NEUROLOGICAL: Lethargic/ Drowsy. Moves all extremities weakly. Date of Insertion: Nov 12, 2016 Line: Central Venous Catheter Side: Right Location: Internal, Jugular A/P Problem List: (1) Subdural hematoma ICD Code: I62.00 - Nontraumatic subdural hemorrhage, unspecified Status: Acute (2) Diabetes ICD Code: E11.9 - Type 2 diabetes mellitus without complications Status: Chronic (3) Leukocytosis ICD Code: D72.829 - Elevated white blood cell count, unspecified Status: Acute (4) HTN (hypertension) ICD Code: I10 - Essential (primary) hypertension Status: Chronic (5) Dysphagia ICD Code: R13.10 - Dysphagia, unspecified (6) Urinary tract infection ICD Code: N39.0 - Urinary tract infection, site not specified Assessment and Plan 80 y/o with a history of HTN, DM, and BPH presented to the ED after a fall at home, with a LOC for 10-15 mins. Closed head injury Subdural hematoma Bilateral intracranial hemorrhaging - Managed by neurosurgery and no indication for surgery at this time - Neuro checks, seizure precautions - Continue with Keppra and Dilantin by mouth; monitor level - Lethargic in am. Metabolic encephalopathy - head CT 12/01/16 showed Bilateral hypodense subdural hematomas are seen in the occipital region and along the tentorium cerebelli on the right as well as small right frontal subdural hematoma unchanged. The left frontal parenchymal bleed is decreased in density with a small amount of edema identified. There is atrophy and moderate confluent hypodense white matter disease in the periventricular regions. The right frontal and left insular bleeds are much less conspicuous with a small amount of residual high density in the right frontal region with a small amount of surrounding edema. There is no midline shift or mass effect. Vascular calcifications are noted. No fractures. - CXR with improving aeration - Continue neurochecks - Ammonia level within normal. ABG without any changes. - Repeat brain MRI 12/13/16 showed 1. Examination demonstrates multiple small areas of intraparenchymal and extra ache she'll hemorrhage as described above he Sears are more apparent on the patient's MRI examination done on the CT. Direct comparison is made. The areas of edema and hemorrhage appears similar though they are isointense on the CT. 2. 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 There is cortical atrophy. - Patient remains lethargic on and off. Leukocytosis Anemia - Hematology following. Ordered other testing R/O other bone marrow abnormality. Follow results. - Blood cultures no growth in 5 days. Off antibiotics. 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 - Avoid unnecessary blood draws Respiratory insufficiency - Chest x-ray with improvement in aeration - Continue CPT - Schedule and DuoNeb when necessary and maintain oxygen saturation above 92% - Improving aeration with CXR - Off NC, tolerating RA Atrial fibrillation Hypertension - Continue with Lopressor 25mg TID - better rate control and BP control - Oral anticoagulation contraindicated secondary to intracranial bleed - Monitor BP Trend, HR Decubitus ulcer, DTI sacral area - Continue Santyl - Wound care following. Recommends mable thick coverage of santyl ointment to wound bed on sacral area and cover with Slightly moistened Maxorb II ( Calcium alginate) dressing. Cover with ABD pad secured with tape or cover with bordered gauze. 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 Monitor accucheck Occlusive DVT in cephalic vein right upper extremity - Hematology consultation appreciated however oral anticoagulation contraindicated - Avoid IV access RUE Dysphagia secondary to intracranial hemorrhage - Barium swallow study normal - Reassess by speech for swallowing evaluation. Recommends pure diet, nectar thickened consistency liquids. - Aspiration precaution Generalized weakness, prolonged hospitalization - Encourage family to do ROM exercises with patient while in bed. Needs to be aggressive with increase activity, OOB-chair, if patient has pain, to be addressed with pain medication -tylenol. Discuss with family members that pain should not deter him to increase his activities or being OOB to chair. - Encourage activities in the morning so that patient can sleep during the night. Urinary tract infection, resolved - off antibiotics - Plan for voiding trial when more awake and active. Prophylaxis GI - lanosprazole DVT - SCD/pharmacological prophylaxis when okay with neurosurgery Discuss with patient, nursing, Dr. Hoang Discharge Planning As per CM note, [facility] will [facility] the [facility] when they are ready for patient transfer. Plan for patient to go back to [facility]. Pending Medicaid application. CM following. Difficult SNF placement. Transfer to [facility] when bed is available. Problem Qualifiers (1) HTN (hypertension): Qualified Codes: I10 - Essential (primary) hypertension Veronica Colye Dec 27, 2016 09:43
[2016-12-27] MEDS: MEGESTROL ACETATE SUSP 400 MG/10 ML CUP PO SCH (10:00)
[2016-12-27] MEDS: LANSOPRAZOLE SOLUTAB 30 MG TAB NG SCH (10:01)
[2016-12-27] MEDS: TOLTERODINE TARTRATE 2 MG CAP LA PO SCH (10:01)
[2016-12-27] MEDS: PHENYTOIN SODIUM 100 MG CAP PO SCH ×3 (10:02→17:52)
[2016-12-27] MEDS: FINASTERIDE 5 MG TAB PO SCH (10:03)
[2016-12-27] MEDS: amLODIPine BESYLATE 5 MG TAB PO SCH (10:03)
[2016-12-27] MEDS: FUROSEMIDE 40 MG/4 ML VIAL IV PUSH SCH (10:04)
[2016-12-27] MEDS: MUPIROCIN 2% CREAM 15 GM TOPICAL SCH ×2 (10:06→20:55)
[2016-12-27 12:00] VITALS: BP 127/65; PULSE 103; RESP 18; TEMP 97.3; O2SAT 98
[2016-12-27 16:00] VITALS: BP 130/75; PULSE 93; RESP 18; TEMP 97.4; O2SAT 98
--- NOTE | 2016-12-27 18:19 | HHI.NSPN ---
History Chief Complaint: Unable to obtain due to patient's clinical condition. Interval History Awake and alert today. Nursing staff reports no new problems Exam Results Vital Signs Date Time Temp Pulse Resp B/P (MAP) Pulse Ox O2 Delivery O2 Flow Rate FiO2 12/27/16 16:00 97.4 93 18 130/75 (93) 98 Intake and Output 12/27/16 12/27/16 12/28/16 08:00 16:00 00:00 Intake Total 480 ml Output Total 901 ml 850 ml Balance -901 ml -370 ml Physical Examination GENERAL: Awake and alert. No apparent distress SKIN: Warm, dry & intact. HEENT: Normocephalic, atraumatic. NECK: No JVD, trachea midline. CARDIOVASCULAR: S1S2 w/RRR w/o M/G/R, radial & pedal pulses 2+ bilaterally, cap refill < 2 sec, 1+ pedal edema. RESPIRATORY: Clear but decreased bilaterally w/o W/R/R, equal excursion, nonlaboured, on RA. GASTROINTESTINAL: Abdomen soft, nontender, bowel sounds not appreciated. MUSCULOSKELETAL: No evident deformity or clubbing. NEUROLOGICAL: Awake and alert Says a few words phrases Purposeful with his upper extremities. Not definitely following commands He is tolerating diet without signs of aspiration. Facial motor movements appear symmetric. Moves all extremities with good strength. Medical Decision Making Impression and Plan Impression/plan: 1. Traumatic brain injury. Most recent CT scan stable with resolving contusions, stable mild to moderate subdural fluid collections without significant mass effect. Mental status fluctuating throughout the day but overall stable over the past week. 2. UTI. Initial treatment completed. Follow-up urine culture negative thus far. 3. Hypertension, atrial fibrillation. Remains on Lopressor. 3. Recent seizures. He remains on Keppra and Dilantin. Dilantin level today satisfactory 4. Sacral decubitus ulcer. Continuing decubitus precautions, wound care, Santyl 5. Leukocytosis. Hematology following-workup in progress. 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 Diabetes. Remains on insulin sliding scale. 7. Respiratory insufficiency. Improved. Stable on room air Family is continuing efforts to have the patient transferred back to [facility]. Patient's family states that they are waiting word from the embassy regarding transportation Tony Godfrey MD Dec 27, 2016 18:19
[2016-12-27] MEDS: TAMSULOSIN HCL 0.4 MG CAP PO SCH (20:55)
[2016-12-27 20:59] VITALS: BP 148/97; PULSE 96; RESP 20; TEMP 97.6; O2SAT 99
[2016-12-28] VITALS (8 sets, daily range): BP systolic 124–166; BP diastolic 68–90; PULSE 91–106; RESP 18–20; TEMP 97.4–98; O2SAT 97–99
[2016-12-28] MEDS: METOPROLOL TARTRATE 25 MG TAB PO SCH ×3 (06:19→20:36)
[2016-12-28] MEDS: levETIRAcetam 500 MG TAB PO SCH ×3 (06:19→20:36)
[2016-12-28] MEDS: CHLORHEXIDINE 0.12% (ORAL KIT) 15 ML CUP MT SCH ×2 (07:49→20:40)
[2016-12-28] MEDS: INSULIN NovoLIN REGULAR SUPPLEMENTAL SCALE SQ SCH ×4 (07:49→20:32)
[2016-12-28] MEDS: ARTIFICIAL TEARS OPTH SOLN 15 ML BTL EACH EYE SCH ×3 (07:50→17:11)
[2016-12-28] MEDS: SODIUM CHLORIDE 0.9% FLUSH 10 ML FLUSH IVF SCH (07:51)
[2016-12-28] MEDS: TOLTERODINE TARTRATE 2 MG CAP LA PO SCH (08:15)
[2016-12-28] MEDS: PHENYTOIN SODIUM 100 MG CAP PO SCH ×3 (08:15→17:11)
[2016-12-28] MEDS: amLODIPine BESYLATE 5 MG TAB PO SCH (08:15)
[2016-12-28] MEDS: DOCUSATE SODIUM 100 MG/10 ML UDC PO SCH ×2 (08:15→20:37)
[2016-12-28] MEDS: FINASTERIDE 5 MG TAB PO SCH (08:15)
[2016-12-28] MEDS: LANSOPRAZOLE SOLUTAB 30 MG TAB NG SCH (08:15)
[2016-12-28] MEDS: MEGESTROL ACETATE SUSP 400 MG/10 ML CUP PO SCH (08:16)
[2016-12-28] MEDS: MUPIROCIN 2% CREAM 15 GM TOPICAL SCH ×2 (08:16→20:51)
[2016-12-28] MEDS: FUROSEMIDE 40 MG/4 ML VIAL IV PUSH SCH (08:16)
[2016-12-28] MEDS: SODIUM CHLORIDE 0.9% FLUSH 10 ML FLUSH IV FLUSH SCH ×2 (08:16→20:40)
[2016-12-28] MEDS: COLLAGENASE OINT 30 GM TUBE TOPICAL SCH ×2 (08:16)
[2016-12-28] MEDS: POLYETHYLENE GLYCOL 17 GM PKG OG-TUBE SCH ×3 (08:16→21:00)
[2016-12-28] MEDS: INSULIN DETEMIR 100 UNITS/ML VIAL SQ SCH ×2 (09:00→21:00)
--- NOTE | 2016-12-28 09:52 | HHI.PR ---
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 spoke - per staff- Serbian speaking tolerating pureed diet moves gabriella extremities spontaenously Objective Vitals Vital Signs Date Time Temp Pulse Resp B/P (MAP) Pulse Ox O2 Delivery O2 Flow Rate FiO2 12/28/16 08:00 97.7 100 20 137/78 (97) 99 12/28/16 05:30 97.7 106 20 157/90 (112) 99 12/28/16 01:05 97.5 95 20 147/85 (105) 99 12/27/16 20:59 97.6 96 20 148/97 (114) 99 12/27/16 16:00 97.4 93 18 130/75 (93) 98 12/27/16 12:00 97.3 103 18 127/65 (85) 98 I/O 12/27/16 12/27/16 12/27/16 12/28/16 12/28/16 12/28/16 07:00 15:00 23:00 07:00 15:00 23:00 Intake Total 480 ml Output Total 700 ml 201 ml 850 ml 400 ml Balance -700 ml -201 ml -370 ml -400 ml Intake Oral 480 ml Output Urine Total 700 ml 200 ml 850 ml 400 ml Stool Total 1 ml # Bowel Movements 1 2 Result Diagram: 12/24/1636 12/24/1636 Imaging Last Impressions Brain MRI 12/13/16 0000 Signed Impressions: Service Date/Time: Tuesday, December 13, 2016 12:20 - CONCLUSION: 1. The examination demonstrates multiple small areas of intraparenchymal and extra-axial hemorrhage as described above. These areas are more apparent on the patient's MRI examination than on the CT. Direct comparison is made. The areas of edema and hemorrhage appear similar though they are isointense on the CT. 2. 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 There is cortical atrophy. Anthony Burns MD Chest X-Ray 12/04/16 0000 Signed Impressions: Service Date/Time: November 11:58 - CONCLUSION: Improving aeration. Lonnie Blanchard MD Upper Extremity Ultrasound 12/02/16 0000 Signed Impressions: Service Date/Time: Saturday, December 03, 2016 00:53 - CONCLUSION: 1. Occlusive DVT in the cephalic and basilic vein on the right. Alex Goode MD Head CT 12/01/16 0000 Signed Impressions: Service Date/Time: Thursday, December 01, 2016 13:14 - CONCLUSION: Evolving intracranial hemorrhagic foci as above, both intra-axial and extra-axial. Jeuss Lee MD Modified Barium Swallow 11/30/16 0000 Signed Impressions: Service Date/Time: Wednesday, November 30, 2016 00:00 - CONCLUSION: Please refer to speech pathology report for full details. Lonnie Cook MD Transcranial Doppler Study Complete 11/17/16 0000 Signed Impressions: Service Date/Time: Thursday, November 17, 2016 10:03 - CONCLUSION: 1. Nondiagnostic examination due to poor transcranial windows. Konstantin Dash MD Abdomen X-Ray 11/12/16 0000 Signed Impressions: Service Date/Time: Saturday, November 12, 2016 08:23 - CONCLUSION: 1. Gastric tube in good position. 2. Probable right renal stones. Narayan Coulter MD Cervical Spine CT 11/09/161950 Signed Impressions: Service Date/Time: Wednesday, November 09, 2016 20:14 - CONCLUSION: Negative trauma CT. 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 no nuchal rigidity decreased breath sounds, no rales or wheezes irregular rhythm abdomen soft, nontender extremities no edema prabhakar in place moves all extremities spontaneously Urinary Catheter: Yes Assessment to: Continue Prabhakar insert reason: Obstruction/Retention Date of Insertion: Dec 17, 2016 Date of Insertion: Nov 12, 2016 Line: Central Venous Catheter Side: Right Location: Internal, Jugular A/P Problem List: (1) Subdural hematoma ICD Code: I62.00 - Nontraumatic subdural hemorrhage, unspecified Status: Acute (2) Diabetes ICD Code: E11.9 - Type 2 diabetes mellitus without complications Status: Chronic (3) Leukocytosis ICD Code: D72.829 - Elevated white blood cell count, unspecified Status: Acute (4) HTN (hypertension) ICD Code: I10 - Essential (primary) hypertension Status: Chronic (5) Dysphagia ICD Code: R13.10 - Dysphagia, unspecified (6) Urinary tract infection ICD Code: N39.0 - Urinary tract infection, site not specified Assessment and Plan 80 y/o with a history of HTN, DM, and BPH presented to the ED after a fall at home, with a LOC for 10-15 mins. 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 Ordered other testing R/O other bone marrow abnormality. Follow results. - Blood cultures no growth in 5 days. Off antibiotics. - Awaiting results of TCR gene rearrangement studies from pathology. - Avoid unnecessary blood draws Respiratory insufficiency - resolved - Chest x-ray with improvement in aeration - Continue CPT - Schedule and DuoNeb when necessary and maintain oxygen saturation above 92% - Improving aeration with CXR - Off NC, tolerating RA - out of bed to chair daily- d/w staff Atrial fibrillation Hypertension - Continue with Lopressor 25mg TID - better rate control - continue to monitor and adjust on Lasix 40 mg IV- change to po 40 mg daily on Amlodipine 5 mg daily - Oral anticoagulation contraindicated secondary to intracranial bleed - Monitor BP Trend, HR - place on telemetry Decubitus ulcer, DTI sacral area - Continue Santyl - Wound care following. Recommends mable thick coverage of Santyl ointment to wound bed on sacral area and cover with Slightly moistened Maxorb II (Calcium alginate) dressing. Cover with ABD pad secured with tape or cover with bordered gauze. - Repositioning every 2 hour Acute urinary retention History of BPH -pers staff failed voiding trial x 3- last placed 12/17 - Continue with Flomax, Detrol and Proscar - Prabhakar care - Voiding trial againthis week Diabetes mellitus - hemoglobin A1c 6.0 - Levemir 10 units twice a day ISS. - decrease to 8 uunits HS - Monitor accucheck- ff blood sugars Occlusive DVT in cephalic vein right upper extremity - Hematology consultation appreciated however oral anticoagulation contraindicated - Avoid IV access RUE Dysphagia secondary to intracranial hemorrhage - Barium swallow study normal - Reassess by speech for swallowing evaluation. Recommends pure diet, nectar thickened consistency liquids. Speech therapist ff - Aspiration precaution Generalized weakness, prolonged hospitalization - Encourage family to do ROM exercises with patient while in bed. Needs to be aggressive activity, OOB- d/w staff - out of bed to chair Urinary tract infection, resolved - off antibiotics - Plan for voiding trial when more awake and active. this week Prophylaxis GI - lansoprazole DVT - SCD/pharmacological prophylaxis when okay with neurosurgery Discharge Planning Patient's family states that they are waiting word from the embassy regarding transportation Problem Qualifiers (1) HTN (hypertension): Qualified Codes: I10 - Essential (primary) hypertension Zuleyka Rashid MD Dec 28, 2016 09:52
--- NOTE | 2016-12-28 13:08 | HHI.NSPN ---
History Chief Complaint: Unable to obtain due to patient's clinical condition. Interval History Awake and alert today. Nursing staff reports no new problems Exam Results Vital Signs Date Time Temp Pulse Resp B/P (MAP) Pulse Ox O2 Delivery O2 Flow Rate FiO2 12/28/16 12:00 97.9 106 20 124/75 (91) 98 Intake and Output 12/28/16 12/28/16 12/29/16 08:00 16:00 00:00 Output Total 400 ml Balance -400 ml Physical Examination GENERAL: Awake and alert. No apparent distress SKIN: Warm, dry & intact. HEENT: Normocephalic, atraumatic. NECK: No JVD, trachea midline. CARDIOVASCULAR: Regular rhythm without murmur RESPIRATORY: Clear and nonlabored GASTROINTESTINAL: Abdomen soft, nontender, bowel sounds not appreciated. MUSCULOSKELETAL: No evident deformity or clubbing. NEUROLOGICAL: Awake and alert Smiling a little. Focuses and follows with conjugate gaze Not verbalizing today Purposeful with his upper extremities. Not definitely following commands He is tolerating diet without signs of aspiration. Facial motor movements appear symmetric. Moves all extremities with good strength. Medical Decision Making Impression and Plan Impression/plan: 1. Traumatic brain injury. Most recent CT scan stable with resolving contusions, stable mild to moderate subdural fluid collections without significant mass effect. Mental status fluctuating throughout the day but overall stable over the past week. 2. UTI. Treated. 12/13/16 follow-up urine culture growth at 48 hours 3. Hypertension, atrial fibrillation. Remains on Lopressor. 3. Recent seizures. He remains on Keppra and Dilantin. 4. Sacral decubitus ulcer. Continuing decubitus precautions, wound care, Santyl 5. Leukocytosis. Hematology following-workup in progress. 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 Diabetes. Remains on insulin sliding scale. 7. Respiratory insufficiency. Improved. Stable on room air Family is continuing efforts to have the patient transferred back to [facility]. Patient's family has indicated that they are waiting word from the embassy regarding transportation Tony Godfrey MD Dec 28, 2016 13:08
[2016-12-28] MEDS: TAMSULOSIN HCL 0.4 MG CAP PO SCH (20:37)
[2016-12-29] VITALS (7 sets, daily range): BP systolic 134–152; BP diastolic 77–88; PULSE 89–108; RESP 18–20; TEMP 97–97.6; O2SAT 96–98
[2016-12-29] MEDS: levETIRAcetam 500 MG TAB PO SCH ×3 (06:00→20:58)
[2016-12-29] MEDS: METOPROLOL TARTRATE 25 MG TAB PO SCH ×3 (06:00→20:58)
[2016-12-29] MEDS: INSULIN NovoLIN REGULAR SUPPLEMENTAL SCALE SQ SCH ×4 (07:33→21:00)
[2016-12-29] MEDS: CHLORHEXIDINE 0.12% (ORAL KIT) 15 ML CUP MT SCH ×2 (08:00→20:00)
[2016-12-29] MEDS: SODIUM CHLORIDE 0.9% FLUSH 10 ML FLUSH IVF SCH (08:29)
[2016-12-29] MEDS: POLYETHYLENE GLYCOL 17 GM PKG OG-TUBE SCH ×2 (08:30→20:38)
[2016-12-29] MEDS: FINASTERIDE 5 MG TAB PO SCH (08:31)
[2016-12-29] MEDS: amLODIPine BESYLATE 5 MG TAB PO SCH (08:32)
[2016-12-29] MEDS: FUROSEMIDE 40 MG TAB PO SCH (08:32)
[2016-12-29] MEDS: DOCUSATE SODIUM 100 MG/10 ML UDC PO SCH ×2 (08:32→20:37)
[2016-12-29] MEDS: TOLTERODINE TARTRATE 2 MG CAP LA PO SCH (08:32)
[2016-12-29] MEDS: PHENYTOIN SODIUM 100 MG CAP PO SCH ×3 (08:32→17:16)
[2016-12-29] MEDS: LANSOPRAZOLE SOLUTAB 30 MG TAB NG SCH (08:33)
[2016-12-29] MEDS: COLLAGENASE OINT 30 GM TUBE TOPICAL SCH ×2 (08:33)
[2016-12-29] MEDS: MUPIROCIN 2% CREAM 15 GM TOPICAL SCH ×2 (08:33→20:39)
[2016-12-29] MEDS: ARTIFICIAL TEARS OPTH SOLN 15 ML BTL EACH EYE SCH ×3 (08:33→17:10)
[2016-12-29] MEDS: MEGESTROL ACETATE SUSP 400 MG/10 ML CUP PO SCH (08:33)
[2016-12-29] MEDS: SODIUM CHLORIDE 0.9% FLUSH 10 ML FLUSH IV FLUSH SCH ×2 (08:33→20:41)
[2016-12-29] MEDS: INSULIN DETEMIR 100 UNITS/ML VIAL SQ SCH ×2 (08:33→21:00)
--- NOTE | 2016-12-29 15:17 | HHI.PR ---
Subjective Remarks seen with daughter at bedside states he ate lunch today- fed Objective Vitals Vital Signs Date Time Temp Pulse Resp B/P (MAP) Pulse Ox O2 Delivery O2 Flow Rate FiO2 12/29/16 12:00 97.3 105 18 134/77 (96) 96 12/29/16 08:00 97.0 96 18 151/84 (106) 98 12/29/16 08:00 108 12/29/16 04:00 97.6 107 20 149/87 (107) 97 12/29/16 00:00 97.6 101 18 152/85 (107) 96 12/28/16 22:51 98 12/28/16 20:00 97.4 100 18 166/68 (100) 97 12/28/16 16:34 91 12/28/16 16:00 98.0 92 20 136/78 (97) 98 I/O 12/28/16 12/28/16 12/28/16 12/29/16 12/29/16 12/29/16 07:00 15:00 23:00 07:00 15:00 23:00 Intake Total 1200 ml Output Total 400 ml 500 ml 300 ml 300 ml Balance -400 ml 700 ml -300 ml -300 ml Intake Oral 1200 ml Output Urine Total 400 ml 500 ml 300 ml 300 ml # Bowel Movements 2 1 Imaging Last Impressions Brain MRI 12/13/16 0000 Signed Impressions: Service Date/Time: Tuesday, December 13, 2016 12:20 - CONCLUSION: 1. The examination demonstrates multiple small areas of intraparenchymal and extra-axial hemorrhage as described above. These areas are more apparent on the patient's MRI examination than on the CT. Direct comparison is made. The areas of edema and hemorrhage appear similar though they are isointense on the CT. 2. 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 There is cortical atrophy. Anthony Burns MD Chest X-Ray 12/04/16 0000 Signed Impressions: Service Date/Time: November 11:58 - CONCLUSION: Improving aeration. Lonnie Blanchard MD Upper Extremity Ultrasound 12/02/16 0000 Signed Impressions: Service Date/Time: Saturday, December 03, 2016 00:53 - CONCLUSION: 1. Occlusive DVT in the cephalic and basilic vein on the right. Alex Goode MD Head CT 12/01/16 0000 Signed Impressions: Service Date/Time: Thursday, December 01, 2016 13:14 - CONCLUSION: Evolving intracranial hemorrhagic foci as above, both intra-axial and extra-axial. Jesus Lee MD Modified Barium Swallow 11/30/16 0000 Signed Impressions: Service Date/Time: Wednesday, November 30, 2016 00:00 - CONCLUSION: Please refer to speech pathology report for full details. Lonnie Cook MD Transcranial Doppler Study Complete 11/17/16 0000 Signed Impressions: Service Date/Time: Thursday, November 17, 2016 10:03 - CONCLUSION: 1. Nondiagnostic examination due to poor transcranial windows. Konstantin Dash MD Abdomen X-Ray 11/12/16 Signed Impressions: Service Date/Time: Saturday, November 12, 2016 08:23 - CONCLUSION: 1. Gastric tube in good position. 2. Probable right renal stones. Narayan Coulter MD Cervical Spine CT 11/09/161950 Signed Impressions: Service Date/Time: Wednesday, November 09, 2016 20:14 - CONCLUSION: Negative trauma CT. 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, consultant electronics when hands held anicteric no nuchal rigidity decreased breath sounds, no rales or wheezes irregular rhythm abdomen soft, nontender extremities no edema prabhakar in place moves all extremities spontaneously Date of Insertion: Dec 17, 2016 Date of Insertion: Nov 12, 2016 Line: Central Venous Catheter Side: Right Location: Internal, Jugular A/P Problem List: (1) Subdural hematoma ICD Code: I62.00 - Nontraumatic subdural hemorrhage, unspecified Status: Acute (2) Diabetes ICD Code: E11.9 - Type 2 diabetes mellitus without complications Status: Chronic (3) Leukocytosis ICD Code: D72.829 - Elevated white blood cell count, unspecified Status: Acute (4) HTN (hypertension) ICD Code: I10 - Essential (primary) hypertension Status: Chronic (5) Dysphagia ICD Code: R13.10 - Dysphagia, unspecified (6) Urinary tract infection ICD Code: N39.0 - Urinary tract infection, site not specified Assessment and Plan 80 y/o with a history of HTN, DM, and BPH presented to the ED after a fall at home, with a LOC for 10-15 mins. 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 Ordered other testing R/O other bone marrow abnormality. Follow results. - Blood cultures no growth in 5 days. Off antibiotics. - Awaiting results of TCR gene rearrangement studies from pathology. - Avoid unnecessary blood draws Respiratory insufficiency - resolved - Chest x-ray with improvement in aeration - Continue CPT - Schedule and DuoNeb when necessary and maintain oxygen saturation above 92% - Improving aeration with CXR - Off NC, tolerating RA - out of bed to chair daily- d/w staff Atrial fibrillation Hypertension - Continue with Lopressor 25mg TID - better rate control - continue to monitor and adjust on Lasix 40 mg IV- change to po 40 mg daily on Amlodipine 5 mg daily - Oral anticoagulation contraindicated secondary to intracranial bleed - Monitor BP Trend, HR - place on telemetry Decubitus ulcer, DTI sacral area - Continue Santyl - Wound care following. Recommends mable thick coverage of Santyl ointment to wound bed on sacral area and cover with Slightly moistened Maxorb II (Calcium alginate) dressing. Cover with ABD pad secured with tape or cover with bordered gauze. - Repositioning every 2 hour Acute urinary retention History of BPH -pers staff failed voiding trial x 3- last placed 12/17 - Continue with Flomax, Detrol and Proscar - Prabhakar care - Voiding trial againthis week Diabetes mellitus - hemoglobin A1c 6.0 - Levemir 10 units twice a day ISS. - decrease to 8 uunits HS - Monitor accucheck- ff blood sugars Occlusive DVT in cephalic vein right upper extremity - Hematology consultation appreciated however oral anticoagulation contraindicated - Avoid IV access RUE Dysphagia secondary to intracranial hemorrhage - Barium swallow study normal - Reassess by speech for swallowing evaluation. Recommends pure diet, nectar thickened consistency liquids. Speech therapist ff - Aspiration precaution Generalized weakness, prolonged hospitalization - Encourage family to do ROM exercises with patient while in bed. Needs to be aggressive activity, OOB- d/w staff - out of bed to chair Urinary tract infection, resolved - off antibiotics - Plan for voiding trial when more awake and active. this week Prophylaxis GI - lansoprazole DVT - SCD/pharmacological prophylaxis when okay with neurosurgery Discharge Planning Patient's family states that they are waiting word from the embassy regarding transportation Problem Qualifiers (1) HTN (hypertension): Qualified Codes: I10 - Essential (primary) hypertension Zuleyka Rashid MD Dec 29, 2016 15:17
--- NOTE | 2016-12-29 16:24 | HHI.NSPN ---
(Brennon White) History Chief Complaint: Unable to obtain due to patient's clinical condition. (Brennon White) Interval History 12/07: Patient opens eyes to voice, smiles, questionable followed simple command left UE x one, not following commands other extremities. Not verbalizing. 12/13: Patient reported to be sleeping a little better at night. Still lethargic much of the day. According to family he is saying a few words and responds to questions, remains confused, following a few commands occasionally. 12/15: Patient extremely lethargic. No response to verbal stimulation but did withdraw upper extremities and open eyes to localised noxious stimulation. Slight moaning but no other response. 12/16: The patient is lethargic but less so today. He was noted to open his eyes and move both upper extremities spontaneously. He did respond to some commands weakly but did not verbalise. 12/19: This morning the patient is seen in rounds with Dr. Godfrey. The patient is awake and alert and did track with his eyes. 12/23: When seen this morning the patient's daughter is feeding him. He does spontaneously open his eyes and move the upper extremities. He does appear to track with the eyes. 12/25: The patient is awake this morning and moving the right upper extremity spontaneously. He is watching Nursing and his family as they move about in the room. The [id number] reports that the embassy is to call the hospital once everything is ready for the patient to be transferred back to [facility] or if they need any further information. She says her , the patient's son, spoke with the embassy yesterday. 12/29: The patient is asleep but awakens to verbal stimulation. He spontaneously moves both upper extremities and follows some commands on the right side. (Brennon White) System Review Comments Unable to obtain due to patient's clinical condition. (Brennon White) Exam Results 12/27/16 12/27/16 12/28/16 12/28/16 12/29/1612/29/17 06:00 18:00 06:00 18:00 06:00 18:00 Intake Total 480 ml 1200 ml Output Total 700 ml 1051 ml 400 ml 500 ml 300 ml 300 ml Balance -700 ml -571 ml -400 ml 700 ml -300 ml -300 ml Intake Oral 480 ml 1200 ml Output Urine Total 700 ml 1050 ml 400 ml 500 ml 300 ml 300 ml Stool Total 1 ml # Bowel Movements 1 3 2 1 Vital Signs Date Time Temp Pulse Resp B/P (MAP) Pulse Ox O2 Delivery O2 Flow Rate FiO2 12/29/16 12:00 97.3 105 18 134/77 (96) 96 12/29/16 08:00 97.0 96 18 151/84 (106) 98 12/29/16 08:00 108 12/29/16 04:00 97.6 107 20 149/87 (107) 97 12/29/16 00:00 97.6 101 18 152/85 (107) 96 12/28/16 22:51 98 12/28/16 20:00 97.4 100 18 166/68 (100) 97 12/28/16 16:34 91 12/28/16 16:00 98.0 92 20 136/78 (97) 98 12/28/16 12:00 97.9 106 20 124/75 (91) 98 12/28/16 08:00 97.7 100 20 137/78 (97) 99 12/28/16 05:30 97.7 106 20 157/90 (112) 99 12/28/16 01:05 97.5 95 20 147/85 (105) 99 12/27/16 20:59 97.6 96 20 148/97 (114) 99 12/27/16 16:00 97.4 93 18 130/75 (93) 98 12/27/16 12:00 97.3 103 18 127/65 (85) 98 12/27/16 08:00 98.1 107 18 154/92 (112) 98 12/27/16 05:11 97.2 110 24 149/86 (107) 99 12/27/16 01:00 97.4 98 24 155/89 (111) 98 12/26/16 20:46 97.6 20 144/76 (98) 99 (Brennon White) Physical Examination GENERAL: Asleep, responds to voice but quickly closes eyes if not stimulated. No evident distress. SKIN: Warm, dry & intact. HEENT: Normocephalic, atraumatic. PERRLA, does appear to track. NECK: No JVD, trachea midline. CARDIOVASCULAR: S1S2 w/RRR w/o M/G/R, cap refill < 2 sec, radial & pedal pulses 2+ bilaterally, no pedal edema. RESPIRATORY: CTAB w/o W/R/R, equal excursion, nonlaboured, on RA. GASTROINTESTINAL: Abdomen soft, nontender, bowel sounds not appreciated. MUSCULOSKELETAL: No evident deformity or clubbing. NEUROLOGICAL: Asleep but awakens to voice, readily closes eyes again. Nonverbal. Follows some simple commands. Spontaneously moves upper extremities. 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 (Brennon White) Medical Decision Making Impression and Plan Impression: 1. Traumatic brain injury 2. Respiratory failure, improved 3. Seizures 4. Jane UTI, resolved 5. Occlusive DVT to right cephalic & basilic veins 6. Leukocytosis 7. Sacral decubitus 8. Atrial fibrillation 9. Hypertension 10. Diabetes Patient appears neurologically stable. T-cell lymphoproliferative disorder per Haematology/Oncology, at present feel patient is not a candidate for treatment. Plan: Medical management per Hospitalist. No active issues for Neurosurgery. Awaiting clearance for medical transport back to [facility]. Appreciate Hospitalist, Palliative Care & Haematology/Oncology input. (Brennon White) Attending Statement I have personally seen and examined the patient on the date of this note. Pertinent documentation and study results have been reviewed by the undersigned. I have personally developed the treatment plan and performed medical decision making. Agree with findings, exam, and treatment plan as noted above. No overall change in neurologic function Discussed with patient's daughter in the room today Continue transfer efforts (Tony Godfrey MD) Brennon White Dec 29, 2016 16:24 Tony Godfrey MD Dec 30, 2016 19:49
--- NOTE | 2016-12-29 17:05 | HHI.HCPN ---
Mr. 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 He presented to [facility] ED on 2016 via EMS from his home after a witnessed fall with loss of consciousness. Per EMS report, the patient was observed by his grandson walking into the house when he missed the front step falling backward onto the concrete walkway and hitting his head. Patient is afebrile. HR low 100s. SBP 130s-150s. Patient seen in room. Patient` s daughter Juliane at bedside. Per daughter, patient has been cleared by [place] [facility] and now they are awaiting word from [place] to provide transportation with medical staff from [place] to come and transport patient from [facility] to [facility] ([facility]). . Axel Whitney Dec 29, 2016 17:05
[2016-12-29] MEDS: TAMSULOSIN HCL 0.4 MG CAP PO SCH (20:38)
[2016-12-30] VITALS (8 sets, daily range): BP systolic 130–170; BP diastolic 72–87; PULSE 95–127; RESP 18–20; TEMP 97.5–98.8; O2SAT 91–99
[2016-12-30] MEDS: levETIRAcetam 500 MG TAB PO SCH ×3 (05:04→20:57)
[2016-12-30] MEDS: METOPROLOL TARTRATE 25 MG TAB PO SCH ×3 (05:05→20:57)
[2016-12-30] MEDS: CHLORHEXIDINE 0.12% (ORAL KIT) 15 ML CUP MT SCH ×2 (08:00→21:10)
[2016-12-30] MEDS: INSULIN NovoLIN REGULAR SUPPLEMENTAL SCALE SQ SCH ×4 (08:00→21:00)
[2016-12-30] MEDS: DOCUSATE SODIUM 100 MG/10 ML UDC PO SCH ×2 (08:38→20:57)
[2016-12-30] MEDS: MEGESTROL ACETATE SUSP 400 MG/10 ML CUP PO SCH (08:39)
[2016-12-30] MEDS: amLODIPine BESYLATE 5 MG TAB PO SCH (08:39)
[2016-12-30] MEDS: FINASTERIDE 5 MG TAB PO SCH (08:39)
[2016-12-30] MEDS: LANSOPRAZOLE SOLUTAB 30 MG TAB NG SCH (08:39)
[2016-12-30] MEDS: TOLTERODINE TARTRATE 2 MG CAP LA PO SCH (08:40)
[2016-12-30] MEDS: FUROSEMIDE 40 MG TAB PO SCH (08:40)
[2016-12-30] MEDS: PHENYTOIN SODIUM 100 MG CAP PO SCH ×3 (08:40→18:10)
[2016-12-30] MEDS: MUPIROCIN 2% CREAM 15 GM TOPICAL SCH ×2 (08:45→20:58)
[2016-12-30] MEDS: SODIUM CHLORIDE 0.9% FLUSH 10 ML FLUSH IVF SCH (08:45)
[2016-12-30] MEDS: INSULIN DETEMIR 100 UNITS/ML VIAL SQ SCH ×2 (08:45→23:03)
[2016-12-30] MEDS: SODIUM CHLORIDE 0.9% FLUSH 10 ML FLUSH IV FLUSH SCH ×2 (08:45→20:57)
[2016-12-30] MEDS: COLLAGENASE OINT 30 GM TUBE TOPICAL SCH ×2 (08:45→09:00)
[2016-12-30] MEDS: POLYETHYLENE GLYCOL 17 GM PKG OG-TUBE SCH ×2 (09:00→21:00)
[2016-12-30] MEDS: ARTIFICIAL TEARS OPTH SOLN 15 ML BTL EACH EYE SCH ×3 (09:00→18:00)
--- NOTE | 2016-12-30 09:57 | HHI.PR ---
Subjective Remarks awake and more alert this am moves both UE spontaenously noted some coughing seen with daughter at bedside- we discussed about the prabhakar- she states that baseline- patient needs to be standing up to be able to pee in the past and now with this bed bound status- - she is definite that he won't be able to urinate on his own and requested that we keep prabhakar Objective Vitals Vital Signs Date Time Temp Pulse Resp B/P (MAP) Pulse Ox O2 Delivery O2 Flow Rate FiO2 12/30/16 07:56 97.7 96 19 136/85 (102) 99 12/30/16 06:00 95 12/30/16 05:10 98.8 107 20 170/86 (114) 96 12/30/16 01:03 97.8 95 20 141/87 (105) 97 12/29/16 21:11 97.6 100 20 146/88 (107) 97 12/29/16 16:00 97.6 89 18 137/83 (101) 97 12/29/16 15:00 101 12/29/16 12:00 97.3 105 18 134/77 (96) 96 I/O 12/29/16 12/29/16 12/29/16 12/30/16 12/30/16 12/30/16 07:00 15:00 23:00 07:00 15:00 23:00 Intake Total 280 ml Output Total 300 ml 250 ml 400 ml Balance -300 ml 30 ml -400 ml Intake Oral 280 ml Output Urine Total 300 ml 250 ml 400 ml # Bowel Movements 1 1 2 Imaging Last Impressions Brain MRI 12/13/16 0000 Signed Impressions: Service Date/Time: Tuesday, December 13, 2016 12:20 - CONCLUSION: 1. The examination demonstrates multiple small areas of intraparenchymal and extra-axial hemorrhage as described above. These areas are more apparent on the patient's MRI examination than on the CT. Direct comparison is made. The areas of edema and hemorrhage appear similar though they are isointense on the CT. 2. 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 There is cortical atrophy. Anthony Burns MD Chest X-Ray 12/04/16 0000 Signed Impressions: Service Date/Time: November 11:58 - CONCLUSION: Improving aeration. Lonnie Blanchard MD Upper Extremity Ultrasound 12/02/16 Signed Impressions: Service Date/Time: Saturday, December 03, 2016 00:53 - CONCLUSION: 1. Occlusive DVT in the cephalic and basilic vein on the right. Alex Goode MD Head CT 12/01/16 Signed Impressions: Service Date/Time: Thursday, December 01, 2016 13:14 - CONCLUSION: Evolving intracranial hemorrhagic foci as above, both intra-axial and extra-axial. Jesus Lee MD Modified Barium Swallow 11/30/16 Signed Impressions: Service Date/Time: Wednesday, November 30, 2016 00:00 - CONCLUSION: Please refer to speech pathology report for full details. Lonnie Cook MD Transcranial Doppler Study Complete 11/17/16 Signed Impressions: Service Date/Time: Thursday, November 17, 2016 10:03 - CONCLUSION: 1. Nondiagnostic examination due to poor transcranial windows. Konstantin Dash MD Abdomen X-Ray 11/12/16 Signed Impressions: Service Date/Time: Saturday, November 12, 2016 08:23 - CONCLUSION: 1. Gastric tube in good position. 2. Probable right renal stones. Narayan Coulter MD Cervical Spine CT 11/09/161950 Signed Impressions: Service Date/Time: Wednesday, November 09, 2016 20:14 - CONCLUSION: Negative trauma CT. 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 no nuchal rigidity decreased breath sounds, no rales or wheezes irregular rhythm abdomen soft, nontender extremities no edema prabhakar in place moves all extremities spontaneously Urinary Catheter: Yes Assessment to: Continue Prabhakar insert reason: Obstruction/Retention Date of Insertion: Dec 17, 2016 Date of Insertion: Nov 12, 2016 Line: Central Venous Catheter Side: Right Location: Internal, Jugular A/P Problem List: (1) Subdural hematoma ICD Code: I62.00 - Nontraumatic subdural hemorrhage, unspecified Status: Acute (2) Diabetes ICD Code: E11.9 - Type 2 diabetes mellitus without complications Status: Chronic (3) Leukocytosis ICD Code: D72.829 - Elevated white blood cell count, unspecified Status: Acute (4) HTN (hypertension) ICD Code: I10 - Essential (primary) hypertension Status: Chronic (5) Dysphagia ICD Code: R13.10 - Dysphagia, unspecified (6) Urinary tract infection ICD Code: N39.0 - Urinary tract infection, site not specified Assessment and Plan 80 y/o with a history of HTN, DM, and BPH presented to the ED after a fall at home, with a LOC for 10-15 mins. 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 Ordered other testing R/O other bone marrow abnormality. Follow results. - Blood cultures no growth in 5 days. Off antibiotics. - Awaiting results of TCR gene rearrangement studies from pathology. - Avoid unnecessary blood draws Respiratory insufficiency - resolved - Chest x-ray with improvement in aeration - Continue CPT - Schedule and DuoNeb when necessary and maintain oxygen saturation above 92% - Improving aeration with CXR - Off NC, tolerating RA - out of bed to chair daily- d/w staff- 12/29 Atrial fibrillation Hypertension - Continue with Lopressor 25mg TID - better rate control - continue to monitor and adjust on Lasix 40 mg IV- change to po 40 mg daily on Amlodipine 5 mg daily - Oral anticoagulation contraindicated secondary to intracranial bleed - Monitor BP Trend, HR - place on telemetry Decubitus ulcer, DTI sacral area - Continue Santyl - Wound care following. Recommends mable thick coverage of Santyl ointment to wound bed on sacral area and cover with Slightly moistened Maxorb II (Calcium alginate) dressing. Cover with ABD pad secured with tape or cover with bordered gauze. - Repositioning every 2 hour Acute urinary retention History of BPH -pers staff failed voiding trial x 3- last placed 12/17 - Continue with Flomax, Detrol and Proscar - Prabhakar care- keep prabhakar Diabetes mellitus - hemoglobin A1c 6.0 - BS reviewed 200s- increase Levemir back up to 10 units bid - Monitor accucheck- ff blood sugars Occlusive DVT in cephalic vein right upper extremity - Hematology consultation appreciated however oral anticoagulation contraindicated - Avoid IV access RUE Dysphagia secondary to intracranial hemorrhage - Barium swallow study normal - Reassess by speech for swallowing evaluation. - will continue to ff along with ys Recommends pure diet, nectar thickened consistency liquids. Speech therapist ff - Aspiration precaution Generalized weakness, prolonged hospitalization - Encourage family to do ROM exercises with patient while in bed. Needs to be aggressive activity, OOB- d/w staff - out of bed to chair Urinary tract infection, resolved - off antibiotics - Plan for voiding trial when more awake and active. this week Prophylaxis GI - lansoprazole DVT - SCD/pharmacological prophylaxis when okay with neurosurgery Discharge Planning Patient's family states that they are waiting word from the embassy regarding transportation Problem Qualifiers (1) HTN (hypertension): Qualified Codes: I10 - Essential (primary) hypertension Zuleyka Rashid MD Dec 30, 2016 09:57
--- NOTE | 2016-12-30 11:10 | HHI.NSPN ---
([facility] MACIAS) History Chief Complaint: Unable to obtain due to patient's clinical condition. ([facility] MACIAS) Interval History 12/07: Patient opens eyes to voice, smiles, questionable followed simple command left UE x one, not following commands other extremities. Not verbalizing. 12/13: Patient reported to be sleeping a little better at night. Still lethargic much of the day. According to family he is saying a few words and responds to questions, remains confused, following a few commands occasionally. 12/15: Patient extremely lethargic. No response to verbal stimulation but did withdraw upper extremities and open eyes to localised noxious stimulation. Slight moaning but no other response. 12/16: The patient is lethargic but less so today. He was noted to open his eyes and move both upper extremities spontaneously. He did respond to some commands weakly but did not verbalise. 12/19: This morning the patient is seen in rounds with Dr. Godfrey. The patient is awake and alert and did track with his eyes. 12/23: When seen this morning the patient's daughter is feeding him. He does spontaneously open his eyes and move the upper extremities. He does appear to track with the eyes. 12/25: The patient is awake this morning and moving the right upper extremity spontaneously. He is watching Nursing and his family as they move about in the room. The [id number]-ax-squ reports that the embassy is to call the hospital once everything is ready for the patient to be transferred back to [facility] or if they need any further information. She says her , the patient's son, spoke with the embassy yesterday. 12/29: The patient is asleep but awakens to verbal stimulation. He spontaneously moves both upper extremities and follows some commands on the right side. 12/30: This morning the patient is lethargic. He briefly opens his eyes but does not follow commands. His daughter/hfiyjpoh-se-kln reports that he was awake all night due to his coughing. 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 (Brennon White) System Review Comments Unable to obtain due to patient's clinical condition. (Brennon White) Exam Results 12/28/16 12/28/16 12/29/16 12/29/16 12/30/16 12/30/16 06:00 18:00 06:00 18:00 06:00 18:00 Intake Total 1200 ml 280 ml Output Total 400 ml 500 ml 300 ml 550 ml 400 ml Balance -400 ml 700 ml -300 ml -270 ml -400 ml Intake Oral 1200 ml 280 ml Output Urine Total 400 ml 500 ml 300 ml 550 ml 400 ml # Bowel Movements 2 2 2 Vital Signs Date Time Temp Pulse Resp B/P (MAP) Pulse Ox O2 Delivery O2 Flow Rate FiO2 12/30/16 10:53 100 12/30/16 07:56 97.7 96 19 136/85 (102) 99 12/30/16 06:00 95 12/30/16 05:10 98.8 107 20 170/86 (114) 96 12/30/16 01:03 97.8 95 20 141/87 (105) 97 12/29/16 21:11 97.6 100 20 146/88 (107) 97 12/29/16 16:00 97.6 89 18 137/83 (101) 97 12/29/16 15:00 101 12/29/16 12:00 97.3 105 18 134/77 (96) 96 12/29/16 08:00 97.0 96 18 151/84 (106) 98 12/29/16 08:00 108 12/29/16 04:00 97.6 107 20 149/87 (107) 97 12/29/16 00:00 97.6 101 18 152/85 (107) 96 12/28/16 22:51 98 12/28/16 20:00 97.4 100 18 166/68 (100) 97 12/28/16 16:34 91 12/28/16 16:00 98.0 92 20 136/78 (97) 98 12/28/16 12:00 97.9 106 20 124/75 (91) 98 12/28/16 08:00 97.7 100 20 137/78 (97) 99 12/28/16 05:30 97.7 106 20 157/90 (112) 99 12/28/16 01:05 97.5 95 20 147/85 (105) 99 12/27/16 20:59 97.6 96 20 148/97 (114) 99 12/27/16 16:00 97.4 93 18 130/75 (93) 98 12/27/16 12:00 97.3 103 18 127/65 (85) 98 (Brennon White) Physical Examination GENERAL: Asleep, responds to voice but quickly drifts back to sleep. No evident distress. SKIN: Warm, dry & intact. HEENT: Normocephalic, atraumatic. PERRLA. NECK: No JVD, trachea midline. CARDIOVASCULAR: S1S2 w/RRR w/o M/G/R, cap refill < 2 sec, radial & pedal pulses 2+ bilaterally, no pedal edema. RESPIRATORY: CTAB w/o W/R/R, equal excursion, nonlaboured, on RA, productive cough. GASTROINTESTINAL: Abdomen soft, nontender, positive bowel sounds. MUSCULOSKELETAL: No evident deformity or clubbing. NEUROLOGICAL: Asleep but quickly drifts back to sleep. Nonverbal. Did not follow commands. Spontaneously moves right upper extremity. (Brennon White) Medical Decision Making Impression and Plan Impression: 1. Traumatic brain injury 2. Respiratory failure, improved 3. Seizures 4. Jane UTI, resolved 5. Occlusive DVT to right cephalic & basilic veins 6. Leukocytosis 7. Sacral decubitus 8. Atrial fibrillation 9. Hypertension 10. Diabetes Patient more lethargic today. T-cell lymphoproliferative disorder per Haematology/Oncology, at present feel patient is not a candidate for treatment. Plan: Medical management per Hospitalist. No active issues for Neurosurgery. Awaiting clearance for medical transport back to [facility]. Appreciate Hospitalist & Palliative Care input. (Brennon White) Attending Statement The exam, history, and the medical decision-making described in the above note were completed with the assistance of the mid-level provider. I reviewed and agree with the findings presented. I attest that I had a [id number] encounter with the patient on the same day, and personally performed and documented my assessment and findings in the medical record. Mental status continues to fluctuate throughout the day. Overall no significant change in neurologic exam over the past week. Continuing anticonvulsant therapy. Continuing PT/OT. Discharge plans in progress (Tony Godfrey MD) Brennon White Dec 30, 2016 11:10 Tony Godfrey MD Dec 30, 2016 19:51
[2016-12-30] MEDS: TAMSULOSIN HCL 0.4 MG CAP PO SCH (20:57)
[2016-12-30] MEDS ORDERED: DILTIAZEM HCL 30 MG TAB PO ONE (23:15)
[2016-12-31] VITALS (9 sets, daily range): BP systolic 121–147; BP diastolic 68–87; PULSE 94–128; RESP 15–24; TEMP 97.5–98.6; O2SAT 92–96
[2016-12-31] MEDS: METOPROLOL TARTRATE 25 MG TAB PO SCH ×3 (06:35→22:03)
[2016-12-31] MEDS: levETIRAcetam 500 MG TAB PO SCH ×3 (06:36→22:02)
[2016-12-31] MEDS: INSULIN NovoLIN REGULAR SUPPLEMENTAL SCALE SQ SCH ×4 (08:00→22:18)
[2016-12-31] MEDS: FUROSEMIDE 40 MG TAB PO SCH (09:29)
[2016-12-31] MEDS: TOLTERODINE TARTRATE 2 MG CAP LA PO SCH (09:29)
[2016-12-31] MEDS: amLODIPine BESYLATE 5 MG TAB PO SCH (09:29)
[2016-12-31] MEDS: POLYETHYLENE GLYCOL 17 GM PKG OG-TUBE SCH ×2 (09:30→21:00)
[2016-12-31] MEDS: DOCUSATE SODIUM 100 MG/10 ML UDC PO SCH ×2 (09:30→22:02)
[2016-12-31] MEDS: MEGESTROL ACETATE SUSP 400 MG/10 ML CUP PO SCH (09:30)
[2016-12-31] MEDS: LANSOPRAZOLE SOLUTAB 30 MG TAB NG SCH (09:30)
[2016-12-31] MEDS: FINASTERIDE 5 MG TAB PO SCH (09:30)
[2016-12-31] MEDS: ARTIFICIAL TEARS OPTH SOLN 15 ML BTL EACH EYE SCH ×3 (09:31→17:50)
[2016-12-31] MEDS: PHENYTOIN SODIUM 100 MG CAP PO SCH ×3 (09:31→17:50)
[2016-12-31] MEDS: CHLORHEXIDINE 0.12% (ORAL KIT) 15 ML CUP MT SCH ×2 (09:31→22:02)
[2016-12-31] MEDS: INSULIN DETEMIR 100 UNITS/ML VIAL SQ SCH ×2 (09:32→22:07)
[2016-12-31] MEDS: SODIUM CHLORIDE 0.9% FLUSH 10 ML FLUSH IVF SCH (09:32)
[2016-12-31] MEDS: SODIUM CHLORIDE 0.9% FLUSH 10 ML FLUSH IV FLUSH SCH ×2 (09:32→22:02)
--- NOTE | 2016-12-31 12:25 | HHI.PR ---
Subjective Remarks awake, eyes openend to call of name no meaningful interaction total care d/w staff- sheridan 75% this am for breakfast Objective Vitals Vital Signs Date Time Temp Pulse Resp B/P (MAP) Pulse Ox O2 Delivery O2 Flow Rate FiO2 12/31/16 11:14 115 12/31/16 08:00 97.5 108 15 147/87 (107) 94 12/31/16 06:05 115 12/31/16 04:00 98.2 112 24 121/68 (85) 92 12/31/16 00:00 98.3 128 24 132/71 (91) 92 12/30/16 20:00 98.3 127 18 130/72 (91) 91 12/30/16 16:23 97.6 114 20 134/82 (99) 91 I/O 12/30/16 12/30/16 12/30/16 12/31/16 12/31/16 12/31/16 07:00 15:00 23:00 07:00 15:00 23:00 Intake Total 240 ml Output Total 400 ml 250 ml 250 ml 150 ml Balance -400 ml -10 ml -250 ml -150 ml Intake Oral 240 ml Output Urine Total 400 ml 250 ml 250 ml 150 ml # Bowel Movements 2 1 2 1 Imaging Last Impressions Brain MRI 12/13/16 0000 Signed Impressions: Service Date/Time: Tuesday, December 13, 2016 12:20 - CONCLUSION: 1. The examination demonstrates multiple small areas of intraparenchymal and extra-axial hemorrhage as described above. These areas are more apparent on the patient's MRI examination than on the CT. Direct comparison is made. The areas of edema and hemorrhage appear similar though they are isointense on the CT. 2. 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 There is cortical atrophy. Anthony Burns MD Chest X-Ray 12/04/16 0000 Signed Impressions: Service Date/Time: November 11:58 - CONCLUSION: Improving aeration. Lonnie Blanchard MD Upper Extremity Ultrasound 12/02/16 0000 Signed Impressions: Service Date/Time: Saturday, December 03, 2016 00:53 - CONCLUSION: 1. Occlusive DVT in the cephalic and basilic vein on the right. Alex Goode MD Head CT 12/01/16 0000 Signed Impressions: Service Date/Time: Thursday, December 01, 2016 13:14 - CONCLUSION: Evolving intracranial hemorrhagic foci as above, both intra-axial and extra-axial. Jesus Lee MD Modified Barium Swallow 11/30/16 0000 Signed Impressions: Service Date/Time: Wednesday, November 30, 2016 00:00 - CONCLUSION: Please refer to speech pathology report for full details. Lonnie Cook MD Transcranial Doppler Study Complete 11/17/16 0000 Signed Impressions: Service Date/Time: Thursday, November 17, 2016 10:03 - CONCLUSION: 1. Nondiagnostic examination due to poor transcranial windows. Konstantin Dash MD Abdomen X-Ray 11/12/16 0000 Signed Impressions: Service Date/Time: Saturday, November 12, 2016 08:23 - CONCLUSION: 1. Gastric tube in good position. 2. Probable right renal stones. Narayan Coulter MD Cervical Spine CT 11/09/161950 Signed Impressions: Service Date/Time: Wednesday, November 09, 2016 20:14 - CONCLUSION: Negative trauma CT. 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, completions manager when hands held anicteric no nuchal rigidity decreased breath sounds, no rales or wheezes sinus on exam and on telemetry today abdomen soft, nontender extremities no edema prabhakar in place moves all extremities spontaneously Date of Insertion: Dec 17, 2016 Date of Insertion: Nov 12, 2016 Line: Central Venous Catheter Side: Right Location: Internal, Jugular A/P Problem List: (1) Subdural hematoma ICD Code: I62.00 - Nontraumatic subdural hemorrhage, unspecified Status: Acute (2) Diabetes ICD Code: E11.9 - Type 2 diabetes mellitus without complications Status: Chronic (3) Leukocytosis ICD Code: D72.829 - Elevated white blood cell count, unspecified Status: Acute (4) HTN (hypertension) ICD Code: I10 - Essential (primary) hypertension Status: Chronic (5) Dysphagia ICD Code: R13.10 - Dysphagia, unspecified (6) Urinary tract infection ICD Code: N39.0 - Urinary tract infection, site not specified Assessment and Plan 80 y/o with a history of HTN, DM, and BPH presented to the ED after a fall at home, with a LOC for 10-15 mins. 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 Ordered other testing R/O other bone marrow abnormality. Follow results. - Blood cultures no growth in 5 days. Off antibiotics. - Awaiting results of TCR gene rearrangement studies from pathology. - Avoid unnecessary blood draws Respiratory insufficiency - resolved - Chest x-ray with improvement in aeration - Continue CPT - Schedule and DuoNeb when necessary and maintain oxygen saturation above 92% - Improving aeration with CXR - Off NC, tolerating RA - out of bed to chair daily- d/w staff- 12/29 Atrial fibrillation- in SR this am Hypertension - Continue with Lopressor 25mg TID - better rate control - continue to monitor and adjust on Lasix po 40 mg daily on Amlodipine 5 mg daily - Oral anticoagulation contraindicated secondary to intracranial bleed - Monitor BP Trend, HR - place on telemetry Decubitus ulcer, DTI sacral area - Continue Santyl - Wound care following. Recommends mable thick coverage of Santyl ointment to wound bed on sacral area and cover with Slightly moistened Maxorb II (Calcium alginate) dressing. Cover with ABD pad secured with tape or cover with bordered gauze. - Repositioning every 2 hour Acute urinary retention History of BPH -pers staff failed voiding trial x 3- last placed 12/17 - Continue with Flomax, Detrol and Proscar - Prabhakar care- keep prabhakar Diabetes mellitus - hemoglobin A1c 6.0 - BS reviewed 200s- increase Levemir back up to 10 units bid - Monitor accucheck- ff blood sugars Occlusive DVT in cephalic vein right upper extremity - Hematology consultation appreciated however oral anticoagulation contraindicated - Avoid IV access RUE Dysphagia secondary to intracranial hemorrhage - Barium swallow study normal - Reassess by speech for swallowing evaluation. - will continue to ff along with ys Recommends pure diet, nectar thickened consistency liquids. Speech therapist ff - Aspiration precaution Generalized weakness, prolonged hospitalization - Encourage family to do ROM exercises with patient while in bed. Needs to be aggressive activity, OOB- d/w staff - out of bed to chair Urinary tract infection, resolved - off antibiotics - Plan for voiding trial when more awake and active. this week Prophylaxis GI - lansoprazole DVT - SCD/pharmacological prophylaxis when okay with neurosurgery Discharge Planning Patient's family states that they are waiting word from the embassy regarding transportation Problem Qualifiers (1) HTN (hypertension): Qualified Codes: I10 - Essential (primary) hypertension Zuleyka Rashid MD Dec 31, 2016 12:25
[2016-12-31] MEDS: MUPIROCIN 2% CREAM 15 GM TOPICAL SCH ×2 (15:05→22:07)
[2016-12-31] MEDS: COLLAGENASE OINT 30 GM TUBE TOPICAL SCH ×2 (15:05)
[2016-12-31 16:12] LABS: BICARBONATE 27.7 MEQ/L (21.0-32.0); POTASSIUM 3.3 MEQ/L (3.5-5.1)
--- NOTE | 2016-12-31 20:43 | HHI.NSPN ---
History Chief Complaint: Unable to obtain due to patient's clinical condition. Interval History Awake and alert today. Nursing staff reports no new problems Exam Results Vital Signs Date Time Temp Pulse Resp B/P (MAP) Pulse Ox O2 Delivery O2 Flow Rate FiO2 12/31/16 16:00 97.5 98 15 134/85 (101) 96 Intake and Output 12/31/16 12/31/16 01/01/17 08:00 16:00 00:00 Output Total 150 ml 300 ml Balance -150 ml -300 ml Physical Examination GENERAL: Asleep, responds to voice but quickly drifts back to sleep. No evident distress. SKIN: Warm, dry & intact. HEENT: Normocephalic, atraumatic. PERRLA. NECK: No JVD, trachea midline. CARDIOVASCULAR: S1S2 w/RRR w/o M/G/R, cap refill < 2 sec, radial & pedal pulses 2+ bilaterally, no pedal edema. RESPIRATORY: Mild productive cough, some upper airway congestion, but lower lungs clear to auscultation GASTROINTESTINAL: Abdomen soft, nontender, positive bowel sounds. MUSCULOSKELETAL: No evident deformity or clubbing. NEUROLOGICAL: Mild to moderate lethargy His daughter at bedside indicates that he has been awake for much of the evening Nonverbal. Did not follow commands. Spontaneously moves right upper extremity. Medical Decision Making Impression and Plan Impression/plan: 1. Traumatic brain injury. Most recent CT scan stable with resolving contusions, stable mild to moderate subdural fluid collections without significant mass effect. Mental status fluctuating throughout the day but overall stable over the past week. 2. UTI. Treated. 12/13/16 follow-up urine culture growth at 48 hours 3. Hypertension, atrial fibrillation. Remains on Lopressor. 3. Recent seizures. He remains on Keppra and Dilantin. 4. Sacral decubitus ulcer. Continuing decubitus precautions, wound care, Santyl 5. Leukocytosis. Hematology following-workup in progress. 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 Diabetes. Remains on insulin sliding scale. 7. Respiratory insufficiency. Improved. Stable on room air Family is continuing efforts to have the patient transferred back to [facility]. Patient's family has indicated that they are waiting word from the embassy regarding transportation Stable neurologic status. Patient's family indicates that he continues to converse with them occasionally. Tony Godfrey MD Dec 31, 2016 20:43
[2016-12-31] MEDS ORDERED: ACETAMINOPHEN 650 MG/20.3 ML UDC PO PRN (21:30)
[2016-12-31] MEDS: TAMSULOSIN HCL 0.4 MG CAP PO SCH (22:03)
[2017-01-01] VITALS (9 sets, daily range): BP systolic 124–152; BP diastolic 64–84; PULSE 80–102; RESP 16–22; TEMP 97.4–98.8; O2SAT 94–98
[2017-01-01] MEDS: levETIRAcetam 500 MG TAB PO SCH ×3 (05:50→21:37)
[2017-01-01] MEDS: METOPROLOL TARTRATE 25 MG TAB PO SCH (05:50)
[2017-01-01] MEDS: CHLORHEXIDINE 0.12% (ORAL KIT) 15 ML CUP MT SCH ×2 (08:00→20:00)
[2017-01-01] MEDS: INSULIN NovoLIN REGULAR SUPPLEMENTAL SCALE SQ SCH ×4 (08:00→21:00)
[2017-01-01] MEDS: INSULIN DETEMIR 100 UNITS/ML VIAL SQ SCH ×2 (08:44→21:00)
[2017-01-01] MEDS: FINASTERIDE 5 MG TAB PO SCH (08:45)
[2017-01-01] MEDS: PHENYTOIN SODIUM 100 MG CAP PO SCH ×3 (08:45→17:33)
[2017-01-01] MEDS: FUROSEMIDE 40 MG TAB PO SCH (08:45)
[2017-01-01] MEDS: TOLTERODINE TARTRATE 2 MG CAP LA PO SCH (08:45)
[2017-01-01] MEDS: MEGESTROL ACETATE SUSP 400 MG/10 ML CUP PO SCH (08:45)
[2017-01-01] MEDS: LANSOPRAZOLE SOLUTAB 30 MG TAB NG SCH (08:45)
[2017-01-01] MEDS: ARTIFICIAL TEARS OPTH SOLN 15 ML BTL EACH EYE SCH ×3 (08:47→18:00)
[2017-01-01] MEDS: amLODIPine BESYLATE 5 MG TAB PO SCH (08:49)
[2017-01-01] MEDS: COLLAGENASE OINT 30 GM TUBE TOPICAL SCH ×2 (09:00→12:53)
[2017-01-01] MEDS: DOCUSATE SODIUM 100 MG/10 ML UDC PO SCH ×2 (09:00→21:35)
[2017-01-01] MEDS: SODIUM CHLORIDE 0.9% FLUSH 10 ML FLUSH IVF SCH (09:00)
[2017-01-01] MEDS: SODIUM CHLORIDE 0.9% FLUSH 10 ML FLUSH IV FLUSH SCH ×2 (09:00→21:37)
[2017-01-01] MEDS: MUPIROCIN 2% CREAM 15 GM TOPICAL SCH ×2 (09:00→21:39)
[2017-01-01] MEDS: POLYETHYLENE GLYCOL 17 GM PKG OG-TUBE SCH ×2 (09:00→21:37)
--- NOTE | 2017-01-01 11:27 | HHI.NSPN ---
([facility] MACIAS) History Chief Complaint: Unable to obtain due to patient's clinical condition. ([facility] MACIAS) Interval History 12/07: Patient opens eyes to voice, smiles, questionable followed simple command left UE x one, not following commands other extremities. Not verbalizing. 12/13: Patient reported to be sleeping a little better at night. Still lethargic much of the day. According to family he is saying a few words and responds to questions, remains confused, following a few commands occasionally. 12/15: Patient extremely lethargic. No response to verbal stimulation but did withdraw upper extremities and open eyes to localised noxious stimulation. Slight moaning but no other response. 12/16: The patient is lethargic but less so today. He was noted to open his eyes and move both upper extremities spontaneously. He did respond to some commands weakly but did not verbalise. 12/19: This morning the patient is seen in rounds with Dr. Godfrey. The patient is awake and alert and did track with his eyes. 12/23: When seen this morning the patient's daughter is feeding him. He does spontaneously open his eyes and move the upper extremities. He does appear to track with the eyes. 12/25: The patient is awake this morning and moving the right upper extremity spontaneously. He is watching Nursing and his family as they move about in the room. The qtffumln-py-hyu reports that the embassy is to call the hospital once everything is ready for the patient to be transferred back to [facility] or if they need any further information. She says her , the patient's son, spoke with the embassy yesterday. 12/29: The patient is asleep but awakens to verbal stimulation. He spontaneously moves both upper extremities and follows some commands on the right side. 12/30: This morning the patient is lethargic. He briefly opens his eyes but does not follow commands. His daughter/fqibgrzm-lf-iwe reports that he was awake all night due to his coughing. 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 01/01: The patient is asleep when seen. He does awaken to voice and moves the upper extremities spontaneously. His daughter/fxmmxnwu-ke-kkm reports that he does say a few words and at times it seems he is searching for the word he wants but is unable to find it. (Brennon White) System Review Comments Unable to obtain due to patient's clinical condition. (Brennon White) Exam Results 12/30/16 12/30/16 12/31/16 12/31/16 01/01/17 01/01/17 06:00 18:00 06:00 18:00 06:00 18:00 Intake Total 240 ml Output Total 400 ml 250 ml 250 ml 150 ml 301 ml 350 ml Balance -400 ml -10 ml -250 ml -150 ml -301 ml -350 ml Intake Oral 240 ml Output Urine Total 400 ml 250 ml 250 ml 150 ml 300 ml 350 ml Stool Total 1 ml # Bowel Movements 2 1 2 1 Vital Signs Date Time Temp Pulse Resp B/P (MAP) Pulse Ox O2 Delivery O2 Flow Rate FiO2 01/01/17 08:00 97.4 91 16 136/84 (101) 95 01/01/17 05:39 102 01/01/17 04:00 97.5 97 22 152/72 (98) 97 01/01/17 00:00 97.5 87 22 129/75 (93) 94 12/31/16 20:00 98.2 94 18 133/73 (93) 96 12/31/16 16:00 97.5 98 15 134/85 (101) 96 12/31/16 15:57 95 12/31/16 12:00 98.6 101 15 129/72 (91) 93 12/31/16 11:14 115 12/31/16 08:00 97.5 108 15 147/87 (107) 94 12/31/16 06:05 115 12/31/16 04:00 98.2 112 24 121/68 (85) 92 12/31/16 00:00 98.3 128 24 132/71 (91) 92 12/30/16 20:00 98.3 127 18 130/72 (91) 91 12/30/16 16:23 97.6 114 20 134/82 (99) 91 12/30/16 12:20 97.5 109 20 132/82 (99) 97 12/30/16 10:53 100 12/30/16 07:56 97.7 96 19 136/85 (102) 99 12/30/16 06:00 95 12/30/16 05:10 98.8 107 20 170/86 (114) 96 12/30/16 01:03 97.8 95 20 141/87 (105) 97 12/29/16 21:11 97.6 100 20 146/88 (107) 97 12/29/16 16:00 97.6 89 18 137/83 (101) 97 12/29/16 15:00 101 12/29/16 12:00 97.3 105 18 134/77 (96) 96 (Brennon White) Physical Examination GENERAL: Asleep, responds to voice and stays awake. No evident distress. HEENT: Normocephalic, atraumatic. PERRLA. NECK: No JVD, trachea midline. CARDIOVASCULAR: S1S2 w/RRR w/o M/G/R, cap refill < 2 sec, radial & pedal pulses 2+ bilaterally, no pedal edema. RESPIRATORY: Essentially clear bilaterally, equal excursion, nonlaboured, some cough, on RA. GASTROINTESTINAL: Abdomen soft, nontender, positive bowel sounds. MUSCULOSKELETAL: No evident deformity or clubbing. NEUROLOGICAL: Mild lethargy. Opens eyes to voice. Nonverbal. Does not follow commands. Spontaneously moves RUE>LUE. (Brennon White) Lab, Micro, Other Results Laboratory Tests Test 12/31/16 14:50 Blood Urea Nitrogen 40 MG/DL Creatinine 0.82 MG/DL Random Glucose 165 MG/DL Calcium Level 9.7 MG/DL Sodium Level 146 MEQ/L Potassium Level 3.3 MEQ/L Chloride Level 109 MEQ/L Carbon Dioxide Level 27.7 MEQ/L Anion Gap 9 MEQ/L Estimat Glomerular Filtration Rate 90 ML/MIN Phenytoin (Dilantin) Level 6.4 MCG/ML (Brennon White) Medical Decision Making Impression and Plan Impression/plan: 1. Traumatic brain injury. Most recent CT scan stable with resolving contusions, stable mild to moderate subdural fluid collections without significant mass effect. Mental status fluctuating throughout the day but overall stable over the past week. 2. Jane UTI. Treated. 12/13/16 follow-up urine culture growth at 48 hours 3. Hypertension, atrial fibrillation. Remains on Lopressor. 3. Recent seizures. He remains on Keppra and Dilantin. 4. Sacral decubitus ulcer. Continuing decubitus precautions, wound care, Santyl 5. Leukocytosis. Hematology following-workup in progress. 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 6. Diabetes. Remains on insulin sliding scale. 7. Respiratory insufficiency. Improved. Stable on room air Family is continuing efforts to have the patient transferred back to [facility]. Patient's family has indicated that they are waiting word from the embassy regarding transportation Stable neurologic status. Patient's family indicates that he continues to converse with them occasionally. Medical management per Hospitalist. No active issues for Neurosurgery. (Brennon White) Attending Statement The exam, history, and the medical decision-making described in the above note were completed with the assistance of the mid-level provider. I reviewed and agree with the findings presented. I attest that I had a [id number] encounter with the patient on the same day, and personally performed and documented my assessment and findings in the medical record. No changes on my examination 01/01/17. Mental status continues to fluctuate. Tolerating diet relatively well Transfer efforts and progress (Tony Godfrey MD) Brennon White Jan 01, 2017 11:27 Tony Godfrey MD Jan 03, 2017 21:42
--- NOTE | 2017-01-01 13:08 | HHI.PR ---
Subjective Remarks awake and alert, smile and stated his name seen with daughter at bedside- taking po well- needs to be fed more interactive on exam today Objective Vitals Vital Signs Date Time Temp Pulse Resp B/P (MAP) Pulse Ox O2 Delivery O2 Flow Rate FiO2 01/01/17 08:00 97.4 91 16 136/84 (101) 95 01/01/17 07:00 101 01/01/17 05:39 102 01/01/17 04:00 97.5 97 22 152/72 (98) 97 01/01/17 00:00 97.5 87 22 129/75 (93) 94 12/31/16 20:00 98.2 94 18 133/73 (93) 96 12/31/16 16:00 97.5 98 15 134/85 (101) 96 12/31/16 15:57 95 I/O 12/31/16 12/31/16 12/31/16 01/01/17 01/01/17 01/01/17 07:00 15:00 23:00 07:00 15:00 23:00 Output Total 150 ml 300 ml 351 ml Balance -150 ml -300 ml -351 ml Output Urine Total 150 ml 300 ml 350 ml Stool Total 1 ml # Bowel Movements 1 Result Diagram: 12/31/16 1450 Imaging Last Impressions Brain MRI 12/13/16 0000 Signed Impressions: Service Date/Time: Tuesday, December 13, 2016 12:20 - CONCLUSION: 1. The examination demonstrates multiple small areas of intraparenchymal and extra-axial hemorrhage as described above. These areas are more apparent on the patient's MRI examination than on the CT. Direct comparison is made. The areas of edema and hemorrhage appear similar though they are isointense on the CT. 2. 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 There is cortical atrophy. Anthony Burns MD Chest X-Ray 12/04/16 0000 Signed Impressions: Service Date/Time: November 11:58 - CONCLUSION: Improving aeration. Lonnie Blanchard MD Upper Extremity Ultrasound 12/02/16 0000 Signed Impressions: Service Date/Time: Saturday, December 03, 2016 00:53 - CONCLUSION: 1. Occlusive DVT in the cephalic and basilic vein on the right. Alex Goode MD Head CT 12/01/16 0000 Signed Impressions: Service Date/Time: Thursday, December 01, 2016 13:14 - CONCLUSION: Evolving intracranial hemorrhagic foci as above, both intra-axial and extra-axial. Jesus Lee MD Modified Barium Swallow 11/30/16 0000 Signed Impressions: Service Date/Time: Wednesday, November 30, 2016 00:00 - CONCLUSION: Please refer to speech pathology report for full details. Lonnie Cook MD Transcranial Doppler Study Complete 11/17/16 Signed Impressions: Service Date/Time: Thursday, November 17, 2016 10:03 - CONCLUSION: 1. Nondiagnostic examination due to poor transcranial windows. Konstantin Dash MD Abdomen X-Ray 11/12/16 Signed Impressions: Service Date/Time: Saturday, November 12, 2016 08:23 - CONCLUSION: 1. Gastric tube in good position. 2. Probable right renal stones. Narayan Coulter MD Cervical Spine CT 11/09/161950 Signed Impressions: Service Date/Time: Wednesday, November 09, 2016 20:14 - CONCLUSION: Negative trauma CT. 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 no nuchal rigidity decreased breath sounds, no rales or wheezes sinus on exam abdomen soft, nontender extremities no edema prabhakar in place moves all extremities spontaneously Date of Insertion: Dec 17, 2016 Date of Insertion: Nov 12, 2016 Line: Central Venous Catheter Side: Right Location: Internal, Jugular A/P Problem List: (1) Subdural hematoma ICD Code: I62.00 - Nontraumatic subdural hemorrhage, unspecified Status: Acute (2) Diabetes ICD Code: E11.9 - Type 2 diabetes mellitus without complications Status: Chronic (3) Leukocytosis ICD Code: D72.829 - Elevated white blood cell count, unspecified Status: Acute (4) HTN (hypertension) ICD Code: I10 - Essential (primary) hypertension Status: Chronic (5) Dysphagia ICD Code: R13.10 - Dysphagia, unspecified (6) Urinary tract infection ICD Code: N39.0 - Urinary tract infection, site not specified Assessment and Plan 80 y/o with a history of HTN, DM, and BPH presented to the ED after a fall at home, with a LOC for 10-15 mins. 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 Ordered other testing R/O other bone marrow abnormality. - Blood cultures no growth in 5 days. Off antibiotics. - Awaiting results of TCR gene rearrangement studies from pathology. - Avoid unnecessary blood draws Respiratory insufficiency - resolved - Chest x-ray with improvement in aeration - Continue CPT - Schedule and DuoNeb when necessary and maintain oxygen saturation above 92% - Improving aeration with CXR - Off NC, tolerating RA - out of bed to chair daily- d/w staff- 12/29 Atrial fibrillation- in SR now HRlow 100 Hypertension - Con Lopressor 25mg TID- increase to keep rate less than 100 - increase to 50 mg po q 8 - continue to monitor and adjust on Lasix po 40 mg daily on Amlodipine 5 mg daily - Oral anticoagulation contraindicated secondary to intracranial bleed - Monitor BP Trend, HR - place on telemetry Decubitus ulcer, DTI sacral area - Continue Santyl - Wound care following. Recommends mable thick coverage of Santyl ointment to wound bed on sacral area and cover with Slightly moistened Maxorb II (Calcium alginate) dressing. Cover with ABD pad secured with tape or cover with bordered gauze. - Repositioning every 2 hour Acute urinary retention History of BPH Acute Kidney injury- likely pre renal hypokalemia -pers staff failed voiding trial x 3- last placed 12/17 - Continue with Flomax, Detrol and Proscar - Prabhakar care- keep prabhakar -start IVF with KCL and monitor Diabetes mellitus - hemoglobin A1c 6.0 - BS reviewed 200s- increase Levemir back up to 10 units bid - Monitor accucheck- ff blood sugars Occlusive DVT in cephalic vein right upper extremity - Hematology consultation appreciated however oral anticoagulation contraindicated - Avoid IV access RUE Dysphagia secondary to intracranial hemorrhage - Barium swallow study normal - Reassess by speech for swallowing evaluation. - will continue to ff along with ys Recommends pure diet, nectar thickened consistency liquids. Speech therapist ff - Aspiration precaution Generalized weakness, prolonged hospitalization - Encourage family to do ROM exercises with patient while in bed. Needs to be aggressive activity, OOB- d/w staff - out of bed to chair Urinary tract infection, resolved - off antibiotics - Plan for voiding trial when more awake and active. this week Prophylaxis GI - lansoprazole DVT - SCD/pharmacological prophylaxis when okay with neurosurgery Discharge Planning Patient's family states that they are waiting word from the embassy regarding transportation Problem Qualifiers (1) HTN (hypertension): Qualified Codes: I10 - Essential (primary) hypertension Zuleyka Rashid MD Jan 01, 2017 13:08
[2017-01-01] MEDS: METOPROLOL TARTRATE 50 MG TAB PO SCH ×2 (17:33→21:37)
[2017-01-01] MEDS: 1/2 NS + KCL 20 MEQ INJ 1,000 ML IV SCH (17:48)
[2017-01-01 19:37] LABS: ANION GAP 8 MEQ/L (5-15); AST (GOT) 23 U/L (15-37); BICARBONATE 26.2 MEQ/L (21.0-32.0); BLOOD UREA NITROGEN 33 MG/DL (7-18); CHLORIDE 110 MEQ/L (98-107); GLOMERULAR FILTRATION RATE 134 ML/MIN (>89); POTASSIUM 3.1 MEQ/L (3.5-5.1); SODIUM (NA) 144 MEQ/L (136-145)
[2017-01-01 19:39] LABS: ALT (GPT) 29 U/L (12-78)
[2017-01-01 19:41] LABS: ALKALINE PHOSPHATASE 149 U/L (45-117); TOTAL BILIRUBIN ADULT 0.8 MG/DL (0.2-1.0)
[2017-01-01] MEDS: TAMSULOSIN HCL 0.4 MG CAP PO SCH (21:37)
[2017-01-02] VITALS (8 sets, daily range): BP systolic 113–174; BP diastolic 56–81; PULSE 78–88; RESP 16–19; TEMP 97.2–98; O2SAT 95–98
[2017-01-02] MEDS: METOPROLOL TARTRATE 50 MG TAB PO SCH ×3 (06:19→21:47)
[2017-01-02] MEDS: levETIRAcetam 500 MG TAB PO SCH ×3 (06:19→21:47)
[2017-01-02] MEDS: 1/2 NS + KCL 20 MEQ INJ 1,000 ML IV SCH ×2 (06:24→21:48)
[2017-01-02] MEDS: INSULIN NovoLIN REGULAR SUPPLEMENTAL SCALE SQ SCH ×4 (08:00→21:00)
[2017-01-02] MEDS: CHLORHEXIDINE 0.12% (ORAL KIT) 15 ML CUP MT SCH ×2 (08:00→20:00)
[2017-01-02] MEDS: COLLAGENASE OINT 30 GM TUBE TOPICAL SCH ×2 (09:00)
[2017-01-02] MEDS: SODIUM CHLORIDE 0.9% FLUSH 10 ML FLUSH IVF SCH (09:00)
[2017-01-02] MEDS: ARTIFICIAL TEARS OPTH SOLN 15 ML BTL EACH EYE SCH ×3 (09:00→17:58)
[2017-01-02] MEDS: MUPIROCIN 2% CREAM 15 GM TOPICAL SCH ×2 (09:00→21:48)
[2017-01-02] MEDS: POLYETHYLENE GLYCOL 17 GM PKG OG-TUBE SCH ×2 (09:00→21:47)
[2017-01-02] MEDS: SODIUM CHLORIDE 0.9% FLUSH 10 ML FLUSH IV FLUSH SCH ×2 (09:00→21:47)
[2017-01-02] MEDS: DOCUSATE SODIUM 100 MG/10 ML UDC PO SCH ×2 (09:00→21:47)
[2017-01-02] MEDS: TOLTERODINE TARTRATE 2 MG CAP LA PO SCH (09:13)
[2017-01-02] MEDS: FINASTERIDE 5 MG TAB PO SCH (09:13)
[2017-01-02] MEDS: amLODIPine BESYLATE 5 MG TAB PO SCH (09:13)
[2017-01-02] MEDS: LANSOPRAZOLE SOLUTAB 30 MG TAB NG SCH (09:13)
[2017-01-02] MEDS: FUROSEMIDE 40 MG TAB PO SCH (09:13)
[2017-01-02] MEDS: PHENYTOIN SODIUM 100 MG CAP PO SCH ×3 (09:14→17:56)
[2017-01-02] MEDS: MEGESTROL ACETATE SUSP 400 MG/10 ML CUP PO SCH (09:14)
[2017-01-02] MEDS: INSULIN DETEMIR 100 UNITS/ML VIAL SQ SCH ×2 (09:14→21:00)
--- NOTE | 2017-01-02 09:52 | HHI.PR ---
Subjective Remarks seen with daughter at bedside awake and alert daughter swears that he ate very good for breakfast this am and for dinner last evening Objective Vitals Vital Signs Date Time Temp Pulse Resp B/P (MAP) Pulse Ox O2 Delivery O2 Flow Rate FiO2 01/02/17 09:29 97.5 80 18 144/75 (98) 95 01/02/17 05:15 98.0 87 19 174/81 (112) 98 01/02/17 00:15 97.7 80 19 136/71 (92) 97 01/01/17 21:00 98.8 85 21 124/64 (84) 98 01/01/17 20:30 80 01/01/17 16:00 97.4 97 16 138/72 (94) 98 01/01/17 12:00 97.4 96 16 136/77 (96) 95 I/O 01/01/17 01/01/17 01/01/17 01/02/17 01/02/17 01/02/17 07:00 15:00 23:00 07:00 15:00 23:00 Intake Total 0 ml 300 ml Output Total 351 ml 800 ml 900 ml Balance -351 ml -800 ml -600 ml Intake Oral 0 ml 300 ml Output Urine Total 350 ml 800 ml 900 ml Stool Total 1 ml # Bowel Movements 0 1 Result Diagram: 01/01/17 1900 Imaging Last Impressions Brain MRI 12/13/16 0000 Signed Impressions: Service Date/Time: Tuesday, December 13, 2016 12:20 - CONCLUSION: 1. The examination demonstrates multiple small areas of intraparenchymal and extra-axial hemorrhage as described above. These areas are more apparent on the patient's MRI examination than on the CT. Direct comparison is made. The areas of edema and hemorrhage appear similar though they are isointense on the CT. 2. 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 There is cortical atrophy. Anthony Burns MD Chest X-Ray 12/04/16 0000 Signed Impressions: Service Date/Time: November 11:58 - CONCLUSION: Improving aeration. Lonnie Blanchard MD Upper Extremity Ultrasound 12/02/16 0000 Signed Impressions: Service Date/Time: Saturday, December 03, 2016 00:53 - CONCLUSION: 1. Occlusive DVT in the cephalic and basilic vein on the right. Alex Goode MD Head CT 12/01/16 0000 Signed Impressions: Service Date/Time: Thursday, December 01, 2016 13:14 - CONCLUSION: Evolving intracranial hemorrhagic foci as above, both intra-axial and extra-axial. Jesus Lee MD Modified Barium Swallow 11/30/16 0000 Signed Impressions: Service Date/Time: Wednesday, November 30, 2016 00:00 - CONCLUSION: Please refer to speech pathology report for full details. Lonnie Cook MD Transcranial Doppler Study Complete 11/17/16 0000 Signed Impressions: Service Date/Time: Thursday, November 17, 2016 10:03 - CONCLUSION: 1. Nondiagnostic examination due to poor transcranial windows. Konstantin Dash MD Abdomen X-Ray 11/12/16 0000 Signed Impressions: Service Date/Time: Saturday, November 12, 2016 08:23 - CONCLUSION: 1. Gastric tube in good position. 2. Probable right renal stones. Narayan Coulter MD Cervical Spine CT 11/09/161950 Signed Impressions: Service Date/Time: Wednesday, November 09, 2016 20:14 - CONCLUSION: Negative trauma CT. 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 no nuchal rigidity decreased breath sounds, no rales or wheezes sinus on exam abdomen soft, nontender extremities trace edema prabhakar in place moves all extremities spontaneously Urinary Catheter: Yes Assessment to: Continue Date of Insertion: Dec 17, 2016 Date of Insertion: Nov 12, 2016 Line: Central Venous Catheter Side: Right Location: Internal, Jugular A/P Problem List: (1) Subdural hematoma ICD Code: I62.00 - Nontraumatic subdural hemorrhage, unspecified Status: Acute (2) Diabetes ICD Code: E11.9 - Type 2 diabetes mellitus without complications Status: Chronic (3) Leukocytosis ICD Code: D72.829 - Elevated white blood cell count, unspecified Status: Acute (4) HTN (hypertension) ICD Code: I10 - Essential (primary) hypertension Status: Chronic (5) Dysphagia ICD Code: R13.10 - Dysphagia, unspecified (6) Urinary tract infection ICD Code: N39.0 - Urinary tract infection, site not specified Assessment and Plan 80 y/o with a history of HTN, DM, and BPH presented to the ED after a fall at home, with a LOC for 10-15 mins. 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 Ordered other testing R/O other bone marrow abnormality. - Blood cultures no growth in 5 days. Off antibiotics. - Awaiting results of TCR gene rearrangement studies from pathology. - Avoid unnecessary blood draws Respiratory insufficiency - resolved - Chest x-ray with improvement in aeration - Continue CPT - Schedule and DuoNeb when necessary and maintain oxygen saturation above 92% - Improving aeration with CXR - Off NC, tolerating RA - out of bed to chair daily- d/w staff- 12/29 Atrial fibrillation- in SR now H Hypertension - Con Lopressor- keep rate less than 1100. 50 mg po q 8 - continue to monitor and adjust on Lasix po 40 mg daily on Amlodipine 5 mg daily - Oral anticoagulation contraindicated secondary to intracranial bleed - Monitor BP Trend, HR - place on telemetry Decubitus ulcer, DTI sacral area - Continue Santyl - Wound care following. Recommends mable thick coverage of Santyl ointment to wound bed on sacral area and cover with Slightly moistened Maxorb II (Calcium alginate) dressing. Cover with ABD pad secured with tape or cover with bordered gauze. - Repositioning every 2 hour Acute urinary retention History of BPH Acute Kidney injury- likely pre renal hypokalemia -pers staff failed voiding trial x 3- last placed 12/17 - Continue with Flomax, Detrol and Proscar - Prabhakar care- keep prabhakar Diabetes mellitus - hemoglobin A1c 6.0 - BS reviewed on Levemir back up to 10 units bid - Monitor accucheck- ff blood sugars Occlusive DVT in cephalic vein right upper extremity - Hematology consultation appreciated however oral anticoagulation contraindicated - Avoid IV access RUE Dysphagia secondary to intracranial hemorrhage - Barium swallow study normal - Reassess by speech for swallowing evaluation. - will continue to ff along with ys Recommends pure diet, nectar thickened consistency liquids. Speech therapist ff - Aspiration precaution -per daughter eating very well Generalized weakness, prolonged hospitalization - Encourage family to do ROM exercises with patient while in bed. Needs to be aggressive activity, OOB- d/w staff - out of bed to chair Urinary tract infection, resolved - off antibiotics - Plan for voiding trial when more awake and active. this week Prophylaxis GI - lansoprazole DVT - SCD/pharmacological prophylaxis when okay with neurosurgery Discharge Planning Patient's family states that they are waiting word from the embassy regarding transportation Problem Qualifiers (1) HTN (hypertension): Qualified Codes: I10 - Essential (primary) hypertension Zuleyka Rashid MD Jan 02, 2017 09:52
[2017-01-02 14:46] LABS: POTASSIUM 3.3 MEQ/L (3.5-5.1)
[2017-01-02] MEDS ORDERED: POTASSIUM BICARBONATE 25 MEQ EFFERVESCENT TAB PO ONE (19:00)
--- NOTE | 2017-01-02 20:34 | HHI.NSPN ---
History Chief Complaint: Unable to obtain due to patient's clinical condition. Interval History Awake and alert today. Nursing staff reports no new problems Exam Results Vital Signs Date Time Temp Pulse Resp B/P (MAP) Pulse Ox O2 Delivery O2 Flow Rate FiO2 01/02/17 17:50 97.5 78 16 113/56 (75) 98 Intake and Output 01/02/17 01/02/17 01/03/17 08:00 16:00 00:00 Intake Total 300 ml 240 ml Output Total 900 ml 675 ml Balance -600 ml -435 ml Physical Examination GENERAL: Asleep, responds to voice and stays awake. No evident distress. HEENT: Normocephalic, atraumatic. PERRLA. NECK: No JVD, trachea midline. CARDIOVASCULAR: S1S2 w/RRR w/o M/G/R, cap refill < 2 sec, radial & pedal pulses 2+ bilaterally, no pedal edema. RESPIRATORY: Clear, nonlabored GASTROINTESTINAL: Abdomen soft, positive bowel sounds. MUSCULOSKELETAL: No evident deformity or clubbing. NEUROLOGICAL: He is sleeping tonight when I entered the room. No new problems reported per nursing. Lab, Micro, Other Results Laboratory Tests Test 01/02/17 13:55 Blood Urea Nitrogen 27 MG/DL Creatinine 0.53 MG/DL Random Glucose 148 MG/DL Calcium Level 8.7 MG/DL Sodium Level 144 MEQ/L Potassium Level 3.3 MEQ/L Chloride Level 110 MEQ/L Carbon Dioxide Level 28.0 MEQ/L Anion Gap 6 MEQ/L Estimat Glomerular Filtration Rate 148 ML/MIN Medical Decision Making Impression and Plan Impression/plan: 1. Traumatic brain injury. Most recent CT scan stable with resolving contusions, stable mild to moderate subdural fluid collections without significant mass effect. Mental status fluctuating throughout the day but overall stable over the past week. 2. UTI. Treated. 12/13/16 follow-up urine culture growth at 48 hours 3. Hypertension, atrial fibrillation. Remains on Lopressor. 3. Recent seizures. He remains on Keppra and Dilantin. 4. Sacral decubitus ulcer. Continuing decubitus precautions, wound care, Santyl 5. Leukocytosis. Hematology following. 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 Diabetes. Remains on insulin sliding scale. 7. Respiratory insufficiency. Improved. Stable on room air 8. Disposition. Efforts to transfer patient back to [facility] continue Tony Godfrey MD Jan 02, 2017 20:34
[2017-01-02] MEDS: TAMSULOSIN HCL 0.4 MG CAP PO SCH (21:47)
[2017-01-03] VITALS (8 sets, daily range): BP systolic 124–142; BP diastolic 60–76; PULSE 75–91; RESP 16–20; TEMP 97.7–98.6; O2SAT 95–96
[2017-01-03] MEDS: levETIRAcetam 500 MG TAB PO SCH ×3 (06:12→21:50)
[2017-01-03] MEDS: METOPROLOL TARTRATE 50 MG TAB PO SCH ×3 (06:13→21:50)
[2017-01-03] MEDS: CHLORHEXIDINE 0.12% (ORAL KIT) 15 ML CUP MT SCH ×2 (08:00→21:55)
[2017-01-03] MEDS: INSULIN NovoLIN REGULAR SUPPLEMENTAL SCALE SQ SCH ×4 (08:00→21:00)
[2017-01-03] MEDS: ARTIFICIAL TEARS OPTH SOLN 15 ML BTL EACH EYE SCH ×3 (08:53→17:47)
[2017-01-03] MEDS: POLYETHYLENE GLYCOL 17 GM PKG OG-TUBE SCH ×2 (08:55→21:00)
[2017-01-03] MEDS: FINASTERIDE 5 MG TAB PO SCH (08:56)
[2017-01-03] MEDS: MEGESTROL ACETATE SUSP 400 MG/10 ML CUP PO SCH (08:57)
[2017-01-03] MEDS: amLODIPine BESYLATE 5 MG TAB PO SCH (08:59)
[2017-01-03] MEDS: LANSOPRAZOLE SOLUTAB 30 MG TAB NG SCH (08:59)
[2017-01-03] MEDS: PHENYTOIN SODIUM 100 MG CAP PO SCH ×3 (08:59→17:44)
[2017-01-03] MEDS: TOLTERODINE TARTRATE 2 MG CAP LA PO SCH (08:59)
[2017-01-03] MEDS: FUROSEMIDE 40 MG TAB PO SCH (08:59)
[2017-01-03] MEDS: SODIUM CHLORIDE 0.9% FLUSH 10 ML FLUSH IV FLUSH SCH ×2 (09:00→21:56)
[2017-01-03] MEDS: COLLAGENASE OINT 30 GM TUBE TOPICAL SCH ×2 (09:00)
[2017-01-03] MEDS: MUPIROCIN 2% CREAM 15 GM TOPICAL SCH ×2 (09:00→21:00)
[2017-01-03] MEDS: INSULIN DETEMIR 100 UNITS/ML VIAL SQ SCH ×2 (09:00→21:00)
[2017-01-03] MEDS: SODIUM CHLORIDE 0.9% FLUSH 10 ML FLUSH IVF SCH (09:00)
[2017-01-03] MEDS: DOCUSATE SODIUM 100 MG/10 ML UDC PO SCH ×2 (09:00→21:00)
[2017-01-03 11:54] LABS: BICARBONATE 24.7 MEQ/L (21.0-32.0); POTASSIUM 3.9 MEQ/L (3.5-5.1)
[2017-01-03] MEDS: 1/2 NS + KCL 20 MEQ INJ 1,000 ML IV SCH (12:30)
--- NOTE | 2017-01-03 13:23 | HHI.NSPN ---
(Brennon WhitePrateek GILBERTO) History Chief Complaint: Feels tired. (Brennon White) Interval History 12/07: Patient opens eyes to voice, smiles, questionable followed simple command left UE x one, not following commands other extremities. Not verbalizing. 12/13: Patient reported to be sleeping a little better at night. Still lethargic much of the day. According to family he is saying a few words and responds to questions, remains confused, following a few commands occasionally. 12/15: Patient extremely lethargic. No response to verbal stimulation but did withdraw upper extremities and open eyes to localised noxious stimulation. Slight moaning but no other response. 12/16: The patient is lethargic but less so today. He was noted to open his eyes and move both upper extremities spontaneously. He did respond to some commands weakly but did not verbalise. 12/19: This morning the patient is seen in rounds with Dr. Godfrey. The patient is awake and alert and did track with his eyes. 12/23: When seen this morning the patient's daughter is feeding him. He does spontaneously open his eyes and move the upper extremities. He does appear to track with the eyes. 12/25: The patient is awake this morning and moving the right upper extremity spontaneously. He is watching Nursing and his family as they move about in the room. The [id number]-[id number] reports that the embassy is to call the hospital once everything is ready for the patient to be transferred back to [facility] or if they need any further information. She says her , the patient's son, spoke with the embassy yesterday. 12/29: The patient is asleep but awakens to verbal stimulation. He spontaneously moves both upper extremities and follows some commands on the right side. 12/30: This morning the patient is lethargic. He briefly opens his eyes but does not follow commands. His daughter/[id number]-dn-nwj reports that he was awake all night due to his coughing. 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 01/01: The patient is asleep when seen. He does awaken to voice and moves the upper extremities spontaneously. His daughter/sxizvlec-jp-qey reports that he does say a few words and at times it seems he is searching for the word he wants but is unable to find it. 01/03: The patient is awake and alert when seen and readily interacts. He reaches his hand out to shake mine. He is verbalising although his voice is slightly gravely. He does speak some in Icelandic. (Brennon White) System Review Comments Constitutional: Feels tired. Remainder of ROS is negative. (Brennon White) Exam Results 01/01/17 01/01/17 01/02/17 01/02/17 01/03/17 01/03/17 06:00 18:00 06:00 18:00 06:00 18:00 Intake Total 300 ml 240 ml 450 ml Output Total 301 ml 350 ml 1700 ml 675 ml 1000 ml Balance -301 ml -350 ml -1400 ml -435 ml -550 ml Intake Oral 300 ml 240 ml 450 ml Output Urine Total 300 ml 350 ml 1700 ml 675 ml 1000 ml Stool Total 1 ml # Bowel Movements 1 2 Vital Signs Date Time Temp Pulse Resp B/P (MAP) Pulse Ox O2 Delivery O2 Flow Rate FiO2 01/03/17 11:18 84 01/03/17 08:00 97.9 79 18 142/68 (92) 96 01/03/17 05:30 97.7 85 20 139/67 (91) 95 01/03/17 00:15 98.0 75 20 133/76 (95) 96 01/02/17 21:15 97.2 85 19 138/63 (88) 98 01/02/17 20:30 85 01/02/17 17:50 97.5 78 16 113/56 (75) 98 01/02/17 13:18 97.2 88 16 142/77 (98) 97 01/02/17 09:29 97.5 80 18 144/75 (98) 95 01/02/17 07:00 87 01/02/17 05:15 98.0 87 19 174/81 (112) 98 01/02/17 00:15 97.7 80 19 136/71 (92) 97 01/01/17 21:00 98.8 85 21 124/64 (84) 98 01/01/17 20:30 80 01/01/17 16:00 97.4 97 16 138/72 (94) 98 01/01/17 12:00 97.4 96 16 136/77 (96) 95 01/01/17 08:00 97.4 91 16 136/84 (101) 95 01/01/17 07:00 101 01/01/17 05:39 102 01/01/17 04:00 97.5 97 22 152/72 (98) 97 01/01/17 00:00 97.5 87 22 129/75 (93) 94 12/31/16 20:00 98.2 94 18 133/73 (93) 96 12/31/16 16:00 97.5 98 15 134/85 (101) 96 12/31/16 15:57 95 (Brennon White) Physical Examination GENERAL: Awake & alert, readily interacts and verbalises. HEENT: Normocephalic, atraumatic. PERRLA. NECK: No JVD, trachea midline. CARDIOVASCULAR: S1S2 w/RRR w/o M/G/R, cap refill < 2 sec, radial & pedal pulses 2+ bilaterally, no pedal edema. RESPIRATORY: CTAB w/o W/R/R, equal excursion, nonlaboured, slightly productive cough. GASTROINTESTINAL: Abdomen soft, nontender, positive bowel sounds. MUSCULOSKELETAL: Moving upper extremities spontaneously R>L, no evident deformity or clubbing. NEUROLOGICAL: Awake & alert, oriented to self. PERRLA. He is able to recall remote events but not the year or month. His voice is slightly gravely and he speaks in Khmer and some Icelandic. He readily follows commands. He has a mild hand grasp bilaterally and moves the right foot to command but no movement of the left foot is noted. (Brennon White) Lab, Micro, Other Results Laboratory Tests Test 12/31/16 14:50 01/01/17 19:00 01/02/17 13:55 01/03/17 10:19 Blood Urea Nitrogen 40 MG/DL 33 MG/DL 27 MG/DL 21 MG/DL Creatinine 0.82 MG/DL 0.58 MG/DL 0.53 MG/DL 0.46 MG/DL Random Glucose 165 MG/DL 138 MG/DL 148 MG/DL 116 MG/DL Calcium Level 9.7 MG/DL 9.9 MG/DL 8.7 MG/DL 9.1 MG/DL Sodium Level 146 MEQ/L 144 MEQ/L 144 MEQ/L 141 MEQ/L Potassium Level 3.3 MEQ/L 3.1 MEQ/L 3.3 MEQ/L 3.9 MEQ/L Chloride Level 109 MEQ/L 110 MEQ/L 110 MEQ/L 108 MEQ/L Carbon Dioxide Level 27.7 MEQ/L 26.2 MEQ/L 28.0 MEQ/L 24.7 MEQ/L Anion Gap 9 MEQ/L 8 MEQ/L 6 MEQ/L 8 MEQ/L Estimat Glomerular Filtration Rate 90 ML/MIN 134 ML/MIN 148 ML/MIN 175 ML/MIN Phenytoin (Dilantin) Level 6.4 MCG/ML Total Protein 7.4 GM/DL Albumin 2.3 GM/DL Alkaline Phosphatase 149 U/L Aspartate Amino Transf (AST/SGOT) 23 U/L Alanine Aminotransferase (ALT/SGPT) 29 U/L Total Bilirubin 0.8 MG/DL (Brennon White) Medical Decision Making Impression and Plan Impression/plan: 1. Traumatic brain injury. Most recent CT scan stable with resolving contusions, stable mild to moderate subdural fluid collections without significant mass effect. Mental status fluctuating throughout the day but overall stable over the past week. 2. Jane UTI. Treated. 12/13/16 follow-up urine culture growth at 48 hours 3. Hypertension, atrial fibrillation. Remains on Lopressor. 3. Recent seizures. He remains on Keppra and Dilantin. 4. Sacral decubitus ulcer. Continuing decubitus precautions, wound care, Santyl 5. Leukocytosis. Hematology following-workup in progress. 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 6. Diabetes. Remains on insulin sliding scale. 7. Respiratory insufficiency. Improved. Stable on room air Family is continuing efforts to have the patient transferred back to [facility]. Patient's family has indicated that they are waiting word from the embassy regarding transportation This afternoon the patient is the most awake and alert that I have seen him in a long time, he is able to move both upper & the right lower extremities but none noted to the left. He is verbalising in both Khmer & Icelandic with this practitioner. Labs reviewed for today. Medical management per Hospitalist. No active issues for Neurosurgery. (Brennon White) Attending Statement The exam, history, and the medical decision-making described in the above note were completed with the assistance of the mid-level provider. I reviewed and agree with the findings presented. I attest that I had a [id number] encounter with the patient on the same day, and personally performed and documented my assessment and findings in the medical record. Patient rather alert today. Still not following commands but purposeful with right greater than left upper extremity. He ate very well today Hopefully showing some gradual improvement Continue present care. Transfer home pending (Tony Godfrey MD) Brennon White Jan 03, 2017 13:23 Tony Godfrey MD Jan 03, 2017 21:43
--- NOTE | 2017-01-03 14:13 | HHI.PR ---
Subjective Remarks seen with daughter patient awake and alert, more interactive- spoke Objective Vitals Vital Signs Date Time Temp Pulse Resp B/P (MAP) Pulse Ox O2 Delivery O2 Flow Rate FiO2 01/03/17 12:00 98.6 91 18 124/60 (81) 96 01/03/17 11:18 84 01/03/17 08:00 97.9 79 18 142/68 (92) 96 01/03/17 05:30 97.7 85 20 139/67 (91) 95 01/03/17 00:15 98.0 75 20 133/76 (95) 96 01/02/17 21:15 97.2 85 19 138/63 (88) 98 01/02/17 20:30 85 01/02/17 17:50 97.5 78 16 113/56 (75) 98 I/O 01/02/17 01/02/17 01/02/17 01/03/17 01/03/17 01/03/17 07:00 15:00 23:00 07:00 15:00 23:00 Intake Total 300 ml 540 ml 150 ml Output Total 900 ml 1275 ml 400 ml Balance -600 ml -735 ml -250 ml Intake Oral 300 ml 540 ml 150 ml Output Urine Total 900 ml 1275 ml 400 ml # Bowel Movements 1 1 1 Result Diagram: 01/03/17 1019 Imaging Last Impressions Brain MRI 12/13/16 0000 Signed Impressions: Service Date/Time: Tuesday, December 13, 2016 12:20 - CONCLUSION: 1. The examination demonstrates multiple small areas of intraparenchymal and extra-axial hemorrhage as described above. These areas are more apparent on the patient's MRI examination than on the CT. Direct comparison is made. The areas of edema and hemorrhage appear similar though they are isointense on the CT. 2. 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 There is cortical atrophy. Anthony Burns MD Chest X-Ray 12/04/16 0000 Signed Impressions: Service Date/Time: November 11:58 - CONCLUSION: Improving aeration. Lonnie Blanchard MD Upper Extremity Ultrasound 12/02/16 0000 Signed Impressions: Service Date/Time: Saturday, December 03, 2016 00:53 - CONCLUSION: 1. Occlusive DVT in the cephalic and basilic vein on the right. Alex Goode MD Head CT 12/01/16 0000 Signed Impressions: Service Date/Time: Thursday, December 01, 2016 13:14 - CONCLUSION: Evolving intracranial hemorrhagic foci as above, both intra-axial and extra-axial. Jesus Lee MD Modified Barium Swallow 11/30/16 0000 Signed Impressions: Service Date/Time: Wednesday, November 30, 2016 00:00 - CONCLUSION: Please refer to speech pathology report for full details. Lonnie Cook MD Transcranial Doppler Study Complete 11/17/16 0000 Signed Impressions: Service Date/Time: Thursday, November 17, 2016 10:03 - CONCLUSION: 1. Nondiagnostic examination due to poor transcranial windows. Konstantin Dash MD Abdomen X-Ray 11/12/16 0000 Signed Impressions: Service Date/Time: Saturday, November 12, 2016 08:23 - CONCLUSION: 1. Gastric tube in good position. 2. Probable right renal stones. Narayan Coulter MD Cervical Spine CT 11/09/161950 Signed Impressions: Service Date/Time: Wednesday, November 09, 2016 20:14 - CONCLUSION: Negative trauma CT. 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 no nuchal rigidity decreased breath sounds, no rales or wheezes sinus on exam abdomen soft, nontender extremities no edema prabhakar in place moves all extremities spontaneously Urinary Catheter: Yes Assessment to: Continue Prabhakar insert reason: Prolonged Immobilization Date of Insertion: Dec 17, 2016 Date of Insertion: Nov 12, 2016 Line: Central Venous Catheter Side: Right Location: Internal, Jugular A/P Problem List: (1) Subdural hematoma ICD Code: I62.00 - Nontraumatic subdural hemorrhage, unspecified Status: Acute (2) Diabetes ICD Code: E11.9 - Type 2 diabetes mellitus without complications Status: Chronic (3) Leukocytosis ICD Code: D72.829 - Elevated white blood cell count, unspecified Status: Acute (4) HTN (hypertension) ICD Code: I10 - Essential (primary) hypertension Status: Chronic (5) Dysphagia ICD Code: R13.10 - Dysphagia, unspecified (6) Urinary tract infection ICD Code: N39.0 - Urinary tract infection, site not specified Assessment and Plan 80 y/o with a history of HTN, DM, and BPH presented to the ED after a fall at home, with a LOC for 10-15 mins. 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 Ordered other testing R/O other bone marrow abnormality. - Blood cultures no growth in 5 days. Off antibiotics. - Awaiting results of TCR gene rearrangement studies from pathology. - Avoid unnecessary blood draws Respiratory insufficiency - resolved - Chest x-ray with improvement in aeration - Continue CPT - Schedule and DuoNeb when necessary and maintain oxygen saturation above 92% - Improving aeration with CXR - Off NC, tolerating RA - out of bed to chair daily- d/w staff- 12/29 Atrial fibrillation- in SR now H Hypertension - Con Lopressor- keep rate less than 1100. 50 mg po q 8 - continue to monitor and adjust on Lasix po 40 mg daily on Amlodipine 5 mg daily - Oral anticoagulation contraindicated secondary to intracranial bleed - Monitor BP Trend, HR - place on telemetry Decubitus ulcer, DTI sacral area - Continue Santyl - Wound care following. Recommends mable thick coverage of Santyl ointment to wound bed on sacral area and cover with Slightly moistened Maxorb II (Calcium alginate) dressing. Cover with ABD pad secured with tape or cover with bordered gauze. - Repositioning every 2 hour Acute urinary retention History of BPH Acute Kidney injury- likely pre renal hypokalemia -pers staff failed voiding trial x 3- last placed 12/17 - Continue with Flomax, Detrol and Proscar - Prabhakar care- keep prabhakar Diabetes mellitus - hemoglobin A1c 6.0 - BS reviewed on Levemir back up to 10 units bid - Monitor accucheck- ff blood sugars Occlusive DVT in cephalic vein right upper extremity - Hematology consultation appreciated however oral anticoagulation contraindicated - Avoid IV access RUE Dysphagia secondary to intracranial hemorrhage - Barium swallow study normal - Speech therapist ff - swallowing assessment. - will continue to ff along with ys - on pure diet, nectar thickened consistency liquids. Speech therapist ff - Aspiration precaution -per daughter eating very well Generalized weakness, prolonged hospitalization - Encourage family to do ROM exercises with patient while in bed. Needs to be aggressive activity, OOB- d/w staff - out of bed to chair Urinary tract infection, resolved - off antibiotics - Plan for voiding trial when more awake and active. this week Prophylaxis GI - lansoprazole DVT - SCD/pharmacological prophylaxis when okay with neurosurgery Discharge Planning Patient's family states that they are waiting word from the embassy regarding transportation Problem Qualifiers (1) HTN (hypertension): Qualified Codes: I10 - Essential (primary) hypertension Zuleyka Rashid MD Jan 03, 2017 14:13
--- NOTE | 2017-01-03 14:49 | HHI.PR ---
Subjective Remarks seen with daughter at bedside patient awake and interacted more today Objective Vitals Vital Signs Date Time Temp Pulse Resp B/P (MAP) Pulse Ox O2 Delivery O2 Flow Rate FiO2 01/03/17 12:00 98.6 91 18 124/60 (81) 96 01/03/17 11:18 84 01/03/17 08:00 97.9 79 18 142/68 (92) 96 01/03/17 05:30 97.7 85 20 139/67 (91) 95 01/03/17 00:15 98.0 75 20 133/76 (95) 96 01/02/17 21:15 97.2 85 19 138/63 (88) 98 01/02/17 20:30 85 01/02/17 17:50 97.5 78 16 113/56 (75) 98 I/O 01/02/17 01/02/17 01/02/17 01/03/17 01/03/17 01/03/17 07:00 15:00 23:00 07:00 15:00 23:00 Intake Total 300 ml 540 ml 150 ml Output Total 900 ml 1275 ml 400 ml Balance -600 ml -735 ml -250 ml Intake Oral 300 ml 540 ml 150 ml Output Urine Total 900 ml 1275 ml 400 ml # Bowel Movements 1 1 1 Result Diagram: 01/03/17 1019 Imaging Last Impressions Brain MRI 12/13/16 0000 Signed Impressions: Service Date/Time: Tuesday, December 13, 2016 12:20 - CONCLUSION: 1. The examination demonstrates multiple small areas of intraparenchymal and extra-axial hemorrhage as described above. These areas are more apparent on the patient's MRI examination than on the CT. Direct comparison is made. The areas of edema and hemorrhage appear similar though they are isointense on the CT. 2. 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 There is cortical atrophy. Anthony Burns MD Chest X-Ray 12/04/16 0000 Signed Impressions: Service Date/Time: November 11:58 - CONCLUSION: Improving aeration. Lonnie Blanchard MD Upper Extremity Ultrasound 12/02/16 0000 Signed Impressions: Service Date/Time: Saturday, December 03, 2016 00:53 - CONCLUSION: 1. Occlusive DVT in the cephalic and basilic vein on the right. Alex Goode MD Head CT 12/01/16 0000 Signed Impressions: Service Date/Time: Thursday, December 01, 2016 13:14 - CONCLUSION: Evolving intracranial hemorrhagic foci as above, both intra-axial and extra-axial. Jesus Lee MD Modified Barium Swallow 11/30/16 0000 Signed Impressions: Service Date/Time: Wednesday, November 30, 2016 00:00 - CONCLUSION: Please refer to speech pathology report for full details. Lonnie Cook MD Transcranial Doppler Study Complete 11/17/16 0000 Signed Impressions: Service Date/Time: Thursday, November 17, 2016 10:03 - CONCLUSION: 1. Nondiagnostic examination due to poor transcranial windows. Konstantin Dash MD Abdomen X-Ray 11/12/16 0000 Signed Impressions: Service Date/Time: Saturday, November 12, 2016 08:23 - CONCLUSION: 1. Gastric tube in good position. 2. Probable right renal stones. Narayan Coulter MD Cervical Spine CT 11/09/161950 Signed Impressions: Service Date/Time: Wednesday, November 09, 2016 20:14 - CONCLUSION: Negative trauma CT. 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 no nuchal rigidity decreased breath sounds, no rales or wheezes sinus on exam abdomen soft, nontender extremities no edema prabhakar in place moves all extremities spontaneously Date of Insertion: Dec 17, 2016 Date of Insertion: Nov 12, 2016 Line: Central Venous Catheter Side: Right Location: Internal, Jugular A/P Problem List: (1) Subdural hematoma ICD Code: I62.00 - Nontraumatic subdural hemorrhage, unspecified Status: Acute (2) Diabetes ICD Code: E11.9 - Type 2 diabetes mellitus without complications Status: Chronic (3) Leukocytosis ICD Code: D72.829 - Elevated white blood cell count, unspecified Status: Acute (4) HTN (hypertension) ICD Code: I10 - Essential (primary) hypertension Status: Chronic (5) Dysphagia ICD Code: R13.10 - Dysphagia, unspecified (6) Urinary tract infection ICD Code: N39.0 - Urinary tract infection, site not specified Assessment and Plan 80 y/o with a history of HTN, DM, and BPH presented to the ED after a fall at home, with a LOC for 10-15 mins. 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 - Blood cultures no growth in 5 days. Off antibiotics. - Awaiting results of TCR gene rearrangement studies from pathology. - Avoid unnecessary blood draws Respiratory insufficiency - resolved - Chest x-ray with improvement in aeration - Continue CPT - Schedule and DuoNeb when necessary and maintain oxygen saturation above 92% - Improving aeration with CXR - Off NC, tolerating RA - out of bed to chair daily- d/w staff- 12/29 Atrial fibrillation- in SR now Hypertension - Con Lopressor- keep rate less than 100. 50 mg po q 8 - continue to monitor and adjust on Lasix po 40 mg daily on Amlodipine 5 mg daily - Oral anticoagulation contraindicated secondary to intracranial bleed - Monitor BP Trend, HR - place on telemetry Decubitus ulcer, sacral area - Continue Santyl - Wound care following. Recommends mable thick coverage of Santyl ointment to wound bed on sacral area and cover with Slightly moistened Maxorb II (Calcium alginate) dressing. Cover with ABD pad secured with tape or cover with bordered gauze. - Repositioning every 2 hour Acute urinary retention History of BPH Acute Kidney injury- likely pre renal hypokalemia -pers staff failed voiding trial x 3- last placed 12/17 - Continue with Flomax, Detrol and Proscar - Prabhakar care- keep prabhakar Diabetes mellitus - hemoglobin A1c 6.0 - BS reviewed on Levemir back up to 10 units bid - Monitor accucheck- ff blood sugars Occlusive DVT in cephalic vein right upper extremity - Hematology consultation appreciated however oral anticoagulation contraindicated - Avoid IV access RUE Dysphagia secondary to intracranial hemorrhage - Barium swallow study normal - Speech therapist ff - swallowing assessment. - will continue to ff along with ys - on pure diet, nectar thickened consistency liquids. Speech therapist ff - Aspiration precaution -per daughter eating very well- d/w her Generalized weakness, prolonged hospitalization - Encourage family to do ROM exercises with patient while in bed. Needs to be aggressive activity, OOB- d/w staff - out of bed to chair Urinary tract infection, resolved - off antibiotics - Plan for voiding trial when more awake and active. this week Prophylaxis GI - lansoprazole DVT - SCD/pharmacological prophylaxis when okay with neurosurgery Discharge Planning Patient's family states that they are waiting word from the embassy regarding transportation Problem Qualifiers (1) HTN (hypertension): Qualified Codes: I10 - Essential (primary) hypertension Zuleyka Rashid MD Jan 03, 2017 14:49
[2017-01-03] MEDS: TAMSULOSIN HCL 0.4 MG CAP PO SCH (21:57)
[2017-01-04] VITALS (7 sets, daily range): BP systolic 123–142; BP diastolic 64–91; PULSE 76–89; RESP 16–19; TEMP 97.4–98.1; O2SAT 96–98
[2017-01-04] MEDS: 1/2 NS + KCL 20 MEQ INJ 1,000 ML IV SCH ×2 (02:22→21:54)
[2017-01-04] MEDS: METOPROLOL TARTRATE 50 MG TAB PO SCH ×3 (05:19→22:31)
[2017-01-04] MEDS: levETIRAcetam 500 MG TAB PO SCH ×3 (05:19→22:31)
[2017-01-04] MEDS: INSULIN NovoLIN REGULAR SUPPLEMENTAL SCALE SQ SCH ×4 (08:00→21:00)
[2017-01-04] MEDS: CHLORHEXIDINE 0.12% (ORAL KIT) 15 ML CUP MT SCH ×2 (08:00→22:30)
--- NOTE | 2017-01-04 08:38 | HHI.PR ---
Subjective Remarks seen with daughter at bedside stated his name states " I am fine" in Polish- interpreted to me by family mumbling about events in the past per daughter ff some commands eats when fed Objective Vitals Vital Signs Date Time Temp Pulse Resp B/P (MAP) Pulse Ox O2 Delivery O2 Flow Rate FiO2 01/04/17 06:00 97.6 89 18 123/69 (87) 98 01/04/17 01:00 97.5 76 16 131/75 (93) 96 01/03/17 21:19 97.8 80 16 134/67 (89) 95 01/03/17 20:00 78 01/03/17 16:00 98.0 82 19 128/62 (84) 96 01/03/17 12:00 98.6 91 18 124/60 (81) 96 01/03/17 11:18 84 I/O 01/03/17 01/03/17 01/03/17 01/04/17 01/04/17 01/04/17 07:00 15:00 23:00 07:00 15:00 23:00 Intake Total 150 ml 780 ml 756 ml 410 ml Output Total 400 ml 750 ml 400 ml Balance -250 ml 30 ml 756 ml 10 ml Intake Oral 150 ml 780 ml IV Total 756 ml 410 ml Output Urine Total 400 ml 750 ml 400 ml # Bowel Movements 1 3 2 Result Diagram: 01/03/17 1019 Imaging Last Impressions Brain MRI 12/13/16 0000 Signed Impressions: Service Date/Time: Tuesday, December 13, 2016 12:20 - CONCLUSION: 1. The examination demonstrates multiple small areas of intraparenchymal and extra-axial hemorrhage as described above. These areas are more apparent on the patient's MRI examination than on the CT. Direct comparison is made. The areas of edema and hemorrhage appear similar though they are isointense on the CT. 2. 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 There is cortical atrophy. Anthony Burns MD Chest X-Ray 12/04/16 0000 Signed Impressions: Service Date/Time: November 11:58 - CONCLUSION: Improving aeration. Lonnie Blanchard MD Upper Extremity Ultrasound 12/02/16 0000 Signed Impressions: Service Date/Time: Saturday, December 03, 2016 00:53 - CONCLUSION: 1. Occlusive DVT in the cephalic and basilic vein on the right. Alex Goode MD Head CT 12/01/16 0000 Signed Impressions: Service Date/Time: Thursday, December 01, 2016 13:14 - CONCLUSION: Evolving intracranial hemorrhagic foci as above, both intra-axial and extra-axial. Jesus Lee MD Modified Barium Swallow 11/30/16 0000 Signed Impressions: Service Date/Time: Wednesday, November 30, 2016 00:00 - CONCLUSION: Please refer to speech pathology report for full details. Lonnie Cook MD Transcranial Doppler Study Complete 11/17/16 0000 Signed Impressions: Service Date/Time: Thursday, November 17, 2016 10:03 - CONCLUSION: 1. Nondiagnostic examination due to poor transcranial windows. Konstantin Dash MD Abdomen X-Ray 11/12/16 0000 Signed Impressions: Service Date/Time: Saturday, November 12, 2016 08:23 - CONCLUSION: 1. Gastric tube in good position. 2. Probable right renal stones. Narayan Coulter MD Cervical Spine CT 11/09/161950 Signed Impressions: Service Date/Time: Wednesday, November 09, 2016 20:14 - CONCLUSION: Negative trauma CT. 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, moves all extremities spontaneously anicteric no nuchal rigidity no rales or wheezes regular abdomen soft, nontender extremities no edema prabhakar in place moves all extremities spontaneously sacral- area- dressing in place Urinary Catheter: Yes Assessment to: Continue Prabhakar insert reason: Prolonged Immobilization Date of Insertion: Dec 17, 2016 Date of Insertion: Nov 12, 2016 Line: Central Venous Catheter Side: Right Location: Internal, Jugular A/P Problem List: (1) Subdural hematoma ICD Code: I62.00 - Nontraumatic subdural hemorrhage, unspecified Status: Acute (2) Diabetes ICD Code: E11.9 - Type 2 diabetes mellitus without complications Status: Chronic (3) Leukocytosis ICD Code: D72.829 - Elevated white blood cell count, unspecified Status: Acute (4) HTN (hypertension) ICD Code: I10 - Essential (primary) hypertension Status: Chronic (5) Dysphagia ICD Code: R13.10 - Dysphagia, unspecified (6) Urinary tract infection ICD Code: N39.0 - Urinary tract infection, site not specified Assessment and Plan 80 y/o with a history of HTN, DM, and BPH presented to the ED after a fall at home, with a LOC for 10-15 mins. Traumatic Brain Injury Subdural hematoma Bilateral intracranial hemorrhage - continue PT/OT. 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 - Blood cultures no growth in 5 days. Off antibiotics. - Awaiting results of TCR gene rearrangement studies from pathology. - Avoid unnecessary blood draws Respiratory insufficiency - resolved - Chest x-ray with improvement in aeration - Continue CPT - Schedule and DuoNeb when necessary and maintain oxygen saturation above 92% - Improving aeration with CXR - Off NC, tolerating RA - out of bed to chair daily- d/w staff and family Atrial fibrillation- in SR now Hypertension - Con Lopressor- keep rate less than 100. on . 50 mg po q 8 - continue to monitor and adjust on Lasix po 40 mg daily on Amlodipine 5 mg daily - Oral anticoagulation contraindicated secondary to intracranial bleed - Monitor BP Trend, HR - place on telemetry Decubitus ulcer, sacral area - Continue Santyl - Wound care following. Recommends mable thick coverage of Santyl ointment to wound bed on sacral area and cover with Slightly moistened Maxorb II (Calcium alginate) dressing. Cover with ABD pad secured with tape or cover with bordered gauze. - Repositioning every 2 hour Acute urinary retention History of BPH Acute Kidney injury- likely pre renal hypokalemia- improved -pers staff failed voiding trial x 3- last placed 12/17 - Continue with Flomax, Detrol and Proscar - Prabhakar care- keep prabhakar Diabetes mellitus - hemoglobin A1c 6.0 - BS reviewed on Levemir back up to 10 units bid - Monitor accucheck- ff blood sugars Occlusive DVT in cephalic vein right upper extremity - Hematology consultation appreciated however oral anticoagulation contraindicated - Avoid IV access RUE Dysphagia secondary to intracranial hemorrhage - Barium swallow study normal - Speech therapist ff - swallowing assessment. - will continue to ff along with ys - on pure diet, nectar thickened consistency liquids. Speech therapist ff - Aspiration precaution -per daughter eating very well- d/w her again 01/04 Generalized weakness, prolonged hospitalization - Encourage family to do ROM exercises with patient while in bed. Needs to be aggressive activity, OOB- d/w staff - out of bed to chair Urinary tract infection, resolved - off antibiotics - Plan for voiding trial when more awake and active. next week Prophylaxis GI - lansoprazole DVT - SCD/pharmacological prophylaxis when okay with neurosurgery Discharge Planning Patient's family states that they are waiting word from the embassy regarding getting back to [place] CM ff along with us Problem Qualifiers (1) HTN (hypertension): Qualified Codes: I10 - Essential (primary) hypertension Zuleyka Rashid MD Jan 04, 2017 08:38
[2017-01-04] MEDS: POLYETHYLENE GLYCOL 17 GM PKG OG-TUBE SCH ×2 (08:51→22:30)
[2017-01-04] MEDS: DOCUSATE SODIUM 100 MG/10 ML UDC PO SCH ×2 (08:52→21:00)
[2017-01-04] MEDS: FUROSEMIDE 40 MG TAB PO SCH (08:53)
[2017-01-04] MEDS: LANSOPRAZOLE SOLUTAB 30 MG TAB NG SCH (08:53)
[2017-01-04] MEDS: FINASTERIDE 5 MG TAB PO SCH (08:53)
[2017-01-04] MEDS: MEGESTROL ACETATE SUSP 400 MG/10 ML CUP PO SCH (08:53)
[2017-01-04] MEDS: PHENYTOIN SODIUM 100 MG CAP PO SCH ×3 (08:53→17:29)
[2017-01-04] MEDS: TOLTERODINE TARTRATE 2 MG CAP LA PO SCH (08:53)
[2017-01-04] MEDS: amLODIPine BESYLATE 5 MG TAB PO SCH (08:53)
[2017-01-04] MEDS: MUPIROCIN 2% CREAM 15 GM TOPICAL SCH ×2 (08:54→22:30)
[2017-01-04] MEDS: INSULIN DETEMIR 100 UNITS/ML VIAL SQ SCH ×2 (08:58→22:44)
[2017-01-04] MEDS: ARTIFICIAL TEARS OPTH SOLN 15 ML BTL EACH EYE SCH ×3 (09:00→17:28)
[2017-01-04] MEDS: SODIUM CHLORIDE 0.9% FLUSH 10 ML FLUSH IV FLUSH SCH ×2 (09:00→21:00)
[2017-01-04] MEDS: SODIUM CHLORIDE 0.9% FLUSH 10 ML FLUSH IVF SCH (09:00)
[2017-01-04] MEDS: COLLAGENASE OINT 30 GM TUBE TOPICAL SCH ×2 (09:00)
--- NOTE | 2017-01-04 11:40 | HHI.NSPN ---
(Brennon WhitePrateek GILBERTO) History Chief Complaint: Feels tired. (Brennon White) Interval History 12/07: Patient opens eyes to voice, smiles, questionable followed simple command left UE x one, not following commands other extremities. Not verbalizing. 12/13: Patient reported to be sleeping a little better at night. Still lethargic much of the day. According to family he is saying a few words and responds to questions, remains confused, following a few commands occasionally. 12/15: Patient extremely lethargic. No response to verbal stimulation but did withdraw upper extremities and open eyes to localised noxious stimulation. Slight moaning but no other response. 12/16: The patient is lethargic but less so today. He was noted to open his eyes and move both upper extremities spontaneously. He did respond to some commands weakly but did not verbalise. 12/19: This morning the patient is seen in rounds with Dr. Godfrey. The patient is awake and alert and did track with his eyes. 12/23: When seen this morning the patient's daughter is feeding him. He does spontaneously open his eyes and move the upper extremities. He does appear to track with the eyes. 12/25: The patient is awake this morning and moving the right upper extremity spontaneously. He is watching Nursing and his family as they move about in the room. The [id number] reports that the embassy is to call the hospital once everything is ready for the patient to be transferred back to [facility] or if they need any further information. She says her , the patient's son, spoke with the embassy yesterday. 12/29: The patient is asleep but awakens to verbal stimulation. He spontaneously moves both upper extremities and follows some commands on the right side. 12/30: This morning the patient is lethargic. He briefly opens his eyes but does not follow commands. His daughter/widqzzht-ht-pyt reports that he was awake all night due to his coughing. She does state that they are waiting to hear when air trans will be coming to [employer] the patient. 01/01: The patient is asleep when seen. He does awaken to voice and moves the upper extremities spontaneously. His daughter/gvqkovda-ve-sfq reports that he does say a few words and at times it seems he is searching for the word he wants but is unable to find it. 01/03: The patient is awake and alert when seen and readily interacts. He reaches his hand out to shake mine. He is verbalising although his voice is slightly gravely. He does speak some in Portuguese. 01/04: This morning the patient is awake and alert when seen. He readily interacts. His voice is a little stronger. He speaks in Portuguese and Armenian. His daughter/satkmbhl-ko-wjg states he is confused and doesn't remember seeing this practitioner yesterday. (Brennon White) Exam Results 01/02/17 01/02/17 01/03/17 01/03/17 01/04/17 01/04/17 06:00 18:00 06:00 18:00 06:00 18:00 Intake Total 300 ml 240 ml 450 ml 780 ml 1166 ml Output Total 1700 ml 675 ml 1000 ml 750 ml 400 ml Balance -1400 ml -435 ml -550 ml 30 ml 1166 ml -400 ml Intake Oral 300 ml 240 ml 450 ml 780 ml IV Total 1166 ml Output Urine Total 1700 ml 675 ml 1000 ml 750 ml 400 ml # Bowel Movements 1 2 3 2 Vital Signs Date Time Temp Pulse Resp B/P (MAP) Pulse Ox O2 Delivery O2 Flow Rate FiO2 01/04/17 10:36 86 01/04/17 08:00 98.1 77 18 142/84 (103) 96 01/04/17 06:00 97.6 89 18 123/69 (87) 98 01/04/17 01:00 97.5 76 16 131/75 (93) 96 01/03/17 21:19 97.8 80 16 134/67 (89) 95 01/03/17 20:00 78 01/03/17 16:00 98.0 82 19 128/62 (84) 96 01/03/17 12:00 98.6 91 18 124/60 (81) 96 01/03/17 11:18 84 01/03/17 08:00 97.9 79 18 142/68 (92) 96 01/03/17 05:30 97.7 85 20 139/67 (91) 95 01/03/17 00:15 98.0 75 20 133/76 (95) 96 01/02/17 21:15 97.2 85 19 138/63 (88) 98 01/02/17 20:30 85 01/02/17 17:50 97.5 78 16 113/56 (75) 98 01/02/17 13:18 97.2 88 16 142/77 (98) 97 01/02/17 09:29 97.5 80 18 144/75 (98) 95 01/02/17 07:00 87 01/02/17 05:15 98.0 87 19 174/81 (112) 98 01/02/17 00:15 97.7 80 19 136/71 (92) 97 01/01/17 21:00 98.8 85 21 124/64 (84) 98 01/01/17 20:30 80 01/01/17 16:00 97.4 97 16 138/72 (94) 98 01/01/17 12:00 97.4 96 16 136/77 (96) 95 (Brennon White) Physical Examination GENERAL: Awake & alert, readily interacts and verbalises. HEENT: Normocephalic, atraumatic. PERRLA. NECK: No JVD, trachea midline. CARDIOVASCULAR: S1S2 w/RRR w/o M/G/R, cap refill < 2 sec, radial & pedal pulses 2+ bilaterally, no pedal edema. RESPIRATORY: CTAB w/o W/R/R, equal excursion, nonlaboured, slightly productive cough. GASTROINTESTINAL: Abdomen soft, nontender, positive bowel sounds. MUSCULOSKELETAL: Moves all extremities, upper extremities spontaneously R>L, no evident deformity or clubbing. NEUROLOGICAL: Awake & alert, oriented to self. He is confused. PERRLA. His voice is slightly stronger and he speaks in Armenian and some Portuguese. He readily follows commands. He has a mild hand grasp bilaterally on the right and moves both feet to command , unable to grasp w/left hand. (Brennon White) Lab, Micro, Other Results Laboratory Tests Test 01/01/17 19:00 01/02/17 13:55 01/03/17 10:19 Blood Urea Nitrogen 33 MG/DL 27 MG/DL 21 MG/DL Creatinine 0.58 MG/DL 0.53 MG/DL 0.46 MG/DL Random Glucose 138 MG/DL 148 MG/DL 116 MG/DL Total Protein 7.4 GM/DL Albumin 2.3 GM/DL Calcium Level 9.9 MG/DL 8.7 MG/DL 9.1 MG/DL Alkaline Phosphatase 149 U/L Aspartate Amino Transf (AST/SGOT) 23 U/L Alanine Aminotransferase (ALT/SGPT) 29 U/L Total Bilirubin 0.8 MG/DL Sodium Level 144 MEQ/L 144 MEQ/L 141 MEQ/L Potassium Level 3.1 MEQ/L 3.3 MEQ/L 3.9 MEQ/L Chloride Level 110 MEQ/L 110 MEQ/L 108 MEQ/L Carbon Dioxide Level 26.2 MEQ/L 28.0 MEQ/L 24.7 MEQ/L Anion Gap 8 MEQ/L 6 MEQ/L 8 MEQ/L Estimat Glomerular Filtration Rate 134 ML/MIN 148 ML/MIN 175 ML/MIN (Brennon White) Medical Decision Making Impression and Plan Impression/plan: 1. Traumatic brain injury. Most recent CT scan stable with resolving contusions, stable mild to moderate subdural fluid collections without significant mass effect. Mental status fluctuating throughout the day but overall stable over the past week. 2. Jane UTI. Treated. 12/13/16 follow-up urine culture growth at 48 hours 3. Hypertension, atrial fibrillation. Remains on Lopressor. 3. Recent seizures. He remains on Keppra and Dilantin. 4. Sacral decubitus ulcer. Continuing decubitus precautions, wound care, Santyl 5. Leukocytosis. Hematology following-workup in progress. 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 6. Diabetes. Remains on insulin sliding scale. 7. Respiratory insufficiency. Improved. Stable on room air Family is continuing efforts to have the patient transferred back to [facility]. Patient's family has indicated that they are waiting word from the embassy regarding transportation This morning the patient is is awake and interactive, moves all extremities. He is verbalising in both Armenian & Portuguese. He is confused and does not remember seeing this practitioner yesterday. Medical management per Hospitalist. No active issues for Neurosurgery. (Brennon White) Attending Statement The exam, history, and the medical decision-making described in the above note were completed with the assistance of the mid-level provider. I reviewed and agree with the findings presented. I attest that I had a [id number] encounter with the patient on the same day, and personally performed and documented my assessment and findings in the medical record. Neurologic exam remained stable. She is maybe a little more alert and responsive the past couple days. Plan to recheck Dilantin level. Last level 12/31/16 was subtherapeutic. (Tony Godfrey MD) Brennon White Jan 04, 2017 11:40 Tony Godfrey MD Jan 04, 2017 11:57
[2017-01-04] MEDS: TAMSULOSIN HCL 0.4 MG CAP PO SCH (22:29)
[2017-01-05] VITALS (9 sets, daily range): BP systolic 116–143; BP diastolic 58–77; PULSE 76–98; RESP 16–20; TEMP 97.3–97.7; O2SAT 95–97
[2017-01-05] MEDS: levETIRAcetam 500 MG TAB PO SCH ×3 (05:20→21:57)
[2017-01-05] MEDS: METOPROLOL TARTRATE 50 MG TAB PO SCH ×3 (05:20→21:56)
[2017-01-05] MEDS: INSULIN NovoLIN REGULAR SUPPLEMENTAL SCALE SQ SCH ×4 (08:00→21:00)
[2017-01-05] MEDS: CHLORHEXIDINE 0.12% (ORAL KIT) 15 ML CUP MT SCH ×2 (08:00→20:00)
[2017-01-05] MEDS: SODIUM CHLORIDE 0.9% FLUSH 10 ML FLUSH IVF SCH (09:00)
[2017-01-05] MEDS: ARTIFICIAL TEARS OPTH SOLN 15 ML BTL EACH EYE SCH ×3 (09:00→18:00)
[2017-01-05] MEDS: INSULIN DETEMIR 100 UNITS/ML VIAL SQ SCH ×3 (09:00→21:00)
[2017-01-05] MEDS: POLYETHYLENE GLYCOL 17 GM PKG OG-TUBE SCH ×2 (09:00→21:56)
[2017-01-05] MEDS: DOCUSATE SODIUM 100 MG/10 ML UDC PO SCH ×2 (09:00→21:55)
[2017-01-05] MEDS: SODIUM CHLORIDE 0.9% FLUSH 10 ML FLUSH IV FLUSH SCH ×2 (09:00→21:00)
[2017-01-05] MEDS: FINASTERIDE 5 MG TAB PO SCH (09:32)
[2017-01-05] MEDS: TOLTERODINE TARTRATE 2 MG CAP LA PO SCH (09:32)
[2017-01-05] MEDS: amLODIPine BESYLATE 5 MG TAB PO SCH (09:32)
[2017-01-05] MEDS: LANSOPRAZOLE SOLUTAB 30 MG TAB NG SCH (09:32)
[2017-01-05] MEDS: MEGESTROL ACETATE SUSP 400 MG/10 ML CUP PO SCH (09:33)
[2017-01-05] MEDS: FUROSEMIDE 40 MG TAB PO SCH (09:33)
[2017-01-05] MEDS: PHENYTOIN SODIUM 100 MG CAP PO SCH ×3 (09:33→18:12)
[2017-01-05] MEDS: COLLAGENASE OINT 30 GM TUBE TOPICAL SCH ×2 (10:00)
--- NOTE | 2017-01-05 10:13 | HHI.NSPN ---
(Brennon WhitePrateek GILBERTO) History Chief Complaint: Feels good. (Brennon White) Interval History 12/07: Patient opens eyes to voice, smiles, questionable followed simple command left UE x one, not following commands other extremities. Not verbalizing. 12/13: Patient reported to be sleeping a little better at night. Still lethargic much of the day. According to family he is saying a few words and responds to questions, remains confused, following a few commands occasionally. 12/15: Patient extremely lethargic. No response to verbal stimulation but did withdraw upper extremities and open eyes to localised noxious stimulation. Slight moaning but no other response. 12/16: The patient is lethargic but less so today. He was noted to open his eyes and move both upper extremities spontaneously. He did respond to some commands weakly but did not verbalise. 12/19: This morning the patient is seen in rounds with Dr. Godfrey. The patient is awake and alert and did track with his eyes. 12/23: When seen this morning the patient's daughter is feeding him. He does spontaneously open his eyes and move the upper extremities. He does appear to track with the eyes. 12/25: The patient is awake this morning and moving the right upper extremity spontaneously. He is watching Nursing and his family as they move about in the room. The [id number]-gma reports that the embassy is to call the hospital once everything is ready for the patient to be transferred back to [facility] or if they need any further information. She says her , the patient's son, spoke with the embassy yesterday. 12/29: The patient is asleep but awakens to verbal stimulation. He spontaneously moves both upper extremities and follows some commands on the right side. 12/30: This morning the patient is lethargic. He briefly opens his eyes but does not follow commands. His daughter/zkuzgqan-xt-ucp reports that he was awake all night due to his coughing. She does state that they are waiting to hear when air trans will be coming to [employer] the patient. 01/01: The patient is asleep when seen. He does awaken to voice and moves the upper extremities spontaneously. His daughter/fttrigwj-fs-pah reports that he does say a few words and at times it seems he is searching for the word he wants but is unable to find it. 01/03: The patient is awake and alert when seen and readily interacts. He reaches his hand out to shake mine. He is verbalising although his voice is slightly gravely. He does speak some in Mauritian. 01/04: This morning the patient is awake and alert when seen. He readily interacts. His voice is a little stronger. He speaks in Mauritian and Wolof. His daughter/nausqduh-ar-ipm states he is confused and doesn't remember seeing this practitioner yesterday. 01/05: When seen the patient is awake and alert. He readily interacts and speaks in a little Mauritian with this practitioner but primarily in Wolof. The daughter/zbnvparl-ac-amj reports that the patient didn't sleep the last two nights due to coughing. (Brennon White) System Review Comments Unable to obtain due to patient not answering ROS questions. (Brennon White) Exam Results 01/03/17 01/03/17 01/04/17 01/04/17 01/05/17 01/05/17 06:00 18:00 06:00 18:00 06:00 18:00 Intake Total 450 ml 780 ml 1166 ml 120 ml Output Total 1000 ml 750 ml 1600 ml Balance -550 ml 30 ml 1166 ml -1600 ml 120 ml Intake Oral 450 ml 780 ml 120 ml IV Total 1166 ml Output Urine Total 1000 ml 750 ml 1600 ml # Bowel Movements 2 3 3 Vital Signs Date Time Temp Pulse Resp B/P (MAP) Pulse Ox O2 Delivery O2 Flow Rate FiO2 01/05/17 09:26 97.7 92 19 128/60 (82) 95 01/05/17 06:20 97.7 93 16 116/66 (83) 96 01/05/17 01:18 97.7 76 16 127/61 (83) 97 01/05/17 01:16 78 01/04/17 22:07 97.9 78 16 123/65 (84) 98 01/04/17 16:00 97.8 77 18 124/91 (102) 96 01/04/17 12:00 97.4 87 19 129/64 (85) 96 01/04/17 10:36 86 01/04/17 08:00 98.1 77 18 142/84 (103) 96 01/04/17 06:00 97.6 89 18 123/69 (87) 98 01/04/17 01:00 97.5 76 16 131/75 (93) 96 01/03/17 21:19 97.8 80 16 134/67 (89) 95 01/03/17 20:00 78 01/03/17 16:00 98.0 82 19 128/62 (84) 96 01/03/17 12:00 98.6 91 18 124/60 (81) 96 01/03/17 11:18 84 01/03/17 08:00 97.9 79 18 142/68 (92) 96 01/03/17 05:30 97.7 85 20 139/67 (91) 95 01/03/17 00:15 98.0 75 20 133/76 (95) 96 01/02/17 21:15 97.2 85 19 138/63 (88) 98 01/02/17 20:30 85 01/02/17 17:50 97.5 78 16 113/56 (75) 98 01/02/17 13:18 97.2 88 16 142/77 (98) 97 (Brennon White) Physical Examination GENERAL: Awake & alert, readily interacts and verbalises. HEENT: Normocephalic, atraumatic. PERRLA. NECK: No JVD, trachea midline. CARDIOVASCULAR: S1S2 w/RRR w/o M/G/R, cap refill < 2 sec, radial & pedal pulses 2+ bilaterally, 1+ pedal edema. RESPIRATORY: CTAB w/o W/R/R, equal excursion, nonlaboured, slightly productive cough. GASTROINTESTINAL: Abdomen soft, nontender, bowel sounds not appreciated. MUSCULOSKELETAL: Moves upper extremities spontaneously R>L, no evident deformity or clubbing. NEUROLOGICAL: Awake & alert, oriented to self. He is confused. PERRLA. His voice is slightly garbled and he speaks in Wolof and some Mauritian. He follows some commands. He has a mild hand grasp bilaterally on the right, does not follow commands with the left hand or BLE. (Brennon White) Lab, Micro, Other Results Laboratory Tests Test 01/02/17 13:55 01/03/17 10:19 01/04/17 15:20 Blood Urea Nitrogen 27 MG/DL 21 MG/DL Creatinine 0.53 MG/DL 0.46 MG/DL Random Glucose 148 MG/DL 116 MG/DL Calcium Level 8.7 MG/DL 9.1 MG/DL Sodium Level 144 MEQ/L 141 MEQ/L Potassium Level 3.3 MEQ/L 3.9 MEQ/L Chloride Level 110 MEQ/L 108 MEQ/L Carbon Dioxide Level 28.0 MEQ/L 24.7 MEQ/L Anion Gap 6 MEQ/L 8 MEQ/L Estimat Glomerular Filtration Rate 148 ML/MIN 175 ML/MIN Phenytoin (Dilantin) Level 3.0 MCG/ML (Brennon White) Medical Decision Making Impression and Plan Impression/plan: 1. Traumatic brain injury. Most recent CT scan stable with resolving contusions, stable mild to moderate subdural fluid collections without significant mass effect. Mental status fluctuating throughout the day but overall stable over the past week. 2. Jane UTI. Treated. 12/13/16 follow-up urine culture growth at 48 hours 3. Hypertension, atrial fibrillation. Remains on Lopressor. 3. Recent seizures. He remains on Keppra and Dilantin. 4. Sacral decubitus ulcer. Continuing decubitus precautions, wound care, Santyl 5. Leukocytosis. Hematology following-workup in progress. 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 6. Diabetes. Remains on insulin sliding scale. 7. Respiratory insufficiency. Improved. Stable on room air Family is continuing efforts to have the patient transferred back to [facility]. Patient's family has indicated that they are waiting word from the embassy regarding transportation Patient remains awake and interactive, moving upper extremities purposefully. He is verbalising in both Wolof & Mauritian. Primary management per Hospitalist. Since there are no active issues for Neurosurgery the Hospitalist service has agreed to assume care of this patient as the Attending, which is greatly appreciate. Therefore Neurosurgery will sign off at this time and will be available if needed. (Brennon White) Attending Statement The exam, history, and the medical decision-making described in the above note were completed with the assistance of the mid-level provider. I reviewed and agree with the findings presented. I attest that I had a [id number]-ds-puxh encounter with the patient on the same day, and personally performed and documented my assessment and findings in the medical record. Remains with fluctuating neurologic exam but slowly improving over the past couple weeks. Discussed with the patient's family in the room today. All questions answered. (Tony Godfrey MD) Brennon White Jan 05, 2017 10:13 Tony Godfrey MD Jan 09, 2017 19:23
[2017-01-05] MEDS: 1/2 NS + KCL 20 MEQ INJ 1,000 ML IV SCH (11:14)
[2017-01-05] MEDS: MUPIROCIN 2% CREAM 15 GM TOPICAL SCH ×2 (13:06→21:00)
--- NOTE | 2017-01-05 14:31 | HHI.PR ---
Subjective Remarks seen with daughter at bedside spoke in Hungarian- more interactive, identified his daughter denies any pain per daughter- did not sleep at all last night she report patient coughing there- no coughing noted I believe and on d/w staff- cough noted during feeding- daughter likely very aggressive with feeding him and not giving him enough time we will ask speech therapist to re educate and reevaluate swallowing on exam no rales, no fever Objective Vitals Vital Signs Date Time Temp Pulse Resp B/P (MAP) Pulse Ox O2 Delivery O2 Flow Rate FiO2 01/05/17 12:50 97.3 98 19 130/77 (94) 95 01/05/17 09:26 97.7 92 19 128/60 (82) 95 01/05/17 06:20 97.7 93 16 116/66 (83) 96 01/05/17 01:18 97.7 76 16 127/61 (83) 97 01/05/17 01:16 78 01/04/17 22:07 97.9 78 16 123/65 (84) 98 01/04/17 16:00 97.8 77 18 124/91 (102) 96 I/O 01/04/17 01/04/17 01/04/17 01/05/17 01/05/17 01/05/17 07:00 15:00 23:00 07:00 15:00 23:00 Intake Total 410 ml 120 ml 1000 ml Output Total 400 ml 1200 ml 1300 ml Balance 10 ml -1200 ml 120 ml -300 ml Intake Oral 120 ml IV Total 410 ml 1000 ml Output Urine Total 400 ml 1200 ml 1300 ml # Bowel Movements 2 1 Result Diagram: 01/03/17 1019 Imaging Last Impressions Brain MRI 12/13/16 0000 Signed Impressions: Service Date/Time: Tuesday, December 13, 2016 12:20 - CONCLUSION: 1. The examination demonstrates multiple small areas of intraparenchymal and extra-axial hemorrhage as described above. These areas are more apparent on the patient's MRI examination than on the CT. Direct comparison is made. The areas of edema and hemorrhage appear similar though they are isointense on the CT. 2. 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 There is cortical atrophy. Anthony Burns MD Chest X-Ray 12/04/16 0000 Signed Impressions: Service Date/Time: November 11:58 - CONCLUSION: Improving aeration. Lonnie Blanchard MD Upper Extremity Ultrasound 12/02/16 0000 Signed Impressions: Service Date/Time: Saturday, December 03, 2016 00:53 - CONCLUSION: 1. Occlusive DVT in the cephalic and basilic vein on the right. Alex Goode MD Head CT 12/01/16 0000 Signed Impressions: Service Date/Time: Thursday, December 01, 2016 13:14 - CONCLUSION: Evolving intracranial hemorrhagic foci as above, both intra-axial and extra-axial. Jesus Lee MD Modified Barium Swallow 11/30/16 0000 Signed Impressions: Service Date/Time: Wednesday, November 30, 2016 00:00 - CONCLUSION: Please refer to speech pathology report for full details. Lonnie Cook MD Transcranial Doppler Study Complete 11/17/16 0000 Signed Impressions: Service Date/Time: Thursday, November 17, 2016 10:03 - CONCLUSION: 1. Nondiagnostic examination due to poor transcranial windows. Konstantin Dash MD Abdomen X-Ray 11/12/16 0000 Signed Impressions: Service Date/Time: Saturday, November 12, 2016 08:23 - CONCLUSION: 1. Gastric tube in good position. 2. Probable right renal stones. Narayan Coulter MD Cervical Spine CT 11/09/161950 Signed Impressions: Service Date/Time: Wednesday, November 09, 2016 20:14 - CONCLUSION: Negative trauma CT. 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, + spoke in Hungarian moves all extremities spontaneously anicteric no nuchal rigidity no rales or wheezes regular abdomen soft, nontender extremities no edema prabhakar in place moves all extremities spontaneously sacral- area- dressing in place Prabhaakr insert reason: Prolonged Immobilization Date of Insertion: Dec 17, 2016 Date of Insertion: Nov 12, 2016 Line: Central Venous Catheter Side: Right Location: Internal, Jugular A/P Problem List: (1) Subdural hematoma ICD Code: I62.00 - Nontraumatic subdural hemorrhage, unspecified Status: Acute (2) Diabetes ICD Code: E11.9 - Type 2 diabetes mellitus without complications Status: Chronic (3) Leukocytosis ICD Code: D72.829 - Elevated white blood cell count, unspecified Status: Acute (4) HTN (hypertension) ICD Code: I10 - Essential (primary) hypertension Status: Chronic (5) Dysphagia ICD Code: R13.10 - Dysphagia, unspecified (6) Urinary tract infection ICD Code: N39.0 - Urinary tract infection, site not specified Assessment and Plan 80 y/o with a history of HTN, DM, and BPH presented to the ED after a fall at home, with a LOC for 10-15 mins. Traumatic Brain Injury Subdural hematoma Bilateral intracranial hemorrhage - continue PT/OT. neuro stable - Managed by neurosurgery and no indication for surgery at this time- - CT stable with resolving contusion - Neuro checks, seizure precautions- s - monitor MS- continues to improve - Continue with Keppra and Dilantin by mouth Cough - per Mom - bedside - no coughing noted I believe and on d/w staff- cough noted during feeding- daughter likely very aggressive with feeding him and not giving him enough time we will ask speech therapist to re educate and reevaluate swallowing on exam no rales, no fever Leukocytosis possible T cell lymphoproliferative disorder Anemia - Hematology following. - Blood cultures no growth in 5 days. Off antibiotics. - Awaiting results of TCR gene rearrangement studies from pathology. - Avoid unnecessary blood draws Respiratory insufficiency - resolved - Chest x-ray with improvement in aeration - Continue CPT - Schedule and DuoNeb when necessary and maintain oxygen saturation above 92% - Improving aeration with CXR - Off NC, tolerating RA - out of bed to chair daily- d/w staff and family Atrial fibrillation- in SR now Hypertension - Con Lopressor- keep rate less than 100. on . 50 mg po q 8 - continue to monitor and adjust on Lasix po 40 mg daily on Amlodipine 5 mg daily - Oral anticoagulation contraindicated secondary to intracranial bleed - Monitor BP Trend, HR Decubitus ulcer, sacral area - Continue Santyl - Wound care following. Recommends mable thick coverage of Santyl ointment to wound bed on sacral area and cover with Slightly moistened Maxorb II (Calcium alginate) dressing. Cover with ABD pad secured with tape or cover with bordered gauze. - Repositioning every 2 hour Acute urinary retention History of BPH Acute Kidney injury- likely pre renal hypokalemia- improved -pers staff failed voiding trial x 3- last placed 12/17 - Continue with Flomax, Detrol and Proscar - Prabhakar care- keep prabhakar Diabetes mellitus - hemoglobin A1c 6.0 - BS reviewed on Levemir back up to 10 units bid - Monitor accucheck- ff blood sugars Occlusive DVT in cephalic vein right upper extremity - Hematology consultation appreciated however oral anticoagulation contraindicated - Avoid IV access RUE Dysphagia secondary to intracranial hemorrhage - Barium swallow study normal - Speech therapist ff - swallowing assessment. - will continue to ff along with ys - on pure diet, nectar thickened consistency liquids. Speech therapist ff - Aspiration precaution -per daughter eating very well- d/w her again 01/04, 01/05 Generalized weakness, prolonged hospitalization - Encourage family to do ROM exercises with patient while in bed. Needs to be aggressive activity, OOB- d/w staff - out of bed to chair Urinary tract infection, resolved - off antibiotics - Plan for voiding trial when more awake and active. next week Prophylaxis GI - lansoprazole DVT - SCD/pharmacological prophylaxis when okay with neurosurgery Discharge Planning Patient's family states that they are waiting word from the embassy regarding getting back to [place] ff along with us Problem Qualifiers (1) HTN (hypertension): Qualified Codes: I10 - Essential (primary) hypertension Zuleyka Rashid MD Jan 05, 2017 14:31
[2017-01-05] MEDS ORDERED: TEMAZEPAM 7.5 MG CAP PO PRN (14:45)
--- NOTE | 2017-01-05 16:08 | RADRPT ---
EXAM DATE/TIME: 01/05/2017 15:05 CORRECTION Corrected on: January 06, 2017; Updated report date and time [place] COMPARISON: CHEST SINGLE AP, December 04, 2016, 11:58. INDICATIONS : Cough. MEDICAL HISTORY : Diabetes mellitus type II. Hypertension BPH SURGICAL HISTORY : Lesion from neck ENCOUNTER: Initial ACUITY: 2 weeks PAIN SCORE: Non-responsive. LOCATION: Bilateral chest FINDINGS: The heart is stable. The lungs are also stable with chronic interstitial disease noted. Small bilat eral pleural effusions are noted. Degenerative changes and scoliosis of the thoracic spine are noted. CONCLUSION: 1. Stable chronic interstitial disease bilaterally. 2. Small bilateral pleural effusions. 3. Degenerative changes and scoliosis of the thoracic spine. Juan Manuel Michel MD on January 05, 2017 at 15:52 Board Certified Radiologist. This report was verified electronically.
[2017-01-05] MEDS: TAMSULOSIN HCL 0.4 MG CAP PO SCH (21:57)
[2017-01-06] VITALS (7 sets, daily range): BP systolic 101–158; BP diastolic 59–73; PULSE 84–100; RESP 18–20; TEMP 97.5–98.8; O2SAT 93–98
[2017-01-06] MEDS: METOPROLOL TARTRATE 50 MG TAB PO SCH ×3 (06:00→20:38)
[2017-01-06] MEDS: levETIRAcetam 500 MG TAB PO SCH ×3 (06:44→20:38)
[2017-01-06] MEDS: 1/2 NS + KCL 20 MEQ INJ 1,000 ML IV SCH ×2 (07:14→23:54)
[2017-01-06] MEDS: CHLORHEXIDINE 0.12% (ORAL KIT) 15 ML CUP MT SCH ×3 (08:00→22:33)
[2017-01-06] MEDS: COLLAGENASE OINT 30 GM TUBE TOPICAL SCH ×2 (09:00)
[2017-01-06] MEDS: POLYETHYLENE GLYCOL 17 GM PKG OG-TUBE SCH ×2 (09:00→20:20)
[2017-01-06] MEDS: SODIUM CHLORIDE 0.9% FLUSH 10 ML FLUSH IVF SCH (09:00)
[2017-01-06] MEDS: ARTIFICIAL TEARS OPTH SOLN 15 ML BTL EACH EYE SCH ×3 (09:00→18:47)
[2017-01-06] MEDS: MEGESTROL ACETATE SUSP 400 MG/10 ML CUP PO SCH (09:02)
[2017-01-06] MEDS: PHENYTOIN SODIUM 100 MG CAP PO SCH ×3 (09:03→18:09)
[2017-01-06] MEDS: INSULIN DETEMIR 100 UNITS/ML VIAL SQ SCH ×2 (09:03→20:21)
[2017-01-06] MEDS: FINASTERIDE 5 MG TAB PO SCH (09:03)
[2017-01-06] MEDS: TOLTERODINE TARTRATE 2 MG CAP LA PO SCH (09:03)
[2017-01-06] MEDS: LANSOPRAZOLE SOLUTAB 30 MG TAB NG SCH (09:03)
[2017-01-06] MEDS: FUROSEMIDE 40 MG TAB PO SCH (09:03)
[2017-01-06] MEDS: amLODIPine BESYLATE 5 MG TAB PO SCH (09:03)
[2017-01-06] MEDS: DOCUSATE SODIUM 100 MG/10 ML UDC PO SCH ×2 (09:03→20:20)
[2017-01-06] MEDS: MUPIROCIN 2% CREAM 15 GM TOPICAL SCH ×2 (09:09→20:21)
[2017-01-06] MEDS: SODIUM CHLORIDE 0.9% FLUSH 10 ML FLUSH IV FLUSH SCH ×2 (09:09→20:20)
[2017-01-06] MEDS: INSULIN NovoLIN REGULAR SUPPLEMENTAL SCALE SQ SCH ×3 (14:00→20:21)
--- NOTE | 2017-01-06 14:45 | HHI.PR ---
Subjective Remarks awake and alert responded in Chinese "I'm good"- daughter interpreting no complains Objective Vitals Vital Signs Date Time Temp Pulse Resp B/P (MAP) Pulse Ox O2 Delivery O2 Flow Rate FiO2 01/06/17 11:44 98.8 92 18 158/68 (98) 98 01/06/17 08:00 97.5 100 20 133/63 (86) 94 01/06/17 04:00 97.5 91 20 101/59 (73) 93 01/06/17 00:00 97.9 84 20 135/73 (93) 96 01/05/17 20:00 97.6 86 20 122/58 (79) 97 01/05/17 19:00 81 01/05/17 16:56 97.6 95 18 143/73 (96) 96 I/O 01/05/17 01/05/17 01/05/17 01/06/17 01/06/17 01/06/17 07:00 15:00 23:00 07:00 15:00 23:00 Intake Total 120 ml 1000 ml 240 ml Output Total 1300 ml 600 ml 275 ml Balance 120 ml -300 ml -360 ml -275 ml Intake Oral 120 ml 240 ml IV Total 1000 ml Output Urine Total 1300 ml 600 ml 275 ml # Bowel Movements 1 1 Result Diagram: 01/03/17 1019 Imaging Last Impressions Chest X-Ray 01/05/17 0000 Signed Impressions: Service Date/Time: Thursday, January 05, 2017 15:05 - CONCLUSION: 1. Stable chronic interstitial disease bilaterally. 2. Small bilateral pleural effusions. 3. Degenerative changes and scoliosis of the thoracic spine. Juan Manuel Michel MD Brain MRI 12/13/16 0000 Signed Impressions: Service Date/Time: Tuesday, December 13, 2016 12:20 - CONCLUSION: 1. The examination demonstrates multiple small areas of intraparenchymal and extra-axial hemorrhage as described above. These areas are more apparent on the patient's MRI examination than on the CT. Direct comparison is made. The areas of edema and hemorrhage appear similar though they are isointense on the CT. 2. 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 There is cortical atrophy. Anthony Burns MD Upper Extremity Ultrasound 12/02/16 0000 Signed Impressions: Service Date/Time: Saturday, December 03, 2016 00:53 - CONCLUSION: 1. Occlusive DVT in the cephalic and basilic vein on the right. Alex Goode MD Head CT 12/01/16 0000 Signed Impressions: Service Date/Time: Thursday, December 01, 2016 13:14 - CONCLUSION: Evolving intracranial hemorrhagic foci as above, both intra-axial and extra-axial. Jesus Lee MD Modified Barium Swallow 11/30/16 0000 Signed Impressions: Service Date/Time: Wednesday, November 30, 2016 00:00 - CONCLUSION: Please refer to speech pathology report for full details. Lonnie Cook MD Transcranial Doppler Study Complete 11/17/16 0000 Signed Impressions: Service Date/Time: Thursday, November 17, 2016 10:03 - CONCLUSION: 1. Nondiagnostic examination due to poor transcranial windows. Konstantin Dash MD Abdomen X-Ray 11/12/16 0000 Signed Impressions: Service Date/Time: Saturday, November 12, 2016 08:23 - CONCLUSION: 1. Gastric tube in good position. 2. Probable right renal stones. Narayan Coulter MD Cervical Spine CT 11/09/161950 Signed Impressions: Service Date/Time: Wednesday, November 09, 2016 20:14 - CONCLUSION: Negative trauma CT. 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, + spoke in Chinese moves all extremities spontaneously anicteric no nuchal rigidity no rales or wheezes regular abdomen soft, nontender extremities no edema prabhakar in place moves all extremities spontaneously sacral- area- dressing in place Urinary Catheter: Yes Assessment to: Continue Prabhakar insert reason: Prolonged Immobilization Date of Insertion: Dec 17, 2016 Date of Insertion: Nov 12, 2016 Line: Central Venous Catheter Side: Right Location: Internal, Jugular A/P Problem List: (1) Subdural hematoma ICD Code: I62.00 - Nontraumatic subdural hemorrhage, unspecified Status: Acute (2) Diabetes ICD Code: E11.9 - Type 2 diabetes mellitus without complications Status: Chronic (3) Leukocytosis ICD Code: D72.829 - Elevated white blood cell count, unspecified Status: Acute (4) HTN (hypertension) ICD Code: I10 - Essential (primary) hypertension Status: Chronic (5) Dysphagia ICD Code: R13.10 - Dysphagia, unspecified (6) Urinary tract infection ICD Code: N39.0 - Urinary tract infection, site not specified Assessment and Plan 80 y/o with a history of HTN, DM, and BPH presented to the ED after a fall at home, with a LOC for 10-15 mins. Traumatic Brain Injury Subdural hematoma Bilateral intracranial hemorrhage - continue PT/OT. 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 - Blood cultures no growth in 5 days. Off antibiotics. - Awaiting results of TCR gene rearrangement studies from pathology. - Avoid unnecessary blood draws Respiratory insufficiency - resolved - Chest x-ray with improvement in aeration - Continue CPT - Schedule and DuoNeb when necessary and maintain oxygen saturation above 92% - Improving aeration with CXR - Off NC, tolerating RA - out of bed to chair daily- d/w staff and family Atrial fibrillation- in SR now Hypertension - Con Lopressor- keep rate less than 100. on . 50 mg po q 8 - continue to monitor and adjust on Lasix po 40 mg daily on Amlodipine 5 mg daily - Oral anticoagulation contraindicated secondary to intracranial bleed - Monitor BP Trend, HR Decubitus ulcer, sacral area - Continue Santyl - Wound care following. Recommends mable thick coverage of Santyl ointment to wound bed on sacral area and cover with Slightly moistened Maxorb II (Calcium alginate) dressing. Cover with ABD pad secured with tape or cover with bordered gauze. - Repositioning every 2 hour Acute urinary retention History of BPH Acute Kidney injury- likely pre renal hypokalemia- improved -pers staff failed voiding trial x 3- last placed 12/17 - Continue with Flomax, Detrol and Proscar - Prabhakar care- keep prabhakar Diabetes mellitus - hemoglobin A1c 6.0 - BS reviewed on Levemir back up to 10 units bid - Monitor accucheck- ff blood sugars Occlusive DVT in cephalic vein right upper extremity - Hematology consultation appreciated however oral anticoagulation contraindicated - Avoid IV access RUE Dysphagia secondary to intracranial hemorrhage - Barium swallow study normal - Speech therapist ff - swallowing assessment. - will continue to ff along with ys - on pure diet, nectar thickened consistency liquids. Speech therapist ff - Aspiration precaution -per daughter eating very well- d/w her again 01/04, 01/05 Generalized weakness, prolonged hospitalization - Encourage family to do ROM exercises with patient while in bed. Needs to be aggressive activity, OOB- d/w staff - out of bed to chair Urinary tract infection, resolved - off antibiotics - Plan for voiding trial when more awake and active. next week Prophylaxis GI - lansoprazole DVT - SCD/pharmacological prophylaxis when okay with neurosurgery Discharge Planning Patient's family states that they are waiting word from the embassy regarding getting back to [place] CM ff along with us Problem Qualifiers (1) HTN (hypertension): Qualified Codes: I10 - Essential (primary) hypertension Zuleyka Rashid MD Jan 06, 2017 14:45
--- NOTE | 2017-01-06 16:57 | HHI.HCPN ---
Mr. 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 He presented to [facility] ED on 2016 via EMS from his home after a witnessed fall with loss of consciousness. Per EMS report, the patient was observed by his grandson walking into the house when he missed the front step falling backward onto the concrete walkway and hitting his head. Patient seen in his room. Patient is in bed sleeping and easily arousable. Patient is alert today and talking. Patient is afebrile. SBPs [id number] to 150s. Patient on room air, O2 saturation in the high 90s. PT and OT following. Daughter Juliane at bedside during visit. Daughter states that patient has been more alert this week and has been asking her why he is here in the hospital. Daughter stated that patient has been verbalizing more and speaking in both Irish and Guatemalan. She states that he is intermittently confused because sometimes he does not know who she is. Patient has been out bed on a recliner chair. Patient `s daughter stated that they are still waiting to hear from [place] to provide transportation with medical staff from [facility] to come and transport patient from [facility] to [facility] ([facility] IN [facility]). . Axel Whitney Jan 06, 2017 16:57
[2017-01-06] MEDS: TAMSULOSIN HCL 0.4 MG CAP PO SCH (20:19)
[2017-01-07] VITALS (8 sets, daily range): BP systolic 127–165; BP diastolic 68–81; PULSE 88–104; RESP 16–20; TEMP 97.3–98.1; O2SAT 96–100
[2017-01-07] MEDS: METOPROLOL TARTRATE 50 MG TAB PO SCH ×3 (05:53→22:29)
[2017-01-07] MEDS: levETIRAcetam 500 MG TAB PO SCH ×3 (05:53→22:33)
[2017-01-07] MEDS: INSULIN NovoLIN REGULAR SUPPLEMENTAL SCALE SQ SCH ×4 (08:00→22:24)
[2017-01-07] MEDS: COLLAGENASE OINT 30 GM TUBE TOPICAL SCH ×2 (09:00→09:45)
[2017-01-07] MEDS: SODIUM CHLORIDE 0.9% FLUSH 10 ML FLUSH IVF SCH (09:00)
[2017-01-07] MEDS: FINASTERIDE 5 MG TAB PO SCH (09:43)
[2017-01-07] MEDS: LANSOPRAZOLE SOLUTAB 30 MG TAB NG SCH (09:43)
[2017-01-07] MEDS: POLYETHYLENE GLYCOL 17 GM PKG OG-TUBE SCH ×2 (09:43→21:49)
[2017-01-07] MEDS: DOCUSATE SODIUM 100 MG/10 ML UDC PO SCH ×2 (09:43→21:49)
[2017-01-07] MEDS: MEGESTROL ACETATE SUSP 400 MG/10 ML CUP PO SCH (09:43)
[2017-01-07] MEDS: TOLTERODINE TARTRATE 2 MG CAP LA PO SCH (09:43)
[2017-01-07] MEDS: FUROSEMIDE 40 MG TAB PO SCH (09:43)
[2017-01-07] MEDS: PHENYTOIN SODIUM 100 MG CAP PO SCH ×3 (09:43→17:48)
[2017-01-07] MEDS: amLODIPine BESYLATE 5 MG TAB PO SCH (09:43)
[2017-01-07] MEDS: INSULIN DETEMIR 100 UNITS/ML VIAL SQ SCH ×2 (09:44→22:23)
[2017-01-07] MEDS: SODIUM CHLORIDE 0.9% FLUSH 10 ML FLUSH IV FLUSH SCH ×2 (09:44→21:49)
[2017-01-07] MEDS: MUPIROCIN 2% CREAM 15 GM TOPICAL SCH ×2 (09:45→22:26)
[2017-01-07] MEDS: CHLORHEXIDINE 0.12% (ORAL KIT) 15 ML CUP MT SCH ×2 (09:46→20:00)
[2017-01-07] MEDS: ARTIFICIAL TEARS OPTH SOLN 15 ML BTL EACH EYE SCH ×3 (09:46→17:48)
--- NOTE | 2017-01-07 14:14 | HHI.NSPN ---
([place]) History Chief Complaint: Unable to obtain due to patient's confusion. ([place]) Interval History 12/07: Patient opens eyes to voice, smiles, questionable followed simple command left UE x one, not following commands other extremities. Not verbalizing. 12/13: Patient reported to be sleeping a little better at night. Still lethargic much of the day. According to family he is saying a few words and responds to questions, remains confused, following a few commands occasionally. 12/15: Patient extremely lethargic. No response to verbal stimulation but did withdraw upper extremities and open eyes to localised noxious stimulation. Slight moaning but no other response. 12/16: The patient is lethargic but less so today. He was noted to open his eyes and move both upper extremities spontaneously. He did respond to some commands weakly but did not verbalise. 12/19: This morning the patient is seen in rounds with Dr. Godfrey. The patient is awake and alert and did track with his eyes. 12/23: When seen this morning the patient's daughter is feeding him. He does spontaneously open his eyes and move the upper extremities. He does appear to track with the eyes. 12/25: The patient is awake this morning and moving the right upper extremity spontaneously. He is watching Nursing and his family as they move about in the room. The [id number] reports that the embassy is to call the hospital once everything is ready for the patient to be transferred back to [facility] or if they need any further information. She says her , the patient's son, spoke with the embassy yesterday. 12/29: The patient is asleep but awakens to verbal stimulation. He spontaneously moves both upper extremities and follows some commands on the right side. 12/30: This morning the patient is lethargic. He briefly opens his eyes but does not follow commands. His daughter/gvlktxux-ff-lqe reports that he was awake all night due to his coughing. She does state that they are waiting to hear when air trans will be coming to [employer] spot picker the patient. 01/01: The patient is asleep when seen. He does awaken to voice and moves the upper extremities spontaneously. His daughter/[id number]-vd-qkf reports that he does say a few words and at times it seems he is searching for the word he wants but is unable to find it. 01/03: The patient is awake and alert when seen and readily interacts. He reaches his hand out to shake mine. He is verbalising although his voice is slightly gravely. He does speak some in Tongan. 01/04: This morning the patient is awake and alert when seen. He readily interacts. His voice is a little stronger. He speaks in Tongan and Yi. His daughter/ikguuufz-wp-bpz states he is confused and doesn't remember seeing this practitioner yesterday. 01/05: When seen the patient is awake and alert. He readily interacts and speaks in a little Tongan with this practitioner but primarily in Yi. The daughter/sqxlzvdm-im-wiw reports that the patient didn't sleep the last two nights due to coughing. 01/07: This afternoon the patient is awake and fairly alert. He is verbalising in Yi. He is moving the upper extremities spontaneously. (Brennon White) System Review Comments Unable to obtain due to patient's confusion. (Brennon White) Exam Results 01/05/17 01/05/17 01/06/17 01/06/17 01/07/17 01/07/17 06:00 18:00 06:00 18:00 06:00 18:00 Intake Total 120 ml 1240 ml Output Total 1300 ml 875 ml 702 ml 700 ml Balance 120 ml -60 ml -875 ml -702 ml -700 ml Intake Oral 120 ml 240 ml IV Total 1000 ml Output Urine Total 1300 ml 875 ml 700 ml 700 ml Stool Total 2 ml # Bowel Movements 2 2 Vital Signs Date Time Temp Pulse Resp B/P (MAP) Pulse Ox O2 Delivery O2 Flow Rate FiO2 01/07/17 12:04 98 01/07/17 08:00 97.3 95 16 141/73 (95) 97 01/07/17 04:00 97.8 99 20 165/81 (109) 98 01/07/17 00:00 98.0 92 20 130/68 (88) 100 01/06/17 20:00 97.6 88 20 126/60 (82) 97 01/06/17 19:00 88 01/06/17 15:47 98.0 97 18 113/64 (80) 98 01/06/17 11:44 98.8 92 18 158/68 (98) 98 01/06/17 08:00 99 01/06/17 08:00 97.5 100 20 133/63 (86) 94 01/06/17 04:00 97.5 91 20 101/59 (73) 93 01/06/17 00:00 97.9 84 20 135/73 (93) 96 01/05/17 20:00 97.6 86 20 122/58 (79) 97 01/05/17 19:00 81 01/05/17 16:56 97.6 95 18 143/73 (96) 96 01/05/17 12:50 97.3 98 19 130/77 (94) 95 01/05/17 09:26 97.7 92 19 128/60 (82) 95 01/05/17 08:00 90 01/05/17 06:20 97.7 93 16 116/66 (83) 96 01/05/17 01:18 97.7 76 16 127/61 (83) 97 01/05/17 01:16 78 01/04/17 22:07 97.9 78 16 123/65 (84) 98 01/04/17 16:00 97.8 77 18 124/91 (102) 96 (Brennon White) Physical Examination GENERAL: Awake & fairly alert, readily interacts and verbalises. HEENT: Normocephalic, atraumatic. PERRLA. NECK: No JVD, trachea midline. CARDIOVASCULAR: S1S2 w/RRR w/o M/G/R, cap refill < 2 sec, radial & pedal pulses 2+ bilaterally, 1+ pedal edema. RESPIRATORY: CTAB w/o W/R/R, equal excursion, nonlaboured, slightly productive cough. GASTROINTESTINAL: Abdomen soft, nontender, bowel sounds not appreciated. MUSCULOSKELETAL: Moves upper extremities spontaneously, no evident deformity or clubbing. NEUROLOGICAL: Awake & fairly alert. Speech slightly garbled, speaking in Yi. Does not follow commands. PERRLA. Spontaneously moving upper extremities, does take practitioner's hand on own. No movement of BLE. (Brennon White) Lab, Micro, Other Results Recent Impressions Chest X-Ray 01/05/17 0000 Signed Impressions: Service Date/Time: Thursday, January 05, 2017 15:05 - CONCLUSION: 1. Stable chronic interstitial disease bilaterally. 2. Small bilateral pleural effusions. 3. Degenerative changes and scoliosis of the thoracic spine. Juan Manuel Michel MD Laboratory Tests Test 01/04/17 15:20 Phenytoin (Dilantin) Level 3.0 MCG/ML (Brennon White) Medical Decision Making Impression and Plan Impression/plan: 1. Traumatic brain injury. Most recent CT scan stable with resolving contusions, stable mild to moderate subdural fluid collections without significant mass effect. Mental status fluctuating throughout the day but overall stable over the past week. 2. Jane UTI. Treated. 12/13/16 follow-up urine culture growth at 48 hours 3. Hypertension, atrial fibrillation. Remains on Lopressor. 3. Recent seizures. He remains on Keppra and Dilantin. 4. Sacral decubitus ulcer. Continuing decubitus precautions, wound care, Santyl 5. Leukocytosis. Hematology following-workup in progress. 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 6. Diabetes. Remains on insulin sliding scale. 7. Respiratory insufficiency. Improved. Stable on room air Family is continuing efforts to have the patient transferred back to [facility]. Patient's family has indicated that they are waiting word from the embassy regarding transportation Patient awake and interacts, moving upper extremities purposefully. He is verbalising in Yi, speech slightly garbled. Medical management per Hospitalist. No active issues for Neurosurgery. (Brennon White) Attending Statement The exam, history, and the medical decision-making described in the above note were completed with the assistance of the mid-level provider. I reviewed and agree with the findings presented. I attest that I had a [id number] encounter with the patient on the same day, and personally performed and documented my assessment and findings in the medical record. Patient is awake and alert on examination today. Tolerating diet well. Medical notes reviewed. Continue discharge efforts (Tony Godfrey MD) Brennon White Jan 07, 2017 14:14 Tony Godfrey MD Jan 09, 2017 19:27
[2017-01-07] MEDS: 1/2 NS + KCL 20 MEQ INJ 1,000 ML IV SCH (15:54)
--- NOTE | 2017-01-07 16:17 | HHI.PR ---
Subjective Remarks Follow up visit SDH, UE DVT, HTN, DM2. Patient seen and examined today. Patient is laying in bed. Patient is drowsy and was sleep and. Arousable with verbal and tactile stimulation. Minimal verbalization. Appears comfortable. As per son, he ate all his lunch and is now resting and he was awake today with him. Objective Vitals Vital Signs Date Time Temp Pulse Resp B/P (MAP) Pulse Ox O2 Delivery O2 Flow Rate FiO2 01/07/17 12:04 98 01/07/17 12:00 97.6 104 16 127/76 (93) 97 01/07/17 08:00 97.3 95 16 141/73 (95) 97 01/07/17 04:00 97.8 99 20 165/81 (109) 98 01/07/17 00:00 98.0 92 20 130/68 (88) 100 01/06/17 20:00 97.6 88 20 126/60 (82) 97 01/06/17 19:00 88 I/O 01/06/17 01/06/17 01/06/17 01/07/17 01/07/17 01/07/17 07:00 15:00 23:00 07:00 15:00 23:00 Output Total 275 ml 702 ml 325 ml 375 ml Balance -275 ml -702 ml -325 ml -375 ml Output Urine Total 275 ml 700 ml 325 ml 375 ml Stool Total 2 ml # Bowel Movements 1 1 1 Result Diagram: 01/03/17 1019 Imaging Last Impressions Chest X-Ray 01/05/17 0000 Signed Impressions: Service Date/Time: Thursday, January 05, 2017 15:05 - CONCLUSION: 1. Stable chronic interstitial disease bilaterally. 2. Small bilateral pleural effusions. 3. Degenerative changes and scoliosis of the thoracic spine. Juan Manuel Michel MD Brain MRI 12/13/16 0000 Signed Impressions: Service Date/Time: Tuesday, December 13, 2016 12:20 - CONCLUSION: 1. The examination demonstrates multiple small areas of intraparenchymal and extra-axial hemorrhage as described above. These areas are more apparent on the patient's MRI examination than on the CT. Direct comparison is made. The areas of edema and hemorrhage appear similar though they are isointense on the CT. 2. 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 There is cortical atrophy. Anthony Burns MD Upper Extremity Ultrasound 12/02/16 0000 Signed Impressions: Service Date/Time: Saturday, December 03, 2016 00:53 - CONCLUSION: 1. Occlusive DVT in the cephalic and basilic vein on the right. Alex Goode MD Head CT 12/01/16 0000 Signed Impressions: Service Date/Time: Thursday, December 01, 2016 13:14 - CONCLUSION: Evolving intracranial hemorrhagic foci as above, both intra-axial and extra-axial. Jesus Lee MD Modified Barium Swallow 11/30/16 0000 Signed Impressions: Service Date/Time: Wednesday, November 30, 2016 00:00 - CONCLUSION: Please refer to speech pathology report for full details. Lonnie Cook MD Transcranial Doppler Study Complete 11/17/16 0000 Signed Impressions: Service Date/Time: Thursday, November 17, 2016 10:03 - CONCLUSION: 1. Nondiagnostic examination due to poor transcranial windows. Konstantin Dash MD Abdomen X-Ray 11/12/16 0000 Signed Impressions: Service Date/Time: Saturday, November 12, 2016 08:23 - CONCLUSION: 1. Gastric tube in good position. 2. Probable right renal stones. Narayan Coulter MD Cervical Spine CT 11/09/161950 Signed Impressions: Service Date/Time: Wednesday, November 09, 2016 20:14 - CONCLUSION: Negative trauma CT. Cj Isidro MD Objective Remarks GENERAL: This is a thin-appearing, well-developed patient, in no apparent distress. SKIN: Warm and dry. HEENT: Nose without bleeding. Airway patent. NECK: Trachea midline. Supple. CARDIOVASCULAR: Heart rate irregular, rate wnl without murmurs, gallops, or rubs. RESPIRATORY: Diminished bases. No wheezes, rales, or rhonchi. GASTROINTESTINAL: Abdomen soft, non-tender, nondistended. Bowel Sounds normoactive x4. Noriega draining urine with slightly cloudy, yellow. MUSCULOSKELETAL: Extremities without clubbing, cyanosis, bilateral lower extremity trace edema. NEUROLOGICAL: Lethargic/ Drowsy. Moves all extremities weakly. Date of Insertion: Dec 17, 2016 Date of Insertion: Nov 12, 2016 Line: Central Venous Catheter Side: Right Location: Internal, Jugular A/P Problem List: (1) Subdural hematoma ICD Code: I62.00 - Nontraumatic subdural hemorrhage, unspecified Status: Acute (2) Diabetes ICD Code: E11.9 - Type 2 diabetes mellitus without complications Status: Chronic (3) Leukocytosis ICD Code: D72.829 - Elevated white blood cell count, unspecified Status: Acute (4) HTN (hypertension) ICD Code: I10 - Essential (primary) hypertension Status: Chronic (5) Dysphagia ICD Code: R13.10 - Dysphagia, unspecified (6) Urinary tract infection ICD Code: N39.0 - Urinary tract infection, site not specified Assessment and Plan 80 y/o with a history of HTN, DM, and BPH presented to the ED after a fall at home, with a LOC for 10-15 mins. Closed head injury Subdural hematoma Bilateral intracranial hemorrhaging - Managed by neurosurgery and no indication for surgery at this time - Neuro checks, seizure precautions - Continue with Keppra and Dilantin by mouth; monitor level - Lethargic in am. Metabolic encephalopathy - head CT 12/01/16 showed Bilateral hypodense subdural hematomas are seen in the occipital region and along the tentorium cerebelli on the right as well as small right frontal subdural hematoma unchanged. The left frontal parenchymal bleed is decreased in density with a small amount of edema identified. There is atrophy and moderate confluent hypodense white matter disease in the periventricular regions. The right frontal and left insular bleeds are much less conspicuous with a small amount of residual high density in the right frontal region with a small amount of surrounding edema. There is no midline shift or mass effect. Vascular calcifications are noted. No fractures. - CXR with improving aeration - Continue neurochecks - Ammonia level within normal. ABG without any changes. - Repeat brain MRI 12/13/16 showed 1. Examination demonstrates multiple small areas of intraparenchymal and extra ache she'll hemorrhage as described above he Sears are more apparent on the patient's MRI examination done on the CT. Direct comparison is made. The areas of edema and hemorrhage appears similar though they are isointense on the CT. 2. 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 There is cortical atrophy. - Patient remains lethargic on and off. Leukocytosis Anemia - Hematology following. Ordered other testing R/O other bone marrow abnormality. Follow results. - Blood cultures no growth in 5 days. Off antibiotics. 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 - Avoid unnecessary blood draws Respiratory insufficiency - Chest x-ray with improvement in aeration - Continue CPT - Schedule and DuoNeb when necessary and maintain oxygen saturation above 92% - Improving aeration with CXR - Off NC, tolerating RA Atrial fibrillation Hypertension - Continue with Lopressor 25mg TID - better rate control and BP control - Oral anticoagulation contraindicated secondary to intracranial bleed - Monitor BP Trend, HR Decubitus ulcer, DTI sacral area - Continue Santyl - Wound care following. Recommends mable thick coverage of santyl ointment to wound bed on sacral area and cover with Slightly moistened Maxorb II ( Calcium alginate) dressing. Cover with ABD pad secured with tape or cover with bordered gauze. 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 Monitor accucheck Occlusive DVT in cephalic vein right upper extremity - Hematology consultation appreciated however oral anticoagulation contraindicated - Avoid IV access RUE Dysphagia secondary to intracranial hemorrhage - Barium swallow study normal - Reassess by speech for swallowing evaluation. Recommends pure diet, nectar thickened consistency liquids. - Aspiration precaution Generalized weakness, prolonged hospitalization - Encourage family to do ROM exercises with patient while in bed. Needs to be aggressive with increase activity, OOB-chair, if patient has pain, to be addressed with pain medication -tylenol. - Discuss with family members that pain should not deter him to increase his activities or being OOB to chair. - Encourage activities in the morning so that patient can sleep during the night. Urinary tract infection, resolved - off antibiotics - Plan for voiding trial when more awake and active. Prophylaxis GI - lanosprazole DVT - SCD/pharmacological prophylaxis when okay with neurosurgery Discuss with patient, nursing, Dr. Stanton Discharge Planning As per CM note, [facility] when they are ready for patient transfer. Plan for patient to go back to [facility]. Pending Medicaid application. CM following. Difficult SNF placement. Problem Qualifiers (1) HTN (hypertension): Qualified Codes: I10 - Essential (primary) hypertension Veronica Coley [facility] Jan 07, 2017 16:17
[2017-01-07] MEDS: TAMSULOSIN HCL 0.4 MG CAP PO SCH (21:49)
[2017-01-08] VITALS (7 sets, daily range): BP systolic 118–148; BP diastolic 62–80; PULSE 83–101; RESP 18–20; TEMP 97–98.1; O2SAT 95–97
[2017-01-08] MEDS: levETIRAcetam 500 MG TAB PO SCH ×3 (05:58→21:07)
[2017-01-08] MEDS: METOPROLOL TARTRATE 50 MG TAB PO SCH ×3 (05:58→21:07)
[2017-01-08] MEDS: INSULIN NovoLIN REGULAR SUPPLEMENTAL SCALE SQ SCH ×4 (08:00→22:55)
[2017-01-08] MEDS: DOCUSATE SODIUM 100 MG/10 ML UDC PO SCH ×2 (09:00→21:06)
[2017-01-08] MEDS: POLYETHYLENE GLYCOL 17 GM PKG OG-TUBE SCH ×2 (09:00→21:00)
[2017-01-08] MEDS: COLLAGENASE OINT 30 GM TUBE TOPICAL SCH ×2 (09:00→09:54)
[2017-01-08] MEDS: SODIUM CHLORIDE 0.9% FLUSH 10 ML FLUSH IVF SCH (09:00)
[2017-01-08] MEDS: 1/2 NS + KCL 20 MEQ INJ 1,000 ML IV SCH (09:14)
--- NOTE | 2017-01-08 09:23 | HHI.PR ---
Subjective Remarks Follow up visit SDH, UE DVT, HTN, DM2. Patient seen and examined today. Patient is sitting in bed. Son at the bedside. States no acute issues overnight. Patient is more awake and eating breakfast being fed by his son. States that "I think I'm okay." Denies pain and discomfort. Denies SOB/ dyspnea. Denies chest pain. Objective Vitals Vital Signs Date Time Temp Pulse Resp B/P (MAP) Pulse Ox O2 Delivery O2 Flow Rate FiO2 01/08/17 08:00 97.3 83 18 118/63 (81) 97 01/08/17 07:21 101 01/08/17 04:52 97.9 99 20 133/70 (91) 01/08/17 01:00 97.5 99 20 142/80 (100) 95 01/07/17 22:45 88 01/07/17 21:46 98.1 100 20 162/74 (103) 96 01/07/17 16:00 98.1 95 16 145/75 (98) 96 01/07/17 12:04 98 01/07/17 12:00 97.6 104 16 127/76 (93) 97 I/O 01/07/17 01/07/17 01/07/17 01/08/17 01/08/17 01/08/17 07:00 15:00 23:00 07:00 15:00 23:00 Output Total 375 ml 800 ml 400 ml Balance -375 ml -800 ml -400 ml Output Urine Total 375 ml 800 ml 400 ml # Bowel Movements 1 1 2 1 Imaging Last Impressions Chest X-Ray 01/05/17 0000 Signed Impressions: Service Date/Time: Thursday, January 05, 2017 15:05 - CONCLUSION: 1. Stable chronic interstitial disease bilaterally. 2. Small bilateral pleural effusions. 3. Degenerative changes and scoliosis of the thoracic spine. Juan Manuel Michel MD Brain MRI 12/13/16 0000 Signed Impressions: Service Date/Time: Tuesday, December 13, 2016 12:20 - CONCLUSION: 1. The examination demonstrates multiple small areas of intraparenchymal and extra-axial hemorrhage as described above. These areas are more apparent on the patient's MRI examination than on the CT. Direct comparison is made. The areas of edema and hemorrhage appear similar though they are isointense on the CT. 2. 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 There is cortical atrophy. Anthony Burns MD Upper Extremity Ultrasound 12/02/16 0000 Signed Impressions: Service Date/Time: Saturday, December 03, 2016 00:53 - CONCLUSION: 1. Occlusive DVT in the cephalic and basilic vein on the right. Alex Goode MD Head CT 12/01/16 0000 Signed Impressions: Service Date/Time: Thursday, December 01, 2016 13:14 - CONCLUSION: Evolving intracranial hemorrhagic foci as above, both intra-axial and extra-axial. Jesus Lee MD Modified Barium Swallow 11/30/16 0000 Signed Impressions: Service Date/Time: Wednesday, November 30, 2016 00:00 - CONCLUSION: Please refer to speech pathology report for full details. Lonnie Cook MD Transcranial Doppler Study Complete 11/17/16 0000 Signed Impressions: Service Date/Time: Thursday, November 17, 2016 10:03 - CONCLUSION: 1. Nondiagnostic examination due to poor transcranial windows. Konstantin Dash MD Abdomen X-Ray 11/12/16 0000 Signed Impressions: Service Date/Time: Saturday, November 12, 2016 08:23 - CONCLUSION: 1. Gastric tube in good position. 2. Probable right renal stones. Narayan Coulter MD Cervical Spine CT 11/09/161950 Signed Impressions: Service Date/Time: Wednesday, November 09, 2016 20:14 - CONCLUSION: Negative trauma CT. Cj Isidro MD Objective Remarks GENERAL: This is a thin-appearing, well-developed patient, in no apparent distress. SKIN: Warm and dry. HEENT: Nose without bleeding. Airway patent. NECK: Trachea midline. Supple. CARDIOVASCULAR: Heart rate irregular, rate wnl without murmurs, gallops, or rubs. RESPIRATORY: Diminished bases. No wheezes, rales, or rhonchi. GASTROINTESTINAL: Abdomen soft, non-tender, nondistended. Bowel Sounds normoactive x4. Noriega draining urine with slightly cloudy, yellow. MUSCULOSKELETAL: Extremities without clubbing, cyanosis, bilateral lower extremity trace edema. NEUROLOGICAL: Lethargic/ Drowsy. Moves all extremities weakly. Date of Insertion: Dec 17, 2016 Date of Insertion: Nov 12, 2016 Line: Central Venous Catheter Side: Right Location: Internal, Jugular A/P Problem List: (1) Subdural hematoma ICD Code: I62.00 - Nontraumatic subdural hemorrhage, unspecified Status: Acute (2) Diabetes ICD Code: E11.9 - Type 2 diabetes mellitus without complications Status: Chronic (3) Leukocytosis ICD Code: D72.829 - Elevated white blood cell count, unspecified Status: Acute (4) HTN (hypertension) ICD Code: I10 - Essential (primary) hypertension Status: Chronic (5) Dysphagia ICD Code: R13.10 - Dysphagia, unspecified (6) Urinary tract infection ICD Code: N39.0 - Urinary tract infection, site not specified Assessment and Plan 80 y/o with a history of HTN, DM, and BPH presented to the ED after a fall at home, with a LOC for 10-15 mins. Closed head injury Subdural hematoma Bilateral intracranial hemorrhaging - Managed by neurosurgery and no indication for surgery at this time - Neuro checks, seizure precautions - Continue with Keppra and Dilantin by mouth; monitor level - Lethargic in am. Metabolic encephalopathy - head CT 12/01/16 showed Bilateral hypodense subdural hematomas are seen in the occipital region and along the tentorium cerebelli on the right as well as small right frontal subdural hematoma unchanged. The left frontal parenchymal bleed is decreased in density with a small amount of edema identified. There is atrophy and moderate confluent hypodense white matter disease in the periventricular regions. The right frontal and left insular bleeds are much less conspicuous with a small amount of residual high density in the right frontal region with a small amount of surrounding edema. There is no midline shift or mass effect. Vascular calcifications are noted. No fractures. - CXR with improving aeration - Continue neurochecks - Ammonia level within normal. ABG without any changes. - Repeat brain MRI 12/13/16 showed 1. Examination demonstrates multiple small areas of intraparenchymal and extra ache she'll hemorrhage as described above he Sears are more apparent on the patient's MRI examination done on the CT. Direct comparison is made. The areas of edema and hemorrhage appears similar though they are isointense on the CT. 2. 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 There is cortical atrophy. - Patient remains lethargic on and off. This is probably new baseline. Leukocytosis Anemia - Hematology following. Ordered other testing R/O other bone marrow abnormality. Follow results. - Blood cultures no growth in 5 days. Off antibiotics. 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 - Avoid unnecessary blood draws Respiratory insufficiency - Chest x-ray with improvement in aeration - Continue CPT - Schedule and DuoNeb when necessary and maintain oxygen saturation above 92% - Improving aeration with CXR - Off NC, tolerating RA Atrial fibrillation Hypertension - Continue with Lopressor 25mg TID - better rate control and BP control - Oral anticoagulation contraindicated secondary to intracranial bleed - Monitor BP Trend, HR Decubitus ulcer, DTI sacral area - Continue Santyl - Wound care following. Recommends mable thick coverage of santyl ointment to wound bed on sacral area and cover with Slightly moistened Maxorb II ( Calcium alginate) dressing. Cover with ABD pad secured with tape or cover with bordered gauze. 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 Monitor accucheck Occlusive DVT in cephalic vein right upper extremity - Hematology consultation appreciated however oral anticoagulation contraindicated - Avoid IV access RUE Dysphagia secondary to intracranial hemorrhage - Barium swallow study normal - Reassess by speech for swallowing evaluation. Recommends pure diet, nectar thickened consistency liquids. - Aspiration precaution Generalized weakness, prolonged hospitalization - Encourage family to do ROM exercises with patient while in bed. Needs to be aggressive with increase activity, OOB-chair, if patient has pain, to be addressed with pain medication -tylenol. - Discuss with family members that pain should not deter him to increase his activities or being OOB to chair. - Encourage activities in the morning so that patient can stay awake. Urinary tract infection, resolved - off antibiotics - Plan for voiding trial when more awake and active. Prophylaxis GI - lanosprazole DVT - SCD/pharmacological prophylaxis when okay with neurosurgery Discuss with patient, nursing, Dr. Warren Discharge Planning As per CM note, [facility] when they are ready for patient transfer. Plan for patient to go back to [facility]. Pending Medicaid application. CM following. Difficult SNF placement. Problem Qualifiers (1) HTN (hypertension): Qualified Codes: I10 - Essential (primary) hypertension Veronica Coley [facility] Jan 08, 2017 09:23
[2017-01-08] MEDS: FINASTERIDE 5 MG TAB PO SCH (09:52)
[2017-01-08] MEDS: TOLTERODINE TARTRATE 2 MG CAP LA PO SCH (09:52)
[2017-01-08] MEDS: LANSOPRAZOLE SOLUTAB 30 MG TAB NG SCH (09:52)
[2017-01-08] MEDS: amLODIPine BESYLATE 5 MG TAB PO SCH (09:52)
[2017-01-08] MEDS: PHENYTOIN SODIUM 100 MG CAP PO SCH ×3 (09:53→17:25)
[2017-01-08] MEDS: INSULIN DETEMIR 100 UNITS/ML VIAL SQ SCH ×2 (09:53→22:55)
[2017-01-08] MEDS: FUROSEMIDE 40 MG TAB PO SCH (09:53)
[2017-01-08] MEDS: MEGESTROL ACETATE SUSP 400 MG/10 ML CUP PO SCH (09:53)
[2017-01-08] MEDS: ARTIFICIAL TEARS OPTH SOLN 15 ML BTL EACH EYE SCH ×3 (09:54→17:25)
[2017-01-08] MEDS: MUPIROCIN 2% CREAM 15 GM TOPICAL SCH ×2 (09:54→21:07)
[2017-01-08] MEDS: SODIUM CHLORIDE 0.9% FLUSH 10 ML FLUSH IV FLUSH SCH ×2 (09:54→21:06)
[2017-01-08] MEDS: CHLORHEXIDINE 0.12% (ORAL KIT) 15 ML CUP MT SCH ×2 (09:55→21:06)
--- NOTE | 2017-01-08 09:56 | HHI.NSPN ---
(Brennon WhitePraetek MACIAS) History Interval History 12/07: Patient opens eyes to voice, smiles, questionable followed simple command left UE x one, not following commands other extremities. Not verbalizing. 12/13: Patient reported to be sleeping a little better at night. Still lethargic much of the day. According to family he is saying a few words and responds to questions, remains confused, following a few commands occasionally. 12/15: Patient extremely lethargic. No response to verbal stimulation but did withdraw upper extremities and open eyes to localised noxious stimulation. Slight moaning but no other response. 12/16: The patient is lethargic but less so today. He was noted to open his eyes and move both upper extremities spontaneously. He did respond to some commands weakly but did not verbalise. 12/19: This morning the patient is seen in rounds with Dr. Godfrey. The patient is awake and alert and did track with his eyes. 12/23: When seen this morning the patient's daughter is feeding him. He does spontaneously open his eyes and move the upper extremities. He does appear to track with the eyes. 12/25: The patient is awake this morning and moving the right upper extremity spontaneously. He is watching Nursing and his family as they move about in the room. The daezthgn-sn-cgo reports that the embassy is to call the hospital once everything is ready for the patient to be transferred back to [facility] or if they need any further information. She says her , the patient's son, spoke with the embassy yesterday. 12/29: The patient is asleep but awakens to verbal stimulation. He spontaneously moves both upper extremities and follows some commands on the right side. 12/30: This morning the patient is lethargic. He briefly opens his eyes but does not follow commands. His daughter/dxidsfgt-an-ocr reports that he was awake all night due to his coughing. She does state that they are waiting to hear when air trans will be coming to [employer] pick[employer] the patient. 01/01: The patient is asleep when seen. He does awaken to voice and moves the upper extremities spontaneously. His daughter/bbltqjxq-ks-pja reports that he does say a few words and at times it seems he is searching for the word he wants but is unable to find it. 01/03: The patient is awake and alert when seen and readily interacts. He reaches his hand out to shake mine. He is verbalising although his voice is slightly gravely. He does speak some in Paraguayan. 01/04: This morning the patient is awake and alert when seen. He readily interacts. His voice is a little stronger. He speaks in [place] and Azeri. His daughter/rhrfsrly-sz-dux states he is confused and doesn't remember seeing this practitioner yesterday. 01/05: When seen the patient is awake and alert. He readily interacts and speaks in a little Paraguayan with this practitioner but primarily in Azeri. The daughter/euvwvlwu-lm-ahf reports that the patient didn't sleep the last two nights due to coughing. 01/07: This afternoon the patient is awake and fairly alert. He is verbalising in Azeri. He is moving the upper extremities spontaneously. 01/08: The patient when seen intially this morning with Dr Godfrey was awake and alert in bed and tracking between people. He did verbalise in Azeri and moved the upper extremities spontaneously. His son stated that he did recognise his grandchildren and knew their names. He also said that his conversation is appropriate at times. This afternoon the patient is asleep when seen. (Brennon White) Exam Results 01/06/17 01/06/17 01/07/17 01/07/17 01/08/17 01/08/17 06:00 18:00 06:00 18:00 06:00 18:00 Output Total 875 ml 702 ml 700 ml 1200 ml Balance -875 ml -702 ml -700 ml -1200 ml Output Urine Total 875 ml 700 ml 700 ml 1200 ml Stool Total 2 ml # Bowel Movements 2 2 3 1 Vital Signs Date Time Temp Pulse Resp B/P (MAP) Pulse Ox O2 Delivery O2 Flow Rate FiO2 01/08/17 08:00 97.3 83 18 118/63 (81) 97 01/08/17 07:21 101 01/08/17 04:52 97.9 99 20 133/70 (91) 01/08/17 01:00 97.5 99 20 142/80 (100) 95 01/07/17 22:45 88 01/07/17 21:46 98.1 100 20 162/74 (103) 96 01/07/17 16:00 98.1 95 16 145/75 (98) 96 01/07/17 12:04 98 01/07/17 12:00 97.6 104 16 127/76 (93) 97 01/07/17 08:00 97.3 95 16 141/73 (95) 97 01/07/17 04:00 97.8 99 20 165/81 (109) 98 01/07/17 00:00 98.0 92 20 130/68 (88) 100 01/06/17 20:00 97.6 88 20 126/60 (82) 97 01/06/17 19:00 88 01/06/17 15:47 98.0 97 18 113/64 (80) 98 01/06/17 11:44 98.8 92 18 158/68 (98) 98 01/06/17 08:00 99 01/06/17 08:00 97.5 100 20 133/63 (86) 94 01/06/17 04:00 97.5 91 20 101/59 (73) 93 01/06/17 00:00 97.9 84 20 135/73 (93) 96 01/05/17 20:00 97.6 86 20 122/58 (79) 97 01/05/17 19:00 81 01/05/17 16:56 97.6 95 18 143/73 (96) 96 01/05/17 12:50 97.3 98 19 130/77 (94) 95 (Brennon White) Physical Examination The following is from this morning's encounter. GENERAL: Awake & alert, readily interacts and verbalises. EYES: Tracking. MUSCULOSKELETAL: Moves upper extremities spontaneously. NEUROLOGICAL: Awake & alert. Eyes open spontaneously. Tracking. Speech slightly garbled, speaking in Azeri. Spontaneously moving upper extremities. No movement of BLE. (Brennon White) Medical Decision Making Impression and Plan Impression/plan: 1. Traumatic brain injury. Most recent CT scan stable with resolving contusions, stable mild to moderate subdural fluid collections without significant mass effect. Mental status fluctuating throughout the day but overall stable over the past week. 2. Jane UTI. Treated. 12/13/16 follow-up urine culture growth at 48 hours 3. Hypertension, atrial fibrillation. Remains on Lopressor. 3. Recent seizures. He remains on Keppra and Dilantin. 4. Sacral decubitus ulcer. Continuing decubitus precautions, wound care, Santyl 5. Leukocytosis. Hematology following-workup in progress. 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 6. Diabetes. Remains on insulin sliding scale. 7. Respiratory insufficiency. Improved. Stable on room air Family is continuing efforts to have the patient transferred back to [facility]. They are waiting for acceptance at the hospital. Patient awake and interacts, moving upper extremities purposefully. He is verbalising in Azeri, speech slightly garbled. Medical management per Hospitalist. No active issues for Neurosurgery. Discussed plan of care with patient's son. He asked if his father needed to stay in the hospital until he is transported back to [facility]. Discussed with him options of having him got to a SNF or to his home if family is able to provided care and that home health might also be available. Will discuss with Care Management. (Brennon White) Attending Statement The exam, history, and the medical decision-making described in the above note were completed with the assistance of the mid-level provider. I reviewed and agree with the findings presented. I attest that I had a [id number]-[id number] encounter with the patient on the same day, and personally performed and documented my assessment and findings in the medical record. Awake and alert today. Vital signs satisfactory Continues to work with therapy Stable from neurosurgical standpoint (Tony Godfrey MD) Brennon White Jan 08, 2017 09:56 Tony Godfrey MD Jan 09, 2017 19:29
[2017-01-08] MEDS: TAMSULOSIN HCL 0.4 MG CAP PO SCH (21:07)
[2017-01-09] VITALS (8 sets, daily range): BP systolic 100–147; BP diastolic 53–81; PULSE 84–98; RESP 16–20; TEMP 97.6–98.1; O2SAT 95–99
[2017-01-09] MEDS: levETIRAcetam 500 MG TAB PO SCH ×3 (05:58→21:11)
[2017-01-09] MEDS: METOPROLOL TARTRATE 50 MG TAB PO SCH ×3 (05:58→21:11)
[2017-01-09] MEDS: INSULIN NovoLIN REGULAR SUPPLEMENTAL SCALE SQ SCH ×4 (08:00→21:27)
[2017-01-09] MEDS: CHLORHEXIDINE 0.12% (ORAL KIT) 15 ML CUP MT SCH ×2 (08:00→21:32)
[2017-01-09] MEDS: SODIUM CHLORIDE 0.9% FLUSH 10 ML FLUSH IVF SCH (08:26)
[2017-01-09] MEDS: POLYETHYLENE GLYCOL 17 GM PKG OG-TUBE SCH ×2 (08:33→21:33)
[2017-01-09] MEDS: DOCUSATE SODIUM 100 MG/10 ML UDC PO SCH ×2 (08:34→21:32)
[2017-01-09] MEDS: FINASTERIDE 5 MG TAB PO SCH (08:35)
[2017-01-09] MEDS: amLODIPine BESYLATE 5 MG TAB PO SCH (08:35)
[2017-01-09] MEDS: LANSOPRAZOLE SOLUTAB 30 MG TAB NG SCH (08:35)
[2017-01-09] MEDS: PHENYTOIN SODIUM 100 MG CAP PO SCH ×3 (08:35→17:36)
[2017-01-09] MEDS: TOLTERODINE TARTRATE 2 MG CAP LA PO SCH (08:35)
[2017-01-09] MEDS: SODIUM CHLORIDE 0.9% FLUSH 10 ML FLUSH IV FLUSH SCH ×2 (08:35→21:33)
[2017-01-09] MEDS: COLLAGENASE OINT 30 GM TUBE TOPICAL SCH ×2 (08:36→08:37)
[2017-01-09] MEDS: MEGESTROL ACETATE SUSP 400 MG/10 ML CUP PO SCH (08:36)
[2017-01-09] MEDS: INSULIN DETEMIR 100 UNITS/ML VIAL SQ SCH ×2 (08:36→21:26)
[2017-01-09] MEDS: FUROSEMIDE 40 MG TAB PO SCH (08:36)
[2017-01-09] MEDS: ARTIFICIAL TEARS OPTH SOLN 15 ML BTL EACH EYE SCH ×3 (08:37→17:35)
[2017-01-09] MEDS: MUPIROCIN 2% CREAM 15 GM TOPICAL SCH ×2 (08:37→21:32)
--- NOTE | 2017-01-09 09:21 | HHI.NSPN ---
(Villa Whiterhonda MACIAS) History Chief Complaint: Unable to obtain due to patient's clinical condition. (Villa Whiterhonda MACIAS) Interval History 12/07: Patient opens eyes to voice, smiles, questionable followed simple command left UE x one, not following commands other extremities. Not verbalizing. 12/13: Patient reported to be sleeping a little better at night. Still lethargic much of the day. According to family he is saying a few words and responds to questions, remains confused, following a few commands occasionally. 12/15: Patient extremely lethargic. No response to verbal stimulation but did withdraw upper extremities and open eyes to localised noxious stimulation. Slight moaning but no other response. 12/16: The patient is lethargic but less so today. He was noted to open his eyes and move both upper extremities spontaneously. He did respond to some commands weakly but did not verbalise. 12/19: This morning the patient is seen in rounds with Dr. Godfrey. The patient is awake and alert and did track with his eyes. 12/23: When seen this morning the patient's daughter is feeding him. He does spontaneously open his eyes and move the upper extremities. He does appear to track with the eyes. 12/25: The patient is awake this morning and moving the right upper extremity spontaneously. He is watching Nursing and his family as they move about in the room. The yvnjyvvv-hi-mao reports that the embassy is to call the hospital once everything is ready for the patient to be transferred back to [facility] or if they need any further information. She says her , the patient's son, spoke with the embassy yesterday. 12/29: The patient is asleep but awakens to verbal stimulation. He spontaneously moves both upper extremities and follows some commands on the right side. 12/30: This morning the patient is lethargic. He briefly opens his eyes but does not follow commands. His daughter/qccdudsd-xm-zjx reports that he was awake all night due to his coughing. She does state that they are waiting to hear when air trans will be coming to [employer] material [employer] the patient. 01/01: The patient is asleep when seen. He does awaken to voice and moves the upper extremities spontaneously. His daughter/ekzuhhhk-zr-bbl reports that he does say a few words and at times it seems he is searching for the word he wants but is unable to find it. 01/03: The patient is awake and alert when seen and readily interacts. He reaches his hand out to shake mine. He is verbalising although his voice is slightly gravely. He does speak some in Welsh. 01/04: This morning the patient is awake and alert when seen. He readily interacts. His voice is a little stronger. He speaks in Welsh and Latvian. His daughter/ozdlnpev-xb-ukh states he is confused and doesn't remember seeing this practitioner yesterday. 01/05: When seen the patient is awake and alert. He readily interacts and speaks in a little Welsh with this practitioner but primarily in Latvian. The daughter/peqsutiq-rs-rwn reports that the patient didn't sleep the last two nights due to coughing. 01/07: This afternoon the patient is awake and fairly alert. He is verbalising in Latvian. He is moving the upper extremities spontaneously. 01/08: The patient when seen intially this morning with Dr Godfrey was awake and alert in bed and tracking between people. He did verbalise in Latvian and moved the upper extremities spontaneously. His son stated that he did recognise his grandchildren and knew their names. He also said that his conversation is appropriate at times. This afternoon the patient is asleep when seen. 01/09: When seen this morning the patient is lethargic. He does open his eyes to voice but he does not verbalise. He spontaneously moves the upper extremities. (Brennon White) System Review Comments Unable to obtain due to patient's clinical condition. (Brennon White) Exam Results 01/07/17 01/07/17 01/08/17 01/08/17 01/09/17 01/09/17 06:00 18:00 06:00 18:00 06:00 18:00 Output Total 700 ml 1200 ml 675 ml 450 ml 400 ml Balance -700 ml -1200 ml -675 ml -450 ml -400 ml Output Urine Total 700 ml 1200 ml 675 ml 450 ml 400 ml # Bowel Movements 2 3 1 4 5 Vital Signs Date Time Temp Pulse Resp B/P (MAP) Pulse Ox O2 Delivery O2 Flow Rate FiO2 01/09/17 08:32 97.6 87 18 147/68 (94) 96 01/09/17 04:57 97.6 89 16 133/63 (86) 95 01/09/17 02:58 84 01/09/17 00:43 98.1 86 18 141/65 (90) 96 01/08/17 20:30 98.1 98 18 136/72 (93) 95 01/08/17 16:24 97.0 89 18 148/65 (92) 97 01/08/17 12:00 97.6 97 18 128/62 (84) 97 01/08/17 08:00 97.3 83 18 118/63 (81) 97 01/08/17 07:21 101 01/08/17 04:52 97.9 99 20 133/70 (91) 01/08/17 01:00 97.5 99 20 142/80 (100) 95 01/07/17 22:45 88 01/07/17 21:46 98.1 100 20 162/74 (103) 96 01/07/17 16:00 98.1 95 16 145/75 (98) 96 01/07/17 12:04 98 01/07/17 12:00 97.6 104 16 127/76 (93) 97 01/07/17 08:00 97.3 95 16 141/73 (95) 97 01/07/17 04:00 97.8 99 20 165/81 (109) 98 01/07/17 00:00 98.0 92 20 130/68 (88) 100 01/06/17 20:00 97.6 88 20 126/60 (82) 97 01/06/17 19:00 88 01/06/17 15:47 98.0 97 18 113/64 (80) 98 01/06/17 11:44 98.8 92 18 158/68 (98) 98 (Brennon White) Physical Examination GENERAL: Lethargic but responds to voice, minimally interacts, no apparent distress. EYES: PERRLA, does track. MUSCULOSKELETAL: Moves upper extremities spontaneously. NEUROLOGICAL: Lethargic but responds to voice. Opens eyes to voice, tracks. No verbalisation. Does not follow commands. Spontaneously moving upper extremities. No movement of BLE. (Brennon White) Medical Decision Making Impression and Plan Impression/plan: 1. Traumatic brain injury. Most recent CT scan stable with resolving contusions, stable mild to moderate subdural fluid collections without significant mass effect. Mental status fluctuating throughout the day but overall stable over the past week. 2. Jane UTI. Treated. 12/13/16 follow-up urine culture growth at 48 hours 3. Hypertension, atrial fibrillation. Remains on Lopressor. 3. Recent seizures. He remains on Keppra and Dilantin. 4. Sacral decubitus ulcer. Continuing decubitus precautions, wound care, Santyl 5. Leukocytosis. Hematology following-workup in progress. 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 6. Diabetes. Remains on insulin sliding scale. 7. Respiratory insufficiency. Improved. Stable on room air Family is continuing efforts to have the patient transferred back to [facility]. They are waiting for acceptance at the hospital. Patient lethargic but responds to voice, moving upper extremities purposefully. Nonverbal, not following commands. Medical management per Hospitalist. No active issues for Neurosurgery. (Brennon White) Attending Statement The exam, history, and the medical decision-making described in the above note were completed with the assistance of the mid-level provider. I reviewed and agree with the findings presented. I attest that I had a [id number] encounter with the patient on the same day, and personally performed and documented my assessment and findings in the medical record. Mildly lethargic this morning No new problems reported per nursing staff Afebrile Continuing sacral decubitus care Continuing therapies Family continues to work on transfer back to [facility] (Tony Godfrey MD) Brennon White Jan 09, 2017 09:21 Tony Godfrey MD Jan 09, 2017 19:30
--- NOTE | 2017-01-09 11:08 | HHI.PR ---
Subjective Remarks Follow up visit SDH, UE DVT, HTN, DM2. Patient seen and examined today. Patient is laying in bed. Says "Hello" . On and off lethargic noted but more awake today. Patient has been getting out of bed every day and sitting in the chair near to nurses station. Appears comfortable. Objective Vitals Vital Signs Date Time Temp Pulse Resp B/P (MAP) Pulse Ox O2 Delivery O2 Flow Rate FiO2 01/09/17 08:32 97.6 87 18 147/68 (94) 96 01/09/17 04:57 97.6 89 16 133/63 (86) 95 01/09/17 02:58 84 01/09/17 00:43 98.1 86 18 141/65 (90) 96 01/08/17 20:30 98.1 98 18 136/72 (93) 95 01/08/17 16:24 97.0 89 18 148/65 (92) 97 01/08/17 12:00 97.6 97 18 128/62 (84) 97 I/O 01/08/17 01/08/17 01/08/17 01/09/17 01/09/17 01/09/17 07:00 15:00 23:00 07:00 15:00 23:00 Output Total 400 ml 725 ml 800 ml Balance -400 ml -725 ml -800 ml Output Urine Total 400 ml 725 ml 800 ml # Bowel Movements 2 1 1 8 Imaging Last Impressions Chest X-Ray 01/05/17 0000 Signed Impressions: Service Date/Time: Thursday, January 05, 2017 15:05 - CONCLUSION: 1. Stable chronic interstitial disease bilaterally. 2. Small bilateral pleural effusions. 3. Degenerative changes and scoliosis of the thoracic spine. Juan Manuel Michel MD Brain MRI 12/13/16 0000 Signed Impressions: Service Date/Time: Tuesday, December 13, 2016 12:20 - CONCLUSION: 1. The examination demonstrates multiple small areas of intraparenchymal and extra-axial hemorrhage as described above. These areas are more apparent on the patient's MRI examination than on the CT. Direct comparison is made. The areas of edema and hemorrhage appear similar though they are isointense on the CT. 2. 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 There is cortical atrophy. Anthony Burns MD Upper Extremity Ultrasound 12/02/16 0000 Signed Impressions: Service Date/Time: Saturday, December 03, 2016 00:53 - CONCLUSION: 1. Occlusive DVT in the cephalic and basilic vein on the right. Alex Goode MD Head CT 12/01/16 0000 Signed Impressions: Service Date/Time: Thursday, December 01, 2016 13:14 - CONCLUSION: Evolving intracranial hemorrhagic foci as above, both intra-axial and extra-axial. Jesus Lee MD Modified Barium Swallow 11/30/16 0000 Signed Impressions: Service Date/Time: Wednesday, November 30, 2016 00:00 - CONCLUSION: Please refer to speech pathology report for full details. Lonnie Cook MD Transcranial Doppler Study Complete 11/17/16 0000 Signed Impressions: Service Date/Time: Thursday, November 17, 2016 10:03 - CONCLUSION: 1. Nondiagnostic examination due to poor transcranial windows. Konstantin Dash MD Abdomen X-Ray 11/12/16 0000 Signed Impressions: Service Date/Time: Saturday, November 12, 2016 08:23 - CONCLUSION: 1. Gastric tube in good position. 2. Probable right renal stones. Narayan Coulter MD Cervical Spine CT 11/09/161950 Signed Impressions: Service Date/Time: Wednesday, November 09, 2016 20:14 - CONCLUSION: Negative trauma CT. Cj Isidro MD Objective Remarks GENERAL: This is a thin-appearing, well-developed patient, in no apparent distress. SKIN: Warm and dry. HEENT: Nose without bleeding. Airway patent. NECK: Trachea midline. Supple. CARDIOVASCULAR: Heart rate irregular, rate wnl without murmurs, gallops, or rubs. RESPIRATORY: Diminished bases. No wheezes, rales, or rhonchi. GASTROINTESTINAL: Abdomen soft, non-tender, nondistended. Bowel Sounds normoactive x4. Noriega draining urine with slightly cloudy, yellow. MUSCULOSKELETAL: Extremities without clubbing, cyanosis, bilateral lower extremity trace edema. NEUROLOGICAL: Lethargic/ Drowsy. Moves all extremities weakly. Date of Insertion: Dec 17, 2016 Date of Insertion: Nov 12, 2016 Line: Central Venous Catheter Side: Right Location: Internal, Jugular A/P Problem List: (1) Subdural hematoma ICD Code: I62.00 - Nontraumatic subdural hemorrhage, unspecified Status: Acute (2) Diabetes ICD Code: E11.9 - Type 2 diabetes mellitus without complications Status: Chronic (3) Leukocytosis ICD Code: D72.829 - Elevated white blood cell count, unspecified Status: Acute (4) HTN (hypertension) ICD Code: I10 - Essential (primary) hypertension Status: Chronic (5) Dysphagia ICD Code: R13.10 - Dysphagia, unspecified (6) Urinary tract infection ICD Code: N39.0 - Urinary tract infection, site not specified Assessment and Plan 80 y/o with a history of HTN, DM, and BPH presented to the ED after a fall at home, with a LOC for 10-15 mins. Closed head injury Subdural hematoma Bilateral intracranial hemorrhaging - Managed by neurosurgery and no indication for surgery at this time - Neuro checks, seizure precautions - Continue with Keppra and Dilantin by mouth; monitor level - Lethargic in am. Metabolic encephalopathy - head CT 12/01/16 showed Bilateral hypodense subdural hematomas are seen in the occipital region and along the tentorium cerebelli on the right as well as small right frontal subdural hematoma unchanged. The left frontal parenchymal bleed is decreased in density with a small amount of edema identified. There is atrophy and moderate confluent hypodense white matter disease in the periventricular regions. The right frontal and left insular bleeds are much less conspicuous with a small amount of residual high density in the right frontal region with a small amount of surrounding edema. There is no midline shift or mass effect. Vascular calcifications are noted. No fractures. - CXR with improving aeration - Continue neurochecks - Ammonia level within normal. ABG without any changes. - Repeat brain MRI 12/13/16 showed 1. Examination demonstrates multiple small areas of intraparenchymal and extra ache she'll hemorrhage as described above he Sears are more apparent on the patient's MRI examination done on the CT. Direct comparison is made. The areas of edema and hemorrhage appears similar though they are isointense on the CT. 2. 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 There is cortical atrophy. - Patient remains lethargic on and off. This is probably new baseline. Leukocytosis Anemia - Hematology following. Ordered other testing R/O other bone marrow abnormality. Follow results. - Blood cultures no growth in 5 days. Off antibiotics. 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 - Avoid unnecessary blood draws Respiratory insufficiency - Chest x-ray with improvement in aeration - Continue CPT - Schedule and DuoNeb when necessary and maintain oxygen saturation above 92% - Improving aeration with CXR - Off NC, tolerating RA Atrial fibrillation Hypertension - Continue with Lopressor 25mg TID - better rate control and BP control - Oral anticoagulation contraindicated secondary to intracranial bleed - Monitor BP Trend, HR Decubitus ulcer, DTI sacral area - Continue Santyl - Wound care following. Recommends mable thick coverage of santyl ointment to wound bed on sacral area and cover with Slightly moistened Maxorb II ( Calcium alginate) dressing. Cover with ABD pad secured with tape or cover with bordered gauze. 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 Monitor accucheck Occlusive DVT in cephalic vein right upper extremity - Hematology consultation appreciated however oral anticoagulation contraindicated - Avoid IV access RUE Dysphagia secondary to intracranial hemorrhage - Barium swallow study normal - Reassess by speech for swallowing evaluation. Recommends pure diet, nectar thickened consistency liquids. - Aspiration precaution Generalized weakness, prolonged hospitalization - Encourage family to do ROM exercises with patient while in bed. Needs to be aggressive with increase activity, OOB-chair, if patient has pain, to be addressed with pain medication -tylenol. - Discuss with family members that pain should not deter him to increase his activities or being OOB to chair. - Encourage activities in the morning so that patient can stay awake. Urinary tract infection, resolved - off antibiotics - Plan for voiding trial when more awake and active. Prophylaxis GI - lanosprazole DVT - SCD/pharmacological prophylaxis when okay with neurosurgery Discuss with patient, nursing, Dr. Warren Discharge Planning Plan is for patient to leave out of the country to go to [facility] on Thursday, January 11. Family has arranged for transport with a [employer] [facility]. Case management following Problem Qualifiers (1) HTN (hypertension): Qualified Codes: I10 - Essential (primary) hypertension Veronica Coley Jan 09, 2017 11:07
[2017-01-09] MEDS: TAMSULOSIN HCL 0.4 MG CAP PO SCH (21:11)
[2017-01-10] VITALS (8 sets, daily range): BP systolic 111–144; BP diastolic 55–76; PULSE 82–98; RESP 16–18; TEMP 97.3–98.5; O2SAT 95–98
[2017-01-10] MEDS: METOPROLOL TARTRATE 50 MG TAB PO SCH ×3 (05:40→22:23)
[2017-01-10] MEDS: levETIRAcetam 500 MG TAB PO SCH ×3 (05:40→22:23)
[2017-01-10] MEDS: INSULIN NovoLIN REGULAR SUPPLEMENTAL SCALE SQ SCH ×4 (08:45→21:00)
[2017-01-10] MEDS: POLYETHYLENE GLYCOL 17 GM PKG OG-TUBE SCH ×2 (08:45→21:00)
[2017-01-10] MEDS: INSULIN DETEMIR 100 UNITS/ML VIAL SQ SCH ×2 (08:45→21:00)
[2017-01-10] MEDS: TOLTERODINE TARTRATE 2 MG CAP LA PO SCH (08:45)
[2017-01-10] MEDS: MUPIROCIN 2% CREAM 15 GM TOPICAL SCH ×2 (08:45→22:24)
[2017-01-10] MEDS: FINASTERIDE 5 MG TAB PO SCH (08:45)
[2017-01-10] MEDS: PHENYTOIN SODIUM 100 MG CAP PO SCH ×3 (08:45→18:29)
[2017-01-10] MEDS: ARTIFICIAL TEARS OPTH SOLN 15 ML BTL EACH EYE SCH ×3 (08:45→18:29)
[2017-01-10] MEDS: DOCUSATE SODIUM 100 MG/10 ML UDC PO SCH ×2 (08:45→21:00)
[2017-01-10] MEDS: LANSOPRAZOLE SOLUTAB 30 MG TAB NG SCH (08:45)
[2017-01-10] MEDS: CHLORHEXIDINE 0.12% (ORAL KIT) 15 ML CUP MT SCH ×2 (08:45→20:00)
[2017-01-10] MEDS: FUROSEMIDE 40 MG TAB PO SCH (08:45)
[2017-01-10] MEDS: MEGESTROL ACETATE SUSP 400 MG/10 ML CUP PO SCH (08:45)
[2017-01-10] MEDS: COLLAGENASE OINT 30 GM TUBE TOPICAL SCH ×2 (08:45)
[2017-01-10] MEDS: amLODIPine BESYLATE 5 MG TAB PO SCH (08:45)
[2017-01-10] MEDS: SODIUM CHLORIDE 0.9% FLUSH 10 ML FLUSH IVF SCH (09:00)
[2017-01-10] MEDS: SODIUM CHLORIDE 0.9% FLUSH 10 ML FLUSH IV FLUSH SCH ×2 (09:00→22:21)
--- NOTE | 2017-01-10 16:17 | HHI.PR ---
Subjective Remarks Follow up visit SDH, UE DVT, HTN, DM2. Patient seen and examined today. Patient is laying in bed. Very conversant and alert. Confuse. Asking for where his son or daughter is. States he is home. Reorientation done. Patient coughs on and off. Denies pain or discomfort. Objective Vitals Vital Signs Date Time Temp Pulse Resp B/P (MAP) Pulse Ox O2 Delivery O2 Flow Rate FiO2 01/10/17 12:00 97.6 96 18 131/63 (85) 98 01/10/17 08:00 97.5 88 16 111/55 (73) 95 01/10/17 05:49 98 01/10/17 05:23 98.5 93 18 144/66 (92) 96 01/10/17 00:18 98.2 84 18 123/76 (92) 96 01/09/17 19:00 97.7 98 20 112/69 (83) 97 01/09/17 16:18 97.7 91 18 100/53 (69) 99 I/O 01/09/17 01/09/17 01/09/17 01/10/17 01/10/17 01/10/17 07:00 15:00 23:00 07:00 15:00 23:00 Intake Total 480 ml 60 ml Output Total 800 ml 700 ml 500 ml 160 ml 550 ml Balance -800 ml -220 ml -500 ml -100 ml -550 ml Intake Oral 480 ml 60 ml Output Urine Total 800 ml 700 ml 500 ml 160 ml 550 ml # Voids 1 # Bowel Movements 8 2 Imaging Last Impressions Chest X-Ray 01/05/17 0000 Signed Impressions: Service Date/Time: Thursday, January 05, 2017 15:05 - CONCLUSION: 1. Stable chronic interstitial disease bilaterally. 2. Small bilateral pleural effusions. 3. Degenerative changes and scoliosis of the thoracic spine. Juan Manuel Michel MD Brain MRI 12/13/16 0000 Signed Impressions: Service Date/Time: Tuesday, December 13, 2016 12:20 - CONCLUSION: 1. The examination demonstrates multiple small areas of intraparenchymal and extra-axial hemorrhage as described above. These areas are more apparent on the patient's MRI examination than on the CT. Direct comparison is made. The areas of edema and hemorrhage appear similar though they are isointense on the CT. 2. 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 There is cortical atrophy. Anthony Burns MD Upper Extremity Ultrasound 12/02/16 0000 Signed Impressions: Service Date/Time: Saturday, December 03, 2016 00:53 - CONCLUSION: 1. Occlusive DVT in the cephalic and basilic vein on the right. Alex Goode MD Head CT 12/01/16 0000 Signed Impressions: Service Date/Time: Thursday, December 01, 2016 13:14 - CONCLUSION: Evolving intracranial hemorrhagic foci as above, both intra-axial and extra-axial. Jesus Lee MD Modified Barium Swallow 11/30/16 0000 Signed Impressions: Service Date/Time: Wednesday, November 30, 2016 00:00 - CONCLUSION: Please refer to speech pathology report for full details. Lonnie Cook MD Transcranial Doppler Study Complete 11/17/16 0000 Signed Impressions: Service Date/Time: Thursday, November 17, 2016 10:03 - CONCLUSION: 1. Nondiagnostic examination due to poor transcranial windows. Konstantin Dash MD Abdomen X-Ray 11/12/16 0000 Signed Impressions: Service Date/Time: Saturday, November 12, 2016 08:23 - CONCLUSION: 1. Gastric tube in good position. 2. Probable right renal stones. Narayan Coulter MD Cervical Spine CT 11/09/161950 Signed Impressions: Service Date/Time: Wednesday, November 09, 2016 20:14 - CONCLUSION: Negative trauma CT. Cj Isidro MD Objective Remarks GENERAL: This is a thin-appearing, well-developed patient, in no apparent distress. SKIN: Warm and dry. HEENT: Nose without bleeding. Airway patent. NECK: Trachea midline. Supple. CARDIOVASCULAR: Heart rate irregular, rate wnl without murmurs, gallops, or rubs. RESPIRATORY: Diminished bases. No wheezes, rales, or rhonchi. GASTROINTESTINAL: Abdomen soft, non-tender, nondistended. Bowel Sounds normoactive x4. Noriega draining urine with slightly cloudy, yellow. MUSCULOSKELETAL: Extremities without clubbing, cyanosis, bilateral lower extremity trace edema. NEUROLOGICAL: Awake and alert. Confuse. Oriented to self. Moves all extremities weakly. Date of Insertion: Dec 17, 2016 Date of Insertion: Nov 12, 2016 Line: Central Venous Catheter Side: Right Location: Internal, Jugular A/P Problem List: (1) Subdural hematoma ICD Code: I62.00 - Nontraumatic subdural hemorrhage, unspecified Status: Acute (2) Diabetes ICD Code: E11.9 - Type 2 diabetes mellitus without complications Status: Chronic (3) Leukocytosis ICD Code: D72.829 - Elevated white blood cell count, unspecified Status: Acute (4) HTN (hypertension) ICD Code: I10 - Essential (primary) hypertension Status: Chronic (5) Dysphagia ICD Code: R13.10 - Dysphagia, unspecified (6) Urinary tract infection ICD Code: N39.0 - Urinary tract infection, site not specified Assessment and Plan 80 y/o with a history of HTN, DM, and BPH presented to the ED after a fall at home, with a LOC for 10-15 mins. Closed head injury Subdural hematoma Bilateral intracranial hemorrhaging - Managed by neurosurgery and no indication for surgery at this time - Neuro checks, seizure precautions - Continue with Keppra and Dilantin by mouth; monitor level - More awake Metabolic encephalopathy - head CT 12/01/16 showed Bilateral hypodense subdural hematomas are seen in the occipital region and along the tentorium cerebelli on the right as well as small right frontal subdural hematoma unchanged. The left frontal parenchymal bleed is decreased in density with a small amount of edema identified. There is atrophy and moderate confluent hypodense white matter disease in the periventricular regions. The right frontal and left insular bleeds are much less conspicuous with a small amount of residual high density in the right frontal region with a small amount of surrounding edema. There is no midline shift or mass effect. Vascular calcifications are noted. No fractures. - CXR with improving aeration - Continue neurochecks - Ammonia level within normal. ABG without any changes. - Repeat brain MRI 12/13/16 showed 1. Examination demonstrates multiple small areas of intraparenchymal and extra ache she'll hemorrhage as described above he Sears are more apparent on the patient's MRI examination done on the CT. Direct comparison is made. The areas of edema and hemorrhage appears similar though they are isointense on the CT. 2. 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 There is cortical atrophy. - More awake and conversant today on exam Leukocytosis Anemia - Hematology following. Ordered other testing R/O other bone marrow abnormality. Follow results. - Blood cultures no growth in 5 days. Off antibiotics. 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 - Avoid unnecessary blood draws Respiratory insufficiency - Chest x-ray with improvement in aeration - Continue CPT - Schedule and DuoNeb when necessary and maintain oxygen saturation above 92% - Improving aeration with CXR - Off NC, tolerating RA Atrial fibrillation Hypertension - Continue with Lopressor 25mg TID - better rate control and BP control - Oral anticoagulation contraindicated secondary to intracranial bleed - Monitor BP Trend, HR Decubitus ulcer, DTI sacral area - Continue Santyl - Wound care following. 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 Monitor accucheck Occlusive DVT in cephalic vein right upper extremity - Hematology consultation appreciated however oral anticoagulation contraindicated - Avoid IV access RUE Dysphagia secondary to intracranial hemorrhage - Barium swallow study normal - Reassess by speech for swallowing evaluation. Recommends pure diet, nectar thickened consistency liquids. - Aspiration precaution Generalized weakness, prolonged hospitalization - Encourage family to do ROM exercises with patient while in bed. Needs to be aggressive with increase activity, OOB-chair, if patient has pain, to be addressed with pain medication -tylenol. - Discuss with family members that pain should not deter him to increase his activities or being OOB to chair. - Encourage activities in the morning so that patient can stay awake. Urinary tract infection, resolved - off antibiotics - Plan for voiding trial when more awake and active. Prophylaxis GI - lanosprazole DVT - SCD/pharmacological prophylaxis when okay with neurosurgery Discuss with patient, nursing, Dr. Warren Discharge Planning Plan is for patient to leave out of the country to go to [facility], January 11. Family has arranged for transport with a [employer]. Case management following Problem Qualifiers (1) HTN (hypertension): Qualified Codes: I10 - Essential (primary) hypertension Veronica Coley Jan 10, 2017 16:17
[2017-01-10] MEDS ORDERED: MEGE40SU PO (16:23)
[2017-01-10] MEDS: TAMSULOSIN HCL 0.4 MG CAP PO SCH (22:24)
[2017-01-11] VITALS (8 sets, daily range): BP systolic 100–146; BP diastolic 60–73; PULSE 69–102; RESP 18–20; TEMP 97.3–98.7; O2SAT 91–98
[2017-01-11] MEDS: levETIRAcetam 500 MG TAB PO SCH ×3 (05:35→21:47)
[2017-01-11] MEDS: METOPROLOL TARTRATE 50 MG TAB PO SCH ×3 (05:35→21:47)
[2017-01-11] MEDS: INSULIN NovoLIN REGULAR SUPPLEMENTAL SCALE SQ SCH ×4 (08:03→21:00)
[2017-01-11] MEDS: ARTIFICIAL TEARS OPTH SOLN 15 ML BTL EACH EYE SCH ×3 (08:48→17:43)
[2017-01-11] MEDS: CHLORHEXIDINE 0.12% (ORAL KIT) 15 ML CUP MT SCH ×2 (08:48→20:00)
[2017-01-11] MEDS: SODIUM CHLORIDE 0.9% FLUSH 10 ML FLUSH IV FLUSH SCH ×2 (08:48→21:46)
[2017-01-11] MEDS: SODIUM CHLORIDE 0.9% FLUSH 10 ML FLUSH IVF SCH (08:49)
--- NOTE | 2017-01-11 09:29 | HHI.PR ---
Subjective Remarks Follow up visit SDH, UE DVT, HTN, DM2. Patient seen and examined today. Patient is laying in bed, asleep. He was up this morning during peripheral line placement, and went back to bed. Daughter at the bedside. Appears comfortable. As per daughter and nurse no acute issues overnight. Objective Vitals Vital Signs Date Time Temp Pulse Resp B/P (MAP) Pulse Ox O2 Delivery O2 Flow Rate FiO2 01/11/17 08:00 97.6 69 18 100/64 (76) 98 01/11/17 05:09 97.5 102 18 133/73 (93) 91 01/11/17 01:26 98.1 95 20 146/67 (93) 95 01/10/17 21:00 95 01/10/17 20:59 97.6 98 18 125/75 (92) 96 01/10/17 16:00 97.3 82 18 118/62 (80) 98 01/10/17 12:00 97.6 96 18 131/63 (85) 98 I/O 01/10/17 01/10/17 01/10/17 01/11/17 01/11/17 01/11/17 07:00 15:00 23:00 07:00 15:00 23:00 Intake Total 60 ml Output Total 160 ml 550 ml 800 ml Balance -100 ml -550 ml -800 ml Intake Oral 60 ml Output Urine Total 160 ml 550 ml 800 ml # Voids 1 # Bowel Movements 1 2 Imaging Last Impressions Chest X-Ray 01/05/17 0000 Signed Impressions: Service Date/Time: Thursday, January 05, 2017 15:05 - CONCLUSION: 1. Stable chronic interstitial disease bilaterally. 2. Small bilateral pleural effusions. 3. Degenerative changes and scoliosis of the thoracic spine. Juan Manuel Michel MD Brain MRI 12/13/16 0000 Signed Impressions: Service Date/Time: Tuesday, December 13, 2016 12:20 - CONCLUSION: 1. The examination demonstrates multiple small areas of intraparenchymal and extra-axial hemorrhage as described above. These areas are more apparent on the patient's MRI examination than on the CT. Direct comparison is made. The areas of edema and hemorrhage appear similar though they are isointense on the CT. 2. 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 There is cortical atrophy. Anthony Burns MD Upper Extremity Ultrasound 12/02/16 0000 Signed Impressions: Service Date/Time: Saturday, December 03, 2016 00:53 - CONCLUSION: 1. Occlusive DVT in the cephalic and basilic vein on the right. Alex Goode MD Head CT 12/01/16 0000 Signed Impressions: Service Date/Time: Thursday, December 01, 2016 13:14 - CONCLUSION: Evolving intracranial hemorrhagic foci as above, both intra-axial and extra-axial. Jesus Lee MD Modified Barium Swallow 11/30/16 Signed Impressions: Service Date/Time: Wednesday, November 30, 2016 00:00 - CONCLUSION: Please refer to speech pathology report for full details. Lonnie Cook MD Transcranial Doppler Study Complete 11/17/16 Signed Impressions: Service Date/Time: Thursday, November 17, 2016 10:03 - CONCLUSION: 1. Nondiagnostic examination due to poor transcranial windows. Konstantin Dash MD Abdomen X-Ray 11/12/16 Signed Impressions: Service Date/Time: Saturday, November 12, 2016 08:23 - CONCLUSION: 1. Gastric tube in good position. 2. Probable right renal stones. Narayan Coulter MD Cervical Spine CT 11/09/161950 Signed Impressions: Service Date/Time: Wednesday, November 09, 2016 20:14 - CONCLUSION: Negative trauma CT. Cj Isidro MD Objective Remarks GENERAL: This is a thin-appearing, well-developed patient, in no apparent distress. SKIN: Warm and dry. HEENT: Nose without bleeding. Airway patent. NECK: Trachea midline. Supple. CARDIOVASCULAR: Heart rate irregular, rate wnl without murmurs, gallops, or rubs. RESPIRATORY: Diminished bases. No wheezes, rales, or rhonchi. GASTROINTESTINAL: Abdomen soft, non-tender, nondistended. Bowel Sounds normoactive x4. Noriega draining urine with slightly cloudy, yellow. MUSCULOSKELETAL: Extremities without clubbing, cyanosis, bilateral lower extremity trace edema. NEUROLOGICAL: Drowsy, sleeping. Moves all extremities weakly. Date of Insertion: Dec 17, 2016 Date of Insertion: Nov 12, 2016 Line: Central Venous Catheter Side: Right Location: Internal, Jugular A/P Problem List: (1) Subdural hematoma ICD Code: I62.00 - Nontraumatic subdural hemorrhage, unspecified Status: Acute (2) Diabetes ICD Code: E11.9 - Type 2 diabetes mellitus without complications Status: Chronic (3) Leukocytosis ICD Code: D72.829 - Elevated white blood cell count, unspecified Status: Acute (4) HTN (hypertension) ICD Code: I10 - Essential (primary) hypertension Status: Chronic (5) Dysphagia ICD Code: R13.10 - Dysphagia, unspecified (6) Urinary tract infection ICD Code: N39.0 - Urinary tract infection, site not specified Assessment and Plan 80 y/o with a history of HTN, DM, and BPH presented to the ED after a fall at home, with a LOC for 10-15 mins. Closed head injury Subdural hematoma Bilateral intracranial hemorrhaging - Managed by neurosurgery and no indication for surgery at this time - Neuro checks, seizure precautions - Continue with Keppra and Dilantin by mouth; monitor level - On and off drowsy. Metabolic encephalopathy - head CT 12/01/16 showed Bilateral hypodense subdural hematomas are seen in the occipital region and along the tentorium cerebelli on the right as well as small right frontal subdural hematoma unchanged. The left frontal parenchymal bleed is decreased in density with a small amount of edema identified. There is atrophy and moderate confluent hypodense white matter disease in the periventricular regions. The right frontal and left insular bleeds are much less conspicuous with a small amount of residual high density in the right frontal region with a small amount of surrounding edema. There is no midline shift or mass effect. Vascular calcifications are noted. No fractures. - CXR with improving aeration - Continue neurochecks - Ammonia level within normal. ABG without any changes. - Repeat brain MRI 12/13/16 showed 1. Examination demonstrates multiple small areas of intraparenchymal and extra ache she'll hemorrhage as described above he Sears are more apparent on the patient's MRI examination done on the CT. Direct comparison is made. The areas of edema and hemorrhage appears similar though they are isointense on the CT. 2. 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 There is cortical atrophy. - On and off drowsy. Leukocytosis Anemia - Hematology following. Ordered other testing R/O other bone marrow abnormality. Follow results. - Blood cultures no growth in 5 days. Off antibiotics. 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 - Avoid unnecessary blood draws Respiratory insufficiency - Chest x-ray with improvement in aeration - Continue CPT - Schedule and DuoNeb when necessary and maintain oxygen saturation above 92% - Improving aeration with CXR - Off NC, tolerating RA Atrial fibrillation Hypertension - Continue with Lopressor 25mg TID - better rate control and BP control - Oral anticoagulation contraindicated secondary to intracranial bleed - Monitor BP Trend, HR Decubitus ulcer, DTI sacral area - Continue Santyl - Wound care following. 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 Monitor accucheck Occlusive DVT in cephalic vein right upper extremity - Hematology consultation appreciated however oral anticoagulation contraindicated - Avoid IV access RUE Dysphagia secondary to intracranial hemorrhage - Barium swallow study normal - Reassess by speech for swallowing evaluation. Recommends pure diet, nectar thickened consistency liquids. - Aspiration precaution Generalized weakness, prolonged hospitalization - Encourage family to do ROM exercises with patient while in bed. Needs to be aggressive with increase activity, OOB-chair, if patient has pain, to be addressed with pain medication -tylenol. - Discuss with family members that pain should not deter him to increase his activities or being OOB to chair. - Encourage activities in the morning so that patient can stay awake. Urinary tract infection, resolved - off antibiotics - Plan for voiding trial when more awake and active. Prophylaxis GI - lanosprazole DVT - SCD/pharmacological prophylaxis when okay with neurosurgery Discuss with patient, nursing, Dr. Haji Discharge Planning Plan is for patient to leave out of the country to go to [facility]. Family has arranged for transport with a [email or web address]. Case management following. Spoke with daughter extensively and states that he is not leaving today as prior discussed. Apparently patient is going to be picked up by a medical wane from [facility] however dyspnea to be coordinated and arranged because he is not the only patient to be transported back via the medical plane to [facility]. They said that the hospital will be notified 3 days prior to patient leaving. They are hoping that the following weekend patient would be able to be transported. Problem Qualifiers (1) HTN (hypertension): Qualified Codes: I10 - Essential (primary) hypertension Veronica Coley Jan 11, 2017 09:29
[2017-01-11] MEDS: POLYETHYLENE GLYCOL 17 GM PKG OG-TUBE SCH ×2 (09:43→21:00)
[2017-01-11] MEDS: FINASTERIDE 5 MG TAB PO SCH (09:43)
[2017-01-11] MEDS: PHENYTOIN SODIUM 100 MG CAP PO SCH ×3 (09:43→17:31)
[2017-01-11] MEDS: DOCUSATE SODIUM 100 MG/10 ML UDC PO SCH ×2 (09:43→21:00)
[2017-01-11] MEDS: LANSOPRAZOLE SOLUTAB 30 MG TAB NG SCH (09:44)
[2017-01-11] MEDS: amLODIPine BESYLATE 5 MG TAB PO SCH (09:44)
[2017-01-11] MEDS: TOLTERODINE TARTRATE 2 MG CAP LA PO SCH (09:44)
[2017-01-11] MEDS: FUROSEMIDE 40 MG TAB PO SCH (09:44)
[2017-01-11] MEDS: INSULIN DETEMIR 100 UNITS/ML VIAL SQ SCH ×2 (09:45→21:00)
[2017-01-11] MEDS: MEGESTROL ACETATE SUSP 400 MG/10 ML CUP PO SCH (09:45)
[2017-01-11] MEDS: MUPIROCIN 2% CREAM 15 GM TOPICAL SCH ×2 (09:50→21:48)
[2017-01-11] MEDS: COLLAGENASE OINT 30 GM TUBE TOPICAL SCH ×2 (09:50)
[2017-01-11] MEDS: TAMSULOSIN HCL 0.4 MG CAP PO SCH (21:47)
[2017-01-12] VITALS (9 sets, daily range): BP systolic 116–135; BP diastolic 66–77; PULSE 81–104; RESP 18–20; TEMP 96.5–98.6; O2SAT 80–99
[2017-01-12] MEDS: METOPROLOL TARTRATE 50 MG TAB PO SCH ×3 (05:47→22:41)
[2017-01-12] MEDS: levETIRAcetam 500 MG TAB PO SCH ×3 (05:47→22:42)
[2017-01-12] MEDS: INSULIN NovoLIN REGULAR SUPPLEMENTAL SCALE SQ SCH ×4 (08:00→22:43)
[2017-01-12] MEDS: CHLORHEXIDINE 0.12% (ORAL KIT) 15 ML CUP MT SCH ×2 (08:00→20:00)
[2017-01-12] MEDS: SODIUM CHLORIDE 0.9% FLUSH 10 ML FLUSH IVF SCH (09:00)
[2017-01-12] MEDS: ARTIFICIAL TEARS OPTH SOLN 15 ML BTL EACH EYE SCH ×3 (09:00→16:53)
[2017-01-12] MEDS: SODIUM CHLORIDE 0.9% FLUSH 10 ML FLUSH IV FLUSH SCH ×2 (09:00→22:44)
[2017-01-12] MEDS: COLLAGENASE OINT 30 GM TUBE TOPICAL SCH ×2 (09:00)
[2017-01-12] MEDS: MUPIROCIN 2% CREAM 15 GM TOPICAL SCH ×2 (09:00→22:43)
[2017-01-12] MEDS: amLODIPine BESYLATE 5 MG TAB PO SCH (09:00)
[2017-01-12] MEDS: MEGESTROL ACETATE SUSP 400 MG/10 ML CUP PO SCH (09:05)
[2017-01-12] MEDS: TOLTERODINE TARTRATE 2 MG CAP LA PO SCH (09:06)
[2017-01-12] MEDS: PHENYTOIN SODIUM 100 MG CAP PO SCH ×3 (09:06→17:56)
[2017-01-12] MEDS: INSULIN DETEMIR 100 UNITS/ML VIAL SQ SCH ×2 (09:06→22:42)
[2017-01-12] MEDS: FUROSEMIDE 40 MG TAB PO SCH (09:06)
[2017-01-12] MEDS: DOCUSATE SODIUM 100 MG/10 ML UDC PO SCH ×2 (09:06→22:41)
[2017-01-12] MEDS: FINASTERIDE 5 MG TAB PO SCH (09:06)
[2017-01-12] MEDS: LANSOPRAZOLE SOLUTAB 30 MG TAB NG SCH (09:07)
[2017-01-12] MEDS: POLYETHYLENE GLYCOL 17 GM PKG OG-TUBE SCH ×2 (09:07→22:41)
--- NOTE | 2017-01-12 11:39 | HHI.NSPN ---
(Brennon WhitePrateek MACIAS) History Interval History 12/07: Patient opens eyes to voice, smiles, questionable followed simple command left UE x one, not following commands other extremities. Not verbalizing. 12/13: Patient reported to be sleeping a little better at night. Still lethargic much of the day. According to family he is saying a few words and responds to questions, remains confused, following a few commands occasionally. 12/15: Patient extremely lethargic. No response to verbal stimulation but did withdraw upper extremities and open eyes to localised noxious stimulation. Slight moaning but no other response. 12/16: The patient is lethargic but less so today. He was noted to open his eyes and move both upper extremities spontaneously. He did respond to some commands weakly but did not verbalise. 12/19: This morning the patient is seen in rounds with Dr. Godfrey. The patient is awake and alert and did track with his eyes. 12/23: When seen this morning the patient's daughter is feeding him. He does spontaneously open his eyes and move the upper extremities. He does appear to track with the eyes. 12/25: The patient is awake this morning and moving the right upper extremity spontaneously. He is watching Nursing and his family as they move about in the room. The pmfcuztu-gg-ymo reports that the embassy is to call the hospital once everything is ready for the patient to be transferred back to [facility] or if they need any further information. She says her , the patient's son, spoke with the embassy yesterday. 12/29: The patient is asleep but awakens to verbal stimulation. He spontaneously moves both upper extremities and follows some commands on the right side. 12/30: This morning the patient is lethargic. He briefly opens his eyes but does not follow commands. His daughter/vswsedoi-zz-aij reports that he was awake all night due to his coughing. 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 01/01: The patient is asleep when seen. He does awaken to voice and moves the upper extremities spontaneously. His daughter/njdatafs-mr-yro reports that he does say a few words and at times it seems he is searching for the word he wants but is unable to find it. 01/03: The patient is awake and alert when seen and readily interacts. He reaches his hand out to shake mine. He is verbalising although his voice is slightly gravely. He does speak some in [place]. 01/04: This morning the patient is awake and alert when seen. He readily interacts. His voice is a little stronger. He speaks in [place] and Amharic. His daughter/oomszxab-vh-abp states he is confused and doesn't remember seeing this practitioner yesterday. 01/05: When seen the patient is awake and alert. He readily interacts and speaks in a little [place] with this practitioner but primarily in Amharic. The daughter/mbantdlf-co-hoe reports that the patient didn't sleep the last two nights due to coughing. 01/07: This afternoon the patient is awake and fairly alert. He is verbalising in Amharic. He is moving the upper extremities spontaneously. 01/08: The patient when seen intially this morning with Dr Godfrey was awake and alert in bed and tracking between people. He did verbalise in Amharic and moved the upper extremities spontaneously. His son stated that he did recognise his grandchildren and knew their names. He also said that his conversation is appropriate at times. This afternoon the patient is asleep when seen. 01/09: When seen this morning the patient is lethargic. He does open his eyes to voice but he does not verbalise. He spontaneously moves the upper extremities. 01/12: This morning the patient is seen in rounds with Dr. Godfrey. Nursing is cleaning the patient after having a bowel movement. The undersigned acts as a scribe for the remainder of this note. (Brennon White) Exam Results 01/10/17 01/10/17 01/11/17 01/11/17 01/12/17 01/12/17 06:00 18:00 06:00 18:00 06:00 18:00 Intake Total 60 ml 960 ml Output Total 660 ml 550 ml 800 ml 1400 ml 600 ml Balance -600 ml -550 ml -800 ml -440 ml -600 ml Intake Oral 60 ml 960 ml Output Urine Total 660 ml 550 ml 800 ml 1400 ml 600 ml # Voids 1 # Bowel Movements 2 5 2 Vital Signs Date Time Temp Pulse Resp B/P (MAP) Pulse Ox O2 Delivery O2 Flow Rate FiO2 01/12/17 08:37 96.5 81 18 117/75 (89) 96 01/12/17 07:00 97 01/12/17 05:55 98.0 95 18 134/66 (88) 98 01/12/17 02:03 97 01/12/17 00:42 98.6 94 18 128/74 (92) 80 01/11/17 20:30 94 01/11/17 20:23 98.7 97 20 128/68 (88) 96 01/11/17 16:00 98.2 91 19 116/60 (78) 96 01/11/17 12:00 97.3 76 19 130/64 (86) 97 01/11/17 09:45 101 01/11/17 08:00 97.6 69 18 100/64 (76) 98 01/11/17 05:09 97.5 102 18 133/73 (93) 91 01/11/17 01:26 98.1 95 20 146/67 (93) 95 01/10/17 21:00 95 01/10/17 20:59 97.6 98 18 125/75 (92) 96 01/10/17 16:00 97.3 82 18 118/62 (80) 98 01/10/17 12:00 97.6 96 18 131/63 (85) 98 01/10/17 08:00 97.5 88 16 111/55 (73) 95 01/10/17 05:49 98 01/10/17 05:23 98.5 93 18 144/66 (92) 96 01/10/17 00:18 98.2 84 18 123/76 (92) 96 01/09/17 19:00 97.7 98 20 112/69 (83) 97 01/09/17 16:18 97.7 91 18 100/53 (69) 99 01/09/17 12:00 97.8 89 18 138/81 (100) 96 (Brennon White) Physical Examination SKIN: Improved sacral wound. (Brennon White) Medical Decision Making Impression and Plan The Impression & Plan are carried forward from the note of except for updating the POD #, deletion of the authors daily impression and as Added, Deleted, Modified or New Order. Impression/plan: 1. Traumatic brain injury. Most recent CT scan stable with resolving contusions, stable mild to moderate subdural fluid collections without significant mass effect. Mental status fluctuating throughout the day but overall stable over the past week. 2. Jane UTI. Treated. 12/13/16 follow-up urine culture growth at 48 hours 3. Hypertension, atrial fibrillation. Remains on Lopressor. 3. Recent seizures. He remains on Keppra and Dilantin. 4. Sacral decubitus ulcer. Continuing decubitus precautions, wound care, Santyl 5. Leukocytosis. Hematology following-workup in progress. 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 6. Diabetes. Remains on insulin sliding scale. 7. Respiratory insufficiency. Improved. Stable on room air Medical management per Hospitalist. No active issues for Neurosurgery. (Brennon White) Attending Statement The exam, history, and the medical decision-making described in the above note were completed with the assistance of the mid-level provider. I reviewed and agree with the findings presented. I attest that I had a uqwx-gr-acol encounter with the patient on the same day, and personally performed and documented my assessment and findings in the medical record. No change in overall neurologic status. Generally more alert over the past couple of weeks. Discharge plans pending (Tony Godfrey MD) Brennon White Jan 12, 2017 11:39 Tony Godfrey MD Jan 21, 2017 19:55
--- NOTE | 2017-01-12 12:51 | HHI.PR ---
Subjective Remarks Follow up visit SDH, UE DVT, HTN, DM2. Patient seen and examined today sitting in the recliner chair. Daughter at the bedside. States that he has fed the patient was able to eat. Patient appears anxious and was to go back in bed after being out of bed for some time now. Nurse at the bedside. Reports no acute issues overnight. Discussed with daughter plans to send patient home with home care. Daughter was adamant that they're not able to take care of the patient at home and that their home is not yet ready. As per daughter they are hoping the medical plane can pick and shovel worker the patient within this week in the hospital will be notified 3 days ahead of time before that. There is no definitive date on when the medical plane transport for the patient to go to [facility] is arriving. Discuss with daughter that he is medically cleared and neurology has also cleared the patient as they have not seen any acute changes. Discussed with daughter that we'll have case management arrange any help that they would need for transfer. Objective Vitals Vital Signs Date Time Temp Pulse Resp B/P (MAP) Pulse Ox O2 Delivery O2 Flow Rate FiO2 01/12/17 08:37 96.5 81 18 117/75 (89) 96 01/12/17 07:00 97 01/12/17 05:55 98.0 95 18 134/66 (88) 98 01/12/17 02:03 97 01/12/17 00:42 98.6 94 18 128/74 (92) 80 01/11/17 20:30 94 01/11/17 20:23 98.7 97 20 128/68 (88) 96 01/11/17 16:00 98.2 91 19 116/60 (78) 96 I/O 01/11/17 01/11/17 01/11/17 01/12/17 01/12/17 01/12/17 07:00 15:00 23:00 07:00 15:00 23:00 Intake Total 960 ml Output Total 800 ml 1400 ml 600 ml Balance -800 ml -440 ml -600 ml Intake Oral 960 ml Output Urine Total 800 ml 1400 ml 600 ml # Bowel Movements 2 4 2 Imaging Last Impressions Chest X-Ray 01/05/17 0000 Signed Impressions: Service Date/Time: Thursday, January 05, 2017 15:05 - CONCLUSION: 1. Stable chronic interstitial disease bilaterally. 2. Small bilateral pleural effusions. 3. Degenerative changes and scoliosis of the thoracic spine. Juan Manuel Michel MD Brain MRI 12/13/16 0000 Signed Impressions: Service Date/Time: Tuesday, December 13, 2016 12:20 - CONCLUSION: 1. The examination demonstrates multiple small areas of intraparenchymal and extra-axial hemorrhage as described above. These areas are more apparent on the patient's MRI examination than on the CT. Direct comparison is made. The areas of edema and hemorrhage appear similar though they are isointense on the CT. 2. 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 There is cortical atrophy. Anthony Burns MD Upper Extremity Ultrasound 12/02/16 0000 Signed Impressions: Service Date/Time: Saturday, December 03, 2016 00:53 - CONCLUSION: 1. Occlusive DVT in the cephalic and basilic vein on the right. Alex Goode MD Head CT 12/01/16 0000 Signed Impressions: Service Date/Time: Thursday, December 01, 2016 13:14 - CONCLUSION: Evolving intracranial hemorrhagic foci as above, both intra-axial and extra-axial. Jesus Lee MD Modified Barium Swallow 11/30/16 0000 Signed Impressions: Service Date/Time: Wednesday, November 30, 2016 00:00 - CONCLUSION: Please refer to speech pathology report for full details. Lonnie Cook MD Transcranial Doppler Study Complete 11/17/16 0000 Signed Impressions: Service Date/Time: Thursday, November 17, 2016 10:03 - CONCLUSION: 1. Nondiagnostic examination due to poor transcranial windows. Konstantin Dash MD Abdomen X-Ray 11/12/16 0000 Signed Impressions: Service Date/Time: Saturday, November 12, 2016 08:23 - CONCLUSION: 1. Gastric tube in good position. 2. Probable right renal stones. Narayan Coulter MD Cervical Spine CT 11/09/161950 Signed Impressions: Service Date/Time: Wednesday, November 09, 2016 20:14 - CONCLUSION: Negative trauma CT. Cj Isidro MD Objective Remarks GENERAL: This is a thin-appearing, well-developed patient, in no apparent distress. SKIN: Warm and dry. HEENT: Nose without bleeding. Airway patent. NECK: Trachea midline. Supple. CARDIOVASCULAR: Heart rate irregular, rate wnl without murmurs, gallops, or rubs. RESPIRATORY: Diminished bases. No wheezes, rales, or rhonchi. GASTROINTESTINAL: Abdomen soft, non-tender, nondistended. Bowel Sounds normoactive x4. Noriega draining urine with slightly cloudy, yellow. MUSCULOSKELETAL: Extremities without clubbing, cyanosis, bilateral lower extremity trace edema. NEUROLOGICAL: Awake and alert. Moves all extremities weakly. Date of Insertion: Dec 17, 2016 Date of Insertion: Nov 12, 2016 Line: Central Venous Catheter Side: Right Location: Internal, Jugular A/P Problem List: (1) Subdural hematoma ICD Code: I62.00 - Nontraumatic subdural hemorrhage, unspecified Status: Acute (2) Diabetes ICD Code: E11.9 - Type 2 diabetes mellitus without complications Status: Chronic (3) Leukocytosis ICD Code: D72.829 - Elevated white blood cell count, unspecified Status: Acute (4) HTN (hypertension) ICD Code: I10 - Essential (primary) hypertension Status: Chronic (5) Dysphagia ICD Code: R13.10 - Dysphagia, unspecified (6) Urinary tract infection ICD Code: N39.0 - Urinary tract infection, site not specified Assessment and Plan 80 y/o with a history of HTN, DM, and BPH presented to the ED after a fall at home, with a LOC for 10-15 mins. Closed head injury Subdural hematoma Bilateral intracranial hemorrhaging - Managed by neurosurgery and no indication for surgery at this time - Neuro checks, seizure precautions - Continue with Keppra and Dilantin by mouth; monitor level - On and off drowsy. Awake and alert today. Metabolic encephalopathy - head CT 12/01/16 showed Bilateral hypodense subdural hematomas are seen in the occipital region and along the tentorium cerebelli on the right as well as small right frontal subdural hematoma unchanged. The left frontal parenchymal bleed is decreased in density with a small amount of edema identified. There is atrophy and moderate confluent hypodense white matter disease in the periventricular regions. The right frontal and left insular bleeds are much less conspicuous with a small amount of residual high density in the right frontal region with a small amount of surrounding edema. There is no midline shift or mass effect. Vascular calcifications are noted. No fractures. - CXR with improving aeration - Continue neurochecks - Ammonia level within normal. ABG without any changes. - Repeat brain MRI 12/13/16 showed 1. Examination demonstrates multiple small areas of intraparenchymal and extra ache she'll hemorrhage as described above he Sears are more apparent on the patient's MRI examination done on the CT. Direct comparison is made. The areas of edema and hemorrhage appears similar though they are isointense on the CT. 2. 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 There is cortical atrophy. - On and off drowsy. Awake and alert today Leukocytosis Anemia - Hematology following. Ordered other testing R/O other bone marrow abnormality. Follow results. - Blood cultures no growth in 5 days. Off antibiotics. 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 - Avoid unnecessary blood draws Respiratory insufficiency - Chest x-ray with improvement in aeration - Continue CPT - Schedule and DuoNeb when necessary and maintain oxygen saturation above 92% - Improving aeration with CXR - Off NC, tolerating RA. Occasional cough non productive. Good air entry. Atrial fibrillation Hypertension - Continue with Lopressor 25mg TID - better rate control and BP control - Oral anticoagulation contraindicated secondary to intracranial bleed - Monitor BP Trend, HR Decubitus ulcer, DTI sacral area - Continue Santyl - Wound care following. 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 Monitor accucheck Occlusive DVT in cephalic vein right upper extremity - Hematology consultation appreciated however oral anticoagulation contraindicated - Avoid IV access RUE Dysphagia secondary to intracranial hemorrhage - Barium swallow study normal - Reassess by speech for swallowing evaluation. Recommends pure diet, nectar thickened consistency liquids. - Aspiration precaution Generalized weakness, prolonged hospitalization - Encourage family to do ROM exercises with patient while in bed. Needs to be aggressive with increase activity, OOB-chair, if patient has pain, to be addressed with pain medication -tylenol. - Discuss with family members that pain should not deter him to increase his activities or being OOB to chair. - Encourage activities in the morning so that patient can stay awake. Urinary tract infection, resolved - off antibiotics - Plan for voiding trial when more awake and active. Prophylaxis GI - lanosprazole DVT - SCD/pharmacological prophylaxis when okay with neurosurgery Discuss with patient, nursing, Dr. Gandhi Discharge Planning Plan is for patient to leave out of the country to go to [facility]. Family has arranged for transport with a [place] [employer]. Case management following. Spoke with daughter extensively and states that he is not leaving today as prior discussed. Apparently patient is going to be picked up by a medical plane from [facility] however dyspnea to be coordinated and arranged because he is not the only patient to be transported back via the medical plane to [facility]. They said that the hospital will be notified 3 days prior to patient leaving. They are hoping that the following weekend patient would be able to be transported. Spoke with daughter today regarding patient's plan for discharge. Daughter is adamant that they cannot take care of the patient at home and that there is nobody home for most times. Discussed that we can send patient with home health care however as per daughter patient is not to be cared for at home by anyone . Daughter was informed case management will be speaking with him regarding to arrangements and how they're able to process to transfer. She was adamant that the plane might come this week and in the hospital will be informed 3 days prior to prepare the patient for travel. Problem Qualifiers (1) HTN (hypertension): Qualified Codes: I10 - Essential (primary) hypertension Veronica Coley Jan 12, 2017 12:51
--- NOTE | 2017-01-12 13:18 | HHI.DS ---
Discharge Summary Admission Date Nov 09, 2016 at 22:04 Discharge Date: Jan 12, 2017 Admitting Diagnosis subdural hematoma; intraparenchymal bleed; concussion (1) Subdural hematoma ICD Code: I62.00 - Nontraumatic subdural hemorrhage, unspecified Status: Acute (2) Diabetes ICD Code: E11.9 - Type 2 diabetes mellitus without complications Status: Chronic (3) Leukocytosis ICD Code: D72.829 - Elevated white blood cell count, unspecified Status: Acute (4) HTN (hypertension) ICD Code: I10 - Essential (primary) hypertension Status: Chronic (5) Dysphagia ICD Code: R13.10 - Dysphagia, unspecified (6) Urinary tract infection ICD Code: N39.0 - Urinary tract infection, site not specified Procedures None Brief History - From Admission Written by GILBERTO Patiño acting as scribe for [Eddi] on 11/10/16 at 00: 22. 80 y/o with a history of HTN, DM, and BPH presented to the ED after a fall at home, with a LOC for 10-15 mins. Patient walks with a cane and fell backwards and hit his head. [facility] was consulted for management of HTN, and chronic conditions. Patient is oriented to person and place. He denies any pain, or headaches. Family is currently at bedside for questioning. Per the family patient has had a productive cough that they have noticed. Denies any fevers. Imaging Last Impressions Chest X-Ray 01/05/17 0000 Signed Impressions: Service Date/Time: Thursday, January 05, 2017 15:05 - CONCLUSION: 1. Stable chronic interstitial disease bilaterally. 2. Small bilateral pleural effusions. 3. Degenerative changes and scoliosis of the thoracic spine. Juan Manuel Michel MD Brain MRI 12/13/16 0000 Signed Impressions: Service Date/Time: Tuesday, December 13, 2016 12:20 - CONCLUSION: 1. The examination demonstrates multiple small areas of intraparenchymal and extra-axial hemorrhage as described above. These areas are more apparent on the patient's MRI examination than on the CT. Direct comparison is made. The areas of edema and hemorrhage appear similar though they are isointense on the CT. 2. 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 There is cortical atrophy. Anthony Burns MD Upper Extremity Ultrasound 12/02/16 0000 Signed Impressions: Service Date/Time: Saturday, December 03, 2016 00:53 - CONCLUSION: 1. Occlusive DVT in the cephalic and basilic vein on the right. Alex Goode MD Head CT 12/01/16 0000 Signed Impressions: Service Date/Time: Thursday, December 01, 2016 13:14 - CONCLUSION: Evolving intracranial hemorrhagic foci as above, both intra-axial and extra-axial. Jesus Lee MD Modified Barium Swallow 11/30/16 0000 Signed Impressions: Service Date/Time: Wednesday, November 30, 2016 00:00 - CONCLUSION: Please refer to speech pathology report for full details. Lonnie Cook MD Transcranial Doppler Study Complete 11/17/16 0000 Signed Impressions: Service Date/Time: Thursday, November 17, 2016 10:03 - CONCLUSION: 1. Nondiagnostic examination due to poor transcranial windows. Konstantin Dash MD Abdomen X-Ray 11/12/16 0000 Signed Impressions: Service Date/Time: Saturday, November 12, 2016 08:23 - CONCLUSION: 1. Gastric tube in good position. 2. Probable right renal stones. Narayan Coulter MD Cervical Spine CT 11/09/161950 Signed Impressions: Service Date/Time: Wednesday, November 09, 2016 20:14 - CONCLUSION: Negative trauma CT. Cj Isidro MD PE at Discharge GENERAL: This is a thin-appearing, well-developed patient, in no apparent distress. SKIN: Warm and dry. HEENT: Nose without bleeding. Airway patent. NECK: Trachea midline. Supple. CARDIOVASCULAR: Heart rate irregular, rate wnl without murmurs, gallops, or rubs. RESPIRATORY: Diminished bases. No wheezes, rales, or rhonchi. GASTROINTESTINAL: Abdomen soft, non-tender, nondistended. Bowel Sounds normoactive x4. Noriega draining urine with slightly cloudy, yellow. MUSCULOSKELETAL: Extremities without clubbing, cyanosis, bilateral lower extremity trace edema. NEUROLOGICAL: Awake and alert. Moves all extremities weakly. Pt update on day of discharge Follow up visit SDH, UE DVT, HTN, DM2. Patient seen and examined today sitting in the recliner chair. Daughter at the bedside. States that he has fed the patient was able to eat. Patient appears anxious and was to go back in bed after being out of bed for some time now. Nurse at the bedside. Reports no acute issues overnight. Hospital Course Patient is an 80 year old male with primary medical history of HTN, DM, BPH who came into the hospital after a fall at home with loss of consciousness for 10- 15 minutes. Patient testing. Close head injury and has found to have subdural hematoma and bilateral jerking or hemorrhaging from CT and MRI that was done. Patient had metabolic encephalopathy were in late tests repeat brain 12/13/2016 MRI showed 1. Examination demonstrates multiple small areas of intraparenchymal and extra-axial ridge. These are areas more apparent on the patient's MRI examination and on the CT. Direct comparison was made. The areas of edema and hemorrhage appears similar though they are isointense on the CT. 2. 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 There is cortical atrophy. Neurosurgery has been following the patient were in they have deemed that patient has been stable neurologically. He has on and off drowsiness and lethargy which may be his new baseline. Patient has dysphasia secondary to the intercranial hemorrhage and has been recommended to have pured diet with thickened nectar consistency liquids and on aspiration precaution. Patient is being fed by the family and is able to tolerate by mouth diet. He continues to have generalized weakness but has been out of bed to chair using a Felton lift and has been working with physical therapy however with poor motivation, poor tolerance patient continues to be chair bound. Patient's chronic condition and has been addressed during this hospitalization including diabetes, hypertension. Atrial fibrillation has been chronic and managed by beta chris for rate control. He will not be able to tolerate oral anticoagulation at that as it is contraindicated secondary to the intercranial bleed. 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 Patient also has urinary retention and due to his prolonged hospitalization he has Noriega catheterization and continues to be on it. Voiding trial has been unsuccessful. Patient will need continued rehabilitation with PT/OT/speech therapy outside inpatient hospitalization. Patient has met maximal benefits of hospitalization. Clinically stable for discharge. Discharged home with home health care. Pt Condition on Discharge: Stable Discharge Disposition: Disch w/ Home Health Serv Discharge Time: <= 30 minutes Discharge Instructions DIET: Follow Instructions for: As Tolerated, No Restrictions Speech Therapy-Diet Recommends: Pureed, Parral Thickened Liquids Activities you can perform: Weight Bearing as Mary Jane Activities to Avoid: Driving Veronica ColeyP Jan 12, 2017 13:18
[2017-01-12] MEDS ORDERED: COLL30T TOPICAL (13:19)
--- NOTE | 2017-01-12 13:23 | HHI.DCPOC ---
Discharge Care Plan Diagnosis: (1) Atrial fibrillation (2) Debility (3) Encephalopathy (4) Traumatic brain injury (5) Subdural hematoma Your Health Problems Are: Difficulty with ADL Exercise Tolerance Chronic Pain Goals to Promote Your Health * To prevent worsening of your condition and complications * To maintain your health at the optimal level Directions to Meet Your Goals Take your medications as prescribed Follow your dietary instruction Follow activity as directed Keep your appointments as scheduled Take your immunizations and boosters as scheduled If your symptoms worsen call your PCP, if no PCP go to Urgent Care Center or Emergency Room Smoking is Dangerous to Your Health. Avoid second hand smoke Call the 24-hour hour crisis hotline for domestic abuse at Veronica Coley [facility] Jan 12, 2017 13:23
--- NOTE | 2017-01-12 13:25 | HHI.FF ---
Face to Face Verification Diagnosis: (1) Atrial fibrillation (2) Debility (3) Sacral decubitus ulcer (4) Encephalopathy (5) Subdural hematoma (6) HTN (hypertension) (7) Dysphagia (8) Traumatic brain injury Physical Therapy Order: Strength and gait training Occupational Therapy Order: Improve ADL Speech Therapy Order: To Improve: Speech and communication skills, Swallowing Home Health Nursing Order: Medical education Signs/symptoms of disease process Medication education-adverse effect Wound care and dressing changes Nursing assessment with vital signs Noriega catheter maintenance Home Health Aide Order: To Assist In: Bathing and personal care, farm advisor and meal prep I have seen patient Carrol Garza on 01/12/17. My clinical findings support the need for the requested home health care services because: Ltd mobility - disease progression Deconditioned w/ increased weakness Limited ability to care for self Impaired cognition/judgement High risk of falls Infection w/ risk of complications I certify that my clinical findings support that this patient is homebound because: Impaired cognitive ability/safety Unsteady gait/balance Unsafe to leave home unassisted Nsd-efbyzdjzof-ksnvhahx bed/chair Unable to use public transportation Veronica Coley Jan 12, 2017 13:24
[2017-01-12] MEDS: TAMSULOSIN HCL 0.4 MG CAP PO SCH (22:41)
[2017-01-13] VITALS (7 sets, daily range): BP systolic 114–151; BP diastolic 60–76; PULSE 85–101; RESP 18–20; TEMP 97–98.7; O2SAT 94–98
[2017-01-13] MEDS: METOPROLOL TARTRATE 50 MG TAB PO SCH ×3 (05:58→23:24)
[2017-01-13] MEDS: levETIRAcetam 500 MG TAB PO SCH ×3 (05:58→23:24)
[2017-01-13] MEDS: INSULIN NovoLIN REGULAR SUPPLEMENTAL SCALE SQ SCH ×4 (08:00→23:23)
[2017-01-13] MEDS: CHLORHEXIDINE 0.12% (ORAL KIT) 15 ML CUP MT SCH ×2 (08:00→20:00)
[2017-01-13] MEDS: DOCUSATE SODIUM 100 MG/10 ML UDC PO SCH ×2 (09:00→23:25)
[2017-01-13] MEDS: SODIUM CHLORIDE 0.9% FLUSH 10 ML FLUSH IVF SCH (09:00)
[2017-01-13] MEDS: ARTIFICIAL TEARS OPTH SOLN 15 ML BTL EACH EYE SCH ×3 (09:00→17:32)
[2017-01-13] MEDS: amLODIPine BESYLATE 5 MG TAB PO SCH (09:00)
[2017-01-13] MEDS: MUPIROCIN 2% CREAM 15 GM TOPICAL SCH ×2 (09:00→23:26)
[2017-01-13] MEDS: POLYETHYLENE GLYCOL 17 GM PKG OG-TUBE SCH ×2 (09:00→23:25)
[2017-01-13] MEDS: COLLAGENASE OINT 30 GM TUBE TOPICAL SCH ×2 (09:00)
[2017-01-13] MEDS: INSULIN DETEMIR 100 UNITS/ML VIAL SQ SCH ×2 (09:00→23:22)
[2017-01-13] MEDS: SODIUM CHLORIDE 0.9% FLUSH 10 ML FLUSH IV FLUSH SCH ×2 (09:07→23:21)
[2017-01-13] MEDS: MEGESTROL ACETATE SUSP 400 MG/10 ML CUP PO SCH (09:09)
[2017-01-13] MEDS: LANSOPRAZOLE SOLUTAB 30 MG TAB NG SCH (09:11)
[2017-01-13] MEDS: FUROSEMIDE 40 MG TAB PO SCH (09:11)
[2017-01-13] MEDS: PHENYTOIN SODIUM 100 MG CAP PO SCH ×3 (09:12→17:32)
[2017-01-13] MEDS: FINASTERIDE 5 MG TAB PO SCH (09:12)
[2017-01-13] MEDS: TOLTERODINE TARTRATE 2 MG CAP LA PO SCH (09:12)
--- NOTE | 2017-01-13 09:44 | HHI.NSPN ---
(Brennon White) History Chief Complaint: No complaints. (Brennon White) Interval History 12/07: Patient opens eyes to voice, smiles, questionable followed simple command left UE x one, not following commands other extremities. Not verbalizing. 12/13: Patient reported to be sleeping a little better at night. Still lethargic much of the day. According to family he is saying a few words and responds to questions, remains confused, following a few commands occasionally. 12/15: Patient extremely lethargic. No response to verbal stimulation but did withdraw upper extremities and open eyes to localised noxious stimulation. Slight moaning but no other response. 12/16: The patient is lethargic but less so today. He was noted to open his eyes and move both upper extremities spontaneously. He did respond to some commands weakly but did not verbalise. 12/19: This morning the patient is seen in rounds with Dr. Godfrey. The patient is awake and alert and did track with his eyes. 12/23: When seen this morning the patient's daughter is feeding him. He does spontaneously open his eyes and move the upper extremities. He does appear to track with the eyes. 12/25: The patient is awake this morning and moving the right upper extremity spontaneously. He is watching Nursing and his family as they move about in the room. The uneltqoo-ny-szz reports that the embassy is to call the hospital once everything is ready for the patient to be transferred back to [facility] or if they need any further information. She says her , the patient's son, spoke with the embassy yesterday. 12/29: The patient is asleep but awakens to verbal stimulation. He spontaneously moves both upper extremities and follows some commands on the right side. 12/30: This morning the patient is lethargic. He briefly opens his eyes but does not follow commands. His daughter/leyhfqht-di-eff reports that he was awake all night due to his coughing. 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 01/01: The patient is asleep when seen. He does awaken to voice and moves the upper extremities spontaneously. His daughter/wggutzhs-lw-lco reports that he does say a few words and at times it seems he is searching for the word he wants but is unable to find it. 01/03: The patient is awake and alert when seen and readily interacts. He reaches his hand out to shake mine. He is verbalising although his voice is slightly gravely. He does speak some in Burmese. 01/04: This morning the patient is awake and alert when seen. He readily interacts. His voice is a little stronger. He speaks in Burmese and Swedish. His daughter/zmnzauwc-tp-pmu states he is confused and doesn't remember seeing this practitioner yesterday. 01/05: When seen the patient is awake and alert. He readily interacts and speaks in a little Burmese with this practitioner but primarily in Swedish. The daughter/yswcogwb-mv-gtt reports that the patient didn't sleep the last two nights due to coughing. 01/07: This afternoon the patient is awake and fairly alert. He is verbalising in Swedish. He is moving the upper extremities spontaneously. 01/08: The patient when seen intially this morning with Dr Godfrey was awake and alert in bed and tracking between people. He did verbalise in Swedish and moved the upper extremities spontaneously. His son stated that he did recognise his grandchildren and knew their names. He also said that his conversation is appropriate at times. This afternoon the patient is asleep when seen. 01/09: When seen this morning the patient is lethargic. He does open his eyes to voice but he does not verbalise. He spontaneously moves the upper extremities. 01/12: This morning the patient is seen in rounds with Dr. Godfrey. Nursing is cleaning the patient after having a bowel movement. 01/13: When seen this morning the patient's son is feeding him breakfast. He is awake and alert, and readily interacts. He does verbalise a few words in Swedish in response to questions from his son. He states he is doing good when asked and had no headache or other complaints. After being seen he wants to shake hands with this practitioner. (Brennon White) Exam Results 01/11/17 01/11/17 01/12/17 01/12/17/7/17 11/7/17 06:00 18:00 06:00 18:00 06:00 18:00 Intake Total 960 ml 720 ml Output Total 800 ml 1400 ml 1325 ml 975 ml Balance -800 ml -440 ml -605 ml -975 ml Intake Oral 960 ml 720 ml Output Urine Total 800 ml 1400 ml 1325 ml 975 ml # Bowel Movements 2 5 2 3 3 Vital Signs Date Time Temp Pulse Resp B/P (MAP) Pulse Ox O2 Delivery O2 Flow Rate FiO2 01/13/17 08:21 98.4 85 20 114/60 (78) 94 01/13/17 04:00 97.0 96 20 140/70 (93) 98 01/13/17 01:20 98.7 101 20 149/76 (100) 97 01/12/17 22:35 97.6 104 18 130/74 (92) 96 01/12/17 21:10 94 01/12/17 16:06 98.0 98 20 135/77 (96) 99 01/12/17 13:39 98.6 98 20 116/68 (84) 97 01/12/17 08:37 96.5 81 18 117/75 (89) 96 01/12/17 07:00 97 01/12/17 05:55 98.0 95 18 134/66 (88) 98 01/12/17 02:03 97 01/12/17 00:42 98.6 94 18 128/74 (92) 80 01/11/17 20:30 94 01/11/17 20:23 98.7 97 20 128/68 (88) 96 01/11/17 16:00 98.2 91 19 116/60 (78) 96 01/11/17 12:00 97.3 76 19 130/64 (86) 97 01/11/17 09:45 101 01/11/17 08:00 97.6 69 18 100/64 (76) 98 01/11/17 05:09 97.5 102 18 133/73 (93) 91 01/11/17 01:26 98.1 95 20 146/67 (93) 95 01/10/17 21:00 95 01/10/17 20:59 97.6 98 18 125/75 (92) 96 01/10/17 16:00 97.3 82 18 118/62 (80) 98 01/10/17 12:00 97.6 96 18 131/63 (85) 98 (Brennon White) Physical Examination GENERAL: Awake & alert, readily interacts, no evident distress. MUSCULOSKELETAL: VELASQUEZ to varying degrees to command, upper spontaneously. NEUROLOGICAL: Awake & alert. Speech slightly garbled but understandable per son. Follows simple commands. 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 Moves feet to command. (Brennon White) Medical Decision Making Impression and Plan Impression/plan: 1. Traumatic brain injury. Most recent CT scan stable with resolving contusions, stable mild to moderate subdural fluid collections without significant mass effect. Mental status fluctuating throughout the day but overall stable over the past week. 2. Jane UTI. Treated. 12/13/16 follow-up urine culture growth at 48 hours 3. Hypertension, atrial fibrillation. Remains on Lopressor. 3. Recent seizures. He remains on Keppra and Dilantin. 4. Sacral decubitus ulcer. Continuing decubitus precautions, wound care, Santyl 5. Leukocytosis. Hematology following-workup in progress. 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 6. Diabetes. Remains on insulin sliding scale. 7. Respiratory insufficiency. Improved. Stable on room air Patient doing well and is stable neurologically. Awaiting word as to when transport back to [facility] is arranged per son. Medical management per Hospitalist. No active issues for Neurosurgery. (Brennon White) Attending Statement The exam, history, and the medical decision-making described in the above note were completed with the assistance of the mid-level provider. I reviewed and agree with the findings presented. I attest that I had a [id number]-zb-daxz encounter with the patient on the same day, and personally performed and documented my assessment and findings in the medical record. No change in neurologic exam. Remains on seizure prophylaxis. Medicine following (Tony Godfrey MD) Brennon White Jan 13, 2017 09:44 Tony Godfrey MD Jan 21, 2017 19:56
--- NOTE | 2017-01-13 19:12 | HHI.PR ---
Subjective Remarks Follow up visit SDH, UE DVT, HTN, DM2. Patient seen and examined today sitting in bed. Daughter at the bedside. Pt stated he had no pain and was feeling "well." He denied cough, fever, shortness of breath, bowel/bladder difficulties. Daughter asked about providing pt with a thickened diet pepsi. Objective Vitals Vital Signs Date Time Temp Pulse Resp B/P (MAP) Pulse Ox O2 Delivery O2 Flow Rate FiO2 01/13/17 16:50 97.9 95 18 151/71 (97) 96 01/13/17 12:46 97.9 97 20 119/61 (80) 95 01/13/17 08:21 98.4 85 20 114/60 (78) 94 01/13/17 08:00 96 01/13/17 04:00 97.0 96 20 140/70 (93) 98 01/13/17 01:20 98.7 101 20 149/76 (100) 97 01/12/17 22:35 97.6 104 18 130/74 (92) 96 01/12/17 21:10 94 I/O 01/12/17 01/12/17 01/12/17 01/13/17 01/13/17 01/13/17 07:00 15:00 23:00 07:00 15:00 23:00 Intake Total 480 ml 240 ml 480 ml Output Total 600 ml 725 ml 975 ml Balance -600 ml 480 ml -485 ml -975 ml 480 ml Intake Oral 480 ml 240 ml 480 ml Output Urine Total 600 ml 725 ml 975 ml # Voids 1 # Bowel Movements 2 2 1 3 1 Imaging Last Impressions Chest X-Ray 01/05/17 0000 Signed Impressions: Service Date/Time: Thursday, January 05, 2017 15:05 - CONCLUSION: 1. Stable chronic interstitial disease bilaterally. 2. Small bilateral pleural effusions. 3. Degenerative changes and scoliosis of the thoracic spine. Juan Manuel Michel MD Brain MRI 12/13/16 0000 Signed Impressions: Service Date/Time: Tuesday, December 13, 2016 12:20 - CONCLUSION: 1. The examination demonstrates multiple small areas of intraparenchymal and extra-axial hemorrhage as described above. These areas are more apparent on the patient's MRI examination than on the CT. Direct comparison is made. The areas of edema and hemorrhage appear similar though they are isointense on the CT. 2. 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 There is cortical atrophy. Anthony Burns MD Upper Extremity Ultrasound 12/02/16 0000 Signed Impressions: Service Date/Time: Saturday, December 03, 2016 00:53 - CONCLUSION: 1. Occlusive DVT in the cephalic and basilic vein on the right. Alex Goode MD Head CT 12/01/16 0000 Signed Impressions: Service Date/Time: Thursday, December 01, 2016 13:14 - CONCLUSION: Evolving intracranial hemorrhagic foci as above, both intra-axial and extra-axial. Jesus Lee MD Modified Barium Swallow 11/30/16 0000 Signed Impressions: Service Date/Time: Wednesday, November 30, 2016 00:00 - CONCLUSION: Please refer to speech pathology report for full details. Lonnie Cook MD Transcranial Doppler Study Complete 11/17/16 0000 Signed Impressions: Service Date/Time: Thursday, November 17, 2016 10:03 - CONCLUSION: 1. Nondiagnostic examination due to poor transcranial windows. Konstantin Dash MD Abdomen X-Ray 11/12/16 0000 Signed Impressions: Service Date/Time: Saturday, November 12, 2016 08:23 - CONCLUSION: 1. Gastric tube in good position. 2. Probable right renal stones. Narayan Coulter MD Cervical Spine CT 11/09/161950 Signed Impressions: Service Date/Time: Wednesday, November 09, 2016 20:14 - CONCLUSION: Negative trauma CT. Cj Isidro MD Objective Remarks GENERAL: Pt encountered sitting up in bed, pleasant/cooperative, NAD. SKIN: Warm and dry. HEAD: Normocephalic. EYES: No scleral icterus. No injection or drainage. NECK: Supple, trachea midline. No lymphadenopathy. CARDIOVASCULAR: Regular rate and rhythm without murmurs, gallops, or rubs. RESPIRATORY: Diminished breath sounds noted in the bases. No rhonchi wheezes noted. No accessory muscle use. GASTROINTESTINAL: Abdomen soft, non-tender, nondistended. Bowel sounds noted all quadrants. MUSCULOSKELETAL: No cyanosis, or edema. Pt evidenced weakness in all extremities. BACK: Nontender without obvious deformity. No CVA tenderness. Procedures None Medications and IVs Current Medications Medications (Trade) Dose Ordered Sig/Gregg Route Start Time Stop Time Status Last Admin (Proscar) 5 mg DAILY PO 11/10/16 09:00 01/13/17 09:12 (Flomax) 0.4 mg HS PO 11/10/16 21:00 01/12/17 22:41 (Detrol La) 2 mg DAILY PO 11/10/16 09:00 01/13/17 09:12 (Glucagon Inj) 1 mg UNSCH PRN OTHER 11/09/16 23:45 11/24/16 03:48 (Ativan Inj) 1 mg Q5M PRN IV 11/12/16 00:45 11/12/16 01:45 (Peridex 0.12% Liq) 15 ml BID@08,20 MT 11/12/16 08:00 01/13/17 08:00 (NS Flush) DAILY IVF 11/12/16 09:00 01/04/17 09:00 (NS Flush) UNSCH PRN IVF 11/12/16 08:15 (Prevacid Odt) 30 mg DAILY NG 11/12/16 09:00 01/13/17 09:11 (Colace Liq) 100 mg Q12HR PO 11/12/16 09:00 01/12/17 22:41 (NS Flush) 2 ml UNSCH PRN IV FLUSH 11/12/16 08:30 (NS Flush) 2 ml BID IV FLUSH 11/12/16 09:00 01/13/17 09:07 (Tears Naturale Opth Soln) 1 drop TID EACH EYE 11/12/16 09:00 01/13/17 17:32 (Zofran Inj) 4 mg Q6H PRN IV 11/12/16 08:30 11/15/16 05:45 (Albuterol Neb) 2.5 mg Q2HR NEB PRN INH 11/12/16 08:30 11/29/16 21:19 (Dulcolax Supp) 10 mg DAILY PRN RECTAL 11/12/16 08:30 (Tylenol 650 Mg/ 20 ml Liq) 650 mg Q6H PRN NG 11/12/16 08:45 12/20/16 02:14 (Miralax) 17 gm BID OG-TUBE 11/13/16 21:00 01/12/17 22:41 (Lactulose Liq) 30 ml DAILY PO 11/14/16 09:00 Future Hold 12/02/16 09:54 (Glycerin Adult Supp) 2 gm BID PRN RECTAL 11/13/16 15:00 (Apresoline Inj) 20 mg Q4H PRN IV PUSH 11/14/16 02:15 11/14/16 03:07 (Brethine Inj) 1 mg UNSCH PRN SQ 11/20/16 16:30 (D50w (Syr) Inj) 50 ml UNSCH PRN IV 11/25/16 09:30 11/25/16 09:46 (Megace Liq) 400 mg DAILY PO 11/26/16 09:00 01/13/17 09:09 (Keppra) 1,000 mg Q8HR PO 11/30/16 22:00 01/13/17 12:44 (Bactroban 2% Cream) 1 applic Q12HR TOPICAL 12/02/16 21:00 01/13/17 09:00 (Santyl Oint) 1 applic DAILY TOPICAL 12/04/16 12:00 01/13/17 09:00 (Levsin) 0.125 mg Q4H PRN PO 12/04/16 11:30 01/11/17 21:47 (Heparin Central Flush) 200 units DAILY IV FLUSH 12/05/16 12:00 01/13/17 09:05 (Dilantin) 100 mg TID PO 12/14/16 13:00 01/13/17 17:32 (NovoLIN R SUPPLEMENTAL SCALE) 1 ACHS SLIDING SCALE SQ 12/16/16 12:00 01/12/17 22:43 (Norvasc) 5 mg DAILY PO 12/17/16 12:00 01/11/17 09:44 (Santyl Oint) 1 applic DAILY TOPICAL 12/19/16 14:45 01/06/17 09:00 (Lasix) 40 mg DAILY PO 12/29/16 09:00 01/13/17 09:11 (Levemir Inj) 10 units BID SQ 12/30/16 21:00 01/12/17 22:42 (Tylenol 650 Mg/ 20 ml Liq) 650 mg Q4H PRN PO 12/31/16 21:30 01/04/17 05:19 (Lopressor) 50 mg Q8HR PO 01/01/17 14:00 01/13/17 12:43 (Restoril) 7.5 mg HS PRN PO 01/05/17 14:45 01/06/17 20:19 Urinary Catheter: Yes Date of Insertion: Dec 17, 2016 Date of Insertion: Nov 12, 2016 Line: Central Venous Catheter Side: Right Location: Internal, Jugular A/P Problem List: (1) Subdural hematoma ICD Code: I62.00 - Nontraumatic subdural hemorrhage, unspecified Status: Acute (2) Diabetes ICD Code: E11.9 - Type 2 diabetes mellitus without complications Status: Chronic (3) Leukocytosis ICD Code: D72.829 - Elevated white blood cell count, unspecified Status: Acute (4) HTN (hypertension) ICD Code: I10 - Essential (primary) hypertension Status: Chronic (5) Dysphagia ICD Code: R13.10 - Dysphagia, unspecified (6) Urinary tract infection ICD Code: N39.0 - Urinary tract infection, site not specified Assessment and Plan 80 y/o with a history of HTN, DM, and BPH presented to the ED after a fall at home, with a LOC for 10-15 mins. Diabetes: Morning Levemir held due to BG being 77. Range for past 24 hours has been 73-197. Hypertension: controlled. Closed head injury Subdural hematoma Bilateral intracranial hemorrhaging - Managed by neurosurgery and no indication for surgery at this time - Neuro checks, seizure precautions - Continue with Keppra and Dilantin by mouth; monitor level - On and off drowsy. Awake and alert today. Metabolic encephalopathy - head CT 12/01/16 showed Bilateral hypodense subdural hematomas are seen in the occipital region and along the tentorium cerebelli on the right as well as small right frontal subdural hematoma unchanged. The left frontal parenchymal bleed is decreased in density with a small amount of edema identified. There is atrophy and moderate confluent hypodense white matter disease in the periventricular regions. The right frontal and left insular bleeds are much less conspicuous with a small amount of residual high density in the right frontal region with a small amount of surrounding edema. There is no midline shift or mass effect. Vascular calcifications are noted. No fractures. - CXR with improving aeration - Continue neurochecks - Ammonia level within normal. ABG without any changes. - Repeat brain MRI 12/13/16 showed 1. Examination demonstrates multiple small areas of intraparenchymal and extra ache she'll hemorrhage as described above he Sears are more apparent on the patient's MRI examination done on the CT. Direct comparison is made. The areas of edema and hemorrhage appears similar though they are isointense on the CT. 2. 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 There is cortical atrophy. - On and off drowsy. Awake and alert today Leukocytosis Anemia - Hematology following. Ordered other testing R/O other bone marrow abnormality. Follow results. - Blood cultures no growth in 5 days. Off antibiotics. 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 - Avoid unnecessary blood draws Respiratory insufficiency - Chest x-ray with improvement in aeration - Continue CPT - Schedule and DuoNeb when necessary and maintain oxygen saturation above 92% - Improving aeration with CXR - Off NC, tolerating RA. Occasional cough non productive. Good air entry. Atrial fibrillation Hypertension - Continue with Lopressor 25mg TID - better rate control and BP control - Oral anticoagulation contraindicated secondary to intracranial bleed - Monitor BP Trend, HR Decubitus ulcer, DTI sacral area - Continue Santyl - Wound care following. - Repositioning every 2 hour Benign prostatic hyperplasia - Continue with Flomax - Noriega care - Voiding trial when more awake and with increase activity Diabetes mellitus - hemoglobin A1c 6.0 - Levemir 10 units twice a day ISS. Monitor accucheck Occlusive DVT in cephalic vein right upper extremity - Hematology consultation appreciated however oral anticoagulation contraindicated - Avoid IV access RUE Dysphagia secondary to intracranial hemorrhage - Barium swallow study normal - Reassess by speech for swallowing evaluation. Recommends pure diet, nectar thickened consistency liquids. - Aspiration precaution Generalized weakness, prolonged hospitalization - Encourage family to do ROM exercises with patient while in bed. Needs to be aggressive with increase activity, OOB-chair, if patient has pain, to be addressed with pain medication -tylenol. - Discuss with family members that pain should not deter him to increase his activities or being OOB to chair. - Encourage activities in the morning so that patient can stay awake. Urinary tract infection, resolved - off antibiotics - Plan for voiding trial when more awake and active. Prophylaxis GI - lanosprazole DVT - SCD/pharmacological prophylaxis when okay with neurosurgery Discuss with patient, nursing, Dr. Gandhi Discharge Planning Discharge Planning Plan is for patient to leave out of the country to go to [facility]. Family has arranged for transport with a [employer]. Case management following. MDR indicated pt is to return to [facility] [place] aboard medical flight that is being arranged by [facility]. Uncertain when pt is to be transported to his home country. Problem Qualifiers (1) HTN (hypertension): Qualified Codes: I10 - Essential (primary) hypertension Shay Solares Jr. Jan 13, 2017 19:12
[2017-01-13] MEDS: TAMSULOSIN HCL 0.4 MG CAP PO SCH (23:25)
[2017-01-14] VITALS (8 sets, daily range): BP systolic 112–141; BP diastolic 56–88; PULSE 85–101; RESP 17–23; TEMP 97.4–98.8; O2SAT 95–99
[2017-01-14] MEDS: levETIRAcetam 500 MG TAB PO SCH ×3 (06:32→21:49)
[2017-01-14] MEDS: METOPROLOL TARTRATE 50 MG TAB PO SCH ×3 (06:32→21:49)
[2017-01-14] MEDS: INSULIN NovoLIN REGULAR SUPPLEMENTAL SCALE SQ SCH ×4 (08:00→21:52)
[2017-01-14] MEDS: CHLORHEXIDINE 0.12% (ORAL KIT) 15 ML CUP MT SCH ×2 (08:00→20:00)
[2017-01-14] MEDS: INSULIN DETEMIR 100 UNITS/ML VIAL SQ SCH ×2 (09:00→21:52)
[2017-01-14] MEDS: POLYETHYLENE GLYCOL 17 GM PKG OG-TUBE SCH ×2 (09:00→21:00)
[2017-01-14] MEDS: COLLAGENASE OINT 30 GM TUBE TOPICAL SCH ×2 (09:00)
[2017-01-14] MEDS: DOCUSATE SODIUM 100 MG/10 ML UDC PO SCH ×2 (09:00→21:00)
[2017-01-14] MEDS: MUPIROCIN 2% CREAM 15 GM TOPICAL SCH ×2 (09:00→21:55)
[2017-01-14] MEDS: ARTIFICIAL TEARS OPTH SOLN 15 ML BTL EACH EYE SCH ×3 (09:00→17:24)
[2017-01-14] MEDS: SODIUM CHLORIDE 0.9% FLUSH 10 ML FLUSH IVF SCH (09:00)
[2017-01-14] MEDS: MEGESTROL ACETATE SUSP 400 MG/10 ML CUP PO SCH (09:01)
[2017-01-14] MEDS: LANSOPRAZOLE SOLUTAB 30 MG TAB NG SCH (09:02)
[2017-01-14] MEDS: amLODIPine BESYLATE 5 MG TAB PO SCH (09:04)
[2017-01-14] MEDS: TOLTERODINE TARTRATE 2 MG CAP LA PO SCH (09:04)
[2017-01-14] MEDS: PHENYTOIN SODIUM 100 MG CAP PO SCH ×3 (09:04→17:20)
[2017-01-14] MEDS: FUROSEMIDE 40 MG TAB PO SCH (09:05)
[2017-01-14] MEDS: FINASTERIDE 5 MG TAB PO SCH (09:05)
[2017-01-14] MEDS: SODIUM CHLORIDE 0.9% FLUSH 10 ML FLUSH IV FLUSH SCH ×2 (09:07→21:50)
--- NOTE | 2017-01-14 13:59 | HHI.PR ---
Subjective Remarks Follow up visit SDH, UE DVT, HTN, DM2. Patient seen and examined today laying in bed. Pt stated he had no pain and and had no new complaints. He denied cough, fever, shortness of breath, bowel/bladder difficulties. Objective Vitals Vital Signs Date Time Temp Pulse Resp B/P (MAP) Pulse Ox O2 Delivery O2 Flow Rate FiO2 01/14/17 12:05 98.3 99 18 112/63 (79) 96 01/14/17 08:07 97.8 85 17 130/65 (86) 98 01/14/17 05:30 98.8 100 23 140/88 (105) 95 01/14/17 02:19 96 01/14/17 00:45 97.4 101 21 141/68 (92) 98 01/13/17 20:50 98.5 100 20 150/71 (97) 97 01/13/17 16:50 97.9 95 18 151/71 (97) 96 I/O 01/13/17 01/13/17 01/13/17 01/14/17 01/14/17 01/14/17 07:00 15:00 23:00 07:00 15:00 23:00 Intake Total 480 ml 100 ml 400 ml 480 ml Output Total 975 ml 500 ml 400 ml 250 ml Balance -975 ml 480 ml -400 ml 0 ml 230 ml Intake Oral 480 ml 100 ml 400 ml 480 ml Output Urine Total 975 ml 500 ml 400 ml 250 ml # Voids 1 # Bowel Movements 3 1 0 1 Imaging Last Impressions Chest X-Ray 01/05/17 0000 Signed Impressions: Service Date/Time: Thursday, January 05, 2017 15:05 - CONCLUSION: 1. Stable chronic interstitial disease bilaterally. 2. Small bilateral pleural effusions. 3. Degenerative changes and scoliosis of the thoracic spine. Juan Manuel Michel MD Brain MRI 12/13/16 0000 Signed Impressions: Service Date/Time: Tuesday, December 13, 2016 12:20 - CONCLUSION: 1. The examination demonstrates multiple small areas of intraparenchymal and extra-axial hemorrhage as described above. These areas are more apparent on the patient's MRI examination than on the CT. Direct comparison is made. The areas of edema and hemorrhage appear similar though they are isointense on the CT. 2. 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 There is cortical atrophy. Anthony Burns MD Upper Extremity Ultrasound 12/02/16 0000 Signed Impressions: Service Date/Time: Saturday, December 03, 2016 00:53 - CONCLUSION: 1. Occlusive DVT in the cephalic and basilic vein on the right. Alex Goode MD Head CT 12/01/16 0000 Signed Impressions: Service Date/Time: Thursday, December 01, 2016 13:14 - CONCLUSION: Evolving intracranial hemorrhagic foci as above, both intra-axial and extra-axial. Jesus Lee MD Modified Barium Swallow 11/30/16 0000 Signed Impressions: Service Date/Time: Wednesday, November 30, 2016 00:00 - CONCLUSION: Please refer to speech pathology report for full details. Lonnie Cook MD Transcranial Doppler Study Complete 11/17/16 0000 Signed Impressions: Service Date/Time: Thursday, November 17, 2016 10:03 - CONCLUSION: 1. Nondiagnostic examination due to poor transcranial windows. Konstantin Dash MD Abdomen X-Ray 11/12/16 0000 Signed Impressions: Service Date/Time: Saturday, November 12, 2016 08:23 - CONCLUSION: 1. Gastric tube in good position. 2. Probable right renal stones. Narayan Coulter MD Cervical Spine CT 11/09/161950 Signed Impressions: Service Date/Time: Wednesday, November 09, 2016 20:14 - CONCLUSION: Negative trauma CT. Cj Isidro MD Objective Remarks GENERAL: Pt encountered sitting up in bed, NAD. SKIN: Warm and dry. HEAD: Normocephalic. EYES: No scleral icterus. No injection or drainage. NECK: Supple, trachea midline. No lymphadenopathy. CARDIOVASCULAR: Regular rate and rhythm without murmurs, gallops, or rubs. RESPIRATORY: Diminished breath sounds noted in the bases. No rhonchi wheezes noted. No accessory muscle use. GASTROINTESTINAL: Abdomen soft, non-tender, nondistended. Bowel sounds noted all quadrants. MUSCULOSKELETAL: No cyanosis, or edema. Pt evidenced weakness in all extremities. NEUROLOGICAL: Pleasant and cooperative. attentive. Procedures None Medications and IVs Current Medications Medications (Trade) Dose Ordered Sig/Gregg Route Start Time Stop Time Status Last Admin (Proscar) 5 mg DAILY PO 11/10/16 09:00 11/8/17 09:05 (Flomax) 0.4 mg HS PO 11/10/16 21:00 01/13/17 23:25 (Detrol La) 2 mg DAILY PO 11/10/16 09:00 01/14/17 09:04 (Glucagon Inj) 1 mg UNSCH PRN OTHER 11/09/16 23:45 11/24/16 03:48 (Ativan Inj) 1 mg Q5M PRN IV 11/12/16 00:45 11/12/16 01:45 (Peridex 0.12% Liq) 15 ml BID@08,20 MT 11/12/16 08:00 01/14/17 08:00 (NS Flush) DAILY IVF 11/12/16 09:00 01/04/17 09:00 (NS Flush) UNSCH PRN IVF 11/12/16 08:15 (Prevacid Odt) 30 mg DAILY NG 11/12/16 09:00 01/14/17 09:02 (Colace Liq) 100 mg Q12HR PO 11/12/16 09:00 01/13/17 23:25 (NS Flush) 2 ml UNSCH PRN IV FLUSH 11/12/16 08:30 (NS Flush) 2 ml BID IV FLUSH 11/12/16 09:00 01/14/17 09:07 (Tears Naturale Opth Soln) 1 drop TID EACH EYE 11/12/16 09:00 01/14/17 09:00 (Zofran Inj) 4 mg Q6H PRN IV 11/12/16 08:30 11/15/16 05:45 (Albuterol Neb) 2.5 mg Q2HR NEB PRN INH 11/12/16 08:30 11/29/16 21:19 (Dulcolax Supp) 10 mg DAILY PRN RECTAL 11/12/16 08:30 (Tylenol 650 Mg/ 20 ml Liq) 650 mg Q6H PRN NG 11/12/16 08:45 12/20/16 02:14 (Miralax) 17 gm BID OG-TUBE 11/13/16 21:00 01/13/17 23:25 (Lactulose Liq) 30 ml DAILY PO 11/14/16 09:00 Future Hold 12/02/16 09:54 (Glycerin Adult Supp) 2 gm BID PRN RECTAL 11/13/16 15:00 (Apresoline Inj) 20 mg Q4H PRN IV PUSH 11/14/16 02:15 11/14/16 03:07 (Brethine Inj) 1 mg UNSCH PRN SQ 11/20/16 16:30 (D50w (Syr) Inj) 50 ml UNSCH PRN IV 11/25/16 09:30 11/25/16 09:46 (Megace Liq) 400 mg DAILY PO 11/26/16 09:00 01/14/17 09:01 (Keppra) 1,000 mg Q8HR PO 11/30/16 22:00 01/14/17 12:36 (Bactroban 2% Cream) 1 applic Q12HR TOPICAL 12/02/16 21:00 01/14/17 09:00 (Santyl Oint) 1 applic DAILY TOPICAL 12/04/16 12:00 01/14/17 09:00 (Levsin) 0.125 mg Q4H PRN PO 12/04/16 11:30 01/11/17 21:47 (Heparin Central Flush) 200 units DAILY IV FLUSH 12/05/16 12:00 01/14/17 09:06 (Dilantin) 100 mg TID PO 12/14/16 13:00 01/14/17 12:36 (NovoLIN R SUPPLEMENTAL SCALE) 1 ACHS SLIDING SCALE SQ 12/16/16 12:00 01/13/17 23:23 (Norvasc) 5 mg DAILY PO 12/17/16 12:00 01/14/17 09:04 (Santyl Oint) 1 applic DAILY TOPICAL 12/19/16 14:45 01/06/17 09:00 (Lasix) 40 mg DAILY PO 12/29/16 09:00 01/14/17 09:05 (Levemir Inj) 10 units BID SQ 12/30/16 21:00 01/13/17 23:22 (Tylenol 650 Mg/ 20 ml Liq) 650 mg Q4H PRN PO 12/31/16 21:30 01/04/17 05:19 (Lopressor) 50 mg Q8HR PO 01/01/17 14:00 01/14/17 12:36 (Restoril) 7.5 mg HS PRN PO 01/05/17 14:45 01/06/17 20:19 Urinary Catheter: Yes Date of Insertion: Dec 17, 2016 Date of Insertion: Nov 12, 2016 Line: Central Venous Catheter Side: Right Location: Internal, Jugular A/P Problem List: (1) Subdural hematoma ICD Code: I62.00 - Nontraumatic subdural hemorrhage, unspecified Status: Acute (2) Diabetes ICD Code: E11.9 - Type 2 diabetes mellitus without complications Status: Chronic (3) Leukocytosis ICD Code: D72.829 - Elevated white blood cell count, unspecified Status: Acute (4) HTN (hypertension) ICD Code: I10 - Essential (primary) hypertension Status: Chronic (5) Dysphagia ICD Code: R13.10 - Dysphagia, unspecified (6) Urinary tract infection ICD Code: N39.0 - Urinary tract infection, site not specified Assessment and Plan 80 y/o with a history of HTN, DM, and BPH presented to the ED after a fall at home, with a LOC for 10-15 mins. Diabetes: Morning Levemir held due to BG being 77. Range for past 24 hours has been 77-177. Hypertension: controlled. Closed head injury Subdural hematoma Bilateral intracranial hemorrhaging - Managed by neurosurgery and no indication for surgery at this time - Neuro checks, seizure precautions - Continue with Keppra and Dilantin by mouth; monitor level - On and off drowsy. Awake and alert today. Metabolic encephalopathy - head CT 12/01/16 showed Bilateral hypodense subdural hematomas are seen in the occipital region and along the tentorium cerebelli on the right as well as small right frontal subdural hematoma unchanged. The left frontal parenchymal bleed is decreased in density with a small amount of edema identified. There is atrophy and moderate confluent hypodense white matter disease in the periventricular regions. The right frontal and left insular bleeds are much less conspicuous with a small amount of residual high density in the right frontal region with a small amount of surrounding edema. There is no midline shift or mass effect. Vascular calcifications are noted. No fractures. - CXR with improving aeration - Continue neurochecks - Ammonia level within normal. ABG without any changes. - Repeat brain MRI 12/13/16 showed 1. Examination demonstrates multiple small areas of intraparenchymal and extra ache she'll hemorrhage as described above he Sears are more apparent on the patient's MRI examination done on the CT. Direct comparison is made. The areas of edema and hemorrhage appears similar though they are isointense on the CT. 2. 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 There is cortical atrophy. - On and off drowsy. Awake and alert today Leukocytosis Anemia - Hematology following. Ordered other testing R/O other bone marrow abnormality. Follow results. - Blood cultures no growth in 5 days. Off antibiotics. 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 - Avoid unnecessary blood draws Respiratory insufficiency - Chest x-ray with improvement in aeration - Continue CPT - Schedule and DuoNeb when necessary and maintain oxygen saturation above 92% - Improving aeration with CXR - Off NC, tolerating RA. Occasional cough non productive. Good air entry. Atrial fibrillation Hypertension - Continue with Lopressor 25mg TID - better rate control and BP control - Oral anticoagulation contraindicated secondary to intracranial bleed - Monitor BP Trend, HR Decubitus ulcer, DTI sacral area - Continue Santyl - Wound care following. - Repositioning every 2 hour Benign prostatic hyperplasia - Continue with Flomax - Noriega care - Voiding trial when more awake and with increase activity Diabetes mellitus - hemoglobin A1c 6.0 - Levemir 10 units twice a day ISS. Monitor accucheck Occlusive DVT in cephalic vein right upper extremity - Hematology consultation appreciated however oral anticoagulation contraindicated - Avoid IV access RUE Dysphagia secondary to intracranial hemorrhage - Barium swallow study normal - Reassess by speech for swallowing evaluation. Recommends pure diet, nectar thickened consistency liquids. - Aspiration precaution Generalized weakness, prolonged hospitalization - Encourage family to do ROM exercises with patient while in bed. Needs to be aggressive with increase activity, OOB-chair, if patient has pain, to be addressed with pain medication -tylenol. - Discuss with family members that pain should not deter him to increase his activities or being OOB to chair. - Encourage activities in the morning so that patient can stay awake. Urinary tract infection, resolved - off antibiotics - Plan for voiding trial when more awake and active. Prophylaxis GI - lanosprazole DVT - SCD/pharmacological prophylaxis when okay with neurosurgery Discuss with patient, nursing, Dr. Gandhi Discharge Planning Discharge Planning Plan is for patient to leave out of the country to go to [facility]. Family [facility] with [facility]. Case management following. MDR indicated pt is to return to [facility] aboard medical flight that is being arranged by [facility]. Uncertain when pt is to be transported to his home country. Problem Qualifiers (1) HTN (hypertension): Qualified Codes: I10 - Essential (primary) hypertension Shay Solares Jr. Jan 14, 2017 13:59
--- NOTE | 2017-01-14 17:37 | HHI.NSPN ---
(CindyBrennon) History Chief Complaint: Unable to obtain due to patient not being cooperative. (CindyBrennon) Interval History 12/07: Patient opens eyes to voice, smiles, questionable followed simple command left UE x one, not following commands other extremities. Not verbalizing. 12/13: Patient reported to be sleeping a little better at night. Still lethargic much of the day. According to family he is saying a few words and responds to questions, remains confused, following a few commands occasionally. 12/15: Patient extremely lethargic. No response to verbal stimulation but did withdraw upper extremities and open eyes to localised noxious stimulation. Slight moaning but no other response. 12/16: The patient is lethargic but less so today. He was noted to open his eyes and move both upper extremities spontaneously. He did respond to some commands weakly but did not verbalise. 12/19: This morning the patient is seen in rounds with Dr. Godfrey. The patient is awake and alert and did track with his eyes. 12/23: When seen this morning the patient's daughter is feeding him. He does spontaneously open his eyes and move the upper extremities. He does appear to track with the eyes. 12/25: The patient is awake this morning and moving the right upper extremity spontaneously. He is watching Nursing and his family as they move about in the room. The jqsboppu-pe-axw reports that the embassy is to call the hospital once everything is ready for the patient to be transferred back to [facility] or if they need any further information. She says her , the patient's son, spoke with the embassy yesterday. 12/29: The patient is asleep but awakens to verbal stimulation. He spontaneously moves both upper extremities and follows some commands on the right side. 12/30: This morning the patient is lethargic. He briefly opens his eyes but does not follow commands. His daughter/dxzndajz-jj-arx reports that he was awake all night due to his coughing. She does state that they are waiting to hear when air trans will be coming to pick up worker the patient. 01/01: The patient is asleep when seen. He does awaken to voice and moves the upper extremities spontaneously. His daughter/ashhbyhc-ua-yvu reports that he does say a few words and at times it seems he is searching for the word he wants but is unable to find it. 01/03: The patient is awake and alert when seen and readily interacts. He reaches his hand out to shake mine. He is verbalising although his voice is slightly gravely. He does speak some in Austrian. 01/04: This morning the patient is awake and alert when seen. He readily interacts. His voice is a little stronger. He speaks in Austrian and Persian. His daughter/ozgmeilu-nm-yee states he is confused and doesn't remember seeing this practitioner yesterday. 01/05: When seen the patient is awake and alert. He readily interacts and speaks in a little Austrian with this practitioner but primarily in Persian. The daughter/ctvsrahu-lm-jxp reports that the patient didn't sleep the last two nights due to coughing. 01/07: This afternoon the patient is awake and fairly alert. He is verbalising in Persian. He is moving the upper extremities spontaneously. 01/08: The patient when seen intially this morning with Dr Godfrey was awake and alert in bed and tracking between people. He did verbalise in Persian and moved the upper extremities spontaneously. His son stated that he did recognise his grandchildren and knew their names. He also said that his conversation is appropriate at times. This afternoon the patient is asleep when seen. 01/09: When seen this morning the patient is lethargic. He does open his eyes to voice but he does not verbalise. He spontaneously moves the upper extremities. 01/12: This morning the patient is seen in rounds with Dr. Godfrey. Nursing is cleaning the patient after having a bowel movement. 01/13: When seen this morning the patient's son is feeding him breakfast. He is awake and alert, and readily interacts. He does verbalise a few words in Persian in response to questions from his son. He states he is doing good when asked and had no headache or other complaints. After being seen he wants to shake hands with this practitioner. 01/14: The patient is awake and alert in bed when seen this afternoon. He purposefully moves the upper extremities and verbalises some in Persian. He does not follow commands and pulls the sheet up over his head. (Brennon White) System Review Comments Unable to obtain due to patient not being cooperative. (Brennon White) Exam Results 01/12/17 01/12/17 01/13/17 01/13/17 01/14/17 01/14/17 06:00 18:00 06:00 18:00 06:00 18:00 Intake Total 720 ml 480 ml 500 ml 480 ml Output Total 1325 ml 975 ml 900 ml 250 ml Balance -605 ml -975 ml 480 ml -400 ml 230 ml Intake Oral 720 ml 480 ml 500 ml 480 ml Output Urine Total 1325 ml 975 ml 900 ml 250 ml # Voids 1 # Bowel Movements 2 3 3 1 1 Vital Signs Date Time Temp Pulse Resp B/P (MAP) Pulse Ox O2 Delivery O2 Flow Rate FiO2 01/14/17 16:15 98.4 90 18 123/67 (85) 99 01/14/17 12:05 98.3 99 18 112/63 (79) 96 01/14/17 08:07 97.8 85 17 130/65 (86) 98 01/14/17 08:00 91 01/14/17 05:30 98.8 100 23 140/88 (105) 95 01/14/17 02:19 96 01/14/17 00:45 97.4 101 21 141/68 (92) 98 01/13/17 20:50 98.5 100 20 150/71 (97) 97 01/13/17 16:50 97.9 95 18 151/71 (97) 96 01/13/17 12:46 97.9 97 20 119/61 (80) 95 01/13/17 08:21 98.4 85 20 114/60 (78) 94 01/13/17 08:00 96 01/13/17 04:00 97.0 96 20 140/70 (93) 98 01/13/17 01:20 98.7 101 20 149/76 (100) 97 01/12/17 22:35 97.6 104 18 130/74 (92) 96 01/12/17 21:10 94 01/12/17 16:06 98.0 98 20 135/77 (96) 99 01/12/17 13:39 98.6 98 20 116/68 (84) 97 01/12/17 08:37 96.5 81 18 117/75 (89) 96 01/12/17 07:00 97 01/12/17 05:55 98.0 95 18 134/66 (88) 98 01/12/17 02:03 97 01/12/17 00:42 98.6 94 18 128/74 (92) 80 01/11/17 20:30 94 01/11/17 20:23 98.7 97 20 128/68 (88) 96 (Brennon White) Physical Examination GENERAL: Awake & alert, doesn't want to interact and covers head, no evident distress. MUSCULOSKELETAL: Moves BUE spontaneously. NEUROLOGICAL: Awake & alert. Speaking a few words in Persian. Does not follow any commands. Moving BUE purposefully, no movement noted to BLE. (Brennon White) Medical Decision Making Impression and Plan Impression/plan: 1. Traumatic brain injury. Most recent CT scan stable with resolving contusions, stable mild to moderate subdural fluid collections without significant mass effect. Mental status fluctuating throughout the day but overall stable over the past week. 2. Jane UTI. Treated. 12/13/16 follow-up urine culture growth at 48 hours 3. Hypertension, atrial fibrillation. Remains on Lopressor. 3. Recent seizures. He remains on Keppra and Dilantin. 4. Sacral decubitus ulcer. Continuing decubitus precautions, wound care, Santyl 5. Leukocytosis. Hematology following-workup in progress. 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 6. Diabetes. Remains on insulin sliding scale. 7. Respiratory insufficiency. Improved. Stable on room air Patient remains neurologically stable. Awaiting word as to when transport back to [facility] is arranged per son. Medical management per Hospitalist. No active issues for Neurosurgery. (Brennon White) Attending Statement The exam, history, and the medical decision-making described in the above note were completed with the assistance of the mid-level provider. I reviewed and agree with the findings presented. I attest that I had a [id number] encounter with the patient on the same day, and personally performed and documented my assessment and findings in the medical record. No new neurologic changes. Vital signs are stable Seizure prophylaxis Discharge plans and progress (Tony Godfrey MD) Brennon White Jan 14, 2017 17:37 Tony Godfrey MD Jan 21, 2017 19:57
[2017-01-14] MEDS: TAMSULOSIN HCL 0.4 MG CAP PO SCH (21:49)
[2017-01-15] VITALS (8 sets, daily range): BP systolic 115–137; BP diastolic 59–79; PULSE 80–95; RESP 16–20; TEMP 97.6–98.7; O2SAT 96–98
[2017-01-15] MEDS: METOPROLOL TARTRATE 50 MG TAB PO SCH ×3 (06:14→22:37)
[2017-01-15] MEDS: levETIRAcetam 500 MG TAB PO SCH ×3 (06:14→22:37)
[2017-01-15] MEDS: INSULIN NovoLIN REGULAR SUPPLEMENTAL SCALE SQ SCH ×4 (08:00→22:30)
[2017-01-15] MEDS: CHLORHEXIDINE 0.12% (ORAL KIT) 15 ML CUP MT SCH ×2 (08:00→20:00)
[2017-01-15] MEDS: ARTIFICIAL TEARS OPTH SOLN 15 ML BTL EACH EYE SCH ×3 (08:18→16:52)
[2017-01-15] MEDS: SODIUM CHLORIDE 0.9% FLUSH 10 ML FLUSH IVF SCH (08:18)
[2017-01-15] MEDS: COLLAGENASE OINT 30 GM TUBE TOPICAL SCH ×2 (09:00)
[2017-01-15] MEDS: DOCUSATE SODIUM 100 MG/10 ML UDC PO SCH ×2 (09:00→21:00)
[2017-01-15] MEDS: MUPIROCIN 2% CREAM 15 GM TOPICAL SCH ×2 (09:00→22:37)
[2017-01-15] MEDS: INSULIN DETEMIR 100 UNITS/ML VIAL SQ SCH ×2 (09:00→10:15)
[2017-01-15] MEDS: POLYETHYLENE GLYCOL 17 GM PKG OG-TUBE SCH ×2 (09:00→21:00)
[2017-01-15] MEDS: PHENYTOIN SODIUM 100 MG CAP PO SCH ×3 (10:43→16:53)
[2017-01-15] MEDS: SODIUM CHLORIDE 0.9% FLUSH 10 ML FLUSH IV FLUSH SCH ×2 (10:43→22:38)
[2017-01-15] MEDS: FINASTERIDE 5 MG TAB PO SCH (10:43)
[2017-01-15] MEDS: FUROSEMIDE 40 MG TAB PO SCH (10:43)
[2017-01-15] MEDS: LANSOPRAZOLE SOLUTAB 30 MG TAB NG SCH (10:43)
[2017-01-15] MEDS: MEGESTROL ACETATE SUSP 400 MG/10 ML CUP PO SCH (10:43)
[2017-01-15] MEDS: TOLTERODINE TARTRATE 2 MG CAP LA PO SCH (10:43)
[2017-01-15] MEDS: amLODIPine BESYLATE 5 MG TAB PO SCH (10:43)
--- NOTE | 2017-01-15 10:45 | PD.WCN.NOT ---
Wound Consult Description: Follow up for sacral pressure injury Communicated with: JAYDEN Tolentino Recommendation: Please gently cleanse bilateral buttocks BID and PRN for moisture. Dry areas thoroughly. Apply skin protectant BID and PRN. Continue to reposition patient every 2 hours and PRN for comfort. Use only one ultrasorb underneath patient for moisture. Additional Information: Patient seen on [address] [place] [address] for follow up of sacral pressure injury. Patient is noted on an Advanced IV and was positioned to his left side with assistance from JAYDEN Tolentino. Foam adhesive was removed to reveal a closed wound with scar tissue. Patient had a bm and noted to by lying on a cloth pad and an ultrasorb. Patient was cleansed and a new ultrasorb placed for moisture. Calazime skin protectant was applied to perianal area. JAYDEN Tolentino and [employer] were at bedside repositioning patient when leaving room. Teresa Peraza [facility] Jan 15, 2017 10:45
--- NOTE | 2017-01-15 11:59 | HHI.NSPN ---
History Chief Complaint: Unable to obtain due to patient not being cooperative. Interval History Awake and alert today. Nursing staff reports no new problems Exam Results Vital Signs Date Time Temp Pulse Resp B/P (MAP) Pulse Ox O2 Delivery O2 Flow Rate FiO2 01/15/17 09:45 98.1 80 18 117/62 (80) 98 Intake and Output 01/15/17 01/15/17 01/16/17 08:00 16:00 00:00 Intake Total 240 ml Output Total 550 ml Balance -310 ml Physical Examination He is sound asleep when I enter the room today. The patient's daughter is in the room with him. She indicates that he just fell asleep. I did not wake him up. She states that he has been awake and alert this morning, conversing with her. He ate all of his breakfast No significant neurologic changes reported Medical Decision Making Impression and Plan Impression/plan: 1. Traumatic brain injury. Most recent CT scan stable with resolving contusions, stable mild to moderate subdural fluid collections without significant mass effect. Mental status fluctuating throughout the day but overall stable over the past week. 2. UTI. Treated. 12/13/16 follow-up urine culture growth at 48 hours 3. Hypertension, atrial fibrillation. Remains on Lopressor. 3. Recent seizures. He remains on Keppra and Dilantin. 4. Sacral decubitus ulcer. Continuing decubitus precautions, wound care, Santyl 5. Leukocytosis. Hematology following. 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 Diabetes. Remains on insulin sliding scale. 7. Respiratory insufficiency. Improved. Stable on room air 8. Disposition. Efforts to transfer patient back to [facility] continue Tony Godfrey MD Jan 15, 2017 11:59
--- NOTE | 2017-01-15 15:38 | HHI.PR ---
Subjective Remarks Follow up visit SDH, UE DVT, HTN, DM2. Patient seen and examined today laying in bed with covers over his head. Pt indicated he was not feeling well and he had an upset stomach. Pt stated he had no pain and, except as noted above, had no new complaints. He denied cough, fever, shortness of breath, bowel/bladder difficulties. Daughter was present at bedside and stated her father "has been like this all day. He tells me he doesn't fell well but no more than that." Per RN (Randa) pt is relatively unchanged. She stated pt had recently received medication for seizure control.RN noted blood glucose was low this am (85) and did not administer morning Levemir. Objective Vitals Vital Signs Date Time Temp Pulse Resp B/P (MAP) Pulse Ox O2 Delivery O2 Flow Rate FiO2 01/15/17 13:52 98.7 85 18 115/73 (87) 96 01/15/17 12:58 92 01/15/17 09:45 98.1 80 18 117/62 (80) 98 01/15/17 05:59 98.0 95 17 129/59 (82) 97 01/15/17 00:21 98.0 83 17 137/61 (86) 97 01/14/17 20:30 98.3 92 17 119/56 (77) 97 01/14/17 16:15 98.4 90 18 123/67 (85) 99 I/O 01/14/17 01/14/17 01/14/17 01/15/17 01/15/17 01/15/17 07:00 15:00 23:00 07:00 15:00 23:00 Intake Total 400 ml 480 ml 240 ml Output Total 400 ml 250 ml 550 ml Balance 0 ml 230 ml -310 ml Intake Oral 400 ml 480 ml 240 ml Output Urine Total 400 ml 250 ml 550 ml # Bowel Movements 0 1 1 1 Objective Remarks GENERAL: Pt encountered laying in bed, with sheet and blanket over his head. NAD. Minimal involvement in interview and exam. SKIN: Warm and dry. HEAD: Normocephalic. EYES: No scleral icterus. No injection or drainage. NECK: Supple, trachea midline. No lymphadenopathy. CARDIOVASCULAR: Regular rate and rhythm without murmurs, gallops, or rubs. RESPIRATORY: Diminished breath sounds noted in the bases. No rhonchi wheezes noted. No accessory muscle use. GASTROINTESTINAL: Abdomen soft, non-tender, nondistended. Bowel sounds noted all quadrants. MUSCULOSKELETAL: No cyanosis, or edema. Pt evidenced weakness in all extremities. NEUROLOGICAL: Minimally cooperative. Followed some commands. Procedures None Medications and IVs Current Medications Medications (Trade) Dose Ordered Sig/Gregg Route Start Time Stop Time Status Last Admin (Proscar) 5 mg DAILY PO 11/10/16 09:00 01/15/17 10:43 (Flomax) 0.4 mg HS PO 11/10/16 21:00 01/14/17 21:49 (Detrol La) 2 mg DAILY PO 11/10/16 09:00 01/15/17 10:43 (Glucagon Inj) 1 mg UNSCH PRN OTHER 11/09/16 23:45 11/24/16 03:48 (Ativan Inj) 1 mg Q5M PRN IV 11/12/16 00:45 11/12/16 01:45 (Peridex 0.12% Liq) 15 ml BID@08,20 MT 11/12/16 08:00 01/14/17 08:00 (NS Flush) DAILY IVF 11/12/16 09:00 01/04/17 09:00 (NS Flush) UNSCH PRN IVF 11/12/16 08:15 (Prevacid Odt) 30 mg DAILY NG 11/12/16 09:00 01/15/17 10:43 (Colace Liq) 100 mg Q12HR PO 11/12/16 09:00 01/13/17 23:25 (NS Flush) 2 ml UNSCH PRN IV FLUSH 11/12/16 08:30 (NS Flush) 2 ml BID IV FLUSH 11/12/16 09:00 01/15/17 10:43 (Tears Naturale Opth Soln) 1 drop TID EACH EYE 11/12/16 09:00 01/14/17 17:24 (Zofran Inj) 4 mg Q6H PRN IV 11/12/16 08:30 11/15/16 05:45 (Albuterol Neb) 2.5 mg Q2HR NEB PRN INH 11/12/16 08:30 11/29/16 21:19 (Dulcolax Supp) 10 mg DAILY PRN RECTAL 11/12/16 08:30 (Tylenol 650 Mg/ 20 ml Liq) 650 mg Q6H PRN NG 11/12/16 08:45 12/20/16 02:14 (Miralax) 17 gm BID OG-TUBE 11/13/16 21:00 01/13/17 23:25 (Lactulose Liq) 30 ml DAILY PO 11/14/16 09:00 Future Hold 12/02/16 09:54 (Glycerin Adult Supp) 2 gm BID PRN RECTAL 11/13/16 15:00 (Apresoline Inj) 20 mg Q4H PRN IV PUSH 11/14/16 02:15 11/14/16 03:07 (Brethine Inj) 1 mg UNSCH PRN SQ 11/20/16 16:30 (D50w (Syr) Inj) 50 ml UNSCH PRN IV 11/25/16 09:30 11/25/16 09:46 (Megace Liq) 400 mg DAILY PO 11/26/16 09:00 01/15/17 10:43 (Keppra) 1,000 mg Q8HR PO 11/30/16 22:00 01/15/17 14:14 (Bactroban 2% Cream) 1 applic Q12HR TOPICAL 12/02/16 21:00 01/15/17 09:00 (Santyl Oint) 1 applic DAILY TOPICAL 12/04/16 12:00 01/14/17 09:00 (Levsin) 0.125 mg Q4H PRN PO 12/04/16 11:30 01/11/17 21:47 (Heparin Central Flush) 200 units DAILY IV FLUSH 12/05/16 12:00 01/14/17 09:06 (Dilantin) 100 mg TID PO 12/14/16 13:00 01/15/17 12:22 (NovoLIN R SUPPLEMENTAL SCALE) 1 ACHS SLIDING SCALE SQ 12/16/16 12:00 01/14/17 21:52 (Norvasc) 5 mg DAILY PO 12/17/16 12:00 01/15/17 10:43 (Santyl Oint) 1 applic DAILY TOPICAL 12/19/16 14:45 01/06/17 09:00 (Lasix) 40 mg DAILY PO 12/29/16 09:00 01/15/17 10:43 (Tylenol 650 Mg/ 20 ml Liq) 650 mg Q4H PRN PO 12/31/16 21:30 01/04/17 05:19 (Lopressor) 50 mg Q8HR PO 01/01/17 14:00 01/15/17 14:14 (Restoril) 7.5 mg HS PRN PO 01/05/17 14:45 01/06/17 20:19 (Levemir Inj) 10 units DAILY SQ 01/15/17 10:15 Urinary Catheter: Yes Date of Insertion: Dec 17, 2016 Date of Insertion: Nov 12, 2016 Line: Central Venous Catheter Side: Right Location: Internal, Jugular A/P Problem List: (1) Subdural hematoma ICD Code: I62.00 - Nontraumatic subdural hemorrhage, unspecified Status: Acute (2) Diabetes ICD Code: E11.9 - Type 2 diabetes mellitus without complications Status: Chronic (3) Leukocytosis ICD Code: D72.829 - Elevated white blood cell count, unspecified Status: Acute (4) HTN (hypertension) ICD Code: I10 - Essential (primary) hypertension Status: Chronic (5) Dysphagia ICD Code: R13.10 - Dysphagia, unspecified (6) Urinary tract infection ICD Code: N39.0 - Urinary tract infection, site not specified Assessment and Plan 80 y/o with a history of HTN, DM, and BPH presented to the ED after a fall at home, with a LOC for 10-15 mins. Diabetes: Morning Levemir held due to BG being 85. Range for past 24 hours has been 85-192. Nightly Levemir dosing discontinued. Hypertension: remains controlled. Closed head injury Subdural hematoma Bilateral intracranial hemorrhaging - Managed by neurosurgery and no indication for surgery at this time - Neuro checks, seizure precautions - Continue with Keppra and Dilantin by mouth; monitor level - On and off drowsy. Awake and alert today. Metabolic encephalopathy - head CT 12/01/16 showed Bilateral hypodense subdural hematomas are seen in the occipital region and along the tentorium cerebelli on the right as well as small right frontal subdural hematoma unchanged. The left frontal parenchymal bleed is decreased in density with a small amount of edema identified. There is atrophy and moderate confluent hypodense white matter disease in the periventricular regions. The right frontal and left insular bleeds are much less conspicuous with a small amount of residual high density in the right frontal region with a small amount of surrounding edema. There is no midline shift or mass effect. Vascular calcifications are noted. No fractures. - CXR with improving aeration - Continue neurochecks - Ammonia level within normal. ABG without any changes. - Repeat brain MRI 12/13/16 showed 1. Examination demonstrates multiple small areas of intraparenchymal and extra ache she'll hemorrhage as described above he Sears are more apparent on the patient's MRI examination done on the CT. Direct comparison is made. The areas of edema and hemorrhage appears similar though they are isointense on the CT. 2. 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 There is cortical atrophy. - On and off drowsy. Awake and alert today Leukocytosis Anemia - Hematology following. Ordered other testing R/O other bone marrow abnormality. Follow results. - Blood cultures no growth in 5 days. Off antibiotics. 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 - Avoid unnecessary blood draws Respiratory insufficiency - Chest x-ray with improvement in aeration - Continue CPT - Schedule and DuoNeb when necessary and maintain oxygen saturation above 92% - Improving aeration with CXR - Off NC, tolerating RA. Occasional cough non productive. Good air entry. Atrial fibrillation Hypertension - Continue with Lopressor 25mg TID - better rate control and BP control - Oral anticoagulation contraindicated secondary to intracranial bleed - Monitor BP Trend, HR Decubitus ulcer, DTI sacral area - Continue Santyl - Wound care following. - Repositioning every 2 hour Benign prostatic hyperplasia - Continue with Flomax - Noriega care - Voiding trial when more awake and with increase activity Diabetes mellitus - hemoglobin A1c 6.0 - Levemir 10 units twice a day ISS. Monitor accucheck Occlusive DVT in cephalic vein right upper extremity - Hematology consultation appreciated however oral anticoagulation contraindicated - Avoid IV access RUE Dysphagia secondary to intracranial hemorrhage - Barium swallow study normal - Reassess by speech for swallowing evaluation. Recommends pure diet, nectar thickened consistency liquids. - Aspiration precaution Generalized weakness, prolonged hospitalization - Encourage family to do ROM exercises with patient while in bed. Needs to be aggressive with increase activity, OOB-chair, if patient has pain, to be addressed with pain medication -tylenol. - Discuss with family members that pain should not deter him to increase his activities or being OOB to chair. - Encourage activities in the morning so that patient can stay awake. Urinary tract infection, resolved - off antibiotics - Plan for voiding trial when more awake and active. Prophylaxis GI - lanosprazole DVT - SCD/pharmacological prophylaxis when okay with neurosurgery Discuss with patient, pt's Daughter (at bedside), nursing, Dr. Gandhi Discharge Planning Discharge Planning Plan is for patient to leave out of the country to go to [facility]. Family has arranged for transport with a [facility]. Case management following. MDR indicated pt is to return to [facility] aboard medical flight that is being arranged by [facility]. Uncertain when pt is to be transported to his home country. Problem Qualifiers (1) HTN (hypertension): Qualified Codes: I10 - Essential (primary) hypertension Shay Solares Jr. Jan 15, 2017 15:38
[2017-01-15] MEDS: TAMSULOSIN HCL 0.4 MG CAP PO SCH (22:37)
[2017-01-16] VITALS (8 sets, daily range): BP systolic 108–147; BP diastolic 63–74; PULSE 80–100; RESP 17–20; TEMP 97.1–98; O2SAT 95–98
[2017-01-16] MEDS: levETIRAcetam 500 MG TAB PO SCH ×3 (06:47→21:15)
[2017-01-16] MEDS: METOPROLOL TARTRATE 50 MG TAB PO SCH ×3 (06:48→21:15)
[2017-01-16] MEDS: CHLORHEXIDINE 0.12% (ORAL KIT) 15 ML CUP MT SCH ×2 (07:24→20:00)
[2017-01-16] MEDS: COLLAGENASE OINT 30 GM TUBE TOPICAL SCH ×2 (07:25)
[2017-01-16] MEDS: ARTIFICIAL TEARS OPTH SOLN 15 ML BTL EACH EYE SCH ×3 (07:25→17:07)
[2017-01-16] MEDS: SODIUM CHLORIDE 0.9% FLUSH 10 ML FLUSH IVF SCH (07:25)
[2017-01-16] MEDS: POLYETHYLENE GLYCOL 17 GM PKG OG-TUBE SCH ×2 (07:25→21:00)
[2017-01-16] MEDS: DOCUSATE SODIUM 100 MG/10 ML UDC PO SCH ×2 (07:25→21:00)
[2017-01-16] MEDS: INSULIN NovoLIN REGULAR SUPPLEMENTAL SCALE SQ SCH ×4 (07:36→21:00)
[2017-01-16] MEDS: INSULIN DETEMIR 100 UNITS/ML VIAL SQ SCH (09:00)
[2017-01-16] MEDS: MUPIROCIN 2% CREAM 15 GM TOPICAL SCH ×2 (09:00→21:00)
[2017-01-16] MEDS: TOLTERODINE TARTRATE 2 MG CAP LA PO SCH (09:18)
[2017-01-16] MEDS: PHENYTOIN SODIUM 100 MG CAP PO SCH ×3 (09:18→17:08)
[2017-01-16] MEDS: FUROSEMIDE 40 MG TAB PO SCH (09:18)
[2017-01-16] MEDS: SODIUM CHLORIDE 0.9% FLUSH 10 ML FLUSH IV FLUSH SCH ×2 (09:18→21:17)
[2017-01-16] MEDS: FINASTERIDE 5 MG TAB PO SCH (09:18)
[2017-01-16] MEDS: LANSOPRAZOLE SOLUTAB 30 MG TAB NG SCH (09:18)
[2017-01-16] MEDS: MEGESTROL ACETATE SUSP 400 MG/10 ML CUP PO SCH (09:18)
[2017-01-16] MEDS: amLODIPine BESYLATE 5 MG TAB PO SCH (09:19)
--- NOTE | 2017-01-16 10:40 | HHI.NSPN ---
History Chief Complaint: Unable to obtain due to patient not being cooperative. Interval History Patient is awake and alert this morning. He does not speaking layers. According to nursing was having no new complaints while daughter was available in the room. Exam Results Vital Signs Date Time Temp Pulse Resp B/P (MAP) Pulse Ox O2 Delivery O2 Flow Rate FiO2 01/16/17 08:50 97.7 86 17 119/64 (82) 96 Intake and Output 01/16/17 01/16/17 01/17/17 08:00 16:00 00:00 Intake Total 100 ml Output Total 400 ml Balance -300 ml Physical Examination Awake and alert. In fact speech output. Moves all 4 extremities spontaneously and appropriate to painful stimulation. Lab, Micro, Other Results Date/Time Source Procedure Growth Status 12/04/16 18:10 Blood Peripheral Aerobic Blood Culture - Final NO GROWTH IN 5 DAYS Complete 12/04/16 18:10 Blood Peripheral Anaerobic Blood Culture - Final NO GROWTH IN 5 DAYS Complete 11/17/16 08:50 Sputum Endotracheal Gram Stain - Final Complete 11/17/16 08:50 Sputum Endotracheal Sputum Culture - Final HEAVY GROWTH NORMAL RESPIRATORY ITZEL Complete 12/13/16 14:46 Urine Catheterized Urine Urine Culture - Final NO GROWTH IN 48 HOURS. Complete Medical Decision Making Impression and Plan Assessment: Status post closed head injury. Neurological examination stable. Plan: Patient awaiting transfer back to [facility]. Omer Aguilar MD Jan 16, 2017 10:40
--- NOTE | 2017-01-16 15:13 | HHI.PR ---
Subjective Remarks Follow up visit SDH, UE DVT, HTN, DM2. Patient seen and examined today laying in bed with covers up to his neck. Pt stated he had no new complaints. He denied cough, fever, shortness of breath, bowel/bladder difficulties. Per RN (Randa) pt is relatively unchanged. She reported that pt was to receive Zofran yesterday for upset stomach but family "told me no" and medication was not administered. Objective Vitals Vital Signs Date Time Temp Pulse Resp B/P (MAP) Pulse Ox O2 Delivery O2 Flow Rate FiO2 01/16/17 12:54 97.5 99 17 119/63 (81) 96 01/16/17 10:45 85 01/16/17 08:50 97.7 86 17 119/64 (82) 96 01/16/17 04:30 97.1 80 20 140/63 (88) 98 01/16/17 00:30 97.6 89 20 125/65 (85) 96 01/15/17 20:40 97.6 94 20 127/74 (91) 96 01/15/17 18:00 89 01/15/17 17:37 98.5 80 16 129/79 (96) 96 I/O 01/15/17 01/15/17 01/15/17 01/16/17 01/16/17 01/16/17 07:00 15:00 23:00 07:00 15:00 23:00 Intake Total 240 ml 400 ml 100 ml 480 ml Output Total 550 ml 300 ml 400 ml Balance -310 ml 100 ml -300 ml 480 ml Intake Oral 240 ml 400 ml 100 ml 480 ml Output Urine Total 550 ml 300 ml 400 ml # Bowel Movements 1 0 0 Imaging Last Impressions Chest X-Ray 01/05/17 0000 Signed Impressions: Service Date/Time: Thursday, January 05, 2017 15:05 - CONCLUSION: 1. Stable chronic interstitial disease bilaterally. 2. Small bilateral pleural effusions. 3. Degenerative changes and scoliosis of the thoracic spine. Juan Manuel Michel MD Brain MRI 12/13/16 0000 Signed Impressions: Service Date/Time: Tuesday, December 13, 2016 12:20 - CONCLUSION: 1. The examination demonstrates multiple small areas of intraparenchymal and extra-axial hemorrhage as described above. These areas are more apparent on the patient's MRI examination than on the CT. Direct comparison is made. The areas of edema and hemorrhage appear similar though they are isointense on the CT. 2. 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 There is cortical atrophy. Anthony Burns MD Upper Extremity Ultrasound 12/02/16 0000 Signed Impressions: Service Date/Time: Saturday, December 03, 2016 00:53 - CONCLUSION: 1. Occlusive DVT in the cephalic and basilic vein on the right. Alex Goode MD Head CT 12/01/16 0000 Signed Impressions: Service Date/Time: Thursday, December 01, 2016 13:14 - CONCLUSION: Evolving intracranial hemorrhagic foci as above, both intra-axial and extra-axial. Jesus Lee MD Modified Barium Swallow 11/30/16 0000 Signed Impressions: Service Date/Time: Wednesday, November 30, 2016 00:00 - CONCLUSION: Please refer to speech pathology report for full details. Lonnie Cook MD Transcranial Doppler Study Complete 11/17/16 0000 Signed Impressions: Service Date/Time: Thursday, November 17, 2016 10:03 - CONCLUSION: 1. Nondiagnostic examination due to poor transcranial windows. Konstantin Dash MD Abdomen X-Ray 11/12/16 0000 Signed Impressions: Service Date/Time: Saturday, November 12, 2016 08:23 - CONCLUSION: 1. Gastric tube in good position. 2. Probable right renal stones. Narayan Coulter MD Cervical Spine CT 11/09/161950 Signed Impressions: Service Date/Time: Wednesday, November 09, 2016 20:14 - CONCLUSION: Negative trauma CT. Cj Isidro MD Objective Remarks GENERAL: Pt encountered laying in bed, with sheet and blanket up to his neck. NAD. Minimal involvement in interview and exam. SKIN: Warm and dry. HEAD: Normocephalic. EYES: No scleral icterus. No injection or drainage. NECK: Supple, trachea midline. No lymphadenopathy. CARDIOVASCULAR: Regular rate and rhythm without murmurs, gallops, or rubs. RESPIRATORY: Diminished breath sounds noted in the bases. No rhonchi wheezes noted. No accessory muscle use. GASTROINTESTINAL: Abdomen soft, non-tender, nondistended. Bowel sounds noted all quadrants. MUSCULOSKELETAL: No cyanosis, or edema. Pt evidenced weakness in all extremities. NEUROLOGICAL: Minimally cooperative. Followed some commands. Procedures None Medications and IVs Current Medications Medications (Trade) Dose Ordered Sig/Gregg Route Start Time Stop Time Status Last Admin (Proscar) 5 mg DAILY PO 11/10/16 09:00 01/16/17 09:18 (Flomax) 0.4 mg HS PO 11/10/16 21:00 01/15/17 22:37 (Detrol La) 2 mg DAILY PO 11/10/16 09:00 01/16/17 09:18 (Glucagon Inj) 1 mg UNSCH PRN OTHER 11/09/16 23:45 11/24/16 03:48 (Ativan Inj) 1 mg Q5M PRN IV 11/12/16 00:45 11/12/16 01:45 (Peridex 0.12% Liq) 15 ml BID@08,20 MT 11/12/16 08:00 01/14/17 08:00 (NS Flush) DAILY IVF 11/12/16 09:00 01/04/17 09:00 (NS Flush) UNSCH PRN IVF 11/12/16 08:15 (Prevacid Odt) 30 mg DAILY NG 11/12/16 09:00 01/16/17 09:18 (Colace Liq) 100 mg Q12HR PO 11/12/16 09:00 01/13/17 23:25 (NS Flush) 2 ml UNSCH PRN IV FLUSH 11/12/16 08:30 (NS Flush) 2 ml BID IV FLUSH 11/12/16 09:00 01/16/17 09:18 (Tears Naturale Opth Soln) 1 drop TID EACH EYE 11/12/16 09:00 01/14/17 17:24 (Zofran Inj) 4 mg Q6H PRN IV 11/12/16 08:30 11/15/16 05:45 (Albuterol Neb) 2.5 mg Q2HR NEB PRN INH 11/12/16 08:30 11/29/16 21:19 (Dulcolax Supp) 10 mg DAILY PRN RECTAL 11/12/16 08:30 (Tylenol 650 Mg/ 20 ml Liq) 650 mg Q6H PRN NG 11/12/16 08:45 12/20/16 02:14 (Miralax) 17 gm BID OG-TUBE 11/13/16 21:00 01/13/17 23:25 (Lactulose Liq) 30 ml DAILY PO 11/14/16 09:00 Future Hold 12/02/16 09:54 (Glycerin Adult Supp) 2 gm BID PRN RECTAL 11/13/16 15:00 (Apresoline Inj) 20 mg Q4H PRN IV PUSH 11/14/16 02:15 11/14/16 03:07 (Brethine Inj) 1 mg UNSCH PRN SQ 11/20/16 16:30 (D50w (Syr) Inj) 50 ml UNSCH PRN IV 11/25/16 09:30 11/25/16 09:46 (Megace Liq) 400 mg DAILY PO 11/26/16 09:00 01/16/17 09:18 (Keppra) 1,000 mg Q8HR PO 11/30/16 22:00 01/16/17 13:00 (Bactroban 2% Cream) 1 applic Q12HR TOPICAL 12/02/16 21:00 01/16/17 09:00 (Santyl Oint) 1 applic DAILY TOPICAL 12/04/16 12:00 01/14/17 09:00 (Levsin) 0.125 mg Q4H PRN PO 12/04/16 11:30 01/11/17 21:47 (Heparin Central Flush) 200 units DAILY IV FLUSH 12/05/16 12:00 01/14/17 09:06 (Dilantin) 100 mg TID PO 12/14/16 13:00 01/16/17 12:18 (NovoLIN R SUPPLEMENTAL SCALE) 1 ACHS SLIDING SCALE SQ 12/16/16 12:00 01/16/17 12:00 (Norvasc) 5 mg DAILY PO 12/17/16 12:00 01/16/17 09:19 (Santyl Oint) 1 applic DAILY TOPICAL 12/19/16 14:45 01/06/17 09:00 (Lasix) 40 mg DAILY PO 12/29/16 09:00 01/16/17 09:18 (Tylenol 650 Mg/ 20 ml Liq) 650 mg Q4H PRN PO 12/31/16 21:30 01/04/17 05:19 (Lopressor) 50 mg Q8HR PO 01/01/17 14:00 01/16/17 13:00 (Restoril) 7.5 mg HS PRN PO 01/05/17 14:45 01/06/17 20:19 (Levemir Inj) 10 units DAILY SQ 01/15/17 10:15 01/16/17 09:00 Urinary Catheter: Yes Date of Insertion: Dec 17, 2016 Date of Insertion: Nov 12, 2016 Line: Central Venous Catheter Side: Right Location: Internal, Jugular A/P Problem List: (1) Subdural hematoma ICD Code: I62.00 - Nontraumatic subdural hemorrhage, unspecified Status: Acute (2) Diabetes ICD Code: E11.9 - Type 2 diabetes mellitus without complications Status: Chronic (3) Leukocytosis ICD Code: D72.829 - Elevated white blood cell count, unspecified Status: Acute (4) HTN (hypertension) ICD Code: I10 - Essential (primary) hypertension Status: Chronic (5) Dysphagia ICD Code: R13.10 - Dysphagia, unspecified (6) Urinary tract infection ICD Code: N39.0 - Urinary tract infection, site not specified Assessment and Plan 80 y/o with a history of HTN, DM, and BPH presented to the ED after a fall at home, with a LOC for 10-15 mins. Diabetes: Blood glucose this morning was 128. Range for past 24 hours blood glucose has been 85-170. Hypertension: remains controlled. Respiratory: Pt remains off oxygen. Oxygen saturation range for past 24 hours is 96%+. Pt's Duoneb regimen discontinued on 12/12. Last albuterol inhaler treatment was 11/29/16. Closed head injury Subdural hematoma Bilateral intracranial hemorrhaging - Managed by neurosurgery and no indication for surgery at this time - Neuro checks, seizure precautions - Continue with Keppra and Dilantin by mouth; monitor level - On and off drowsy. Awake and alert today. Metabolic encephalopathy - head CT 12/01/16 showed Bilateral hypodense subdural hematomas are seen in the occipital region and along the tentorium cerebelli on the right as well as small right frontal subdural hematoma unchanged. The left frontal parenchymal bleed is decreased in density with a small amount of edema identified. There is atrophy and moderate confluent hypodense white matter disease in the periventricular regions. The right frontal and left insular bleeds are much less conspicuous with a small amount of residual high density in the right frontal region with a small amount of surrounding edema. There is no midline shift or mass effect. Vascular calcifications are noted. No fractures. - CXR with improving aeration - Continue neurochecks - Ammonia level within normal. ABG without any changes. - Repeat brain MRI 12/13/16 showed 1. Examination demonstrates multiple small areas of intraparenchymal and extra ache she'll hemorrhage as described above he Sears are more apparent on the patient's MRI examination done on the CT. Direct comparison is made. The areas of edema and hemorrhage appears similar though they are isointense on the CT. 2. 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 There is cortical atrophy. - On and off drowsy. Awake and alert today Leukocytosis Anemia - Hematology following. Ordered other testing R/O other bone marrow abnormality. Follow results. - Blood cultures no growth in 5 days. Off antibiotics. 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 - Avoid unnecessary blood draws Respiratory insufficiency - Chest x-ray with improvement in aeration - Continue CPT - Schedule and DuoNeb when necessary and maintain oxygen saturation above 92% - Improving aeration with CXR - Off NC, tolerating RA. Occasional cough non productive. Good air entry. Atrial fibrillation Hypertension - Continue with Lopressor 25mg TID - better rate control and BP control - Oral anticoagulation contraindicated secondary to intracranial bleed - Monitor BP Trend, HR Decubitus ulcer, DTI sacral area - Continue Santyl - Wound care following. - Repositioning every 2 hour Benign prostatic hyperplasia - Continue with Flomax - Noriega care - Voiding trial when more awake and with increase activity Diabetes mellitus - hemoglobin A1c 6.0 - Levemir 10 units twice a day ISS. Monitor accucheck Occlusive DVT in cephalic vein right upper extremity - Hematology consultation appreciated however oral anticoagulation contraindicated - Avoid IV access RUE Dysphagia secondary to intracranial hemorrhage - Barium swallow study normal - Reassess by speech for swallowing evaluation. Recommends pure diet, nectar thickened consistency liquids. - Aspiration precaution Generalized weakness, prolonged hospitalization - Encourage family to do ROM exercises with patient while in bed. Needs to be aggressive with increase activity, OOB-chair, if patient has pain, to be addressed with pain medication -tylenol. - Discuss with family members that pain should not deter him to increase his activities or being OOB to chair. - Encourage activities in the morning so that patient can stay awake. Urinary tract infection, resolved - off antibiotics - Plan for voiding trial when more awake and active. Prophylaxis GI - lanosprazole DVT - SCD/pharmacological prophylaxis when okay with neurosurgery Discuss with patient, nursing, Dr. Gandhi Discharge Planning Discharge Planning Plan is for patient to leave out of the country to go to [facility]. Family has arranged for transport with a [employer]. Case management following. MDR indicated pt is to return to [facility] aboard medical flight that is being arranged by [employer]. Uncertain when pt is to be transported to his home country. Problem Qualifiers (1) HTN (hypertension): Qualified Codes: I10 - Essential (primary) hypertension Shay Solares Jr. Jan 16, 2017 15:13
[2017-01-16] MEDS: TAMSULOSIN HCL 0.4 MG CAP PO SCH (21:15)
[2017-01-17] VITALS (8 sets, daily range): BP systolic 112–138; BP diastolic 55–75; PULSE 84–97; RESP 20; TEMP 98.1–98.8; O2SAT 96–98
[2017-01-17] MEDS: MUPIROCIN 2% CREAM 15 GM TOPICAL SCH ×2 (00:24→10:05)
[2017-01-17] MEDS: METOPROLOL TARTRATE 50 MG TAB PO SCH ×3 (05:58→21:56)
[2017-01-17] MEDS: levETIRAcetam 500 MG TAB PO SCH ×3 (05:58→21:56)
[2017-01-17] MEDS: INSULIN NovoLIN REGULAR SUPPLEMENTAL SCALE SQ SCH ×4 (08:00→21:00)
[2017-01-17] MEDS: CHLORHEXIDINE 0.12% (ORAL KIT) 15 ML CUP MT SCH ×2 (08:00→22:01)
[2017-01-17] MEDS: DOCUSATE SODIUM 100 MG/10 ML UDC PO SCH ×2 (09:00→21:55)
[2017-01-17] MEDS: COLLAGENASE OINT 30 GM TUBE TOPICAL SCH ×2 (09:00)
[2017-01-17] MEDS: POLYETHYLENE GLYCOL 17 GM PKG OG-TUBE SCH ×2 (09:00→21:55)
[2017-01-17] MEDS: ARTIFICIAL TEARS OPTH SOLN 15 ML BTL EACH EYE SCH ×3 (09:00→17:44)
[2017-01-17] MEDS: SODIUM CHLORIDE 0.9% FLUSH 10 ML FLUSH IVF SCH (09:00)
[2017-01-17] MEDS: amLODIPine BESYLATE 5 MG TAB PO SCH (09:59)
[2017-01-17] MEDS: FINASTERIDE 5 MG TAB PO SCH (10:00)
[2017-01-17] MEDS: TOLTERODINE TARTRATE 2 MG CAP LA PO SCH (10:00)
[2017-01-17] MEDS: PHENYTOIN SODIUM 100 MG CAP PO SCH ×3 (10:00→17:44)
[2017-01-17] MEDS: FUROSEMIDE 40 MG TAB PO SCH (10:00)
[2017-01-17] MEDS: LANSOPRAZOLE SOLUTAB 30 MG TAB NG SCH (10:00)
[2017-01-17] MEDS: MEGESTROL ACETATE SUSP 400 MG/10 ML CUP PO SCH (10:01)
[2017-01-17] MEDS: SODIUM CHLORIDE 0.9% FLUSH 10 ML FLUSH IV FLUSH SCH ×2 (10:02→22:01)
[2017-01-17] MEDS: INSULIN DETEMIR 100 UNITS/ML VIAL SQ SCH (10:04)
--- NOTE | 2017-01-17 14:04 | HHI.PR ---
Subjective Remarks Follow up visit SDH, UE DVT, HTN, DM2. Patient seen and examined today laying in bed with covers up to his neck. Pt stated he had no new complaints. Pt's daughter at bedside, no complaints/concerns reported regarding her father. He denied cough, fever, shortness of breath, bowel/bladder difficulties. Per RN (Juan A) pt is relatively unchanged. No acute issues noted or reported over night or since start of shift. Objective Vitals Vital Signs Date Time Temp Pulse Resp B/P (MAP) Pulse Ox O2 Delivery O2 Flow Rate FiO2 01/17/17 12:00 98.1 85 20 112/55 (74) 97 01/17/17 08:00 98.1 85 20 121/64 (83) 97 01/17/17 04:40 98.6 97 20 131/75 (93) 96 01/17/17 00:10 98.4 84 20 138/63 (88) 98 01/16/17 20:30 98.0 100 20 147/72 (97) 95 01/16/17 20:00 95 01/16/17 16:38 98.0 94 17 108/66 (80) 96 I/O 01/16/17 01/16/17 01/16/17 01/17/17 01/17/17 01/17/17 07:00 15:00 23:00 07:00 15:00 23:00 Intake Total 100 ml 480 ml 100 ml 150 ml Output Total 400 ml 650 ml 400 ml Balance -300 ml 480 ml -550 ml -250 ml Intake Oral 100 ml 480 ml 100 ml 150 ml Output Urine Total 400 ml 650 ml 400 ml # Voids 1 # Bowel Movements 0 2 1 Imaging Last Impressions Chest X-Ray 01/05/17 0000 Signed Impressions: Service Date/Time: Thursday, January 05, 2017 15:05 - CONCLUSION: 1. Stable chronic interstitial disease bilaterally. 2. Small bilateral pleural effusions. 3. Degenerative changes and scoliosis of the thoracic spine. Juan Manuel Michel MD Brain MRI 12/13/16 0000 Signed Impressions: Service Date/Time: Tuesday, December 13, 2016 12:20 - CONCLUSION: 1. The examination demonstrates multiple small areas of intraparenchymal and extra-axial hemorrhage as described above. These areas are more apparent on the patient's MRI examination than on the CT. Direct comparison is made. The areas of edema and hemorrhage appear similar though they are isointense on the CT. 2. 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 There is cortical atrophy. Anthony Burns MD Upper Extremity Ultrasound 12/02/16 0000 Signed Impressions: Service Date/Time: Saturday, December 03, 2016 00:53 - CONCLUSION: 1. Occlusive DVT in the cephalic and basilic vein on the right. Alex Goode MD Head CT 12/01/16 0000 Signed Impressions: Service Date/Time: Thursday, December 01, 2016 13:14 - CONCLUSION: Evolving intracranial hemorrhagic foci as above, both intra-axial and extra-axial. Jesus Lee MD Modified Barium Swallow 11/30/16 0000 Signed Impressions: Service Date/Time: Wednesday, November 30, 2016 00:00 - CONCLUSION: Please refer to speech pathology report for full details. Lonnie Cook MD Transcranial Doppler Study Complete 11/17/16 0000 Signed Impressions: Service Date/Time: Thursday, November 17, 2016 10:03 - CONCLUSION: 1. Nondiagnostic examination due to poor transcranial windows. Konstantin Dash MD Abdomen X-Ray 11/12/16 0000 Signed Impressions: Service Date/Time: Saturday, November 12, 2016 08:23 - CONCLUSION: 1. Gastric tube in good position. 2. Probable right renal stones. Narayan Coulter MD Cervical Spine CT 11/09/161950 Signed Impressions: Service Date/Time: Wednesday, November 09, 2016 20:14 - CONCLUSION: Negative trauma CT. Cj Isidro MD Objective Remarks GENERAL: Pt encountered laying in bed, with sheet and blanket up to his neck. NAD. Minimal involvement in interview and exam. Daughter at bedside. SKIN: Warm and dry. HEAD: Normocephalic. EYES: No scleral icterus. No injection or drainage. NECK: Supple, trachea midline. No lymphadenopathy. CARDIOVASCULAR: Regular rate and rhythm without murmurs, gallops, or rubs. RESPIRATORY: Diminished breath sounds noted in the bases. No rhonchi wheezes noted. No accessory muscle use. GASTROINTESTINAL: Abdomen soft, non-tender, nondistended. Bowel sounds noted all quadrants. MUSCULOSKELETAL: No cyanosis, or edema. Pt evidenced weakness in all extremities. NEUROLOGICAL: Minimally cooperative. Followed some commands. Lethargic. Procedures None Medications and IVs Current Medications Medications (Trade) Dose Ordered Sig/Gregg Route Start Time Stop Time Status Last Admin (Proscar) 5 mg DAILY PO 11/10/16 09:00 01/17/17 10:00 (Flomax) 0.4 mg HS PO 11/10/16 21:00 01/16/17 21:15 (Detrol La) 2 mg DAILY PO 11/10/16 09:00 01/17/17 10:00 (Glucagon Inj) 1 mg UNSCH PRN OTHER 11/09/16 23:45 11/24/16 03:48 (Ativan Inj) 1 mg Q5M PRN IV 11/12/16 00:45 11/12/16 01:45 (Peridex 0.12% Liq) 15 ml BID@08,20 MT 11/12/16 08:00 01/17/17 08:00 (NS Flush) DAILY IVF 11/12/16 09:00 01/04/17 09:00 (NS Flush) UNSCH PRN IVF 11/12/16 08:15 (Prevacid Odt) 30 mg DAILY NG 11/12/16 09:00 01/17/17 10:00 (Colace Liq) 100 mg Q12HR PO 11/12/16 09:00 01/13/17 23:25 (NS Flush) 2 ml UNSCH PRN IV FLUSH 11/12/16 08:30 (NS Flush) 2 ml BID IV FLUSH 11/12/16 09:00 01/17/17 10:02 (Tears Naturale Opth Soln) 1 drop TID EACH EYE 11/12/16 09:00 01/17/17 13:00 (Zofran Inj) 4 mg Q6H PRN IV 11/12/16 08:30 11/15/16 05:45 (Albuterol Neb) 2.5 mg Q2HR NEB PRN INH 11/12/16 08:30 11/29/16 21:19 (Dulcolax Supp) 10 mg DAILY PRN RECTAL 11/12/16 08:30 (Tylenol 650 Mg/ 20 ml Liq) 650 mg Q6H PRN NG 11/12/16 08:45 12/20/16 02:14 (Miralax) 17 gm BID OG-TUBE 11/13/16 21:00 01/13/17 23:25 (Lactulose Liq) 30 ml DAILY PO 11/14/16 09:00 Future Hold 12/02/16 09:54 (Glycerin Adult Supp) 2 gm BID PRN RECTAL 11/13/16 15:00 (Apresoline Inj) 20 mg Q4H PRN IV PUSH 11/14/16 02:15 11/14/16 03:07 (Brethine Inj) 1 mg UNSCH PRN SQ 11/20/16 16:30 (D50w (Syr) Inj) 50 ml UNSCH PRN IV 11/25/16 09:30 11/25/16 09:46 (Megace Liq) 400 mg DAILY PO 11/26/16 09:00 01/17/17 10:01 (Keppra) 1,000 mg Q8HR PO 11/30/16 22:00 01/17/17 13:26 (Bactroban 2% Cream) 1 applic Q12HR TOPICAL 12/02/16 21:00 01/17/17 10:05 (Santyl Oint) 1 applic DAILY TOPICAL 12/04/16 12:00 01/14/17 09:00 (Levsin) 0.125 mg Q4H PRN PO 12/04/16 11:30 01/11/17 21:47 (Heparin Central Flush) 200 units DAILY IV FLUSH 12/05/16 12:00 01/14/17 09:06 (Dilantin) 100 mg TID PO 12/14/16 13:00 01/17/17 13:26 (NovoLIN R SUPPLEMENTAL SCALE) 1 ACHS SLIDING SCALE SQ 12/16/16 12:00 01/17/17 12:00 (Norvasc) 5 mg DAILY PO 12/17/16 12:00 01/17/17 09:59 (Santyl Oint) 1 applic DAILY TOPICAL 12/19/16 14:45 01/06/17 09:00 (Lasix) 40 mg DAILY PO 12/29/16 09:00 01/17/17 10:00 (Tylenol 650 Mg/ 20 ml Liq) 650 mg Q4H PRN PO 12/31/16 21:30 01/04/17 05:19 (Lopressor) 50 mg Q8HR PO 01/01/17 14:00 01/17/17 13:25 (Restoril) 7.5 mg HS PRN PO 01/05/17 14:45 01/06/17 20:19 (Levemir Inj) 10 units DAILY SQ 01/15/17 10:15 01/17/17 10:04 Urinary Catheter: Yes Assessment to: Continue Noriega insert reason: Obstruction/Retention Date of Insertion: Dec 17, 2016 Date of Insertion: Nov 12, 2016 Line: Central Venous Catheter Side: Right Location: Internal, Jugular A/P Problem List: (1) Subdural hematoma ICD Code: I62.00 - Nontraumatic subdural hemorrhage, unspecified Status: Acute (2) Diabetes ICD Code: E11.9 - Type 2 diabetes mellitus without complications Status: Chronic (3) Leukocytosis ICD Code: D72.829 - Elevated white blood cell count, unspecified Status: Acute (4) HTN (hypertension) ICD Code: I10 - Essential (primary) hypertension Status: Chronic (5) Dysphagia ICD Code: R13.10 - Dysphagia, unspecified (6) Urinary tract infection ICD Code: N39.0 - Urinary tract infection, site not specified Assessment and Plan 80 y/o with a history of HTN, DM, and BPH presented to the ED after a fall at home, with a LOC for 10-15 mins. Diabetes: Blood glucose this morning was 115. Range for past 24 hours blood glucose has been 115-214. He required 4 units of supplementa insulin at 1200 and 2 units at bedtime. Hypertension: remains controlled. Closed head injury Subdural hematoma Bilateral intracranial hemorrhaging - Managed by neurosurgery and no indication for surgery at this time - Neuro checks, seizure precautions - Continue with Keppra and Dilantin by mouth; monitor level - On and off drowsy. Awake and alert today. Metabolic encephalopathy - head CT 12/01/16 showed Bilateral hypodense subdural hematomas are seen in the occipital region and along the tentorium cerebelli on the right as well as small right frontal subdural hematoma unchanged. The left frontal parenchymal bleed is decreased in density with a small amount of edema identified. There is atrophy and moderate confluent hypodense white matter disease in the periventricular regions. The right frontal and left insular bleeds are much less conspicuous with a small amount of residual high density in the right frontal region with a small amount of surrounding edema. There is no midline shift or mass effect. Vascular calcifications are noted. No fractures. - CXR with improving aeration - Continue neurochecks - Ammonia level within normal. ABG without any changes. - Repeat brain MRI 12/13/16 showed 1. Examination demonstrates multiple small areas of intraparenchymal and extra ache she'll hemorrhage as described above he Sears are more apparent on the patient's MRI examination done on the CT. Direct comparison is made. The areas of edema and hemorrhage appears similar though they are isointense on the CT. 2. 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 There is cortical atrophy. - On and off drowsy. Awake and alert today Leukocytosis Anemia - Hematology following. Ordered other testing R/O other bone marrow abnormality. Follow results. - Blood cultures no growth in 5 days. Off antibiotics. 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 - Avoid unnecessary blood draws Respiratory insufficiency - Chest x-ray with improvement in aeration - Continue CPT - Schedule and DuoNeb when necessary and maintain oxygen saturation above 92% - Improving aeration with CXR - Off NC, tolerating RA. Occasional cough non productive. Good air entry. Atrial fibrillation Hypertension - Continue with Lopressor 25mg TID - better rate control and BP control - Oral anticoagulation contraindicated secondary to intracranial bleed - Monitor BP Trend, HR Decubitus ulcer, DTI sacral area - Continue Santyl - Wound care following. - Repositioning every 2 hour Benign prostatic hyperplasia - Continue with Flomax - Noriega care - Voiding trial when more awake and with increase activity Diabetes mellitus - hemoglobin A1c 6.0 - Levemir 10 units twice a day ISS. Monitor accucheck Occlusive DVT in cephalic vein right upper extremity - Hematology consultation appreciated however oral anticoagulation contraindicated - Avoid IV access RUE Dysphagia secondary to intracranial hemorrhage - Barium swallow study normal - Reassess by speech for swallowing evaluation. Recommends pure diet, nectar thickened consistency liquids. - Aspiration precaution Generalized weakness, prolonged hospitalization - Encourage family to do ROM exercises with patient while in bed. Needs to be aggressive with increase activity, OOB-chair, if patient has pain, to be addressed with pain medication -tylenol. - Discuss with family members that pain should not deter him to increase his activities or being OOB to chair. - Encourage activities in the morning so that patient can stay awake. Urinary tract infection, resolved - off antibiotics - Plan for voiding trial when more awake and active. Prophylaxis GI - lanosprazole DVT - SCD/pharmacological prophylaxis when okay with neurosurgery Discuss with patient, nursing, Dr. Gandhi Discharge Planning Discharge Planning Plan is for patient to leave out of the country to go to [facility]. Family has arranged for transport with a [employer]. Case management following. MDR indicated pt is to return to [facility] aboard medical flight that is being arranged by [employer]. Uncertain when pt is to be transported to his home country. Problem Qualifiers (1) HTN (hypertension): Qualified Codes: I10 - Essential (primary) hypertension Shay Solares Jr. Jan 17, 2017 14:04
[2017-01-17] MEDS: TAMSULOSIN HCL 0.4 MG CAP PO SCH (21:56)
[2017-01-18] VITALS (8 sets, daily range): BP systolic 113–169; BP diastolic 56–67; PULSE 80–98; RESP 16–20; TEMP 98.1–99.1; O2SAT 96–97
[2017-01-18] MEDS: levETIRAcetam 500 MG TAB PO SCH (05:56)
[2017-01-18] MEDS: METOPROLOL TARTRATE 50 MG TAB PO SCH ×3 (05:56→21:53)
[2017-01-18] MEDS: CHLORHEXIDINE 0.12% (ORAL KIT) 15 ML CUP MT SCH ×2 (08:00→20:00)
[2017-01-18] MEDS: INSULIN NovoLIN REGULAR SUPPLEMENTAL SCALE SQ SCH ×4 (08:00→21:00)
[2017-01-18] MEDS: COLLAGENASE OINT 30 GM TUBE TOPICAL SCH ×2 (09:00)
[2017-01-18] MEDS: ARTIFICIAL TEARS OPTH SOLN 15 ML BTL EACH EYE SCH ×3 (09:00→17:58)
[2017-01-18] MEDS: SODIUM CHLORIDE 0.9% FLUSH 10 ML FLUSH IVF SCH (09:00)
[2017-01-18] MEDS: POLYETHYLENE GLYCOL 17 GM PKG OG-TUBE SCH ×2 (09:00→21:50)
[2017-01-18] MEDS: DOCUSATE SODIUM 100 MG/10 ML UDC PO SCH ×2 (09:00→21:00)
[2017-01-18] MEDS: LANSOPRAZOLE SOLUTAB 30 MG TAB NG SCH (09:15)
[2017-01-18] MEDS: PHENYTOIN SODIUM 100 MG CAP PO SCH ×3 (09:16→17:58)
[2017-01-18] MEDS: FINASTERIDE 5 MG TAB PO SCH (09:16)
[2017-01-18] MEDS: TOLTERODINE TARTRATE 2 MG CAP LA PO SCH (09:16)
[2017-01-18] MEDS: amLODIPine BESYLATE 5 MG TAB PO SCH (09:16)
[2017-01-18] MEDS: INSULIN DETEMIR 100 UNITS/ML VIAL SQ SCH (09:16)
[2017-01-18] MEDS: FUROSEMIDE 40 MG TAB PO SCH (09:16)
[2017-01-18] MEDS: MUPIROCIN 2% CREAM 15 GM TOPICAL SCH ×2 (09:17→21:56)
[2017-01-18] MEDS: MEGESTROL ACETATE SUSP 400 MG/10 ML CUP PO SCH (09:17)
[2017-01-18] MEDS: SODIUM CHLORIDE 0.9% FLUSH 10 ML FLUSH IV FLUSH SCH ×2 (09:18→21:57)
--- NOTE | 2017-01-18 10:51 | HHI.NSPN ---
History Chief Complaint: Unable to obtain due to patient not being cooperative. Interval History Patient is awake and alert this morning. He does not speaking Slovak. Daughter is present and notes stable course. Exam Results Vital Signs Date Time Temp Pulse Resp B/P (MAP) Pulse Ox O2 Delivery O2 Flow Rate FiO2 01/18/17 08:00 98.5 80 16 116/58 (77) 96 Intake and Output 01/18/17 01/18/17 01/19/17 08:00 16:00 00:00 Intake Total 120 ml Output Total 750 ml Balance -630 ml Physical Examination Awake and alert. In fact speech output. Moves all 4 extremities spontaneously and appropriate to painful stimulation. Lab, Micro, Other Results Date/Time Source Procedure Growth Status 12/04/16 18:10 Blood Peripheral Aerobic Blood Culture - Final NO GROWTH IN 5 DAYS Complete 12/04/16 18:10 Blood Peripheral Anaerobic Blood Culture - Final NO GROWTH IN 5 DAYS Complete 11/17/16 08:50 Sputum Endotracheal Gram Stain - Final Complete 11/17/16 08:50 Sputum Endotracheal Sputum Culture - Final HEAVY GROWTH NORMAL RESPIRATORY ITZEL Complete 12/13/16 14:46 Urine Catheterized Urine Urine Culture - Final NO GROWTH IN 48 HOURS. Complete Medical Decision Making Impression and Plan Assessment: Status post closed head injury. Neurological examination stable. Plan: Patient awaiting transfer back to [facility]. Omer Aguilar MD Jan 18, 2017 10:51
[2017-01-18] MEDS: levETIRAcetam 500 MG/5 ML UDC PO SCH ×2 (13:47→23:14)
--- NOTE | 2017-01-18 13:55 | HHI.PR ---
Subjective Remarks Follow up visit SDH, UE DVT, HTN, DM2. Patient seen and examined today laying in bed with covers over his head. pt sleeping soundly and does not awaken even when eye lids are pried open. Pt's daughter at bedside and said her father "told me where he is and why he is in the hospital." No new pt concerns were raised by pt's daughter. Per RN (Juan A) pt is without acute issues noted or reported over night or since start of shift. Discussed with RN pt not reciving Santyl for decubitus ulcer. RN stated site is healed. Objective Vitals Vital Signs Date Time Temp Pulse Resp B/P (MAP) Pulse Ox O2 Delivery O2 Flow Rate FiO2 01/18/17 12:00 98.3 95 16 128/66 (86) 97 01/18/17 08:00 98.5 80 16 116/58 (77) 96 01/18/17 05:23 98.1 95 17 127/60 (82) 97 01/18/17 00:51 99.1 98 17 169/67 (101) 97 01/17/17 20:30 98.8 95 20 130/61 (84) 96 01/17/17 20:05 94 01/17/17 16:00 98.2 85 20 115/62 (79) 97 I/O 01/17/17 01/17/17 01/17/17 01/18/17 01/18/17 01/18/17 07:00 15:00 23:00 07:00 15:00 23:00 Intake Total 150 ml 960 ml 120 ml Output Total 400 ml 900 ml 250 ml 750 ml Balance -250 ml 60 ml -250 ml -630 ml Intake Oral 150 ml 960 ml 120 ml Output Urine Total 400 ml 900 ml 250 ml 750 ml # Voids 1 # Bowel Movements 1 1 1 1 Imaging Last Impressions Chest X-Ray 01/05/17 0000 Signed Impressions: Service Date/Time: Thursday, January 05, 2017 15:05 - CONCLUSION: 1. Stable chronic interstitial disease bilaterally. 2. Small bilateral pleural effusions. 3. Degenerative changes and scoliosis of the thoracic spine. Juan Manuel Michel MD Brain MRI 12/13/16 0000 Signed Impressions: Service Date/Time: Tuesday, December 13, 2016 12:20 - CONCLUSION: 1. The examination demonstrates multiple small areas of intraparenchymal and extra-axial hemorrhage as described above. These areas are more apparent on the patient's MRI examination than on the CT. Direct comparison is made. The areas of edema and hemorrhage appear similar though they are isointense on the CT. 2. 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 There is cortical atrophy. Anthony Burns MD Upper Extremity Ultrasound 12/02/16 0000 Signed Impressions: Service Date/Time: Saturday, December 03, 2016 00:53 - CONCLUSION: 1. Occlusive DVT in the cephalic and basilic vein on the right. Alex Goode MD Head CT 12/01/16 0000 Signed Impressions: Service Date/Time: Thursday, December 01, 2016 13:14 - CONCLUSION: Evolving intracranial hemorrhagic foci as above, both intra-axial and extra-axial. Jesus Lee MD Modified Barium Swallow 11/30/16 0000 Signed Impressions: Service Date/Time: Wednesday, November 30, 2016 00:00 - CONCLUSION: Please refer to speech pathology report for full details. Lonnie Cook MD Transcranial Doppler Study Complete 11/17/16 0000 Signed Impressions: Service Date/Time: Thursday, November 17, 2016 10:03 - CONCLUSION: 1. Nondiagnostic examination due to poor transcranial windows. Konstantin Dash MD Abdomen X-Ray 11/12/16 0000 Signed Impressions: Service Date/Time: Saturday, November 12, 2016 08:23 - CONCLUSION: 1. Gastric tube in good position. 2. Probable right renal stones. Narayan Coulter MD Cervical Spine CT 11/09/161950 Signed Impressions: Service Date/Time: Wednesday, November 09, 2016 20:14 - CONCLUSION: Negative trauma CT. Cj Isidro MD Objective Remarks GENERAL: Pt encountered laying in bed, with sheet and blanket over his head. Sleeping. NAD. Daughter at bedside. SKIN: Warm and dry. HEAD: Normocephalic. EYES: No scleral icterus. No injection or drainage. Eyes examined with examiner prying eye lids open. NECK: Supple, trachea midline. No lymphadenopathy. CARDIOVASCULAR: Regular rate and rhythm without murmurs, gallops, or rubs. RESPIRATORY: Diminished breath sounds noted in the bases. No rhonchi wheezes noted. No accessory muscle use. GASTROINTESTINAL: Abdomen soft, non-tender, nondistended. Bowel sounds noted all quadrants. MUSCULOSKELETAL: No cyanosis, or edema. Pt noted to spontaneously move upper extremities. SCD's noted on lower extremities. NEUROLOGICAL: Minimally cooperative. Followed no commands. Procedures None Medications and IVs Current Medications Medications (Trade) Dose Ordered Sig/Gregg Route Start Time Stop Time Status Last Admin (Proscar) 5 mg DAILY PO 11/10/16 09:00 01/18/17 09:16 (Flomax) 0.4 mg HS PO 11/10/16 21:00 01/17/17 21:56 (Detrol La) 2 mg DAILY PO 11/10/16 09:00 01/18/17 09:16 (Glucagon Inj) 1 mg UNSCH PRN OTHER 11/09/16 23:45 11/24/16 03:48 (Ativan Inj) 1 mg Q5M PRN IV 11/12/16 00:45 11/12/16 01:45 (Peridex 0.12% Liq) 15 ml BID@08,20 MT 11/12/16 08:00 01/17/17 22:01 (NS Flush) DAILY IVF 11/12/16 09:00 01/04/17 09:00 (NS Flush) UNSCH PRN IVF 11/12/16 08:15 (Prevacid Odt) 30 mg DAILY NG 11/12/16 09:00 01/18/17 09:15 (Colace Liq) 100 mg Q12HR PO 11/12/16 09:00 01/17/17 21:55 (NS Flush) 2 ml UNSCH PRN IV FLUSH 11/12/16 08:30 (NS Flush) 2 ml BID IV FLUSH 11/12/16 09:00 01/18/17 09:18 (Tears Naturale Opth Soln) 1 drop TID EACH EYE 11/12/16 09:00 01/18/17 12:38 (Zofran Inj) 4 mg Q6H PRN IV 11/12/16 08:30 11/15/16 05:45 (Albuterol Neb) 2.5 mg Q2HR NEB PRN INH 11/12/16 08:30 11/29/16 21:19 (Dulcolax Supp) 10 mg DAILY PRN RECTAL 11/12/16 08:30 (Tylenol 650 Mg/ 20 ml Liq) 650 mg Q6H PRN NG 11/12/16 08:45 12/20/16 02:14 (Miralax) 17 gm BID OG-TUBE 11/13/16 21:00 01/17/17 21:55 (Lactulose Liq) 30 ml DAILY PO 11/14/16 09:00 Future Hold 12/02/16 09:54 (Glycerin Adult Supp) 2 gm BID PRN RECTAL 11/13/16 15:00 (Apresoline Inj) 20 mg Q4H PRN IV PUSH 11/14/16 02:15 11/14/16 03:07 (Brethine Inj) 1 mg UNSCH PRN SQ 11/20/16 16:30 (D50w (Syr) Inj) 50 ml UNSCH PRN IV 11/25/16 09:30 11/25/16 09:46 (Megace Liq) 400 mg DAILY PO 11/26/16 09:00 01/18/17 09:17 (Bactroban 2% Cream) 1 applic Q12HR TOPICAL 12/02/16 21:00 01/18/17 09:17 (Santyl Oint) 1 applic DAILY TOPICAL 12/04/16 12:00 01/14/17 09:00 (Levsin) 0.125 mg Q4H PRN PO 12/04/16 11:30 01/11/17 21:47 (Heparin Central Flush) 200 units DAILY IV FLUSH 12/05/16 12:00 01/14/17 09:06 (Dilantin) 100 mg TID PO 12/14/16 13:00 01/18/17 12:38 (NovoLIN R SUPPLEMENTAL SCALE) 1 ACHS SLIDING SCALE SQ 12/16/16 12:00 01/18/17 12:00 (Norvasc) 5 mg DAILY PO 12/17/16 12:00 01/18/17 09:16 (Santyl Oint) 1 applic DAILY TOPICAL 12/19/16 14:45 01/06/17 09:00 (Lasix) 40 mg DAILY PO 12/29/16 09:00 01/18/17 09:16 (Tylenol 650 Mg/ 20 ml Liq) 650 mg Q4H PRN PO 12/31/16 21:30 01/04/17 05:19 (Lopressor) 50 mg Q8HR PO 01/01/17 14:00 01/18/17 05:56 (Restoril) 7.5 mg HS PRN PO 01/05/17 14:45 01/06/17 20:19 (Levemir Inj) 10 units DAILY SQ 01/15/17 10:15 01/18/17 09:16 (Keppra Liq) 1,000 mg Q8HR PO 01/18/17 14:00 Urinary Catheter: Yes Assessment to: Continue Noriega insert reason: Obstruction/Retention Date of Insertion: Dec 17, 2016 Date of Insertion: Nov 12, 2016 Line: Central Venous Catheter Side: Right Location: Internal, Jugular A/P Problem List: (1) Subdural hematoma ICD Code: I62.00 - Nontraumatic subdural hemorrhage, unspecified Status: Acute (2) Diabetes ICD Code: E11.9 - Type 2 diabetes mellitus without complications Status: Chronic (3) Leukocytosis ICD Code: D72.829 - Elevated white blood cell count, unspecified Status: Acute (4) HTN (hypertension) ICD Code: I10 - Essential (primary) hypertension Status: Chronic (5) Dysphagia ICD Code: R13.10 - Dysphagia, unspecified (6) Urinary tract infection ICD Code: N39.0 - Urinary tract infection, site not specified Assessment and Plan 80 y/o with a history of HTN, DM, and BPH presented to the ED after a fall at home, with a LOC for 10-15 mins. Diabetes: Blood glucose this morning was 121. Range for past 24 hours blood glucose has been 115-154. He required 2 units of supplemental insulin once in the past 24 hours. Hypertension: remains controlled. Decubitis ulcer: Per record, no Santyl has been applied since 01/05/17. Closed head injury Subdural hematoma Bilateral intracranial hemorrhaging - Managed by neurosurgery and no indication for surgery at this time - Neuro checks, seizure precautions - Continue with Keppra and Dilantin by mouth; monitor level - On and off drowsy. Awake and alert today. Metabolic encephalopathy - head CT 12/01/16 showed Bilateral hypodense subdural hematomas are seen in the occipital region and along the tentorium cerebelli on the right as well as small right frontal subdural hematoma unchanged. The left frontal parenchymal bleed is decreased in density with a small amount of edema identified. There is atrophy and moderate confluent hypodense white matter disease in the periventricular regions. The right frontal and left insular bleeds are much less conspicuous with a small amount of residual high density in the right frontal region with a small amount of surrounding edema. There is no midline shift or mass effect. Vascular calcifications are noted. No fractures. - CXR with improving aeration - Continue neurochecks - Ammonia level within normal. ABG without any changes. - Repeat brain MRI 12/13/16 showed 1. Examination demonstrates multiple small areas of intraparenchymal and extra ache she'll hemorrhage as described above he Sears are more apparent on the patient's MRI examination done on the CT. Direct comparison is made. The areas of edema and hemorrhage appears similar though they are isointense on the CT. 2. 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 There is cortical atrophy. - On and off drowsy. Awake and alert today Leukocytosis Anemia - Hematology following. Ordered other testing R/O other bone marrow abnormality. Follow results. - Blood cultures no growth in 5 days. Off antibiotics. 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 - Avoid unnecessary blood draws Respiratory insufficiency - Chest x-ray with improvement in aeration - Continue CPT - Schedule and DuoNeb when necessary and maintain oxygen saturation above 92% - Improving aeration with CXR - Off NC, tolerating RA. Occasional cough non productive. Good air entry. Atrial fibrillation Hypertension - Continue with Lopressor 25mg TID - better rate control and BP control - Oral anticoagulation contraindicated secondary to intracranial bleed - Monitor BP Trend, HR Decubitus ulcer, DTI sacral area - Continue Santyl - Wound care following. - Repositioning every 2 hour Benign prostatic hyperplasia - Continue with Flomax - Noriega care - Voiding trial when more awake and with increase activity Diabetes mellitus - hemoglobin A1c 6.0 - Levemir 10 units twice a day ISS. Monitor accucheck Occlusive DVT in cephalic vein right upper extremity - Hematology consultation appreciated however oral anticoagulation contraindicated - Avoid IV access RUE Dysphagia secondary to intracranial hemorrhage - Barium swallow study normal - Reassess by speech for swallowing evaluation. Recommends pure diet, nectar thickened consistency liquids. - Aspiration precaution Generalized weakness, prolonged hospitalization - Encourage family to do ROM exercises with patient while in bed. Needs to be aggressive with increase activity, OOB-chair, if patient has pain, to be addressed with pain medication -tylenol. - Discuss with family members that pain should not deter him to increase his activities or being OOB to chair. - Encourage activities in the morning so that patient can stay awake. Urinary tract infection, resolved - off antibiotics - Plan for voiding trial when more awake and active. Prophylaxis GI - lanosprazole DVT - SCD/pharmacological prophylaxis when okay with neurosurgery Discuss with patient, nursing, Dr. Gandhi Discharge Planning Discharge Planning Plan is for patient to leave out of the country to go to [facility]. Family has arranged for transport with a [employer]. Case management following. MDR indicated pt is to return to [facility] aboard medical flight that is being arranged by [employer]. Uncertain when pt is to be transported to his home country. Problem Qualifiers (1) HTN (hypertension): Qualified Codes: I10 - Essential (primary) hypertension Shay Solares Jr. Jan 18, 2017 13:55
[2017-01-18] MEDS: TAMSULOSIN HCL 0.4 MG CAP PO SCH (21:52)
[2017-01-19 00:14] VITALS: BP 123/62; PULSE 81; RESP 17; TEMP 99; O2SAT 96
[2017-01-19 05:12] VITALS: BP 145/76; PULSE 94; RESP 17; TEMP 98.9; O2SAT 96
[2017-01-19] MEDS: levETIRAcetam 500 MG/5 ML UDC PO SCH ×3 (06:01→21:55)
[2017-01-19] MEDS: METOPROLOL TARTRATE 50 MG TAB PO SCH ×3 (06:01→21:55)
[2017-01-19] MEDS: INSULIN NovoLIN REGULAR SUPPLEMENTAL SCALE SQ SCH ×4 (08:00→21:00)
[2017-01-19] MEDS: CHLORHEXIDINE 0.12% (ORAL KIT) 15 ML CUP MT SCH ×2 (08:00→20:00)
[2017-01-19 08:29] VITALS: BP 121/61; PULSE 85; RESP 20; TEMP 98.2; O2SAT 97
[2017-01-19] MEDS: TOLTERODINE TARTRATE 2 MG CAP LA PO SCH (09:00)
[2017-01-19] MEDS: COLLAGENASE OINT 30 GM TUBE TOPICAL SCH ×2 (09:00)
[2017-01-19] MEDS: SODIUM CHLORIDE 0.9% FLUSH 10 ML FLUSH IVF SCH (09:00)
[2017-01-19] MEDS: FINASTERIDE 5 MG TAB PO SCH (09:00)
[2017-01-19] MEDS: SODIUM CHLORIDE 0.9% FLUSH 10 ML FLUSH IV FLUSH SCH ×2 (09:00→21:56)
[2017-01-19] MEDS: FUROSEMIDE 40 MG TAB PO SCH (09:00)
[2017-01-19] MEDS: PHENYTOIN SODIUM 100 MG CAP PO SCH ×3 (09:00→18:00)
[2017-01-19] MEDS: DOCUSATE SODIUM 100 MG/10 ML UDC PO SCH ×2 (09:00→21:55)
[2017-01-19] MEDS: INSULIN DETEMIR 100 UNITS/ML VIAL SQ SCH (09:00)
[2017-01-19] MEDS: POLYETHYLENE GLYCOL 17 GM PKG OG-TUBE SCH ×2 (09:00→21:55)
[2017-01-19] MEDS: MEGESTROL ACETATE SUSP 400 MG/10 ML CUP PO SCH (09:01)
[2017-01-19] MEDS: LANSOPRAZOLE SOLUTAB 30 MG TAB NG SCH (09:01)
[2017-01-19] MEDS: amLODIPine BESYLATE 5 MG TAB PO SCH (09:01)
--- NOTE | 2017-01-19 09:40 | HHI.NSPN ---
(Brennon White) History Chief Complaint: Cold (Brennon White. GILBERTO) Interval History 12/07: Patient opens eyes to voice, smiles, questionable followed simple command left UE x one, not following commands other extremities. Not verbalizing. 12/13: Patient reported to be sleeping a little better at night. Still lethargic much of the day. According to family he is saying a few words and responds to questions, remains confused, following a few commands occasionally. 12/15: Patient extremely lethargic. No response to verbal stimulation but did withdraw upper extremities and open eyes to localised noxious stimulation. Slight moaning but no other response. 12/16: The patient is lethargic but less so today. He was noted to open his eyes and move both upper extremities spontaneously. He did respond to some commands weakly but did not verbalise. 12/19: This morning the patient is seen in rounds with Dr. Godfrey. The patient is awake and alert and did track with his eyes. 12/23: When seen this morning the patient's daughter is feeding him. He does spontaneously open his eyes and move the upper extremities. He does appear to track with the eyes. 12/25: The patient is awake this morning and moving the right upper extremity spontaneously. He is watching Nursing and his family as they move about in the room. The [id number] reports that the embassy is to call the hospital once everything is ready for the patient to be transferred back to [facility] or if they need any further information. She says her , the patient's son, spoke with the embassy yesterday. 12/29: The patient is asleep but awakens to verbal stimulation. He spontaneously moves both upper extremities and follows some commands on the right side. 12/30: This morning the patient is lethargic. He briefly opens his eyes but does not follow commands. His daughter/[id number]-sj-pjb reports that he was awake all night due to his coughing. 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 01/01: The patient is asleep when seen. He does awaken to voice and moves the upper extremities spontaneously. His daughter/[id number]-ii-rqp reports that he does say a few words and at times it seems he is searching for the word he wants but is unable to find it. 01/03: The patient is awake and alert when seen and readily interacts. He reaches his hand out to shake mine. He is verbalising although his voice is slightly gravely. He does speak some in Georgian. 01/04: This morning the patient is awake and alert when seen. He readily interacts. His voice is a little stronger. He speaks in Georgian and Lao. His daughter/krapauic-tk-gql states he is confused and doesn't remember seeing this practitioner yesterday. 01/05: When seen the patient is awake and alert. He readily interacts and speaks in a little Georgian with this practitioner but primarily in Lao. The daughter/rlomgedi-xg-mkr reports that the patient didn't sleep the last two nights due to coughing. 01/07: This afternoon the patient is awake and fairly alert. He is verbalising in Lao. He is moving the upper extremities spontaneously. 2: The patient when seen intially this morning with Dr Godfrey was awake and alert in bed and tracking between people. He did verbalise in Lao and moved the upper extremities spontaneously. His son stated that he did recognise his grandchildren and knew their names. He also said that his conversation is appropriate at times. This afternoon the patient is asleep when seen. 3: When seen this morning the patient is lethargic. He does open his eyes to voice but he does not verbalise. He spontaneously moves the upper extremities. 01/12: This morning the patient is seen in rounds with Dr. Godfrey. Nursing is cleaning the patient after having a bowel movement. 01/13: When seen this morning the patient's son is feeding him breakfast. He is awake and alert, and readily interacts. He does verbalise a few words in Lao in response to questions from his son. He states he is doing good when asked and had no headache or other complaints. After being seen he wants to shake hands with this practitioner. 118: The patient is awake and alert in bed when seen this afternoon. He purposefully moves the upper extremities and verbalises some in Lao. He does not follow commands and pulls the sheet up over his head. 01/15: Awake and alert today. Nursing staff reports no new problems 01/17: Patient is awake and alert this morning. He does not speaking layers. According to nursing was having no new complaints while daughter was available in the room. 01/18: Patient is awake and alert this morning. He does not speaking Georgian. Daughter is present and notes stable course. 01/19: This morning the patient is awake. He only speaks a word or two in Lao. He does move the upper extremities spontanously and purposefully. The son states the transport aircraft and crew will be leaving [place] [facility] on Thursday. He is uncertain as to when his father will be picked up as there are two patients being flown back. He did report that they are to be back in [place] [facility] by Thursday. (Brennon White) Exam Results 01/17/17 01/17/17 01/18/17 01/18/17 01/19/17 01/19/17 06:00 18:00 06:00 18:00 06:00 18:00 Intake Total 250 ml 960 ml 120 ml 480 ml 120 ml Output Total 600 ml 1150 ml 750 ml 725 ml 800 ml Balance -350 ml -190 ml -630 ml -245 ml -680 ml Intake Oral 250 ml 960 ml 120 ml 480 ml 120 ml Output Urine Total 600 ml 1150 ml 750 ml 725 ml 800 ml # Voids 1 # Bowel Movements 1 2 1 1 1 Vital Signs Date Time Temp Pulse Resp B/P (MAP) Pulse Ox O2 Delivery O2 Flow Rate FiO2 01/19/17 08:29 98.2 85 20 121/61 (81) 97 01/19/17 05:12 98.9 94 17 145/76 (99) 96 01/19/17 00:14 99.0 81 17 123/62 (82) 96 01/18/17 21:27 98.7 95 20 114/56 (75) 97 01/18/17 20:23 87 01/18/17 16:00 98.6 83 16 113/66 (82) 96 01/18/17 12:00 98.3 95 16 128/66 (86) 97 01/18/17 08:45 96 01/18/17 08:00 98.5 80 16 116/58 (77) 96 01/18/17 05:23 98.1 95 17 127/60 (82) 97 01/18/17 00:51 99.1 98 17 169/67 (101) 97 01/17/17 20:30 98.8 95 20 130/61 (84) 96 01/17/17 20:05 94 01/17/17 16:00 98.2 85 20 115/62 (79) 97 01/17/17 12:00 98.1 85 20 112/55 (74) 97 01/17/17 08:45 92 01/17/17 08:00 98.1 85 20 121/64 (83) 97 01/17/17 04:40 98.6 97 20 131/75 (93) 96 01/17/17 00:10 98.4 84 20 138/63 (88) 98 01/16/17 20:30 98.0 100 20 147/72 (97) 95 01/16/17 20:00 95 01/16/17 16:38 98.0 94 17 108/66 (80) 96 01/16/17 12:54 97.5 99 17 119/63 (81) 96 01/16/17 10:45 85 (Brennon White) Physical Examination GENERAL: Awake & alert, tracks with his eyes, minimal interaction, no evident distress. MUSCULOSKELETAL: Moves BUE spontaneously & purposefully. NEUROLOGICAL: Awake & alert. Speaks a couple words in Lao. Did follow a couple simple commands. Moving BUE purposefully, did squeeze with the right hand and move toes of both feet to command. (Brennon White) Medical Decision Making Impression and Plan Impression/plan: 1. Traumatic brain injury. Most recent CT scan stable with resolving contusions, stable mild to moderate subdural fluid collections without significant mass effect. Mental status fluctuating throughout the day but overall stable over the past week. 2. Jane UTI. Treated. 12/13/16 follow-up urine culture growth at 48 hours 3. Hypertension, atrial fibrillation. Remains on Lopressor. 3. Recent seizures. He remains on Keppra and Dilantin. 4. Sacral decubitus ulcer. Continuing decubitus precautions, wound care, Santyl 5. Leukocytosis. Hematology following-workup in progress. 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 6. Diabetes. Remains on insulin sliding scale. 7. Respiratory insufficiency. Improved. Stable on room air Patient remains neurologically stable. [place] leaving [facility] Thursday with planned return to [facility] by Thursday. Medical management per Hospitalist. No active issues for Neurosurgery. (Brennon White) Attending Statement The exam, history, and the medical decision-making described in the above note were completed with the assistance of the mid-level provider. I reviewed and agree with the findings presented. I attest that I had a [id number] encounter with the patient on the same day, and personally performed and documented my assessment and findings in the medical record. No neurologic changes Seizure prophylaxis Continue decubitus care No evidence of ongoing infection (Tony Godfrey MD) Brennon White Jan 19, 2017 09:40 Tony Godfrey MD Jan 21, 2017 19:58
--- NOTE | 2017-01-19 11:01 | HHI.PR ---
Subjective Remarks Follow up visit SDH, UE DVT, HTN, DM2. Pt encountered laying a bed, sleeping. No family at bedside. Per nursing, no new issues overnight or since start of shift. Objective Vitals Vital Signs Date Time Temp Pulse Resp B/P (MAP) Pulse Ox O2 Delivery O2 Flow Rate FiO2 01/19/17 08:29 98.2 85 20 121/61 (81) 97 01/19/17 05:12 98.9 94 17 145/76 (99) 96 01/19/17 00:14 99.0 81 17 123/62 (82) 96 01/18/17 21:27 98.7 95 20 114/56 (75) 97 01/18/17 20:23 87 01/18/17 16:00 98.6 83 16 113/66 (82) 96 01/18/17 12:00 98.3 95 16 128/66 (86) 97 I/O 01/18/17 01/18/17 01/18/17 01/19/17 01/19/17 01/19/17 07:00 15:00 23:00 07:00 15:00 23:00 Intake Total 120 ml 480 ml 120 ml 360 ml Output Total 750 ml 725 ml 800 ml Balance -630 ml -245 ml -680 ml 360 ml Intake Oral 120 ml 480 ml 120 ml 360 ml Output Urine Total 750 ml 725 ml 800 ml # Bowel Movements 1 1 1 1 Imaging Last Impressions Chest X-Ray 01/05/17 0000 Signed Impressions: Service Date/Time: Thursday, January 05, 2017 15:05 - CONCLUSION: 1. Stable chronic interstitial disease bilaterally. 2. Small bilateral pleural effusions. 3. Degenerative changes and scoliosis of the thoracic spine. Juan Manuel Michel MD Brain MRI 12/13/16 0000 Signed Impressions: Service Date/Time: Tuesday, December 13, 2016 12:20 - CONCLUSION: 1. The examination demonstrates multiple small areas of intraparenchymal and extra-axial hemorrhage as described above. These areas are more apparent on the patient's MRI examination than on the CT. Direct comparison is made. The areas of edema and hemorrhage appear similar though they are isointense on the CT. 2. 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 There is cortical atrophy. Anthony Burns MD Upper Extremity Ultrasound 12/02/16 0000 Signed Impressions: Service Date/Time: Saturday, December 03, 2016 00:53 - CONCLUSION: 1. Occlusive DVT in the cephalic and basilic vein on the right. Alex Goode MD Head CT 12/01/16 0000 Signed Impressions: Service Date/Time: Thursday, December 01, 2016 13:14 - CONCLUSION: Evolving intracranial hemorrhagic foci as above, both intra-axial and extra-axial. Jesus Lee MD Modified Barium Swallow 11/30/16 0000 Signed Impressions: Service Date/Time: Wednesday, November 30, 2016 00:00 - CONCLUSION: Please refer to speech pathology report for full details. Lonnie Cook MD Transcranial Doppler Study Complete 11/17/16 0000 Signed Impressions: Service Date/Time: Thursday, November 17, 2016 10:03 - CONCLUSION: 1. Nondiagnostic examination due to poor transcranial windows. Konstantin Dash MD Abdomen X-Ray 11/12/16 0000 Signed Impressions: Service Date/Time: Saturday, November 12, 2016 08:23 - CONCLUSION: 1. Gastric tube in good position. 2. Probable right renal stones. Narayan Coulter MD Cervical Spine CT 11/09/161950 Signed Impressions: Service Date/Time: Wednesday, November 09, 2016 20:14 - CONCLUSION: Negative trauma CT. Cj Isidro MD Objective Remarks GENERAL: Pt encountered laying in bed. Sleeping. NAD. No family members at bedside SKIN: Warm and dry. HEAD: Normocephalic. EYES: No scleral icterus. No injection or drainage. Eyes examined with examiner prying eye lids open. NECK: Supple, trachea midline. No lymphadenopathy. CARDIOVASCULAR: Regular rate and rhythm without murmurs, gallops, or rubs. RESPIRATORY: Diminished breath sounds noted in the bases. No rhonchi wheezes noted. No accessory muscle use. GASTROINTESTINAL: Abdomen soft, non-tender, nondistended. Bowel sounds noted all quadrants. MUSCULOSKELETAL: No cyanosis, or edema. Pt noted to spontaneously move upper extremities. SCD's noted on lower extremities. NEUROLOGICAL: Minimally cooperative. Followed no commands. Procedures None Medications and IVs Current Medications Medications (Trade) Dose Ordered Sig/Gregg Route Start Time Stop Time Status Last Admin (Proscar) 5 mg DAILY PO 11/10/16 09:00 01/19/17 09:00 (Flomax) 0.4 mg HS PO 11/10/16 21:00 01/18/17 21:52 (Detrol La) 2 mg DAILY PO 11/10/16 09:00 01/19/17 09:00 (Glucagon Inj) 1 mg UNSCH PRN OTHER 11/09/16 23:45 11/24/16 03:48 (Ativan Inj) 1 mg Q5M PRN IV 11/12/16 00:45 11/12/16 01:45 (Peridex 0.12% Liq) 15 ml BID@08,20 MT 11/12/16 08:00 01/17/17 22:01 (NS Flush) DAILY IVF 11/12/16 09:00 01/04/17 09:00 (NS Flush) UNSCH PRN IVF 11/12/16 08:15 (Prevacid Odt) 30 mg DAILY NG 11/12/16 09:00 01/19/17 09:01 (Colace Liq) 100 mg Q12HR PO 11/12/16 09:00 01/17/17 21:55 (NS Flush) 2 ml UNSCH PRN IV FLUSH 11/12/16 08:30 (NS Flush) 2 ml BID IV FLUSH 11/12/16 09:00 01/18/17 21:57 (Tears Naturale Opth Soln) 1 drop TID EACH EYE 11/12/16 09:00 01/18/17 17:58 (Zofran Inj) 4 mg Q6H PRN IV 11/12/16 08:30 11/15/16 05:45 (Albuterol Neb) 2.5 mg Q2HR NEB PRN INH 11/12/16 08:30 11/29/16 21:19 (Dulcolax Supp) 10 mg DAILY PRN RECTAL 11/12/16 08:30 (Tylenol 650 Mg/ 20 ml Liq) 650 mg Q6H PRN NG 11/12/16 08:45 12/20/16 02:14 (Miralax) 17 gm BID OG-TUBE 11/13/16 21:00 01/18/17 21:50 (Lactulose Liq) 30 ml DAILY PO 11/14/16 09:00 Future Hold 12/02/16 09:54 (Glycerin Adult Supp) 2 gm BID PRN RECTAL 11/13/16 15:00 (Apresoline Inj) 20 mg Q4H PRN IV PUSH 11/14/16 02:15 11/14/16 03:07 (Brethine Inj) 1 mg UNSCH PRN SQ 11/20/16 16:30 (D50w (Syr) Inj) 50 ml UNSCH PRN IV 11/25/16 09:30 11/25/16 09:46 (Megace Liq) 400 mg DAILY PO 11/26/16 09:00 01/19/17 09:01 (Bactroban 2% Cream) 1 applic Q12HR TOPICAL 12/02/16 21:00 01/18/17 21:56 (Santyl Oint) 1 applic DAILY TOPICAL 12/04/16 12:00 01/14/17 09:00 (Levsin) 0.125 mg Q4H PRN PO 12/04/16 11:30 01/11/17 21:47 (Dilantin) 100 mg TID PO 12/14/16 13:00 01/19/17 09:00 (NovoLIN R SUPPLEMENTAL SCALE) 1 ACHS SLIDING SCALE SQ 12/16/16 12:00 01/18/17 12:00 (Norvasc) 5 mg DAILY PO 12/17/16 12:00 01/19/17 09:01 (Santyl Oint) 1 applic DAILY TOPICAL 12/19/16 14:45 01/06/17 09:00 (Lasix) 40 mg DAILY PO 12/29/16 09:00 01/19/17 09:00 (Tylenol 650 Mg/ 20 ml Liq) 650 mg Q4H PRN PO 12/31/16 21:30 01/04/17 05:19 (Lopressor) 50 mg Q8HR PO 01/01/17 14:00 01/19/17 06:01 (Restoril) 7.5 mg HS PRN PO 01/05/17 14:45 01/06/17 20:19 (Levemir Inj) 10 units DAILY SQ 01/15/17 10:15 01/19/17 09:00 (Keppra Liq) 1,000 mg Q8HR PO 01/18/17 14:00 01/19/17 06:01 Urinary Catheter: Yes Assessment to: Continue Noriega insert reason: Prolonged Immobilization Date of Insertion: Dec 17, 2016 Date of Insertion: Nov 12, 2016 Line: Central Venous Catheter Side: Right Location: Internal, Jugular A/P Problem List: (1) Subdural hematoma ICD Code: I62.00 - Nontraumatic subdural hemorrhage, unspecified Status: Acute (2) Diabetes ICD Code: E11.9 - Type 2 diabetes mellitus without complications Status: Chronic (3) Leukocytosis ICD Code: D72.829 - Elevated white blood cell count, unspecified Status: Acute (4) HTN (hypertension) ICD Code: I10 - Essential (primary) hypertension Status: Chronic (5) Dysphagia ICD Code: R13.10 - Dysphagia, unspecified (6) Urinary tract infection ICD Code: N39.0 - Urinary tract infection, site not specified Assessment and Plan 80 y/o with a history of HTN, DM, and BPH presented to the ED after a fall at home, with a LOC for 10-15 mins. Diabetes: Blood glucose this morning was reported by nursing to be 104. Range for past 24 hours blood glucose has been 104-186. He required 2 units of supplemental insulin once (lunch yesterday) in the past 24 hours. Closed head injury: Seen by neurosurgery today for follow-up. No changes to regimen noted. Closed head injury Subdural hematoma Bilateral intracranial hemorrhaging - Managed by neurosurgery and no indication for surgery at this time - Neuro checks, seizure precautions - Continue with Keppra and Dilantin by mouth; monitor level - On and off drowsy. Awake and alert today. Metabolic encephalopathy - head CT 12/01/16 showed Bilateral hypodense subdural hematomas are seen in the occipital region and along the tentorium cerebelli on the right as well as small right frontal subdural hematoma unchanged. The left frontal parenchymal bleed is decreased in density with a small amount of edema identified. There is atrophy and moderate confluent hypodense white matter disease in the periventricular regions. The right frontal and left insular bleeds are much less conspicuous with a small amount of residual high density in the right frontal region with a small amount of surrounding edema. There is no midline shift or mass effect. Vascular calcifications are noted. No fractures. - CXR with improving aeration - Continue neurochecks - Ammonia level within normal. ABG without any changes. - Repeat brain MRI 12/13/16 showed 1. Examination demonstrates multiple small areas of intraparenchymal and extra ache she'll hemorrhage as described above he Sears are more apparent on the patient's MRI examination done on the CT. Direct comparison is made. The areas of edema and hemorrhage appears similar though they are isointense on the CT. 2. 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 There is cortical atrophy. - On and off drowsy. Awake and alert today Leukocytosis Anemia - Hematology following. Ordered other testing R/O other bone marrow abnormality. Follow results. - Blood cultures no growth in 5 days. Off antibiotics. 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 - Avoid unnecessary blood draws Respiratory insufficiency - Chest x-ray with improvement in aeration - Continue CPT - Schedule and DuoNeb when necessary and maintain oxygen saturation above 92% - Improving aeration with CXR - Off NC, tolerating RA. Occasional cough non productive. Good air entry. Atrial fibrillation Hypertension - Continue with Lopressor 25mg TID - better rate control and BP control - Oral anticoagulation contraindicated secondary to intracranial bleed - Monitor BP Trend, HR Decubitus ulcer, DTI sacral area - Continue Santyl - Wound care following. - Repositioning every 2 hour Benign prostatic hyperplasia - Continue with Flomax - Noriega care - Voiding trial when more awake and with increase activity Diabetes mellitus - hemoglobin A1c 6.0 - Levemir 10 units twice a day ISS. Monitor accucheck Occlusive DVT in cephalic vein right upper extremity - Hematology consultation appreciated however oral anticoagulation contraindicated - Avoid IV access RUE Dysphagia secondary to intracranial hemorrhage - Barium swallow study normal - Reassess by speech for swallowing evaluation. Recommends pure diet, nectar thickened consistency liquids. - Aspiration precaution Generalized weakness, prolonged hospitalization - Encourage family to do ROM exercises with patient while in bed. Needs to be aggressive with increase activity, OOB-chair, if patient has pain, to be addressed with pain medication -tylenol. - Discuss with family members that pain should not deter him to increase his activities or being OOB to chair. - Encourage activities in the morning so that patient can stay awake. Urinary tract infection, resolved - off antibiotics - Plan for voiding trial when more awake and active. Prophylaxis GI - lanosprazole DVT - SCD/pharmacological prophylaxis when okay with neurosurgery Discuss with patient, nursing, Dr. Gandhi Discharge Planning Discharge Planning Plan is for patient to leave out of the country to go to [facility]. Family has arranged for transport with a [employer]. Case management following. MDR indicated pt is to return to [facility] aboard medical flight that is being arranged by [facility]. Uncertain when pt is to be transported to his home country. Per neurosurgery note (who spoke with pt's son) plan is for pt to be returned to [facility] by Thursday. Problem Qualifiers (1) HTN (hypertension): Qualified Codes: I10 - Essential (primary) hypertension Shay Solares Jr. Jan 19, 2017 11:01
[2017-01-19 12:07] VITALS: BP 119/59; PULSE 84; RESP 20; TEMP 97.4; O2SAT 99
[2017-01-19] MEDS: ARTIFICIAL TEARS OPTH SOLN 15 ML BTL EACH EYE SCH ×3 (13:00→18:00)
[2017-01-19] MEDS: MUPIROCIN 2% CREAM 15 GM TOPICAL SCH ×2 (16:00→21:00)
[2017-01-19 16:56] VITALS: BP 131/68; PULSE 97; RESP 20; TEMP 97.8; O2SAT 98
[2017-01-19 20:40] VITALS: BP 127/53; PULSE 93; RESP 18; TEMP 98.3; O2SAT 95
[2017-01-19] MEDS: TAMSULOSIN HCL 0.4 MG CAP PO SCH (21:55)
[2017-01-20] VITALS (7 sets, daily range): BP systolic 112–130; BP diastolic 52–76; PULSE 86–98; RESP 18–20; TEMP 94.5–98.6; O2SAT 95–99
[2017-01-20] MEDS: METOPROLOL TARTRATE 50 MG TAB PO SCH ×3 (06:33→22:46)
[2017-01-20] MEDS: levETIRAcetam 500 MG/5 ML UDC PO SCH ×3 (06:33→22:46)
[2017-01-20] MEDS: CHLORHEXIDINE 0.12% (ORAL KIT) 15 ML CUP MT SCH ×2 (08:00→20:00)
[2017-01-20] MEDS: INSULIN NovoLIN REGULAR SUPPLEMENTAL SCALE SQ SCH ×4 (08:00→22:46)
[2017-01-20] MEDS: POLYETHYLENE GLYCOL 17 GM PKG OG-TUBE SCH ×2 (09:00→22:46)
[2017-01-20] MEDS: SODIUM CHLORIDE 0.9% FLUSH 10 ML FLUSH IV FLUSH SCH ×2 (09:00→22:45)
[2017-01-20] MEDS: ARTIFICIAL TEARS OPTH SOLN 15 ML BTL EACH EYE SCH ×3 (09:00→18:00)
[2017-01-20] MEDS: INSULIN DETEMIR 100 UNITS/ML VIAL SQ SCH (09:00)
[2017-01-20] MEDS: DOCUSATE SODIUM 100 MG/10 ML UDC PO SCH ×2 (09:00→22:46)
[2017-01-20] MEDS: COLLAGENASE OINT 30 GM TUBE TOPICAL SCH ×2 (09:00)
[2017-01-20] MEDS: MUPIROCIN 2% CREAM 15 GM TOPICAL SCH ×2 (09:00→22:47)
[2017-01-20] MEDS: SODIUM CHLORIDE 0.9% FLUSH 10 ML FLUSH IVF SCH (09:00)
[2017-01-20] MEDS: TOLTERODINE TARTRATE 2 MG CAP LA PO SCH (09:14)
[2017-01-20] MEDS: amLODIPine BESYLATE 5 MG TAB PO SCH (09:14)
[2017-01-20] MEDS: PHENYTOIN SODIUM 100 MG CAP PO SCH ×3 (09:14→17:30)
[2017-01-20] MEDS: FUROSEMIDE 40 MG TAB PO SCH (09:14)
[2017-01-20] MEDS: LANSOPRAZOLE SOLUTAB 30 MG TAB NG SCH (09:14)
[2017-01-20] MEDS: FINASTERIDE 5 MG TAB PO SCH (09:14)
[2017-01-20] MEDS: MEGESTROL ACETATE SUSP 400 MG/10 ML CUP PO SCH (09:15)
--- NOTE | 2017-01-20 09:40 | HHI.NSPN ---
([place] MACIAS) History Chief Complaint: Unable to obtain due to lethargy. (Brennon White Bob MACIAS) Interval History 12/07: Patient opens eyes to voice, smiles, questionable followed simple command left UE x one, not following commands other extremities. Not verbalizing. 12/13: Patient reported to be sleeping a little better at night. Still lethargic much of the day. According to family he is saying a few words and responds to questions, remains confused, following a few commands occasionally. 12/15: Patient extremely lethargic. No response to verbal stimulation but did withdraw upper extremities and open eyes to localised noxious stimulation. Slight moaning but no other response. 12/16: The patient is lethargic but less so today. He was noted to open his eyes and move both upper extremities spontaneously. He did respond to some commands weakly but did not verbalise. 12/19: This morning the patient is seen in rounds with Dr. Godfrey. The patient is awake and alert and did track with his eyes. 12/23: When seen this morning the patient's daughter is feeding him. He does spontaneously open his eyes and move the upper extremities. He does appear to track with the eyes. 12/25: The patient is awake this morning and moving the right upper extremity spontaneously. He is watching Nursing and his family as they move about in the room. The [id number] reports that the embassy is to call the hospital once everything is ready for the patient to be transferred back to [facility] or if they need any further information. She says her , the patient's son, spoke with the embassy yesterday. 12/29: The patient is asleep but awakens to verbal stimulation. He spontaneously moves both upper extremities and follows some commands on the right side. 12/30: This morning the patient is lethargic. He briefly opens his eyes but does not follow commands. His daughter/hpyhkohu-wr-rmo reports that he was awake all night due to his coughing. 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 01/01: The patient is asleep when seen. He does awaken to voice and moves the upper extremities spontaneously. His daughter/ungsvxig-jc-mmz reports that he does say a few words and at times it seems he is searching for the word he wants but is unable to find it. 01/03: The patient is awake and alert when seen and readily interacts. He reaches his hand out to shake mine. He is verbalising although his voice is slightly gravely. He does speak some in Lao. 01/04: This morning the patient is awake and alert when seen. He readily interacts. His voice is a little stronger. He speaks in Lao and Czech. His daughter/zrqhiklb-px-ceq states he is confused and doesn't remember seeing this practitioner yesterday. 01/05: When seen the patient is awake and alert. He readily interacts and speaks in a little Lao with this practitioner but primarily in Czech. The daughter/vuddexmf-hs-yxx reports that the patient didn't sleep the last two nights due to coughing. 01/07: This afternoon the patient is awake and fairly alert. He is verbalising in Czech. He is moving the upper extremities spontaneously. 2: The patient when seen intially this morning with Dr Godfrey was awake and alert in bed and tracking between people. He did verbalise in Czech and moved the upper extremities spontaneously. His son stated that he did recognise his grandchildren and knew their names. He also said that his conversation is appropriate at times. This afternoon the patient is asleep when seen. 3: When seen this morning the patient is lethargic. He does open his eyes to voice but he does not verbalise. He spontaneously moves the upper extremities. 01/12: This morning the patient is seen in rounds with Dr. Godfrey. Nursing is cleaning the patient after having a bowel movement. 01/13: When seen this morning the patient's son is feeding him breakfast. He is awake and alert, and readily interacts. He does verbalise a few words in Czech in response to questions from his son. He states he is doing good when asked and had no headache or other complaints. After being seen he wants to shake hands with this practitioner. 01/14: The patient is awake and alert in bed when seen this afternoon. He purposefully moves the upper extremities and verbalises some in Czech. He does not follow commands and pulls the sheet up over his head. 01/15: Awake and alert today. Nursing staff reports no new problems 01/17: Patient is awake and alert this morning. He does not speaking layers. According to nursing was having no new complaints while daughter was available in the room. 01/18: Patient is awake and alert this morning. He does not speaking Lao. Daughter is present and notes stable course. 01/19: This morning the patient is awake. He only speaks a word or two in Czech. He does move the upper extremities spontanously and purposefully. The son states the transport aircraft and crew will be leaving [place] on Thursday. He is uncertain as to when his father will be picked up as there are two patients being flown back. He did report that they are to be back in [place] by Thursday. 01/20: When seen this morning the patient is lethargic. He briefly opens his eyes to voice but does not respond any further. He is noted to move the feet spontaneously. (Brennon White) System Review Comments Unable to obtain due to lethargy. (Brennon White) Exam Results 01/18/17 01/18/17 01/19/17 01/19/17 01/20/17 01/20/17 06:00 18:00 06:00 18:00 06:00 18:00 Intake Total 120 ml 480 ml 120 ml 1080 ml 240 ml Output Total 750 ml 725 ml 800 ml 1550 ml 500 ml 250 ml Balance -630 ml -245 ml -680 ml -470 ml -500 ml -10 ml Intake Oral 120 ml 480 ml 120 ml 1080 ml 240 ml Output Urine Total 750 ml 725 ml 800 ml 1550 ml 500 ml 250 ml Bladder Scan Volume Amount 130 ml 130 ml # Bowel Movements 1 1 1 2 3 1 Vital Signs Date Time Temp Pulse Resp B/P (MAP) Pulse Ox O2 Delivery O2 Flow Rate FiO2 01/20/17 05:19 94.5 98 18 130/52 (78) 95 01/20/17 04:43 88 01/20/17 00:39 97.5 94 18 122/76 (91) 98 01/19/17 20:40 98.3 93 18 127/53 (77) 95 01/19/17 16:56 97.8 97 20 131/68 (89) 98 01/19/17 12:07 97.4 84 20 119/59 (79) 99 01/19/17 08:29 98.2 85 20 121/61 (81) 97 01/19/17 05:12 98.9 94 17 145/76 (99) 96 01/19/17 00:14 99.0 81 17 123/62 (82) 96 01/18/17 21:27 98.7 95 20 114/56 (75) 97 01/18/17 20:23 87 01/18/17 16:00 98.6 83 16 113/66 (82) 96 01/18/17 12:00 98.3 95 16 128/66 (86) 97 01/18/17 08:45 96 01/18/17 08:00 98.5 80 16 116/58 (77) 96 01/18/17 05:23 98.1 95 17 127/60 (82) 97 01/18/17 00:51 99.1 98 17 169/67 (101) 97 01/17/17 20:30 98.8 95 20 130/61 (84) 96 01/17/17 20:05 94 01/17/17 16:00 98.2 85 20 115/62 (79) 97 01/17/17 12:00 98.1 85 20 112/55 (74) 97 (Brennon White) Physical Examination GENERAL: Patient lethargic, minimal eye opening to voice otherwise no interaction, no evident distress. MUSCULOSKELETAL: Moves both feet spontaneously but no other movement. NEUROLOGICAL: Lethargic, minimal eye opening briefly to voice. No verbalisation. Did not follow any simple commands. Moves both feet spontaneously. (Brennon White) Medical Decision Making Impression and Plan Impression/plan: 1. Traumatic brain injury. Most recent CT scan stable with resolving contusions, stable mild to moderate subdural fluid collections without significant mass effect. Mental status fluctuating throughout the day but overall stable over the past week. 2. Jane UTI. Treated. 12/13/16 follow-up urine culture growth at 48 hours 3. Hypertension, atrial fibrillation. Remains on Lopressor. 3. Recent seizures. He remains on Keppra and Dilantin. 4. Sacral decubitus ulcer. Continuing decubitus precautions, wound care, Santyl 5. Leukocytosis. Hematology following-workup in progress. 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 6. Diabetes. Remains on insulin sliding scale. 7. Respiratory insufficiency. Improved. Stable on room air Patient lethargic. [place] leaving [facility] Thursday with planned return to [facility] by Thursday. Medical management per Hospitalist. No active issues for Neurosurgery. (Brennon White) Attending Statement The exam, history, and the medical decision-making described in the above note were completed with the assistance of the mid-level provider. I reviewed and agree with the findings presented. I attest that I had a [id number] encounter with the patient on the same day, and personally performed and documented my assessment and findings in the medical record. Remains relatively alert. Tolerating diet well. Vital signs stable. No new neurosurgical problems. Stable for transfer from neurosurgical standpoint (Tony Godfrey MD) Brennon White Jan 20, 2017 09:40 Tony Godfrey MD Jan 21, 2017 19:59
--- NOTE | 2017-01-20 13:23 | HHI.PR ---
Subjective Remarks Follow up visit SDH, UE DVT, HTN, DM2. Patient seen and examined today sitting in the recliner chair. Daughter and Son also with patient. Son and daughter states patient is possibly leaving Thursday. Daughter and mother are going to [facility] . Son is going to accompany father on his plane trip to [facility]. No acute issues overnight. Patient lethargic on and off. Eyes opening to name call. Objective Vitals Vital Signs Date Time Temp Pulse Resp B/P (MAP) Pulse Ox O2 Delivery O2 Flow Rate FiO2 01/20/17 12:50 97.8 87 18 126/66 (86) 96 01/20/17 08:00 98.1 87 18 115/63 (80) 96 01/20/17 05:19 94.5 98 18 130/52 (78) 95 01/20/17 04:43 88 01/20/17 00:39 97.5 94 18 122/76 (91) 98 01/19/17 20:40 98.3 93 18 127/53 (77) 95 01/19/17 16:56 97.8 97 20 131/68 (89) 98 I/O 01/19/17 01/19/17 01/19/17 01/20/17 01/20/17 01/20/17 07:00 15:00 23:00 07:00 15:00 23:00 Intake Total 120 ml 1080 ml 240 ml Output Total 800 ml 1550 ml 750 ml Balance -680 ml -470 ml -510 ml Intake Oral 120 ml 1080 ml 240 ml Output Urine Total 800 ml 1550 ml 750 ml Bladder Scan Volume Amount 130 ml 130 ml # Bowel Movements 1 2 1 3 Imaging Last Impressions Chest X-Ray 01/05/17 0000 Signed Impressions: Service Date/Time: Thursday, January 05, 2017 15:05 - CONCLUSION: 1. Stable chronic interstitial disease bilaterally. 2. Small bilateral pleural effusions. 3. Degenerative changes and scoliosis of the thoracic spine. Juan Manuel Michel MD Brain MRI 12/13/16 0000 Signed Impressions: Service Date/Time: Tuesday, December 13, 2016 12:20 - CONCLUSION: 1. The examination demonstrates multiple small areas of intraparenchymal and extra-axial hemorrhage as described above. These areas are more apparent on the patient's MRI examination than on the CT. Direct comparison is made. The areas of edema and hemorrhage appear similar though they are isointense on the CT. 2. 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 There is cortical atrophy. Anthony Burns MD Upper Extremity Ultrasound 12/02/16 0000 Signed Impressions: Service Date/Time: Saturday, December 03, 2016 00:53 - CONCLUSION: 1. Occlusive DVT in the cephalic and basilic vein on the right. Alex Goode MD Head CT 12/01/16 0000 Signed Impressions: Service Date/Time: Thursday, December 01, 2016 13:14 - CONCLUSION: Evolving intracranial hemorrhagic foci as above, both intra-axial and extra-axial. Jesus Lee MD Modified Barium Swallow 11/30/16 0000 Signed Impressions: Service Date/Time: Wednesday, November 30, 2016 00:00 - CONCLUSION: Please refer to speech pathology report for full details. Lonnie Cook MD Transcranial Doppler Study Complete 11/17/16 0000 Signed Impressions: Service Date/Time: Thursday, November 17, 2016 10:03 - CONCLUSION: 1. Nondiagnostic examination due to poor transcranial windows. Konstantin Dash MD Abdomen X-Ray 11/12/16 0000 Signed Impressions: Service Date/Time: Saturday, November 12, 2016 08:23 - CONCLUSION: 1. Gastric tube in good position. 2. Probable right renal stones. Narayan Coulter MD Cervical Spine CT 11/09/161950 Signed Impressions: Service Date/Time: Wednesday, November 09, 2016 20:14 - CONCLUSION: Negative trauma CT. Cj Isidro MD Objective Remarks GENERAL: This is a thin-appearing, well-developed patient, in no apparent distress. SKIN: Warm and dry. HEENT: Nose without bleeding. Airway patent. NECK: Trachea midline. Supple. CARDIOVASCULAR: Heart rate irregular, rate wnl without murmurs, gallops, or rubs. RESPIRATORY: Diminished bases. No wheezes, rales, or rhonchi. GASTROINTESTINAL: Abdomen soft, non-tender, nondistended. Bowel Sounds normoactive x4. Noriega draining urine yellow. MUSCULOSKELETAL: Extremities without clubbing, cyanosis, bilateral lower extremity trace edema. NEUROLOGICAL: Drowsy. Moves all extremities weakly. Procedures None Date of Insertion: Dec 17, 2016 Date of Insertion: Nov 12, 2016 Line: Central Venous Catheter Side: Right Location: Internal, Jugular A/P Problem List: (1) Subdural hematoma ICD Code: I62.00 - Nontraumatic subdural hemorrhage, unspecified Status: Acute (2) Diabetes ICD Code: E11.9 - Type 2 diabetes mellitus without complications Status: Chronic (3) Leukocytosis ICD Code: D72.829 - Elevated white blood cell count, unspecified Status: Acute (4) HTN (hypertension) ICD Code: I10 - Essential (primary) hypertension Status: Chronic (5) Dysphagia ICD Code: R13.10 - Dysphagia, unspecified (6) Urinary tract infection ICD Code: N39.0 - Urinary tract infection, site not specified Assessment and Plan 80 y/o with a history of HTN, DM, and BPH presented to the ED after a fall at home, with a LOC for 10-15 mins. Closed head injury Subdural hematoma Bilateral intracranial hemorrhaging - Managed by neurosurgery and no indication for surgery at this time - Neuro checks, seizure precautions - Continue with Keppra and Dilantin by mouth; monitor level - On and off drowsy. Metabolic encephalopathy - head CT 12/01/16 showed Bilateral hypodense subdural hematomas are seen in the occipital region and along the tentorium cerebelli on the right as well as small right frontal subdural hematoma unchanged. The left frontal parenchymal bleed is decreased in density with a small amount of edema identified. There is atrophy and moderate confluent hypodense white matter disease in the periventricular regions. The right frontal and left insular bleeds are much less conspicuous with a small amount of residual high density in the right frontal region with a small amount of surrounding edema. There is no midline shift or mass effect. Vascular calcifications are noted. No fractures. - CXR with improving aeration - Continue neurochecks - Ammonia level within normal. ABG without any changes. - Repeat brain MRI 12/13/16 showed 1. Examination demonstrates multiple small areas of intraparenchymal and extra ache she'll hemorrhage as described above he Sears are more apparent on the patient's MRI examination done on the CT. Direct comparison is made. The areas of edema and hemorrhage appears similar though they are isointense on the CT. 2. 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 There is cortical atrophy. - On and off drowsy. Leukocytosis Anemia - Hematology following. Ordered other testing R/O other bone marrow abnormality. Follow results. - Blood cultures no growth in 5 days. Off antibiotics. 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 - Avoid unnecessary blood draws Respiratory insufficiency - Chest x-ray with improvement in aeration - Continue CPT - Schedule and DuoNeb when necessary and maintain oxygen saturation above 92% - Improving aeration with CXR - Off NC, tolerating RA. Occasional cough non productive. Good air entry. Atrial fibrillation Hypertension - Continue with Lopressor 25mg TID - better rate control and BP control - Oral anticoagulation contraindicated secondary to intracranial bleed - Monitor BP Trend, HR Decubitus ulcer, DTI sacral area - Continue Santyl - Wound care following. 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 Noriega reinserted. Diabetes mellitus - hemoglobin A1c 6.0 - Levemir 10 units twice a day ISS. Monitor accucheck Occlusive DVT in cephalic vein right upper extremity - Hematology consultation appreciated however oral anticoagulation contraindicated - Avoid IV access RUE Dysphagia secondary to intracranial hemorrhage - Barium swallow study normal - Reassessed by speech for swallowing evaluation. Recommends pure diet, nectar thickened consistency liquids. - Aspiration precaution Generalized weakness, prolonged hospitalization - Encourage family to do ROM exercises with patient while in bed. Needs to be aggressive with increase activity, OOB-chair, if patient has pain, to be addressed with pain medication -tylenol. - Discuss with family members that pain should not deter him to increase his activities or being OOB to chair. - Encourage activities in the morning so that patient can stay awake. Urinary tract infection, resolved - off antibiotics - Plan for voiding trial when more awake and active. Prophylaxis GI - Lanosprazole DVT - SCD/pharmacological prophylaxis when okay with neurosurgery Discuss with patient, nursing, Dr. Barnett Discharge Planning Plan is for patient to leave out of the country to go to [facility]. Case management following. Plan for DC Thursday with medical flight transport to [facility]. Problem Qualifiers (1) HTN (hypertension): Qualified Codes: I10 - Essential (primary) hypertension Veronica Coley Jan 20, 2017 13:23
[2017-01-20] MEDS: TAMSULOSIN HCL 0.4 MG CAP PO SCH (22:46)
[2017-01-21] VITALS (8 sets, daily range): BP systolic 111–133; BP diastolic 59–84; PULSE 70–98; RESP 15–20; TEMP 97.4–98.5; O2SAT 92–98
[2017-01-21] MEDS: METOPROLOL TARTRATE 50 MG TAB PO SCH ×3 (06:57→21:22)
[2017-01-21] MEDS: levETIRAcetam 500 MG/5 ML UDC PO SCH ×3 (06:57→21:22)
[2017-01-21] MEDS: INSULIN NovoLIN REGULAR SUPPLEMENTAL SCALE SQ SCH ×4 (08:15→21:00)
[2017-01-21] MEDS: COLLAGENASE OINT 30 GM TUBE TOPICAL SCH ×2 (09:00)
[2017-01-21] MEDS: MUPIROCIN 2% CREAM 15 GM TOPICAL SCH ×2 (09:00→21:00)
[2017-01-21] MEDS: FINASTERIDE 5 MG TAB PO SCH (09:36)
[2017-01-21] MEDS: amLODIPine BESYLATE 5 MG TAB PO SCH (09:36)
[2017-01-21] MEDS: LANSOPRAZOLE SOLUTAB 30 MG TAB NG SCH (09:36)
[2017-01-21] MEDS: FUROSEMIDE 40 MG TAB PO SCH (09:36)
[2017-01-21] MEDS: PHENYTOIN SODIUM 100 MG CAP PO SCH ×3 (09:36→17:56)
[2017-01-21] MEDS: POLYETHYLENE GLYCOL 17 GM PKG OG-TUBE SCH ×2 (09:36→21:21)
[2017-01-21] MEDS: DOCUSATE SODIUM 100 MG/10 ML UDC PO SCH ×2 (09:36→21:21)
[2017-01-21] MEDS: TOLTERODINE TARTRATE 2 MG CAP LA PO SCH (09:36)
[2017-01-21] MEDS: MEGESTROL ACETATE SUSP 400 MG/10 ML CUP PO SCH (09:36)
[2017-01-21] MEDS: SODIUM CHLORIDE 0.9% FLUSH 10 ML FLUSH IV FLUSH SCH ×2 (09:37→21:00)
[2017-01-21] MEDS: INSULIN DETEMIR 100 UNITS/ML VIAL SQ SCH (09:37)
[2017-01-21] MEDS: SODIUM CHLORIDE 0.9% FLUSH 10 ML FLUSH IVF SCH (09:37)
[2017-01-21] MEDS: CHLORHEXIDINE 0.12% (ORAL KIT) 15 ML CUP MT SCH ×2 (09:42→20:00)
[2017-01-21] MEDS: ARTIFICIAL TEARS OPTH SOLN 15 ML BTL EACH EYE SCH ×3 (09:42→17:56)
--- NOTE | 2017-01-21 13:42 | HHI.PR ---
Subjective Remarks Follow up visit SDH, UE DVT, HTN, DM2. Patient seen and examined today laying in bed. and daughter at the bedside. Patient drowsy. Eyes opening to name call. No acute issues overnight. Objective Vitals Vital Signs Date Time Temp Pulse Resp B/P (MAP) Pulse Ox O2 Delivery O2 Flow Rate FiO2 01/21/17 10:44 95 01/21/17 08:00 98.1 91 15 111/59 (76) 92 01/21/17 04:00 97.9 98 18 118/63 (81) 97 01/21/17 03:48 86 01/21/17 01:00 97.4 70 20 124/84 (97) 98 01/20/17 20:00 98.5 97 20 122/72 (89) 97 01/20/17 16:14 98.6 86 18 112/74 (87) 99 I/O 01/20/17 01/20/17 01/20/17 01/21/17 01/21/17 01/21/17 07:00 15:00 23:00 07:00 15:00 23:00 Intake Total 240 ml 480 ml 240 ml Output Total 750 ml 750 ml 950 ml Balance -510 ml -270 ml 240 ml -950 ml Intake Oral 240 ml 480 ml 240 ml Output Urine Total 750 ml 750 ml 950 ml Bladder Scan Volume Amount 130 ml 130 ml # Bowel Movements 3 2 3 Imaging Last Impressions Chest X-Ray 01/05/17 0000 Signed Impressions: Service Date/Time: Thursday, January 05, 2017 15:05 - CONCLUSION: 1. Stable chronic interstitial disease bilaterally. 2. Small bilateral pleural effusions. 3. Degenerative changes and scoliosis of the thoracic spine. Juan Manuel Michel MD Brain MRI 12/13/16 0000 Signed Impressions: Service Date/Time: Tuesday, December 13, 2016 12:20 - CONCLUSION: 1. The examination demonstrates multiple small areas of intraparenchymal and extra-axial hemorrhage as described above. These areas are more apparent on the patient's MRI examination than on the CT. Direct comparison is made. The areas of edema and hemorrhage appear similar though they are isointense on the CT. 2. 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 There is cortical atrophy. Anthony Burns MD Upper Extremity Ultrasound 12/02/16 0000 Signed Impressions: Service Date/Time: Saturday, December 03, 2016 00:53 - CONCLUSION: 1. Occlusive DVT in the cephalic and basilic vein on the right. Alex Goode MD Head CT 12/01/16 0000 Signed Impressions: Service Date/Time: Thursday, December 01, 2016 13:14 - CONCLUSION: Evolving intracranial hemorrhagic foci as above, both intra-axial and extra-axial. Jesus Lee MD Modified Barium Swallow 11/30/16 Signed Impressions: Service Date/Time: Wednesday, November 30, 2016 00:00 - CONCLUSION: Please refer to speech pathology report for full details. Lonnie Cook MD Transcranial Doppler Study Complete 11/17/16 Signed Impressions: Service Date/Time: Thursday, November 17, 2016 10:03 - CONCLUSION: 1. Nondiagnostic examination due to poor transcranial windows. Konstantin Dash MD Abdomen X-Ray 11/12/16 Signed Impressions: Service Date/Time: Saturday, November 12, 2016 08:23 - CONCLUSION: 1. Gastric tube in good position. 2. Probable right renal stones. Narayan Coulter MD Cervical Spine CT 11/09/161950 Signed Impressions: Service Date/Time: Wednesday, November 09, 2016 20:14 - CONCLUSION: Negative trauma CT. Cj Isidro MD Objective Remarks GENERAL: This is a thin-appearing, well-developed patient, in no apparent distress. SKIN: Warm and dry. HEENT: Nose without bleeding. Airway patent. NECK: Trachea midline. Supple. CARDIOVASCULAR: Heart rate irregular, rate wnl without murmurs, gallops, or rubs. RESPIRATORY: Diminished bases. No wheezes, rales, or rhonchi. GASTROINTESTINAL: Abdomen soft, non-tender, nondistended. Bowel Sounds normoactive x4. Noriega draining urine yellow. MUSCULOSKELETAL: Extremities without clubbing, cyanosis, bilateral lower extremity trace edema. NEUROLOGICAL: Drowsy. Moves all extremities weakly. Procedures None Date of Insertion: Dec 17, 2016 Date of Insertion: Nov 12, 2016 Line: Central Venous Catheter Side: Right Location: Internal, Jugular A/P Problem List: (1) Subdural hematoma ICD Code: I62.00 - Nontraumatic subdural hemorrhage, unspecified Status: Acute (2) Diabetes ICD Code: E11.9 - Type 2 diabetes mellitus without complications Status: Chronic (3) Leukocytosis ICD Code: D72.829 - Elevated white blood cell count, unspecified Status: Acute (4) HTN (hypertension) ICD Code: I10 - Essential (primary) hypertension Status: Chronic (5) Dysphagia ICD Code: R13.10 - Dysphagia, unspecified (6) Urinary tract infection ICD Code: N39.0 - Urinary tract infection, site not specified Assessment and Plan 80 y/o with a history of HTN, DM, and BPH presented to the ED after a fall at home, with a LOC for 10-15 mins. Closed head injury Subdural hematoma Bilateral intracranial hemorrhaging - Managed by neurosurgery and no indication for surgery at this time - Neuro checks, seizure precautions - Continue with Keppra and Dilantin by mouth; monitor level - On and off drowsy. Metabolic encephalopathy - head CT 12/01/16 showed Bilateral hypodense subdural hematomas are seen in the occipital region and along the tentorium cerebelli on the right as well as small right frontal subdural hematoma unchanged. The left frontal parenchymal bleed is decreased in density with a small amount of edema identified. There is atrophy and moderate confluent hypodense white matter disease in the periventricular regions. The right frontal and left insular bleeds are much less conspicuous with a small amount of residual high density in the right frontal region with a small amount of surrounding edema. There is no midline shift or mass effect. Vascular calcifications are noted. No fractures. - CXR with improving aeration - Continue neurochecks - Ammonia level within normal. ABG without any changes. - Repeat brain MRI 12/13/16 showed 1. Examination demonstrates multiple small areas of intraparenchymal and extra ache she'll hemorrhage as described above he Sears are more apparent on the patient's MRI examination done on the CT. Direct comparison is made. The areas of edema and hemorrhage appears similar though they are isointense on the CT. 2. 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 There is cortical atrophy. - On and off drowsy. Leukocytosis Anemia - Hematology following. Ordered other testing R/O other bone marrow abnormality. Follow results. - Blood cultures no growth in 5 days. Off antibiotics. 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 - Avoid unnecessary blood draws Respiratory insufficiency - Chest x-ray with improvement in aeration - Continue CPT - Schedule and DuoNeb when necessary and maintain oxygen saturation above 92% - Improving aeration with CXR - Off NC, tolerating RA. Occasional cough non productive. Good air entry. Atrial fibrillation Hypertension - Continue with Lopressor 25mg TID - better rate control and BP control - Oral anticoagulation contraindicated secondary to intracranial bleed - Monitor BP Trend, HR Decubitus ulcer, DTI sacral area - Continue Santyl - Wound care following. 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 Noriega reinserted. Diabetes mellitus - hemoglobin A1c 6.0 - Levemir 10 units twice a day ISS. Monitor accucheck Occlusive DVT in cephalic vein right upper extremity - Hematology consultation appreciated however oral anticoagulation contraindicated - Avoid IV access RUE Dysphagia secondary to intracranial hemorrhage - Barium swallow study normal - Reassessed by speech for swallowing evaluation. Recommends pure diet, nectar thickened consistency liquids. - Aspiration precaution Generalized weakness, prolonged hospitalization - Encourage family to do ROM exercises with patient while in bed. Needs to be aggressive with increase activity, OOB-chair, if patient has pain, to be addressed with pain medication -tylenol. - Discuss with family members that pain should not deter him to increase his activities or being OOB to chair. - Encourage activities in the morning so that patient can stay awake. Urinary tract infection, resolved - off antibiotics - Plan for voiding trial when more awake and active. Prophylaxis GI - Lanosprazole DVT - SCD/pharmacological prophylaxis when okay with neurosurgery Discuss with patient, nursing, Dr. Barnett Discharge Planning Plan is for patient to leave out of the country to go to [facility]. Case management following. Plan for DC Thursday with medical flight transport to [facility]. Problem Qualifiers (1) HTN (hypertension): Qualified Codes: I10 - Essential (primary) hypertension Veronica Coley Jan 21, 2017 13:42
--- NOTE | 2017-01-21 16:39 | HHI.NSPN ---
(Brennon WhitePrateek MACIAS) History Interval History 12/07: Patient opens eyes to voice, smiles, questionable followed simple command left UE x one, not following commands other extremities. Not verbalizing. 12/13: Patient reported to be sleeping a little better at night. Still lethargic much of the day. According to family he is saying a few words and responds to questions, remains confused, following a few commands occasionally. 12/15: Patient extremely lethargic. No response to verbal stimulation but did withdraw upper extremities and open eyes to localised noxious stimulation. Slight moaning but no other response. 12/16: The patient is lethargic but less so today. He was noted to open his eyes and move both upper extremities spontaneously. He did respond to some commands weakly but did not verbalise. 12/19: This morning the patient is seen in rounds with Dr. Godfrey. The patient is awake and alert and did track with his eyes. 12/23: When seen this morning the patient's daughter is feeding him. He does spontaneously open his eyes and move the upper extremities. He does appear to track with the eyes. 12/25: The patient is awake this morning and moving the right upper extremity spontaneously. He is watching Nursing and his family as they move about in the room. The utghvsjr-rb-rqv reports that the embassy is to call the hospital once everything is ready for the patient to be transferred back to [facility] or if they need any further information. She says her , the patient's son, spoke with the embassy yesterday. 12/29: The patient is asleep but awakens to verbal stimulation. He spontaneously moves both upper extremities and follows some commands on the right side. 12/30: This morning the patient is lethargic. He briefly opens his eyes but does not follow commands. His daughter/tlolhmin-xb-jgc reports that he was awake all night due to his coughing. 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 01/01: The patient is asleep when seen. He does awaken to voice and moves the upper extremities spontaneously. His daughter/ogttqsfd-ai-hpv reports that he does say a few words and at times it seems he is searching for the word he wants but is unable to find it. 01/03: The patient is awake and alert when seen and readily interacts. He reaches his hand out to shake mine. He is verbalising although his voice is slightly gravely. He does speak some in Portuguese. 01/04: This morning the patient is awake and alert when seen. He readily interacts. His voice is a little stronger. He speaks in Portuguese and Romanian. His daughter/lefshtly-lx-hgb states he is confused and doesn't remember seeing this practitioner yesterday. 01/05: When seen the patient is awake and alert. He readily interacts and speaks in a little Portuguese with this practitioner but primarily in Romanian. The daughter/mqbuibox-we-kmx reports that the patient didn't sleep the last two nights due to coughing. 01/07: This afternoon the patient is awake and fairly alert. He is verbalising in Romanian. He is moving the upper extremities spontaneously. 2: The patient when seen intially this morning with Dr Godfrey was awake and alert in bed and tracking between people. He did verbalise in Romanian and moved the upper extremities spontaneously. His son stated that he did recognise his grandchildren and knew their names. He also said that his conversation is appropriate at times. This afternoon the patient is asleep when seen. 3: When seen this morning the patient is lethargic. He does open his eyes to voice but he does not verbalise. He spontaneously moves the upper extremities. 01/12: This morning the patient is seen in rounds with Dr. Godfrey. Nursing is cleaning the patient after having a bowel movement. 01/13: When seen this morning the patient's son is feeding him breakfast. He is awake and alert, and readily interacts. He does verbalise a few words in Romanian in response to questions from his son. He states he is doing good when asked and had no headache or other complaints. After being seen he wants to shake hands with this practitioner. 8: The patient is awake and alert in bed when seen this afternoon. He purposefully moves the upper extremities and verbalises some in Romanian. He does not follow commands and pulls the sheet up over his head. 11: Awake and alert today. Nursing staff reports no new problems 01/17: Patient is awake and alert this morning. He does not speaking layers. According to nursing was having no new complaints while daughter was available in the room. 01/18: Patient is awake and alert this morning. He does not speaking Portuguese. Daughter is present and notes stable course. 01/19: This morning the patient is awake. He only speaks a word or two in Romanian. He does move the upper extremities spontanously and purposefully. The son states the transport aircraft and crew will be leaving [place] [facility] on Thursday. He is uncertain as to when his father will be picked up as there are two patients being flown back. He did report that they are to be back in [place] [facility] by Thursday. 01/20: When seen this morning the patient is lethargic. He briefly opens his eyes to voice but does not respond any further. He is noted to move the feet spontaneously. 01/21: This afternoon the patient is awake and alert. He does interact readily and is verbalising a few words in Romanian. He is moving his upper extremities spontaneously and reaches for this practitioner's hand. (Brennon White) Exam Results 01/19/17 01/19/17 01/20/17 01/20/17 01/21/17 01/21/17 06:00 18:00 06:00 18:00 06:00 18:00 Intake Total 120 ml 1080 ml 720 ml 240 ml Output Total 800 ml 1550 ml 500 ml 1000 ml 950 ml Balance -680 ml -470 ml -500 ml -280 ml -710 ml Intake Oral 120 ml 1080 ml 720 ml 240 ml Output Urine Total 800 ml 1550 ml 500 ml 1000 ml 950 ml Bladder Scan Volume Amount 130 ml 130 ml # Bowel Movements 1 2 3 3 3 Vital Signs Date Time Temp Pulse Resp B/P (MAP) Pulse Ox O2 Delivery O2 Flow Rate FiO2 01/21/17 10:44 95 01/21/17 08:00 98.1 91 15 111/59 (76) 92 01/21/17 04:00 97.9 98 18 118/63 (81) 97 01/21/17 03:48 86 01/21/17 01:00 97.4 70 20 124/84 (97) 98 01/20/17 20:00 98.5 97 20 122/72 (89) 97 01/20/17 16:14 98.6 86 18 112/74 (87) 99 01/20/17 12:50 97.8 87 18 126/66 (86) 96 01/20/17 08:00 98.1 87 18 115/63 (80) 96 01/20/17 05:19 94.5 98 18 130/52 (78) 95 01/20/17 04:43 88 01/20/17 00:39 97.5 94 18 122/76 (91) 98 01/19/17 20:40 98.3 93 18 127/53 (77) 95 01/19/17 16:56 97.8 97 20 131/68 (89) 98 01/19/17 12:07 97.4 84 20 119/59 (79) 99 01/19/17 08:29 98.2 85 20 121/61 (81) 97 01/19/17 05:12 98.9 94 17 145/76 (99) 96 01/19/17 00:14 99.0 81 17 123/62 (82) 96 01/18/17 21:27 98.7 95 20 114/56 (75) 97 01/18/17 20:23 87 (Brennon White) Physical Examination GENERAL: Patient awake & alert, he readily interacts, no evident distress. MUSCULOSKELETAL: Moves all extremities to varying degrees. NEUROLOGICAL: Awake & alert, readily interacts. Spontaneous eye opening. Verbalising with a few words in Romanian. Follows simple commands. Moves upper extremities spontaneously and both feet to command. (Brennon White) Medical Decision Making Impression and Plan Impression/plan: 1. Traumatic brain injury. Most recent CT scan stable with resolving contusions, stable mild to moderate subdural fluid collections without significant mass effect. Mental status fluctuating throughout the day but overall stable over the past week. 2. Jane UTI. Treated. 12/13/16 follow-up urine culture growth at 48 hours 3. Hypertension, atrial fibrillation. Remains on Lopressor. 3. Recent seizures. He remains on Keppra and Dilantin. 4. Sacral decubitus ulcer. Continuing decubitus precautions, wound care, Santyl 5. Leukocytosis. Hematology following-workup in progress. 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 6. Diabetes. Remains on insulin sliding scale. 7. Respiratory insufficiency. Improved. Stable on room air Patient is alert and interactive today, verbalising some in Romanian, moving extremities. [place] leaving [place] Thursday with planned return to [facility] by Thursday. Medical management per Hospitalist. No active issues for Neurosurgery. (Brennon White) Attending Statement The exam, history, and the medical decision-making described in the above note were completed with the assistance of the mid-level provider. I reviewed and agree with the findings presented. I attest that I had a [id number] encounter with the patient on the same day, and personally performed and documented my assessment and findings in the medical record. Remains awake and relatively alert. Tolerating diet well Vital signs stable Remains on seizure prophylaxis Hypertension-stable on medications Diabetes-insulin sliding scale Stable for transfer from neurosurgical standpoint (Tony Godfrey MD) Brennon White Jan 21, 2017 16:39 Tony Godfrey MD Jan 21, 2017 20:00
[2017-01-21] MEDS: TAMSULOSIN HCL 0.4 MG CAP PO SCH (21:22)
[2017-01-22] VITALS (7 sets, daily range): BP systolic 125–144; BP diastolic 57–84; PULSE 46–96; RESP 16–20; TEMP 97.3–99; O2SAT 94–99
[2017-01-22] MEDS: METOPROLOL TARTRATE 50 MG TAB PO SCH ×3 (05:54→21:24)
[2017-01-22] MEDS: levETIRAcetam 500 MG/5 ML UDC PO SCH ×3 (05:54→21:24)
[2017-01-22] MEDS: TOLTERODINE TARTRATE 2 MG CAP LA PO SCH (08:12)
[2017-01-22] MEDS: FUROSEMIDE 40 MG TAB PO SCH (08:12)
[2017-01-22] MEDS: amLODIPine BESYLATE 5 MG TAB PO SCH (08:12)
[2017-01-22] MEDS: FINASTERIDE 5 MG TAB PO SCH (08:12)
[2017-01-22] MEDS: LANSOPRAZOLE SOLUTAB 30 MG TAB NG SCH (08:12)
[2017-01-22] MEDS: DOCUSATE SODIUM 100 MG/10 ML UDC PO SCH ×2 (08:12→21:24)
[2017-01-22] MEDS: INSULIN DETEMIR 100 UNITS/ML VIAL SQ SCH (08:13)
[2017-01-22] MEDS: PHENYTOIN SODIUM 100 MG CAP PO SCH ×3 (08:13→18:09)
[2017-01-22] MEDS: MEGESTROL ACETATE SUSP 400 MG/10 ML CUP PO SCH (08:13)
[2017-01-22] MEDS: INSULIN NovoLIN REGULAR SUPPLEMENTAL SCALE SQ SCH ×4 (08:30→21:00)
[2017-01-22] MEDS: ARTIFICIAL TEARS OPTH SOLN 15 ML BTL EACH EYE SCH ×3 (10:00→18:10)
[2017-01-22] MEDS: SODIUM CHLORIDE 0.9% FLUSH 10 ML FLUSH IVF SCH (10:00)
[2017-01-22] MEDS: SODIUM CHLORIDE 0.9% FLUSH 10 ML FLUSH IV FLUSH SCH ×2 (10:00→21:00)
[2017-01-22] MEDS: CHLORHEXIDINE 0.12% (ORAL KIT) 15 ML CUP MT SCH ×2 (10:00→20:00)
[2017-01-22] MEDS: COLLAGENASE OINT 30 GM TUBE TOPICAL SCH ×2 (10:00)
[2017-01-22] MEDS: POLYETHYLENE GLYCOL 17 GM PKG OG-TUBE SCH ×2 (10:00→21:24)
--- NOTE | 2017-01-22 10:08 | HHI.PR ---
Subjective Remarks Follow up visit SDH, UE DVT, HTN, DM2. Patient seen and examined today laying in bed. Called earlier by nurse that patient all of a sudden went to sleep and cannot be aroused. Sternal rub was done and patient woke up. Patient cousin at the bedside. Patient is awake and alert when seen. Responds to some questions and commands. Due to language barrier patient may not be able to understand what is being asked of him. He appears to be at baseline. He ate all his breakfast when assisted with feeding. Objective Vitals Vital Signs Date Time Temp Pulse Resp B/P (MAP) Pulse Ox O2 Delivery O2 Flow Rate FiO2 01/22/17 08:53 98.1 83 20 131/57 (81) 95 01/22/17 06:01 99.0 80 18 144/69 (94) 94 01/22/17 01:32 98.8 88 16 137/72 (93) 96 01/21/17 22:03 98.4 91 16 133/60 (84) 93 01/21/17 16:00 97.9 85 15 116/60 (78) 98 01/21/17 12:00 98.5 97 15 115/59 (77) 97 01/21/17 10:44 95 I/O 01/21/17 01/21/17 01/21/17 01/22/17 01/22/17 01/22/17 07:00 15:00 23:00 07:00 15:00 23:00 Output Total 950 ml 600 ml Balance -950 ml -600 ml Output Urine Total 950 ml 600 ml # Bowel Movements 3 1 Imaging Last Impressions Chest X-Ray 01/05/17 0000 Signed Impressions: Service Date/Time: Thursday, January 05, 2017 15:05 - CONCLUSION: 1. Stable chronic interstitial disease bilaterally. 2. Small bilateral pleural effusions. 3. Degenerative changes and scoliosis of the thoracic spine. Juan Manuel Michel MD Brain MRI 12/13/16 0000 Signed Impressions: Service Date/Time: Tuesday, December 13, 2016 12:20 - CONCLUSION: 1. The examination demonstrates multiple small areas of intraparenchymal and extra-axial hemorrhage as described above. These areas are more apparent on the patient's MRI examination than on the CT. Direct comparison is made. The areas of edema and hemorrhage appear similar though they are isointense on the CT. 2. 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 There is cortical atrophy. Anthony Burns MD Upper Extremity Ultrasound 12/02/16 0000 Signed Impressions: Service Date/Time: Saturday, December 03, 2016 00:53 - CONCLUSION: 1. Occlusive DVT in the cephalic and basilic vein on the right. Alex Goode MD Head CT 12/01/16 0000 Signed Impressions: Service Date/Time: Thursday, December 01, 2016 13:14 - CONCLUSION: Evolving intracranial hemorrhagic foci as above, both intra-axial and extra-axial. Jesus Lee MD Modified Barium Swallow 11/30/16 0000 Signed Impressions: Service Date/Time: Wednesday, November 30, 2016 00:00 - CONCLUSION: Please refer to speech pathology report for full details. Lonnie Cook MD Transcranial Doppler Study Complete 11/17/16 0000 Signed Impressions: Service Date/Time: Thursday, November 17, 2016 10:03 - CONCLUSION: 1. Nondiagnostic examination due to poor transcranial windows. Konstantin Dash MD Abdomen X-Ray 11/12/16 0000 Signed Impressions: Service Date/Time: Saturday, November 12, 2016 08:23 - CONCLUSION: 1. Gastric tube in good position. 2. Probable right renal stones. Narayan Coulter MD Cervical Spine CT 11/09/161950 Signed Impressions: Service Date/Time: Wednesday, November 09, 2016 20:14 - CONCLUSION: Negative trauma CT. Cj Isidro MD Objective Remarks GENERAL: This is a thin-appearing, well-developed patient, in no apparent distress. SKIN: Warm and dry. HEENT: Nose without bleeding. Airway patent. NECK: Trachea midline. Supple. CARDIOVASCULAR: Heart rate irregular, rate wnl without murmurs, gallops, or rubs. RESPIRATORY: Diminished bases. No wheezes, rales, or rhonchi. GASTROINTESTINAL: Abdomen soft, non-tender, nondistended. Bowel Sounds normoactive x4. Noriega draining urine yellow. MUSCULOSKELETAL: Extremities without clubbing, cyanosis, bilateral lower extremity trace edema. NEUROLOGICAL: Awake. Moves all extremities weakly. Minimal verbalization. Procedures None Date of Insertion: Dec 17, 2016 Date of Insertion: Nov 12, 2016 Line: Central Venous Catheter Side: Right Location: Internal, Jugular A/P Problem List: (1) Subdural hematoma ICD Code: I62.00 - Nontraumatic subdural hemorrhage, unspecified Status: Acute (2) Diabetes ICD Code: E11.9 - Type 2 diabetes mellitus without complications Status: Chronic (3) Leukocytosis ICD Code: D72.829 - Elevated white blood cell count, unspecified Status: Acute (4) HTN (hypertension) ICD Code: I10 - Essential (primary) hypertension Status: Chronic (5) Dysphagia ICD Code: R13.10 - Dysphagia, unspecified (6) Urinary tract infection ICD Code: N39.0 - Urinary tract infection, site not specified Assessment and Plan 80 y/o with a history of HTN, DM, and BPH presented to the ED after a fall at home, with a LOC for 10-15 mins. Closed head injury Subdural hematoma Bilateral intracranial hemorrhaging - Managed by neurosurgery and no indication for surgery at this time - Neuro checks, seizure precautions - Continue with Keppra and Dilantin by mouth; monitor level - On and off drowsy. Metabolic encephalopathy - head CT 12/01/16 showed Bilateral hypodense subdural hematomas are seen in the occipital region and along the tentorium cerebelli on the right as well as small right frontal subdural hematoma unchanged. The left frontal parenchymal bleed is decreased in density with a small amount of edema identified. There is atrophy and moderate confluent hypodense white matter disease in the periventricular regions. The right frontal and left insular bleeds are much less conspicuous with a small amount of residual high density in the right frontal region with a small amount of surrounding edema. There is no midline shift or mass effect. Vascular calcifications are noted. No fractures. - CXR with improving aeration - Continue neurochecks - Ammonia level within normal. ABG without any changes. - Repeat brain MRI 12/13/16 showed 1. Examination demonstrates multiple small areas of intraparenchymal and extra ache she'll hemorrhage as described above he Sears are more apparent on the patient's MRI examination done on the CT. Direct comparison is made. The areas of edema and hemorrhage appears similar though they are isointense on the CT. 2. 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 There is cortical atrophy. - On and off drowsy. Leukocytosis Anemia - Hematology following. Ordered other testing R/O other bone marrow abnormality. Follow results. - Blood cultures no growth in 5 days. Off antibiotics. 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 - Avoid unnecessary blood draws Respiratory insufficiency - Chest x-ray with improvement in aeration - Continue CPT - Schedule and DuoNeb when necessary and maintain oxygen saturation above 92% - Improving aeration with CXR - Off NC, tolerating RA. Occasional cough non productive. Good air entry. Atrial fibrillation Hypertension - Continue with Lopressor 25mg TID - better rate control and BP control - Oral anticoagulation contraindicated secondary to intracranial bleed - Monitor BP Trend, HR Decubitus ulcer, DTI sacral area - Continue Santyl - Wound care following. 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 Noriega reinserted. Diabetes mellitus - hemoglobin A1c 6.0 - Levemir 10 units twice a day ISS. Monitor accucheck Occlusive DVT in cephalic vein right upper extremity - Hematology consultation appreciated however oral anticoagulation contraindicated - Avoid IV access RUE Dysphagia secondary to intracranial hemorrhage - Barium swallow study normal - Reassessed by speech for swallowing evaluation. Recommends pure diet, nectar thickened consistency liquids. - Aspiration precaution Generalized weakness, prolonged hospitalization - Encourage family to do ROM exercises with patient while in bed. Needs to be aggressive with increase activity, OOB-chair, if patient has pain, to be addressed with pain medication -tylenol. - Discuss with family members that pain should not deter him to increase his activities or being OOB to chair. - Encourage activities in the morning so that patient can stay awake. Urinary tract infection, resolved - off antibiotics - Plan for voiding trial when more awake and active. Prophylaxis GI - Lanosprazole DVT - SCD/pharmacological prophylaxis when okay with neurosurgery Discuss with patient, nursing, Dr. Barnett Discharge Planning Plan is for patient to leave out of the country to go to [facility]. Case management following. Plan for DC Thursday with medical flight transport to [facility]. Problem Qualifiers (1) HTN (hypertension): Qualified Codes: I10 - Essential (primary) hypertension Veronica Coley Jan 22, 2017 10:08
--- NOTE | 2017-01-22 10:34 | HHI.NSPN ---
([place] MACIAS) History Chief Complaint: Unable to obtain due to patient's lethargy. (CindyBrennon MACIAS) Interval History 12/07: Patient opens eyes to voice, smiles, questionable followed simple command left UE x one, not following commands other extremities. Not verbalizing. 12/13: Patient reported to be sleeping a little better at night. Still lethargic much of the day. According to family he is saying a few words and responds to questions, remains confused, following a few commands occasionally. 12/15: Patient extremely lethargic. No response to verbal stimulation but did withdraw upper extremities and open eyes to localised noxious stimulation. Slight moaning but no other response. 12/16: The patient is lethargic but less so today. He was noted to open his eyes and move both upper extremities spontaneously. He did respond to some commands weakly but did not verbalise. 12/19: This morning the patient is seen in rounds with Dr. Godfrey. The patient is awake and alert and did track with his eyes. 12/23: When seen this morning the patient's daughter is feeding him. He does spontaneously open his eyes and move the upper extremities. He does appear to track with the eyes. 12/25: The patient is awake this morning and moving the right upper extremity spontaneously. He is watching Nursing and his family as they move about in the room. The drshotvg-fq-npu reports that the embassy is to call the hospital once everything is ready for the patient to be transferred back to [facility] or if they need any further information. She says her , the patient's son, spoke with the embassy yesterday. 12/29: The patient is asleep but awakens to verbal stimulation. He spontaneously moves both upper extremities and follows some commands on the right side. 12/30: This morning the patient is lethargic. He briefly opens his eyes but does not follow commands. His daughter/qzwmjvgh-gr-wms reports that he was awake all night due to his coughing. 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 01/01: The patient is asleep when seen. He does awaken to voice and moves the upper extremities spontaneously. His daughter/mptmusvl-wu-pzr reports that he does say a few words and at times it seems he is searching for the word he wants but is unable to find it. 01/03: The patient is awake and alert when seen and readily interacts. He reaches his hand out to shake mine. He is verbalising although his voice is slightly gravely. He does speak some in Hungarian. 01/04: This morning the patient is awake and alert when seen. He readily interacts. His voice is a little stronger. He speaks in Hungarian and French. His daughter/lbegtvgx-sl-vmb states he is confused and doesn't remember seeing this practitioner yesterday. 01/05: When seen the patient is awake and alert. He readily interacts and speaks in a little Hungarian with this practitioner but primarily in French. The daughter/deybwcti-rg-ehx reports that the patient didn't sleep the last two nights due to coughing. 01/07: This afternoon the patient is awake and fairly alert. He is verbalising in French. He is moving the upper extremities spontaneously. 01/08: The patient when seen intially this morning with Dr Godfrey was awake and alert in bed and tracking between people. He did verbalise in French and moved the upper extremities spontaneously. His son stated that he did recognise his grandchildren and knew their names. He also said that his conversation is appropriate at times. This afternoon the patient is asleep when seen. 01/09: When seen this morning the patient is lethargic. He does open his eyes to voice but he does not verbalise. He spontaneously moves the upper extremities. 01/12: This morning the patient is seen in rounds with Dr. Godfrey. Nursing is cleaning the patient after having a bowel movement. 01/13: When seen this morning the patient's son is feeding him breakfast. He is awake and alert, and readily interacts. He does verbalise a few words in French in response to questions from his son. He states he is doing good when asked and had no headache or other complaints. After being seen he wants to shake hands with this practitioner. 01/14: The patient is awake and alert in bed when seen this afternoon. He purposefully moves the upper extremities and verbalises some in French. He does not follow commands and pulls the sheet up over his head. 01/15: Awake and alert today. Nursing staff reports no new problems 01/17: Patient is awake and alert this morning. He does not speaking layers. According to nursing was having no new complaints while daughter was available in the room. 01/18: Patient is awake and alert this morning. He does not speaking Hungarian. Daughter is present and notes stable course. 01/19: This morning the patient is awake. He only speaks a word or two in French. He does move the upper extremities spontanously and purposefully. The son states the transport aircraft and crew will be leaving [place] on Thursday. He is uncertain as to when his father will be picked up as there are two patients being flown back. He did report that they are to be back in [place] by Thursday. 01/20: When seen this morning the patient is lethargic. He briefly opens his eyes to voice but does not respond any further. He is noted to move the feet spontaneously. 01/21: This afternoon the patient is awake and alert. He does interact readily and is verbalising a few words in French. He is moving his upper extremities spontaneously and reaches for this practitioner's hand. 01/22: The patient is seen sitting up in a cardiac chair. He has the blankets up over his face and covering his head. He is seen spontaneously moving the upper extremities but does not interact this morning. (Brennon White) System Review Comments Unable to obtain due to patient's lethargy. (Brennon White) Exam Results 01/20/17 01/20/17 01/21/17 01/21/17 01/22/17 01/22/17 06:00 18:00 06:00 18:00 06:00 18:00 Intake Total 720 ml 240 ml Output Total 500 ml 1000 ml 950 ml 600 ml Balance -500 ml -280 ml -710 ml -600 ml Intake Oral 720 ml 240 ml Output Urine Total 500 ml 1000 ml 950 ml 600 ml Bladder Scan Volume Amount 130 ml 130 ml # Bowel Movements 3 3 3 1 Vital Signs Date Time Temp Pulse Resp B/P (MAP) Pulse Ox O2 Delivery O2 Flow Rate FiO2 01/22/17 08:53 98.1 83 20 131/57 (81) 95 01/22/17 06:01 99.0 80 18 144/69 (94) 94 01/22/17 01:32 98.8 88 16 137/72 (93) 96 01/21/17 22:03 98.4 91 16 133/60 (84) 93 01/21/17 16:00 97.9 85 15 116/60 (78) 98 01/21/17 12:00 98.5 97 15 115/59 (77) 97 01/21/17 10:44 95 01/21/17 08:00 98.1 91 15 111/59 (76) 92 01/21/17 04:00 97.9 98 18 118/63 (81) 97 01/21/17 03:48 86 01/21/17 01:00 97.4 70 20 124/84 (97) 98 01/20/17 20:00 98.5 97 20 122/72 (89) 97 01/20/17 16:14 98.6 86 18 112/74 (87) 99 01/20/17 12:50 97.8 87 18 126/66 (86) 96 01/20/17 08:00 98.1 87 18 115/63 (80) 96 01/20/17 05:19 94.5 98 18 130/52 (78) 95 01/20/17 04:43 88 01/20/17 00:39 97.5 94 18 122/76 (91) 98 01/19/17 20:40 98.3 93 18 127/53 (77) 95 01/19/17 16:56 97.8 97 20 131/68 (89) 98 01/19/17 12:07 97.4 84 20 119/59 (79) 99 (Brennon White) Physical Examination GENERAL: Patient lethargic and not interacting, no evident distress. MUSCULOSKELETAL: Moves upper extremities spontaneously. NEUROLOGICAL: Lethargic, not interacting. No eye opening. Nonverbal. Not following simple commands. Moves upper extremities spontaneously. (Brennon White) Medical Decision Making Impression and Plan Impression/plan: 1. Traumatic brain injury. Most recent CT scan stable with resolving contusions, stable mild to moderate subdural fluid collections without significant mass effect. Mental status fluctuating throughout the day but overall stable over the past week. 2. Jane UTI. Treated. 12/13/16 follow-up urine culture growth at 48 hours 3. Hypertension, atrial fibrillation. Remains on Lopressor. 3. Recent seizures. He remains on Keppra and Dilantin. 4. Sacral decubitus ulcer. Continuing decubitus precautions, wound care, Santyl 5. Leukocytosis. Hematology following-workup in progress. 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 6. Diabetes. Remains on insulin sliding scale. 7. Respiratory insufficiency. Improved. Stable on room air Patient is lethargic today and not interacting, he is spontaneously moving the upper extremities. [place] leaving [place] [facility] Thursday with planned return to [facility] by Thursday. Medical management per Hospitalist. No active issues for Neurosurgery. He is able to be discharged from NS's perspective for transport back to [facility]. (Brennon White) Attending Statement The exam, history, and the medical decision-making described in the above note were completed with the assistance of the mid-level provider. I reviewed and agree with the findings presented. I attest that I had a csfc-pz-owmy encounter with the patient on the same day, and personally performed and documented my assessment and findings in the medical record. Patient remains awake and alert on examination today. Vital signs remained stable. Continuing antihypertensive medications, insulin sliding scale, seizure prophylaxis Current plans are for transfer back to [facility] on 01/24/17 (Tony Godfrey MD) Brennon White Jan 22, 2017 10:33 Tony Godfrey MD Jan 23, 2017 00:02
[2017-01-22] MEDS: MUPIROCIN 2% CREAM 15 GM TOPICAL SCH ×2 (17:15→21:00)
[2017-01-22] MEDS: TAMSULOSIN HCL 0.4 MG CAP PO SCH (21:24)
[2017-01-23 01:28] VITALS: BP 109/68; PULSE 88; RESP 18; TEMP 98.8; O2SAT 92
[2017-01-23] MEDS: METOPROLOL TARTRATE 50 MG TAB PO SCH ×3 (05:56→23:55)
[2017-01-23] MEDS: levETIRAcetam 500 MG/5 ML UDC PO SCH ×3 (05:56→23:55)
[2017-01-23 06:15] VITALS: BP 134/94; PULSE 95; RESP 18; TEMP 98.3; O2SAT 96
[2017-01-23 07:30] VITALS: BP 112/71; PULSE 85; RESP 20; TEMP 98; O2SAT 97
[2017-01-23] MEDS: INSULIN NovoLIN REGULAR SUPPLEMENTAL SCALE SQ SCH ×4 (08:00→21:00)
[2017-01-23] MEDS: CHLORHEXIDINE 0.12% (ORAL KIT) 15 ML CUP MT SCH ×2 (08:00→20:00)
--- NOTE | 2017-01-23 08:55 | HHI.PR ---
Subjective Remarks Follow up visit SDH, UE DVT, HTN, DM2. Patient seen and examined today laying in bed. Awake, smiling. Does not verbalized anything. Appears comfortable. No acute issues overnight. Objective Vitals Vital Signs Date Time Temp Pulse Resp B/P (MAP) Pulse Ox O2 Delivery O2 Flow Rate FiO2 01/23/17 06:15 98.3 95 18 134/94 (107) 96 01/23/17 01:28 98.8 88 18 109/68 (82) 92 01/22/17 21:17 98.2 96 16 125/58 (80) 94 01/22/17 17:11 97.3 79 18 128/59 (82) 99 01/22/17 12:19 97.9 86 20 143/84 (103) 97 01/22/17 11:11 88 I/O 01/22/17 01/22/17 01/22/17 01/23/17 01/23/17 01/23/17 07:00 15:00 23:00 07:00 15:00 23:00 Output Total 600 ml 850 ml 450 ml Balance -600 ml -850 ml -450 ml Output Urine Total 600 ml 850 ml 450 ml # Bowel Movements 1 1 1 Imaging Last Impressions Chest X-Ray 01/05/17 0000 Signed Impressions: Service Date/Time: Thursday, January 05, 2017 15:05 - CONCLUSION: 1. Stable chronic interstitial disease bilaterally. 2. Small bilateral pleural effusions. 3. Degenerative changes and scoliosis of the thoracic spine. Juan Manuel Michel MD Brain MRI 12/13/16 0000 Signed Impressions: Service Date/Time: Tuesday, December 13, 2016 12:20 - CONCLUSION: 1. The examination demonstrates multiple small areas of intraparenchymal and extra-axial hemorrhage as described above. These areas are more apparent on the patient's MRI examination than on the CT. Direct comparison is made. The areas of edema and hemorrhage appear similar though they are isointense on the CT. 2. 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 There is cortical atrophy. Anthony Burns MD Upper Extremity Ultrasound 12/02/16 0000 Signed Impressions: Service Date/Time: Saturday, December 03, 2016 00:53 - CONCLUSION: 1. Occlusive DVT in the cephalic and basilic vein on the right. Alex Goode MD Head CT 12/01/16 Signed Impressions: Service Date/Time: Thursday, December 01, 2016 13:14 - CONCLUSION: Evolving intracranial hemorrhagic foci as above, both intra-axial and extra-axial. Jesus Lee MD Modified Barium Swallow 11/30/16 Signed Impressions: Service Date/Time: Wednesday, November 30, 2016 00:00 - CONCLUSION: Please refer to speech pathology report for full details. Lonnie Cook MD Transcranial Doppler Study Complete 11/17/16 Signed Impressions: Service Date/Time: Thursday, November 17, 2016 10:03 - CONCLUSION: 1. Nondiagnostic examination due to poor transcranial windows. Konstantin Dash MD Abdomen X-Ray 11/12/16 Signed Impressions: Service Date/Time: Saturday, November 12, 2016 08:23 - CONCLUSION: 1. Gastric tube in good position. 2. Probable right renal stones. Narayan Coulter MD Cervical Spine CT 11/09/161950 Signed Impressions: Service Date/Time: Wednesday, November 09, 2016 20:14 - CONCLUSION: Negative trauma CT. Cj Isidro MD Objective Remarks GENERAL: This is a thin-appearing, well-developed patient, in no apparent distress. SKIN: Warm and dry. HEENT: Nose without bleeding. Airway patent. NECK: Trachea midline. Supple. CARDIOVASCULAR: Heart rate irregular, rate wnl without murmurs, gallops, or rubs. RESPIRATORY: Diminished bases. No wheezes, rales, or rhonchi. GASTROINTESTINAL: Abdomen soft, non-tender, nondistended. Bowel Sounds normoactive x4. Noriega draining urine yellow. MUSCULOSKELETAL: Extremities without clubbing, cyanosis, bilateral lower extremity trace edema. NEUROLOGICAL: Awake. Moves all extremities weakly. Minimal verbalization. Procedures None Date of Insertion: Dec 17, 2016 Date of Insertion: Nov 12, 2016 Line: Central Venous Catheter Side: Right Location: Internal, Jugular A/P Problem List: (1) Subdural hematoma ICD Code: I62.00 - Nontraumatic subdural hemorrhage, unspecified Status: Acute (2) Diabetes ICD Code: E11.9 - Type 2 diabetes mellitus without complications Status: Chronic (3) Leukocytosis ICD Code: D72.829 - Elevated white blood cell count, unspecified Status: Acute (4) HTN (hypertension) ICD Code: I10 - Essential (primary) hypertension Status: Chronic (5) Dysphagia ICD Code: R13.10 - Dysphagia, unspecified (6) Urinary tract infection ICD Code: N39.0 - Urinary tract infection, site not specified Assessment and Plan 80 y/o with a history of HTN, DM, and BPH presented to the ED after a fall at home, with a LOC for 10-15 mins. Closed head injury Subdural hematoma Bilateral intracranial hemorrhaging - Managed by neurosurgery and no indication for surgery at this time - Neuro checks, seizure precautions - Continue with Keppra and Dilantin by mouth; monitor level - On and off drowsy. Awake today. Metabolic encephalopathy - head CT 12/01/16 showed Bilateral hypodense subdural hematomas are seen in the occipital region and along the tentorium cerebelli on the right as well as small right frontal subdural hematoma unchanged. The left frontal parenchymal bleed is decreased in density with a small amount of edema identified. There is atrophy and moderate confluent hypodense white matter disease in the periventricular regions. The right frontal and left insular bleeds are much less conspicuous with a small amount of residual high density in the right frontal region with a small amount of surrounding edema. There is no midline shift or mass effect. Vascular calcifications are noted. No fractures. - CXR with improving aeration - Continue neurochecks - Ammonia level within normal. ABG without any changes. - Repeat brain MRI 12/13/16 showed 1. Examination demonstrates multiple small areas of intraparenchymal and extra ache she'll hemorrhage as described above he Sears are more apparent on the patient's MRI examination done on the CT. Direct comparison is made. The areas of edema and hemorrhage appears similar though they are isointense on the CT. 2. 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 There is cortical atrophy. - On and off drowsy. Awake today. Leukocytosis Anemia - Hematology following. Ordered other testing R/O other bone marrow abnormality. Follow results. - Blood cultures no growth in 5 days. Off antibiotics. 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 - Avoid unnecessary blood draws Respiratory insufficiency - Chest x-ray with improvement in aeration - Continue CPT - Schedule and DuoNeb when necessary and maintain oxygen saturation above 92% - Improving aeration with CXR - Off NC, tolerating RA. Occasional cough non productive. Good air entry. Atrial fibrillation Hypertension - Continue with Lopressor 25mg TID - better rate control and BP control - Oral anticoagulation contraindicated secondary to intracranial bleed - Monitor BP Trend, HR Decubitus ulcer, DTI sacral area - Continue Santyl - Wound care following. 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 Noriega reinserted. Diabetes mellitus - hemoglobin A1c 6.0 - Levemir 10 units twice a day ISS. Monitor accucheck Occlusive DVT in cephalic vein right upper extremity - Hematology consultation appreciated however oral anticoagulation contraindicated - Avoid IV access RUE Dysphagia secondary to intracranial hemorrhage - Barium swallow study normal - Reassessed by speech for swallowing evaluation. Recommends pure diet, nectar thickened consistency liquids. - Aspiration precaution Generalized weakness, prolonged hospitalization - Encourage family to do ROM exercises with patient while in bed. Needs to be aggressive with increase activity, OOB-chair, if patient has pain, to be addressed with pain medication -tylenol. - Discuss with family members that pain should not deter him to increase his activities or being OOB to chair. - Encourage activities in the morning so that patient can stay awake. Urinary tract infection, resolved - off antibiotics - Plan for voiding trial when more awake and active. Prophylaxis GI - Lanosprazole DVT - SCD/pharmacological prophylaxis when okay with neurosurgery Discuss with patient, nursing, Dr. Barnett Plan to DC tomorrow morning and be picked up by [facility] from [facility]. The transport team have spoken to CM, family and nursing. All prescriptions have been filled for the transport. Patient DC Summary has been done prior. His extended stay at the hospital is secondary to awaiting for medical transport. Clinically stable from medical standpoint. Discharge Planning Plan is for patient to leave out of the country to go to [facility]. Case management following. Plan for DC Thursday with medical flight transport to [facility]. Problem Qualifiers (1) HTN (hypertension): Qualified Codes: I10 - Essential (primary) hypertension Veronica Coley Jan 23, 2017 08:55
[2017-01-23] MEDS: ARTIFICIAL TEARS OPTH SOLN 15 ML BTL EACH EYE SCH ×3 (09:00→17:44)
[2017-01-23] MEDS: SODIUM CHLORIDE 0.9% FLUSH 10 ML FLUSH IVF SCH (09:00)
[2017-01-23] MEDS: POLYETHYLENE GLYCOL 17 GM PKG OG-TUBE SCH ×2 (09:00→21:00)
[2017-01-23] MEDS: INSULIN DETEMIR 100 UNITS/ML VIAL SQ SCH (09:00)
[2017-01-23] MEDS: COLLAGENASE OINT 30 GM TUBE TOPICAL SCH ×2 (09:00)
[2017-01-23] MEDS: SODIUM CHLORIDE 0.9% FLUSH 10 ML FLUSH IV FLUSH SCH ×2 (09:00→23:56)
[2017-01-23] MEDS: MEGESTROL ACETATE SUSP 400 MG/10 ML CUP PO SCH (09:08)
[2017-01-23] MEDS: DOCUSATE SODIUM 100 MG/10 ML UDC PO SCH ×2 (09:09→21:00)
[2017-01-23] MEDS: FINASTERIDE 5 MG TAB PO SCH (09:09)
[2017-01-23] MEDS: FUROSEMIDE 40 MG TAB PO SCH (09:09)
[2017-01-23] MEDS: TOLTERODINE TARTRATE 2 MG CAP LA PO SCH (09:09)
[2017-01-23] MEDS: amLODIPine BESYLATE 5 MG TAB PO SCH (09:09)
[2017-01-23] MEDS: LANSOPRAZOLE SOLUTAB 30 MG TAB NG SCH (09:09)
[2017-01-23] MEDS: PHENYTOIN SODIUM 100 MG CAP PO SCH ×3 (09:09→17:44)
[2017-01-23] MEDS: MUPIROCIN 2% CREAM 15 GM TOPICAL SCH ×2 (09:10→23:55)
[2017-01-23] MEDS ORDERED: ACET650S PO (09:41)
[2017-01-23] MEDS ORDERED: LEVEMIR SQ (09:41)
[2017-01-23] MEDS ORDERED: MUPI2%T TOPICAL (09:41)
[2017-01-23] MEDS ORDERED: TAMS0.4C4 PO ×2 (09:41→09:52)
[2017-01-23] MEDS ORDERED: LEVE500S PO (09:41)
[2017-01-23] MEDS ORDERED: TEMA7.5C9 PO (09:41)
[2017-01-23] MEDS ORDERED: POLY99.0 EACH EYE (09:41)
[2017-01-23] MEDS ORDERED: COLL30T TOPICAL (09:41)
--- NOTE | 2017-01-23 09:46 | HHI.NSPN ---
History Chief Complaint: Unable to obtain due to patient's lethargy. Interval History 12/07: Patient opens eyes to voice, smiles, questionable followed simple command left UE x one, not following commands other extremities. Not verbalizing. 12/13: Patient reported to be sleeping a little better at night. Still lethargic much of the day. According to family he is saying a few words and responds to questions, remains confused, following a few commands occasionally. 12/15: Patient extremely lethargic. No response to verbal stimulation but did withdraw upper extremities and open eyes to localised noxious stimulation. Slight moaning but no other response. 12/16: The patient is lethargic but less so today. He was noted to open his eyes and move both upper extremities spontaneously. He did respond to some commands weakly but did not verbalise. 12/19: This morning the patient is seen in rounds with Dr. Godfrey. The patient is awake and alert and did track with his eyes. 12/23: When seen this morning the patient's daughter is feeding him. He does spontaneously open his eyes and move the upper extremities. He does appear to track with the eyes. 12/25: The patient is awake this morning and moving the right upper extremity spontaneously. He is watching Nursing and his family as they move about in the room. The kgawbzar-yq-tmf reports that the embassy is to call the hospital once everything is ready for the patient to be transferred back to [facility] or if they need any further information. She says her , the patient's son, spoke with the embassy yesterday. 12/29: The patient is asleep but awakens to verbal stimulation. He spontaneously moves both upper extremities and follows some commands on the right side. 12/30: This morning the patient is lethargic. He briefly opens his eyes but does not follow commands. His daughter/ucrcjmea-wx-dsy reports that he was awake all night due to his coughing. 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 01/01: The patient is asleep when seen. He does awaken to voice and moves the upper extremities spontaneously. His daughter/dsdawrdt-wa-osy reports that he does say a few words and at times it seems he is searching for the word he wants but is unable to find it. 01/03: The patient is awake and alert when seen and readily interacts. He reaches his hand out to shake mine. He is verbalising although his voice is slightly gravely. He does speak some in Ukrainian. 01/04: This morning the patient is awake and alert when seen. He readily interacts. His voice is a little stronger. He speaks in Ukrainian and Kiswahili. His daughter/pcroztgv-zy-pce states he is confused and doesn't remember seeing this practitioner yesterday. 01/05: When seen the patient is awake and alert. He readily interacts and speaks in a little Ukrainian with this practitioner but primarily in Kiswahili. The daughter/tiibzzyv-ga-cxz reports that the patient didn't sleep the last two nights due to coughing. 01/07: This afternoon the patient is awake and fairly alert. He is verbalising in Kiswahili. He is moving the upper extremities spontaneously. 2: The patient when seen intially this morning with Dr Godfrey was awake and alert in bed and tracking between people. He did verbalise in Kiswahili and moved the upper extremities spontaneously. His son stated that he did recognise his grandchildren and knew their names. He also said that his conversation is appropriate at times. This afternoon the patient is asleep when seen. 3: When seen this morning the patient is lethargic. He does open his eyes to voice but he does not verbalise. He spontaneously moves the upper extremities. 01/12: This morning the patient is seen in rounds with Dr. Godfrey. Nursing is cleaning the patient after having a bowel movement. 01/13: When seen this morning the patient's son is feeding him breakfast. He is awake and alert, and readily interacts. He does verbalise a few words in Kiswahili in response to questions from his son. He states he is doing good when asked and had no headache or other complaints. After being seen he wants to shake hands with this practitioner. 8: The patient is awake and alert in bed when seen this afternoon. He purposefully moves the upper extremities and verbalises some in Kiswahili. He does not follow commands and pulls the sheet up over his head. 01/15: Awake and alert today. Nursing staff reports no new problems 01/17: Patient is awake and alert this morning. He does not speaking layers. According to nursing was having no new complaints while daughter was available in the room. 01/18: Patient is awake and alert this morning. He does not speaking Ukrainian. Daughter is present and notes stable course. 01/19: This morning the patient is awake. He only speaks a word or two in Kiswahili. He does move the upper extremities spontanously and purposefully. The son states the transport aircraft and crew will be leaving [facility] on Thursday. He is uncertain as to when his father will be picked up as there are two patients being flown back. He did report that they are to be back in [facility] by Thursday. 01/20: When seen this morning the patient is lethargic. He briefly opens his eyes to voice but does not respond any further. He is noted to move the feet spontaneously. 01/21: This afternoon the patient is awake and alert. He does interact readily and is verbalising a few words in Kiswahili. He is moving his upper extremities spontaneously and reaches for this practitioner's hand. 01/22: The patient is seen sitting up in a cardiac chair. He has the blankets up over his face and covering his head. He is seen spontaneously moving the upper extremities but does not interact this morning. 01/23: The patient is lethargic this morning. He briefly opened his eyes to voice. Nursing reports that prior to the patient being seen the flight crew transporting him home to [facility] had evaluated the patient. The Charge Nurse says he is working on the medications needed for the patient while he is being transported home. He is to be picked up tomorrow morning at 0830 and arrangements have already been made for the ambulance. System Review Comments Unable to obtain due to patient's lethargy. Exam Results 01/21/17 01/21/17 01/22/17 01/22/17 01/23/17 01/23/17 06:00 18:00 06:00 18:00 06:00 18:00 Intake Total 240 ml Output Total 950 ml 1450 ml 450 ml Balance -710 ml -1450 ml -450 ml Intake Oral 240 ml Output Urine Total 950 ml 1450 ml 450 ml # Bowel Movements 3 2 1 Vital Signs Date Time Temp Pulse Resp B/P (MAP) Pulse Ox O2 Delivery O2 Flow Rate FiO2 01/23/17 06:15 98.3 95 18 134/94 (107) 96 01/23/17 01:28 98.8 88 18 109/68 (82) 92 01/22/17 21:17 98.2 96 16 125/58 (80) 94 01/22/17 17:11 97.3 79 18 128/59 (82) 99 01/22/17 12:19 97.9 86 20 143/84 (103) 97 01/22/17 11:11 88 01/22/17 08:53 98.1 83 20 131/57 (81) 95 01/22/17 06:01 99.0 80 18 144/69 (94) 94 01/22/17 01:32 98.8 88 16 137/72 (93) 96 01/21/17 22:03 98.4 91 16 133/60 (84) 93 01/21/17 16:00 97.9 85 15 116/60 (78) 98 01/21/17 12:00 98.5 97 15 115/59 (77) 97 01/21/17 10:44 95 01/21/17 08:00 98.1 91 15 111/59 (76) 92 01/21/17 04:00 97.9 98 18 118/63 (81) 97 01/21/17 03:48 86 01/21/17 01:00 97.4 70 20 124/84 (97) 98 01/20/17 20:00 98.5 97 20 122/72 (89) 97 01/20/17 16:14 98.6 86 18 112/74 (87) 99 01/20/17 12:50 97.8 87 18 126/66 (86) 96 Physical Examination GENERAL: Patient lethargic, he briefly opens his eyes to voice but o/w doesn't interact, no evident distress. MUSCULOSKELETAL: Moves extremities to stimulation. NEUROLOGICAL: Lethargic. Opens eyes to voice. Nonverbal. Not following simple commands. Withdraws to noxious stimulation. Medical Decision Making Impression and Plan Impression/plan: 1. Traumatic brain injury. Most recent CT scan stable with resolving contusions, stable mild to moderate subdural fluid collections without significant mass effect. Mental status fluctuating throughout the day but overall stable over the past week. 2. Jane UTI. Treated. 12/13/16 follow-up urine culture growth at 48 hours 3. Hypertension, atrial fibrillation. Remains on Lopressor. 3. Recent seizures. He remains on Keppra and Dilantin. 4. Sacral decubitus ulcer. Continuing decubitus precautions, wound care, Santyl 5. Leukocytosis. Hematology following-workup in progress. 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 6. Diabetes. Remains on insulin sliding scale. 7. Respiratory insufficiency. Improved. Stable on room air Patient is lethargic today, brief eye opening, moves extremities to noxious stimulation. Patient leaving for airport tomorrow morning at 0830 to return home to [facility]. Medical management per Hospitalist. No active issues for Neurosurgery. He is able to be discharged from NSGY's perspective for transport back to [facility]. Brennon White Jan 23, 2017 09:46
[2017-01-23] MEDS ORDERED: DILA100C PO (09:52)
[2017-01-23] MEDS ORDERED: DETR2CAP PO (09:52)
[2017-01-23] MEDS ORDERED: FINA5TAB2 PO (09:52)
[2017-01-23] MEDS ORDERED: ONDA4INJ2 IV (09:52)
[2017-01-23] MEDS ORDERED: AMLO5 PO (09:52)
[2017-01-23] MEDS ORDERED: DEXTR50%P IV (09:52)
[2017-01-23] MEDS ORDERED: FURO40TA PO (09:52)
[2017-01-23] MEDS ORDERED: VENTAER INH (09:55)
[2017-01-23] MEDS ORDERED: DOCU100S PO (09:55)
[2017-01-23] MEDS ORDERED: LEVS0.123 PO (10:02)
[2017-01-23] MEDS ORDERED: PREV30TA3 PO (10:03)
[2017-01-23] MEDS ORDERED: METO-309 PO (10:06)
[2017-01-23 13:12] VITALS: BP 122/58; PULSE 82; RESP 20; TEMP 98.3; O2SAT 99
[2017-01-23 16:40] VITALS: PULSE 90
[2017-01-23 21:15] VITALS: BP 125/80; PULSE 64; RESP 21; TEMP 98.8; O2SAT 96
[2017-01-23] MEDS: TAMSULOSIN HCL 0.4 MG CAP PO SCH (23:55)
[2017-01-24] VITALS: BP 122/86; PULSE 67; RESP 20; TEMP 98.7; O2SAT 97
[2017-01-24 04:49] VITALS: BP 140/96; PULSE 88; RESP 18; TEMP 97.8; O2SAT 99
[2017-01-24] MEDS: levETIRAcetam 500 MG/5 ML UDC PO SCH (06:29)
[2017-01-24] MEDS: METOPROLOL TARTRATE 50 MG TAB PO SCH (06:29)
[2017-01-24 07:14] VITALS: PULSE 75
[2017-01-24] MEDS: PHENYTOIN SODIUM 100 MG CAP PO SCH (07:17)
[2017-01-24] MEDS: FUROSEMIDE 40 MG TAB PO SCH (07:17)
[2017-01-24] MEDS: amLODIPine BESYLATE 5 MG TAB PO SCH (07:18)
[2017-01-24] MEDS: FINASTERIDE 5 MG TAB PO SCH (07:18)
[2017-01-24] MEDS: LANSOPRAZOLE SOLUTAB 30 MG TAB NG SCH (07:18)
[2017-01-24] MEDS: TOLTERODINE TARTRATE 2 MG CAP LA PO SCH (07:18)
[2017-01-24] MEDS: MEGESTROL ACETATE SUSP 400 MG/10 ML CUP PO SCH (07:19)
[2017-01-24] MEDS: ARTIFICIAL TEARS OPTH SOLN 15 ML BTL EACH EYE SCH (07:23)
[2017-01-24] MEDS: POLYETHYLENE GLYCOL 17 GM PKG OG-TUBE SCH (07:23)
[2017-01-24] MEDS: INSULIN NovoLIN REGULAR SUPPLEMENTAL SCALE SQ SCH (07:24)
[2017-01-24] MEDS: SODIUM CHLORIDE 0.9% FLUSH 10 ML FLUSH IV FLUSH SCH (07:24)
[2017-01-24] MEDS: DOCUSATE SODIUM 100 MG/10 ML UDC PO SCH (07:24)
[2017-01-24] MEDS: CHLORHEXIDINE 0.12% (ORAL KIT) 15 ML CUP MT SCH (07:24)
[2017-01-24] MEDS: INSULIN DETEMIR 100 UNITS/ML VIAL SQ SCH (07:25)
== END 2017-01-24 07:37 | disposition short-term general hospital (02) | DRG 85 ==
LOC: NEPC 19:40 → NEDA 22:04 → N03A 11-10 01:03 → N05B 11-20 16:58 → N03B 11-21 11:22 → N05A 11-23 20:31
PROVIDERS: ADMIT Neurological Surgery; ATTEND Neurological Surgery
PROC: 6A550Z2 Pheresis of Platelets, Single (ICD-10-PCS; principal; 2016-11-09)
PROC: 5A1955Z Respiratory Ventilation, Greater than 96 Consecutive Hours (ICD-10-PCS; 2016-11-12)
PROC: 05HM33Z Insertion of Infusion Device into Right Internal Jugular Vein, Percutaneous Approach (ICD-10-PCS; 2016-11-12)
PROC: 0BH17EZ Insertion of Endotracheal Airway into Trachea, Via Natural or Artificial Opening (ICD-10-PCS; 2016-11-12)
PROC: 0T9B70Z Drainage of Bladder with Drainage Device, Via Natural or Artificial Opening (ICD-10-PCS; 2016-11-12)
PROC: 0T9B70Z Drainage of Bladder with Drainage Device, Via Natural or Artificial Opening (ICD-10-PCS; 2016-11-12)
DX: S06.5X1A Traumatic subdural hemorrhage with loss of consciousness of 30 minutes or less, initial encounter (principal); G93.41 Metabolic encephalopathy; S06.6X1A Traumatic subarachnoid hemorrhage with loss of consciousness of 30 minutes or less, initial encounter; J96.00 Acute respiratory failure, unspecified whether with hypoxia or hypercapnia; R56.1 Post traumatic seizures; L89.150 Pressure ulcer of sacral region, unstageable; N17.9 Acute kidney failure, unspecified; E87.3 Alkalosis; C95.90 Leukemia, unspecified not having achieved remission; E11.8 Type 2 diabetes mellitus with unspecified complications; I82.611 Acute embolism and thrombosis of superficial veins of right upper extremity; B37.49 Other urogenital candidiasis; J98.11 Atelectasis; E87.70 Fluid overload, unspecified; I48.91 Unspecified atrial fibrillation; D64.9 Anemia, unspecified; S06.1X1A Traumatic cerebral edema with loss of consciousness of 30 minutes or less, initial encounter; W10.8XXA Fall (on) (from) other stairs and steps, initial encounter; Y93.01 Activity, walking, marching and hiking; R11.10 Vomiting, unspecified; I10 Essential (primary) hypertension; I25.10 Atherosclerotic heart disease of native coronary artery without angina pectoris; N40.0 Benign prostatic hyperplasia without lower urinary tract symptoms; T83.031A Leakage of indwelling urethral catheter, initial encounter; Y73.8 Miscellaneous gastroenterology and urology devices associated with adverse incidents, not elsewhere classified; E83.39 Other disorders of phosphorus metabolism; E87.6 Hypokalemia; R13.19 Other dysphagia; R19.7 Diarrhea, unspecified; R47.02 Dysphasia; Y92.008 Other place in unspecified non-institutional (private) residence as the place of occurrence of the external cause; Z98.61 Coronary angioplasty status; Z87.891 Personal history of nicotine dependence; Z51.5 Encounter for palliative care; Z88.0 Allergy status to penicillin; Z79.84 Long term (current) use of oral hypoglycemic drugs
CPT/HCPCS: 31500; 36430; 36556; 36600; 70450; 70551; 71010; 72125; 74000; 74230; 76937; 80048; 80053; 80185; 80186; 80202; 81001; 82040; 82140; 82565; 82607; 82728; 82746; 82805; 82947; 82948; 83010; 83036; 83540; 83550; 83605; 83615; 83735; 83880; 83930; 84100; 84132; 84134; 84155; 84295; 84443; 84484; 85007; 85027; 85044; 85060; 85379; 85384; 85610; 85730; 86403; 86850; 86900; 86901; 87040; 87070; 87077; 87086; 87147; 87186; 87205; 87641; 87804; 93005; 93306; 93886; 93971; 94002; 94003; 94150; 94640; 94664; 94667; 94668; 95819; 96374; J0131; J0360; J0692; J1610; J1642; J1815; J1940; J1953; J1956; J2060; J2250; J2270; J2405; J2765; J3010; J3370; J3475; J3480; J7030; J7040; J7050; J7613; P9035; Q2009